=== PATIENT | female | born 1935 | race Caucasian/White ===

== ENCOUNTER 2017-06-30 12:35 | Inpatient (IN) | payer MEDICARE, SELFPAY ==
[2017-06-30] VITALS (10 sets, daily range): BP systolic 129–161; BP diastolic 54–75; PULSE 44–64; RESP 16–21; TEMP 36.6–36.7; O2SAT 94–99; BMI 39.9; BMI 39.7
--- NOTE | 2017-06-30 12:39 | EKG12_ITS ---
Test Reason : CP Blood Pressure : / mmHG Vent. Rate : 058 BPM Atrial Rate : 058 BPM P-R Int : 268 ms QRS Dur : 134 ms QT Int : 488 ms P-R-T Axes : 028 -15 117 degrees QTc Int : 479 ms Sinus bradycardia with 1st degree A-V block Non-specific intra-ventricular conduction block Abnormal ECG Confirmed by ERIN JIMENEZ, MARLENE ([id number]), manuscript editor SAMEERA CARNEY ([id number]) on 07/05/2017 2:07:37 PM Referred By: ABI Confirmed By:MARLENE KHAN MD
--- NOTE | 2017-06-30 12:39 | RAD_ITS ---
STUDY: X-RAY CHEST REASON FOR EXAM: Female, 82 years old. Chest pressure and shortness of breath. TECHNIQUE: Single AP portable view of the chest. COMPARISON: Comparison is made with prior study dated November 15, 2016. FINDINGS: EKG electrodes are seen. Mild degree of increased interstitial markings at the lung bases suggestive of scarring. This is improved since prior study. Hyperinflation. There is no demonstrated pleural abnormality. Sternal cerclage wires and vascular clips are present from a prior sternotomy and coronary artery bypass graft procedure (CABG). Normal mediastinum and seun. Normal visualized pulmonary arteries. There is atherosclerotic tortuosity of the aortic arch and descending thoracic aorta. There are diffuse degenerative changes of the visualized thoracic spine. There is degenerative osteoarthritis of the bilateral shoulders. There is no demonstrated abnormality of the visualized soft tissue structures of the upper abdomen. RAD/Chest 1 View (Portable) IMPRESSION: Mild increased interstitial markings suggestive of scarring. This has improved as compared to prior study. Electronically Signed: Manish Zapata MD at 13:07 EDT Tel [phone], Service support ,
[2017-06-30] MEDS: Aspirin 81 MG TAB.CHEW 324 MG PO (12:55)
[2017-06-30 13:05] LABS: Absolute Lymphocyte Count 1.65 X10^3/ul (0.83-4.51); Absolute Neutrophil Count 6.3 X10^3/uL (2.0-7.7); Basophil# 0.04 X10^3/uL; Basophil% 0.4 % (0-1); Eosinophils% 1.1 % (0-5); Hematocrit 34.6 % (37-47); Lymphocyte # 1.65 X10^3/ul (4.0); Lymphocyte % 18.3 % (19-41); Mean Corp Hgb Conc 31.8 g/gl (32-36); Mean Corpuscular Hgb 30.7 pg (27.0-32.0); Mean Corpuscular Volume 96.6 fL (81-99); Mean Platelet Vol. 12.3 fl (6.2-12.0); Monocyte# 0.95 X10^3/uL; Monocyte% 10.6 % (0-10); Neutrophil # 6.25 X10^3/uL (2.7-7.7); Neutrophil % 69.5 % (47-70); Platelet Count 216 K/mm3 (150-450); RBC Distribution Width CV 13.2 % (11.6-14.6); RBC Distribution Width SD 45.8 fl (35.1-43.9); Red Blood Count 3.58 M/mm3 (4.2-5.4)
[2017-06-30 13:06] LABS: POSITIVE COUNT NO; POSITIVE DIFFERENTIAL NO; POSITIVE MORPHOLOGY NO
[2017-06-30 13:19] LABS: Anion Gap 10 (5-15); BUN 37 mg/dL (7-18); BUN/Creat Ratio 23.3 RATIO (10-20); Calcium,Total 9.2 mg/dL (8.5-10.1); Chloride 105 mmol/L (98-107); Creatinine, Serum 1.59 mg/dL (0.55-1.02); EST Glomerular Filtration Rate 33 mL/min (>60); Est Glom Filt Rate - Afr Amer 40 mL/min (>60); Estimated Creatinine Clearance 20.27 ml/min; Glucose 132 mg/dL (74-106); Potassium 5.4 mmol/L (3.5-5.1); Sodium Level 140 mmol/L (136-145)
--- NOTE | 2017-06-30 13:36 | ED.VISSUMM ---
- ER Visit Summary Date of Service: 06/30/17 Chief Complaint: Chest pain History of Present Illness: The patient is a 82 F who is in the process of transitioning from Dr. Keith to Dr. Mason. Dr. Matteo West III is her primary care physician. She reports that 5 days ago at [employer] her had a syncopal episode and she was very upset. She developed a substernal heaviness that was 9 out of 10 severity. This lasted several hours. She was short of breath with this. She denies any diaphoresis, nausea, or vomiting. Patient reports that over the course the past 5 days she has an intermittent substernal pressure the last minutes at a time. Is 10 out of 10 at worst and she is pain-free currently. Is worsened by exertion or nervousness. States that it is relieved by rest. She reports that it makes her short of breath a tiny bit nauseated. No vomiting or diaphoresis. Physical Examination: Vitals: Stable. Afebrile. General: Well-nourished and well-developed. Head: Normocephalic atraumatic. Neck: Supple, no lymphadenopathy. No JVD. Nontender. Cardiovascular: Cardiac regular rhythm. No murmurs. Respiratory: No respiratory distress. Clear to auscultation bilaterally. Abdominal: Soft, nontender, nondistended, normal bowel sounds. No guarding, rebound, or peritoneal signs. Back: Nontender. Extremities: Nontender, 1+ pitting edema of her lower extremities bilaterally. Skin: Normal color, no rash. Neurologic: Alert and oriented ?3. Cranial nerves II through XII are intact. Normal strength and sensation. Psych: Normal affect. Test Results: EKG is sinus bradycardia at 58 with a first-degree AV block. She has T-wave inversions in leads I, aVL, V5, and V6. This is a change from November 152016. Chest x-ray shows chronic changes. CBC is remarkable for a hemoglobin of 11 and hematocrit of 34.6. Chem-7 is marked for potassium of 5.4, BUN of 37, creatinine 1.59, and glucose of 132. Initial troponin is 0.203. Emergency Department Course and Treatment: Patient was treated with aspirin. She is resting comfortably and is pain-free. Treatment Plan: Patient was discussed with Dr. Carpenter and Dr. Mason. She will be admitted to the hospital for further evaluation and treatment. Disposition: Admitted in serious condition. Impression: 1. Chest pain. 2. Indeterminate troponin. 3. DARRELL score 5. 4. Coagulopathy on Eliquis. This note was generated with [employer] dictation software. It may contain incorrect words, spelling, and punctuation that were not noted in review of the chart prior to signing ED Disposition - Plan for ED Patient: Chief Complaint: Shortness of Breath Referrals: Matteo West III, MD [Primary Care Provider] -
--- NOTE | 2017-06-30 13:39 | ED.DCSUM_ITS ---
- ER Visit Summary Date of Service: 06/30/17 Chief Complaint: Chest pain History of Present Illness: The patient is a 82 F who is in the process of transitioning from Dr. Keith to Dr. Mason. Dr. Matteo West III is her primary care physician. She reports that 5 days ago at [employer] her had a syncopal episode and she was very upset. She developed a substernal heaviness that was 9 out of 10 severity. This lasted several hours. She was short of breath with this. She denies any diaphoresis, nausea, or vomiting. Patient reports that over the course the past 5 days she has an intermittent substernal pressure the last minutes at a time. Is 10 out of 10 at worst and she is pain-free currently. Is worsened by exertion or nervousness. States that it is relieved by rest. She reports that it makes her short of breath a tiny bit nauseated. No vomiting or diaphoresis. Physical Examination: Vitals: Stable. Afebrile. General: Well-nourished and well-developed. Head: Normocephalic atraumatic. Neck: Supple, no lymphadenopathy. No JVD. Nontender. Cardiovascular: Cardiac regular rhythm. No murmurs. Respiratory: No respiratory distress. Clear to auscultation bilaterally. Abdominal: Soft, nontender, nondistended, normal bowel sounds. No guarding, rebound, or peritoneal signs. Back: Nontender. Extremities: Nontender, 1+ pitting edema of her lower extremities bilaterally. Skin: Normal color, no rash. Neurologic: Alert and oriented ?3. Cranial nerves II through XII are intact. Normal strength and sensation. Psych: Normal affect. Test Results: EKG is sinus bradycardia at 58 with a first-degree AV block. She has T-wave inversions in leads I, aVL, V5, and V6. This is a change from November 152016. Chest x-ray shows chronic changes. CBC is remarkable for a hemoglobin of 11 and hematocrit of 34.6. Chem-7 is marked for potassium of 5.4 , BUN of 37, creatinine 1.59, and glucose of 132. Initial troponin is 0.203. Emergency Department Course and Treatment: Patient was treated with aspirin. She is resting comfortably and is pain-free. Treatment Plan: Patient was discussed with Dr. Carpenter and Dr. Mason. She will be admitted to the hospital for further evaluation and treatment. Disposition: Admitted in serious condition. Impression: 1. Chest pain. 2. Indeterminate troponin. 3. DARRELL score 5. 4. Coagulopathy on Eliquis. This note was generated with [employer] dictation software. It may contain incorrect words, spelling, and punctuation that were not noted in review of the chart prior to signing ED Disposition - Plan for ED Patient: Chief Complaint: Shortness of Breath Referrals: Matteo West III, MD [Primary Care Provider] -
--- NOTE | 2017-06-30 14:26 | HP.PCM_ITS ---
Problem List (1) Atypical chest pain Status: Acute (2) HTN (hypertension) Status: Acute (3) Atrial fibrillation Status: Acute (4) CAD (coronary artery disease) Status: Chronic (5) Status post aorto-coronary artery bypass graft Status: Chronic (6) Status post bioprosthetic AVR Status: Chronic History of Present Illness Date of Admission: 06/30/17 Chief Complaint: Chest pressure for last 5 days The patient is a 82 year old F with extensive cardiac history including coronary artery disease status post stent in 2014 in the LAD, two-vessel CABG and bioprosthetic AVR in 12/2015, paroxysmal A. fib on Eliquis came to ER with chest pressure since Tuesday. Patient further said she was very upset when her had a syncope episode and felt like could not breathe chest pressure. Chest pressure is more on the right side feels heavy but gets exacerbated on mild exertion along with shortness of breath. She denies syncope, diaphoresis. Took sublingual nitrate and had mild relief. She denies any SC/severe anginal pains after cardiac surgery and perhaps has not stress or echo since cardiac surgery. She has chronic cough almost 1 and half years since cardiac surgery. No smoking history. Denies fever chills or URI symptoms. In ED, EKG shows sinus bradycardia with first-degree AV block, T inversion in lateral leads. Previous EKG in our record in November 2016 shows A. fib with T inversion in 1-lead V5. Troponin slightly elevated. [] Past Medical History Past Medical History (Chronic Problems): Chronic Problems Status post aorto-coronary artery bypass graft (Chronic) Status post bioprosthetic AVR (Chronic) CAD (coronary artery disease) (Chronic) CAD (coronary artery disease) (Chronic) Allergies atorvastatin [From Lipitor] Adverse Reaction (Verified 06/30/17 12:41) Pain in joints niacin Adverse Reaction (Verified 06/30/17 12:41) Pain in joints pregabalin [From Lyrica] Adverse Reaction (Verified 06/30/17 12:41) Other simvastatin [From Zocor] Adverse Reaction (Verified 06/30/17 12:41) Pain in joints Home Medications: Ambulatory Orders Medication Instructions Recorded Calcium Carbonate/Vitamin D3 1 each PO DAILY 02/24/16 [Calcium 500-Vit D3 600 Tablet] Clopidogrel Bisulfate [Plavix] 75 mg PO DINNER 02/24/16 Docusate Sodium [Colace] 240 mg PO BID 02/24/16 Magnesium 500 mg PO BID 02/24/16 Metoprolol(XL)Succ [Toprol Xl 25 mg PO DAILY 02/24/16 (Beta Kenisha)] Multivitamin [Multiple Vitamins] 1 each PO DAILY 02/24/16 Nitroglycerin [Nitrostat] 0.4 mg SUBLINGUAL Q5M PRN 02/24/16 [place]-3S/Dha/Epa/Fish Oil/D3 [Fish 1 each PO DAILY 02/24/16 Oil-Vit D3 Softgel] Omeprazole 20 mg PO DAILY 02/24/16 Lisinopril [Zestril] 10 mg PO QHS 11/15/16 Melatonin 10 mg PO QHS 11/15/16 Apixaban [Eliquis] 5 mg PO BID #60 tablet 11/16/16 Amiodarone HCl [Cordarone] 200 mg PO DAILY 06/30/17 Furosemide [Lasix] 20 mg PO BID 06/30/17 Lorazepam [Ativan] 0.5 mg PO BID PRN PRN 06/30/17 Surgical History: coronary bypass surgery Psychiatric History: No pertinent psych hx Smoking Status: Never smoker - *Family History Maternal History Items: Diabetes, Heart Disease Review of Systems Constitutional: Denies: Chills, Fever, Weight Change HEENT: Denies: Head Aches, Sinus Congestion, Sinus Drainage Cardiovascular: Reports: Chest Pain, Chest Pressure. Denies: Palpitations Respiratory: Reports: Cough, Shortness of breath upon exertion. Denies: Shortness of breath at rest, Sputum production Gastrointestinal: Denies: Abdominal Pain, Nausea, Vomiting Genitourinary: Denies: Dysuria Musculoskeletal: Denies: Joint Pain, Joint Tenderness Skin: Reports: - - Varicose veins. Denies: Rash, Wounds Neurological: Denies: Numbness, Tingling, Focal weakness Psychiatric: Denies: Anxiety, Depression, Homicidal Ideations, Suicidal Ideations Hematologic/ Lymphatic: Denies: Easy Bruising, Easy Bleeding VTE Information - Inpt Only VTE Present on Admission: No VTE Mechan Device Prophylaxis: None VTE Pharm Prophylaxis ordered?: No Reason prophylaxis not ordered:: Procedure Not Indicated - Already on Eliquis Patient Problems: Active and Suspected Problems Atypical chest pain (Acute) - Physical Exam General: Alert, Oriented x3, Cooperative HEENT: Atraumatic, PERRLA, EOMI, Normocephalic Neck: Supple, No JVD, Negative Carotid Bruits Lungs: Clear to auscultation, Normal air movement Cardiovascular: Regular rate, Regular Rhythm, Normal S1, Normal S2, No murmurs Abdomen: Bowel Sounds Present, Soft, Non Tender, Non-Distended Extremities: No cyanosis, Capillary Refill Less than 3 Seconds, Edema Skin: No rashes, No breakdown Musculoskeletal: No Tenderness to Palpation of Joints or Extremities Neurological: Cranial nerves II-XII grossly intact Psych/Mental Status: Normal Affect, Appropriate Vital Signs Temp Pulse Resp BP Pulse Ox 98.0 F 53 L 21 H 156/75 H 96 06/30/17 12:36 06/30/17 13:49 06/30/17 13:49 06/30/17 13:49 06/30/17 13:49 Oxygen Delivery Method Room Air Weight: 204 lb 2.369 oz Body Mass Index (BMI) 39.9 Laboratory Tests Past 24 Hrs 06/30/17 06/30/17 12:45 12:45 WBC 9.0 RBC 3.58 L Hgb 11.0 L Hct 34.6 L MCV 96.6 MCH 30.7 MCHC 31.8 L RDW 13.2 RDW Differential 45.8 H Plt Count 216 MPV 12.3 H Immature Gran % (Auto) 0.100 Neut % (Auto) 69.5 Lymph % (Auto) 18.3 L [place] % (Auto) 10.6 H Eos % (Auto) 1.1 Baso % (Auto) 0.4 Absolute Neuts (auto) 6.3 Absolute Lymphs (auto) 1.65 Total Counted Not Reportable Sodium 140 Potassium 5.4 H Chloride 105 Carbon Dioxide 25.0 Anion Gap 10 BUN 37 H Creatinine 1.59 H Estim Creat Clear Calc 20.27 Est GFR (MDRD) Af Amer 40 L Est GFR (MDRD) Non-Af 33 L BUN/Creatinine Ratio 23.3 H Glucose 132 H Calcium 9.2 Troponin I 0.203 H Assessment/Plan Active and Suspected Problems Atypical chest pain (Acute) The patient is a 82 year old F with extensive cardiac history including coronary artery disease status post stent in 2014 in the LAD, two-vessel CABG and bioprosthetic AVR in 12/2015, paroxysmal A. fib on Eliquis came to ER with chest pressure since Tuesday. Patient further said she was very upset when her had a syncope episode and felt like could not breathe chest pressure. Chest pressure is more on the right side feels heavy but gets exacerbated on mild exertion along with shortness of breath. She denies syncope, diaphoresis. Took sublingual nitrate and had mild relief. She denies any SC/severe anginal pains after cardiac surgery and perhaps has not stress or echo since cardiac surgery. She has chronic cough almost 1 and half years since cardiac surgery. No smoking history. Denies fever chills or URI symptoms. In ED, EKG shows sinus bradycardia with first-degree AV block, T inversion in lateral leads. Previous EKG in our record in November 2016 shows A. fib with T inversion in 1-lead V5. Troponin slightly elevated. Chest x-ray shows mild degree of increased interstitial markings at lung bases suggestive of scarring which is improved since prior study. Clinically, no history of COPD and smoking. 1. Atypical chest pressure with high suspicion of unstable angina: Patient is being admitted in PCU. Serial cardiac enzymes. EKG after [address] Chen already talked to Dr. gibson. Patient wants to transition her cardiac care from Dr. Keith to Dr. gibson as former is going to retire. Continue cardiac medications including Plavix, Eliquis, lisinopril and metoprolol. Patient is allergic to statin 2. Coronary artery disease status post two-vessel CABG, status post bioprosthetic porcine AVR, paroxysmal A. fib: Patient had echo in December 2015. We will try to get recent cardiac testing from Dr. Keith office. 3. Acute kidney injury with probably elevated creatinine from Lasix: Hold the Lasix. IV fluid normal saline at 75/h. Currently, 5.4, BUN 37, creatinine is 1.59, previous BUN 17 and creatinine 0.95 normal in November 2016 4. mild hyperkalemia: 5.4; probably from lisinopril. Kayexalate a small dose 15 g ordered. Repeat K in evening. Repeat BMP tomorrow a.m.. will hold lisinopril until his normal Other comorbidities include hypertension: Blood pressure is slightly elevated. Hydralazine p.o. until potassium is normal and lisinopril can be resumed DVT prophylaxis: Patient is already on Eliquis. Laboratory Results 06/30/17 12:45: WBC 9.0, RBC 3.58 L, Hgb 11.0 L, Hct 34.6 L, MCV 96.6, MCH 30.7 , MCHC 31.8 L, RDW 13.2, RDW Differential 45.8 H, Plt Count 216, MPV 12.3 H, Immature Gran % (Auto) 0.100, Neut % (Auto) 69.5, Lymph % (Auto) 18.3 L, [place] % (Auto) 10.6 H, Eos % (Auto) 1.1, Baso % (Auto) 0.4, Absolute Neuts (auto) 6.3, Absolute Lymphs (auto) 1.65, Total Counted Not Reportable 06/30/17 12:45: Sodium 140, Potassium 5.4 H, Chloride 105, Carbon Dioxide 25.0, Anion Gap 10, BUN 37 H, Creatinine 1.59 H, Estim Creat Clear Calc 20.27, Est GFR (MDRD) Af Amer 40 L, Est GFR (MDRD) Non-Af 33 L, BUN/Creatinine Ratio 23.3 H , Glucose 132 H, Calcium 9.2, Troponin I 0.203 H Clinical Impression(s) from Imaging Studies Chest X-Ray 06/30/17 12:39 IMPRESSION: Mild increased interstitial markings suggestive of scarring. This has improved as compared to prior study. Electronically Signed: Manish Zapata MD at 13:07 EDT Tel [phone], Service support , Code Visit OBSV E&M: [id number] Initial observation care L3
--- NOTE | 2017-06-30 14:42 | EKG12_ITS ---
Test Reason : NEW ADMIT Blood Pressure : / mmHG Vent. Rate : 053 BPM Atrial Rate : 053 BPM P-R Int : 276 ms QRS Dur : 120 ms QT Int : 510 ms P-R-T Axes : 000 203 007 degrees QTc Int : 478 ms Suspect arm lead reversal, interpretation assumes no reversal Sinus bradycardia with 1st degree A-V block Lateral infarct (cited on or before 15-NOV-2016) Inferior infarct , age undetermined Abnormal ECG When compared with ECG of 15-NOV-2016 09:27, Significant changes have occurred Confirmed by MANPREET JIMENEZ, OZ ([id number]), communications editor SAMEERA CARNEY ([id number]) on 07/04/2017 3:06:00 PM Referred By: SHAE Confirmed By:OZ CASE MD
[2017-06-30] MEDS: 0.9% Normal Saline 1,000 ML 75 ML IV (15:44)
[2017-06-30] MEDS: 0.9% NaCl Peripheral Flush Adult/Peds IV ×2 (15:46→21:53)
[2017-06-30] MEDS: Sodium Polystyrene Sulfonate 15 GM/60 ML UDC PO (15:46)
--- NOTE | 2017-06-30 15:48 | PCM.CONS.C ---
Reason for Consult Date of Consultation: 06/30/17 Reason for Consultation: Chest pressure. History of Present Illness: The patient is a 82 year old F with extensive cardiac history including coronary artery disease status post stent in 2014 in the LAD, two-vessel CABG and bioprosthetic AVR in 12/2015, paroxysmal A. fib on Eliquis came to ER with chest pressure since Tuesday. The patient apparently got upset due to an event that happened to the and started getting chest discomfort described as a pressure-like sensation radiating to the right side of her neck. She says that she is also been getting short of breath with minimal exertion over the last few days to weeks. She did take a sublingual nitroglycerin pill with some relief. She presented to the emergency room her blood pressure was noted to be somewhat elevated and blood work was done which demonstrated a mildly elevated troponin with no EKG changes. Cardiology was called from the emergency room and a decision was made to admit her. Currently she does not have any chest discomfort. [] Past Medical History Allergies/Adverse Reactions: Allergies atorvastatin [From Lipitor] Adverse Reaction (Verified 06/30/17 12:41) Pain in joints niacin Adverse Reaction (Verified 06/30/17 12:41) Pain in joints pregabalin [From Lyrica] Adverse Reaction (Verified 06/30/17 12:41) Other simvastatin [From Zocor] Adverse Reaction (Verified 06/30/17 12:41) Pain in joints Home Medications: Ambulatory Orders Medication Instructions Recorded Calcium Carbonate/Vitamin D3 1 each PO DAILY 02/24/16 [Calcium 500-Vit D3 600 Tablet] Clopidogrel Bisulfate [Plavix] 75 mg PO DINNER 02/24/16 Docusate Sodium [Colace] 240 mg PO BID 02/24/16 Magnesium 500 mg PO BID 02/24/16 Multivitamin [Multiple Vitamins] 1 each PO DAILY 02/24/16 Nitroglycerin [Nitrostat] 0.4 mg SUBLINGUAL Q5M PRN 02/24/16 [place]-3S/Dha/Epa/Fish Oil/D3 [Fish 1 each PO QODAY 02/24/16 Oil-Vit D3 Softgel] Omeprazole 20 mg PO DAILY 02/24/16 Lisinopril [Zestril] 10 mg PO QHS 11/15/16 Melatonin 10 mg PO QHS 11/15/16 Apixaban [Eliquis] 5 mg PO BID #60 tablet 11/16/16 Amiodarone HCl [Cordarone] 200 mg PO DAILY 06/30/17 Benzonatate [Tessalon Perle] 100 mg PO TID PRN 06/30/17 Furosemide [Lasix] 20 mg PO BID 06/30/17 Levothyroxine [Synthroid] 25 mcg PO DAILY 06/30/17 Lorazepam [Ativan] 0.5 mg PO BID PRN PRN 06/30/17 Metoprolol Tartrate [Lopressor 25 mg PO DAILY 06/30/17 (beta marivel)] Past Medical History (Chronic Problems): Chronic Problems Status post aorto-coronary artery bypass graft (Chronic) Status post bioprosthetic AVR (Chronic) CAD (coronary artery disease) (Chronic) CAD (coronary artery disease) (Chronic) Surgical History: coronary bypass surgery Psychiatric History: No pertinent psych hx - *Family History Maternal History Items: Diabetes, Heart Disease Smoking Status: Never smoker Alcohol: None Drugs: None Review of Systems - Review of Systems General: Denies: Fever, Night Sweats, Fatigue Cardiovascular: Reports: Chest Discomfort with Exertion, Shortness of Breath, Shortness of Breath at Rest, Shortness of Breath with Exertion. Denies: Chest Discomfort, Orthopnea, PND, Peripheral Edema, Palpitations, Lightheadedness, Dizziness, Near Syncope, Syncope Respiratory: Denies: Cough, Sputum Production, Hemoptysis Gastrointestinal: Denies: Hematemesis, Hematochezia, Melena Genitourinary: Denies: Dysuria, Hematuria Skin: Denies: Rash Subjectve: Pleasant lady in no apparent distress Objective: Vital Signs Temp Pulse Resp BP Pulse Ox 97.9 F 63 16 148/59 H 97 06/30/17 14:15 06/30/17 14:15 06/30/17 14:15 06/30/17 14:15 06/30/17 14:15 Oxygen Delivery Method Room Air Weight: 203 lb 7.787 oz Body Mass Index (BMI) 39.7 General: Awake, Alert, Oriented x 3 HEENT: PERRL, EOMI, Sclera Non Icteric Neck: Supple, Good ROM, No Lymph Node Enlargement Lungs: Clear to auscultation Cardiovascular: Regular Rhythm, Normal S1, Normal S2, No Rubs, No Gallops Murmur Murmur: Grade 1/6, Early Systolic, LLSB Vascular: No Carotid Bruits, Normal Femoral Pulses, Normal Radial Pulses, Normal Dorsalis Pedal Pulse, Normal Posterior Tibial Pulses Abdomen: Bowel Sounds Present, Soft, Non Tender, No HSM, No Organomegaly Extremities: No Cyanosis, No Clubbing, No edema Neurological: No Focal Motor or Sensory Deficit Rhythm: EKG: Normal sinus rhythm with a rate of 53 bpm and 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 Assessment/Plan 1. Chest pain-new onset angina. Patient presents with chest discomfort which is concerning for new onset angina. She did have concomitant elevation of her blood pressure but with her abnormal cardiac enzymes my recommendation would be for us to further evaluate the above with a cardiac catheterization. Her bypass records will be obtained from her primary plumber gasfitter's office and after 24-48 hours of the Eliquis the above would be performed. I discussed this with the patient and her and daughter and they understand and I in agreement. I did suggest to them that more than likely this would have to be Tuesday. Certainly if she continues to have chest discomfort at rest with EKG changes then we may need to have this performed sooner. 2. Hypertension Her blood pressure appears to be somewhat elevated. She does have mild renal dysfunction and I recommend holding off on her FRANCISCO inhibitor at this particular time a calcium channel marivel such as amlodipine can be substituted to improve her blood pressure she would also continue on her low dose of the beta-marivel. 3. Paroxysmal atrial fibrillation She does have a history of paroxysmal atrial fibrillation. She is maintaining sinus rhythm at this time on the amiodarone as well as the beta-marivel. She is on Eliquis and I would recommend holding off on the Eliquis at this time until her coronary anatomy has been further evaluated. 4. Valvular heart disease status post aortic valve replacement She is status post aortic valve replacement 2 years ago. I do not think that this is contributing to her current problems but it may be good idea to obtain an echocardiogram to assess the gradient across the aortic valve. This can be compared to any previous echocardiogram that was performed. Depending on the findings further recommendations will be made. 5. Risk factor modification With a history of coronary artery disease she needs to be under risk factor modification with lipid lowering aggressively as well as dietary modification. I have discussed the above with her as well. Thank you for allowing me to participate in the care of your patient. Please don't hesitate to call if any issues arise
--- NOTE | 2017-06-30 15:57 | ECHOD_ITS ---
Reason For Study: MURMUR Procedure This was a 2D Doppler, Color Flow transthoracic echocardiogram. Exam performed portable in patient room. Left Ventricle Normal LV size. The estimated ejection fraction is 45 %. Mild segmental systolic dysfunction (see wall motion). Transmitral diastolic flow velocities suggest severe (stage 3) diastolic dysfunction. [place] : Hypokinetic. Mid-anteroseptal : Hypokinetic. Mid-Anterior : Hypokinetic. The rest of the wall segments are normal. Right Ventricle Normal RV size. Normal systolic function. Atria The left atrium is moderately enlarged. The right atrium is mildly enlarged. Mitral Valve There is moderate mitral annular calcification. Mild-Moderate (1-2+) eccentric mitral valve insufficiency. Tricuspid Valve Normal tricuspid valve. Mild to moderate (1-2+) tricuspid valve insufficiency. Pulmonary artery systolic pressure is 48 mmHg. Aortic Valve There is no aortic stenosis. Mild-Moderate (1-2+) eccentric aortic valve insufficiency. Bioprosthetic aortic valve. Pulmonic Valve Normal pulmonic valve. Mild-Moderate (1-2+) pulmonic valve insufficiency. Great Vessels Normal aortic root. The pulmonary artery is normal size. Inferior vena cava collapse with respiration. Pericardium/Pleural No pericardial effusion. MMode/2D Measurements & Calculations LVIDd: 5.5 cm IVSd: 0.94 cm LVOT diam: 2.2 cm LVIDs: 3.5 cm LVPWd: 1.0 cm LVOT area: 3.6 cm2 RVDd: 4.1 cm FS: 35.9 % Ao root diam: 2.7 cm LAV(MOD-bp): 85.9 ml LA A4 area: 29.1 cm2 LAV(MOD-bp) Indexed: 45.7 ml/m2 LAV(MOD-sp2): 61.3 ml LAV(MOD-sp4): 94.8 ml RA A4 area: 22.9 cm2 Doppler Measurements & Calculations MV E max [place]: 137.1 cm/sec Lat Peak E' [place]: 3.1 cm/sec Med Peak E' [place]: 2.8 cm/sec MV A max [place]: 70.2 cm/sec E/E' lat: 44.2 E/E' med: 48.8 MV E/A: 2.0 Ao V2 max: 188.3 cm/sec AI max [place]: 176.9 cm/sec LV V1 max: 110.9 cm/sec Ao max P.2 mmHg AI max P.6 mmHg LV V1 max P.9 mmHg Ao V2 mean: 119.1 cm/sec AI dec slope: 121.5 cm/sec2 LV V1 mean P.5 mmHg Ao mean P.6 mmHg AI P1/2t: 426.5 msec LV V1 mean: 73.7 cm/sec Ao V2 VTI: 38.3 cm LV V1 VTI: 23.9 cm CATHERINE(I,D): 2.3 cm2 CATHERINE(V,D): 2.1 cm2 SV(LVOT): 87.0 ml PA V2 max: 96.3 cm/sec PI end-d cub[place]: 117.9 cm/sec TR max cub[place]: 328.4 cm/sec TR max P.1 mmHg Interpretation Summary Normal LV size. The estimated ejection fraction is 45 %. Mild segmental systolic dysfunction (see wall motion). Transmitral diastolic flow velocities suggest severe (stage 3) diastolic dysfunction The left atrium is moderately enlarged. Mild to moderate (1-2+) tricuspid valve insufficiency. Bioprosthetic aortic valve. Mild-Moderate (1-2+) eccentric aortic valve insufficiency. Ordering Physician: Jose Mason Referring Physician: ADAIR RODRIGUEZ Performed By: Jazzy Skelton, LINA, RVT
--- NOTE | 2017-06-30 15:59 | CON.PCM_ITS ---
Reason for Consult Date of Consultation: 06/30/17 Reason for Consultation: Chest pressure. History of Present Illness: The patient is a 82 year old F with extensive cardiac history including coronary artery disease status post stent in 2014 in the LAD, two-vessel CABG and bioprosthetic AVR in 12/2015, paroxysmal A. fib on Eliquis came to ER with chest pressure since Tuesday. The patient apparently got upset due to an event that happened to the and started getting chest discomfort described as a pressure-like sensation radiating to the right side of her neck. She says that she is also been getting short of breath with minimal exertion over the last few days to weeks. She did take a sublingual nitroglycerin pill with some relief. She presented to the emergency room her blood pressure was noted to be somewhat elevated and blood work was done which demonstrated a mildly elevated troponin with no EKG changes. Cardiology was called from the emergency room and a decision was made to admit her. Currently she does not have any chest discomfort. [] Past Medical History Allergies/Adverse Reactions: Allergies atorvastatin [From Lipitor] Adverse Reaction (Verified 06/30/17 12:41) Pain in joints niacin Adverse Reaction (Verified 06/30/17 12:41) Pain in joints pregabalin [From Lyrica] Adverse Reaction (Verified 06/30/17 12:41) Other simvastatin [From Zocor] Adverse Reaction (Verified 06/30/17 12:41) Pain in joints Home Medications: Ambulatory Orders Medication Instructions Recorded Calcium Carbonate/Vitamin D3 1 each PO DAILY 02/24/16 [Calcium 500-Vit D3 600 Tablet] Clopidogrel Bisulfate [Plavix] 75 mg PO DINNER 02/24/16 Docusate Sodium [Colace] 240 mg PO BID 02/24/16 Magnesium 500 mg PO BID 02/24/16 Multivitamin [Multiple Vitamins] 1 each PO DAILY 02/24/16 Nitroglycerin [Nitrostat] 0.4 mg SUBLINGUAL Q5M PRN 02/24/16 [place]-3S/Dha/Epa/Fish Oil/D3 [Fish 1 each PO QODAY 02/24/16 Oil-Vit D3 Softgel] Omeprazole 20 mg PO DAILY 02/24/16 Lisinopril [Zestril] 10 mg PO QHS 11/15/16 Melatonin 10 mg PO QHS 11/15/16 Apixaban [Eliquis] 5 mg PO BID #60 tablet 11/16/16 Amiodarone HCl [Cordarone] 200 mg PO DAILY 06/30/17 Benzonatate [Tessalon Perle] 100 mg PO TID PRN 06/30/17 Furosemide [Lasix] 20 mg PO BID 06/30/17 Levothyroxine [Synthroid] 25 mcg PO DAILY 06/30/17 Lorazepam [Ativan] 0.5 mg PO BID PRN PRN 06/30/17 Metoprolol Tartrate [Lopressor 25 mg PO DAILY 06/30/17 (beta marivel)] Past Medical History (Chronic Problems): Chronic Problems Status post aorto-coronary artery bypass graft (Chronic) Status post bioprosthetic AVR (Chronic) CAD (coronary artery disease) (Chronic) CAD (coronary artery disease) (Chronic) Surgical History: coronary bypass surgery Psychiatric History: No pertinent psych hx - *Family History Maternal History Items: Diabetes, Heart Disease Smoking Status: Never smoker Alcohol: None Drugs: None Review of Systems - Review of Systems General: Denies: Fever, Night Sweats, Fatigue Cardiovascular: Reports: Chest Discomfort with Exertion, Shortness of Breath, Shortness of Breath at Rest, Shortness of Breath with Exertion. Denies: Chest Discomfort, Orthopnea, PND, Peripheral Edema, Palpitations, Lightheadedness, Dizziness, Near Syncope, Syncope Respiratory: Denies: Cough, Sputum Production, Hemoptysis Gastrointestinal: Denies: Hematemesis, Hematochezia, Melena Genitourinary: Denies: Dysuria, Hematuria Skin: Denies: Rash Subjectve: Pleasant lady in no apparent distress Objective: Vital Signs Temp Pulse Resp BP Pulse Ox 97.9 F 63 16 148/59 H 97 06/30/17 14:15 06/30/17 14:15 06/30/17 14:15 06/30/17 14:15 06/30/17 14:15 Oxygen Delivery Method Room Air Weight: 203 lb 7.787 oz Body Mass Index (BMI) 39.7 General: Awake, Alert, Oriented x 3 HEENT: PERRL, EOMI, Sclera Non Icteric Neck: Supple, Good ROM, No Lymph Node Enlargement Lungs: Clear to auscultation Cardiovascular: Regular Rhythm, Normal S1, Normal S2, No Rubs, No Gallops Murmur Murmur: Grade 1/6, Early Systolic, LLSB Vascular: No Carotid Bruits, Normal Femoral Pulses, Normal Radial Pulses, Normal Dorsalis Pedal Pulse, Normal Posterior Tibial Pulses Abdomen: Bowel Sounds Present, Soft, Non Tender, No HSM, No Organomegaly Extremities: No Cyanosis, No Clubbing, No edema Neurological: No Focal Motor or Sensory Deficit Rhythm: EKG: Normal sinus rhythm with a rate of 53 bpm and 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 Assessment/Plan 1. Chest pain-new onset angina. * Patient presents with chest discomfort which is concerning for new onset angina. She did have concomitant elevation of her blood pressure but with her abnormal cardiac enzymes my recommendation would be for us to further evaluate the above with a cardiac catheterization. Her bypass records will be obtained from her primary propulsion generator repairer's office and after 24-48 hours of the Eliquis the above would be performed. I discussed this with the patient and her and daughter and they understand and I in agreement. I did suggest to them that more than likely this would have to be Tuesday. Certainly if she continues to have chest discomfort at rest with EKG changes then we may need to have this performed sooner. 2. Hypertension * Her blood pressure appears to be somewhat elevated. She does have mild renal dysfunction and I recommend holding off on her FRANCISCO inhibitor at this particular time a calcium channel marivel such as amlodipine can be substituted to improve her blood pressure she would also continue on her low dose of the beta-marivel. * 3. Paroxysmal atrial fibrillation * She does have a history of paroxysmal atrial fibrillation. She is maintaining sinus rhythm at this time on the amiodarone as well as the beta- marivel. She is on Eliquis and I would recommend holding off on the Eliquis at this time until her coronary anatomy has been further evaluated. 4. 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 I do not think that this is contributing to her current problems but it may be good idea to obtain an echocardiogram to assess the gradient across the aortic valve. This can be compared to any previous echocardiogram that was performed. Depending on the findings further recommendations will be made. 5. Risk factor modification * With a history of coronary artery disease she needs to be under risk factor modification with lipid lowering aggressively as well as dietary modification. I have discussed the above with her as well. * Thank you for allowing me to participate in the care of your patient. Please don't hesitate to call if any issues arise
[2017-06-30 16:24] LABS: BNP,B-Type NATRIURETIC PEPTIDE 1850.7 pg/mL (0-100)
[2017-06-30] MEDS: Clopidogrel Bisulfate 75 MG Tablet PO (16:57)
[2017-06-30 18:48] LABS: Potassium 4.7 mmol/L (3.5-5.1)
[2017-06-30 19:23] LABS: Magnesium 2.5 mg/dL (1.6-2.6)
[2017-06-30] MEDS: Ondansetron 4 MG/2 ML Vial IV (21:53)
[2017-06-30] MEDS: MELATONIN 10 MG TABLET PO (21:53)
[2017-06-30] MEDS: Magnesium Oxide 400 MG Tablet PO (21:53)
[2017-07-01] VITALS (12 sets, daily range): BP systolic 118–137; BP diastolic 48–60; PULSE 47–84; RESP 14–16; TEMP 36.4–36.8; O2SAT 92–97
[2017-07-01 06:29] LABS: AST(SGOT) 48 U/L (15-37); Alanine Aminotransfer ALT/SGPT 49 U/L (13-56); Albumin, Serum 3.3 g/dL (3.2-5.0); Alkaline Phosphatase 115 U/L (45-117); Anion Gap 11 (5-15); BUN 40 mg/dL (7-18); BUN/Creat Ratio 25.6 RATIO (10-20); Calcium,Total 8.3 mg/dL (8.5-10.1); Chloride 105 mmol/L (98-107); Cholesterol 146 mg/dL (200); Creatinine, Serum 1.56 mg/dL (0.55-1.02); EST Glomerular Filtration Rate 34 mL/min (>60); Est Glom Filt Rate - Afr Amer 41 mL/min (>60); Estimated Creatinine Clearance 20.66 ml/min; Globulin 3.4 g/dL (2.2-4.2); Glucose 131 mg/dL (74-106); High Density Lipoprotein 38 mg/dL; Potassium 4.2 mmol/L (3.5-5.1); Protein, Total 6.7 g/dL (6.4-8.2); Sodium Level 141 mmol/L (136-145); Triglycerides 117 mg/dL; Very Low Density Lipoprotein 23 mg/dL (5-40)
--- NOTE | 2017-07-01 06:52 | PN.CARD_ITS ---
Subjectve: Patient seen and evaluated. Had uneventful night. No chest pain Objective: Vital Signs Temp Pulse Resp BP Pulse Ox 97.6 F L 52 L 14 129/60 H 97 07/01/17 03:50 07/01/17 03:50 07/01/17 03:50 07/01/17 03:50 07/01/17 03:50 Oxygen Delivery Method Room Air Weight: 203 lb 7.787 oz Body Mass Index (BMI) 39.7 Intake and Output for Last 24 Hours 06/29/17 06/30/17 07/01/17 23:59 23:59 23:59 Intake Total 559 / 559 1147 / 1147 Balance 559 / 559 1147 / 1147 General: Awake, Alert, Oriented x 3 HEENT: PERRL, EOMI, Sclera Non Icteric Neck: Supple, Good ROM, No Lymph Node Enlargement Lungs: Clear to auscultation Cardiovascular: Regular Rhythm, Normal S1, Normal S2, No Rubs, No Gallops Murmur Murmur: Grade 1/6, Early Systolic, LLSB Vascular: No Carotid Bruits, Normal Femoral Pulses, Normal Radial Pulses, Normal Dorsalis Pedal Pulse, Normal Posterior Tibial Pulses Abdomen: Bowel Sounds Present, Soft, Non Tender, No HSM, No Organomegaly Extremities: No Cyanosis, No Clubbing, No edema Neurological: No Focal Motor or Sensory Deficit 06/30/17 15:45: Troponin I 0.219 H 06/30/17 17:55: Magnesium 2.5 06/30/17 17:55: Potassium 4.7 06/30/17 21:30: Troponin I 0.178 H 07/01/17 05:44: Sodium 141, Potassium 4.2, Chloride 105, Carbon Dioxide 25.0, Anion Gap 11, BUN 40 H, Creatinine 1.56 H, Est GFR (MDRD) Af Amer 41 L, Est GFR (MDRD) Non-Af 34 L, BUN/Creatinine Ratio 25.6 H, Glucose 131 H, Calcium 8.3 L, Total Bilirubin 0.70, Triglycerides 117, Cholesterol 146, LDL Cholesterol 85, VLDL Cholesterol 23, HDL Cholesterol 38 L Rhythm: EKG: ECHO: Stress Test: Cardiac Cath: PCI: CT Surgery: Holter monitor: EPS: PPM: CXR: Chest CT Scan: Medical Necessity - Tobacco Use Smoking Status: Never smoker Assessment/Plan 1. Chest pain-new onset angina. * Patient presents with chest discomfort which is concerning for new onset angina. She did have concomitant elevation of her blood pressure but with her abnormal cardiac enzymes my recommendation would be for us to further evaluate the above with a cardiac catheterization. Her bypass records will be obtained from her primary structural steel engineer's office and after 24-48 hours of the Eliquis the above would be performed. I discussed this with the patient and her and daughter and they understand and I in agreement. I did suggest to them that more than likely this would have to be Tuesday. Certainly if she continues to have chest discomfort at rest with EKG changes then we may need to have this performed sooner. 2. Hypertension * Her blood pressure appears to be somewhat elevated. She does have mild renal dysfunction and I recommend holding off on her FRANCISCO inhibitor at this particular time a calcium channel marivel such as amlodipine can be substituted to improve her blood pressure she would also continue on her low dose of the beta-marivel. * 3. Paroxysmal atrial fibrillation * She does have a history of paroxysmal atrial fibrillation. She is maintaining sinus rhythm at this time on the amiodarone as well as the beta- marivel. She is on Eliquis and I would recommend holding off on the Eliquis at this time until her coronary anatomy has been further evaluated. 4. 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 I do not think that this is contributing to her current problems but it may be good idea to obtain an echocardiogram to assess the gradient across the aortic valve. This can be compared to any previous echocardiogram that was performed. Depending on the findings further recommendations will be made. 5. Risk factor modification * With a history of coronary artery disease she needs to be under risk factor modification with lipid lowering aggressively as well as dietary modification. I have discussed the above with her as well. 6 congestive heart failure diastolic * She appears to have some fluid retention which is likely related to congestive heart failure we will review her echocardiogram today and make further recommendations. * Thank you for allowing me to participate in the care of your patient. Please don't hesitate to call if any issues arise
[2017-07-01] MEDS: 0.9% Normal Saline 1,000 ML 75 ML IV (09:06)
[2017-07-01] MEDS: Calcium Carb/Vitamin D 1 TABLET Tablet PO (09:07)
[2017-07-01] MEDS: Aspirin 81 MG TAB.CHEW PO (09:07)
[2017-07-01] MEDS: Magnesium Oxide 400 MG Tablet PO ×2 (09:08→22:45)
[2017-07-01] MEDS: Pantoprazole Sodium 20 MG Tablet PO (09:08)
[2017-07-01] MEDS: Amiodarone 200 MG Tablet PO (09:08)
[2017-07-01] MEDS: amLODIPine 5 MG Tablet PO (09:09)
[2017-07-01] MEDS: Metoprolol(XL)Succ 25 MG Tablet PO (09:09)
[2017-07-01] MEDS: 0.9% NaCl Peripheral Flush Adult/Peds IV (09:12)
--- NOTE | 2017-07-01 09:40 | PN_ITS ---
Patient Problems: Active and Suspected Problems Atypical chest pain (Acute) Subjective: Chief complaint: Follow-up after admission for chest pain/angina pectoris, hyperkalemia and acute kidney injury. Patient seen and examined. No acute events overnight. Today, she has no more chest pain or pressure. Denies shortness of breath. Denied palpitation, dizziness or lightheadedness. Her vital signs are stable, has been bradycardic.. - Physical Exam General: Alert, Oriented x3, Cooperative, No apparent distress HEENT: Atraumatic, PERRLA, EOMI Oral: Moist Mucosa, No Gingival or Mucosal Lesions/ Ulcerations Neck: Supple, No JVD, Negative Carotid Bruits, Trachea Midline, Thyroid Normal Size and Texture Lungs: Clear to auscultation, Normal air movement, No rhonchi, No wheeze, No rales Cardiovascular: Normal S1, Normal S2, No murmurs, PMI Normal, Bradycardic, Irregular Rate Abdomen: Bowel Sounds Present, Soft, Non Tender, Non-Distended, No Hepato- splenomegaly Extremities: No clubbing, No cyanosis, No edema Skin: No rashes, No breakdown Lymphatic: No Cervical, Supraclavicular, or Inguinal Adenopathy Neurological: Cranial nerves II-XII grossly intact, Motor Exam 5/5 strength throughout Psych/Mental Status: Normal Affect, Appropriate, Alert and oriented to time, place, person, mood and affect Vital Signs Temp Pulse Resp BP Pulse Ox 98.3 F 53 L 14 119/51 L 96 07/01/17 09:17 07/01/17 09:17 07/01/17 09:17 07/01/17 09:17 07/01/17 09:17 Oxygen Delivery Method Room Air Weight: 203 lb 7.787 oz Body Mass Index (BMI) 39.7 Intake and Output for Last 24 Hours 06/29/17 06/30/17 07/01/17 23:59 23:59 23:59 Intake Total 559 / 559 1147 / 1147 Balance 559 / 559 1147 / 1147 Laboratory Tests Past 24 Hrs 06/30/17 06/30/17 06/30/17 15:45 17:55 17:55 Sodium Potassium 4.7 Chloride Carbon Dioxide Anion Gap BUN Creatinine Estim Creat Clear Calc Est GFR (MDRD) Af Amer Est GFR (MDRD) Non-Af BUN/Creatinine Ratio Glucose Calcium Magnesium 2.5 Total Bilirubin AST ALT Alkaline Phosphatase Troponin I 0.219 H Total Protein Albumin Globulin Albumin/Globulin Ratio Triglycerides Cholesterol LDL Cholesterol VLDL Cholesterol HDL Cholesterol TSH 06/30/17 07/01/17 21:30 05:44 Sodium 141 Potassium 4.2 Chloride 105 Carbon Dioxide 25.0 Anion Gap 11 BUN 40 H Creatinine 1.56 H Estim Creat Clear Calc 20.66 Est GFR (MDRD) Af Amer 41 L Est GFR (MDRD) Non-Af 34 L BUN/Creatinine Ratio 25.6 H Glucose 131 H Calcium 8.3 L Magnesium Total Bilirubin 0.70 AST 48 H ALT 49 Alkaline Phosphatase 115 Troponin I 0.178 H Total Protein 6.7 Albumin 3.3 Globulin 3.4 Albumin/Globulin Ratio 1.0 Triglycerides 117 Cholesterol 146 LDL Cholesterol 85 VLDL Cholesterol 23 HDL Cholesterol 38 L TSH 10.50 H Medical Necessity - Tobacco Use Smoking Status: Never smoker Assessment/Plan Active and Suspected Problems Atypical chest pain (Acute) This is an 82 years old female patient presented to the emergency room because of chest pressure/pain and was admitted for angina pectoris, found to have mild hyperkalemia and acute kidney injury as well as elevated TSH in context of history of hypothyroidism and she is on levothyroxine replacement. #1 chest pressure/angina pectoris: EKG revealed sinus rhythm with first-degree AV block, no acute ST elevation. Troponin is trending down. Today, patient is chest pain-free. Vital signs are stable. She is on aspirin, Plavix, metoprolol. Chest x-ray showed no acute findings. Cardiology consulted, plan for cardiac catheterization on Tuesday. #2 acute kidney injury: Probably due to diuretics, patient has been on Lasix and Aldactone. Baseline kidney function is normal. Admission creatinine was 1.59, today's creatinine is 1.56, slightly improved. Lasix and Aldactone held. Plan to continue gentle IV fluids for hydration, repeat BMP tomorrow morning. #3 mild hyperkalemia: Again, it is secondary to Aldactone. No acute changes. Admission potassium was 5.4, today's potassium is 4.2. #4 CAD status post CABG and stents: Plan as above, continue aspirin, Plavix and metoprolol. #5 status post aortic valve replacement with bioprosthetic valve: 2D echocardiogram performed today, awaiting results. #6 chronic atrial fibrillation: Rate has been under control, and the 50s, she is asymptomatic. Continue metoprolol for rate control, Eliquis held because she is going for heart cath on Tuesday. #7 hypertension: Blood pressure stable, continue current medications. #8 hypothyroidism: TSH is elevated, 10.50. Patient has been on levothyroxine and also she has been on amiodarone. Will check free and total T4 as well as free T3. #9 DVT prophylaxis: SCDs. This note was generated with [employer] dictation software. It may contain incorrect words, spelling, and punctuation that were not noted in checking the note before signing. Code Visit Inpatient E&M: 51089 Subs Hosp L2
[2017-07-01 10:19] LABS: Free T3 1.4 pg/mL (2.18-3.98); T4 Free Direct 1.13 ng/dL (0.76-1.46); T4 Total, Thyroxin 10.5 ug/dL (4.8-13.9)
[2017-07-01] MEDS: Clopidogrel Bisulfate 75 MG Tablet PO (18:28)
[2017-07-01] MEDS: Temazepam 15 MG Capsule PO (22:45)
[2017-07-02] VITALS (13 sets, daily range): BP systolic 105–137; BP diastolic 46–102; PULSE 49–71; RESP 14–18; TEMP 36.6–36.8; O2SAT 93–95
[2017-07-02] MEDS: 0.9% Normal Saline 1,000 ML 50 ML IV ×2 (04:50→22:23)
[2017-07-02] MEDS: Levothyroxine 25 MCG TABLET PO (06:26)
--- NOTE | 2017-07-02 08:04 | PCM.PROGNOTE ---
Patient Problems: Active and Suspected Problems Atypical chest pain (Acute) Subjective: The patient is an 82-year-old female with a past medical history of coronary artery disease, two-vessel CABG, PTCA with stent in 2014 to the LAD, bioprosthetic aortic valve replacement in December 2015, paroxysmal atrial fibrillation, chronic anticoagulation with Eliquis and anxiety who presented to the [facility] emergency department on 06/30/2017 complaining of chest discomfort. EKG in the emergency room showed a first-degree AV block with T-wave inversion in the lateral precordial leads. Chest x-ray showed mild increased interstitial markings suggestive of scarring. CBC showed a mildly decreased hemoglobin at 11 with normochromic normocytic indices and a normal RDW. Platelets and white blood cell count were within normal limits. Calcium was increased at 5.4 and the BUN was 37 with a creatinine of 1.59. Troponin was elevated at 0.219 and a BNP was 1850. She was admitted to a monitored bed on PCU with suspected unstable angina, acute kidney injury and hyperkalemia. Lisinopril was held and consult was ordered with Dr. Mason. Dr. Mason recommended cardiac catheterization and the patient was agreeable. Eliquis was held in preparation for cardiac catheterization on 07/04/17. Echocardiogram was obtained and showed a ejection fraction of 45% with mild segmental systolic dysfunction. Transmitral diastolic flow velocities suggested severe, stage III, diastolic dysfunction. The left atrium was moderately enlarged and there was mild to moderate TR. A bioprosthetic aortic valve was in position and there was 1-2+ eccentric aortic valve insufficiency. All lab and events of the past 24 hours been reviewed. TSH was elevated at 10.5 and the patient has been started on levothyroxine 25 mcg daily. T4 was normal. LDL is 85 and the HDL is 38. Subjective: Denies any chest discomfort. She feels somewhat lightheaded when she first gets out of bed in the morning and feels weak and somewhat short of breath with exertion. She tells me for the past few months she has been unable to get her heart rate up above 52, even with exertion. Review of telemetry shows sinus bradycardia with wide complex ventricular escape beats (longest run is 3 beats) at rates between 30 and 40. Denies orthopnea, no palpitations. Objective: General: alert, oriented X3, NAD, appropriate with normal affect, sitting in a chair watching TV Neck: supple, trachea midline, carotids have brisk upstroke and mildly decreased pulse volume, no JVD, carotid bruit on the R but, may be due to radiation of the MM Lungs: CTA, symmetric chest expansion, not tachypneic, able to lie flat with no respiratory distress, no rales, no wheezes Heart: Bradycardic rate in the 40's with regular rhythm, normal S1, normal S2, 2/6 systolic murmur at the second ICS, no gallop, no rub, PMI is on the midclavicular line Abdomen: soft, NT, ND, BS's present Extremities: no edema, no calf tenderness, peripheral pulses are decreased - Physical Exam Vital Signs Temp Pulse Resp BP Pulse Ox 97.8 F 66 16 105/48 L 93 07/02/17 04:30 07/02/17 07:00 07/02/17 04:30 07/02/17 04:30 07/02/17 04:30 Oxygen Delivery Method Room Air Weight: 203 lb 7.787 oz Body Mass Index (BMI) 39.7 Intake and Output for Last 24 Hours 06/30/17 07/01/17 07/02/17 23:59 23:59 23:59 Intake Total 559 / 559 1637 / 1637 963 / 963 Balance 559 / 559 1637 / 1637 963 / 963 Laboratory Tests Past 24 Hrs 07/01/17 05:44 Free T4 1.13 Thyroxine (T4) 10.5 Free T3 pg/dL 1.4 L Medical Necessity - Tobacco Use Smoking Status: Never smoker Assessment/Plan Active and Suspected Problems Atypical chest pain (Acute) Impressions 1. NSTEMI 2. EL 3. Hyperkalemia-resolved 4. elevated TSH - started on Levothyroxine 5. S/P bioprosthetic AV 6. CAD 7. PVC's and idioventricular rhythm - usually only for 3 beats 8. Paroxysmal atrial fibrillation 9. Chronic anticoagulation with Eliquis 10. Anxiety/insomnia Will discuss the wide complex escape beats/idioventricular rhythm with Dr. Hoffman. Consider decreasing the beta marivel dose. plan on cardiac cath on Tuesday recheck lab in the AM She has NUÑEZ and fatigue with exertion......possibly due to CAD but may also be due to inability to increase HR due to amiodarone and Metoprolol....if no significant CAD on the cath may need to consider a trial of stopping the metoprolol or decreasing the amiodarone to 100 mg daily. She has been started on levothyroid for increased TSH Eliquis is on hold in preparation for the cath on Tuesday Code Visit Inpatient E&M: 94001 Subs Hosp L2
[2017-07-02] MEDS: Aspirin 81 MG TAB.CHEW PO (09:16)
[2017-07-02] MEDS: Amiodarone 200 MG Tablet PO (09:16)
[2017-07-02] MEDS: Magnesium Oxide 400 MG Tablet PO ×2 (09:16→22:13)
[2017-07-02] MEDS: Calcium Carb/Vitamin D 1 TABLET Tablet PO (09:16)
[2017-07-02] MEDS: Pantoprazole Sodium 20 MG Tablet PO (09:17)
[2017-07-02] MEDS: amLODIPine 5 MG Tablet PO (09:17)
--- NOTE | 2017-07-02 12:36 | PCM.PN.CARD ---
Subjectve: The patient states her main concern remains shortness of breath and dyspnea especially with exertional activity. She denies any ongoing chest discomfort, orthopnea, or worsening peripheral pitting edema. Objective: Vital Signs Temp Pulse Resp BP Pulse Ox 98.3 F 53 L 14 135/46 H 94 07/02/17 09:15 07/02/17 10:57 07/02/17 09:15 07/02/17 09:15 07/02/17 09:15 Oxygen Delivery Method Room Air Weight: 203 lb 7.787 oz Body Mass Index (BMI) 39.7 Intake and Output for Last 24 Hours 06/30/17 07/01/17 07/02/17 23:59 23:59 23:59 Intake Total 559 / 559 1637 / 1637 1210 / 1210 Balance 559 / 559 1637 / 1637 1210 / 1210 General: Awake, Alert, Oriented x 3, Cooperative, No Acute Distress Neck: No JVD Lungs: Clear to auscultation Cardiovascular: Regular Rhythm, Premature Ectopic Beats, Normal S1, Normal S2 Murmur Murmur: Grade 2/6, Soft, Early Systolic, LLSB Abdomen: Bowel Sounds Present, Soft, Non Tender Extremities: No edema Rhythm: Minus rhythm; PVCs; one 4 beat episode of an idioventricular rhythm-slow ECHO: 07/01/2017: Left ventricle: Regional wall motion abnormalities: LVEF 45%: Decreased diastolic compliance: Moderate left atrial enlargement: Mild right atrial enlargement: Moderate mitral annular calcification with mild to moderate MR: Mild to moderate TR: Able bioprosthetic aortic valve: Mild to moderate AI: Mild to moderate PI: Estimated RV systolic pressure [address] Surgery: 01/29/2016: [place], [place]: VALERIO to the LAD and SVG to the PDA; patch repair the ascending aorta with autologous pericardium; aortic valve replacement with a stentless #23 Solo pericardial valve Medical Necessity - Tobacco Use Smoking Status: Never smoker Assessment/Plan 1. Non-ST segment elevation MD The patient has had concerning symptoms and objective findings concerning for non-ST segment elevation MD. The present time she appears to be stable with respect to no ongoing chest discomfort. She does have ongoing shortness of breath and dyspnea with exertion. She will continue medical management as deemed appropriate. She is being considered for upcoming diagnostic cardiac catheterization on 07/04/2017-after her anticoagulation status has been allowed to dissipate. 2. CAD status post CABG The patient has underlying history of CAD as noted above. She, according to her medical records, has a two-vessel CABG with a VALERIO to the LAD and an SVG to the PDA. At the present time she will continue to be monitored. She will continue medical management. She will undergo future diagnostic cardiac catheterization. 3. Aortic valve disorder status post aortic valve replacement-bioprosthetic The patient's aortic valve has been evaluated with a transthoracic echocardiogram. It appears to be stable. She will continue to be followed for this. She will need continued AHA antibiotic prophylaxis. 4. Paroxysmal atrial fibrillation The patient has a history of paroxysmal atrial fibrillation. She has been on medical management. Her anticoagulation is on hold at this time pending upcoming diagnostic cardiac catheterization. 5. Ventricular ectopy/idioventricular rhythm The patient does have PVCs. She has also had rhythms appearing compatible with idioventricular rhythms. At the present time she will continue to be monitored. Her medications will be adjusted as deemed appropriate based upon her underlying rate and rhythm. She will continue her evaluation for progression of coronary disease and her graft vessel disease may be contributing to her symptoms and objective findings with upcoming diagnostic cardiac catheterization. 6. Congestive heart failure There have been concerns of patient having underlying CHF. This may be systolic mediated based on her diminished LV systolic function. She is being treated medically. She will continue her evaluation as noted above. 7. Renal insufficiency The patient does have an element of renal insufficiency. Her medications will be adjusted. Her renal function will need to be followed prior to and following her diagnostic cardiac catheterization. 8. Hyperkalemia The patient's potassium level appears to be improving at this time. Comment: The above was discussed with the patient, her spouse, and Dr. Rivers. This note was generated with [employer] software. It may contain incorrect words, spelling, and punctuation that were not noted in checking the note before signing.
[2017-07-02] MEDS: hydrALAZINE 10 MG Tablet PO ×2 (13:30→22:17)
--- NOTE | 2017-07-02 14:46 | CASEMGMT ---
RN REINALDO Face to Face with patient for initial transition planning/care coordination assessment. RN CM introduced self and role at [facility]. Patient lying in bed, alert and oriented, at bedside. Patient willing to participate in assessment and is able to answer all questions appropriately. Care providers, pharmacy, and demographics verified. See link attached. Patient wishes to discharge home, denies need for home health at this time. Patient states she has no further needs or concerns at this time. CM to follow for discharge planning needs that may arise. Disposition Plan: Patient to discharge home with family support and follow-up plans in place.
[2017-07-02] MEDS: Clopidogrel Bisulfate 75 MG Tablet PO (17:31)
[2017-07-02] MEDS: Metoprolol Tartrate 25 MG Tablet 12.5 MG PO (22:18)
[2017-07-02] MEDS: Temazepam 15 MG Capsule PO (22:20)
[2017-07-03] VITALS (15 sets, daily range): BP systolic 128–155; BP diastolic 53–75; PULSE 50–62; RESP 16; TEMP 36.4–36.8; O2SAT 92–96
[2017-07-03] MEDS: Levothyroxine 25 MCG TABLET PO (05:26)
[2017-07-03] MEDS: hydrALAZINE 10 MG Tablet PO ×3 (05:26→21:20)
[2017-07-03 06:21] LABS: Absolute Lymphocyte Count 1.31 X10^3/ul (0.83-4.51); Absolute Neutrophil Count 5.8 X10^3/uL (2.0-7.7); Basophil# 0.05 X10^3/uL; Basophil% 0.6 % (0-1); Eosinophil# 0.16 X10^3/uL; Eosinophils% 1.9 % (0-5); Hematocrit 33.8 % (37-47); Hemoglobin 10.5 g/dl (12.0-15.0); Lymphocyte # 1.31 X10^3/ul (4.0); Lymphocyte % 15.7 % (19-41); Mean Corp Hgb Conc 31.1 g/gl (32-36); Mean Corpuscular Hgb 30.3 pg (27.0-32.0); Mean Corpuscular Volume 97.7 fL (81-99); Mean Platelet Vol. 11.6 fl (6.2-12.0); Monocyte# 0.98 X10^3/uL; Monocyte% 11.7 % (0-10); Neutrophil # 5.83 X10^3/uL (2.7-7.7); Neutrophil % 69.9 % (47-70); POSITIVE COUNT NO; POSITIVE DIFFERENTIAL NO; POSITIVE MORPHOLOGY NO; Platelet Count 218 K/mm3 (150-450); RBC Distribution Width CV 13.3 % (11.6-14.6); RBC Distribution Width SD 47.5 fl (35.1-43.9); Red Blood Count 3.46 M/mm3 (4.2-5.4); White Blood Count 8.4 K/mm3 (4.4-11.0)
[2017-07-03 06:30] LABS: Anion Gap 7 (5-15); BUN 36 mg/dL (7-18); BUN/Creat Ratio 25.7 RATIO (10-20); Calcium,Total 8.7 mg/dL (8.5-10.1); Chloride 109 mmol/L (98-107); EST Glomerular Filtration Rate 38 mL/min (>60); Est Glom Filt Rate - Afr Amer 47 mL/min (>60); Estimated Creatinine Clearance 23.02 ml/min; Glucose 113 mg/dL (74-106); Potassium 4.5 mmol/L (3.5-5.1); Sodium Level 141 mmol/L (136-145)
[2017-07-03] MEDS: Amiodarone 200 MG Tablet PO (08:58)
[2017-07-03] MEDS: Calcium Carb/Vitamin D 1 TABLET Tablet PO (08:58)
[2017-07-03] MEDS: Aspirin 81 MG TAB.CHEW PO (08:58)
[2017-07-03] MEDS: Metoprolol Tartrate 25 MG Tablet 12.5 MG PO ×2 (08:59→21:21)
[2017-07-03] MEDS: Magnesium Oxide 400 MG Tablet PO ×2 (08:59→21:20)
[2017-07-03] MEDS: amLODIPine 5 MG Tablet PO (09:00)
[2017-07-03] MEDS: Pantoprazole Sodium 20 MG Tablet PO (09:00)
--- NOTE | 2017-07-03 11:46 | PN_ITS ---
Patient Problems: Active and Suspected Problems Atypical chest pain (Acute) Subjective: Afebrile, VSS. HR is a little better with the decrease in the metoprolol. Still having some idioventricular rhythm but no more than 2-3 beats at a time. No VT. Denies CP, SOB, palpitations, nausea, lightheadedness. She continues to c/o NUÑEZ and fatigue with minimal exertion. Creatinine today is 1.4 and improving She tells me that she can not sleep for more than a few hours at a time at night. She has trouble going to sleep because she has too many thoughts running through her brain. She has Ativan at home from Dr. West but does not like to take it. Melatonin is not helping. Feels tired all the time. May be depressed......sometimes has trouble remembering things. Objective: General: alert, oriented X3, NAD, appropriate with normal affect, sitting in a chair watching TV Neck: supple, trachea midline, carotids have brisk upstroke and mildly decreased pulse volume, no JVD, carotid bruit on the R but, may be due to radiation of the MM Lungs: initially had a few crackles in the left base but this resolved completely after a few deep breaths, symmetric chest expansion, not tachypneic, able to lie flat with no respiratory distress, no wheezes Heart: Bradycardic rate in the 50's with regular rhythm, normal S1, normal S2, 2 /6 systolic murmur at the second ICS, no gallop, no rub, PMI is on the midclavicular line Abdomen: soft, NT, ND, BS's present Extremities: mild pretibial edema....likely due to sitting in a chair with her legs dependent, some calf tenderness BL but this is chronic and she thinks due to fibromyalgia, peripheral pulses are decreased - Physical Exam Vital Signs Temp Pulse Resp BP Pulse Ox 97.9 F 58 L 16 137/67 H 92 07/03/17 08:28 07/03/17 08:59 07/03/17 08:28 07/03/17 08:28 07/03/17 08:28 Oxygen Delivery Method Room Air Intake and Output for Last 24 Hours 07/01/17 07/02/17 07/03/17 23:59 23:59 23:59 Intake Total 633 / 1843 462 / 462 Balance 633 / 1843 462 / 462 Laboratory Tests Past 24 Hrs 07/03/17 07/03/17 05:45 05:45 WBC 8.4 RBC 3.46 L Hgb 10.5 L Hct 33.8 L MCV 97.7 MCH 30.3 MCHC 31.1 L RDW 13.3 RDW Differential 47.5 H Plt Count 218 MPV 11.6 Immature Gran % (Auto) 0.200 Neut % (Auto) 69.9 Lymph % (Auto) 15.7 L [place] % (Auto) 11.7 H Eos % (Auto) 1.9 Baso % (Auto) 0.6 Absolute Neuts (auto) 5.8 Absolute Lymphs (auto) 1.31 Total Counted Not Reportable Sodium 141 Potassium 4.5 Chloride 109 H Carbon Dioxide 25.0 Anion Gap 7 BUN 36 H Creatinine 1.40 H Estim Creat Clear Calc 23.02 Est GFR (MDRD) Af Amer 47 L Est GFR (MDRD) Non-Af 38 L BUN/Creatinine Ratio 25.7 H Glucose 113 H Calcium 8.7 Medical Necessity - Tobacco Use Smoking Status: Never smoker Assessment/Plan Active and Suspected Problems Atypical chest pain (Acute) Impressions 1. NSTEMI 2. EL - improving slowly 3. Hyperkalemia-resolved 4. elevated TSH - started on Levothyroxine, T4 is WNL 5. S/P bioprosthetic AV 6. CAD 7. PVC's and idioventricular rhythm - usually only for 3 beats 8. Paroxysmal atrial fibrillation 9. Chronic anticoagulation with Eliquis 10. Anxiety/insomnia 11. Constipation Try Trazodone 50 mg at HS for insomnia and if this works will give a RX at DC....if it does not can increase the dose OR try Remeron or Neurontin Start Miralax daily.......sounds like she may take senna at home BID and she has not been getting it in the hospital dulcolax today Cath tomorrow Continue the NS at 50. continue with the lower dose of the metoprolol Code Visit Inpatient E&M: 15359 Subs Hosp L2
[2017-07-03] MEDS: Bisacodyl 5 MG Tablet 10 MG PO (12:06)
--- NOTE | 2017-07-03 13:16 | PCM.PN.CARD ---
Subjectve: The patient states that she is not having any acute changes with respect to her chest discomfort and/or shortness of breath/dyspnea with her minimal ambulation in the hospital. Objective: Vital Signs Temp Pulse Resp BP Pulse Ox 97.9 F 55 L 16 137/67 H 92 07/03/17 08:28 07/03/17 11:00 07/03/17 08:28 07/03/17 08:28 07/03/17 08:28 Oxygen Delivery Method Room Air Intake and Output for Last 24 Hours 07/01/17 07/02/17 07/03/17 23:59 23:59 23:59 Intake Total 633 / 1843 1164 / 1164 Balance 633 / 1843 1164 / 1164 General: Awake, Alert, Oriented x 3, Cooperative, No Acute Distress Neck: No JVD Lungs: Clear to auscultation Cardiovascular: Regular Rhythm, Normal S1, Normal S2 Murmur Murmur: Grade 2/6, Soft, Early Systolic, LLSB Abdomen: Bowel Sounds Present, Soft, Non Tender Extremities: No Cyanosis, No Clubbing, No edema 07/03/17 05:45: WBC 8.4, RBC 3.46 L, Hgb 10.5 L, Hct 33.8 L, MCV 97.7, MCH 30.3, MCHC 31.1 L, RDW 13.3, RDW Differential 47.5 H, Plt Count 218, MPV 11.6, Immature Gran % (Auto) 0.200, Neut % (Auto) 69.9, Lymph % (Auto) 15.7 L, [place] % (Auto) 11.7 H, Eos % (Auto) 1.9, Baso % (Auto) 0.6, Absolute Neuts (auto) 5.8, Total Counted Not Reportable 07/03/17 05:45: Sodium 141, Potassium 4.5, Chloride 109 H, Carbon Dioxide 25.0, Anion Gap 7, BUN 36 H, Creatinine 1.40 H, Est GFR (MDRD) Af Amer 47 L, Est GFR (MDRD) Non-Af 38 L, BUN/Creatinine Ratio 25.7 H, Glucose 113 H, Calcium 8.7 Rhythm: Sinus rhythm Medical Necessity - Tobacco Use Smoking Status: Never smoker Assessment/Plan 1. Non-ST segment elevation OR The patient has had concerning symptoms and objective findings concerning for non-ST segment elevation OR. The present time she appears to be stable with respect to no ongoing chest discomfort. She does have ongoing shortness of breath and dyspnea with exertion. She will continue medical management as deemed appropriate. She is being scheduled for diagnostic cardiac catheterization on 07/04/2017 2. CAD status post CABG The patient has underlying history of CAD as noted above. She, according to her medical records, has a two-vessel CABG with a VALERIO to the LAD and an SVG to the PDA. At the present time she will continue to be monitored. She will continue medical management. She will undergo future diagnostic cardiac catheterization. 3. Aortic valve disorder status post aortic valve replacement-bioprosthetic The patient's aortic valve has been evaluated with a transthoracic echocardiogram. It appears to be stable. She will continue to be followed for this. She will need continued AHA antibiotic prophylaxis. 4. Paroxysmal atrial fibrillation The patient has a history of paroxysmal atrial fibrillation. She has been on medical management. Her anticoagulation is on hold at this time pending upcoming diagnostic cardiac catheterization. 5. Ventricular ectopy/idioventricular rhythm The patient does have PVCs. She has also had rhythms appearing compatible with idioventricular rhythms. At the present time she will continue to be monitored. Her medications will be adjusted as deemed appropriate based upon her underlying rate and rhythm. She will continue her evaluation for progression of coronary disease and her graft vessel disease may be contributing to her symptoms and objective findings with upcoming diagnostic cardiac catheterization. 6. Congestive heart failure There have been concerns of patient having underlying CHF. This may be systolic mediated based on her diminished LV systolic function. She is being treated medically. She will continue her evaluation as noted above. 7. Renal insufficiency The patient does have an element of renal insufficiency. Her medications will be adjusted. Her renal function will need to be followed prior to and following her diagnostic cardiac catheterization. 8. Hyperkalemia The patient's potassium level appears to be improving at this time. Comment: The above was discussed with the patient, her spouse, and Dr. Rivers. This note was generated with [employer] software. It may contain incorrect words, spelling, and punctuation that were not noted in checking the note before signing.
--- NOTE | 2017-07-03 13:19 | PN.CARD_ITS ---
Subjectve: The patient states that she is not having any acute changes with respect to her chest discomfort and/or shortness of breath/dyspnea with her minimal ambulation in the hospital. Objective: Vital Signs Temp Pulse Resp BP Pulse Ox 97.9 F 55 L 16 137/67 H 92 07/03/17 08:28 07/03/17 11:00 07/03/17 08:28 07/03/17 08:28 07/03/17 08:28 Oxygen Delivery Method Room Air Intake and Output for Last 24 Hours 07/01/17 07/02/17 07/03/17 23:59 23:59 23:59 Intake Total 633 / 1843 1164 / 1164 Balance 633 / 1843 1164 / 1164 General: Awake, Alert, Oriented x 3, Cooperative, No Acute Distress Neck: No JVD Lungs: Clear to auscultation Cardiovascular: Regular Rhythm, Normal S1, Normal S2 Murmur Murmur: Grade 2/6, Soft, Early Systolic, LLSB Abdomen: Bowel Sounds Present, Soft, Non Tender Extremities: No Cyanosis, No Clubbing, No edema 07/03/17 05:45: WBC 8.4, RBC 3.46 L, Hgb 10.5 L, Hct 33.8 L, MCV 97.7, MCH 30.3 , MCHC 31.1 L, RDW 13.3, RDW Differential 47.5 H, Plt Count 218, MPV 11.6, Immature Gran % (Auto) 0.200, Neut % (Auto) 69.9, Lymph % (Auto) 15.7 L, [place] % (Auto) 11.7 H, Eos % (Auto) 1.9, Baso % (Auto) 0.6, Absolute Neuts (auto) 5.8, Total Counted Not Reportable 07/03/17 05:45: Sodium 141, Potassium 4.5, Chloride 109 H, Carbon Dioxide 25.0, Anion Gap 7, BUN 36 H, Creatinine 1.40 H, Est GFR (MDRD) Af Amer 47 L, Est GFR ( MDRD) Non-Af 38 L, BUN/Creatinine Ratio 25.7 H, Glucose 113 H, Calcium 8.7 Rhythm: Sinus rhythm Medical Necessity - Tobacco Use Smoking Status: Never smoker Assessment/Plan 1. Non-ST segment elevation AR The patient has had concerning symptoms and objective findings concerning for non-ST segment elevation AR. The present time she appears to be stable with respect to no ongoing chest discomfort. She does have ongoing shortness of breath and dyspnea with exertion. She will continue medical management as deemed appropriate. She is being scheduled for diagnostic cardiac catheterization on 07/04/2017 2. CAD status post CABG The patient has underlying history of CAD as noted above. She, according to her medical records, has a two-vessel CABG with a VALERIO to the LAD and an SVG to the PDA. At the present time she will continue to be monitored. She will continue medical management. She will undergo future diagnostic cardiac catheterization. 3. Aortic valve disorder status post aortic valve replacement-bioprosthetic The patient's aortic valve has been evaluated with a transthoracic echocardiogram. It appears to be stable. She will continue to be followed for this. She will need continued AHA antibiotic prophylaxis. 4. Paroxysmal atrial fibrillation The patient has a history of paroxysmal atrial fibrillation. She has been on medical management. Her anticoagulation is on hold at this time pending upcoming diagnostic cardiac catheterization. 5. Ventricular ectopy/idioventricular rhythm The patient does have PVCs. She has also had rhythms appearing compatible with idioventricular rhythms. At the present time she will continue to be monitored. Her medications will be adjusted as deemed appropriate based upon her underlying rate and rhythm. She will continue her evaluation for progression of coronary disease and her graft vessel disease may be contributing to her symptoms and objective findings with upcoming diagnostic cardiac catheterization. 6. Congestive heart failure There have been concerns of patient having underlying CHF. This may be systolic mediated based on her diminished LV systolic function. She is being treated medically. She will continue her evaluation as noted above. 7. Renal insufficiency The patient does have an element of renal insufficiency. Her medications will be adjusted. Her renal function will need to be followed prior to and following her diagnostic cardiac catheterization. 8. Hyperkalemia The patient's potassium level appears to be improving at this time. Comment: The above was discussed with the patient, her spouse, and Dr. Rivers. This note was generated with [employer] software. It may contain incorrect words, spelling, and punctuation that were not noted in checking the note before signing.
[2017-07-03 15:01] LABS: Color, Urine Yellow (Yellow); Glucose, Dipstick Normal (Normal); Ketone-Dipstick Negative (Negative); Leukocyte Esterase-Dipstick 25 /ul (Negative); Nitrite-Dipstick Negative (Negative); Occult Blood-Urine Negative /ul (Negative); Protein-Dipstick 30 mg/dl (Negative); Urine Bilirubin Dipstick Negative (Negative); Urine Clarity Clear (Clear); Urine Urobilinogen Normal (Normal)
[2017-07-03] MEDS: Clopidogrel Bisulfate 75 MG Tablet PO (16:33)
[2017-07-03] MEDS: 0.9% Normal Saline 1,000 ML 50 ML IV (16:37)
[2017-07-03] MEDS: traZODone 50 MG Tablet PO (21:24)
[2017-07-03] MEDS: LORazepam 0.5 MG Tablet PO (23:13)
[2017-07-04] VITALS (18 sets, daily range): BP systolic 113–162; BP diastolic 41–73; PULSE 50–70; RESP 16; TEMP 36.4–36.6; O2SAT 92–97
[2017-07-04] MEDS: Levothyroxine 25 MCG TABLET PO (05:15)
[2017-07-04] MEDS: Aspirin 81 MG TAB.CHEW PO (05:15)
[2017-07-04] MEDS: hydrALAZINE 10 MG Tablet PO ×2 (05:15→14:47)
[2017-07-04] MEDS: Amiodarone 200 MG Tablet PO (05:16)
[2017-07-04] MEDS: Metoprolol Tartrate 25 MG Tablet 12.5 MG PO (05:16)
[2017-07-04] MEDS: amLODIPine 5 MG Tablet PO (05:17)
[2017-07-04] MEDS: 0.9% Normal Saline 1,000 ML 50 ML IV (05:19)
[2017-07-04] MEDS: Clopidogrel Bisulfate 75 MG Tablet PO (05:29)
--- NOTE | 2017-07-04 05:55 | EKG12_ITS ---
Test Reason : AM EKG Blood Pressure : / mmHG Vent. Rate : 052 BPM Atrial Rate : 052 BPM P-R Int : 266 ms QRS Dur : 112 ms QT Int : 484 ms P-R-T Axes : 060 -36 042 degrees QTc Int : 450 ms Sinus bradycardia with 1st degree A-V block Left axis deviation Septal infarct , age undetermined Abnormal ECG When compared with ECG of 30-JUN-2017 14:55, MANUAL COMPARISON REQUIRED, DATA IS UNCONFIRMED Confirmed by MANPREET JIMENEZ, OZ ([id number]), food editor SAMEERA CARNEY ([id number]) on 07/05/2017 3:20:18 PM Referred By: DANNY Confirmed By:OZ CASE MD
[2017-07-04 05:59] LABS: Anion Gap 11 (5-15); BUN 33 mg/dL (7-18); BUN/Creat Ratio 26.2 RATIO (10-20); Calcium,Total 8.6 mg/dL (8.5-10.1); Chloride 110 mmol/L (98-107); Creatinine, Serum 1.26 mg/dL (0.55-1.02); EST Glomerular Filtration Rate 43 mL/min (>60); Est Glom Filt Rate - Afr Amer 53 mL/min (>60); Estimated Creatinine Clearance 25.58 ml/min; Glucose 120 mg/dL (74-106); International Normalized Ratio 1.3; Potassium 4.4 mmol/L (3.5-5.1); Prothrombin Time (Protime)PT. 16.5 SECONDS (11.7-14.9); Sodium Level 144 mmol/L (136-145)
[2017-07-04 06:00] LABS: Partial Thromboplast Time 30.9 Seconds (24.1-36.2)
[2017-07-04 06:47] LABS: Absolute Lymphocyte Count 1.25 X10^3/ul (0.83-4.51); Absolute Neutrophil Count 4.8 X10^3/uL (2.0-7.7); Basophil# 0.05 X10^3/uL; Basophil% 0.7 % (0-1); Eosinophil# 0.16 X10^3/uL; Eosinophils% 2.2 % (0-5); Hematocrit 32.3 % (37-47); Hemoglobin 10.2 g/dl (12.0-15.0); Lymphocyte # 1.25 X10^3/ul (4.0); Lymphocyte % 17.2 % (19-41); Mean Corp Hgb Conc 31.6 g/gl (32-36); Mean Corpuscular Hgb 30.5 pg (27.0-32.0); Mean Corpuscular Volume 96.7 fL (81-99); Mean Platelet Vol. 11.6 fl (6.2-12.0); Monocyte# 0.97 X10^3/uL; Monocyte% 13.4 % (0-10); Neutrophil # 4.81 X10^3/uL (2.7-7.7); Neutrophil % 66.4 % (47-70); Platelet Count 212 K/mm3 (150-450); RBC Distribution Width CV 13.4 % (11.6-14.6); RBC Distribution Width SD 47.5 fl (35.1-43.9); Red Blood Count 3.34 M/mm3 (4.2-5.4); White Blood Count 7.3 K/mm3 (4.4-11.0)
[2017-07-04 06:58] LABS: POSITIVE COUNT NO; POSITIVE DIFFERENTIAL NO; POSITIVE MORPHOLOGY NO
--- NOTE | 2017-07-04 09:25 | CASEMGMT ---
According to [facility] website, the following are in-network tertiary facilities: [facility], [place], and [facility]. Lilia LAMB CM
--- NOTE | 2017-07-04 10:25 | PCM.PN.CARD ---
Subjectve: Patient seen and evaluated and appears to be stable. Objective: Vital Signs Temp Pulse Resp BP Pulse Ox 97.6 F L 59 L 16 145/61 H 92 07/04/17 05:10 07/04/17 06:53 07/04/17 05:10 07/04/17 05:10 07/04/17 05:10 Oxygen Delivery Method Room Air Weight: 203 lb 7.787 oz Intake and Output for Last 24 Hours 07/02/17 07/03/17 07/04/17 23:59 23:59 23:59 Intake Total 633 / 1843 1457 / 1457 568 / 568 Balance 633 / 1843 1457 / 1457 568 / 568 General: Awake, Alert, Oriented x 3 HEENT: PERRL, EOMI, Sclera Non Icteric Neck: Supple, Good ROM, No Lymph Node Enlargement Lungs: Clear to auscultation Cardiovascular: Regular Rhythm, Normal S1, Normal S2, No Murmurs, No Rubs, No Gallops Vascular: No Carotid Bruits, Normal Femoral Pulses, Normal Radial Pulses, Normal Dorsalis Pedal Pulse, Normal Posterior Tibial Pulses Abdomen: Bowel Sounds Present, Soft, Non Tender, No HSM, No Organomegaly Extremities: No Cyanosis, No Clubbing, No edema Neurological: No Focal Motor or Sensory Deficit 07/03/17 14:50: Urine Color Yellow, Urine Clarity Clear, Urine pH 6.0, Ur Specific [place] 1.010, Urine Protein 30 H, Urine Glucose (UA) Normal, Urine Ketones Negative, Urine Occult Blood Negative, Urine Nitrite Negative, Urine Bilirubin Negative, Urine Urobilinogen Normal, Ur Leukocyte Esterase 25 H 07/04/17 05:16: Sodium 144, Potassium 4.4, Chloride 110 H, Carbon Dioxide 23.0, Anion Gap 11, BUN 33 H, Creatinine 1.26 H, Est GFR (MDRD) Af Amer 53 L, Est GFR (MDRD) Non-Af 43 L, BUN/Creatinine Ratio 26.2 H, Glucose 120 H, Calcium 8.6 07/04/17 05:16: WBC 7.3, RBC 3.34 L, Hgb 10.2 L, Hct 32.3 L, MCV 96.7, MCH 30.5, MCHC 31.6 L, RDW 13.4, RDW Differential 47.5 H, Plt Count 212, MPV 11.6, Immature Gran % (Auto) 0.100, Neut % (Auto) 66.4, Lymph % (Auto) 17.2 L, Rich % (Auto) 13.4 H, Eos % (Auto) 2.2, Baso % (Auto) 0.7, Absolute Neuts (auto) 4.8, Total Counted Not Reportable 07/04/17 05:16: PT 16.5 H, INR 1.3, APTT 30.9 Rhythm: EKG: ECHO: Stress Test: Cardiac Cath: PCI: CT Surgery: Holter monitor: EPS: PPM: CXR: Chest CT Scan: Medical Necessity - Tobacco Use Smoking Status: Never smoker Assessment/Plan 1. Chest pain-new onset angina. Patient presents with chest discomfort which is concerning for new onset angina. She did have concomitant elevation of her blood pressure but with her abnormal cardiac enzymes my recommendation would be for us to further evaluate the above with a cardiac catheterization. She underwent cardiac catheterization this morning which demonstrated the following: Normal left main coronary artery. Left anterior descending artery previously stented with mild in-stent stenosis competitive flow noted via VALERIO. Left circumflex artery with no significant stenosis noted in [place] circumflex and obtuse marginal branch. Right coronary artery with mild disease noted proximally and moderate disease noted distally. Left internal mammary artery to the left anterior descending artery which is patent. Saphenous vein graft to the right coronary artery which appears to be patent. Left ventricular ejection fraction noted to be approximately 45% with anterior apical and inferoapical hypokinesis. No gradient noted across the aortic valve. 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 I do not see a significant lesion that needs to be weaned on and I would recommend a repeat echocardiogram in approximately a month to assess the left ventricular apex. 2. Hypertension Her blood pressure appears to be somewhat elevated. She does have mild renal dysfunction and I recommend holding off on her FRANCISCO inhibitor at this particular time a calcium channel marivel such as amlodipine can be substituted to improve her blood pressure she would also continue on her low dose of the beta-marivel. 3. Paroxysmal atrial fibrillation She does have a history of paroxysmal atrial fibrillation. She is maintaining sinus rhythm at this time on the amiodarone as well as the beta-marivel. She is on Eliquis and will recommend restarting it on Wednesday 4. Valvular heart disease status post aortic valve replacement She is status post aortic valve replacement 2 years ago. Her echocardiogram demonstrates stability of aortic valve she does have wall motion abnormality involving the apex though. The cardiac catheterization corroborated no evidence of gradient across the bioprosthetic aortic valve. 5. Risk factor modification With a history of coronary artery disease she needs to be under risk factor modification with lipid lowering aggressively as well as dietary modification. I have discussed the above with her as well. 6 congestive heart failure diastolic She appears to have some fluid retention which is likely related to congestive heart failure. She can be discharged later today for outpatient follow-up. Thank you for allowing me to participate in the care of your patient. Please don't hesitate to call if any issues arise
--- NOTE | 2017-07-04 10:30 | PN.CARD_ITS ---
Subjectve: Patient seen and evaluated and appears to be stable. Objective: Vital Signs Temp Pulse Resp BP Pulse Ox 97.6 F L 59 L 16 145/61 H 92 07/04/17 05:10 07/04/17 06:53 07/04/17 05:10 07/04/17 05:10 07/04/17 05:10 Oxygen Delivery Method Room Air Weight: 203 lb 7.787 oz Intake and Output for Last 24 Hours 07/02/17 07/03/17 07/04/17 23:59 23:59 23:59 Intake Total 633 / 1843 1457 / 1457 568 / 568 Balance 633 / 1843 1457 / 1457 568 / 568 General: Awake, Alert, Oriented x 3 HEENT: PERRL, EOMI, Sclera Non Icteric Neck: Supple, Good ROM, No Lymph Node Enlargement Lungs: Clear to auscultation Cardiovascular: Regular Rhythm, Normal S1, Normal S2, No Murmurs, No Rubs, No Gallops Vascular: No Carotid Bruits, Normal Femoral Pulses, Normal Radial Pulses, Normal Dorsalis Pedal Pulse, Normal Posterior Tibial Pulses Abdomen: Bowel Sounds Present, Soft, Non Tender, No HSM, No Organomegaly Extremities: No Cyanosis, No Clubbing, No edema Neurological: No Focal Motor or Sensory Deficit 07/03/17 14:50: Urine Color Yellow, Urine Clarity Clear, Urine pH 6.0, Ur Specific [place] 1.010, Urine Protein 30 H, Urine Glucose (UA) Normal, Urine Ketones Negative, Urine Occult Blood Negative, Urine Nitrite Negative, Urine Bilirubin Negative, Urine Urobilinogen Normal, Ur Leukocyte Esterase 25 H 07/04/17 05:16: Sodium 144, Potassium 4.4, Chloride 110 H, Carbon Dioxide 23.0, Anion Gap 11, BUN 33 H, Creatinine 1.26 H, Est GFR (MDRD) Af Amer 53 L, Est GFR (MDRD) Non-Af 43 L, BUN/Creatinine Ratio 26.2 H, Glucose 120 H, Calcium 8.6 07/04/17 05:16: WBC 7.3, RBC 3.34 L, Hgb 10.2 L, Hct 32.3 L, MCV 96.7, MCH 30.5 , MCHC 31.6 L, RDW 13.4, RDW Differential 47.5 H, Plt Count 212, MPV 11.6, Immature Gran % (Auto) 0.100, Neut % (Auto) 66.4, Lymph % (Auto) 17.2 L, [place] % (Auto) 13.4 H, Eos % (Auto) 2.2, Baso % (Auto) 0.7, Absolute Neuts (auto) 4.8, Total Counted Not Reportable 07/04/17 05:16: PT 16.5 H, INR 1.3, APTT 30.9 Rhythm: EKG: ECHO: Stress Test: Cardiac Cath: PCI: CT Surgery: Holter monitor: EPS: PPM: CXR: Chest CT Scan: Medical Necessity - Tobacco Use Smoking Status: Never smoker Assessment/Plan 1. Chest pain-new onset angina. * Patient presents with chest discomfort which is concerning for new onset angina. She did have concomitant elevation of her blood pressure but with her abnormal cardiac enzymes my recommendation would be for us to further evaluate the above with a cardiac catheterization. * She underwent cardiac catheterization this morning which demonstrated the following: Normal left main coronary artery. Left anterior descending artery previously stented with mild in-stent stenosis competitive flow noted via VALERIO. Left circumflex artery with no significant stenosis noted in [place] circumflex and obtuse marginal branch. Right coronary artery with mild disease noted proximally and moderate disease noted distally. Left internal mammary artery to the left anterior descending artery which is patent. Saphenous vein graft to the right coronary artery which appears to be patent. Left ventricular ejection fraction noted to be approximately 45% with anterior apical and inferoapical hypokinesis. No gradient noted across the aortic valve. 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 I do not see a significant lesion that needs to be weaned on and I would recommend a repeat echocardiogram in approximately a month to assess the left ventricular apex. 2. Hypertension * Her blood pressure appears to be somewhat elevated. She does have mild renal dysfunction and I recommend holding off on her FRANCISCO inhibitor at this particular time a calcium channel marviel such as amlodipine can be substituted to improve her blood pressure she would also continue on her low dose of the beta-marivel. * 3. Paroxysmal atrial fibrillation * She does have a history of paroxysmal atrial fibrillation. She is maintaining sinus rhythm at this time on the amiodarone as well as the beta- marivel. She is on Eliquis and will recommend restarting it on Tuesday 4. 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 Her echocardiogram demonstrates stability of aortic valve she does have wall motion abnormality involving the apex though. The cardiac catheterization corroborated no evidence of gradient across the bioprosthetic aortic valve. 5. Risk factor modification * With a history of coronary artery disease she needs to be under risk factor modification with lipid lowering aggressively as well as dietary modification. I have discussed the above with her as well. 6 congestive heart failure diastolic * She appears to have some fluid retention which is likely related to congestive heart failure. * * She can be discharged later today for outpatient follow-up. * Thank you for allowing me to participate in the care of your patient. Please don't hesitate to call if any issues arise
--- NOTE | 2017-07-04 10:41 | CL.D_ITS ---
Patient Name: GALILEO HUSTON Study Date: 07/04/2017 Performing: Jose Mason MD Ht: 60 inches 152 cm : 1935 Wt: 203.1 lbs 92 kg Age: 82 Gender: female BSA: 1.87 PROCEDURE(S) PERFORMED SP20-QRW/COR/LV/CABG CLINICAL PROFILE AND INDICATIONS Indications: Stable Known CAD Heart Failure: NYHA Class: 2 Stress/Imaging Stress/Image Study Performed: No CAD Presentations: Unstable angina. CONCLUSIONS Patent left internal mammary artery to the left anterior descending artery, and saphenous vein graft to posterior descending artery. The [place] vessels also do not demonstrate any high-grade stenosis. Bioprosthetic aortic valve is stable with no gradient. RECOMMENDATIONS Medical therapy Recommend repeat echocardiogram in 4-6 weeks to assess left ventricular function. DESCRIPTION OF PROCEDURE The patient arrived to the procedure lab. The risks and benefits of the procedure as well as a full d escription of our services here and current unavailability of surgical backup were fully explained to the patient and/or their significant other prior to the catheterization. The Timeout was completed, verifying the correct patient and procedure. The patient's procedural site was prepped and draped in the usual fashion. Local anesthetic was given subcutaneously to right groin region with Lidocaine 2%. Using a modified Seldinger technique, arterial access was obtained via the right femoral artery, a 5 Fr sheath was inserted. Left Coronary Artery selective angiography was performed in multiple views u sing a 5 Fr. JL4 catheter. Right Coronary Artery selective angiography was then performed in multiple views using a 5 Fr. 3DRC ([place]) catheter. Saphenous Vein graft to the RPDA selective angiography was performed in multiple views using a 5 Fr. 3DRC ([place]) catheter. Left internal mammary artery graft to the LAD selective angiography was performed in multiple views using a 5 Fr. IM catheter. Le ft Ventriculography was performed in [place] projection using a 5 Fr. Pigtail catheter. LV to AO pullback pressures were then recorded.The arterial sheath was pulled and manual compression applied until hem ostasis is achieved. CORONARY ANGIOGRAPHY DOMINANCE: Right Dominant LEFT HEART ASSESSMENT Left Ventricular Ejection Fraction: by LV Gram 45 % Consistent with Takotsubo cardiomyopathy. LEFT MAIN: Angiographically normal LEFT ANTERIOR DECENDING ARTERY: Previously placed stent is patent, Moderate luminal irregularities up to 50% CIRCUMFLEX ARTERY: Mild luminal irregularities RIGHT CORONARY ARTERY: Moderate luminal irregularities up to 50% GRAFTS: Saphenous Vein graft to the RPDA is patent VALERIO graft to the Mid LAD is patent COMPLICATIONS No Complications PROCEDURE MEDICATIONS Versed 1 mg IV Oxygen: 2 L/min via nasal cannula SUMMARY OF HEMODYNAMIC DATA Time AIR REST ECG 09:31:29 AO 177/66 (100) SA 09:53:25 AO 140/67 (95) 09:54:04 LV 166/19, 30 10:10:27 LV 174/12, 31 10:10:45 LVp 142/7, 24 10:11:44 AOp 141/49 (78) 10:11:49 Signed By Jose Mason MD On 07/04/2017 10:40:44 AM Jose Mason MD
[2017-07-04] MEDS: Pantoprazole Sodium 20 MG Tablet PO (11:55)
[2017-07-04] MEDS: Magnesium Oxide 400 MG Tablet PO (11:55)
[2017-07-04] MEDS: Calcium Carb/Vitamin D 1 TABLET Tablet PO (11:56)
[2017-07-04] MEDS: amLODIPine 10 MG Tablet PO (11:56)
--- NOTE | 2017-07-04 15:56 | PCM.DC ---
- Discharge Diagnoses Current Active Problems: Current Active and Chronic Problems Atypical chest pain (Acute) Status post aorto-coronary artery bypass graft (Chronic) Status post bioprosthetic AVR (Chronic) You will use the following diet at home:: Cardiac Your food should be the consistency of: Regular Your liquids should be the consistency of: Regular/Thin Discharge Activity: Return to Normal Activity May shower in (days): 1 Call your doctor if your incision/area has: Continuous Slow Oozing, Sudden Increased Bleeding, Increased Pain/ Swelling, Increased Redness, Foul Smelling Discharge, Swelling at the incision site Call your doctor if you observe: Fever of 101 or Higher, Shortness of breath, Dizziness, Fainting spells, Swelling in the ankles, Chest pain, Increased palpitations (irregular heartbeat) Remove Dressing in (days):: 1 Cleanse incision/area with: Soap & Water, Keep Dressing Clean & Dry Instructions: Your Body's Response to Anxiety, What Can Cause Depression?, Depression Affects Your Mind and Body, Counseling for Depression Additional Instructions: I think the insomnia is due to anxiety and depression. I have started you on a medication for this that you will take at bedtime. It will take about 2-3 weeks to get a good effect. You take it at bedtime because it makes you sleepy. My cell # is [phone]....call me to let me know if this helps you. The stress was negative. Your heart rate is better since we have changed the dosing of the Metoprolol. Try and start an exercise program and walk for 5 minutes 2 times a day and gradually increase.......this will improve your exercise tolerance.....cardiac rehab may be a good thing for you.....you may want to ask Dr. Mason about this Pending Tests on Discharge: none Allergies/Adverse Reactions: Allergies atorvastatin [From Lipitor] Adverse Reaction (Verified 06/30/17 12:41) Pain in joints niacin Adverse Reaction (Verified 06/30/17 12:41) Pain in joints pregabalin [From Lyrica] Adverse Reaction (Verified 06/30/17 12:41) Other simvastatin [From Zocor] Adverse Reaction (Verified 06/30/17 12:41) Pain in joints Medications to take at Discharge Calcium Carbonate/Vitamin D3 [Calcium 500-Vit D3 600 Tablet] 1 each PO DAILY 02/24/16 Clopidogrel Bisulfate [Plavix] 75 mg PO DINNER 02/24/16 Docusate Sodium [Colace] 240 mg PO BID 02/24/16 Magnesium 500 mg PO BID 02/24/16 Multivitamin [Multiple Vitamins] 1 each PO DAILY 02/24/16 Nitroglycerin [Nitrostat] 0.4 mg SUBLINGUAL Q5M PRN 02/24/16 [place]-3S/Dha/Epa/Fish Oil/D3 [Fish Oil-Vit D3 Softgel] 1 each PO QODAY 02/24/16 Omeprazole 20 mg PO DAILY 02/24/16 Apixaban [Eliquis] 5 mg PO BID #60 tablet 11/16/16 Amiodarone HCl [Cordarone] 200 mg PO DAILY 06/30/17 Benzonatate [Tessalon Perle] 100 mg PO TID PRN 06/30/17 Furosemide [Lasix] 20 mg PO BID 06/30/17 Levothyroxine [Synthroid] 25 mcg PO DAILY 06/30/17 Lorazepam [Ativan] 0.5 mg PO BID PRN PRN 06/30/17 Amlodipine [Norvasc] 10 mg PO DAILY #30 tab 07/04/17 Metoprolol Tartrate [Lopressor (beta marivel)] 12.5 mg PO BID #30 tab 07/04/17 Mirtazapine [Remeron] 15 mg PO QHS #30 tab 07/04/17 The following prescriptions were given: Amlodipine [Norvasc] 10 mg PO DAILY #30 tab Mirtazapine [Remeron] 15 mg PO QHS #30 tab Metoprolol Tartrate [Lopressor (beta marivel)] 12.5 mg PO BID #30 tab Primary Care Physician: Matteo West III, MD [Primary Care Provider] - Please follow up with your Primary Care Physician in: 2-3 weeks Please Follow Up With: Jose Mason MD When: 1-2 weeks Proposed Discharge Date: 07/04/17
--- NOTE | 2017-07-04 16:07 | DCINST_ITS ---
- Discharge Diagnoses Current Active Problems: Current Active and Chronic Problems Atypical chest pain (Acute) Status post aorto-coronary artery bypass graft (Chronic) Status post bioprosthetic AVR (Chronic) You will use the following diet at home:: Cardiac Your food should be the consistency of: Regular Your liquids should be the consistency of: Regular/Thin Discharge Activity: Return to Normal Activity May shower in (days): 1 Call your doctor if your incision/area has: Continuous Slow Oozing, Sudden Increased Bleeding, Increased Pain/ Swelling, Increased Redness, Foul Smelling Discharge, Swelling at the incision site Call your doctor if you observe: Fever of 101 or Higher, Shortness of breath, Dizziness, Fainting spells, Swelling in the ankles, Chest pain, Increased palpitations (irregular heartbeat) Remove Dressing in (days):: 1 Cleanse incision/area with: Soap & Water, Keep Dressing Clean & Dry Instructions: Your Body's Response to Anxiety, What Can Cause Depression?, Depression Affects Your Mind and Body, Counseling for Depression Additional Instructions: I think the insomnia is due to anxiety and depression. I have started you on a medication for this that you will take at bedtime. It will take about 2-3 weeks to get a good effect. You take it at bedtime because it makes you sleepy. My cell # is [phone]....call me to let me know if this helps you. The stress was negative. Your heart rate is better since we have changed the dosing of the Metoprolol. Try and start an exercise program and walk for 5 minutes 2 times a day and gradually increase.......this will improve your exercise tolerance.....cardiac rehab may be a good thing for you.....you may want to ask Dr. Mason about this Pending Tests on Discharge: none Allergies/Adverse Reactions: Allergies atorvastatin [From Lipitor] Adverse Reaction (Verified 06/30/17 12:41) Pain in joints niacin Adverse Reaction (Verified 06/30/17 12:41) Pain in joints pregabalin [From Lyrica] Adverse Reaction (Verified 06/30/17 12:41) Other simvastatin [From Zocor] Adverse Reaction (Verified 06/30/17 12:41) Pain in joints Medications to take at Discharge Calcium Carbonate/Vitamin D3 [Calcium 500-Vit D3 600 Tablet] 1 each PO DAILY 11/30 Clopidogrel Bisulfate [Plavix] 75 mg PO DINNER 02/24/16 Docusate Sodium [Colace] 240 mg PO BID 02/24/16 Magnesium 500 mg PO BID 02/24/16 Multivitamin [Multiple Vitamins] 1 each PO DAILY 02/24/16 Nitroglycerin [Nitrostat] 0.4 mg SUBLINGUAL Q5M PRN 02/24/16 [place]-3S/Dha/Epa/Fish Oil/D3 [Fish Oil-Vit D3 Softgel] 1 each PO QODAY 02/24/16 Omeprazole 20 mg PO DAILY 02/24/16 Apixaban [Eliquis] 5 mg PO BID #60 tablet 11/16/16 Amiodarone HCl [Cordarone] 200 mg PO DAILY 06/30/17 Benzonatate [Tessalon Perle] 100 mg PO TID PRN 06/30/17 Furosemide [Lasix] 20 mg PO BID 06/30/17 Levothyroxine [Synthroid] 25 mcg PO DAILY 06/30/17 Lorazepam [Ativan] 0.5 mg PO BID PRN PRN 06/30/17 Amlodipine [Norvasc] 10 mg PO DAILY #30 tab 07/04/17 Metoprolol Tartrate [Lopressor (beta marivel)] 12.5 mg PO BID #30 tab 07/04/17 Mirtazapine [Remeron] 15 mg PO QHS #30 tab 07/04/17 The following prescriptions were given: Amlodipine [Norvasc] 10 mg PO DAILY #30 tab Mirtazapine [Remeron] 15 mg PO QHS #30 tab Metoprolol Tartrate [Lopressor (beta marivel)] 12.5 mg PO BID #30 tab Primary Care Physician: Matteo West III, MD [Primary Care Provider] - Please follow up with your Primary Care Physician in: 2-3 weeks Please Follow Up With: Jose Mason MD When: 1-2 weeks Proposed Discharge Date: 07/04/17
--- NOTE | 2017-07-04 16:12 | PCM.DC.SUM ---
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 This has improved as compared to prior study. Electronically Signed: Manish Zapata MD at 13:07 EDT Tel [phone], Service support , Dr. Jose Mason and Dr. Satya [facility] Procedures: 2-D Echocardiogram, Cardiac catheterization Summary of Care Provided: The patient is an 82-year-old female with a past medical history of coronary artery disease, two-vessel CABG, PTCA with stent in 2014 to the LAD, bioprosthetic aortic valve replacement in December 2015, paroxysmal atrial fibrillation, chronic anticoagulation with Eliquis and anxiety who presented to the [facility] emergency department on 06/30/2017 complaining of chest discomfort. EKG in the emergency room showed a first-degree AV block with T-wave inversion in the lateral precordial leads. Chest x-ray showed mild increased interstitial markings suggestive of scarring. CBC showed a mildly decreased hemoglobin at 11 with normochromic normocytic indices and a normal RDW. Platelets and white blood cell count were within normal limits. Calcium was increased at 5.4 and the BUN was 37 with a creatinine of 1.59. Troponin was elevated at 0.219 and a BNP was 1850. She was admitted to a monitored bed on PCU with suspected unstable angina, acute kidney injury and hyperkalemia. Lisinopril was held due to the EL and consult was ordered with Dr. Mason. Dr. Mason recommended cardiac catheterization and the patient was agreeable. Eliquis was held in preparation for cardiac catheterization on 07/04/17. Echocardiogram was obtained and showed a ejection fraction of 45% with mild segmental systolic dysfunction. Transmitral diastolic flow velocities suggested severe, stage III, diastolic dysfunction. The left atrium was moderately enlarged and there was mild to moderate TR. A bioprosthetic aortic valve was in position and there was 1-2+ eccentric aortic valve insufficiency. On 07/06 she underwent cardiac catheterization by Dr. Mason and showed a patent left internal mammary artery to the left anterior descending artery, and saphenous vein graft to the posterior descending artery. [place] vessels did not demonstrate any high-grade stenosis and the bioprosthetic aortic valve was stable with no gradient. He recommended medical therapy and a repeat echocardiogram in 4-6 weeks to assess left ventricular function. The left ventricular ejection fraction on heart cath was 45% and Dr. Mason felt this was due to Takotsubo's cardiomyopathy. she was discharged home and given RX's for amlodipine 10 mg daily, Remeron 15 mg nightly and metoprolol 12.5 mg twice daily. She will resume clopidogrel 75 mg daily and Eliquis 5 mg p.o. twice daily. She will follow up with Dr. Mason in the office in 1-2 weeks and with her primary care physician, Dr. Matteo West iii, in 2-3 weeks. General: alert, oriented X3, NAD, appropriate with normal affect Neck: supple, trachea midline, carotids have brisk upstroke and mildly decreased pulse volume, no JVD, carotid bruit on the R but, may be due to radiation of the MM Lungs: CTA Heart: Bradycardic rate in the 50's with regular rhythm, normal S1, normal S2, 2/6 systolic murmur at the second ICS, no gallop, no rub, PMI is on the midclavicular line Abdomen: soft, NT, ND, BS's present Extremities: mild pretibial edema. Groin site is dry with no bruising or hematoma This note was generated with Pictelaation software. It may contain incorrect words, spelling, and punctuation that were not noted in checking the note before signing. Discharge Activity: Return to Normal Activity May shower in (days): 1 Call your doctor if your incision/area has: Continuous Slow Oozing, Sudden Increased Bleeding, Increased Pain/ Swelling, Increased Redness, Foul Smelling Discharge, Swelling at the incision site Call your doctor if you observe: Fever of 101 or Higher, Shortness of breath, Dizziness, Fainting spells, Swelling in the ankles, Chest pain, Increased palpitations (irregular heartbeat) Remove Dressing in (days):: 1 Cleanse incision/area with: Soap & Water, Keep Dressing Clean & Dry Home Medications: Medications to take at Discharge Calcium Carbonate/Vitamin D3 [Calcium 500-Vit D3 600 Tablet] 1 each PO DAILY 02/24/16 Clopidogrel Bisulfate [Plavix] 75 mg PO DINNER 02/24/16 Docusate Sodium [Colace] 240 mg PO BID 02/24/16 Magnesium 500 mg PO BID 02/24/16 Multivitamin [Multiple Vitamins] 1 each PO DAILY 02/24/16 Nitroglycerin [Nitrostat] 0.4 mg SUBLINGUAL Q5M PRN 02/24/16 [place]-3S/Dha/Epa/Fish Oil/D3 [Fish Oil-Vit D3 Softgel] 1 each PO QODAY 02/24/16 Omeprazole 20 mg PO DAILY 02/24/16 Apixaban [Eliquis] 5 mg PO BID #60 tablet 11/16/16 Amiodarone HCl [Cordarone] 200 mg PO DAILY 06/30/17 Benzonatate [Tessalon Perle] 100 mg PO TID PRN 06/30/17 Furosemide [Lasix] 20 mg PO BID 06/30/17 Levothyroxine [Synthroid] 25 mcg PO DAILY 06/30/17 Lorazepam [Ativan] 0.5 mg PO BID PRN PRN 06/30/17 Amlodipine [Norvasc] 10 mg PO DAILY #30 tab 07/04/17 Metoprolol Tartrate [Lopressor (beta kenisha)] 12.5 mg PO BID #30 tab 07/04/17 Mirtazapine [Remeron] 15 mg PO QHS #30 tab 07/04/17 Following Prescrptions Were Given to Patient: Amlodipine [Norvasc] 10 mg PO DAILY #30 tab Mirtazapine [Remeron] 15 mg PO QHS #30 tab Metoprolol Tartrate [Lopressor (beta kenisha)] 12.5 mg PO BID #30 tab Primary Care Physician: Matteo West III, MD [Primary Care Provider] - Please follow up with your Primary Care Physician in: 2-3 weeks Please Follow Up With: Jose Mason MD When: 1-2 weeks Patient Instructions: Your Body's Response to Anxiety, Depression Affects Your Mind and Body, What Can Cause Depression?, Counseling for Depression Disposition: Home Minutes spent on discharge:: 35 Patient Condition:: Good Medical Necessity - Tobacco Use Smoking Status: Never smoker Meaningful Use Info Meaningful Use Diagnoses (Choose all that apply): AMI - AMI Aspirin given w/in 24hrs of arrival?: Yes ASA at discharge?: No Reason ASA not ordered:: Drug Interaction - discharged on Clopidogrel and eliquis Statins at discharge?: No Reason statins not ordered:: Allergy Will/ARB at discharge?: No Reason Will/ARB not ordered:: Worsening renal dysfunctn Beta Kenisha at discharge?: Yes Done w/ Acute CA measure.: Yes Code Visit Inpatient E&M: 55707 Disch Hosp
--- NOTE | 2017-07-05 15:08 | CASEMGMT ---
ADONIS NAJERA Discharge F/U Phone Call LACE: 12 STRATA: 4 Call Date: 07/05/17 Discharge date: 07/04/17 Time of Call: [id number] Duration: 8 minutes Adm Dx: Chest pain, unstable angina Pt still c/o SOB since home but is not dyspneic on phone with this RN REINALDO at this time. Pt states has been using walker at home at times. Pt asks multiple questions regarding med effects and dosage times at this time and this RN REINALDO assisted pt with answering at this time, pt voices understanding. Advised pt to keep a list of symptoms and questions for when she follows up with Dr. West on 07/12, pt voices understanding and agrees at this time. Pt also provided this ADONIS NAJERA phone number for any future questions/concerns. Pt states has a call out to Dr. Mason's office to schedule appointment with him also. Pt states no suggestions or concerns for [facility] at this time. Pt voices no further questions/concerns/needs at this time. Pt thanked this RN REINALDO for call and clarification. [place] ADONIS NAJERA
== END 2017-07-04 17:31 | disposition home or self-care (01) | DRG 281 ==
LOC: ED 13:05 → PCU 18:44
PROVIDERS: Hospitalist; Internal Medicine Cardiovascular Disease; Admitting Provider Internal Medicine; Emergency Provider Emergency Medicine; Family Provider Family Medicine; PCP Family Medicine; Visit Provider Internal Medicine
DX: I21.4 Non-ST elevation (NSTEMI) myocardial infarction (principal); N17.9 Acute kidney failure, unspecified; I51.81 Takotsubo syndrome; I25.110 Atherosclerotic heart disease of native coronary artery with unstable angina pectoris; E87.5 Hyperkalemia; I48.0 Paroxysmal atrial fibrillation; I49.3 Ventricular premature depolarization; K59.00 Constipation, unspecified; I10 Essential (primary) hypertension; E03.9 Hypothyroidism, unspecified; K21.9 Gastro-esophageal reflux disease without esophagitis; G47.00 Insomnia, unspecified; F32.9 Major depressive disorder, single episode, unspecified; F41.9 Anxiety disorder, unspecified; Z79.01 Long term (current) use of anticoagulants; Z79.02 Long term (current) use of antithrombotics/antiplatelets; Z79.82 Long term (current) use of aspirin; Z79.899 Other long term (current) drug therapy; Z95.2 Presence of prosthetic heart valve; Z95.1 Presence of aortocoronary bypass graft; Z95.5 Presence of coronary angioplasty implant and graft
CPT/HCPCS: 36415; 71045; 80048; 80053; 80061; 81002; 83735; 83880; 84132; 84436; 84439; 84443; 84481; 84484; 85025; 85610; 85730; 93005; 93306; 93459; 99152; 99153; 99285; J0153; J7030; Q9967; A4216; C1769; J2405

== ENCOUNTER 2018-01-04 09:35 | Emergency (ER) | payer MEDICARE, SELFPAY ==
[2018-01-04 09:36] VITALS: BP 219/82; PULSE 75; RESP 23; TEMP 36.4; O2SAT 96; BMI 38.8
[2018-01-04 09:39] VITALS: BP 204/75; PULSE 72; RESP 16; O2SAT 95
--- NOTE | 2018-01-04 10:58 | EKG12_ITS ---
Test Reason : CP Blood Pressure : / mmHG Vent. Rate : 078 BPM Atrial Rate : 078 BPM P-R Int : 228 ms QRS Dur : 118 ms QT Int : 414 ms P-R-T Axes : 039 -23 095 degrees QTc Int : 471 ms Sinus rhythm with 1st degree A-V block Incomplete left bundle branch block ST & T wave abnormality, consider lateral ischemia Abnormal ECG Confirmed by MANPREET JIMENEZ, OZ ([id number]), fashion editor SAMEERA CARNEY ([id number]) on 01/06/2018 12:01:24 PM Referred By: TUTU Confirmed By:OZ CASE MD
--- NOTE | 2018-01-04 11:14 | RAD_ITS ---
STUDY: X-RAY CHEST REASON FOR EXAM: Female, 82 years old. Sternal chest pain. TECHNIQUE: PA and lateral views of the chest. COMPARISON: Comparison is made with prior study dated June 30, 2017. FINDINGS: EKG electrodes are seen. Once again, there is evidence of increased interstitial markings in both lungs worse in the left lower lobe suggestive of interstitial scarring. There is no demonstrated pleural abnormality. Sternal cerclage wires and vascular clips are present from a prior sternotomy and coronary artery bypass graft procedure (CABG). Normal mediastinum and seun. Normal visualized pulmonary arteries. There is atherosclerotic tortuosity of the aortic arch and descending thoracic aorta. There are diffuse degenerative changes of the visualized thoracic spine. There is degenerative osteoarthritis of the bilateral shoulders. Moderate sized hiatal hernia. RAD/Chest PA and Lateral IMPRESSION: Increased interstitial markings in both lungs suggestive of interstitial scarring. There has been essentially no change. Electronically Signed: Manish Zapata MD at 11:30 EST Tel [phone], Service support ,
[2018-01-04 11:20] LABS: International Normalized Ratio 1.3; Prothrombin Time (Protime)PT. 16.4 SECONDS (11.7-14.9)
[2018-01-04 11:21] LABS: Absolute Lymphocyte Count 1.37 X10^3/ul (0.83-4.51); Absolute Neutrophil Count 4.5 X10^3/uL (2.0-7.7); Basophil# 0.05 X10^3/uL; Basophil% 0.7 % (0-1); Eosinophil# 0.31 X10^3/uL; Eosinophils% 4.5 % (0-5); Hematocrit 38.5 % (37-47); Hemoglobin 12.5 g/dl (12.0-15.0); Lymphocyte # 1.37 X10^3/ul (4.0); Lymphocyte % 19.8 % (19-41); Mean Corp Hgb Conc 32.5 g/gl (32-36); Mean Corpuscular Hgb 32.6 pg (27.0-32.0); Mean Corpuscular Volume 100.3 fL (81-99); Monocyte# 0.65 X10^3/uL; Monocyte% 9.4 % (0-10); Platelet Count 200 K/mm3 (150-450); RBC Distribution Width CV 12.6 % (11.6-14.6); RBC Distribution Width SD 45.4 fl (35.1-43.9); Red Blood Count 3.84 M/mm3 (4.2-5.4); White Blood Count 6.9 K/mm3 (4.4-11.0)
[2018-01-04 11:29] LABS: Anion Gap 11 (5-15); BUN 36 mg/dL (7-18); BUN/Creat Ratio 20.3 RATIO (10-20); Calcium,Total 9.2 mg/dL (8.5-10.1); Chloride 107 mmol/L (98-107); Creatinine, Serum 1.77 mg/dL (0.55-1.02); EST Glomerular Filtration Rate 29 mL/min (>60); Est Glom Filt Rate - Afr Amer 35 mL/min (>60); Estimated Creatinine Clearance 18.21 ml/min; Glucose 126 mg/dL (74-106); Potassium 3.9 mmol/L (3.5-5.1); Sodium Level 142 mmol/L (136-145)
[2018-01-04 11:30] LABS: POSITIVE COUNT NO; POSITIVE DIFFERENTIAL NO; POSITIVE MORPHOLOGY NO
[2018-01-04 11:37] VITALS: PULSE 53; RESP 19; O2SAT 95
[2018-01-04] MEDS: Aspirin 81 MG TAB.CHEW 324 MG PO (11:39)
--- NOTE | 2018-01-04 13:31 | ED.VISSUMM ---
- ER Visit Summary Date of Service: 01/04/18 Chief Complaint: Chest discomfort History of Present Illness: The patient is a 82 F presenting with 2 weeks of cough that is becoming productive. For the past 24 hours she has had chest discomfort. It has been fairly constant but is much worse with coughing. It is somewhat worse not really with exertion but rather with coughing episodes. It is not pleuritic. It does not feel like her previous cardiac pain. She is concerned that she has pneumonia as she gets this every year around this time. No fever, chills, body aches. No confusion. No back pain. No lower extremity pain or swelling. She has a fairly extensive cardiac history but has been compliant with all of her medication and has been doing quite well recently. Physical Examination: Pressure is elevated but other vitals are within normal limits. Pulse ox is 100% on room air. She is not in distress. She is sitting up in bed, quite well appearing. Appears much younger than her stated age. Neck is supple. Heart tones are regular. She has an artificial valve. Lungs are clear bilaterally. Abdomen is soft and nontender. No tenderness along lower extremity venous system, palpable cords, or other evidence of DVT. She has strong pulses in all extremities. Test Results: His are within normal limits except that her creatinine is slightly elevated above baseline. Troponin is negative despite the elevated creatinine. Chest x-ray is negative for infiltrate. EKG unremarkable. She appears quite well and is resting comfortable. She certainly has multiple cardiac risk factors so I did discuss the possibility of admitting her as observation for serial enzymes. She feels strongly about going home and states that she absolutely does not want to stay in hospital because she needs to make things giving dinner for her family and needs to get home so that she can take a pumpkin pie. She assures me that she has had the pain fairly constantly for the past nearly 24 hours and does have a negative troponin which is reassuring. Additionally, she states that this feels more like a respiratory issue due to an infection rather than a cardiac issue. She feels strongly that she has some sort of respiratory infection because her cough has been becoming productive of green sputum. Because of the duration of her symptoms, I do think it is reasonable to treat her with antibiotics. She will be started on doxycycline. I did discuss the case with her manager distribution center, Dr. Mason to arrange close follow-up but at this point, she feels strongly about going home. She assures me that she will return if she has any recurrence of chest discomfort. Additionally, her blood pressure was somewhat elevated on arrival. She states that she recently was switched to 12.5 mg of Lopressor down from 100 mg. She would like to go back up to 25 mg and actually did take 25 mg just prior to arrival. I discussed this with her manager distribution center as well and he agrees that she should go back on the 25 mg and follow-up closely. Emergency Department Course and Treatment: Oral doxycycline, increase Lopressor Treatment Plan: Follow-up with Dr. Mason Disposition: Home stable Impression: Initial encounter acute lower respiratory tract infection This note was generated with [employer] dictation software. It may contain incorrect words, spelling, and punctuation that were not noted in review of the chart prior to signing ED Disposition - Plan for ED Patient: Chief Complaint: Chest Pain Instructions: ED Chest Pain Atypical Unkn Cause, Acute Bronchitis Prescriptions: Doxycycline Monohydrate 100 mg PO BID #14 capsule Referrals: Matteo West III, MD [Primary Care Provider] - As soon as possible
--- NOTE | 2018-01-04 13:41 | ED.DCSUM_ITS ---
- ER Visit Summary Date of Service: 01/04/18 Chief Complaint: Chest discomfort History of Present Illness: The patient is a 82 F presenting with 2 weeks of cough that is becoming productive. For the past 24 hours she has had chest discomfort. It has been fairly constant but is much worse with coughing. It is somewhat worse not really with exertion but rather with coughing episodes. It is not pleuritic. It does not feel like her previous cardiac pain. She is concerned that she has pneumonia as she gets this every year around this time. No fever, chills, body aches. No confusion. No back pain. No lower extremity pain or swelling. She has a fairly extensive cardiac history but has been compl iant with all of her medication and has been doing quite well recently. Physical Examination: Pressure is elevated but other vitals are within normal limits. Pulse ox is 100% on room air. She is not in distress. She is sitting up in bed, quite well appearing. Appears much younger than her stated age. Neck is supple. Heart tones are regular. She has an artificial valve. Lungs are clear bilaterally. Abdomen is soft and nontender. No tenderness along lower extremity venous system, palpable cords, or other evidence of DVT. She has strong pulses in all extremities. Test Results: His are within normal limits except that her creatinine is slightly elevated above baseline. Troponin is negative despite the elevated creatinine. Chest x-ray is negative for infiltrate. EKG unremarkable. She appears quite well and is resting comfortable. She certainly has multiple cardiac risk factors so I did discuss the possibility of admitting her as ob servation for serial enzymes. She feels strongly about going home and states that she absolutely does not want to stay in hospital because she needs to make things giving dinner for her family and needs to get home so that she can take a pumpkin pie. She assures me that she has had the pain fairly constantly for the past nearly 24 hours and does have a negative troponin which is reassuring. Add itionally, she states that this feels more like a respiratory issue due to an infection rather than a cardiac issue. She feels strongly that she has some sort of respiratory infection because her cough has been becoming productive of green sputum. Because of the duration of her symptoms, I do think it is reasonable to treat her with antibiotics. She will be started on doxycycline. I did discuss the case with her project manager senior, Dr. Mason to arrange close follow- up but at this point, she feels strongly about going home. She assures me that she will return if she has any recurrence of chest discomfort. Additionally, her blood pressure was somewhat elevated on arrival. She states that she recently was switched to 12.5 mg of Lopressor down from 100 mg. She would like to go back up to 25 mg and actually did take 25 mg just prior to arrival. I discussed this with her project manager senior as well and he agrees that she should go back on the 25 mg and follow-up closely. Emergency Department Course and Treatment: Oral doxycycline, increase Lopressor Treatment Plan: Follow-up with Dr. Mason Disposition: Home stable Impression: Initial encounter acute lower respiratory tract infection This note was generated with [employer] dictation software. It may contain incorrect words, spelling, and punctuation that were not noted in review of the chart prior to signing ED Disposition - Plan for ED Patient: Chief Complaint: Chest Pain Instructions: ED Chest Pain Atypical Unkn Cause, Acute Bronchitis Prescriptions: Doxycycline Monohydrate 100 mg PO BID #14 capsule Referrals: Matteo West III, MD [Primary Care Provider] - As soon as possible
[2018-01-04 13:54] VITALS: BP 174/61; PULSE 54; PULSE 56; RESP 17; RESP 18; O2SAT 96; O2SAT 97
[2018-01-04] MEDS: Doxycycline 100 MG CAPSULE PO (14:09)
== END 2018-01-04 14:11 | disposition home or self-care (01) ==
LOC: ED 10:59
PROVIDERS: Emergency Provider Emergency Medicine; Family Provider Family Medicine; PCP Family Medicine
DX: J40 Bronchitis, not specified as acute or chronic (principal); I25.10 Atherosclerotic heart disease of native coronary artery without angina pectoris; I10 Essential (primary) hypertension; Z79.01 Long term (current) use of anticoagulants; Z79.02 Long term (current) use of antithrombotics/antiplatelets; Z79.899 Other long term (current) drug therapy; Z95.1 Presence of aortocoronary bypass graft; Z95.5 Presence of coronary angioplasty implant and graft
CPT/HCPCS: 71046; 80048; 84484; 85025; 85610; 93005; 99285; A4216

== ENCOUNTER → 2018-03-07 10:22 | Outpatient (CLI) | payer MEDICARE, SELFPAY ==
[2018-03-07 09:40] VITALS: BMI 38.8
[2018-03-07 11:40] LABS: AST(SGOT) 16 U/L (15-37); Alanine Aminotransfer ALT/SGPT 17 U/L (13-56); Albumin, Serum 3.8 g/dL (3.2-5.0); Alkaline Phosphatase 75 U/L (45-117); Anion Gap 8 (5-15); BUN 32 mg/dL (7-18); BUN/Creat Ratio 20.6 RATIO (10-20); Calcium,Total 9.2 mg/dL (8.5-10.1); Chloride 109 mmol/L (98-107); Creatinine, Serum 1.55 mg/dL (0.55-1.02); EST Glomerular Filtration Rate 34 mL/min (>60); Est Glom Filt Rate - Afr Amer 41 mL/min (>60); Glucose 107 mg/dL (74-106); Potassium 4.7 mmol/L (3.5-5.1); Protein, Total 7.8 g/dL (6.4-8.2); Sodium Level 142 mmol/L (136-145); T4 Free Direct 1.17 ng/dL (0.76-1.46); Thyroid Stim Hormone (TSH) 5.62 uIU/mL (0.358-3.74)
--- OUTSIDE RECORDS SUMMARY | 2018-05-09 13:05 | XMS RPT_ITS ---
:1935 Author Organization OHIP Support Name Relationship Address Phone BALJIT MARIE Unavailable [address] + [place] [address] R Unavailable Unavailable Unavailable NOLAN HUSTON Unavailable [address] + [place] [address] BALJIT MARIE Unavailable [address] + [place] [address] R Unavailable Unavailable Unavailable NOLAN HUSTON Unavailable [address] + [place] [address] MARIE, BALJIT Unavailable [address] + [place] [address] R Unavailable Unavailable Unavailable NOLAN HUSTON Unavailable [address] + [place] [address] BALJIT MARIE Unavailable [address] + [place] [address] R Unavailable Unavailable Unavailable NOLAN HUSTON Unavailable [address] + [place] [address] ANDREZ MARIE Unavailable [address] + [place] [address] R Unavailable Unavailable Unavailable NOLAN HUSTON Unavailable [address] + [place] [address] MARIE, ANDREZ Unavailable [address] + [place] [address] R Unavailable Unavailable Unavailable NOLAN HUSTON Unavailable [address] + [place] [address] MARIE, ANDREZ Unavailable [address] + [place] [address] R Unavailable Unavailable Unavailable NOLAN HUSTON Unavailable [address] [phone] [place] [address] MARIE, [place] Unavailable [address] + [place] [address] R Unavailable Unavailable Unavailable NOLAN HUSTON Unavailable [address] [phone] [place] [address] MARIE, [place] Unavailable [address] + [place] [address] R Unavailable Unavailable Unavailable NOLAN HUSTON Unavailable [address] [phone] [place] [address] MARIE, [place] Unavailable [address] + [place] [address] R Unavailable Unavailable Unavailable NOLAN HUSTON Unavailable [address] [phone] [place] [address] MARIE, [place] Unavailable [address] + [place] [address] R Unavailable Unavailable Unavailable NOLAN HUSTON Unavailable [address] [phone] [place] [address] MARIE, [place] Unavailable [address] + [place] [address] R Unavailable Unavailable Unavailable NOLAN HUSTON Unavailable [address] + [place] [address] MARIE, [place] Unavailable [address] + [place] [address] R Unavailable Unavailable Unavailable NOLAN HUSTON Unavailable [address] [phone] [place] [address] MARIE, [place] Unavailable [address] + [place] [address] R Unavailable Unavailable Unavailable NOLAN HUSTON Unavailable [address] [phone] [place] [address] MARIE, [place] Unavailable [address] + [place] [address] R Unavailable Unavailable Unavailable NOLAN HUSTON Unavailable [address] [phone] [place] [address] MARIE, [place] Unavailable [address] + [place] [address] R Unavailable Unavailable Unavailable NOLAN HUSTON Unavailable [address] [phone] [place] [address] MARIE, [place] Unavailable [address] + [place] [address] R Unavailable Unavailable Unavailable HUSTON NOLAN Unavailable [address] [phone] [place] [address] Care Team Providers Name Role Phone STAR SWAIN Attending Unavailable CEBUL III, ADAIR A Referring Unavailable STAR SWAIN Attending Unavailable CEBUL, ADAIR Referring Unavailable CEBUL, ADAIR Primary Care Unavailable Montserrat Villa Attending Unavailable Cebul III, Adair Referring Unavailable Montserrat Villa Attending Unavailable Montserrat Villa Referring Unavailable Cebul III, Adair Primary Care Unavailable Isabella, [place] Attending Unavailable Cebul III, Adair Primary Care Unavailable Ramon Osei Attending Unavailable Isabella, Jose Attending Unavailable Cebul III, Adair Referring Unavailable Cebul III, Adair Primary Care Unavailable Abbie Lopez Attending Unavailable Abbie Lopez Attending Unavailable Isabella, [place] Attending Unavailable Jayden, Alexey Admitting Unavailable Sementi, Jessica Attending Unavailable Cebul III, Adair Primary Care Unavailable Isabella, Jose Consulting Unavailable Sementi, Jessica Consulting Unavailable Jayden, Alexey Admitting Unavailable Isabella, Jose Attending Unavailable Cebul III, Adair Primary Care Unavailable Isabella, Jose Consulting Unavailable Sementi, Jessica Consulting Unavailable Jayden, Alexey Admitting Unavailable Satya Khan Attending Unavailable Cebul III, [place] Primary Care Unavailable Isabella, [place] Consulting Unavailable Sementi, Jessica Consulting Unavailable Jayden, Alexey Admitting Unavailable Sementi, Jessica Attending Unavailable Cebul III, [place] Primary Care Unavailable Isabella, [place] Consulting Unavailable Sementi, Jessica Consulting Unavailable Jayden, Alexey Admitting Unavailable Sementi, Jessica Attending Unavailable Cebul III, [place] Primary Care Unavailable Isabella, [place] Consulting Unavailable Sementi, Jessica Consulting Unavailable Jayden, Alexey Admitting Unavailable ImaniisSatya haider Attending Unavailable Cebul III, [place] Primary Care Unavailable Isabella, [place] Consulting Unavailable Sementi, Jessica Consulting Unavailable Jayden, Alexey Admitting Unavailable JoeelfWilla huertam Attending Unavailable Cebul III, [place] Primary Care Unavailable Isabella, [place] Consulting Unavailable Ashelfah, Ghasem Consulting Unavailable Jayden, Alexey Admitting Unavailable Jayden, Alexey Attending Unavailable Cebul III, [place] Primary Care Unavailable Jayden, Alexey Consulting Unavailable Cebul III, [place] Primary Care Unavailable Jayden, Alexey Admitting Unavailable Isabella, Jose Consulting Unavailable Jessica Rivers Attending Unavailable STAR SWAIN Referring Unavailable CEBUL III, ADAIR Berkley Attending Unavailable CEBUL III, ADAIR A Attending Unavailable CEBUL III, ADAIR A Referring Unavailable CEBUL III, ADAIR A Attending Unavailable CEBUL III, ADAIR A Referring Unavailable CEBUL III, ADAIR A Referring Unavailable CEBUL III, ADAIR A Referring Unavailable CEBUL III, ADAIR A Referring Unavailable CEBUL III, ADAIR A Attending Unavailable CEBUL III, ADAIR A Referring Unavailable CEBUL III, ADAIR A Referring Unavailable LIZZY CANALES ([facility]) Attending Unavailable PROBLEMS PROBLEMS DATE TYPE CONDITION / CODE ATTENDING STATUS SOURCE Unknown I50.42 - Chronic [place], Active [place] [facility] combined systolic [facility] (congestive) and Hospital diastolic (congestive) Repository heart failure / I50.42(ICD-10) Unknown I10 - Essential [place], Active [place] [facility] (primary) hypertension [facility] / I10(ICD-10) Hospital Repository Unknown I48.0 - Paroxysmal [place], Active [place] 9 atrial fibrillation / [facility] I48.0(ICD-10) Hospital Repository Unknown I27.21 - Secondary [place], Active [place] 9 pulmonary arterial [facility] hypertension / Hospital I27.21(ICD-10) Repository Unknown I25.10 - [place], Active [place] 9 Atherosclerotic heart [facility] disease of [facility] coronary artery Repository without angina pectoris / I25.10(ICD-10) Unknown I51.81 - Takotsubo Daisy, Active [place] [facility] syndrome / [facility] I51.81(ICD-10) Hospital Repository Active Unknown / UNK(Unknown) LIZZY CANALES Active [place] 8 (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) Clinic Main [place] Repository Active Other intermediate card tender NA Active [place] 8 (current) drug therapy Clinic Main / Z79.899(ICD-10) [place] Repository Unknown Z95.1 - Presence of Isabella, Jose Active [place] 8 aortocoronary bypass Community graft / Z95.1(ICD-10) Hospital Repository Unknown Z95.3 - Presence of [place]abella, Jose Active [place] 8 xenogenic heart valve Community / Z95.3(ICD-10) Hospital Repository Active Chronic kidney NA Active [place] [address] disease, stage 3 Clinic Main (moderate) / [place] N18.3(ICD-10) Repository Active Hypothyroidism, NA Active [place] [address] unspecified / Clinic Main E03.9(ICD-10) [place] Repository Active Acute on chronic NA Active [place] [address] combined systolic Clinic Main (congestive) and [place] diastolic (congestive) Repository heart failure / I50.43(ICD-10) Unknown R94.31 - Abnormal Isabella, [place] Active [place] 8 electrocardiogram Community [ECG] [EKG] / Hospital R94.31(ICD-10) Repository Active Atherosclerotic heart BRYNN Active [place] [address] disease of [place] traverse [facility] Other coronary artery [place] without angina Repository pectoris / I25.10(ICD-10) Active Paroxysmal atrial BRYNN Active [place] [address] fibrillation / [facility] Other I48.0(ICD-10) [place] Repository Admitting Unknown / UNK(Unknown) BRYNN Active [place] [address] diagnosis [facility] [place] Repository PROCEDURES PROCEDURES No Procedure Records FoundRESULTS RESULTS OBSOLETE Observed: 03/10/2018 Status: COMPLETED Source: [place] 12:00 AM [facility] REPOSITORY Refill (ISABELLA) GALILEO HUSTON ([id number]) 1935 F NFR Date Time Provider Department 03/10/18 STAR SWAIN During your visit today, we recorded the following information about you: Star Swani MD 03/10/2018 3:10 PM Signed She has established with Dr. Gibson and should get prescriptions there. She should not be on Plavix anymore. Star Swain MD Allergies As of Date: 03/10/2018 Noted Allergy Reaction bandaids [Other] 09/30/2005 LIPITOR (ATORVASTATIN CALCIUM) 07/22/2016 17 - Myalgia LYRICA (PREGABALIN) 11/30/2010 1 - Mental Status Change NIACIN 11/30/2010 14 - Other: See Comments Comments: myalgia ZOCOR (SIMVASTATIN) 08/09/2011 14 - Other: See Comments Comments: myalgia Date Reviewed: 01/09/2018 Reviewed by: Angelica Ivy) ANGELES Winters - Fully Assessed Reason for Visit: Refill Request [94] Prescriptions as of 03/10/2018 Sig: OMEPRAZOLE 20 MG CAPSULE,MANUEL* Take 1 capsule by mouth daily* DOXYCYCLINE MONOHYDRATE 100 M* TWICE A DAY SPIRONOLACTONE 25 MG TABLET Take 1 tablet by mouth twice * FERROUS SULFATE 325 MG (65 MG* Take 1 tablet by mouth daily * METOPROLOL TARTRATE 25 MG TAB* Take 0.5 tablets by mouth twi* LEVOTHYROXINE 125 MCG TABLET Take 1 tablet by mouth once d* FUROSEMIDE 20 MG TABLET Take 1 tablet by mouth twice * MIRTAZAPINE 15 MG TABLET Take 15 mg by mouth daily at * COLACE ORAL Take 240 mg by mouth twice da* AMIODARONE 200 MG TABLET Take 1 tablet by mouth once d* APIXABAN 5 MG TABLET Take 1 tablet by mouth twice * CLOPIDOGREL 75 MG TABLET Take 1 tablet by mouth once d* BENZONATATE 100 MG CAPSULE Take 1 capsule by mouth three* MELATONIN 10 MG CAPSULE Take by mouth. CALCIUM CARBONATE 600 MG (1,5* Take 1 tablet by mouth once d* NITROGLYCERIN 0.4 MG SUBLINGU* Dissolve 1 tablet under the t* MAGNESIUM 250 MG TABLET 2 tablets in the morning and * Patient taking differently: 250 mg twice daily. 2 tablets* * THERAPEUTIC MULTIVITAMIN TABL* Take one(1) tablet daily. * FISH OIL 1,200 MG-144 MG-216 * one capsule every other day Problem List As Of Date 03/10/2018 Noted Resolved Essential hypertension, benign [I10] INVALID FOR* More... 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 More... Sciatica [M54.30] INVALID FOR*03/02/2016 PUD (peptic ulcer disease) [K27.9] INVALID FOR* Mild cognitive impairment with memory loss [G31*INVALID FOR*07/26/2017 Class 3 severe obesity due to excess calories w*INVALID FOR* Magnesium deficiency [E61.2] INVALID FOR*03/02/2016 ASHD (arteriosclerotic heart disease) [I25.10] INVALID FOR* Acute myocardial infarction (HCC) [I21.9] INVALID FOR* Moderate aortic stenosis [I35.0] INVALID FOR* Moderate aortic valve insufficiency [I35.1] INVALID FOR* Arthritis of both hands [M19.041, M19.042] INVALID FOR* Chronic congestive heart failure (HCC) [I50.9] INVALID FOR* Impaired fasting glucose [R73.01] INVALID FOR* Screening for colon cancer [Z12.11] INVALID FOR* Gastroesophageal reflux disease with esophagiti*INVALID FOR* History of aortic valve replacement [Z95.2] INVALID FOR* More... S/P CABG x 2 [Z95.1] INVALID FOR* More... Atrial fibrillation (HCC) [I48.91] INVALID FOR* More... 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 [place] [address] OFFICE VISIT Date of Service: 03/07/18 MR#: [id number] Acct: [id number] Name: GALILEO HUSTON Rep #: [id number] : 1935 Provider: Montserrat Villa Age/Sex: 83/F Location: [facility] Status: Signed HPI HPI Chief Complaint: Follow up Details: GALILEO HUSTON, is a 83 F who presents to the office today for a cardiovascular follow-up. She is established with us following a hospital stay in 2018 for takotsubo cardiomyopathy. She does have a history of coronary artery disease with bypass surgery. She had an VALERIO to the LAD and SVG to the posterior descending. She also has a bioprosthetic aortic valve, diastolic dysfunction, hypertension, pulmonary hypertension, paroxysmal atrial fibrillation. She does not have any chest discomfort/heaviness/tightness. She does not have any worsening symptoms of shortness of breath. Although she does get SOB walking up hills, this is what she would expect. She does not have any orthopnea. She denies PND. She does not have any symptoms of congestive heart failure. She does not have any palpitations that she is aware of. She does not have any lightheadedness or dizziness. She does not have any near-syncope or syncope. She does not have any lower extremity edema. She does not have any symptoms of claudication. Pt also does complain of fatigue, she feels that this should be better than it is. She has not yet discussed this with her PCP Intake Vital Signs03/07/18 Body Mass Index (BMI) 38.8 03/07/18 Height 5 ft 03/07/18 Weight: 201 lb 3 oz 03/07/18 Body Mass Index (BMI) 39.2 Intake Visit Reasons: 6 M FU Accompanied by: Is patient in pain?: No Allergies atorvastatin [From Lipitor] Adverse Reaction (Verified 03/07/18 09:33) Pain in joints niacin Adverse Reaction (Verified 03/07/18 09:33) Pain in joints pregabalin [From Lyrica] Adverse Reaction (Verified 03/07/18 09:33) Other simvastatin [From Zocor] Adverse Reaction (Verified 03/07/18 09:33) Pain in joints Medications Calcium Carbonate/Vitamin D3 [Calcium 500-Vit D3 600 Tablet] 1 ea PO DAILY 02/24/16 [History Confirmed 03/07/18] Clopidogrel Bisulfate [Plavix] 75 mg PO DINNER 02/24/16 [History Confirmed 03/07/18] Docusate Sodium [Colace] 240 mg PO BID 02/24/16 [History Confirmed 03/07/18] Multivitamin [Multiple Vitamins] 1 ea PO DAILY 02/24/16 [History Confirmed 03/07/18] Nitroglycerin [Nitrostat] 0.4 mg SUBLINGUAL Q5M PRN 02/24/16 [History Confirmed 03/07/18] [place]-3S/Dha/Epa/Fish Oil/D3 [Fish Oil-Vit D3 Softgel] 1 ea PO QODAY 02/24/16 [History Confirmed 03/07/18] Omeprazole 20 mg PO DAILY 02/24/16 [History Confirmed 03/07/18] Apixaban [Eliquis] 5 mg PO BID #60 tab 11/16/16 [Rx Confirmed 03/07/18] Amiodarone HCl [Cordarone] 200 mg PO DAILY 06/30/17 [History Confirmed 03/07/18] Benzonatate [Tessalon Perle] 100 mg PO TID PRN 06/30/17 [History Confirmed 03/07/18] Furosemide [Lasix] 20 mg PO BID 06/30/17 [History Confirmed 03/07/18] Lorazepam [Ativan] 0.5 mg PO BID PRN PRN 06/30/17 [History Confirmed 03/07/18] levothyroxine 75 mcg capsule 100 mcg PO QDAY cap 08/31/17 [History Confirmed 03/07/18] magnesium oxide 250 mg tablet 500 mg PO QDAY tab 08/31/17 [History Confirmed 03/07/18] spironolactone 25 mg tablet 25 mg PO QDAY 08/31/17 [History Confirmed 03/07/18] metoprolol tartrate 25 mg tablet 25 mg PO BID #60 tab 01/09/18 [Rx Confirmed 03/07/18] Ejection fraction %: 60 to 64 PFSH Medical History 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) Nonrheumatic aortic valve insufficiency (Chronic) Nonrheumatic mitral (valve) insufficiency (Chronic) Secondary pulmonary arterial hypertension (Chronic) Paroxysmal atrial fibrillation (Chronic) Obesity (BMI 30-39.9) (Chronic) Takotsubo cardiomyopathy (Acute) Atherosclerosis of coronary artery of [place] heart without angina pectoris (Chronic) HTN (hypertension) (Chronic) Acquired hypothyroidism (Chronic) Anemia (Chronic) Anxiety and depression (Chronic) Chronic kidney disease, stage 3 (Chronic) Esophagitis (Chronic) Insomnia (Chronic) PUD (peptic ulcer disease) (Chronic) Acute kidney injury (Inactive) Surgical History H/O coronary artery bypass surgery (Chronic 01/2016) History of aortic valve replacement with bioprosthetic valve (Chronic 01/2016) History of coronary artery stent placement (Chronic 2014) Family History Mother Diabetes Heart disease Other CAD (coronary artery disease) Social History Smoking Status: Never smoker alcohol intake: never caffeine: Yes Type: coffee ROS Const Const: Negative for fatigue, weakness, difficulty sleeping, frequent falls, headache(s) or excessive sweating Eyes Eyes: Negative for loss of peripheral vision, transient loss of vision, blurry vision or double vision ENT ENT: Negative for headache(s) or balance problems Cardio Chest Pain: No Edema: None Muscle aches with walking: None Resp Respiratory: Positive for SOB with activity (SOB if walking long distance); negative for SOB at rest, SOB orthopnea\SOB lying down or paroxysmal nocturnal dyspnea GI GI: Negative nausea or heartburn : Negative for hematuria Musc Musc: Negative for muscle aches/ myalgia, muscle weakness, joint pain or balance problems Skin Skin: Negative non-healing lesions, unusual bruising or rash Neuro Neuro: Negative for weakness, frequent falls, headache(s), blurry vision or double vision Quentin Hematologic/Lymphatic: Negative for easy bruising Endo Endo: Negative for fatigue or excessive sweating Psych Psych: Negative for anxiety or depression Allergy Allergy/Immunology: Negative for rash Cardiology Exam Const Appearance: cooperative, no acute distress and well developed Orientation: alert, awake and oriented x3 Head Head: normocephalic and atraumatic Mouth: moist mucous membranes Eyes General: appearance normal, both eyes and all related structures Conjunctivae: conjunctivae normal Pupils: PERRL EOM: EOM intact bilaterally Neck Neck: normal visual inspection, no lymphadenopathy and no JVD Carotids: Negative bruit Neck Mass: Negative Neck mass Chest Chest inspection: normal inspection of the chest, symmetric chest movement and midline sternotomy incision Auscultation: Bilateral: Diminished Lung Sounds (scattered rhonchi on left base) Cardio Palpation: normal PMI Rate: regular rate Rhythm: regular rhythm Heart sounds: S1 normal, S2 normal and murmur; negative rub or gallop Murmur: soft, Grade 1/6 and mid systolic GI GI: normal to inspection, soft, no hepatosplenomegaly and bowel sounds present; negative tender Neuro General: alert, awake, oriented x3, CN's II-XI intact bilaterally and moves all extremities Extremities Pulses: Normal: Right Posterior Tibial Pulse, Left Posterior Tibial Pulse, Right Radial Pulse, Left Radial Pulse Lower Extremity Edema: None: Bilateral Psych Psychological: normal affect Assessment AND Plan 1. Paroxysmal atrial fibrillation I48.0 Plan - SAJAN Self Patient has maintained sinus rhythm. She is anticoagulated with a factor Xa inhibitor. She is on rate limiting medication. She is also on amiodarone. Since she is on amiodarone would like to obtain liver functions and thyroid test. In addition to a pulmonary function test. Orders Orders: 2. Takotsubo cardiomyopathy I51.81 Plan - SAJAN Self Patient does complain of fatigue. She did have tach at [facility] while she was in the hospital in June 2017. Would like to reevaluate her LV function with her symptoms of fatigue. Patient is also on diuretics. Would like to obtain a BMP as readings in December were elevated compared to previous. Orders Orders: 3. 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 We recommend that they continue with current aggressive medical management and risk factor modification. Orders Orders: 4. Essential hypertension I10 SAJAN Yu Blood pressure is well controlled on current medications, we do not recommend any changes at this time. Orders Orders: 5. History of aortic valve replacement with bioprosthetic valve Z95.3 Plan - SAJAN Self Recent echocardiogram has been reviewed. We will continue to monitor by history, exam and echocardiograms as deemed appropriate. Patient will continue with antibiotic prophylaxis. Plan Detail Other Orders Orders: Additional Comments - SAJAN Self The above patient was discussed with Dr. Gibson he agrees with plan of care. Thank you for allowing us to participate in patient's plan of care, if you have any questions please do not hesitate to call. This note was generated using a voice recognition system and there may be incorrect words, spelling or punctuation errors that were not noted when reviewing the office note prior to saving. 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 ELECTRICIAN) Coding Level of Care Code Off vis,est,level 4 Diagnoses Paroxysmal atrial fibrillation I48.0 Takotsubo cardiomyopathy I51.81 Atherosclerosis of [place] coronary artery of [place] heart without angina pectoris I25.10 Coronary Disease-Associated Artery/Lesion type: [place] artery Essential hypertension I10 Hypertension type: essential hypertension History of aortic valve replacement with bioprosthetic valve Z95.3 Coding Level of Care Code Off vis,est,level 4 Diagnoses Paroxysmal atrial fibrillation I48.0 Takotsubo cardiomyopathy I51.81 Atherosclerosis of [place] coronary artery of [place] heart without angina pectoris I25.10 Coronary Disease-Associated Artery/Lesion type: [place] artery Essential hypertension I10 Hypertension type: essential hypertension History of aortic valve replacement with bioprosthetic valve Z95.3 Supplemental Info Supplemental Information Echocardiogram in 2018 demonstrated: Normal LV size. The estimated ejection fraction is 45 %. Mild segmental systolic dysfunction (see wall motion). Transmitral diastolic flow velocities suggest severe (stage 3) diastolic dysfunction The left atrium is moderately enlarged. Mild to moderate (1-2+) tricuspid valve insufficiency. Bioprosthetic aortic valve. Mild-Moderate (1- 2+) eccentric aortic valve insufficiency. Heart cath in 2018 demonstrated: Patent left internal mammary artery to the left anterior descending artery, and saphenous vein graft to posterior descending artery. The [place] traverse vessels also do not demonstrate any high-grade stenosis. Bioprosthetic aortic valve is stable with no gradient. Labs LDL Cholesterol 85 mg/dL (0-130) 18 HDL Cholesterol 38 mg/dL (40-) L 18 Triglycerides 117 mg/dL (-199) 18 VLDL Cholesterol 23 mg/dL (5-40) 05/18/18 Diagnostics Electrocardiogram 01/04/18 Echocardiogram 06/30/17 Cardiac Catheterization 07/04/17 Chest X-Ray 01/04/18 Stress Test Nuclear Medicine 12/25/15 03/07/18 1009 <Electronically signed by Montserrat MOELLER> Date Montserrat MOELLER 03/08/18 1601<Electronically signed by Jose Gibson MD> Cosigner Signature: Date (if applicable) Jose Gibson MD CC: Adair West III, MD COMPREHENSIVE METABOLIC Collected: 03/07/2018 Status: F Source: [place] 10:34 AM [facility] TYPE CODE TESTS RESULT OUT OF RANGE REFERENCE UNITS LAB L501.0100 74-106 mg/dL High GLU 107 Result Comment: Fasting Glucose result from 100 to 125 mg/dL suggests IMPAIRED HOMEOSTASIS per A.D.A. criteria. Please note revised GLUCOSE reference range effective 2017. LAB L501.1000 7-18 mg/dL High BUN 32 LAB L501.1100 0.55-1.02 mg/dL High CREAT,SERUM 1.55 Result Comment: The validity of the calculated GFR AND GFRAA in patients over 70 years has not been determined. Clinical correlation is essential. LAB L501.1110 >60 mL/min Low EST GFR 34 Result Comment: Non- GFR Calc LAB L501.1115 >60 mL/min Low EST GFR - AA 41 Result Comment: GFR Calc LAB L501.1300 10-20 RATIO High BUN/CRE 20.6 LAB L501.1500 6.4-8.2 g/dL T Normal PROT 7.8 LAB L501.1800 3.2-5.0 g/dL Normal ALB 3.8 LAB L501.1950 2.2-4.2 g/dL Normal GLOB 4.0 LAB L501.2000 0.9-2.4 RATIO Normal A/G 1.0 LAB L501.2200 8.5-10.1 mg/dL CA Normal 9.2 LAB L501.4100 15-37 U/L Normal AST 16 LAB L501.4305 45-117 U/L Normal ALK P 75 LAB L501.4405 13-56 U/L Normal ALT 17 LAB L501.4600 0.20-1.00 mg/dL T Normal BILI 0.60 LAB L501.5300 136-145 mmol/L NA Normal 142 LAB L501.5600 3.5-5.1 mmol/L K Normal 4.7 LAB L501.5900 98-107 mmol/L High CL 109 LAB L501.6100 21.0-32.0 mmol/L Normal CO2 25.0 LAB L501.6200 5-15 Normal GAP 8 Performed By: #### L500.4050, L501.9520, L506.0400 #### [facility] [address] [place], [address] THYROID STIM HORMONE Collected: 03/07/2018 Status: F Source: [place] (TSH) 10:34 AM [facility] TYPE CODE TESTS RESULT OUT OF RANGE REFERENCE UNITS LAB L501.9520 0.358-3.74 uIU/mL High TSH 5.62 Performed By: #### L500.4050, L501.9520, L506.0400 #### [facility] [address] [facility] [place], [address] T4 FREE DIRECT Collected: 03/07/2018 Status: F Source: [place] 10:34 AM [facility] [place] TYPE CODE TESTS RESULT OUT OF RANGE REFERENCE UNITS LAB L506.0400 0.76-1.46 ng/dL Normal T4 FREE 1.17 DIRECT Performed By: #### L500.4050, L501.9520, L506.0400 #### [facility] [address] [facility] [place], [address] 12 LEAD ELECTROCARDIOGRAM Observed: 01/13/2018 Status: F Source: [place] 9:16 AM [facility] Cardiovascular Services [address] [place] [id number] 12 Lead EKG 01/04/18 0935 MR#: [id number] Acct: [id number] Name: GALILEO HUSTON Rep #: [id number] : 1935 82 From: Jose Gibson MD Attending Dr: Status: DEP ER Ordering Dr: Geoffrey Osei MD Date: 01/04/18 Location: ED Sex: F C Admitted: Test Reason : CP Blood Pressure : / mmHG Vent. Rate : 078 BPM Atrial Rate : 078 BPM P-R Int : 228 ms QRS Dur : 118 ms QT Int : 414 ms P-R-T Axes : 039 -23 095 degrees QTc Int : 471 ms Sinus rhythm with 1st degree A-V block Incomplete left bundle branch block ST AND T wave abnormality, consider lateral ischemia Abnormal ECG Confirmed by JOSE GIBSON MD ([id number]), order editor SAMEERA CARNEY ([id number]) on 01/06/2018 12:01:24 PM Referred By: TUTU Confirmed By:JOSE GIBSON MD 01/06/18 1201 Date Jose Gisbon MD CC: Ramon Osei MD; Adair West III, MD Signed PROGRESS Observed: 01/09/2018 Status: COMPLETED Source: [place] 2:05 PM [facility] REPOSITORY O ID: [id number] Author: Lizzy Canales Service: (none) Author Type: Nurse Practitioner Type: Progress Notes Filed: 01/09/2018 2:53 PM Note Text: 01/09/2018 Patient presents with: ED Follow-up: bronchitis SUBJECTIVE: This is a 82 year old that is here today for ER follow up. She was seen in [facility] ER 01/04 for cough and chest discomfort. Troponin was negative. CXR negative. EKG unremarkable per ER record. She was encouraged to stay for full cardiac work up with her history, but she felt strongly that she has dealing with a respiratory issue. She was started on doxycycline and continues on it feeling better. She was told to follow up with Dr. Gibson. She states that as of right now she is scheduled with him in Feb. She will call and see if she should be seen sooner. BP was high and she was told to increase lopressor from 12.5 to 25mg. She states that the cough continues, but much better than it was. CP resolved. She has her normal SOC with long walking, but no increase. She is able to do all of her ADLs without concern. PAST MEDICAL HISTORY Diagnosis Date - Acute on chronic combined systolic and diastolic CHF (congestive heart failure) ([facility]) 07/12/2017 - Atrial fibrillation ([facility]) 03/02/2016 following CABG and aortic valve replacement - Cervicitis and endocervicitis - Chronic congestive heart failure (HCC) 03/03/2015 - CKD (chronic kidney disease) stage 3, GFR 30-59 ml/min ([facility]) 07/12/2017 - Coronary artery disease - Diverticulosis of colon (without mention of hemorrhage) Diverticulosis - Esophagitis - Heart attack ([facility]) - History of aortic valve replacement 03/02/2016 - Hypertension - Hypothyroidism, acquired 07/12/2017 - Osteoarthrosis, unspecified whether generalized or localized, other specified sites - PUD (peptic ulcer disease) 12/18/2009 - S/P CABG x 2 03/02/201601/2016--complicated by atrial fibrillation - Statin intolerance 07/22/2016 - Syncope - Unspecified hemorrhoids without mention of complication Hemorrhoids ALLERGIES Bandaids [Other]; Lipitor [Atorvastatin Calcium]; Lyrica [Pregabalin]; Niacin; Zocor [Simvastatin] MEDICATIONS Current Outpatient Prescriptions: doxycycline monohydrate (MONODOX) 100 mg capsule TWICE A DAY spironolactone (ALDACTONE) 25 mg tablet Take 1 tablet by mouth twice daily. ferrous sulfate 325 mg (65 mg iron) tablet Take 1 tablet by mouth daily with breakfast. metoprolol tartrate, short acting, (LOPRESSOR) 25 mg tablet Take 0.5 tablets by mouth twice daily. levothyroxine (SYNTHROID) 125 mcg tablet Take 1 tablet by mouth once daily. Take on empty stomach. For Thyroid furosemide (LASIX) 20 mg tablet Take 1 tablet by mouth twice daily. mirtazapine (REMERON) 15 mg tablet Take 15 mg by mouth daily at bedtime. docusate sodium (COLACE ORAL) Take 240 mg by mouth twice daily. amiodarone (CORDARONE) 200 mg tablet Take 1 tablet by mouth once daily. omeprazole (PRILOSEC) 20 mg capsule Take 1 capsule by mouth daily before breakfast. 1/2 hr before meal. apixaban (ELIQUIS) 5 mg tab(s) Take 1 tablet by mouth twice daily. clopidogrel (PLAVIX) 75 mg tablet Take 1 tablet by mouth once daily. benzonatate (TESSALON PERLE) 100 mg capsule Take 1 capsule by mouth three times daily as needed. melatonin 10 mg cap Take by mouth. calcium carbonate 600 mg-cholecalciferol 200 units (CALCIUM 600 + D,3,) 600 mg(1,500mg) -200 unit tab Take 1 tablet by mouth once daily. nitroglycerin sublingual (NITROQUICK) 0.4 mg SL tablet Dissolve 1 tablet under the tongue as needed. FOR CHEST PAIN. IF NO RELIEF CALL 911 Magnesium 250 mg tab 2 tablets in the morning and 2 tablet in the evening (Patient taking differently: 250 mg twice daily. 2 tablets in the morning and 2 tablet in the evening) therapeutic multivitamin ORAL tablet Take one(1) tablet daily. fish oil/dha/epa(FISH OIL 1,200 MG-144 MG-216 MG CAP) one capsule every other day No current facility-administered medications for this visit. Medications and allergies reviewed by this provider. SOCIAL HISTORY Social History Marital status: Spouse name: Years of education: Number of children: Social History Main Topics Smoking status: Never Smoker Smokeless tobacco: Never Used Alcohol use: No Drug use: No REVIEW OF SYSTEMS see HPI OBJECTIVE: BP 120/74 Pulse 69 Temp 36.8 ?C (98.2 ?F) Resp 16 Wt 91.2 kg (201 lb) SpO2 94% BMI 39.26 kg/m? . Vital signs reviewed by this provider. PHYSICAL EXAMINATION: General appearance: Well appearing, alert, in no acute distress, well-hydrated, well nourished. Skin: Skin color, texture, turgor normal, no suspicious rashes or lesions Head: Normocephalic, no masses, lesions, tenderness or abnormalities Eyes: Anicteric sclera. Lungs: lungs clear to auscultation. No wheezing, rhonchi, rales Heart: RRR without murmur, gallop, or rubs. No ectopy Extremities: No deformities, edema, skin discoloration, clubbing or cyanosis. Good capillary refill. , Pulses: 2+ ASSESSMENT/PLAN: 1. Follow up - ICD9: V67.9, ICD10: Z09 (primary diagnosis) - improving - continue doxycycline as prescribed - follow up with Dr Gibson - follow up with PCP in 4 months or sooner if needed 2. Bronchitis - ICD9: 490, ICD10: J40 - see above Lizzy Canales APRN.CNP CNOV Observed: 01/09/2018 Status: COMPLETED Source: [place] 2:00 PM [facility] REPOSITORY [facility] GALILEO HUSTON ([id number]) 1935 F NFR Date Time Provider Department 01/09/18 2:00 PM LIZZY CANALES ([facility]) [facility] During your visit today, we recorded the following information about you: Temperature Pulse Respiration Blood pressure 98.2 degrees 69/minute 16/minute 120/74 Weight 91.2 kg Lizzy Canales APRN.CNP 01/09/2018 2:53 PM Signed 01/09/2018 Patient presents with: ED Follow-up: bronchitis SUBJECTIVE: This is a 82 year old that is here today for ER follow up. She was seen in [facility] ER 01/04 for cough and chest discomfort. Troponin was negative. CXR negative. EKG unremarkable per ER record. She was encouraged to stay for full cardiac work up with her history, but she felt strongly that she has dealing with a respiratory issue. She was started on doxycycline and continues on it feeling better. She was told to follow up with Dr. Gibson. She states that as of right now she is scheduled with him in Feb. She will call and see if she should be seen sooner. BP was high and she was told to increase lopressor from 12.5 to 25mg. She states that the cough continues, but much better than it was. CP resolved. She has her normal SOC with long walking, but no increase. She is able to do all of her ADLs without concern. PAST MEDICAL HISTORY Diagnosis Date - Acute on chronic combined systolic and diastolic CHF (congestive heart failure) ([facility]) 07/12/2017 - Atrial fibrillation (HCC) 03/02/2016 following CABG and aortic valve replacement - Cervicitis and endocervicitis - Chronic congestive heart failure (HCC) 03/03/2015 - CKD (chronic kidney disease) stage 3, GFR 30-59 ml/min ([facility]) 07/12/2017 - Coronary artery disease - Diverticulosis of colon (without mention of hemorrhage) Diverticulosis - Esophagitis - Heart attack (HCC) - History of aortic valve replacement 03/02/2016 - Hypertension - Hypothyroidism, acquired 07/12/2017 - Osteoarthrosis, unspecified whether generalized or localized, other specified sites - PUD (peptic ulcer disease) 12/18/2009 - S/P CABG x 2 03/02/201601/2016--complicated by atrial fibrillation - Statin intolerance 07/22/2016 - Syncope - Unspecified hemorrhoids without mention of complication Hemorrhoids ALLERGIES Bandaids [Other]; Lipitor [Atorvastatin Calcium]; Lyrica [Pregabalin]; Niacin; Zocor [Simvastatin] MEDICATIONS Current Outpatient Prescriptions: doxycycline monohydrate (MONODOX) 100 mg capsule TWICE A DAY spironolactone (ALDACTONE) 25 mg tablet Take 1 tablet by mouth twice daily. ferrous sulfate 325 mg (65 mg iron) tablet Take 1 tablet by mouth daily with breakfast. metoprolol tartrate, short acting, (LOPRESSOR) 25 mg tablet Take 0.5 tablets by mouth twice daily. levothyroxine (SYNTHROID) 125 mcg tablet Take 1 tablet by mouth once daily. Take on empty stomach. For Thyroid furosemide (LASIX) 20 mg tablet Take 1 tablet by mouth twice daily. mirtazapine (REMERON) 15 mg tablet Take 15 mg by mouth daily at bedtime. docusate sodium (COLACE ORAL) Take 240 mg by mouth twice daily. amiodarone (CORDARONE) 200 mg tablet Take 1 tablet by mouth once daily. omeprazole (PRILOSEC) 20 mg capsule Take 1 capsule by mouth daily before breakfast. 1/2 hr before meal. apixaban (ELIQUIS) 5 mg tab(s) Take 1 tablet by mouth twice daily. clopidogrel (PLAVIX) 75 mg tablet Take 1 tablet by mouth once daily. benzonatate (TESSALON PERLE) 100 mg capsule Take 1 capsule by mouth three times daily as needed. melatonin 10 mg cap Take by mouth. calcium carbonate 600 mg-cholecalciferol 200 units (CALCIUM 600 + D,3,) 600 mg(1,500mg) -200 unit tab Take 1 tablet by mouth once daily. nitroglycerin sublingual (NITROQUICK) 0.4 mg SL tablet Dissolve 1 tablet under the tongue as needed. FOR CHEST PAIN. IF NO RELIEF CALL 911 Magnesium 250 mg tab 2 tablets in the morning and 2 tablet in the evening (Patient taking differently: 250 mg twice daily. 2 tablets in the morning and 2 tablet in the evening) therapeutic multivitamin ORAL tablet Take one(1) tablet daily. fish oil/dha/epa(FISH OIL 1,200 MG-144 MG-216 MG CAP) one capsule every other day No current facility-administered medications for this visit. Medications and allergies reviewed by this provider. SOCIAL HISTORY Social History Marital status: Spouse name: Years of education: Number of children: Social History Main Topics Smoking status: Never Smoker Smokeless tobacco: Never Used Alcohol use: No Drug use: No REVIEW OF SYSTEMS see HPI OBJECTIVE: BP 120/74 Pulse 69 Temp 36.8 ?C (98.2 ?F) Resp 16 Wt 91.2 kg (201 lb) SpO2 94% BMI 39.26 kg/m? . Vital signs reviewed by this provider. PHYSICAL EXAMINATION: General appearance: Well appearing, alert, in no acute distress, well-hydrated, well nourished. Skin: Skin color, texture, turgor normal, no suspicious rashes or lesions Head: Normocephalic, no masses, lesions, tenderness or abnormalities Eyes: Anicteric sclera. Lungs: lungs clear to auscultation. No wheezing, rhonchi, rales Heart: RRR without murmur, gallop, or rubs. No ectopy Extremities: No deformities, edema, skin discoloration, clubbing or cyanosis. Good capillary refill. , Pulses: 2+ ASSESSMENT/PLAN: 1. Follow up - ICD9: V67.9, ICD10: Z09 (primary diagnosis) - improving - continue doxycycline as prescribed - follow up with Dr Gibson - follow up with PCP in 4 months or sooner if needed 2. Bronchitis - ICD9: 490, ICD10: J40 - see above Lizzy Canales APRN.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 Referring Provider: SELF [200] Allergies As of Date: 01/09/2018 Noted Allergy Reaction bandaids [Other] 09/30/2005 LIPITOR (ATORVASTATIN CALCIUM) 07/22/2016 17 - Myalgia LYRICA (PREGABALIN) 11/30/2010 1 - Mental Status Change NIACIN 11/30/2010 14 - Other: See Comments Comments: myalgia ZOCOR (SIMVASTATIN) 08/09/2011 14 - Other: See Comments Comments: myalgia Date Reviewed: 01/09/2018 Reviewed by: Angelica Ivy) ANGELES Winters - Fully Assessed Reason for Visit: ED Follow-up [821] Cmt: bronchitis Primary Visit Diagnosis:Follow up [Z09] Other Visit Diagnosis:Bronchitis [J40] Prescriptions as of 01/09/2018 Sig: DOXYCYCLINE MONOHYDRATE 100 M* TWICE A DAY SPIRONOLACTONE 25 MG TABLET Take 1 tablet by mouth twice * FERROUS SULFATE 325 MG (65 MG* Take 1 tablet by mouth daily * METOPROLOL TARTRATE 25 MG TAB* Take 0.5 tablets by mouth twi* LEVOTHYROXINE 125 MCG TABLET Take 1 tablet by mouth once d* FUROSEMIDE 20 MG TABLET Take 1 tablet by mouth twice * MIRTAZAPINE 15 MG TABLET Take 15 mg by mouth daily at * COLACE ORAL Take 240 mg by mouth twice da* AMIODARONE 200 MG TABLET Take 1 tablet by mouth once d* OMEPRAZOLE 20 MG CAPSULE,MANUEL* Take 1 capsule by mouth daily* APIXABAN 5 MG TABLET Take 1 tablet by mouth twice * CLOPIDOGREL 75 MG TABLET Take 1 tablet by mouth once d* BENZONATATE 100 MG CAPSULE Take 1 capsule by mouth three* MELATONIN 10 MG CAPSULE Take by mouth. CALCIUM CARBONATE 600 MG (1,5* Take 1 tablet by mouth once d* NITROGLYCERIN 0.4 MG SUBLINGU* Dissolve 1 tablet under the t* MAGNESIUM 250 MG TABLET 2 tablets in the morning and * Patient taking differently: 250 mg twice daily. 2 tablets* * THERAPEUTIC MULTIVITAMIN TABL* Take one(1) tablet daily. * FISH OIL 1,200 MG-144 MG-216 * one capsule every other day Problem List As Of Date 01/09/2018 Noted Resolved Essential hypertension, benign [I10] INVALID FOR* More... 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 More... Sciatica [M54.30] INVALID FOR*03/02/2016 PUD (peptic ulcer disease) [K27.9] INVALID FOR* Mild cognitive impairment with memory loss [G31*INVALID FOR*07/26/2017 Class 3 severe obesity due to excess calories w*INVALID FOR* Magnesium deficiency [E61.2] INVALID FOR*03/02/2016 ASHD (arteriosclerotic heart disease) [I25.10] INVALID FOR* Acute myocardial infarction (HCC) [I21.9] INVALID FOR* Moderate aortic stenosis [I35.0] INVALID FOR* Moderate aortic valve insufficiency [I35.1] INVALID FOR* Arthritis of both hands [M19.041, M19.042] INVALID FOR* Chronic congestive heart failure (HCC) [I50.9] INVALID FOR* Impaired fasting glucose [R73.01] INVALID FOR* Screening for colon cancer [Z12.11] INVALID FOR* Gastroesophageal reflux disease with esophagiti*INVALID FOR* History of aortic valve replacement [Z95.2] INVALID FOR* More... S/P CABG x 2 [Z95.1] INVALID FOR* More... Atrial fibrillation (HCC) [I48.91] INVALID FOR* More... 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] INVALID FOR* Acute on chronic combined systolic and diastoli*INVALID FOR* Hypothyroidism, acquired [E03.9] INVALID FOR* CKD (chronic kidney disease) stage 3, GFR 30-59*INVALID FOR* Chronic anxiety [F41.9] INVALID FOR* Encounter Status:Closed by LIZZY CANALES on 01/09/18 EMERGENCY DEPARTMENT Observed: 01/04/2018 Status: F Source: [place] SUMMARY 1:41 PM [facility] Medical Records Department [address] [place] [address] Emergency Department Summary 01/04/18 1331 MR#: [id number] Acct: [id number] Name: GALILEO HUSTON Rep #: [id number] : 1935 82 From: Geoffrey Osei MD PCP: Adair West III, MD Status: REG ER - ER Visit Summary Date of Service: 01/04/18 Chief Complaint: Chest discomfort History of Present Illness: The patient is a 82 F presenting with 2 weeks of cough that is becoming productive. For the past 24 hours she has had chest discomfort. It has been fairly constant but is much worse with coughing. It is somewhat worse not really with exertion but rather with coughing episodes. It is not pleuritic. It does not feel like her previous cardiac pain. She is concerned that she has pneumonia as she gets this every year around this time. No fever, chills, body aches. No confusion. No back pain. No lower extremity pain or swelling. She has a fairly extensive cardiac history but has been compliant with all of her medication and has been doing quite well recently. Physical Examination: Pressure is elevated but other vitals are within normal limits. Pulse ox is 100% on room air. She is not in distress. She is sitting up in bed, quite well appearing. Appears much younger than her stated age. Neck is supple. Heart tones are regular. She has an artificial valve. Lungs are clear bilaterally. Abdomen is soft and nontender. No tenderness along lower extremity venous system, palpable cords, or other evidence of DVT. She has strong pulses in all extremities. Test Results: His are within normal limits except that her creatinine is slightly elevated above baseline. Troponin is negative despite the elevated creatinine. Chest x-ray is negative for infiltrate. EKG unremarkable. She appears quite well and is resting comfortable. She certainly has multiple cardiac risk factors so I did discuss the possibility of admitting her as observation for serial enzymes. She feels strongly about going home and states that she absolutely does not want to stay in hospital because she needs to make things giving dinner for her family and needs to get home so that she can take a pumpkin pie. She assures me that she has had the pain fairly constantly for the past nearly 24 hours and does have a negative troponin which is reassuring. Additionally, she states that this feels more like a respiratory issue due to an infection rather than a cardiac issue. She feels strongly that she has some sort of respiratory infection because her cough has been becoming productive of green sputum. Because of the duration of her symptoms, I do think it is reasonable to treat her with antibiotics. She will be started on doxycycline. I did discuss the case with her professor of criminal justice, Dr. Gibson to arrange close follow-up but at this point, she feels strongly about going home. She assures me that she will return if she has any recurrence of chest discomfort. Additionally, her blood pressure was somewhat elevated on arrival. She states that she recently was switched to 12.5 mg of Lopressor down from 100 mg. She would like to go back up to 25 mg and actually did take 25 mg just prior to arrival. I discussed this with her professor of criminal justice as well and he agrees that she should go back on the 25 mg and follow-up closely. Emergency Department Course and Treatment: Oral doxycycline, increase Lopressor Treatment Plan: Follow-up with Dr. Gibson Disposition: Home stable Impression: Initial encounter acute lower respiratory tract infection This note was generated with TVShow Time dictation software. It may contain incorrect words, spelling, and punctuation that were not noted in review of the chart prior to signing ED Disposition - Plan for ED Patient: Chief Complaint: Chest Pain Instructions: ED Chest Pain Atypical Unkn Cause, Acute Bronchitis Prescriptions: Doxycycline Monohydrate 100 mg PO BID #14 capsule Referrals: Adair West III, MD [Primary Care Provider] - As soon as possible What to do if you have Problems For any increased pain, shortness of breath, bleeding, nausea or vomiting, chest pain, or any unexpected problems, contact your Primary Care Provider. Call [facility] ([phone]) or report to the closest Emergency Room. Call 911 if necessary. 01/04/18 1341 <Electronically signed by Geoffrey Osei MD> Date Geoffrey Osei MD Cosigner Signature (If Indicated): Date CC: Adair West III, MD CHEST PA AND LATERAL Observed: 01/04/2018 Status: F Source: [place] 10:59 AM [facility] [place] [address] Chest PA and Lateral MR#: [id number] Acct: [id number] Name: GALILEO HUSTON Rep #: [id number] : 1935 F 82 From: Manish Zapata MD PCP: Adair West III, MD Status: REG ER Study: Chest PA and Lateral Date of Exam: 01/04/18 Exam# [id number] Ordering Dr: Geoffrey Osei MD STUDY: X-RAY CHEST REASON FOR EXAM: Female, 82 years old. Sternal chest pain. TECHNIQUE: PA and lateral views of the chest. COMPARISON: Comparison is made with prior study dated June 30, 2017. FINDINGS: EKG electrodes are seen. Once again, there is evidence of increased interstitial markings in both lungs worse in the left lower lobe suggestive of interstitial scarring. There is no demonstrated pleural abnormality. Sternal cerclage wires and vascular clips are present from a prior sternotomy and coronary artery bypass graft procedure (CABG). Normal mediastinum and seun. Normal visualized pulmonary arteries. There is atherosclerotic tortuosity of the aortic arch and descending thoracic aorta. There are diffuse degenerative changes of the visualized thoracic spine. There is degenerative osteoarthritis of the bilateral shoulders. Moderate sized hiatal hernia. RAD/Chest PA and Lateral IMPRESSION: Increased interstitial markings in both lungs suggestive of interstitial scarring. There has been essentially no change. Electronically Signed: Manish Zapata MD at 11:30 EST Tel [phone], Service support , CC: Ramon Osei MD; Adair West III, MD Cloud Engagement Partner: Signed PROTHROMBIN TIME W/INR Collected: 01/04/2018 Status: F Source: [place] 9:40 AM [facility] TYPE CODE TESTS RESULT OUT OF RANGE REFERENCE UNITS LAB L300.4150 11.7-14.9 SECONDS High PROTIME 16.4 LAB L300.4200 Normal INR 1.3 Performed By: #### L300.3900 #### [facility] [address] [place], [place], [address] BASIC METABOLIC Collected: 01/04/2018 Status: F Source: [place] PROFILE (BMP) 9:40 AM [facility] TYPE CODE TESTS RESULT OUT OF RANGE REFERENCE UNITS LAB L501.0100 74-106 mg/dL High GLU 126 Result Comment: Fasting Glucose result greater than or equal to 126 mg/dL suggests DIABETES MELLITUS per A.D.A. criteria. Please note revised GLUCOSE reference range effective 2017. LAB L501.1000 7-18 mg/dL High BUN 36 LAB L501.1100 0.55-1.02 mg/dL High CREAT,SERUM 1.77 Result Comment: The validity of the calculated GFR AND GFRAA in patients over 70 years has not been determined. Clinical correlation is essential. LAB L501.1110 >60 mL/min Low EST GFR 29 Result Comment: Non- GFR Calc LAB L501.1115 >60 mL/min Low EST GFR - AA 35 Result Comment: GFR Calc LAB L501.1255 ml/min Normal Estimated CRCL 18.21 LAB L501.1300 10-20 RATIO High BUN/CRE 20.3 LAB L501.2200 8.5-10 mg/dL Normal .1 CA 9.2 LAB L501.5300 136-14 mmol/L Normal 5 NA 142 LAB L501.5600 3.5-5. mmol/L Normal 1 K 3.9 LAB L501.5900 98-107 mmol/L Normal CL 107 LAB L501.6100 21.0-3 mmol/L Normal 2.0 CO2 24.0 LAB L501.6200 5-15 Normal GAP 11 Performed By: #### L500.2500, L501.4010 #### [facility] [address] [place], [place], [address] TROPONIN-I Collected: 01/04/2018 Status: F Source: [place] 9:40 AM [facility] [place] TYPE CODE TESTS RESULT OUT OF RANGE REFERENCE UNITS LAB L501.4010 <0.045 ng/mL Normal 0.037 TROPONIN-I Result Comment: TROPONIN-I EXPECTED VALUES <0.045 Negative 0.045 - 0.590 Consistent with Cardiac Damage > OR = 0.600 Critical Value Not every elevated troponin is indicative of VA. These values should be used with clinical judgement in examining the patient's clinical picture for diagnosis. To establish a diagnosis of VA versus myocardial injury, there must be a demonstrated rise and/or fall in the troponin values, in addition to ischemic symptoms, EKG changes, new regional wall motion abnormality, and/or angiographical evidence. PLEASE NOTE: REFERENCE RANGES EDITED 17 Performed By: #### L500.2500, L501.4010 #### [facility] [address] [place], [address] CBC W/DIFF, AUTOMATED Collected: 01/04/2018 Status: F Source: [place] 9:40 AM [facility] [place] [place] TYPE CODE TESTS RESULT OUT OF RANGE REFERENCE UNITS LAB L100.1000 4.4-11.0 K/mm3 Normal WBC 6.9 LAB L100.1200 4.2-5.4 M/mm3 Low RBC 3.84 LAB L100.1300 12.0-15.0 g/dl Normal HGB 12.5 LAB L100.1400 37-47 % Normal HCT 38.5 LAB L100.1500 81-99 fL High MCV 100.3 LAB L100.1600 27.0-32.0 pg High MCH 32.6 LAB L100.1700 32-36 g/gl Normal MCHC 32.5 LAB L100.1810 11.6-14.6 % Normal RDW CV 12.6 LAB L100.1820 35.1-43.9 fl High RDW SD 45.4 LAB L100.1900 150-450 K/mm3 Normal PLT 200 LAB L100.2000 6.2-12.0 fl Normal MPV 12.0 LAB L100.2100 47-70 % Normal NEUT% 65.0 LAB L100.2200 19-41 % Normal LY% 19.8 LAB L100.2300 0-10 % Normal MONO% 9.4 LAB L100.2400 0-5 % Normal EO% 4.5 LAB L100.2500 0-1 % Normal BASO% 0.7 LAB L100.2550 0.0-0.9 % Normal IM GRAN % 0.600 Result Comment: IG% - Immature Granulocytes (promyelocytes, myelocytes and metamyelocytes) > 1% indicates that a LEFT SHIFT is Present. LAB L100.2620 2.0-7.7 X10 3/uL Normal Absolute Neut 4.5 LAB L100.2720 0.83-4.51 X10 3/ul Normal Absolute Lymph 1.37 Performed By: #### L100.0100 #### [facility] [address] [place], [place], [id number] HEMOGLOBIN A1C Collected: 11/09/2017 Status: F Source: [place] 10:39 AM [facility] REPOSITORY TYPE CODE TESTS RESULT OUT OF REFERENCE UNITS RANGE LAB HGBA1C 4.3-5.6 % High Hemoglobin A1c 5.7 LAB HBA0 mg/dL Est. Average Glucose 117 Result Comment: eAG: (Estimated average glucose) is a calculated value from HgbA1c and is customer support representative of the average blood glucose level in the last 2-3 month period. Performed By: #### HBA1C #### [facility] [employer] [address] [address] TSH Collected: 11/09/2017 Status: F Source: [place] 10:39 AM [facility] REPOSITORY TYPE CODE TESTS RESULT OUT OF RANGE REFERENCE UNITS LAB TSH 0.400-5.500 uU/mL TSH 3.930 Performed By: #### TSH #### [facility] [address] [address] PROGRESS Observed: 11/09/2017 Status: COMPLETED Source: [place] 10:14 AM [facility] REPOSITORY HNO ID: [id number] Author: Rafaela Ma LPN Service: (none) Author Type: (none) Type: Progress Notes Filed: 11/09/2017 1:12 PM Note Text: 82 year old female here for INACTIVATED INFLUENZA VACCINE. 4888-0449 Season Patient is identified by name and date of : Yes [] CONTRAINDICATIONS color enhanced section Age less than 6 months? No Allergy to eggs, chicken, chicken feathers, or chicken dander? No Allergy to thimerosal (a preservative) or formaldehyde, gelatin? No History of severe reaction to any vaccine component or a previous dose of influenza vaccination? No History of Guillain-[place] Syndrome within 6 weeks after a previous influenza vaccine? No Patient is not moderately or severely ill? No Current temperature greater or equal to 100.4F? No History of Bone Marrow Transplant prior 6 months or solid organ transplant in the past 3 months ? No History of fainting after a prior injection or medical procedure? No- ? If patient has fainted in the past, the CDC recommends sitting or lying down for 15 minutes after the vaccination. [] VERIFICATION color enhanced section Was the answer Yes for any of the above contraindications? No contraindications present. Acceptable to proceed with vaccine. Patient/guardian agrees the above answers are true to the best of their knowledge? Yes Flu vaccine information sheet given? Yes See immunization activity in [facility] for details of immunizations adminstered today. Patient age: [age] year old For The 7321-1438 Flu Season 6-35 months old: Fluzone 0.25 ml - IM (Preservative Free) 3 years of age: Fluzone 0.5 ml - IM (Preservative Free) 3 years and older: Fluzone 0.5 ml- IM-(with Preservatives) 65+ years old: 2-49 years old Fluzone High-Dose 0.5 ml - IM (Preservative Free) FLUMIST- intranasal REMEMBER: If patient is less than 9 years of age and this is the first vaccine of Influenza to be received in any flu season, they should receive a second dose in one months time. PROGRESS Observed: 11/09/2017 Status: COMPLETED Source: [place] 9:43 AM [facility] REPOSITORY HNO ID: [id number] Author: Adair West III Service: (none) Author Type: Physician Type: Progress Notes Filed: 11/09/2017 1:11 PM Note Text: SUBJECTIVE: This is a 82 year old female that is here today for 1. recurring pain in back radiating R lat hip after leaning over arm of chair. Less back pain with leaning forward on grocery cart 2. fatigue. Poor sleep, though melatonin allows her to sleep 7 hrs. PAST MEDICAL HISTORY Diagnosis Date - Acute on chronic combined systolic and diastolic CHF (congestive heart failure) ([facility]) 07/12/2017 - Atrial fibrillation ([facility]) 03/02/2016 following CABG and aortic valve replacement - Cervicitis and endocervicitis - Chronic congestive heart failure ([facility]) 03/03/2015 - CKD (chronic kidney disease) stage 3, GFR 30-59 ml/min ([facility]) 07/12/2017 - Coronary artery disease - Diverticulosis of colon (without mention of hemorrhage) Diverticulosis - Esophagitis - Heart attack ([facility]) - History of aortic valve replacement 03/02/2016 - Hypertension - Hypothyroidism, acquired 07/12/2017 - Osteoarthrosis, unspecified whether generalized or localized, other specified sites - PUD (peptic ulcer disease) 12/18/2009 - S/P CABG x 2 03/02/201601/2016--complicated by atrial fibrillation - Statin intolerance 07/22/2016 - Syncope - Unspecified hemorrhoids without mention of complication Hemorrhoids Current Outpatient Prescriptions on File Prior to Visit: levothyroxine (SYNTHROID) 125 mcg tablet Take 1 tablet by mouth once daily. Take on empty stomach. For Thyroid furosemide (LASIX) 20 mg tablet Take 1 tablet by mouth twice daily. mirtazapine (REMERON) 15 mg tablet Take 15 mg by mouth daily at bedtime. docusate sodium (COLACE ORAL) Take 240 mg by mouth twice daily. ferrous sulfate 325 mg (65 mg iron) tablet Take 1 tablet by mouth daily with breakfast. amiodarone (CORDARONE) 200 mg tablet Take 1 tablet by mouth once daily. metoprolol tartrate, short acting, (LOPRESSOR) 50 mg tablet Take 0.5 tablets by mouth once daily. (Patient taking differently: Take 12.5 mg by mouth once daily. ) apixaban (ELIQUIS) 5 mg tab(s) Take 1 tablet by mouth twice daily. clopidogrel (PLAVIX) 75 mg tablet Take 1 tablet by mouth once daily. lisinopril (ZESTRIL, PRINIVIL) 10 mg tablet Take 1 tablet by mouth once daily. benzonatate (TESSALON PERLE) 100 mg capsule Take 1 capsule by mouth three times daily as needed. melatonin 10 mg cap Take by mouth. calcium carbonate 600 mg-cholecalciferol 200 units (CALCIUM 600 + D,3,) 600 mg(1,500mg) -200 unit tab Take 1 tablet by mouth once daily. nitroglycerin sublingual (NITROQUICK) 0.4 mg SL tablet Dissolve 1 tablet under the tongue as needed. FOR CHEST PAIN. IF NO RELIEF CALL 911 Magnesium 250 mg tab 2 tablets in the morning and 2 tablet in the evening (Patient taking differently: 250 mg twice daily. 2 tablets in the morning and 2 tablet in the evening) fish oil/dha/epa(FISH OIL 1,200 MG-144 MG-216 MG CAP) one capsule every other day spironolactone (ALDACTONE) 25 mg tablet Take 1 tablet by mouth twice daily. omeprazole (PRILOSEC) 20 mg capsule Take 1 capsule by mouth daily before breakfast. 1/2 hr before meal. LORazepam (ATIVAN) 0.5 mg tab Take 1 tablet by mouth twice daily as needed (anxiety). therapeutic multivitamin ORAL tablet Take one(1) tablet daily. No current facility-administered medications on file prior to visit. FAMILY HISTORY Problem Relation Age of Onset - Heart Mother - Diabetes Mother - Alcohol/Drug Father - Thyroid Brother Social History Substance Use Topics - Smoking status: Never Smoker - Smokeless tobacco: Never Used - Alcohol use No BP 122/66 (BP Site: Right Arm, BP Position: Sitting, BP Cuff Size: Large Adult) Pulse (!) 56 Temp 36.6 ?C (97.9 ?F) (Left Tympanic) Resp 16 Wt 90.7 kg (200 lb) BMI 39.06 kg/m? . OBJECTIVE: APPEARANCE Well appearing, alert, in no acute distress, well-hydrated, well nourished. NECK Supple, no adenopathy; thyroid symmetric, normal size, BACK: tenderness R paravertebral LS area. Less back pain with hyperextension. No summers with forward flexion below knees ASSESSMENT: lumbar strain hypothyroidism-- atrial fib on eliquis hypertension--at goal fatigue due to poor sleep episodic anxiety PLAN: healthy weight losing diet and regular exercise eat less sugar, bread, potato, pasta, rice, corn, corn syrup, saturated fats same medication TSH follow up with Dr Gibson as appointed use lorazapam sparingly as needed for anxiety flu shot given Adair West III MD PDMP website checked and validated. All prescriptions have been APPROPRIATELY filled. No suspicious activity was identified. 11/09/2017 by KERWIN Lee MD, III MD CNOV Observed: 11/09/2017 Status: COMPLETED Source: [place] 9:20 AM [facility] REPOSITORY [facility] GALILEO HUSTON ([id number]) 1935 F NFR Date Time Provider Department 11/09/17 9:20 AM ADAIR WEST III During your visit today, we recorded the following information about you: Temperature Pulse Respiration Blood pressure 97.9 degrees 56/minute 16/minute 122/66 Weight 90.7 kg Adair West III MD 11/09/2017 1:11 PM Signed SUBJECTIVE: This is a 82 year old female that is here today for 1. recurring pain in back radiating R lat hip after leaning over arm of chair. Less back pain with leaning forward on grocery cart 2. fatigue. Poor sleep, though melatonin allows her to sleep 7 hrs. PAST MEDICAL HISTORY Diagnosis Date - Acute on chronic combined systolic and diastolic CHF (congestive heart failure) ([facility]) 07/12/2017 - Atrial fibrillation ([facility]) 03/02/2016 following CABG and aortic valve replacement - Cervicitis and endocervicitis - Chronic congestive heart failure (HCC) 03/03/2015 - CKD (chronic kidney disease) stage 3, GFR 30-59 ml/min ([facility]) 07/12/2017 - Coronary artery disease - Diverticulosis of colon (without mention of hemorrhage) Diverticulosis - Esophagitis - Heart attack (HCC) - History of aortic valve replacement 03/02/2016 - Hypertension - Hypothyroidism, acquired 07/12/2017 - Osteoarthrosis, unspecified whether generalized or localized, other specified sites - PUD (peptic ulcer disease) 12/18/2009 - S/P CABG x 2 03/02/201601/2016--complicated by atrial fibrillation - Statin intolerance 07/22/2016 - Syncope - Unspecified hemorrhoids without mention of complication Hemorrhoids Current Outpatient Prescriptions on File Prior to Visit: levothyroxine (SYNTHROID) 125 mcg tablet Take 1 tablet by mouth once daily. Take on empty stomach. For Thyroid furosemide (LASIX) 20 mg tablet Take 1 tablet by mouth twice daily. mirtazapine (REMERON) 15 mg tablet Take 15 mg by mouth daily at bedtime. docusate sodium (COLACE ORAL) Take 240 mg by mouth twice daily. ferrous sulfate 325 mg (65 mg iron) tablet Take 1 tablet by mouth daily with breakfast. amiodarone (CORDARONE) 200 mg tablet Take 1 tablet by mouth once daily. metoprolol tartrate, short acting, (LOPRESSOR) 50 mg tablet Take 0.5 tablets by mouth once daily. (Patient taking differently: Take 12.5 mg by mouth once daily. ) apixaban (ELIQUIS) 5 mg tab(s) Take 1 tablet by mouth twice daily. clopidogrel (PLAVIX) 75 mg tablet Take 1 tablet by mouth once daily. lisinopril (ZESTRIL, PRINIVIL) 10 mg tablet Take 1 tablet by mouth once daily. benzonatate (TESSALON PERLE) 100 mg capsule Take 1 capsule by mouth three times daily as needed. melatonin 10 mg cap Take by mouth. calcium carbonate 600 mg-cholecalciferol 200 units (CALCIUM 600 + D,3,) 600 mg(1,500mg) -200 unit tab Take 1 tablet by mouth once daily. nitroglycerin sublingual (NITROQUICK) 0.4 mg SL tablet Dissolve 1 tablet under the tongue as needed. FOR CHEST PAIN. IF NO RELIEF CALL 911 Magnesium 250 mg tab 2 tablets in the morning and 2 tablet in the evening (Patient taking differently: 250 mg twice daily. 2 tablets in the morning and 2 tablet in the evening) fish oil/dha/epa(FISH OIL 1,200 MG-144 MG-216 MG CAP) one capsule every other day spironolactone (ALDACTONE) 25 mg tablet Take 1 tablet by mouth twice daily. omeprazole (PRILOSEC) 20 mg capsule Take 1 capsule by mouth daily before breakfast. 1/2 hr before meal. LORazepam (ATIVAN) 0.5 mg tab Take 1 tablet by mouth twice daily as needed (anxiety). therapeutic multivitamin ORAL tablet Take one(1) tablet daily. No current facility-administered medications on file prior to visit. FAMILY HISTORY Problem Relation Age of Onset - Heart Mother - Diabetes Mother - Alcohol/Drug Father - Thyroid Brother Social History Substance Use Topics - Smoking status: Never Smoker - Smokeless tobacco: Never Used - Alcohol use No BP 122/66 (BP Site: Right Arm, BP Position: Sitting, BP Cuff Size: Large Adult) Pulse (!) 56 Temp 36.6 ?C (97.9 ?F) (Left Tympanic) Resp 16 Wt 90.7 kg (200 lb) BMI 39.06 kg/m? . OBJECTIVE: APPEARANCE Well appearing, alert, in no acute distress, well- hydrated, well nourished. NECK Supple, no adenopathy; thyroid symmetric, normal size, BACK: tenderness R paravertebral LS area. Less back pain with hyperextension. No summers with forward flexion below knees ASSESSMENT: lumbar strain hypothyroidism-- atrial fib on eliquis hypertension--at goal fatigue due to poor sleep episodic anxiety PLAN: healthy weight losing diet and regular exercise eat less sugar, bread, potato, pasta, rice, corn, corn syrup, saturated fats same medication TSH follow up with Dr Gibson as appointed use lorazapam sparingly as needed for anxiety flu shot given Adair West III MD PDMP website checked and validated. All prescriptions have been APPROPRIATELY filled. No suspicious activity was identified. 11/09/2017 by KERWIN Lee MD, III MD Frank A Cebul, III MD 11/09/2017 10:06 AM Signed PLAN: healthy weight losing diet and regular exercise eat less sugar, bread, potato, pasta, rice, corn, corn syrup, saturated fats same medication TSH follow up with Dr Gibson as appointed use lorazapam sparingly as needed for anxiety KERWIN Lee MD, LPN 11/09/2017 1:12 PM Signed 82 year old female here for INACTIVATED INFLUENZA VACCINE. 2153-3658 Season Patient is identified by name and date of : Yes [] CONTRAINDICATIONS color enhanced section Age less than 6 months? No Allergy to eggs, chicken, chicken feathers, or chicken dander? No Allergy to thimerosal (a preservative) or formaldehyde, gelatin? No History of severe reaction to any vaccine component or a previous dose of influenza vaccination? No History of Guillain-[place] Syndrome within 6 weeks after a previous influenza vaccine? No Patient is not moderately or severely ill? No Current temperature greater or equal to 100.4F? No History of Bone Marrow Transplant prior 6 months or solid organ transplant in the past 3 months ? No History of fainting after a prior injection or medical procedure? No- ? If patient has fainted in the past, the CDC recommends sitting or lying down for 15 minutes after the vaccination. [] VERIFICATION color enhanced section Was the answer Yes for any of the above contraindications? No contraindications present. Acceptable to proceed with vaccine. Patient/guardian agrees the above answers are true to the best of their knowledge? Yes Flu vaccine information sheet given? Yes See immunization activity in [facility] for details of immunizations adminstered today. Patient age: [age] year old For The 2451-5444 Flu Season 6-35 months old: Fluzone 0.25 ml - IM (Preservative Free) 3 years of age: Fluzone 0.5 ml - IM (Preservative Free) 3 years and older: Fluzone 0.5 ml- IM-(with Preservatives) 65+ years old: 2-49 years old Fluzone High-Dose 0.5 ml - IM (Preservative Free) FLUMIST- intranasal REMEMBER: If patient is less than 9 years of age and this is the first vaccine of Influenza to be received in any flu season, they should receive a second dose in one months time. Referring Provider: ADAIR WEST III [[id number]] Allergies As of Date: 11/09/2017 Noted Allergy Reaction bandaids [Other] 09/30/2005 LIPITOR (ATORVASTATIN CALCIUM) 07/22/2016 17 - Myalgia LYRICA (PREGABALIN) 11/30/2010 1 - Mental Status Change NIACIN 11/30/2010 14 - Other: See Comments Comments: myalgia ZOCOR (SIMVASTATIN) 08/09/2011 14 - Other: See Comments Comments: myalgia Date Reviewed: 11/09/2017 Reviewed by: Rafaela Ma LPN - Fully Assessed Reason for Visit: Recheck [92] Cmt: 3 month follow up Imm/Inj [58] Cmt: Flu Vaccine Reason For Visit History Recorded Primary Visit Diagnosis:Essential hypertension, benign [I10] Other Visit Diagnoses:Hyperlipidemia LDL goal <100 [E78.5] Atrial fibrillation, unspecified type (HCC) [I48.91] Acute on chronic combined systolic and diastolic CHF (congestive heart failure) (HCC) [I50.43] Hypothyroidism, acquired [E03.9] CKD (chronic kidney disease) stage 3, GFR 30-59 ml/min ([facility]) [N18.3] Chronic anxiety [F41.9] Need for vaccination [Z23] Order(s):LORazepam (ATIVAN) 0.5 mg tabTake 1 tablet by mouth once daily as needed (anxiety) for up to 30 days.Disp: 20 tabletRfl: 0 INFLUENZA SEASONAL HIGH DOSE AGE 65+ [[id number]] Order #: [id number] Prescriptions as of 11/09/2017 Sig: LEVOTHYROXINE 125 MCG TABLET Take 1 tablet by mouth once d* FUROSEMIDE 20 MG TABLET Take 1 tablet by mouth twice * MIRTAZAPINE 15 MG TABLET Take 15 mg by mouth daily at * COLACE ORAL Take 240 mg by mouth twice da* FERROUS SULFATE 325 MG (65 MG* Take 1 tablet by mouth daily * AMIODARONE 200 MG TABLET Take 1 tablet by mouth once d* METOPROLOL TARTRATE 50 MG TAB* Take 0.5 tablets by mouth onc* Patient taking differently: Take 12.5 mg by mouth once da* APIXABAN 5 MG TABLET Take 1 tablet by mouth twice * CLOPIDOGREL 75 MG TABLET Take 1 tablet by mouth once d* BENZONATATE 100 MG CAPSULE Take 1 capsule by mouth three* MELATONIN 10 MG CAPSULE Take by mouth. CALCIUM CARBONATE 600 MG (1,5* Take 1 tablet by mouth once d* NITROGLYCERIN 0.4 MG SUBLINGU* Dissolve 1 tablet under the t* MAGNESIUM 250 MG TABLET 2 tablets in the morning and * Patient taking differently: 250 mg twice daily. 2 tablets* * FISH OIL 1,200 MG-144 MG-216 * one capsule every other day LORAZEPAM 0.5 MG TABLET Take 1 tablet by mouth once d* SPIRONOLACTONE 25 MG TABLET Take 1 tablet by mouth twice * OMEPRAZOLE 20 MG CAPSULE,MANUEL* Take 1 capsule by mouth daily* * THERAPEUTIC MULTIVITAMIN TABL* Take one(1) tablet daily. Problem List As Of Date 11/09/2017 Noted Resolved Essential hypertension, benign [I10] INVALID FOR* More... 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 More... Sciatica [M54.30] INVALID FOR*03/02/2016 PUD (peptic ulcer disease) [K27.9] INVALID FOR* Mild cognitive impairment with memory loss [G31*INVALID FOR*07/26/2017 Class 3 severe obesity due to excess calories w*INVALID FOR* Magnesium deficiency [E61.2] INVALID FOR*03/02/2016 ASHD (arteriosclerotic heart disease) [I25.10] INVALID FOR* Acute myocardial infarction (HCC) [I21.9] INVALID FOR* Moderate aortic stenosis [I35.0] INVALID FOR* Moderate aortic valve insufficiency [I35.1] INVALID FOR* Arthritis of both hands [M19.041, M19.042] INVALID FOR* Chronic congestive heart failure (HCC) [I50.9] INVALID FOR* Impaired fasting glucose [R73.01] INVALID FOR* Screening for colon cancer [Z12.11] INVALID FOR* Gastroesophageal reflux disease with esophagiti*INVALID FOR* History of aortic valve replacement [Z95.2] INVALID FOR* More... S/P CABG x 2 [Z95.1] INVALID FOR* More... Atrial fibrillation (HCC) [I48.91] INVALID FOR* More... 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] INVALID FOR* Acute on chronic combined systolic and diastoli*INVALID FOR* Hypothyroidism, acquired [E03.9] INVALID FOR* CKD (chronic kidney disease) stage 3, GFR 30-59*INVALID FOR* Chronic anxiety [F41.9] INVALID FOR* Other instructions from your clinician: PLAN: healthy weight losing diet and regular exercise eat less sugar, bread, potato, pasta, rice, corn, corn syrup, saturated fats same medication TSH follow up with Dr Gibson as appointed use lorazapam sparingly as needed for anxiety Adair West III MD Prescriptions ordered this encounter Disp Refills Start End LORAZEPAM 0.5 MG TABLET 20 t* 0 11/09/2017 12/09/2017 Class: Print RX Route: ORAL Sig: Take 1 tablet by mouth once daily as needed (anxiety) for up to 30 days. Medications Discontinued During This Encounter lisinopril (ZESTRIL, PRINIVIL) 10 mg* 30 t* 11 01/25/2017 11/09/2017 Route: ORAL Sig: Take 1 tablet by mouth once daily. Disc: Discontinued by another Health Care Provider LORazepam (ATIVAN) 0.5 mg tab 30 t* 0 11/22/2016 11/09/2017 Class: Print RX Route: ORAL Sig: Take 1 tablet by mouth twice daily as needed (anxiety). Disc: Course of therapy completed Encounter Status:Closed by ADAIR WEST III, MD on 11/09/17 CNPTOUTREACH Observed: 10/25/2017 Status: COMPLETED Source: [place] 12:00 AM [facility] REPOSITORY Patient Outreach ([facility]) BETZAIDAGALILEO Aide ([id number]) 1935 F NFR Date Time Provider Department [facility] During your visit today, we recorded the following information about you: Allergies As of Date: 10/25/2017 Noted Allergy Reaction bandaids [Other] 09/30/2005 LIPITOR (ATORVASTATIN CALCIUM) 07/22/2016 17 - Myalgia LYRICA (PREGABALIN) 11/30/2010 1 - Mental Status Change NIACIN 11/30/2010 14 - Other: See Comments Comments: myalgia ZOCOR (SIMVASTATIN) 08/09/2011 14 - Other: See Comments Comments: myalgia Date Reviewed: 08/09/2017 Reviewed by: Maru Carlson (Bev) BEV Diego - Fully Assessed Visit Diagnosis:Medication management [Z79.899] Order(s):HGB A1C [RYFFC7P] Order #: [id number] FUTURE Prescriptions as of 10/25/2017 Sig: LEVOTHYROXINE 125 MCG TABLET Take 1 tablet by mouth once d* FUROSEMIDE 20 MG TABLET Take 1 tablet by mouth twice * SPIRONOLACTONE 25 MG TABLET Take 1 tablet by mouth twice * MIRTAZAPINE 15 MG TABLET Take 15 mg by mouth daily at * COLACE ORAL Take 240 mg by mouth twice da* FERROUS SULFATE 325 MG (65 MG* Take 1 tablet by mouth daily * AMIODARONE 200 MG TABLET Take 1 tablet by mouth once d* X METOPROLOL TARTRATE 50 MG TAB* Take 0.5 tablets by mouth onc* Patient taking differently: Take 12.5 mg by mouth once da* OMEPRAZOLE 20 MG CAPSULE,MANUEL* Take 1 capsule by mouth daily* APIXABAN 5 MG TABLET Take 1 tablet by mouth twice * CLOPIDOGREL 75 MG TABLET Take 1 tablet by mouth once d* X LISINOPRIL 10 MG TABLET Take 1 tablet by mouth once d* X LORAZEPAM 0.5 MG TABLET Take 1 tablet by mouth twice * BENZONATATE 100 MG CAPSULE Take 1 capsule by mouth three* MELATONIN 10 MG CAPSULE Take by mouth. CALCIUM CARBONATE 600 MG (1,5* Take 1 tablet by mouth once d* NITROGLYCERIN 0.4 MG SUBLINGU* Dissolve 1 tablet under the t* MAGNESIUM 250 MG TABLET 2 tablets in the morning and * Patient taking differently: 250 mg twice daily. 2 tablets* * THERAPEUTIC MULTIVITAMIN TABL* Take one(1) tablet daily. * FISH OIL 1,200 MG-144 MG-216 * one capsule every other day Problem List As Of Date 10/25/2017 Noted Resolved Essential hypertension, benign [I10] INVALID FOR* More... 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 More... Sciatica [M54.30] INVALID FOR*03/02/2016 PUD (peptic ulcer disease) [K27.9] INVALID FOR* Mild cognitive impairment with memory loss [G31*INVALID FOR*07/26/2017 Class 3 severe obesity due to excess calories w*INVALID FOR* Magnesium deficiency [E61.2] INVALID FOR*03/02/2016 ASHD (arteriosclerotic heart disease) [I25.10] INVALID FOR* Acute myocardial infarction (HCC) [I21.9] INVALID FOR* Moderate aortic stenosis [I35.0] INVALID FOR* Moderate aortic valve insufficiency [I35.1] INVALID FOR* Arthritis of both hands [M19.041, M19.042] INVALID FOR* Chronic congestive heart failure (HCC) [I50.9] INVALID FOR* Impaired fasting glucose [R73.01] INVALID FOR* Screening for colon cancer [Z12.11] INVALID FOR* Gastroesophageal reflux disease with esophagiti*INVALID FOR* History of aortic valve replacement [Z95.2] INVALID FOR* More... S/P CABG x 2 [Z95.1] INVALID FOR* More... Atrial fibrillation (HCC) [I48.91] INVALID FOR* More... 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 Prescription will be sent to the local pharmacy. Recheck TSH in 6 weeks. Make sure to take the thyroid medication on an empty stomach and do not put anything else in the stomach except water from an hour before to an hour after the thyroid medication. Adair West III, MD, [facility] T[facility] Collected: 10/03/2017 Status: F Source: [place] 10:25 AM [facility] REPOSITORY TYPE CODE TESTS RESULT OUT OF RANGE REFERENCE UNITS LAB TSH 0.400-5.500 uU/mL High TSH 6.200 Performed By: #### TSH #### [facility] [address] [place], [place] [address] CARDIOLOGY VISIT Observed: 08/31/2017 Status: F Source: [place] REPORT 9:29 AM [facility] [place] [facility] [place] [id number] [facility] [place] [address] OFFICE VISIT Date of Service: 08/31/17 MR#: [id number] Acct: [id number] Name: GALILEO HUSTON Rep #: [id number] : 1935 Provider: Jose Gibson MD Age/Sex: 82/F [place] [facility] [place] S[place] [facility] Chief Complaint: Follow up Details: GALILEO HUSTON, is a 82 F who presents to the office today for a posthospitalization visit. She is a lady with a history of coronary artery disease status post two-vessel coronary to bypass graft surgery and aortic valve replacement as well as paroxysmal atrial fibrillation. She had been admitted to the hospital in June of this year with elevated blood pressure and a mildly abnormal troponin with no EKG changes. She underwent a cardiac catheterization which demonstrated a patent left internal mammary artery to left anterior descending artery, and a saphenous vein graft to the right coronary artery. The circumflex artery and little traverse left anterior descending artery had mild to moderate luminal irregularities her aortic valve was noted to be stable. Her ejection fraction however demonstrated an estimated EF of 45%. She was treated with medication and subsequently discharged. She apparently has done well since going home, and her amlodipine has been discontinued due to pedal edema. She denies any neck arm or jaw discomfort suggest angina no dizziness or diaphoresis no near syncope or syncope. She is complaining of some memory problems and is not sure whether this is secondary to her spironolactone. Her physical exam here today demonstrates normal blood pressure clear lung mobley a soft 1/6 systolic murmur and no pedal edema. Intake Vital Signs08/31/17 Height 5 ft 08/31/17 Weight: 199 lb 08/31/17 Body Mass Index (BMI) 38.8 08/31/17 Blood Pressure 140/60 08/31/17 Respiratory Rate 16 08/31/17 Pulse Rate 52 Intake Visit Reasons: Cath 5-18; also transfer from [place] Allergies atorvastatin [From Lipitor] Adverse Reaction (Verified 08/31/17 08:43) Pain in joints niacin Adverse Reaction (Verified 08/31/17 08:43) Pain in joints pregabalin [From Lyrica] Adverse Reaction (Verified 08/31/17 08:43) Other simvastatin [From Zocor] Adverse Reaction (Verified 08/31/17 08:43) Pain in joints Medications Calcium Carbonate/Vitamin D3 [Calcium 500-Vit D3 600 Tablet] 1 ea PO DAILY 02/24/16 [History Confirmed 08/31/17] Clopidogrel Bisulfate [Plavix] 75 mg PO DINNER 02/24/16 [History Confirmed 08/31/17] Docusate Sodium [Colace] 240 mg PO BID 02/24/16 [History Confirmed 08/31/17] Multivitamin [Multiple Vitamins] 1 ea PO DAILY 02/24/16 [History Confirmed 08/31/17] Nitroglycerin [Nitrostat] 0.4 mg SUBLINGUAL Q5M PRN 02/24/16 [History Confirmed 08/31/17] [place]-3S/Dha/Epa/Fish Oil/D3 [Fish Oil-Vit D3 Softgel] 1 ea PO QODAY 02/24/16 [History Confirmed 08/31/17] Omeprazole 20 mg PO DAILY 01/10/17 [History Confirmed 08/31/17] Apixaban [Eliquis] 5 mg PO BID #60 tab 11/16/16 [Rx Confirmed 08/31/17] Amiodarone HCl [Cordarone] 200 mg PO DAILY 06/30/17 [History Confirmed 08/31/17] Benzonatate [Tessalon Perle] 100 mg PO TID PRN 06/30/17 [History Confirmed 08/31/17] Furosemide [Lasix] 20 mg PO BID 06/30/17 [History Confirmed 08/31/17] Lorazepam [Ativan] 0.5 mg PO BID PRN PRN 06/30/17 [History Confirmed 08/31/17] levothyroxine 75 mcg capsule 100 mcg PO QDAY cap 08/31/17 [History Confirmed 08/31/17] magnesium oxide 250 mg tablet 500 mg PO QDAY tab 08/31/17 [History Confirmed 08/31/17] metoprolol tartrate 25 mg tablet 12.5 mg PO BID tab 08/31/17 [History Confirmed 08/31/17] spironolactone 25 mg tablet 25 mg PO QDAY 08/31/17 [History Confirmed 08/31/17] [facility] Medical History 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) Nonrheumatic aortic valve insufficiency (Chronic) Nonrheumatic mitral (valve) insufficiency (Chronic) Secondary pulmonary arterial hypertension (Chronic) Paroxysmal atrial fibrillation (Chronic) Obesity (BMI 30-39.9) (Chronic) Takotsubo cardiomyopathy (Acute) Atherosclerosis of coronary artery of little traverse heart without angina pectoris (Chronic) HTN (hypertension) (Chronic) Acquired hypothyroidism (Chronic) Anemia (Chronic) Anxiety and depression (Chronic) Chronic kidney disease, stage 3 (Chronic) Esophagitis (Chronic) Insomnia (Chronic) PUD (peptic ulcer disease) (Chronic) Acute kidney injury (Inactive) Surgical History H/O coronary artery bypass surgery (Chronic 01/2016) History of aortic valve replacement with bioprosthetic valve (Chronic 01/2016) History of coronary artery stent placement (Chronic 2014) Family History Mother Diabetes Heart disease Other CAD (coronary artery disease) Social History Smoking Status: Never smoker ROS Const Const: Negative for fatigue, weakness, difficulty sleeping, frequent falls, headache(s) or excessive sweating Eyes Eyes: Negative for loss of peripheral vision, transient loss of vision, blurry vision or double vision ENT ENT: Negative for headache(s), dizziness, Nosebleed/epistaxis or balance problems Cardio Chest Pain: No Edema: None Muscle aches with walking: None Resp Respiratory: Positive for SOB with activity (SOB if walking long distance); negative for SOB at rest, SOB orthopnea\SOB lying down or paroxysmal nocturnal dyspnea GI GI: Negative nausea or heartburn : Negative for hematuria Musc Musc: Negative for muscle aches/ myalgia, muscle weakness, joint pain or balance problems Skin Skin: Negative non-healing lesions, unusual bruising or rash Neuro Neuro: Positive for lack of coordination and memory loss (states she has some memory loss sice starting aldactone); negative for weakness, frequent falls, blurry vision, headache(s), dizziness, lightheadedness, orthostatic symptoms or double vision [place] Hematologic/Lymphatic: Negative for easy bruising Endo Endo: Negative for fatigue, excessive sweating or increased thirst/drinking Psych Psych: Negative for anxiety or depression Allergy Allergy/Immunology: Negative for hives, Negative for rash Cardiology Exam Const Appearance: cooperative, healthy appearing, well developed, well groomed and no acute distress Nutritional Appearance: well nourished and average body habitus Orientation: alert, awake and oriented x3 Head Head: normal to inspection, normocephalic and atraumatic Ears: hearing grossly normal bilaterally and external ears normal Nose: external nose normal, nasal mucous membranes and turbinates normal, nares normal, septum normal, no nasal discharge Face and Sinus: face symmetric Mouth: oral mucosae normal, tongue normal, oropharynx normal and moist mucous membranes Teeth and gingiva: dentition normal Throat: posterior oropharynx normal, tonsils normal and uvula midline Eyes General: appearance normal, both eyes and all related structures Eyelids: eyelids normal Conjunctivae: conjunctivae normal Pupils: PERRL, normal by confrontation and accommodation normal EOM: EOM intact bilaterally Neck Neck: normal visual inspection, trachea midline and no JVD JVD: +5 Carotids: normal carotid upstroke and bounding pulses Chest Chest inspection: normal inspection of the chest, symmetric chest movement and normal respiratory effort Auscultation: Bilateral: Clear to Auscultation Cardio Palpation: normal PMI Rate: regular rate Heart sounds: S1 normal and S2 normal Murmur: Grade 1/6, soft and LLSB GI GI: normal to inspection, soft, no hepatosplenomegaly and bowel sounds present Neuro General: alert, awake, oriented x3, no focal sensory deficit, gait normal and moves all extremities Skin Skin: no rashes or lesions noted Extremities Pulses: Normal: Right Femoral Pulse, Left Femoral Pulse, Right Dorsalis Pedis Pulse, Left Dorsalis Pedis Pulse, Right Posterior Tibial Pulse, Left Posterior Tibial Pulse, Right Radial Pulse, Left Radial Pulse Lower Extremity Edema: None: Bilateral Musculoskel Musculoskeletal: No joint tenderness Psych Psychological: normal affect Assessment AND Plan 1. H/O coronary artery bypass surgery Z95.1 CABG x 2 VALERIO-LAD, 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/2015 Plan She does have a history of coronary bypass surgery and as evidenced by her recent cardiac catheterization had bypasses appeared to be patent she appears to be appropriately revascularized and I would not suggest that we make any changes. 2. History of aortic valve replacement with bioprosthetic valve Z95.3 Plan She does have a history of a bioprosthetic aortic valve replacement. Her most recent echocardiogram demonstrated an ejection fraction of 45% with mild to moderate 1-2+ eccentric aortic insufficiency with a stable bioprosthetic valve. No changes will be made with regard to the above as well. 3. Essential hypertension I10 Plan She does have good blood pressure control on her current medical therapy and we will maintain the same. Her Norvasc has been discontinued and she continues to run good blood pressures. 4. Paroxysmal atrial fibrillation I48.0 Plan She does have a history of paroxysmal atrial fibrillation and she is anticoagulated with Eliquis and is on the beta-marivel and will continue on amiodarone 200 mg once a day. 5. Takotsubo cardiomyopathy I51.81 Plan She did appear to have a mild cardiomyopathy with an estimated ejection fraction of 45%. My recommendation at this time will be to continue the current medical therapy with no changes she will continue with risk factor modification. Thank you for allowing me to participate in the care of your patient. Please don't hesitate to call if any issues arise Plan Detail Other Medications Discontinued: Follow Up 6 Months (mmm) Coding Level of Care Code Off vis,est,level 4 Diagnoses H/O coronary artery bypass surgery Z95.1 History of aortic valve replacement with bioprosthetic valve Z95.3 Essential hypertension I10 Hypertension type: essential hypertension Paroxysmal atrial fibrillation I48.0 Takotsubo cardiomyopathy I51.81 Coding Level of Care Code Off vis,est,level 4 Diagnoses H/O coronary artery bypass surgery Z95.1 History of aortic valve replacement with bioprosthetic valve Z95.3 Essential hypertension I10 Hypertension type: essential hypertension Paroxysmal atrial fibrillation I48.0 Takotsubo cardiomyopathy I51.81 08/31/17 0929 <Electronically signed by Jose Gibson MD> Date Jose Gibson MD Cosigner Signature: Date (if applicable) CC: Adair West III, MD PROGRESS Observed: 08/23/2017 Status: COMPLETED Source: [place] 7:08 PM [facility] REPOSITORY HNO ID: [id number] Author: Adair West III Service: (none) Author Type: Physician Type: Progress Notes Filed: 08/23/2017 7:08 PM Note Text: Thyroid lab is improved but still not at goal so I recommend increasing levothyroxine from 75 ?g to 100 ?g daily. Recheck TSH in 6 weeks. Prescription sent to local pharmacy. Adair West III, MD, [facility] CNN[facility]SE Observed: 08/23/2017 Status: COMPLETED Source: [place] 10:15 AM [facility] REPOSITORY [facility] GALILEO [facility]UST[facility] ([id number]) 1935 F NFR Date Time Provider Department 08/23/17 10:15 AM [facility] During your visit today, we recorded the following information about you: Pulse Blood pressure 62/minute 136/64 Oksana Torres LPN 08/23/2017 10:18 AM Signed Manual Readin/64 Pulse: 62 Home Cuff: 135/53 P: 56 Reason for blood pressure check - Last BP elevated Patient is: Taking medication as prescribed Yes Took medication today Yes If no, date medication last taken N/A Experiencing side effects No BP was elevated at last appt 08/09/17. No BP medication changes were made at that time. Taking all medications as prescribed. Denies any chest pain, shortness of breath, dizziness, or headaches. Drinks decaf. No personal history of tobacco use; no current exposure. Alert and oriented. Pt has been identified by name and birthdate: Yes Allergies reviewed: Yes Latex allergy: no. Medication - prescribed and OTC reviewed and updated: Yes Do you need any prescription refills prior to your next visit: No Health Maintenance: Reviewed and not up to date and provider notified Patient advised to continue with current medications and would be contacted with any further instructions after review by PCP. Oksana Torres LPN Referring Provider: ADAIR WEST III [[id number]] Allergies As of Date: 08/23/2017 Noted Allergy Reaction bandaids [Other] 09/30/2005 LIPITOR (ATORVASTATIN CALCIUM) 07/22/2016 17 - Myalgia LYRICA (PREGABALIN) 11/30/2010 1 - Mental Status Change NIACIN 11/30/2010 14 - Other: See Comments Comments: myalgia ZOCOR (SIMVASTATIN) 08/09/2011 14 - Other: See Comments Comments: myalgia Date Reviewed: 08/09/2017 Reviewed by: Maru Bain LPN - Fully Assessed Reason for Visit: Blood Pressure Check [195] Primary Visit Diagnosis:Essential hypertension, benign [I10] Prescriptions as of 08/23/2017 Sig: FUROSEMIDE 20 MG TABLET Take 1 tablet by mouth twice * LEVOTHYROXINE 75 MCG TABLET Take 1 tablet by mouth once d* SPIRONOLACTONE 25 MG TABLET Take 1 tablet by mouth twice * MIRTAZAPINE 15 MG TABLET Take 15 mg by mouth daily at * COLACE ORAL Take 240 mg by mouth twice da* FERROUS SULFATE 325 MG (65 MG* Take 1 tablet by mouth daily * AMIODARONE 200 MG TABLET Take 1 tablet by mouth once d* METOPROLOL TARTRATE 50 MG TAB* Take 0.5 tablets by mouth onc* OMEPRAZOLE 20 MG CAPSULE,MANUEL* Take 1 capsule by mouth daily* APIXABAN 5 MG TABLET Take 1 tablet by mouth twice * CLOPIDOGREL 75 MG TABLET Take 1 tablet by mouth once d* LISINOPRIL 10 MG TABLET Take 1 tablet by mouth once d* LORAZEPAM 0.5 MG TABLET Take 1 tablet by mouth twice * BENZONATATE 100 MG CAPSULE Take 1 capsule by mouth three* MELATONIN 10 MG CAPSULE Take by mouth. CALCIUM CARBONATE 600 MG (1,5* Take 1 tablet by mouth once d* NITROGLYCERIN 0.4 MG SUBLINGU* Dissolve 1 tablet under the t* MAGNESIUM 250 MG TABLET 2 tablets in the morning and * Patient taking differently: 250 mg twice daily. 2 tablets* * THERAPEUTIC MULTIVITAMIN TABL* Take one(1) tablet daily. * FISH OIL 1,200 MG-144 MG-216 * one capsule every other day Problem List As Of Date 08/23/2017 Noted Resolved Essential hypertension, benign [I10] INVALID FOR* More... 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 More... Sciatica [M54.30] INVALID FOR*03/02/2016 PUD (peptic ulcer disease) [K27.9] INVALID FOR* Mild cognitive impairment with memory loss [G31*INVALID FOR*07/26/2017 Class 3 severe obesity due to excess calories w*INVALID FOR* Magnesium deficiency [E61.2] INVALID FOR*03/02/2016 ASHD (arteriosclerotic heart disease) [I25.10] INVALID FOR* Acute myocardial infarction (HCC) [I21.9] INVALID FOR* Moderate aortic stenosis [I35.0] INVALID FOR* Moderate aortic valve insufficiency [I35.1] INVALID FOR* Arthritis of both hands [M19.041, M19.042] INVALID FOR* Chronic congestive heart failure (HCC) [I50.9] INVALID FOR* Impaired fasting glucose [R73.01] INVALID FOR* Screening for colon cancer [Z12.11] INVALID FOR* Gastroesophageal reflux disease with esophagiti*INVALID FOR* History of aortic valve replacement [Z95.2] INVALID FOR* More... S/P CABG x 2 [Z95.1] INVALID FOR* More... Atrial fibrillation (HCC) [I48.91] INVALID FOR* More... 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] INVALID FOR* Acute on chronic combined systolic and diastoli*INVALID FOR* Hypothyroidism, acquired [E03.9] INVALID FOR* CKD (chronic kidney disease) stage 3, GFR 30-59*INVALID FOR* Encounter Status:Closed by OKSANA TORRES LPN on 08/23/17 PROGRESS Observed: 08/23/2017 Status: COMPLETED Source: [place] 10:08 AM [facility] REPOSITORY O ID: [id number] Author: Oksana Torres LPN Service: (none) Author Type: (none) Type: Progress Notes Filed: 08/23/2017 10:18 AM Note Text: Manual Readin/64 Pulse: 62 Home Cuff: 135/53 P: 56 Reason for blood pressure check - Last BP elevated Patient is: Taking medication as prescribed Yes Took medication today Yes If no, date medication last taken N/A Experiencing side effects No BP was elevated at last appt 08/09/17. No BP medication changes were made at that time. Taking all medications as prescribed. Denies any chest pain, shortness of breath, dizziness, or headaches. Drinks decaf. No personal history of tobacco use; no current exposure. Alert and oriented. Pt has been identified by name and birthdate: Yes Allergies reviewed: Yes Latex allergy: no. Medication - prescribed and OTC reviewed and updated: Yes Do you need any prescription refills prior to your next visit: No Health Maintenance: Reviewed and not up to date and provider notified Patient advised to continue with current medications and would be contacted with any further instructions after review by PCP. Oksana Torres LPN TSH Collected: 08/23/2017 Status: F Source: [place] 8:37 AM [facility] REPOSITORY TYPE CODE TESTS RESULT OUT OF RANGE REFERENCE UNITS LAB TSH 0.400-5.500 uU/mL High TSH 10.610 Performed By: #### TSH #### [facility] [address] [place], [place] [address] PROGRESS Observed: 08/09/2017 Status: COMPLETED Source: [place] 11:17 AM [facility] REPOSITORY HNO ID: [id number] Author: Adair West III Service: (none) Author Type: Physician Type: Progress Notes Filed: 08/09/2017 1:02 PM Note Text: SUBJECTIVE: This is a 82 year old female that is here today for f/u of CHF. she is feeling much better after starting spironolactone with the Lasix. She has lost the remaining weight that she had gained and now feels like she has E energy to do gardening. She denies dyspnea on exertion and has less swelling and redness in her lower legs. No chest pain or angina. PAST MEDICAL HISTORY Diagnosis Date - Acute on chronic combined systolic and diastolic CHF (congestive heart failure) (HCC) 07/12/2017 - Atrial fibrillation (HCC) 03/02/2016 following CABG and aortic valve replacement - Cervicitis and endocervicitis - Chronic congestive heart failure (HCC) 03/03/2015 - CKD (chronic kidney disease) stage 3, GFR 30-59 ml/min 07/12/2017 - Coronary artery disease - Diverticulosis of colon (without mention of hemorrhage) Diverticulosis - Esophagitis - Heart attack (HCC) - History of aortic valve replacement 03/02/2016 - Hypertension - Hypothyroidism, acquired 07/12/2017 - Osteoarthrosis, unspecified whether generalized or localized, other specified sites - PUD (peptic ulcer disease) 12/18/2009 - 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 Take on empty stomach. For Thyroid spironolactone (ALDACTONE) 25 mg tablet Take 1 tablet by mouth twice daily. furosemide (LASIX) 20 mg tablet Take 2 tablets by mouth twice daily. mirtazapine (REMERON) 15 mg tablet Take 15 mg by mouth daily at bedtime. docusate sodium (COLACE ORAL) Take 240 mg by mouth twice daily. ferrous sulfate 325 mg (65 mg iron) tablet Take 1 tablet by mouth daily with breakfast. amiodarone (CORDARONE) 200 mg tablet Take 1 tablet by mouth once daily. metoprolol tartrate, short acting, (LOPRESSOR) 50 mg tablet Take 0.5 tablets by mouth once daily. omeprazole (PRILOSEC) 20 mg capsule Take 1 capsule by mouth daily before breakfast. 1/2 hr before meal. apixaban (ELIQUIS) 5 mg tab(s) Take 1 tablet by mouth twice daily. clopidogrel (PLAVIX) 75 mg tablet Take 1 tablet by mouth once daily. lisinopril (ZESTRIL, PRINIVIL) 10 mg tablet Take 1 tablet by mouth once daily. LORazepam (ATIVAN) 0.5 mg tab Take 1 tablet by mouth twice daily as needed (anxiety). benzonatate (TESSALON PERLE) 100 mg capsule Take 1 capsule by mouth three times daily as needed. melatonin 10 mg cap Take by mouth. calcium carbonate 600 mg-cholecalciferol 200 units (CALCIUM 600 + D,3,) 600 mg(1,500mg) -200 unit tab Take 1 tablet by mouth once daily. nitroglycerin sublingual (NITROQUICK) 0.4 mg SL tablet Dissolve 1 tablet under the tongue as needed. FOR CHEST PAIN. IF NO RELIEF CALL 911 Magnesium 250 mg tab 2 tablets in the morning and 2 tablet in the evening (Patient taking differently: 250 mg twice daily. 2 tablets in the morning and 2 tablet in the evening) therapeutic multivitamin ORAL tablet Take one(1) tablet daily. fish oil/dha/epa(FISH OIL 1,200 MG-144 MG-216 MG CAP) one capsule every other day No current facility-administered medications on file prior to visit. FAMILY HISTORY Problem Relation Age of Onset - Heart Mother - Diabetes Mother - Alcohol/Drug Father - Thyroid Brother Social History Substance Use Topics - Smoking status: Never Smoker - Smokeless tobacco: Never Used - Alcohol use No BP 160/78 Pulse 60 Resp 18 Wt 90.4 kg (199 lb 6.4 oz) BMI 38.94 kg/m? . OBJECTIVE: APPEARANCE Well appearing, alert, in no acute distress, well-hydrated, well nourished. LUNG clear to auscultation EXTREMITIES grade 2/4 edema of lower legs bilaterally with some erythema of the shins but no pitting edema. Mild tenderness with palpating the lower legs. Lab Results for GALILEO HUSTON ( ) as of 08/09/2017 11:11 Ref. Range 08/02/2017 08:38 Sodium Latest Ref Range: 136 - 144 mmol/L 143 Potassium Latest Ref Range: 3.7 - 5.1 mmol/L 4.6 Chloride Latest Ref Range: 97 - 105 mmol/L 102 CO2 Latest Ref Range: 22 - 30 mmol/L 26 BUN Latest Ref Range: 7 - 21 mg/dL 26 (H) Creatinine Latest Ref Range: 0.58 - 0.96 mg/dL 1.49 (H) Glucose Latest Ref Range: 74 - 99 mg/dL 103 (H) Calcium Latest Ref Range: 8.5 - 10.2 mg/dL 9.7 Anion Gap Latest Ref Range: 9 - 18 mmol/L 15 NT Pro BNP Latest Ref Range: <450 pg/mL 4,097 (H) eGFR- Unknown 41 eGFR-All Other Races Latest Units: . 34 TSH Latest Ref Range: 0.400 - 5.500 uU/mL 16.140 (H) ASSESSMENT: hypothyroidism--poor control--may be the cause of her acute congestive heart failure. Now on synthroid 75 mcg daily ASHD CHF--stable/improved hypertension--not at goal hyperlipidemia with statin intolerance CKD III--stable PLAN: healthy diet and activity as able same medications-- follow bp at nurse check in 2-3 wks--may need to increase lisinopril 20mg daily recheck TSH next month return to office 3 mos and as needed follow up with Dr Gibson as appointed KERWIN Lee MD, III MD CNOV Observed: 08/09/2017 Status: COMPLETED Source: [place] 10:40 AM [facility] REPOS[facility] Office Visit (FAMPWS) BETZAIDAGALILEO ([id number]) 1935 F NFR Date Time Provider Department 08/09/17 10:40 AM ADAIR WEST III During your visit today, we recorded the following information about you: Pulse Respiration Blood pressure Weight 60/minute 18/minute 160/78 90.4 kg Adair West III MD 08/09/2017 1:02 PM Signed SUBJECTIVE: This is a 82 year old female that is here today for f/u of CHF. she is feeling much better after starting spironolactone with the Lasix. She has lost the remaining weight that she had gained and now feels like she has E energy to do gardening. She denies dyspnea on exertion and has less swelling and redness in her lower legs. No chest pain or angina. PAST MEDICAL HISTORY Diagnosis Date - Acute on chronic combined systolic and diastolic CHF (congestive heart failure) (HCC) 07/12/2017 - Atrial fibrillation (HCC) 03/02/2016 following CABG and aortic valve replacement - Cervicitis and endocervicitis - Chronic congestive heart failure (HCC) 03/03/2015 - CKD (chronic kidney disease) stage 3, GFR 30-59 ml/min 07/12/2017 - Coronary artery disease - Diverticulosis of colon (without mention of hemorrhage) Diverticulosis - Esophagitis - Heart attack (HCC) - History of aortic valve replacement 03/02/2016 - Hypertension - Hypothyroidism, acquired 07/12/2017 - Osteoarthrosis, unspecified whether generalized or localized, other specified sites - PUD (peptic ulcer disease) 12/18/2009 - 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 Take on empty stomach. For Thyroid spironolactone (ALDACTONE) 25 mg tablet Take 1 tablet by mouth twice daily. furosemide (LASIX) 20 mg tablet Take 2 tablets by mouth twice daily. mirtazapine (REMERON) 15 mg tablet Take 15 mg by mouth daily at bedtime. docusate sodium (COLACE ORAL) Take 240 mg by mouth twice daily. ferrous sulfate 325 mg (65 mg iron) tablet Take 1 tablet by mouth daily with breakfast. amiodarone (CORDARONE) 200 mg tablet Take 1 tablet by mouth once daily. metoprolol tartrate, short acting, (LOPRESSOR) 50 mg tablet Take 0.5 tablets by mouth once daily. omeprazole (PRILOSEC) 20 mg capsule Take 1 capsule by mouth daily before breakfast. 1/2 hr before meal. apixaban (ELIQUIS) 5 mg tab(s) Take 1 tablet by mouth twice daily. clopidogrel (PLAVIX) 75 mg tablet Take 1 tablet by mouth once daily. lisinopril (ZESTRIL, PRINIVIL) 10 mg tablet Take 1 tablet by mouth once daily. LORazepam (ATIVAN) 0.5 mg tab Take 1 tablet by mouth twice daily as needed (anxiety). benzonatate (TESSALON PERLE) 100 mg capsule Take 1 capsule by mouth three times daily as needed. melatonin 10 mg cap Take by mouth. calcium carbonate 600 mg-cholecalciferol 200 units (CALCIUM 600 + D,3,) 600 mg(1,500mg) -200 unit tab Take 1 tablet by mouth once daily. nitroglycerin sublingual (NITROQUICK) 0.4 mg SL tablet Dissolve 1 tablet under the tongue as needed. FOR CHEST PAIN. IF NO RELIEF CALL 911 Magnesium 250 mg tab 2 tablets in the morning and 2 tablet in the evening (Patient taking differently: 250 mg twice daily. 2 tablets in the morning and 2 tablet in the evening) therapeutic multivitamin ORAL tablet Take one(1) tablet daily. fish oil/dha/epa(FISH OIL 1,200 MG-144 MG-216 MG CAP) one capsule every other day No current facility-administered medications on file prior to visit. FAMILY HISTORY Problem Relation Age of Onset - Heart Mother - Diabetes Mother - Alcohol/Drug Father - Thyroid Brother Social History Substance Use Topics - Smoking status: Never Smoker - Smokeless tobacco: Never Used - Alcohol use No BP 160/78 Pulse 60 Resp 18 Wt 90.4 kg (199 lb 6.4 oz) BMI 38.94 kg/m? . OBJECTIVE: APPEARANCE Well appearing, alert, in no acute distress, well- hydrated, well nourished. LUNG clear to auscultation EXTREMITIES grade 2/4 edema of lower legs bilaterally with some erythema of the shins but no pitting edema. Mild tenderness with palpating the lower legs. Lab Results for GALILEO HUSTON ( ) as of 08/09/2017 11:11 Ref. Range 08/02/2017 08:38 Sodium Latest Ref Range: 136 - 144 mmol/L 143 Potassium Latest Ref Range: 3.7 - 5.1 mmol/L 4.6 Chloride Latest Ref Range: 97 - 105 mmol/L 102 CO2 Latest Ref Range: 22 - 30 mmol/L 26 BUN Latest Ref Range: 7 - 21 mg/dL 26 (H) Creatinine Latest Ref Range: 0.58 - 0.96 mg/dL 1.49 (H) Glucose Latest Ref Range: 74 - 99 mg/dL 103 (H) Calcium Latest Ref Range: 8.5 - 10.2 mg/dL 9.7 Anion Gap Latest Ref Range: 9 - 18 mmol/L 15 NT Pro BNP Latest Ref Range: <450 pg/mL 4,097 (H) eGFR- Unknown 41 eGFR-All Other Races Latest Units: . 34 TSH Latest Ref Range: 0.400 - 5.500 uU/mL 16.140 (H) ASSESSMENT: hypothyroidism--poor control--may be the cause of her acute congestive heart failure. Now on synthroid 75 mcg daily ASHD CHF--stable/improved hypertension--not at goal hyperlipidemia with statin intolerance CKD III--stable PLAN: healthy diet and activity as able same medications-- follow bp at nurse check in 2-3 wks--may need to increase lisinopril 20mg daily recheck TSH next month return to office 3 mos and as needed follow up with Dr Gibson as appointed KERWIN Lee MD, III MD Frank A Cebul, III MD 08/09/2017 11:24 AM Signed PLAN: healthy diet and activity as able same medications recheck TSH next month return to office 3 mos and as needed follow up with Dr Gibson as appointed Adair West III MD Referring Provider: ADAIR WEST III [[id number]] Allergies As of Date: 08/09/2017 Noted Allergy Reaction bandaids [Other] 09/30/2005 LIPITOR (ATORVASTATIN CALCIUM) 07/22/2016 17 - Myalgia LYRICA (PREGABALIN) 11/30/2010 1 - Mental Status Change NIACIN 11/30/2010 14 - Other: See Comments Comments: myalgia ZOCOR (SIMVASTATIN) 08/09/2011 14 - Other: See Comments Comments: myalgia Date Reviewed: 08/09/2017 Reviewed by: Maru Bain LPN - Fully Assessed Reason for Visit: Recheck [92] Cmt: 2 week Primary Visit Diagnosis:Essential hypertension, benign [I10] Other Visit Diagnoses:Chronic diastolic congestive heart failure (HCC) [I50.32] Statin intolerance [Z78.9] Acute on chronic combined systolic and diastolic CHF (congestive heart failure) (HCC) [I50.43] Hypothyroidism, acquired [E03.9] CKD (chronic kidney disease) stage 3, GFR 30-59 ml/min [N18.3] Prescriptions as of 08/09/2017 Sig: LEVOTHYROXINE 75 MCG TABLET Take 1 tablet by mouth once d* SPIRONOLACTONE 25 MG TABLET Take 1 tablet by mouth twice * FUROSEMIDE 20 MG TABLET Take 2 tablets by mouth twice* MIRTAZAPINE 15 MG TABLET Take 15 mg by mouth daily at * COLACE ORAL Take 240 mg by mouth twice da* FERROUS SULFATE 325 MG (65 MG* Take 1 tablet by mouth daily * AMIODARONE 200 MG TABLET Take 1 tablet by mouth once d* METOPROLOL TARTRATE 50 MG TAB* Take 0.5 tablets by mouth onc* OMEPRAZOLE 20 MG CAPSULE,MANUEL* Take 1 capsule by mouth daily* APIXABAN 5 MG TABLET Take 1 tablet by mouth twice * CLOPIDOGREL 75 MG TABLET Take 1 tablet by mouth once d* LISINOPRIL 10 MG TABLET Take 1 tablet by mouth once d* LORAZEPAM 0.5 MG TABLET Take 1 tablet by mouth twice * BENZONATATE 100 MG CAPSULE Take 1 capsule by mouth three* MELATONIN 10 MG CAPSULE Take by mouth. CALCIUM CARBONATE 600 MG (1,5* Take 1 tablet by mouth once d* NITROGLYCERIN 0.4 MG SUBLINGU* Dissolve 1 tablet under the t* MAGNESIUM 250 MG TABLET 2 tablets in the morning and * Patient taking differently: 250 mg twice daily. 2 tablets* * THERAPEUTIC MULTIVITAMIN TABL* Take one(1) tablet daily. 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 More... Sciatica [M54.30] INVALID FOR*03/02/2016 PUD (peptic ulcer disease) [K27.9] INVALID FOR* Mild cognitive impairment with memory loss [G31*INVALID FOR*07/26/2017 Class 3 severe obesity due to excess calories w*INVALID FOR* Magnesium deficiency [E61.2] INVALID FOR*03/02/2016 ASHD (arteriosclerotic heart disease) [I25.10] INVALID FOR* Acute myocardial infarction (HCC) [I21.9] INVALID FOR* Moderate aortic stenosis [I35.0] INVALID FOR* Moderate aortic valve insufficiency [I35.1] INVALID FOR* Arthritis of both hands [M19.041, M19.042] INVALID FOR* Chronic congestive heart failure (HCC) [I50.9] INVALID FOR* Impaired fasting glucose [R73.01] INVALID FOR* Screening for colon cancer [Z12.11] INVALID FOR* Gastroesophageal reflux disease with esophagiti*INVALID FOR* History of aortic valve replacement [Z95.2] INVALID FOR* More... S/P CABG x 2 [Z95.1] INVALID FOR* More... Atrial fibrillation (HCC) [I48.91] INVALID FOR* More... 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] INVALID FOR* Acute on chronic combined systolic and diastoli*INVALID FOR* Hypothyroidism, acquired [E03.9] INVALID FOR* CKD (chronic kidney disease) stage 3, GFR 30-59*INVALID FOR* Other instructions from your clinician: PLAN: healthy diet and activity as able same medications recheck TSH next month return to office 3 mos and as needed follow up with Dr Gibson as appointed Adair West III MD Encounter Status:Closed by ADAIR WEST III, MD on 08/09/17 PROGRESS Observed: 08/03/2017 Status: COMPLETED Source: [place] 1:38 PM [facility] RE[facility] HNO ID: [id number] Author: Adair West III Service: (none) Author Type: Physician Type: Progress Notes Filed: 08/03/2017 1:38 PM Note Text: Galile[place], The thyroid gland is under functioning which can cause fluid retention and heart failure. Kidney function is low but stable and the electrolytes are normal. Increase levothyroxine from 25 ?g to 75 ?g daily. Prescription will be sent to the local pharmacy. Continue same other medications. Hopefully he will feel better within the next 2 weeks with less fluid retention. Recheck thyroid lab in 1 month. Report any symptoms of rapid heartbeat. Adair West III, MD, FAAFP BASIC METABOLIC PANL Collected: 08/02/2017 Status: F Source: [place] 8:38 AM [facility] RE[facility] TYPE CODE TESTS RESULT OUT OF REFERENCE UNITS RANGE LAB GLU 74-99 mg/dL High Glucose 103 Result Comment: The [place] [employer] (ADA) provides guidance for cutoff values for fasting glucose and random glucose. The ADA defines fasting as no caloric intake for at least 8 hours. Fas ting plasma glucose results between 100 to 125 mg/dL indicate increased risk for diabetes (prediabetes). Fasting plasma glucose results greater than or equal to 126 mg/dL meet the criteria for diagnosis of diabetes. In the absence of unequivocal hyperglycemia, results should be confirmed by repeat testing. In a patient with classic symptoms of hyperglycemia or hyperglycemic crisis, random plasma glucose results greater than or equal to 200 mg/dL meet the criteria for diagnosis of diabetes. Reference: Standards of Medical Care in Diabetes 2016, [place] [employer]. Diabetes Care. 2016.39(Suppl 1). LAB BUN 7-21 mg/dL BUN High 26 LAB CRET 0.58-0.96 mg/dL Creatinine High 1.49 LAB NA 136-144 mmol/L Sodium 143 LAB K 3.7-5.1 mmol/L Potassium 4.6 LAB CL 97-105 mmol/L Chloride 102 LAB CO2 22-30 mmol/L CO2 26 LAB AGAP 9-18 mmol/L Anion Gap 15 LAB CA 8.5-10.2 mg/dL Calcium, Total 9.7 LAB GFRAA eGFR- Amer. 41 LAB GFRNAA . eGFR-All Other Races 34 Result Comment: eGFR (Estimated GFR) Units of measure: mL/min/1.73 meters squared eGFR is derived from the reexpressed MDRD Study equation using the following parameters: serum creatinine, age, gender and race. The creatinine assay has been calibrated to be traceable to IDMS. An eGFR <60 mL/min/1.73m2 for >3 months is consistent with chronic kidney disease. Refer to KDOQI guidelines for clinical interpretation. In patients with unstable renal function, e.g. those with acute kidney injury, the eGFR may not accurately reflect actual GFR. Performed By: #### BMP, NTBNP, TSH #### [facility] [employer] [address] [place], [place] [address] NT PRO BNP Collected: 08/02/2017 Status: F Source: [place] 8:38 AM [facility] RE[facility] TYPE CODE TESTS RESULT OUT OF REFERENCE UNITS RANGE LAB PBNP <450 pg/mL High PRO B Natr 4097 Peptide Performed By: #### BMP, NTBNP, TSH #### [facility] [employer] [address] [place], [place] [address] TSH Collected: 08/02/2017 Status: F Source: [place] 8:38 AM [facility] TYPE CODE TESTS RESULT OUT OF RANGE REFERENCE UNITS LAB TSH 0.400-5.500 uU/mL High TSH 16.140 Performed By: #### BMP, NTBNP, TSH #### [facility] [employer] [address] [place], [place] [address] PROGRESS Observed: 07/26/2017 Status: COMPLETED Source: [place] 4:07 PM [facility] HNO ID: [id number] Author: Adair West III Service: (none) Author Type: Physician Type: Progress Notes Filed: 07/26/2017 6:49 PM Note Text: SUBJECTIVE: This is a 82 year old female that is here today for 1. continues to have weakness, NUÑEZ, and lower leg edema in spite of spironolactone 25 mg BID and lasix 40 mg BID. Home bp reviewed: BP 143/51-175/57. Wt 211 down to 206 since 07/22. Good appetite. No chest pain. But unable to walk to office due to weakness and NUÑEZ. 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 She states that her weakness and dyspnea on exertion seemed to start after her heart shock treatment on 02/08/17 2. dx of mild cognitive impairment with memory loss dx in 2012. She has difficulty remembering names, though she eventually remembers the name after a short time. I do not think that she truly has mild cognitive impairment, but rather benign forgetfulness 4. morbid obesity: stable in spite of less activity PAST MEDICAL HISTORY Diagnosis Date - Acute on chronic combined systolic and diastolic CHF (congestive heart failure) (HCC) 07/12/2017 - Atrial fibrillation (HCC) 03/02/2016 following CABG and aortic valve replacement - Cervicitis and endocervicitis - Chronic congestive heart failure (HCC) 03/03/2015 - CKD (chronic kidney disease) stage 3, GFR 30-59 ml/min 07/12/2017 - Coronary artery disease - Diverticulosis of colon (without mention of hemorrhage) Diverticulosis - Esophagitis - Heart attack (HCC) - History of aortic valve replacement 03/02/2016 - Hypertension - Hypothyroidism, acquired 07/12/2017 - Osteoarthrosis, unspecified whether generalized or localized, other specified sites - PUD (peptic ulcer disease) 12/18/2009 - S/P CABG x 2 03/02/201601/2016--complicated by atrial fibrillation - Statin intolerance 07/22/2016 - Syncope - Unspecified hemorrhoids without mention of complication Hemorrhoids Current Outpatient Prescriptions on File Prior to Visit: spironolactone (ALDACTONE) 25 mg tablet Take 1 tablet by mouth twice daily. furosemide (LASIX) 20 mg tablet Take 2 tablets by mouth twice daily. mirtazapine (REMERON) 15 mg tablet Take 15 mg by mouth daily at bedtime. docusate sodium (COLACE ORAL) Take 240 mg by mouth twice daily. ferrous sulfate 325 mg (65 mg iron) tablet Take 1 tablet by mouth daily with breakfast. levothyroxine (SYNTHROID) 25 mcg tablet Take 1 tablet by mouth once daily. amiodarone (CORDARONE) 200 mg tablet Take 1 tablet by mouth once daily. metoprolol tartrate, short acting, (LOPRESSOR) 50 mg tablet Take 0.5 tablets by mouth once daily. omeprazole (PRILOSEC) 20 mg capsule Take 1 capsule by mouth daily before breakfast. 1/2 hr before meal. apixaban (ELIQUIS) 5 mg tab(s) Take 1 tablet by mouth twice daily. clopidogrel (PLAVIX) 75 mg tablet Take 1 tablet by mouth once daily. lisinopril (ZESTRIL, PRINIVIL) 10 mg tablet Take 1 tablet by mouth once daily. LORazepam (ATIVAN) 0.5 mg tab Take 1 tablet by mouth twice daily as needed (anxiety). benzonatate (TESSALON PERLE) 100 mg capsule Take 1 capsule by mouth three times daily as needed. melatonin 10 mg cap Take by mouth. calcium carbonate 600 mg-cholecalciferol 200 units (CALCIUM 600 + D,3,) 600 mg(1,500mg) -200 unit tab Take 1 tablet by mouth once daily. nitroglycerin sublingual (NITROQUICK) 0.4 mg SL tablet Dissolve 1 tablet under the tongue as needed. FOR CHEST PAIN. IF NO RELIEF CALL 911 Magnesium 250 mg tab 2 tablets in the morning and 2 tablet in the evening (Patient taking differently: 250 mg twice daily. 2 tablets in the morning and 2 tablet in the evening) therapeutic multivitamin ORAL tablet Take one(1) tablet daily. fish oil/dha/epa(FISH OIL 1,200 MG-144 MG-216 MG CAP) one capsule every other day No current facility-administered medications on file prior to visit. FAMILY HISTORY Problem Relation Age of Onset - Heart Mother - Diabetes Mother - Alcohol/Drug Father - Thyroid Brother Social History Substance Use Topics - Smoking status: Never Smoker - Smokeless tobacco: Never Used - Alcohol use No BP 132/70 Pulse (!) 56 Resp 16 Wt 93.9 kg (207 lb) SpO2 96% BMI 40.43 kg/m? . OBJECTIVE: APPEARANCE Well appearing, alert, in no acute distress, well-hydrated, well nourished., Obese NECK Supple, no adenopathy; thyroid symmetric, normal size, no bruits HEART RRR with normal S1 and S2, no murmurs, no gallops, no JVD appreciated LUNG clear to auscultation EXTREMITIES nonpitting edema lower legs bilaterally. No calf tenderness bilaterally ASSESSMENT: Combined systolic and diastolic heart failure?slowly improving with weight loss Hypertension?at goal Sinus bradycardia associated with beta marivel use Doubt the diagnosis of mild cognitive impairment?suspect benign forgetfulness Morbid obesity?not much weight loss PLAN: Healthy weight losing diet. Try to be active as able return to office in 2wks with labs beforehand same medications Will keep appointment to see Dr. Gibson next mo. KERWIN Lee MD, III MD CNOV Observed: 07/26/2017 Status: COMPLETED Source: [place] 3:40 PM [facility] Office Visit (FAMPWS) GALILEO HUSTON ([id number]) 1935 F NFR Date Time Provider Department 07/26/17 3:40 PM ADAIR WEST III During your visit today, we recorded the following information about you: Pulse Respiration Blood pressure Weight 56/minute 16/minute 132/70 93.9 kg Adair West III MD 07/26/2017 6:49 PM Signed SUBJECTIVE: This is a 82 year old female that is here today for 1. continues to have weakness, NUÑEZ, and lower leg edema in spite of spironolactone 25 mg BID and lasix 40 mg BID. Home bp reviewed: BP 143/51-175/57. Wt 211 down to 206 since 07/22. Good appetite. No chest pain. But unable to walk to office due to weakness and NUÑEZ. 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 She states that her weakness and dyspnea on exertion seemed to start after her heart shock treatment on 02/08/17 2. dx of mild cognitive impairment with memory loss dx in 2012. She has difficulty remembering names, though she eventually remembers the name after a short time. I do not think that she truly has mild cognitive impairment, but rather benign forgetfulness 4. morbid obesity: stable in spite of less activity PAST MEDICAL HISTORY Diagnosis Date - Acute on chronic combined systolic and diastolic CHF (congestive heart failure) (HCC) 07/12/2017 - Atrial fibrillation (HCC) 03/02/2016 following CABG and aortic valve replacement - Cervicitis and endocervicitis - Chronic congestive heart failure (HCC) 03/03/2015 - CKD (chronic kidney disease) stage 3, GFR 30-59 ml/min 07/12/2017 - Coronary artery disease - Diverticulosis of colon (without mention of hemorrhage) Diverticulosis - Esophagitis - Heart attack (HCC) - History of aortic valve replacement 03/02/2016 - Hypertension - Hypothyroidism, acquired 07/12/2017 - Osteoarthrosis, unspecified whether generalized or localized, other specified sites - PUD (peptic ulcer disease) 12/18/2009 - S/P CABG x 2 03/02/201601/2016--complicated by atrial fibrillation - Statin intolerance 07/22/2016 - Syncope - Unspecified hemorrhoids without mention of complication Hemorrhoids Current Outpatient Prescriptions on File Prior to Visit: spironolactone (ALDACTONE) 25 mg tablet Take 1 tablet by mouth twice daily. furosemide (LASIX) 20 mg tablet Take 2 tablets by mouth twice daily. mirtazapine (REMERON) 15 mg tablet Take 15 mg by mouth daily at bedtime. docusate sodium (COLACE ORAL) Take 240 mg by mouth twice daily. ferrous sulfate 325 mg (65 mg iron) tablet Take 1 tablet by mouth daily with breakfast. levothyroxine (SYNTHROID) 25 mcg tablet Take 1 tablet by mouth once daily. amiodarone (CORDARONE) 200 mg tablet Take 1 tablet by mouth once daily. metoprolol tartrate, short acting, (LOPRESSOR) 50 mg tablet Take 0.5 tablets by mouth once daily. omeprazole (PRILOSEC) 20 mg capsule Take 1 capsule by mouth daily before breakfast. 1/2 hr before meal. apixaban (ELIQUIS) 5 mg tab(s) Take 1 tablet by mouth twice daily. clopidogrel (PLAVIX) 75 mg tablet Take 1 tablet by mouth once daily. lisinopril (ZESTRIL, PRINIVIL) 10 mg tablet Take 1 tablet by mouth once daily. LORazepam (ATIVAN) 0.5 mg tab Take 1 tablet by mouth twice daily as needed (anxiety). benzonatate (TESSALON PERLE) 100 mg capsule Take 1 capsule by mouth three times daily as needed. melatonin 10 mg cap Take by mouth. calcium carbonate 600 mg-cholecalciferol 200 units (CALCIUM 600 + D,3,) 600 mg(1,500mg) -200 unit tab Take 1 tablet by mouth once daily. nitroglycerin sublingual (NITROQUICK) 0.4 mg SL tablet Dissolve 1 tablet under the tongue as needed. FOR CHEST PAIN. IF NO RELIEF CALL 911 Magnesium 250 mg tab 2 tablets in the morning and 2 tablet in the evening (Patient taking differently: 250 mg twice daily. 2 tablets in the morning and 2 tablet in the evening) therapeutic multivitamin ORAL tablet Take one(1) tablet daily. fish oil/dha/epa(FISH OIL 1,200 MG-144 MG-216 MG CAP) one capsule every other day No current facility-administered medications on file prior to visit. FAMILY HISTORY Problem Relation Age of Onset - Heart Mother - Diabetes Mother - Alcohol/Drug Father - Thyroid Brother Social History Substance Use Topics - Smoking status: Never Smoker - Smokeless tobacco: Never Used - Alcohol use No BP 132/70 Pulse (!) 56 Resp 16 Wt 93.9 kg (207 lb) SpO2 96% BMI 40.43 kg/m? . OBJECTIVE: APPEARANCE Well appearing, alert, in no acute distress, well- hydrated, well nourished., Obese NECK Supple, no adenopathy; thyroid symmetric, normal size, no bruits HEART RRR with normal S1 and S2, no murmurs, no gallops, no JVD appreciated LUNG clear to auscultation EXTREMITIES nonpitting edema lower legs bilaterally. No calf tenderness bilaterally ASSESSMENT: Combined systolic and diastolic heart failure?slowly improving with weight loss Hypertension?at goal Sinus bradycardia associated with beta marivel use Doubt the diagnosis of mild cognitive impairment?suspect benign forgetfulness Morbid obesity?not much weight loss PLAN: Healthy weight losing diet. Try to be active as able return to office in 2wks with labs beforehand same medications Will keep appointment to see Dr. Gibson next mo. KERWIN Lee MD, III MD Frank A Cebul, III MD 07/26/2017 4:27 PM Signed PLAN: return to office in 2wks with labs beforehand same medications Adair West III MD Referring Provider: SELF [[id number]] Allergies As of Date: 07/26/2017 Noted Allergy Reaction bandaids [Other] 09/30/2005 LIPITOR (ATORVASTATIN CALCIUM) 07/22/2016 17 - Myalgia LYRICA (PREGABALIN) 11/30/2010 1 - Mental Status Change NIACIN 11/30/2010 14 - Other: See Comments Comments: myalgia ZOCOR (SIMVASTATIN) 08/09/2011 14 - Other: See Comments Comments: myalgia Date Reviewed: 07/26/2017 Reviewed by: Angelica Ivy) ANGELES Winters - Fully Assessed Reason for Visit: Breathing Problem [17] Cmt: edema ,feet and legs Primary Visit Diagnosis:Hyperlipidemia LDL goal <100 [E78.5] Other Visit Diagnoses:Essential hypertension, benign [I10] ASHD (arteriosclerotic heart disease) [I25.10] 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] Acute on chronic combined systolic and diastolic CHF (congestive heart failure) ([facility]) [I50.43] Class 3 severe obesity due to excess calories with serious comorbidity and body mass index (BMI) of 40.0 to 44.9 in adult ([facility]) [E66.01, Z68.41] Prescriptions as of 07/26/2017 Sig: SPIRONOLACTONE 25 MG TABLET Take 1 tablet by mouth twice * FUROSEMIDE 20 MG TABLET Take 2 tablets by mouth twice* MIRTAZAPINE 15 MG TABLET Take 15 mg by mouth daily at * COLACE ORAL Take 240 mg by mouth twice da* FERROUS SULFATE 325 MG (65 MG* Take 1 tablet by mouth daily * LEVOTHYROXINE 25 MCG TABLET Take 1 tablet by mouth once d* AMIODARONE 200 MG TABLET Take 1 tablet by mouth once d* METOPROLOL TARTRATE 50 MG TAB* Take 0.5 tablets by mouth onc* OMEPRAZOLE 20 MG CAPSULE,MANUEL* Take 1 capsule by mouth daily* APIXABAN 5 MG TABLET Take 1 tablet by mouth twice * CLOPIDOGREL 75 MG TABLET Take 1 tablet by mouth once d* LISINOPRIL 10 MG TABLET Take 1 tablet by mouth once d* LORAZEPAM 0.5 MG TABLET Take 1 tablet by mouth twice * BENZONATATE 100 MG CAPSULE Take 1 capsule by mouth three* MELATONIN 10 MG CAPSULE Take by mouth. CALCIUM CARBONATE 600 MG (1,5* Take 1 tablet by mouth once d* NITROGLYCERIN 0.4 MG SUBLINGU* Dissolve 1 tablet under the t* MAGNESIUM 250 MG TABLET 2 tablets in the morning and * Patient taking differently: 250 mg twice daily. 2 tablets* * THERAPEUTIC MULTIVITAMIN TABL* Take one(1) tablet daily. 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 More... Sciatica [M54.30] INVALID FOR*03/02/2016 PUD (peptic ulcer disease) [K27.9] INVALID FOR* Mild cognitive impairment with memory loss [G31*INVALID FOR*07/26/2017 Class 3 severe obesity due to excess calories w*INVALID FOR* Magnesium deficiency [E61.2] INVALID FOR*03/02/2016 ASHD (arteriosclerotic heart disease) [I25.10] INVALID FOR* Acute myocardial infarction (HCC) [I21.9] INVALID FOR* Moderate aortic stenosis [I35.0] INVALID FOR* Moderate aortic valve insufficiency [I35.1] INVALID FOR* Arthritis of both hands [M19.041, M19.042] INVALID FOR* Chronic congestive heart failure (HCC) [I50.9] INVALID FOR* Impaired fasting glucose [R73.01] INVALID FOR* Screening for colon cancer [Z12.11] INVALID FOR* Gastroesophageal reflux disease with esophagiti*INVALID FOR* History of aortic valve replacement [Z95.2] INVALID FOR* More... S/P CABG x 2 [Z95.1] INVALID FOR* More... Atrial fibrillation (HCC) [I48.91] INVALID FOR* More... 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] INVALID FOR* Acute on chronic combined systolic and diastoli*INVALID FOR* Hypothyroidism, acquired [E03.9] INVALID FOR* CKD (chronic kidney disease) stage 3, GFR 30-59*INVALID FOR* Other instructions from your clinician: PLAN: return to office in 2wks with labs beforehand same medications Adair West III MD Encounter Status:Closed by ADAIR WEST III, MD on 07/26/17 CNPN Observed: 07/13/2017 Status: COMPLETED Source: [place] 12:00 AM [facility] GALILEO HUSTON ([id number]) 1935 F NFR Date Time Provider Department 07/13/17 ADAIR WEST III During your visit today, we recorded the following information about you: Krupa Onealitalia PABLO 07/13/2017 2:52 PM Signed Patient calling office to see if PCP was able to talk to Dr Gibson since she was in office yesterday? Adair West III MD 07/13/2017 6:25 PM Signed I was unable to contact Dr Gibson because he is out of the office until July 19. I recommend continuing present meds and obtain daily weights at home if possible. It may take a few more days to lose the excessive water weight. Progress report 07/18 or earlier as needed KERWIN Lee MD, Ma 07/14/2017 9:05 AM Signed Patient notified of results, verbalizes understanding of instructions. Pricila Stern CMA, MA 07/14/2017 11:57 AM Signed Left detailed message about needing labs in 6 weeks. GILMER Van RN 07/14/2017 2:18 PM Signed Patient notified of provider's instructions. Patient verbalizes understanding. Mira Mckenzie RN Allergies As of Date: 07/13/2017 Noted Allergy Reaction bandaids [Other] 09/30/2005 LIPITOR (ATORVASTATIN CALCIUM) 07/22/2016 17 - Myalgia LYRICA (PREGABALIN) 11/30/2010 1 - Mental Status Change NIACIN 11/30/2010 14 - Other: See Comments Comments: myalgia ZOCOR (SIMVASTATIN) 08/09/2011 14 - Other: See Comments Comments: myalgia Date Reviewed: 07/12/2017 Reviewed by: Pricila Stern MA - Fully Assessed Reason for Visit: what did Dr Gibson say [Other] Prescriptions as of 07/13/2017 Sig: AMLODIPINE 10 MG TABLET Take 10 mg by mouth once johan* MIRTAZAPINE 15 MG TABLET Take 15 mg by mouth daily at * COLACE ORAL Take 240 mg by mouth twice da* FERROUS SULFATE 325 MG (65 MG* Take 1 tablet by mouth daily * FUROSEMIDE 20 MG TABLET Take 1 tablet by mouth once d* Patient taking differently: Take 40 mg by mouth once johan* LEVOTHYROXINE 25 MCG TABLET Take 1 tablet by mouth once d* AMIODARONE 200 MG TABLET Take 1 tablet by mouth once d* METOPROLOL TARTRATE 50 MG TAB* Take 0.5 tablets by mouth onc* OMEPRAZOLE 20 MG CAPSULE,MANUEL* Take 1 capsule by mouth daily* APIXABAN 5 MG TABLET Take 1 tablet by mouth twice * CLOPIDOGREL 75 MG TABLET Take 1 tablet by mouth once d* LISINOPRIL 10 MG TABLET Take 1 tablet by mouth once d* Patient not taking: Reported on 07/12/2017 LORAZEPAM 0.5 MG TABLET Take 1 tablet by mouth twice * BENZONATATE 100 MG CAPSULE Take 1 capsule by mouth three* Patient not taking: Reported on 07/12/2017 MELATONIN 10 MG CAPSULE Take by mouth. CALCIUM CARBONATE 600 MG (1,5* Take 1 tablet by mouth once d* NITROGLYCERIN 0.4 MG SUBLINGU* Dissolve 1 tablet under the t* MAGNESIUM 250 MG TABLET 2 tablets in the morning and * Patient taking differently: 250 mg twice daily. 2 tablets* * THERAPEUTIC MULTIVITAMIN TABL* Take one(1) tablet daily. 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 More... Sciatica [M54.30] INVALID FOR*03/02/2016 PUD (peptic ulcer disease) [K27.9] INVALID FOR* Mild cognitive impairment with memory loss [G31*INVALID FOR* Obesity [E66.9] INVALID FOR* Magnesium deficiency [E61.2] INVALID FOR*03/02/2016 ASHD (arteriosclerotic heart disease) [I25.10] INVALID FOR* Acute myocardial infarction (HCC) [I21.9] INVALID FOR* Moderate aortic stenosis [I35.0] INVALID FOR* Moderate aortic valve insufficiency [I35.1] INVALID FOR* Arthritis of both hands [M19.041, M19.042] INVALID FOR* Chronic congestive heart failure (HCC) [I50.9] INVALID FOR* Impaired fasting glucose [R73.01] INVALID FOR* Screening for colon cancer [Z12.11] INVALID FOR* Gastroesophageal reflux disease with esophagiti*INVALID FOR* History of aortic valve replacement [Z95.2] INVALID FOR* More... S/P CABG x 2 [Z95.1] INVALID FOR* More... Atrial fibrillation (HCC) [I48.91] INVALID FOR* More... 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 Provider Action/FYI: Dr Tea West ? ? Initial contact with patient post discharge, spoke to patient. Patient identified by name and . ? SUMMARY: -Pt discharged from [facility] on 07/04/2017. -Admitted for: shortness of breath ? Do you have a hospital follow up appointment with your PCP? Appointment on 07/12/2017 with PCP . Yes. Remind patient of appointment date, time, and location. If not within 14 calendar days of discharge - please reschedule accordingly. ? MEDICATIONS: Many patients have questions or concerns about their medications once they are home. Were you prescribed any new medications? Yes, changed Metoprolol dose 12.5 mg twice daily, Lasix 20 mg twice daily, Remeron 15 mg at bedtime ? Were you told to hold any medications? Yes, Were any of your medications discontinued? Yes, Lisinopril, Melatonin ? Do you have any questions about getting or taking your medications? No ? Your discharge instructions/After visit Summary (AVS) are important in guiding you through the recovery process. Is there anything I might help you understand? Yes, discharge instructions/AVS are inadequate, not clear to the patient. If further clinical clarification is needed - follow site specific process for handoff to RN/MACHINE VENEER REPAIRER, or LIP. ? Do you have all the necessary equipment and supplies at home? No, follow site specific process to secure durable medical equipment and/or supplies for the patient, handoff to RN/MACHINE VENEER REPAIRER, or LIP ? Medical records from recent hospitalization: [facility] ? Patient got call yesterday from Dr Gibson office her hemoglobin is 10.2 and may need to go on iron if PCP wants her to have it, to help with shortness of breath. Her follow up appt with Dr Gibson is in August ? Patient uses [facility] for pharmacy Adair A KERWIN West MD Visit for Transitional Care Management CC: Galileo is a 82 year old female following 8, days after the Hospital[facility] Discharge HPI: 82 yo woman admitted for eval of chest tightness with dyspnea. She had heart cath(mod luminal abnormalities) and dx NSTEMI, Takotubo cardiomyopathy, EF 45 %, and was d/c on lasix 20mg BID, recently increased to 40mg bid. But she has increase lower leg edema and worsening NUÑEZ. She was unable to walk to office today--needed wheelchair. On metoprolol 12.5mg BID. She gained 20 lbs prior to admission--has lost ~10 lbs since d/c. Notes lower ext edema. TSH 10.5--started on synthroid 25 mcg qday No chest pain, angina. Spo2 in [facility] 97% per patient. [facility] records reviewed. BNP 1850 GFR from 33 to 53 at discharge (creat 1.26) PAST MEDICAL HISTORY: 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 mirtazapine (REMERON) 15 mg tablet Take 15 mg by mouth daily at bedtime. docusate sodium (COLACE ORAL) Take 240 mg by mouth twice daily. ferrous sulfate 325 mg (65 mg iron) tablet Take 1 tablet by mouth daily with breakfast. furosemide (LASIX) 20 mg tablet Take 1 tablet by mouth once daily. (Patient taking differently: Take 40 mg by mouth once daily. ) levothyroxine (SYNTHROID) 25 mcg tablet Take 1 tablet by mouth once daily. amiodarone (CORDARONE) 200 mg tablet Take 1 tablet by mouth once daily. metoprolol tartrate, short acting, (LOPRESSOR) 50 mg tablet Take 0.5 tablets by mouth once daily. omeprazole (PRILOSEC) 20 mg capsule Take 1 capsule by mouth daily before breakfast. 1/2 hr before meal. apixaban (ELIQUIS) 5 mg tab(s) Take 1 tablet by mouth twice daily. clopidogrel (PLAVIX) 75 mg tablet Take 1 tablet by mouth once daily. LORazepam (ATIVAN) 0.5 mg tab Take 1 tablet by mouth twice daily as needed (anxiety). calcium carbonate 600 mg-cholecalciferol 200 units (CALCIUM 600 + D,3,) 600 mg(1,500mg) -200 unit tab Take 1 tablet by mouth once daily. nitroglycerin sublingual (NITROQUICK) 0.4 mg SL tablet Dissolve 1 tablet under the tongue as needed. FOR CHEST PAIN. IF NO RELIEF CALL 911 Magnesium 250 mg tab 2 tablets in the morning and 2 tablet in the evening (Patient taking differently: 250 mg twice daily. 2 tablets in the morning and 2 tablet in the evening) fish oil/dha/epa(FISH OIL 1,200 MG-144 MG-216 MG CAP) one capsule every other day lisinopril (ZESTRIL, PRINIVIL) 10 mg tablet Take 1 tablet by mouth once daily. (Patient not taking: Reported on 07/12/2017 ) benzonatate (TESSALON PERLE) 100 mg capsule Take 1 capsule by mouth three times daily as needed. (Patient not taking: Reported on 07/12/2017 ) melatonin 10 mg cap Take by mouth. therapeutic multivitamin ORAL tablet Take one(1) tablet daily. No current facility-administered medications for this visit. SOCIAL HISTORY: Social History Substance Use Topics - Smoking status: Never Smoker - Smokeless tobacco: Never Used - Alcohol use No FAMILY HISTORY: FAMILY HISTORY Problem Relation Age of Onset - Heart Mother - Diabetes Mother - Alcohol/Drug Father - Thyroid Brother REVIEW OF SYSTEMS: RESPIRATORY: See HPI CARDIOVASCULAR: See HPI GI: No nausea, vomiting, or diarrhea All other reviewed and negative other than HPI. All other systems reviewed and negative, other than HPI. PHYSICAL EXAMINATION BP 149/60 Pulse 51 Resp 18 Spo2 97% General appearance: well appearing, alert, in no acute distress, well-hydrated, well nourished. in wheelchair Skin: Skin color, texture, turgor normal, no suspicious rashes or lesions Head: normal Eyes: Ears: Nose/Sinuses: Oropharynx: Neck: Supple, no adenopathy; thyroid symmetric, normal size, no bruits Back: Lungs: clear to auscultation, no wheezing or rhonchi Heart: RRR without murmur, gallop, or rubs. No ectopy Abdomen: Normal abdominal exam, Abdomen soft, non-tender. Bowel sounds normal. No masses, organomegaly Extremities: 3/4 pitting edema lower legs bilat Musculoskeletal: Peripheral pulses: Neuro: IMP: NSTEMI Takotsubo cardiomyopathy with diastolic HF hypertension--fair control bradycardia hypothyroidism, new dx Plan: same medications for now I will discuss case with DR Gibson--he is out of town until 07/18/17--will continue present treatment and look for continued water weight loss over the next wk. Daily wts and progress report in 1 wk. ?need to add spironolactone for BP? check bmp, bnp,tsh in 6 wks Adair West III MD July 12, 2017 11:32 AM CNOV Observed: 07/12/2017 Status: COMPLETED Source: [place] 10:40 AM [facility] REPOSITORY Office Visit ([facility]) GALILEO HUSTON ([id number]) 1935 F NFR Date Time Provider Department 07/12/17 10:40 AM ADAIR WEST III During your visit today, we recorded the following information about you: Pulse Respiration Blood pressure 51/minute 18/minute 149/60 Adair West III MD 07/12/2017 1:40 PM Signed TRANSITION CARE MANAGEMENT (TCM) INITIAL CONTACT [facility] [employer] [facility] ? Provider Action/FYI: Dr Tea West ? ? Initial contact with patient post discharge, spoke to patient. Patient identified by name and . ? SUMMARY: -Pt discharged from [facility] on 07/04/2017. -Admitted for: shortness of breath ? Do you have a hospital follow up appointment with your PCP? Appointment on 07/12/2017 with PCP . Yes. Remind patient of appointment date, time, and location. If not within 14 calendar days of discharge - please reschedule accordingly. ? MEDICATIONS: Many patients have questions or concerns about their medications once they are home. Were you prescribed any new medications? Yes, changed Metoprolol dose 12.5 mg twice daily, Lasix 20 mg twice daily, Remeron 15 mg at bedtime ? Were you told to hold any medications? Yes, Were any of your medications discontinued? Yes, Lisinopril, Melatonin ? Do you have any questions about getting or taking your medications? No ? Your discharge instructions/After visit Summary (AVS) are important in guiding you through the recovery process. Is there anything I might help you understand? Yes, discharge instructions/AVS are inadequate, not clear to the patient. If further clinical clarification is needed - follow site specific process for handoff to RN/MACHINE VENEER REPAIRER, or LIP. ? Do you have all the necessary equipment and supplies at home? No, follow site specific process to secure durable medical equipment and/or supplies for the patient, handoff to RN/MACHINE VENEER REPAIRER, or LIP ? Medical records from recent hospitalization: [facility] ? Patient got call yesterday from Dr Gibson office her hemoglobin is 10.2 and may need to go on iron if PCP wants her to have it, to help with shortness of breath. Her follow up appt with Dr Gibson is in August ? Patient uses [facility] for pharmacy Adair West III MD Visit for Transitional Care Management CC: Galileo is a 82 year old female following 8, days after the Hospital[facility] Discharge HPI: 82 yo woman admitted for eval of chest tightness with dyspnea. She had heart cath(mod luminal abnormalities) and dx NSTEMI, Takotubo cardiomyopathy, EF 45 %, and was d/c on lasix 20mg BID, recently increased to 40mg bid. But she has increase lower leg edema and worsening NUÑEZ. She was unable to walk to office today--needed wheelchair. On metoprolol 12.5mg BID. She gained 20 lbs prior to admission--has lost ~10 lbs since d/c. Notes lower ext edema. TSH 10.5--started on synthroid 25 mcg qday No chest pain, angina. Spo2 in [facility] 97% per patient. [facility] records reviewed. BNP 1850 GFR from 33 to 53 at discharge (creat 1.26) PAST MEDICAL HISTORY: 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 mirtazapine (REMERON) 15 mg tablet Take 15 mg by mouth daily at bedtime. docusate sodium (COLACE ORAL) Take 240 mg by mouth twice daily. ferrous sulfate 325 mg (65 mg iron) tablet Take 1 tablet by mouth daily with breakfast. furosemide (LASIX) 20 mg tablet Take 1 tablet by mouth once daily. (Patient taking differently: Take 40 mg by mouth once daily. ) levothyroxine (SYNTHROID) 25 mcg tablet Take 1 tablet by mouth once daily. amiodarone (CORDARONE) 200 mg tablet Take 1 tablet by mouth once daily. metoprolol tartrate, short acting, (LOPRESSOR) 50 mg tablet Take 0.5 tablets by mouth once daily. omeprazole (PRILOSEC) 20 mg capsule Take 1 capsule by mouth daily before breakfast. 1/2 hr before meal. apixaban (ELIQUIS) 5 mg tab(s) Take 1 tablet by mouth twice daily. clopidogrel (PLAVIX) 75 mg tablet Take 1 tablet by mouth once daily. LORazepam (ATIVAN) 0.5 mg tab Take 1 tablet by mouth twice daily as needed (anxiety). calcium carbonate 600 mg-cholecalciferol 200 units (CALCIUM 600 + D,3,) 600 mg(1,500mg) -200 unit tab Take 1 tablet by mouth once daily. nitroglycerin sublingual (NITROQUICK) 0.4 mg SL tablet Dissolve 1 tablet under the tongue as needed. FOR CHEST PAIN. IF NO RELIEF CALL 911 Magnesium 250 mg tab 2 tablets in the morning and 2 tablet in the evening (Patient taking differently: 250 mg twice daily. 2 tablets in the morning and 2 tablet in the evening) fish oil/dha/epa(FISH OIL 1,200 MG-144 MG-216 MG CAP) one capsule every other day lisinopril (ZESTRIL, PRINIVIL) 10 mg tablet Take 1 tablet by mouth once daily. (Patient not taking: Reported on 07/12/2017 ) benzonatate (TESSALON PERLE) 100 mg capsule Take 1 capsule by mouth three times daily as needed. (Patient not taking: Reported on 07/12/2017 ) melatonin 10 mg cap Take by mouth. therapeutic multivitamin ORAL tablet Take one(1) tablet daily. No current facility-administered medications for this visit. SOCIAL HISTORY: Social History Substance Use Topics - Smoking status: Never Smoker - Smokeless tobacco: Never Used - Alcohol use No FAMILY HISTORY: FAMILY HISTORY Problem Relation Age of Onset - Heart Mother - Diabetes Mother - Alcohol/Drug Father - Thyroid Brother REVIEW OF SYSTEMS: RESPIRATORY: See HPI CARDIOVASCULAR: See HPI GI: No nausea, vomiting, or diarrhea All other reviewed and negative other than HPI. All other systems reviewed and negative, other than HPI. PHYSICAL EXAMINATION BP 149/60 Pulse 51 Resp 18 Spo2 97% General appearance: well appearing, alert, in no acute distress, well-hydrated, well nourished. in wheelchair Skin: Skin color, texture, turgor normal, no suspicious rashes or lesions Head: normal Eyes: Ears: Nose/Sinuses: Oropharynx: Neck: Supple, no adenopathy; thyroid symmetric, normal size, no bruits Back: Lungs: clear to auscultation, no wheezing or rhonchi Heart: RRR without murmur, gallop, or rubs. No ectopy Abdomen: Normal abdominal exam, Abdomen soft, non-tender. Bowel sounds normal. No masses, organomegaly Extremities: 3/4 pitting edema lower legs bilat Musculoskeletal: Peripheral pulses: Neuro: IMP: NSTEMI Takotsubo cardiomyopathy with diastolic HF hypertension--fair control bradycardia hypothyroidism, new dx Plan: same medications for now I will discuss case with DR Gibson--he is out of town until 07/18/17--will continue present treatment and look for continued water weight loss over the next wk. Daily wts and progress report in 1 wk. ?need to add spironolactone for BP? check bmp, bnp,tsh in 6 wks Adair West III MD July 12, 2017 11:32 AM Adair West III MD 07/12/2017 11:55 AM Signed Plan: same medications for now I will discuss case with DR Isabella West III MD Referring Provider: [facility] [[id number]] Allergies As of Date: 07/12/2017 Noted Allergy Reaction bandaids [Other] 09/30/2005 LIPITOR (ATORVASTATIN CALCIUM) 07/22/2016 17 - Myalgia LYRICA (PREGABALIN) 11/30/2010 1 - Mental Status Change NIACIN 11/30/2010 14 - Other: See Comments Comments: myalgia ZOCOR (SIMVASTATIN) 08/09/2011 14 - Other: See Comments Comments: myalgia Date Reviewed: 07/12/2017 Reviewed by: Pricila ([facility]) ANGELES Stern - Fully Assessed Reason for Visit: [facility] follow up [Other] Primary Visit Diagnosis:Hospital discharge follow-up [Z09] Other Visit Diagnoses: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] Acute on chronic combined systolic and diastolic CHF (congestive heart failure) (HCC) [I50.43] Iron deficiency anemia due to chronic blood loss [D50.0] Atrial fibrillation, unspecified type ([facility]) [I48.91] ASHD (arteriosclerotic heart disease) [I25.10] Essential hypertension, benign [I10] NSTEMI (non-ST elevated myocardial infarction) (HCC) [I21.4] Hypothyroidism, acquired [E03.9] CKD (chronic kidney disease) stage 3, GFR 30-59 ml/min [N18.3] Order(s):TSH BLD [SQTSH] Order #: [id number] FUTURE NT PRO BNP [SQNTBNP] Order #: [id number] FUTURE BASIC METABOLIC PNL [SQBMP] Order #: [id number] FUTURE Prescriptions as of 07/12/2017 Sig: AMLODIPINE 10 MG TABLET Take 10 mg by mouth once johan* MIRTAZAPINE 15 MG TABLET Take 15 mg by mouth daily at * COLACE ORAL Take 240 mg by mouth twice da* FERROUS SULFATE 325 MG (65 MG* Take 1 tablet by mouth daily * FUROSEMIDE 20 MG TABLET Take 1 tablet by mouth once d* Patient taking differently: Take 40 mg by mouth once johan* LEVOTHYROXINE 25 MCG TABLET Take 1 tablet by mouth once d* AMIODARONE 200 MG TABLET Take 1 tablet by mouth once d* METOPROLOL TARTRATE 50 MG TAB* Take 0.5 tablets by mouth onc* OMEPRAZOLE 20 MG CAPSULE,MANUEL* Take 1 capsule by mouth daily* APIXABAN 5 MG TABLET Take 1 tablet by mouth twice * CLOPIDOGREL 75 MG TABLET Take 1 tablet by mouth once d* LORAZEPAM 0.5 MG TABLET Take 1 tablet by mouth twice * CALCIUM CARBONATE 600 MG (1,5* Take 1 tablet by mouth once d* NITROGLYCERIN 0.4 MG SUBLINGU* Dissolve 1 tablet under the t* MAGNESIUM 250 MG TABLET 2 tablets in the morning and * Patient taking differently: 250 mg twice daily. 2 tablets* * FISH OIL 1,200 MG-144 MG-216 * one capsule every other day LISINOPRIL 10 MG TABLET Take 1 tablet by mouth once d* Patient not taking: Reported on 07/12/2017 BENZONATATE 100 MG CAPSULE Take 1 capsule by mouth three* Patient not taking: Reported on 07/12/2017 MELATONIN 10 MG CAPSULE Take by mouth. * THERAPEUTIC MULTIVITAMIN TABL* Take one(1) tablet daily. 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 More... Sciatica [M54.30] INVALID FOR*03/02/2016 PUD (peptic ulcer disease) [K27.9] INVALID FOR* Mild cognitive impairment with memory loss [G31*INVALID FOR* Obesity [E66.9] INVALID FOR* Magnesium deficiency [E61.2] INVALID FOR*03/02/2016 ASHD (arteriosclerotic heart disease) [I25.10] INVALID FOR* Acute myocardial infarction (HCC) [I21.9] INVALID FOR* Moderate aortic stenosis [I35.0] INVALID FOR* Moderate aortic valve insufficiency [I35.1] INVALID FOR* Arthritis of both hands [M19.041, M19.042] INVALID FOR* Chronic congestive heart failure (HCC) [I50.9] INVALID FOR* Impaired fasting glucose [R73.01] INVALID FOR* Screening for colon cancer [Z12.11] INVALID FOR* Gastroesophageal reflux disease with esophagiti*INVALID FOR* History of aortic valve replacement [Z95.2] INVALID FOR* More... S/P CABG x 2 [Z95.1] INVALID FOR* More... Atrial fibrillation (HCC) [I48.91] INVALID FOR* More... 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] INVALID FOR* Acute on chronic combined systolic and diastoli*INVALID FOR* Hypothyroidism, acquired [E03.9] INVALID FOR* CKD (chronic kidney disease) stage 3, GFR 30-59*INVALID FOR* Other instructions from your clinician: Plan: same medications for now I will discuss case with DR Isabella West III MD Encounter Status:Closed by ADAIR WEST III, MD on 07/12/17 DISCHARGE SUMMARY Observed: 07/09/2017 Status: F Source: [place] 7:30 AM [facility] [place] Medical Records Department [address] [place] [address] Discharge Summary 07/04/17 1612 MR#: [id number] Acct: [id number] Name: GALILEO HUSTON Rep #: [id number] : 1935 82 From: Robyn Rivers DO PCP: Adair West III, MD Status: DIS IN Y Location: [place] [address] ADDENDUM by Jessica Rivers on 07/09/17 at 0730 Code Visit CHF was ruled out. She had dehydration at admission with EL and Lasix was held and she was hydrated. 07/09/17 0730 <Electronically signed by Robyn Rivers DO> Date Robyn Rivers DO cc: Jessica Rivers; Adair West III, MD * Signed ADDENDUM by Jessica Rivers on 07/09/17 at 0724 Code Visit The NSTEMI was present at admission. 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 This has improved as compared to prior study. Electronically Signed: Manish Zapata MD at 13:07 EDT Tel [phone], Service support , Dr. Jose Gibson and Dr. Satya [facility] Procedures: 2-D Echocardiogram, Cardiac catheterization Summary of Care Provided: The patient is an 82-year-old female with a past medical history of coronary artery disease, two-vessel CABG, PTCA with stent in 2014 to the LAD, bioprosthetic aortic valve replacement in December 2015, paroxysmal atrial fibrillation, chronic anticoagulation with Eliquis and anxiety who presented to the [facility] emergency department on 06/30/2017 complaining of chest discomfort. EKG in the emergency room showed a first-degree AV block with T-wave inversion in the lateral precordial leads. Chest x-ray showed mild increased interstitial markings suggestive of scarring. CBC showed a mildly decreased hemoglobin at 11 with normochromic normocytic indices and a normal RDW. Platelets and white blood cell count were within normal limits. Calcium was increased at 5.4 and the BUN was 37 with a creatinine of 1.59. Troponin was elevated at 0.219 and a BNP was 1850. She was admitted to a monitored bed on PCU with suspected unstable angina, acute kidney injury and hyperkalemia. Lisinopril was held due to the EL and consult was ordered with Dr. Gibson. Dr. Gibson recommended cardiac catheterization and the patient was agreeable. Eliquis was held in preparation for cardiac catheterization on 07/04/17. Echocardiogram was obtained and showed a ejection fraction of 45% with mild segmental systolic dysfunction. Transmitral diastolic flow velocities suggested severe, stage III, diastolic dysfunction. The left atrium was moderately enlarged and there was mild to moderate TR. A bioprosthetic aortic valve was in position and there was 1-2+ eccentric aortic valve insufficiency. On 07/06 she underwent cardiac catheterization by Dr. Gibson and showed a patent left internal mammary artery to the left anterior descending artery, and saphenous vein graft to the posterior descending artery. [place] vessels did not demonstrate any high-grade stenosis and the bioprosthetic aortic valve was stable with no gradient. He recommended medical therapy and a repeat echocardiogram in 4-6 weeks to assess left ventricular function. The left ventricular ejection fraction on heart cath was 45% and Dr. Gibson felt this was due to Takotsubo's cardiomyopathy. she was discharged home and given RX's for amlodipine 10 mg daily, Remeron 15 mg nightly and metoprolol 12.5 mg twice daily. She will resume clopidogrel 75 mg daily and Eliquis 5 mg p.o. twice daily. She will follow up with Dr. Gibson in the office in 1-2 weeks and with her primary care physician, Dr. Adair West iii, in 2-3 weeks. General: alert, oriented X3, NAD, appropriate with normal affect Neck: supple, trachea midline, carotids have brisk upstroke and mildly decreased pulse volume, no JVD, carotid bruit on the R but, may be due to radiation of the MM Lungs: CTA Heart: Bradycardic rate in the 50's with regular rhythm, normal S1, normal S2, 2/6 systolic murmur at the second ICS, no gallop, no rub, PMI is on the midclavicular line Abdomen: soft, NT, ND, BS's present Extremities: mild pretibial edema. Groin site is dry with no bruising or hematoma This note was generated with [employer] dictation software. It may contain incorrect words, spelling, and punctuation that were not noted in checking the note before signing. Discharge Activity: Return to Normal Activity May shower in (days): 1 Call your doctor if your incision/area has: Continuous Slow Oozing, Sudden Increased Bleeding, Increased Pain/ Swelling, Increased Redness, Foul Smelling Discharge, Swelling at the incision site Call your doctor if you observe: Fever of 101 or Higher, Shortness of breath, Dizziness, Fainting spells, Swelling in the ankles, Chest pain, Increased palpitations (irregular heartbeat) Remove Dressing in (days):: 1 Cleanse incision/area with: Soap AND Water, Keep Dressing Clean AND Dry Home Medications: Medications to take at Discharge Calcium Carbonate/Vitamin D3 [Calcium 500-Vit D3 600 Tablet] 1 each PO DAILY 02/24/16 Clopidogrel Bisulfate [Plavix] 75 mg PO DINNER 02/24/16 Docusate Sodium [Colace] 240 mg PO BID 02/24/16 Magnesium 500 mg PO BID 02/24/16 Multivitamin [Multiple Vitamins] 1 each PO DAILY 02/24/16 Nitroglycerin [Nitrostat] 0.4 mg SUBLINGUAL Q5M PRN 02/24/16 [place]-3S/Dha/Epa/Fish Oil/D3 [Fish Oil-Vit D3 Softgel] 1 each PO QODAY 02/24/16 Omeprazole 20 mg PO DAILY 02/24/16 Apixaban [Eliquis] 5 mg PO BID #60 tablet 11/16/16 Amiodarone HCl [Cordarone] 200 mg PO DAILY 06/30/17 Benzonatate [Tessalon Perle] 100 mg PO TID PRN 06/30/17 Furosemide [Lasix] 20 mg PO BID 06/30/17 Levothyroxine [Synthroid] 25 mcg PO DAILY 06/30/17 Lorazepam [Ativan] 0.5 mg PO BID PRN PRN 06/30/17 Amlodipine [Norvasc] 10 mg PO DAILY #30 tab 07/04/17 Metoprolol Tartrate [Lopressor (beta marivel)] 12.5 mg PO BID #30 tab 07/04/17 Mirtazapine [Remeron] 15 mg PO QHS #30 tab 07/04/17 Following Prescrptions Were Given to Patient: Amlodipine [Norvasc] 10 mg PO DAILY #30 tab Mirtazapine [Remeron] 15 mg PO QHS #30 tab Metoprolol Tartrate [Lopressor (beta marivel)] 12.5 mg PO BID #30 tab Primary Care Physician: Adair West III, MD [Primary Care Provider] - Please follow up with your Primary Care Physician in: 2-3 weeks Please Follow Up With: Jose Gibson MD When: 1-2 weeks Patient Instructions: Your Body's Response to Anxiety, Depression Affects Your Mind and Body, What Can Cause Depression?, Counseling for Depression Disposition: Home Minutes spent on discharge:: 35 Patient Condition:: Good Medical Necessity - Tobacco Use Smoking Status: Never smoker Meaningful Use Info Meaningful Use Diagnoses (Choose all that apply): AMI - AMI Aspirin given w/in 24hrs of arrival?: Yes ASA at discharge?: No Reason ASA not ordered:: Drug Interaction - discharged on Clopidogrel and eliquis Statins at discharge?: No Reason statins not ordered:: Allergy Francisco/ARB at discharge?: No Reason Francisco/ARB not ordered:: Worsening renal dysfunctn Beta Marivel at discharge?: Yes Done w/ Acute VA measure.: Yes Code Visit Inpatient E AND M: 46116 Disch Hosp 07/07/171953 <Electronically signed by Robyn Rivers DO> Date Robyn Rivers DO Cosigner Signature (if applicable): Date CC: Jessica Rivers; Adair West III, MD Signed 12 LEAD ELECTROCARDIOGRAM Observed: 07/05/2017 Status: F Source: [place] 3:21 PM [facility] Cardiovascular Services [address] [place] [address] 12 Lead EKG 07/04/17 0322 MR#: [id number] Acct: [id number] Name: GALILEO HUSTON Rep #: [id number] : 1935 82 From: Jose Gibson MD Attending Dr: Jessica Rivers Status: DIS IN Ordering Dr: Jose Gibson MD Date: 07/04/17 Location: [facility] Sex: F C Admitted: 06/30/17 Test Reason : AM EKG Blood Pressure : / mmHG Vent. Rate : 052 BPM Atrial Rate : 052 BPM P-R Int : 266 ms QRS Dur : 112 ms QT Int : 484 ms P-R-T Axes : 060 -36 042 degrees QTc Int : 450 ms Sinus bradycardia with 1st degree A-V block Left axis deviation Septal infarct , age undetermined Abnormal ECG When compared with ECG of 30-JUN-2017 14:55, MANUAL COMPARISON REQUIRED, DATA IS UNCONFIRMED Confirmed by JOSE GIBSON MD ([id number]), order editor SAMEERA CARNEY ([id number]) on 07/05/2017 3:20:18 PM Referred By: DANNY Confirmed By:JOSE GIBSON MD 07/05/17 1520 Date Jose Gibson MD CC: Jessica Rivers; Jose Gibson MD; Adair West III, MD Signed 12 LEAD ELECTROCARDIOGRAM Observed: 07/05/2017 Status: F Source: [place] 2:07 PM [facility] Cardiovascular Services [address] [place] [address] 12 Lead EKG 06/30/17 1241 MR#: [id number] Acct: [id number] Name: GALILEO HUSTON N Rep #: [id number] : 1935 82 From: Satya Khan MD Attending Dr: Jessica Rivers Status: DIS IN Ordering Dr: Jamshid Chen MD Date: 06/30/17 Location: [facility] Sex: F C Admitted: 06/30/17 Test Reason : CP Blood Pressure : / mmHG Vent. Rate : 058 BPM Atrial Rate : 058 BPM P-R Int : 268 ms QRS Dur : 134 ms QT Int : 488 ms P-R-T Axes : 028 -15 117 degrees QTc Int : 479 ms Sinus bradycardia with 1st degree A-V block Non-specific intra-ventricular conduction block Abnormal ECG Confirmed by SATYA KHAN MD ([id number]), order editor SAMEERA CARNEY ([id number]) on 07/05/2017 2:07:37 PM Referred By: ABI Confirmed By:SATYA KHAN MD 07/05/17 1407 Date Satya Khan MD CC: Jessica Rivers; Adair West III, MD; Jamshid Chen MD Signed DISCHARGE INSTRUCTION Observed: 07/04/2017 Status: F Source: [place] 4:12 PM [facility] Medical Records Department [address] [place] [address] Instructions for Home/Discharge Instructions 07/04/17 1556 MR#: [id number] Acct: [id number] Name: GALILEO HUSTON Rep #: [id number] : 1935 82 From: Robyn Rivers DO PCP: Adair West III, MD Status: ADM IN - Discharge Diagnoses Current Active Problems: Current Active and Chronic Problems Atypical chest pain (Acute) Status post aorto-coronary artery bypass graft (Chronic) Status post bioprosthetic AVR (Chronic) You will use the following diet at home:: Cardiac Your food should be the consistency of: Regular Your liquids should be the consistency of: Regular/Thin Discharge Activity: Return to Normal Activity May shower in (days): 1 Call your doctor if your incision/area has: Continuous Slow Oozing, Sudden Increased Bleeding, Increased Pain/ Swelling, Increased Redness, Foul Smelling Discharge, Swelling at the incision site Call your doctor if you observe: Fever of 101 or Higher, Shortness of breath, Dizziness, Fainting spells, Swelling in the ankles, Chest pain, Increased palpitations (irregular heartbeat) Remove Dressing in (days):: 1 Cleanse incision/area with: Soap AND Water, Keep Dressing Clean AND Dry Instructions: Your Body's Response to Anxiety, What Can Cause Depression?, Depression Affects Your Mind and Body, Counseling for Depression Additional Instructions: I think the insomnia is due to anxiety and depression. I have started you on a medication for this that you will take at bedtime. It will take about 2-3 weeks to get a good effect. You take it at bedtime because it makes you sleepy. My cell # is [phone]....call me to let me know if this helps you. The stress was negative. Your heart rate is better since we have changed the dosing of the Metoprolol. Try and start an exercise program and walk for 5 minutes 2 times a day and gradually increase.......this will improve your exercise tolerance.....cardiac rehab may be a good thing for you.....you may want to ask Dr. Gibson about this Pending Tests on Discharge: none Allergies/Adverse Reactions: Allergies atorvastatin [From Lipitor] Adverse Reaction (Verified 06/30/17 12:41) Pain in joints niacin Adverse Reaction (Verified 06/30/17 12:41) Pain in joints pregabalin [From Lyrica] Adverse Reaction (Verified 06/30/17 12:41) Other simvastatin [From Zocor] Adverse Reaction (Verified 06/30/17 12:41) Pain in joints Medications to take at Discharge Calcium Carbonate/Vitamin D3 [Calcium 500-Vit D3 600 Tablet] 1 each PO DAILY 02/24/16 Clopidogrel Bisulfate [Plavix] 75 mg PO DINNER 02/24/16 Docusate Sodium [Colace] 240 mg PO BID 02/24/16 Magnesium 500 mg PO BID 02/24/16 Multivitamin [Multiple Vitamins] 1 each PO DAILY 02/24/16 Nitroglycerin [Nitrostat] 0.4 mg SUBLINGUAL Q5M PRN 02/24/16 [place]-3S/Dha/Epa/Fish Oil/D3 [Fish Oil-Vit D3 Softgel] 1 each PO QODAY 02/24/16 Omeprazole 20 mg PO DAILY 02/24/16 Apixaban [Eliquis] 5 mg PO BID #60 tablet 11/16/16 Amiodarone HCl [Cordarone] 200 mg PO DAILY 06/30/17 Benzonatate [Tessalon Perle] 100 mg PO TID PRN 06/30/17 Furosemide [Lasix] 20 mg PO BID 06/30/17 Levothyroxine [Synthroid] 25 mcg PO DAILY 06/30/17 Lorazepam [Ativan] 0.5 mg PO BID PRN PRN 06/30/17 Amlodipine [Norvasc] 10 mg PO DAILY #30 tab 07/04/17 Metoprolol Tartrate [Lopressor (beta marivel)] 12.5 mg PO BID #30 tab 07/04/17 Mirtazapine [Remeron] 15 mg PO QHS #30 tab 07/04/17 The following prescriptions were given: Amlodipine [Norvasc] 10 mg PO DAILY #30 tab Mirtazapine [Remeron] 15 mg PO QHS #30 tab Metoprolol Tartrate [Lopressor (beta marivel)] 12.5 mg PO BID #30 tab Primary Care Physician: Adair West III, MD [Primary Care Provider] - Please follow up with your Primary Care Physician in: 2-3 weeks Please Follow Up With: Jose Gibson MD When: 1-2 weeks Proposed Discharge Date: 07/04/17 07/04/17 1612 <Electronically signed by Robyn Rivers DO> Date Robyn Rivers DO CC: Jose Gibson MD; Adair West III, MD 12 LEAD ELECTROCARDIOGRAM Observed: 07/04/2017 Status: F Source: [place] 3:06 PM [facility] Cardiovascular Services [address] [place] [address] 12 Lead EKG 06/30/17 1455 MR#: [id number] Acct: [id number] Name: GALILEO HUSTON Rep #: [id number] : 1935 82 From: Jose Gibson MD Attending Dr: Jessica Rivers Status: ADM IN Ordering Dr: Alexey Carpenter MD Date: 06/30/17 Location: [facility] Sex: F C Admitted: 06/30/17 Test Reason : NEW ADMIT Blood Pressure : / mmHG Vent. Rate : 053 BPM Atrial Rate : 053 BPM P-R Int : 276 ms QRS Dur : 120 ms QT Int : 510 ms P-R-T Axes : 000 203 007 degrees QTc Int : 478 ms Suspect arm lead reversal, interpretation assumes no reversal Sinus bradycardia with 1st degree A-V block Lateral infarct (cited on or before 15-NOV-2016) Inferior infarct , age undetermined Abnormal ECG When compared with ECG of 15-NOV-2016 09:27, Significant changes have occurred Confirmed by JOSE GIBSON MD ([id number]), order editor SAMEERA CARNEY ([id number]) on 07/04/2017 3:06:00 PM Referred By: JAYDEN Confirmed By:JOSE GIBSON MD 07/04/17 1506 Date Jose Gibson MD CC: Jessica Rivers; Adair West III, MD; Alexey Carpenter MD Signed BASIC METABOLIC Collected: 07/04/2017 Status: F Source: [place] PROFILE (BMP) 5:16 AM [facility] TYPE CODE TESTS RESULT OUT OF RANGE REFERENCE UNITS LAB L501.0100 74-106 mg/dL High GLU 120 Result Comment: Fasting Glucose result from 100 to 125 mg/dL suggests IMPAIRED HOMEOSTASIS per A.D.A. criteria. Please note revised GLUCOSE reference range effective 2017. LAB L501.1000 7-18 mg/dL High BUN 33 LAB L501.1100 0.55-1.02 mg/dL High CREAT,SERUM 1.26 Result Comment: The validity of the calculated GFR AND GFRAA in patients over 70 years has not been determined. Clinical correlation is essential. LAB L501.1110 >60 mL/min Low EST GFR 43 Result Comment: Non- GFR Calc LAB L501.1115 >60 mL/min Low EST GFR - AA 53 Result Comment: GFR Calc LAB L501.1255 ml/min Normal Estimated CRCL 25.58 LAB L501.1300 10-20 RATIO High BUN/CRE 26.2 LAB L501.2200 8.5-10 mg/dL Normal .1 CA 8.6 LAB L501.5300 136-14 mmol/L Normal 5 NA 144 LAB L501.5600 3.5-5. mmol/L Normal 1 K 4.4 LAB L501.5900 98-107 mmol/L High CL 110 LAB L501.6100 21.0-3 mmol/L Normal 2.0 CO2 23.0 LAB L501.6200 5-15 Normal GAP 11 Performed By: #### L500.2500 #### [facility] [address] [facility] [place], [address] PROTHROMBIN TIME W/INR Collected: 07/04/2017 Status: F Source: [place] 5:16 AM [facility] TYPE CODE TESTS RESULT OUT OF RANGE REFERENCE UNITS LAB L300.4150 11.7-14.9 SECONDS High PROTIME 16.5 LAB L300.4200 Normal INR 1.3 Performed By: #### L300.3900, L300.4310 #### [facility] [address] [place], [address] PARTIAL THROMBOPLAST Collected: 07/04/2017 Status: F Source: [place] TIME 5:16 AM [facility] TYPE CODE TESTS RESULT OUT OF RANGE REFERENCE UNITS LAB L300.4310 24.1-36.2 Seconds Normal PTT 30.9 Performed By: #### L300.3900, L300.4310 #### [facility] [address] [place], [address] CBC W/DIFF, AUTOMATED Collected: 07/04/2017 Status: F Source: [place] 5:16 AM [facility] TYPE CODE TESTS RESULT OUT OF RANGE REFERENCE UNITS LAB L100.1000 4.4-11.0 K/mm3 Normal WBC 7.3 LAB L100.1200 4.2-5.4 M/mm3 Low RBC 3.34 LAB L100.1300 12.0-15.0 g/dl Low HGB 10.2 LAB L100.1400 37-47 % Low HCT 32.3 LAB L100.1500 81-99 fL Normal MCV 96.7 LAB L100.1600 27.0-32.0 pg Normal MCH 30.5 LAB L100.1700 32-36 g/gl Low MCHC 31.6 LAB L100.1810 11.6-14.6 % Normal RDW CV 13.4 LAB L100.1820 35.1-43.9 fl High RDW SD 47.5 LAB L100.1900 150-450 K/mm3 Normal PLT 212 LAB L100.2000 6.2-12.0 fl Normal MPV 11.6 LAB L100.2100 47-70 % Normal NEUT% 66.4 LAB L100.2200 19-41 % Low LY% 17.2 LAB L100.2300 0-10 % High MONO% 13.4 LAB L100.2400 0-5 % Normal EO% 2.2 LAB L100.2500 0-1 % Normal BASO% 0.7 LAB L100.2550 0.0-0.9 % Normal IM GRAN % 0.100 Result Comment: IG% - Immature Granulocytes (promyelocytes, myelocytes and metamyelocytes) > 1% indicates that a LEFT SHIFT is Present. LAB L100.2620 2.0-7.7 X10 3/uL Normal Absolute Neut 4.8 LAB L100.2720 0.83-4.51 X10 3/ul Normal Absolute Lymph 1.25 Performed By: #### L100.0100 #### [facility] [address] [place], [address] URINALYSIS, ROUTINE Collected: 07/03/2017 Status: F Source: [place] (DIPSTICK) 2:50 PM [facility] Order Comment: Order Date: 07/03/17 How was Urine Obtained? CLEAN CATCH TYPE CODE TESTS RESULT OUT OF RANGE REFERENCE UNITS LAB L400.3000 Yellow COLOR Normal Yellow LAB L400.3050 Clear Normal CLARITY Clear LAB L400.3200 Normal mg/dl Normal GLUCOSE, UR Normal LAB L400.3300 Negative mg/dL Normal BILIRUBIN URINE Negative LAB L400.3400 Negative mg/dl Normal KETONE UR Negative LAB L400.3465 1.002-1.030 Normal SP.GR. DIPSTX 1.010 LAB L400.3550 5.0 - 8.0 pH UR Normal 6.0 LAB L400.3600 Negative mg/dl High PROT 30 DIPSTX LAB L400.3700 Normal mg/dl Normal UROBILI Normal LAB L400.3750 Negative Normal NITRITE UR Negative LAB L400.3780 Negative /ul Normal OCCULT BLOOD-UR Negative LAB L400.3800 Negative /ul High LEUK 25 ESTERASE Performed By: #### L400.2010 #### [facility] [address] [place], [place], [id number] CBC W/DIFF, AUTOMATED Collected: 07/03/2017 Status: F Source: [place] 5:45 AM [facility] TYPE CODE TESTS RESULT OUT OF RANGE REFERENCE UNITS LAB L100.1000 4.4-11.0 K/mm3 Normal WBC 8.4 LAB L100.1200 4.2-5.4 M/mm3 Low RBC 3.46 LAB L100.1300 12.0-15.0 g/dl Low HGB 10.5 LAB L100.1400 37-47 % Low HCT 33.8 LAB L100.1500 81-99 fL Normal MCV 97.7 LAB L100.1600 27.0-32.0 pg Normal MCH 30.3 LAB L100.1700 32-36 g/gl Low MCHC 31.1 LAB L100.1810 11.6-14.6 % Normal RDW CV 13.3 LAB L100.1820 35.1-43.9 fl High RDW SD 47.5 LAB L100.1900 150-450 K/mm3 Normal PLT 218 LAB L100.2000 6.2-12.0 fl Normal MPV 11.6 LAB L100.2100 47-70 % Normal NEUT% 69.9 LAB L100.2200 19-41 % Low LY% 15.7 LAB L100.2300 0-10 % High MONO% 11.7 LAB L100.2400 0-5 % Normal EO% 1.9 LAB L100.2500 0-1 % Normal BASO% 0.6 LAB L100.2550 0.0-0.9 % Normal IM GRAN % 0.200 Result Comment: IG% - Immature Granulocytes (promyelocytes, myelocytes and metamyelocytes) > 1% indicates that a LEFT SHIFT is Present. LAB L100.2620 2.0-7.7 X10 3/uL Normal Absolute Neut 5.8 LAB L100.2720 0.83-4.51 X10 3/ul Normal Absolute Lymph 1.31 Performed By: #### L100.0100 #### [facility] [address] [place], [place], [address] BASIC METABOLIC Collected: 07/03/2017 Status: F Source: [place] PROFILE (BMP) 5:45 AM [facility] TYPE CODE TESTS RESULT OUT OF RANGE REFERENCE UNITS LAB L501.0100 74-106 mg/dL High GLU 113 Result Comment: Fasting Glucose result from 100 to 125 mg/dL suggests IMPAIRED HOMEOSTASIS per A.D.A. criteria. Please note revised GLUCOSE reference range effective 2017. LAB L501.1000 7-18 mg/dL High BUN 36 LAB L501.1100 0.55-1.02 mg/dL High CREAT,SERUM 1.40 Result Comment: The validity of the calculated GFR AND GFRAA in patients over 70 years has not been determined. Clinical correlation is essential. LAB L501.1110 >60 mL/min Low EST GFR 38 Result Comment: Non- GFR Calc LAB L501.1115 >60 mL/min Low EST GFR - AA 47 Result Comment: GFR Calc LAB L501.1255 ml/min Normal Estimated CRCL 23.02 LAB L501.1300 10-20 RATIO High BUN/CRE 25.7 LAB L501.2200 8.5-10 mg/dL Normal .1 CA 8.7 LAB L501.5300 136-14 mmol/L Normal 5 NA 141 LAB L501.5600 3.5-5. mmol/L Normal 1 K 4.5 LAB L501.5900 98-107 mmol/L High CL 109 LAB L501.6100 21.0-3 mmol/L Normal 2.0 CO2 25.0 LAB L501.6200 5-15 Normal GAP 7 Performed By: #### L500.2500 #### [facility] [address] [place], [address] CONSULTATION Observed: 07/01/2017 Status: F Source: [place] 2:14 PM [facility] Medical Records Department [address] [place] [address] Consultation 06/30/17 1548 MR#: [id number] Acct: [id number] Name: GALILEO HUSTON Rep #: [id number] : 1935 82 From: Jose Gibson MD PCP: Adair West III, MD Status: ADM HIRAL Y Location: [place] [id number] Reason for Consult Date of Consultation: 06/30/17 Reason for Consultation: Chest pressure. History of Present Illness: The patient is a 82 year old F with extensive cardiac history including coronary artery disease status post stent in 2014 in the LAD, two-vessel CABG and bioprosthetic AVR in 12/2015, paroxysmal A. fib on [place]it[place] came to ER with chest pressure since Tuesday. The patient apparently got upset due to an event that happened to the and started getting chest discomfort described as a pressure-like sensation radiating to the right side of her neck. She says that she is also been getting short of breath with minimal exertion over the last few days to weeks. She did take a sublingual nitroglycerin pill with some relief. She presented to the emergency room her blood pressure was noted to be somewhat elevated and blood work was done which demonstrated a mildly elevated troponin with no EKG changes. Cardiology was called from the emergency room and a decision was made to admit her. Currently she does not have any chest discomfort. [] Past Medical History Allergies/Adverse Reactions: Allergies atorvastatin [From Lipitor] Adverse Reaction (Verified 06/30/17 12:41) Pain in joints niacin Adverse Reaction (Verified 06/30/17 12:41) Pain in joints pregabalin [From Lyrica] Adverse Reaction (Verified 06/30/17 12:41) Other simvastatin [From Zocor] Adverse Reaction (Verified 06/30/17 12:41) Pain in joints Home Medications: Ambulatory Orders Medication Instructions Recorded Calcium Carbonate/Vitamin D3 1 each PO DAILY 02/24/16 [Calcium 500-Vit D3 600 Tablet] Clopidogrel Bisulfate [Plavix] 75 mg PO DINNER 02/24/16 Past Medical History (Chronic Problems): Chronic Problems Status post aorto-coronary artery bypass graft (Chronic) Status post bioprosthetic AVR (Chronic) CAD (coronary artery disease) (Chronic) CAD (coronary artery disease) (Chronic) Surgical History: coronary bypass surgery Psychiatric History: No pertinent psych hx - *Family History Maternal History Items: Diabetes, Heart Disease Smoking Status: Never smoker Alcohol: None Drugs: None Review of Systems - Review of Systems General: Denies: Fever, Night Sweats, Fatigue Cardiovascular: Reports: Chest Discomfort with Exertion, Shortness of Breath, Shortness of Breath at Rest, Shortness of Breath with Exertion. Denies: Chest Discomfort, Orthopnea, PND, Peripheral Edema, Palpitations, Lightheadedness, Dizziness, Near Syncope, Syncope Respiratory: Denies: Cough, Sputum Production, Hemoptysis Gastrointestinal: Denies: Hematemesis, Hematochezia, Melena Genitourinary: Denies: Dysuria, Hematuria Skin: Denies: Rash Subjectve: Pleasant lady in no apparent distress Objective: Vital Signs Temp Pulse Resp BP Pulse Ox 97.9 F 63 16 148/59 H 97 06/30/17 14:15 06/30/17 14:15 06/30/17 14:15 06/30/17 14:15 06/30/17 14:15 Oxygen Delivery Method Room Air Weight: 203 lb 7.787 oz Body Mass Index (BMI) 39.7 General: Awake, Alert, Oriented x 3 HEENT: PERRL, EOMI, Sclera Non Icteric Neck: Supple, Good ROM, No Lymph Node Enlargement Lungs: Clear to auscultation Cardiovascular: Regular Rhythm, Normal S1, Normal S2, No Rubs, No Gallops Murmur Murmur: Grade 1/6, Early Systolic, LLSB Vascular: No Carotid Bruits, Normal Femoral Pulses, Normal Radial Pulses, Normal Dorsalis Pedal Pulse, Normal Posterior Tibial Pulses Abdomen: Bowel Sounds Present, Soft, Non Tender, No HSM, No Organomegaly Extremities: No Cyanosis, No Clubbing, No edema Neurological: No Focal Motor or Sensory Deficit Rhythm: EKG: Normal sinus rhythm with a rate of 53 bpm and 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 Assessment/Plan 1. Chest pain-new onset angina. * Patient presents with chest discomfort which is concerning for new onset angina. She did have concomitant elevation of her blood pressure but with her abnormal cardiac enzymes my recommendation would be for us to further evaluate the above with a cardiac catheterization. 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 I discussed this with the patient and her and daughter and they understand and I in agreement. I did suggest to them that more than likely this would have to be Tuesday morning. Certainly if she continues to have chest discomfort at rest with EKG changes then we may need to have this performed sooner. 2. Hypertension * Her blood pressure appears to be somewhat elevated. She does have mild renal dysfunction and I recommend holding off on her FRANCISCO inhibitor at this particular time a calcium channel marivel such as amlodipine can be substituted to improve her blood pressure she would also continue on her low dose of the beta-marivel. * 3. Paroxysmal atrial fibrillation * She does have a history of paroxysmal atrial fibrillation. She is maintaining sinus rhythm at this time on the amiodarone as well as the beta-marivel. She is on Eliquis and I would recommend holding off on the Eliquis at this time until her coronary anatomy has been further evaluated. 4. 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 I do not think that this is contributing to her current problems but it may be good idea to obtain an echocardiogram to assess the gradient across the aortic valve. This can be compared to any previous echocardiogram that was performed. Depending on the findings further recommendations will be made. 5. Risk factor modification * With a history of coronary artery disease she needs to be under risk factor modification with lipid lowering aggressively as well as dietary modification. I have discussed the above with her as well. * Thank you for allowing me to participate in the care of your patient. Please don't hesitate to call if any issues arise 07/01/17 1414 <Electronically signed by Jose Gibson MD> Date Jose Gibson MD Cosigner Signature (if applicable): Date CC: Jose Gibson MD; Adair West III, MD Signed ECHOCARDIOGRAM COMPLETE Observed: 07/01/2017 Status: F Source: [place] 11:43 AM [facility] Cardiovascular Services [address] [place] [address] Echo Complete 07/01/17 0813 MR#: [id number] Acct: [id number] Name: GALILEO HUSTON Rep #: [id number] : 1935 82 From: Jose Gibson MD Attending Dr: Addison Cooper Status: ADM HIRAL Ordering Dr: Jose Gibson MD Date: 06/30/17 Location: [facility] Sex: F C Admitted: 06/30/17 Reason For Study: MURMUR Procedure This was a 2D Doppler, Color Flow transthoracic echocardiogram. Exam performed portable in patient room. Left Ventricle Normal LV size. The estimated ejection fraction is 45 %. Mild segmental systolic dysfunction (see wall motion). Transmitral diastolic flow velocities suggest severe (stage 3) diastolic dysfunction. Kerby : Hypokinetic. Mid-anteroseptal : Hypokinetic. Mid-Anterior : Hypokinetic. The rest of the wall segments are normal. Right Ventricle Normal RV size. Normal systolic function. Atria The left atrium is moderately enlarged. The right atrium is mildly enlarged. Mitral Valve There is moderate mitral annular calcification. Mild-Moderate (1-2+) eccentric mitral valve insufficiency. Tricuspid Valve Normal tricuspid valve. Mild to moderate (1-2+) tricuspid valve insufficiency. Pulmonary artery systolic pressure is 48 mmHg. Aortic Valve There is no aortic stenosis. Mild-Moderate (1-2+) eccentric aortic valve insufficiency. Bioprosthetic aortic valve. Pulmonic Valve Normal pulmonic valve. Mild-Moderate (1-2+) pulmonic valve insufficiency. Great Vessels Normal aortic root. The pulmonary artery is normal size. Inferior vena cava collapse with respiration. Pericardium/Pleural No pericardial effusion. MMode/2D Measurements AND Calculations LVIDd: 5.5 cm IVSd: 0.94 cm LVOT diam: 2.2 cm LVIDs: 3.5 cm LVPWd: 1.0 cm LVOT area: 3.6 cm2 RVDd: 4.1 cm FS: 35.9 % Ao root diam: 2.7 cm LAV(MOD-bp): 85.9 ml LA A4 area: 29.1 cm2 LAV(MOD-bp) Indexed: 45.7 ml/m2 LAV(MOD-sp2): 61.3 ml LAV(MOD-sp4): 94.8 ml RA A4 area: 22.9 cm2 Doppler Measurements AND Calculations MV E max tavo: 137.1 cm/sec Lat Peak E' Tavo: 3.1 cm/sec Med Peak E' Tavo: 2.8 cm/sec MV A max tavo: 70.2 cm/sec E/E' lat: 44.2 E/E' med: 48.8 MV E/A: 2.0 Ao V2 max: 188.3 cm/sec AI max tavo: 176.9 cm/sec LV V1 max: 110.9 cm/sec Ao max P.2 mmHg AI max P.6 mmHg LV V1 max P.9 mmHg Ao V2 mean: 119.1 cm/sec AI dec slope: 121.5 cm/sec2 LV V1 mean P.5 mmHg Ao mean P.6 mmHg AI P1/2t: 426.5 msec LV V1 mean: 73.7 cm/sec Ao V2 VTI: 38.3 cm LV V1 VTI: 23.9 cm CATHERINE(I,D): 2.3 cm2 CATHERINE(V,D): 2.1 cm2 SV(LVOT): 87.0 ml PA V2 max: 96.3 cm/sec PI end-d tavo: 117.9 cm/sec TR max tavo: 328.4 cm/sec TR max P.1 mmHg Interpretation Summary Normal LV size. The estimated ejection fraction is 45 %. Mild segmental systolic dysfunction (see wall motion). Transmitral diastolic flow velocities suggest severe (stage 3) diastolic dysfunction The left atrium is moderately enlarged. Mild to moderate (1-2+) tricuspid valve insufficiency. Bioprosthetic aortic valve. Mild-Moderate (1-2+) eccentric aortic valve insufficiency. Ordering Physician: Jose Gibson Referring Physician: ADAIR WEST Performed By: Jazzy Skelton, RDCS, RVT 07/01/17 1142 Date Jose Gibson MD CC: Jose Gibson MD; Adair West III, MD; Addison Cooper Date Dictated: 07/01/17 0813 Date Transcribed: 07/01/17 1142 Cloud Engagement Partner: Signed COMPREHENSIVE METABOLIC Collected: 07/01/2017 Status: F Source: [place] 5:44 AM [facility] TYPE CODE TESTS RESULT OUT OF RANGE REFERENCE UNITS LAB L501.0100 74-106 mg/dL High GLU 131 Result Comment: Fasting Glucose result greater than or equal to 126 mg/dL suggests DIABETES MELLITUS per A.D.A. criteria. Please note revised GLUCOSE reference range effective 2017. LAB L501.1000 7-18 mg/dL High BUN 40 LAB L501.1100 0.55-1.02 mg/dL High CREAT,SERUM 1.56 Result Comment: The validity of the calculated GFR AND GFRAA in patients over 70 years has not been determined. Clinical correlation is essential. LAB L501.1110 >60 mL/min Low EST GFR 34 Result Comment: Non- GFR Calc LAB L501.1115 >60 mL/min Low EST GFR - AA 41 Result Comment: GFR Calc LAB L501.1255 ml/min Normal Estimated CRCL 20.66 LAB L501.1300 10-20 RATIO High BUN/CRE 25.6 LAB L501.1500 6.4-8. g/dL Normal 2 T PROT 6.7 LAB L501.1800 3.2-5. g/dL Normal 0 ALB 3.3 LAB L501.1950 2.2-4. g/dL Normal 2 GLOB 3.4 LAB L501.2000 0.9-2. RATIO Normal 4 A/G 1.0 LAB L501.2200 8.5-10 mg/dL Low .1 CA 8.3 LAB L501.4100 15-37 U/L High AST 48 LAB L501.4305 45-117 U/L Normal ALK P 115 LAB L501.4405 13-56 U/L Normal ALT 49 LAB L501.4600 0.20-1 mg/dL Normal .00 T BILI 0.70 LAB L501.5300 136-14 mmol/L Normal 5 NA 141 LAB L501.5600 3.5-5. mmol/L Normal 1 K 4.2 LAB L501.5900 98-107 mmol/L Normal CL 105 LAB L501.6100 21.0-3 mmol/L Normal 2.0 CO2 25.0 LAB L501.6200 5-15 Normal GAP 11 Performed By: #### L500.4050, L500.4100, L501.9520 #### [facility] [address] [place], [place], [address] LIPID PROFILE Collected: 07/01/2017 Status: F Source: [place] 5:44 AM [facility] TYPE CODE TESTS RESULT OUT OF RANGE REFERENCE UNITS LAB L501.4900 200 mg/dL Normal CHOL 146 Result Comment: <200 mg/dL Desirable 200-240 mg/dL Borderline >240 mg/dL High Risk LAB L501.5000 mg/dL Normal TRIG 117 Result Comment: The drugs N-Acetylcysteine and Metamizole may falsely depress this assay. Serum Triglycerides Reference Interval Normal <150 mg/dL Borderline high 150 - 199 mg/dL High 200 - 499 mg/dL Very High > or = 500 mg/dL LAB L501.6400 mg/dL Low HDL 38 Result Comment: The drugs N-Acetylcysteine and Metamizole may falsely depress this assay. Reference Range HDL <40 mg/dL Low HDL Cholesterol HDL >or= 60 mg/dL High HDL Cholesterol LAB L501.6500 0-130 mg/dL Normal LDL 85 LAB L501.6600 5-40 mg/dL Normal VLDL 23 Performed By: #### L500.4050, L500.4100, L501.9520 #### [facility] [address] [place], [place], [id number] THYROID STIM HORMONE Collected: 07/01/2017 Status: F Source: [place] (TSH) 5:44 AM [facility] TYPE CODE TESTS RESULT OUT OF RANGE REFERENCE UNITS LAB L501.9520 0.358-3.74 uIU/mL High TSH 10.50 Performed By: #### L500.4050, L500.4100, L501.9520 #### [facility] [address] [place], [address] FREE T3 Collected: 07/01/2017 Status: F Source: [place] 5:44 AM [facility] TYPE CODE TESTS RESULT OUT OF RANGE REFERENCE UNITS LAB L501.64774 2.18-3.98 pg/mL Low FREE T3 1.4 Performed By: #### L501.33941, L501.9310, L506.0400 #### [facility] [address] [place], [address] T4 TOTAL, THYROXIN Collected: 07/01/2017 Status: F Source: [place] 5:44 AM [facility] TYPE CODE TESTS RESULT OUT OF RANGE REFERENCE UNITS LAB L501.9310 4.8-13.9 ug/dL T4 Normal THYROXIN 10.5 Performed By: #### L501.93055, L501.9310, L506.0400 #### [facility] [address] [place], [address] T4 FREE DIRECT Collected: 07/01/2017 Status: F Source: [place] 5:44 AM [facility] TYPE CODE TESTS RESULT OUT OF RANGE REFERENCE UNITS LAB L506.0400 0.76-1.46 ng/dL Normal T4 FREE 1.13 DIRECT Performed By: #### L501.15603, L501.9310, L506.0400 #### [facility] [address] [place], [address] TROPONIN-I Collected: 06/30/2017 Status: F Source: [place] 9:30 PM [facility] Order Comment: 'TROP' Serial specimen #1, #2 or #3: 3 LATE DUE TO FIRE. 'TROP' Serial specimen #1, #2, #3, or #4: 3 TYPE CODE TESTS RESULT OUT OF RANGE REFERENCE UNITS LAB L501.4010 <0.045 ng/mL High 0.178 TROPONIN-I Result Comment: TROPONIN-I EXPECTED VALUES <0.045 Negative 0.045 - 0.590 Consistent with Cardiac Damage > OR = 0.600 Critical Value Not every elevated troponin is indicative of VA. These values should be used with clinical judgement in examining the patient's clinical picture for diagnosis. To establish a diagnosis of VA versus myocardial injury, there must be a demonstrated rise and/or fall in the troponin values, in addition to ischemic symptoms, EKG changes, new regional wall motion abnormality, and/or angiographical evidence. PLEASE NOTE: REFERENCE RANGES EDITED 17 Performed By: #### L501.4010 #### [facility] [address] [place], [address] POTASSIUM Collected: 06/30/2017 Status: F Source: [place] 5:55 PM [facility] Order Comment: LATE DUE TO FIRE. TYPE CODE TESTS RESULT OUT OF RANGE REFERENCE UNITS LAB L501.5600 3.5-5.1 mmol/L Normal K 4.7 Performed By: #### L501.5600 #### [facility] [address] [facility] [place], [address] MAGNESIUM Collected: 06/30/2017 Status: F Source: [place] 5:55 PM [facility] Order Comment: LATE DUE TO FIRE. TYPE CODE TESTS RESULT OUT OF RANGE REFERENCE UNITS LAB L501.5200 1.6-2.6 mg/dL Normal MG 2.5 Performed By: #### L501.5200 #### [facility] [address] [facility] [place], [address] EMERGENCY DEPARTMENT Observed: 06/30/2017 Status: F Source: [place] SUMMARY 4:32 PM [facility] Medical Records Department [address] [place] [address] Emergency Department Summary 06/30/17 1336 MR#: [id number] Acct: [id number] Name: GALILEO HUSTON Rep #: [id number] : 1935 82 From: Jamshid Chen MD PCP: Adair West III, MD Status: ADM HIRAL - ER Visit Summary Date of Service: 06/30/17 Chief Complaint: Chest pain History of Present Illness: The patient is a 82 F who is in the process of transitioning from Dr. Keith to Dr. Gibson. Dr. Adair West III is her primary care physician. She reports that 5 days ago at [employer] her had a syncopal episode and she was very upset. She developed a substernal heaviness that was 9 out of 10 severity. This lasted several hours. She was short of breath with this. She denies any diaphoresis, nausea, or vomiting. Patient reports that over the course the past 5 days she has an intermittent substernal pressure the last minutes at a time. Is 10 out of 10 at worst and she is pain-free currently. Is worsened by exertion or nervousness. States that it is relieved by rest. She reports that it makes her short of breath a tiny bit nauseated. No vomiting or diaphoresis. Physical Examination: Vitals: Stable. Afebrile. General: Well-nourished and well-developed. Head: Normocephalic atraumatic. Neck: Supple, no lymphadenopathy. No JVD. Nontender. Cardiovascular: Cardiac regular rhythm. No murmurs. Respiratory: No respiratory distress. Clear to auscultation bilaterally. Abdominal: Soft, nontender, nondistended, normal bowel sounds. No guarding, rebound, or peritoneal signs. Back: Nontender. Extremities: Nontender, 1+ pitting edema of her lower extremities bilaterally. Skin: Normal color, no rash. Neurologic: Alert and oriented 3. Cranial nerves II through XII are intact. Normal strength and sensation. Psych: Normal affect. Test Results: EKG is sinus bradycardia at 58 with a first- degree AV block. She has T-wave inversions in leads I, aVL, V5, and V6. This is a change from November 152016. Chest x-ray shows chronic changes. CBC is remarkable for a hemoglobin of 11 and hematocrit of 34.6. Chem-7 is marked for potassium of 5.4, BUN of 37, creatinine 1.59, and glucose of 132. Initial troponin is 0.203. Emergency Department Course and Treatment: Patient was treated with aspirin. She is resting comfortably and is pain-free. Treatment Plan: Patient was discussed with Dr. Carpenter and Dr. Gibson. She will be admitted to the hospital for further evaluation and treatment. Disposition: Admitted in serious condition. Impression: 1. Chest pain. 2. Indeterminate troponin. 3. DARRELL score 5. 4. Coagulopathy on Eliquis. This note was generated with [employer] dictation software. It may contain incorrect words, spelling, and punctuation that were not noted in review of the chart prior to signing ED Disposition - Plan for ED Patient: Chief Complaint: Shortness of Breath Referrals: Adair West III, MD [Primary Care Provider] - What to do if you have Problems For any increased pain, shortness of breath, bleeding, nausea or vomiting, chest pain, or any unexpected problems, contact your Primary Care Provider. Call [facility] ([phone]) or report to the closest Emergency Room. Call 911 if necessary. 06/30/17 1632 <Electronically signed by Jamshid Chen MD> Date Jamshid Chen MD Cosigner Signature (If Indicated): Date CC: Adair West III, MD TROPONIN-I Collected: 06/30/2017 Status: F Source: [place] 3:45 PM [facility] Order Comment: 'TROP' Serial specimen #1, #2 or #3: 2 LATE DUE TO FIRE. TYPE CODE TESTS RESULT OUT OF RANGE REFERENCE UNITS LAB L501.4010 <0.045 ng/mL High 0.219 TROPONIN-I Result Comment: TROPONIN-I EXPECTED VALUES <0.045 Negative 0.045 - 0.590 Consistent with Cardiac Damage > OR = 0.600 Critical Value Not every elevated troponin is indicative of VA. These values should be used with clinical judgement in examining the patient's clinical picture for diagnosis. To establish a diagnosis of VA versus myocardial injury, there must be a demonstrated rise and/or fall in the troponin values, in addition to ischemic symptoms, EKG changes, new regional wall motion abnormality, and/or angiographical evidence. PLEASE NOTE: REFERENCE RANGES EDITED 17 Performed By: #### L501.4010 #### [facility] [address] [address] [facility] [place], [address] HISTORY AND PHYSICAL Observed: 06/30/2017 Status: F Source: [place] EXAM 2:26 PM [facility] Medical Records Department [address] [place] [address] History and Physical 06/30/17 1406 MR#: [id number] Acct: [id number] Name: GALILEO HUSTON Rep #: [id number] : 1935 82 From: Alexey Carpenter MD PCP: Adair West III, MD Status: ADM HIRAL Y Location: PCU [id number] Problem List (1) Atypical chest pain Status: Acute (2) HTN (hypertension) Status: Acute (3) Atrial fibrillation Status: Acute (4) CAD (coronary artery disease) Status: Chronic (5) Status post aorto-coronary artery bypass graft Status: Chronic (6) Status post bioprosthetic AVR Status: Chronic History of Present Illness Date of Admission: 06/30/17 Chief Complaint: Chest pressure for last 5 days The patient is a 82 year old F with extensive cardiac history including coronary artery disease status post stent in 2014 in the LAD, two-vessel CABG and bioprosthetic AVR in 12/2015, paroxysmal A. fib on Eliquis came to ER with chest pressure since Tuesday. Patient further said she was very upset when her had a syncope episode and felt like could not breathe chest pressure. Chest pressure is more on the right side feels heavy but gets exacerbated on mild exertion along with shortness of breath. She denies syncope, diaphoresis. Took sublingual nitrate and had mild relief. She denies any VA/severe anginal pains after cardiac surgery and perhaps has not stress or echo since cardiac surgery. She has chronic cough almost 1 and half years since cardiac surgery. No smoking history. Denies fever chills or URI symptoms. In ED, EKG shows sinus bradycardia with first-degree AV block, T inversion in lateral leads. Previous EKG in our record in November 2016 shows A. fib with T inversion in 1-lead V5. Troponin slightly elevated. [] Past Medical History Past Medical History (Chronic Problems): Chronic Problems Status post aorto-coronary artery bypass graft (Chronic) Status post bioprosthetic AVR (Chronic) CAD (coronary artery disease) (Chronic) CAD (coronary artery disease) (Chronic) Allergies atorvastatin [From Lipitor] Adverse Reaction (Verified 06/30/17 12:41) Pain in joints niacin Adverse Reaction (Verified 06/30/17 12:41) Pain in joints pregabalin [From Lyrica] Adverse Reaction (Verified 06/30/17 12:41) Other simvastatin [From Zocor] Adverse Reaction (Verified 06/30/17 12:41) Pain in joints Home Medications: Ambulatory Orders Medication Instructions Recorded Calcium Carbonate/Vitamin D3 1 each PO DAILY 02/24/16 Surgical History: coronary bypass surgery Psychiatric History: No pertinent psych hx Smoking Status: Never smoker - *Family History Maternal History Items: Diabetes, Heart Disease Review of Systems Constitutional: Denies: Chills, Fever, Weight Change HEENT: Denies: Head Aches, Sinus Congestion, Sinus Drainage Cardiovascular: Reports: Chest Pain, Chest Pressure. Denies: Palpitations Respiratory: Reports: Cough, Shortness of breath upon exertion. Denies: Shortness of breath at rest, Sputum production Gastrointestinal: Denies: Abdominal Pain, Nausea, Vomiting Genitourinary: Denies: Dysuria Musculoskeletal: Denies: Joint Pain, Joint Tenderness Skin: Reports: - - Varicose veins. Denies: Rash, Wounds Neurological: Denies: Numbness, Tingling, Focal weakness Psychiatric: Denies: Anxiety, Depression, Homicidal Ideations, Suicidal Ideations Hematologic/ Lymphatic: Denies: Easy Bruising, Easy Bleeding VTE Information - Inpt Only VTE Present on Admission: No VTE Mechan Device Prophylaxis: None VTE Pharm Prophylaxis ordered?: No Reason prophylaxis not ordered:: Procedure Not Indicated - Already on Eliquis Patient Problems: Active and Suspected Problems Atypical chest pain (Acute) - Physical Exam General: Alert, Oriented x3, Cooperative HEENT: Atraumatic, PERRLA, EOMI, Normocephalic Neck: Supple, No JVD, Negative Carotid Bruits Lungs: Clear to auscultation, Normal air movement Cardiovascular: Regular rate, Regular Rhythm, Normal S1, Normal S2, No murmurs Abdomen: Bowel Sounds Present, Soft, Non Tender, Non-Distended Extremities: No cyanosis, Capillary Refill Less than 3 Seconds, Edema Skin: No rashes, No breakdown Musculoskeletal: No Tenderness to Palpation of Joints or Extremities Neurological: Cranial nerves II-XII grossly intact Psych/Mental Status: Normal Affect, Appropriate Vital Signs Temp Pulse Resp BP Pulse Ox 98.0 F 53 L 21 H 156/75 H 96 06/30/17 12:36 06/30/17 13:49 06/30/17 13:49 06/30/17 13:49 06/30/17 13:49 Oxygen Delivery Method Room Air Weight: 204 lb 2.369 oz Body Mass Index (BMI) 39.9 Laboratory Tests Past 24 Hrs WBC 9.0 RBC 3.58 L Hgb 11.0 L Hct 34.6 L MCV 96.6 MCH 30.7 MCHC 31.8 L RDW 13.2 RDW Differential 45.8 H Assessment/Plan Active and Suspected Problems Atypical chest pain (Acute) The patient is a 82 year old F with extensive cardiac history including coronary artery disease status post stent in 2014 in the LAD, two-vessel CABG and bioprosthetic AVR in 12/2015, paroxysmal A. fib on Eliquis came to ER with chest pressure since Tuesday. Patient further said she was very upset when her had a syncope episode and felt like could not breathe chest pressure. Chest pressure is more on the right side feels heavy but gets exacerbated on mild exertion along with shortness of breath. She denies syncope, diaphoresis. Took sublingual nitrate and had mild relief. She denies any VA/severe anginal pains after cardiac surgery and perhaps has not stress or echo since cardiac surgery. She has chronic cough almost 1 and half years since cardiac surgery. No smoking history. Denies fever chills or URI symptoms. In ED, EKG shows sinus bradycardia with first-degree AV block, T inversion in lateral leads. Previous EKG in our record in November 2016 shows A. fib with T inversion in 1-lead V5. Troponin slightly elevated. Chest x-ray shows mild degree of increased interstitial markings at lung bases suggestive of scarring which is improved since prior study. Clinically, no history of COPD and smoking. 1. Atypical chest pressure with high suspicion of unstable angina: Patient is being admitted in PCU. Serial cardiac enzymes. EKG after [address] Chen already talked to Dr. gibson. Patient wants to transition her cardiac care from Dr. Keith to Dr. gibson as former is going to retire. Continue cardiac medications including Plavix, Eliquis, lisinopril and metoprolol. Patient is allergic to statin 2. Coronary artery disease status post two-vessel CABG, status post bioprosthetic porcine AVR, paroxysmal A. fib: Patient had echo in December 2015. We will try to get recent cardiac testing from Dr. Keith office. 3. Acute kidney injury with probably elevated creatinine from Lasix: Hold the Lasix. IV fluid normal saline at 75/h. Currently, 5.4, BUN 37, creatinine is 1.59, previous BUN 17 and creatinine 0.95 normal in November 2016 4. mild hyperkalemia: 5.4; probably from lisinopril. Kayexalate a small dose 15 g ordered. Repeat K in evening. Repeat BMP tomorrow a.m.. will hold lisinopril until his normal Other comorbidities include hypertension: Blood pressure is slightly elevated. Hydralazine p.o. until potassium is normal and lisinopril can be resumed DVT prophylaxis: Patient is already on Eliquis. Laboratory Results 06/30/17 12:45: WBC 9.0, RBC 3.58 L, Hgb 11.0 L, Hct 34.6 L, MCV 96.6, MCH 30.7, MCHC 31.8 L, RDW 13.2, RDW Differential 45.8 H, Plt Count 216, MPV 12.3 H, Immature Gran % (Auto) 0.100, Neut % (Auto) 69.5, Lymph % (Auto) 18.3 L, Bennett % (Auto) 10.6 H, Eos % (Auto) 1.1, Baso % (Auto) 0.4, Absolute Neuts (auto) 6.3, Absolute Lymphs (auto) 1.65, Total Counted Not Reportable 06/30/17 12:45: Sodium 140, Potassium 5.4 H, Chloride 105, Carbon Dioxide 25.0, Anion Gap 10, BUN 37 H, Creatinine 1.59 H, Estim Creat Clear Calc 20.27, Est GFR (MDRD) Af Amer 40 L, Est GFR (MDRD) Non-Af 33 L, BUN/Creatinine Ratio 23.3 H, Glucose 132 H, Calcium 9.2, Troponin I 0.203 H Clinical Impression(s) from Imaging Studies Chest X-Ray 06/30/17 12:39 IMPRESSION: Mild increased interstitial markings suggestive of scarring. This has improved as compared to prior study. Electronically Signed: Manish Zapata MD at 13:07 EDT Tel [phone], Service support , Code Visit OBSV E AND M: [id number] Initial observation care L3 06/30/17 1426 <Electronically signed by Alexey Carpenter MD> Date Alexey Carpenter MD Cosigner Signature: Date (if applicable) CC: Adair West III, MD; Alexey Carpenter MD Signed CBC W/DIFF, AUTOMATED Collected: 06/30/2017 Status: F Source: [place] 12:45 PM [facility] TYPE CODE TESTS RESULT OUT OF RANGE REFERENCE UNITS LAB L100.1000 4.4-11.0 K/mm3 Normal WBC 9.0 LAB L100.1200 4.2-5.4 M/mm3 Low RBC 3.58 LAB L100.1300 12.0-15.0 g/dl Low HGB 11.0 LAB L100.1400 37-47 % Low HCT 34.6 LAB L100.1500 81-99 fL Normal MCV 96.6 LAB L100.1600 27.0-32.0 pg Normal MCH 30.7 LAB L100.1700 32-36 g/gl Low MCHC 31.8 LAB L100.1810 11.6-14.6 % Normal RDW CV 13.2 LAB L100.1820 35.1-43.9 fl High RDW SD 45.8 LAB L100.1900 150-450 K/mm3 Normal PLT 216 LAB L100.2000 6.2-12.0 fl High MPV 12.3 LAB L100.2100 47-70 % Normal NEUT% 69.5 LAB L100.2200 19-41 % Low LY% 18.3 LAB L100.2300 0-10 % High MONO% 10.6 LAB L100.2400 0-5 % Normal EO% 1.1 LAB L100.2500 0-1 % Normal BASO% 0.4 LAB L100.2550 0.0-0.9 % Normal IM GRAN % 0.100 Result Comment: IG% - Immature Granulocytes (promyelocytes, myelocytes and metamyelocytes) > 1% indicates that a LEFT SHIFT is Present. LAB L100.2620 2.0-7.7 X10 3/uL Normal Absolute Neut 6.3 LAB L100.2720 0.83-4.51 X10 3/ul Normal Absolute Lymph 1.65 Performed By: #### L100.0100 #### [facility] [address] [place], [address] BASIC METABOLIC Collected: 06/30/2017 Status: F Source: [place] PROFILE (BMP) 12:45 PM [facility] TYPE CODE TESTS RESULT OUT OF RANGE REFERENCE UNITS LAB L501.0100 74-106 mg/dL High GLU 132 Result Comment: Fasting Glucose result greater than or equal to 126 mg/dL suggests DIABETES MELLITUS per A.D.A. criteria. Please note revised GLUCOSE reference range effective 2017. LAB L501.1000 7-18 mg/dL High BUN 37 LAB L501.1100 0.55-1.02 mg/dL High CREAT,SERUM 1.59 Result Comment: The validity of the calculated GFR AND GFRAA in patients over 70 years has not been determined. Clinical correlation is essential. LAB L501.1110 >60 mL/min Low EST GFR 33 Result Comment: Non- GFR Calc LAB L501.1115 >60 mL/min Low EST GFR - AA 40 Result Comment: GFR Calc LAB L501.1255 ml/min Normal Estimated CRCL 20.27 LAB L501.1300 10-20 RATIO High BUN/CRE 23.3 LAB L501.2200 8.5-10 mg/dL Normal .1 CA 9.2 LAB L501.5300 136-14 mmol/L Normal 5 NA 140 LAB L501.5600 3.5-5. mmol/L High 1 K 5.4 Result Comment: Moderate Hemolysis, Result may be falsely increased. LAB L501.5900 98-107 mmol/L Normal CL 105 LAB L501.6100 21.0-32.0 mmol/L Normal CO2 25.0 LAB L501.6200 5-15 Normal GAP 10 Performed By: #### L500.2500, L501.4010 #### [facility] [address] [place], [address] TROPONIN-I Collected: 06/30/2017 Status: F Source: [place] 12:45 PM [facility] TYPE CODE TESTS RESULT OUT OF RANGE REFERENCE UNITS LAB L501.4010 <0.045 ng/mL High 0.203 TROPONIN-I Result Comment: TROPONIN-I EXPECTED VALUES <0.045 Negative 0.045 - 0.590 Consistent with Cardiac Damage > OR = 0.600 Critical Value Not every elevated troponin is indicative of VA. These values should be used with clinical judgement in examining the patient's clinical picture for diagnosis. To establish a diagnosis of VA versus myocardial injury, there must be a demonstrated rise and/or fall in the troponin values, in addition to ischemic symptoms, EKG changes, new regional wall motion abnormality, and/or angiographical evidence. PLEASE NOTE: REFERENCE RANGES EDITED 17 Performed By: #### L500.2500, L501.4010 #### [facility] [address] [facility] [place], [address] BNP,B-TYPE NATRIURETIC Collected: 06/30/2017 Status: F Source: [place] PEPTIDE 12:45 PM [facility] TYPE CODE TESTS RESULT OUT OF RANGE REFERENCE UNITS LAB L503.6620 0-100 pg/mL High B-TYPE 1850.7 LALO PEP Performed By: #### L503.6620 #### [facility] [address] [facility] [place], [address] CHEST 1 VIEW Observed: 06/30/2017 Status: F Source: [place] (PORTABLE) 12:40 PM [facility] Imaging Services [address] [place] [address] Chest 1 View (Portable) MR#: [id number] Acct: [id number] Name: GALILEO HUSTON Rep #: [id number] : 1935 F 82 From: Manish Zapata MD PCP: Adair West III, MD Status: REG ER Study: Chest 1 View (Portable) Date of Exam: 06/30/17 Exam# [id number] Ordering Dr: Jamshid Chen MD STUDY: X-RAY CHEST REASON FOR EXAM: Female, 82 years old. Chest pressure and shortness of breath. TECHNIQUE: Single AP portable view of the chest. COMPARISON: Comparison is made with prior study dated November 15, 2016. FINDINGS: EKG electrodes are seen. Mild degree of increased interstitial markings at the lung bases suggestive of scarring. This is improved since prior study. Hyperinflation. There is no demonstrated pleural abnormality. Sternal cerclage wires and vascular clips are present from a prior sternotomy and coronary artery bypass graft procedure (CABG). Normal mediastinum and seun. Normal visualized pulmonary arteries. There is atherosclerotic tortuosity of the aortic arch and descending thoracic aorta. There are diffuse degenerative changes of the visualized thoracic spine. There is degenerative osteoarthritis of the bilateral shoulders. There is no demonstrated abnormality of the visualized soft tissue structures of the upper abdomen. RAD/Chest 1 View (Portable) IMPRESSION: Mild increased interstitial markings suggestive of scarring. This has improved as compared to prior study. Electronically Signed: Manish Zapata MD at 13:07 EDT Tel [phone], Service support , CC: Adair West III, MD; Jamshid Chen MD Cloud Engagement Partner: Signed ALT Collected: 06/21/2017 Status: F Source: [place] 2:50 PM [facility] REPOSITORY TYPE CODE TESTS RESULT OUT OF RANGE REFERENCE UNITS LAB ALT 7-38 U/L ALT 21 Performed By: #### ALT, BMP, LIPB, TSH #### [facility] [address] [address] BASIC METABOLIC PANL Collected: 06/21/2017 Status: F Source: [place] 2:50 PM [facility] REPOSITORY TYPE CODE TESTS RESULT OUT OF REFERENCE UNITS RANGE LAB GLU 74-99 mg/dL High Glucose 109 Result Comment: The [place] Diabetes Association (ADA) provides guidance for cutoff values for fasting glucose and random glucose. The ADA defines fasting as no caloric intake for at least 8 hours. Fas ting plasma glucose results between 100 to 125 mg/dL indicate increased risk for diabetes (prediabetes). Fasting plasma glucose results greater than or equal to 126 mg/dL meet the criteria for diagnosis of diabetes. In the absence of unequivocal hyperglycemia, results should be confirmed by repeat testing. In a patient with classic symptoms of hyperglycemia or hyperglycemic crisis, random plasma glucose results greater than or equal to 200 mg/dL meet the criteria for diagnosis of diabetes. Reference: Standards of Medical Care in Diabetes 2016, [place] [employer] Association. Diabetes Care. 2016.39(Suppl 1). LAB BUN 7-21 mg/dL BUN High 27 LAB CRET 0.58-0.96 mg/dL Creatinine High 1.44 LAB NA 136-144 mmol/L Sodium 142 LAB K 3.7-5.1 mmol/L Potassium 4.9 LAB CL 97-105 mmol/L Chloride 102 LAB CO2 22-30 mmol/L CO2 27 LAB AGAP 9-18 mmol/L Anion Gap 13 LAB CA 8.5-10.2 mg/dL Calcium, Total 9.6 LAB GFRAA eGFR- Amer. 42 LAB GFRNAA . eGFR-All Other Races 35 Result Comment: eGFR (Estimated GFR) Units of measure: mL/min/1.73 meters squared eGFR is derived from the reexpressed MDRD Study equation using the following parameters: serum creatinine, age, gender and race. The creatinine assay has been calibrated to be traceable to IDMS. An eGFR <60 mL/min/1.73m2 for >3 months is consistent with chronic kidney disease. Refer to KDOQI guidelines for clinical interpretation. In patients with unstable renal function, e.g. those with acute kidney injury, the eGFR may not accurately reflect actual GFR. Performed By: #### ALT, BMP, LIPB, TSH #### [facility] [address] [place], [place] [address] LIPID PANEL, BASIC Collected: 06/21/2017 Status: F Source: [place] 2:50 PM [facility] REPOSITORY TYPE CODE TESTS RESULT OUT OF REFERENCE UNITS RANGE LAB CHOL <200 mg/dL Cholesterol 196 Result Comment: <200 mg/dL, Desirable 200-239 mg/dL, Borderline high >239 mg/dL, High LAB TRIGLY <150 mg/dL Triglyceride 122 Result Comment: <150 mg/dL, Normal 150-199 mg/dL, Borderline high 200-499 mg/dL, High >499 mg/dL, Very high LAB HDL >39 mg/dL HDL-Cholesterol 48 Result Comment: 40-59 mg/dL, Acceptable >59 mg/dL, High: Negative risk factor for coronary heart disease <40 mg/dL, Low: Positive risk factor for coronary heart disease LAB LDL <100 mg/dL LDL-Cholesterol High 124 Result Comment: <100 mg/dL, Optimal 100-129 mg/dL, Near optimal/above optimal 130-159 mg/dL, Borderline high 160-189 mg/dL, High >189 mg/dL, Very high Secondary prevention optimal LDL Cholesterol levels are recommended to be < 70 mg/dL LAB NONHDL <130 mg/dL Non HDL High Cholesterol 148 Result Comment: <130 mg/dL, Optimal 130-159 mg/dL, Near optimal/above optimal 160-189 mg/dL, Borderline high 190-219 mg/dL, High >219 mg/dL, Very high Secondary prevention optimal non HDL Cholesterol levels are recommended to be < 100 mg/dL LAB FT hrs Fasting Time 4 LAB VLDL <30 mg/dL VLDL Cholesterol 24 LAB TCHDL <5.10 TC:HDL Ratio 4.08 LAB LDLHDL <2.54 High LDL:HDL Ratio 2.58 Result Comment: Reference: 1. National Cholesterol Education Program ATP III Guideline At-A-Glance Quick Desk Reference: National Heart, Lung, and Blood [place]. National Institutes of Health. 2001: NIH Publication No. 01-3305. 2. An International Atherosclerosis Society position paper: global recommendations for the management of dyslipidemia: executive summary, Atherosclerosis. 2014: 232(2):410-413. Performed By: #### ALT, BMP, LIPB, TSH #### [facility] [employer] [address] [id number] TSH Collected: 06/21/2017 Status: F Source: [place] 2:50 PM [facility] REPOSITORY TYPE CODE TESTS RESULT OUT OF RANGE REFERENCE UNITS LAB TSH 0.400-5.500 uU/mL High TSH 8.170 Performed By: #### ALT, BMP, LIPB, TSH #### [facility] [address] [place], [place] [address] PROGRESS Observed: 06/21/2017 Status: COMPLETED Source: [place] 2:25 PM [facility] CAMPUS REPOSITORY HNO ID: [id number] Author: Star Swain Service: (none) Author Type: Physician Type: Progress Notes Filed: 06/21/2017 5:38 PM Note Text: PERTINENT CARDIAC HISTORY Supravalvular pulmonic stenosis - mild HL HTN ASHD - moderate by cath 2002, PCI LAD 2014, CABGx2 01/29 Aortic stenosis - AVR (bio) 01/29 PAF - recurrent, cardioversion 12/31 ADHERENCE TO GUIDELINES FRANCISCO-I or ARB for HF with prior LVEF<40 (NQF 0081) - N/A ASA or Plavix for ASHD (NQF 0067) - met Beta marivel for ASHD with prior VA or prior LVEF<40 (NQF 0070) - met Beta marivel for HF with prior LVEF<40 (NQF 0083) - N/A FRANCISCO-I or ARB for ASHD with DM or prior LVEF<40 (NQF 0066) - N/A Statin therapy for ASHD or FHL or DM - met BMI documented and plan if >25 (NQF 0421) - lifestyle recommendation form Tobacco use screening and referral (NQF 0028) - lifestyle recommendation form Recommendation for whole food, plant based diet - lifestyle recommendation form CLINICAL IMPRESSION/PLAN: Galileo Huston has stable ischemic heart disease. By exam, her aortic valve gradients are acceptable. She maintains sinus rhythm. It is unlikely that she will maintain rhythm without an antiarrhythmic drug. However, she may do quite well off beta marivel at this point. I've asked her to gradually wean her metoprolol over the next week and then discontinue. I've asked her to call with an update on her vital signs and symptoms in one week. If she has worsening of shortness of breath or exercise intolerance, stress test will be performed. If she remains in sinus rhythm off metoprolol for a few weeks, we will consider decreasing her amiodarone to 100 milligrams daily. She will have lipid profile, TSH, ALT and basic profile for monitoring her drug therapy. Per her request, she will be referred referred to [facility] for continuing care. Written and verbal health teaching given to patient, patient verbalizes understanding and agrees with treatment plan. DIAGNOSIS FOR VISIT: Atrial fibrillation ASHD AVR HISTORY OF PRESENT ILLNESS Galileo Huston returns for follow-up of her multiple cardiac issues, as noted above. She underwent cardioversion which was uncomplicated. No changes were made in her medication. She would like to be off some of the medication. She has concerns about the dose of metoprolol and the fact that she is still on amiodarone. She's had some exercise intolerance . She has had no chest discomfort but notes fatigue while walking. She's had minimal edema. She denies syncope, palpitations, TIAs, amaurosis and claudication. Blood pressures have been well-controlled, the pulses have been frequently in the low fifties. She's had no sensation of palpitations. She has decided to stay with [facility]. She would like referral to [facility] , in anticipation of my care home next year. She would like to get established with Dr. Gibson, who saw her when she was in the hospital last fall. ALLERGIES: ALLERGIES Allergen Reactions - Bandaids [Other] - Lipitor [Atorvastat* Myalgia - Lyrica [Pregabalin] Mental Status Change - Niacin Other: See Comments myalgia - Zocor [Simvastatin] Other: See Comments myalgia CURRENT OUTPATIENT MEDICATIONS: amiodarone (CORDARONE) 200 mg tablet Take 1 tablet by mouth once daily. omeprazole (PRILOSEC) 20 mg capsule Take 1 capsule by mouth daily before breakfast. 1/2 hr before meal. apixaban (ELIQUIS) 5 mg tab(s) Take 1 tablet by mouth twice daily. clopidogrel (PLAVIX) 75 mg tablet Take 1 tablet by mouth once daily. furosemide (LASIX) 40 mg tablet Take 1 tablet by mouth once daily. lisinopril (ZESTRIL, PRINIVIL) 10 mg tablet Take 1 tablet by mouth once daily. metoprolol tartrate, short acting, (LOPRESSOR) 50 mg tablet Take 1 tablet by mouth twice daily. LORazepam (ATIVAN) 0.5 mg tab Take 1 tablet by mouth twice daily as needed (anxiety). melatonin 10 mg cap Take by mouth. calcium carbonate 600 mg-cholecalciferol 200 units (CALCIUM 600 + D,3,) 600 mg(1,500mg) -200 unit tab Take 1 tablet by mouth once daily. nitroglycerin sublingual (NITROQUICK) 0.4 mg SL tablet Dissolve 1 tablet under the tongue as needed. FOR CHEST PAIN. IF NO RELIEF CALL 911 Magnesium 250 mg tab 2 tablets in the morning and 2 tablet in the evening therapeutic multivitamin ORAL tablet Take one(1) tablet daily. fish oil/dha/epa(FISH OIL 1,200 MG-144 MG-216 MG CAP) one capsule every other day benzonatate (TESSALON PERLE) 100 mg capsule Take 1 capsule by mouth three times daily as needed. 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--complicated by atrial fibrillation - Statin intolerance 07/22/2016 - Syncope - Unspecified hemorrhoids without mention of complication Hemorrhoids PAST SURGICAL HISTORY Procedure Laterality Date - COLONOSCOP W/ OR W/O [facility] 06-09-04 Colonoscopy-repeat in - COLONOSCOP W/ OR W/O [facility] 04/10/15 Colonoscopy - COLPOSCOPY (VAGINOSCOPY) Colposcopy - EGD W/O OR W/BRUSH/WASH EGD - EGD W/O OR W/BRUSH/WASH 04/10/15 EGD - PAST SURGICAL HISTORY OF 10/18/14 heart cath- stent placed (at [facility] by Dr Gomez) - TOTAL KNEE REPLACEMENT 12/23/2008 Knee replacement, total FAMILY HISTORY Problem Relation Age of Onset - Heart Mother - Diabetes Mother - Alcohol/Drug Father - Thyroid Brother Social History Marital status: Spouse name: Years of education: Number of children: Social History Main Topics Smoking status: Never Smoker Smokeless tobacco: Never Used Alcohol use: No Drug use: No REVIEW OF SYSTEMS: General: No chills, fever, weight loss, night sweats. Respiratory: No productive cough. Cardiac: As noted above. GI: No melena. : No dysuria. Musculoskeletal: No myalgias. PHYSICAL EXAMINATION: S/he is alert and in no distress. VITAL SIGNS: BP 148/76 Pulse 53 Ht 5' 0 (1.52m) Wt 198 lb 8 oz (90.0kg) BMI 38.77 kg/(m2). SHEENT: Skin is warm and dry. No xanthelasmas appreciated. Pharynx is benign. There is no oral cyanosis. Neck: supple. No adenopathy or thyroid enlargement. Chest: Clear to percussion and auscultation. Trachea is midline. Air entry is equal. There is no chest wall tenderness. Cardiac: Regular rhythm. S1 and S2 are normal. PMI is nondisplaced. There is a soft systolic ejection murmur. No click is heard. Carotids are brisk without bruits. JVP is less than 10 cm. Abdomen: Soft and nontender. There are no pulsatile masses or bruits. No liver enlargement. Bowel sounds are active. Extremities: No edema. Pulses are intact and symmetrical. No clubbing or cyanosis. No femoral bruits. Neurologic: Grossly normal motor and sensory. S/he is alert and oriented x4. EKG today shows sinus rhythm with first degree AV block. There is mild QRS widening. Recent labs were reviewed. Renal function is mildly decreased. TSH and magnesium were normal. Electronically Signed: Star Swain MD June 21, 2017 2:25 PM CC:Adair West III Observed: 06/21/2017 Status: COMPLETED Source: [place] 2:00 PM [facility] OTHER CAMPUS REPOSITORY Office Visit (AGCARDWST) GALILEO HUSTON ([id number]) 1935 F NFR Date Time Provider Department 06/21/17 2:00 PM STAR SWAIN AGCARDWST During your visit today, we recorded the following information about you: Pulse Blood pressure Weight Height 53/minute 148/76 90 kg 1.524 m Star Swain 06/21/2017 5:38 PM Signed PERTINENT CARDIAC HISTORY Supravalvular pulmonic stenosis - mild HL HTN ASHD - moderate by cath 2002, PCI LAD 2014, CABGx2 01/29 Aortic stenosis - AVR (bio) 01/29 PAF - recurrent, cardioversion 12/31 ADHERENCE TO GUIDELINES FRANCISCO-I or ARB for HF with prior LVEF<40 (NQF 0081) - N/A ASA or Plavix for ASHD (NQF 0067) - met Beta marivel for ASHD with prior VA or prior LVEF<40 (NQF 0070) - met Beta marivel for HF with prior LVEF<40 (NQF 0083) - N/A FRANCISCO-I or ARB for ASHD with DM or prior LVEF<40 (NQF 0066) - N/A Statin therapy for ASHD or FHL or DM - met BMI documented and plan if >25 (NQF 0421) - lifestyle recommendation form Tobacco use screening and referral (NQF 0028) - lifestyle recommendation form Recommendation for whole food, plant based diet - lifestyle recommendation form CLINICAL IMPRESSION/PLAN: Galileo Huston has stable ischemic heart disease. By exam, her aortic valve gradients are acceptable. She maintains sinus rhythm. It is unlikely that she will maintain rhythm without an antiarrhythmic drug. However, she may do quite well off beta marivel at this point. I've asked her to gradually wean her metoprolol over the next week and then discontinue. I've asked her to call with an update on her vital signs and symptoms in one week. If she has worsening of shortness of breath or exercise intolerance, stress test will be performed. If she remains in sinus rhythm off metoprolol for a few weeks, we will consider decreasing her amiodarone to 100 milligrams daily. She will have lipid profile, TSH, ALT and basic profile for monitoring her drug therapy. Per her request, she will be referred referred to [facility] for continuing care. Written and verbal health teaching given to patient, patient verbalizes understanding and agrees with treatment plan. DIAGNOSIS FOR VISIT: Atrial fibrillation ASHD AVR HISTORY OF PRESENT ILLNESS Galileo Huston returns for follow-up of her multiple cardiac issues, as noted above. She underwent cardioversion which was uncomplicated. No changes were made in her medication. She would like to be off some of the medication. She has concerns about the dose of metoprolol and the fact that she is still on amiodarone. She's had some exercise intolerance . She has had no chest discomfort but notes fatigue while walking. She's had minimal edema. She denies syncope, palpitations, TIAs, amaurosis and claudication. Blood pressures have been well-controlled, the pulses have been frequently in the low fifties. She's had no sensation of palpitations. She has decided to stay with [facility]. She would like referral to [facility] , in anticipation of my care home next year. She would like to get established with Dr. Gibson, who saw her when she was in the hospital last fall. ALLERGIES: ALLERGIES Allergen Reactions - Bandaids [Other] - Lipitor [Atorvastat* Myalgia - Lyrica [Pregabalin] Mental Status Change - Niacin Other: See Comments myalgia - Zocor [Simvastatin] Other: See Comments myalgia CURRENT OUTPATIENT MEDICATIONS: amiodarone (CORDARONE) 200 mg tablet Take 1 tablet by mouth once daily. omeprazole (PRILOSEC) 20 mg capsule Take 1 capsule by mouth daily before breakfast. 1/2 hr before meal. apixaban (ELIQUIS) 5 mg tab(s) Take 1 tablet by mouth twice daily. clopidogrel (PLAVIX) 75 mg tablet Take 1 tablet by mouth once daily. furosemide (LASIX) 40 mg tablet Take 1 tablet by mouth once daily. lisinopril (ZESTRIL, PRINIVIL) 10 mg tablet Take 1 tablet by mouth once daily. metoprolol tartrate, short acting, (LOPRESSOR) 50 mg tablet Take 1 tablet by mouth twice daily. LORazepam (ATIVAN) 0.5 mg tab Take 1 tablet by mouth twice daily as needed (anxiety). melatonin 10 mg cap Take by mouth. calcium carbonate 600 mg-cholecalciferol 200 units (CALCIUM 600 + D,3,) 600 mg(1,500mg) -200 unit tab Take 1 tablet by mouth once daily. nitroglycerin sublingual (NITROQUICK) 0.4 mg SL tablet Dissolve 1 tablet under the tongue as needed. FOR CHEST PAIN. IF NO RELIEF CALL 911 Magnesium 250 mg tab 2 tablets in the morning and 2 tablet in the evening therapeutic multivitamin ORAL tablet Take one(1) tablet daily. fish oil/dha/epa(FISH OIL 1,200 MG-144 MG-216 MG CAP) one capsule every other day benzonatate (TESSALON PERLE) 100 mg capsule Take 1 capsule by mouth three times daily as needed. 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--complicated by atrial fibrillation - Statin intolerance 07/22/2016 - Syncope - Unspecified hemorrhoids without mention of complication Hemorrhoids PAST SURGICAL HISTORY Procedure Laterality Date - COLONOSCOP W/ OR W/O [facility] 06-09-04 Colonoscopy-repeat in - COLONOSCOP W/ OR W/O [facility] 04/10/15 Colonoscopy - COLPOSCOPY (VAGINOSCOPY) Colposcopy - EGD W/O OR W/BRUSH/WASH EGD - EGD W/O OR W/BRUSH/WASH 04/10/15 EGD - PAST SURGICAL HISTORY OF 10/18/14 heart cath- stent placed (at [facility] by Dr Gomez) - TOTAL KNEE REPLACEMENT 12/23/2008 Knee replacement, total FAMILY HISTORY Problem Relation Age of Onset - Heart Mother - Diabetes Mother - Alcohol/Drug Father - Thyroid Brother Social History Marital status: Spouse name: Years of education: Number of children: Social History Main Topics Smoking status: Never Smoker Smokeless tobacco: Never Used Alcohol use: No Drug use: No REVIEW OF SYSTEMS: General: No chills, fever, weight loss, night sweats. Respiratory: No productive cough. Cardiac: As noted above. GI: No melena. : No dysuria. Musculoskeletal: No myalgias. PHYSICAL EXAMINATION: S/he is alert and in no distress. VITAL SIGNS: BP 148/76 Pulse 53 Ht 5' 0 (1.52m) Wt 198 lb 8 oz (90.0kg) BMI 38.77 kg/(m2). SHEENT: Skin is warm and dry. No xanthelasmas appreciated. Pharynx is benign. There is no oral cyanosis. Neck: supple. No adenopathy or thyroid enlargement. Chest: Clear to percussion and auscultation. Trachea is midline. Air entry is equal. There is no chest wall tenderness. Cardiac: Regular rhythm. S1 and S2 are normal. PMI is nondisplaced. There is a soft systolic ejection murmur. No click is heard. Carotids are brisk without bruits. JVP is less than 10 cm. Abdomen: Soft and nontender. There are no pulsatile masses or bruits. No liver enlargement. Bowel sounds are active. Extremities: No edema. Pulses are intact and symmetrical. No clubbing or cyanosis. No femoral bruits. Neurologic: Grossly normal motor and sensory. S/he is alert and oriented x4. EKG today shows sinus rhythm with first degree AV block. There is mild QRS widening. Recent labs were reviewed. Renal function is mildly decreased. TSH and magnesium were normal. Electronically Signed: Star Swain MD June 21, 2017 2:25 PM CC:Adair West III, Kenneth E 06/21/2017 2:26 PM Signed Decrease metoprolol to 25 mg once a day Call in one week with report on symptoms and HR LIFESTYLE CHANGE A healthy lifestyle is the most important component of your overall treatment plan. Please give serious thought to the following areas and commit to making prison changes. EAT A WHOLE FOOD, PLANT BASED DIET The nutrition your body gets is more important than the medicine you take. What matters most is the overall way you eat. We encourage you to minimize the use of animal products (which include dairy and all meats except fatty fish) and use whole, unprocessed plant foods to provide your protein, vitamins and other nutrients. We have a lot of information to share with you on this topic. This is not a diet. It is a way of life that you will keep with you. EXERCISE REGULARLY It is not important to spend hours in the gym, lifting weights and perspiring heavily. A total of 2-3 hours per week of aerobic (causing you to be moderately short of breath) exercise is sufficient to improve your health. Talk to us before you begin a new exercise program, if you have heart disease or experience shortness of breath or chest pain. REDUCE STRESS Chronic emotional and physical stress leads to disease. Ways of reducing stress include meditation, visualization, prayer, yoga and other forms of relaxation therapy. Consistency is the chang. Find a technique that works for you and do it every day. CULTIVATE RELATIONSHIPS Loneliness and isolation have a major negative impact on health. Seek out others who can love, care for and nurture you. Avoid hurtful relationships. MAINTAIN IDEAL BODY WEIGHT The best way to do this is to do all the things above. Our bodies naturally find the right weight if we keep moving and feed ourselves the right food. If your BMI is greater than 25, we strongly recommend a referral to a weight management program. Please speak to us or your family physician about available programs. AVOID NICOTINE IN ALL FORMS This includes all tobacco products, whether chewed, smoked, vaped, or rubbed on the skin. Smoking cessation programs, which can make use of tobacco substitutes, medications to suppress cravings and behavior management, are available. Please contact your family physician about programs in your area. Referring Provider: ADAIR WEST III [[id number]] Allergies As of Date: 06/21/2017 Noted Allergy Reaction bandaids [Other] 09/30/2005 LIPITOR (ATORVASTATIN CALCIUM) 07/22/2016 17 - Myalgia LYRICA (PREGABALIN) 11/30/2010 1 - Mental Status Change NIACIN 11/30/2010 14 - Other: See Comments Comments: myalgia ZOCOR (SIMVASTATIN) 08/09/2011 14 - Other: See Comments Comments: myalgia Date Reviewed: 06/21/2017 Reviewed by: Obdulia Fields ([place]) - Fully Assessed Reason for Visit: Follow Up [171] Primary Visit Diagnosis:ASHD (arteriosclerotic heart disease) [I25.10] Other Visit Diagnosis:PAF (paroxysmal atrial fibrillation) ([facility]) [I48.0] Order(s):ECG B/O W INTERP (MED OFFICE) [ECG06] Order #: [id number] BASIC METABOLIC PNL [SQBMP] Order #: [id number] FUTURE TSH BLD [SQTSH] Order #: [id number] FUTURE ALT/SGPT [SQALT] Order #: [id number] FUTURE LIPID PANEL BASIC [SQLIPB] Order #: [id number] FUTURE amiodarone (CORDARONE) 200 mg tabletTake 1 tablet by mouth once daily.Disp: Rfl: metoprolol tartrate, short acting, (LOPRESSOR) 50 mg tabletTake 0.5 tablets by mouth once daily.Disp: Rfl: Prescriptions as of 06/21/2017 Sig: AMIODARONE 200 MG TABLET Take 1 tablet by mouth once d* METOPROLOL TARTRATE 50 MG TAB* Take 0.5 tablets by mouth onc* OMEPRAZOLE 20 MG CAPSULE,MANUEL* Take 1 capsule by mouth daily* APIXABAN 5 MG TABLET Take 1 tablet by mouth twice * CLOPIDOGREL 75 MG TABLET Take 1 tablet by mouth once d* FUROSEMIDE 40 MG TABLET Take 1 tablet by mouth once d* LISINOPRIL 10 MG TABLET Take 1 tablet by mouth once d* LORAZEPAM 0.5 MG TABLET Take 1 tablet by mouth twice * MELATONIN 10 MG CAPSULE Take by mouth. CALCIUM CARBONATE 600 MG (1,5* Take 1 tablet by mouth once d* NITROGLYCERIN 0.4 MG SUBLINGU* Dissolve 1 tablet under the t* MAGNESIUM 250 MG TABLET 2 tablets in the morning and * Patient taking differently: 250 mg twice daily. 2 tablets* * THERAPEUTIC MULTIVITAMIN TABL* Take one(1) tablet daily. 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 More... Sciatica [M54.30] INVALID FOR*03/02/2016 PUD (peptic ulcer disease) [K27.9] INVALID FOR* Mild cognitive impairment with memory loss [G31*INVALID FOR* Obesity [E66.9] INVALID FOR* Magnesium deficiency [E61.2] INVALID FOR*03/02/2016 ASHD (arteriosclerotic heart disease) [I25.10] INVALID FOR* Acute myocardial infarction (HCC) [I21.9] INVALID FOR* Moderate aortic stenosis [I35.0] INVALID FOR* Moderate aortic valve insufficiency [I35.1] INVALID FOR* Arthritis of both hands [M19.041, M19.042] INVALID FOR* Chronic congestive heart failure (HCC) [I50.9] INVALID FOR* Impaired fasting glucose [R73.01] INVALID FOR* Screening for colon cancer [Z12.11] INVALID FOR* Gastroesophageal reflux disease with esophagiti*INVALID FOR* History of aortic valve replacement [Z95.2] INVALID FOR* More... S/P CABG x 2 [Z95.1] INVALID FOR* More... Atrial fibrillation (HCC) [I48.91] INVALID FOR* More... Anemia [D64.9] INVALID FOR* Iron deficiency anemia [D50.9] INVALID FOR* Statin intolerance [Z78.9] INVALID FOR* Chronic anticoagulation [Z79.01] INVALID FOR* Other instructions from your clinician: Decrease metoprolol to 25 mg once a day Call in one week with report on symptoms and HR LIFESTYLE CHANGE A healthy lifestyle is the most important component of your overall treatment plan. Please give serious thought to the following areas and commit to making prison changes. EAT A WHOLE FOOD, PLANT BASED DIET The nutrition your body gets is more important than the medicine you take. What matters most is the overall way you eat. We encourage you to minimize the use of animal products (which include dairy and all meats except fatty fish) and use whole, unprocessed plant foods to provide your protein, vitamins and other nutrients. We have a lot of information to share with you on this topic. This is not a diet. It is a way of life that you will keep with you. EXERCISE REGULARLY It is not important to spend hours in the gym, lifting weights and perspiring heavily. A total of 2-3 hours per week of aerobic (causing you to be moderately short of breath) exercise is sufficient to improve your health. Talk to us before you begin a new exercise program, if you have heart disease or experience shortness of breath or chest pain. REDUCE STRESS Chronic emotional and physical stress leads to disease. Ways of reducing stress include meditation, visualization, prayer, yoga and other forms of relaxation therapy. Consistency is the chang. Find a technique that works for you and do it every day. CULTIVATE RELATIONSHIPS Loneliness and isolation have a major negative impact on health. Seek out others who can love, care for and nurture you. Avoid hurtful relationships. MAINTAIN IDEAL BODY WEIGHT The best way to do this is to do all the things above. Our bodies naturally find the right weight if we keep moving and feed ourselves the right food. If your BMI is greater than 25, we strongly recommend a referral to a weight management program. Please speak to us or your family physician about available programs. AVOID NICOTINE IN ALL FORMS This includes all tobacco products, whether chewed, smoked, vaped, or rubbed on the skin. Smoking cessation programs, which can make use of tobacco substitutes, medications to suppress cravings and behavior management, are available. Please contact your family physician about programs in your area. Prescriptions ordered this encounter Disp Refills Start End AMIODARONE 200 MG TABLET 06/21/2017 Class: Med Update Route: ORAL Sig: Take 1 tablet by mouth once daily. METOPROLOL TARTRATE 50 MG TABLET 06/21/2017 Class: Med Update Route: ORAL Sig: Take 0.5 tablets by mouth once daily. Medications Discontinued During This Encounter amiodarone (CORDARONE) 200 mg tablet 30 t* 6 03/01/2016 06/21/2017 Route: ORAL Sig: Take 1 tablet by mouth once daily for 30 days. Disc: Reason for discontinue is not on file. amiodarone (CORDARONE) 200 mg tablet 0 11/26/2016 06/21/2017 Class: Med Update Route: ORAL Sig: Take 1 tablet by mouth three times daily. For 2 wks, then twice daily for 2 weeks, then once daily Disc: Reason for discontinue is not on file. metoprolol tartrate, short acting, (* 11/22/2016 06/21/2017 Class: Med Update Route: ORAL Sig: Take 1 tablet by mouth twice daily. Patient taking differently: Take 25 mg by mouth twice daily. Disc: Reason for discontinue is not on file. Encounter Status:Closed by STAR SWAIN MD on 06/21/17 OBSOLETE Observed: 03/21/2017 Status: COMPLETED Source: [place] 12:00 AM [facility] OTHER [place] REPOSITORY Refill (AGCARDWST) GALILEO HUSTON ([id number]) 1935 F NFR Date Time Provider Department 03/21/17 STAR SWAIN AGCARDWST During your visit today, we recorded the following information about you: Vik Olvera, RN, RN 03/21/2017 4:35 PM Signed Patient wanted to verify that she is still supposed to be taking eliquis and plavix, thank you. Patient phones requesting refills as follows: Pending Prescriptions Disp Refills APIXABAN 5 MG TABLET 180 tablet 3 Sig: Take 1 tablet by mouth twice daily. COSME: No CLOPIDOGREL 75 MG TABLET 90 tablet 3 Sig: Take 1 tablet by mouth once daily. COSME: No Please review and advise. Vik Olvera RN Patient has been identified by name and date of : Yes Pending Prescriptions Disp Refills APIXABAN 5 MG TABLET 180 tablet 3 Sig: Take 1 tablet by mouth twice daily. COSME: No CLOPIDOGREL 75 MG TABLET 90 tablet 3 Sig: Take 1 tablet by mouth once daily. COSME: No RX INSTRUCTIONS: Patient aware RX will be sent to pharmacy. No need to notify patient. ADONIS Clayton MD 03/21/2017 4:37 PM Signed The following approved medication requests have been transmitted electronically. Signed Prescriptions Disp Refills apixaban (ELIQUIS) 5 mg tab(s) 180 tablet 3 Sig: Take 1 tablet by mouth twice daily. COSME: No Authorizing Provider: STAR SWAIN clopidogrel (PLAVIX) 75 mg tablet 90 tablet 3 Sig: Take 1 tablet by mouth once daily. COSME: No Authorizing Provider: STAR SWAIN MD Allergies As of Date: 03/21/2017 Noted Allergy Reaction LIPITOR (ATORVASTATIN CALCIUM) 07/22/2016 17 - Myalgia LYRICA (PREGABALIN) 11/30/2010 1 - Mental Status Change NIACIN 11/30/2010 14 - Other: See Comments Comments: myalgia ZOCOR (SIMVASTATIN) 08/09/2011 14 - Other: See Comments Comments: myalgia bandaids [Other] 09/30/2005 Date Reviewed: 11/26/2016 Reviewed by: Vik Kaba) ADONIS Olvera - Fully Assessed Reason for Visit: Refill Request [94] Order(s):apixaban (ELIQUIS) 5 mg tab(s)Take 1 tablet by mouth twice daily.Disp: 180 tabletRfl: 3 clopidogrel (PLAVIX) 75 mg tabletTake 1 tablet by mouth once daily.Disp: 90 tabletRfl: 3 Prescriptions as of 03/21/2017 Sig: APIXABAN 5 MG TABLET Take 1 tablet by mouth twice * CLOPIDOGREL 75 MG TABLET Take 1 tablet by mouth once d* FUROSEMIDE 40 MG TABLET Take 1 tablet by mouth once d* OMEPRAZOLE 20 MG CAPSULE,MANUEL* Take 1 capsule by mouth daily* LISINOPRIL 10 MG TABLET Take 1 tablet by mouth once d* AMIODARONE 200 MG TABLET Take 1 tablet by mouth three * METOPROLOL TARTRATE 50 MG TAB* Take 1 tablet by mouth twice * LORAZEPAM 0.5 MG TABLET Take 1 tablet by mouth twice * BENZONATATE 100 MG CAPSULE Take 1 capsule by mouth three* MELATONIN 10 MG CAPSULE Take by mouth. CALCIUM CARBONATE 600 MG (1,5* Take 1 tablet by mouth once d* NITROGLYCERIN 0.4 MG SUBLINGU* Dissolve 1 tablet under the t* MAGNESIUM 250 MG TABLET 2 tablets in the morning and * Patient taking differently: 250 mg twice daily. 2 tablets* * THERAPEUTIC MULTIVITAMIN TABL* Take one(1) tablet daily. 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 More... Sciatica [M54.30] INVALID FOR*03/02/2016 PUD (peptic ulcer disease) [K27.9] INVALID FOR* Mild cognitive impairment with memory loss [G31*INVALID FOR* Obesity [E66.9] INVALID FOR* Magnesium deficiency [E61.2] INVALID FOR*03/02/2016 ASHD (arteriosclerotic heart disease) [I25.10] INVALID FOR* Acute myocardial infarction (HCC) [I21.9] INVALID FOR* Moderate aortic stenosis [I35.0] INVALID FOR* Moderate aortic valve insufficiency [I35.1] INVALID FOR* Arthritis of both hands [M19.041, M19.042] INVALID FOR* Chronic congestive heart failure (HCC) [I50.9] INVALID FOR* Impaired fasting glucose [R73.01] INVALID FOR* Screening for colon cancer [Z12.11] INVALID FOR* Gastroesophageal reflux disease with esophagiti*INVALID FOR* History of aortic valve replacement [Z95.2] INVALID FOR* More... S/P CABG x 2 [Z95.1] INVALID FOR* More... Atrial fibrillation (HCC) [I48.91] INVALID FOR* More... Anemia [D64.9] INVALID FOR* Iron deficiency anemia [D50.9] INVALID FOR* Statin intolerance [Z78.9] INVALID FOR* Chronic anticoagulation [Z79.01] INVALID FOR* Prescriptions ordered this encounter Disp Refills Start End APIXABAN 5 MG TABLET 180 * 3 03/21/2017 Route: ORAL Sig: Take 1 tablet by mouth twice daily. CLOPIDOGREL 75 MG TABLET 90 t* 3 03/21/2017 Cmt: Med-sync patient. If too soon, we will put new RX on hold for next cycle. Route: ORAL Sig: Take 1 tablet by mouth once daily. Medications Discontinued During This Encounter apixaban (ELIQUIS) 5 mg tab tab(s) 180 * 3 02/15/2017 03/21/2017 Class: Print RX Route: ORAL Sig: Take 1 tablet by mouth twice daily. Disc: Reason for discontinue is not on file. clopidogrel (PLAVIX) 75 mg tablet 90 t* 1 08/31/2016 03/21/2017 Cmt: Med-sync patient. If too soon, we will put new RX on hold for next cycle. Sig: TAKE 1 TABLET EVERY DAY Disc: Reason for discontinue is not on file. Encounter Status:Closed by OBDULIA FIELDS MA on 03/21/17 ALLERGIES ALLERGIES DATE TYPE / CODE NAME / CODE REACTION SEVERITY SOURCE Drug niacin/[id number] Pain in Unknown [place] 9 Allergy/594736999( (RXNORM) joints [facility] Repository Drug simvastatin/F0060 Pain in Unknown [place] 9 Allergy/233666351( 19400(RXNORM) joints [facility] SNOM[facility]) Hospital Repository Drug atorvastatin/F006 Pain in Unknown [place] 9 Allergy/238820383( 532753(RXNORM) joints [facility] SN[facility]) Hospital Repository Drug pregabalin/I78172 Other Unknown [place] 9 Allergy/374709662( 0083(RXNORM) [facility] SNOM[facility]) Hospital Repository DRUG ATORVASTATIN Myalgia [place] 7 INGREDI/745401667( CALCIUM Clinic Other SNOMED CT) [place] Repository DRUG SIMVASTATIN OTHER: SEE C [place] 2 INGREDI/016706634( Clinic Other SNOMED CT) [place] Repository DRUG PREGABALIN Mental Chg [place] 1 INGREDI/708095525( Clinic Other SNOMED CT) [place] Repository DRUG NIACIN OTHER: SEE C [place] 1 INGREDI/587032409( Clinic Other SNOMED CT) [place] Repository Miscellaneous OTHER [place] 6 Allergy/974009519( Clinic Other SNOMED CT) [place] Repository NG/945408529(SNOME OTHER [facility] D CT) [facility] Repository NG/929779320(SNOME ATORVASTATIN [facility] D [facility]) CALCIUM [facility] Repository NG/200805257(SNOME PREGABALIN [facility] D CT) [facility] Repository NG/530961413(SNOME NIACIN [facility] D CT) [facility] Repository NG/771274925(SNOME SIMVASTATIN [facility] D CT) [facility] System Repository ENCOUNTERS ENCOUNTERS ADMIT/DISCHARGE ACCOUNT NUMBER ADMITTING ENCOUNTER LOCATION SOURCE CLASS 03/07/2018 [id number] [facility]ulatory [facility] ding:LAB Repository 03/07/2018/03/07/19 [id number] Ambulatory BMSBuilding: [place] 19 BMS.[facility] Repository 01/09/2018/01/11/20 [id number] Ambulatory [address] Repository 01/04/2018/01/05/20 [id number] Emergency [address] ding:ED Repository 11/09/2017/11/10/19 [id number] Ambulatory [address] Repository 11/09/2017/11/11/19 [id number] Ambulatory [address] Repository 10/03/2017/10/04/19 [id number] Ambulatory [address] Repository 08/31/2017/09/01/19 [id number] Ambulatory BMSBuilding: [place] 18 BMS.[facility] Repository 08/31/2017 [id number] Ambulatory BMSBuilding: [place] BMS.[facility] Repository 08/29/2017 [id number] Ambulatory BMSBuilding: [place] BMS.[facility] Repository 08/23/2017/07/11 [id number] Ambulatory [address] Repository 08/23/2017/08/24/19 [id number] Ambulatory [address] Repository 08/09/2017/08/11/19 [id number] Ambulatory [address] Repository 08/02/2017/08/03/19 [id number] Ambulatory [address] Repository 07/26/2017/07/28/19 [id number] Ambulatory [address] Repository 07/12/2017/07/14/19 [id number] Ambulatory [address] Repository 07/02/2017 [id number] Jay[place], Ambulatory BMSBuilding: [place] BMS.CF.[facility] Repository 07/02/2017 [id number] [place], Ambulatory BMSBuilding: [place] BMS.CF.[facility] Repository 07/02/2017 [id number] [facility], Ambulatory BMSBuilding: [place] BMS.[facility] Repository 07/02/2017 [id number] [facility], Ambulatory BMSBuilding: [place] BMS.[facility] Repository 06/30/2017/07/05/19 [id number] Ambulatory BMSBuilding: [address] Repository 06/30/2017/07/05/19 [id number] Ambulatory BMSBuilding: [address] Repository 06/30/2017 [id number] [facility], Ambulatory BMSBuilding: [place] BMS.[facility] Repository 06/30/2017 [id number] [facility], Ambulatory BMSBuilding: [place] BMS.CF.[facility] Repository 06/30/2017 [id number] [facility], Ambulatory BMSBuilding: [place] BMS.[facility] Repository 06/30/2017 [id number] [facility], Ambulatory BMSBuilding: [place] BMS.[facility] Repository 06/30/2017/07/05/19 [id number] Jayden, Inpatient [place] 18 Alexey [facility] ding:PCURoom Repository : FNS503Xhi: 1 06/21/2017/06/22/19 [id number] Ambulatory [address] [place] Repository 06/21/2017/06/22/19 [id number] Ambulatory [address] Other [place] Repository 06/21/2017/06/22/19 [id number] Ambulatory [address] MEDICAL Repository CENTERBuildi ng:CAGWS PAYERS PAYERS ENCOUNTER GUARANTOR PAYER SUBSCRIBER SOURCE 03/07/2018 GALILEO N Primary GALILEO N [place] [id number] Insurance:AD SHAFFERDOB: [id number] Repository [address]Imu: 330 [id number] [phone] (HP) Date:4080-26-95PB [address] [place] [address]AV: 03/07/2018 Secondary NOT GIVENUNK [place] Insurance:SELF PAY [facility] Number: Effective Repository Date:2018-03-07 03/07/2018 GALILEO N Primary GALILEO N [place] [id number] Insurance:AD SHAFFERDOB: [facility] [id number] Number: Repository [address]Nbd: 330 [id number] [phone] (HP) Date:7096-39-03NC [address] [place] [address]HK: 03/07/2018 Secondary NOT GIVENUNK [place] Insurance:SELF PAY [facility] Number: Effective Repository Date:2018-03-07 01/04/2018 GALILEO N Primary G[place]O N [place] [id number] Insurance:AD SHAFFERDOB: [facility] [id number] Number: Repository [address]Bro: 330 [id number] [phone] (HP) Date:7424-33-25LM [address] [address]JM: 01/04/2018 Secondary NOT GIVENUNK [place] Insurance:SELF PAY [facility] Number: Effective Repository Date:2018-01-04 08/31/2017 GALILEO N Primary GALILEO N [place] [id number] Insurance:AD SHAFFERDOB: [facility] [id number] Number: Repository [address]Szx: 330 [id number] [phone] (HP) Date:0617-90-46JP [facility] [address] [place] [address]YA: 08/31/2017 Secondary NOT GIVENUNK [place] Insurance:SELF PAY [facility] Number: Effective Repository Date:2017-08-29 08/31/2017 GALILEO N Primary G[place]O N [place] [id number] Insurance:AD SHAFFERDOB: [facility] [id number] Number: Repository [address]Dms: 330 [id number] [phone] (HP) Date:5830-74-85HK [facility] [address] [place] [address]MO: 08/31/2017 Secondary NOT GIVENUNK [place] Insurance:SELF PAY [facility] Number: Effective Repository Date:2017-08-31 08/29/2017 GALILEO N Primary [place] N [place] [id number] Insurance:AD SHAFFERDOB: [facility] [id number] Number: Repository [address]Arq: 330 [id number] [phone] (HP) Date:3645-31-30MJ [address] [address]QF: 08/29/2017 Secondary NOT GIVENUNK [place] Insurance:SELF PAY [facility] Number: Effective Repository Date:2017-08-29 07/02/2017 Galileo N Primary GALILEO N [place] [id number] Insurance:AD SHAFFERDOB: [facility] [id number] Number: Repository [address]Vuf: [id number] [phone]- Date:3111-15-89WA [address] (HP) [address] [address]YK: 07/02/2017 Secondary NOT GIVENUNK [place] Insurance:SELF PAY [facility] Number: Effective Repository Date:2017-07-02 07/02/2017 Galileo N Primary G[place]O N [place] [id number] Insurance:AD SHAFFERDOB: [address] Number: Repository [address]Wak: [id number] [phone]- Date:0056-57-91QL [address] (HP) [address] [address]BL: 07/02/2017 Secondary NOT GIVENUNK [place] Insurance:SELF PAY [facility] Number: Effective Repository Date:2017-07-02 07/02/2017 Galileo N Primary G[place]O N [place] [id number] Insurance:AD SHAFFERDOB: [facility] [id number] [place] [address] Number: Repository [address]Jnb: [id number] [phone]~330- Date:7892-18-85ED [address] (HP) [address] [address]AC: 07/02/2017 Secondary NOT GIVENUNK [place] Insurance:SELF PAY [facility] Number: Effective Repository Date:2017-07-02 07/02/2017 Galileo N Primary G[place]O N [place] [id number] Insurance:AD SHAFFERDOB: [facility] [id number] Number: Repository [address]Jps: [id number] [phone]- Date:8821-89-66SM [address] (HP) [address] [address]IV: 07/02/2017 Secondary NOT GIVENUNK [place] Insurance:SELF PAY [facility] Number: Effective Repository Date:2017-07-02 06/30/2017 Galile[place] N Primary GALILEO N [place] [id number] Insurance:AD ELIFFFERDOB: [facility] [id number] Number: Repository [address]Qlf: [id number] [phone]- Date:4187-46-21JU [address] (HP) [place] [address]FC: 06/30/2017 Secondary NOT GIVENUNK [place] Insurance:SELF PAY [facility] Number: Effective Repository Date:2017-06-30 06/30/2017 Galile[place] N Primary [place] N [place] [id number] Insurance:AD [facility] [id number] Health Campus Number: Repository [address]Tlh: 330 [id number] [phone] () Date:7207-26-08SY [address] [address]OL: 06/30/2017 Secondary NOT GIVENUNK [place] Insurance:SELF PAY [facility] Number: Effective Repository Date:2017-06-30 06/30/2017 Galileo N Primary G[place]O N [place] [id number] Insurance:AD TONJAB: [facility] [id number] Health Campus Number: Repository [address]Eub: [id number] [phone]~330- Date:1394-32-89SD [address] ) [address] [address]WN: 06/30/2017 Secondary NOT GIVENUNK [place] Insurance:SELF PAY [facility] Number: Effective Repository Date:2017-06-30 06/30/2017 Galileo N Primary GALILEO N [place] [id number] Insurance:AD ELIFFFERDOB: [facility] [id number] Health Campus Number: Repository [address]Qxr: [id number] [phone]- Date:9427-02-10MS [address] (HP) [address] [address]SY: 06/30/2017 Secondary NOT GIVENUNK [place] Insurance:SELF PAY [facility] Number: Effective Repository Date:2017-06-30 06/30/2017 Galileo N Primary G[place]ILEO N [place] [id number] Insurance:AD SHAFFERDOB: [facility] [id number] Health Campus Number: Repository [address]Mvg: [id number] [phone]- Date:4487-35-75WH [address] (HP) [address] [address]DV: 06/30/2017 Secondary NOT GIVENUNK [place] Insurance:SELF PAY [facility] Number: Effective Repository Date:2017-06-30 06/30/2017 Galileo N Primary GALILEO N [place] [id number] Insurance:AD SHAFFERDOB: [facility] [id number] Health Campus Number: Repository [address]Nsh: [id number] [phone]- Date:9766-85-10LM [address] (HP) [address] [address]NB: 06/30/2017 Secondary NOT GIVENUNK [place] Insurance:SELF PAY [facility] Number: Effective Repository Date:2017-06-30 06/30/2017 Galile[place] N Primary G[place]O N [place] [id number] Insurance:AD SHAFFERDOB: [facility] [id number] Health Campus Number: Repository [address]Bcs: [id number] [phone]- Date:6615-74-59[address] (HP) [address] [address]FE: 06/30/2017 Secondary NOT GIVENUNK [place] Insurance:SELF PAY [facility] Number: Effective Repository Date:2017-06-30 06/21/2017 GALILEO N Primary GALILEO N [facility] SHAFFERDOB: Insurance:PRIMETIME SHAFFERDOB: [facility] [id number] HEALTH PLAN [facility] [id number] Repository JANE LEW Number: [place] [id number] [id number]: 330) Date: [address] ()
== END ==
PROVIDERS: Family Provider Family Medicine; PCP Family Medicine; Referring Provider Physician Assistant Medical; Visit Provider Physician Assistant Medical
DX: I11.0 Hypertensive heart disease with heart failure (principal); I50.42 Chronic combined systolic (congestive) and diastolic (congestive) heart failure; I25.10 Atherosclerotic heart disease of native coronary artery without angina pectoris; I27.21 Secondary pulmonary arterial hypertension; I48.0 Paroxysmal atrial fibrillation
CPT/HCPCS: 36415; 80053; 84439; 84443

== ENCOUNTER → 2018-03-13 12:52 | Outpatient (CLI) | payer MEDICARE, SELFPAY ==
[2018-03-07 09:40] VITALS: BMI 38.8
--- NOTE | 2018-03-14 11:09 | PFT ---
INTRODUCTION: The patient is an 83-year-old female that presents for pulmonary function studies secondary to a diagnosis of coronary artery disease. Respiratory therapy reports good patient effort. Bronchodilators were used during testing. INTERPRETATION: Forced expiration spirometry demonstrates no evidence of a large airways obstructive ventilatory defect. There was no significant response to aerosolized bronchodilators. Spirograms are of good quality and plateau normally. Body plethysmography was performed and reveals lung volumes to be within normal limits. Diffusing capacity by single breath CO is mildly reduced at 64% of predicted. IMPRESSION: These pulmonary function studies only demonstrate the presence of a mild reduction in diffusing capacity, which could be related to an underlying pulmonary vascular disorder such as pulmonary hypertension. There are no previous pulmonary function studies available for comparison.
== END ==
PROVIDERS: Family Provider Family Medicine; PCP Family Medicine; Referring Provider Physician Assistant Medical; Visit Provider Physician Assistant Medical
DX: I25.10 Atherosclerotic heart disease of native coronary artery without angina pectoris (principal); I27.21 Secondary pulmonary arterial hypertension; I48.0 Paroxysmal atrial fibrillation; I11.9 Hypertensive heart disease without heart failure; I51.81 Takotsubo syndrome
CPT/HCPCS: 94060; 94726; 94729

== ENCOUNTER → 2018-03-24 09:33 | Outpatient (CLI) | payer MEDICARE, SELFPAY ==
[2018-03-07 09:40] VITALS: BMI 38.8
--- NOTE | 2018-03-24 09:40 | ECHOD_ITS ---
Reason For Study: CHF Procedure This was a 2D Doppler, Color Flow transthoracic echocardiogram. Exam performed in department. Left Ventricle Normal LV size. Left ventricular systolic function is normal. The estimated ejection fraction is 55 %. Stage 3 diastolic dysfunction. No regional wall motion abnormalities noted. Right Ventricle Normal RV size. Normal systolic function. Atria The left atrium is moderately enlarged. Normal right atrium. Mitral Valve There is moderate mitral annular calcification. Mild (1+) eccentric mitral valve insufficiency. Tricuspid Valve Normal tricuspid valve. Mild (1+) tricuspid valve insufficiency. Aortic Valve Mild (1+) eccentric aortic valve insufficiency. Bioprosthetic aortic valve. Pulmonic Valve Normal pulmonic valve. Great Vessels Normal aortic root. The pulmonary artery is normal size. Normal inferior vena cava. Pericardium/Pleural No pericardial effusion. MMode/2D Measurements & Calculations LVIDd: 4.6 cm IVSd: 1.1 cm LVOT diam: 2.0 cm LVIDs: 3.4 cm LVPWd: 1.1 cm LVOT area: 3.0 cm2 RVDd: 4.1 cm FS: 27.4 % Ao root diam: 3.2 cm LAV(MOD-bp): 87.7 ml LVAd ap4: 36.2 cm2 LAV(MOD-bp) Indexed: 47.1 ml/m2 EDV(MOD-sp4): 139.5 ml LAV(MOD-sp2): 80.2 ml EDV(sp4-el): 149.2 ml LAV(MOD-sp4): 81.2 ml LVAs ap4: 22.6 cm2 ESV(MOD-sp4): 63.2 ml ESV(sp4-el): 68.1 ml EF(MOD-sp4): 54.7 % EF(sp4-el): 54.4 % SV(MOD-sp4): 76.2 ml SV(sp4-el): 81.1 ml LA A4 area: 27.3 cm2 LA dimension(2D): 4.7 cm RA A4 area: 19.0 cm2 Time Measurements MV dec time: 0.24 sec Doppler Measurements & Calculations MV E max [place]: 160.3 cm/sec Lat Peak E' [place]: 9.4 cm/sec Med Peak E' [place]: 4.5 cm/sec MV A max [place]: 69.1 cm/sec E/E' lat: 17.1 E/E' med: 35.4 MV E/A: 2.3 MV P1/2t max [place]: 173.8 cm/sec Ao V2 max: 182.9 cm/sec LV V1 max: 98.9 cm/sec MV P1/2t: 66.7 msec Ao max P.4 mmHg LV V1 max P.9 mmHg Ao V2 mean: 118.5 cm/sec LV V1 mean P.3 mmHg MV dec slope: 762.5 cm/sec2 Ao mean P.6 mmHg LV V1 mean: 72.7 cm/sec MVA(P1/2t): 3.3 cm2 Ao V2 VTI: 46.3 cm LV V1 VTI: 29.7 cm CATHERINE(I,D): 1.9 cm2 CATHERINE(V,D): 1.6 cm2 SV(LVOT): 90.3 ml PA V2 max: 106.1 cm/sec PI end-d cub[place]: 72.2 cm/sec TR max [place]: 310.7 cm/sec TR max P.6 mmHg Interpretation Summary Normal LV size. Left ventricular systolic function is normal. The estimated ejection fraction is 55 %. Stage 3 diastolic dysfunction. Mild (1+) eccentric aortic valve insufficiency. Bioprosthetic aortic valve. Compared to previous study, the left ventricular systolic function has improved.. Ordering Physician: Montserrat Villa Referring Physician: ADAIR RODRIGUEZ Performed By: Tanna Timmons RDCS
== END ==
PROVIDERS: Family Provider Family Medicine; PCP Family Medicine; Referring Provider Physician Assistant Medical; Visit Provider Physician Assistant Medical
DX: I50.42 Chronic combined systolic (congestive) and diastolic (congestive) heart failure (principal)
CPT/HCPCS: 93306

== ENCOUNTER → 2018-04-24 12:51 | Outpatient (CLI) | payer MEDICARE, SELFPAY ==
[2018-03-07 09:40] VITALS: BMI 38.8
[2018-04-24 13:57] LABS: Anion Gap 10 (5-15); BUN 42 mg/dL (7-18); Calcium,Total 9.2 mg/dL (8.5-10.1); Chloride 106 mmol/L (98-107); Creatinine, Serum 1.75 mg/dL (0.55-1.02); EST Glomerular Filtration Rate 30 mL/min (>60); Est Glom Filt Rate - Afr Amer 36 mL/min (>60); Glucose 120 mg/dL (74-106); Potassium 4.9 mmol/L (3.5-5.1); Sodium Level 142 mmol/L (136-145)
== END ==
PROVIDERS: Family Provider Family Medicine; PCP Family Medicine; Referring Provider Nurse Practitioner Family; Visit Provider Nurse Practitioner Family
DX: I25.10 Atherosclerotic heart disease of native coronary artery without angina pectoris (principal); I10 Essential (primary) hypertension; I51.81 Takotsubo syndrome
CPT/HCPCS: 36415; 80048

== ENCOUNTER → 2018-05-23 08:34 | Outpatient (CLI) | payer MEDICARE, SELFPAY ==
[2018-03-07 09:40] VITALS: BMI 38.8
--- NOTE | 2018-05-23 08:38 | RDU_ITS ---
Reason For Study: HYPERTENSION Right Renal Artery Left Renal Artery Right renal artery ostium Left renal artery ostium 102.6/16.8 165.6/28.1 RSV/EDV. PSV/EDV. Right renal artery proximal Left renal artery proximal PSV/EDV 134.8/20.3 PSV/EDV. 84.4/16.8 . Right renal artery mid 132.6/26.4 Left renal artery mid 88.0/16.8 PSV/EDV. PSV/EDV . Right renal artery distal Left renal artery distal 88.1/22.0 111.9/21.2 PSV/EDV. PSV/EDV. Right Renal Parenchyma Left Renal Parenchyma Upper Pole Medula 31.3/5.4 PSV/EDV. Left upper pole medulla 27.6/6.6 Right upper pole medulla EDR .17 . PSV/EDV . Right upper pole medulla R.I. .83 . Left upper pole medulla EDR .24 . Upper Juan Daniel Cortx 28.7/6.7 PSV/EDV. Left upper pole medulla R.I. .76 . Right upper pole cortex EDR .23 . UP Cortex 20.3/7.5 PSV/EDV. Right upper pole cortex R.I. .77 . Left upper pole cortex EDR .37 . Right lower Pole medulla 32.6/9.3 Left upper pole cortex R.I. .63 . PSV/EDV . Left lower Pole medulla 30.3/7.5 Right lower pole medulla EDR .29 . PSV/EDV . Right lower pole medulla R.I. .71 . Left lower pole medulla EDR .25 . Lower Pole Cortex 31.3/10.6 Left lower pole medulla R.I. .75 . PSV/EDV. Lower Pole Cortx 19.4/5.7 PSV/EDV. Right lower pole cortex EDR .34 . Left lower pole cortex EDR .29 . Right lower pole cortex R.I. .66 . Left lower pole cortex R.I. .71 . Right Renal Hilar Left Renal Hilar Right Hilar avg 72.8/5.4 PSV/EDV. LT Hilar avg 35.8/5.7 PSV/EDV . Right hilar acceleration time 80 Left hilar acceleration time 70 m/sec. m/sec. Right Renal Dimensions Left Renal Dimensions Right kidney size 8.7 cm . Left kidney size 8.6 cm . Right cortical dimension 1.1 cm . Left cortical dimension 1.0 cm . Aorta Proximal abdominal aorta 1.8 X 1.7 cm . Distal abdominal aorta 1.6 X 1.6 cm . Proximal abdominal aorta peak systolic velocity is 106.8 cm/sec . Distal abdominal aorta peak systolic velocity is 106.7 cm/sec . Interpretation Summary < 60% stenosis bilateral renal arteries Right renal length diminished at 8.7cm Left renal length diminished at 8.6cm Borderline bilateral renal resistivity indices; possible intrinsic renal parenchymal disease-- clinical correlation would be appropriate. Ordering Physician: Matteo West Referring Physician: Matteo West Performed By: Rosa Coronado RVT
== END ==
PROVIDERS: Family Provider Family Medicine; PCP Family Medicine; Referring Provider Family Medicine; Visit Provider Family Medicine
DX: I10 Essential (primary) hypertension (principal)
CPT/HCPCS: 93975

== ENCOUNTER 2018-06-15 07:25 | Emergency (ER) | payer MEDICARE, SELFPAY ==
[2018-03-07 09:40] VITALS: BMI 38.8
[2018-06-15 07:26] VITALS: BP 165/71; PULSE 69; RESP 15; TEMP 36.7; O2SAT 96; BMI 38.5
--- NOTE | 2018-06-15 08:09 | CT_ITS ---
STUDY: CT ABDOMEN AND PELVIS WITHOUT CONTRAST REASON FOR EXAM: Female, 83 years old. Weakness. Several month history of diarrhea. RADIATION DOSAGE (If Supplied By Facility): CTDIvol = ( 24.02 ) mGy, DLP = ( 1182.20 ) mGycm TECHNIQUE: Transaxial images were obtained from the dome of the diaphragm to the symphysis pubis without oral contrast, and without intravenous contrast. Sagittal and coronal images were reconstructed. Individualized dose optimization techniques were used for this CT. COMPARISON: None. FINDINGS: Increased markings at the lung bases suggestive of atelectasis and/or scarring. Calcification of the mitral valve annulus. Normal liver. There are multiple gallstones. Normal spleen. Normal pancreas. Normal bilateral adrenal glands. Normal right kidney. Normal left kidney. Moderate sized hiatal hernia. Normal small intestine. There are multiple colonic diverticula consistent with diverticulosis. The appendix is visualized and appears normal. There is diffuse atherosclerotic calcification of the abdominal aorta and the visceral branches, without a demonstrated aneurysm. Normal inferior vena cava. Normal retroperitoneum. Normal urinary bladder. There is a small umbilical hernia containing fat. There are diffuse degenerative changes of the visualized lumbar spine. CT/Abdomen/Pelvis without Cont IMPRESSION: Multiple gallstones. Atherosclerotic aortic calcifications. Mild atelectasis and/or scarring at the lung bases Moderate sized hiatal hernia. Electronically Signed: Manish Zapata, at 10:29 EDT , Service support ,
--- NOTE | 2018-06-15 08:15 | ED.VISSUMM ---
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, esophageal surgery in the related to precancerous problems, she indicates for many years she has had chronic shortness of breath and fatigue for over a month she has had intermittent chronic abdominal pain associate with diarrhea and some dry heaves, she is at episodes where she feels very weak and tired and feels that she cannot keep her balance these episodes can last for a few minutes to an hour or so then they resolve and she is back to her baseline, her physicians are aware of the full constellation of her symptoms, she indicates she has had an outpatient evaluation including lab test colonoscopies other studies are unremarkable, she indicates she has some unspecified problem with her kidneys that is stable Presents the emerge part because she had persistent which she describes copious diarrhea last night and dry heaves she is unable to vomit because of her prior esophageal surgery She indicates she is on iron due to anemia and it was suggested to her by other providers that the iron might be causing her black stools and causing her abdominal pain Abdominal pain is generalized that comes and goes it is not associated with food or bowel habits, she is able to eat and drink, she indicates she has had no fever, no history of GI elements, no history of GI surgeries, Her cardiovascular status has been stable her neurologic status has been stable Physical Examination: [] Her vital signs are within normal range General, no distress resting comfortably HEENT is generally unremarkable The neck is supple no adenopathy Cardiovascular, regular rate and rhythm Lungs, clear bilateral Abdomen, soft nontender, she subjectively complains of a generalized diffuse abdominal discomfort really nothing on exam no rebound or guarding no fullness no organ megaly, rectal exam shows brown stool that is soft no pain no bleeding Extremities, no clubbing cyanosis or edema Neurologic, awake alert answering questions appropriately moving all 4 extremities awake and alert cranial nerves are normal her NIH score is 0 she walked into the emergency department without difficulty per staff Test Results: [] Emergency Department Course and Treatment: [] The patient's complaints are very generalized multiple and nonspecific her chief complaint is the fact she had copious diarrhea that is been going on for over a month, given all the above screening labs are obtained CT IV fluids stool for analysis Treatment Plan: [] The patient's screening labs are all generally unremarkable for her please of the reports, CT head abdomen unremarkable as well see those reports, IV fluids given went back to reassess her she is feeling at baseline explained test results to her and her family have explained at this time given the negative work-up the long duration of the symptoms the fact she has ongoing appointments and further work-up with her outpatient provider she is comfortable discharge home to follow-up with them she is really had no significant diarrhea in the emergency department she is able to eat and drink she will continue to force fluids bland diet following up with her outpatient providers and return for change in symptoms Disposition: [] Home stable Impression: [] Diarrhea, acute recurrent abdominal pain, acute recurrent weakness, etiology unclear This note was generated with [employer] dictation software. It may contain incorrect words, spelling, and punctuation that were not noted in review of the chart prior to signing ED Disposition - Plan for ED Patient: Referrals: Matteo West III, MD [Primary Care Provider] -
--- NOTE | 2018-06-15 08:19 | CT_ITS ---
STUDY: CT BRAIN WITHOUT CONTRAST REASON FOR EXAM: Female, 83 years old. Weakness. Diarrhea. RADIATION DOSAGE (If Supplied By Facility): CTDIvol = ( 44.99 ) mGy, DLP = ( 745.49 ) mGycm TECHNIQUE: Transaxial CT imaging of the brain was performed without administration of intravenous contrast material. Individualized dose optimization techniques were used for this CT. COMPARISON: No relevant priors. FINDINGS: Normal soft tissue structures. Normal calvarium. There is mild cerebral atrophy with widening of the extra-axial spaces and ventricular dilatation. There are areas of decreased attenuation within the white matter tracts of the supratentorial brain, consistent with microvascular disease changes. Normal basal ganglia and thalami. Normal brainstem. Normal cerebellum. There is no intracranial hemorrhage. There are no findings of an acute ischemic infarction. Normal visualized paranasal sinuses. CT/Brain/Head without Contrast IMPRESSION: Chronic involutional changes of the brain. Electronically Signed: Manish Zapata, at 9:37 EDT , Service support ,
[2018-06-15] MEDS: 0.9% Normal Saline 1,000 ML 125 ML IV (08:22)
[2018-06-15] MEDS: Morphine 4 MG/ML Syringe IV (08:22)
[2018-06-15] MEDS: Ondansetron 4 MG/2 ML Vial IV (08:22)
[2018-06-15 08:26] VITALS: BP 156/52; PULSE 55; RESP 16; TEMP 36.8; O2SAT 95
[2018-06-15 08:53] LABS: Absolute Lymphocyte Count 0.34 X10^3/ul (0.83-4.51); Absolute Neutrophil Count 6.6 X10^3/uL (2.0-7.7); Basophil# 0.02 X10^3/uL; Basophil% 0.3 % (0-1); Eosinophil# 0.13 X10^3/uL; Eosinophils% 1.7 % (0-5); Hematocrit 38.3 % (37-47); Hemoglobin 12.2 g/dl (12.0-15.0); Lymphocyte # 0.34 X10^3/ul (4.0); Lymphocyte % 4.5 % (19-41); Mean Corp Hgb Conc 31.9 g/gl (32-36); Mean Corpuscular Hgb 31.6 pg (27.0-32.0); Mean Corpuscular Volume 99.2 fL (81-99); Mean Platelet Vol. 11.7 fl (6.2-12.0); Monocyte# 0.46 X10^3/uL; Monocyte% 6.1 % (0-10); Neutrophil # 6.61 X10^3/uL (2.7-7.7); Neutrophil % 87.3 % (47-70); Platelet Count 161 K/mm3 (150-450); RBC Distribution Width CV 12.4 % (11.6-14.6); RBC Distribution Width SD 43.5 fl (35.1-43.9); Red Blood Count 3.86 M/mm3 (4.2-5.4); White Blood Count 7.6 K/mm3 (4.4-11.0)
[2018-06-15 09:00] LABS: AST(SGOT) 20 U/L (15-37); Alanine Aminotransfer ALT/SGPT 14 U/L (13-56); Albumin, Serum 3.9 g/dL (3.2-5.0); Alkaline Phosphatase 78 U/L (45-117); Anion Gap 6 (5-15); BUN 42 mg/dL (7-18); BUN/Creat Ratio 24.1 RATIO (10-20); Bilirubin, Direct 0.15 mg/dL (0.00-0.30); Chloride 107 mmol/L (98-107); Creatinine, Serum 1.74 mg/dL (0.55-1.02); EST Glomerular Filtration Rate 30 mL/min (>60); Est Glom Filt Rate - Afr Amer 36 mL/min (>60); Estimated Creatinine Clearance 18.21 ml/min; Globulin 3.9 g/dL (2.2-4.2); Glucose 117 mg/dL (74-106); Lipase 69 U/L (73-393); Potassium 5.4 mmol/L (3.5-5.1); Protein, Total 7.8 g/dL (6.4-8.2); Sodium Level 138 mmol/L (136-145)
[2018-06-15 09:16] LABS: Differential Indicated SCAN CRITERIA MET; POSITIVE COUNT NO; POSITIVE DIFFERENTIAL YES; POSITIVE MORPHOLOGY NO
[2018-06-15 09:58] VITALS: BP 113/40; PULSE 51; RESP 17; O2SAT 92
[2018-06-15 10:16] VITALS: BP 126/44; PULSE 54; RESP 19; O2SAT 91
--- NOTE | 2018-06-15 11:40 | ED.DEP ---
ED Disposition - Plan for ED Patient: Instructions: ED Vomiting Diarrhea Nonspecific Ad Referrals: Matteo West III, MD [Primary Care Provider] - Additional Instructions: Please continue your medications and follow-up with all of your outpatient providers in the next few days for further management return for change in symptoms
[2018-06-15 12:12] VITALS: BP 139/52; PULSE 61; RESP 16; O2SAT 97
--- NOTE | 2018-06-15 12:13 | ED.RN ---
PT INSTRUCTED TO KEEP LOG OF HOME BP'S, TAKE TO PCP. SHE STATES THEY ARE WORKING TO REGULATE BLOOD PRESSURES FOR THE PAST 3 WEEKS. PT AND DAUGHTER VOICE UNDERSTANDING.
== END 2018-06-15 12:15 | disposition home or self-care (01) ==
PROVIDERS: Emergency Provider Emergency Medicine; Family Provider Family Medicine; PCP Family Medicine
DX: R19.7 Diarrhea, unspecified (principal); R10.9 Unspecified abdominal pain; R53.1 Weakness; R11.0 Nausea; I48.91 Unspecified atrial fibrillation; Z79.01 Long term (current) use of anticoagulants; Z79.02 Long term (current) use of antithrombotics/antiplatelets; Z79.899 Other long term (current) drug therapy; Z95.1 Presence of aortocoronary bypass graft
CPT/HCPCS: 70450; 74176; 80048; 80076; 83690; 85025; 96361; 96374; 96375; 99283; J7030; J7040; J2405

== ENCOUNTER → 2018-11-16 11:18 | Outpatient (CLI) | payer MEDICARE, SELFPAY ==
[2018-11-16 10:30] VITALS: BMI 37.7
[2018-11-16 12:23] LABS: T4 Total, Thyroxin 13.8 ug/dL (4.8-13.9); Thyroid Stim Hormone (TSH) 1.22 uIU/mL (0.358-3.74)
== END ==
PROVIDERS: Family Provider Family Medicine; PCP Family Medicine; Referring Provider Internal Medicine Cardiovascular Disease; Visit Provider Internal Medicine Cardiovascular Disease
DX: I10 Essential (primary) hypertension (principal)
CPT/HCPCS: 36415; 84436; 84443

== ENCOUNTER → 2018-12-06 06:10 | Outpatient (CLI) | payer MEDICARE, SELFPAY ==
[2018-11-16 10:30] VITALS: BMI 37.7
--- NOTE | 2018-12-06 17:59 | STRESSREP ---
Stress Test Report Pharmacologic myocardial perfusion stress test. 83-year-old lady with a history of coronary artery disease and fatigue. Stress protocol: Resting EKG demonstrates sinus bradycardia with a rate of 48 bpm resting blood pressures 115/52 mmHg. 0.4 mg of regadenoson was infused per usual protocol followed by rapid intravenous and flush injection continuous EKG monitoring was performed. The maximum heart rate attained was 54 bpm which was 38% of maximum predicted heart rate the maximum workload was 1 metabolic equivalent. Patient maintained sinus rhythm throughout the recording. At rest there were no ST or T wave changes noted suggest abnormal flow reserve at peak infusion nonspecific ST-T wave changes were noted with no meet the criteria for abnormal flow reserve. The resting blood pressure was 115/52 with a final blood pressure 180/42. Myocardial perfusion protocol. 11.0 mCi of technetium 99m sestamibi was injected at rest. 0.4 mg of regadenoson was infused per usual protocol peak infusion 36.0 mCi of technetium 99m sestamibi was injected stress images were obtained stress and rest images were reconstructed and compared in the short axis vertical long horizontal long axis. Gated images were also obtained Perfusion SPECT analysis: Review of the stress images demonstrate normal uptake of tracer noted in all the rest of the myocardium the resting images similar demonstrate normal uptake of tracer noted in all areas of the myocardium. No areas of reversibility are noted suggest ischemia. Gated SPECT analysis: The gated ejection fraction is noted to be 68%. Conclusion: Normal pharmacologic myocardial perfusion stress test. Sinus bradycardia noted. Preserved ejection fraction.
== END ==
PROVIDERS: Family Provider Family Medicine; PCP Family Medicine; Referring Provider Internal Medicine Cardiovascular Disease; Visit Provider Internal Medicine Cardiovascular Disease
DX: I25.10 Atherosclerotic heart disease of native coronary artery without angina pectoris (principal); Z95.1 Presence of aortocoronary bypass graft
CPT/HCPCS: 78452; 93017; A9500; A4216; J2785

== ENCOUNTER 2019-05-26 20:38 | Emergency (ER) | payer MEDICARE, SELFPAY ==
[2019-05-22 10:31] VITALS: BMI 37.7
[2019-05-26 20:39] VITALS: BP 119/68; PULSE 103; PULSE 94; RESP 18; RESP 23; TEMP 36.6; O2SAT 100; BMI 37.0
[2019-05-26 20:49] VITALS: O2SAT 100
--- NOTE | 2019-05-26 21:06 | EKG12_ITS ---
Test Reason : ST DEPRESSION Blood Pressure : / mmHG Vent. Rate : 090 BPM Atrial Rate : 258 BPM P-R Int : 000 ms QRS Dur : 124 ms QT Int : 430 ms P-R-T Axes : 000 -39 047 degrees QTc Int : 526 ms Atrial fibrillation Left axis deviation Left bundle branch block Abnormal ECG Confirmed by MANPREET JIMENEZ, OZ ([id number]), web content editor SAMEERA CARNEY ([id number]) on 05/28/2019 8:30:45 AM Referred By: JOSHUA Confirmed By:OZ CASE MD
--- NOTE | 2019-05-26 21:07 | ED.VIS.GEN ---
History of Present Illness Chief Complaint: Shortness of Breath Informant: Patient Narrative: Patient presents the emergency department following a near syncopal episode. Patient states she was on the phone when she got up she suddenly got very nauseated like she needed to vomit. She states she then got an urge to have diarrhea and went to the bathroom and had a bowel movement but it was not diarrhea. She states she was breathing fast and her hands and her feet were tingling. All of her symptoms are significantly improved but she states the right foot still feels different but cannot ask describe it. EMS notes that she was tachypneic but lung sounds were essentially clear. Patient denies any chest pain cough shortness of breath. No fevers. No rashes. No known bad food exposures. Past Medical History - Allergies and Home Meds Allergies/Adverse Reactions: Allergies atorvastatin [From Lipitor] Adverse Reaction (Verified 05/26/19 20:38) Pain in joints niacin Adverse Reaction (Verified 05/26/19 20:38) Pain in joints pregabalin [From Lyrica] Adverse Reaction (Verified 05/26/19 20:38) Other simvastatin [From Zocor] Adverse Reaction (Verified 05/26/19 20:38) Pain in joints Primary Care Physician: Matteo West III, MD [Primary Care Provider] - As Needed Surgical History: coronary bypass surgery Smoking Status: Never smoker - Family History Maternal Family History: Family History (Last Reviewed 11/16/18 @ 10:[address] Jose Mason MD) Mother Diabetes Heart disease Other CAD (coronary artery disease) Family History: Reports: Diabetes, Heart Disease Review of Systems General: Denies: Chills, Fever, Sweats Eyes: Denies: Visual changes - bilaterally, Diplopia ENT: Denies: Rhinorrhea, Sore throat Cardiovascular: Denies: Chest pain, Palpitations Respiratory: Denies: Dyspnea, Cough, Dyspnea on exertion Gastrointestinal: Reports: Abdominal pain, Nausea. Denies: Vomiting, Diarrhea, Melena, Hematochezia Genitourinary: Denies: Dysuria, Hematuria, Frequency Musculoskeletal: Denies: Back pain, Extremity Pain Skin: Denies: Rash, Wounds Neurological: Reports: Parasthesia. Denies: Headache, Weakness, Numbness Physical Exam Vital Signs/Narrative: Vital Signs Temp Pulse Resp BP Pulse Ox 05/26/19 20:39 97.8 F 94 23 H 119/68 100 Inital Vital Signs reviewed: Yes General: Well nourished, Well developed, No Acute Distress Head: Normocephalic, Atraumatic Eyes: Perrl, EOMI ENT: Moist mucous membranes, No rhinorrhea Neck: Supple, Nontender Cardiovascular: Regular rate, Regular rhythm, No murmurs Respiratory: No distress, CTA bilaterally, Chest nontender Abdomen: Soft, Nontender, Nondistended, Normal bowel sounds Back: Nontender, Normal Inspection Extremities: Nontender, No edema Skin: Normal color, No rash Neurological: Alert, Oriented x3, Cranial nerves II-XII grossly intact, Normal Strength, Normal Sensation Psychological: Normal affect, Normal Mood Diagnostic/Tx/Re-eval - EKG Initial EKG Interpretation: Atrial Fibrillation - EKG demonstrates atrial fibrillation at a rate of 90 with a left bundle branch block. - Medical Decision Making Basic labs were normal. Patient received some Zofran and overall feels much better. She has not had any diarrhea. Advised the patient that she probably had a vasovagal near syncopal episode as well as a degree of anxiety given the fact that she had hand and feet paresthesias while tachypneic and her CO2 was low for EMS. Patient was advised I cannot tell her whether or not she is going to have a gastroenteritis tomorrow. I advised her to make sure she drinks plenty of fluids. If she is worsening to return I will write for some Zofran. ED Disposition - Plan for ED Patient: Disposition: Home or Assisted Living Diagnosis: Nausea, Vasovagal near-syncope Instructions: ED Near Syncope Vasovagal, ED Viral Gastroenteritis Prescriptions: Ondansetron [Zofran Odt] 4 mg PO Q8H PRN PRN #14 tab PRN Reason: Nausea Prescription Printed Referrals: Matteo West III, MD [Primary Care Provider] - As Needed
[2019-05-26] MEDS: Ondansetron 4 MG/2 ML Vial IV (21:19)
[2019-05-26 21:33] LABS: Absolute Lymphocyte Count 1.76 X10^3/uL (0.83-4.51); Absolute Neutrophil Count 4.1 X10^3/uL (2.0-7.7); Basophil# 0.06 X10^3/uL; Basophil% 0.9 % (0-1); Eosinophil# 0.22 X10^3/uL; Eosinophils% 3.3 % (0-5); Hematocrit 36.5 % (37-47); Hemoglobin 11.7 g/dL (12.0-15.0); Lymphocyte # 1.76 X10^3/ul (4.0); Lymphocyte % 26.6 % (19-41); Mean Corp Hgb Conc 32.1 g/dL (32-36); Mean Corpuscular Hgb 30.7 pg (27.0-32.0); Mean Corpuscular Volume 95.8 fL (81-99); Monocyte# 0.51 X10^3/uL; Monocyte% 7.7 % (0-10); NRBC Flagged by Analyzer 0 % (0-5); Neutrophil # 4.05 X10^3/uL (2.7-7.7); Neutrophil % 61.2 % (47-70); Platelet Count 203 K/mm3 (150-450); RBC Distribution Width CV 12.7 % (11.6-14.6); RBC Distribution Width SD 44.9 fl (35.1-43.9); Red Blood Count 3.81 M/mm3 (4.2-5.4); White Blood Count 6.6 K/mm3 (4.4-11.0)
[2019-05-26 21:47] LABS: AST(SGOT) 22 U/L (15-37); Alanine Aminotransfer ALT/SGPT 16 U/L (13-56); Albumin, Serum 4.1 g/dL (3.2-5.0); Alkaline Phosphatase 110 U/L (45-117); Anion Gap 11 (5-15); BUN 53 mg/dL (7-18); BUN/Creat Ratio 23.2 RATIO (10-20); Calcium,Total 9.7 mg/dL (8.5-10.1); Chloride 107 mmol/L (98-107); Creatinine, Serum 2.28 mg/dL (0.55-1.02); EST Glomerular Filtration Rate 22 mL/min (>60); Est Glom Filt Rate - Afr Amer 26 mL/min (>60); Estimated Creatinine Clearance 13.66 ml/min; Glucose 169 mg/dL (74-106); Lipase 97 U/L (73-393); Protein, Total 8.1 g/dL (6.4-8.2); Sodium Level 140 mmol/L (136-145)
[2019-05-26 22:45] VITALS: BP 118/68; PULSE 82; RESP 18; O2SAT 98
== END 2019-05-26 22:46 | disposition home or self-care (01) ==
PROVIDERS: Emergency Provider Emergency Medicine; PCP Family Medicine
DX: R55 Syncope and collapse (principal); R06.82 Tachypnea, not elsewhere classified; R11.0 Nausea; I48.91 Unspecified atrial fibrillation; I44.7 Left bundle-branch block, unspecified; R20.2 Paresthesia of skin; F41.9 Anxiety disorder, unspecified; Z79.02 Long term (current) use of antithrombotics/antiplatelets; Z79.01 Long term (current) use of anticoagulants; Z79.899 Other long term (current) drug therapy; Z95.1 Presence of aortocoronary bypass graft
CPT/HCPCS: 80053; 83690; 84484; 85025; 93005; 96374; 99285; A4216; J2405

== ENCOUNTER → 2019-07-27 14:53 | Outpatient (CLI) | payer MEDICARE, SELFPAY ==
[2019-07-27 13:19] VITALS: BMI 35.9
[2019-07-27 17:35] LABS: Anion Gap 4 (5-15); BUN 48 mg/dL (7-18); BUN/Creat Ratio 26.7 RATIO (10-20); Calcium,Total 9.5 mg/dL (8.5-10.1); Chloride 105 mmol/L (98-107); EST Glomerular Filtration Rate 29 mL/min (>60); Est Glom Filt Rate - Afr Amer 35 mL/min (>60); Glucose 111 mg/dL (74-106); Potassium 4.4 mmol/L (3.5-5.1); Sodium Level 141 mmol/L (136-145); Thyroid Stim Hormone (TSH) 1.59 uIU/mL (0.358-3.74)
--- OUTSIDE RECORDS SUMMARY | 2019-12-02 12:47 | XMS RPT_ITS | CCD ---
:1935 External Reference #:[id number] Author Organization [facility] Care Team Providers Name Role Phone BRYNN, E Unavailable Unavailable CEBUL III, A Unavailable Unavailable BRYNN, E Unavailable Unavailable BRYNN, E Unavailable Unavailable BRYNN, E Unavailable Unavailable Aron MADSEN Unavailable Unavailable CEBUL, A III Unavailable Unavailable MARCELA, N Unavailable Unavailable CEBUL Unavailable Unavailable CEBUL Unavailable Unavailable BRYNN Unavailable Unavailable BRYNN Unavailable Unavailable BRYNN Unavailable Unavailable BRYNN Unavailable Unavailable Cebul, A Primary Care Provider Allergies Reported Allergen Reaction(s) Severity Date of Onset Location atorvastatin Myalgia 07-22-2016 - [facility] c Translations: [ Other [place] ATORVASTATIN CALCIUM, Reposi tory ATORVASTATIN CALCIUM] bandaids [Other] 09-30-2005 - Amando clifton ([id number]) niacin Translations: [ Other: See Comments 11-30-2010 - [facility] NIACIN, NIACIN] Other [place] Repository pregabalin Mental Status [facility] Transl[facility]: [ Other [place] PREGABALIN, Repository PREGABALIN] simvastatin Other: See Comments 08-09-2011 [facility] Translations: [ Other [place] SIMVASTATIN, Repository SIMVASTATIN] OTHER Translations: [ 09-30-2005 - [facility] OTHER, OTHER] Other [place] [facility] Medications Medication Name Sig Date Prescriber Location Amiodarone amiodarone 06-21-2017 Star Perez (Hist) [facility] (CORDARONE) 200 mg Brynn (60750) tablet Take 1 tablet by mouth once daily. 0 06/21/2017 Active Comment: Take 1 tablet by mouth once daily. amLODIPine amLODIPine (NORVASC) 5 mg 05-22-2018 Abi Santana [facility] tablet Indications: (70170) Essential hypertension, benign Take 1 tablet by mouth once daily. 30 tablet 11 05/22/2018 Active Comment: Take 1 tablet by mouth once daily. apixaban apixaban (ELIQUIS) 5 mg 11-15-2019 Adair Rodriguez [facility] ([id number]) tab(s) Take 0.5 tablets by mouth twice daily. 180 tablet 3 11/15/2019 Active apixaban (ELIQUIS) 5 mg 03-21-2017 - Star Perez (Hist) [facility] tab(s) Take 1 tablet by 11-15-2019 [facility] ([id number]) mouth twice daily. 180 tablet 3 03/21/2017 11/15/2019 Discontinued (Adjust Sig - Block E-Cancel) Comment: Take 1 tablet by mouth twice daily. Take 0.5 tablets by mouth tw ice daily. Calcium Carbonate / calcium carbonate 600 03-02-2016 Adair Goel Cholecalciferol mg-cholecalciferol 200 [facility] (81611) units (CALCIUM 600 + D,3,) 600 mg(1,500mg) -200 unit tab Take 1 tablet by mouth once daily. 0 03/02/2016 Active Comment: Take 1 tablet by mouth once daily. Cholestyramine Resin cholestyramine-sucrose 07-04-2018 Adair Goel (QUESTRAN) 4 gram powder [facility] shanae (33188) Indications: Chronic diarrhea Take 4 g by mouth three times daily with meals. 378 g 5 07/04/2018 Active Comment: Take 4 g by mouth three time s daily with meals. clopidogrel clopidogrel (PLAVIX) 75 03-21-2017 Star Perez (Hist) [facility] mg tablet Take 1 tablet [place] (441 95) by mouth once daily. 90 tablet 3 03/21/2017 Active Comment: Take 1 tablet by mouth once daily. Compression Compression Stockings 12-29-2018 Abi Lemus [facility] Stockings Indications: Edema of (25949 ) both lower extremities due to peripheral venous insufficiency Knee High Compression Stockings 15-20 mm, DX: Peripheral venous insufficiency, Bilateral Lower Extremity edema 4 Each 1 12/29/2018 Active Compression Stockings Indications: 12-29-2018 [facility] (47322) Edema of both lower extremities due to peripheral venous insufficiency Knee High Compression Stockings 15-20 mm, DX: Peripheral venous insufficiency, Bilateral Lower Extremity edema 4 Each 1 12/29/2018 Active Compression Stockings Indications: 12-29-2018 Abi Craig [facility] ([id number]) Edema of both lower extremities due to peripheral venous insufficiency Knee High Compression Stockings 15-20 mm, DX: Peripheral venous insufficiency, Bilateral Lower Extremity edema 4 Each 1 12/29/2018 Active Compression Stockings Indications: 12-29-2018 Abi Craig [facility] (43638) Edema of both lower extremities due to peripheral venous insufficiency Knee High Compression Stockings 15-20 mm, DX: Peripheral venous insufficiency, Bilateral Lower Extremity edema 4 Each 1 12/29/2018 Active Compression Stockings Indications: 12-29-2018 Abi Craig [facility] (59139) Edema of both lower extremities due to peripheral venous insufficiency Knee High Compression Stockings 15-20 mm, DX: Peripheral venous insufficiency, Bilateral Lower Extremity edema 4 Each 1 12/29/2018 Active Comment: Knee High Compression Stocki ngs 15-20 mm, DX: Peripheral venous insufficiency, Bilateral Low er Extremity edema docusate sodium (COLACE docusate sodium (COLACE [facility] ([facility] ORAL) ORAL) Take 240 mg by mouth twice daily. 0 Active docusate sodium (COLACE ORAL) Take 240 mg by Ccf Provider [facility] (63269) mouth twice daily. 0 Active docusate sodium (COLACE ORAL) Take 240 mg by C[facility] Provider [facility] (31185) mouth twice daily. 0 Active docusate sodium (COLACE ORAL) Take 240 mg by Ccf Provider [facility] (35791) mouth twice daily. 0 Active docusate sodium (COLACE ORAL) Take 240 mg by [facility] Provider [facility] (63072) mouth twice daily. 0 Active Comment: Take 240 mg by mouth twice d aily. Doxycycline doxycycline monohydrate 10-10-2018 Leslie Noble (Bindery Machine Operator [facility] (MONODOX) 100 mg Battery Tester Field) [facility] ([id number]) capsule Take 1 capsule by mouth twice daily. 20 capsule 0 10/10/2018 Active Comment: Take 1 capsule by mouth twic e daily. fish oil/dha/epa(FISH fish oil/dha/epa(FISH 09-25-2009 [facility] OIL 1,200 MG-144 MG-216 OIL 1,200 MG-144 MG-216 (Hist) [facility] (36833) MG CAP) MG CAP) one capsule every other day 0 09/25/2009 Active fish oil/dha/epa(FISH OIL 09-25-2009 [facility] (Hist) [facility] 1,200 MG-144 MG-216 MG CAP) Brynn (441 95) one capsule every other day 0 09/25/2009 Active fish oil/dha/epa(FISH OIL 09-25-2009 [place] E (Hist) [facility] 1,200 MG-144 MG-216 MG CAP) [facility] (441 [id number]) one capsule every other day 0 09/25/2009 Active fish oil/dha/epa(FISH OIL 09-25-2009 [place] E (Hist) [facility] 1,200 MG-144 MG-216 MG CAP) Brynn (441 95) one capsule every other day 0 09/25/2009 Active fish oil/dha/epa(FISH OIL 09-25-2009 [place] E (Hist) [facility] 1,200 MG-144 MG-216 MG CAP) [place] (441 95) one capsule every other day 0 09/25/2009 Active Comment: one capsule every other day Furosemide furosemide (LASIX) 40 mg 11-14-2019 Adair Rodriguez [facility] (91556) tablet Take 1 tablet by mouth once daily. 0 11/14/2019 Active furosemide (LASIX) 20 12-22-2018 - Sonu Jimenez [facility] mg tablet Indications: 11-14-2019 Toni (99981) Leg swelling Take 0.5 tablets by mouth once daily. 20 tablet 0 12/22/2018 11/14/2019 Discontinued (Dosage adjustment) furosemide (LASIX) 20 07-04-2018 - [facility] mg tablet Indications: 11-14-2019 (55698) Chronic congestive heart failure, unspecified congestive heart failure type Take 1 tablet by mouth twice daily. 180 tablet 3 07/04/2018 11/14/2019 Discontinued (Dosage adjustment) Comment: Take 0.5 tablets by mouth on ce daily. Take 1 tablet by mouth twice daily. Take 1 tablet by mouth once daily. levothyroxine levothyroxine (SYNTHROID) 07-24-2019 [facility] 125 mcg tablet (31060) Indications: Hypothyroidism, acquired Take 1 tablet by mouth once daily. Take on empty stomach. For Thyroid 30 tablet 11 07/24/2019 Active Comment: Take 1 tablet by mouth once daily. Take on empty stomach. For Thyroid Lisinopril lisinopril (ZESTRIL, 04-20-2019 Abi Craig [facility] (92918) PRINIVIL) 10 mg tablet Take 1 tablet by mouth once daily. 30 tablet 11 04/20/2019 Active Comment: Take 1 tablet by mouth once daily. Magnesium Magnesium 250 mg tab 2 05-31-2013 [facility] [place] (65016) tablets in the morning and 2 tablet in the evening 0 05/31/2013 Active Magnesium 250 mg tab 2 tablets in 05-31-2013 [facility] (02803) the morning and 2 tablet in the evening 0 05/31/2013 Active Magnesium 250 mg tab 2 tablets in 05-31-2013 [facility] (33282) the morning and 2 tablet in the evening 0 05/31/2013 Active Magnesium 250 mg tab 2 tablets in 05-31-2013 [facility] (85625) the morning and 2 tablet in the evening 0 05/31/2013 Active Magnesium 250 mg tab 2 tablets in 05-31-2013 [facility] (20231) the morning and 2 tablet in the evening 0 05/31/2013 Active Comment: 2 tablets in the morning and 2 tablet in the evening Melatonin melatonin 10 mg cap Take by mouth. Ccf Pr [facility] (59101) 0 Active Comment: Take by mouth. Metoprolol metoprolol tartrate, short 11-22-2017 [facility] acting, (LOPRESSOR) 25 mg (4 3394) tablet Take 0.5 tablets by mouth twice daily. 90 tablet 3 11/22/2017 Active Comment: Take 0.5 tablets by mouth tw ice daily. Nitroglycerin nitroglycerin sublingual 12-26-2015 Star Perez ([facility] (NITROQUICK) 0.4 mg SL Brynn (4419 5) tablet Dissolve 1 tablet under the tongue as needed. FOR CHEST PAIN. IF NO RELIEF CALL 911 1 Bottle of 25 3 12/26/2015 Active Comment: Dissolve 1 tablet under the tongue as needed. FOR CHEST PAIN. IF NO RELIEF CALL 911 Omeprazole omeprazole (PRILOSEC) 06-09-2020 - [facility] 20 mg capsule Take 1 11-12-2019 (33349) capsule by mouth daily before breakfast. 1/2 hr before meal. 90 capsule 3 11/12/2019 Active Comment: Take 1 capsule by mouth johan y before breakfast. 1/2 hr before meal. Spironolactone spironolactone 06-08-2018 - Abi Craig [facility] (ALDACTONE) 25 mg 11-12-2019 (11389) tablet Take 1 tablet by mouth twice daily. 60 tablet 5 06/08/2018 11/12/2019 Discontinued (Course of therapy completed) Comment: Take 1 tablet by mouth twice daily. therapeutic therapeutic 12-18-2009 [facility] multivitamin ORAL multivitamin ORAL (4419 5) tablet tablet Take one(1) tablet daily. 0 12/18/2009 Active therapeutic multivitamin ORAL 12-18-2009 [facility] (62919) tablet Take one(1) tablet daily. 0 12/18/2009 Active therapeutic multivitamin ORAL 12-18-2009 [facility] (35896) tablet Take one(1) tablet daily. 0 12/18/2009 Active therapeutic multivitamin ORAL 12-18-2009 [facility] (59520) tablet Take one(1) tablet daily. 0 12/18/2009 Active therapeutic multivitamin ORAL 12-18-2009 [facility] (12411) tablet Take one(1) tablet daily. 0 12/18/2009 Active Comment: Take one(1) tablet daily. tiZANidine tiZANidine (ZANAFLEX) 4 11-12-2019 [facility] (31658) mg tablet Take 1 tablet by mouth every 8 hours as needed (muscle spasms). 90 tablet 2 11/12/2019 Active Comment: Take 1 tablet by mouth every 8 hours as needed (muscle spasms). traMADol traMADol (ULTRAM) 50 mg 09-24-2019 - [facility] tablet Indications: DDD 12-17-2019 (441 95) (degenerative disc disease), lumbar Take 1 tablet by mouth every 8 hours as needed for Pain for up to 30 days. Do not start before November 17, 2019. 60 tablet 0 11/17/2019 12/17/2019 Active Comment: Take 1 tablet by mouth every 8 hours as needed for Pain for up to 30 days. Take 1 tablet by mouth every 8 hours as needed for Pain for up to 30 days. Do not start before November 17, 2019. 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 (44 195) Cardiac dysrhythmias Paroxysmal atrial Active 03-02-2016 - [facility] fibrillation [facility] (92272) Chronic kidney disease Chronic kidney disease Active 07-13-19 18 [facility] stage 3 (22057) Congestive heart Chronic congestive heart Active 03-03-2015 [facility] failure; nonhypertensive failure (44 195) Coronary atherosclerosis Atherosclerotic heart Active 015 - [facility] and other heart disease disease of [facility] coronary artery without (000 00) angina pectoris Deficiency and other Iron deficiency anemia Active 07-06-2017 [facility] anemia due to blood loss (14207) Disorders of lipid Hyperlipidemia Active 07-26-2005 [facility] metabolism (35354) Esophageal disorders Gastro-esophageal reflux Active 02-12-20 16 [facility] disease with esophagitis (44 195) Essential hypertension Benign essential Active 07-26-2005 - [facility] hypertension (04841) Gastroduodenal ulcer Peptic ulcer Active 12-18-2009 - [facility] (except hemorrhage) (93829) Heart valve disorders Presence of prosthetic Active 7 [facility] heart valve [facility] (19038) Other and ill-defined Takotsubo cardiomyopathy Active 018 - [facility] heart disease (51525) Other non-traumatic Inflammation of joint of Active 6 - [facility] joint disorders both hands (68233) Residual codes; Requires vaccination Active [facility] unclassified (71720) Spondylosis; Degeneration of lumbar Active [facility] intervertebral disc intervertebral disc ( 63311) disorders; other back problems Thyroid disorders Acquired hypothyroidism Active 07-12-2017 - [facility] (57016) Unclassified Unknown / UNK(Unknown) Active 10-08-2014 - [facility] (62510) Past or Other Problems Category Problem Name Status Date Location Deficiency and other Anemia Completed 06-28-2016 - [facility] anemia (72564) Diabetes mellitus Impaired fasting Completed 03-04-2015 - [facility] without complication glycaemia (47306) Other aftercare Long-term current use Completed 08-31-2016 - [facility] of anticoagulant (87242) Residual codes; Other specified health [facility] (51415) Results Result Name Value Range Unit Interpretation Flag Date Location cnpn on 2019-11-14 CNPN Telephone (FAMPWS) Normal 11-14-2019 [facility] GALILEO HUSTON ([id number]) 1935 F NFR [facility] Time Provider Department (60347) 11/14/19 ADAIR RODRIGUEZ III During your visit today, we recorded the following informati on about you: Mira Mckenzie RN 11/14/2019 2:29 PM Signed Patient received instructions from Cardiology/ Dr. Mason/Jonny Park CNP. Patient will see Eusebia in two weeks and is aware to decrease Lasix to 40 mg once daily in am. Asking for clarification of when kidney function panel shoul d be rechecked again? Please review and advise. Patient is aware PCP is out today and will address tomorrow. JUAN Mccloud III MD 11/15/2019 1:13 PM Signed recheck BMP 1 mo--order entered KERWIN Lee MD, CMA, MA 11/15/2019 1:39 PM Signed Patient notified, voiced understanding. Pricila Stern CMA Allergies As of Date: 11/14/2019 Noted Allergy Reaction bandaids [Other] 09/30/2005 LIPITOR (ATORVASTATIN CALCIUM) 07/22/2016 17 - Myalgia LYRICA (PREGABALIN) 11/30/2010 1 - Mental Status Change NIACIN 11/30/2010 14 - Other: See Comments Comments: myalgia ZOCOR (SIMVASTATIN) 08/09/2011 14 - Other: See Comments Comments: myalgia Date Reviewed: 11/12/2019 Reviewed by: Pricila ([facility]) ANGELES Stern - Fully Assessed Reason for Visit: lab clarification [Other] Order(s):apixaban (ELIQUIS) 5 mg tab(s)Take 0.5 tablets by m outh twice daily.Disp: 180 tabletRfl: 3 Prescriptions as of 11/14/2019 Sig: APIXABAN 5 MG TABLET Take 0.5 tablets by mouth twi* FUROSEMIDE 40 MG TABLET Take 1 tablet by mouth once d* OMEPRAZOLE 20 MG CAPSULE,MANUEL* Take 1 capsule by mouth daily * TRAMADOL 50 MG TABLET Take 1 tablet by mouth every * TIZANIDINE 4 MG TABLET Take 1 tablet by mouth every * LEVOTHYROXINE 125 MCG TABLET Take 1 tablet by mouth once d* LISINOPRIL 10 MG TABLET Take 1 tablet by mouth once d* COMPOUNDED PRESCRIPTION Knee High Compression Stockin* DOXYCYCLINE MONOHYDRATE 100 M* Take 1 capsule by mouth twice * Patient not taking: Reported on 12/22/2018 CHOLESTYRAMINE (WITH SUGAR) 4* Take 4 g by mouth three times * Patient not taking: Reported on 10/10/2018 AMLODIPINE 5 MG TABLET Take 1 tablet by mouth once d* METOPROLOL TARTRATE 25 MG TAB* Take 0.5 tablets by mouth twi * COLACE ORAL Take 240 mg by mouth twice da* AMIODARONE 200 MG TABLET Take 1 tablet by mouth once d* CLOPIDOGREL 75 MG TABLET Take 1 tablet by mouth once d* MELATONIN 10 MG CAPSULE Take by mouth. CALCIUM CARBONATE 600 MG (1,5* Take 1 tablet by mouth once d * Patient not taking: Reported on 10/10/2018 NITROGLYCERIN 0.4 MG SUBLINGU* Dissolve 1 tablet under the t * MAGNESIUM 250 MG TABLET 2 tablets in the morning and * Patient not taking: Reported on 08/08/2018 * THERAPEUTIC MULTIVITAMIN TABL* Take one(1) tablet daily. * FISH OIL 1,200 MG-144 MG-216 * one capsule every other day Problem List As Of Date 11/14/2019 Noted Resolved Essential hypertension, benign [I10] 07/26/2005 More... 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 More... Sciatica [M54.30] 08/29/2006 03/02/2016 PUD (peptic ulcer disease) [K27.9] 12/18/2009 Mild cognitive impairment with memory loss [G31*07/03/2012 0 07/26/2017 Class 3 severe obesity due to excess calories w*07/03/2012 0 08/08/2018 Magnesium deficiency [E61.2] 12/03/2013 03/02/2016 ASHD (arteriosclerotic heart disease) [I25.10] 10/08/2014 Acute myocardial infarction (HCC) [I21.9] 10/08/2014 Moderate aortic stenosis [I35.0] 11/25/2014 08/08/2018 Moderate aortic valve insufficiency [I35.1] 11/25/201408/08 Arthritis of both hands [M19.041, M19.042] 03/03/2015 Chronic congestive heart failure (HCC) [I50.9] 03/03/2015 Impaired fasting glucose [R73.01] 03/04/2015 Gastroesophageal reflux disease with esophagiti*02/12/2016 History of aortic valve replacement [Z95.2] 03/02/2016 More... 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 Atrial fibrillation (HCC) [I48.91] 03/02/2016 More... 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 Cosign required by ADAIR RODRIGUEZ III[[id number]] Medications Discontinued During This Encounter Prescriptions - apixaban (ELIQUIS) 5 mg tab(s) (Discontinued) Take 1 tablet by mouth twice daily. Encounter Status:Closed by PRICILA STERN CMA on 11/15/19 EWAN Telephone (FAMPWS) Normal 11-14-2019 [place] [facility] GALILEO HUSTON ([id number]) 1935 F [facility] Date Time Provider Department ([id number]) 11/14/19 [facility] During your visit today, we recorded the following informati on about you: Mira Mckenzie RN 11/14/2019 8:47 AM Signed Patient was reviewing her medication lis t and discovered that Lasix was listed twice. She thought that PCP was going to reach o ut to meat processor, Dr. Mason to determine which dose of Lasix she is taking. States she is currently taking 40 mg twice a day and that PCP was concerned this was too much and could be decreasing her kidney function. Patient admits not seeing Isabella recently in office and nurse encouraged regular follow up with her cardi ologist. Patient will call meat processor now, to clarify what do se Lasix she should be taking and also schedule appointment and inquire about checking labs as well. Patient agreeable to call back to PCP office wit h update on her Lasix dosing. Mira Rodriguez III MD 11/14/2019 9:[address] Mason office: I discussed the GFR 29 with Eusebia Park CNP-- He stated he would contact patient to reduce lasix 40 mg qam. Will need to follow renal function--orders placed Adair Berkley Rodriguez III MD Allergies As of Date: 11/14/2019 Noted Allergy Reaction bandaids [Other] 09/30/2005 LIPITOR (ATORVASTATIN CALCIUM) 07/22/2016 17 - Myalgia LYRICA (PREGABALIN) 11/30/2010 1 - Mental Status Change NIACIN 11/30/2010 14 - Other: See Comments Comments: myalgia ZOCOR (SIMVASTATIN) 08/09/2011 14 - Other: See Comments Comments: myalgia Date Reviewed: 11/12/2019 Reviewed by: Pricila ([facility]) ANGELES Stern - Fully Assessed Reason for Visit: medication clarification [Other] Order(s):furosemide (LASIX) 40 mg tabletTake 1 tablet by jovana once daily.Disp: Rfl: Prescriptions as of 11/14/2019 Sig: FUROSEMIDE 40 MG TABLET Take 1 tablet by mouth once d* OMEPRAZOLE 20 MG CAPSULE,MANUEL* Take 1 capsule by mouth daily * TRAMADOL 50 MG TABLET Take 1 tablet by mouth every * TIZANIDINE 4 MG TABLET Take 1 tablet by mouth every * LEVOTHYROXINE 125 MCG TABLET Take 1 tablet by mouth once d* LISINOPRIL 10 MG TABLET Take 1 tablet by mouth once d* COMPOUNDED PRESCRIPTION Knee High Compression Stockin* DOXYCYCLINE MONOHYDRATE 100 M* Take 1 capsule by mouth twice * Patient not taking: Reported on 12/22/2018 CHOLESTYRAMINE (WITH SUGAR) 4* Take 4 g by mouth three times * Patient not taking: Reported on 10/10/2018 AMLODIPINE 5 MG TABLET Take 1 tablet by mouth once d* METOPROLOL TARTRATE 25 MG TAB* Take 0.5 tablets by mouth twi * COLACE ORAL Take 240 mg by mouth twice da* AMIODARONE 200 MG TABLET Take 1 tablet by mouth once d* APIXABAN 5 MG TABLET Take 1 tablet by mouth twice * CLOPIDOGREL 75 MG TABLET Take 1 tablet by mouth once d* MELATONIN 10 MG CAPSULE Take by mouth. CALCIUM CARBONATE 600 MG (1,5* Take 1 tablet by mouth once d * Patient not taking: Reported on 10/10/2018 NITROGLYCERIN 0.4 MG SUBLINGU* Dissolve 1 tablet under the t * MAGNESIUM 250 MG TABLET 2 tablets in the morning and * Patient not taking: Reported on 08/08/2018 * THERAPEUTIC MULTIVITAMIN TABL* Take one(1) tablet daily. * FISH OIL 1,200 MG-144 MG-216 * one capsule every other day Problem List As Of Date 11/14/2019 Noted Resolved Essential hypertension, benign [I10] 07/26/2005 More... 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 More... Sciatica [M54.30] 08/29/2006 03/02/2016 PUD (peptic ulcer disease) [K27.9] 12/18/2009 Mild cognitive impairment with memory loss [G31*07/03/2012 0 07/26/2017 Class 3 severe obesity due to excess calories w*07/03/2012 0 08/08/2018 Magnesium deficiency [E61.2] 12/03/2013 03/02/2016 ASHD (arteriosclerotic heart disease) [I25.10] 10/08/2014 Acute myocardial infarction (HCC) [I21.9] 10/08/2014 Moderate aortic stenosis [I35.0] 11/25/2014 08/08/2018 Moderate aortic valve insufficiency [I35.1] 11/25/201408/08 Arthritis of both hands [M19.041, M19.042] 03/03/2015 Chronic congestive heart failure (HCC) [I50.9] 03/03/2015 Impaired fasting glucose [R73.01] 03/04/2015 Gastroesophageal reflux disease with esophagiti*02/12/2016 History of aortic valve replacement [Z95.2] 03/02/2016 More... 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 Atrial fibrillation (HCC) [I48.91] 03/02/2016 More... 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 Medications Discontinued During This Encounter Prescriptions - furosemide (LASIX) 20 mg tablet (Discontinued) Take 0.5 tablets by mouth once daily. - furosemide (LASIX) 20 mg tablet (Discontinued) Take 40 mg by mouth once daily. Encounter Status:Closed by ADAIR RODRIGUEZ III, MD on 11/14/19 progress on 2019-10 PROGRESS HNO ID: [id number] Normal 11-12-2019 [facility] Author: Adair Rodriguez III [place] ([id number]) Service: ? Author Type: Physician Type: Progress Notes Filed: 11/12/2019 4:29 PM Note Text: SUBJECTIVE: This is a 84 year old female that is here today for medication follow up 1. ch low back pain with episodic tingling in hips and legs, and sometimes into upper back. Needing more tramadol than prescribed, delicia when working bent forward. MRI LS spine 2002 report reviewed: severe deg. disc dis. L4-L5. 2. CHF with ASHD--reviewed cardiology note from November, 9. At that time the patient was on Lasix 40 mg once per day. She states that nurse practitioner roof increased Lasix 40 mg twice per day during and phone conversation several months ago. I do not have access to leena t note. Since then she thinks she may have some easier time breathin g with less dyspnea on exertion. She wonders if she could reduce the Las ix dose to once per day. 3. CK D3?most recent GFR 29. This may be related to the incr eased dose of Lasix. We did discuss rechecking basic metabolic panel fo r assessment of renal function. I do plan to discuss with the cardiology office once results are back No chest pain or cough. No angina. She does get some shortne ss of breath on walking a distance but cannot say that this is worse than it was last year. Current Outpatient Medications on File Prior to Visit Medication Sig - traMADol (ULTRAM) 50 mg tablet Take 1 tablet by mouth ever y 8 hours as needed for Pain for up to 30 days. - levothyroxine (SYNTHROID) 125 mcg tablet Take 1 tablet by mouth once daily. Take on empty stomach. For Thyroid - omeprazole (PRILOSEC) 20 mg capsule Take 1 capsule by mout h daily before breakfast. 1/2 hr before meal. - lisinopril (ZESTRIL, PRINIVIL) 10 mg tablet Take 1 tablet by mouth once daily. - Compression Stockings Knee High Compression Stockings 15-2 0 mm, DX: Peripheral venous insufficiency, Bilateral Lower Extremity e nilton - furosemide (LASIX) 20 mg tablet Take 0.5 tablets by mouth once daily. - doxycycline monohydrate (MONODOX) 100 mg capsule Take 1 ca psule by mouth twice daily. (Patient not taking: Reported on 12/22/2018 ) - furosemide (LASIX) 20 mg tablet Take 1 tablet by mouth twi ce daily. (Patient taking differently: Take 40 mg by mouth once daily. ) - cholestyramine-sucrose (QUESTRAN) 4 gram powder Take 4 g b y mouth three times daily with meals. (Patient not taking: Reported on 09/15 ) - spironolactone (ALDACTONE) 25 mg tablet Take 1 tablet by m outh twice daily. (Patient not taking: Reported on 12/22/2018 ) - amLODIPine (NORVASC) 5 mg tablet Take 1 tablet by mouth on ce daily. - metoprolol tartrate, short acting, (LOPRESSOR) 25 mg table t Take 0.5 tablets by mouth twice daily. - docusate sodium (COLACE ORAL) Take 240 mg by mouth twice d aily. - amiodarone (CORDARONE) 200 mg tablet Take 1 tablet by mout h once daily. - apixaban (ELIQUIS) 5 mg tab(s) Take 1 tablet by mouth twic e daily. - clopidogrel (PLAVIX) 75 mg tablet Take 1 tablet by mouth o nce daily. - melatonin 10 mg cap Take by mouth. - calcium carbonate 600 mg-cholecalciferol 200 units (CALCIU M 600 + D,3,) 600 mg(1,500mg) -200 unit tab Take 1 tablet by mouth once da melani. (Patient not taking: Reported on 10/10/2018 ) - nitroglycerin sublingual (NITROQUICK) 0.4 mg SL tablet Dis solve 1 tablet under the tongue as needed. FOR CHEST PAIN. IF NO RELIEF PATRICE L 911 - Magnesium 250 mg tab 2 tablets in the morning and 2 tablet in the evening (Patient not taking: Reported on 08/08/2018 ) - therapeutic multivitamin ORAL tablet Take one(1) tablet da melani. - fish oil/dha/epa(FISH OIL 1,200 MG-144 MG-216 MG CAP) one capsule every other day No current facility-administered medications on file prior t o visit. PAST MEDICAL HISTORY Diagnosis Date - Acute on chronic combined systolic and diastolic CHF (eric estive heart failure) ([facility]) 07/12/2017 - Atherosclerotic heart disease of [place] coronary artery [facility] angina pectoris - Atrial fibrillation ([facility]) 03/02/2016 following CABG and aortic valve replacement - Cervicitis and endocervicitis - Chronic congestive heart failure ([facility]) 03/03/2015 - CKD (chronic kidney disease) stage 3, GFR 30-59 ml/min ( C) 07/12/2017 - Coronary artery disease - Diverticulosis of colon (without mention of hemorrhage) Diverticulosis - Esophagitis - Heart attack ([facility]) - History of aortic valve replacement 03/02/2016 - Hypertension - Hypothyroidism, acquired 07/12/2017 - Moderate aortic stenosis 11/25/2014 - Moderate aortic valve insufficiency 11/25/2014 - Osteoarthrosis, unspecified whether generalized or localiz ed, other specified sites - Paroxysmal atrial fibrillation ([facility]) - PUD (peptic ulcer disease) 12/18/2009 - S/P CABG x 2 03/02/201601/2016--complicated by atrial fibrillation - Statin intolerance 07/22/2016 - Syncope - Takotsubo cardiomyopathy 02/2018 - Unspecified hemorrhoids without mention of complication Hemorrhoids FAMILY HISTORY Problem Relation Age of Onset - Heart Mother - Diabetes Mother - Alcohol/Drug Father - Thyroid Brother Social History Tobacco Use - Smoking status: Never Smoker - Smokeless tobacco: Never Used Substance Use Topics - Alcohol use: No - Drug use: No BP 100/61 Pulse 91 Resp 16 Wt 84.4 kg (186 lb) BMI 3 6.33 kg/m? OBJECTIVE: APPEARANCE Well appearing, alert, in no acute distress, well -hydrated, well nourished. and Obese NECK Supple, no adenopathy; thyroid symmetric, normal size, no bruits HEART irreg pulse with normal S1 and S2, no murmurs, no gall ops, no JVD appreciated LUNG clear to auscultation BACK: She has a slight forward lean at the waist with standi ng. Mild tenderness in the low LS spine midline. Extension to vertica l and somewhat beyond causes pain localized in the back without ra diation. Limited, painful lateral lean bilaterally EXTREMITIES no lower leg edema bilaterally Lab Results for GALILEO HUSTON ( ) as of 11/12/2019 13:56 Ref. Range 07/27/2019 00:00 Sodium Latest Ref Range: 136 - 145 MEQ/L 141 Potassium Latest Ref Range: 3.5 - 5.1 MEQ/L 4.4 Chloride Latest Ref Range: 98 - 107 MEQ/L 105 Creatinine Latest Ref Range: 0.6 - 1.3 MG/DL 1.80 (A) Glucose Latest Ref Range: 74 - 106 MG/DL 111 (A) Anion Gap Unknown 4 TSH Unknown 1.59 Urea Nitrogen Latest Ref Range: 6 - 20 mg/dL 48 (A) BICARBONATE Unknown 32.0 Calcium Latest Ref Range: 8.8 - 10.5 MG/DL 9.5 GFR Latest Units: mL/MIN 29 GFR AFR AMER Latest Units: mL/MIN 35 ASSESSMENT: degenerative LS disc dis with radiculopathy atrial fib-rate controlled ch anticoagulation CHF-stable CKD 3-decreasing GFR PLAN: increase tramadol 50 mg twice/day as needed for pain may use tizanidine 4 mg three times/day as needed for muscle spasms careful activity with frequent rest same other medications recommended PT-declined BMP-- I will discuss with Dr Mason office re: continuing lasix 40 mg BID or perhaps decreasing to 40 mg daily in light of renal function and improved control of NUÑEZ Adair Rodriguez III MD PDMP w ebsite checked and validated. All prescriptions have been APPROPRIATELY filled. No suspicious activity was identified. 11/12/2019 by Adair Rodriguez III MD cnov on 2019-11-12 CNOV Office Visit (FAMPWS) Normal 11-12-[address] [place] [address] Clinic [facility]UST[facility] ([id number]) 1935 [address] [place] Date Time Provider Department ([id number]) 11/12/19 1:40 PM ADAIR RODRIGUEZ III During your visit today, we recorded the following informati on about you: Pulse Respiration Blood pressure Weight 91/minute 16/minute 100/61 84.4 kg Adair Rodriguez III MD 11/12/2019 4:29 PM Signed SUBJECTIVE: This is a 84 year old female that is here today for medication follow up 1. ch low back pain with epi sodic tingling in hips and legs, and sometimes into upper back. Needing more tramadol than prescribed, delicia when working bent forward. MRI LS spine 2002 report reviewed: severe deg.disc dis. L4-L5. 2. CHF with ASHD--reviewed cardiology note from November,. At that time the patient was on Lasix 40 mg once per day. She states that nurse practitioner roof increased Lasix 40 mg twice per day during and phone conversation several months ago. I do not have access to leena t note. Since then she thinks she may have some easier time breathin g with less dyspnea on exertion. She wonders if she could reduce the Lasix dose to once per day. 3. CK D3?most recent GFR 29. This may be related to the incr eased dose of Lasix. We did discuss rechecking basic m etabolic panel for assessment of renal function. I do plan to discu ss with the cardiology office once results are back No chest pain or cough. No angina. She does get some short ness of breath on walking a distance but cannot say that this is worse than it was last year. Current Outpatient Medications on File Prior to Visit Medication Sig - traMADol (ULTRAM) 50 mg ta blet Take 1 tablet by mouth every 8 hours as needed for Pain for up to 30 days. - levothyroxine (SYNTHROID) 125 mcg tablet Take 1 tablet by mouth once daily. Take on empty stomach. For Thyroid - omeprazole (PRILOSEC) 20 mg capsule Take 1 capsule by mout h daily before breakfast. 1/2 hr before meal. - lisinopril (ZESTRIL, PRINIVIL) 10 mg tablet Take 1 tablet by mouth once daily. - Compression Stockings Knee High Compression Stockings 15-2 0 mm, DX: Peripheral venous insufficiency, Bilateral Lower Extremity e nilton - furosemide (LASIX) 20 mg tablet Take 0.5 tablets by mouth once daily. - doxycycline monohydrate (MONODOX) 100 mg capsule Take 1 ca psule by mouth twice daily. (Patient not taking: Reported on 12/22/2018 ) - furosemide (LASIX) 20 mg tablet Take 1 tablet by mouth twice daily. (Patient taking differently: Take 40 mg by mouth once daily. ) - cholestyramine-sucrose (QU ESTRAN) 4 gram powder Take 4 g by mouth three times daily with meals. (Patient not taking: Reported on 10/10/2018 ) - spironolactone (ALDACTONE) 25 mg tablet Take 1 tablet by mouth twice daily. (Patient not taking: Reported on 12/22/2018 ) - amLODIPine (NORVASC) 5 mg tablet Take 1 tablet by mouth on ce daily. - metoprolol tartrate, short acting, (LO PRESSOR) 25 mg tablet Take 0.5 tablets by mouth twice daily. - docusate sodium (COLACE ORAL) Take 240 mg by mouth twice d aily. - amiodarone (CORDARONE) 200 mg tablet Take 1 tablet by mout h once daily. - apixaban (ELIQUIS) 5 mg tab(s) Take 1 tablet by mouth twic e daily. - clopidogrel (PLAVIX) 75 mg tablet Take 1 tablet by mouth o nce daily. - melatonin 10 mg cap Take by mouth. - calcium carbonate 600 mg-cholecalciferol 200 u nits (CALCIUM 600 + D,3,) 600 mg(1,500mg) -200 unit tab Take 1 tablet by mouth once daily. (Patient not taking: Reported on 10/10/2018 ) - nitroglycerin sublingual (NITROQUICK) 0.4 mg SL tablet Dis solve 1 tablet under the tongue as needed. FOR CHEST PAIN. IF NO RELIEF PATRICE L 911 - Magnesium 250 mg tab 2 tablets in the morning and 2 tabl et in the evening (Patient not taking: Reported on 08/08/2018 ) - therapeutic multivitamin ORAL tablet Take one(1) tablet da melani. - fish oil/dha/epa(FISH OIL 1,200 MG-144 MG-216 MG CAP) one capsule every other day No current facility-administered medications on file prior t o visit. PAST MEDICAL HISTORY Diagnosis Date - Acute on chronic combined systolic and diastolic CHF (eric estive heart failure) ([facility]) 07/12/2017 - Atherosclerotic heart disease of [place] coronary artery [place] angina pectoris - Atrial fibrillation ([facility]) 03/02/2016 following CABG and aortic valve replacement - Cervicitis and endocervicitis - Chronic congestive heart failure ([facility]) 03/03/2015 - CKD (chronic kidney disease) stage 3, GFR 30-59 ml/min (HC C) 07/12/2017 - Coronary artery disease - Diverticulosis of colon (without mention of hemorrhage) Diverticulosis - Esophagitis - Heart attack ([facility]) - History of aortic valve replacement 03/02/2016 - Hypertension - Hypothyroidism, acquired 07/12/2017 - Moderate aortic stenosis 11/25/2014 - Moderate aortic valve insufficiency 11/25/2014 - Osteoarthrosis, unspecifie d whether generalized or localized, other specified sites - Paroxysmal atrial fibrillation ([facility]) - PUD (peptic ulcer disease) 12/18/2009 - S/P CABG x 2 03/02/201601/2016--complicated by atrial fibrillation - Statin intolerance 07/22/2016 - Syncope - Takotsubo cardiomyopathy 02/2018 - Unspecified hemorrhoids without mention of complication Hemorrhoids FAMILY HISTORY Problem Relation Age of Onset - Heart Mother - Diabetes Mother - Alcohol/Drug Father - Thyroid Brother Social History Tobacco Use - Smoking status: Never Smoker - Smokeless tobacco: Never Used Substance Use Topics - Alcohol use: No - Drug use: No BP 100/61 Pulse 91 Resp 16 Wt 84.4 kg (186 lb) BMI 3 6.33 kg/m? OBJECTIVE: APPEARANCE Well appearing, alert, in no acute distress, we ll-hydrated, well nourished. and Obese NECK Supple, no adenopathy; thyroid symmetric, normal size, no bruits HEART irreg pulse with normal S1 and S2, no murmurs, no gall ops, no JVD appreciated LUNG clear to auscultation BACK: She has a slight forward lean at the waist with standi ng. Mild tenderness in the low LS spine midline. Extension to vertica l and somewhat beyond causes pain localized in the back without radia tion. Limited, painful lateral lean bilaterally EXTREMITIES no lower leg edema bilaterally Lab Results for GALILEO HUSTON ( ) as of 11/12/2019 13:56 Ref. Range 07/27/2019 00:00 Sodium Latest Ref Range: 136 - 145 MEQ/L 141 Potassium Latest Ref Range: 3.5 - 5.1 MEQ/L 4.4 Chloride Latest Ref Range: 98 - 107 MEQ/L 105 Creatinine Latest Ref Range: 0.6 - 1.3 MG/DL 1.80 (A) Glucose Latest Ref Range: 74 - 106 MG/DL 111 (A) Anion Gap Unknown 4 TSH Unknown 1.59 Urea Nitrogen Latest Ref Range: 6 - 20 mg/dL 48 (A) BICARBONATE Unknown 32.0 Calcium Latest Ref Range: 8.8 - 10.5 MG/DL 9.5 GFR Latest Units: mL/MIN 29 GFR AFR AMER Latest Units: mL/MIN 35 ASSESSMENT: degenerative LS disc dis with radiculopathy atrial fib-rate controlled ch anticoagulation CHF-stable CKD 3-decreasing GFR PLAN: increase tramadol 50 mg twice/day as needed for pain may use tizanidine 4 mg three times/day as needed for muscle spasms careful activity with frequent rest same other medications recommended PT-declined BMP-- I will discuss with Dr Mason office re: continui ng lasix 40 mg BID or perhaps decreasing to 40 mg daily in light of renal function and improved control of NUÑEZ Adair Rodriguez III MD PDMP website checked and validated. All prescrip tions have been APPROPRIATELY filled. No suspicious activity was ident ified. 11/12/2019 by KERWIN Lee MD, III MD 11/12/2019 2:08 PM Addendum PLAN: increase tramadol 50 mg twice/day as needed for pain may use tizanidine 4 mg three times/day as needed for muscle spasms careful activity with frequent rest same other medications recommended PT-declined BMP-- I will discuss with Dr Mason office re: continui ng lasix 40 mg BID or perhaps decreasing to 40 mg daily in light of renal function and improved control of NUÑEZ Adair Rodriguez III MD Referring Provider: SELF [200] Allergies As of Date: 11/12/2019 Noted Allergy Reaction bandaids [Other] 09/30/2005 LIPITOR (ATORVASTATIN CALCIUM) 07/22/2016 17 - Myalgia LYRICA (PREGABALIN) 11/30/2010 1 - Mental Status Change NIACIN 11/30/2010 14 - Other: See Comments Comments: myalgia ZOCOR (SIMVASTATIN) 08/09/2011 14 - Other: See Comments Comments: myalgia Date Reviewed: 11/12/2019 Reviewed by: Pricila ([facility]) ANGELES Stern - Fully Assessed Reason for Visit: F/U 3 Month [443] Primary Visit Diagnosis:DDD (degenerative disc disease), lum bar [M51.36] Other Visit Diagnoses:Need for vaccination [Z23] Chronic anticoagulation [Z79.01] CKD (chronic kidney disease) stage 3, GFR 30-59 ml/min (HCC) [N18.3] Atrial fibrillation, unspecified type (HCC) [I48.91] Chronic diastolic congestive heart failure (HCC) [I50.32] Order(s):omeprazole (PRILOSEC) 20 mg capsuleTake 1 capsule b y mouth daily before breakfast. 1/2 hr before meal.Disp: 90 capsuleRfl: 3 [START ON 11/17/2019] traMADol (ULTRAM) 50 mg tabletTake 1 ta blet by mouth every 8 hours as needed for Pain for up to 30 days. Do not start before November 17, 2019.Disp: 60 tabletRfl: 0 INFLUENZA SEASONAL QUADRIVALENT HIGH DOSE AGE 65+ [[id number]] Order #: [id number] tiZANidine (ZANAFLEX) 4 mg tabletTake 1 tablet by mouth ever y 8 hours as needed (muscle spasms).Disp: 90 tabletRfl: 2 BASIC METABOLIC PNL [SQBMP] Order #: [id number] Prescriptions as of 11/12/2019 Sig: OMEPRAZOLE 20 MG CAPSULE,MANUEL* Take 1 capsule by mouth daily * TRAMADOL 50 MG TABLET Take 1 tablet by mouth every * LEVOTHYROXINE 125 MCG TABLET Take 1 tablet by mouth once d* LISINOPRIL 10 MG TABLET Take 1 tablet by mouth once d* COMPOUNDED PRESCRIPTION Knee High Compression Stockin* FUROSEMIDE 20 MG TABLET Take 0.5 tablets by mouth onc* FUROSEMIDE 20 MG TABLET Take 1 tablet by mouth twice * Patient taking differently: Take 40 mg by mouth once johan* AMLODIPINE 5 MG TABLET Take 1 tablet by mouth once d* METOPROLOL TARTRATE 25 MG TAB* Take 0.5 tablets by mouth twi * COLACE ORAL Take 240 mg by mouth twice da* AMIODARONE 200 MG TABLET Take 1 tablet by mouth once d* APIXABAN 5 MG TABLET Take 1 tablet by mouth twice * CLOPIDOGREL 75 MG TABLET Take 1 tablet by mouth once d* MELATONIN 10 MG CAPSULE Take by mouth. NITROGLYCERIN 0.4 MG SUBLINGU* Dissolve 1 tablet under the t * * THERAPEUTIC MULTIVITAMIN TABL* Take one(1) tablet daily. * FISH OIL 1,200 MG-144 MG-216 * one capsule every other day TIZANIDINE 4 MG TABLET Take 1 tablet by mouth every * DOXYCYCLINE MONOHYDRATE 100 M* Take 1 capsule by mouth twice * Patient not taking: Reported on 12/22/2018 CHOLESTYRAMINE (WITH SUGAR) 4* Take 4 g by mouth three times * Patient not taking: Reported on 10/10/2018 CALCIUM CARBONATE 600 MG (1,5* Take 1 tablet by mouth once d * Patient not taking: Reported on 10/10/2018 MAGNESIUM 250 MG TABLET 2 tablets in the morning and * Patient not taking: Reported on 08/08/2018 Problem List As Of Date 11/12/2019 Noted Resolved Essential hypertension, benign [I10] 07/26/2005 More... 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 More... Sciatica [M54.30] 08/29/2006 03/02/2016 PUD (peptic ulcer disease) [K27.9] 12/18/2009 Mild cognitive impairment with memory loss [G31*07/03/2012 0 07/26/2017 Class 3 severe obesity due to excess calories w*07/03/2012 0 08/08/2018 Magnesium deficiency [E61.2] 12/03/2013 03/02/2016 ASHD (arteriosclerotic heart disease) [I25.10] 10/08/2014 Acute myocardial infarction (HCC) [I21.9] 10/08/2014 Moderate aortic stenosis [I35.0] 11/25/2014 08/08/2018 Moderate aortic valve insufficiency [I35.1] 11/25/201408/08 Arthritis of both hands [M19.041, M19.042] 03/03/2015 Chronic congestive heart failure (HCC) [I50.9] 03/03/2015 Impaired fasting glucose [R73.01] 03/04/2015 Gastroesophageal reflux disease with esophagiti*02/12/2016 History of aortic valve replacement [Z95.2] 03/02/2016 More... 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 Atrial fibrillation (HCC) [I48.91] 03/02/2016 More... 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*07/12/2017 0 08/08/2018 Hypothyroidism, acquired [E03.9] 07/12/2017 CKD (chronic kidney disease) stage 3, GFR 30-59*07/12/2017 Chronic anxiety [F41.9] 11/09/2017 Other instructions from your clinician: PLAN: increase tramadol 50 mg twice/day as needed for pain may use tizanidine 4 mg three times/day as needed for muscle spasms careful activity with frequent rest same other medications recommended PT-declined BMP-- I will discuss with Dr Mason office re: continuing lasix 40 mg BID or perhaps decreasing to 40 mg daily in light of renal function and improved control of NUÑEZ Adair Rodriguez III MD Prescriptions ordered this encounter Disp Refills Start End OMEPRAZOLE 20 MG CAPSULE,DELAYED REL* 90 c* 3 11/12/2019 Route: ORAL Sig: Take 1 capsule by mouth daily before breakfast. 1/2 hr before meal. TRAMADOL 50 MG TABLET 60 t* 0 11/17/2019 12/17/2019 Route: ORAL Sig: Take 1 tablet by mouth every 8 hours as needed for Pain for up to 30 days. Do not start before November 17, 2019. TIZANIDINE 4 MG TABLET 90 t* 2 11/12/2019 Route: ORAL Sig: Take 1 tablet by mouth every 8 hours as needed (muscle spasms). Medications Discontinued During This Encounter Prescriptions - omeprazole (PRILOSEC) 20 mg capsule (Discontinued) Take 1 capsule by mouth daily before breakfast. 1/2 hr befor e meal. - traMADol (ULTRAM) 50 mg tablet (Discontinued) Take 1 tablet by mouth every 8 hours as needed for Pain for up to 30 days. - spironolactone (ALDACTONE) 25 mg tablet (Discontinued) Reported on 12/22/2018 Encounter Status:Closed by ADAIR RODRIGUEZ III, MD on 11/12/19 obsolete on 2019-10 OBSOLETE Refill (FAMPWS) Normal 10-18-2019 [facility] BETZAIDAGALILEO N ([id number]) 1935 [address] [facility] Time Provider Department ([id number]) 10/18/19 ADAIR RODRIGUEZ IIIWS During your visit today, we recorded the following informati on about you: Vaishnavi Pastor RN 10/18/2019 11:50 AM Signed Patient phones requesting refills as follows: Pending Prescriptions Disp Refills TRAMADOL 50 MG TABLET 45 tablet 0 Sig: Take 1 tablet by mouth every 8 hours as needed for Pain for up to 30 days. RADHA Class: C-IV COSME: No Verified pharmacy Last office visit 05-29-2019 Please review and advise. Vaishnavi Rodriguez III MD 10/18/2019 12:27 PM Signed PDMP website checked and validated. All prescrip tions have been APPROPRIATELY filled. No suspicious activity was identified. by Adair Rodriguez III MD Allergies As of Date: 10/18/2019 Noted Allergy Reaction bandaids [Other] 09/30/2005 LIPITOR (ATORVASTATIN CALCIUM) 07/22/2016 17 - Myalgia LYRICA (PREGABALIN) 11/30/2010 1 - Mental Status Change NIACIN 11/30/2010 14 - Other: See Comments Comments: myalgia ZOCOR (SIMVASTATIN) 08/09/2011 14 - Other: See Comments Comments: myalgia Date Reviewed: 12/29/2018 Reviewed by: Heriberto Moncada LPN - Fully Assessed Reason for Visit: Refill Request [94] Visit Diagnosis:DDD (degenerative disc disease), lumbar [M51 .36] Order(s):traMADol (ULTRAM) 50 mg tabletT omar 1 tablet by mouth every 8 hours as needed for Pain for up to 30 days.Disp: 45 tabletRfl: 0 Prescriptions as of 10/18/2019 Sig: TRAMADOL 50 MG TABLET Take 1 tablet by mouth every * LEVOTHYROXINE 125 MCG TABLET Take 1 tablet by mouth once d* OMEPRAZOLE 20 MG CAPSULE,MANUEL* Take 1 capsule by mouth daily * LISINOPRIL 10 MG TABLET Take 1 tablet by mouth once d* COMPOUNDED PRESCRIPTION Knee High Compression Stockin* FUROSEMIDE 20 MG TABLET Take 0.5 tablets by mouth onc* DOXYCYCLINE MONOHYDRATE 100 M* Take 1 capsule by mouth twice * Patient not taking: Reported on 12/22/2018 FUROSEMIDE 20 MG TABLET Take 1 tablet by mouth twice * Patient taking differently: Take 40 mg by mouth once johan* CHOLESTYRAMINE (WITH SUGAR) 4* Take 4 g by mouth three times * Patient not taking: Reported on 10/10/2018 SPIRONOLACTONE 25 MG TABLET Take 1 tablet by mouth twice * Patient not taking: Reported on 12/22/2018 AMLODIPINE 5 MG TABLET Take 1 tablet by mouth once d* METOPROLOL TARTRATE 25 MG TAB* Take 0.5 tablets by mouth twi * COLACE ORAL Take 240 mg by mouth twice da* AMIODARONE 200 MG TABLET Take 1 tablet by mouth once d* APIXABAN 5 MG TABLET Take 1 tablet by mouth twice * CLOPIDOGREL 75 MG TABLET Take 1 tablet by mouth once d* MELATONIN 10 MG CAPSULE Take by mouth. CALCIUM CARBONATE 600 MG (1,5* Take 1 tablet by mouth once d * Patient not taking: Reported on 10/10/2018 NITROGLYCERIN 0.4 MG SUBLINGU* Dissolve 1 tablet under the t * MAGNESIUM 250 MG TABLET 2 tablets in the morning and * Patient not taking: Reported on 08/08/2018 * THERAPEUTIC MULTIVITAMIN TABL* Take one(1) tablet daily. * FISH OIL 1,200 MG-144 MG-216 * one capsule every other day Problem List As Of Date 10/18/2019 Noted Resolved Essential hypertension, benign [I10] 07/26/2005 More... 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 More... Sciatica [M54.30] 08/29/2006 03/02/2016 PUD (peptic ulcer disease) [K27.9] 12/18/2009 Mild cognitive impairment with memory loss [G31*07/03/2012 0 07/26/2017 Class 3 severe obesity due to excess calories w*07/03/2012 0 08/08/2018 Magnesium deficiency [E61.2] 12/03/2013 03/02/2016 ASHD (arteriosclerotic heart disease) [I25.10] 10/08/2014 Acute myocardial infarction (HCC) [I21.9] 10/08/2014 Moderate aortic stenosis [I35.0] 11/25/2014 08/08/2018 Moderate aortic valve insufficiency [I35.1] 11/25/201408/08 Arthritis of both hands [M19.041, M19.042] 03/03/2015 Chronic congestive heart failure (HCC) [I50.9] 03/03/2015 Impaired fasting glucose [R73.01] 03/04/2015 Gastroesophageal reflux disease with esophagiti*02/12/2016 History of aortic valve replacement [Z95.2] 03/02/2016 More... 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 Atrial fibrillation (HCC) [I48.91] 03/02/2016 More... 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 Medications Discontinued During This Encounter Prescriptions - traMADol (ULTRAM) 50 mg tablet (Discontinued) Take 1 tablet by mouth every 8 hours as needed for Pain for up to 30 days. Encounter Status:Closed by CHRISTOS REAL on 10/18/19 progress on 2019-09 PROGRESS HNO ID: [id number] Normal 09-27-2019 [facility] Author: Kin Cuello (Rn) ([id number]) Service: ? Author Type: Registered Nurse Type: Progress Notes Filed: 09/27/2019 2:48 PM Note Text: HIGH RISK CHRONIC DISEASE MONITORING Provider Action/FYI: LVM Routine follow-up Contact made with patient: No - Left message - Hi my name is Khushboo Sanderson RN and I am calling from the [facility] on b ehalf of your PCP, Adair Rodriguez III MD Because of the COVID-19 outbreak, we were calling to help make sure you are feeling well and have what you need to manage your well-being. ?I wanted to let you know that this will be our last call to gether. When we first started talking a couple of months back, it was wit h the goal to check on your well-being during the COVID crisis. You have d one an outstanding job working with us to manage your health. I hav e no doubt you will continue to take good care of yourself and reach out to your primary care provider's office should you have any health care needs . A few important reasons to reach out to your PCP's office include: ? Schedule your annual visit or routine follow up with your PCP. It is so important to let your provider know how you're doing and lucas e care of routine health maintenance items. ? Request a medication refill or renewal before you run out! ? Inform them of any concerns. Your provider can work with y ou to identify the care needed. You just have to let them know. You may contact your physician by calling his/her office dir ectly or by using Surround App to connect virtually. Thank you so much for your time today. It has been our pleas ure to work with you over these past couple of months. We are creating n ew programs at the [facility] that you may be eligible for, so you may be contacted in the future. Until then, be well!? Outreach Ended. Khushboo Sanderson RN September 27, 2019 2:47 PM cnptoutreach on CNPTOUTREACH Patient Outreach (FAMPWS) Normal 0 09-27-2019 [place] [facility] BETZAIDAGALILEO Aide ([id number]) 1935 F NFR [place] Date Time Provider Department ([id number]) 09/27/19 KIN CUELLO (RN) FAMPWS During your visit today, we recorded the following informati on about you: Khushboo Sanderson RN 09/27/2019 2:48 PM Signed HIGH RISK CHRONIC DISEASE MONITORING Provider Action/FYI: LVM Routine follow-up Contact made with patient: No - Left message - Hi my name is Khushboo Sanderson RN and I am calling from the [facility] on behalf of your PCP, Adair Rodriguez III MD Because of the COVID-19 outbreak, we w ere calling to help make sure you are feeling well and have what you need t o manage your well-being. ?I wanted to let you know that this will be our last call together. When we first started talking a coup le of months back, it was with the goal to check on your well-being during the COVID crisis. You have done an ou tstanding job working with us to manage your health. I have no doubt you will continue to take good care of yourself a nd reach out to your primary care provider's office should you have any health care needs. A few important reasons to reach out to your PCP's office include: ? Schedule your annual visit or routine follow up with your PCP. It is so important to let your provider know how you're d oing and take care of routine health maintenance items. ? Request a medication refill or renewal before you run out! ? Inform them of any concerns. Your prov ider can work with you to identify the care needed. You just have to let them know. You may contact your physician by calling his/he r office directly or by using Surround App to connect virtually. Thank you so much for your time today. It has been our pleasure to work with you over these past couple of months. We are creating new pr ograms at the [facility] that you may be eligible for, s o you may be contacted in the future. Until then, be well!? Outreach Ended. Khushboo Sanderson RN September 27, 2019 2:47 PM Allergies As of Date: 09/27/2019 Noted Allergy Reaction bandaids [Other] 09/30/2005 LIPITOR (ATORVASTATIN CALCIUM) 07/22/2016 17 - Myalgia LYRICA (PREGABALIN) 11/30/2010 1 - Mental Status Change NIACIN 11/30/2010 14 - Other: See Comments Comments: myalgia ZOCOR (SIMVASTATIN) 08/09/2011 14 - Other: See Comments Comments: myalgia Date Reviewed: 12/29/2018 Reviewed by: Heriberto Moncada LPN - Fully Assessed Reason for Visit: Community Monitoring Outreach [Other] Cmt: Outreach 11 Reason For Visit History Recorded Prescriptions as of 09/27/2019 Sig: TRAMADOL 50 MG TABLET Take 1 tablet by mouth every * LEVOTHYROXINE 125 MCG TABLET Take 1 tablet by mouth once d* OMEPRAZOLE 20 MG CAPSULE,MANUEL* Take 1 capsule by mouth daily * LISINOPRIL 10 MG TABLET Take 1 tablet by mouth once d* COMPOUNDED PRESCRIPTION Knee High Compression Stockin* FUROSEMIDE 20 MG TABLET Take 0.5 tablets by mouth onc* DOXYCYCLINE MONOHYDRATE 100 M* Take 1 capsule by mouth twice * Patient not taking: Reported on 12/22/2018 FUROSEMIDE 20 MG TABLET Take 1 tablet by mouth twice * Patient taking differently: Take 40 mg by mouth once johan* CHOLESTYRAMINE (WITH SUGAR) 4* Take 4 g by mouth three times * Patient not taking: Reported on 10/10/2018 SPIRONOLACTONE 25 MG TABLET Take 1 tablet by mouth twice * Patient not taking: Reported on 12/22/2018 AMLODIPINE 5 MG TABLET Take 1 tablet by mouth once d* METOPROLOL TARTRATE 25 MG TAB* Take 0.5 tablets by mouth twi * COLACE ORAL Take 240 mg by mouth twice da* AMIODARONE 200 MG TABLET Take 1 tablet by mouth once d* APIXABAN 5 MG TABLET Take 1 tablet by mouth twice * CLOPIDOGREL 75 MG TABLET Take 1 tablet by mouth once d* MELATONIN 10 MG CAPSULE Take by mouth. CALCIUM CARBONATE 600 MG (1,5* Take 1 tablet by mouth once d * Patient not taking: Reported on 10/10/2018 NITROGLYCERIN 0.4 MG SUBLINGU* Dissolve 1 tablet under the t * MAGNESIUM 250 MG TABLET 2 tablets in the morning and * Patient not taking: Reported on 08/08/2018 * THERAPEUTIC MULTIVITAMIN TABL* Take one(1) tablet daily. * FISH OIL 1,200 MG-144 MG-216 * one capsule every other day Problem List As Of Date 09/27/2019 Noted Resolved Essential hypertension, benign [I10] 07/26/2005 More... 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 More... Sciatica [M54.30] 08/29/2006 03/02/2016 PUD (peptic ulcer disease) [K27.9] 12/18/2009 Mild cognitive impairment with memory loss [G31*07/03/2012 0 07/26/2017 Class 3 severe obesity due to excess calories w*07/03/2012 0 08/08/2018 Magnesium deficiency [E61.2] 12/03/2013 03/02/2016 ASHD (arteriosclerotic heart disease) [I25.10] 10/08/2014 Acute myocardial infarction (HCC) [I21.9] 10/08/2014 Moderate aortic stenosis [I35.0] 11/25/2014 08/08/2018 Moderate aortic valve insufficiency [I35.1] 11/25/201408/08 Arthritis of both hands [M19.041, M19.042] 03/03/2015 Chronic congestive heart failure (HCC) [I50.9] 03/03/2015 Impaired fasting glucose [R73.01] 03/04/2015 Gastroesophageal reflux disease with esophagiti*02/12/2016 History of aortic valve replacement [Z95.2] 03/02/2016 More... 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 Atrial fibrillation (HCC) [I48.91] 03/02/2016 More... 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*07/12/2017 0 08/08/2018 Hypothyroidism, acquired [E03.9] 07/12/2017 CKD (chronic kidney disease) stage 3, GFR 30-59*07/12/2017 Chronic anxiety [F41.9] 11/09/2017 Encounter Status:Closed by KHUSHBOO SANDERSON on 09/27/19 obsolete on 2019-09 OBSOLETE Refill (FAMPWS) Normal 09-24-2019 [facility] GALILEO HUSTON ([id number]) 1935 [facility] Time Provider Department ([id number]) 09/24/19 ADAIR RODRIGUEZ III FAMPWS During your visit today, we recorded the following informati on about you: Margie Dotson Pss 09/24/2019 8:44 AM Signed Patient has been identified by name and date of : Yes Pending Prescriptions Disp Refills TRAMADOL 50 MG TABLET 90 tablet 0 Sig: Take 1 tablet by mouth every 8 hours as needed for Pain for up to 30 days. RADHA Class: C-IV COSME: No RX INSTRUCTIONS: Patient is out of the medication and aski ng if this can be approved and sent by 12PM today, she is going to [facility]. Patient aware RX will be sen t to pharmacy. Please call as soon as this is sent. Margie Chassell Pss Ardian Quintana MD 09/24/2019 10:42 AM Signed OK to refill for two weeks, until Dr Rodriguez is back It is not clear why she was increased form twice daily to three times daily MD Liyah Zuniga Ma 09/24/2019 11:10 AM Signed Pt notified via identified VM. The following approved medic ation requests have been transmitted electronically. Signed Prescriptions Disp Refills traMADol (ULTRAM) 50 mg tablet 45 tablet 0 Sig: Take 1 tablet by mouth every 8 hours as needed for Pain for up to 30 days. RADHA Class: C-IV COSME: No Authorizing Provider: ADRIAN QUINTANA Ma Allergies As of Date: 09/24/2019 Noted Allergy Reaction bandaids [Other] 09/30/2005 LIPITOR (ATORVASTATIN CALCIUM) 07/22/2016 17 - Myalgia LYRICA (PREGABALIN) 11/30/2010 1 - Mental Status Change NIACIN 11/30/2010 14 - Other: See Comments Comments: myalgia ZOCOR (SIMVASTATIN) 08/09/2011 14 - Other: See Comments Comments: myalgia Date Reviewed: 12/29/2018 Reviewed by: Heriberto Moncada LPN - Fully Assessed Reason for Visit: Refill Request [94] Visit Diagnosis:DDD (degenerative disc disease), lumbar [M51 .36] Order(s):traMADol (ULTRAM) 50 mg tabletT omar 1 tablet by mouth every 8 hours as needed for Pain for up to 30 days.Disp: 45 tabletRfl: 0 Prescriptions as of 09/24/2019 Sig: TRAMADOL 50 MG TABLET Take 1 tablet by mouth every * LEVOTHYROXINE 125 MCG TABLET Take 1 tablet by mouth once d* OMEPRAZOLE 20 MG CAPSULE,MANUEL* Take 1 capsule by mouth daily * LISINOPRIL 10 MG TABLET Take 1 tablet by mouth once d* COMPOUNDED PRESCRIPTION Knee High Compression Stockin* FUROSEMIDE 20 MG TABLET Take 0.5 tablets by mouth onc* DOXYCYCLINE MONOHYDRATE 100 M* Take 1 capsule by mouth twice * Patient not taking: Reported on 12/22/2018 FUROSEMIDE 20 MG TABLET Take 1 tablet by mouth twice * Patient taking differently: Take 40 mg by mouth once johan* CHOLESTYRAMINE (WITH SUGAR) 4* Take 4 g by mouth three times * Patient not taking: Reported on 10/10/2018 SPIRONOLACTONE 25 MG TABLET Take 1 tablet by mouth twice * Patient not taking: Reported on 12/22/2018 AMLODIPINE 5 MG TABLET Take 1 tablet by mouth once d* METOPROLOL TARTRATE 25 MG TAB* Take 0.5 tablets by mouth twi * COLACE ORAL Take 240 mg by mouth twice da* AMIODARONE 200 MG TABLET Take 1 tablet by mouth once d* APIXABAN 5 MG TABLET Take 1 tablet by mouth twice * CLOPIDOGREL 75 MG TABLET Take 1 tablet by mouth once d* MELATONIN 10 MG CAPSULE Take by mouth. CALCIUM CARBONATE 600 MG (1,5* Take 1 tablet by mouth once d * Patient not taking: Reported on 10/10/2018 NITROGLYCERIN 0.4 MG SUBLINGU* Dissolve 1 tablet under the t * MAGNESIUM 250 MG TABLET 2 tablets in the morning and * Patient not taking: Reported on 08/08/2018 * THERAPEUTIC MULTIVITAMIN TABL* Take one(1) tablet daily. * FISH OIL 1,200 MG-144 MG-216 * one capsule every other day Problem List As Of Date 09/24/2019 Noted Resolved Essential hypertension, benign [I10] 07/26/2005 More... 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 More... Sciatica [M54.30] 08/29/2006 03/02/2016 PUD (peptic ulcer disease) [K27.9] 12/18/2009 Mild cognitive impairment with memory loss [G31*07/03/2012 0 07/26/2017 Class 3 severe obesity due to excess calories w*07/03/2012 0 08/08/2018 Magnesium deficiency [E61.2] 12/03/2013 03/02/2016 ASHD (arteriosclerotic heart disease) [I25.10] 10/08/2014 Acute myocardial infarction (HCC) [I21.9] 10/08/2014 Moderate aortic stenosis [I35.0] 11/25/2014 08/08/2018 Moderate aortic valve insufficiency [I35.1] 11/25/201408/08 Arthritis of both hands [M19.041, M19.042] 03/03/2015 Chronic congestive heart failure (HCC) [I50.9] 03/03/2015 Impaired fasting glucose [R73.01] 03/04/2015 Gastroesophageal reflux disease with esophagiti*02/12/2016 History of aortic valve replacement [Z95.2] 03/02/2016 More... 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 Atrial fibrillation (HCC) [I48.91] 03/02/2016 More... 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 Medications Discontinued During This Encounter Prescriptions - traMADol (ULTRAM) 50 mg tablet (Discontinued) Take 1 tablet by mouth every 8 hours as needed for Pain for up to 30 days. Encounter Status:Closed by LIYAH SINGER MA on 09/24/19 progress on 2019-08 PROGRESS HNO ID: [id number] Normal 09-13-2019 [facility] Author: Kin Cuello (Rn) [place] ([id number]) Service: ? Author Type: Registered Nurse Type: Progress Notes Filed: 09/13/2019 4:30 PM Note Text: HIGH RISK CHRONIC DISEASE MONITORING Provider Action/FYI: Lvm, outreach in 2 weeks Routine follow-up Contact made with patient: No - Left message - Hi my name is Khushboo Sanderson RN and I am calling from the [facility] on b ehalf of your PCP, Adair Rodriguez III MD Because of the COVID-19 outbreak, we were calling to help make sure you are feeling well and have what you need to manage your well-being. If you'd like to call us back to ga ck in, you can reach us at during business hours Tuesday- Tuesday 8:00AM-4:30PM. If not, we will call you next week. If you vieira ve an urgent need, please contact your PCP's office. Thank you. Entered n ext patient outreach date for the following week on the same business da y of the week using Track Pt Outreach. End outreach. Outreach ended Khushboo Sanderson RN September 13, 2019 4:29 PM cnptoutreach on CNPTOUTREACH Patient Outreach (FAMPWS) Normal 0 09-13-2019 [place] [facility] GALILEO HUSTON ([id number]) 1935 F R [facility] Time Provider Department ([id number]) 09/13/19 KIN CUELLO (RN) FAMPWS During your visit today, we recorded the following informati on about you: Khushboo Sanderson RN 09/13/2019 4:30 PM Signed HIGH RISK CHRONIC DISEASE MONITORING Provider Action/FYI: Lvm, outreach in 2 weeks Routine follow-up Contact made with patient: No - Left message - Hi my name is Khushboo Sanderson RN and I am calling from the [facility] on behalf of your PCP, Adair Rodriguez III MD Because of the COVID-19 outbreak, we w ere calling to help make sure you are feeling well and have what you need t o manage your well-being. If you'd like to call us back to check in, you c an reach us at during business hours Tuesday-Tuesday 8:0 0AM-4:30PM. If not, we will call you next week. If you have an urgent need, please contact your PCP's office. Thank you. Entered next patient outreach date for the following week on the same business day of the week using Track Pt Mathew padron End outreach. Outreach ended Khushboo Sanderson RN September 13, 2019 4:29 PM Allergies As of Date: 09/13/2019 Noted Allergy Reaction bandaids [Other] 09/30/2005 LIPITOR (ATORVASTATIN CALCIUM) 07/22/2016 17 - Myalgia LYRICA (PREGABALIN) 11/30/2010 1 - Mental Status Change NIACIN 11/30/2010 14 - Other: See Comments Comments: myalgia ZOCOR (SIMVASTATIN) 08/09/2011 14 - Other: See Comments Comments: myalgia Date Reviewed: 12/29/2018 Reviewed by: Heriberto Moncada LPN - Fully Assessed Reason for Visit: Community Monitoring Outreach [Other] Cmt: Outreach 10 Prescriptions as of 09/13/2019 Sig: TRAMADOL 50 MG TABLET Take 1 tablet by mouth every * LORAZEPAM 0.5 MG TABLET Take 1 tablet by mouth twice * LEVOTHYROXINE 125 MCG TABLET Take 1 tablet by mouth once d* OMEPRAZOLE 20 MG CAPSULE,MANUEL* Take 1 capsule by mouth daily * LISINOPRIL 10 MG TABLET Take 1 tablet by mouth once d* COMPOUNDED PRESCRIPTION Knee High Compression Stockin* FUROSEMIDE 20 MG TABLET Take 0.5 tablets by mouth onc* DOXYCYCLINE MONOHYDRATE 100 M* Take 1 capsule by mouth twice * Patient not taking: Reported on 12/22/2018 FUROSEMIDE 20 MG TABLET Take 1 tablet by mouth twice * Patient taking differently: Take 40 mg by mouth once johan* CHOLESTYRAMINE (WITH SUGAR) 4* Take 4 g by mouth three times * Patient not taking: Reported on 10/10/2018 SPIRONOLACTONE 25 MG TABLET Take 1 tablet by mouth twice * Patient not taking: Reported on 12/22/2018 AMLODIPINE 5 MG TABLET Take 1 tablet by mouth once d* METOPROLOL TARTRATE 25 MG TAB* Take 0.5 tablets by mouth twi * COLACE ORAL Take 240 mg by mouth twice da* AMIODARONE 200 MG TABLET Take 1 tablet by mouth once d* APIXABAN 5 MG TABLET Take 1 tablet by mouth twice * CLOPIDOGREL 75 MG TABLET Take 1 tablet by mouth once d* MELATONIN 10 MG CAPSULE Take by mouth. CALCIUM CARBONATE 600 MG (1,5* Take 1 tablet by mouth once d * Patient not taking: Reported on 10/10/2018 NITROGLYCERIN 0.4 MG SUBLINGU* Dissolve 1 tablet under the t * MAGNESIUM 250 MG TABLET 2 tablets in the morning and * Patient not taking: Reported on 08/08/2018 * THERAPEUTIC MULTIVITAMIN TABL* Take one(1) tablet daily. * FISH OIL 1,200 MG-144 MG-216 * one capsule every other day Problem List As Of Date 09/13/2019 Noted Resolved Essential hypertension, benign [I10] 07/26/2005 More... 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 More... Sciatica [M54.30] 08/29/2006 03/02/2016 PUD (peptic ulcer disease) [K27.9] 12/18/2009 Mild cognitive impairment with memory loss [G31*07/03/2012 0 07/26/2017 Class 3 severe obesity due to excess calories w*07/03/2012 0 08/08/2018 Magnesium deficiency [E61.2] 12/03/2013 03/02/2016 ASHD (arteriosclerotic heart disease) [I25.10] 10/08/2014 Acute myocardial infarction (HCC) [I21.9] 10/08/2014 Moderate aortic stenosis [I35.0] 11/25/2014 08/08/2018 Moderate aortic valve insufficiency [I35.1] 11/25/201408/08 Arthritis of both hands [M19.041, M19.042] 03/03/2015 Chronic congestive heart failure (HCC) [I50.9] 03/03/2015 Impaired fasting glucose [R73.01] 03/04/2015 Gastroesophageal reflux disease with esophagiti*02/12/2016 History of aortic valve replacement [Z95.2] 03/02/2016 More... 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 Atrial fibrillation (HCC) [I48.91] 03/02/2016 More... 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 Author Type: Registered Nurse Type: Progress Notes Filed: 09/07/2019 9:53 AM Note Text: HIGH RISK CHRONIC DISEASE MONITORING Provider Action/FYI: Routine follow-up Contact made with patient: No - Unable to leave message - en tered next patient outreach date for the following week on the same in Track Pt. Outreach - End outreach Outreach ended cnptoutreach on CNPTOUTREACH Patient Outreach (FAMPWS) Normal 0 09-07-2019 [place] [facility] GALILEO HUSTON ([id number]) 1935 F R [place] Date Time Provider Department ([id number]) 09/07/19 RUTHIE LEUNG (RN) FAMPWS During your visit today, we recorded the following informati on about you: Ruthie Leung, RN, RN 09/07/2019 9:53 AM Signed HIGH RISK CHRONIC DISEASE MONITORING Provider Action/FYI: Routine follow-up Contact made with patient: No - Unable to leave message - en tered next patient outreach date for the following week on the same day in Track Pt. Outreach - End outreach Outreach ended Allergies As of Date: 09/07/2019 Noted Allergy Reaction bandaids [Other] 09/30/2005 LIPITOR (ATORVASTATIN CALCIUM) 07/22/2016 17 - Myalgia LYRICA (PREGABALIN) 11/30/2010 1 - Mental Status Change NIACIN 11/30/2010 14 - Other: See Comments Comments: myalgia ZOCOR (SIMVASTATIN) 08/09/2011 14 - Other: See Comments Comments: myalgia Date Reviewed: 12/29/2018 Reviewed by: Heriberto Moncada LPN - Fully Assessed Reason for Visit: Community Monitoring Outreach [Other] Cmt: # 9 outreach unab le to leave message Reason For Visit History Recorded Prescriptions as of 09/07/2019 Sig: TRAMADOL 50 MG TABLET Take 1 tablet by mouth every * LORAZEPAM 0.5 MG TABLET Take 1 tablet by mouth twice * LEVOTHYROXINE 125 MCG TABLET Take 1 tablet by mouth once d* OMEPRAZOLE 20 MG CAPSULE,MANUEL* Take 1 capsule by mouth daily * LISINOPRIL 10 MG TABLET Take 1 tablet by mouth once d* COMPOUNDED PRESCRIPTION Knee High Compression Stockin* FUROSEMIDE 20 MG TABLET Take 0.5 tablets by mouth onc* DOXYCYCLINE MONOHYDRATE 100 M* Take 1 capsule by mouth twice * Patient not taking: Reported on 12/22/2018 FUROSEMIDE 20 MG TABLET Take 1 tablet by mouth twice * Patient taking differently: Take 40 mg by mouth once johan* CHOLESTYRAMINE (WITH SUGAR) 4* Take 4 g by mouth three times * Patient not taking: Reported on 10/10/2018 SPIRONOLACTONE 25 MG TABLET Take 1 tablet by mouth twice * Patient not taking: Reported on 12/22/2018 AMLODIPINE 5 MG TABLET Take 1 tablet by mouth once d* METOPROLOL TARTRATE 25 MG TAB* Take 0.5 tablets by mouth twi * COLACE ORAL Take 240 mg by mouth twice da* AMIODARONE 200 MG TABLET Take 1 tablet by mouth once d* APIXABAN 5 MG TABLET Take 1 tablet by mouth twice * CLOPIDOGREL 75 MG TABLET Take 1 tablet by mouth once d* MELATONIN 10 MG CAPSULE Take by mouth. CALCIUM CARBONATE 600 MG (1,5* Take 1 tablet by mouth once d * Patient not taking: Reported on 10/10/2018 NITROGLYCERIN 0.4 MG SUBLINGU* Dissolve 1 tablet under the t * MAGNESIUM 250 MG TABLET 2 tablets in the morning and * Patient not taking: Reported on 08/08/2018 * THERAPEUTIC MULTIVITAMIN TABL* Take one(1) tablet daily. * FISH OIL 1,200 MG-144 MG-216 * one capsule every other day Problem List As Of Date 09/07/2019 Noted Resolved Essential hypertension, benign [I10] 07/26/2005 More... 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 More... Sciatica [M54.30] 08/29/2006 03/02/2016 PUD (peptic ulcer disease) [K27.9] 12/18/2009 Mild cognitive impairment with memory loss [G31*07/03/2012 0 07/26/2017 Class 3 severe obesity due to excess calories w*07/03/2012 0 08/08/2018 Magnesium deficiency [E61.2] 12/03/2013 03/02/2016 ASHD (arteriosclerotic heart disease) [I25.10] 10/08/2014 Acute myocardial infarction (HCC) [I21.9] 10/08/2014 Moderate aortic stenosis [I35.0] 11/25/2014 08/08/2018 Moderate aortic valve insufficiency [I35.1] 11/25/201408/08 Arthritis of both hands [M19.041, M19.042] 03/03/2015 Chronic congestive heart failure (HCC) [I50.9] 03/03/2015 Impaired fasting glucose [R73.01] 03/04/2015 Gastroesophageal reflux disease with esophagiti*02/12/2016 History of aortic valve replacement [Z95.2] 03/02/2016 More... 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 Atrial fibrillation (HCC) [I48.91] 03/02/2016 More... 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 Author Type: Registered Nurse Type: Progress Notes Filed: 08/23/2019 2:41 PM Note Text: HIGH RISK CHRONIC DISEASE MONITORING Provider Action/FYI: LVM, outreach in 2 weeks Contact made with patient: No - Left message - Hi my name is Khushboo Sanderson RN and I am calling from the [facility] on b ehalf of your PCP, Adair Rodriguez III MD Because of the COVID-19 outbreak, we were calling to help make sure you are feeling well and have what you need to manage your well-being. If you'd like to call us back to [facility] in, you can reach us at during business hours Tuesday- Tuesday 8:00AM-4:30PM. If not, we will call you next week. If you vieira ve an urgent need, please contact your PCP's office. Thank you. Entered n ext patient outreach date for the following week on the same business da y of the week using Track Pt Outreach. End outreach. Outreach ended Khushboo Sanderson RN August 23, 2019 2:41 PM cnptoutreach on CNPTOUTREACH Patient Outreach (FAMPWS) Normal 0 08-23-2019 [place] G[place] N ([id number]) 1935 F NFR [place] Date Time Provider Department ([id number]) 08/23/19 KIN CUELLO (RN) FAMPWS During your visit today, we recorded the following informati on about you: Khushboo Sanderson RN 08/23/2019 2:41 PM Signed HIGH RISK CHRONIC DISEASE MONITORING Provider Action/FYI: LVM, outreach in 2 weeks Contact made with patient: No - Left message - Hi my name is Khushboo Sanderson RN and I am calling from the [facility] on behalf of your PCP, Adair Rodriguez III MD Because of the COVID-19 outbreak, we w ere calling to help make sure you are feeling well and have what you need t o manage your well-being. If you'd like to call us back to check in, you c an reach us at during business hours Tuesday-Tuesday 8:0 0AM-4:30PM. If not, we will call you next week. If you have an urgent need, please contact your PCP's office. Thank you. Entered next patient outreach date for the following week on the same business day of the week using Track Pt Adelea ch. End outreach. Outreach ended Khushboo Sanderson RN August 23, 2019 2:41 PM Allergies As of Date: 08/23/2019 Noted Allergy Reaction bandaids [Other] 09/30/2005 LIPITOR (ATORVASTATIN CALCIUM) 07/22/2016 17 - Myalgia LYRICA (PREGABALIN) 11/30/2010 1 - Mental Status Change NIACIN 11/30/2010 14 - Other: See Comments Comments: myalgia ZOCOR (SIMVASTATIN) 08/09/2011 14 - Other: See Comments Comments: myalgia Date Reviewed: 12/29/2018 Reviewed by: Heriberto Moncada LPN - Fully Assessed Reason for Visit: Community Monitoring Outreach [Other] Cmt: Outreach 8 Prescriptions as of 08/23/2019 Sig: TRAMADOL 50 MG TABLET Take 1 tablet by mouth every * LORAZEPAM 0.5 MG TABLET Take 1 tablet by mouth twice * LEVOTHYROXINE 125 MCG TABLET Take 1 tablet by mouth once d* OMEPRAZOLE 20 MG CAPSULE,MANUEL* Take 1 capsule by mouth daily * LISINOPRIL 10 MG TABLET Take 1 tablet by mouth once d* COMPOUNDED PRESCRIPTION Knee High Compression Stockin* FUROSEMIDE 20 MG TABLET Take 0.5 tablets by mouth onc* DOXYCYCLINE MONOHYDRATE 100 M* Take 1 capsule by mouth twice * Patient not taking: Reported on 12/22/2018 FUROSEMIDE 20 MG TABLET Take 1 tablet by mouth twice * Patient taking differently: Take 40 mg by mouth once johan* CHOLESTYRAMINE (WITH SUGAR) 4* Take 4 g by mouth three times * Patient not taking: Reported on 10/10/2018 SPIRONOLACTONE 25 MG TABLET Take 1 tablet by mouth twice * Patient not taking: Reported on 12/22/2018 AMLODIPINE 5 MG TABLET Take 1 tablet by mouth once d* METOPROLOL TARTRATE 25 MG TAB* Take 0.5 tablets by mouth twi * COLACE ORAL Take 240 mg by mouth twice da* AMIODARONE 200 MG TABLET Take 1 tablet by mouth once d* APIXABAN 5 MG TABLET Take 1 tablet by mouth twice * CLOPIDOGREL 75 MG TABLET Take 1 tablet by mouth once d* MELATONIN 10 MG CAPSULE Take by mouth. CALCIUM CARBONATE 600 MG (1,5* Take 1 tablet by mouth once d * Patient not taking: Reported on 10/10/2018 NITROGLYCERIN 0.4 MG SUBLINGU* Dissolve 1 tablet under the t * MAGNESIUM 250 MG TABLET 2 tablets in the morning and * Patient not taking: Reported on 08/08/2018 * THERAPEUTIC MULTIVITAMIN TABL* Take one(1) tablet daily. * FISH OIL 1,200 MG-144 MG-216 * one capsule every other day Problem List As Of Date 08/23/2019 Noted Resolved Essential hypertension, benign [I10] 07/26/2005 More... 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 More... Sciatica [M54.30] 08/29/2006 03/02/2016 PUD (peptic ulcer disease) [K27.9] 12/18/2009 Mild cognitive impairment with memory loss [G31*07/03/2012 0 07/26/2017 Class 3 severe obesity due to excess calories w*07/03/2012 0 08/08/2018 Magnesium deficiency [E61.2] 12/03/2013 03/02/2016 ASHD (arteriosclerotic heart disease) [I25.10] 10/08/2014 Acute myocardial infarction (HCC) [I21.9] 10/08/2014 Moderate aortic stenosis [I35.0] 11/25/2014 08/08/2018 Moderate aortic valve insufficiency [I35.1] 11/25/201408/08 Arthritis of both hands [M19.041, M19.042] 03/03/2015 Chronic congestive heart failure (HCC) [I50.9] 03/03/2015 Impaired fasting glucose [R73.01] 03/04/2015 Gastroesophageal reflux disease with esophagiti*02/12/2016 History of aortic valve replacement [Z95.2] 03/02/2016 More... 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 Atrial fibrillation (HCC) [I48.91] 03/02/2016 More... 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 Author Type: Physician Type: Progress Notes Filed: 08/14/2019 2:13 PM Note Text: PDMP website checked and validated. All prescriptions have b een APPROPRIATELY filled. No suspicious activity was identified. 08/14/2019 by Adair Rodriguez III MD Try increase tramadol 50 mg TID prn pa in Continue lorazapam prn anxiety Adair Rodriguez III MD progress on 2019-07 PROGRESS HNO ID: [id number] Normal 08-09-2019 [facility] Author: Sabra (Network Navigator) Jorge A Goel ([id number]) Service: ? Author Type: Optics Engineer Type: Progress Notes Filed: 08/09/2019 2:07 PM Note Text: HIGH RISK CHRONIC DISEASE MONITORING Provider Action/FYI: Spoke with patient, she is doing well. She would like to have next outreach for a few weeks out. Thank you Contact made with patient: Yes Patient identified by name and Yes Discussed care with patient Yes Hi my name is Sabra Jules, NETWORK NAVIGATOR and I am calling from the [facility] on behalf of your PCP, Adair Rodriguez I II MD Because of the Covid-19 outbreak, I am calling to help make sure you are feeling well and that you have what you need to manage your well-hernandez ng, since it is so important to stay home and take social distancing seri ously to help protect your health at this time. If you have any health con cerns, we will come up with a plan on how to proceed. SYMPTOMS: I'd like to ask some question about how you are managing you r health. Would that be OK? Yes Do you have any new or worsening symptoms that you'd like to discuss with a provider? No symptoms - Continue outreach/phone call ACTION TAKEN: No Symptoms - Continue phone call MEDICATIONS: Do you have any questions about taking your medication or wh ich medications you should be on? No Do you need any medication refills at this time, including a ny of the medications you might take only when needed? No ACTION TAKEN: No action required SOCIAL: We would like to make sure you have what you need so that yo ur basics needs are met - including your personal safety, food, housin g and medications. Would you like to speak with a social work sports team manager to help give you support for any of these needs? No It can be normal to feel anxious or down during a time like this. Would you like to talk to a mental health professional about how y ou have been feeling? No ACTION TAKEN: No action taken STUCCO LABORER: Patient MyChart status is: Declined Thank you for taking the time to talk with me today. We want to work with you to ensure that we are keeping your medical conditions we ll-controlled and to keep you healthy and out of the doctor's office or [facility]. Our team would like to stay connected with you to make sure you are feeling well. I am inviting you to complete a short questionnaire that kristi l be sent to you via Surround App once a week for the next few weeks to months . [facility] the best way for us to communicate about your health and wel l-being in between physician visits and telephone calls. This questionn aire is designed to check in on how you are feeling - and if certain symptoms are improving or getting worse. Your treatment team will review your answers and then follow up if we notice any concerning changes in yo ur symptoms. The questionnaire will come to you through your Surround App acco unt and will replace the need for us to call you each week. May I sign yo u up for this? No, reason: I don't like using Surround App I understand. We can always sign you up in the future if you change your mind. Just as a reminder, will will continue to call you eac h week to check in on your health. Our calls should take 10 minutes or less, and we'll plan to call you weekly for the next few weeks to [facility] while this outbreak continues to help make sure you stay well. Remember in the meantime, if you have concerns in between our calls, please call your PCP's office right away. Thank you. 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 Enter next [facility] ent outreach date for the following week on the same day of the week as zoila cintron in the Track Pt Outreach. At present, these are our recommendations regarding the ruth navirus (COVID-19) outbreak: ? Avoid public places as much as possible. ? Avoid close contact (within 6 feet) with others you don't live with, especially if they are sick. ? Stay home if you are sick. ? Wash your hands regularly for at least 20 seconds with soa p and water. ? Wear a cloth mask in public places to help reduce communit y spread. ? Do not go to your Doctor's office unless instructed to do so. For any non-emergency symptoms, call your Doctor's office to get ins tructions on how to manage (we might recommend a telephone or virtual vis it). For emergency symptoms, proceed to Emergency Department as usual but inform them of cough and fever symptoms WILLIAM if present (or call on the way if possible). End outreach cnptoutreach on CNPTOUTREACH Patient Outreach ([facility]) Normal 0 08-09-2019 [place] [facility] GALILEO HUSTON Aide ([id number]) 1935 F R [place] Date Time Provider Department ([id number]) 08/09/19 SABRA JULES (NETWORK NAVIGATOR[place] [place] your visit today, we recorded the following informati on about you: REZA Garsia 08/09/2019 2:07 PM Laura rivera HIGH RISK CHRONIC DISEASE MONITORING Provider Action/FYI: Spoke with patient, she is doing well. She would like to have next outreach for a few weeks out. Thank you Contact made with patient: Yes Patient identified by name and Yes Discussed care with patient Yes Hi my name is REZA Garsia and I am calling from the [facility] on behalf of your PCP, Adair Rodriguez III MD Because of the Covid-19 outbreak, I am call ing to help make sure you are feeling well and that you have what you need to manage your well-being , since it is so important to stay home and take social distancing seriously t o help protect your health at this time. If you have any health concer ns, we will come up with a plan on how to proceed. SYMPTOMS: I'd like to ask some question about how you are managing y our health. Would that be OK? Yes Do you have any new or worsening symptoms that you'd like to discuss with a provider? No symptoms - Continue outreach/phone call ACTION TAKEN: No Symptoms - Continue phone call MEDICATIONS: Do you have any questions ab out taking your medication or which medications you should be on? No Do you need any medication refills at this time, including a ny of the medications you might take only when needed? No ACTION TAKEN: No action required SOCIAL: We would like to make sure y ou have what you need so that your basics needs are met - including your personal safety, fo od, housing and medications. Would you like to speak with a social work sports team manager to help give you support for any of these needs? No It can be normal to feel anxious or down during a time lik e this. Would you like to talk to a mental health professional abo ut how you have been feeling? No ACTION TAKEN: No action taken STUCCO LABORER: Patient Angelhart status is: Declined Thank you for taking the time to talk with me to day. We want to work with you to ensure that we are keeping your medical conditions well-controlled and to keep you healthy and out of the doctor's office or [facility]. Our team would like to stay connected with you to make sure you are feeling well. I am inviting you to complete a short questionnaire th at will be sent to you via Surround App once a week for the next few weeks t o months. Surround App is the best way for us to communicate ab out your health and well-being in between physician visits and telephone calls. This questionnaire i s designed to check in on how you are feeling - and if certain symptom s are improving or getting worse. Your treatment team will review your answers and then follow up if we notice any concerning changes in your symptoms. The questionnaire will come to you through your Surround App account and will re place the need for us to call you each week. May I sign you up for this? No, reason: I don't like using Surround App I understand. We can always sign you up in the future if you change your mind. Just as a reminder, will will continue to call you each we ek to check in on your health. Our calls should take 10 minutes or less, and we'll plan to call you weekly for the next few weeks to months while this outbreak continues to help make sure you stay well. Remember in the meantime , if you have concerns in between our calls, please call your PCP's office right aw ay. Thank you. 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 Ent er next patient outreach date for the following week on the same day of the week as julinana y in the Track Pt Outreach. At present, these are our recommendation s regarding the coronavirus (COVID-19) outbreak: ? Avoid public places as much as possible. ? Avoid close contact (within 6 feet) with others you don't live with, especially if they are sick. ? Stay home if you are sick. ? Wash your hands regularly for at least 20 seconds with soa p and water. ? Wear a cloth mask in public places to help reduce communit y spread. ? Do not go to your Doctor's office unless instructed to do so. For any non-emergency symptoms, call your Doctor's office to get instructions on how to manage (we might recommend a telephone or virtual visit). Fo r emergency symptoms, proceed to Emergen cy Department as usual but inform them of cough and fever symptoms WILLIAM if present (or call on the way if possib le). End outreach Allergies As of Date: 08/09/2019 Noted Allergy Reaction bandaids [Other] 09/30/2005 LIPITOR (ATORVASTATIN CALCIUM) 07/22/2016 17 - Myalgia LYRICA (PREGABALIN) 11/30/2010 1 - Mental Status Change NIACIN 11/30/2010 14 - Other: See Comments Comments: myalgia ZOCOR (SIMVASTATIN) 08/09/2011 14 - Other: See Comments Comments: myalgia Date Reviewed: 12/29/2018 Reviewed by: Heriberto Moncada LPN - Fully Assessed Reason for Visit: Community Monitoring Outreach [Other] Cmt: Week 7, f/u call Reason For Visit History Recorded Prescriptions as of 08/09/2019 Sig: LEVOTHYROXINE 125 MCG TABLET Take 1 tablet by mouth once d* OMEPRAZOLE 20 MG CAPSULE,MANUEL* Take 1 capsule by mouth daily * TRAMADOL 50 MG TABLET Take 1 tablet by mouth twice * LISINOPRIL 10 MG TABLET Take 1 tablet by mouth once d* COMPOUNDED PRESCRIPTION Knee High Compression Stockin* FUROSEMIDE 20 MG TABLET Take 0.5 tablets by mouth onc* DOXYCYCLINE MONOHYDRATE 100 M* Take 1 capsule by mouth twice * Patient not taking: Reported on 12/22/2018 FUROSEMIDE 20 MG TABLET Take 1 tablet by mouth twice * Patient taking differently: Take 40 mg by mouth once johan* CHOLESTYRAMINE (WITH SUGAR) 4* Take 4 g by mouth three times * Patient not taking: Reported on 10/10/2018 SPIRONOLACTONE 25 MG TABLET Take 1 tablet by mouth twice * Patient not taking: Reported on 12/22/2018 AMLODIPINE 5 MG TABLET Take 1 tablet by mouth once d* METOPROLOL TARTRATE 25 MG TAB* Take 0.5 tablets by mouth twi * COLACE ORAL Take 240 mg by mouth twice da* AMIODARONE 200 MG TABLET Take 1 tablet by mouth once d* APIXABAN 5 MG TABLET Take 1 tablet by mouth twice * CLOPIDOGREL 75 MG TABLET Take 1 tablet by mouth once d* MELATONIN 10 MG CAPSULE Take by mouth. CALCIUM CARBONATE 600 MG (1,5* Take 1 tablet by mouth once d * Patient not taking: Reported on 10/10/2018 NITROGLYCERIN 0.4 MG SUBLINGU* Dissolve 1 tablet under the t * MAGNESIUM 250 MG TABLET 2 tablets in the morning and * Patient not taking: Reported on 08/08/2018 * THERAPEUTIC MULTIVITAMIN TABL* Take one(1) tablet daily. * FISH OIL 1,200 MG-144 MG-216 * one capsule every other day Problem List As Of Date 08/09/2019 Noted Resolved Essential hypertension, benign [I10] 07/26/2005 More... 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 More... Sciatica [M54.30] 08/29/2006 03/02/2016 PUD (peptic ulcer disease) [K27.9] 12/18/2009 Mild cognitive impairment with memory loss [G31*07/03/2012 0 07/26/2017 Class 3 severe obesity due to excess calories w*07/03/2012 0 08/08/2018 Magnesium deficiency [E61.2] 12/03/2013 03/02/2016 ASHD (arteriosclerotic heart disease) [I25.10] 10/08/2014 Acute myocardial infarction (HCC) [I21.9] 10/08/2014 Moderate aortic stenosis [I35.0] 11/25/2014 08/08/2018 Moderate aortic valve insufficiency [I35.1] 11/25/201408/08 Arthritis of both hands [M19.041, M19.042] 03/03/2015 Chronic congestive heart failure (HCC) [I50.9] 03/03/2015 Impaired fasting glucose [R73.01] 03/04/2015 Gastroesophageal reflux disease with esophagiti*02/12/2016 History of aortic valve replacement [Z95.2] 03/02/2016 More... 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 Atrial fibrillation (HCC) [I48.91] 03/02/2016 More... 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 Author Type: Registered Nurse Type: Progress Notes Filed: 07/26/2019 3:10 PM Note Text: HIGH RISK CHRONIC DISEASE MONITORING Provider Action/FYI: Call to Pt left a vm, outreach in 2 weeks Contact made with patient: No - Left message - Hi my name is Khushboo Sanderson RN and I am calling from the [facility] on b ehalf of your PCP, Adair Rodriguez III MD Because of the COVID-19 outbreak, we were calling to help make sure you are feeling well and have what you need to manage your well-being. If you'd like to call us back to [facility] in, you can reach us at during business hours Tuesday- Tuesday 8:00AM-4:30PM. If not, we will call you next week. If you vieira ve an urgent need, please contact your PCP's office. Thank you. Entered n ext patient outreach date for the following week on the same business da y of the week using Track Pt Outreach. End outreach. Outreach ended Khushboo Sanderson RN July 26, 2019 3:09 PM cnptoutreach on CNPTOUTREACH Patient Outreach (FAMPWS) Normal 0 07-26-2019 [place] [facility] GALILEO HUSTON Aide ([id number]) 1935 F NFR [place] Date Time Provider Department ([id number]) 07/26/19 KIN CUELLO (RN) FAMPWS During your visit today, we recorded the following informati on about you: Khushboo Sanderson RN 07/26/2019 3:10 PM Signed HIGH RISK CHRONIC DISEASE MONITORING Provider Action/FYI: Call to Pt hira a asim, outreach in 2 weeks Contact made with patient: No - Left message - Hi my name is Khushboo Sanderson RN and I am calling from the [facility] on behalf of your PCP, Adair Rodriguez III MD Because of the COVID-19 outbreak, we w ere calling to help make sure you are feeling well and have what you need t o manage your well-being. If you'd like to call us back to check in, you c an reach us at during business hours Tuesday-Tuesday 8:0 0AM-4:30PM. If not, we will call you next week. If you have an urgent need, please contact your PCP's office. Thank you. Entered next patient outreach date for the following week on the same business day of the week using Track Pt Mathew padron End outreach. Outreach ended Khushboo Sanderson RN July 26, 2019 3:09 PM Allergies As of Date: 07/26/2019 Noted Allergy Reaction bandaids [Other] 09/30/2005 LIPITOR (ATORVASTATIN CALCIUM) 07/22/2016 17 - Myalgia LYRICA (PREGABALIN) 11/30/2010 1 - Mental Status Change NIACIN 11/30/2010 14 - Other: See Comments Comments: myalgia ZOCOR (SIMVASTATIN) 08/09/2011 14 - Other: See Comments Comments: myalgia Date Reviewed: 12/29/2018 Reviewed by: Heriberto Moncada LPN - Fully Assessed Reason for Visit: Community Monitoring Outreach [Other] Cmt: Outreach 6 Prescriptions as of 07/26/2019 Sig: LEVOTHYROXINE 125 MCG TABLET Take 1 tablet by mouth once d* OMEPRAZOLE 20 MG CAPSULE,MANUEL* Take 1 capsule by mouth daily * TRAMADOL 50 MG TABLET Take 1 tablet by mouth twice * LISINOPRIL 10 MG TABLET Take 1 tablet by mouth once d* COMPOUNDED PRESCRIPTION Knee High Compression Stockin* FUROSEMIDE 20 MG TABLET Take 0.5 tablets by mouth onc* DOXYCYCLINE MONOHYDRATE 100 M* Take 1 capsule by mouth twice * Patient not taking: Reported on 12/22/2018 FUROSEMIDE 20 MG TABLET Take 1 tablet by mouth twice * Patient taking differently: Take 40 mg by mouth once johan* CHOLESTYRAMINE (WITH SUGAR) 4* Take 4 g by mouth three times * Patient not taking: Reported on 10/10/2018 SPIRONOLACTONE 25 MG TABLET Take 1 tablet by mouth twice * Patient not taking: Reported on 12/22/2018 AMLODIPINE 5 MG TABLET Take 1 tablet by mouth once d* METOPROLOL TARTRATE 25 MG TAB* Take 0.5 tablets by mouth twi * COLACE ORAL Take 240 mg by mouth twice da* AMIODARONE 200 MG TABLET Take 1 tablet by mouth once d* APIXABAN 5 MG TABLET Take 1 tablet by mouth twice * CLOPIDOGREL 75 MG TABLET Take 1 tablet by mouth once d* MELATONIN 10 MG CAPSULE Take by mouth. CALCIUM CARBONATE 600 MG (1,5* Take 1 tablet by mouth once d * Patient not taking: Reported on 10/10/2018 NITROGLYCERIN 0.4 MG SUBLINGU* Dissolve 1 tablet under the t * MAGNESIUM 250 MG TABLET 2 tablets in the morning and * Patient not taking: Reported on 08/08/2018 * THERAPEUTIC MULTIVITAMIN TABL* Take one(1) tablet daily. * FISH OIL 1,200 MG-144 MG-216 * one capsule every other day Problem List As Of Date 07/26/2019 Noted Resolved Essential hypertension, benign [I10] 07/26/2005 More... 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 More... Sciatica [M54.30] 08/29/2006 03/02/2016 PUD (peptic ulcer disease) [K27.9] 12/18/2009 Mild cognitive impairment with memory loss [G31*07/03/2012 0 07/26/2017 Class 3 severe obesity due to excess calories w*07/03/2012 0 08/08/2018 Magnesium deficiency [E61.2] 12/03/2013 03/02/2016 ASHD (arteriosclerotic heart disease) [I25.10] 10/08/2014 Acute myocardial infarction (HCC) [I21.9] 10/08/2014 Moderate aortic stenosis [I35.0] 11/25/2014 08/08/2018 Moderate aortic valve insufficiency [I35.1] 11/25/201408/08 Arthritis of both hands [M19.041, M19.042] 03/03/2015 Chronic congestive heart failure (HCC) [I50.9] 03/03/2015 Impaired fasting glucose [R73.01] 03/04/2015 Gastroesophageal reflux disease with esophagiti*02/12/2016 History of aortic valve replacement [Z95.2] 03/02/2016 More... 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 Atrial fibrillation (HCC) [I48.91] 03/02/2016 More... 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*07/12/2017 0 08/08/2018 Hypothyroidism, acquired [E03.9] 07/12/2017 CKD (chronic kidney disease) stage 3, GFR 30-59*07/12/2017 Chronic anxiety [F41.9] 11/09/2017 Encounter Status:Closed by KHUSHBOO SANDERSON on 07/26/19 obsolete on 2019-07 OBSOLETE Refill (FAMPWS) Normal 07-24-2019 [place] cyn[place] [facility] GALILEO HUSTON ([id number]) 1935 F NFR [place] Date Time Provider Department ([id number]) 07/24/19 ADAIR RODRIGUEZ III FAMPWS During your visit today, we recorded the following informati on about you: Gilda Ibrahim Ma 07/24/2019 10:14 AM Signed Patient has been identified by name and date of : Yes Pending Prescriptions Disp Refills LEVOTHYROXINE 125 MCG TABLET 30 tablet 11 Sig: Take 1 tablet by mouth once daily. Take on empty stomac h. For Thyroid COSME: No RX INSTRUCTIONS: Patient aware RX will be sent to pharmacy. No need to notify patient. Gilda Ibrahim Ma Last ov; 05/2019 Last refill; 08/2018 No appointment scheduled Allergies As of Date: 07/24/2019 Noted Allergy Reaction bandaids [Other] 09/30/2005 LIPITOR (ATORVASTATIN CALCIUM) 07/22/2016 17 - Myalgia LYRICA (PREGABALIN) 11/30/2010 1 - Mental Status Change NIACIN 11/30/2010 14 - Other: See Comments Comments: myalgia ZOCOR (SIMVASTATIN) 08/09/2011 14 - Other: See Comments Comments: myalgia Date Reviewed: 12/29/2018 Reviewed by: Heriberto Moncada LPN - Fully Assessed Reason for Visit: Refill Request [94] Visit Diagnosis:Hypothyroidism, acquired [E03.9] Order(s):levothyroxine (SYNTHROID) 125 mcg tabletTake 1 tablet by mouth once daily. Take on empty stomach. For ThyroidDisp: 30 tabletRfl: 11 omeprazole (PRILOSEC) 20 mg capsuleTake 1 capsule by mouth d aily before breakfast. 1/2 hr before meal.Disp: 90 capsuleRfl: 1 Prescriptions as of 07/24/2019 Sig: LEVOTHYROXINE 125 MCG TABLET Take 1 tablet by mouth once d* OMEPRAZOLE 20 MG CAPSULE,MANUEL* Take 1 capsule by mouth daily * TRAMADOL 50 MG TABLET Take 1 tablet by mouth twice * LISINOPRIL 10 MG TABLET Take 1 tablet by mouth once d* COMPOUNDED PRESCRIPTION Knee High Compression Stockin* FUROSEMIDE 20 MG TABLET Take 0.5 tablets by mouth onc* DOXYCYCLINE MONOHYDRATE 100 M* Take 1 capsule by mouth twice * Patient not taking: Reported on 12/22/2018 FUROSEMIDE 20 MG TABLET Take 1 tablet by mouth twice * Patient taking differently: Take 40 mg by mouth once johan* CHOLESTYRAMINE (WITH SUGAR) 4* Take 4 g by mouth three times * Patient not taking: Reported on 10/10/2018 SPIRONOLACTONE 25 MG TABLET Take 1 tablet by mouth twice * Patient not taking: Reported on 12/22/2018 AMLODIPINE 5 MG TABLET Take 1 tablet by mouth once d* METOPROLOL TARTRATE 25 MG TAB* Take 0.5 tablets by mouth twi * COLACE ORAL Take 240 mg by mouth twice da* AMIODARONE 200 MG TABLET Take 1 tablet by mouth once d* APIXABAN 5 MG TABLET Take 1 tablet by mouth twice * CLOPIDOGREL 75 MG TABLET Take 1 tablet by mouth once d* MELATONIN 10 MG CAPSULE Take by mouth. CALCIUM CARBONATE 600 MG (1,5* Take 1 tablet by mouth once d * Patient not taking: Reported on 10/10/2018 NITROGLYCERIN 0.4 MG SUBLINGU* Dissolve 1 tablet under the t * MAGNESIUM 250 MG TABLET 2 tablets in the morning and * Patient not taking: Reported on 08/08/2018 * THERAPEUTIC MULTIVITAMIN TABL* Take one(1) tablet daily. * FISH OIL 1,200 MG-144 MG-216 * one capsule every other day Problem List As Of Date 07/24/2019 Noted Resolved Essential hypertension, benign [I10] 07/26/2005 More... 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 More... Sciatica [M54.30] 08/29/2006 03/02/2016 PUD (peptic ulcer disease) [K27.9] 12/18/2009 Mild cognitive impairment with memory loss [G31*07/03/2012 0 07/26/2017 Class 3 severe obesity due to excess calories w*07/03/2012 0 08/08/2018 Magnesium deficiency [E61.2] 12/03/2013 03/02/2016 ASHD (arteriosclerotic heart disease) [I25.10] 10/08/2014 Acute myocardial infarction (HCC) [I21.9] 10/08/2014 Moderate aortic stenosis [I35.0] 11/25/2014 08/08/2018 Moderate aortic valve insufficiency [I35.1] 11/25/201408/08 Arthritis of both hands [M19.041, M19.042] 03/03/2015 Chronic congestive heart failure (HCC) [I50.9] 03/03/2015 Impaired fasting glucose [R73.01] 03/04/2015 Gastroesophageal reflux disease with esophagiti*02/12/2016 History of aortic valve replacement [Z95.2] 03/02/2016 More... 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 Atrial fibrillation (HCC) [I48.91] 03/02/2016 More... 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 Take on empty stomac h. For Thyroid OMEPRAZOLE 20 MG CAPSULE,DELAYED REL* 90 c* 1 07/24/2019 Route: ORAL Sig: Take 1 capsule by mouth daily before breakfast. 1/2 hr before meal. Medications Discontinued During This Encounter levothyroxine (SYNTHROID) 125 mcg ta* 30 t* 11 08/28/201807/23 Route: ORAL Sig: Take 1 tablet by mouth once daily. Take on empty stomac h. For Thyroid Disc: Reason for discontinue is not on file. omeprazole (PRILOSEC) 20 mg capsule 90 c* 1 02/06/2019 020 Route: ORAL Sig: Take 1 capsule by mouth daily before breakfast. 1/2 hr before meal. Disc: Reason for discontinue is not on file. Encounter Status:Closed by ABI CRAIG CNP on 07/24/19 progress on 2019-06 PROGRESS HNO ID: [id number] Normal 07-11-2019 [facility] Author: Niecy Estrella Goel ([id number]) Service: ? Author Type: Registered Nurse Type: Progress Notes Filed: 07/11/2019 10:43 AM Note Text: HIGH RISK CHRONIC DISEASE MONITORING Provider Action/FYI: Contact made with patient: Yes Patient identified by name and . Discussed care with patient Hi my name is Niecy Whitney RN and I am calling from the [facility] on behalf of your PCP, Adair Rodriguez III MD Because of the Covid-19 outbreak, I am calling to help make sure you are fe eling well and that you have what you need to manage your well-being, since it is so important to stay home and take social distancing seriously to help protect your health at this time. If you have any health con cerns, we will come up with a plan on how to proceed. SYMPTOMS: I'd like to ask some question about how you are managing you r health. Would that be OK? Yes Do you have any new or worsening symptoms that you'd like to discuss with a provider? No symptoms - Continue outreach/phone call ACTION TAKEN: No Symptoms - Continue phone call MEDICATIONS: Do you have any questions about taking your medication or wh ich medications you should be on? No Do you need any medication refills at this time, including a ny of the medications you might take only when needed? No ACTION TAKEN: No action required SOCIAL: We would like to make sure you have what you need so that yo ur basics needs are met - including your personal safety, food, housin g and medications. Would you like to speak with a social work sports team manager to help give you support for any of these needs? No It can be normal to feel anxious or down during a time like this. Would you like to talk to a mental health professional about how y ou have been feeling? No ACTION TAKEN: No action taken STUCCO LABORER: Patient Harrison status is: Declined Thank you for taking the time to talk with me today. We want to work with you to ensure that we are keeping your medical conditions we ll-controlled and to keep you healthy and out of the doctor's office or ho spital. Our team would like to stay connected with you to make sure you are feeling well. I am inviting you to complete a short questionnaire that kristi l be sent to you via Surround App once a week for the next few weeks to months . Surround App is the best way for us to communicate about your health and wel l-being in between physician visits and telephone calls. This questionn aire is designed to check in on how you are feeling - and if certain symptoms are improving or getting worse. Your treatment team will review your answers and then follow up if we notice any concerning changes in yo ur symptoms. The questionnaire will come to you through your Surround App acco unt and will replace the need for us to call you each week. May I sign yo u up for this? No, reason: I don't have a smartphone or computer I understand. We can always sign you up in the future if you change your mind. Just as a reminder, will will continue to call you eac h week to check in on your health. Our calls should take 10 minutes or less, and we'll plan to call you weekly for the next few weeks to [facility] while this outbreak continues to help make sure you stay well. Remember in the meantime, if you have concerns in between our calls, please call your PCP's office right away. Thank you. 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 Enter next chino ent outreach date for the following week on the same day of the week as zoila cintron in the Track Pt Outreach. At present, these are our recommendations regarding the ruth navirus (COVID-19) outbreak: ? Avoid public places as much as possible. ? Avoid close contact (within 6 feet) with others you don't live with, especially if they are sick. ? Stay home if you are sick. ? Wash your hands regularly for at least 20 seconds with soa p and water. ? Wear a cloth mask in public places to help reduce communit y spread. ? Do not go to your Doctor's office unless instructed to do so. For any non-emergency symptoms, call your Doctor's office to get ins tructions on how to manage (we might recommend a telephone or virtual vis it). For emergency symptoms, proceed to Emergency Department as usual but inform them of cough and fever symptoms WILLIAM if present (or call on the way if possible). End outreach obsolete on 2019-06 OBSOLETE Refill (FAMPWS) Normal 07-11-2019 [facility] GALILEO HUSTON ([id number]) 1935 [facility] Date Time Provider Department ([id number]) 07/11/19 ADAIR RODRIGUEZ III During your visit today, we recorded the following informati on about you: Nancy Mahajan 07/11/2019 8:55 AM Signed Patient has been identified by name and date of : Yes Pending Prescriptions Disp Refills TRAMADOL 50 MG TABLET 60 tablet 0 Sig: Take 1 tablet by mouth twice daily for 30 days. RADHA Class: C-IV COSME: No Patient out of med RX INSTRUCTIONS: Patient aware RX will be sent to pharmacy. No need to notify patient. Nancy Rodriguez III MD 07/11/2019 12:47 PM Signed PDMP website checked and validated. All prescrip tions have been APPROPRIATELY filled. No suspicious activity was ident ified. 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] Order(s):traMADol (ULTRAM) 50 mg tabletTake 1 ta blet by mouth twice daily for 30 days.Disp: 60 tabletRfl: 0 TOX SCREEN ROUT UR [SQUTOX2] Order #: [id number] Prescriptions as of 07/11/2019 Sig: TRAMADOL 50 MG TABLET Take 1 tablet by mouth twice * LISINOPRIL 10 MG TABLET Take 1 tablet by mouth once d* OMEPRAZOLE 20 MG CAPSULE,MANUEL* Take 1 capsule by mouth daily * COMPOUNDED PRESCRIPTION Knee High Compression Stockin* FUROSEMIDE 20 MG TABLET Take 0.5 tablets by mouth onc* DOXYCYCLINE MONOHYDRATE 100 M* Take 1 capsule by mouth twice * Patient not taking: Reported on 12/22/2018 LEVOTHYROXINE 125 MCG TABLET Take 1 tablet by mouth once d* FUROSEMIDE 20 MG TABLET Take 1 tablet by mouth twice * Patient taking differently: Take 40 mg by mouth once johan* CHOLESTYRAMINE (WITH SUGAR) 4* Take 4 g by mouth three times * Patient not taking: Reported on 10/10/2018 SPIRONOLACTONE 25 MG TABLET Take 1 tablet by mouth twice * Patient not taking: Reported on 12/22/2018 AMLODIPINE 5 MG TABLET Take 1 tablet by mouth once d* METOPROLOL TARTRATE 25 MG TAB* Take 0.5 tablets by mouth twi * COLACE ORAL Take 240 mg by mouth twice da* AMIODARONE 200 MG TABLET Take 1 tablet by mouth once d* APIXABAN 5 MG TABLET Take 1 tablet by mouth twice * CLOPIDOGREL 75 MG TABLET Take 1 tablet by mouth once d* MELATONIN 10 MG CAPSULE Take by mouth. CALCIUM CARBONATE 600 MG (1,5* Take 1 tablet by mouth once d * Patient not taking: Reported on 10/10/2018 NITROGLYCERIN 0.4 MG SUBLINGU* Dissolve 1 tablet under the t * MAGNESIUM 250 MG TABLET 2 tablets in the morning and * Patient not taking: Reported on 08/08/2018 * THERAPEUTIC MULTIVITAMIN TABL* Take one(1) tablet daily. * FISH OIL 1,200 MG-144 MG-216 * one capsule every other day Problem List As Of Date 07/11/2019 Noted Resolved Essential hypertension, benign [I10] 07/26/2005 More... 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 More... Sciatica [M54.30] 08/29/2006 03/02/2016 PUD (peptic ulcer disease) [K27.9] 12/18/2009 Mild cognitive impairment with memory loss [G31*07/03/2012 0 07/26/2017 Class 3 severe obesity due to excess calories w*07/03/2012 0 08/08/2018 Magnesium deficiency [E61.2] 12/03/2013 03/02/2016 ASHD (arteriosclerotic heart disease) [I25.10] 10/08/2014 Acute myocardial infarction (HCC) [I21.9] 10/08/2014 Moderate aortic stenosis [I35.0] 11/25/2014 08/08/2018 Moderate aortic valve insufficiency [I35.1] 11/25/201408/08 Arthritis of both hands [M19.041, M19.042] 03/03/2015 Chronic congestive heart failure (HCC) [I50.9] 03/03/2015 Impaired fasting glucose [R73.01] 03/04/2015 Gastroesophageal reflux disease with esophagiti*02/12/2016 History of aortic valve replacement [Z95.2] 03/02/2016 More... 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 Atrial fibrillation (HCC) [I48.91] 03/02/2016 More... 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 Medications Discontinued During This Encounter traMADol (ULTRAM) 50 mg tablet 60 t* 0 06/08/2019 07/11/2019 Route: ORAL Sig: Take 1 tablet by mouth twice daily for 30 days. Disc: Reason for discontinue is not on file. Encounter Status:Closed by PRICILA STERN CMA on 07/11/19 abhishek on CNPTOUTREA Patient Outreach (INTMWS) Normal 0 07-11-2019 [place] [facility] GALILEO HUSTON ([id number]) 1935 [facility] Date Time Provider Department ([id number]) 07/11/19 NIECY GARCIA INTMWS During your visit today, we recorded the following informati on about you: Niecy Whitney RN 07/11/2019 10:43 AM Signed HIGH RISK CHRONIC DISEASE MONITORING Provider Action/FYI: Contact made with patient: Yes Patient identified by name and . Discussed care with patient Hi my name is Niecy Whitney RN and I am calling from the [facility] on behalf of your PCP, KERWIN Lee MD of the Covid-19 outbreak, I am calling to he lp make sure you are feeling well and that you have what you need to manage your well-being, since it is so important to stay home and take social distancing seriously to help protect your health at this time. If you have any health estee rns, we will come up with a plan on how to proceed. SYMPTOMS: I'd like to ask some question about how you are managing y our health. Would that be OK? Yes Do you have any new or worsening symptoms that you'd like to discuss with a provider? No symptoms - Continue outreach/phone call ACTION TAKEN: No Symptoms - Continue phone call MEDICATIONS: Do you have any questions ab out taking your medication or which medications you should be on? No Do you need any medication refills at this time, including a ny of the medications you might take only when needed? No ACTION TAKEN: No action required SOCIAL: We would like to make sure y ou have what you need so that your basics needs are met - including your personal safety, fo od, housing and medications. Would you like to speak with a social work sports team manager to help give you support for any of these needs? No It can be normal to feel anxious or down during a time lik e this. Would you like to talk to a mental health professional abo ut how you have been feeling? No ACTION TAKEN: No action taken STUCCO LABORER: Patient Harrison status is: Declined Thank you for taking the time to talk with me to day. We want to work with you to ensure that we are keeping your medical conditions well-controlled and to keep you healthy and out of the doctor's office or hospita . Our team would like to stay connected with you to make sure you are feeling well. I am inviting you to complete a short questionnaire th at will be sent to you via Surround App once a week for the next few weeks t o months. Surround App is the best way for us to communicate ab out your health and well-being in between physician visits and telephone calls. This questionnaire i s designed to check in on how you are feeling - and if certain symptom s are improving or getting worse. Your treatment team will review your answers and then follow up if we notice any concerning changes in your symptoms. The questionnaire will come to you through your Surround App account and will re place the need for us to call you each week. May I sign you up for this? No, reason: I don't have a smartphone or computer I understand. We can always sign you up in the future if you change your mind. Just as a reminder, will will continue to call you each we ek to check in on your health. Our calls should take 10 minutes or less, and we'll plan to call you weekly for the next few weeks to months while this outbreak continues to help make sure you stay well. Remember in the meantime , if you have concerns in between our calls, please call your PCP's office right aw ay. Thank you. 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 Ent er next patient outreach date for the following week on the same day of the week as julianna y in the Track Pt Outreach. At present, these are our recommendation s regarding the coronavirus (COVID-19) outbreak: ? Avoid public places as much as possible. ? Avoid close contact (within 6 feet) with others you don't live with, especially if they are sick. ? Stay home if you are sick. ? Wash your hands regularly for at least 20 seconds with soa p and water. ? Wear a cloth mask in public places to help reduce communit y spread. ? Do not go to your Doctor's office unless instructed to do so. For any non-emergency symptoms, call your Doctor's office to get instructions on how to manage (we might recommend a telephone or virtual visit). Fo r emergency symptoms, proceed to Emergen cy Department as usual but inform them of cough and fever symptoms WILLIAM if present (or call on the way if possib le). End outreach Allergies As of Date: 07/11/2019 Noted Allergy Reaction bandaids [Other] 09/30/2005 LIPITOR (ATORVASTATIN CALCIUM) 07/22/2016 17 - Myalgia LYRICA (PREGABALIN) 11/30/2010 1 - Mental Status Change NIACIN 11/30/2010 14 - Other: See Comments Comments: myalgia ZOCOR (SIMVASTATIN) 08/09/2011 14 - Other: See Comments Comments: myalgia Date Reviewed: 12/29/2018 Reviewed by: Heriberto Moncada LPN - Fully Assessed Reason for Visit: Community Monitoring Outreach [Other] Prescriptions as of 07/11/2019 Sig: TRAMADOL 50 MG TABLET Take 1 tablet by mouth twice * LISINOPRIL 10 MG TABLET Take 1 tablet by mouth once d* OMEPRAZOLE 20 MG CAPSULE,MANUEL* Take 1 capsule by mouth daily * COMPOUNDED PRESCRIPTION Knee High Compression Stockin* FUROSEMIDE 20 MG TABLET Take 0.5 tablets by mouth onc* DOXYCYCLINE MONOHYDRATE 100 M* Take 1 capsule by mouth twice * Patient not taking: Reported on 12/22/2018 LEVOTHYROXINE 125 MCG TABLET Take 1 tablet by mouth once d* FUROSEMIDE 20 MG TABLET Take 1 tablet by mouth twice * Patient taking differently: Take 40 mg by mouth once johan* CHOLESTYRAMINE (WITH SUGAR) 4* Take 4 g by mouth three times * Patient not taking: Reported on 10/10/2018 SPIRONOLACTONE 25 MG TABLET Take 1 tablet by mouth twice * Patient not taking: Reported on 12/22/2018 AMLODIPINE 5 MG TABLET Take 1 tablet by mouth once d* METOPROLOL TARTRATE 25 MG TAB* Take 0.5 tablets by mouth twi * COLACE ORAL Take 240 mg by mouth twice da* AMIODARONE 200 MG TABLET Take 1 tablet by mouth once d* APIXABAN 5 MG TABLET Take 1 tablet by mouth twice * CLOPIDOGREL 75 MG TABLET Take 1 tablet by mouth once d* MELATONIN 10 MG CAPSULE Take by mouth. CALCIUM CARBONATE 600 MG (1,5* Take 1 tablet by mouth once d * Patient not taking: Reported on 10/10/2018 NITROGLYCERIN 0.4 MG SUBLINGU* Dissolve 1 tablet under the t * MAGNESIUM 250 MG TABLET 2 tablets in the morning and * Patient not taking: Reported on 08/08/2018 * THERAPEUTIC MULTIVITAMIN TABL* Take one(1) tablet daily. * FISH OIL 1,200 MG-144 MG-216 * one capsule every other day Problem List As Of Date 07/11/2019 Noted Resolved Essential hypertension, benign [I10] 07/26/2005 More... 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 More... Sciatica [M54.30] 08/29/2006 03/02/2016 PUD (peptic ulcer disease) [K27.9] 12/18/2009 Mild cognitive impairment with memory loss [G31*07/03/2012 0 07/26/2017 Class 3 severe obesity due to excess calories w*07/03/2012 0 08/08/2018 Magnesium deficiency [E61.2] 12/03/2013 03/02/2016 ASHD (arteriosclerotic heart disease) [I25.10] 10/08/2014 Acute myocardial infarction (HCC) [I21.9] 10/08/2014 Moderate aortic stenosis [I35.0] 11/25/2014 08/08/2018 Moderate aortic valve insufficiency [I35.1] 11/25/201408/08 Arthritis of both hands [M19.041, M19.042] 03/03/2015 Chronic congestive heart failure (HCC) [I50.9] 03/03/2015 Impaired fasting glucose [R73.01] 03/04/2015 Gastroesophageal reflux disease with esophagiti*02/12/2016 History of aortic valve replacement [Z95.2] 03/02/2016 More... 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 Atrial fibrillation (HCC) [I48.91] 03/02/2016 More... 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 Author Type: Registered Nurse Type: Progress Notes Filed: 06/26/2019 1:45 PM Note Text: HIGH RISK CHRONIC DISEASE MONITORING Provider Action/FYI: Spk with Pt who noted did get out to [place] today for a shor t time with a mask, found it more difficult to breath with mask, but is ta tim careful precautions, denies needs or concerns, request call in 2 wee ks. Contact made with patient: Yes Patient identified by name and . Discussed care with patient Hi my name is Khushboo Sanderson RN and I am calling from [facility] on behalf of your PCP, Adair Rodriguez III MD Because of the Covid-19 outbreak, I am calling to help make sure you are fe eling well and that you have what you need to manage your well-being, since it is so important to stay home and take social distancing seriously to help protect your health at this time. If you have any health con cerns, we will come up with a plan on how to proceed. SYMPTOMS: I'd like to ask some question about how you are managing you r health. Would that be OK? Yes Do you have any new or worsening symptoms that you'd like to discuss with a provider? No symptoms - Continue outreach/phone call ACTION TAKEN: No Symptoms - Continue phone call MEDICATIONS: Do you have any questions about taking your medication or wh ich medications you should be on? No Do you need any medication refills at this time, including a ny of the medications you might take only when needed? No ACTION TAKEN: No action required SOCIAL: We would like to make sure you have what you need so that yo ur basics needs are met - including your personal safety, food, housin g and medications. Would you like to speak with a social work sports team manager to help give you support for any of these needs? No It can be normal to feel anxious or down during a time like this. Would you like to talk to a mental health professional about how y ou have been feeling? No ACTION TAKEN: No action taken Thank you for taking the time to talk with me today. We want to work with you to ensure that we are keeping your medical conditions we ll-controlled and to keep you healthy and out of the doctor's office or [facility]. Our team would like to stay connected with you to make sure you are feeling well. Our calls should take 10 minutes or less, and we'll pl an to call you weekly for the next few weeks to months while this outbreak continues to help make sure you stay well. Remember in the meantime, if y ou have concerns in between our calls, please call your PCP's office right away. Thank you. At present, these are our recommendations regarding the ruth navirus (COVID-19) outbreak: ? Avoid public places as much as possible. ? Avoid close contact (within 6 feet) with others you don't live with, especially if they are sick. ? Stay home if you are sick. ? Wash your hands regularly for at least 20 seconds with soa p and water. ? Wear a cloth mask in public places to help reduce communit y spread. ? Do not go to your Doctor's office unless instructed to do so. For any non-emergency symptoms, call your Doctor's office to get ins tructions on how to manage (we might recommend a telephone or virtual vis it). For emergency symptoms, proceed to Emergency Department as usual but inform them of cough and fever symptoms WILLIAM if present (or call on the way if possible). Enter next patient outreach date for the following week on t he same day of the week as today in the Track Pt Outreach section. Khushboo Sanderson RN June 26, 2019 1:42 PM cnptoutreach on CNPTOUTREACH Patient Outreach (FAMPWS) Normal 0 06-26-2019 [place] [facility] GALILEO HUSTON ([id number]) 1935 [address] [facility] Time Provider Department ([id number]) 06/26/19 KIN CUELLO (RN) FAMPWS During your visit today, we recorded the following informati on about you: Khushboo Sanderson RN 06/26/2019 1:45 PM Signed HIGH RISK CHRONIC DISEASE MONITORING Provider Action/FYI: Spk with Pt who noted did ge t out to [employer] today for a short time with a mask, found it more difficult to b reath with mask, but is taking careful precautions, denies needs or concerns, request call in 2 weeks. Contact made with patient: Yes Patient identified by name and . Discussed care with patient Hi my name is Khushboo Sanderson RN and I am calling from the [facility] on behalf of your PCP, Adair Rodriguez, WALDEMAR Leija MD Because of the Covid-19 outbreak, I am calling to help make sure you are f eeling well and that you have what you need to manage your well-being, since it is so important to stay home and take social distancing seriously to help protect your healt h at this time. If you have any health concerns, we will come up with a plan on how to proceed. SYMPTOMS: I'd like to ask some question about how you are managing y our health. Would that be OK? Yes Do you have any new or worsening symptoms that you'd like to discuss with a provider? No symptoms - Continue outreach/phone call ACTION TAKEN: No Symptoms - Continue phone call MEDICATIONS: Do you have any questions ab out taking your medication or which medications you should be on? No Do you need any medication refills at this time, including a ny of the medications you might take only when needed? No ACTION TAKEN: No action required SOCIAL: We would like to make sure y ou have what you need so that your basics needs are met - including your personal safety, fo od, housing and medications. Would you like to speak with a social work sports team manager to help give you support for any of these needs? No It can be normal to feel anxious or down during a time lik e this. Would you like to talk to a mental health professional abo ut how you have been feeling? No ACTION TAKEN: No action taken Thank you for taking the time to talk with me to day. We want to work with you to ensure that we are keeping your medical conditions well-controlled and to keep you healthy and out of the doctor's office or [facility]. Our team would like to stay connected with you to make sure you are f eeling well. Our calls should take 10 minutes or less, and we'l l plan to call you weekly for the next few weeks to months while this outbreak continues to h elp make sure you stay well. Remember in the meantime, if you have concerns in betw een our calls, please call your PCP's office right away. Thank you. At present, these are our recommendation s regarding the coronavirus (COVID-19) outbreak: ? Avoid public places as much as possible. ? Avoid close contact (within 6 feet) with others you don't live with, especially if they are sick. ? Stay home if you are sick. ? Wash your hands regularly for at least 20 seconds with soa p and water. ? Wear a cloth mask in public places to help reduce communit y spread. ? Do not go to your Doctor's office unless instructed to do so. For any non-emergency symptoms, call your Doctor's office to get instructions on how to manage (we might recommend a telephone or virtual visit). Fo r emergency symptoms, proceed to Emergen cy Department as usual but inform them of cough and fever symptoms WILLIAM if present (or call on the way if possib le). Enter next patient outreach date for the following week on the same day of the week as today in the Track Pt Outreach section. Khushboo Sanderson RN June 26, 2019 1:42 PM Allergies As of Date: 06/26/2019 Noted Allergy Reaction bandaids [Other] 09/30/2005 LIPITOR (ATORVASTATIN CALCIUM) 07/22/2016 17 - Myalgia LYRICA (PREGABALIN) 11/30/2010 1 - Mental Status Change NIACIN 11/30/2010 14 - Other: See Comments Comments: myalgia ZOCOR (SIMVASTATIN) 08/09/2011 14 - Other: See Comments Comments: myalgia Date Reviewed: 12/29/2018 Reviewed by: Heriberto Moncada LPN - Fully Assessed Reason for Visit: Community Monitoring Outreach [Other] Cmt: Outreach 4 Prescriptions as of 06/26/2019 Sig: TRAMADOL 50 MG TABLET Take 1 tablet by mouth twice * LISINOPRIL 10 MG TABLET Take 1 tablet by mouth once d* OMEPRAZOLE 20 MG CAPSULE,MANUEL* Take 1 capsule by mouth daily * COMPOUNDED PRESCRIPTION Knee High Compression Stockin* FUROSEMIDE 20 MG TABLET Take 0.5 tablets by mouth onc* DOXYCYCLINE MONOHYDRATE 100 M* Take 1 capsule by mouth twice * Patient not taking: Reported on 12/22/2018 LEVOTHYROXINE 125 MCG TABLET Take 1 tablet by mouth once d* FUROSEMIDE 20 MG TABLET Take 1 tablet by mouth twice * Patient taking differently: Take 40 mg by mouth once johan* CHOLESTYRAMINE (WITH SUGAR) 4* Take 4 g by mouth three times * Patient not taking: Reported on 10/10/2018 SPIRONOLACTONE 25 MG TABLET Take 1 tablet by mouth twice * Patient not taking: Reported on 12/22/2018 AMLODIPINE 5 MG TABLET Take 1 tablet by mouth once d* METOPROLOL TARTRATE 25 MG TAB* Take 0.5 tablets by mouth twi * COLACE ORAL Take 240 mg by mouth twice da* AMIODARONE 200 MG TABLET Take 1 tablet by mouth once d* APIXABAN 5 MG TABLET Take 1 tablet by mouth twice * CLOPIDOGREL 75 MG TABLET Take 1 tablet by mouth once d* MELATONIN 10 MG CAPSULE Take by mouth. CALCIUM CARBONATE 600 MG (1,5* Take 1 tablet by mouth once d * Patient not taking: Reported on 10/10/2018 NITROGLYCERIN 0.4 MG SUBLINGU* Dissolve 1 tablet under the t * MAGNESIUM 250 MG TABLET 2 tablets in the morning and * Patient not taking: Reported on 08/08/2018 * THERAPEUTIC MULTIVITAMIN TABL* Take one(1) tablet daily. * FISH OIL 1,200 MG-144 MG-216 * one capsule every other day Problem List As Of Date 06/26/2019 Noted Resolved Essential hypertension, benign [I10] 07/26/2005 More... 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 More... Sciatica [M54.30] 08/29/2006 03/02/2016 PUD (peptic ulcer disease) [K27.9] 12/18/2009 Mild cognitive impairment with memory loss [G31*07/03/2012 0 07/26/2017 Class 3 severe obesity due to excess calories w*07/03/2012 0 08/08/2018 Magnesium deficiency [E61.2] 12/03/2013 03/02/2016 ASHD (arteriosclerotic heart disease) [I25.10] 10/08/2014 Acute myocardial infarction (HCC) [I21.9] 10/08/2014 Moderate aortic stenosis [I35.0] 11/25/2014 08/08/2018 Moderate aortic valve insufficiency [I35.1] 11/25/201408/08 Arthritis of both hands [M19.041, M19.042] 03/03/2015 Chronic congestive heart failure (HCC) [I50.9] 03/03/2015 Impaired fasting glucose [R73.01] 03/04/2015 Gastroesophageal reflux disease with esophagiti*02/12/2016 History of aortic valve replacement [Z95.2] 03/02/2016 More... 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 Atrial fibrillation (HCC) [I48.91] 03/02/2016 More... 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 Author Type: Optics Engineer Type: Progress Notes Filed: 06/19/2019 3:09 PM Note Text: HIGH RISK CHRONIC DISEASE MONITORING Provider Action/FYI: Call in 1 week Contact made with patient: Yes Patient identified by name and . Discussed care with patient Hi my name is REZA James and I am calling from the [facility] on behalf of your PCP, Adair Rodriguez I II MD Because of the Covid-19 outbreak, I am calling to help make sure you are feeling well and that you have what you need to manage your well-hernandez ng, since it is so important to stay home and take social distancing seri ously to help protect your health at this time. If you have any health con cerns, we will come up with a plan on how to proceed. SYMPTOMS: I'd like to ask some question about how you are managing you r health. Would that be OK? Yes Do you have any new or worsening symptoms that you'd like to discuss with a provider? No symptoms - Continue outreach/phone call ACTION TAKEN: No Symptoms - Continue phone call MEDICATIONS: Do you have any questions about taking your medication or wh ich medications you should be on? No Do you need any medication refills at this time, including a ny of the medications you might take only when needed? No ACTION TAKEN: No action required SOCIAL: We would like to make sure you have what you need so that yo ur basics needs are met - including your personal safety, food, housin g and medications. Would you like to speak with a social work sports team manager to help give you support for any of these needs? No It can be normal to feel anxious or down during a time like this. Would you like to talk to a mental health professional about how y ou have been feeling? No ACTION TAKEN: No action taken Thank you for taking the time to talk with me today. We want to work with you to ensure that we are keeping your medical conditions we ll-controlled and to keep you healthy and out of the doctor's office or [facility]. Our team would like to stay connected with you to make sure you are feeling well. Our calls should take 10 minutes or less, and we'll pl an to call you weekly for the next few weeks to months while this outbreak continues to help make sure you stay well. Remember in the meantime, if y ou have concerns in between our calls, please call your PCP's office right away. Thank you. At present, these are our recommendations regarding the ruth navirus (COVID-19) outbreak: ? Avoid public places as much as possible. ? Avoid close contact (within 6 feet) with others you don't live with, especially if they are sick. ? Stay home if you are sick. ? Wash your hands regularly for at least 20 seconds with soa p and water. ? Wear a cloth mask in public places to help reduce communit y spread. ? Do not go to your Doctor's office unless instructed to do so. For any non-emergency symptoms, call your Doctor's office to get ins tructions on how to manage (we might recommend a telephone or virtual vis it). For emergency symptoms, proceed to Emergency Department as usual but inform them of cough and fever symptoms WILLIAM if present (or call on the way if possible). Enter next patient outreach date for the following week on t he same day of the week as today in the Track Pt Outreach section. cnptoutreach on CNPTOUTREACH Patient Outreach (FAMPWS) Normal 0 06-19-2019 [place] [facility] GALILEO HUSTON ([id number]) 1935 F [place] Date Time Provider Department ([id number]) 06/19/19 DANIA FONG (NETWORK NAVIGATOR)SKYLERPWS During your visit today, we recorded the following informati on about you: REZA JamesATOR 06/19/2019 3:09 PM Signed HIGH RISK CHRONIC DISEASE MONITORING Provider Action/FYI: Call in 1 week Contact made with patient: Yes Patient identified by name and . Discussed care with patient Hi my name is REZA James and I am calling from the [facility] on behalf of your PCP, Adair Rodriguez III MD Because of the Covid-19 outbreak, I am call ing to help make sure you are feeling well and that you have what you need to manage your well-being , since it is so important to stay home and take social distancing seriously t o help protect your health at this time. If you have any health concer ns, we will come up with a plan on how to proceed. SYMPTOMS: I'd like to ask some question about how you are managing y our health. Would that be OK? Yes Do you have any new or worsening symptoms that you'd like to discuss with a provider? No symptoms - Continue outreach/phone call ACTION TAKEN: No Symptoms - Continue phone call MEDICATIONS: Do you have any questions ab out taking your medication or which medications you should be on? No Do you need any medication refills at this time, including a ny of the medications you might take only when needed? No ACTION TAKEN: No action required SOCIAL: We would like to make sure y ou have what you need so that your basics needs are met - including your personal safety, fo od, housing and medications. Would you like to speak with a social work sports team manager to help give you support for any of these needs? No It can be normal to feel anxious or down during a time lik e this. Would you like to talk to a mental health professional abo ut how you have been feeling? No ACTION TAKEN: No action taken Thank you for taking the time to talk with me to day. We want to work with you to ensure that we are keeping your medical conditions well-controlled and to keep you healthy and out of the doctor's office or [facility]. Our team would like to stay connected with you to make sure you are f eeling well. Our calls should take 10 minutes or less, and we'l l plan to call you weekly for the next few weeks to months while this outbreak continues to h elp make sure you stay well. Remember in the meantime, if you have concerns in betw een our calls, please call your PCP's office right away. Thank you. At present, these are our recommendation s regarding the coronavirus (COVID-19) outbreak: ? Avoid public places as much as possible. ? Avoid close contact (within 6 feet) with others you don't live with, especially if they are sick. ? Stay home if you are sick. ? Wash your hands regularly for at least 20 seconds with soa p and water. ? Wear a cloth mask in public places to help reduce communit y spread. ? Do not go to your Doctor's office unless instructed to do so. For any non-emergency symptoms, call your Doctor's office to get instructions on how to manage (we might recommend a telephone or virtual visit). Fo r emergency symptoms, proceed to Emergen cy Department as usual but inform them of cough and fever symptoms WILLIAM if present (or call on the way if possib le). Enter next patient outreach date for the following week on the same day of the week as today in the Track Pt Outreach section. Allergies As of Date: 06/19/2019 Noted Allergy Reaction bandaids [Other] 09/30/2005 LIPITOR (ATORVASTATIN CALCIUM) 07/22/2016 17 - Myalgia LYRICA (PREGABALIN) 11/30/2010 1 - Mental Status Change NIACIN 11/30/2010 14 - Other: See Comments Comments: myalgia ZOCOR (SIMVASTATIN) 08/09/2011 14 - Other: See Comments Comments: myalgia Date Reviewed: 12/29/2018 Reviewed by: Heriberto Moncada LPN - Fully Assessed Reason for Visit: community monitoring outreach [Other] Cmt: week 3 Prescriptions as of 06/19/2019 Sig: TRAMADOL 50 MG TABLET Take 1 tablet by mouth twice * LISINOPRIL 10 MG TABLET Take 1 tablet by mouth once d* OMEPRAZOLE 20 MG CAPSULE,MANUEL* Take 1 capsule by mouth daily * COMPOUNDED PRESCRIPTION Knee High Compression Stockin* FUROSEMIDE 20 MG TABLET Take 0.5 tablets by mouth onc* DOXYCYCLINE MONOHYDRATE 100 M* Take 1 capsule by mouth twice * Patient not taking: Reported on 12/22/2018 LEVOTHYROXINE 125 MCG TABLET Take 1 tablet by mouth once d* FUROSEMIDE 20 MG TABLET Take 1 tablet by mouth twice * Patient taking differently: Take 40 mg by mouth once johan* CHOLESTYRAMINE (WITH SUGAR) 4* Take 4 g by mouth three times * Patient not taking: Reported on 10/10/2018 SPIRONOLACTONE 25 MG TABLET Take 1 tablet by mouth twice * Patient not taking: Reported on 12/22/2018 AMLODIPINE 5 MG TABLET Take 1 tablet by mouth once d* METOPROLOL TARTRATE 25 MG TAB* Take 0.5 tablets by mouth twi * COLACE ORAL Take 240 mg by mouth twice da* AMIODARONE 200 MG TABLET Take 1 tablet by mouth once d* APIXABAN 5 MG TABLET Take 1 tablet by mouth twice * CLOPIDOGREL 75 MG TABLET Take 1 tablet by mouth once d* MELATONIN 10 MG CAPSULE Take by mouth. CALCIUM CARBONATE 600 MG (1,5* Take 1 tablet by mouth once d * Patient not taking: Reported on 10/10/2018 NITROGLYCERIN 0.4 MG SUBLINGU* Dissolve 1 tablet under the t * MAGNESIUM 250 MG TABLET 2 tablets in the morning and * Patient not taking: Reported on 08/08/2018 * THERAPEUTIC MULTIVITAMIN TABL* Take one(1) tablet daily. * FISH OIL 1,200 MG-144 MG-216 * one capsule every other day Problem List As Of Date 06/19/2019 Noted Resolved Essential hypertension, benign [I10] 07/26/2005 More... 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 More... Sciatica [M54.30] 08/29/2006 03/02/2016 PUD (peptic ulcer disease) [K27.9] 12/18/2009 Mild cognitive impairment with memory loss [G31*07/03/2012 0 07/26/2017 Class 3 severe obesity due to excess calories w*07/03/2012 0 08/08/2018 Magnesium deficiency [E61.2] 12/03/2013 03/02/2016 ASHD (arteriosclerotic heart disease) [I25.10] 10/08/2014 Acute myocardial infarction (HCC) [I21.9] 10/08/2014 Moderate aortic stenosis [I35.0] 11/25/2014 08/08/2018 Moderate aortic valve insufficiency [I35.1] 11/25/201408/08 Arthritis of both hands [M19.041, M19.042] 03/03/2015 Chronic congestive heart failure (HCC) [I50.9] 03/03/2015 Impaired fasting glucose [R73.01] 03/04/2015 Gastroesophageal reflux disease with esophagiti*02/12/2016 History of aortic valve replacement [Z95.2] 03/02/2016 More... 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 Atrial fibrillation (HCC) [I48.91] 03/02/2016 More... 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 Author Type: Optics Engineer Type: Progress Notes Filed: 06/11/2019 4:14 PM Note Text: HIGH RISK CHRONIC DISEASE MONITORING Provider Action/FYI: Contact made with patient: Yes Patient identified by name and . Discussed care with patient Hi my name is Ronna Davis, NETWORK NAVIGATOR and I am ilan rodgers from the [facility] on behalf of your PCP, KERWIN Lee Because of the Covid-19 outbreak, I am calling to help make sure you ar e feeling well and that you have what you need to manage your well-being, s romulo it is so important to stay home and take social distancing seriously to help protect your health at this time. If you have any health con cerns, we will come up with a plan on how to proceed. SYMPTOMS: I'd like to ask some question about how you are managing you r health. Would that be OK? Yes Do you have any new or worsening symptoms that you'd like to discuss with a provider? No symptoms - Continue outreach/phone call ACTION TAKEN: No Symptoms - Continue phone call MEDICATIONS: Do you have any questions about taking your medication or wh ich medications you should be on? No Do you need any medication refills at this time, including a ny of the medications you might take only when needed? No ACTION TAKEN: No action required SOCIAL: We would like to make sure you have what you need so that yo ur basics needs are met - including your personal safety, food, housin g and medications. Would you like to speak with a social work sports team manager to help give you support for any of these needs? No It can be normal to feel anxious or down during a time like this. Would you like to talk to a mental health professional about how y ou have been feeling? No ACTION TAKEN: No action taken Thank you for taking the time to talk with me today. We want to work with you to ensure that we are keeping your medical conditions we ll-controlled and to keep you healthy and out of the doctor's office or [facility]. Our team would like to stay connected with you to make sure you are feeling well. Our calls should take 10 minutes or less, and we'll pl an to call you weekly for the next few weeks to months while this outbreak continues to help make sure you stay well. Remember in the meantime, if y ou have concerns in between our calls, please call your PCP's office right away. Thank you. At present, these are our recommendations regarding the ruth navirus (COVID-19) outbreak: ? Avoid public places as much as possible. ? Avoid close contact (within 6 feet) with others you don't live with, especially if they are sick. ? Stay home if you are sick. ? Wash your hands regularly for at least 20 seconds with soa p and water. ? Wear a cloth mask in public places to help reduce communit y spread. ? Do not go to your Doctor's office unless instructed to do so. For any non-emergency symptoms, call your Doctor's office to get ins tructions on how to manage (we might recommend a telephone or virtual vis it). For emergency symptoms, proceed to Emergency Department as usual but inform them of cough and fever symptoms WILLIAM if present (or call on the way if possible). Enter next patient outreach date for the following week on t he same day of the week as today in the Track Pt Outreach section. PROGRESS HNO ID: [id number] Normal 06-11-2019 [facility] Author: Claudette Mahajan [place] ([id number]) Service: ? Author Type: ? Type: Progress Notes Filed: 06/11/2019 2:48 PM Note Text: HIGH RISK CHRONIC DISEASE MONITORING Provider Action/FYI: Left message, will call next week Contact made with patient: No - Left message - Hi my name is Claudette Mahajan and I am calling from the [facility] on be half of your PCP, Adair Rodriguez III MD Because of the COVID-19 outbreak, we were calling to help make sure you are feeling well and have what you need to manage your well-being. If you'd like to call us back to [facility] in, you can reach us at during business hours Tuesday- Tuesday 8:00AM-4:30PM. If not, we will call you next week. If you vieira ve an urgent need, please contact your PCP's office. Thank you. Entered n ext patient outreach date for the following week on the same business da y of the week using Track Pt Outreach. End outreach. Outreach ended cnptoutreach on CNPTOUTREACH Patient Outreach (NETNAV) Normal 0 06-11-2019 [place] [facility] GALILEO HUSTON ([id number]) 1935 F NFR [place] Date Time Provider Department ([id number]) 06/11/19 RONNA DAVIS (NETWORK NAVIGATOR)CATE During your visit today, we recorded the following informati on about you: REZA Chauhan 06/11/2019 4:14 PM Signed HIGH RISK CHRONIC DISEASE MONITORING Provider Action/FYI: Contact made with patient: Yes Patient identified by name and . Discussed care with patient Hi my name is REZA Chauhan and I am callin g from the [facility] on behalf of your PCP, Adair Rodriguez III MD Because of the Covid-19 outbreak, I am call ing to help make sure you are feeling well and that you have what you need to manage your well-being , since it is so important to stay home and take social distancing seriously t o help protect your health at this time. If you have any health concer ns, we will come up with a plan on how to proceed. SYMPTOMS: I'd like to ask some question about how you are managing y our health. Would that be OK? Yes Do you have any new or worsening symptoms that you'd like to discuss with a provider? No symptoms - Continue outreach/phone call ACTION TAKEN: No Symptoms - Continue phone call MEDICATIONS: Do you have any questions ab out taking your medication or which medications you should be on? No Do you need any medication refills at this time, including a ny of the medications you might take only when needed? No ACTION TAKEN: No action required SOCIAL: We would like to make sure y ou have what you need so that your basics needs are met - including your personal safety, fo od, housing and medications. Would you like to speak with a social work sports team manager to help give you support for any of these needs? No It can be normal to feel anxious or down during a time lik e this. Would you like to talk to a mental health professional abo ut how you have been feeling? No ACTION TAKEN: No action taken Thank you for taking the time to talk with me to day. We want to work with you to ensure that we are keeping your medical conditions well-controlled and to keep you healthy and out of the doctor's office or [facility]. Our team would like to stay connected with you to make sure you are f eeling well. Our calls should take 10 minutes or less, and we'l l plan to call you weekly for the next few weeks to months while this outbreak continues to h elp make sure you stay well. Remember in the meantime, if you have concerns in betw een our calls, please call your PCP's office right away. Thank you. At present, these are our recommendation s regarding the coronavirus (COVID-19) outbreak: ? Avoid public places as much as possible. ? Avoid close contact (within 6 feet) with others you don't live with, especially if they are sick. ? Stay home if you are sick. ? Wash your hands regularly for at least 20 seconds with soa p and water. ? Wear a cloth mask in public places to help reduce communit y spread. ? Do not go to your Doctor's office unless instructed to do so. For any non-emergency symptoms, call your Doctor's office to get instructions on how to manage (we might recommend a telephone or virtual visit). Fo r emergency symptoms, proceed to Emergen cy Department as usual but inform them of cough and fever symptoms WILLIAM if present (or call on the way if possib le). Enter next patient outreach date for the following week on the same day of the week as today in the Track Pt Outreach section. Allergies As of Date: 06/11/2019 Noted Allergy Reaction bandaids [Other] 09/30/2005 LIPITOR (ATORVASTATIN CALCIUM) 07/22/2016 17 - Myalgia LYRICA (PREGABALIN) 11/30/2010 1 - Mental Status Change NIACIN 11/30/2010 14 - Other: See Comments Comments: myalgia ZOCOR (SIMVASTATIN) 08/09/2011 14 - Other: See Comments Comments: myalgia Date Reviewed: 12/29/2018 Reviewed by: Heriberto Moncada LPN - Fully Assessed Reason for Visit: Community Monitoring Outreach [Other] Prescriptions as of 06/11/2019 Sig: TRAMADOL 50 MG TABLET Take 1 tablet by mouth twice * LORAZEPAM 0.5 MG TABLET Take 1 tablet by mouth once d* LISINOPRIL 10 MG TABLET Take 1 tablet by mouth once d* OMEPRAZOLE 20 MG CAPSULE,MANUEL* Take 1 capsule by mouth daily * COMPOUNDED PRESCRIPTION Knee High Compression Stockin* FUROSEMIDE 20 MG TABLET Take 0.5 tablets by mouth onc* DOXYCYCLINE MONOHYDRATE 100 M* Take 1 capsule by mouth twice * Patient not taking: Reported on 12/22/2018 LEVOTHYROXINE 125 MCG TABLET Take 1 tablet by mouth once d* FUROSEMIDE 20 MG TABLET Take 1 tablet by mouth twice * Patient taking differently: Take 40 mg by mouth once johan* CHOLESTYRAMINE (WITH SUGAR) 4* Take 4 g by mouth three times * Patient not taking: Reported on 10/10/2018 SPIRONOLACTONE 25 MG TABLET Take 1 tablet by mouth twice * Patient not taking: Reported on 12/22/2018 AMLODIPINE 5 MG TABLET Take 1 tablet by mouth once d* METOPROLOL TARTRATE 25 MG TAB* Take 0.5 tablets by mouth twi * COLACE ORAL Take 240 mg by mouth twice da* AMIODARONE 200 MG TABLET Take 1 tablet by mouth once d* APIXABAN 5 MG TABLET Take 1 tablet by mouth twice * CLOPIDOGREL 75 MG TABLET Take 1 tablet by mouth once d* MELATONIN 10 MG CAPSULE Take by mouth. CALCIUM CARBONATE 600 MG (1,5* Take 1 tablet by mouth once d * Patient not taking: Reported on 10/10/2018 NITROGLYCERIN 0.4 MG SUBLINGU* Dissolve 1 tablet under the t * MAGNESIUM 250 MG TABLET 2 tablets in the morning and * Patient not taking: Reported on 08/08/2018 * THERAPEUTIC MULTIVITAMIN TABL* Take one(1) tablet daily. * FISH OIL 1,200 MG-144 MG-216 * one capsule every other day Problem List As Of Date 06/11/2019 Noted Resolved Essential hypertension, benign [I10] 07/26/2005 More... 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 More... Sciatica [M54.30] 08/29/2006 03/02/2016 PUD (peptic ulcer disease) [K27.9] 12/18/2009 Mild cognitive impairment with memory loss [G31*07/03/2012 0 07/26/2017 Class 3 severe obesity due to excess calories w*07/03/2012 0 08/08/2018 Magnesium deficiency [E61.2] 12/03/2013 03/02/2016 ASHD (arteriosclerotic heart disease) [I25.10] 10/08/2014 Acute myocardial infarction (HCC) [I21.9] 10/08/2014 Moderate aortic stenosis [I35.0] 11/25/2014 08/08/2018 Moderate aortic valve insufficiency [I35.1] 11/25/201408/08 Arthritis of both hands [M19.041, M19.042] 03/03/2015 Chronic congestive heart failure (HCC) [I50.9] 03/03/2015 Impaired fasting glucose [R73.01] 03/04/2015 Gastroesophageal reflux disease with esophagiti*02/12/2016 History of aortic valve replacement [Z95.2] 03/02/2016 More... 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 Atrial fibrillation (HCC) [I48.91] 03/02/2016 More... 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*07/12/2017 0 08/08/2018 Hypothyroidism, acquired [E03.9] 07/12/2017 CKD (chronic kidney disease) stage 3, GFR 30-59*07/12/2017 Chronic anxiety [F41.9] 11/09/2017 Encounter Status:Closed by [facility]NA on 06/11/19 CNPTOUTREA [facility] Normal 0 06-11-2019 [facility] GALILEO HUSTON ([id number]) 1935 F NFR [facility] Time Provider Department ([id number]) 06/11/19 ADAIR RODRIGUEZ III During your visit today, we recorded the following informati on about you: Claudette Cope Pss 06/11/2019 2:48 PM Signed HIGH RISK CHRONIC DISEASE MONITORING Provider Action/FYI: Left message, will call next week Contact made with patient: No - Left mes patti - Hi my name is Claudette Cope Pss and I am calling from the [facility] o n behalf of your PCP, Adair Rodriguez III MD Because of the COVID-19 outbreak, we wer e calling to help make sure you are feeling well and have what you need to manage your well-being. If you'd like to call us back to check in, you can reach us at during business hours Tuesday-Tuesday 8:00AM-4:30PM. If not, we will call you next week. If you have an urgent need, please contact your P CP's office. Thank you. Entered next patient outreach date for the on the same business day of the week using Track Pt Outreach. Mercedes sandoval. Outreach ended Allergies As of Date: 06/11/2019 Noted Allergy Reaction bandaids [Other] 09/30/2005 LIPITOR (ATORVASTATIN CALCIUM) 07/22/2016 17 - Myalgia LYRICA (PREGABALIN) 11/30/2010 1 - Mental Status Change NIACIN 11/30/2010 14 - Other: See Comments Comments: myalgia ZOCOR (SIMVASTATIN) 08/09/2011 14 - Other: See Comments Comments: myalgia Date Reviewed: 12/29/2018 Reviewed by: Heriberto Moncada LPN - Fully Assessed Reason for Visit: community monitoring outreach [Other] Cmt: week 1 Prescriptions as of 06/11/2019 Sig: TRAMADOL 50 MG TABLET Take 1 tablet by mouth twice * LORAZEPAM 0.5 MG TABLET Take 1 tablet by mouth once d* LISINOPRIL 10 MG TABLET Take 1 tablet by mouth once d* OMEPRAZOLE 20 MG CAPSULE,MANUEL* Take 1 capsule by mouth daily * COMPOUNDED PRESCRIPTION Knee High Compression Stockin* FUROSEMIDE 20 MG TABLET Take 0.5 tablets by mouth onc* DOXYCYCLINE MONOHYDRATE 100 M* Take 1 capsule by mouth twice * Patient not taking: Reported on 12/22/2018 LEVOTHYROXINE 125 MCG TABLET Take 1 tablet by mouth once d* FUROSEMIDE 20 MG TABLET Take 1 tablet by mouth twice * Patient taking differently: Take 40 mg by mouth once johan* CHOLESTYRAMINE (WITH SUGAR) 4* Take 4 g by mouth three times * Patient not taking: Reported on 10/10/2018 SPIRONOLACTONE 25 MG TABLET Take 1 tablet by mouth twice * Patient not taking: Reported on 12/22/2018 AMLODIPINE 5 MG TABLET Take 1 tablet by mouth once d* METOPROLOL TARTRATE 25 MG TAB* Take 0.5 tablets by mouth twi * COLACE ORAL Take 240 mg by mouth twice da* AMIODARONE 200 MG TABLET Take 1 tablet by mouth once d* APIXABAN 5 MG TABLET Take 1 tablet by mouth twice * CLOPIDOGREL 75 MG TABLET Take 1 tablet by mouth once d* MELATONIN 10 MG CAPSULE Take by mouth. CALCIUM CARBONATE 600 MG (1,5* Take 1 tablet by mouth once d * Patient not taking: Reported on 10/10/2018 NITROGLYCERIN 0.4 MG SUBLINGU* Dissolve 1 tablet under the t * MAGNESIUM 250 MG TABLET 2 tablets in the morning and * Patient not taking: Reported on 08/08/2018 * THERAPEUTIC MULTIVITAMIN TABL* Take one(1) tablet daily. * FISH OIL 1,200 MG-144 MG-216 * one capsule every other day Problem List As Of Date 06/11/2019 Noted Resolved Essential hypertension, benign [I10] 07/26/2005 More... 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 More... Sciatica [M54.30] 08/29/2006 03/02/2016 PUD (peptic ulcer disease) [K27.9] 12/18/2009 Mild cognitive impairment with memory loss [G31*07/03/2012 0 07/26/2017 Class 3 severe obesity due to excess calories w*07/03/2012 0 08/08/2018 Magnesium deficiency [E61.2] 12/03/2013 03/02/2016 ASHD (arteriosclerotic heart disease) [I25.10] 10/08/2014 Acute myocardial infarction (HCC) [I21.9] 10/08/2014 Moderate aortic stenosis [I35.0] 11/25/2014 08/08/2018 Moderate aortic valve insufficiency [I35.1] 11/25/201408/08 Arthritis of both hands [M19.041, M19.042] 03/03/2015 Chronic congestive heart failure (HCC) [I50.9] 03/03/2015 Impaired fasting glucose [R73.01] 03/04/2015 Gastroesophageal reflux disease with esophagiti*02/12/2016 History of aortic valve replacement [Z95.2] 03/02/2016 More... 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 Atrial fibrillation (HCC) [I48.91] 03/02/2016 More... 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*07/12/2017 0 08/08/2018 Hypothyroidism, acquired [E03.9] 07/12/2017 CKD (chronic kidney disease) stage 3, GFR 30-59*07/12/2017 Chronic anxiety [F41.9] 11/09/2017 Encounter Status:Closed by CLAUDETTE PATEL on 06/11/19 obsolete on 2019-05 OBSOLETE Refill (FAMPWS) Normal 06-08-2019 [place] GALILEO [place] ([id number]) 1935 F NFR [place] Date Time Provider Department ([id number]) 06/08/19 ADAIR RODRIGUEZ III During your visit today, we recorded the following informati on about you: Vaishnavi Pastor RN 06/08/2019 4:47 PM Signed Patient phones requesting refills as follows: Pending Prescriptions Disp Refills TRAMADOL 50 MG TABLET 60 tablet 0 Sig: Take 1 tablet by mouth twice daily for 30 days. RADHA Class: C-IV COSME: No Verified pharmacy Last office visit 05-29-2019 Please review and advise. 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] Order(s):traMADol (ULTRAM) 50 mg tabletTake 1 ta blet by mouth twice daily for 30 days.Disp: 60 tabletRfl: 0 Prescriptions as of 06/08/2019 Sig: TRAMADOL 50 MG TABLET Take 1 tablet by mouth twice * LORAZEPAM 0.5 MG TABLET Take 1 tablet by mouth once d* LISINOPRIL 10 MG TABLET Take 1 tablet by mouth once d* OMEPRAZOLE 20 MG CAPSULE,MANUEL* Take 1 capsule by mouth daily * COMPOUNDED PRESCRIPTION Knee High Compression Stockin* FUROSEMIDE 20 MG TABLET Take 0.5 tablets by mouth onc* DOXYCYCLINE MONOHYDRATE 100 M* Take 1 capsule by mouth twice * Patient not taking: Reported on 12/22/2018 LEVOTHYROXINE 125 MCG TABLET Take 1 tablet by mouth once d* FUROSEMIDE 20 MG TABLET Take 1 tablet by mouth twice * Patient taking differently: Take 40 mg by mouth once johan* CHOLESTYRAMINE (WITH SUGAR) 4* Take 4 g by mouth three times * Patient not taking: Reported on 10/10/2018 SPIRONOLACTONE 25 MG TABLET Take 1 tablet by mouth twice * Patient not taking: Reported on 12/22/2018 AMLODIPINE 5 MG TABLET Take 1 tablet by mouth once d* METOPROLOL TARTRATE 25 MG TAB* Take 0.5 tablets by mouth twi * COLACE ORAL Take 240 mg by mouth twice da* AMIODARONE 200 MG TABLET Take 1 tablet by mouth once d* APIXABAN 5 MG TABLET Take 1 tablet by mouth twice * CLOPIDOGREL 75 MG TABLET Take 1 tablet by mouth once d* MELATONIN 10 MG CAPSULE Take by mouth. CALCIUM CARBONATE 600 MG (1,5* Take 1 tablet by mouth once d * Patient not taking: Reported on 10/10/2018 NITROGLYCERIN 0.4 MG SUBLINGU* Dissolve 1 tablet under the t * MAGNESIUM 250 MG TABLET 2 tablets in the morning and * Patient not taking: Reported on 08/08/2018 * THERAPEUTIC MULTIVITAMIN TABL* Take one(1) tablet daily. * FISH OIL 1,200 MG-144 MG-216 * one capsule every other day Problem List As Of Date 06/08/2019 Noted Resolved Essential hypertension, benign [I10] 07/26/2005 More... 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 More... Sciatica [M54.30] 08/29/2006 03/02/2016 PUD (peptic ulcer disease) [K27.9] 12/18/2009 Mild cognitive impairment with memory loss [G31*07/03/2012 0 07/26/2017 Class 3 severe obesity due to excess calories w*07/03/2012 0 08/08/2018 Magnesium deficiency [E61.2] 12/03/2013 03/02/2016 ASHD (arteriosclerotic heart disease) [I25.10] 10/08/2014 Acute myocardial infarction (HCC) [I21.9] 10/08/2014 Moderate aortic stenosis [I35.0] 11/25/2014 08/08/2018 Moderate aortic valve insufficiency [I35.1] 11/25/201408/08 Arthritis of both hands [M19.041, M19.042] 03/03/2015 Chronic congestive heart failure (HCC) [I50.9] 03/03/2015 Impaired fasting glucose [R73.01] 03/04/2015 Gastroesophageal reflux disease with esophagiti*02/12/2016 History of aortic valve replacement [Z95.2] 03/02/2016 More... 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 Atrial fibrillation (HCC) [I48.91] 03/02/2016 More... 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 Medications Discontinued During This Encounter traMADol (ULTRAM) 50 mg tablet 60 t* 0 05/07/2019 06/08/2019 Route: ORAL Sig: Take 1 tablet by mouth twice daily for 30 days. Disc: Reason for discontinue is not on file. Encounter Status:Closed by ADAIR RODRIGUEZ III, MD on 06/08/19 progress on 2019-05 PROGRESS HNO ID: [id number] Normal 05-29-2019 [facility] Author: Adair Rodriguez III [place] ([id number]) Service: ? Author Type: Physician Type: Progress Notes Filed: 05/29/2019 3:09 PM Note Text: This Team Access Model visit is a phone encounter. It requir ed patient-provider interaction for the medical decision making as documented below. called patient at [phone] SUBJECTIVE: This is a 84 year old female that is here today for ER Follow Up. 05/26/19. Records reviewed. Dx vasovagal syncope, anxiety Hx atrial fib . She is still worried that she has COVID. She developed abd c ramping with dry heaves- sudden onset on 4/11. Diaphoresis, emesis, then numbness of legs while sitting on commode. . Dyspnea-I could not breath e. While in ER she had a lot of diarrhea, weakness, and unstead y on feet. No chest pain. Since ER she has felt better, but is still weak. Able to adv ance diet gradually. Admits to having a lot of anxiety, especially wit h Covid concerns No hx of gallbladder disease. 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 - Atrial fibrillation ([facility]) 03/02/2016 following CABG and aortic valve replacement - Cervicitis and endocervicitis - Chronic congestive heart failure ([facility]) 03/03/2015 - CKD (chronic kidney disease) stage 3, GFR 30-59 ml/min ( C) 07/12/2017 - Coronary artery disease - Diverticulosis of colon (without mention of hemorrhage) Diverticulosis - Esophagitis - Heart attack ([facility]) - History of aortic valve replacement 03/02/2016 - Hypertension - Hypothyroidism, acquired 07/12/2017 - Moderate aortic stenosis 11/25/2014 - Moderate aortic valve insufficiency 11/25/2014 - Osteoarthrosis, unspecified whether generalized or localiz ed, other specified sites - Paroxysmal atrial fibrillation ([facility]) - PUD (peptic ulcer disease) 12/18/2009 - S/P CABG x 2 03/02/201601/2016--complicated by atrial fibrillation - Statin intolerance 07/22/2016 - Syncope - Takotsubo cardiomyopathy 02/2018 - Unspecified hemorrhoids without mention of complication Hemorrhoids Current Outpatient Medications on File Prior to Visit Medication Sig - LORazepam (ATIVAN) 0.5 mg Take 1 tablet by mouth once johan y as needed (anxiety) for up to 20 days. - traMADol (ULTRAM) 50 mg tablet Take 1 tablet by mouth twic e daily for 30 days. - lisinopril (ZESTRIL, PRINIVIL) 10 mg tablet Take 1 tablet by mouth once daily. - omeprazole (PRILOSEC) 20 mg capsule Take 1 capsule by mout h daily before breakfast. 1/2 hr before meal. - Compression Stockings Knee High Compression Stockings 15-2 0 mm, DX: Peripheral venous insufficiency, Bilateral Lower Extremity e [place] - furosemide (LASIX) 20 mg tablet Take 0.5 tablets by mouth once daily. - doxycycline monohydrate (MONODOX) 100 mg capsule Take 1 ca psule by mouth twice daily. (Patient not taking: Reported on 12/22/2018 ) - levothyroxine (SYNTHROID) 125 mcg tablet Take 1 tablet by mouth once daily. Take on empty stomach. For Thyroid - furosemide (LASIX) 20 mg tablet Take 1 tablet by mouth twi ce daily. (Patient taking differently: Take 40 mg by mouth once daily. ) - cholestyramine-sucrose (QUESTRAN) 4 gram powder Take 4 g b y mouth three times daily with meals. (Patient not taking: Reported on 09/15 ) - spironolactone (ALDACTONE) 25 mg tablet Take 1 tablet by m outh twice daily. (Patient not taking: Reported on 12/22/2018 ) - amLODIPine (NORVASC) 5 mg tablet Take 1 tablet by mouth on ce daily. - metoprolol tartrate, short acting, (LOPRESSOR) 25 mg table t Take 0.5 tablets by mouth twice daily. - docusate sodium (COLACE ORAL) Take 240 mg by mouth twice d aily. - amiodarone (CORDARONE) 200 mg tablet Take 1 tablet by mout h once daily. - apixaban (ELIQUIS) 5 mg tab(s) Take 1 tablet by mouth twic e daily. - clopidogrel (PLAVIX) 75 mg tablet Take 1 tablet by mouth o nce daily. - melatonin 10 mg cap Take by mouth. - calcium carbonate 600 mg-cholecalciferol 200 units (CALCIU M 600 + D,3,) 600 mg(1,500mg) -200 unit tab Take 1 tablet by mouth once da melani. (Patient not taking: Reported on 10/10/2018 ) - nitroglycerin sublingual (NITROQUICK) 0.4 mg SL tablet Dis solve 1 tablet under the tongue as needed. FOR CHEST PAIN. IF NO RELIEF PATRICE L 911 - Magnesium 250 mg tab 2 tablets in the morning and 2 tablet in the evening (Patient not taking: Reported on 08/08/2018 ) - therapeutic multivitamin ORAL tablet Take one(1) tablet da melani. - fish oil/dha/epa(FISH OIL 1,200 MG-144 MG-216 MG CAP) one capsule every other day No current facility-administered medications on file prior t o visit. FAMILY HISTORY Problem Relation Age of Onset - Heart Mother - Diabetes Mother - Alcohol/Drug Father - Thyroid Brother Social History Tobacco Use - Smoking status: Never Smoker - Smokeless tobacco: Never Used Substance Use Topics - Alcohol use: No - Drug use: No There were no vitals taken for this visit. OBJECTIVE: alert, rational, goal oriented ASSESSMENT: vasovagal near syncope situational anxiety irritable bowel syndrome with diarrhea PLAN: take ativan 0.5 mg once/day as needed for anxiety GB ultrasound in 1 month (COVID concerns) same other medications Adair Rodriguez III MD call ended at 1507 28 min Adair Rodriguez III MD obsolete on 2019-05 OBSOLETE Refill (FAMPWS) Normal 05-24-2019 [facility] GALILEO HUSTON ([id number]) 1935 [address] [facility] Time Provider Department ([id number]) 05/24/19 ADAIR RODRIGUEZ III During your visit today, we recorded the following informati on about you: Delfina Didi Admin Sec 05/24/2019 11:30 AM Signed Patient has been identified by name and date of : Yes Last office visit in this department: 12/29/2018 RX INSTRUCTIONS: Patient aware RX will be sent to pharmacy. No need to notify patient. Patient phones requesting refills as follows: Pending Prescriptions Disp Refills LORAZEPAM 0.5 MG TABLET 20 tablet 0 Sig: Take 1 tablet by mouth once daily as needed (anxiety) f or up to 30 days. RADHA Class: C-IV COSME: No Please review and advise. Delfina Tolbert Admin Sec Heriberto Moncada LPN 05/25/2019 2:02 PM Signed Last refill 06/04/18 Qty: 20 with 0 refills Last ov 12/29/18 No appt scheduled Heriberto Craig, MSN PACKAGING SPECIALIST.[facility] 05/25/2019 3:05 PM Signed The following approved medic ation requests have been transmitted electronically. Signed Prescriptions Disp Refills LORazepam (ATIVAN) 0.5 mg 20 tablet 0 Sig: Take 1 tablet by mouth once daily as needed (anxiety) f or up to 20 days. RADHA Class: C-IV COSME: No Authorizing Provider: ABI CRAIG [facility] website checked and validated. All prescrip tions have been APPROPRIATELY filled. No suspicious activity was ident ified. 05/25/2019 by Abi Craig, MSN PACKAGING SPECIALIST.CONSTRUCTION SAFETY CONSULTANT Abi Craig, MSN PACKAGING SPECIALIST.CONSTRUCTION SAFETY CONSULTANT Allergies As of Date: 05/24/2019 Noted Allergy Reaction bandaids [Other] 09/30/2005 LIPITOR (ATORVASTATIN CALCIUM) 07/22/2016 17 - Myalgia LYRICA (PREGABALIN) 11/30/2010 1 - Mental Status Change NIACIN 11/30/2010 14 - Other: See Comments Comments: myalgia ZOCOR (SIMVASTATIN) 08/09/2011 14 - Other: See Comments Comments: myalgia Date Reviewed: 12/29/2018 Reviewed by: Heriberto Moncada LPN - Fully Assessed Reason for Visit: Refill Request [94] Visit Diagnosis:Chronic anxiety [F41.9] Order(s):LORazepam (ATIVAN) 0.5 mgTake 1 tablet by mouth once daily as needed (anxiety) for up to 20 days.Disp: 20 tabletRfl: 0 Prescriptions as of 05/24/2019 Sig: LORAZEPAM 0.5 MG TABLET Take 1 tablet by mouth once d* TRAMADOL 50 MG TABLET Take 1 tablet by mouth twice * LISINOPRIL 10 MG TABLET Take 1 tablet by mouth once d* OMEPRAZOLE 20 MG CAPSULE,MANUEL* Take 1 capsule by mouth daily * COMPOUNDED PRESCRIPTION Knee High Compression Stockin* FUROSEMIDE 20 MG TABLET Take 0.5 tablets by mouth onc* DOXYCYCLINE MONOHYDRATE 100 M* Take 1 capsule by mouth twice * Patient not taking: Reported on 12/22/2018 LEVOTHYROXINE 125 MCG TABLET Take 1 tablet by mouth once d* FUROSEMIDE 20 MG TABLET Take 1 tablet by mouth twice * Patient taking differently: Take 40 mg by mouth once johan* CHOLESTYRAMINE (WITH SUGAR) 4* Take 4 g by mouth three times * Patient not taking: Reported on 10/10/2018 SPIRONOLACTONE 25 MG TABLET Take 1 tablet by mouth twice * Patient not taking: Reported on 12/22/2018 AMLODIPINE 5 MG TABLET Take 1 tablet by mouth once d* METOPROLOL TARTRATE 25 MG TAB* Take 0.5 tablets by mouth twi * COLACE ORAL Take 240 mg by mouth twice da* AMIODARONE 200 MG TABLET Take 1 tablet by mouth once d* APIXABAN 5 MG TABLET Take 1 tablet by mouth twice * CLOPIDOGREL 75 MG TABLET Take 1 tablet by mouth once d* MELATONIN 10 MG CAPSULE Take by mouth. CALCIUM CARBONATE 600 MG (1,5* Take 1 tablet by mouth once d * Patient not taking: Reported on 10/10/2018 NITROGLYCERIN 0.4 MG SUBLINGU* Dissolve 1 tablet under the t * MAGNESIUM 250 MG TABLET 2 tablets in the morning and * Patient not taking: Reported on 08/08/2018 * THERAPEUTIC MULTIVITAMIN TABL* Take one(1) tablet daily. * FISH OIL 1,200 MG-144 MG-216 * one capsule every other day Problem List As Of Date 05/24/2019 Noted Resolved Essential hypertension, benign [I10] 07/26/2005 More... 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 More... Sciatica [M54.30] 08/29/2006 03/02/2016 PUD (peptic ulcer disease) [K27.9] 12/18/2009 Mild cognitive impairment with memory loss [G31*07/03/2012 0 07/26/2017 Class 3 severe obesity due to excess calories w*07/03/2012 0 08/08/2018 Magnesium deficiency [E61.2] 12/03/2013 03/02/2016 ASHD (arteriosclerotic heart disease) [I25.10] 10/08/2014 Acute myocardial infarction (HCC) [I21.9] 10/08/2014 Moderate aortic stenosis [I35.0] 11/25/2014 08/08/2018 Moderate aortic valve insufficiency [I35.1] 11/25/201408/08 Arthritis of both hands [M19.041, M19.042] 03/03/2015 Chronic congestive heart failure (HCC) [I50.9] 03/03/2015 Impaired fasting glucose [R73.01] 03/04/2015 Gastroesophageal reflux disease with esophagiti*02/12/2016 History of aortic valve replacement [Z95.2] 03/02/2016 More... 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 Atrial fibrillation (HCC) [I48.91] 03/02/2016 More... 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 Medications Discontinued During This Encounter LORazepam (ATIVAN) 0.5 mg tab 20 t* 0 05/05/2018 05/25/2019 Class: Print RX Route: ORAL Sig: Take 1 tablet by mouth once daily as needed (anxiety) for up to 30 days. Disc: Reason for discontinue is not on file. Encounter Status:Closed by ABI CRAIG CNP on 05/25/19 obsolete on 2019-04 OBSOLETE Refill (FAMPWS) Normal 05-07-2019 [place] [facility] GALILEO Hall ([id number]) 1935 [address] [facility] [place] Date Time Provider Department ([id number]) 05/07/19 ADAIR RODRIGUEZ III During your visit today, we recorded the following informati on about you: Trena Mahajan 05/07/2019 9:07 AM Signed Patient has been identified by name and date of : Yes Last office visit in this department: 12/29/2018 RX INSTRUCTIONS: Patient aware RX will be sent to pharmacy. No need to notify patient. Patient phones requesting refills as follows: No medications selected for refill. Please review and advise. [facility] Gilda Ibrahim Ma 05/07/2019 10:06 AM Signed Patient has been identified by name and date of : Yes Pending Prescriptions Disp Refills TRAMADOL 50 MG TABLET 60 tablet 0 Sig: Take 1 tablet by mouth twice daily for 30 days. RADHA Class: C-IV COSME: No RX INSTRUCTIONS: Patient aware RX will be sent to pharmacy. No need to notify patient. Gilda Ibrahim Ma Last ov: 12/2018 Last refill; 04/30/2019 60 tablets No appointment scheduled Abi Craig MSN PACKAGING SPECIALIST.CONSTRUCTION SAFETY CONSULTANT 05/07/2019 11:39 AM Signed The following approved medic ation requests have been transmitted electronically. Signed Prescriptions Disp Refills traMADol (ULTRAM) 50 mg tablet 60 tablet 0 Sig: Take 1 tablet by mouth twice daily for 30 days. RADHA Class: C-IV COSME: No Authorizing Provider: ABI CRAIG PDMP website checked and validated. All prescrip tions have been APPROPRIATELY filled. No suspicious activity was ident ified. 05/07/2019 by Abi Craig, MSN PACKAGING SPECIALIST.CONSTRUCTION SAFETY CONSULTANT Abi Craig, MSN PACKAGING SPECIALIST.CONSTRUCTION SAFETY CONSULTANT Allergies As of Date: 05/07/2019 Noted Allergy Reaction bandaids [Other] 09/30/2005 LIPITOR (ATORVASTATIN CALCIUM) 07/22/2016 17 - Myalgia LYRICA (PREGABALIN) 11/30/2010 1 - Mental Status Change NIACIN 11/30/2010 14 - Other: See Comments Comments: myalgia ZOCOR (SIMVASTATIN) 08/09/2011 14 - Other: See Comments Comments: myalgia Date Reviewed: 12/29/2018 Reviewed by: Heriberto Moncada LPN - Fully Assessed Reason for Visit: Refill Request [94] Visit Diagnosis:Primary osteoarthritis of both knees [M17.0] Order(s):traMADol (ULTRAM) 50 mg tabletTake 1 ta blet by mouth twice daily for 30 days.Disp: 60 tabletRfl: 0 Prescriptions as of 05/07/2019 Sig: TRAMADOL 50 MG TABLET Take 1 tablet by mouth twice * LISINOPRIL 10 MG TABLET Take 1 tablet by mouth once d* OMEPRAZOLE 20 MG CAPSULE,MANUEL* Take 1 capsule by mouth daily * COMPOUNDED PRESCRIPTION Knee High Compression Stockin* FUROSEMIDE 20 MG TABLET Take 0.5 tablets by mouth onc* DOXYCYCLINE MONOHYDRATE 100 M* Take 1 capsule by mouth twice * Patient not taking: Reported on 12/22/2018 LEVOTHYROXINE 125 MCG TABLET Take 1 tablet by mouth once d* FUROSEMIDE 20 MG TABLET Take 1 tablet by mouth twice * Patient taking differently: Take 40 mg by mouth once johan* CHOLESTYRAMINE (WITH SUGAR) 4* Take 4 g by mouth three times * Patient not taking: Reported on 10/10/2018 SPIRONOLACTONE 25 MG TABLET Take 1 tablet by mouth twice * Patient not taking: Reported on 12/22/2018 AMLODIPINE 5 MG TABLET Take 1 tablet by mouth once d* METOPROLOL TARTRATE 25 MG TAB* Take 0.5 tablets by mouth twi * COLACE ORAL Take 240 mg by mouth twice da* AMIODARONE 200 MG TABLET Take 1 tablet by mouth once d* APIXABAN 5 MG TABLET Take 1 tablet by mouth twice * CLOPIDOGREL 75 MG TABLET Take 1 tablet by mouth once d* MELATONIN 10 MG CAPSULE Take by mouth. CALCIUM CARBONATE 600 MG (1,5* Take 1 tablet by mouth once d * Patient not taking: Reported on 10/10/2018 NITROGLYCERIN 0.4 MG SUBLINGU* Dissolve 1 tablet under the t * MAGNESIUM 250 MG TABLET 2 tablets in the morning and * Patient not taking: Reported on 08/08/2018 * THERAPEUTIC MULTIVITAMIN TABL* Take one(1) tablet daily. * FISH OIL 1,200 MG-144 MG-216 * one capsule every other day Problem List As Of Date 05/07/2019 Noted Resolved Essential hypertension, benign [I10] 07/26/2005 More... 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 More... Sciatica [M54.30] 08/29/2006 03/02/2016 PUD (peptic ulcer disease) [K27.9] 12/18/2009 Mild cognitive impairment with memory loss [G31*07/03/2012 0 07/26/2017 Class 3 severe obesity due to excess calories w*07/03/2012 0 08/08/2018 Magnesium deficiency [E61.2] 12/03/2013 03/02/2016 ASHD (arteriosclerotic heart disease) [I25.10] 10/08/2014 Acute myocardial infarction (HCC) [I21.9] 10/08/2014 Moderate aortic stenosis [I35.0] 11/25/2014 08/08/2018 Moderate aortic valve insufficiency [I35.1] 11/25/201408/08 Arthritis of both hands [M19.041, M19.042] 03/03/2015 Chronic congestive heart failure (HCC) [I50.9] 03/03/2015 Impaired fasting glucose [R73.01] 03/04/2015 Gastroesophageal reflux disease with esophagiti*02/12/2016 History of aortic valve replacement [Z95.2] 03/02/2016 More... 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 Atrial fibrillation (HCC) [I48.91] 03/02/2016 More... 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 Medications Discontinued During This Encounter traMADol (ULTRAM) 50 mg tablet 60 t* 0 04/30/2019 05/07/2019 Route: ORAL Sig: Take 1 tablet by mouth twice daily for 30 days. Do not start before April 30, 2019. Disc: Reason for discontinue is not on file. Encounter Status:Closed by ABI CRAIG CNP on 05/07/19 obsolete on 2019-04 OBSOLETE Refill (FAMPWS) Normal 04-20-2019 [place] [facility] BETZAIDAGALILEO N ([id number]) 1935 [facility] Date Time Provider Department ([id number]) 04/20/19 [facility] During your visit today, we recorded the following informati on about you: Nancy Ro 04/20/2019 9:42 AM Signed Patient has been identified by name and date of : Yes Pending Prescriptions Disp Refills LISINOPRIL 10 MG TABLET 30 tablet 11 Sig: Take 1 tablet by mouth once daily. COSME: No TRAMADOL 50 MG TABLET 60 tablet 0 Sig: Take 1 tablet by mouth twice daily for 30 days. RADHA Class: C-IV COSME: No RX INSTRUCTIONS: Patient is under the pharmacies [facility] your eds program . Patient is asking both medications are sent to the pharmacy today Patient aware RX will be sent to pharmacy. No need to notify patient. Nancy Singer Ma 04/20/2019 3:01 PM Signed Last office visit: 12/29/18 F/u scheduled: no follow up Last refilled on: Tramadol #60 with 0 refills on 04/02/2019 RX INSTRUCTIONS: Patient is under the pharmacies [facility] your eds program . Patient is asking both medications are sent to the pharmacy today Liyah Craig, MSN PACKAGING SPECIALIST.[facility] 04/20/2019 4:08 PM Signed The following approved medic ation requests have been transmitted electronically. Signed Prescriptions Disp Refills lisinopril (ZESTRIL, PRINIVIL) 10 mg tablet 30 tablet 11 Sig: Take 1 tablet by mouth once daily. COSME: No Authorizing Provider: ABI CRAIG traMADol (ULTRAM) 50 mg tablet 60 tablet 0 Sig: Take 1 tablet by mouth twice daily for 30 days. Do not start before April 30, 2019. RADHA Class: C-IV COSME: No Authorizing Provider: ABI CRAIG PDMP website checked and validated. All prescrip tions have been APPROPRIATELY filled. No suspicious activity was identified. by Abi Craig, MSN PACKAGING SPECIALIST.CONSTRUCTION SAFETY CONSULTANT Abi Craig, MSN PACKAGING SPECIALIST.CONSTRUCTION SAFETY CONSULTANT Allergies As of Date: 04/20/2019 Noted Allergy Reaction bandaids [Other] 09/30/2005 LIPITOR (ATORVASTATIN CALCIUM) 07/22/2016 17 - Myalgia LYRICA (PREGABALIN) 11/30/2010 1 - Mental Status Change NIACIN 11/30/2010 14 - Other: See Comments Comments: myalgia ZOCOR (SIMVASTATIN) 08/09/2011 14 - Other: See Comments Comments: myalgia Date Reviewed: 12/29/2018 Reviewed by: Heriberto Moncada LPN - Fully Assessed Reason for Visit: Refill Request [94] Visit Diagnosis:Primary osteoarthritis of both knees [M17.0] Order(s):lisinopril (ZESTRIL, PRINIVIL) 10 mg tabletTake 1 t ablet by mouth once daily.Disp: 30 tabletRfl: 11 [START ON 04/30/2019] traMADol (ULTRAM) 50 mg tabletTake 1 ta blet by mouth twice daily for 30 days. Do not start before April 30, 2019.Disp: 60 tabletRfl: 0 Prescriptions as of 04/20/2019 Sig: LISINOPRIL 10 MG TABLET Take 1 tablet by mouth once d* TRAMADOL 50 MG TABLET Take 1 tablet by mouth twice * OMEPRAZOLE 20 MG CAPSULE,MANUEL* Take 1 capsule by mouth daily * COMPOUNDED PRESCRIPTION Knee High Compression Stockin* FUROSEMIDE 20 MG TABLET Take 0.5 tablets by mouth onc* DOXYCYCLINE MONOHYDRATE 100 M* Take 1 capsule by mouth twice * Patient not taking: Reported on 12/22/2018 LEVOTHYROXINE 125 MCG TABLET Take 1 tablet by mouth once d* FUROSEMIDE 20 MG TABLET Take 1 tablet by mouth twice * Patient taking differently: Take 40 mg by mouth once johan* CHOLESTYRAMINE (WITH SUGAR) 4* Take 4 g by mouth three times * Patient not taking: Reported on 10/10/2018 SPIRONOLACTONE 25 MG TABLET Take 1 tablet by mouth twice * Patient not taking: Reported on 12/22/2018 AMLODIPINE 5 MG TABLET Take 1 tablet by mouth once d* METOPROLOL TARTRATE 25 MG TAB* Take 0.5 tablets by mouth twi * COLACE ORAL Take 240 mg by mouth twice da* AMIODARONE 200 MG TABLET Take 1 tablet by mouth once d* APIXABAN 5 MG TABLET Take 1 tablet by mouth twice * CLOPIDOGREL 75 MG TABLET Take 1 tablet by mouth once d* MELATONIN 10 MG CAPSULE Take by mouth. CALCIUM CARBONATE 600 MG (1,5* Take 1 tablet by mouth once d * Patient not taking: Reported on 10/10/2018 NITROGLYCERIN 0.4 MG SUBLINGU* Dissolve 1 tablet under the t * MAGNESIUM 250 MG TABLET 2 tablets in the morning and * Patient not taking: Reported on 08/08/2018 * THERAPEUTIC MULTIVITAMIN TABL* Take one(1) tablet daily. * FISH OIL 1,200 MG-144 MG-216 * one capsule every other day Problem List As Of Date 04/20/2019 Noted Resolved Essential hypertension, benign [I10] 07/26/2005 More... 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 More... Sciatica [M54.30] 08/29/2006 03/02/2016 PUD (peptic ulcer disease) [K27.9] 12/18/2009 Mild cognitive impairment with memory loss [G31*07/03/2012 0 07/26/2017 Class 3 severe obesity due to excess calories w*07/03/2012 0 08/08/2018 Magnesium deficiency [E61.2] 12/03/2013 03/02/2016 ASHD (arteriosclerotic heart disease) [I25.10] 10/08/2014 Acute myocardial infarction (HCC) [I21.9] 10/08/2014 Moderate aortic stenosis [I35.0] 11/25/2014 08/08/2018 Moderate aortic valve insufficiency [I35.1] 11/25/201408/08 Arthritis of both hands [M19.041, M19.042] 03/03/2015 Chronic congestive heart failure (HCC) [I50.9] 03/03/2015 Impaired fasting glucose [R73.01] 03/04/2015 Gastroesophageal reflux disease with esophagiti*02/12/2016 History of aortic valve replacement [Z95.2] 03/02/2016 More... 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 Atrial fibrillation (HCC) [I48.91] 03/02/2016 More... 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 TRAMADOL 50 MG TABLET 60 t* 0 04/30/2019 05/30/2019 Route: ORAL Sig: Take 1 tablet by mouth twice daily for 30 days. Do not start before April 30, 2019. Medications Discontinued During This Encounter lisinopril (ZESTRIL, PRINIVIL) 10 mg* 30 t* 11 05/05/201804/19 Cmt: dose increase Route: ORAL Sig: Take 1 tablet by mouth once daily. Disc: Reason for discontinue is not on file. traMADol (ULTRAM) 50 mg tablet 60 t* 0 04/02/2019 04/20/2019 Route: ORAL Sig: Take 1 tablet by mouth twice daily for 30 days. Disc: Reason for discontinue is not on file. Encounter Status:Closed by ABI CRAIG CNP on 04/20/19 obsolete on 2019-03 OBSOLETE Refill (FAMPWS) Normal 04-02-2019 [place] [facility] GALILEO HUSTON ([id number]) 1935 [facility] Date Time Provider Department ([id number]) 04/02/19 ADAIR RODRIGUEZ III During your visit today, we recorded the following informati on about you: Sabrina Quinnoran Pss 04/02/2019 9:08 AM Signed Patient has been identified by name and date of : Yes Pending Prescriptions Disp Refills TRAMADOL 50 MG TABLET 60 tablet 0 Sig: Take 1 tablet by mouth twice daily for 30 days. RADHA Class: C-IV COSME: No RX INSTRUCTIONS: patient taking last tab today Patient aware RX will be sent to pharmacy. No need to notify patient. Sabrina Ronquillon Pss Heriberto Moncada LPN 04/02/2019 9:31 AM Signed Pt will be out of medication after today. Per message below. Last refill 03/01/19 Qty: 60 with 0 refills Last ov 12/29/18 No appt scheduled Heriberto Rodriguez III MD 04/02/2019 1:47 PM Signed PDMP website checked and validated. All prescrip tions have been APPROPRIATELY filled. No suspicious activity was ident ified. 04/02/2019 by KERWIN Lee MD, LPN 04/02/2019 4:06 PM Signed The following approved medic ation requests have been transmitted electronically. Signed Prescriptions Disp Refills traMADol (ULTRAM) 50 mg tablet 60 tablet 0 Sig: Take 1 tablet by mouth twice daily for 30 days. RADHA Class: C-IV COSME: No Authorizing Provider: ADAIR RODRIGUEZ III, LPN Allergies As of Date: 04/02/2019 Noted Allergy Reaction bandaids [Other] 09/30/2005 LIPITOR (ATORVASTATIN CALCIUM) 07/22/2016 17 - Myalgia LYRICA (PREGABALIN) 11/30/2010 1 - Mental Status Change NIACIN 11/30/2010 14 - Other: See Comments Comments: myalgia ZOCOR (SIMVASTATIN) 08/09/2011 14 - Other: See Comments Comments: myalgia Date Reviewed: 12/29/2018 Reviewed by: Heriberto Moncada LPN - Fully Assessed Reason for Visit: Refill Request [94] Visit Diagnosis:Primary osteoarthritis of both knees [M17.0] Order(s):traMADol (ULTRAM) 50 mg tabletTake 1 ta blet by mouth twice daily for 30 days.Disp: 60 tabletRfl: 0 Prescriptions as of 04/02/2019 Sig: TRAMADOL 50 MG TABLET Take 1 tablet by mouth twice * OMEPRAZOLE 20 MG CAPSULE,MANUEL* Take 1 capsule by mouth daily * COMPOUNDED PRESCRIPTION Knee High Compression Stockin* FUROSEMIDE 20 MG TABLET Take 0.5 tablets by mouth onc* DOXYCYCLINE MONOHYDRATE 100 M* Take 1 capsule by mouth twice * Patient not taking: Reported on 12/22/2018 LEVOTHYROXINE 125 MCG TABLET Take 1 tablet by mouth once d* FUROSEMIDE 20 MG TABLET Take 1 tablet by mouth twice * Patient taking differently: Take 40 mg by mouth once johan* CHOLESTYRAMINE (WITH SUGAR) 4* Take 4 g by mouth three times * Patient not taking: Reported on 10/10/2018 SPIRONOLACTONE 25 MG TABLET Take 1 tablet by mouth twice * Patient not taking: Reported on 12/22/2018 AMLODIPINE 5 MG TABLET Take 1 tablet by mouth once d* LISINOPRIL 10 MG TABLET Take 1 tablet by mouth once d* METOPROLOL TARTRATE 25 MG TAB* Take 0.5 tablets by mouth twi * COLACE ORAL Take 240 mg by mouth twice da* AMIODARONE 200 MG TABLET Take 1 tablet by mouth once d* APIXABAN 5 MG TABLET Take 1 tablet by mouth twice * CLOPIDOGREL 75 MG TABLET Take 1 tablet by mouth once d* MELATONIN 10 MG CAPSULE Take by mouth. CALCIUM CARBONATE 600 MG (1,5* Take 1 tablet by mouth once d * Patient not taking: Reported on 10/10/2018 NITROGLYCERIN 0.4 MG SUBLINGU* Dissolve 1 tablet under the t * MAGNESIUM 250 MG TABLET 2 tablets in the morning and * Patient not taking: Reported on 08/08/2018 * THERAPEUTIC MULTIVITAMIN TABL* Take one(1) tablet daily. * FISH OIL 1,200 MG-144 MG-216 * one capsule every other day Problem List As Of Date 04/02/2019 Noted Resolved Essential hypertension, benign [I10] 07/26/2005 More... 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 More... Sciatica [M54.30] 08/29/2006 03/02/2016 PUD (peptic ulcer disease) [K27.9] 12/18/2009 Mild cognitive impairment with memory loss [G31*07/03/2012 0 07/26/2017 Class 3 severe obesity due to excess calories w*07/03/2012 0 08/08/2018 Magnesium deficiency [E61.2] 12/03/2013 03/02/2016 ASHD (arteriosclerotic heart disease) [I25.10] 10/08/2014 Acute myocardial infarction (HCC) [I21.9] 10/08/2014 Moderate aortic stenosis [I35.0] 11/25/2014 08/08/2018 Moderate aortic valve insufficiency [I35.1] 11/25/201408/08 Arthritis of both hands [M19.041, M19.042] 03/03/2015 Chronic congestive heart failure (HCC) [I50.9] 03/03/2015 Impaired fasting glucose [R73.01] 03/04/2015 Gastroesophageal reflux disease with esophagiti*02/12/2016 History of aortic valve replacement [Z95.2] 03/02/2016 More... 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 Atrial fibrillation (HCC) [I48.91] 03/02/2016 More... 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 Medications Discontinued During This Encounter traMADol (ULTRAM) 50 mg tablet 60 t* 0 03/01/2019 04/02/2019 Route: ORAL Sig: Take 1 tablet by mouth twice daily for 30 days. Disc: Reason for discontinue is not on file. Encounter Status:Closed by HERIBERTO MONCADA LPN on 04/02/19 obsolete on 2019-02 OBSOLETE Refill (FAMPWS) Normal 03-01-2019 [facility] GALILEO HUSTON ([id number]) 1935 [facility] Time Provider Department ([id number]) 03/01/19 ADAIR RODRIGUEZ III FAMPWS During your visit today, we recorded the following informati on about you: Anaya Andrews Pss 03/01/2019 8:49 AM Signed Patient has been identified by name and date of : Yes Pending Prescriptions Disp Refills TRAMADOL 50 MG TABLET 60 tablet 0 Sig: Take 1 tablet by mouth twice daily for 30 days. RADHA Class: C-IV COSME: No RX INSTRUCTIONS: Patient aware RX will be sent to pharmacy. No need to notify patient. Anaya Green LPN 03/01/2019 9:02 AM Signed Patient has been identified by name and date of : Yes Patient phones for refill(s): Pending Prescriptions Disp Refills TRAMADOL 50 MG TABLET 60 tablet 0 Sig: Take 1 tablet by mouth twice daily for 30 days. RADHA Class: C-IV COSME: No Date of last office visit in primary care: 12/29/18 last r x 01/26/19 qty 60 Last 2 Encounter Wt Readings: Date: Wt: 12/29/2018 88 kg (194 lb) 12/22/2018 90.4 kg (199 lb 6.4 oz) Previous labs/tests for medication: Not applicable Please advise. Thank you. Mira Green LPN Abi Craig, MSN PACKAGING SPECIALIST.CONSTRUCTION SAFETY CONSULTANT 03/01/2019 3:59 PM Signed The following approved medication requests have been transmi tted electronically. Signed Prescriptions Disp Refills traMADol (ULTRAM) 50 mg tablet 60 tablet 0 Sig: Take 1 tablet by mouth twice daily for 30 days. RADHA Class: C-IV COSME: No Authorizing Provider: ABI CRAIG [facility] website checked and validated. All prescrip tions have been APPROPRIATELY filled. No suspicious activity was ident ified. 03/01/2019 by Abi Craig, MSN PACKAGING SPECIALIST.CONSTRUCTION SAFETY CONSULTANT Abi Craig, MSN PACKAGING SPECIALIST.CONSTRUCTION SAFETY CONSULTANT Allergies As of Date: 03/01/2019 Noted Allergy Reaction bandaids [Other] 09/30/2005 LIPITOR (ATORVASTATIN CALCIUM) 07/22/2016 17 - Myalgia LYRICA (PREGABALIN) 11/30/2010 1 - Mental Status Change NIACIN 11/30/2010 14 - Other: See Comments Comments: myalgia ZOCOR (SIMVASTATIN) 08/09/2011 14 - Other: See Comments Comments: myalgia Date Reviewed: 12/29/2018 Reviewed by: Heriberto Moncada LPN - Fully Assessed Reason for Visit: Refill Request [94] Visit Diagnosis:Primary osteoarthritis of both knees [M17.0] Order(s):traMADol (ULTRAM) 50 mg tabletTake 1 ta blet by mouth twice daily for 30 days.Disp: 60 tabletRfl: 0 Prescriptions as of 03/01/2019 Sig: TRAMADOL 50 MG TABLET Take 1 tablet by mouth twice * OMEPRAZOLE 20 MG CAPSULE,MANUEL* Take 1 capsule by mouth daily * COMPOUNDED PRESCRIPTION Knee High Compression Stockin* FUROSEMIDE 20 MG TABLET Take 0.5 tablets by mouth onc* DOXYCYCLINE MONOHYDRATE 100 M* Take 1 capsule by mouth twice * Patient not taking: Reported on 12/22/2018 LEVOTHYROXINE 125 MCG TABLET Take 1 tablet by mouth once d* FUROSEMIDE 20 MG TABLET Take 1 tablet by mouth twice * Patient taking differently: Take 40 mg by mouth once johan* CHOLESTYRAMINE (WITH SUGAR) 4* Take 4 g by mouth three times * Patient not taking: Reported on 10/10/2018 SPIRONOLACTONE 25 MG TABLET Take 1 tablet by mouth twice * Patient not taking: Reported on 12/22/2018 AMLODIPINE 5 MG TABLET Take 1 tablet by mouth once d* LISINOPRIL 10 MG TABLET Take 1 tablet by mouth once d* METOPROLOL TARTRATE 25 MG TAB* Take 0.5 tablets by mouth twi * COLACE ORAL Take 240 mg by mouth twice da* AMIODARONE 200 MG TABLET Take 1 tablet by mouth once d* APIXABAN 5 MG TABLET Take 1 tablet by mouth twice * CLOPIDOGREL 75 MG TABLET Take 1 tablet by mouth once d* MELATONIN 10 MG CAPSULE Take by mouth. CALCIUM CARBONATE 600 MG (1,5* Take 1 tablet by mouth once d * Patient not taking: Reported on 10/10/2018 NITROGLYCERIN 0.4 MG SUBLINGU* Dissolve 1 tablet under the t * MAGNESIUM 250 MG TABLET 2 tablets in the morning and * Patient not taking: Reported on 08/08/2018 * THERAPEUTIC MULTIVITAMIN TABL* Take one(1) tablet daily. * FISH OIL 1,200 MG-144 MG-216 * one capsule every other day Problem List As Of Date 03/01/2019 Noted Resolved Essential hypertension, benign [I10] 07/26/2005 More... 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 More... Sciatica [M54.30] 08/29/2006 03/02/2016 PUD (peptic ulcer disease) [K27.9] 12/18/2009 Mild cognitive impairment with memory loss [G31*07/03/2012 0 07/26/2017 Class 3 severe obesity due to excess calories w*07/03/2012 0 08/08/2018 Magnesium deficiency [E61.2] 12/03/2013 03/02/2016 ASHD (arteriosclerotic heart disease) [I25.10] 10/08/2014 Acute myocardial infarction (HCC) [I21.9] 10/08/2014 Moderate aortic stenosis [I35.0] 11/25/2014 08/08/2018 Moderate aortic valve insufficiency [I35.1] 11/25/201408/08 Arthritis of both hands [M19.041, M19.042] 03/03/2015 Chronic congestive heart failure (HCC) [I50.9] 03/03/2015 Impaired fasting glucose [R73.01] 03/04/2015 Gastroesophageal reflux disease with esophagiti*02/12/2016 History of aortic valve replacement [Z95.2] 03/02/2016 More... 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 Atrial fibrillation (HCC) [I48.91] 03/02/2016 More... 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 Medications Discontinued During This Encounter traMADol (ULTRAM) 50 mg tablet 60 t* 0 01/26/2019 03/01/2019 Class: Print RX Route: ORAL Sig: Take 1 tablet by mouth twice daily for 30 days. Disc: Reason for discontinue is not on file. Encounter Status:Closed by ABI CRAIG CNP on 03/01/19 obsolete on 2019-01 OBSOLETE Refill (FAMPWS) Normal 02-06-2019 [facility] GALILEO HUSTON ([id number]) 1935 [facility] Date Time Provider Department ([id number]) 02/06/19 ADAIR RODRIGUEZ III During your visit today, we recorded the following informati on about you: Heriberto Moncada LPN 02/06/2019 9:50 AM Signed Last refill 08/10/18 Qty: 90 with 1 refill Last ov 12/29/18 No appt scheduled Heriberto Moncada LPN Allergies As of Date: 02/06/2019 Noted Allergy Reaction bandaids [Other] 09/30/2005 LIPITOR (ATORVASTATIN CALCIUM) 07/22/2016 17 - Myalgia LYRICA (PREGABALIN) 11/30/2010 1 - Mental Status Change NIACIN 11/30/2010 14 - Other: See Comments Comments: myalgia ZOCOR (SIMVASTATIN) 08/09/2011 14 - Other: See Comments Comments: myalgia Date Reviewed: 12/29/2018 Reviewed by: Heriberto Moncada LPN - Fully Assessed Reason for Visit: Refill Request [94] Order(s):omeprazole (PRILOSEC) 20 mg capsuleTake 1 capsule b y mouth daily before breakfast. 1/2 hr before meal.Disp: 90 capsuleRfl: 1 Prescriptions as of 02/06/2019 Sig: OMEPRAZOLE 20 MG CAPSULE,MANUEL* Take 1 capsule by mouth daily * TRAMADOL 50 MG TABLET Take 1 tablet by mouth twice * COMPOUNDED PRESCRIPTION Knee High Compression Stockin* FUROSEMIDE 20 MG TABLET Take 0.5 tablets by mouth onc* DOXYCYCLINE MONOHYDRATE 100 M* Take 1 capsule by mouth twice * Patient not taking: Reported on 12/22/2018 LEVOTHYROXINE 125 MCG TABLET Take 1 tablet by mouth once d* FUROSEMIDE 20 MG TABLET Take 1 tablet by mouth twice * Patient taking differently: Take 40 mg by mouth once johan* CHOLESTYRAMINE (WITH SUGAR) 4* Take 4 g by mouth three times * Patient not taking: Reported on 10/10/2018 SPIRONOLACTONE 25 MG TABLET Take 1 tablet by mouth twice * Patient not taking: Reported on 12/22/2018 AMLODIPINE 5 MG TABLET Take 1 tablet by mouth once d* LISINOPRIL 10 MG TABLET Take 1 tablet by mouth once d* METOPROLOL TARTRATE 25 MG TAB* Take 0.5 tablets by mouth twi * COLACE ORAL Take 240 mg by mouth twice da* AMIODARONE 200 MG TABLET Take 1 tablet by mouth once d* APIXABAN 5 MG TABLET Take 1 tablet by mouth twice * CLOPIDOGREL 75 MG TABLET Take 1 tablet by mouth once d* MELATONIN 10 MG CAPSULE Take by mouth. CALCIUM CARBONATE 600 MG (1,5* Take 1 tablet by mouth once d * Patient not taking: Reported on 10/10/2018 NITROGLYCERIN 0.4 MG SUBLINGU* Dissolve 1 tablet under the t * MAGNESIUM 250 MG TABLET 2 tablets in the morning and * Patient not taking: Reported on 08/08/2018 * THERAPEUTIC MULTIVITAMIN TABL* Take one(1) tablet daily. * FISH OIL 1,200 MG-144 MG-216 * one capsule every other day Problem List As Of Date 02/06/2019 Noted Resolved Essential hypertension, benign [I10] 07/26/2005 More... 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 More... Sciatica [M54.30] 08/29/2006 03/02/2016 PUD (peptic ulcer disease) [K27.9] 12/18/2009 Mild cognitive impairment with memory loss [G31*07/03/2012 0 07/26/2017 Class 3 severe obesity due to excess calories w*07/03/2012 0 08/08/2018 Magnesium deficiency [E61.2] 12/03/2013 03/02/2016 ASHD (arteriosclerotic heart disease) [I25.10] 10/08/2014 Acute myocardial infarction (HCC) [I21.9] 10/08/2014 Moderate aortic stenosis [I35.0] 11/25/2014 08/08/2018 Moderate aortic valve insufficiency [I35.1] 11/25/201408/08 Arthritis of both hands [M19.041, M19.042] 03/03/2015 Chronic congestive heart failure (HCC) [I50.9] 03/03/2015 Impaired fasting glucose [R73.01] 03/04/2015 Gastroesophageal reflux disease with esophagiti*02/12/2016 History of aortic valve replacement [Z95.2] 03/02/2016 More... 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 Atrial fibrillation (HCC) [I48.91] 03/02/2016 More... 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 1/2 hr before meal. Medications Discontinued During This Encounter omeprazole (PRILOSEC) 20 mg capsule 90 c* 1 08/10/20182018 Route: ORAL Sig: Take 1 capsule by mouth daily before breakfast. 1/2 hr before meal. Disc: Reason for discontinue is not on file. Encounter Status:Closed by ABI CRAIG CNP on 02/06/19 obsolete on 2019-01 OBSOLETE Refill (FAMPWS) Normal 01-26-2019 [facility] GALILEO HUSTON ([id number]) 1935 [address] [facility] Time Provider Department ([id number]) 01/26/19 ADAIR RODRIGUEZ III FAMPWS During your visit today, we recorded the following informati on about you: Silke Jain Pss 01/26/2019 1:45 PM Signed Patient's request for medication is as follows: Pending Prescriptions Disp Refills TRAMADOL 50 MG TABLET 60 tablet 0 Sig: Take 1 tablet by mouth twice daily for 30 days. RADHA Class: C-IV COSME: No Prescription(s) as above. Please process accordingly. Silke Jain Pss Heriberto Moncada LPN 01/26/2019 2:34 PM Signed Last refill 12/27/18 Qty: 60 with 0 refills Last ov 12/29/18 No appt scheduled Heriberto Moncada LPN 01/26/2019 6:24 PM Signed rx faxed to [facility]. Heriberto Moncada LPN Allergies As of Date: 01/26/2019 Noted Allergy Reaction bandaids [Other] 09/30/2005 LIPITOR (ATORVASTATIN CALCIUM) 07/22/2016 17 - Myalgia LYRICA (PREGABALIN) 11/30/2010 1 - Mental Status Change NIACIN 11/30/2010 14 - Other: See Comments Comments: myalgia ZOCOR (SIMVASTATIN) 08/09/2011 14 - Other: See Comments Comments: myalgia Date Reviewed: 12/29/2018 Reviewed by: Heriberto Moncada LPN - Fully Assessed Reason for Visit: Refill Request [94] Visit Diagnosis:Primary osteoarthritis of both knees [M17.0] Order(s):traMADol (ULTRAM) 50 mg tabletTake 1 ta blet by mouth twice daily for 30 days.Disp: 60 tabletRfl: 0 Prescriptions as of 01/26/2019 Sig: TRAMADOL 50 MG TABLET Take 1 tablet by mouth twice * COMPOUNDED PRESCRIPTION Knee High Compression Stockin* FUROSEMIDE 20 MG TABLET Take 0.5 tablets by mouth onc* DOXYCYCLINE MONOHYDRATE 100 M* Take 1 capsule by mouth twice * Patient not taking: Reported on 12/22/2018 LEVOTHYROXINE 125 MCG TABLET Take 1 tablet by mouth once d* OMEPRAZOLE 20 MG CAPSULE,MANUEL* Take 1 capsule by mouth daily * FUROSEMIDE 20 MG TABLET Take 1 tablet by mouth twice * Patient taking differently: Take 40 mg by mouth once johan* CHOLESTYRAMINE (WITH SUGAR) 4* Take 4 g by mouth three times * Patient not taking: Reported on 10/10/2018 SPIRONOLACTONE 25 MG TABLET Take 1 tablet by mouth twice * Patient not taking: Reported on 12/22/2018 AMLODIPINE 5 MG TABLET Take 1 tablet by mouth once d* LISINOPRIL 10 MG TABLET Take 1 tablet by mouth once d* METOPROLOL TARTRATE 25 MG TAB* Take 0.5 tablets by mouth twi * COLACE ORAL Take 240 mg by mouth twice da* AMIODARONE 200 MG TABLET Take 1 tablet by mouth once d* APIXABAN 5 MG TABLET Take 1 tablet by mouth twice * CLOPIDOGREL 75 MG TABLET Take 1 tablet by mouth once d* MELATONIN 10 MG CAPSULE Take by mouth. CALCIUM CARBONATE 600 MG (1,5* Take 1 tablet by mouth once d * Patient not taking: Reported on 10/10/2018 NITROGLYCERIN 0.4 MG SUBLINGU* Dissolve 1 tablet under the t * MAGNESIUM 250 MG TABLET 2 tablets in the morning and * Patient not taking: Reported on 08/08/2018 * THERAPEUTIC MULTIVITAMIN TABL* Take one(1) tablet daily. * FISH OIL 1,200 MG-144 MG-216 * one capsule every other day Problem List As Of Date 01/26/2019 Noted Resolved Essential hypertension, benign [I10] 07/26/2005 More... 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 More... Sciatica [M54.30] 08/29/2006 03/02/2016 PUD (peptic ulcer disease) [K27.9] 12/18/2009 Mild cognitive impairment with memory loss [G31*07/03/2012 0 07/26/2017 Class 3 severe obesity due to excess calories w*07/03/2012 0 08/08/2018 Magnesium deficiency [E61.2] 12/03/2013 03/02/2016 ASHD (arteriosclerotic heart disease) [I25.10] 10/08/2014 Acute myocardial infarction (HCC) [I21.9] 10/08/2014 Moderate aortic stenosis [I35.0] 11/25/2014 08/08/2018 Moderate aortic valve insufficiency [I35.1] 11/25/201408/08 Arthritis of both hands [M19.041, M19.042] 03/03/2015 Chronic congestive heart failure (HCC) [I50.9] 03/03/2015 Impaired fasting glucose [R73.01] 03/04/2015 Gastroesophageal reflux disease with esophagiti*02/12/2016 History of aortic valve replacement [Z95.2] 03/02/2016 More... 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 Atrial fibrillation (HCC) [I48.91] 03/02/2016 More... 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 Medications Discontinued During This Encounter traMADol (ULTRAM) 50 mg tablet 60 t* 0 12/27/2018 01/26/2019 Class: Print RX Route: ORAL Sig: Take 1 tablet by mouth twice daily for 30 days. Disc: Reason for discontinue is not on file. Encounter Status:Closed by ADAIR RODRIGUEZ III, MD on 01/26/19 progress on 2018-12 PROGRESS HNO ID: [id number] Normal 12-29-2018 [facility] Author: Abi Craig Goel ([id number]) Service: ? Author Type: Nurse Practitioner Type: Progress Notes Filed: 12/29/2018 6:01 PM Note Text: Chief Complaint Patient presents with: Recheck: was seen in Urgent care for left leg edema HPI Galileo Huston is a 83 year old female who presents here t [facility] for Above Complaints. Seen in on 12/22/18, note reviewed. Swelling bilateral LE: acute on chronic swelling bilateral L E, worsened [address] Mason changed medications, stopped Aldac tone and added Lasix. Currently on Eliquis, pmh DVT. She has been in contac t with Dr. Mason's office and the Lasix was increased to 40 mg bid. Not been wearing compression stockings. Planning on picking them up today Left groin pain: Xray completed and report reviewed. Onset a bout 3 weeks ago. Has been going to Chiropractor with some improvement. R an out of Tramadol which took the edge off. Taking tylenol with slig ht benefit. Has been taking tramadol 1-2 a day. Rx refilled per Dr. Veronica lema on 12/27/18. 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 States pain is actually feeling better [id number]. Feels unsteady on her feet, states pain with weight bearing and is having to sit down to put socks and pants on. Denies any numbness or tingling. Denies any fever or chills, no night pain. Denies any redness or swelling. Past medical history, appointments, medications, allergies r mirnaiewed. 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 - Atrial fibrillation (HCC) 03/02/2016 following CABG and aortic valve replacement - Cervicitis and endocervicitis - Chronic congestive heart failure (HCC) 03/03/2015 - CKD (chronic kidney disease) stage 3, GFR 30-59 ml/min ([facility]) 07/12/2017 - Coronary artery disease - Diverticulosis of colon (without mention of hemorrhage) Diverticulosis - Esophagitis - Heart attack (HCC) - History of aortic valve replacement 03/02/2016 - Hypertension - Hypothyroidism, acquired 07/12/2017 - Moderate aortic stenosis 11/25/2014 - Moderate aortic valve insufficiency 11/25/2014 - Osteoarthrosis, unspecified whether generalized or localiz ed, other specified sites - Paroxysmal atrial fibrillation (HCC) - PUD (peptic ulcer disease) 12/18/2009 - S/P CABG x 2 03/02/201601/2016--complicated by atrial fibrillation - Statin intolerance 07/22/2016 - Syncope - Takotsubo cardiomyopathy 02/2018 - Unspecified hemorrhoids without mention of complication Hemorrhoids Previous Surgical History PAST SURGICAL HISTORY Procedure Laterality Date - COLONOSCOP W/ OR W/O [facility] SPEC 06-09-04 Colonoscopy-repeat in - COLONOSCOP W/ OR W/O [facility] SPEC 04/10/15 Colonoscopy - COLPOSCOPY (VAGINOSCOPY) Colposcopy - EGD W/O OR W/BRUSH/WASH EGD - EGD W/O OR W/BRUSH/WASH 04/10/15 EGD - PAST SURGICAL HISTORY OF 10/18/14 heart cath- stent placed (at [place] by Dr Gomez) - TOTAL KNEE REPLACEMENT 12/23/2008 Knee replacement, total Family History FAMILY HISTORY Problem Relation Age of Onset - Heart Mother - Diabetes Mother - Alcohol/Drug Father - Thyroid Brother Patient Allergies ALLERGIES Allergen Reactions - Bandaids [Other] - Lipitor [Atorvastat* Myalgia - Lyrica [Pregabalin] Mental Status Change - Niacin Other: See Comments myalgia - Zocor [Simvastatin] Other: See Comments myalgia Current Medications Current Outpatient Medications on File Prior to Visit Medication Sig - traMADol (ULTRAM) 50 mg tablet Take 1 tablet by mouth twic e daily for 30 days. - levothyroxine (SYNTHROID) 125 mcg tablet Take 1 tablet by mouth once daily. Take on empty stomach. For Thyroid - omeprazole (PRILOSEC) 20 mg capsule Take 1 capsule by mout h daily before breakfast. 1/2 hr before meal. - furosemide (LASIX) 20 mg tablet Take 1 tablet by mouth twi ce daily. (Patient taking differently: Take 40 mg by mouth once daily. ) - amLODIPine (NORVASC) 5 mg tablet Take 1 tablet by mouth on ce daily. - lisinopril (ZESTRIL, PRINIVIL) 10 mg tablet Take 1 tablet by mouth once daily. - metoprolol tartrate, short acting, (LOPRESSOR) 25 mg table t Take 0.5 tablets by mouth twice daily. - docusate sodium (COLACE ORAL) Take 240 mg by mouth twice d aily. - amiodarone (CORDARONE) 200 mg tablet Take 1 tablet by mout h once daily. - apixaban (ELIQUIS) 5 mg tab(s) Take 1 tablet by mouth twic e daily. - clopidogrel (PLAVIX) 75 mg tablet Take 1 tablet by mouth o nce daily. - melatonin 10 mg cap Take by mouth. - nitroglycerin sublingual (NITROQUICK) 0.4 mg SL tablet Dis solve 1 tablet under the tongue as needed. FOR CHEST PAIN. IF NO RELIEF PATRICE L 911 - therapeutic multivitamin ORAL tablet Take one(1) tablet da melani. - fish oil/dha/epa(FISH OIL 1,200 MG-144 MG-216 MG CAP) one capsule every other day - furosemide (LASIX) 20 mg tablet Take 0.5 tablets by mouth once daily. - doxycycline monohydrate (MONODOX) 100 mg capsule Take 1 ca psule by mouth twice daily. (Patient not taking: Reported on 12/22/2018 ) - cholestyramine-sucrose (QUESTRAN) 4 gram powder Take 4 g b y mouth three times daily with meals. (Patient not taking: Reported on 09/15 ) - spironolactone (ALDACTONE) 25 mg tablet Take 1 tablet by m outh twice daily. (Patient not taking: Reported on 12/22/2018 ) - calcium carbonate 600 mg-cholecalciferol 200 units (CALCIU M 600 + D,3,) 600 mg(1,500mg) -200 unit tab Take 1 tablet by mouth once da melani. (Patient not taking: Reported on 10/10/2018 ) - Magnesium 250 mg tab 2 tablets in the morning and 2 tablet in the evening (Patient not taking: Reported on 08/08/2018 ) No current facility-administered medications on file prior t o visit. Social History Social History Tobacco Use - Smoking status: Never Smoker - Smokeless tobacco: Never Used Substance Use Topics - Alcohol use: No - Drug use: No Review of Symptoms REVIEW OF SYSTEMS GENERAL: No weight loss, malaise or fevers RESPIRATORY: Negative for cough, hemoptysis, wheezing, COPD, dyspnea or shortness of breath CARDIOVASCULAR: Negative for chest pain, leg swelling, hyper tension, CHF or palpitations, Positive for bilateral LE swelling EXAM: BP 128/60 Pulse (!) 54 Temp 36.6 ?C (97.9 ?F) Resp 16 Wt 88 kg (194 lb) BMI 37.89 kg/m? General Appearance: Well appearing, alert, in no acute distr ess, well-hydrated, well nourished.. Neck: Supple, no adenopathy; thyroid symmetric, normal size, Lungs: lungs clear to auscultation. No wheezing, rhonchi, ra les. Heart: RRR without murmur, gallop, or rubs. No ectopy. Musculoskeletal: No joint swelling, deformity, or tenderness , No pain left hip or groin with abduction/adduction and chauncey test. Limite d RANGE OF MOTION noted with internal rotation of left hip. + femoral p ulses. Unable to reproduce pain on exam table. Extremities: Bilateral LE edema L>R, 1+ pitting to knee. The re is diffuse mild erythema at sock line, no warmth or tenderness. Peripheral Pulses: Normal, Capillary refill <2secs, strong p eripheral pulses. Health Maintenance List LDL CHOLESTEROL due on 08/22/2019 DIABETES SCREEN due on 12/22/2021 DTAP,TDAP,TD(2 - Td) due on 08/10/2027 BONE DENSITY Completed ADULT PREVNAR-13 Completed INFLUENZA Completed PNEUMOVAX AGE 65 AND OVER WITH 5YR LOOKBACK Completed ASSESSMENT/PLAN: 1. Edema of both lower extremities due to peripheral venous insufficiency - ICD9: 459.81, ICD10: I87.2 (primary diagnosis) -Recommend compression socks, rx provided. - COMPOUNDED PRESCRIPTION 2. Groin pain, left - ICD9: 789.04, ICD10: R10.32 - OA left hip - CONSULT TO ORTHOPAEDICS 3. Pain of left hip joint - ICD9: 719.45, ICD10: M25.552 -OA left hip, Has Tramadol rx taking sparingly, may use Tyle nol in between. - CONSULT TO ORTHOPAEDICS Abi Craig, MSN PACKAGING SPECIALIST.CONSTRUCTION SAFETY CONSULTANT cnov on 2018-12-29 CNOV Office Visit (FAMPWS) Normal 12-30-19 19 [place] GALILEO Hall ([id number]) 1935 F NFR [place] Date Time Provider Department ([id number]) 12/29/18 1:00 PM ABI CRAIG During your visit today, we recorded the following informati on about you: Temperature Pulse Respiration Blood pressure 97.9 degrees 54/minute 16/minute 128/60 Weight 88 kg Abi Craig, MSN PACKAGING SPECIALIST.CONSTRUCTION SAFETY CONSULTANT 12/29/2018 6:01 PM Signed Chief Complaint Patient presents with: Recheck: was seen in Urgent care for left leg edema HPI Galileo Huston is a 83 year old female who presents here t [facility] for Above Complaints. Seen in UC on 12/22/18, note reviewed. Swelling bilateral LE: acute on chronic swelling bilateral L E, worsened [address] Mason changed medications, stopped Aldac tone and added Lasix. Currently on Eliquis, [facility] DVT. Sh e has been in contact with Dr. Mason's office and the Lasix was increased to 40 mg bid. Not been wearing compression stockings. Planning on picking them up today Left groin pain: Xray completed and report revtue. Onset about 3 weeks ago. Has been going to Chiropract or with some improvement. Ran out of Tramadol which took the edge off. Taking tylenol with slight benefit. Has been taking tramadol 1-2 a day. Rx refilled per Dr. Quintana on . 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 States pain is actually feeling better [id number]. Feels unsteady on her feet, states pain with weight bearing and is having to sit down to put socks and pants on. Denies any numbness or tingling. D enies any fever or chills, no night pain. Denies any redness or swelling. Past medical history, appointments, medications, allergies r eviewed. 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 out angina pectoris - Atrial fibrillation (HCC) 03/02/2016 following CABG and aortic valve replacement - Cervicitis and endocervicitis - Chronic congestive heart failure (HCC) 03/03/2015 - CKD (chronic kidney disease) stage 3, GFR 30-59 ml/min (HC C) 07/12/2017 - Coronary artery disease - Diverticulosis of colon (without mention of hemorrhage) Diverticulosis - Esophagitis - Heart attack (HCC) - History of aortic valve replacement 03/02/2016 - Hypertension - Hypothyroidism, acquired 07/12/2017 - Moderate aortic stenosis 11/25/2014 - Moderate aortic valve insufficiency 11/25/2014 - Osteoarthrosis, unspecifie d whether generalized or localized, other specified sites - Paroxysmal atrial fibrillation (HCC) - PUD (peptic ulcer disease) 12/18/2009 - S/P CABG x 2 03/02/201601/2016--complicated by atrial fibrillation - Statin intolerance 07/22/2016 - Syncope - Takotsubo cardiomyopathy 02/2018 - Unspecified hemorrhoids without mention of complication Hemorrhoids Previous Surgical History PAST SURGICAL HISTORY Procedure Laterality Date - COLONOSCOP W/ OR W/O [facility] SPEC 06-09-04 Colonoscopy-repeat in - COLONOSCOP W/ OR W/O [facility] SPEC 04/10/15 Colonoscopy - COLPOSCOPY (VAGINOSCOPY) Colposcopy - EGD W/O OR W/BRUSH/WASH EGD - EGD W/O OR W/BRUSH/WASH 04/10/15 EGD - PAST SURGICAL HISTORY OF 10/18/14 heart cath- stent placed (at [place] by Dr Gomez) - TOTAL KNEE REPLACEMENT 12/23/2008 Knee replacement, total Family History FAMILY HISTORY Problem Relation Age of Onset - Heart Mother - Diabetes Mother - Alcohol/Drug Father - Thyroid Brother Patient Allergies ALLERGIES Allergen Reactions - Bandaids [Other] - Lipitor [Atorvastat* Myalgia - Lyrica [Pregabalin] Mental Status Change - Niacin Other: See Comments myalgia - Zocor [Simvastatin] Other: See Comments myalgia Current Medications Current Outpatient Medications on File Prior to Visit Medication Sig - traMADol (ULTRAM) 50 mg tablet Take 1 tablet by mouth twic e daily for 30 days. - levothyroxine (SYNTHROID) 125 mcg tablet Take 1 tablet by mouth once daily. Take on empty stomach. For Thyroid - omeprazole (PRILOSEC) 20 mg capsule Take 1 capsule by mout h daily before breakfast. 1/2 hr before meal. - furosemide (LASIX) 20 mg tablet Take 1 tablet by mouth twice daily. (Patient taking differently: Take 40 mg by mouth once daily. ) - amLODIPine (NORVASC) 5 mg tablet Take 1 tablet by mouth on ce daily. - lisinopril (ZESTRIL, PRINIVIL) 10 mg tablet Take 1 tablet by mouth once daily. - metoprolol tartrate, short acting, (LO PRESSOR) 25 mg tablet Take 0.5 tablets by mouth twice daily. - docusate sodium (COLACE ORAL) Take 240 mg by mouth twice d aily. - amiodarone (CORDARONE) 200 mg tablet Take 1 tablet by mout h once daily. - apixaban (ELIQUIS) 5 mg tab(s) Take 1 tablet by mouth twic e daily. - clopidogrel (PLAVIX) 75 mg tablet Take 1 tablet by mouth o nce daily. - melatonin 10 mg cap Take by mouth. - nitroglycerin sublingual (NITROQUICK) 0.4 mg SL tablet Dis solve 1 tablet under the tongue as needed. FOR CHEST PAIN. IF NO RELIEF PATRICE L 911 - therapeutic multivitamin ORAL tablet Take one(1) tablet da melani. - fish oil/dha/epa(FISH OIL 1,200 MG-144 MG-216 MG CAP) one capsule every other day - furosemide (LASIX) 20 mg tablet Take 0.5 tablets by mouth once daily. - doxycycline monohydrate (MONODOX) 100 mg capsule Take 1 ca psule by mouth twice daily. (Patient not taking: Reported on 12/22/2018 ) - cholestyramine-sucrose (QU ESTRAN) 4 gram powder Take 4 g by mouth three times daily with meals. (Patient not taking: Reported on 10/10/2018 ) - spironolactone (ALDACTONE) 25 mg tablet Take 1 tablet by mouth twice daily. (Patient not taking: Reported on 12/22/2018 ) - calcium carbonate 600 mg-cholecalciferol 200 u nits (CALCIUM 600 + D,3,) 600 mg(1,500mg) -200 unit tab Take 1 tablet by mouth once daily. (Patient not taking: Reported on 10/10/2018 ) - Magnesium 250 mg tab 2 tablets in the morning and 2 tabl et in the evening (Patient not taking: Reported on 08/08/2018 ) No current facility-administered medications on file prior t o visit. Social History Social History Tobacco Use - Smoking status: Never Smoker - Smokeless tobacco: Never Used Substance Use Topics - Alcohol use: No - Drug use: No Review of Symptoms REVIEW OF SYSTEMS GENERAL: No weight loss, malaise or fevers RESPIRATORY: Negative for cough, hemoptysis, wheezing, COPD, dyspnea or shortness of breath CARDIOVASCULAR: Negative for chest pain, leg swelling, hyp ertension, CHF or palpitations, Positive for bilateral LE swelling EXAM: BP 128/60 Pulse (!) 54 Temp 36.6 ?C (97.9 ?F) Resp 1 6 Wt 88 kg (194 lb) BMI 37.89 kg/m? General Appearance: Well pablo earing, alert, in no acute distress, well-hydrated, well nourished.. Neck: Supple, no adenopathy; thyroid symmetric, normal size, Lungs: lungs clear to auscultation. No wheezing, rhonchi, ra les. Heart: RRR without murmur, gallop, or rubs. No ectopy. Musculoskeletal: No joint swelling, defo rmity, or tenderness, No pain left hip or groin with abduction/addu ction and chauncey test. Limited RANGE OF MOTION noted with internal rotation of left hip. + fe moral pulses. Unable to reproduce pain on exam table. Extremities: Bilateral LE edema L>R, 1+ pitting to knee. There is diffuse mild erythema at sock line, no warmth or tenderness. Peripheral Pulses: Normal, Capillary refill <2se cs, strong peripheral pulses. Health Maintenance List LDL CHOLESTEROL due on 08/22/2019 DIABETES SCREEN due on 12/22/2021 DTAP,TDAP,TD(2 - Td) due on 08/10/2027 BONE DENSITY Completed ADULT PREVNAR-13 Completed INFLUENZA Completed PNEUMOVAX AGE 65 AND OVER WITH 5YR LOOKBACK Completed ASSESSMENT/PLAN: 1. Edema of both lower extremities due to peripheral venou s insufficiency - ICD9: 459.81, ICD10: I87.2 (primary diagnosis) -Recommend compression socks, rx provided. - COMPOUNDED PRESCRIPTION 2. Groin pain, left - ICD9: 789.04, ICD10: R10.32 - OA left hip - CONSULT TO ORTHOPAEDICS 3. Pain of left hip joint - ICD9: 719.45, ICD10: M25.552 -OA left hip, Has Tramadol rx taking sparingly, may use Ty lenol in between. - CONSULT TO ORTHOPAEDICS Abi Craig, MSN PACKAGING SPECIALIST.CONSTRUCTION SAFETY CONSULTANT Referring Provider: SELF [[id number]] Allergies As of Date: 12/29/2018 Noted Allergy Reaction bandaids [Other] 09/30/2005 LIPITOR (ATORVASTATIN CALCIUM) 07/22/2016 17 - Myalgia LYRICA (PREGABALIN) 11/30/2010 1 - Mental Status Change NIACIN 11/30/2010 14 - Other: See Comments Comments: myalgia ZOCOR (SIMVASTATIN) 08/09/2011 14 - Other: See Comments Comments: myalgia Date Reviewed: 12/29/2018 Reviewed by: Heriberto Moncada LPN - Fully Assessed Reason for Visit: Recheck [92] Cmt: was seen in Urgent care for left leg edema Primary Visit Diagnosis:Edema of both lower extremities due to peripheral venous insufficiency [I87.2] Other Visit Diagnoses:Groin pain, left [R10.32] Pain of left hip joint [M25.552] Order(s):Compression StockingsKnee High Compression Stocki ngs 15-20 mm, DX: Peripheral venous insufficiency, Bilateral Lower Extremity e demaDisp: 4 EachRfl: 1 CONSULT TO ORTHOPAEDICS [9026] Order #: [id number]: 1 Prescriptions as of 12/29/2018 Sig: TRAMADOL 50 MG TABLET Take 1 tablet by mouth twice * LEVOTHYROXINE 125 MCG TABLET Take 1 tablet by mouth once d* OMEPRAZOLE 20 MG CAPSULE,MANUEL* Take 1 capsule by mouth daily * FUROSEMIDE 20 MG TABLET Take 1 tablet by mouth twice * Patient taking differently: Take 40 mg by mouth once johan* AMLODIPINE 5 MG TABLET Take 1 tablet by mouth once d* LISINOPRIL 10 MG TABLET Take 1 tablet by mouth once d* METOPROLOL TARTRATE 25 MG TAB* Take 0.5 tablets by mouth twi * COLACE ORAL Take 240 mg by mouth twice da* AMIODARONE 200 MG TABLET Take 1 tablet by mouth once d* APIXABAN 5 MG TABLET Take 1 tablet by mouth twice * CLOPIDOGREL 75 MG TABLET Take 1 tablet by mouth once d* MELATONIN 10 MG CAPSULE Take by mouth. NITROGLYCERIN 0.4 MG SUBLINGU* Dissolve 1 tablet under the t * * THERAPEUTIC MULTIVITAMIN TABL* Take one(1) tablet daily. * FISH OIL 1,200 MG-144 MG-216 * one capsule every other day COMPOUNDED PRESCRIPTION Knee High Compression Stockin* FUROSEMIDE 20 MG TABLET Take 0.5 tablets by mouth onc* DOXYCYCLINE MONOHYDRATE 100 M* Take 1 capsule by mouth twice * Patient not taking: Reported on 12/22/2018 CHOLESTYRAMINE (WITH SUGAR) 4* Take 4 g by mouth three times * Patient not taking: Reported on 10/10/2018 SPIRONOLACTONE 25 MG TABLET Take 1 tablet by mouth twice * Patient not taking: Reported on 12/22/2018 CALCIUM CARBONATE 600 MG (1,5* Take 1 tablet by mouth once d * Patient not taking: Reported on 10/10/2018 MAGNESIUM 250 MG TABLET 2 tablets in the morning and * Patient not taking: Reported on 08/08/2018 Medication notes this encounter FUROSEMIDE 20 MG TABLET >> Heriberto Moncada LPN 12/29/2018 12:55 PM >> HERIBERTO MONCADA LPN TueDec 29, 2018 12:55 PM Taking 40 mg twice daily. Heriberto Moncada LPN Problem List As Of Date 12/29/2018 Noted Resolved Essential hypertension, benign [I10] 07/26/2005 More... 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 More... Sciatica [M54.30] 08/29/2006 03/02/2016 PUD (peptic ulcer disease) [K27.9] 12/18/2009 Mild cognitive impairment with memory loss [G31*07/03/2012 0 07/26/2017 Class 3 severe obesity due to excess calories w*07/03/2012 0 08/08/2018 Magnesium deficiency [E61.2] 12/03/2013 03/02/2016 ASHD (arteriosclerotic heart disease) [I25.10] 10/08/2014 Acute myocardial infarction (HCC) [I21.9] 10/08/2014 Moderate aortic stenosis [I35.0] 11/25/2014 08/08/2018 Moderate aortic valve insufficiency [I35.1] 11/25/201408/08 Arthritis of both hands [M19.041, M19.042] 03/03/2015 Chronic congestive heart failure (HCC) [I50.9] 03/03/2015 Impaired fasting glucose [R73.01] 03/04/2015 Gastroesophageal reflux disease with esophagiti*02/12/2016 History of aortic valve replacement [Z95.2] 03/02/2016 More... 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 Atrial fibrillation (HCC) [I48.91] 03/02/2016 More... 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 Follow-up and Disposition History Recorded Encounter Status:Closed by ABI CRAIG CNP on 12/29/18 obsolete on 2018-12 OBSOLETE Refill (FAMPWS) Normal 12-27-2018 [facility] GALILEO HUSTON ([id number]) 1935 F [place] Date Time Provider Department ([id number]) 12/27/18 ADAIR RODRIGUEZ III FAMPWS During your visit today, we recorded the following informati on about you: Ana David Pss 12/27/2018 4:13 PM Signed Patient has been identified by name and date of : Yes Pending Prescriptions Disp Refills TRAMADOL 50 MG TABLET 60 tablet 0 Sig: Take 1 tablet by mouth twice daily for 30 days. RADHA Class: C-IV COSME: No RX INSTRUCTIONS: Controlled medication - must be called in. Ana Stern CMA, MA 12/27/2018 4:39 PM Signed GEORGE: 08/08/2018 NOV: 12/29/2018 Last prescription: 11/14/2018--30 day--0 refills Pharmacy checked? Yes Patient has been identified by name and date of : Yes Pending Prescriptions Disp Refills TRAMADOL 50 MG TABLET 60 tablet 0 Sig: Take 1 tablet by mouth twice daily for 30 days. RADHA Class: C-IV COSME: No RX INSTRUCTIONS: Form to be faxed to [facility] [place]: fax [phone]. GILMER Van MD 12/27/2018 4:53 PM Signed OK to refill as ordered MD Liyah Zuniga Ma 12/27/2018 5:00 PM Signed rx faxed to [facility]. Liyah Singer Ma Allergies As of Date: 12/27/2018 Noted Allergy Reaction bandaids [Other] 09/30/2005 LIPITOR (ATORVASTATIN CALCIUM) 07/22/2016 17 - Myalgia LYRICA (PREGABALIN) 11/30/2010 1 - Mental Status Change NIACIN 11/30/2010 14 - Other: See Comments Comments: myalgia ZOCOR (SIMVASTATIN) 08/09/2011 14 - Other: See Comments Comments: myalgia Date Reviewed: 12/22/2018 Reviewed by: Kiya Perera Cma - Fully Assessed Reason for Visit: Refill Request [94] Visit Diagnosis:Primary osteoarthritis of both knees [M17.0] Order(s):traMADol (ULTRAM) 50 mg tabletTake 1 ta blet by mouth twice daily for 30 days.Disp: 60 tabletRfl: 0 Prescriptions as of 12/27/2018 Sig: TRAMADOL 50 MG TABLET Take 1 tablet by mouth twice * FUROSEMIDE 20 MG TABLET Take 0.5 tablets by mouth onc* DOXYCYCLINE MONOHYDRATE 100 M* Take 1 capsule by mouth twice * Patient not taking: Reported on 12/22/2018 LEVOTHYROXINE 125 MCG TABLET Take 1 tablet by mouth once d* OMEPRAZOLE 20 MG CAPSULE,MANUEL* Take 1 capsule by mouth daily * FUROSEMIDE 20 MG TABLET Take 1 tablet by mouth twice * Patient taking differently: Take 40 mg by mouth once johan* CHOLESTYRAMINE (WITH SUGAR) 4* Take 4 g by mouth three times * Patient not taking: Reported on 10/10/2018 SPIRONOLACTONE 25 MG TABLET Take 1 tablet by mouth twice * Patient not taking: Reported on 12/22/2018 AMLODIPINE 5 MG TABLET Take 1 tablet by mouth once d* LISINOPRIL 10 MG TABLET Take 1 tablet by mouth once d* METOPROLOL TARTRATE 25 MG TAB* Take 0.5 tablets by mouth twi * COLACE ORAL Take 240 mg by mouth twice da* AMIODARONE 200 MG TABLET Take 1 tablet by mouth once d* APIXABAN 5 MG TABLET Take 1 tablet by mouth twice * CLOPIDOGREL 75 MG TABLET Take 1 tablet by mouth once d* MELATONIN 10 MG CAPSULE Take by mouth. CALCIUM CARBONATE 600 MG (1,5* Take 1 tablet by mouth once d * Patient not taking: Reported on 10/10/2018 NITROGLYCERIN 0.4 MG SUBLINGU* Dissolve 1 tablet under the t * MAGNESIUM 250 MG TABLET 2 tablets in the morning and * Patient not taking: Reported on 08/08/2018 * THERAPEUTIC MULTIVITAMIN TABL* Take one(1) tablet daily. * FISH OIL 1,200 MG-144 MG-216 * one capsule every other day Problem List As Of Date 12/27/2018 Noted Resolved Essential hypertension, benign [I10] 07/26/2005 More... 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 More... Sciatica [M54.30] 08/29/2006 03/02/2016 PUD (peptic ulcer disease) [K27.9] 12/18/2009 Mild cognitive impairment with memory loss [G31*07/03/2012 0 07/26/2017 Class 3 severe obesity due to excess calories w*07/03/2012 0 08/08/2018 Magnesium deficiency [E61.2] 12/03/2013 03/02/2016 ASHD (arteriosclerotic heart disease) [I25.10] 10/08/2014 Acute myocardial infarction (HCC) [I21.9] 10/08/2014 Moderate aortic stenosis [I35.0] 11/25/2014 08/08/2018 Moderate aortic valve insufficiency [I35.1] 11/25/201408/08 Arthritis of both hands [M19.041, M19.042] 03/03/2015 Chronic congestive heart failure (HCC) [I50.9] 03/03/2015 Impaired fasting glucose [R73.01] 03/04/2015 Gastroesophageal reflux disease with esophagiti*02/12/2016 History of aortic valve replacement [Z95.2] 03/02/2016 More... 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 Atrial fibrillation (HCC) [I48.91] 03/02/2016 More... 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 Medications Discontinued During This Encounter traMADol (ULTRAM) 50 mg tablet 60 t* 0 11/14/2018 12/27/2018 Class: Print RX Route: ORAL Sig: Take 1 tablet by mouth twice daily for 30 days. Disc: Reason for discontinue is not on file. Encounter Status:Closed by LIYAH SINGER MA on 12/27/18 xr hip 3v pelv+ ap/lat lt on 2018-12-22 XR HIP 3V PELV+ * * *Final Report* * * Normal 1 02-21-2018 [facility] AP/LAT LT DATE OF EXAM: Dec 22 2018 9:02AM [place] ([id number]) WOX [id number] - XR HIP 3V PELV+ AP/LAT LT / PROCEDURE REASON: Left hip pain * * * * Physician Interpretation * * * * HISTORY: Left hip pain left anterior hip and groin pain. Has swelling distal posterior calf of left leg this morning. TECHNIQUE: AP pelvis and AP frog lateral left hip COMPARISON: None RESULT: Generalized bony demineralization. Minimal presumabl y degenerative narrowing of both hip joints. Femoral heads pablo ear intact. SI joints appear intact. Degenerative changes in the lower l umbar spine. IMPRESSION: Mild narrowing of hip joints. Demineralization. Culinary Arts Teacher: PSCB Transcribe Date/Time: Dec 22 2018 9:07A Dictated by : EUSEBIA FELDMAN MD This examination was interpreted and the report reviewed and electronically signed by: EUSEBIA FELDMAN MD on Dec 22 2018 9:09AM EST [id number] progress on 2018-12 PROGRESS HNO ID: [id number] Normal 12-22-2018 [facility] Author: Arlene Napier [place] ([id number]) Service: ? Author Type: ? Type: Progress Notes Filed: 12/22/2018 9:02 AM Note Text: Radiology Service Progress Note PATIENT NAME: Galileo Huston DATE OF SERVICE: December 22, 2018 TIME: 8:53 AM PATIENT IDENTITY VERIFICATION COMPLETED USING TWO (2) METHOD S: Name and Date of confirmed by patient verbally. PATIENT GENDER DATA: Female. status: : No status: NO. PATIENT RELEVANT IMPLANT DATA REVIEWED: Not Applicable RADIOLOGY DEPARTMENT: General X-ray: Exam(s) Completed: Pelv is X-Ray: Pelvis with Hip Left PERIPHERAL IV DATA: Not applicable SIGNED BY: Arlene Napier December 22, 2018 8:53 AM PROGRESS HNO ID: [id number] Normal 12-22-2018 [facility] Author: Sonu Keith) Toni [place] ([id number]) Service: ? Author Type: Physician Psychological Examiner Type: Progress Notes Filed: 12/25/2018 9:10 PM Note Text: 12/22/2018 Patient presents with: Edema: (left) calf swelling/redness/warmth x yesterday SUBJECTIVE: This is a 83 year old that is here today for Com plaint(s) of DAX LE swelling. Hx of chronic DAX LEedema. Left calf with i ncreased swelling. PMH DVT, currently on Eliquis. No erythema or feve r/chills. Denies chest pain, SOB. Currently on lasix 40 mg daily. Also on norvasc that was recently decreased to 5 mg from 10 mg by cardiology . [place] like swelling did improve somewhat after decreasing this dose. No t wearing compression stockings. Also notes left hip pain, chronic, that will radiate to the groin . No erythema, edema, rash, injury/trauma. Has tramadol in the AM and then tylenol in the afternoon prn PAST MEDICAL HISTORY Diagnosis Date - Acute on chronic combined systolic and diastolic CHF (eric estive heart failure) ([facility]) 07/12/2017 - Atherosclerotic heart disease of [place] coronary artery wi out angina pectoris - Atrial fibrillation ([facility]) 03/02/2016 following CABG and aortic valve replacement - Cervicitis and endocervicitis - Chronic congestive heart failure ([facility]) 03/03/2015 - CKD (chronic kidney disease) stage 3, GFR 30-59 ml/min (HC C) 07/12/2017 - Coronary artery disease - Diverticulosis of colon (without mention of hemorrhage) Diverticulosis - Esophagitis - Heart attack ([facility]) - History of aortic valve replacement 03/02/2016 - Hypertension - Hypothyroidism, acquired 07/12/2017 - Moderate aortic stenosis 11/25/2014 - Moderate aortic valve insufficiency 11/25/2014 - Osteoarthrosis, unspecified whether generalized or localiz ed, other specified sites - Paroxysmal atrial fibrillation ([facility]) - PUD (peptic ulcer disease) 12/18/2009 - S/P CABG x 2 03/02/201601/2016--complicated by atrial fibrillation - Statin intolerance 07/22/2016 - Syncope - Takotsubo cardiomyopathy 02/2018 - Unspecified hemorrhoids without mention of complication Hemorrhoids ALLERGIES Bandaids [Other]; Lipitor [Atorvastatin Calcium]; Lyrica [Pregabalin]; Niacin; Zocor [Simvastatin] MEDICATIONS Current Outpatient Medications: traMADol (ULTRAM) 50 mg tablet Take 1 tablet by mouth twice daily for 30 days. levothyroxine (SYNTHROID) 125 mcg tablet Take 1 tablet by [facility] once daily. Take on empty stomach. For Thyroid omeprazole (PRILOSEC) 20 mg capsule Take 1 capsule by mouth daily before breakfast. 1/2 hr before meal. furosemide (LASIX) 20 mg tablet Take 1 tablet by mouth twice daily. (Patient taking differently: Take 40 mg by mouth once daily. ) amLODIPine (NORVASC) 5 mg tablet Take 1 tablet by mouth once daily. lisinopril (ZESTRIL, PRINIVIL) 10 mg tablet Take 1 tablet by mouth once daily. metoprolol tartrate, short acting, (LOPRESSOR) 25 mg tablet Take 0.5 tablets by mouth twice daily. amiodarone (CORDARONE) 200 mg tablet Take 1 tablet by mouth once daily. apixaban (ELIQUIS) 5 mg tab(s) Take 1 tablet by mouth twice daily. clopidogrel (PLAVIX) 75 mg tablet Take 1 tablet by mouth onc e daily. melatonin 10 mg cap Take by mouth. nitroglycerin sublingual (NITROQUICK) 0.4 mg SL tablet Disso lve 1 tablet under the tongue as needed. FOR CHEST PAIN. IF NO RELIEF PATRICE L 911 doxycycline monohydrate (MONODOX) 100 mg capsule Take 1 caps ule by mouth twice daily. (Patient not taking: Reported on 12/22/2018 ) cholestyramine-sucrose (QUESTRAN) 4 gram powder Take 4 g by mouth three times daily with meals. (Patient not taking: Reported on 09/15 ) spironolactone (ALDACTONE) 25 mg tablet Take 1 tablet by jovana th twice daily. (Patient not taking: Reported on 12/22/2018 ) docusate sodium (COLACE ORAL) Take 240 mg by mouth twice sandy ly. calcium carbonate 600 mg-cholecalciferol 200 units (CALCIUM 600 + D,3,) 600 mg(1,500mg) -200 unit tab Take 1 tablet by mouth once da melani. (Patient not taking: Reported on 10/10/2018 ) Magnesium 250 mg tab 2 tablets in the morning and 2 tablet i n the evening (Patient not taking: Reported on 08/08/2018 ) therapeutic multivitamin ORAL tablet Take one(1) tablet johan y. fish oil/dha/epa(FISH OIL 1,200 MG-144 MG-216 MG CAP) one ca psule every other day No current facility-administered medications for this visit. SOCIAL HISTORY Social History Socioeconomic History Marital status: Spouse name: Not on file Number of children: Not on file Years of education: Not on file Highest education level: Not on file Occupational History Not on file Social Needs Financial resource strain: Not on file Food insecurity: Worry: Not on file Inability: Not on file Transportation needs: Medical: Not on file Non-medical: Not on file Tobacco Use Smoking status: Never Smoker Smokeless tobacco: Never Used Substance and Sexual Activity Alcohol use: No Drug use: No Sexual activity: Not on file Lifestyle Physical activity: Days per week: Not on file Minutes per session: Not on file Stress: Not on file Relationships Social connections: Talks on phone: Not on file Gets together: Not on file Attends caodaism service: Not on file Active member of club or organization: Not on file Attends meetings of clubs or organizations: Not on file Relationship status: Not on file Intimate partner violence: Fear of current or ex partner: Not on file Emotionally abused: Not on file Physically abused: Not on file Forced sexual activity: Not on file Other Topics Concerns: Not on file Social History Narrative Not on file REVIEW OF SYSTEMS See HPI OBJECTIVE: BP 140/62 Pulse 62 Temp 36.8 ?C (98.2 ?F) (Tympanic) R delicia 16 Wt 90.4 kg (199 lb 6.4 oz) SpO2 97% BMI 38.94 kg/m? APPEARANCE Well appearing, alert, in no acute distress, well -hydrated, well nourished. EXTREMITIES DAX LE edema, L>R. Extremities normal, No deform ities, No skin discoloration, No edema and Normal pulses bilaterally. No calf pain. LE area mildly tender DAX. Normal ROM hips DAX. No erythema, warmth, rash. + tenderness with internal rotation and flexion of lef t hip. ASSESSMENT/PLAN: 1. Left hip pain - ICD9: 719.45, ICD10: M25.552 (primary gita gnosis) Mild OA Recommend f/u with PCP/possible ortho consult Tylenol prn - XR HIP GENERAL 3V PELV/AP/LAT LT 2. Leg swelling - ICD9: 729.81, ICD10: M79.89 Elevation, compresion stockings Currently on eliquis-hold on US Increase lasix to 60 mg daily and f/u in 1 week with PCP. Stat bmp today - BASIC MEABOLIC PNL - FUROSEMIDE 20 MG TABLET The patient indicates understanding of these issues and agre es with the plan. Reviewed red flags and when to seek care sooner. Sonu Mackey PA-C cnov on 2018-12-22 CNOV Office Visit (UCWSTR) Normal 12-23-19 [place] [facility] GALILEO HUSTON ([id number]) 1935 F NFR [place] Date Time Provider Department ([id number]) 12/22/18 8:15 AM SONU MACKEY (CHIKIS) [facility] During your visit today, we recorded the following informati on about you: Temperature Pulse Respiration Blood pressure 98.2 degrees 62/minute 16/minute 140/62 Weight 90.4 kg Sonu Mackey PA-C 12/25/2018 9:10 PM Signed 12/22/2018 Patient presents with: Edema: (left) calf swelling/redness/warmth x yesterday SUBJECTIVE: This is a 83 yea r old that is here today for Complaint(s) of DAX LE swelling. Hx of chronic DAX LEedema. Left calf with increa sed swelling. PMH DVT, currently on Eliquis. No erythema or fever/chills. Nils noel chest pain, SOB. Currently on lasix 40 mg daily. Also on norvasc that wa s recently decreased to 5 mg from 10 mg by cardiology. [place] like srinivasa bailey did improve somewhat after decreasing this dose. Not wearing compression stockings. Also notes left hip pain, chronic, that will radiate to the groin . No erythema, edema, rash, injury/trauma. Has tramad ol in the AM and then tylenol in the afternoon prn PAST MEDICAL HISTORY Diagnosis Date - Acute on chronic combined systolic and diastolic CHF (eric estive heart failure) ([facility]) 07/12/2017 - Atherosclerotic heart disease of [place] coronary artery wi out angina pectoris - Atrial fibrillation ([facility]) 03/02/2016 following CABG and aortic valve replacement - Cervicitis and endocervicitis - Chronic congestive heart failure ([facility]) 03/03/2015 - CKD (chronic kidney disease) stage 3, GFR 30-59 ml/min (HC C) 07/12/2017 - Coronary artery disease - Diverticulosis of colon (without mention of hemorrhage) Diverticulosis - Esophagitis - Heart attack (HCC) - History of aortic valve replacement 03/02/2016 - Hypertension - Hypothyroidism, acquired 07/12/2017 - Moderate aortic stenosis 11/25/2014 - Moderate aortic valve insufficiency 11/25/2014 - Osteoarthrosis, unspecifie d whether generalized or localized, other specified sites - Paroxysmal atrial fibrillation (HCC) - PUD (peptic ulcer disease) 12/18/2009 - S/P CABG x 2 03/02/201601/2016--complicated by atrial fibrillation - Statin intolerance 07/22/2016 - Syncope - Takotsubo cardiomyopathy 02/2018 - Unspecified hemorrhoids without mention of complication Hemorrhoids ALLERGIES Bandaids [Other]; Lipitor [Atorvastatin Calcium]; Lyrica [Pregabalin]; Niacin; Zocor [Simvastatin] MEDICATIONS Current Outpatient Medications: traMADol (ULTRAM) 50 mg tablet Take 1 ta blet by mouth twice daily for 30 days. levothyroxine (SYNTHROID) 125 mcg tablet Take 1 tablet by mouth once daily. Take on empty stomach. For Thyroid omeprazole (PRILOSEC) 20 mg capsule Take 1 capsule by mouth daily before breakfast. 1/2 hr before meal. furosemide (LASIX) 20 mg tablet Take 1 tablet by mouth twice daily. (Patient taking differently: Take 40 mg by mouth once daily. ) amLODIPine (NORVASC) 5 mg tablet Take 1 tablet by mouth once daily. lisinopril (ZESTRIL, PRINIVIL) 10 mg tab let Take 1 tablet by mouth once daily. metoprolol tartrate, short a cting, (LOPRESSOR) 25 mg tablet Take 0.5 tablets by mouth twice daily. amiodarone (CORDARONE) 200 mg tablet Take 1 tablet by mouth once daily. apixaban (ELIQUIS) 5 mg tab(s) Take 1 tablet by mouth twice daily. clopidogrel (PLAVIX) 75 mg tablet Take 1 tablet by mouth onc e daily. melatonin 10 mg cap Take by mouth. nitroglycerin sublingual (NITROQUICK) 0. 4 mg SL tablet Dissolve 1 tablet under the tongue as needed. FOR CHEST PAIN. IF NO RELIEF CALL 911 doxycycline monohydrate (MONODOX) 100 mg capsule Take 1 capsule by mouth twice daily. (Patient not taking: Reported on 12/22/2018 ) cholestyramine-sucrose (QUESTRAN) 4 gram powder Take 4 g by mouth three times daily with meals. (Patient not taking: Reported on 10/10/2018 ) spironolactone (ALDACTONE) 25 mg tablet Take 1 tablet by m outh twice daily. (Patient not taking: Reported on 12/22/2018 ) docusate sodium (COLACE ORAL) Take 240 mg by mouth twice sandy ly. calcium carbonate 600 mg-cholecalciferol 200 units (CALCIU M 600 + D,3,) 600 mg(1,500mg) -200 unit tab Take 1 tablet by mouth once daily. (Patient not taking: Reported on 10/10/2018 ) Magnesium 250 mg tab 2 tablets in the morning and 2 tablet i n the evening (Patient not taking: Reported on 08/08/2018 ) therapeutic multivitamin ORAL tablet Take one(1) tablet johan y. fish oil/dha/epa(FISH OIL 1,200 MG-144 MG-216 MG CAP) one capsule every other day No current facility-administered medications for this visit. SOCIAL HISTORY Social History Socioeconomic History Marital status: Spouse name: Not on file Number of children: Not on file Years of education: Not on file Highest education level: Not on file Occupational History Not on file Social Needs Financial resource strain: Not on file Food insecurity: Worry: Not on file Inability: Not on file Transportation needs: Medical: Not on file Non-medical: Not on file Tobacco Use Smoking status: Never Smoker Smokeless tobacco: Never Used Substance and Sexual Activity Alcohol use: No Drug use: No Sexual activity: Not on file Lifestyle Physical activity: Days per week: Not on file Minutes per session: Not on file Stress: Not on file Relationships Social connections: Talks on phone: Not on file Gets together: Not on file Attends caodaism service: Not on file Active member of club or organization: Not on file Attends meetings of clubs or organizations: Not on file Relationship status: Not on file Intimate partner violence: Fear of current or ex partner: Not on file Emotionally abused: Not on file Physically abused: Not on file Forced sexual activity: Not on file Other Topics Concerns: Not on file Social History Narrative Not on file REVIEW OF SYSTEMS See HPI OBJECTIVE: BP 140/62 Pulse 62 Temp 36.8 ?C (98.2 ?F) (Tympanic) R delicia 16 Wt 90.4 kg (199 lb 6.4 oz) SpO2 97% BMI 38.94 kg/m? APPEARANCE Well appearing, alert, in no acute distress, we ll-hydrated, well nourished. EXTREMITIES DAX LE edema, L>R. Extremities normal, No deform ities, No skin discoloration, No edema and Normal pulses bilaterally. No calf pain. LE area mildly tender DAX. Normal ROM hips DAX. No erythema, warmth, rash. + tenderness with internal rotation and flexion of left hip. ASSESSMENT/PLAN: 1. Left hip pain - ICD9: 719.45, ICD10: M25.552 (primary gita gnosis) Mild OA Recommend f/u with PCP/possible ortho consult Tylenol prn - XR HIP GENERAL 3V PELV/AP/LAT LT 2. Leg swelling - ICD9: 729.81, ICD10: M79.89 Elevation, compresion stockings Currently on eliquis-hold on US Increase lasix to 60 mg daily and f/u in 1 week with PCP. Stat bmp today - BASIC MEABOLIC PNL - FUROSEMIDE 20 MG TABLET The patient indicates understanding of these iss ues and agrees with the plan. Reviewed red flags and when to seek care sooner. CHIKIS Patterson PA-C 12/22/2018 9:26 AM Signed Elevate Legs Add lasix 10 mg (half tab in the evening). In addition to your 40 mg in the morning. Follow up next week Seek care sooner for any worsening symptoms-Fever, worseni ng pain, redness, swelling of the leg. Referring Provider: SELF [200] Allergies As of Date: 12/22/2018 Noted Allergy Reaction bandaids [Other] 09/30/2005 LIPITOR (ATORVASTATIN CALCIUM) 07/22/2016 17 - Myalgia LYRICA (PREGABALIN) 11/30/2010 1 - Mental Status Change NIACIN 11/30/2010 14 - Other: See Comments Comments: myalgia ZOCOR (SIMVASTATIN) 08/09/2011 14 - Other: See Comments Comments: myalgia Date Reviewed: 12/22/2018 Reviewed by: Kiya Dilma Director Education - Fully Assessed Reason for Visit: Edema [39] Cmt: (left) calf swelling/redness/warmth x yester day Primary Visit Diagnosis:Left hip pain [M25.552] Other Visit Diagnosis:Leg swelling [M79.89] Order(s):XR HIP GENERAL 3V PELV/AP/LAT L T [6123311] Order #: [id number] FUTURE BASIC METABOLIC PNL [SQBMP] Order #: [id number] FUTURE furosemide (LASIX) 20 mg tabletTake 0.5 tablets by mouth onc e daily.Disp: 20 tabletRfl: 0 Prescriptions as of 12/22/2018 Sig: TRAMADOL 50 MG TABLET Take 1 tablet by mouth twice * LEVOTHYROXINE 125 MCG TABLET Take 1 tablet by mouth once d* OMEPRAZOLE 20 MG CAPSULE,MANUEL* Take 1 capsule by mouth daily * FUROSEMIDE 20 MG TABLET Take 1 tablet by mouth twice * Patient taking differently: Take 40 mg by mouth once johan* AMLODIPINE 5 MG TABLET Take 1 tablet by mouth once d* LISINOPRIL 10 MG TABLET Take 1 tablet by mouth once d* METOPROLOL TARTRATE 25 MG TAB* Take 0.5 tablets by mouth twi * AMIODARONE 200 MG TABLET Take 1 tablet by mouth once d* APIXABAN 5 MG TABLET Take 1 tablet by mouth twice * CLOPIDOGREL 75 MG TABLET Take 1 tablet by mouth once d* MELATONIN 10 MG CAPSULE Take by mouth. NITROGLYCERIN 0.4 MG SUBLINGU* Dissolve 1 tablet under the t * FUROSEMIDE 20 MG TABLET Take 0.5 tablets by mouth onc* DOXYCYCLINE MONOHYDRATE 100 M* Take 1 capsule by mouth twice * Patient not taking: Reported on 12/22/2018 CHOLESTYRAMINE (WITH SUGAR) 4* Take 4 g by mouth three times * Patient not taking: Reported on 10/10/2018 SPIRONOLACTONE 25 MG TABLET Take 1 tablet by mouth twice * Patient not taking: Reported on 12/22/2018 COLACE ORAL Take 240 mg by mouth twice da* CALCIUM CARBONATE 600 MG (1,5* Take 1 tablet by mouth once d * Patient not taking: Reported on 10/10/2018 MAGNESIUM 250 MG TABLET 2 tablets in the morning and * Patient not taking: Reported on 08/08/2018 * THERAPEUTIC MULTIVITAMIN TABL* Take one(1) tablet daily. * FISH OIL 1,200 MG-144 MG-216 * one capsule every other day Problem List As Of Date 12/22/2018 Noted Resolved Essential hypertension, benign [I10] 07/26/2005 More... 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 More... Sciatica [M54.30] 08/29/2006 03/02/2016 PUD (peptic ulcer disease) [K27.9] 12/18/2009 Mild cognitive impairment with memory loss [G31*07/03/2012 0 07/26/2017 Class 3 severe obesity due to excess calories w*07/03/2012 0 08/08/2018 Magnesium deficiency [E61.2] 12/03/2013 03/02/2016 ASHD (arteriosclerotic heart disease) [I25.10] 10/08/2014 Acute myocardial infarction (HCC) [I21.9] 10/08/2014 Moderate aortic stenosis [I35.0] 11/25/2014 08/08/2018 Moderate aortic valve insufficiency [I35.1] 11/25/201408/08 Arthritis of both hands [M19.041, M19.042] 03/03/2015 Chronic congestive heart failure (HCC) [I50.9] 03/03/2015 Impaired fasting glucose [R73.01] 03/04/2015 Gastroesophageal reflux disease with esophagiti*02/12/2016 History of aortic valve replacement [Z95.2] 03/02/2016 More... 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 Atrial fibrillation (HCC) [I48.91] 03/02/2016 More... 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 In addition to yo ur 40 mg in the morning. Follow up next week Seek care sooner for any worsening symptoms-Fever, worsening pain, redness, swelling of the leg. Prescriptions ordered this encounter Disp Refills Start End FUROSEMIDE 20 MG TABLET 20 t* 0 12/22/2018 Class: Print RX Route: ORAL Sig: Take 0.5 tablets by mouth once daily. Encounter Status:Closed by SONU MACKEY PA-C on basic metabolic panl on 2018-12-22 Anion gap [Moles/Vol] 13 9-18 mmol/L Normal 12-23-19 19 [facility] ([id number]) Calcium [Mass/Vol] 9.6 8.5-10.2 mg/dL Normal 12-22-2018 [facility] ([id number]) Chloride [Moles/Vol] 106 97-105 mmol/L High 9 [facility] ([id number]) CO2 [Moles/Vol] 23 22-30 mmol/L Normal 12-22-2018 [facility] ([id number]) Creatinine [Mass/Vol] 1.38 0.58-0.96 mg/dL High 12-23-19 [facility] ([id number]) eGFR- Amer. 44 Normal 12-22-2018 [facility] ([id number]) GFR/1.73 sq M predicted 37 . Normal 2018 [facility] among non-blacks MDRD [place] ([id number]) (S/P/Bld) [Vol rate/Area] Comment: Result Comment: eGFR (Estima amena GFR) Units of measure: mL/min/1.73 meters squared eGFR is derived from the ree xpressed MDRD Study equation using the following parameters: serum creatinine, age, gender and race. The creatinine assay has been calibrated to be traceable to IDMS. An eGFR <60 mL/min/1.73m2 fo r >3 months is consistent with chronic kidney disease. Refer to KDOQI guidelines for clinical interpretation. In patients with unstable re nal function, e.g. those with acute kidney injury, the eGFR may not accurately reflect actual GFR. Glucose [Mass/Vol] 118 74-99 mg/dL High 12-22-2018 [facility] ([id number]) Comment: Result Comment: The [place] [employer] (ADA) provides guidance for cutoff values for fasting glucose and random glucose. The ADA defines fasting as no caloric intake for at least 8 hours. Fas ting plasma glucose results between 100 to 125 mg/dL indicate increased risk for diabetes (prediabetes). Fasting plasma glucose resul ts greater than or equal to 126 mg/dL meet the criteria for diagnosis of diabetes. In the absence of unequivocal hyperglycemia, results should be confirmed by repeat testing. In a patient with classic s ymptoms of hyperglycemia or hyperglycemic crisis, random plasma glucose results greater than or equal to 200 mg/dL meet the criteria for diagnosis of diabetes. Reference: Standards of [facility] Care in Diabetes 2016, [place] [employer] Association. Diabetes Care. 2016.39(Suppl 1). Potassium [Moles/Vol] 4.7 3.7-5.1 mmol/L Normal 12-23-19 19 [facility] ([id number]) Sodium [Moles/Vol] 142 136-144 mmol/L Normal 12-22-2018 [facility] ([id number]) Urea nitrogen [Mass/Vol] 26 7-21 mg/dL High 12-22 [facility] ([id number]) progress on 2017-06 PROGRESS HNO ID: [id number]: Gabby Swain 06-21-2017 [facility] EService: (none)Author Type: Medical Center PhysicianType: Progress NotesFiled: ([id number]) 06/21/2017 5:38 PMNote Text:PERTINENT CARDIAC HISTORYSupravalvular pulmonic stenosis - mildHLHTNASHD - moderate by cath 2002, PCI LAD 2014, CABGx2 01/29Aortic stenosis - AVR (bio) 01/29PAF - recurrent, cardioversion DHERENCE TO GUIDELINESACE-I or ARB for HF with prior LVEF<40 (NQF 0081) - N/AASA or Plavix for ASHD (NQF 0067) - metBeta marivel for ASHD with prior [place] or prior LVEF<40 (NQF 0070) - metBeta marivel for HF with prior LVEF<40 (NQF 0083) - N/AACE-I or ARB for ASHD with DM or prior LVEF<40 (NQ 0066) - N/AStatin therapy for ASHD or FHL or DM - metBMI documented and plan if >25 (NQF 0421) - lifestyle recommendation formTobacco use screening and referral (NQ 0028) - lifestyle recommendationformRecommendation for whole food, plant based diet - lifestyle recommendationformCLINICAL IMPRESSION/PLAN:Galileo Huston has stable ischemic heart disease. By exam, her aorticvalve gradients are acceptable. She maintains sinus rhythm.It is unlikely that she will maintain rhythm without an antiarrhythmicdrug. However, she may do quite well off beta marivel at this point. I'veasked her to gradually wean her metoprolol over the next week and thendiscontinue. I've asked her to call with an update on her vital signs andsymptoms in one week. If she has worsening of shortness of breath orexercise intolerance, stress test will be performed.If she remains in sinus rhythm off metoprolol for a few weeks, we willconsider decreasing her amiodarone to 100 milligrams daily.She will have lipid profile, TSH, ALT and basic profile for monitoring herdrug therapy.Per her request, she will be referred referred [facility] forcontinuing care.Written and verbal health teaching given to patient, patient verbalizesunderstanding and agrees with treatment plan.DIAGNOSIS FOR VISIT:Atrial fibrillationASHDAVRHISTORY OF PRESENT ILLNESSGalileo Huston returns for follow-up of her multiple cardiac issues, asnoted above.She underwent cardioversion which was uncomplicated. No changes were madein her medication. She would like to be off some of the medication. Shehas concerns about the dose of metoprolol and the fact that she is stillon amiodarone.She's had some exercise intolerance . She has had no chest discomfort butnotes fatigue while walking. She's had minimal edema.She denies syncope, palpitations, TIAs, amaurosis and claudication.Blood pressures have been well-controlled, the pulses have been frequentlyin the low fifties. She's had no sensation of palpitations.She has decided to stay with [facility]. She would like referral to [facility] , in anticipation of my snf next year. She would liketo get established with Dr. Mason, who saw her when she was [facility].ALLERGIES:ALLERGIESAllergen Reactions- Bandaids [Other]- Lipitor [Atorvastat* Myalgia- Lyrica [Pregabalin] Mental Status Change- Niacin Other: See Comments myalgia- Zocor [Simvastatin] Other: See Comments myalgiaCURRENT OUTPATIENT MEDICATIONS:amiodarone (CORDARONE) 200 mg tablet Take 1 tablet by mouth once daily.omeprazole (PRILOSEC) 20 mg capsule Take 1 capsule by mouth daily beforebreakfast. 1/2 hr before meal.apixaban (ELIQUIS) 5 mg tab(s) Take 1 tablet by mouth twice daily.clopidogrel (PLAVIX) 75 mg tablet Take 1 tablet by mouth once daily.furosemide (LASIX) 40 mg tablet Take 1 tablet by mouth once daily.lisinopril (ZESTRIL, PRINIVIL) 10 mg tablet Take 1 tablet by mouth oncedaily.metoprolol tartrate, short acting, (LOPRESSOR) 50 mg tablet Take 1 tabletby mouth twice daily.LORazepam (ATIVAN) 0.5 mg tab Take 1 tablet by mouth twice daily as needed(anxiety).melatonin 10 mg cap Take by mouth.calcium carbonate 600 mg-cholecalciferol 200 units (CALCIUM 600 + D,3,)600 mg(1,500mg) -200 unit tab Take 1 tablet by mouth once daily.nitroglycerin sublingual (NITROQUICK) 0.4 mg SL tablet Dissolve 1 tabletunder the tongue as needed. FOR CHEST PAIN. IF NO RELIEF CALL 911Magnesium 250 mg tab 2 tablets in the morning and 2 tablet in the eveningtherapeutic multivitamin ORAL tablet Take one(1) tablet daily.fish oil/dha/epa(FISH OIL 1,200 MG-144 MG-216 MG CAP) one capsule everyother daybenzonatate (TESSALON PERLE) 100 mg capsule Take 1 capsule by mouth threetimes daily as needed.PAST MEDICAL HISTORYDiagnosis Date- Atrial fibrillation (HCC) 03/02/2016 following CABG and aortic valve replacement- Cervicitis and endocervicitis- Chronic congestive heart failure (HCC) 03/03/2015- Coronary artery disease- Diverticulosis of colon (without mention of hemorrhage) Diverticulosis- Esophagitis- Heart attack (HCC)- History of aortic valve replacement 03/02/2016- Hypertension- Osteoarthrosis, unspecified whether generalized or localized, otherspecified sites- PUD (peptic ulcer disease) 12/18/2009- S/P CABG x 2 03/02/201601/2016--complicated by atrial fibrillation- Statin intolerance 07/22/2016- Syncope- Unspecified hemorrhoids without mention of complication HemorrhoidsPAST SURGICAL HISTORYProcedure Laterality Date- COLONOSCOP W/ OR W/O [facility] SPEC 06-09-04 Colonoscopy-repeat in - COLONOSCOP W/ OR W/O [facility] SPEC 04/10/15 Colonoscopy- COLPOSCOPY (VAGINOSCOPY) Colposcopy- EGD W/O OR W/BRUSH/WASH EGD- EGD W/O OR W/BRUSH/WASH 04/10/15 EGD- PAST SURGICAL HISTORY OF 10/18/14 heart cath- stent placed (at [place] by Dr Gomez)- TOTAL KNEE REPLACEMENT 12/23/2008 Knee replacement, totalFAMILY HISTORYProblem Relation Age of Onset- Heart Mother- Diabetes Mother- Alcohol/Drug Father- Thyroid BrotherSocial History Marital status: Spouse name: Years of education: Number of children:Social History Main Topics Smoking status: Never Smoker Smokeless tobacco: Never Used Alcohol use: No Drug use: NoREVIEW OF SYSTEMS: General: No chills, fever, weight loss, night sweats. Respiratory: No productive cough. Cardiac: As noted above. GI: Nomelena. : No dysuria. Musculoskeletal: No myalgias.PHYSICAL EXAMINATION: S/he is alert and in no distress.VITAL SIGNS: BP 148/76 Pulse 53 Ht 5' 0 (1.52m) Wt 198 lb 8 oz(90.0kg) BMI 38.77 kg/(m2).SHEENT: Skin is warm and dry. No xanthelasmas appreciated. Pharynx isbenign. There is no oral cyanosis. Neck: supple. No adenopathy orthyroid enlargement. Chest: Clear to percussion and auscultation.Trachea is midline. Air entry is equal. There is no chest walltenderness. Cardiac: Regular rhythm. S1 and S2 are normal. PMI isnondisplaced. There is a soft systolic ejection murmur. No click isheard. Carotids are brisk without bruits. JVP is less than 10 cm.Abdomen: Soft and nontender. There are no pulsatile masses or bruits. Noliver enlargement. Bowel sounds are active. Extremities: No edema.Pulses are intact and symmetrical. No clubbing or cyanosis. No femoralbruits. Neurologic: Grossly normal motor and sensory. S/he is alert andoriented x4.EKG today shows sinus rhythm with first degree AV block. There is mild QRSwidening.Recent labs were reviewed. Renal function is mildly decreased. TSH andmagnesium were normal.Electronically Signed:Teresa Curtis 2017 2:25 [facility]Adair Rodriguez III cnov on 2017-06-21 CNOV Office Visit Normal 06-21-2017 Marisol (AGCARDWST) GALILEO HUSTON ([id number]) 1935 F NFRDate Time Provider Department06/21/17 2:00 PM STAR WSAIN AGCARDWST Medical During your visit today, we recorded the following information about you: Pulse Blood pressure Weight Cente r Height 53/minute 148/76 90 k g 1.524 Star Arenas 06/21/2017 5:38 PM SignedPERTINENT CARDIAC (000 00) HISTORYSupravalvular pulmoni c stenosis - mildHLHTNASHD - moderate by cath 2002, PCI LAD 2014, CABGx2 01/29Aortic stenosis - AVR ( bio) 01/29PAF - recurrent, cardioversion DHERENCE TO GUIDELINESACE-I or ARB for HF with prior LVEF<4 0 (NQF 0081) - N/AASA or Plavix for ASHD (NQF 0067) - metBeta marivel for ASHD with prior [place] or prior LVEF< 40 (NQF 0070) - metBeta marivel for HF with prior LVEF<40 (NQF 0083) - N/AACE-I or ARB for ASHD wit h DM or prior LVEF<40 (NQF 0066) - N/AStatin therapy for ASHD or FHL or DM - metBMI documented and plan i f >25 (NQF 0421) - lifestyle recommendation formTobacco use screening and referral (NQ 0028) - lifest yle recommendation formRecommendation for whole food, plant based diet - lifestyle recommendation for mCLINICAL IMPRESSION/PLAN:Galileo Huston has stable ischemic heart disease. By exam, her aortic valvegra dients are acceptable. She maintains sinus rhythm.It is unlikely that she will maintain rhythm without an a ntiarrhythmic drug.However, she may do quite well off beta marivel at this point. I've asked herto carlton pappas wean her metoprolol over the next week and then discontinue. I'veasked her to call with an update o n her vital signs and symptoms in one week.If she has worsening of shortness of breath or exercise intole lenin, stresstest will be performed.If she remains in sinus rhythm off metoprolol for a few weeks, we will considerdecreasing her amiodarone to 100 milligrams daily.She will have lipid profile, TSH, ALT and basic profile for monitoring her drugtherapy.Per her request, she will be referred [facility].Written and verbal health teaching given to patient, patient verbalizesu nderstanding and agrees with treatment plan.DIAGNOSIS FOR VISIT:Atrial fibrillationASHDAVRHISTORY O F PRESENT ILLNESSCedarcy Huston returns for follow-up of her multiple cardiac issues, as notedabov e.She underwent cardioversion which was uncomplicated. No changes were made inher medication. She would like to be off some of the medication. She hasconcerns about the dose of metoprolol and the fact that she is still onamiodarone.She's had some exercise intolerance . She has had no chest discomfort but note sfatigue while walking. She's had minimal edema.She denies syncope, palpitations, TIAs, amaurosi s and claudication.Blood pressures have been well- controlled, the pulses have been frequently inthe low fi fties. She's had no sensation of palpitations.[facility]. She would like to getestablished with Dr. Mason, who saw her when she was in the hospital last fall.ALLERGIES:ALLERGIESAlle rgen Reactions- Bandaids [Other]- Lipitor [Atorvastat* Myalgia- Lyrica [Pregabalin] Mental Status C hange- Niacin Other: See Comments myalgia- Zocor [Simvastatin] Other: See Comments myalgiaCURRENT OUTP ATIENT MEDICATIONS:amiodarone (CORDARONE) 200 mg tablet Take 1 tablet by mouth once daily.omeprazole (PRILO SEC) 20 mg capsule Take 1 capsule by mouth daily beforebreakfast. 1/2 hr before meal.apixaban (ELIQUI S) 5 mg tab(s) Take 1 tablet by mouth twice daily.clopidogrel (PLAVIX) 75 mg tablet Take 1 tablet by mout h once daily.furosemide (LASIX) 40 mg tablet Take 1 tablet by mouth once daily.lisinopril (ZESTRIL, P RINIVIL) 10 mg tablet Take 1 tablet by mouth once daily.metoprolol tartrate, short acting, (LOPRESSOR) 50 mg tablet Take 1 tablet bymouth twice daily.LORazepam (ATIVAN) 0.5 mg tab Take 1 tablet by mouth twice daily as needed(anxiety).melatonin 10 mg cap Take by mouth.calcium carbonate 600 mg-cholecalciferol 200 u nits (CALCIUM 600 + D,3,) 600mg(1,500mg) -200 unit tab Take 1 tablet by mouth once daily.nitroglycerin sub lingual (NITROQUICK) 0.4 mg SL tablet Dissolve 1 tablet underthe tongue as needed. FOR CHEST PAIN. IF N O RELIEF CALL 911Magnesium 250 mg tab 2 tablets in the morning and 2 tablet in the eveningtherapeutic multi vitamin ORAL tablet Take one(1) tablet daily.fish oil/dha/epa(FISH OIL 1,200 MG-144 MG-216 MG CAP) one ca psule every otherdaybenzonatate (TESSALON PERLE) 100 mg capsule Take 1 capsule by mouth three timesdaily as needed.PAST MEDICAL HISTORYDiagnosis Date- Atrial fibrillation (HCC) 03/02/2016 following CABG and aortic valve replacement- Cervicitis and endocervicitis- Chronic congestive heart failure (HCC) 6- Coronary artery disease- Diverticulosis of colon (without mention of hemorrhage) Diverticulosis- Esophagitis- Heart attack (HCC)- History of aortic valve replacement 03/02/2016- Hypertension- Ost eoarthrosis, unspecified whether generalized or localized, other specifiedsites- PUD (peptic ulcer disease) 12/18/2009- S/P CABG x 2 03/02/201601/2016--complicated by atrial fibrillation- Statin intolerance 07/22/2016- Syncope- Unspecified hemorrhoids without mention of complication HemorrhoidsPAST SURGICAL HISTORYProcedure Laterality Date- COLONOSCOP W/ OR W/O [facility] SPEC 06-09-04 Colonoscopy-repeat i n - COLONOSCOP W/ OR W/O [facility] SPEC 04/10/15 Colonoscopy- COLPOSCOPY (VAGINOSCOPY) Colposcopy- EG D W/O OR W/BRUSH/WASH EGD- EGD W/O OR W/BRUSH/WASH 04/10/15 EGD- PAST SURGICAL HISTORY OF 10/18/14 heart cath - stent placed (at [place] by Dr Gomez)- TOTAL KNEE REPLACEMENT 12/23/2008 Knee replacement, totalFAMIL Y HISTORYProblem Relation Age of Onset- Heart Mother- Diabetes Mother- Alcohol/Drug Father- Thyroid BrotherSocial History Marital status: Spouse name: Years of education: Number of childre n:Social History Main Topics Smoking status: Never Smoker Smokeless tobacco: Never Used Alcohol use: No D rug use: NoREVIEW OF SYSTEMS: General: No chills, fever, weight loss, night sweats.Respiratory: No produ ctive cough. Cardiac: As noted above. GI: No melena.: No dysuria. Musculoskeletal: No myalgias .PHYSICAL EXAMINATION: S/he is alert and in no distress.VITAL SIGNS: BP 148/76 Pulse 53 Ht 5' 0 (1.52m ) Wt 198 lb 8 oz (90.0kg) BMI 38.77 kg/(m2).SHEENT: Skin is warm and dry. No xanthelasmas appreciated. Pharynx isbenign. There is no oral cyanosis. Neck: supple. No adenopathy or thyroidenlargement. Chest: C lear to percussion and auscultation. Trachea is midline. Air entry is equal. There is no chest wall tende rness. Cardiac: Regularrhythm. S1 and S2 are normal. PMI is nondisplaced. There is a soft systolicejec tion murmur. No click is heard. Carotids are brisk without bruits. JVPis less than 10 cm. Abdomen: Soft an d nontender. There are no pulsatilemasses or bruits. No liver enlargement. Bowel sounds are active.Extr emities: No edema. Pulses are intact and symmetrical. No clubbing orcyanosis. No femoral bruits. Neurologi c: Grossly normal motor and sensory.S/he is alert and oriented x4.EKG today shows sinus rhythm with firs t degree AV block. There is mild QRSwidening.Recent labs were reviewed. Renal function is mildly decreased . TSH andmagnesium were normal.Electronically Signed:Star Swain, Caridad2017 2:25 PMCC:Shankar Rodriguez Kenneth E 06/21/2017 2:26 PM SignedDecrease metoprolol to 25 mg once a dayCall in one week w ith report on symptoms and HRLIFESTYLE CHANGEA healthy lifestyle is the most important component of your overall treatmentplan. Please give serious thought to the following areas and commit to makinglong term ch anges.EAT A WHOLE FOOD, PLANT BASED DIETThe nutrition your body gets is more important than the medicine you take.What matters most is the overall way you eat. We encourage you to minimize theuse of animal pr oducts (which include dairy and all meats except fatty fish)and use whole, unprocessed plant foods to p rovide your protein, vitamins andother nutrients. We have a lot of information to share with you on this to pic.This is not a diet. It is a way of life that you will keep with you.EXERCISE REGULARLYIt is not important to spend hours in the gym, lifting weights and perspiringheavily. A total o f 2-3 hours per week of aerobic (causing you to bemoderately short of breath) exercise is sufficient to im prove your health.Talk to us before you begin a new exercise program, if you have heart diseaseor experie nce shortness of breath or chest pain.REDUCE STRESSChronic emotional and physical stress leads to dis ease. Ways of reducingstress include meditation, visualization, prayer, yoga and other forms ofrelaxation therapy. Consistency is the chang. Find a technique that works foryou and do it every day.CULTIVATE RELATION SHIPSLoneliness and isolation have a major negative impact on health. Seek outothers who can love, care for and nurture you. Avoid hurtful relationships.MAINTAIN IDEAL BODY WEIGHTThe best way to do thi s is to do all the things above. Our bodies naturallyfind the right weight if we keep moving and feed ours elves the right food. Ifyour BMI is greater than 25, we strongly recommend a referral to a weightmanageme nt program. Please speak to us or your family physician aboutavailable programs.AVOID NICOTINE IN A LL FORMSThis includes all tobacco products, whether chewed, smoked, vaped, or rubbed onthe skin. Smoking c essation programs, which can make use of tobaccosubstitutes, medications to suppress cravings and behavi or management, areavailable. Please contact your family physician about programs in your area.Referr ing Provider: ADAIR RODRIGUEZ III [[id number]]Allergies As of Date: 06/21/2017 Noted Allergy Reactionbandaids [Ot her] 09/30/2005LIPITOR (ATORVASTATIN CALCIUM) 07/22/2016 17 - MyalgiaLYRICA (PREGABALIN) 11/30/2010 1 - Mental Status ChangeNIACIN 11/30/2010 14 - Other: See Comments Comments: myalgiaZOCOR (SIMVASTATIN) 0 08/09/2011 14 - Other: See Comments Comments: myalgiaDate Reviewed: 06/21/2017Reviewed by: Obdulia Bradshaw ([place]) - Fully AssessedReason for Visit: Follow Up [171]Primary Visit Diagnosis:ASHD (arterioscler otic heart disease) [I25.10] Other Visit Diagnosis:PAF (paroxysmal atrial fibrillation) ([facility]) [I48.0]O rder(s):ECG B/O W INTERP (MED OFFICE) [ECG06] Order #: [id number] BASIC METABOLIC PNL [SQBMP] Order #: [id number] FUTURE TSH BLD [SQTSH] Order #: [id number] FUTURE ALT/SGPT [SQALT] Order #: [id number] FUTURE LIPID PANEL BASIC [SQLIPB] Order #: [id number] FUTURE amiodarone (CORDARONE) 200 mg tabletTak e 1 tablet by mouth once daily.Disp: Rfl: metoprolol tartrate, short acting, (LOPRESSOR) 50 mg tabletTake 0.5 tablets by mouth once daily.Disp: Rfl:Prescriptions as of 06/21/2017 Sig: AMIODARONE 200 MG TABLET Lucas e 1 tablet by mouth once d* METOPROLOL TARTRATE 50 MG TAB* Take 0.5 tablets by mouth onc* OMEPRAZOLE 20 MG CAPSULE,MANUEL* Take 1 capsule by mouth daily* APIXABAN 5 MG TABLET Take 1 tablet by mouth twice * CLOP IDOGREL 75 MG TABLET Take 1 tablet by mouth once d* FUROSEMIDE 40 MG TABLET Take 1 tablet by mouth once d* LISINOPRIL 10 MG TABLET Take 1 tablet by mouth once d* LORAZEPAM 0.5 MG TABLET Take 1 tablet by mout h twice * MELATONIN 10 MG CAPSULE Take by mouth. CALCIUM CARBONATE 600 MG (1,5* Take 1 tablet by mouth once d* NITROGLYCERIN 0.4 MG SUBLINGU* Dissolve 1 tablet under the t* MAGNESIUM 250 MG TABLET 2 ta blets in the morning and * Patient taking differently: 250 mg twice daily. 2 tablets* * THERAPEUTIC MULTI VITAMIN TABL* Take one(1) tablet daily. 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 More... Sciatica [M54.30] INVALID FOR*03/02/2016 PUD ( peptic ulcer disease) [K27.9] INVALID FOR* Mild cognitive impairment with memory loss [G31*INVALID FOR * Obesity [E66.9] INVALID FOR* Magnesium deficiency [E61.2] INVALID FOR*03/02/2016 ASHD (arterio sclerotic heart disease) [I25.10] INVALID FOR* Acute myocardial infarction (HCC) [I21.9] INVALID FOR* M oderate aortic stenosis [I35.0] INVALID FOR* Moderate aortic valve insufficiency [I35.1] INVALI D FOR* Arthritis of both hands [M19.041, M19.042] INVALID FOR* Chronic congestive heart failure (HC C) [I50.9] INVALID FOR* Impaired fasting glucose [R73.01] INVALID FOR* Screening for colon cancer [ Z12.11] INVALID FOR* Gastroesophageal reflux disease with esophagiti*INVALID FOR* History of aortic valve replacement [Z95.2] INVALID FOR* More... S/P CABG x 2 [Z95.1] INVALID FOR* More... Atrial fibrillation (HCC) [I48.91] INVALID FOR* More... Anemia [D64.9] INVALID FOR* Iron deficiency anemia [D50.9] IN VALID FOR* Statin intolerance [Z78.9] INVALID FOR* Chronic anticoagulation [Z79.01] INVALID FOR* Other instructions from your clinician: Decrease metoprolol to 25 mg once a day Call in one week with report on s ymptoms and HR LIFESTYLE CHANGE A healthy lifestyle is the most important component of your overall tr eatment plan. Please give serious thought to the following areas and commit to making assisted changes. EA T A WHOLE FOOD, PLANT BASED DIET The nutrition your body gets is more important than the medicine you take. What matters most is the overall way you eat. We encourage you to minimize the use of animal p roducts (which include dairy and all meats except fatty fish) and use whole, unprocessed plant foods to p rovide your protein, vitamins and other nutrients. We have a lot of information to share with kathy smith on this topic. This is not a diet. It is a way of life that you will keep with you. EXERCISE REGULARLY It is not important to spend hours in the gym, lifting weights and perspiring heavily. A total of 2-3 hour s per week of aerobic (causing you to be moderately short of breath) exercise is sufficient to improve you r health. Talk to us before you begin a new exercise program, if you have heart disease or experience shortness of breath or chest pain. REDUCE STRESS Chronic emotional and physical stress leads to dis ease. Ways of reducing stress include meditation, visualization, prayer, yoga and other forms of relaxatio n therapy. Consistency is the chang. Find a technique that works for you and do it every day. CULTIVATE RELA TIONSHIPS Loneliness and isolation have a major negative impact on health. Seek out others who can love , care for and nurture you. Avoid hurtful relationships. MAINTAIN IDEAL BODY WEIGHT The best way to do th is is to do all the things above. Our bodies naturally find the right weight if we keep moving and feed o urselves the right food. If your BMI is greater than 25, we strongly recommend a referral to a weight manag ement program. Please speak to us or your family physician about available programs. AVOID NICOTINE IN ALL FORMS This includes all tobacco products, whether chewed, smoked, vaped, or rubbed on the skin. Smoki ng cessation programs, which can make use of tobacco substitutes, medications to suppress cravings and beh avior management, are available. Please contact your family physician about programs in your area.Prescr iptions ordered this encounter Disp Refills Start End AMIODARONE 200 MG TABLET 06/21/2017 Class: Med Update Route: ORAL Sig: Take 1 tablet by mouth once daily. METOPROLOL TARTRATE 50 MG TABLET 06/21/2017 Class: Med Update Route: ORAL Sig: Take 0.5 tablets by mouth once daily.Medications Discontinued During This Enc ounter amiodarone (CORDARONE) 200 mg tablet 30 t* 6 03/01/2016 06/21/2017 Route: ORAL Sig: Take 1 tablet by m outh once daily for 30 days. Disc: Reason for discontinue is not on file. amiodarone (CORDARONE) 200 m g tablet 0 11/26/2016 06/21/2017 Class: Med Update Route: ORAL Sig: Take 1 tablet by mouth three times daily. For 2 wks, then twice daily for 2 weeks, then once daily Disc: Reason for discontinue is not on fi le. metoprolol tartrate, short acting, (* 11/22/2016 06/21/2017 Class: Med Update Route: ORAL Sig: Take 1 tabl et by mouth twice daily. Patient taking differently: Take 25 mg by mouth twice daily. Disc: Reason for disc ontinue is not on file. Status:Closed by STAR SWAIN MD on 06/21/17 obsolete on 2017-03 OBSOLETE Refill Normal 03-21-2017 Marisol (AGCARDWST) GALILEO HUSTON N ([id number]) 1935 F NFRDate Time Provider Department03/21/17 STAR SWAIN AGCARDWST During M edical your visit today, we recorde d the following information about you:Vik Tena RN, RN 03/21/2017 4:35 [address] Cent er SignedPatient wanted to veri fy that she is still supposed to be taking eliquis andplavix, thank ([id number]) you.Patient phones requestin g refills as follows:Pending Prescriptions Disp Refills APIXABAN 5 MG TABLET 180 tablet 3 Sig: Take 1 tab let by mouth twice daily. COSME: No CLOPIDOGREL 75 MG TABLET 90 tablet 3 Sig: Take 1 tablet by mouth once daily. COSME: No Please review and advise.Erik Clayton has been identified by name and date of : YesPending Prescriptions Disp Refills APIXABAN 5 MG TABLET 180 tablet 3 Sig: Take 1 tablet by mouth twice daily. COSME: No CLOPIDOGREL 75 MG TABLET 90 tablet 3 Sig: Take 1 tablet by mouth once daily. COSME: NoRX INSTRUCTIONS:Patient aware RX will be sent to pharmacy. No need to notify patient.Alejandra Clayton MD 03/21/2017 4:37 PM SignedThe following approved medication requests have bee n transmitted electronically.Signed Prescriptions Disp Refills apixaban (ELIQUIS) 5 mg tab(s) 180 ta blet 3 Sig: Take 1 tablet by mouth twice daily. COSME: No Authorizing Provider: STAR SWAIN clopidogre l (PLAVIX) 75 mg tablet 90 tablet 3 Sig: Take 1 tablet by mouth once daily. COSME: No Authorizing Provider : STAR SWAIN MDAllergies As of Date: 03/21/2017 Noted Allergy ReactionLIPITOR (SANKET RVASTATIN CALCIUM) 07/22/2016 17 - MyalgiaLYRICA (PREGABALIN) 11/30/2010 1 - Mental Status ChangeNIACIN 1 14 - Other: See Comments Comments: myalgiaZOCOR (SIMVASTATIN) 08/09/2011 14 - Other: See C omments Comments: myalgiabandaids [Other] 09/30/2005Date Reviewed: 11/26/2016Reviewed by: Vik (Rn) JUAN Tena - Fully AssessedReason for Visit: Refill Request [94]Order(s):apixaban (ELIQU IS) 5 mg tab(s)Take 1 tablet by mouth twice daily.Disp: 180 tabletRfl: 3 clopidogrel (PLAVIX) 75 mg t abletTake 1 tablet by mouth once daily.Disp: 90 tabletRfl: 3Prescriptions as of 03/21/2017 Sig: APIXABAN 5 MG TABLET Take 1 tablet by mouth twice * CLOPIDOGREL 75 MG TABLET Take 1 tablet by mouth once d* FURO SEMIDE 40 MG TABLET Take 1 tablet by mouth once d* OMEPRAZOLE 20 MG CAPSULE,MANUEL* Take 1 capsule by mouth daily* LISINOPRIL 10 MG TABLET Take 1 tablet by mouth once d* AMIODARONE 200 MG TABLET Lucas e 1 tablet by mouth three * METOPROLOL TARTRATE 50 MG TAB* Take 1 tablet by mouth twice * LORAZEPAM 0.5 MG TABLET Take 1 tablet by mouth twice * BENZONATATE 100 MG CAPSULE Take 1 capsule by mouth three* SHAVON TONIN 10 MG CAPSULE Take by mouth. CALCIUM CARBONATE 600 MG (1,5* Take 1 tablet by mouth once d* NITR OGLYCERIN 0.4 MG SUBLINGU* Dissolve 1 tablet under the t* MAGNESIUM 250 MG TABLET 2 tablets in the morn ing and * Patient taking differently: 250 mg twice daily. 2 tablets* * THERAPEUTIC MULTIVITAMIN TAB L* Take one(1) tablet daily. 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 More... Sciatica [M54.30] INVALID FOR*03/02/2016 PUD (peptic u lcer disease) [K27.9] INVALID FOR* Mild cognitive impairment with memory loss [G31*INVALID FOR* Obesity [E 66.9] INVALID FOR* Magnesium deficiency [E61.2] INVALID FOR*03/02/2016 ASHD (arteriosclerotic heart dise ase) [I25.10] INVALID FOR* Acute myocardial infarction (HCC) [I21.9] INVALID FOR* Moderate aortic stenosi s [I35.0] INVALID FOR* Moderate aortic valve insufficiency [I35.1] INVALID FOR* Arthritis of both hands [M19.041, M19.042] INVALID FOR* Chronic congestive heart failure (HCC) [I50.9] INVALID FOR* Impaire d fasting glucose [R73.01] INVALID FOR* Screening for colon cancer [Z12.11] INVALID FOR* Gastroesophagea l reflux disease with esophagiti*INVALID FOR* History of aortic valve replacement [Z95.2] INVALID FOR* More... S/P CABG x 2 [Z95.1] INVALID FOR* More... Atrial fibrillation (HCC) [I48.91] INVALID FOR* More... Anemia [D64.9] INVALID FOR* Iron deficiency anemia [D50.9] INVALID FOR* Statin intolerance [Z78 .9] INVALID FOR* Chronic anticoagulation [Z79.01] INVALID FOR*Prescriptions ordered this encounter Disp Refills Start End APIXABAN 5 MG TABLET 180 * 3 03/21/2017 Route: ORAL Sig: Take 1 tablet by mouth twice daily. CLOPIDOGREL 75 MG TABLET 90 t* 3 03/21/2017 Cmt: Med-syn patient. If too soon, we will put new RX on hold for next cycle. Route: ORAL Sig: Take 1 tablet by mouth once daily.Medications Discontinu ed During This Encounter apixaban (ELIQUIS) 5 mg tab tab(s) 180 * 3 02/15/2017 03/21/2017 Class: Print RX Rou te: ORAL Sig: Take 1 tablet by mouth twice daily. Disc: Reason for discontinue is not on file. clopidogrel (PLAVIX) 75 mg tablet 90 t* 1 08/31/2016 03/21/2017 Cmt: Med-sync patient. If too soon, we will put new RX on hold for next cycle. Sig: TAKE 1 TABLET EVERY DAY Disc: Reason for discontinue is not on file.Encounter Num humberto: [id number] Status:Closed by OBDULIA FIELDS MA on 03/21/17 obsolete on 2017-01 OBSOLETE Refill Normal 01-25-2017 [place] ([facility]) GALILEO HUSTON ([id number]) 1935 F NFRDate Time Provider Fmjiygibxp24/12/17 STAR SWAIN During M edical your visit today, we recorde d the following information about you:Star Swain MD 01/25/2017 10:40 Center AM SignedThe following appro keegan medication requests have been transmitted electronically.Signed ([id number] ) Prescriptions Disp Refills l isinopril (ZESTRIL, PRINIVIL) 10 mg tablet 30 tablet 11 Sig: Take 1 tablet by mouth once daily. COSME: No Au thorizing Provider: [facility] As of Date: 01/25/2017 Noted Aller gy ReactionLIPITOR (ATORVASTATIN CALCIUM) 07/22/2016 17 - MyalgiaLYRICA (PREGABALIN) 11/30/2010 1 - Mental Status ChangeNIACIN 11/30/2010 14 - Other: See Comments Comments: myalgiaZOCOR (SIMVASTATIN) 0 08/09/2011 14 - Other: See Comments Comments: myalgiabandaids [Other] 09/30/2005Date Reviewed: Reviewed by: Vik Kaba) JUAN Tena - Fully AssessedReason for Visit: Refill Request [94]Order(s): lisinopril (ZESTRIL, PRINIVIL) 10 mg tabletTake 1 tablet by mouth once daily.Disp: 30 tabletRfl: 11 Prescriptions as of 01/25/2017 Sig: LISINOPRIL 10 MG TABLET Take 1 tablet by mouth once d* AMIODARONE 200 MG TABLET Take 1 tablet by mouth three * FUROSEMIDE 40 MG TABLET Take 1 tablet by mouth once d* METO PROLOL TARTRATE 50 MG TAB* Take 1 tablet by mouth twice * LORAZEPAM 0.5 MG TABLET Take 1 tablet by mout h twice * BENZONATATE 100 MG CAPSULE Take 1 capsule by mouth three* CLOPIDOGREL 75 MG TABLET LUCAS E 1 TABLET EVERY DAY MELATONIN 10 MG CAPSULE Take by mouth. APIXABAN 5 MG TABLET Take 1 tablet by mout h twice * CALCIUM CARBONATE 600 MG (1,5* Take 1 tablet by mouth once d* OMEPRAZOLE 20 MG CAPSULE,DEL A* Take 1 capsule by mouth daily* NITROGLYCERIN 0.4 MG SUBLINGU* Dissolve 1 tablet under the t* MAGNESIU M 250 MG TABLET 2 tablets in the morning and * Patient taking differently: 250 mg twice daily. 2 tablets* * THERAPEUTIC MULTIVITAMIN TABL* Take one(1) tablet daily. 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 More... Sciatica [M54.30] INVALID FO R*03/02/2016 PUD (peptic ulcer disease) [K27.9] INVALID FOR* Mild cognitive impairment with memory loss [G31*INVALID FOR* Obesity [E66.9] INVALID FOR* Magnesium deficiency [E61.2] INVALID FOR*03/02/2016 ASHD (arteriosclerotic heart disease) [I25.10] INVALID FOR* Acute myocardial infarction (HCC) [I21.9] INV ALID FOR* Moderate aortic stenosis [I35.0] INVALID FOR* Moderate aortic valve insufficiency [I35.1] INVALI D FOR* Arthritis of both hands [M19.041, M19.042] INVALID FOR* Chronic congestive heart failure (HC C) [I50.9] INVALID FOR* Impaired fasting glucose [R73.01] INVALID FOR* Screening for colon cancer [ Z12.11] INVALID FOR* Gastroesophageal reflux disease with esophagiti*INVALID FOR* History of aortic valve replacement [Z95.2] INVALID FOR* More... S/P CABG x 2 [Z95.1] INVALID FOR* More... Atrial fibrillation (HCC) [I48.91] INVALID FOR* More... Anemia [D64.9] INVALID FOR* Iron deficiency anemia [D50.9] IN VALID FOR* Statin intolerance [Z78.9] INVALID FOR* Chronic anticoagulation [Z79.01] INVALID FOR*Prescri ptions ordered this encounter Disp Refills Start End LISINOPRIL 10 MG TABLET 30 t* 11 01/25/2017 Route: O RAL Sig: Take 1 tablet by mouth once daily.Medications Discontinued During This Encounter lisinopril (Z ESTRIL, PRINIVIL) 10 mg* 30 t* 11 03/16/2016 01/25/2017 Route: ORAL Sig: Take 1 tablet by mouth once daily. Disc: Reason for discontinue is not on file. Status:Closed by OBDULIA FIELDS MA on 01/30 cnpn on 2017-01-11 CNPN Telephone Normal 01-11-2017 [place] ([facility]) GALILEO HUSTON ([id number]) 1935 F NFRDate Time Provider Strguldavh09/28/17 STAR SWAIN AGCARDMARISOLT During M edical your visit today, we recorde d the following information about you:Vik Tena, RN, RN 01/11/2017 3:34 PM Juanita dutta SignedReceived a tier except ion form from [employer] for patient's Eliquis. Patienthas afib and s/p AVR. ([id number]) She has not taken other anti coagulants in the past. Shehad no interest, and may not be able to afford, the routine blood work neededfor warfarin. Form in folder for review.Star Swain MD 01/11/2017 4:32 PM SignedNoted. I will place no te on form that she cannot afford the cost of monitoring.Metoprolol should not require an exemption form.Maggi Pacheco, JUAN, RN 01/11/2017 5:07 PM SignedCorrect, she was unsure why [facility] req uested an exemption for metoprolol(and lasix with Dr. Rodriguez). I let her know that if cost was a concern w iththose medications they can be purchased from [employer] out of pocket for $4.00.Star Swain MD 01/11/2017 5:17 PM SignedAgreeMaggi Curtis RN, RN 01/12/2017 3:16 PM SignedFax ed completed forms to [facility] @ [phone] JUAN Tena, RN 01/13/2017 10:11 AM SignedReceived conf irmation from Maury at [facility] that the Tier Exception for eliquishas been approved. ANDquot;Approved E liquis Tier 2 for 2018ANDquot; States thatthis will result in lower copay, but deductibles still apply.Marcus rgies As of Date: 01/11/2017 Noted Allergy ReactionLIPITOR (ATORVASTATIN CALCIUM) 07/22/2016 17 - Sadia lgiaLYRICA (PREGABALIN) 11/30/2010 1 - Mental Status ChangeNIACIN 11/30/2010 14 - Other: See Comments Com ments: myalgiaZOCOR (SIMVASTATIN) 08/09/2011 14 - Other: See Comments Comments: myalgiabandaids [O ther] 09/30/2005Date Reviewed: 11/26/2016Reviewed by: Vik TanRn) JUAN Tena - Fully AssessedReason for Vis it: Forms [913]Prescriptions as of 01/11/2017 Sig: AMIODARONE 200 MG TABLET Take 1 tablet by mouth three * FUROSEMIDE 40 MG TABLET Take 1 tablet by mouth once d* METOPROLOL TARTRATE 50 MG TAB* Take 1 tablet by mouth twice * LORAZEPAM 0.5 MG TABLET Take 1 tablet by mouth twice * BENZONATATE 100 MG CAPSULE T omar 1 capsule by mouth three* CLOPIDOGREL 75 MG TABLET TAKE 1 TABLET EVERY DAY MELATONIN 10 MG CAPSULE Take by mouth. APIXABAN 5 MG TABLET Take 1 tablet by mouth twice * LISINOPRIL 10 MG TABLET Take 1 tablet by m outh once d* CALCIUM CARBONATE 600 MG (1,5* Take 1 tablet by mouth once d* OMEPRAZOLE 20 MG CAPSULE,DEL A* Take 1 capsule by mouth daily* NITROGLYCERIN 0.4 MG SUBLINGU* Dissolve 1 tablet under the t* MAGNESIU M 250 MG TABLET 2 tablets in the morning and * Patient taking differently: 250 mg twice daily. 2 tablets* * THERAPEUTIC MULTIVITAMIN TABL* Take one(1) tablet daily. 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 More... Sciatica [M54.30] INVALID FO R*03/02/2016 PUD (peptic ulcer disease) [K27.9] INVALID FOR* Mild cognitive impairment with memory loss [G31*INVALID FOR* Obesity [E66.9] INVALID FOR* Magnesium deficiency [E61.2] INVALID FOR*03/02/2016 ASHD (arteriosclerotic heart disease) [I25.10] INVALID FOR* Acute myocardial infarction (HCC) [I21.9] INV ALID FOR* Moderate aortic stenosis [I35.0] INVALID FOR* Moderate aortic valve insufficiency [I35.1] INVALI D FOR* Arthritis of both hands [M19.041, M19.042] INVALID FOR* Chronic congestive heart failure (HC C) [I50.9] INVALID FOR* Impaired fasting glucose [R73.01] INVALID FOR* Screening for colon cancer [ Z12.11] INVALID FOR* Gastroesophageal reflux disease with esophagiti*INVALID FOR* History of aortic valve replacement [Z95.2] INVALID FOR* More... S/P CABG x 2 [Z95.1] INVALID FOR* More... Atrial fibrillation (HCC) [I48.91] INVALID FOR* More... Anemia [D64.9] INVALID FOR* Iron deficiency anemia [D50.9] IN VALID FOR* Statin intolerance [Z78.9] INVALID FOR* Chronic anticoagulation [Z79.01] INVALID FOR*Encount er Number: [id number] Status:Closed by VIK TENA on 01/12/17 discharge note-physician on 2016-12-31 Discharge Note-Physician Normal 12-31 [facility]) ([id number]) procedure note on Procedure Note Normal 12-30-2016 [facility]) ([id number]) outpatient patient summary on 2016-12-30 Outpatient Patient Summary Normal [facility]) ([id number]) depart summary on Depart Summary Normal 12-30-2016 [facility]) ([id number]) bmp on 2016-12-30 BUN/Creatinine Ratio 23.3 10.0-22.0 ratio High 7 [facility]) (0000 0) Comment: Performed By: #### BMP, GFR ####[place] [address] Calcium 9.2 8.4-10.1 mg/dL Normal 12-30-2016 Replaced by [facility]) ([id number]) Comment: Performed By: #### BMP, GFR ####[place] [address] Chloride 106 98-110 mEq/L Normal 12-30-2016 Replaced by [facility]) (18553) Comment: Performed By: #### BMP, GFR ####[place] [address] [place] [address] CO2 27 22-32 mEq/L Normal 12-30-2016 Replaced by [facility]) (54452) Comment: Performed By: #### BMP, GFR ####[place] [address] Creatinine 1.16 0.50-1.20 mg/dL Normal 12-30-2016 [facility] ([place]) ([id number]) Comment: Performed By: #### BMP, GFR ####[address] [address] Electrolyte Balance 8.0 4.0-15.0 mEq/L Normal 12-30-2016 [facility] ([place]) (0000 0) Comment: Performed By: #### BMP, GFR ####[address] [address] Glucose mass conc 134 82-115 mg/dL High 12-30-2016 [facility] ([place]) ([id number]) Comment: Performed By: #### BMP, GFR ####[address] [address] Potassium molar conc 4.2 3.5-5.0 mEq/L Normal 7 [facility] ([place]) (0000 0) Comment: Performed By: #### BMP, GFR ####[address] [address] Sodium 141 136-145 mEq/L Normal 12-30-2016 [facility]) ([address]) Comment: Performed By: #### BMP, GFR ####[address] [address] Urea nitrogen 27.0 8.0-22.0 mg/dL High 12-30-2016 [facility] ([place]) ([id number]) Comment: Performed By: #### BMP, GFR ####[address] [address] anesthesiology consultation on 2016-12-30 Anesthesiology Consultation Normal [facility] ([place]) ([address]) .gfr on 2016-12-30 eGFR (non-black) 45 ml/min/1.73sqm Normal 12-31-19 17 [facility] ([place]) ([id number]) Comment: Result Comment: GFR Populati on mean for , Non- Americans Ages 20-29 = 116 m L/min/1.73 sq.m. Ages 30-39 = 107 mL/min/1.73 sq.m. Ages 40-49 = 99 mL/min /1.73 sq.m. Ages 50-59 = 93 mL/min/1.73 sq.m. Ages 60-69 = 85 mL/min/1.73 sq.m. Ages 70+ = 75 mL/min/1.73 sq.m.Chronic Kidney Disease: Less than 60 mL/min/1.73 square metersEnd Stage Renal Disease: Less than 15 mL/min /1.73 square meters Performed By: #### BMP, GFR ####[place] [address] [place] [address] eGFR (non-black) 55 ml/min/1.73sqm Normal 12-30- 17 [facility] ([place]) ([id number]) Comment: Result Comment: GFR Populati on mean for , Non- Americans Ages 20-29 = 116 m L/min/1.73 sq.m. Ages 30-39 = 107 mL/min/1.73 sq.m. Ages 40-49 = 99 mL/min /1.73 sq.m. Ages 50-59 = 93 mL/min/1.73 sq.m. Ages 60-69 = 85 mL/min/1.73 sq.m. Ages 70+ = 75 mL/min/1.73 sq.m.Chronic Kidney Disease: Less than 60 mL/min/1.73 square metersEnd Stage Renal Disease: Less than 15 mL/min /1.73 square meters Performed By: #### BMP, GFR ####[facility] [place] [address] progress on 2016-11 PROGRESS HNO ID: [id number]: Normal 11-14 [facility] Star Payne: [place] ([id number]) (none)Author Type: PhysicianType: Progress NotesFiled: 12/01/2016 11:04 AMNote Text:EKG continues to show atrial tachycardia with block. Ventricular rate hasslowed to nineties. We reviewed her amiodarone loading schedule and Iasked her to contact me in one week with vital signs. If she notes asudden drop in heart rate, she needs to call me promptly so that we canverify conversion to sinus rhythm. We are the process of arranging EPevaluation for consideration of ablation.Star Swain MD PROGRESS HNO ID: [id number]: Mita Pierre 12-01-2016 [facility] ([facility]) Daniel: (none)Author Center ([id number]) Type: LICENSED NURSEType: Progress NotesFiled: 12/01/2016 11:04 AMNote Text:Patient in the office for EKG. She also had questions for Dr Swain aboutmedications. Spoke with Dr Swain and he discussed with patient.BEV Pablo cnnurse on CNNURSE Nurse Visit Normal 12-01-2016 [place] ([facility]) GALILEO HUSTON ([id number]) 1935 F RDate Time Provider Gazqbpzkjl02/18/17 8:30 AM NURSE CARD [facility] During your visit today, we recorded the following information about you:Mita Orr LPN 12/01/2016 11:04 C enter AM SignedPatient in the offi ce for EKG. She also had questions for Dr Swain aboutmedications. Spoke with ([id number]) Dr Swain and he discussed w ith patient.Marva Stoddard MD 12/01/2016 11:04 AM SignedEKG continues to show atrial tac hycardia with block. Ventricular rate hasslowed to nineties. We reviewed her amiodarone loading schedule and I asked herto contact me in one week with vital signs. If she notes a sudden drop in heartrate, yulia e needs to call me promptly so that we can verify conversion to sinusrhythm. We are the process of arrang ing EP evaluation for consideration ofablation.Star Swain, MDReferring Provider: STAR SWAIN [[id number]]Allergies As of Date: 12/01/2016 Noted Allergy ReactionLIPITOR (ATORVASTATIN CALCIUM) 07/22 17 - MyalgiaLYRICA (PREGABALIN) 11/30/2010 1 - Mental Status ChangeNIACIN 11/30/2010 14 - Other: See Comments Comments: myalgiaZOCOR (SIMVASTATIN) 08/09/2011 14 - Other: See Comments Comments : myalgiabandaids [Other] 09/30/2005Date Reviewed: 11/26/2016Reviewed by: Vik Kaba) JUAN Tena - Fully Asse ssedReason for Visit: EKG [793]Primary Visit Diagnosis:Atrial fibrillation, unspecified type (HCC) [I48. 91]Prescriptions as of 12/01/2016 Sig: AMIODARONE 200 MG TABLET Take 1 tablet by mouth three * FUROSEMIDE 40 MG TABLET Take 1 tablet by mouth once d* METOPROLOL TARTRATE 50 MG TAB* Take 1 tablet by mouth twice * LORAZEPAM 0.5 MG TABLET Take 1 tablet by mouth twice * BENZONATATE 100 MG CAPSULE Take 1 capsule by mo uth three* CLOPIDOGREL 75 MG TABLET TAKE 1 TABLET EVERY DAY MELATONIN 10 MG CAPSULE Take by mouth. APIXA BAN 5 MG TABLET Take 1 tablet by mouth twice * LISINOPRIL 10 MG TABLET Take 1 tablet by mouth once d* CALC IUM CARBONATE 600 MG (1,5* Take 1 tablet by mouth once d* OMEPRAZOLE 20 MG CAPSULE,MANUEL* Take 1 capsule by mouth daily* NITROGLYCERIN 0.4 MG SUBLINGU* Dissolve 1 tablet under the t* MAGNESIUM 250 MG TABLET 2 ta blets in the morning and * Patient taking differently: 250 mg twice daily. 2 tablets* * THERAPEUTIC MULTI VITAMIN TABL* Take one(1) tablet daily. 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 More... Sciatica [M54.30] INVALID FOR*03/02/2016 PUD ( peptic ulcer disease) [K27.9] INVALID FOR* Mild cognitive impairment with memory loss [G31*INVALID FOR * Obesity [E66.9] INVALID FOR* Magnesium deficiency [E61.2] INVALID FOR*03/02/2016 ASHD (arterio sclerotic heart disease) [I25.10] INVALID FOR* Acute myocardial infarction (HCC) [I21.9] INVALID FOR* M oderate aortic stenosis [I35.0] INVALID FOR* Moderate aortic valve insufficiency [I35.1] INVALI D FOR* Arthritis of both hands [M19.041, M19.042] INVALID FOR* Chronic congestive heart failure (HC C) [I50.9] INVALID FOR* Impaired fasting glucose [R73.01] INVALID FOR* Screening for colon cancer [ Z12.11] INVALID FOR* Gastroesophageal reflux disease with esophagiti*INVALID FOR* History of aortic valve replacement [Z95.2] INVALID FOR* More... S/P CABG x 2 [Z95.1] INVALID FOR* More... Atrial fibrillation (HCC) [I48.91] INVALID FOR* More... Anemia [D64.9] INVALID FOR* Iron deficiency anemia [D50.9] IN VALID FOR* Statin intolerance [Z78.9] INVALID FOR* Chronic anticoagulation [Z79.01] INVALID FOR*Follow- up and Disposition History RecordedEncounter Number: [id number] Status:Closed by VIK TENA on 12/01/16 progress on 2016-11 PROGRESS HNO ID: [id number]: Star siegel 11-26-2016 [facility] ShaferService: (none)Author Type: Medical Center PhysicianType: Progress NotesFiled: ([id number]) 11/26/2016 6:12 PMNote Text:PERTINENT CARDIAC HISTORYSupravalvular pulmonic stenosis - mildHLHTNASHD - moderate by cath 2002, PCI LAD 2014, CABGx2 01/29Aortic stenosis - AVR (bio) 01/29PAF - recurrentADHERENCE TO GUIDELINESACE-I or ARB for HF with prior LVEF<40 (NQF 0081) - N/AASA or Plavix for ASHD (NQF 0067) - metBeta marivel for ASHD with prior [place] or prior LVEF<40 (NQF 0070) - metBeta marivel for HF with prior LVEF<40 (NQF 0083) - N/AACE-I or ARB for ASHD with DM or prior LVEF<40 (NQF 0066) - N/AStatin therapy for ASHD or FHL or DM - metBMI documented and plan if >25 (NQF 0421) - lifestyle recommendation formTobacco use screening and referral (NQF 0028) - lifestyle recommendationformRecommendation for whole food, plant based diet - lifestyle recommendationformCLINICAL IMPRESSION/PLAN:Galileo Huston remains in atrial fibrillation. She will likely needcardioversion. We will give her another 2 weeks of loading withamiodarone, as she has failed cardioversion in the past. She will bereferred to the operations agent at [place] where she had her surgery.I've asked her to monitor her vital signs. If her heart rate accelerates,we can increase metoprolol as needed. She is tolerating atrialfibrillation well.She has been having difficulty with the Eliquis in terms of cost. I askedher to check with her pharmacy plan to see if Xarelto would save tia. She's also been given information on the number to call for patientassistance. She continues to decline warfarin therapy.She will have an EKG in one week. I've asked her to contact us in 72 hourswith update.She'll be seen on a to be arranged basis.Written and verbal health teaching given to patient, patient verbalizesunderstanding and agrees with treatment plan.This note was generated using [employer] voice recognition system, and theremay be some incorrect words, spellings, and punctuation that were notnoted in checking the note before saving.DIAGNOSIS FOR VISIT:ASHDAVRPAFHISTORY OF PRESENT ILLNESSGalileo Huston returns for problem follow-up visit. She was recentlyhospitalized with rapid atrial fibrillation. She was started on amiodaroneand continues her loading dose. No further assessment of ischemic heartdisease was done. She was in atrial fibrillation at the time of discharge.The she notes that she intermittently has heart rates that are wellcontrolled. Reportedly her heart rate was less than [address] Rodriguez'pinoce last week. She has noted that the heart rate goes up easily withexercise.She's had no chest discomfort. Her orthopnea has resolved. She is now onLasix. She's had minimal edema.She denies syncope, TIAs, amaurosis and claudication .ALLERGIES:ALLERGIESAllergen Reactions- Lipitor [Atorvastat* Myalgia- Lyrica [Pregabalin] Mental Status Change- Niacin Other: See Comments myalgia- Zocor [Simvastatin] Other: See Comments myalgia- Bandaids [Other]CURRENT OUTPATIENT MEDICATIONS:amiodarone (CORDARONE) 200 mg tablet Take 1 tablet by mouth three timesdaily. For 2 wks, then twice daily for 2 weeks, then once dailyfurosemide (LASIX) 40 mg tablet Take 1 tablet by mouth once daily.metoprolol tartrate, short acting, (LOPRESSOR) 50 mg tablet Take 1 tabletby mouth twice daily.LORazepam (ATIVAN) 0.5 mg tab Take 1 tablet by mouth twice daily as needed(anxiety).benzonatate (TESSALON PERLE) 100 mg capsule Take 1 capsule by mouth threetimes daily as needed.clopidogrel (PLAVIX) 75 mg tablet TAKE 1 TABLET EVERY DAYmelatonin 10 mg cap Take by mouth.apixaban (ELIQUIS) 5 mg tab tab(s) Take 1 tablet by mouth twice daily.lisinopril (ZESTRIL, PRINIVIL) 10 mg tablet Take 1 tablet by mouth oncedaily.calcium carbonate 600 mg-cholecalciferol 200 units (CALCIUM 600 + D,3,)600 mg(1,500mg) -200 unit tab Take 1 tablet by mouth once daily.omeprazole (PRILOSEC) 20 mg capsule Take 1 capsule by mouth daily beforebreakfast. 1/2 hr before meal.nitroglycerin sublingual (NITROQUICK) 0.4 mg SL tablet Dissolve 1 tabletunder the tongue as needed. FOR CHEST PAIN. IF NO RELIEF CALL 911Magnesium 250 mg tab 2 tablets in the morning and 2 tablet in the eveningtherapeutic multivitamin ORAL tablet Take one(1) tablet daily.fish oil/dha/epa(FISH OIL 1,200 MG-144 MG-216 MG CAP) one capsule everyother dayPAST MEDICAL HISTORYDiagnosis Date- Atrial fibrillation (HCC) 03/02/2016 following CABG and aortic valve replacement- Cervicitis and endocervicitis- Chronic congestive heart failure (HCC) 03/03/2015- Coronary artery disease- Diverticulosis of colon (without mention of hemorrhage) Diverticulosis- Esophagitis- Heart attack- History of aortic valve replacement 03/02/2016- Hypertension- Osteoarthrosis, unspecified whether generalized or localized, otherspecified sites- PUD (peptic ulcer disease) 12/18/2009- S/P CABG x 2 03/02/201601/2016--complicated by atrial fibrillation- Statin intolerance 07/22/2016- Syncope- Unspecified hemorrhoids without mention of complication HemorrhoidsPAST SURGICAL HISTORYProcedure Laterality Date- COLONOSCOP W/ OR W/O [facility] SPEC 06-09-04 Colonoscopy-repeat in - COLONOSCOP W/ OR W/O [facility] SPEC 04/10/15 Colonoscopy- COLPOSCOPY (VAGINOSCOPY) Colposcopy- EGD W/O OR W/BRUSH/WASH EGD- EGD W/O OR W/BRUSH/WASH 04/10/15 EGD- PAST SURGICAL HISTORY OF 10/18/14 heart cath- stent placed (at [place] by Dr Gomez)- TOTAL KNEE REPLACEMENT 12/23/2008 Knee replacement, totalFAMILY HISTORYProblem Relation Age of Onset- Heart Mother- Diabetes Mother- Alcohol/Drug Father- Thyroid BrotherSocial History Marital status: Spouse name: Years of education: Number of children:Social History Main Topics Smoking status: Never Smoker Smokeless status: Never Used Alcohol use: No Drug use: NoREVIEW OF SYSTEMS: General: No chills, fever, weight loss, night sweats. Respiratory: No productive cough. Cardiac: As noted above. GI: Nomelena. : No dysuria. Musculoskeletal: No myalgias.PHYSICAL EXAMINATION: S/he is alert and in no distress.VITAL SIGNS: BP 134/80 Pulse 105 Ht 5' 0 (1.52m) Wt 194 lb 9.6 oz(88.3kg) BMI 38.01 kg/(m2).SHEENT: Skin is warm and dry. No xanthelasmas appreciated. Pharynx isbenign. There is no oral cyanosis. Neck: supple. No adenopathy orthyroid enlargement. Chest: Clear to percussion and auscultation.Trachea is midline. Air entry is equal. There is no chest walltenderness. Cardiac: Irregularly irregular rhythm. S1 and S2 are normal. PMI is nondisplaced. There is a soft systolic ejection murmur and a softmurmur of mitral insufficiency. No click is heard. Carotids are briskwithout bruits. JVP is less than 10 cm. Abdomen: Soft and nontender.There are no pulsatile masses or bruits. No liver enlargement. Bowelsounds are active. Extremities: Trace edema. Pulses are intact andsymmetrical. No clubbing or cyanosis. No femoral bruits. Neurologic:Grossly normal motor and sensory. S/he is alert and oriented x4.EKG shows an atrial tachycardia of unclear mechanism, but it is definitelynot sinus. Rate is 105. There is no significant ST change from baseline.Recent echocardiogram was reviewed. This shows preserved LV function.Prosthetic valve has good characteristics.Records from [facility] were reviewed. There is no evidence of acutecoronary syndrome.Electronically Signed:Star Swain MDNovember 26, 2016 10:25 [facility]:Adair Rodriguez III MD cnmarianela on 2016-11-26 CNOV Office Visit Normal 11-26-2016 Marisol (AGCARDWST) GALILEO HUSTON N ([id number]) 1935 F NF RDate Time Provider Kouaxihrvi21/13/17 10:00 AM STAR SWAIN [facility] During your visit today, we recorded the following information about you: Pulse Blood pressure Weight Cente r Height 105/minute 134/80 88. 3 kg 1.524 Jessica Swain MD 11/26/2016 6:12 PM SignedPERTINENT CARDIAC ( [id number]) HISTORYSupravalvular pulmoni c stenosis - mildHLHTNASHD - moderate by cath 2002, PCI LAD 2014, CABGx2 01/29Aortic stenosis - AVR ( bio) 01/29PAF - recurrentADHERENCE TO GUIDELINESACE-I or ARB for HF with prior LVEFANDlt;40 (NQF 0081) - N/ AASA or Plavix for ASHD (NQF 0067) - metBeta marivel for ASHD with prior [place] or prior LVEFANDlt;40 (NQF 0070 ) - metBeta marivel for HF with prior LVEFANDlt;40 (NQF 0083) - N/AACE-I or ARB for ASHD with DM or prio r LVEFANDlt;40 (NQF 0066) - N/AStatin therapy for ASHD or FHL or DM - metBMI documented and plan if ANDgt ;25 (NQF 0421) - lifestyle recommendation formTobacco use screening and referral (NQ 0028) - lifest yle recommendation formRecommendation for whole food, plant based diet - lifestyle recommendation for mCLINICAL IMPRESSION/PLAN:Galileo Huston remains in atrial fibrillation. She will likely needcardioversio n. We will give her another 2 weeks of loading with amiodarone, asshe has failed cardioversion in the past. She will be referred to theelectrophysiologist at [place] where she had her surgery.I've asked her t o monitor her vital signs. If her heart rate accelerates, wecan increase metoprolol as needed. She is tolerating atrial fibrillation well.She has been having difficulty with the Eliquis in terms of cost. I asked herto check with her pharmacy plan to see if Xarelto would save her money. She'salso been given information on the number to call for patient assistance. Shecontinues to decline warfarin therapy.She will have an EKG in one week. I've asked her to contact us in 72 hours withupdate.She'll be seen on a to be arranged basis.Written and verbal health teaching given to patient, patient verbalizesunderstand ing and agrees with treatment plan.This note was generated using Convr[employer] voice recognition system, and ther e may besome incorrect words, spellings, and punctuation that were not noted inchecking the note before s aving.DIAGNOSIS FOR VISIT:ASHDAVRPAFHISTORY OF PRESENT ILLNESSGalileo Huston returns for problem follow-u p visit. She was recentlyhospitalized with rapid atrial fibrillation. She was started on amiodarone andcon tinues her loading dose. No further assessment of ischemic heart disease wasdone. She was in atrial f ibrillation at the time of discharge .The she notes that she intermittently has heart rates that are wel l controlled.Reportedly her heart rate was less than [address] Rodriguez's office last week. Shehas noted that the heart rate goes up easily with exercise.She's had no chest discomfort. Her orthopnea has resolved. She is now on Lasix.She's had minimal edema.She denies syncope, TIAs, amaurosis and claudication . ALLERGIES:ALLERGIESAllergen Reactions- Lipitor [Atorvastat* Myalgia- Lyrica [Pregabalin] Mental Status C hange- Niacin Other: See Comments myalgia- Zocor [Simvastatin] Other: See Comments myalgia- Bandaids [ Other]CURRENT OUTPATIENT MEDICATIONS:amiodarone (CORDARONE) 200 mg tablet Take 1 tablet by mouth three time s daily.For 2 wks, then twice daily for 2 weeks, then once dailyfurosemide (LASIX) 40 mg tablet Take 1 tablet by mouth once daily.metoprolol tartrate, short acting, (LOPRESSOR) 50 mg tablet Take 1 tablet bymo uth twice daily.LORazepam (ATIVAN) 0.5 mg tab Take 1 tablet by mouth twice daily as needed(anxiety).poly zonatate (TESSALON PERLE) 100 mg capsule Take 1 capsule by mouth three timesdaily as needed.clopido grel (PLAVIX) 75 mg tablet TAKE 1 TABLET EVERY DAYmelatonin 10 mg cap Take by mouth.apixaban (ELIQUIS) 5 m g tab tab(s) Take 1 tablet by mouth twice daily.lisinopril (ZESTRIL, PRINIVIL) 10 mg tablet Take 1 tablet b y mouth once daily.calcium carbonate 600 mg- cholecalciferol 200 units (CALCIUM 600 + D,3,) 600mg(1,500mg) - 200 unit tab Take 1 tablet by mouth once daily.omeprazole (PRILOSEC) 20 mg capsule Take 1 capsule by mo uth daily beforebreakfast. 1/2 hr before meal.nitroglycerin sublingual (NITROQUICK) 0.4 mg SL table t Dissolve 1 tablet underthe tongue as needed. FOR CHEST PAIN. IF NO RELIEF CALL 911Magnesium 250 mg tab 2 tablets in the morning and 2 tablet in the eveningtherapeutic multivitamin ORAL tablet Take one(1) tabl et daily.fish oil/dha/epa(FISH OIL 1,200 MG-144 MG- 216 MG CAP) one capsule every otherdayPAST MEDICAL H ISTORYDiagnosis Date- Atrial fibrillation (HCC) 03/02/2016 following CABG and aortic valve replacement- Ce rvicitis and endocervicitis- Chronic congestive heart failure (HCC) 03/03/2015- Coronary artery disease- Div erticulosis of colon (without mention of hemorrhage) Diverticulosis- Esophagitis- Heart attack- H istory of aortic valve replacement 03/02/2016- Hypertension- Osteoarthrosis, unspecified whether generali zed or localized, other specifiedsites- PUD (peptic ulcer disease) 12/18/2009- S/P CABG x 2 03/02/201602/03 16--complicated by atrial fibrillation- Statin intolerance 07/22/2016- Syncope- Unspecified hemorrhoids with out mention of complication HemorrhoidsPAST SURGICAL HISTORYProcedure Laterality Date- COLONOSCOP W/ OR W/O [facility] SPEC 06-09-04 Colonoscopy-repeat in - COLONOSCOP W/ OR W/O [facility] SPEC 04/10/15 Colonoscop y- COLPOSCOPY (VAGINOSCOPY) Colposcopy- EGD W/O OR W/BRUSH/WASH EGD- EGD W/O OR W/BRUSH/WASH 04/10/15 EGD- PAST SURGICAL HISTORY OF 10/18/14 heart cath- stent placed (at [place] by Dr Gomez)- TOTAL KNEE REPLA CEMENT 12/23/2008 Knee replacement, totalFAMILY HISTORYProblem Relation Age of Onset- Heart Mother- Diabete s Mother- Alcohol/Drug Father- Thyroid BrotherSocial History Marital status: Spouse name: Years o f education: Number of children:Social History Main Topics Smoking status: Never Smoker Smokeless statu s: Never Used Alcohol use: No Drug use: NoREVIEW OF SYSTEMS: General: No chills, fever, weight loss, night sweats.Respiratory: No productive cough. Cardiac: As noted above. GI: No melena.: No dysuria. Muscu loskeletal: No myalgias.PHYSICAL EXAMINATION: S/he is alert and in no distress.VITAL SIGNS: BP 134 /80 Pulse 105 Ht 5' 0ANDquot; (1.52m) Wt 194 lb 9.6 oz(88.3kg) BMI 38.01 kg/(m2).SHEENT: Skin i s warm and dry. No xanthelasmas appreciated. Pharynx isbenign. There is no oral cyanosis. Neck: supple. No adenopathy or thyroidenlargement. Chest: Clear to percussion and auscultation. Trachea is mid line. Air entry is equal. There is no chest wall tenderness. Cardiac: Irregularlyirregular rhythm. S1 and S2 are normal. PMI is nondisplaced. There is a softsystolic ejection murmur and a soft murmur of mitral insufficiency. No clickis heard. Carotids are brisk without bruits. JVP is less than 10 cm.Abdomen: Soft and nontender. There are no pulsatile masses or bruits. Noliver enlargement. Bowel sounds ar e active. Extremities: Trace edema.Pulses are intact and symmetrical. No clubbing or cyanosis. No fem oralbruits. Neurologic: Grossly normal motor and sensory. S/he is alert andoriented x4.EKG shows an atrial tachycardia of unclear mechanism, but it is definitely notsinus. Rate is 105. There is no signific ant ST change from baseline.Recent echocardiogram was reviewed. This shows preserved LV function.Prosth etic valve has good characteristics.Records from [facility] were reviewed. There is no eviden ce of acutecoronary syndrome.Electronically Signed:Star Swain MDNovember 26, 2016 10:25 [facility] C:Adair Rodriguez, III Jaqueline Swain MD 11/26/2016 10:36 AM AddendumCall on Tuesday with progress repo rtHave ECG done next if increased shortness of breath or chest pain. We will increase theme toprolol if neededLIFESTYLE CHANGEA healthy lifestyle is the most important component of your overall tr eatmentplan. Please give serious thought to the following areas and commit to makinglong term changes.EAT A WHOLE FOOD, PLANT BASED DIETThe nutrition your body gets is more important than the medicine you take.W hat matters most is the overall way you eat. We encourage you to minimize theuse of animal products (w hich include dairy and all meats except fatty fish)and use whole, unprocessed plant foods to provide your protein, vitamins andother nutrients. We have a lot of information to share with you on this topic. We a lso hold Shared Medical Appointments, where you can come visit with in the company of other chino ents and spend over an hour talking aboutthe challenges of changing the way you eat. This is not a ANDqu ot;dietANDquot;.It is a way of life that you will keep with you.EXERCISE REGULARLYIt is not important to spend hours in the gym, lifting weights and perspiringheavily. A total of 2-3 hours per week of aerobi c (causing you to bemoderately short of breath) exercise is sufficient to improve your health.Talk to us before you begin a new exercise program, if you have heart diseaseor experience shortness of brett th or chest pain.REDUCE STRESSChronic emotional and physical stress leads to disease. Ways of reducingstr ess include meditation, visualization, prayer, yoga and other forms ofrelaxation therapy. Consis tency is the chang. Find a technique that works foryou and do it every day.CULTIVATE RELATIONSHIPSL oneliness and isolation have a major negative impact on health. Seek outothers who can love, care for and n urture you. Avoid hurtful relationships.MAINTAIN IDEAL BODY WEIGHTThe best way to do this is to do all the things above. Our bodies naturallyfind the right weight if we keep moving and feed ourselves the right beau d. Ifyour BMI is greater than 25, we strongly recommend a referral to a weightmanagement program. Pl ease speak to us our your family physician aboutavailable programs.AVOID NICOTINE IN ALL FORMSThis in cludes all tobacco products, whether chewed, smoked, vaped, or rubbed onthe skin. Smoking cessation prog dayday, which can make use of tobaccosubstitutes, medications to suppress cravings and behavior manage ment, areavailable. Please contact your family physician about programs in your area.Referring Provider : STAR SWAIN [[id number]]Allergies As of Date: 11/26/2016 Noted Allergy ReactionLIPITOR (ATORVASTATI N CALCIUM) 07/22/2016 17 - MyalgiaLYRICA (PREGABALIN) 11/30/2010 1 - Mental Status ChangeNIACIN 12/01/19 11 14 - Other: See Comments Comments: myalgiaZOCOR (SIMVASTATIN) 08/09/2011 14 - Other: See Comments Commen ts: myalgiabandaids [Other] 09/30/2005Date Reviewed: 11/26/2016Reviewed by: Vik TanRn) JUAN Tena - Fully AssessedReason for Visit: Follow Up [171]Primary Visit Diagnosis:PAF (paroxysmal atrial fibrillat ion) (HCC) [I48.0] Other Visit Diagnoses:S/P AVR [Z95.2] ASHD (arteriosclerotic heart dise ase) [I25.10]Order(s):ECG B/O W INTERP (MED OFFICE) [ECG06] Order #: [id number] amiodarone (CORDA MOHIT) 200 mg tabletTake 1 tablet by mouth three times daily. For 2 wks, then twice daily for 2 weeks, the n once dailyDisp: Rfl: 0 BASIC METABOLIC PNL [SQBMP] Order #: [id number] FUTURE TSH BLD [SQTSH] Order #: [id number] FUTURE ALT/SGPT [SQALT] Order #: [id number] FUTURE MAGNESIUM BLD [SQMG1] Order #: [id number] FUTURE ECG COMPLETE W INTERPRETATION [ECG01] Order #: [id number] FUTUREPrescriptions as of Sig: AMIODARONE 200 MG TABLET Take 1 tablet by mouth three * FUROSEMIDE 40 MG TABLET Take 1 tablet by mouth once d* METOPROLOL TARTRATE 50 MG TAB* Take 1 tablet by mouth twice * LORAZEPAM 0.5 MG TABLET Take 1 tablet by mouth twice * BENZONATATE 100 MG CAPSULE Take 1 capsule by mouth three* CLOP IDOGREL 75 MG TABLET TAKE 1 TABLET EVERY DAY MELATONIN 10 MG CAPSULE Take by mouth. APIXABAN 5 MG TABLET Take 1 tablet by mouth twice * LISINOPRIL 10 MG TABLET Take 1 tablet by mouth once d* CALCIUM CARBONATE 60 0 MG (1,5* Take 1 tablet by mouth once d* OMEPRAZOLE 20 MG CAPSULE,MANUEL* Take 1 capsule by mouth daily* NI TROGLYCERIN 0.4 MG SUBLINGU* Dissolve 1 tablet under the t* MAGNESIUM 250 MG TABLET 2 tablets in the morn ing and * Patient taking differently: 250 mg twice daily. 2 tablets* * THERAPEUTIC MULTIVITAMIN TAB L* Take one(1) tablet daily. 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 More... Sciatica [M54.30] INVALID FOR*03/02/2016 PUD (peptic u lcer disease) [K27.9] INVALID FOR* Mild cognitive impairment with memory loss [G31*INVALID FOR* Obesity [E 66.9] INVALID FOR* Magnesium deficiency [E61.2] INVALID FOR*03/02/2016 ASHD (arteriosclerotic heart dise ase) [I25.10] INVALID FOR* Acute myocardial infarction (HCC) [I21.9] INVALID FOR* Moderate aortic stenosi s [I35.0] INVALID FOR* Moderate aortic valve insufficiency [I35.1] INVALID FOR* Arthritis of both hands [M19.041, M19.042] INVALID FOR* Chronic congestive heart failure (HCC) [I50.9] INVALID FOR* Impaire d fasting glucose [R73.01] INVALID FOR* Screening for colon cancer [Z12.11] INVALID FOR* Gastroesophagea l reflux disease with esophagiti*INVALID FOR* History of aortic valve replacement [Z95.2] INVALID FOR* More... S/P CABG x 2 [Z95.1] INVALID FOR* More... Atrial fibrillation (HCC) [I48.91] INVALID FOR* More... Anemia [D64.9] INVALID FOR* Iron deficiency anemia [D50.9] INVALID FOR* Statin intolerance [Z78 .9] INVALID FOR* Chronic anticoagulation [Z79.01] INVALID FOR* Other instructions from your clini yoav: Call on Tuesday with progress report Have ECG done next Tuesday Call if increased shortness of breat h or chest pain. We will increase the metoprolol if needed LIFESTYLE CHANGE A healthy lifestyle is the mos t important component of your overall treatment plan. Please give serious thought to the following are as and commit to making assisted changes. EAT A WHOLE FOOD, PLANT BASED DIET The nutrition your body gets is more important than the medicine you take. What matters most is the overall way you eat. We enco urage you to minimize the use of animal products (which include dairy and all meats except fatty fish) and use whole, unprocessed plant foods to provide your protein, vitamins and other nutrients. We have a l ot of information to share with you on this topic. We also hold Shared Medical Appointments, where you can come visit with Dr. Swain in the company of other patients and spend over an hour talking about the chall enges of changing the way you eat. This is not a diet. It is a way of life that you will keep with you. EXERCISE REGULARLY It is not important to spend hours in the gym, lifting weights and perspiring heavi ly. A total of 2-3 hours per week of aerobic (causing you to be moderately short of breath) exercise is sufficient to improve your health. Talk to us before you begin a new exercise program, if you have heart d isease or experience shortness of breath or chest pain. REDUCE STRESS Chronic emotional and physical stres s leads to disease. Ways of reducing stress include meditation, visualization, prayer, yoga and other forms of relaxation therapy. Consistency is the chang. Find a technique that works for you and do it every day. CULTIVATE RELATIONSHIPS Loneliness and isolation have a major negative impact on health. Seek out others w ho can love, care for and nurture you. Avoid hurtful relationships. MAINTAIN IDEAL BODY WEIGHT The best w ay to do this is to do all the things above. Our bodies naturally find the right weight if we keep movi ng and feed ourselves the right food. If your BMI is greater than 25, we strongly recommend a referra l to a weight management program. Please speak to us our your family physician about available programs. AV OID NICOTINE IN ALL FORMS This includes all tobacco products, whether chewed, smoked, vaped, or rubbed on the skin. Smoking cessation programs, which can make use of tobacco substitutes, medications to suppress cravings and behavior management, are available. Please contact your family physician about progr ams in your area.Prescriptions ordered this encounter Disp Refills Start End AMIODARONE 200 MG TABLET 0 1 Class: Med Update Route: ORAL Sig: Take 1 tablet by mouth three times daily. For 2 wks, then twice daily for 2 weeks, then once dailyMedications Discontinued During This Encounter amiodarone (CORDAR ONE) 200 mg tablet 11/22/2016 11/26/2016 Class: Med Update Route: ORAL Sig: Take 1 tablet by mouth three times daily. Disc: Reason for discontinue is not on file. Cosign accepted by ADAIR RODRIGUEZ III, MD[[id number]] on 11/22/2016 6:46 PMClassic SmartForms filed during this visit:Extended VitalsEncounter Number: [id number] Status:Closed by STAR SWAIN MD on 11/26/16 Vital Signs Vital Sign Description Value / Unit Date Location The following section is limited to 5 en tries per type and includes entries from the following time range: 20191112 - [id number] 8. Body weight 84.37 kg 11-12-2019 [facility] ([id number]) BP Diastolic 61 mm[Hg] 11-12-2019 [facility] ([id number]) BP Systolic 100 mm[Hg] 11-12-2019 [facility] ([id number]) Pulse (Heart Rate) 91 /min 11-12-2019 [facility] ([id number]) Respiratory Rate 16 /min 11-12-2019 [facility] ([id number]) Encounters Date Type Reason Provider Location 06-21-2017 - Ambulatory Atherosclerotic heart STAR pulido [facility] 06-21-2017 disease of citizen [place] ADAIR Gooden [facility] Medical enter coronary artery without III ADAIR JOHANSEN ( [id number]) angina pectoris [facility] STAR SWAIN 12-30-2016 - Ambulatory KUMAR [facility] Facility:A 12-30-2016 [facility] ADAIR Gooden III [facility] MOUNIR N [facility] 12-01-2016 - Ambulatory [facility] 12-[facility]-2016 [facility] ([id number]) 11-26-2016 - Ambulatory [facility] 11-26-2016 STAR Patel [facility] STAR SWAIN ([id number]) STAR SWAIN 11-12-2019 - Patient encounter Degeneration of lumbar Adair Gooden [facility] 11-12-2019 procedure intervertebral disc Chava Comment: DDD (degenerative disc disea se), lumbar (Primary Dx); Need for vaccination; Chronic anticoagulation; CKD (chronic kidney disease) stage 3, GFR 30-59 ml/min ([facility]); Atrial fibrillation, unspeci fied type ([facility]); Chronic diastolic congestive heart failure ([facility]) 09-27-2019 - Patient Congestive heart [facility] cine 09-27-2019 encounter failure; Khushboo (Rn) Chava procedure nonhypertensive Comment: Community Monitoring Outre[facility] (Outreach 11) 10-18-2019 - Refill Degeneration of lumbar Adair Rodriguez [facility] 10-18-2019 intervertebral disc Chava Comment: Refill Request 11-14-2019 - 11-14-2019 Telephone encounter Adair luis [facility] [place] Comment: medication clarification lab clarification Procedures Procedure Name Date Provider Location INFLUENZA SEASONAL QUADRIVALENT 11-12-2019 Adair Berkley [facility] ([id number]) HIGH DOSE AGE 65+ Plan of Treatment Plan Description Date Location DTAP,TDAP,TD (2 - Td) DTAP,TDAP,TD (2 - Td) 08-10-2027 - [facility] 08-10-2027 ([id number]) DIABETES SCREEN DIABETES SCREEN 12-22-2021 - [facility] 12-22-2021 ([id number]) INFLUENZA (#1) INFLUENZA (#1) 2019 - [facility] 10-16-2019 ([id number]) LDL CHOLESTEROL LDL CHOLESTEROL 08-22-2019 - [facility] 08-22-2019 ([id number]) ADVANCE DIRECTIVE ADVANCE DIRECTIVE 2002 - [facility] inic DISCUSSION DISCUSSION 2002 ([id number]) SHINGRIX VACCINE (1 of SHINGRIX VACCINE (1 of 1987 - [facility] 2) 2) 1987 ([id number]) BASIC METABOLIC PNL BASIC METABOLIC PNL Lab [facility] Routine CKD (chronic (01403) kidney disease) stage 3, GFR 30-59 ml/min ([facility]) Ordered: 11/12/2019 Comment: Ordered: 11/12/2019 no information [facility] ([id number]) Immunizations Vaccine Notes Status Date Location Influenza Vaccine, influenza virus (completed) 11-25-2011 - [facility] Split-Non Spec vaccine, unspecified 11-25-2011 (4419 [id number]) formulation Influenza Seasonal - influenza, high dose (completed) 11-14-2018 - [facility] High Dose - Age 65+ seasonal, 11-14-2018 (30694) preservative-free Influenza Seasonal - influenza, high dose (completed) 11-09-2017 - [facility] High Dose - Age 65+ seasonal, 11-09-2017 (39503) preservative-free Influenza Seasonal - influenza, high dose (completed) 11-12-2015 - [facility] High Dose - Age 65+ seasonal, 11-12-2015 ([id number]) preservative-free influenza, high-dose, influenza, high-dose, (completed) 11-12-2019 - [facility] quadrivalent vaccine quadrivalent vaccine 11-12-2019 (43863) (FLUZONE HIGH DOSE (FLUZONE HIGH DOSE QUADRIVALENT) QUADRIVALENT) Pneumococcal-13 Vac pneumococcal conjugate (completed) 10-08-2014 - [facility] Conjugate vaccine, 13 valent 10-08-2014 ([id number]) Pneumovax pneumococcal (completed) 09-29-2006 - [facility] polysaccharide vaccine, 09-29-2006 ([phone]) 23 valent Payers Payer Name Policy Number Location PRIME TIME [facility] ([place]) [id number] [facility] ([place]) ([id number]) PRIMETIME [id number] [facility] ([phone]) The following information is from the original human readable contentNo Payer Records FoundNo Payer Records FoundNo Payer Records Found Social History Type Social History Date Location Description Tobacco smoking status Never smoker 12-29-2018 - [facility] NHIS 11-12-2019 ([id number]) Tobacco use and Never used 12-29-2018 - [facility] exposure 11-12-2019 (70993) Alcohol intake Current non-drinker of 12-29-2018 - [facility] alcohol (finding) 11-12-2019 (01231) Sex Assigned At Not on file [facility] ([id number]) Exposure to SARS-CoV-2 Not sure [facility] (event) ([id number]) The following information is from the original human readable contentNo Social History Records FoundNo Social History Records FoundNo Social History Records FoundNo Social History Records FoundNo Social History Records FoundNo Social History Records FoundNo Social History Records Found Summary Purpose Family History No Family History Records FoundNo Family History Records FoundNo Family History Records FoundNo Family History Records Found Advance Directives No Advanced Directives Records FoundNo Advanced Directives Records FoundNo Advanced Directives Records FoundNo Advanced Directives Records Found History of Past Illness Problem Noted Date Resolved Date Acute on chronic combined systolic and diastolic CHF 018 08/08/2018 (congestive heart failure) Moderate aortic stenosis 11/25/2014 08/08/2018 Moderate aortic valve insufficiency 11/25/201407/16 Magnesium deficiency 12/03/2013 03/02/2016 Mild cognitive impairment with memory loss 07/03/2012 07/26/2017 Class 3 severe obesity due to excess calories with serious 0 07/03/2012 08/08/2018 comorbidity and body mass index (BMI) of 40.0 to 44.9 in adult Sciatica 08/29/2006 03/02/2016 Cervicitis and endocervicitis 03/02/2016 Problem Noted Date Resolved Date Acute on chronic combined systolic and diastolic CHF 018 08/08/2018 (congestive heart failure) Moderate aortic stenosis 11/25/2014 08/08/2018 Moderate aortic valve insufficiency 11/25/201407/16 Magnesium deficiency 12/03/2013 03/02/2016 Mild cognitive impairment with memory loss 07/03/2012 07/26/2017 Class 3 severe obesity due to excess calories with serious 0 07/03/2012 08/08/2018 comorbidity and body mass index (BMI) of 40.0 to 44.9 in adult Sciatica 08/29/2006 03/02/2016 Cervicitis and endocervicitis 03/02/2016 Problem Noted Date Resolved Date Acute on chronic combined systolic and diastolic CHF 018 08/08/2018 (congestive heart failure) Moderate aortic stenosis 11/25/2014 08/08/2018 Moderate aortic valve insufficiency 11/25/201407/16 Magnesium deficiency 12/03/2013 03/02/2016 Mild cognitive impairment with memory loss 07/03/2012 07/26/2017 Class 3 severe obesity due to excess calories with serious 0 07/03/2012 08/08/2018 comorbidity and body mass index (BMI) of 40.0 to 44.9 in adult Sciatica 08/29/2006 03/02/2016 Cervicitis and endocervicitis 03/02/2016 Problem Noted Date Resolved Date Acute on chronic combined systolic and diastolic CHF 018 08/08/2018 (congestive heart failure) Moderate aortic stenosis 11/25/2014 08/08/2018 Moderate aortic valve insufficiency 11/25/201407/16 Magnesium deficiency 12/03/2013 03/02/2016 Mild cognitive impairment with memory loss 07/03/2012 07/26/2017 Class 3 severe obesity due to excess calories with serious 0 07/03/2012 08/08/2018 comorbidity and body mass index (BMI) of 40.0 to 44.9 in adult Sciatica 08/29/2006 03/02/2016 Cervicitis and endocervicitis 03/02/2016 Problem Noted Date Resolved Date Acute on chronic combined systolic and diastolic CHF 018 08/08/2018 (congestive heart failure) Moderate aortic stenosis 11/25/2014 08/08/2018 Moderate aortic valve insufficiency 11/25/201407/16 Magnesium deficiency 12/03/2013 03/02/2016 Mild cognitive impairment with memory loss 07/03/2012 07/26/2017 Class 3 severe obesity due to excess calories with serious 0 07/03/2012 08/08/2018 comorbidity and body mass index (BMI) of 40.0 to 44.9 in adult Sciatica 08/29/2006 03/02/2016 Cervicitis and endocervicitis 03/02/2016 History of Present Illness (Rn), Kin Cuello - 09/27/2019 2:45 PM EDT HIGH RISK CHRONIC DISEASE MONITORING Provider Action/FYI: LVM Routine follow-up Contact made with patient: No - Left message - Hi my name is Khushboo Sanderson RN and I am calling from the [facility] on behalf of your PCP, Adair Rodriguez III MD Because of the COVID-19 outbreak, we were calling to help make sure you are feeling well and have what you need to manage your well-being. ?I wanted to let you know that this will be our last call together. When we first started talking a couple of months back, it was with the goal to check on your well-being during the COVID crisis. You have done an outstanding job working with us to manage your health. I have no doubt you will continueto take good care of yourself and reach out to your primary care provider's office should you have any health care needs. A few important reasons to reach out to your PCP's office include: ? Schedule your annual visit or routine follow up with your PCP. It is so important to let your provider know how you're doing and take care of routine health maintenance items. ? Request a medication refill or renewal before you run out! ? Inform them of any concerns. Your provider can work with you to identify the care needed. You justhave to let them know. You may contact your physician by calling his/her office directly or by using [employer] App to connect virtually. Thank you so much for your time today. It has been our pleasure to work with you over these past couple of months. We are creating new programs at the [facility] that you may be eligible for, so you may be contacted in the future. Until then, be well!? Outreach Ended. Khushboo Sanderson RN September 27, 2019 2:47 PM documented in this encounterAdair Rodriguez III - 11/12/2019 1:40 PM EDT SUBJECTIVE: This is a 84 year old female that is here today for medication follow up 1. ch low back pain with episodic tingling in hips and legs, and sometimes into upper back. Needing more tramadol than prescribed, delicia when working bent forward. MRI LS spine 2002 report reviewed: severe deg.disc dis. L4-L5. 2. CHF with ASHD--reviewed cardiology note from November,. At that time the patient was on Lasix40 mg once per day. She states that nurse practitioner roof increased Lasix 40 mg twice per day during and phone conversation several months ago. I do not have access to that note. Since then she thinks she may have some easier time breathing with less dyspnea on exertion. She wonders if she could reduce the Lasix dose to once per day. 3. CK D3?most recent GFR 29. This may be related to the increased dose of Lasix. We did discuss rechecking basic metabolic panel for assessment of renal function. I do plan to discuss with the cardiology office once results are back No chest pain or cough. No angina. She does get some shortness of breath on walking a distance but cannot say that this is worse than it was last year. Current Outpatient Medications on File Prior to Visit Medication Sig ? traMADol (ULTRAM) 50 mg tablet Take 1 tablet by mouth every 8 hours as needed for Pain for up to 30 days. ? levothyroxine (SYNTHROID) 125 mcg tablet Take 1 tablet by mouth once daily. Take on empty stomach.For Thyroid ? omeprazole (PRILOSEC) 20 mg capsule Take 1 capsule by mouth daily before breakfast. 1/2 hr before meal. ? lisinopril (ZESTRIL, PRINIVIL) 10 mg tablet Take 1 tablet by mouth once daily. ? Compression Stockings Knee High Compression Stockings 15-20 mm, DX: Peripheral venous insufficiency, Bilateral Lower Extremity edema ? furosemide (LASIX) 20 mg tablet Take 0.5 tablets by mouth once daily. ? doxycycline monohydrate (MONODOX) 100 mg capsule Take 1 capsule by mouth twice daily. (Patient nottaking: Reported on 12/22/2018 ) ? furosemide (LASIX) 20 mg tablet Take 1 tablet by mouth twice daily. (Patient taking differently: Take 40 mg by mouth once daily. ) ? cholestyramine-sucrose (QUESTRAN) 4 gram powder Take 4 g by mouth three times daily with meals. (Patient not taking: Reported on 10/10/2018 ) ? spironolactone (ALDACTONE) 25 mg tablet Take 1 tablet by mouth twice daily. (Patient not taking: Reported on 12/22/2018 ) ? amLODIPine (NORVASC) 5 mg tablet Take 1 tablet by mouth once daily. ? metoprolol tartrate, short acting, (LOPRESSOR) 25 mg tablet Take 0.5 tablets by mouth twice daily. ? docusate sodium (COLACE ORAL) Take 240 mg by mouth twice daily. ? amiodarone (CORDARONE) 200 mg tablet Take 1 tablet by mouth once daily. ? apixaban (ELIQUIS) 5 mg tab(s) Take 1 tablet by mouth twice daily. ? clopidogrel (PLAVIX) 75 mg tablet Take 1 tablet by mouth once daily. ? melatonin 10 mg cap Take by mouth. ? calcium carbonate 600 mg-cholecalciferol 200 units (CALCIUM 600 + D,3,) 600 mg(1,500mg) -200 unit tab Take 1 tablet by mouth once daily. (Patient not taking: Reported on 10/10/2018 ) ? nitroglycerin sublingual (NITROQUICK) 0.4 mg SL tablet Dissolve 1 tablet under the tongue as needed. FOR CHEST PAIN. IF NO RELIEF CALL 911 ? Magnesium 250 mg tab 2 tablets in the morning and 2 tablet in the evening (Patient not taking: Reported on 08/08/2018 ) ? therapeutic multivitamin ORAL tablet Take one(1) tablet daily. ? fish oil/dha/epa(FISH OIL 1,200 MG-144 MG-216 MG CAP) one capsule every other day No current facility-administered medications on file prior to visit. PAST MEDICAL HISTORY Diagnosis Date ? Acute on chronic combined systolic and diastolic CHF (congestive heart failure) ([facility]) 07/12/2017 ? Atherosclerotic heart disease of [place] coronary artery without angina pectoris ? Atrial fibrillation ([facility]) 03/02/2016 following CABG and aortic valve replacement ? Cervicitis and endocervicitis ? Chronic congestive heart failure ([facility]) 03/03/2015 ? CKD (chronic kidney disease) stage 3, GFR 30-59 ml/min ([facility]) 07/12/2017 ? Coronary artery disease ? Diverticulosis of colon (without mention of hemorrhage) Diverticulosis ? Esophagitis ? Heart attack ([facility]) ? History of aortic valve replacement 03/02/2016 ? Hypertension ? Hypothyroidism, acquired 07/12/2017 ? Moderate aortic stenosis 11/25/2014 ? Moderate aortic valve insufficiency 11/25/2014 ? Osteoarthrosis, unspecified whether generalized or localized, other specified sites ? Paroxysmal atrial fibrillation (HCC) ? PUD (peptic ulcer disease) 12/18/2009 ? S/P CABG x 2 03/02/201601/2016--complicated by atrial fibrillation ? Statin intolerance 07/22/2016 ? Syncope ? Takotsubo cardiomyopathy 02/2018 ? Unspecified hemorrhoids without mention of complication Hemorrhoids FAMILY HISTORY Problem Relation Age of Onset ? Heart Mother ? Diabetes Mother ? Alcohol/Drug Father ? Thyroid Brother Social History Tobacco Use ? Smoking status: Never Smoker ? Smokeless tobacco: Never Used Substance Use Topics ? Alcohol use: No ? Drug use: No BP 100/61 Pulse 91 Resp 16 Wt 84.4 kg (186 lb) BMI 36.33 kg/m? OBJECTIVE: APPEARANCE Well appearing, alert, in no acute distress, well-hydrated, well nourished. and Obese NECK Supple, no adenopathy; thyroid symmetric, normal size, no bruits HEART irreg pulse with normal S1 and S2, no murmurs, no gallops, no JVD appreciated LUNG clear to auscultation BACK: She has a slight forward lean at the waist with standing. Mild tenderness in the low LS spine midline. Extension to vertical and somewhat beyond causes pain localized in the back without radiation. Limited, painful lateral lean bilaterally EXTREMITIES no lower leg edema bilaterally Lab Results for GALILEO HUSTON ( ) as of 11/12/2019 13:56 Ref. Range 07/27/2019 00:00 Sodium Latest Ref Range: 136 - 145 MEQ/L 141 Potassium Latest Ref Range: 3.5 - 5.1 MEQ/L 4.4 Chloride Latest Ref Range: 98 - 107 MEQ/L 105 Creatinine Latest Ref Range: 0.6 - 1.3 MG/DL 1.80 (A) Glucose Latest Ref Range: 74 - 106 MG/DL 111 (A) Anion Gap Unknown 4 TSH Unknown 1.59 Urea Nitrogen Latest Ref Range: 6 - 20 mg/dL 48 (A) BICARBONATE Unknown 32.0 Calcium Latest Ref Range: 8.8 - 10.5 MG/DL 9.5 GFR Latest Units: mL/MIN 29 GFR AFR AMER Latest Units: mL/MIN 35 ASSESSMENT: degenerative LS disc dis with radiculopathy atrial fib-rate controlled ch anticoagulation CHF-stable CKD 3-decreasing GFR PLAN: increase tramadol 50 mg twice/day as needed for pain may use tizanidine 4 mg three times/day as needed for muscle spasms careful activity with frequent rest same other medications recommended PT-declined BMP-- I will discuss with Dr Mason office re: continuing lasix 40 mg BID or perhaps decreasing to 40 mg daily in light of renal function and improved control of NUÑEZ Adair Rodriguez III MD PDMP website checked and validated. All prescriptions have been APPROPRIATELY filled. No suspicious activity was identified. 11/12/2019 by Adair Rodriguez III MD documented in this encounter Assessments Diagnosis DDD (degenerative disc disease), lumbar Degeneration of lumbar or lumbosacral in tervertebral disc Diagnosis DDD (degenerative disc disease), lumbar - Primary Degeneration of lumbar or lumbosacral in tervertebral disc Need for vaccination Need for prophylactic vaccination and in oculation against unspecified single disease Chronic anticoagulation Long-term (current) use of anticoagulant s CKD (chronic kidney disease) stage 3, GF R 30-59 ml/min Chronic kidney disease, Stage III (moder ate) Atrial fibrillation, unspecified type (H CC) Chronic diastolic congestive heart failu re (HCC) Chronic diastolic heart failure Instructions Patient InstructionsAdair Rodriguez III - 11/12/2019 1:54 PM EDTPLAN: increase tramadol 50 mg twice/day as needed for pain may use tizanidine 4 mg three times/day as needed for muscle spasms careful activity with frequent rest same other medications recommended PT-declined BMP-- I will discuss with Dr Mason office re: continuing lasix 40 mg BID or perhaps decreasing to 40 mg daily in light of renal function and improved control of NUÑEZ Adair Rodriguez III MD documented in this encounter Additional Source Comments FOR RECORDS PERTAINING TO PATIENTS WHO ARE OR HAVE BEEN ENROLLED IN A CHEMICAL DEPENDENCY/SUBSTANCE ABUSE PROGRAM, SOME INFORMATION MAY BE OMITTED. This clinical summary was aggregated from multiple sources. Caution should be exercised in using it in the provision of clinical care. This summary normalizes information from multiple sources, and as a consequence, information in this document may materially changethe coding, format and clinical context of patient data. In addition, data may be omittedin some cases. CLINICAL DECISIONS SHOULD BE BASED ON THE PRIMARY CLINICAL RECORDS. [facility] provides no warranty or guarantee of the accuracy or completeness of information in this document. UNRECOGNIZED CONTENT PROVIDED BELOW FOR UNRECOGNIZED SECTION INFORMATION SOURCE DATE CREATED AUTHOR AUTHOR'S ORGANIZATIO N 08/04/2017 [facility] DATE CREATED AUTHOR AUTHOR'S ORGANIZATIO N 08/09/2017 [facility] ([place]) DATE CREATED AUTHOR AUTHOR'S ORGANIZATIO N 08/18/2017 [facility] DATE CREATED AUTHOR AUTHOR'S ORGANIZATIO N 11/16/2019 [facility] UNRECOGNIZED CONTENT PROVIDED BELOW FOR UNRECOGNIZED SECTION Source Comments In the event this information is protected by the Federal Confidentiality of Alcohol and Drug Abuse Patient Records regulations: The Federal rules restrict any use of the information to criminally investigate or prosecute any alcohol or drug abuse patient.[facility] the event this information is protected by the Federal Confidentiality of Alcohol and Drug Abuse Patient Records regulations: The Federal rules restrict any use of the information to criminally investigate or prosecute any alcohol or drug abuse patient.[facility] the event this information is protected by the Federal Confidentiality of Alcohol and Drug Abuse Patient Records regulations: The Federal rules restrict any use of the information to criminally investigate or prosecute any alcohol or drug abuse patient.[facility] the event this information is protected by the Federal Confidentiality of Alcohol and Drug Abuse Patient Records regulations: The Federal rules restrict any use of the information to criminally investigate or prosecute any alcohol or drug abuse patient.[facility] the event this information is protected by the Federal Confidentiality of Alcohol and Drug Abuse Patient Records regulations: The Federal rules restrict any use of the information to criminally investigate or prosecute any alcohol or drug abuse patient.[facility] UNRECOGNIZED CONTENT PROVIDED BELOW FOR UNRECOGNIZED SECTION Reason for Visit Reason Onset Date Comments Community Monitoring Outreach 09/27/2019 Outreach 1 1 Reason Onset Date Comments Refill Request 10/18/2019 Reason Comments F/U 3 Month Reason Onset Date Comments medication clarification 11/14/2019 Reason Onset Date Comments lab clarification 11/14/2019 UNRECOGNIZED CONTENT PROVIDED BELOW FOR UNRECOGNIZED SECTION Miscellaneous Notes Telephone Encounter - Adair Rodriguez III - 10/18/2019 12:27 PM EDTPP website checked and validated. All prescriptions have been APPROPRIATELY filled. No suspicious activity was identified. 10/18/2019 by Adair Rodriguez III MD elephone Encounter - Vaishnavi Pastor RN - 10/18/2019 11:46 AM EDT Patient phones requesting refills as follows: Pending Prescriptions Disp Refills TRAMADOL 50 MG TABLET 45 tablet 0 Sig: Take 1 tablet by mouth every 8 hours as needed for Pain for up to 30 days. RADHA Class: C-IV COSME: No Verified pharmacy Last office visit 05-29-2019 Please review and advise. Vaishnavi Pastor RN documented in this encounterTelephone Encounter - Adair Rodriguez III - 11/14/2019 9:[address] Mason office: I discussed the GFR 29 with Eusebia Park CNP-- He stated he would contact patient to reduce lasix 40 mg qam. Will need to follow renal function--orders placed Adair Rodriguez III MD elephone Encounter - Mira Mckenzie RN - 11/14/2019 8:41 AM EDTPatient was reviewing her medication list and discovered that Lasix was listed twice. She thought that PCP was going to reach out to meat processor, Dr. Mason to determine which dose of Lasix she is taking. States she is currently taking 40 mg twice a day and that PCP was concerned this was too much andcould be decreasing her kidney function. Patient admits not seeing Isabella recently in office and nurse encouraged regular follow up with her meat processor. Patient will call meat processor now, to clarify what dose Lasix she should be taking and also schedule appointment and inquire about checking labs as well. Patient agreeable to call back to PCP office with update on her Lasix dosing. Mira Mckenzie RN documented in this encounterTelephone Encounter - Pricila Stern (Director Education)ANGELES - 11/15/2019 1:39 PM EDTPatient notified, voiced understanding. Pricila Stern CMA Telephone Encounter - Adair Rodriguez III - 11/15/2019 1:12 PM EDTrecheck BMP 1 mo--order entered Adair Rodriguez III MD elephone Encounter - Mira Mckenzie RN - 11/14/2019 2:17 PM EDTPatient received instructions from Cardiology/ Dr. Mason/Eusebia Park CNP. Patient will see Eusebia in two weeks and is aware to decrease Lasix to 40 mg once daily in am. Asking for clarification of when kidney function panel should be rechecked again? Please review and advise. Patient is aware PCP is out today and will address tomorrow. Mira Mckenzie RN documented in this encounter
== END ==
PROVIDERS: PCP Family Medicine; Referring Provider Physician Assistant Medical; Visit Provider Physician Assistant Medical
DX: I10 Essential (primary) hypertension (principal); I25.10 Atherosclerotic heart disease of native coronary artery without angina pectoris; I51.81 Takotsubo syndrome; I48.0 Paroxysmal atrial fibrillation; Z95.3 Presence of xenogenic heart valve
CPT/HCPCS: 36415; 80048; 84443

== ENCOUNTER → 2019-12-05 16:18 | Outpatient (CLI) | payer MEDICARE, SELFPAY ==
[2019-12-05 15:17] VITALS: BMI 35.9
[2019-12-05 17:31] LABS: Anion Gap 9 (5-15); BUN 35 mg/dL (7-18); BUN/Creat Ratio 18.7 RATIO (10-20); Calcium,Total 9.2 mg/dL (8.5-10.1); Chloride 104 mmol/L (98-107); Creatinine, Serum 1.87 mg/dL (0.55-1.02); EST Glomerular Filtration Rate 27 mL/min (>60); Est Glom Filt Rate - Afr Amer 33 mL/min (>60); Glucose 128 mg/dL (74-106); Potassium 4.5 mmol/L (3.5-5.1); Sodium Level 139 mmol/L (136-145)
== END ==
PROVIDERS: PCP Family Medicine; Visit Provider Physician Assistant Medical
DX: I25.10 Atherosclerotic heart disease of native coronary artery without angina pectoris (principal)
CPT/HCPCS: 36415; 80048

== ENCOUNTER 2019-12-24 10:19 | Day surgery (SDC) | payer MEDICARE, SELFPAY ==
[2019-12-05 15:17] VITALS: BMI 35.9
[2019-12-21 08:06] VITALS: BMI 35.9
--- NOTE | 2019-12-24 09:28 | HP_ITS ---
HPI HPI History of Present Illness Surgical H&P: Yes Details: This is an 84-year-old female that presents here today for a cardiovascular follow-up. She does have a history of coronary artery disease with bypass surgery. She had an VALERIO to the LAD and SVG to the posterior descending. She also has a bioprosthetic aortic valve, diastolic dysfunction, hypertension, pulmonary hypertension, paroxysmal atrial fibrillation. She recently decreased lasix from her PCP d/t concerns of kidney function. She is here today to follow-up on this. Pt sts that she did have some swelling, but this has since improved after adjusting her last. She does not have any chest pain. She does have SOB with exertion. She feels that this is d/t her Afib. At her last OV we increased her metoprolol and her HR was better controlled. Today it is elevated again. She feels that she is in Afib persistently. She feels that this is contributing her to SOB. She does feel palpitations. She does have issues with her balance. Intake Vital Signs 12/05/19 Height 5 ft 12/05/19 Weight: 184 lb 12/05/19 BMI 35.9 12/05/19 BP 166/89 H 12/05/19 Blood Pressure Location Lt brachial 12/05/19 Position Sitting 12/05/19 Respiration 18 12/05/19 Pulse 96 12/05/19 Pulse Source Monitor 12/05/19 Pulse Oximetry (%) 98 Intake Visit Reasons: lasix Director Of Alumni Relations Required: No Is patient in pain?: No Allergies atorvastatin [From Lipitor] Adverse Reaction (Verified 12/05/19 15:14) Pain in joints niacin Adverse Reaction (Verified 12/05/19 15:14) Pain in joints pregabalin [From Lyrica] Adverse Reaction (Verified 12/05/19 15:14) Other simvastatin [From Zocor] Adverse Reaction (Verified 12/05/19 15:14) Pain in joints Medications Nitroglycerin (INPATIENT USE) [Nitrostat] 0.4 mg SUBLINGUAL Q5M PRN 02/24/16 [History Confirmed 12/05/19] amiodarone 200 mg tablet 200 mg PO DAILY #90 tab 04/03/18 [Rx Confirmed 12/05/19] levothyroxine 125 mcg tablet 125 mcg PO DAILY #30 tab 11/14/18 [History Confirmed 12/05/19] tramadol 50 mg tablet 50 mg PO BID 11/16/18 [History Confirmed 12/05/19] amlodipine 10 mg tablet 5 mg PO DAILY #90 tab 12/13/18 [Rx Confirmed 12/05/19] lisinopril 5 mg tablet 10 mg PO DAILY tab 12/13/18 [History Confirmed 12/05/19] Ondansetron [Zofran Odt] 4 mg PO Q8H PRN PRN #14 tab 05/26/19 [Rx Confirmed 12/05/19] clopidogrel 75 mg tablet 75 mg PO DINNER #90 tab 07/27/19 [Rx Confirmed 12/05/19] omeprazole 20 mg tablet,delayed release 20 mg PO DAILY #90 tab 07/27/19 [Rx Confirmed 12/05/19] apixaban 2.5 mg tablet 2.5 mg PO BID #180 tab 11/14/19 [Rx Confirmed 12/05/19] furosemide 40 mg tablet 40 mg PO DAILY #90 tab 11/14/19 [Rx Confirmed 12/05/19] metoprolol tartrate 25 mg tablet 25 mg PO BID tab 12/05/19 [History Confirmed 12/05/19] PFSH Medical History Essential hypertension (Chronic) 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) Nonrheumatic aortic valve insufficiency (Chronic) Nonrheumatic mitral (valve) insufficiency (Chronic) Secondary pulmonary arterial hypertension (Chronic) Paroxysmal atrial fibrillation (Chronic) Takotsubo cardiomyopathy (Chronic) Atherosclerosis of coronary artery of [place] heart without angina pectoris (Chronic) Acquired hypothyroidism (Chronic) Anemia (Chronic) Anxiety and depression (Chronic) Chronic kidney disease, stage 3 (Chronic) Esophagitis (Chronic) Insomnia (Chronic) Obesity (BMI 30-39.9) (Chronic) PUD (peptic ulcer disease) (Chronic) Acute kidney injury (Inactive) Surgical History History of coronary artery stent placement (Chronic 2014) H/O coronary artery bypass surgery (Chronic 01/2016) History of aortic valve replacement with bioprosthetic valve (Chronic 01/2016) Family History Mother Diabetes Heart disease Other CAD (coronary artery disease) Social History (Updated 12/11/19 @ 09:57 by Montserrat MOELLER, PA) Smoking Status: Never smoker alcohol intake: never caffeine: Yes Type: coffee ROS Const Const: Positive for fatigue and weakness; negative for headache(s), frequent falls, difficulty sleeping or excessive sweating Eyes Eyes: Negative for loss of peripheral vision, transient loss of vision, blurry vision, double vision or tunnel vision ENT ENT: Negative for headache(s), dizziness, Nosebleed/epistaxis or balance problems Cardio Chest Pain: No Palpitations: No Edema: None Muscle aches with walking: None Resp Respiratory: Positive for SOB with activity (with stairs, hills); negative for SOB at rest, SOB orthopnea\SOB lying down, Cough or paroxysmal nocturnal dyspnea GI GI: Negative nausea, vomiting, heartburn or black,tarry stools : Negative for hematuria Musc Musc: Negative for muscle aches/ myalgia, muscle weakness, joint pain or balance problems Skin Skin: Negative non-healing lesions, rash or unusual bruising Neuro Neuro: Positive for weakness; negative for dizziness, lightheadedness, near syncope, syncope, frequent falls, headache(s), blurry vision, double vision or lack of coordination Quentin Hematologic/Lymphatic: Negative for easy bleeding or easy bruising Endo Endo: Positive for fatigue; negative for excessive sweating or increased thirst/drinking Psych Psych: Negative for anxiety or depression Allergy Allergy/Immunology: Negative for hives, Negative for rash Assessment & Plan 1. Persistent atrial fibrillation I48.19 Plan Patient feels that she has symptomatic. In the past we had discussed about pursuing a cardioversion. She would like to attempt this option. If she does not maintain sinus rhythm will then consider stopping her amiodarone and using rate control. She has been anticoagulated for at least 1 month without interruption. Patient Instructions Your cardioversion will tentatively be scheduled for December 23. Do not eat or drink anything after midnight the night before your procedure. 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 Essential hypertension I10 Plan Blood pressure is well controlled on current medications, we do not recommend any changes at this time. 3. Takotsubo cardiomyopathy I51.81 Plan This has resolved. We will continue to monitor with echocardiograms as deemed appropriate. 4. Atherosclerosis of [place] coronary artery of [place] heart without angina pectoris I25.10 CABG x 2 VALERIO-LAD, 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/2015 Plan Stable, from a cardiac standpoint patient does not have any symptoms of angina. We recommend that they continue with current aggressive medical management and risk factor modification. Orders Orders: Basic Metabolic Profile (BMP) 12/05/19 5. History of aortic valve replacement with bioprosthetic valve Z95.3 Plan Recent echocardiogram has been reviewed. We will continue to monitor by history, exam and echocardiograms as deemed appropriate. Patient will continue with antibiotic prophylaxis. 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) Coding Level of Care Code Off vis,est,level 4 Diagnoses Persistent atrial fibrillation I48.19 Essential hypertension I10 Takotsubo cardiomyopathy I51.81 Atherosclerosis of [place] coronary artery of [place] heart without angina pectoris I25.10 ??Coronary Disease-Associated Artery/Lesion type: [place] artery History of aortic valve replacement with bioprosthetic valve Z95.3 Coding Level of Care Code Off vis,est,level 4 Diagnoses Persistent atrial fibrillation I48.19 Essential hypertension I10 Takotsubo cardiomyopathy I51.81 Atherosclerosis of [place] coronary artery of [place] heart without angina pectoris I25.10 ??Coronary Disease-Associated Artery/Lesion type: [place] artery History of aortic valve replacement with bioprosthetic valve Z95.3 Supplemental Info Supplemental Information Echocardiogram in 2019 demonstrated: Normal LV size. Left ventricular systolic function is normal. The estimated ejection fraction is 55 %. Stage 3 diastolic dysfunction. Mild (1+) eccentric aortic valve insufficiency. Bioprosthetic aortic valve. Compared to previous study, the left ventricular systolic function has improved.. Heart cath in 2018 demonstrated: Patent left internal mammary artery to the left anterior descending artery, and saphenous vein graft to posterior descending artery. The [place] vessels also do not demonstrate any high-grade stenosis. Bioprosthetic aortic valve is stable with no gradient. Diagnostics Electrocardiogram 12/05/19 Stress Test Nuclear Medicine 12/06/18 Stress Test 12/06/18 COVID (Procedure Consent) Procedure Criteria Procedure Criteria: Yes Elective The surgeon/proceduralist and patient have discussed in detail the risk of exposure to and/or potential harm posed by the COVID-19 virus with having a surgery/procedure at this time versus the risk of? delaying the surgery/procedure. It is not possible to know either the risk of delaying the surgery or procedure or chance of getting an infection with perfect accuracy, but a joint decision was made between the patient and the surgeon/proceduralist ?to proceed at this time with the scheduled surgery/procedure as indicated on the consent form.
--- NOTE | 2019-12-24 12:40 | CARDIOVERS ---
Cardioversion Cardioversion: Elective DC cardioversion. 84-year-old lady with a history of coronary artery disease, valvular heart disease status post bioprosthetic aortic valve, chronic persistent symptomatic atrial fibrillation. The patient was brought to the cardiac catheterization lab in the postabsorptive nonsedated state. Informed consent was obtained. The patient was seen by Dr. Orr of the critical care division. Anterior-posterior pads were applied. The patient was then administered 40 mg of intravenous propofol and then 200 J of synchronized DC cardioversion energy was applied. Patient reverted to sinus rhythm. Patient tolerated the procedure well. Conclusion: Successful DC cardioversion from atrial fibrillation to sinus rhythm. Continue current medical therapy.
--- NOTE | 2019-12-24 18:16 | PRO.PCM_ITS ---
Problem List (1) Atherosclerosis of coronary artery of [place] heart without angina pectoris Status: Chronic Qualifiers: Comment: CABG x 2 VALERIO-LAD, 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/2015 (2) Chronic combined systolic and diastolic CHF (congestive heart failure) Status: Chronic (3) History of aortic valve replacement with bioprosthetic valve Status: Chronic (4) History of coronary artery stent placement Status: Chronic Comment: PCI-KHOI-LAD 2014 (5) Nonrheumatic aortic valve insufficiency Status: Chronic (6) Nonrheumatic mitral (valve) insufficiency Status: Chronic (7) Nonrheumatic pulmonary valve insufficiency Status: Chronic (8) Paroxysmal atrial fibrillation Status: Chronic (9) Secondary pulmonary arterial hypertension Status: Chronic (10) H/O coronary artery bypass surgery Status: Resolved Comment: CABG x 2 VALERIO-LAD, 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/2015 Procedure Report Date of Procedure: 12/24/19 - Conscious sedation CONSCIOUS SEDATION REPORT BRIEF HISTORY OF PRESENT ILLNESS: The patient is an 84-year-old female who presented to [facility] for an elective outpatient cardioversion due to underlying atrial fibrillation. The patient reports no PO intake since midnight. The patient does not have a history of obstructive sleep apnea. The patient reports no history of smoking and COPD. The patient denies any recent constitutional symptoms such as fevers, chills, nausea or vomiting. The patient denies previous anesthetic complications. Patient's last known ejection fraction was 55%. Patient did report taking Eliquis on the day of the examination/procedure PHYSICAL EXAMINATION: VITAL SIGNS: Reviewed and were acceptable. GENERAL: The patient is a female, in no apparent distress, speaking in full sentences. HEENT: Normocephalic, atraumatic. Mucous membranes are moist and pink. Good mouth opening noted. Trachea is midline. Good neck mobility. MP II CHEST: S1, S2 irregularly irregular. No murmurs, rubs or gallops were noted. LUNGS: Clear to auscultation bilaterally without appreciable wheezes, rales or rhonchi. ABDOMEN: Soft, nontender, nondistended. Positive bowel sounds. EXTREMITIES: There is no clubbing, cyanosis or edema. ASA Class: II DESCRIPTION OF PROCEDURE: After confirmation of informed consent, the patient's anesthesia plan was reviewed in detail. Propofol was chosen. Risks and benefits were reviewed and the patient agreed to proceed. At 12:34 PM, the patient was given 40 mg of propofol. The patient achieved an appropriate level of sedation and received 1 attempt synchronized cardioversion, at [address] Mason at the bedside. This was successful in achieving normal sinus rhythm. The patient was monitored until 12:45 PM, at which time the patient reached their baseline mental status and function. The patient tolerated the procedure well. COMPLICATIONS: None ESTIMATED BLOOD LOSS: None RECOMMENDATIONS: Okay to recover in usual fashion. 9xxxx: Other Procedure See Report - [id number]
== END 2019-12-24 13:45 | disposition home or self-care (01) ==
LOC: CLSP 10:21
PROVIDERS: PCP Family Medicine; Referring Provider Internal Medicine Cardiovascular Disease; Visit Provider Internal Medicine Cardiovascular Disease
DX: I48.0 Paroxysmal atrial fibrillation (principal); I35.1 Nonrheumatic aortic (valve) insufficiency; I37.1 Nonrheumatic pulmonary valve insufficiency; I13.0 Hypertensive heart and chronic kidney disease with heart failure and stage 1 through stage 4 chronic kidney disease, or unspecified chronic kidney disease; I50.42 Chronic combined systolic (congestive) and diastolic (congestive) heart failure; N18.30 Chronic kidney disease, stage 3 unspecified; I25.10 Atherosclerotic heart disease of native coronary artery without angina pectoris; I27.21 Secondary pulmonary arterial hypertension; E03.9 Hypothyroidism, unspecified; D64.9 Anemia, unspecified; E66.9 Obesity, unspecified; Z79.02 Long term (current) use of antithrombotics/antiplatelets; Z79.01 Long term (current) use of anticoagulants; Z79.899 Other long term (current) drug therapy; Z95.3 Presence of xenogenic heart valve; Z95.1 Presence of aortocoronary bypass graft
CPT/HCPCS: 92960; 93005; J7040

== ENCOUNTER 2020-01-26 06:53 | Emergency (ER) | payer MEDICARE, SELFPAY ==
[2020-01-26 06:53] VITALS: BP 161/58; PULSE 58; RESP 18; TEMP 37.1; O2SAT 94; BMI 37.2
--- NOTE | 2020-01-26 07:05 | RAD_ITS ---
STUDY: X-RAY - LEFT KNEE REASON FOR EXAM: Female, 84 years old. Fall. Knee pain. TECHNIQUE: 4 view(s) of the knee. COMPARISON: None. FINDINGS: There is a total knee replacement. The prosthetic components are intact and articulate normally with each other. There is no evidence of loosening from the underlying bone. There is no evidence of osseous fracture or destructive osseous pathology. No joint effusion. There are calcifications in popliteal artery. There is surgical clips in the soft tissues of the medial knee suggesting prior vascular surgery. RAD/Knee 4 or More Views IMPRESSION: Left total knee replacement without acute abnormality. Electronically Signed: Trevor Goddard DO at 8:19 EST Tel [phone], Service support ,
--- NOTE | 2020-01-26 07:05 | CT_ITS ---
STUDY: CT CHEST WITHOUT CONTRAST REASON FOR EXAM: Female, 84 years old. RIGHT RIB AND LT SHOULDER PAIN FROM FALL. RADIATION DOSAGE (If Supplied By Facility): CTDIvol = ( 16.43 ) mGy, DLP = ( 636.35 ) mGycm TECHNIQUE: Transaxial imaging was performed without the administration of intravenous contrast material. Individualized dose optimization techniques were used for this CT. COMPARISON: None. FINDINGS: Status post median sternotomy. Mild bilateral apical scarring. 8 mm noncalcified subpleural nodule in the left lower lobe on image 74 and the follow-up CT the chest is recommended in 6 months document stability. Normal heart and pericardium. There are calcifications of the coronary arteries. Moderate sized hiatal hernia. Normal hilar regions. There is prominence of the pulmonary hilar arteries without peripheral pulmonary vascular congestion, suggesting pulmonary hypertension. Normal aorta arch and descending thoracic aorta. Mild dextroscoliosis of the thoracic spine with degenerative disc disease. There is no demonstrated abnormality of the visualized upper abdomen. CT/Chest without Contrast IMPRESSION: 1. No acute fracture. 2. 8mm noncalcified pleural-based nodule in the left lower lobe and follow-up CT the chest is recommended in 6 months document stability. 3. Suspect pulmonary arterial hypertension. 4. Moderate hiatal hernia. Electronically Signed: Mitchell Walsh MD at 8:36 EST Tel , Service support ,
--- NOTE | 2020-01-26 07:05 | CT_ITS ---
STUDY: CT BRAIN WITHOUT CONTRAST REASON FOR EXAM: Female, 84 years old. FALL HIT LT SIDE OF HEAD. NO LOC. + THINNERS. RADIATION DOSAGE (If Supplied By Facility): CTDIvol = ( 44.99 ) mGy, DLP = ( 779.24 ) mGycm TECHNIQUE: Transaxial CT imaging of the brain was performed without administration of intravenous contrast material. Individualized dose optimization techniques were used for this CT. COMPARISON: 06/15/2018 FINDINGS: Normal soft tissue structures. Normal calvarium. There is mild cerebral atrophy with widening of the extra-axial spaces and ventricular dilatation. Normal white matter tracts of the cerebral hemispheres. Normal basal ganglia and thalami. Normal brainstem. Normal cerebellum. There is no intracranial hemorrhage. There are no findings of an acute ischemic infarction. Normal visualized paranasal sinuses. CT/Brain/Head without Contrast IMPRESSION: Chronic involutional changes of the brain. Electronically Signed: Mitchell Walsh MD at 8:28 EST Tel , Service support ,
--- NOTE | 2020-01-26 07:07 | ED.DCSUM_ITS ---
History of Present Illness Chief Complaint: Fall Informant: Patient Narrative: 84-year-old female on Plavix aspirin and Eliquis states that she sustained a fall while ambulating to the bathroom today. She struck the door frame with the left side of her head. She also injured the right side of her ribs the left shoulder and left knee. No loss of consciousness. No vomiting. She notes generalized soreness but the above mentioned areas are hurting her the most. She has bilateral knee replacements. - Past Medical History (1) Essential hypertension Status: Chronic (2) History of coronary artery stent placement Status: Chronic Comment: PCI-KHOI-LAD 2014 (3) Chronic combined systolic and diastolic CHF (congestive heart failure) Status: Chronic (4) Nonrheumatic pulmonary valve insufficiency Status: Chronic (5) Nonrheumatic aortic valve insufficiency Status: Chronic (6) Nonrheumatic mitral (valve) insufficiency Status: Chronic (7) Secondary pulmonary arterial hypertension Status: Chronic (8) Paroxysmal atrial fibrillation Status: Chronic (9) Takotsubo cardiomyopathy Status: Chronic (10) H/O coronary artery bypass surgery Status: Resolved Comment: CABG x 2 VALERIO-LAD, 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/2015 (11) Atherosclerosis of coronary artery of [place] heart without angina pectoris Status: Chronic Comment: CABG x 2 VALERIO-LAD, 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/2015 Past Medical History - Allergies and Home Meds Allergies/Adverse Reactions: Allergies atorvastatin [From Lipitor] Adverse Reaction (Verified 01/26/20 06:58) Pain in joints niacin Adverse Reaction (Verified 01/26/20 06:58) Pain in joints pregabalin [From Lyrica] Adverse Reaction (Verified 01/26/20 06:58) Other simvastatin [From Zocor] Adverse Reaction (Verified 01/26/20 06:58) Pain in joints Primary Care Physician: Matteo West III, MD [Primary Care Provider] - Prior records reviewed: Yes Surgical History: coronary bypass surgery Lives: Spouse/ Significant Other Smoking Status: Never smoker Alcohol: None Drugs: None - Family History Maternal Family History: Family History (Last Reviewed 07/27/19 @ 14:20 by Montserrat Villa PA, PA) Mother Diabetes Heart disease Other CAD (coronary artery disease) Family History: Reports: Diabetes, Heart Disease Review of Systems General: Denies: Chills, Fever, Sweats Eyes: Denies: Visual changes - bilaterally, Diplopia ENT: Denies: Rhinorrhea, Sore throat Cardiovascular: Reports: Chest pain. Denies: Palpitations Respiratory: Denies: Dyspnea, Cough, Dyspnea on exertion Gastrointestinal: Denies: Abdominal pain, Nausea, Vomiting, Diarrhea, Melena, Hematochezia Genitourinary: Denies: Dysuria, Hematuria, Frequency Musculoskeletal: Reports: Extremity Pain. Denies: Back pain Skin: Denies: Rash, Wounds Neurological: Reports: Headache. Denies: Weakness, Numbness Physical Exam Vital Signs/Narrative: Vital Signs Temp Pulse Resp BP Pulse Ox 01/26/20 06:53 98.7 F 58 L 18 161/58 H 94 Inital Vital Signs reviewed: Yes General: Well nourished, Well developed, No Acute Distress Head: Normocephalic, Atraumatic Eyes: Perrl, EOMI ENT: Moist mucous membranes, No rhinorrhea Neck: Supple, Nontender Cardiovascular: Regular rate, Regular rhythm, No murmurs Respiratory: No distress, CTA bilaterally, Chest tenderness - Right mid lateral ribs Abdomen: Soft, Nontender, Nondistended, Normal bowel sounds Back: Nontender, Normal Inspection Extremities: Tenderness - Ecchymosis over the left shoulder with tenderness to palpation. Full range of motion however. Left knee tenderness to palpation. Skin: Normal color, No rash Neurological: Alert, Oriented x3, Cranial nerves II-XII grossly intact, Normal Strength, Normal Sensation Psychological: Normal affect, Normal Mood Diagnostic/Tx/Re-eval Clinical Impression(s) from Imaging Studies Brain CT 01/26/20 07:05 IMPRESSION: Chronic involutional changes of the brain. Electronically Signed: Mitchell Walsh MD at 8:28 EST Tel , Service support , Chest CT 01/26/20 07:05 IMPRESSION: 1. No acute fracture. 2. 8mm noncalcified pleural-based nodule in the left lower lobe and follow-up CT the chest is recommended in 6 months document stability. 3. Suspect pulmonary arterial hypertension. 4. Moderate hiatal hernia. Electronically Signed: Mitchell Walsh MD at 8:36 EST Tel , Service support , Knee X-Ray 01/26/20 07:05 IMPRESSION: Left total knee replacement without acute abnormality. Electronically Signed: Trevor Goddard, at 8:19 EST Tel [phone], Service support , - Medical Decision Making Patient has been able to ambulate to the bathroom and back to the bed. No obvious fractures or intracranial hemorrhage was noted. There was a pulmonary nodule noticed on the CT which was relayed to the patient. She can follow-up as an outpatient for this. This point patient be discharged home with conservative home care. Return if worsening or concerns ED Disposition - Plan for ED Patient: Disposition: Home or Assisted Living Diagnosis: Contusion of left shoulder, Chest wall contusion, Contusion of left knee, Head injury without concussion or intracranial hemorrhage, Pulmonary nodule Instructions: ED Soft Tissue Contusion, ED Pulmonary Nodule, Solitary Referrals: Matteo West III, MD [Primary Care Provider] - 1-2 Weeks
[2020-01-26 08:47] VITALS: BP 129/74; PULSE 62; RESP 15; O2SAT 98
== END 2020-01-26 08:48 | disposition home or self-care (01) ==
PROVIDERS: Emergency Provider Emergency Medicine; PCP Family Medicine
DX: S09.90XA Unspecified injury of head, initial encounter (principal); S40.012A Contusion of left shoulder, initial encounter; S80.02XA Contusion of left knee, initial encounter; S20.219A Contusion of unspecified front wall of thorax, initial encounter; W01.10XA Fall on same level from slipping, tripping and stumbling with subsequent striking against unspecified object, initial encounter; Y93.01 Activity, walking, marching and hiking; Y92.9 Unspecified place or not applicable; Y99.9 Unspecified external cause status; I11.0 Hypertensive heart disease with heart failure; I50.42 Chronic combined systolic (congestive) and diastolic (congestive) heart failure; I27.21 Secondary pulmonary arterial hypertension; I25.10 Atherosclerotic heart disease of native coronary artery without angina pectoris; I34.0 Nonrheumatic mitral (valve) insufficiency; I35.1 Nonrheumatic aortic (valve) insufficiency; I37.1 Nonrheumatic pulmonary valve insufficiency; I48.0 Paroxysmal atrial fibrillation; Z79.01 Long term (current) use of anticoagulants; Z79.02 Long term (current) use of antithrombotics/antiplatelets; Z79.899 Other long term (current) drug therapy; Z95.1 Presence of aortocoronary bypass graft; Z95.5 Presence of coronary angioplasty implant and graft; Z96.653 Presence of artificial knee joint, bilateral
CPT/HCPCS: 70450; 71250; 73564; 99282

== ENCOUNTER 2020-03-13 09:48 | Inpatient (IN) | payer MEDICARE, SELFPAY ==
[2020-03-05 09:13] VITALS: BMI 39.0
[2020-03-13] VITALS (11 sets, daily range): BP systolic 122–147; BP diastolic 50–86; PULSE 65–107; RESP 16–24; TEMP 36–37.6; O2SAT 92–97; BMI 34.7; BMI 35.2
--- NOTE | 2020-03-13 10:05 | RAD_ITS ---
STUDY: X-RAY CHEST REASON FOR EXAM: Female, 85 years old. General illness 5 days TECHNIQUE: Single AP portable view of the chest. COMPARISON: Comparison is made with prior study dated 01/04/2018. FINDINGS: EKG electrodes are seen. Stable mild increased interstitial markings in both lung bases suggestive of scarring. This is more prominent at the left lung base. There is no demonstrated pleural abnormality. Sternal cerclage wires and vascular clips are present from a prior sternotomy and coronary artery bypass graft procedure (CABG). Myocardium likely. Normal mediastinum and seun. Normal visualized pulmonary arteries. Normal visualized aortic arch and descending thoracic aorta. There are diffuse degenerative changes of the visualized thoracic spine. Normal visualized ribs, clavicles, and shoulders. There is no demonstrated abnormality of the visualized soft tissue structures of the upper abdomen. RAD/Chest 1 View (Portable) IMPRESSION: Stable examination. Stable linear scarring at the lung bases. Electronically Signed: Manish Zapata MD at 11:10 EST , Service support ,
--- NOTE | 2020-03-13 10:05 | EKG12_ITS ---
Test Reason : Blood Pressure : / mmHG Vent. Rate : 098 BPM Atrial Rate : 063 BPM P-R Int : 000 ms QRS Dur : 124 ms QT Int : 396 ms P-R-T Axes : 000 -41 094 degrees QTc Int : 505 ms Atrial fibrillation Left axis deviation Possible Anterior infarct , age undetermined Abnormal ECG Confirmed by JOSE ALBERTO JIMENEZ, SHARIF ([id number]), editor at large SABRINA FLORES ([id number]) on 03/17/2020 10:50:58 AM Referred By: YANDY Confirmed By:RICARDO ABRAMS MD
--- NOTE | 2020-03-13 10:07 | ED.VISSUMM ---
- ER Visit Summary Date of Service: 03/13/20 Chief Complaint: Cough and fatigue History of Present Illness: The patient is a 85 F who presents for cough and fatigue. Symptoms started gradually over the past 4 days. Her has Covid. She has a history of heart disease, A. fib, valve replacement. She is on Eliquis and has been compliant. She denies lung disease. Physical Examination: Afebrile. Vital signs unremarkable except for heart rate of 107. Patient appears in no acute distress, sitting, moving, speaking comfortably. Heart regular. Lungs clear. Skin unremarkable. Test Results: EKG, chest x-ray, labs pending. Emergency Department Course and Treatment: Patient was treated with fluids as she is not eating or drinking as much as usual. Results pending. Covid test is positive. Hemoglobin is stable 10.4. Kidney function stable, BUN 31, creatinine 1.66. Troponin indeterminate, 0.089, and she had elevations like this before. EKG showed A. fib at a rate of 98. Chest x-ray reviewed by me and the radiologist showed nothing acute, positive for chronic changes only. Given the patient's advanced age, history of heart disease, chronic kidney disease, elevated troponin, and symptoms I am recommending hospitalization. Will contact the hospitalist. Treatment Plan: As above Disposition: Admission Impression: COVID-19, chronic kidney disease, chronic heart disease, elevated troponin This note was generated with [employer] dictation software. It may contain incorrect words, spelling, and punctuation that were not noted in review of the chart prior to signing ED Disposition - Plan for ED Patient: Referrals: Matteo West III, MD [Primary Care Provider] -
[2020-03-13] MEDS: 0.9% Normal Saline 1,000 ML 1000 ML IV (10:33)
[2020-03-13 10:40] LABS: Absolute Lymphocyte Count 0.53 X10^3/uL (0.83-4.51); Absolute Neutrophil Count 3.9 X10^3/uL (2.0-7.7); Basophil# 0.03 X10^3/uL; Basophil% 0.6 % (0-1); Hematocrit 32.5 % (37-47); Hemoglobin 10.4 g/dL (12.0-15.0); Lymphocyte # 0.53 X10^3/ul (4.0); Lymphocyte % 10.3 % (19-41); Mean Corpuscular Hgb 30.7 pg (27.0-32.0); Mean Corpuscular Volume 95.9 fL (81-99); Mean Platelet Vol. 11.1 fl (6.2-12.0); Monocyte# 0.71 X10^3/uL; Monocyte% 13.8 % (0-10); NRBC Flagged by Analyzer 0 % (0-5); Neutrophil # 3.86 X10^3/uL (2.7-7.7); Neutrophil % 74.7 % (47-70); POSITIVE DIFFERENTIAL YES; Platelet Count 193 K/mm3 (150-450); RBC Distribution Width CV 13.5 % (11.6-14.6); RBC Distribution Width SD 47.4 fl (35.1-43.9); Red Blood Count 3.39 M/mm3 (4.2-5.4); White Blood Count 5.2 K/mm3 (4.4-11.0)
[2020-03-13 10:41] LABS: Differential Indicated SCAN CRITERIA MET
[2020-03-13 10:57] LABS: ALB/GLOB Ratio 0.8 RATIO (0.9-2.4); AST(SGOT) 26 U/L (15-37); Alanine Aminotransfer ALT/SGPT 16 U/L (13-56); Albumin, Serum 3.4 g/dL (3.2-5.0); Alkaline Phosphatase 109 U/L (45-117); Anion Gap 9 (5-15); BUN 31 mg/dL (7-18); BUN/Creat Ratio 18.7 RATIO (10-20); Calcium,Total 8.4 mg/dL (8.5-10.1); Chloride 105 mmol/L (98-107); Creatinine, Serum 1.66 mg/dL (0.55-1.02); EST Glomerular Filtration Rate 31 mL/min (>60); Est Glom Filt Rate - Afr Amer 38 mL/min (>60); Estimated Creatinine Clearance 18.44 ml/min; Globulin 4.1 g/dL (2.2-4.2); Glucose 104 mg/dL (74-106); Potassium 3.6 mmol/L (3.5-5.1); Protein, Total 7.5 g/dL (6.4-8.2); Sodium Level 139 mmol/L (136-145)
--- NOTE | 2020-03-13 12:00 | ED.RN ---
PHARMACY CONTACTED TO FAX MEDICATION LIST
--- NOTE | 2020-03-13 12:06 | HP.PCM_ITS ---
History of Present Illness Date of Admission: 03/13/20 Chief Complaint: General weakness, cough The patient is a 85 year old F with an extensive past medical history as outlined was admitted through the ED on 03/13/2020 with a complaint of generalized weakness and cough for about 4 days prior to admission. His is currently admitted with Covid. She says she had gradually been getting weak at home. She denied any chest pain or palpitations, dizziness and only complained of a mild shortness of breath. Review of systems otherwise negative. She decided to come to the ED as she was concerned she may have Covid. At time of review, temperature was 99.4 Fahrenheit with blood pressure 145/52, pulse rate of 93 and respiratory of 18. She was saturating at 95% on room air. Chemistry showed creatinine of 1.66 and sodium of 139 with potassium of 3.6. Initial troponin was 0.089. CBC showed hemoglobin of 10.4 with WBC of 5.2 and platelets of 193. EEG shows stable linear scarring at the lung bases but no evidence of acute cardiopulmonary pathology. Covid test done was positive. She has been admitted to be managed for debility due to acute Covid infection. [] Past Medical History Past Medical History (Chronic Problems): Chronic Problems (Last Reviewed 03/05/20 @ 10:00 by Montserrat MOELLER, PA) Essential hypertension (Chronic) History of coronary artery stent placement (Chronic 2014) PCI-KOHI-LAD 2014 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) Nonrheumatic aortic valve insufficiency (Chronic) Nonrheumatic mitral (valve) insufficiency (Chronic) Secondary pulmonary arterial hypertension (Chronic) Paroxysmal atrial fibrillation (Chronic) Takotsubo cardiomyopathy (Chronic) Atherosclerosis of coronary artery of [place] heart without angina pectoris (Chronic) CABG x 2 VALERIO-LAD, 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/2015 History of aortic valve replacement with bioprosthetic valve (Chronic 01/2016) Medical History: Medical History (Last Reviewed 03/05/20 @ 10:00 by Montserrat MOELLER, PA) Essential hypertension (Chronic) I10 Chronic combined systolic and diastolic CHF (congestive heart failure) (Chronic) I50.42 Nonrheumatic pulmonary valve insufficiency (Chronic) I37.1 Nonrheumatic aortic valve insufficiency (Chronic) I35.1 Nonrheumatic mitral (valve) insufficiency (Chronic) I34.0 Secondary pulmonary arterial hypertension (Chronic) I27.21 Paroxysmal atrial fibrillation (Chronic) I48.0 Takotsubo cardiomyopathy (Chronic) I51.81 Atherosclerosis of coronary artery of [place] heart without angina pectoris (Chronic) I25.10 CABG x 2 VALERIO-LAD, 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/2015 Acquired hypothyroidism E03.9 Anemia D64.9 Anxiety and depression F41.9, F32.9 Chronic kidney disease, stage 3 N18.3 Esophagitis K20.9 Insomnia G47.00 Obesity (BMI 30-39.9) E66.9 PUD (peptic ulcer disease) K27.9 Acute kidney injury N17.9 Allergies atorvastatin [From Lipitor] Adverse Reaction (Verified 03/05/20 09:08) Pain in joints niacin Adverse Reaction (Verified 03/05/20 09:08) Pain in joints pregabalin [From Lyrica] Adverse Reaction (Verified 03/05/20 09:08) Other simvastatin [From Zocor] Adverse Reaction (Verified 03/05/20 09:08) Pain in joints Home Medications: Ambulatory Orders Medication Instructions Recorded Nitroglycerin (INPATIENT USE) 0.4 mg SUBLINGUAL Q5M PRN 02/24/16 [Nitrostat] levothyroxine 125 mcg tablet 125 mcg PO DAILY #30 tab 11/14/18 metoprolol tartrate 25 mg tablet 12.5 mg PO BID tab 12/31/19 hydrocodone 5 mg-acetaminophen 300 1 tab PO Q6H PRN 02/29/20 mg tablet amiodarone 200 mg tablet 100 mg PO DAILY tab 03/05/20 amlodipine 2.5 mg tablet 2.5 mg PO BID tab 03/05/20 Apixaban [Eliquis] 2.5 mg PO BID 03/13/20 Clopidogrel Bisulfate [Clopidogrel] 75 mg PO DINNER 03/13/20 Furosemide 40 mg PO BID 03/13/20 Lisinopril [Prinivil] 10 mg PO DAILY 03/13/20 Omeprazole 20 mg PO DAILY 03/13/20 Surgical History: Surgical History (Last Reviewed 03/05/20 @ 10:00 by Montserrat MOELLER, PA) History of coronary artery stent placement (Chronic) Onset Date: 2014 Z95.5 PCI-KHOI-LAD 2014 H/O coronary artery bypass surgery (Resolved) Onset Date: 01/2016 Z95.1 CABG x 2 VALERIO-LAD, 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/2015 History of aortic valve replacement with bioprosthetic valve (Chronic) Onset Date: 01/2016 Z95.3 History of cardioversion Onset Date: 12/24/19 Z98.890 Surgical History: coronary bypass surgery Psychiatric History: No pertinent psych hx Lives: Spouse/ Significant Other Smoking Status: Never smoker Alcohol: None Drugs: None - *Family History Maternal Family History: Family History (Last Reviewed 03/05/20 @ 10:00 by Montserrat MOELLER, PA) Mother Diabetes Heart disease Other CAD (coronary artery disease) History Items: Diabetes, Heart Disease Review of Systems Constitutional: Reports: Chills, Fever, Malaise, Weakness, Fatigue. Denies: Anorexia, Night Sweats Eyes: Denies: Blurred vision HEENT: Denies: Head Aches, Sinus Congestion, Sinus Drainage Cardiovascular: Denies: Chest Pain, Palpitations Respiratory: Reports: Cough, Shortness of Breath. Denies: Shortness of breath at rest, Shortness of breath upon exertion, Sputum production, Wheezing Gastrointestinal: Reports: Diarrhea. Denies: Abdominal Pain, Nausea, Vomiting Genitourinary: Reports: Incontinence. Denies: Dysuria Musculoskeletal: Denies: Joint Pain, Joint Tenderness Skin: Denies: Rash, Wounds Neurological: Denies: Numbness, Tingling, Focal weakness Psychiatric: Denies: Anxiety, Depression, Homicidal Ideations, Suicidal Ideations Hematologic/ Lymphatic: Denies: Easy Bruising, Easy Bleeding VTE Information - Inpt Only VTE Present on Admission: No VTE Pharm Prophylaxis ordered?: Yes - Physical Exam Vitals/I&O's: Vital Signs Temp Pulse Resp BP Pulse Ox 96.8 F L 93 24 H 122/86 H 95 03/13/20 10:25 03/13/20 10:25 03/13/20 10:25 03/13/20 10:25 03/13/20 10:25 Oxygen Delivery Method Room Air Weight: 178 lb Body Mass Index (BMI) 34.7 General: Alert, Oriented x3, Cooperative, No apparent distress HEENT: Atraumatic, PERRLA, EOMI, Normocephalic Oral: Dry Mucosa Neck: Supple, No JVD, Negative Carotid Bruits Lungs: Clear to auscultation, Normal air movement, No rhonchi, No wheeze, No rales Cardiovascular: Regular rate, Regular Rhythm, Normal S1, Normal S2, No murmurs Abdomen: Bowel Sounds Present, Soft, Non Tender Extremities: No clubbing, No cyanosis, No edema, Capillary Refill Less than 3 Seconds Skin: No rashes, No breakdown Musculoskeletal: No Tenderness to Palpation of Joints or Extremities Lymphatic: No Cervical, Supraclavicular, or Inguinal Adenopathy Neurological: Cranial nerves II-XII grossly intact, Neuro grossly intact, Motor Exam 5/5 strength throughout Psych/Mental Status: Normal Affect, Appropriate, Alert and oriented to time, place, person, mood and affect Microbiology Past 72 Hours 03/13/20 10:25 Mucosa - Nose SARS-CoV-2 Antigen (Rapid) - Final SARS-CoV-2 (COVID 19) Laboratory Results 03/13/20 10:15: WBC 5.2, RBC 3.39 L, Hgb 10.4 L, Hct 32.5 L, MCV 95.9, MCH 30.7, MCHC 32.0, RDW Std Deviation 47.4 H, RDW Coeff of Leatha 13.5, Plt Count 193, MPV 11.1, Immature Gran % (Auto) 0.600, Neut % (Auto) 74.7 H, Lymph % (Auto) 10.3 L, [place] % (Auto) 13.8 H, Eos % (Auto) 0.0, Baso % (Auto) 0.6, Absolute Neuts (auto) 3.9, Absolute Lymphs (auto) 0.53 L, Nucleated RBC % 0, Differential Comment COMMENT 03/13/20 10:15: Sodium 139, Potassium 3.6, Chloride 105, Carbon Dioxide 25.0, Anion Gap 9, BUN 31 H, Creatinine 1.66 H, Estim Creat Clear Calc 18.44, Est GFR (MDRD) Af Amer 38 L, Est GFR (MDRD) Non-Af 31 L, BUN/Creatinine Ratio 18.7, Glucose 104, Calcium 8.4 L, Total Bilirubin 0.70, AST 26, ALT 16, Alkaline Phosphatase 109, Troponin I 0.089 H, Total Protein 7.5, Albumin 3.4, Globulin 4.1, Albumin/Globulin Ratio 0.8 L 03/13/20 10:15: D-Dimer Quant (PE/DVT) Pending 03/13/20 10:15: C-React Prot Ext Range Pending Diagnostic Data Chest X-Ray 03/13/20 10:05 IMPRESSION: Stable examination. Stable linear scarring at the lung bases. Electronically Signed: Manish Zapata MD at 11:10 EST , Service support , Assessment/Plan All Active Problems (Last Reviewed 03/05/20 @ 10:00 by Montserrat MOELLER, PA) H/O coronary artery bypass surgery (Resolved 01/2016) Atypical chest pain (Resolved) 85 y/o admitted with a complaint of weakness and cough and found to have covid 19 infection #COVID 19 infection * admit to covid unit. * hydrate gently with IVF * start on PO decadrone. * start on IV remdesivir * consult ID * * #Debility due to COVID 19 infection * consult PT/OT * fall precautions * #Elevated D dimer * D-dimer was elevated at 1.88. * patient already on eliquis for afib. D dimer likely elevated due to COVID * due to her history fo CKD, with her Cr being 1.66, i am hesitant to give cont rast as her baseline creatinine usually runs around 1.7-2.2. * Will do duplex of her lower extremities and she is complaining of some tenderness in her calves. Continue current dose of Eliquis. * #Indeterminate troponin: Initial troponin was 0.089. She has no cardiac symptoms. Will check EKG. Cycle troponins. #Hypertension: On amlodipine and lisinopril. Also on metoprolol #history of A. fib: Currently rate controlled. On amiodarone and metoprolol. Also on Eliquis. #CAD: On plavix, metoprolol and lisinopril #Hypothyroidism: On Synthroid VT prophylaxis: On Eliquis CODE STATUS: Full code * Patient counseled extensively about different types of CODE STATUS including full code, DNR CCA and DNR CCA. Patient elects to be full code. Total [id number] time 17 minutes. Inpatient E&M: 98519 Init Hosp L3 Procedures: 82970 Advncd Care Plan 30 Min
[2020-03-13 12:33] LABS: D-Dimer Quantitative (DVT/PE) 1.88 FEU/ug/m (0.27-0.49)
--- NOTE | 2020-03-13 13:18 | VDLE_ITS ---
Reason For Study: elevated D-Dimer, Covid RIGHT LEFT CFV, FV, POP V, T/P Trunk, PTV, Peroneal V, CFV, FV, POP V, T/P Trunk, PTV, Peroneal V, and GSV are compressible. and GSV are compressible. Procedure This is a venous duplex using B-mode, color flow and spectral Doppler. Exam performed portable in patient room. The exam was abbreviated due to the COVID 19 protocol. The exam was diagnostic. A preliminary report was called and/or faxed to [facility] staff toxicologist. Interpretation Summary No evidence for acute deep venous thrombosis bilateral lower extremities with patent and compressible bilateral great saphenous veins. COVID-19 protocol utilized Ordering Physician: Valeri Mcrae Performed By: William Palma RVT
[2020-03-13 13:46] LABS: CPK Total, Creatine Kinase 104 U/L (26-192)
[2020-03-13 13:55] LABS: Procalcitonin 0.08 ng/mL (0.00-0.09)
[2020-03-13] MEDS: 0.9% Normal Saline 1,000 ML 120 ML IV (14:10)
[2020-03-13 14:22] LABS: Bacteria 0 SEEN /hpf (None Seen); Mucous, Urine 0 SEEN /hpf (<or=2+); Red Blood Cells-Urine 0 SEEN /hpf (0-5); Squamous Epithelial Cells - UA 0 SEEN /hpf (5-10); White Blood Cells 0 SEEN /hpf (0-5)
[2020-03-13 14:24] LABS: Color, Urine Yellow (Yellow); Glucose, Dipstick Normal (Normal); Ketone-Dipstick 5 mg/dl (Negative); Leukocyte Esterase-Dipstick Negative /ul (Negative); Nitrite-Dipstick Negative (Negative); Occult Blood-Urine 25 /ul (Negative); Protein-Dipstick 30 mg/dl (Negative); Urine Bilirubin Dipstick Negative (Negative); Urine Clarity Sl. Cloudy (Clear); Urine Urobilinogen Normal (Normal)
[2020-03-13 14:40] LABS: Alkaline Phosphatase 102 U/L (45-117)
[2020-03-13] MEDS: Metoprolol Tartrate 25 MG Tablet 12.5 MG PO ×2 (15:27→21:12)
[2020-03-13] MEDS: Amiodarone 200 MG Tablet 100 MG PO (15:27)
[2020-03-13] MEDS: HYDROcodone Bitartrate/Apap 5/325 Tablet PO (16:26)
[2020-03-13] MEDS: Clopidogrel Bisulfate 75 MG Tablet PO (16:26)
[2020-03-13] MEDS: amLODIPine 2.5 MG Tablet PO (21:10)
[2020-03-13] MEDS: APIXABAN 2.5 MG TABLET PO (21:11)
[2020-03-13] MEDS: Furosemide 40 MG Tablet PO (21:11)
[2020-03-14] VITALS (13 sets, daily range): BP systolic 125–143; BP diastolic 67–79; PULSE 70–118; RESP 16–20; TEMP 36.2–37.8; O2SAT 90–95
[2020-03-14] MEDS: 0.9% Normal Saline 1,000 ML 120 ML IV (00:32)
[2020-03-14 07:15] LABS: Absolute Lymphocyte Count 0.59 X10^3/uL (0.83-4.51); Basophil# 0.02 X10^3/uL; Basophil% 0.4 % (0-1); Hematocrit 33.6 % (37-47); Hemoglobin 10.2 g/dL (12.0-15.0); Lymphocyte # 0.59 X10^3/ul (4.0); Lymphocyte % 11.4 % (19-41); Mean Corp Hgb Conc 30.4 g/dL (32-36); Mean Corpuscular Hgb 29.5 pg (27.0-32.0); Mean Corpuscular Volume 97.1 fL (81-99); Mean Platelet Vol. 11.6 fl (6.2-12.0); Monocyte# 0.57 X10^3/uL; NRBC Flagged by Analyzer 0 % (0-5); Neutrophil # 3.99 X10^3/uL (2.7-7.7); Neutrophil % 76.8 % (47-70); POSITIVE DIFFERENTIAL YES; Platelet Count 183 K/mm3 (150-450); RBC Distribution Width CV 13.6 % (11.6-14.6); RBC Distribution Width SD 48.9 fl (35.1-43.9); Red Blood Count 3.46 M/mm3 (4.2-5.4); White Blood Count 5.2 K/mm3 (4.4-11.0)
[2020-03-14 07:16] LABS: Differential Indicated SCAN CRITERIA MET
--- NOTE | 2020-03-14 07:46 | PCM.PN.HOSP ---
Patient Problems: Active and Suspected Problems (Last Reviewed 03/05/20 @ 10:00 by Montserrat Villa PA, PA) COVID-19 (Acute) Subjective: Patient seen and examined. She is feeling better and has no complaints this morning. Her BNP came back markedly elevated at 1206. BNP also trended up slightly to a peak of 0.109. She is mildly febrile today with temperature 100.1 but is otherwise hemodynamically stable. Vitals/I&O's: Vital Signs Temp Pulse Resp BP Pulse Ox 100.1 F H 86 20 H 140/79 H 92 03/14/20 03:05 03/14/20 03:38 03/14/20 03:05 03/14/20 03:05 03/14/20 03:05 Oxygen Flow Rate (L/min) 3 Oxygen Delivery Method Nasal Cannula Weight: 180 lb 3.188 oz Body Mass Index (BMI) 35.2 Intake and Output for Last 24 Hours 03/12/20 03/13/20 03/14/20 23:59 23:59 23:59 Intake Total 1508 / 1748 2130 / 2130 Output Total 100 / 100 300 / 300 Balance 1408 / 1648 1830 / 1830 General: Alert, Oriented x3, Cooperative, No apparent distress HEENT: Atraumatic, PERRLA, EOMI, Normocephalic Oral: Dry Mucosa Neck: Supple, No JVD, Negative Carotid Bruits Lungs: Clear to auscultation, Normal air movement, No rhonchi, No wheeze, No rales; on 3L of oxygen Cardiovascular: Regular rate, Regular Rhythm, Normal S1, Normal S2, No murmurs Abdomen: Bowel Sounds Present, Soft, Non Tender Extremities: No clubbing, No cyanosis, No edema, Capillary Refill Less than 3 Seconds Skin: No rashes, No breakdown Musculoskeletal: No Tenderness to Palpation of Joints or Extremities Lymphatic: No Cervical, Supraclavicular, or Inguinal Adenopathy Neurological: Cranial nerves II-XII grossly intact, Neuro grossly intact, Motor Exam 5/5 strength throughout Psych/Mental Status: Normal Affect, Appropriate, Alert and oriented to time, place, person, mood and affect Microbiology Past 72 Hours 03/13/20 10:25 Mucosa - Nose SARS-CoV-2 Antigen (Rapid) - Final SARS-CoV-2 (COVID 19) Laboratory Results 03/13/20 10:15: WBC 5.2, RBC 3.39 L, Hgb 10.4 L, Hct 32.5 L, MCV 95.9, MCH 30.7, MCHC 32.0, RDW Std Deviation 47.4 H, RDW Coeff of Leatha 13.5, Plt Count 193, MPV 11.1, Immature Gran % (Auto) 0.600, Neut % (Auto) 74.7 H, Lymph % (Auto) 10.3 L, [place] % (Auto) 13.8 H, Eos % (Auto) 0.0, Baso % (Auto) 0.6, Absolute Neuts (auto) 3.9, Absolute Lymphs (auto) 0.53 L, Nucleated RBC % 0, Differential Comment COMMENT 03/13/20 10:15: Sodium 139, Potassium 3.6, Chloride 105, Carbon Dioxide 25.0, Anion Gap 9, BUN 31 H, Creatinine 1.66 H, Estim Creat Clear Calc 18.44, Est GFR (MDRD) Af Amer 38 L, Est GFR (MDRD) Non-Af 31 L, BUN/Creatinine Ratio 18.7, Glucose 104, Calcium 8.4 L, Total Bilirubin 0.70, AST 26, ALT 16, Alkaline Phosphatase 109, Troponin I 0.089 H, Total Protein 7.5, Albumin 3.4, Globulin 4.1, Albumin/Globulin Ratio 0.8 L 03/13/20 10:15: D-Dimer Quant (PE/DVT) 1.88 H* 03/13/20 10:15: C-React Prot Ext Range 53.60 H 03/13/20 10:15: Total Creatine Kinase 104 03/13/20 10:15: B-Natriuretic Peptide 1206.2 H 03/13/20 10:15: Procalcitonin 0.08 03/13/20 14:00: Urine Color Yellow, Urine Clarity Sl. Cloudy, Urine pH 7.0, Ur Specific Atkins 1.010, Urine Protein 30 H, Urine Glucose (UA) Normal, Urine Ketones 5 H, Urine Occult Blood 25 H, Urine Nitrite Negative, Urine Bilirubin Negative, Urine Urobilinogen Normal, Ur Leukocyte Esterase Negative, Urine RBC 0 SEEN, Urine WBC 0 SEEN, Ur Squamous Epith Cells 0 SEEN, Urine Bacteria 0 SEEN, Urine Mucus 0 SEEN 03/13/20 14:07: Alkaline Phosphatase 102, Troponin I 0.106 H 03/13/20 16:25: Troponin I 0.083 H 03/13/20 19:57: Troponin I 0.109 H 03/14/20 06:15: WBC 5.2, RBC 3.46 L, Hgb 10.2 L, Hct 33.6 L, MCV 97.1, MCH 29.5, MCHC 30.4 L, RDW Std Deviation 48.9 H, RDW Coeff of Leatha 13.6, Plt Count 183, MPV 11.6, Immature Gran % (Auto) 0.400, Neut % (Auto) 76.8 H, Lymph % (Auto) 11.4 L, [place] % (Auto) 11.0 H, Eos % (Auto) 0.0, Baso % (Auto) 0.4, Absolute Neuts (auto) 4.0, Absolute Lymphs (auto) 0.59 L, Nucleated RBC % 0 03/14/20 06:15: Sodium Pending, Potassium Pending, Chloride Pending, Carbon Dioxide Pending, Anion Gap Pending, BUN Pending, Creatinine Pending, Est GFR (MDRD) Af Amer Pending, Est GFR (MDRD) Non-Af Pending, BUN/Creatinine Ratio Pending, Glucose Pending, Calcium Pending, Total Bilirubin Pending, AST Pending, ALT Pending, Alkaline Phosphatase Pending, Total Protein Pending, Albumin Pending Diagnostic Data Chest X-Ray 03/13/20 10:05 IMPRESSION: Stable examination. Stable linear scarring at the lung bases. Electronically Signed: Manish Zapata MD at 11:10 EST , Service support , Current Medications Acetaminophen (Acetaminophen 325 Mg Tablet) 650 mg PO Q6H PRN PRN PRN Reason: Pain Score 1-10/Temp > 100.7 F Hydrocodone Bitart/Acetaminophen (Hydrocodone Bitartrate/Apap 5/325 Tablet) 1 tablet PO Q6H PRN PRN Reason: PAIN 1-10/FEVER Last Admin: 03/13/20 16:26 Dose: 1 tablet Documented by: Amiodarone HCl (Amiodarone 200 Mg Tablet) 100 mg PO DAILY [facility] Last Admin: 03/13/20 15:27 Dose: 100 mg Documented by: Amlodipine Besylate (Amlodipine 2.5 Mg Tablet) 2.5 mg PO BID [facility] Last Admin: 03/13/20 21:10 Dose: 2.5 mg Documented by: Apixaban (Apixaban 2.5 Mg Tablet) 2.5 mg PO BID [facility] Last Admin: 03/13/20 21:11 Dose: 2.5 mg Documented by: Clopidogrel Bisulfate (Clopidogrel Bisulfate 75 Mg Tablet) 75 mg PO DINNER [facility] Last Admin: 03/13/20 16:26 Dose: 75 mg Documented by: Dexamethasone (Dexamethasone 2 Mg Tablet) 6 mg PO DAILY [facility] Furosemide (Furosemide 40 Mg/4 Ml Vial) 40 mg IV BID@1000,1700 [facility] Sodium Chloride () 250 mls @ 15 mls/hr IV .[id number] PRN PRN Reason: Saline Flush Sodium Chloride () 250 mls @ 15 mls/hr IV .[id number] PRN PRN Reason: Additional IVPB Infusion Levothyroxine Sodium (Levothyroxine 125 Mcg Tablet) 125 mcg PO DAILY [facility] Lisinopril (Lisinopril 10 Mg Tablet) 10 mg PO DAILY [facility] Metoprolol Tartrate (Metoprolol Tartrate 25 Mg Tablet) 12.5 mg PO BID [facility] Last Admin: 03/13/20 21:12 Dose: 12.5 mg Documented by: Nitroglycerin (Nitroglycerin (Inpatient Use) 0.4 Mg Tab.Subl) 0.4 mg SUBLINGUAL Q5M PRN PRN Reason: CHEST Ondansetron HCl (Ondansetron 4 Mg/2 Ml Vial) 4 mg IV Q8H PRN PRN PRN Reason: NAUSEA/VOMITING Pantoprazole Sodium (Pantoprazole Sodium 20 Mg Tablet) 20 mg PO DAILY [facility] Sodium Chloride (0.9% Saline Lock 10 Ml Syringe) 10 - 40 ml IV UD PRN PRN Reason: SALINE FLUSH Medical Necessity - Tobacco Use Smoking Status: Never smoker Assessment/Plan All Active Problems (Last Reviewed 03/05/20 @ 10:00 by Montserrat Villa PA, PA) COVID-19 (Acute) H/O coronary artery bypass surgery (Resolved 01/2016) Atypical chest pain (Resolved) 85 y/o admitted with a complaint of weakness and cough and found to have covid 19 infection #COVID 19 infection BNP was also markedly elevated. on 3L of oxygen now. on remdesivir and decadrone titrate oxygen to maintain sats >90% give zinc ID consulted; await rec's # Elevated D Dimer CT of the chest could not be done on account of her elevated creatinine. Duplex of her lower extremities was negative for DVT Elevation in D-dimer likely due to Covid. We will continue Eliquis 2.5 mg twice daily. #Acute exacerbation of heart failure with reduced EF BNP was elevated at 02/15/2005. Stop IV fluids. Diuresed with IV Lasix 40 mg twice daily. Hold p.o. Lasix. Monitor intake and output. Fluid restriction 1500 cc daily. patient noted to have a few beat run of vtach. She is on amiodarone and carvedilol. Discussed with her veterinary technician assistant Dr Mason, who reviewed her telemetry strips. Plan is to hold off on echo for now, and continue amiodarone and carvedilol. #Indeterminate troponins troponin trended up slightly to a peak of 0.109. She has no chest pain Likely due to covid and heart failure. discussed with her primary veterinary technician assistant; plan is to continue monitoring for now as it could be due to covid. #Debility due to COVID 19 infection consult PT/OT fall precautions #Hypertension: On amlodipine and lisinopril. Also on metoprolol #history of A. fib: Currently rate controlled. On amiodarone and metoprolol. Also on Eliquis. #CAD: On plavix, metoprolol and lisinopril #Hypothyroidism: On Synthroid VT prophylaxis: On Eliquis CODE STATUS: Full code Inpatient E&M: 77504 Subs Hosp L3
[2020-03-14 07:58] LABS: ALB/GLOB Ratio 0.8 RATIO (0.9-2.4); AST(SGOT) 31 U/L (15-37); Alanine Aminotransfer ALT/SGPT 17 U/L (13-56); Albumin, Serum 3.2 g/dL (3.2-5.0); Alkaline Phosphatase 97 U/L (45-117); Anion Gap 9 (5-15); BUN 30 mg/dL (7-18); BUN/Creat Ratio 23.3 RATIO (10-20); Calcium,Total 8.5 mg/dL (8.5-10.1); Chloride 108 mmol/L (98-107); Creatinine, Serum 1.29 mg/dL (0.55-1.02); EST Glomerular Filtration Rate 42 mL/min (>60); Est Glom Filt Rate - Afr Amer 51 mL/min (>60); Estimated Creatinine Clearance 23.73 ml/min; Globulin 3.9 g/dL (2.2-4.2); Glucose 94 mg/dL (74-106); Potassium 3.6 mmol/L (3.5-5.1); Protein, Total 7.1 g/dL (6.4-8.2); Sodium Level 141 mmol/L (136-145)
[2020-03-14] MEDS: Metoprolol Tartrate 25 MG Tablet 12.5 MG PO ×2 (09:01→22:31)
[2020-03-14] MEDS: Pantoprazole Sodium 20 MG Tablet PO (09:01)
[2020-03-14] MEDS: Levothyroxine 125 MCG Tablet PO (09:01)
[2020-03-14] MEDS: Lisinopril 10 MG Tablet PO (09:02)
[2020-03-14] MEDS: amLODIPine 2.5 MG Tablet PO ×2 (09:02→22:32)
[2020-03-14] MEDS: dexAMETHasone 2 MG TABLET 6 MG PO (09:02)
[2020-03-14] MEDS: Amiodarone 200 MG Tablet 100 MG PO (10:36)
[2020-03-14] MEDS: APIXABAN 2.5 MG TABLET PO ×2 (10:36→22:32)
[2020-03-14] MEDS: Furosemide 40 MG/4 ML Vial IV ×2 (10:36→17:33)
--- NOTE | 2020-03-14 12:27 | CASEMGMT ---
RN REINALDO Assessment Note Introduced role of CM to patient via phone. RN REINALDO had spoken with pt re: her yesterday. She is very concerned for his health and is waiting for nurse to come in and speak with her. 03/13/20- Rapid test positive @ [facility] Presentation: shortness of breath Diagnosis: suspected COVID 19 PCP: Dr. Matteo West III Insurance: [employer] Preferred Pharmacy: [facility] Pres[facility] Benefit: yes LNOK: and son Living Arrangements: Lives independently with her @ home. States no care needs prior to admission. Tranportation: or son drives DME: rollator. denies oxygen/cpap use. [facility] for home oxygen if needed. HHC: no SNF: no Patient DC Goals: Home on discharge DC Plan: anticipate home. Will follow PT/OT recommendations if HHC is needed. If oxygen is needed, agreeable to [facility]. CM available for discharge planning coordination. Contact CM for any concerns/needs that may arise. Juanita SCOTTN RN ACM
--- NOTE | 2020-03-14 16:05 | CON.PCM_ITS ---
Problem List (1) COVID-19 Status: Acute Reason for Consult: taylor Consulted by: Dr. Mcrae History of Present Illness: The patient is a 85 year old F presented 03/13 to the ED with sx for 4 days, c/o fever, cough, aches, mild diarrhea, fatigue. was sick before her. In ED, covid (+), admitted on dex, remdesivir. Feeling much better today. Full ROS performed and neg except as noted above. 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) Nonrheumatic aortic valve insufficiency (Chronic) Nonrheumatic mitral (valve) insufficiency (Chronic) Secondary pulmonary arterial hypertension (Chronic) Paroxysmal atrial fibrillation (Chronic) Takotsubo cardiomyopathy (Chronic) Atherosclerosis of coronary artery of [place] heart without angina pectoris (Chronic) CABG x 2 VALERIO-LAD, 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/2015 History of aortic valve replacement with bioprosthetic valve (Chronic 01/2016) Allergies/Adverse Reactions: Allergies atorvastatin [From Lipitor] Adverse Reaction (Verified 03/05/20 09:08) Pain in joints niacin Adverse Reaction (Verified 03/05/20 09:08) Pain in joints pregabalin [From Lyrica] Adverse Reaction (Verified 03/05/20 09:08) Other simvastatin [From Zocor] Adverse Reaction (Verified 03/05/20 09:08) Pain in joints Home Medications: Ambulatory Orders Medication Instructions Recorded Nitroglycerin (INPATIENT USE) 0.4 mg SUBLINGUAL Q5M PRN 02/24/16 [Nitrostat] levothyroxine 125 mcg tablet 125 mcg PO DAILY #30 tab 11/14/18 metoprolol tartrate 25 mg tablet 12.5 mg PO BID tab 12/31/19 hydrocodone 5 mg-acetaminophen 300 1 tab PO Q6H PRN 02/29/20 mg tablet amiodarone 200 mg tablet 100 mg PO DAILY tab 03/05/20 amlodipine 2.5 mg tablet 2.5 mg PO BID tab 03/05/20 Apixaban [Eliquis] 2.5 mg PO BID 03/13/20 Clopidogrel Bisulfate [Clopidogrel] 75 mg PO DINNER 03/13/20 Furosemide 40 mg PO BID 03/13/20 Lisinopril [Prinivil] 10 mg PO DAILY 03/13/20 Omeprazole 20 mg PO DAILY 03/13/20 - Social History Tobacco Use: non-smoker Vital Signs Temp Pulse Resp BP Pulse Ox 97.8 F 101 H 19 H 136/72 H 90 03/14/20 09:05 03/14/20 09:05 03/14/20 09:05 03/14/20 09:05 03/14/20 09:40 Oxygen Flow Rate (L/min) 3 Oxygen Delivery Method Room Air Weight: 81.737 kg Body Mass Index (BMI) 35.2 Microbiology Past 72 Hours 03/13/20 10:25 SARS-CoV-2 Antigen (Rapid) - Final Mucosa - Nose SARS-CoV-2 (COVID 19) Laboratory Tests Past 24 Hrs 03/13/20 03/13/20 03/14/20 16:25 19:57 06:15 WBC 5.2 RBC 3.46 L Hgb 10.2 L Hct 33.6 L MCV 97.1 MCH 29.5 MCHC 30.4 L RDW Std Deviation 48.9 H RDW Coeff of Leatha 13.6 Plt Count 183 MPV 11.6 Immature Gran % (Auto) 0.400 Neut % (Auto) 76.8 H Lymph % (Auto) 11.4 L [place] % (Auto) 11.0 H Eos % (Auto) 0.0 Baso % (Auto) 0.4 Absolute Neuts (auto) 4.0 Absolute Lymphs (auto) 0.59 L Nucleated RBC % 0 Sodium Potassium Chloride Carbon Dioxide Anion Gap BUN Creatinine Estim Creat Clear Calc Est GFR (MDRD) Af Amer Est GFR (MDRD) Non-Af BUN/Creatinine Ratio Glucose Calcium Magnesium Total Bilirubin AST ALT Alkaline Phosphatase Troponin I 0.083 H 0.109 H Total Protein Albumin Globulin Albumin/Globulin Ratio 03/14/20 03/14/20 03/14/20 06:15 06:15 06:15 WBC RBC Hgb Hct MCV MCH MCHC RDW Std Deviation RDW Coeff of Leatha Plt Count MPV Immature Gran % (Auto) Neut % (Auto) Lymph % (Auto) [place] % (Auto) Eos % (Auto) Baso % (Auto) Absolute Neuts (auto) Absolute Lymphs (auto) Nucleated RBC % Sodium 141 Potassium 3.6 Chloride 108 H Carbon Dioxide 24.0 Anion Gap 9 BUN 30 H Creatinine 1.29 H Estim Creat Clear Calc 23.73 Est GFR (MDRD) Af Amer 51 L Est GFR (MDRD) Non-Af 42 L BUN/Creatinine Ratio 23.3 H Glucose 94 Calcium 8.5 Magnesium 2.0 Total Bilirubin 0.60 AST 31 ALT 17 Alkaline Phosphatase 97 Cancelled Troponin I Total Protein 7.1 Albumin 3.2 Globulin 3.9 Albumin/Globulin Ratio 0.8 L - Other Studies Radiology: [] reviewed Other Studies: [] Route of nutrition/ use of supplements: [] Nutritional Intake: [] IV Site: [] Hudson Catheter: [] - Physical Exam General: Alert, Oriented x3, Cooperative, No apparent distress HEENT: Atraumatic, PERRLA, EOMI Neck: Supple, No Nodes Lungs: Clear to auscultation, Diminished Cardiovascular: Regular rate, Regular Rhythm Abdomen: Soft, Non Tender, Non-Distended, Obese Extremities: No edema Skin: No rashes IV Site: Peripheral, without redness Musculoskeletal: No Tenderness to Palpation of Joints or Extremities Neurological: Cranial nerves II-XII grossly intact - Assessment/Plan Antibiotics: [] Assessment/Plan: [] covid with hypoxia - sx started 03/09. also admitted. On dex, remdesivir, much improved. D-dimer was 1.9, on eliquis. Quarantine for 20 days from 03/09, dex for 10 days. Will follow, thank you
[2020-03-14] MEDS: Clopidogrel Bisulfate 75 MG Tablet PO (17:33)
[2020-03-14] MEDS: HYDROcodone Bitartrate/Apap 5/325 Tablet PO (22:37)
[2020-03-15] VITALS (8 sets, daily range): BP systolic 107–111; BP diastolic 53–56; PULSE 56–100; RESP 18; TEMP 36.4–36.5; O2SAT 96–97
--- NOTE | 2020-03-15 00:36 | NURSING ---
PANDEMIC DOCUMENTATION INITIATED: date: 03/15/20 time: 003
[2020-03-15 06:38] LABS: Hematocrit 33.3 % (37-47); Hemoglobin 10.4 g/dL (12.0-15.0); Mean Corp Hgb Conc 31.2 g/dL (32-36); Mean Corpuscular Hgb 29.5 pg (27.0-32.0); Mean Corpuscular Volume 94.6 fL (81-99); Mean Platelet Vol. 11.3 fl (6.2-12.0); Platelet Count 181 K/mm3 (150-450); RBC Distribution Width CV 13.2 % (11.6-14.6); RBC Distribution Width SD 46.5 fl (35.1-43.9); Red Blood Count 3.52 M/mm3 (4.2-5.4); White Blood Count 3.2 K/mm3 (4.4-11.0)
[2020-03-15 07:03] LABS: ALB/GLOB Ratio 0.9 RATIO (0.9-2.4); AST(SGOT) 29 U/L (15-37); Alanine Aminotransfer ALT/SGPT 16 U/L (13-56); Alkaline Phosphatase 88 U/L (45-117); Anion Gap 10 (5-15); BUN 40 mg/dL (7-18); BUN/Creat Ratio 28.2 RATIO (10-20); Calcium,Total 8.7 mg/dL (8.5-10.1); Chloride 106 mmol/L (98-107); Creatinine, Serum 1.42 mg/dL (0.55-1.02); EST Glomerular Filtration Rate 38 mL/min (>60); Est Glom Filt Rate - Afr Amer 45 mL/min (>60); Estimated Creatinine Clearance 21.56 ml/min; Globulin 3.4 g/dL (2.2-4.2); Glucose 110 mg/dL (74-106); Potassium 3.5 mmol/L (3.5-5.1); Protein, Total 6.4 g/dL (6.4-8.2); Sodium Level 141 mmol/L (136-145)
[2020-03-15] MEDS: Metoprolol Tartrate 25 MG Tablet 12.5 MG PO (10:05)
[2020-03-15] MEDS: dexAMETHasone 2 MG TABLET 6 MG PO (10:05)
[2020-03-15] MEDS: APIXABAN 2.5 MG TABLET PO (10:05)
[2020-03-15] MEDS: Amiodarone 200 MG Tablet 100 MG PO (10:09)
[2020-03-15] MEDS: amLODIPine 2.5 MG Tablet PO (10:09)
[2020-03-15] MEDS: Levothyroxine 125 MCG Tablet PO (10:09)
[2020-03-15] MEDS: Lisinopril 10 MG Tablet PO (10:09)
[2020-03-15] MEDS: Pantoprazole Sodium 20 MG Tablet PO (10:10)
[2020-03-15] MEDS: Furosemide 40 MG Tablet PO (10:30)
--- NOTE | 2020-03-15 11:30 | PCM.DC ---
- Discharge Diagnoses Current Active Problems: Current Active and Chronic Problems (Last Reviewed 03/05/20 @ 10:00 by Montserrat MOELLER, PA) COVID-19 (Acute) You will use the following diet at home:: Cardiac Your food should be the consistency of: Regular Your liquids should be the consistency of: Regular/Thin Discharge Activity: Return to Normal Activity Weight Bearing Status: Weight bearing as tolerated Call your doctor if you observe: Fever of 101 or Higher, Shortness of breath, Dizziness, Fainting spells, Swelling in the ankles Instructions: Coronavirus Disease 2019 (COVID-19): Caring for Yourself or Others, Coronavirus Disease 2019 (COVID-19): Overview Additional Instructions: To remain in self isolation till April 03/2021, to complete 3 weeks of self isolation Allergies/Adverse Reactions: Allergies atorvastatin [From Lipitor] Adverse Reaction (Verified 03/05/20 09:08) Pain in joints niacin Adverse Reaction (Verified 03/05/20 09:08) Pain in joints pregabalin [From Lyrica] Adverse Reaction (Verified 03/05/20 09:08) Other simvastatin [From Zocor] Adverse Reaction (Verified 03/05/20 09:08) Pain in joints Medications to take at Discharge Nitroglycerin (INPATIENT USE) [Nitrostat] 0.4 mg SUBLINGUAL Q5M PRN 02/24/16 levothyroxine 125 mcg tablet 125 mcg PO DAILY #30 tab 11/14/18 metoprolol tartrate 25 mg tablet 12.5 mg PO BID tab 12/31/19 hydrocodone 5 mg-acetaminophen 300 mg tablet 1 tab PO Q6H PRN 02/29/20 amiodarone 200 mg tablet 100 mg PO DAILY tab 03/05/20 amlodipine 2.5 mg tablet 2.5 mg PO BID tab 03/05/20 Apixaban [Eliquis] 2.5 mg PO BID 03/13/20 Clopidogrel Bisulfate [Clopidogrel] 75 mg PO DINNER 03/13/20 Furosemide 40 mg PO BID 03/13/20 Lisinopril [Prinivil] 10 mg PO DAILY 03/13/20 Omeprazole 20 mg PO DAILY 03/13/20 Dexamethasone 6 mg PO DAILY #8 tab 03/15/20 The following prescriptions were given: Dexamethasone 6 mg PO DAILY #8 tab Transmission Status: Pending to [facility] #30 Primary Care Physician: Matteo West III, MD [Primary Care Provider] - Please follow up with your Primary Care Physician in: 1-2 weeks Test Results: Test results from this visit will be discussed in further detail at your follow-up appointment, if applicable. Proposed Discharge Date: 03/15/20
--- NOTE | 2020-03-15 11:32 | DS.PCM_ITS ---
Discharge Date and Diagnosis - Problem List Patient Problems: Active and Suspected Problems (Last Reviewed 03/05/20 @ 10:00 by SAJAN Ledezma) COVID-19 (Acute) Date of Admission: 03/13/20 Date of Discharge: 03/15/20 - Primary Discharge Diagnosis Acute Problems: Active Problems (Last Reviewed 03/05/20 @ 10:00 by Montserrat MOELLER PA) COVID-19 (Acute) acute heart failure with preserved EF - Secondary Discharge Diagnosis Chronic Problems: Chronic Problems (Last Reviewed 03/05/20 @ 10:00 by Montserrat MOELLER, PA) Essential hypertension (Chronic) History of coronary artery stent placement (Chronic 2014) PCI-KHOI-LAD 2014 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) Nonrheumatic aortic valve insufficiency (Chronic) Nonrheumatic mitral (valve) insufficiency (Chronic) Secondary pulmonary arterial hypertension (Chronic) Paroxysmal atrial fibrillation (Chronic) Takotsubo cardiomyopathy (Chronic) Atherosclerosis of coronary artery of [place] heart without angina pectoris (Chronic) CABG x 2 VALERIO-LAD, 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/2015 History of aortic valve replacement with bioprosthetic valve (Chronic 01/2016) Hospital Course and Treatment Imaging Results: Diagnostic Data Chest X-Ray 03/13/20 10:05 IMPRESSION: Stable examination. Stable linear scarring at the lung bases. Electronically Signed: Manish Zapata MD at 11:10 EST , Service support , infectious disease: Dr Delacruz Operations: None Procedures: None Summary of Care Provided: [] The patient is a 85 year old F with an extensive past medical history as outlined was admitted through the ED on 03/13/2020 with a complaint of generalized weakness and cough for about 4 days prior to admission. His is currently admitted with Covid. She says she had gradually been getting weak at home. She denied any chest pain or palpitations, dizziness and only comp lained of a mild shortness of breath. Review of systems otherwise negative. She decided to come to the ED as she was concerned she may have Covid. At time of review, temperature was 99.4 Fahrenheit with blood pressure 145/52, pulse rate of 93 and respiratory of 18. She was saturating at 95% on room air. Chemistry showed creatinine of 1.66 and sodium of 139 with potassium of 3.6. Initial troponin was 0.089. CBC showed hemoglobin of 10.4 with WBC of 5.2 and platelets of 193. EEG shows stable linear scarring at the lung bases but no evidence of acute cardiopulmonary pathology. Covid test done was positive. She was admitted to be managed for debility due to acute Covid infection. She was started on remdesivir and dexamethasone. BNP was also markedly elevated at 1206, and troponins were indeterminate, was thought to be due to prior troponin leak from heart failure. She was therefore started on diuresis with IV Lasix. She was weaned off of oxygen without shortness started on for shortness of breath. She felt much better. ID was consulted. Patient remained stable and had a walking pulse ox which showed that she did not even qualify for home oxygen. She was discharged home on 03/15/2020 and is follow-up with her primary care doctor and cardiology once she is out of isolation for COVID-19 infection. She was counseled that she may need to remain in self-isolation till April 03, 2020 to complete a 21-day isolation. Per ID recommendations. She was discharged on p.o. dexamethasone 8 mg daily for 8 days to complete a 10-day course. Patient seen and examined prior to discharge. She had no complaints. Review systems otherwise negative. She wanted to be discharged home. Labs and vitals reviewed. Home medication reviewed and reconciled. O/E: Vital Signs Temp Pulse Resp BP Pulse Ox 97.6 F L 78 18 111/56 L 96 03/15/20 09:49 03/15/20 11:00 03/15/20 09:49 03/15/20 10:05 03/15/20 09:58 General: Alert, Oriented x3, Cooperative, No apparent distress HEENT: Atraumatic, PERRLA, EOMI, Normocephalic Oral: Dry Mucosa Neck: Supple, No JVD, Negative Carotid Bruits Lungs: Clear to auscultation, Normal air movement, No rhonchi, No wheeze, No rales; on room air Cardiovascular: Regular rate, Regular Rhythm, Normal S1, Normal S2, No murmurs Abdomen: Bowel Sounds Present, Soft, Non Tender Extremities: No clubbing, No cyanosis, No edema, Capillary Refill Less than 3 Seconds Skin: No rashes, No breakdown Musculoskeletal: No Tenderness to Palpation of Joints or Extremities Lymphatic: No Cervical, Supraclavicular, or Inguinal Adenopathy Neurological: Cranial nerves II-XII grossly intact, Neuro grossly intact, Motor Exam 5/5 strength throughout Psych/Mental Status: Normal Affect, Appropriate, Alert and oriented to time, place, person, mood and affect Plan is for discharge home today. She is to continue taking PO lasix 40mg bid as prescribed by her vision therapist. Patient Problems: Active and Suspected Problems (Last Reviewed 03/05/20 @ 10:00 by Montserrat MOELLER, PA) COVID-19 (Acute) - Physical Exam Vitals/I&O's: Vital Signs Temp Pulse Resp BP Pulse Ox 97.6 F L 78 18 111/56 L 96 03/15/20 09:49 03/15/20 10:05 03/15/20 09:49 03/15/20 10:05 03/15/20 09:58 Oxygen Flow Rate (L/min) 3 Oxygen Delivery Method Room Air Weight: 180 lb 3.188 oz Body Mass Index (BMI) 35.2 Intake and Output for Last 24 Hours 03/13/20 03/14/20 03/15/20 23:59 23:59 23:59 Intake Total 1508 / 1748 3330 / 3680 650 / 650 Output Total 100 / 100 300 / 900 600 / 600 Balance 1408 / 1648 3030 / 2780 50 / 50 Microbiology Past 72 Hours 03/13/20 10:25 Mucosa - Nose SARS-CoV-2 Antigen (Rapid) - Final SARS-CoV-2 (COVID 19) Laboratory Results 03/15/20 06:05: WBC 3.2 L, RBC 3.52 L, Hgb 10.4 L, Hct 33.3 L, MCV 94.6, MCH 29.5, MCHC 31.2 L, RDW Std Deviation 46.5 H, RDW Coeff of Leatha 13.2, Plt Count 181, MPV 11.3 03/15/20 06:05: Sodium 141, Potassium 3.5, Chloride 106, Carbon Dioxide 25.0, Anion Gap 10, BUN 40 H, Creatinine 1.42 H, Estim Creat Clear Calc 21.56, Est GFR (MDRD) Af Amer 45 L, Est GFR (MDRD) Non-Af 38 L, BUN/Creatinine Ratio 28.2 H, Glucose 110 H, Calcium 8.7, Total Bilirubin 0.60, AST 29, ALT 16, Alkaline Phosphatase 88, Total Protein 6.4, Albumin 3.0 L, Globulin 3.4, Albumin/Globulin Ratio 0.9 Current Medications Acetaminophen (Acetaminophen 325 Mg Tablet) 650 mg PO Q6H PRN PRN PRN Reason: Pain Score 1-10/Temp > 100.7 F Hydrocodone Bitart/Acetaminophen (Hydrocodone Bitartrate/Apap 5/325 Tablet) 1 tablet PO Q6H PRN PRN Reason: PAIN 1-10/FEVER Last Admin: 03/14/20 22:37 Dose: 1 tablet Documented by: Amiodarone HCl (Amiodarone 200 Mg Tablet) 100 mg PO DAILY [facility] Last Admin: 03/15/20 10:09 Dose: 100 mg Documented by: Amlodipine Besylate (Amlodipine 2.5 Mg Tablet) 2.5 mg PO BID [facility] Last Admin: 03/15/20 10:09 Dose: 2.5 mg Documented by: Apixaban (Apixaban 2.5 Mg Tablet) 2.5 mg PO BID [facility] Last Admin: 03/15/20 10:05 Dose: 2.5 mg Documented by: Clopidogrel Bisulfate (Clopidogrel Bisulfate 75 Mg Tablet) 75 mg PO DINNER [facility] Last Admin: 03/14/20 17:33 Dose: 75 mg Documented by: Dexamethasone (Dexamethasone 2 Mg Tablet) 6 mg PO DAILY [facility] Stop: 03/23/20 10:01 Last Admin: 03/15/20 10:05 Dose: 6 mg Documented by: Furosemide (Furosemide 40 Mg Tablet) 40 mg PO DAILY [facility] Last Admin: 03/15/20 10:30 Dose: 40 mg Documented by: Sodium Chloride () 250 mls @ 15 mls/hr IV .[id number] PRN PRN Reason: Saline Flush Sodium Chloride () 250 mls @ 15 mls/hr IV .[id number] PRN PRN Reason: Additional IVPB Infusion Remdesivir 100 mg/ Sodium (Chloride) 250 mls @ 125 mls/hr IV DAILY [facility] Stop: 03/17/20 11:59 Last Admin: 03/15/20 10:11 Dose: 125 mls/hr Documented by: Levothyroxine Sodium (Levothyroxine 125 Mcg Tablet) 125 mcg PO DAILY [facility] Last Admin: 03/15/20 10:09 Dose: 125 mcg Documented by: Lisinopril (Lisinopril 10 Mg Tablet) 10 mg PO DAILY [facility] Last Admin: 03/15/20 10:09 Dose: 10 mg Documented by: Metoprolol Tartrate (Metoprolol Tartrate 25 Mg Tablet) 12.5 mg PO BID [facility] Last Admin: 03/15/20 10:05 Dose: 12.5 mg Documented by: Nitroglycerin (Nitroglycerin (Inpatient Use) 0.4 Mg Tab.Subl) 0.4 mg SUBLINGUAL Q5M PRN PRN Reason: CHEST Ondansetron HCl (Ondansetron 4 Mg/2 Ml Vial) 4 mg IV Q8H PRN PRN PRN Reason: NAUSEA/VOMITING Pantoprazole Sodium (Pantoprazole Sodium 20 Mg Tablet) 20 mg PO DAILY [facility] Last Admin: 03/15/20 10:10 Dose: 20 mg Documented by: Sodium Chloride (0.9% Saline Lock 10 Ml Syringe) 10 - 40 ml IV UD PRN PRN Reason: SALINE FLUSH Discharge Diet: Low fat/ Low Cholesterol Discharge Activity: Return to Normal Activity Weight Bearing Status: Weight bearing as tolerated Call your doctor if you observe: Fever of 101 or Higher, Shortness of breath, Dizziness, Fainting spells, Swelling in the ankles Home Medications: Medications to take at Discharge Nitroglycerin (INPATIENT USE) [Nitrostat] 0.4 mg SUBLINGUAL Q5M PRN 02/24/16 levothyroxine 125 mcg tablet 125 mcg PO DAILY #30 tab 11/14/18 metoprolol tartrate 25 mg tablet 12.5 mg PO BID tab 12/31/19 hydrocodone 5 mg-acetaminophen 300 mg tablet 1 tab PO Q6H PRN 02/29/20 amiodarone 200 mg tablet 100 mg PO DAILY tab 03/05/20 amlodipine 2.5 mg tablet 2.5 mg PO BID tab 03/05/20 Apixaban [Eliquis] 2.5 mg PO BID 03/13/20 Clopidogrel Bisulfate [Clopidogrel] 75 mg PO DINNER 03/13/20 Furosemide 40 mg PO BID 03/13/20 Lisinopril [Prinivil] 10 mg PO DAILY 03/13/20 Omeprazole 20 mg PO DAILY 03/13/20 Dexamethasone 6 mg PO DAILY #8 tab 03/15/20 Following Prescriptions Were Given to Patient: Dexamethasone 6 mg PO DAILY #8 tab Transmission Status: Pending to [facility] #30 Primary Care Physician: Matteo West III, MD [Primary Care Provider] - Please follow up with your Primary Care Physician in: 1-2 weeks Please Follow Up With: Jose Mason MD When: 3-4 weeks Patient Instructions: Coronavirus Disease 2019 (COVID-19): Overview, Coronavirus Disease 2019 (COVID-19): Caring for Yourself or Others Disposition: Home Minutes spent on discharge:: 40 Patient Condition:: Stable Medical Necessity - Tobacco Use Smoking Status: Never smoker Meaningful Use Info Meaningful Use Diagnoses (Choose all that apply): CHF - CHF FRANCISCO/ARB ordered at discharge?: No Reason FRANCISCO/ARB not ordered?: Worsening renal disease Documented LVEF (%): 55 Inpatient E&M: 01937 Disch Hosp
--- NOTE | 2020-03-17 15:29 | CASEMGMT ---
ADONIS CM DC PHONE CALL DC DATE: 03/15/20 DC DISPOSITION: Home DC DIAGNOSIS: SARS COVID 2 Attempted call to phone. No answer and no messaging with name identifier. Juanita CHOW RN ACM
== END 2020-03-15 14:40 | disposition home or self-care (01) | DRG 177 ==
LOC: ED 11:19 → MS2 12:10
PROVIDERS: Admitting Provider Student in an Organized Health Care Education/Training Program; Emergency Provider Emergency Medicine; PCP Family Medicine; Visit Provider Student in an Organized Health Care Education/Training Program
DX: U07.1 COVID-19 (principal); I13.0 Hypertensive heart and chronic kidney disease with heart failure and stage 1 through stage 4 chronic kidney disease, or unspecified chronic kidney disease; I50.33 Acute on chronic diastolic (congestive) heart failure; I47.2 Ventricular tachycardia; R09.02 Hypoxemia; N18.30 Chronic kidney disease, stage 3 unspecified; I48.0 Paroxysmal atrial fibrillation; I27.21 Secondary pulmonary arterial hypertension; I25.10 Atherosclerotic heart disease of native coronary artery without angina pectoris; I37.1 Nonrheumatic pulmonary valve insufficiency; I34.0 Nonrheumatic mitral (valve) insufficiency; E03.9 Hypothyroidism, unspecified; E66.9 Obesity, unspecified; Z68.35 Body mass index [BMI] 35.0-35.9, adult; Z79.01 Long term (current) use of anticoagulants; Z79.02 Long term (current) use of antithrombotics/antiplatelets; Z79.890 Hormone replacement therapy; Z79.899 Other long term (current) drug therapy; Z95.3 Presence of xenogenic heart valve; Z95.5 Presence of coronary angioplasty implant and graft; Z95.1 Presence of aortocoronary bypass graft
CPT/HCPCS: 36415; 71045; 80053; 81001; 82550; 83735; 83880; 84075; 84145; 84484; 85025; 85027; 85379; 86140; 87426; 93005; 93970; 97162; 97166; 99285; J7030; J7050; J1940

== ENCOUNTER 2020-03-22 09:16 | Emergency (ER) | payer MEDICARE, SELFPAY ==
[2020-03-13 12:40] VITALS: BMI 35.2
[2020-03-22 09:17] VITALS: BP 129/73; PULSE 91; RESP 16; TEMP 36.9; O2SAT 97; BMI 35.0
[2020-03-22 09:38] VITALS: BP 107/62; PULSE 89; RESP 17; O2SAT 92; O2SAT 94
--- NOTE | 2020-03-22 09:54 | RAD_ITS ---
STUDY: X-RAY CHEST REASON FOR EXAM: Female, 85 years old. cough TECHNIQUE: Single AP portable view of the chest. COMPARISON: 03/13/2020 FINDINGS: Status post median sternotomy. The lungs are clear and expanded. There is no demonstrated pleural abnormality. There is moderate cardiac enlargement. Normal mediastinum and seun. Normal visualized pulmonary arteries. Normal visualized aortic arch and descending thoracic aorta. Normal visualized thoracic spine. Normal visualized ribs, clavicles, and shoulders. There is no demonstrated abnormality of the visualized soft tissue structures of the upper abdomen. RAD/Chest 1 View (Portable) IMPRESSION: No active disease. Electronically Signed: Mitchell Walsh MD at 11:03 EST Tel , Service support ,
[2020-03-22 10:13] LABS: Absolute Lymphocyte Count 0.75 X10^3/uL (0.83-4.51); Absolute Neutrophil Count 9.3 X10^3/uL (2.0-7.7); Basophil# 0.01 X10^3/uL; Basophil% 0.1 % (0-1); Eosinophil# 0.01 X10^3/uL; Eosinophils% 0.1 % (0-5); Hematocrit 36.3 % (37-47); Hemoglobin 11.5 g/dL (12.0-15.0); Lymphocyte # 0.75 X10^3/ul (4.0); Lymphocyte % 6.5 % (19-41); Mean Corp Hgb Conc 31.7 g/dL (32-36); Mean Corpuscular Hgb 29.6 pg (27.0-32.0); Mean Corpuscular Volume 93.6 fL (81-99); Mean Platelet Vol. 12.1 fl (6.2-12.0); Monocyte# 1.27 X10^3/uL; Monocyte% 11.1 % (0-10); NRBC Flagged by Analyzer 0 % (0-5); Platelet Count 238 K/mm3 (150-450); RBC Distribution Width CV 13.6 % (11.6-14.6); RBC Distribution Width SD 46.3 fl (35.1-43.9); Red Blood Count 3.88 M/mm3 (4.2-5.4); White Blood Count 11.5 K/mm3 (4.4-11.0)
[2020-03-22 10:27] LABS: ALB/GLOB Ratio 0.9 RATIO (0.9-2.4); AST(SGOT) 18 U/L (15-37); Alanine Aminotransfer ALT/SGPT 25 U/L (13-56); Albumin, Serum 3.4 g/dL (3.2-5.0); Alkaline Phosphatase 83 U/L (45-117); Anion Gap 7 (5-15); BUN 45 mg/dL (7-18); BUN/Creat Ratio 31.5 RATIO (10-20); Calcium,Total 8.9 mg/dL (8.5-10.1); Chloride 109 mmol/L (98-107); Creatinine, Serum 1.43 mg/dL (0.55-1.02); EST Glomerular Filtration Rate 37 mL/min (>60); Est Glom Filt Rate - Afr Amer 45 mL/min (>60); Estimated Creatinine Clearance 21.41 ml/min; Globulin 3.9 g/dL (2.2-4.2); Glucose 131 mg/dL (74-106); Potassium 3.9 mmol/L (3.5-5.1); Protein, Total 7.3 g/dL (6.4-8.2); Sodium Level 141 mmol/L (136-145)
[2020-03-22 10:32] VITALS: PULSE 88; RESP 16
[2020-03-22 10:48] LABS: Lactic Acid 1.1 mmol/L (0.4-1.9)
[2020-03-22 10:51] VITALS: BP 117/68; PULSE 106; RESP 17; O2SAT 97
--- NOTE | 2020-03-22 11:42 | ED.DCSUM_ITS ---
- ER Visit Summary Date of Service: 03/22/20 Chief Complaint: Cough, weakness, shortness of breath History of Present Illness: The patient is a 85 F who presents with cough, weakness, and shortness of breath that has been getting progressively worse over the past week. Patient tested positive for COVID-19 on 03/09/2020. Patient was hospitalized at that time. Patient was discharged from the hospital on 03/15/2020. Patient states she is feeling weak all over. Patient states nothing makes it better or worse. Patient admits to a cough. Patient states she is coughing up some yepez sputum. Patient denies any fevers or chills. Patient denies any nausea or vomiting. Patient states she feels like she might be dehydrated. Physical Examination: Vital signs are stable. Patient is afebrile. Patient is in no acute distress. Oral mucosa is pink and moist. Neck is supple. Trachea is midline. There is no JVD. Heart was regular rate and rhythm. Lungs are clear but diminished bilaterally. Abdomen is soft. Bowel sounds are normal. There is no tenderness. Cranial nerves II through XII are intact. There are no focal motor or sensory deficits. Extremities are intact. There is no calf tenderness or edema. Test Results: Portable 1 view chest x-ray was obtained. On my interpretation, lung mobley are clear. There is normal cardiac silhouette. Bony thorax is normal. There is no acute process noted. Radiologist also interpreted the x- ray and agrees. CBC shows a slight leukocytosis of 11.5. Comprehensive metabolic profile showed a creatinine of 1.43 and BUN of 45. This is consistent with prior results. Total bilirubin was slightly elevated at 1.5. Lactate was normal at 1.1. Emergency Department Course and Treatment: Patient was given IV fluids here. Patient was given an albuterol inhaler. Patient feels somewhat better after this. Patient was instructed to use her albuterol inhaler as needed. Patient was instructed to follow-up with her primary care physician in 3 to 5 days. Patient understood and was agreeable with the plan. All questions were answered. Disposition: Discharge home Impression: 1. COVID-19 This note was generated with [email or web address] software. It may contain incorrect words, spelling, and punctuation that were not noted in review of the chart prior to signing ED Disposition - Plan for ED Patient: Disposition: Home or Assisted Living Diagnosis: COVID-19 Instructions: Coronavirus Disease 2019 (COVID-19): Overview, Coronavirus Disease 2019 (COVID-19): Caring for Yourself or Others Referrals: Matteo West III, MD [Primary Care Provider] - 3-5 Days
[2020-03-22 12:39] VITALS: BP 98/55; PULSE 106; RESP 20; O2SAT 95
== END 2020-03-22 13:27 | disposition home or self-care (01) ==
PROVIDERS: Emergency Provider Emergency Medicine; PCP Family Medicine
DX: U07.1 COVID-19 (principal); I25.10 Atherosclerotic heart disease of native coronary artery without angina pectoris; Z79.01 Long term (current) use of anticoagulants; Z79.02 Long term (current) use of antithrombotics/antiplatelets; Z79.899 Other long term (current) drug therapy; Z95.1 Presence of aortocoronary bypass graft; Z95.5 Presence of coronary angioplasty implant and graft; Z96.653 Presence of artificial knee joint, bilateral
CPT/HCPCS: 71045; 80053; 83605; 85025; 87040; 94640; 96360; 96361; 99285; J7030; A4216

== ENCOUNTER 2020-03-25 14:27 | Inpatient (IN) | payer MEDICARE, SELFPAY ==
[2020-03-25] VITALS (11 sets, daily range): BP systolic 108–144; BP diastolic 49–111; PULSE 64–131; RESP 19–32; TEMP 35.8–38.3; O2SAT 88–96; BMI 31.8; BMI 31.9; BMI 33.5
--- NOTE | 2020-03-25 14:42 | EKG12_ITS ---
Test Reason : SOB Blood Pressure : / mmHG Vent. Rate : 117 BPM Atrial Rate : 357 BPM P-R Int : 000 ms QRS Dur : 120 ms QT Int : 320 ms P-R-T Axes : 000 -41 118 degrees QTc Int : 446 ms Atrial flutter with variable A-V block Left axis deviation Incomplete left bundle branch block Inferior infarct , age undetermined , cannot be excluded ST & T wave abnormality, consider lateral ischemia Abnormal ECG Confirmed by ERIN JIMENEZ, MARLENE ([id number]), design editor SABRINA FLORES ([id number]) on 03/27/2020 10:29:37 AM Referred By: NIKKI Confirmed By:MARLENE KHAN MD
--- NOTE | 2020-03-25 14:42 | RAD_ITS ---
STUDY: X-RAY CHEST REASON FOR EXAM: Female, 85 years old. increased sob with decreased O2 sat. DX COVID 02/28/20. -- ROOM AIR SAT 88%. TECHNIQUE: Single AP portable view of the chest. COMPARISON: Comparison is made with prior study dated 03/22/2020. FINDINGS: EKG electrodes are seen. Since prior study, there has been progressive patchy infiltrates in both lungs. There is no demonstrated pleural abnormality. Sternal cerclage wires and vascular clips are present from a prior sternotomy and coronary artery bypass graft procedure (CABG). Normal mediastinum and seun. Normal visualized pulmonary arteries. Normal visualized aortic arch and descending thoracic aorta. Normal visualized thoracic spine. Normal visualized ribs, clavicles, and shoulders. There is no demonstrated abnormality of the visualized soft tissue structures of the upper abdomen. RAD/Chest 1 View (Portable) IMPRESSION: Since prior study, there has been progressive bilateral pulmonary infiltrates. Electronically Signed: Manish Zapata MD at 15:23 EST , Service support ,
--- NOTE | 2020-03-25 14:45 | ED.DCSUM_ITS ---
- ER Visit Summary Date of Service: 03/25/20 Chief Complaint: [Shortness of breath] History of Present Illness: The patient is a 85 F [presents to the emergency department complaint shortness of breath that is worsened over last 4 to 5 days. Patient states that she was diagnosed with Covid on February 28. Patient was admitted and hospitalized for time. Patient according to EMS was hypoxic on their arrival with an O2 sat in the 80s. Patient complains of a cough that is mild and at times productive of some lewis sputum. She denies any chest pain. She has had fevers. Patient has history of coronary artery disease, CHF, hypertension, A. fib, and history of Takotsubo cardiomyopathy. Patient's had p rior aortic valve replacement with a bioprosthetic valve. She is currently on Eliquis. Patient has had prior CABG.] Physical Examination: [HEENT-PERRLA, EOMI. Cranial nerves II through XII grossly intact. TMs clear. Mucous membranes moist. No adenopathy. Cardiovascular-regular rate and rhythm without murmur or ectopy Lungs-good aeration bilaterally. Patient has a few rales in both bases. Minimal tachypnea. No accessory muscle use or retractions. No conversational dyspnea. Abdomen-normoactive bowel sounds, soft, nontender, no rebound or rigidity, no peritoneal signs. Extremities-intact ?4, normal range of motion, normal pulses, atraumatic. No edema of the lower extremities noted.] Test Results: [EKG obtained arrival showed atrial fibrillation with a rapid ventricular response of [address] changes. CBC with differential showing a 10.7, hemoglobin 10.9, hematocrit 34, plates 155. Chemistries unremarkable. BUN was 40 and creatinine 1.49. Troponin was 0.286. Lactate was 1.8. Chest x-ray showed bilateral infiltrates increased from prior x-ray from March 22. Radiology in agreement with interpretation.] Emergency Department Course and Treatment: [IV line established on arrival. Patient was placed on a cardiac monitor technician. Patient was placed on 2 L nasal cannula O2 for pulse ox of 88% on room air. Patient was started on Decadron. Patient was started on Zosyn and vancomycin IV.] Treatment Plan: [Admit for further treatment of worsening bilateral pneumonia. Patient with recent COVID-19 diagnosis February 28. There is concern for bacterial superinfection.] Disposition: [Admit] Impression: [Bilateral pneumonia Dyspnea Hypoxemia A. fib RVR Sepsis syndrome Recent COVID-19 infection] This note was generated with [employer] dictation software. It may contain incorrect words, spelling, and punctuation that were not noted in review of the chart prior to signing ED Disposition - Plan for ED Patient: Referrals: Matteo West III, MD [Primary Care Provider] -
[2020-03-25 15:05] LABS: Absolute Lymphocyte Count 0.74 X10^3/uL (0.83-4.51); Absolute Neutrophil Count 9.2 X10^3/uL (2.0-7.7); Basophil# 0.01 X10^3/uL; Basophil% 0.1 % (0-1); Hemoglobin 10.9 g/dL (12.0-15.0); Lymphocyte # 0.74 X10^3/ul (4.0); Lymphocyte % 6.9 % (19-41); Mean Corp Hgb Conc 32.1 g/dL (32-36); Mean Corpuscular Hgb 29.9 pg (27.0-32.0); Mean Corpuscular Volume 93.4 fL (81-99); Mean Platelet Vol. 12.1 fl (6.2-12.0); Monocyte# 0.64 X10^3/uL; NRBC Flagged by Analyzer 0 % (0-5); Neutrophil # 9.18 X10^3/uL (2.7-7.7); Neutrophil % 86.2 % (47-70); Platelet Count 155 K/mm3 (150-450); RBC Distribution Width SD 47.9 fl (35.1-43.9); Red Blood Count 3.64 M/mm3 (4.2-5.4); White Blood Count 10.7 K/mm3 (4.4-11.0)
[2020-03-25 15:23] LABS: Anion Gap 6 (5-15); BUN 40 mg/dL (7-18); BUN/Creat Ratio 26.8 RATIO (10-20); Calcium,Total 8.8 mg/dL (8.5-10.1); Chloride 109 mmol/L (98-107); Creatinine, Serum 1.49 mg/dL (0.55-1.02); EST Glomerular Filtration Rate 36 mL/min (>60); Est Glom Filt Rate - Afr Amer 43 mL/min (>60); Estimated Creatinine Clearance 23.66 ml/min; Glucose 113 mg/dL (74-106); Potassium 3.6 mmol/L (3.5-5.1); Sodium Level 141 mmol/L (136-145)
[2020-03-25 15:35] LABS: Lactic Acid 1.8 mmol/L (0.4-1.9)
[2020-03-25] MEDS: Acetaminophen 325 MG Tablet 650 MG PO (15:41)
[2020-03-25] MEDS: 0.9% Normal Saline 1,000 ML 150 ML IV (15:41)
--- NOTE | 2020-03-25 15:50 | PCM.HP.STD ---
Problem List (1) COVID-19 Status: Acute (2) Essential hypertension Status: Chronic (3) History of coronary artery stent placement Status: Chronic Comment: PCI-KHOI-LAD 2014 (4) Chronic combined systolic and diastolic CHF (congestive heart failure) Status: Chronic (5) Nonrheumatic pulmonary valve insufficiency Status: Chronic (6) Nonrheumatic aortic valve insufficiency Status: Chronic (7) Nonrheumatic mitral (valve) insufficiency Status: Chronic (8) Secondary pulmonary arterial hypertension Status: Chronic (9) Paroxysmal atrial fibrillation Status: Chronic (10) Takotsubo cardiomyopathy Status: Chronic (11) H/O coronary artery bypass surgery Status: Resolved Comment: CABG x 2 VALERIO-LAD, 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/2015 (12) Atherosclerosis of coronary artery of [place] heart without angina pectoris Status: Chronic Qualifiers: Comment: CABG x 2 VALERIO-LAD, 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/2015 (13) History of aortic valve replacement with bioprosthetic valve Status: Chronic History of Present Illness Date of Admission: 03/25/20 Chief Complaint: Worsening of COVID-19 symptoms for about 8 days The patient is a 85 year old F with multiple comorbidities as listed below, was recently admitted between 03/13-03/15 for COVID-19 pneumonia and was discharged on Decadron came to ED for worsening of shortness of breath, cough with brownish sputum for 8 days. Patient also came to ED on 03/22 and was sent home on albuterol inhaler. Patient states he has 1 dose of Decadron left although she was supposed to finish on 03/23/2020. During previous admission patient had 3 doses of remdesivir. She denies chest pain. In ED, triage vitals were temperature 101 Fahrenheit, heart rate 130/min, BP 136/77, respiratory rate 27, pulse ox 88% on room air. Chest x-ray done in the ER shows worsening of infiltrates in both lungs. Twelve-lead EKG shows atrial flutter with variable conduction at 117 bpm, LAD with nonspecific ST-T abnormality. Previous EKG showed A. fib at 98 bpm. In the ED, she had 1 dose of Decadron, vancomycin and Zosyn and further admitted. 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) Nonrheumatic mitral (valve) insufficiency (Chronic) Secondary pulmonary arterial hypertension (Chronic) Paroxysmal atrial fibrillation (Chronic) Takotsubo cardiomyopathy (Chronic) Atherosclerosis of coronary artery of [place] heart without angina pectoris (Chronic) CABG x 2 VALERIO-LAD, 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/2015 History of aortic valve replacement with bioprosthetic valve (Chronic 01/2016) Medical History: Medical History (Last Reviewed 03/05/20 @ 10:00 by Montserrat MOELLER, PA) Essential hypertension (Chronic) I10 Chronic combined systolic and diastolic CHF (congestive heart failure) (Chronic) I50.42 Nonrheumatic pulmonary valve insufficiency (Chronic) I37.1 Nonrheumatic aortic valve insufficiency (Chronic) I35.1 Nonrheumatic mitral (valve) insufficiency (Chronic) I34.0 Secondary pulmonary arterial hypertension (Chronic) I27.21 Paroxysmal atrial fibrillation (Chronic) I48.0 Takotsubo cardiomyopathy (Chronic) I51.81 Atherosclerosis of coronary artery of [place] heart without angina pectoris (Chronic) I25.10 CABG x 2 VALERIO-LAD, 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/2015 Acquired hypothyroidism E03.9 Anemia D64.9 Anxiety and depression F41.9, F32.9 Chronic kidney disease, stage 3 N18.3 Esophagitis K20.9 Insomnia G47.00 Obesity (BMI 30-39.9) E66.9 PUD (peptic ulcer disease) K27.9 Acute kidney injury N17.9 Allergies atorvastatin [From Lipitor] Adverse Reaction (Verified 03/22/20 09:17) Pain in joints niacin Adverse Reaction (Verified 03/22/20 09:17) Pain in joints pregabalin [From Lyrica] Adverse Reaction (Verified 03/22/20 09:17) Other simvastatin [From Zocor] Adverse Reaction (Verified 03/22/20 09:17) Pain in joints Home Medications: Ambulatory Orders Medication Instructions Recorded Nitroglycerin (INPATIENT USE) 0.4 mg SUBLINGUAL Q5M PRN 02/24/16 [Nitrostat] levothyroxine 125 mcg tablet 125 mcg PO DAILY #30 tab 11/14/18 metoprolol tartrate 25 mg tablet 12.5 mg PO BID tab 12/31/19 hydrocodone 5 mg-acetaminophen 300 1 tab PO Q6H PRN 02/29/20 mg tablet amiodarone 200 mg tablet 100 mg PO DAILY tab 03/05/20 amlodipine 2.5 mg tablet 2.5 mg PO DAILY tab 03/05/20 Clopidogrel Bisulfate [Clopidogrel] 75 mg PO DINNER 03/13/20 Furosemide 40 mg PO BID 03/13/20 Lisinopril [Prinivil] 10 mg PO DAILY 03/13/20 Omeprazole 20 mg PO DAILY 03/13/20 Apixaban [Eliquis] 5 mg PO BID 03/25/20 Surgical History: Surgical History (Last Reviewed 03/05/20 @ 10:00 by Montserrat MOELLER, PA) History of coronary artery stent placement (Chronic) Onset Date: 2014 Z95.5 PCI-KHOI-LAD 2014 H/O coronary artery bypass surgery (Resolved) Onset Date: 01/2016 Z95.1 CABG x 2 VALERIO-LAD, 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/2015 History of aortic valve replacement with bioprosthetic valve (Chronic) Onset Date: 01/2016 Z95.3 History of cardioversion Onset Date: 12/24/19 Z98.890 Surgical History: coronary bypass surgery Psychiatric History: No pertinent psych hx Smoking Status: Never smoker - *Family History Maternal Family History: Family History (Last Reviewed 03/05/20 @ 10:00 by Montserrat MOELLER, PA) Mother Diabetes Heart disease Other CAD (coronary artery disease) History Items: Diabetes, Heart Disease Review of Systems Constitutional: Reports: Anorexia, Chills, Fever, Malaise, Weakness, Fatigue HEENT: Denies: Head Aches, Sinus Congestion, Sinus Drainage Cardiovascular: Denies: Chest Pain, Chest Pressure, Chest Tightness, Palpitations Respiratory: Reports: Cough, Shortness of Breath, Shortness of breath at rest, Shortness of breath upon exertion, Sputum production. Denies: Wheezing Gastrointestinal: Denies: Abdominal Pain, Constipation, Nausea, Vomiting Genitourinary: Denies: Dysuria, Frequency, Hesitancy Musculoskeletal: Denies: Joint Pain, Joint Tenderness Skin: Denies: Rash, Wounds Neurological: Reports: Balance problems. Denies: Focal weakness, Numbness, Tingling Psychiatric: Denies: Anxiety, Depression, Homicidal Ideations, Suicidal Ideations Hematologic/ Lymphatic: Denies: Easy Bruising, Easy Bleeding VTE Information - Inpt Only VTE Present on Admission: No VTE Mechan Device Prophylaxis: None Reason prophylaxis not ordered:: Procedure Not Indicated - Patient already on Eliquis 5 mg twice daily. Patient Problems: Active and Suspected Problems (Last Reviewed 03/05/20 @ 10:00 by Montserrat MOELLER, PA) COVID-19 (Acute) Objective: Physical exam General: Alert, Oriented x3, Cooperative HEENT: Atraumatic, PERRLA, EOMI, Normocephalic Oral: No Gingival or Mucosal Lesions/ Ulcerations Neck: Supple, No JVD, Negative Carotid Bruits Lungs: Air entry diminished in bilateral lung bases. Bilateral coarse crepitations present. Tachypnea and hypoxia. Cardiovascular: Irregular rate and rhythm, tachycardia. No murmur/gallop/rub. Abdomen: Bowel Sounds Present, Soft, Non Tender, Non-Distended : No renal angle tenderness. No suprapubic tenderness. Extremities: No edema, Capillary Refill Less than 3 Seconds Skin: No rashes, No breakdown Musculoskeletal: No Tenderness to Palpation of Joints or Extremities Neurological: Cranial nerves II-XII grossly intact, Deep Tendon Reflexes 2+/4 and Symmetrical, Neuro grossly intact Psych/Mental Status: Normal Affect, Appropriate. - Physical Exam Vitals/I&O's: Vital Signs Temp Pulse Resp BP Pulse Ox 101 F H 131 H 29 H 144/111 H 96 03/25/20 14:40 03/25/20 14:40 03/25/20 14:40 03/25/20 14:40 03/25/20 14:40 Oxygen Flow Rate (L/min) 2 Oxygen Delivery Method Nasal Cannula Weight: 180 lb 1.883 oz Body Mass Index (BMI) 31.8 Laboratory Results 03/25/20 14:54: WBC 10.7, RBC 3.64 L, Hgb 10.9 L, Hct 34.0 L, MCV 93.4, MCH 29.9, MCHC 32.1, RDW Std Deviation 47.9 H, RDW Coeff of [place] 14.0, Plt Count 155, MPV 12.1 H, Immature Gran % (Auto) 0.800, Neut % (Auto) 86.2 H, Lymph % (Auto) 6.9 L, Cole % (Auto) 6.0, Eos % (Auto) 0.0, Baso % (Auto) 0.1, Absolute Neuts (auto) 9.2 H, Absolute Lymphs (auto) 0.74 L, Nucleated RBC % 0 03/25/20 14:54: Sodium 141, Potassium 3.6, Chloride 109 H, Carbon Dioxide 26.0, Anion Gap 6, BUN 40 H, Creatinine 1.49 H, Estim Creat Clear Calc 23.66, Est GFR (MDRD) Af Amer 43 L, Est GFR (MDRD) Non-Af 36 L, BUN/Creatinine Ratio 26.8 H, Glucose 113 H, Calcium 8.8, Troponin I 0.286 H 03/25/20 14:54: Lactic Acid 1.8 Current Medications Sodium Chloride () 1,000 mls @ 150 mls/hr IV .Q6H40M ONE Stop: 03/25/20 21:21 Last Admin: 03/25/20 15:41 Dose: 150 mls/hr Documented by: Vancomycin HCl 1,250 mg/ (Dextrose) 275 mls @ 250 mls/hr IV X1 ONE Stop: 03/25/20 16:48 Assessment/Plan All Active Problems (Last Reviewed 03/05/20 @ 10:00 by Montserrat MOELLER, PA) COVID-19 (Acute) H/O coronary artery bypass surgery (Resolved 01/2016) Atypical chest pain (Resolved) This 85-year-old female coming to ER for worsening of COVID-19 symptoms cough, tachypnea, shortness of breath and fever and chills. Chest x-ray done in the ER shows worsening of infiltrates in both lungs. Twelve-lead EKG shows atrial flutter with variable conduction at 117 bpm, LAD with nonspecific ST-T abnormality. Previous EKG showed A. fib at 98 bpm. 1. Acute hypoxic respiratory insufficiency due to subacute COVID-19 pneumonia with bacterial superinfection: Discussed with ID. Patient is being admitted to MedSurg floor. Started empirically on IV vancomycin and Zosyn and will continue it. Pneumonia work-up with blood cultures x2, urinary antigens, respiratory panel ordered. Bronchodilator as needed. Incentive spirometry and PEP. Mucinex 1200 mg p.o. twice daily ordered. Patient had 1 dose of IV Decadron does not need further Decadron and remdesivir. 2. Elevated troponin: This may be inflammatory from COVID-19 pneumonia. Patient had elevated troponin during previous admission, 0.106, 0.109 but today it is high 0.286. Patient does not complain of chest pain/pressure, dizziness or near syncope. We will continue patient's home cardiac medications Plavix, Eliquis, amiodarone, amlodipine, metoprolol and lisinopril. Sublingual nitro as needed for chest pain/pressure. 3. Coronary artery disease, two-vessel CABG, history of aortic bioprosthetic valve replacement, secondary pulmonary hypertension and chronic combined systolic and diastolic heart failure: Currently the patient seems dehydrated therefore will just treat with IV fluid. Hold the Lasix for now and resume as per fluid status/hemodynamic parameters. Patient has mildly elevated BUN/creatinine 40/1.49 with her baseline runs around 1.42. 4. Hypertension: Continue antihypertensive medication with holding parameters. Hold for SBP less than 120 mmHg 5. Hypothyroidism: On Synthroid. VTE prophylaxis: Patient already on Eliquis. Living will/advanced directive/end of life care: Patient has living will or advanced directive. Patient's Mr. Jnoah Keith is the power of insurance defense attorney for health. After discussion of benefits/risks procedures involved with full code, DNR CC arrest and DNR CC, the patient opted for DNR-CC Arrest with no intubation in terminal or permanently unconscious state. Patient does not want artificial life support including intubation, tube feed, ventilator and/chest compression, central venous catheter, vasopressor and DC shock if needed Total time spent in [id number] encounter in discussion of advanced directive 16 minutes. Clinical Impression(s) from Imaging Studies Chest X-Ray 03/25/20 14:42 IMPRESSION: Since prior study, there has been progressive bilateral pulmonary infiltrates. Electronically Signed: Manish Zapata MD at 15:23 EST , Service support , Inpatient E&M: 29738 Init Hosp L3 Procedures: 22282 Advncd Care Plan 30 Min
--- NOTE | 2020-03-25 15:52 | NURSING ---
DR SHAE WILLIAMSON
--- NOTE | 2020-03-25 16:01 | NURSING ---
MS2 COVID PNEUMONIA, HYPOXIA, SEPSIS, AFIB RVR SHAE
[2020-03-25] MEDS: dexAMETHasone 4 MG/ML Vial 6 MG IV (16:09)
[2020-03-25 17:46] LABS: Magnesium 2.2 mg/dL (1.6-2.6)
[2020-03-25 17:50] LABS: Fibrinogen 651 mg/dl (203-444)
[2020-03-25 18:05] LABS: BNP,B-Type NATRIURETIC PEPTIDE 2192.9 pg/mL (0-100)
[2020-03-25 18:07] LABS: CPK Total, Creatine Kinase 111 U/L (26-192); LDH 569 U/L (84-246)
[2020-03-25] MEDS: Lactated Ringers 1,000 ML 100 ML IV (18:09)
[2020-03-25 18:15] LABS: Procalcitonin 0.66 ng/mL (0.00-0.09)
--- NOTE | 2020-03-25 20:31 | PCM.RX.CS ---
Consult Pharmacy has been consulted to manage selected antiobiotic: Vancomycin Type of Consult: New start Suspected Infection: Pneumonia Labs: Sodium 141 mmol/L (136-145) 03/25/20 14:54 Potassium 3.6 mmol/L (3.5-5.1) 03/25/20 14:54 Chloride 109 mmol/L (98-107) H 03/25/20 14:54 Carbon Dioxide 26.0 mmol/L (21.0-32.0) 03/25/20 14:54 Anion Gap 6 (5-15) 03/25/20 14:54 BUN 40 mg/dL (7-18) H 03/25/20 14:54 Creatinine 1.49 mg/dL (0.55-1.02) H 03/25/20 14:54 Est GFR (MDRD) Af Amer 43 mL/min (>60) L 03/25/20 14:54 Est GFR (MDRD) Non-Af 36 mL/min (>60) L 03/25/20 14:54 BUN/Creatinine Ratio 26.8 RATIO (10-20) H 03/25/20 14:54 Glucose 113 mg/dL (74-106) H 03/25/20 14:54 Goal Trough: 15-20 mcg/mL Pharmacy Plan for Drug Dosing: NEW START IV VANCOMYCIN Consulting Physician: Jayden Indication: Pneumonia Goal Trough: 15-20 SrCr: 1.49 CrCl: 23.66 ml/min Comments: 15mg/kg initial dose, or 1250mg, given 03/25/20 at 1809 Vancomcyin Dose: per dosing protocol, recommend 750mg iv q24h to start 03/26/20 at 1800 Pending Level: 03/27/20 at 1730 Pharmacy Service will continue to monitor and adjust dosing as required. Follow-Up Labs: Trough Vancomycin - 03/27/20 at 1730
[2020-03-25] MEDS: guaiFENesin 1,200 MG Tablet 1200 MG PO (20:49)
[2020-03-25] MEDS: Metoprolol Tartrate 25 MG Tablet 12.5 MG PO (20:49)
[2020-03-25] MEDS: APIXABAN 5 MG TABLET PO (20:53)
[2020-03-26] VITALS (15 sets, daily range): BP systolic 105–125; BP diastolic 51–65; PULSE 56–91; RESP 17–23; TEMP 35.7–36.5; O2SAT 91–97
[2020-03-26 02:49] LABS: Color, Urine Yellow (Yellow); Glucose, Dipstick Normal (Normal); Ketone-Dipstick Negative (Negative); Leukocyte Esterase-Dipstick 25 /ul (Negative); Mucous, Urine 0 SEEN /hpf (<or=2+); Nitrite-Dipstick Negative (Negative); Occult Blood-Urine 25 /ul (Negative); Protein-Dipstick 100 mg/dl (Negative); Squamous Epithelial Cells - UA 0 SEEN /hpf (5-10); Urine Bilirubin Dipstick Negative (Negative); Urine Clarity Sl. Cloudy (Clear); Urine Urobilinogen Normal (Normal)
[2020-03-26 02:56] LABS: Bacteria 2+ /hpf (None Seen)
[2020-03-26 02:57] LABS: Amorphous Sediment 1+; Coarse Granular Cast 0-5 SEEN /lpf (0-5 /lpf)
[2020-03-26 02:58] LABS: Red Blood Cells-Urine 0-5 SEEN /hpf (0-5); Transitional Epithelial - Ur 0-5 SEEN /hpf (0-5); White Blood Cells 5-10 SEEN /hpf (0-5)
[2020-03-26] MEDS: Furosemide 40 MG/4 ML Vial IV ×3 (03:10→17:43)
[2020-03-26] MEDS: 0.9% Saline Lock 10 ML Syringe IV (05:41)
[2020-03-26 06:16] LABS: Absolute Lymphocyte Count 0.72 X10^3/uL (0.83-4.51); Absolute Neutrophil Count 7.5 X10^3/uL (2.0-7.7); Basophil# 0.01 X10^3/uL; Basophil% 0.1 % (0-1); Hematocrit 35.3 % (37-47); Hemoglobin 10.5 g/dL (12.0-15.0); Lymphocyte # 0.72 X10^3/ul (4.0); Lymphocyte % 8.2 % (19-41); Mean Corp Hgb Conc 29.7 g/dL (32-36); Mean Corpuscular Hgb 30.3 pg (27.0-32.0); Mean Platelet Vol. 12.5 fl (6.2-12.0); Monocyte# 0.47 X10^3/uL; Monocyte% 5.4 % (0-10); NRBC Flagged by Analyzer 0 % (0-5); Neutrophil # 7.48 X10^3/uL (2.7-7.7); Neutrophil % 85.4 % (47-70); Platelet Count 117 K/mm3 (150-450); RBC Distribution Width SD 52.3 fl (35.1-43.9); Red Blood Count 3.46 M/mm3 (4.2-5.4); White Blood Count 8.8 K/mm3 (4.4-11.0)
[2020-03-26 07:03] LABS: ALB/GLOB Ratio 0.5 RATIO (0.9-2.4); AST(SGOT) 56 U/L (15-37); Alanine Aminotransfer ALT/SGPT 32 U/L (13-56); Albumin, Serum 2.2 g/dL (3.2-5.0); Alkaline Phosphatase 69 U/L (45-117); Anion Gap 7 (5-15); BUN 45 mg/dL (7-18); BUN/Creat Ratio 30.8 RATIO (10-20); Calcium,Total 8.5 mg/dL (8.5-10.1); Chloride 112 mmol/L (98-107); Creatinine, Serum 1.46 mg/dL (0.55-1.02); EST Glomerular Filtration Rate 36 mL/min (>60); Est Glom Filt Rate - Afr Amer 44 mL/min (>60); Estimated Creatinine Clearance 20.97 ml/min; Globulin 4.2 g/dL (2.2-4.2); Glucose 124 mg/dL (74-106); Potassium 3.7 mmol/L (3.5-5.1); Protein, Total 6.4 g/dL (6.4-8.2); Sodium Level 140 mmol/L (136-145); Thyroid Stim Hormone (TSH) 0.11 uIU/mL (0.358-3.74)
--- NOTE | 2020-03-26 07:08 | PN_ITS ---
Patient Problems: Active and Suspected Problems (Last Reviewed 03/05/20 @ 10:00 by Montserrat MOELLER, PA) COVID-19 (Acute) Subjective: Patient this morning feels improved following additional IV Lasix diuresis, significantly more so since her initial ED presentation. She had initially been very fatigued and difficult to arouse upon initial presentation but improved through the morning. She notes feeling less short of breath with no significant coughing. She does note feeling weak and fatigued especially with any exer tional attempts but better than previously. Discussed plan of care which included continued judicious IV diuresis, completion of her last dose of Decadron to which she is agreeable. Also noted intention to continue broad- spectrum antibiotic therapy for hospital hospital-acquired pneumonia pending ID evaluation but again her presentation could solely be secondary to Covid. Patient denies fevers, chills, nausea, emesis, abdominal pain, chest pain. Objective: Physical Examination: General: awake, alert, oriented x 3 and cooperative, seated upright in the bedside chair in the Covid unit, no acute distress, notes feeling improved since initial presentation. Skin: normal color, turgor, no icterus, cyanosis. HEENT: AT/NC, EOMI, PERRLA, mildly dry MM. Lungs: Diminished breath sounds, improved since initial presentation per staffing report, greater decreased bases, improved effort, no rales, ronchi or wheezing. Heart: Regular rate and rhythm, currently appears in sinus rhythm; no gallop, rub audible. Abdomen: soft, obese, NTTP, ND, normal BS. Extremities: no cyanosis, clubbing, or edema. Neurological: patient awake, alert, oriented as noted; cognitive function intact; pupils equally reactive to light and accomodation; cranial nerves II-XII grossly normal, moving all 4 extremities, no focal deficits, strength improving, moderately to severely globally decreased secondary to acute presentation. Psychiatric: affect appears fatigued but more alert and interactive, no acute evidence of depressive or anxiety feelings. Vitals/I&O's: Vital Signs Temp Pulse Resp BP Pulse Ox 96.9 F L 63 19 H 124/57 H 94 03/26/20 06:00 03/26/20 06:00 03/26/20 06:00 03/26/20 06:00 03/26/20 06:00 Oxygen Flow Rate (L/min) 3 Oxygen Delivery Method Nasal Cannula Weight: 171 lb 8.314 oz Body Mass Index (BMI) 33.5 Intake and Output for Last 24 Hours 03/24/20 03/25/20 03/26/20 23:59 23:59 23:59 Intake Total 792.5 / 792.5 1003.33 / 1003.33 Output Total 0 / 0 175 / 175 Balance 792.5 / 792.5 828.33 / 828.33 Microbiology Past 72 Hours 03/26/20 02:40 Urine, Random Streptococcus pneumoniae Antigen (M - Final 03/26/20 02:40 Urine, Random Legionella Antigen - Final 03/25/20 20:07 Interface Orders Respiratory Panel (PCR) - Final Laboratory Results 03/25/20 14:54: WBC 10.7, RBC 3.64 L, Hgb 10.9 L, Hct 34.0 L, MCV 93.4, MCH 29.9, MCHC 32.1, RDW Std Deviation 47.9 H, RDW Coeff of Leatha 14.0, Plt Count 155, MPV 12.1 H, Immature Gran % (Auto) 0.800, Neut % (Auto) 86.2 H, Lymph % (Auto) 6.9 L, [place] % (Auto) 6.0, Eos % (Auto) 0.0, Baso % (Auto) 0.1, Absolute Neuts (auto) 9.2 H, Absolute Lymphs (auto) 0.74 L, Nucleated RBC % 0 03/25/20 14:54: Sodium 141, Potassium 3.6, Chloride 109 H, Carbon Dioxide 26.0, Anion Gap 6, BUN 40 H, Creatinine 1.49 H, Estim Creat Clear Calc 23.66, Est GFR (MDRD) Af Amer 43 L, Est GFR (MDRD) Non-Af 36 L, BUN/Creatinine Ratio 26.8 H, Glucose 113 H, Calcium 8.8, Troponin I 0.286 H 03/25/20 14:54: Lactic Acid 1.8 03/25/20 14:54: Fibrinogen 651 H, D-Dimer Quant (PE/DVT) 1.60 H* 03/25/20 14:54: Lactate Dehydrogenase 569 H, Total Creatine Kinase 111 03/25/20 14:54: B-Natriuretic Peptide 2192.9 H 03/25/20 14:54: Magnesium 2.2 03/25/20 14:54: Procalcitonin 0.66 H 03/26/20 02:40: Urine Color Yellow, Urine Clarity Sl. Cloudy, Urine pH 5.0, Ur Specific [place] 1.020, Urine Protein 100 H, Urine Glucose (UA) Normal, Urine Ketones Negative, Urine Occult Blood 25 H, Urine Nitrite Negative, Urine Bilirubin Negative, Urine Urobilinogen Normal, Ur Leukocyte Esterase 25 H, Urine RBC 0-5 SEEN, Urine WBC 5-10 SEEN, Ur Squamous Epith Cells 0 SEEN, Ur Transition Epith Cell 0-5 SEEN, Amorphous Sediment 1+, Urine Bacteria 2+, Coarse Granular Casts 0-5 SEEN, Urine Mucus 0 SEEN 03/26/20 05:56: WBC 8.8, RBC 3.46 L, Hgb 10.5 L, Hct 35.3 L, MCV 102.0 H D, MCH 30.3, MCHC 29.7 L D, RDW Std Deviation 52.3 H, RDW Coeff of Leatha 14.0, Plt Count 117 L, MPV 12.5 H, Immature Gran % (Auto) 0.900, Neut % (Auto) 85.4 H, Lymph % (Auto) 8.2 L, [place] % (Auto) 5.4, Eos % (Auto) 0.0, Baso % (Auto) 0.1, Absolute Neuts (auto) 7.5, Absolute Lymphs (auto) 0.72 L, Nucleated RBC % 0 03/26/20 05:56: Sodium 140, Potassium 3.7, Chloride 112 H, Carbon Dioxide 21.0, Anion Gap 7, BUN 45 H, Creatinine 1.46 H, Estim Creat Clear Calc 20.97, Est GFR (MDRD) Af Amer 44 L, Est GFR (MDRD) Non-Af 36 L, BUN/Creatinine Ratio 30.8 H, Glucose 124 H, Calcium 8.5, Total Bilirubin 0.80, AST 56 H, ALT 32, Alkaline Phosphatase 69, Total Protein 6.4, Albumin 2.2 L, Globulin 4.2, Albumin/Globulin Ratio 0.5 L, TSH 0.11 L Current Medications Acetaminophen (Acetaminophen 325 Mg Tablet) 650 mg PO Q6H PRN PRN PRN Reason: Pain Score 1-10/Temp > 100.7 F Al Hydroxide/Mg Hydroxide (Mag Hydrox/Al Hydrox/Simeth 30 Ml Udc) 30 ml PO Q6H PRN PRN PRN Reason: Gastric Burning Albuterol Sulfate (Albuterol Sulfate 8 Gm Inhaler (60 Puffs)) 1 puff INHALATION Q2H PRN PRN PRN Reason: Shortness of Breath/Wheezing Amiodarone HCl (Amiodarone 200 Mg Tablet) 100 mg PO DAILY [facility] Amlodipine Besylate (Amlodipine 2.5 Mg Tablet) 2.5 mg PO DAILY [facility] Apixaban (Apixaban 5 Mg Tablet) 5 mg PO BID [facility] Last Admin: 03/25/20 20:53 Dose: 5 mg Documented by: Clopidogrel Bisulfate (Clopidogrel Bisulfate 75 Mg Tablet) 75 mg PO DINNER [facility] Furosemide (Furosemide 40 Mg/4 Ml Vial) 40 mg IV BID@1000,1800 [facility] Guaifenesin (Guaifenesin 1,200 Mg Tablet) 1,200 mg PO BID [facility] Last Admin: 03/25/20 20:49 Dose: 1,200 mg Documented by: Hydralazine HCl (Hydralazine 20 Mg/Ml Vial) 10 mg IV Q4H PRN PRN PRN Reason: SBP > 160 Piperacillin Sod/Tazobactam (Sod 3.375 gm/ Sodium Chloride) 50 mls @ 12.5 mls/hr IV Q8 [facility] Last Admin: 03/26/20 05:41 Dose: 12.5 mls/hr Documented by: Vancomycin IV Pharmacy to Dose (1 ea/ Sodium Chloride) 500 mls @ 250 mls/hr IV DAILY PRN; Protocol PRN Reason: RX to dose Vancomycin HCl 750 mg/ Sodium (Chloride) 265 mls @ 250 mls/hr IV Q24H [facility] Levothyroxine Sodium (Levothyroxine 125 Mcg Tablet) 125 mcg PO DAILY [facility] Lisinopril (Lisinopril 10 Mg Tablet) 10 mg PO DAILY [facility] Melatonin (Melatonin 3 Mg Tablet) 3 mg PO QHS PRN PRN PRN Reason: INSOMNIA Metoprolol Tartrate (Metoprolol Tartrate 25 Mg Tablet) 12.5 mg PO BID [facility] Last Admin: 03/25/20 20:49 Dose: 12.5 mg Documented by: Miscellaneous Information (Inhaler, Assist Devices 1 Each Spacer) 1 each INHALATION Q2H PRN PRN PRN Reason: Albuterol MDI Morphine Sulfate (Morphine 2 Mg/Ml Syringe) 2 mg IV Q3H PRN PRN PRN Reason: Pain Score 6-10 Nitroglycerin (Nitroglycerin (Inpatient Use) 0.4 Mg Tab.Subl) 0.4 mg SUBLINGUAL Q5M PRN PRN Reason: CARDIAC/CHEST PAIN Pantoprazole Sodium (Pantoprazole Sodium 20 Mg Tablet) 20 mg PO DAILY [facility] Prochlorperazine Edisylate (Prochlorperazine 10 Mg/2 Ml Vial) 5 mg IV Q4H PRN PRN PRN Reason: Breakthrough nausea/vomiting Senna/Docusate Sodium (Senna/Docusate Sodium 1 Tablet) 2 tablet PO BID PRN PRN PRN Reason: Constipation Sodium Chloride (0.9% Saline Lock 10 Ml Syringe) 10 - 40 ml IV UD PRN PRN Reason: SALINE FLUSH Last Admin: 03/26/20 05:41 Dose: 10 ml Documented by: STROKE Vital Signs/Narrative: Vital Signs Temp Pulse Resp BP Pulse Ox 03/26/20 06:00 96.9 F L 63 19 H 124/57 H 94 03/26/20 04:20 96.3 F L 64 22 H 107/53 L 97 Medical Necessity - Tobacco Use Smoking Status: Never smoker Tobacco Use: Non-smoker Assessment/Plan All Active Problems (Last Reviewed 03/05/20 @ 10:00 by Montserrat Villa PA, PA) COVID-19 (Acute) H/O coronary artery bypass surgery (Resolved 01/2016) Atypical chest pain (Resolved) The patient is an 85 y/o F w/ PMHx: Chronically elevated troponins, CKD stage III, Hypothyroidism, CAD s/p CABG x 2 VALERIO-LAD, 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 1. Acute Hypoxic Respiratory Failure secondary to Bilateral Pneumonia secondary to Acute Viral Syndrome, COVID-19, Possibly concurrent HCAP: Work-up in the ED included T101, heart rate 130 initially, BP 136/77, respiratory rate 27, 88% on room air with improvement to 96% on 2 L nasal cannula, CBC with WC 10.7, hemoglobin 10.9, platelet 155 with left shift and lymphopenia, BMP with chloride 109, BUN/creatinine 40/1.49, glucose 113, lactic acid 1.8, troponin 0.286, CXR with progression of BL pulmonary infiltrates, initial EKG with atrial fibrillation with RVR. In the ED patient administered Zosyn, vancomycin, Decadron therapy. Admitted to the COVID unit given worsening status, maintained on oxygen with wean as tolerated to room air, PRN albuterol, HOB, IS parameters w/ pending sputum cultures, respiratory viral panel and urine antigens negative, D-dimer 1.60 currently anticoagulated thus will review CTPA considerations with ID, BNP 2192.9, LDH 569, procalcitonin 0.66, TCK 111, trop 0.286 with trending as noted, continue supportive care including q 2 hour, Infectious disease consulted, will continue with plan for completion of patient total 10 days of decadron, continue IV vanc and zosyn pending ID input concurrently although suspect progressing COVID disease, overnight IV lasix 40 mg x 1 administered, will continue 40 mg IV BID while closely monitoring her renal function and holding her oral lasix as suspect more likely etiology for her worsening status. 2. PAF with RVR: Patient upon ED arrival with EKG with atrial fibrillation with RVR with nonspecific ST changes likely secondary to acute presentation as noted #1, improved following admisison and treatment #1, will maintain on telemetry, will cardiac enzymes, magnesium level obtained, continued on amiodarone, Eliquis and metoprolol therapy with increased dosage and continue treatment of #1. 3. Acute on Chronically Elevated Troponins likely secondary to Demand Ischemic secondary to #1, #2: Admission troponin 0.286, prior 03/13/20 0.108; however, 06/30/2017 0.219, maintained on telemetry, will continue to cycle cardiac enzymes, mag normal, TSH low with pending FT4. 4. Takotsubo cardiomyopathy: Continue home eliquis, Lasix, lisinopril, metoprolol regimen, not on statin therapy, defer to outpatient. 03/24/2018 echocardiogram with normal LV size, normal LV systolic function, EF 55%, stage III diastolic dysfunction, mild LUX with bioprosthetic aortic valve. 5. 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 Most recent echo as noted. 6. CKD stage III: Admission BUN/Cr 40/1.49, baseline Cr appears primarily 1.4- 1.6, 03/26/20 BUN/Cr 45/1.46, will repeat BMP in AM. 7. Hypothyroidism: Continue home synthroid regimen, TSH low, FT4 pending. 8. Chronic anemia: Admission Hgb 10.9, baseline appears 10-11, stable, continue to trend. 9. PUD: We will continue patient home PPI. 10. DVT Prophylaxis: SCDs, continue home eliquis regimen. 11. CODE status: DNR-CCA, no intubation status. Inpatient E&M: 20176 Subs Hosp L3
[2020-03-26 07:37] LABS: T4 Free Direct 1.67 ng/dL (0.76-1.46)
--- NOTE | 2020-03-26 08:29 | CASEMGMT ---
Addendum entered by Jacky Wyatt 03/26/20 11:33: -Call from Matthew @ Replaced by [facility] . States is being seen by their agency and would like to use same if needed. -PH: - FX: [phone] Original Note: RN CM Readmission Note Previous Admission Date:03/13/20-03/15/20 Diagnosis: COVID 19 DC Disposition: Home. No oxygen or PT/OT was recommended. ED VISIT: 03/22/20. CXR was negative and patient was given inhaler and dc'd home. Current Admission: Diagnosis: COVID 19 pneumonia, hypoxia Pt returned to ED with c/o hypoxia, fever, productive sputum. CXR shows progressive bilateral pulmonary infiltrates from last CXR. Pt started on Zosyn and Vancomycin. Oxygen requirements: 3-4L NC. PT/OT ordered. DC PLAN: TBD. PT/OT evals pending and will follow for discharge needs. Juanita CHOW RN ACM
[2020-03-26] MEDS: Pantoprazole Sodium 20 MG Tablet PO (09:54)
[2020-03-26] MEDS: Amiodarone 200 MG Tablet 100 MG PO (09:54)
[2020-03-26] MEDS: guaiFENesin 1,200 MG Tablet 1200 MG PO ×2 (09:54→21:05)
[2020-03-26] MEDS: Metoprolol Tartrate 25 MG Tablet 12.5 MG PO ×2 (09:54→21:04)
[2020-03-26] MEDS: APIXABAN 5 MG TABLET PO ×2 (09:54→21:04)
[2020-03-26] MEDS: Levothyroxine 125 MCG Tablet PO (09:57)
[2020-03-26] MEDS: amLODIPine 2.5 MG Tablet PO (10:02)
[2020-03-26] MEDS: Lisinopril 10 MG Tablet PO (12:25)
[2020-03-26] MEDS: HYDROcodone Bitartrate/Apap 5/325 Tablet PO (14:38)
--- NOTE | 2020-03-26 15:42 | PCM.HP.ID ---
Problem List (1) COVID-19 Status: Acute Reason for Consult: covid Consulted by: Dr. Carpenter History of Present Illness: The patient is a 85 year old F admitted with covid and hypoxia at end of February, treated with 3 days of remdesivir, discharged home 03/15 to complete course of dex. Now with several days of progressive dyspnea and yepez colored sputum. No chest pain, no n/v/d. also had covid, is recovering. Came to ED, fever to 101, admitted on zosyn and vanc. Full ROS performed and neg except as noted above. 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) Nonrheumatic aortic valve insufficiency (Chronic) Nonrheumatic mitral (valve) insufficiency (Chronic) Secondary pulmonary arterial hypertension (Chronic) Paroxysmal atrial fibrillation (Chronic) Takotsubo cardiomyopathy (Chronic) Atherosclerosis of coronary artery of [place] heart without angina pectoris (Chronic) CABG x 2 VALERIO-LAD, 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/2015 History of aortic valve replacement with bioprosthetic valve (Chronic 01/2016) Allergies/Adverse Reactions: Allergies atorvastatin [From Lipitor] Adverse Reaction (Verified 03/22/20 09:17) Pain in joints niacin Adverse Reaction (Verified 03/22/20 09:17) Pain in joints pregabalin [From Lyrica] Adverse Reaction (Verified 03/25/20 16:20) leg pain simvastatin [From Zocor] Adverse Reaction (Verified 03/22/20 09:17) Pain in joints Home Medications: Ambulatory Orders Medication Instructions Recorded Nitroglycerin (INPATIENT USE) 0.4 mg SUBLINGUAL Q5M PRN 02/24/16 [Nitrostat] levothyroxine 125 mcg tablet 125 mcg PO DAILY #30 tab 11/14/18 metoprolol tartrate 25 mg tablet 12.5 mg PO BID tab 12/31/19 hydrocodone 5 mg-acetaminophen 300 1 tab PO Q6H PRN 02/29/20 mg tablet amiodarone 200 mg tablet 100 mg PO DAILY tab 03/05/20 amlodipine 2.5 mg tablet 2.5 mg PO DAILY tab 03/05/20 Clopidogrel Bisulfate [Clopidogrel] 75 mg PO DINNER 03/13/20 Furosemide 40 mg PO BID 03/13/20 Lisinopril [Prinivil] 10 mg PO DAILY 03/13/20 Omeprazole 20 mg PO DAILY 03/13/20 Apixaban [Eliquis] 5 mg PO BID 03/25/20 - Social History Tobacco Use: non-smoker Vital Signs Temp Pulse Resp BP Pulse Ox 96.9 F L 91 20 H 106/59 L 93 03/26/20 14:44 03/26/20 14:44 03/26/20 14:44 03/26/20 14:44 03/26/20 14:44 Oxygen Flow Rate (L/min) 4 Oxygen Delivery Method Nasal Cannula Weight: 77.8 kg Body Mass Index (BMI) 33.5 Microbiology Past 72 Hours 03/26/20 02:40 Streptococcus pneumoniae Antigen (M - Final Urine, Random 03/26/20 02:40 Legionella Antigen - Final Urine, Random 03/25/20 20:07 Respiratory Panel (PCR) - Final Interface Orders Laboratory Tests Past 24 Hrs 03/25/20 03/25/20 03/25/20 14:54 14:54 14:54 WBC RBC Hgb Hct MCV MCH MCHC RDW Std Deviation RDW Coeff of Leatha Plt Count MPV Immature Gran % (Auto) Neut % (Auto) Lymph % (Auto) [place] % (Auto) Eos % (Auto) Baso % (Auto) Absolute Neuts (auto) Absolute Lymphs (auto) Nucleated RBC % Fibrinogen 651 H D-Dimer Quant (PE/DVT) 1.60 H* Sodium Potassium Chloride Carbon Dioxide Anion Gap BUN Creatinine Estim Creat Clear Calc Est GFR (MDRD) Af Amer Est GFR (MDRD) Non-Af BUN/Creatinine Ratio Glucose Calcium Magnesium Total Bilirubin AST ALT Alkaline Phosphatase Lactate Dehydrogenase 569 H Total Creatine Kinase 111 Troponin I B-Natriuretic Peptide 2192.9 H Total Protein Albumin Globulin Albumin/Globulin Ratio Procalcitonin TSH Free T4 Urine Color Urine Clarity Urine pH Ur Specific [place] Urine Protein Urine Glucose (UA) Urine Ketones Urine Occult Blood Urine Nitrite Urine Bilirubin Urine Urobilinogen Ur Leukocyte Esterase Urine RBC Urine WBC Ur Squamous Epith Cells Ur Transition Epith Cell Amorphous Sediment Urine Bacteria Coarse Granular Casts Urine Mucus 03/25/20 03/25/20 03/26/20 14:54 14:54 02:40 WBC RBC Hgb Hct MCV MCH MCHC RDW Std Deviation RDW Coeff of Leatha Plt Count MPV Immature Gran % (Auto) Neut % (Auto) Lymph % (Auto) [place] % (Auto) Eos % (Auto) Baso % (Auto) Absolute Neuts (auto) Absolute Lymphs (auto) Nucleated RBC % Fibrinogen D-Dimer Quant (PE/DVT) Sodium Potassium Chloride Carbon Dioxide Anion Gap BUN Creatinine Estim Creat Clear Calc Est GFR (MDRD) Af Amer Est GFR (MDRD) Non-Af BUN/Creatinine Ratio Glucose Calcium Magnesium 2.2 Total Bilirubin AST ALT Alkaline Phosphatase Lactate Dehydrogenase Total Creatine Kinase Troponin I B-Natriuretic Peptide Total Protein Albumin Globulin Albumin/Globulin Ratio Procalcitonin 0.66 H TSH Free T4 Urine Color Yellow Urine Clarity Sl. Cloudy Urine pH 5.0 Ur Specific [place] 1.020 Urine Protein 100 H Urine Glucose (UA) Normal Urine Ketones Negative Urine Occult Blood 25 H Urine Nitrite Negative Urine Bilirubin Negative Urine Urobilinogen Normal Ur Leukocyte Esterase 25 H Urine RBC 0-5 SEEN Urine WBC 5-10 SEEN Ur Squamous Epith Cells 0 SEEN Ur Transition Epith Cell 0-5 SEEN Amorphous Sediment 1+ Urine Bacteria 2+ Coarse Granular Casts 0-5 SEEN Urine Mucus 0 SEEN 03/26/20 03/26/20 03/26/20 05:56 05:56 05:56 WBC 8.8 RBC 3.46 L Hgb 10.5 L Hct 35.3 L MCV 102.0 H D MCH 30.3 MCHC 29.7 L D RDW Std Deviation 52.3 H RDW Coeff of Leatha 14.0 Plt Count 117 L MPV 12.5 H Immature Gran % (Auto) 0.900 Neut % (Auto) 85.4 H Lymph % (Auto) 8.2 L [place] % (Auto) 5.4 Eos % (Auto) 0.0 Baso % (Auto) 0.1 Absolute Neuts (auto) 7.5 Absolute Lymphs (auto) 0.72 L Nucleated RBC % 0 Fibrinogen D-Dimer Quant (PE/DVT) Sodium 140 Potassium 3.7 Chloride 112 H Carbon Dioxide 21.0 Anion Gap 7 BUN 45 H Creatinine 1.46 H Estim Creat Clear Calc 20.97 Est GFR (MDRD) Af Amer 44 L Est GFR (MDRD) Non-Af 36 L BUN/Creatinine Ratio 30.8 H Glucose 124 H Calcium 8.5 Magnesium Total Bilirubin 0.80 AST 56 H ALT 32 Alkaline Phosphatase 69 Lactate Dehydrogenase Total Creatine Kinase Troponin I B-Natriuretic Peptide Total Protein 6.4 Albumin 2.2 L Globulin 4.2 Albumin/Globulin Ratio 0.5 L Procalcitonin TSH 0.11 L Free T4 1.67 H Urine Color Urine Clarity Urine pH Ur Specific [place] Urine Protein Urine Glucose (UA) Urine Ketones Urine Occult Blood Urine Nitrite Urine Bilirubin Urine Urobilinogen Ur Leukocyte Esterase Urine RBC Urine WBC Ur Squamous Epith Cells Ur Transition Epith Cell Amorphous Sediment Urine Bacteria Coarse Granular Casts Urine Mucus 03/26/20 03/26/20 03/26/20 08:14 11:00 13:59 WBC RBC Hgb Hct MCV MCH MCHC RDW Std Deviation RDW Coeff of Leatha Plt Count MPV Immature Gran % (Auto) Neut % (Auto) Lymph % (Auto) [place] % (Auto) Eos % (Auto) Baso % (Auto) Absolute Neuts (auto) Absolute Lymphs (auto) Nucleated RBC % Fibrinogen D-Dimer Quant (PE/DVT) Sodium Potassium Chloride Carbon Dioxide Anion Gap BUN Creatinine Estim Creat Clear Calc Est GFR (MDRD) Af Amer Est GFR (MDRD) Non-Af BUN/Creatinine Ratio Glucose Calcium Magnesium Total Bilirubin AST ALT Alkaline Phosphatase Lactate Dehydrogenase Total Creatine Kinase Troponin I 0.181 H 0.148 H 0.148 H B-Natriuretic Peptide Total Protein Albumin Globulin Albumin/Globulin Ratio Procalcitonin TSH Free T4 Urine Color Urine Clarity Urine pH Ur Specific [place] Urine Protein Urine Glucose (UA) Urine Ketones Urine Occult Blood Urine Nitrite Urine Bilirubin Urine Urobilinogen Ur Leukocyte Esterase Urine RBC Urine WBC Ur Squamous Epith Cells Ur Transition Epith Cell Amorphous Sediment Urine Bacteria Coarse Granular Casts Urine Mucus - Other Studies Radiology: [] Other Studies: [] Route of nutrition/ use of supplements: [] Nutritional Intake: [] IV Site: [] Hudson Catheter: [] - Physical Exam General: Alert, Oriented x3, Cooperative, No apparent distress HEENT: Atraumatic, PERRLA, EOMI Neck: Supple, No Nodes Lungs: Clear to auscultation, Diminished Cardiovascular: Regular rate, Regular Rhythm Abdomen: Soft, Non Tender, Non-Distended Extremities: No edema Skin: No rashes IV Site: Peripheral, without redness Musculoskeletal: No Tenderness to Palpation of Joints or Extremities Neurological: Cranial nerves II-XII grossly intact - Assessment/Plan Antibiotics: [] Assessment/Plan: [] Active and Suspected Problems (Last Reviewed 03/05/20 @ 10:00 by Montserrat Villa PA, PA) COVID-19 (Acute) Recent severe covid, now with fever, dyspnea, and yepez sputum. Will order sputum cx. Concern for CAP. Will stop vanc, cont zosyn for now. BNP was elevated. PCT 0.66. Will follow, thank you, d/w Dr. Carpenter yesterday
--- NOTE | 2020-03-26 16:44 | CHAPLAIN ---
Type of Pastoral Visit ___ Initial Visit ___ Follow-up Visit ___ On-call Visit ___ General Patient Visit ___ Spiritual Assessment ___ Family Conference ___ Bereavement ___ Rapid Response ___ Code Blue _x__ Other (describe below) Pastoral Care Referral From _x__ Patient ___ Family ___ Nurse ___ Physician ___ Health Editor ___ Systems Trainer ___ Other (describe below) Sacrament/Intervention _x__ Active listening ___ Anointing ___ Yazidi ___ Bereavement ___ Communion ___ Shireen exploration ___ ___ Life review _x__ Prayer ___ Reconciliation ___ Sacrament of Sick ___ Supportive presence ___ Wedding ___ Other (describe below) Pastoral Comments phone call made into this isolation room; pt was seeking spiritual support and prayer; pt states she is better today but seeks prayer to overcome her illness which has lingered now for some time; pt is of the Hinduism shireen
[2020-03-26] MEDS: Clopidogrel Bisulfate 75 MG Tablet PO (17:43)
[2020-03-26] MEDS: MELATONIN 3 MG TABLET PO (21:05)
[2020-03-27] VITALS (15 sets, daily range): BP systolic 94–127; BP diastolic 45–89; PULSE 63–83; RESP 18–20; TEMP 36.4–36.6; O2SAT 83–99
[2020-03-27 06:39] LABS: Absolute Lymphocyte Count 0.82 X10^3/uL (0.83-4.51); Absolute Neutrophil Count 11.1 X10^3/uL (2.0-7.7); Basophil# 0.01 X10^3/uL; Basophil% 0.1 % (0-1); Eosinophil# 0.01 X10^3/uL; Eosinophils% 0.1 % (0-5); Lymphocyte # 0.82 X10^3/ul (4.0); Lymphocyte % 6.5 % (19-41); Mean Corp Hgb Conc 30.3 g/dL (32-36); Mean Corpuscular Hgb 28.5 pg (27.0-32.0); Mean Platelet Vol. 12.4 fl (6.2-12.0); Monocyte# 0.65 X10^3/uL; Monocyte% 5.1 % (0-10); NRBC Flagged by Analyzer 0 % (0-5); Neutrophil % 87.6 % (47-70); Platelet Count 125 K/mm3 (150-450); RBC Distribution Width CV 13.8 % (11.6-14.6); RBC Distribution Width SD 47.8 fl (35.1-43.9); Red Blood Count 3.51 M/mm3 (4.2-5.4); White Blood Count 12.7 K/mm3 (4.4-11.0)
[2020-03-27 07:05] LABS: ALB/GLOB Ratio 0.5 RATIO (0.9-2.4); AST(SGOT) 74 U/L (15-37); Alanine Aminotransfer ALT/SGPT 51 U/L (13-56); Albumin, Serum 2.1 g/dL (3.2-5.0); Alkaline Phosphatase 78 U/L (45-117); Anion Gap 7 (5-15); BUN 58 mg/dL (7-18); BUN/Creat Ratio 36.7 RATIO (10-20); Calcium,Total 8.5 mg/dL (8.5-10.1); Chloride 106 mmol/L (98-107); Creatinine, Serum 1.58 mg/dL (0.55-1.02); EST Glomerular Filtration Rate 33 mL/min (>60); Est Glom Filt Rate - Afr Amer 40 mL/min (>60); Estimated Creatinine Clearance 19.38 ml/min; Glucose 109 mg/dL (74-106); Potassium 3.3 mmol/L (3.5-5.1); Protein, Total 6.1 g/dL (6.4-8.2); Sodium Level 139 mmol/L (136-145)
--- NOTE | 2020-03-27 07:30 | PCS.PANDOC ---
PANDEMIC DOCUMENTATION INITIATED: Date: 01/21/2020 Time:
--- NOTE | 2020-03-27 07:41 | PCM.PN.HOSP ---
Patient Problems: Active and Suspected Problems (Last Reviewed 03/05/20 @ 10:00 by Montserrat MOELLER, PA) COVID-19 (Acute) Subjective: Patient overnight with onset loose stools with abdominal cramping with currently C. difficile pending but likely secondary to either antibiotic therapy or patient's Covid viral syndrome although several days out now therefore higher suspicion secondary to antibiotic therapy. Patient does note that her breathing has improved although renal function did alter and IV Lasix was discontinued with transition back starting 03/27/2020 evening to patient's oral Lasix therapy. Patient did have ambulatory oxygenation trial and was significantly hypoxic requiring greater than 6 L to even maintain appropriate saturations with activity. Patient denies fevers, chills, nausea, emesis, chest pain. Objective: Physical Examination: General: awake, alert, oriented x 3 and cooperative, seated upright in the bedside chair in the Covid unit, notes no diarrhea since earlier in the morning. Skin: normal color, turgor, no icterus, cyanosis. HEENT: AT/NC, EOMI, PERRLA, MMM. Lungs: Diminished breath sounds, improved air movement especially bases, improved effort; however, patient was significantly dyspneic with ambulatory trial, no rales, ronchi or wheezing. Heart: Regular rate and rhythm, currently sinus rhythm; no gallop, rub audible. Abdomen: soft, obese, NTTP, ND, normal BS. Extremities: no cyanosis, clubbing, or edema. Neurological: patient awake, alert, oriented as noted; cognitive function intact; pupils equally reactive to light and accomodation; cranial nerves II-XII grossly normal, moving all 4 extremities, no focal deficits, strength improving, moderately to severely globally decreased secondary to acute presentation. Psychiatric: affect appears less fatigued, more normal, no acute evidence of depressive or anxiety feelings. Vitals/I&O's: Vital Signs Temp Pulse Resp BP Pulse Ox 97.7 F L 72 18 115/70 95 03/27/20 02:53 03/27/20 07:21 03/27/20 02:53 03/27/20 02:53 03/27/20 02:53 Oxygen Flow Rate (L/min) 3 Oxygen Delivery Method Nasal Cannula Weight: 171 lb 8.314 oz Body Mass Index (BMI) 33.5 Intake and Output for Last 24 Hours 03/25/20 03/26/20 03/27/20 23:59 23:59 23:59 Intake Total 792.5 / 792.5 1603.33 / 1603.33 50 / 50 Output Total 0 / 0 775 / 775 700 / 700 Balance 792.5 / 792.5 828.33 / 828.33 -650 / -650 Microbiology Past 72 Hours 03/26/20 02:40 Urine, Random Streptococcus pneumoniae Antigen (M - Final 03/26/20 02:40 Urine, Random Legionella Antigen - Final 03/25/20 20:07 Interface Orders Respiratory Panel (PCR) - Final Laboratory Results 03/26/20 08:14: Troponin I 0.181 H 03/26/20 11:00: Troponin I 0.148 H 03/26/20 13:59: Troponin I 0.148 H 03/27/20 06:15: WBC 12.7 H, RBC 3.51 L, Hgb 10.0 L, Hct 33.0 L, MCV 94.0 D, MCH 28.5, MCHC 30.3 L, RDW Std Deviation 47.8 H, RDW Coeff of Leatha 13.8, Plt Count 125 L, MPV 12.4 H, Immature Gran % (Auto) 0.600, Neut % (Auto) 87.6 H, Lymph % (Auto) 6.5 L, [place] % (Auto) 5.1, Eos % (Auto) 0.1, Baso % (Auto) 0.1, Absolute Neuts (auto) 11.1 H, Absolute Lymphs (auto) 0.82 L, Nucleated RBC % 0 03/27/20 06:15: Sodium 139, Potassium 3.3 L, Chloride 106, Carbon Dioxide 26.0, Anion Gap 7, BUN 58 H, Creatinine 1.58 H, Estim Creat Clear Calc 19.38, Est GFR (MDRD) Af Amer 40 L, Est GFR (MDRD) Non-Af 33 L, BUN/Creatinine Ratio 36.7 H, Glucose 109 H, Calcium 8.5, Total Bilirubin 0.70, AST 74 H, ALT 51, Alkaline Phosphatase 78, Total Protein 6.1 L, Albumin 2.1 L, Globulin 4.0, Albumin/Globulin Ratio 0.5 L Current Medications Acetaminophen (Acetaminophen 325 Mg Tablet) 650 mg PO Q6H PRN PRN PRN Reason: Pain Score 1-10/Temp > 100.7 F Hydrocodone Bitart/Acetaminophen (Hydrocodone Bitartrate/Apap 5/325 Tablet) 1 tablet PO Q6H PRN PRN PRN Reason: Pain Score 4-10 Last Admin: 03/26/20 14:38 Dose: 1 tablet Documented by: Al Hydroxide/Mg Hydroxide (Mag Hydrox/Al Hydrox/Simeth 30 Ml Udc) 30 ml PO Q6H PRN PRN PRN Reason: Gastric Burning Albuterol Sulfate (Albuterol Sulfate 8 Gm Inhaler (60 Puffs)) 1 puff INHALATION Q2H PRN PRN PRN Reason: Shortness of Breath/Wheezing Amiodarone HCl (Amiodarone 200 Mg Tablet) 100 mg PO DAILY [facility] Last Admin: 03/26/20 09:54 Dose: 100 mg Documented by: Amlodipine Besylate (Amlodipine 2.5 Mg Tablet) 2.5 mg PO DAILY [facility] Last Admin: 03/26/20 10:02 Dose: 2.5 mg Documented by: Apixaban (Apixaban 5 Mg Tablet) 5 mg PO BID [facility] Last Admin: 03/26/20 21:04 Dose: 5 mg Documented by: Clopidogrel Bisulfate (Clopidogrel Bisulfate 75 Mg Tablet) 75 mg PO DINNER [facility] Last Admin: 03/26/20 17:43 Dose: 75 mg Documented by: Furosemide (Furosemide 40 Mg/4 Ml Vial) 40 mg IV BID@1000,1800 [facility] Last Admin: 03/26/20 17:43 Dose: 40 mg Documented by: Guaifenesin (Guaifenesin 1,200 Mg Tablet) 1,200 mg PO BID [facility] Last Admin: 03/26/20 21:05 Dose: 1,200 mg Documented by: Hydralazine HCl (Hydralazine 20 Mg/Ml Vial) 10 mg IV Q4H PRN PRN PRN Reason: SBP > 160 Piperacillin Sod/Tazobactam (Sod 3.375 gm/ Sodium Chloride) 50 mls @ 12.5 mls/hr IV Q8 [facility] Last Admin: 03/27/20 05:01 Dose: 12.5 mls/hr Documented by: Levothyroxine Sodium (Levothyroxine 125 Mcg Tablet) 125 mcg PO DAILY [facility] Last Admin: 03/26/20 09:57 Dose: 125 mcg Documented by: Lisinopril (Lisinopril 10 Mg Tablet) 10 mg PO DAILY [facility] Last Admin: 03/26/20 12:25 Dose: 10 mg Documented by: Melatonin (Melatonin 3 Mg Tablet) 3 mg PO QHS PRN PRN PRN Reason: INSOMNIA Last Admin: 03/26/20 21:05 Dose: 3 mg Documented by: Metoprolol Tartrate (Metoprolol Tartrate 25 Mg Tablet) 12.5 mg PO BID [facility] Last Admin: 03/26/20 21:04 Dose: 12.5 mg Documented by: Miscellaneous Information (Inhaler, Assist Devices 1 Each Spacer) 1 each INHALATION Q2H PRN PRN PRN Reason: Albuterol MDI Morphine Sulfate (Morphine 2 Mg/Ml Syringe) 2 mg IV Q3H PRN PRN PRN Reason: Pain Score 6-10 Nitroglycerin (Nitroglycerin (Inpatient Use) 0.4 Mg Tab.Subl) 0.4 mg SUBLINGUAL Q5M PRN PRN Reason: CARDIAC/CHEST PAIN Pantoprazole Sodium (Pantoprazole Sodium 20 Mg Tablet) 20 mg PO DAILY [facility] Last Admin: 03/26/20 09:54 Dose: 20 mg Documented by: Prochlorperazine Edisylate (Prochlorperazine 10 Mg/2 Ml Vial) 5 mg IV Q4H PRN PRN PRN Reason: Breakthrough nausea/vomiting Senna/Docusate Sodium (Senna/Docusate Sodium 1 Tablet) 2 tablet PO BID PRN PRN PRN Reason: Constipation Sodium Chloride (0.9% Saline Lock 10 Ml Syringe) 10 - 40 ml IV UD PRN PRN Reason: SALINE FLUSH Last Admin: 03/26/20 05:41 Dose: 10 ml Documented by: STROKE Vital Signs/Narrative: Vital Signs Pulse 03/27/20 07:21 72 03/27/20 03:55 63 Medical Necessity - Tobacco Use Smoking Status: Never smoker Tobacco Use: Non-smoker Assessment/Plan All Active Problems (Last Reviewed 03/05/20 @ 10:00 by Montserrat MOELLER, PA) COVID-19 (Acute) H/O coronary artery bypass surgery (Resolved 01/2016) Atypical chest pain (Resolved) The patient is an 85 y/o F w/ PMHx: Chronically elevated troponins, CKD stage III, Hypothyroidism, CAD s/p CABG x 2 VALERIO-LAD, 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 1. Acute Hypoxic Respiratory Failure secondary to Bilateral Pneumonia secondary to Acute Viral Syndrome, COVID-19, Possibly concurrent HCAP: Work-up in the ED included T101, heart rate 130 initially, BP 136/77, respiratory rate 27, 88% on room air with improvement to 96% on 2 L nasal cannula, CBC with WC 10.7, hemoglobin 10.9, platelet 155 with left shift and lymphopenia, BMP with chloride 109, BUN/creatinine 40/1.49, glucose 113, lactic acid 1.8, troponin 0.286, CXR with progression of BL pulmonary infiltrates, initial EKG with atrial fibrillation with RVR. In the ED patient administered Zosyn, vancomycin, Decadron therapy. Admitted to the COVID unit given worsening status, maintained on oxygen with wean as tolerated to room air, PRN albuterol, HOB, IS parameters w/ pending sputum cultures, respiratory viral panel negative and urine antigens negative, D-dimer 1.60 currently anticoagulated thus will review CTPA considerations with ID, BNP 2192.9, LDH 569, procalcitonin 0.66, TCK 111, trop 0.286 with trending as noted, continue supportive care including q 2 hour, Infectious disease consulted and following, completed 10 days of Decadron, initially on IV vancomycin and Zosyn however patient with onset 03/26/2020 diarrhea likely antibiotic therapy therefore transitioned to only Rocephin per infectious disease, patient administered IV Lasix therapy upon presentation 03/26/2020 with clinical improvement and decreased oxygen requirements however 03/27/2020 electrolyte alterations therefore discontinued and transition back to oral home regimen. Blood culture no growth times 48 hours x 2. Initiated also on probiotic for diarrhea likely antibiotic associated. C. difficile was requested if recurrent. 2. PAF with RVR: Patient upon ED arrival with EKG with atrial fibrillation with RVR with nonspecific ST changes likely secondary to acute presentation as noted #1, improved following admission and treatment #1, maintain on cardiac telemetry, cardiac enzymes initially 0.286 with trending continued with improvement--> 0.181--> 0.148x2, magnesium level 2.2, continued on amiodarone, Eliquis and metoprolol therapy with increased dosage and continue treatment of #1. 3. Acute on Chronically Elevated Troponins likely secondary to Demand Ischemic secondary to #1, #2: Admission troponin 0.286, prior 03/13/20 0.108; however, 06/30/2017 0.219, maintained on telemetry, 0.286 with trending continued with improvement--> 0.181--> 0.148 x 2, mag normal, TSH low with pending FT4. 4. Takotsubo cardiomyopathy: Continue home eliquis, Lasix, lisinopril, metoprolol regimen, not on statin therapy, defer to outpatient. 03/24/2018 echocardiogram with normal LV size, normal LV systolic function, EF 55%, stage III diastolic dysfunction, mild LUX with bioprosthetic aortic valve. 5. 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 Most recent echo as noted. 6. CKD stage III: Admission BUN/Cr 40/1.49, baseline Cr appears primarily 1.4-1.6, 03/26/20 BUN/Cr 45/1.46--> 03/27/2020 BUN/creatinine 58/1.58, likely mild increase secondary to IV Lasix usage as noted, resuming home oral regimen, continue to trend CMP. 7. Hypothyroidism: Continue home synthroid regimen, TSH low, FT4 1.67 which was discussed with primary care physician as obtained in the acute setting therefore recommendation for repeat outpatient once acute presentation has resolved which PCP is amenable. 8. Chronic anemia: Admission Hgb 10.9, baseline appears 10-11, 03/27/2020 hemoglobin 10, continue to trend. 9. Hypokalemia: Admission K+ 3.3, supplementation given, repeat level in AM. 10. PUD: We will continue patient home PPI. 11. DVT Prophylaxis: SCDs, continue home eliquis regimen. 12. CODE status: DNR-CCA, no intubation status. Inpatient E&M: 22306 Subs Hosp L2
--- NOTE | 2020-03-27 10:09 | NURSING ---
SPO2 83% on room air at rest SPO2 94% on 3l NC at rest less than 5 minutes on room air with exertion to BSC spo2 85% within a few minutes pt recovered to 94% on 3L while on BSC SPO2 86-88% on 6L NC less than [address] in [address] less than 5 minutes to recover to 95% on 6L nc oxygen post exertion
[2020-03-27] MEDS: Pantoprazole Sodium 20 MG Tablet PO (10:13)
[2020-03-27] MEDS: amLODIPine 2.5 MG Tablet PO (10:13)
[2020-03-27] MEDS: Lisinopril 10 MG Tablet PO (10:13)
[2020-03-27] MEDS: Levothyroxine 125 MCG Tablet PO (10:13)
[2020-03-27] MEDS: guaiFENesin 1,200 MG Tablet 1200 MG PO ×2 (10:14→20:47)
[2020-03-27] MEDS: Metoprolol Tartrate 25 MG Tablet 12.5 MG PO ×2 (10:14→20:47)
[2020-03-27] MEDS: APIXABAN 5 MG TABLET PO ×2 (10:14→20:49)
[2020-03-27] MEDS: Amiodarone 200 MG Tablet 100 MG PO (10:14)
[2020-03-27] MEDS: 0.9% Saline Lock 10 ML Syringe IV (10:15)
--- NOTE | 2020-03-27 10:17 | PCM.PN.ID ---
Patient Problems: Active and Suspected Problems (Last Reviewed 03/05/20 @ 10:00 by Montserrat Villa PA, PA) COVID-19 (Acute) Subjective: Diarrhea this AM, FiO2 up. No fever. - Physical Exam Vitals/I&O's: Vital Signs Temp Pulse Resp BP Pulse Ox 97.9 F 81 18 112/45 L 95 03/27/20 10:12 03/27/20 10:12 03/27/20 10:12 03/27/20 10:12 03/27/20 10:12 Oxygen Flow Rate (L/min) 6 Oxygen Delivery Method Nasal Cannula Weight: 77.8 kg Body Mass Index (BMI) 33.5 Intake and Output for Last 24 Hours 03/25/20 03/26/20 03/27/20 23:59 23:59 23:59 Intake Total 792.5 / 792.5 1603.33 / 1603.33 50 / 50 Output Total 0 / 0 775 / 775 700 / 700 Balance 792.5 / 792.5 828.33 / 828.33 -650 / -650 General: Alert, Cooperative, No apparent distress Lungs: Normal air movement Cardiovascular: Regular rate Skin: No rashes Microbiology Past 72 Hours 03/26/20 02:40 Urine, Random Streptococcus pneumoniae Antigen (M - Final 03/26/20 02:40 Urine, Random Legionella Antigen - Final 03/25/20 20:07 Interface Orders Respiratory Panel (PCR) - Final Laboratory Results 03/26/20 11:00: Troponin I 0.148 H 03/26/20 13:59: Troponin I 0.148 H 03/27/20 06:15: WBC 12.7 H, RBC 3.51 L, Hgb 10.0 L, Hct 33.0 L, MCV 94.0 D, MCH 28.5, MCHC 30.3 L, RDW Std Deviation 47.8 H, RDW Coeff of Leatha 13.8, Plt Count 125 L, MPV 12.4 H, Immature Gran % (Auto) 0.600, Neut % (Auto) 87.6 H, Lymph % (Auto) 6.5 L, [place] % (Auto) 5.1, Eos % (Auto) 0.1, Baso % (Auto) 0.1, Absolute Neuts (auto) 11.1 H, Absolute Lymphs (auto) 0.82 L, Nucleated RBC % 0 03/27/20 06:15: Sodium 139, Potassium 3.3 L, Chloride 106, Carbon Dioxide 26.0, Anion Gap 7, BUN 58 H, Creatinine 1.58 H, Estim Creat Clear Calc 19.38, Est GFR (MDRD) Af Amer 40 L, Est GFR (MDRD) Non-Af 33 L, BUN/Creatinine Ratio 36.7 H, Glucose 109 H, Calcium 8.5, Total Bilirubin 0.70, AST 74 H, ALT 51, Alkaline Phosphatase 78, Total Protein 6.1 L, Albumin 2.1 L, Globulin 4.0, Albumin/Globulin Ratio 0.5 L Current Medications Acetaminophen (Acetaminophen 325 Mg Tablet) 650 mg PO Q6H PRN PRN PRN Reason: Pain Score 1-10/Temp > 100.7 F Hydrocodone Bitart/Acetaminophen (Hydrocodone Bitartrate/Apap 5/325 Tablet) 1 tablet PO Q6H PRN PRN PRN Reason: Pain Score 4-10 Last Admin: 03/26/20 14:38 Dose: 1 tablet Documented by: Al Hydroxide/Mg Hydroxide (Mag Hydrox/Al Hydrox/Simeth 30 Ml Udc) 30 ml PO Q6H PRN PRN PRN Reason: Gastric Burning Albuterol Sulfate (Albuterol Sulfate 8 Gm Inhaler (60 Puffs)) 1 puff INHALATION Q2H PRN PRN PRN Reason: Shortness of Breath/Wheezing Amiodarone HCl (Amiodarone 200 Mg Tablet) 100 mg PO DAILY [facility] Last Admin: 03/26/20 09:54 Dose: 100 mg Documented by: Amlodipine Besylate (Amlodipine 2.5 Mg Tablet) 2.5 mg PO DAILY [facility] Last Admin: 03/26/20 10:02 Dose: 2.5 mg Documented by: Apixaban (Apixaban 5 Mg Tablet) 5 mg PO BID [facility] Last Admin: 03/26/20 21:04 Dose: 5 mg Documented by: Clopidogrel Bisulfate (Clopidogrel Bisulfate 75 Mg Tablet) 75 mg PO DINNER [facility] Last Admin: 03/26/20 17:43 Dose: 75 mg Documented by: Furosemide (Furosemide 40 Mg/4 Ml Vial) 40 mg IV BID@1000,1800 [facility] Last Admin: 03/26/20 17:43 Dose: 40 mg Documented by: Guaifenesin (Guaifenesin 1,200 Mg Tablet) 1,200 mg PO BID [facility] Last Admin: 03/26/20 21:05 Dose: 1,200 mg Documented by: Hydralazine HCl (Hydralazine 20 Mg/Ml Vial) 10 mg IV Q4H PRN PRN PRN Reason: SBP > 160 Piperacillin Sod/Tazobactam (Sod 3.375 gm/ Sodium Chloride) 50 mls @ 12.5 mls/hr IV Q8 [facility] Last Admin: 03/27/20 05:01 Dose: 12.5 mls/hr Documented by: Levothyroxine Sodium (Levothyroxine 125 Mcg Tablet) 125 mcg PO DAILY [facility] Last Admin: 03/26/20 09:57 Dose: 125 mcg Documented by: Lisinopril (Lisinopril 10 Mg Tablet) 10 mg PO DAILY [facility] Last Admin: 03/26/20 12:25 Dose: 10 mg Documented by: Melatonin (Melatonin 3 Mg Tablet) 3 mg PO QHS PRN PRN PRN Reason: INSOMNIA Last Admin: 03/26/20 21:05 Dose: 3 mg Documented by: Metoprolol Tartrate (Metoprolol Tartrate 25 Mg Tablet) 12.5 mg PO BID [facility] Last Admin: 03/26/20 21:04 Dose: 12.5 mg Documented by: Miscellaneous Information (Inhaler, Assist Devices 1 Each Spacer) 1 each INHALATION Q2H PRN PRN PRN Reason: Albuterol MDI Morphine Sulfate (Morphine 2 Mg/Ml Syringe) 2 mg IV Q3H PRN PRN PRN Reason: Pain Score 6-10 Nitroglycerin (Nitroglycerin (Inpatient Use) 0.4 Mg Tab.Subl) 0.4 mg SUBLINGUAL Q5M PRN PRN Reason: CARDIAC/CHEST PAIN Pantoprazole Sodium (Pantoprazole Sodium 20 Mg Tablet) 20 mg PO DAILY [facility] Last Admin: 03/26/20 09:54 Dose: 20 mg Documented by: Prochlorperazine Edisylate (Prochlorperazine 10 Mg/2 Ml Vial) 5 mg IV Q4H PRN PRN PRN Reason: Breakthrough nausea/vomiting Senna/Docusate Sodium (Senna/Docusate Sodium 1 Tablet) 2 tablet PO BID PRN PRN PRN Reason: Constipation Sodium Chloride (0.9% Saline Lock 10 Ml Syringe) 10 - 40 ml IV UD PRN PRN Reason: SALINE FLUSH Last Admin: 03/26/20 05:41 Dose: 10 ml Documented by: Medical Necessity - Tobacco Use Smoking Status: Never smoker Tobacco Use: Non-smoker Route of nutrition/ use of supplements: [] Nutritional Intake: [] IV Site: [] [place] Catheter: [] - Assessment/Plan Antibiotics: [] Assessment/Plan: [] Active and Suspected Problems (Last Reviewed 03/05/20 @ 10:00 by Montserrat Villa PA, PA) COVID-19 (Acute) Recent severe covid, now with fever, dyspnea, and yepez sputum. Pending sputum cx. Concern for CAP. Now with diarrhea on zosyn. Will change to ceftriaxone, start probiotic. Will follow
[2020-03-27] MEDS: Loperamide 2 MG Capsule PO ×4 (10:47→20:49)
[2020-03-27] MEDS: Menthol/Lanolin/Calamine/Znox 113 GM Tube 1 APPLIC TOPICAL ×3 (13:40→20:51)
[2020-03-27] MEDS: Clopidogrel Bisulfate 75 MG Tablet PO (16:52)
[2020-03-27] MEDS: Furosemide 40 MG Tablet PO (16:52)
[2020-03-27] MEDS: MELATONIN 3 MG TABLET PO (20:49)
[2020-03-27] MEDS: LORazepam 0.5 MG Tablet PO (22:58)
[2020-03-28] VITALS (16 sets, daily range): BP systolic 102–125; BP diastolic 51–70; PULSE 62–89; RESP 19–20; TEMP 36.5–36.7; O2SAT 93–100
[2020-03-28 06:00] LABS: Absolute Lymphocyte Count 1.09 X10^3/uL (0.83-4.51); Absolute Neutrophil Count 10.9 X10^3/uL (2.0-7.7); Basophil# 0.01 X10^3/uL; Basophil% 0.1 % (0-1); Eosinophil# 0.07 X10^3/uL; Eosinophils% 0.5 % (0-5); Hemoglobin 10.3 g/dL (12.0-15.0); Lymphocyte # 1.09 X10^3/ul (4.0); Lymphocyte % 8.5 % (19-41); Mean Corp Hgb Conc 31.2 g/dL (32-36); Mean Corpuscular Hgb 29.3 pg (27.0-32.0); Mean Platelet Vol. 12.6 fl (6.2-12.0); Monocyte# 0.63 X10^3/uL; Monocyte% 4.9 % (0-10); NRBC Flagged by Analyzer 0 % (0-5); Neutrophil # 10.86 X10^3/uL (2.7-7.7); Neutrophil % 85.3 % (47-70); Platelet Count 130 K/mm3 (150-450); RBC Distribution Width CV 13.9 % (11.6-14.6); RBC Distribution Width SD 48.3 fl (35.1-43.9); Red Blood Count 3.51 M/mm3 (4.2-5.4); White Blood Count 12.8 K/mm3 (4.4-11.0)
[2020-03-28 06:38] LABS: ALB/GLOB Ratio 0.5 RATIO (0.9-2.4); AST(SGOT) 48 U/L (15-37); Alanine Aminotransfer ALT/SGPT 46 U/L (13-56); Albumin, Serum 2.1 g/dL (3.2-5.0); Alkaline Phosphatase 83 U/L (45-117); Anion Gap 9 (5-15); BUN 55 mg/dL (7-18); BUN/Creat Ratio 34.4 RATIO (10-20); Calcium,Total 8.3 mg/dL (8.5-10.1); Chloride 110 mmol/L (98-107); EST Glomerular Filtration Rate 33 mL/min (>60); Est Glom Filt Rate - Afr Amer 40 mL/min (>60); Estimated Creatinine Clearance 19.14 ml/min; Globulin 4.1 g/dL (2.2-4.2); Glucose 88 mg/dL (74-106); Potassium 3.8 mmol/L (3.5-5.1); Protein, Total 6.2 g/dL (6.4-8.2); Sodium Level 141 mmol/L (136-145)
--- NOTE | 2020-03-28 07:05 | PN_ITS ---
Patient Problems: Active and Suspected Problems (Last Reviewed 03/05/20 @ 10:00 by Montserrat MOELLER, PA) COVID-19 (Acute) Subjective: Patient overnight with increased oxygen requirements with increased work of breathing, requiring 10 L for any ambulation in the room. Patient notes she is more fatigued and has had more coughing since day prior. She notes that diarrhea with loperamide has resolved. Patient denies fevers, chills, nausea, emesis, abdominal pain, chest pain. Objective: Physical Examination: General: awake, alert, oriented x 3 and cooperative, seated upright in the bedside chair in the Covid unit, more fatigued than day prior. Skin: normal color, turgor, no icterus, cyanosis. HEENT: AT/NC, EOMI, PERRLA, MMM. Lungs: Diminished breath sounds, greater bases, effort mildly decreased from day prior, significant dyspnea with exertion requiring 10 L with ambulation in the room, oxygen currently up to 5 L, no obvious rales, rhonchi or wheezing. Heart: Regular rate and rhythm, currently sinus rhythm; no gallop, rub audible. Abdomen: soft, obese, NTTP, ND, normal BS. Extremities: no cyanosis or clubbing, mild ankle nonpitting edema. Neurological: patient awake, alert, oriented as noted; cognitive function intact; pupils equally reactive to light and accomodation; cranial nerves II-XII grossly normal, moving all 4 extremities, no focal deficits, strength moderately to severely globally decreased secondary to acute presentation. Psychiatric: affect appears fatigued, no acute evidence of depressive or anxiety feelings. Vitals/I&O's: Vital Signs Temp Pulse Resp BP Pulse Ox 97.7 F L 72 20 H 121/70 H 100 03/28/20 03:00 03/28/20 06:45 03/28/20 03:00 03/28/20 03:00 03/28/20 03:00 Oxygen Flow Rate (L/min) 3 Oxygen Delivery Method Nasal Cannula Weight: 171 lb 8.314 oz Body Mass Index (BMI) 33.5 Intake and Output for Last 24 Hours 03/26/20 03/27/20 03/28/20 23:59 23:59 23:59 Intake Total 1603.33 / 1603.33 640 / 640 240 / 240 Output Total 775 / 775 700 / 700 Balance 828.33 / 828.33 -60 / -60 240 / 240 Microbiology Past 72 Hours 03/27/20 Unknown Interface Orders C. difficile DNA Amplification - Final 03/25/20 15:05 Blood Culture (Wb) #2 - Anticubital Right Blood Culture - Preliminary No growth in 48 hours. 03/25/20 14:54 Blood Culture (Wb) - Anticubital Left Blood Culture - Preliminary No growth in 48 hours. 03/27/20 06:25 Sputum, Expectorated/Coughed Gram Stain - Final 03/26/20 02:40 Urine, Random Streptococcus pneumoniae Antigen (M - Final 03/26/20 02:40 Urine, Random Legionella Antigen - Final 03/25/20 20:07 Interface Orders Respiratory Panel (PCR) - Final Laboratory Results 03/27/20 06:15: Sodium 139, Potassium 3.3 L, Chloride 106, Carbon Dioxide 26.0, Anion Gap 7, BUN 58 H, Creatinine 1.58 H, Estim Creat Clear Calc 19.38, Est GFR (MDRD) Af Amer 40 L, Est GFR (MDRD) Non-Af 33 L, BUN/Creatinine Ratio 36.7 H, Glucose 109 H, Calcium 8.5, Total Bilirubin 0.70, AST 74 H, ALT 51, Alkaline Phosphatase 78, Total Protein 6.1 L, Albumin 2.1 L, Globulin 4.0, Albumin/Globulin Ratio 0.5 L 03/28/20 05:50: WBC 12.8 H, RBC 3.51 L, Hgb 10.3 L, Hct 33.0 L, MCV 94.0, MCH 29.3, MCHC 31.2 L, RDW Std Deviation 48.3 H, RDW Coeff of [place] 13.9, Plt Count 130 L, MPV 12.6 H, Immature Gran % (Auto) 0.700, Neut % (Auto) 85.3 H, Lymph % (Auto) 8.5 L, [place] % (Auto) 4.9, Eos % (Auto) 0.5, Baso % (Auto) 0.1, Absolute Neuts (auto) 10.9 H, Absolute Lymphs (auto) 1.09, Nucleated RBC % 0 03/28/20 05:50: Sodium 141, Potassium 3.8, Chloride 110 H, Carbon Dioxide 22.0, Anion Gap 9, BUN 55 H, Creatinine 1.60 H, Estim Creat Clear Calc 19.14, Est GFR (MDRD) Af Amer 40 L, Est GFR (MDRD) Non-Af 33 L, BUN/Creatinine Ratio 34.4 H, Glucose 88, Calcium 8.3 L, Total Bilirubin 0.50, AST 48 H, ALT 46, Alkaline Melvin sphatase 83, Total Protein 6.2 L, Albumin 2.1 L, Globulin 4.1, Albumin/Globulin Ratio 0.5 L Current Medications Acetaminophen (Acetaminophen 325 Mg Tablet) 650 mg PO Q6H PRN PRN PRN Reason: Pain Score 1-10/Temp > 100.7 F Hydrocodone Bitart/Acetaminophen (Hydrocodone Bitartrate/Apap 5/325 Tablet) 1 tablet PO Q6H PRN PRN PRN Reason: Pain Score 4-10 Last Admin: 03/26/20 14:38 Dose: 1 tablet Documented by: Al Hydroxide/Mg Hydroxide (Mag Hydrox/Al Hydrox/Simeth 30 Ml Udc) 30 ml PO Q6H PRN PRN PRN Reason: Gastric Burning Albuterol Sulfate (Albuterol Sulfate 8 Gm Inhaler (60 Puffs)) 1 puff INHALATION Q2H PRN PRN PRN Reason: Shortness of Breath/Wheezing Amiodarone HCl (Amiodarone 200 Mg Tablet) 100 mg PO DAILY [facility] Last Admin: 03/27/20 10:14 Dose: 100 mg Documented by: Amlodipine Besylate (Amlodipine 2.5 Mg Tablet) 2.5 mg PO DAILY [facility] Last Admin: 03/27/20 10:13 Dose: 2.5 mg Documented by: Apixaban (Apixaban 5 Mg Tablet) 5 mg PO BID [facility] Last Admin: 03/27/20 20:49 Dose: 5 mg Documented by: Calamine/Phenol (Menthol/Lanolin/Calamine/Znox 113 Gm Tube) 1 applic TOPICAL 4X/DAY [facility]; Protocol Last Admin: 03/27/20 20:51 Dose: 1 applicatio Documented by: Clopidogrel Bisulfate (Clopidogrel Bisulfate 75 Mg Tablet) 75 mg PO DINNER [facility] Last Admin: 03/27/20 16:52 Dose: 75 mg Documented by: Furosemide (Furosemide 40 Mg Tablet) 40 mg PO 1000,1700 [facility] Last Admin: 03/27/20 16:52 Dose: 40 mg Documented by: Guaifenesin (Guaifenesin 1,200 Mg Tablet) 1,200 mg PO BID [facility] Last Admin: 03/27/20 20:47 Dose: 1,200 mg Documented by: Hydralazine HCl (Hydralazine 20 Mg/Ml Vial) 10 mg IV Q4H PRN PRN PRN Reason: SBP > 160 Ceftriaxone Sodium 2 gm/ (Sodium Chloride) 50 mls @ 100 mls/hr IV Q24 [facility] Last Infusion: 03/27/20 14:18 Dose: Infused Documented by: Sodium Chloride () 250 mls @ 15 mls/hr IV .[id number] PRN PRN Reason: Saline Flush Sodium Chloride () 250 mls @ 15 mls/hr IV .[id number] PRN PRN Reason: Additional IVPB Infusion Lactobacillus Acidophilus (Lactobacillus Acidophilus) 1 tablet PO BID [facility] Last Admin: 03/27/20 20:47 Dose: 1 tablet Documented by: Levothyroxine Sodium (Levothyroxine 125 Mcg Tablet) 125 mcg PO DAILY [facility] Last Admin: 03/27/20 10:13 Dose: 125 mcg Documented by: Lisinopril (Lisinopril 10 Mg Tablet) 10 mg PO DAILY [facility] Last Admin: 03/27/20 10:13 Dose: 10 mg Documented by: Loperamide HCl (Loperamide 2 Mg Capsule) 2 mg PO Q2H PRN PRN PRN Reason: diarrhea, loose stools Last Admin: 03/27/20 20:49 Dose: 2 mg Documented by: Melatonin (Melatonin 3 Mg Tablet) 3 mg PO QHS PRN PRN PRN Reason: INSOMNIA Last Admin: 03/27/20 20:49 Dose: 3 mg Documented by: Metoprolol Tartrate (Metoprolol Tartrate 25 Mg Tablet) 12.5 mg PO BID [facility] Last Admin: 03/27/20 20:47 Dose: 12.5 mg Documented by: Miscellaneous Information (Inhaler, Assist Devices 1 Each Spacer) 1 each INHALATION Q2H PRN PRN PRN Reason: Albuterol MDI Morphine Sulfate (Morphine 2 Mg/Ml Syringe) 2 mg IV Q3H PRN PRN PRN Reason: Pain Score 6-10 Nitroglycerin (Nitroglycerin (Inpatient Use) 0.4 Mg Tab.Subl) 0.4 mg SUBLINGUAL Q5M PRN PRN Reason: CARDIAC/CHEST PAIN Pantoprazole Sodium (Pantoprazole Sodium 20 Mg Tablet) 20 mg PO DAILY [facility] Last Admin: 03/27/20 10:13 Dose: 20 mg Documented by: Prochlorperazine Edisylate (Prochlorperazine 10 Mg/2 Ml Vial) 5 mg IV Q4H PRN PRN PRN Reason: Breakthrough nausea/vomiting Senna/Docusate Sodium (Senna/Docusate Sodium 1 Tablet) 2 tablet PO BID PRN PRN PRN Reason: Constipation Sodium Chloride (0.9% Saline Lock 10 Ml Syringe) 10 - 40 ml IV UD PRN PRN Reason: SALINE FLUSH Last Admin: 03/27/20 10:15 Dose: 10 ml Documented by: STROKE Vital Signs/Narrative: Vital Signs Pulse 03/28/20 06:45 72 Medical Necessity - Tobacco Use Smoking Status: Never smoker Tobacco Use: Non-smoker Assessment/Plan All Active Problems (Last Reviewed 03/05/20 @ 10:00 by Montserrat Villa PA, PA) COVID-19 (Acute) H/O coronary artery bypass surgery (Resolved 01/2016) Atypical chest pain (Resolved) The patient is an 85 y/o F w/ PMHx: Chronically elevated troponins, CKD stage III, Hypothyroidism, CAD s/p CABG x 2 VALERIO-LAD, 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 1. Acute Hypoxic Respiratory Failure secondary to Bilateral Pneumonia secondary to Acute Viral Syndrome, COVID-19, Possibly concurrent HCAP: Work-up in the ED included T101, heart rate 130 initially, BP 136/77, respiratory rate 27, 88% on room air with improvement to 96% on 2 L nasal cannula, CBC with WC 10.7, hemoglobin 10.9, platelet 155 with left shift and lymphopenia, BMP with chloride 109, BUN/creatinine 40/1.49, glucose 113, lactic acid 1.8, troponin 0.286, CXR with progression of BL pulmonary infiltrates, initial EKG with atrial fibrillation with RVR. In the ED patient administered Zosyn, vancomycin, Decadron therapy. Admitted to the COVID unit given worsening status, maintained on oxygen with wean as tolerated to room air, PRN albuterol, HOB, IS parameters w/ pending sputum cultures, respiratory viral panel negative and urine antigens negative, D-dimer 1.60 currently anticoagulated thus will review CTPA considerations with ID, BNP 2192.9, LDH 569, procalcitonin 0.66, TCK 111, trop 0.286 with trending as noted, continue supportive care including q 2 hour, Infectious disease consulted and following, completed 10 days of Decadron, initially on IV vancomycin and Zosyn however patient with onset 03/26/2020 diarrhea likely antibiotic therapy therefore transitioned to only Rocephin per infectious disease, patient administered IV Lasix therapy upon presentation 03/26/2020 with clinical improvement and decreased oxygen requirements however 03/27/2020 electrolyte alterations therefore discontinued and transition back to oral home regimen. Blood culture no growth times 48 hours x 2. Initiated also on probiotic for diarrhea likely antibiotic associated with negative C. difficile assay testing. Once patient clinically appropriate with appropriate oxygenation requirements safe for home will plan discharge on Omnicef to complete a total of 7 days of antibiotic therapy per infectious disease recommendation. Will reassess oxygenation 03/29/2020 given significant 10 L requirement with ambulatory effort and increased oxygen requirement of 5 L at rest. If ongoing increased oxygen requirements will request pulmonary/critical care involvement additionally. 2. PAF with RVR: Patient upon ED arrival with EKG with atrial fibrillation with RVR with nonspecific ST changes likely secondary to acute presentation as noted #1, improved following admission and treatment #1, maintain on cardiac telemetry , cardiac enzymes initially 0.286 with trending continued with improvement--> 0.181--> 0.148x2, magnesium level 2.2, continued on amiodarone, Eliquis and metoprolol therapy with increased dosage and continue treatment of #1. 3. Acute on Chronically Elevated Troponins likely secondary to Demand Ischemic secondary to #1, #2: Admission troponin 0.286, prior 03/13/20 0.108; however, 06/30/2017 0.219, maintained on telemetry, 0.286 with trending continued with improvement--> 0.181--> 0.148 x 2, mag normal, TSH low with free T4 1.67, given acute presentation and acute illness discussed with PCP and would plan follow-up once clinically improved outpatient. 4. Takotsubo cardiomyopathy: Continue home eliquis, Lasix, lisinopril, metoprolol regimen, not on statin therapy, defer to outpatient. 03/24/2018 echocardiogram with normal LV size, normal LV systolic function, EF 55%, stage III diastolic dysfunction, mild LUX with bioprosthetic aortic valve. 5. 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 Most recent echo as noted. 6. CKD stage III: Admission BUN/Cr 40/1.49, baseline Cr appears primarily 1.4- 1.6, 03/26/20 BUN/Cr 45/1.46--> 03/27/2020 BUN/creatinine 58/1.58, likely mild increase secondary to IV Lasix usage as noted, resuming home oral regimen, continue to trend CMP. 7. Hypothyroidism: Continue home synthroid regimen, TSH low, FT4 1.67 which was discussed with primary care physician as obtained in the acute setting therefore recommendation for repeat outpatient once acute presentation has resolved which PCP is amenable. 8. Chronic anemia: Admission Hgb 10.9, baseline appears 10-11, 03/28/2020 hemoglobin 10.3, continue to trend. 9. Hypokalemia: Admission K+ 3.3, supplementation given, 03/28/2020 K+ 3.8, improved. 10. Chronic Kidney Disease Stage III with renal insufficiency secondary to likely diuretic usage: Admission BUN/Cr 45/1.46, baseline renal function 1.4- 1.5, 03/28/2020 BUN/creatinine 55/1.60, continue to trend, IV Lasix have been transition back to oral regimen. 11. PUD: We will continue patient home PPI. 12. DVT Prophylaxis: SCDs, continue home eliquis regimen. 13. CODE status: DNR-CCA, no intubation status. Inpatient E&M: 20270 Subs Hosp L2
--- NOTE | 2020-03-28 09:49 | NURSING ---
SPo2 95% at rest 5L NC ambulating spo2 on 5L NC is 84% ambulating spo2 on 7L NC is 86% ambulating spo2 on 10L is 91%
[2020-03-28] MEDS: Levothyroxine 125 MCG Tablet PO (10:14)
[2020-03-28] MEDS: Amiodarone 200 MG Tablet 100 MG PO (10:14)
[2020-03-28] MEDS: amLODIPine 2.5 MG Tablet PO (10:14)
[2020-03-28] MEDS: guaiFENesin 1,200 MG Tablet 1200 MG PO ×2 (10:15→20:14)
[2020-03-28] MEDS: APIXABAN 5 MG TABLET PO ×2 (10:15→20:14)
[2020-03-28] MEDS: Lisinopril 10 MG Tablet PO (10:15)
[2020-03-28] MEDS: Metoprolol Tartrate 25 MG Tablet 12.5 MG PO ×2 (10:15→20:14)
[2020-03-28] MEDS: Pantoprazole Sodium 20 MG Tablet PO (10:15)
[2020-03-28] MEDS: Furosemide 40 MG Tablet PO ×2 (10:15→17:40)
[2020-03-28] MEDS: 0.9% Saline Lock 10 ML Syringe IV (10:16)
[2020-03-28] MEDS: Menthol/Lanolin/Calamine/Znox 113 GM Tube 1 APPLIC TOPICAL ×3 (10:16→20:15)
--- NOTE | 2020-03-28 12:43 | CASEMGMT ---
Addendum entered by Jacky Wyatt 03/28/20 12:46: Referral and HHC order faxed to [facility]. Call to Matthew to update on referral and they can accept the patient. Original Note: ADONIS NAJERA Note: Called to patient, discussed home care on discharge. Patient feels she would like HHC through [facility] and [facility] for home oxygen. Green sheet on chart. Juanita CHOW RN ACM
--- NOTE | 2020-03-28 14:01 | PN.ID_ITS ---
Patient Problems: Active and Suspected Problems (Last Reviewed 03/05/20 @ 10:00 by Montserrat Villa PA, PA) COVID-19 (Acute) Subjective: Feeling a little better today. Diarrhea resolved. Energy improved, breathing a little better. No sputum. - Physical Exam Vitals/I&O's: Vital Signs Temp Pulse Resp BP Pulse Ox 97.9 F 62 20 H 102/51 L 93 03/28/20 07:35 03/28/20 10:59 03/28/20 07:47 03/28/20 07:35 03/28/20 07:35 Oxygen Flow Rate (L/min) 5 Oxygen Delivery Method Nasal Cannula Weight: 77.8 kg Body Mass Index (BMI) 33.5 Intake and Output for Last 24 Hours 03/26/20 03/27/20 03/28/20 23:59 23:59 23:59 Intake Total 1603.33 / 1603.33 640 / 640 290 / 290 Output Total 775 / 775 700 / 700 Balance 828.33 / 828.33 -60 / -60 290 / 290 General: Alert, Cooperative, No apparent distress Lungs: Clear to auscultation, Diminished Cardiovascular: Regular rate, Regular Rhythm Abdomen: Soft, Non Tender, Non-Distended Skin: No rashes Microbiology Past 72 Hours 03/27/20 06:25 Sputum, Expectorated/Coughed Gram Stain - Final 03/27/20 06:25 Sputum, Expectorated/Coughed Respiratory Culture - Preliminary Presumptive C albicans 03/27/20 Unknown Interface Orders C. difficile DNA Amplification - Final 03/25/20 15:05 Blood Culture (Wb) #2 - Anticubital Right Blood Culture - Preliminary No growth in 48 hours. 03/25/20 14:54 Blood Culture (Wb) - Anticubital Left Blood Culture - Preliminary No growth in 48 hours. 03/26/20 02:40 Urine, Random Streptococcus pneumoniae Antigen (M - Final 03/26/20 02:40 Urine, Random Legionella Antigen - Final 03/25/20 20:07 Interface Orders Respiratory Panel (PCR) - Final Laboratory Results 03/28/20 05:50: WBC 12.8 H, RBC 3.51 L, Hgb 10.3 L, Hct 33.0 L, MCV 94.0, MCH 29.3, MCHC 31.2 L, RDW Std Deviation 48.3 H, RDW Coeff of Laetha 13.9, Plt Count 130 L, MPV 12.6 H, Immature Gran % (Auto) 0.700, Neut % (Auto) 85.3 H, Lymph % (Auto) 8.5 L, [place] % (Auto) 4.9, Eos % (Auto) 0.5, Baso % (Auto) 0.1, Absolute Neuts (auto) 10.9 H, Absolute Lymphs (auto) 1.09, Nucleated RBC % 0 03/28/20 05:50: Sodium 141, Potassium 3.8, Chloride 110 H, Carbon Dioxide 22.0, Anion Gap 9, BUN 55 H, Creatinine 1.60 H, Estim Creat Clear Calc 19.14, Est GFR (MDRD) Af Amer 40 L, Est GFR (MDRD) Non-Af 33 L, BUN/Creatinine Ratio 34.4 H, Glucose 88, Calcium 8.3 L, Total Bilirubin 0.50, AST 48 H, ALT 46, Alkaline Phosphatase 83, Total Protein 6.2 L, Albumin 2.1 L, Globulin 4.1, Albumin/Globulin Ratio 0.5 L Current Medications Acetaminophen (Acetaminophen 325 Mg Tablet) 650 mg PO Q6H PRN PRN PRN Reason: Pain Score 1-10/Temp > 100.7 F Hydrocodone Bitart/Acetaminophen (Hydrocodone Bitartrate/Apap 5/325 Tablet) 1 tablet PO Q6H PRN PRN PRN Reason: Pain Score 4-10 Last Admin: 03/26/20 14:38 Dose: 1 tablet Documented by: Al Hydroxide/Mg Hydroxide (Mag Hydrox/Al Hydrox/Simeth 30 Ml Udc) 30 ml PO Q6H PRN PRN PRN Reason: Gastric Burning Albuterol Sulfate (Albuterol Sulfate 8 Gm Inhaler (60 Puffs)) 1 puff INHALATION Q2H PRN PRN PRN Reason: Shortness of Breath/Wheezing Amiodarone HCl (Amiodarone 200 Mg Tablet) 100 mg PO DAILY [facility] Last Admin: 03/28/20 10:14 Dose: 100 mg Documented by: Amlodipine Besylate (Amlodipine 2.5 Mg Tablet) 2.5 mg PO DAILY [facility] Last Admin: 03/28/20 10:14 Dose: 2.5 mg Documented by: Apixaban (Apixaban 5 Mg Tablet) 5 mg PO BID [facility] Last Admin: 03/28/20 10:15 Dose: 5 mg Documented by: Calamine/Phenol (Menthol/Lanolin/Calamine/Znox 113 Gm Tube) 1 applic TOPICAL 4X/DAY [facility]; Protocol Last Admin: 03/28/20 10:16 Dose: 1 applicatio Documented by: Clopidogrel Bisulfate (Clopidogrel Bisulfate 75 Mg Tablet) 75 mg PO DINNER [facility] Last Admin: 03/27/20 16:52 Dose: 75 mg Documented by: Furosemide (Furosemide 40 Mg Tablet) 40 mg PO 1000,1700 [facility] Last Admin: 03/28/20 10:15 Dose: 40 mg Documented by: Guaifenesin (Guaifenesin 1,200 Mg Tablet) 1,200 mg PO BID [facility] Last Admin: 03/28/20 10:15 Dose: 1,200 mg Documented by: Hydralazine HCl (Hydralazine 20 Mg/Ml Vial) 10 mg IV Q4H PRN PRN PRN Reason: SBP > 160 Ceftriaxone Sodium 2 gm/ (Sodium Chloride) 50 mls @ 100 mls/hr IV Q24 [facility] Last Infusion: 03/28/20 10:44 Dose: Infused Documented by: Sodium Chloride () 250 mls @ 15 mls/hr IV .[id number] PRN PRN Reason: Saline Flush Sodium Chloride () 250 mls @ 15 mls/hr IV .[id number] PRN PRN Reason: Additional IVPB Infusion Lactobacillus Acidophilus (Lactobacillus Acidophilus) 1 tablet PO BID [facility] Last Admin: 03/28/20 10:14 Dose: 1 tablet Documented by: Levothyroxine Sodium (Levothyroxine 125 Mcg Tablet) 125 mcg PO DAILY [facility] Last Admin: 03/28/20 10:14 Dose: 125 mcg Documented by: Lisinopril (Lisinopril 10 Mg Tablet) 10 mg PO DAILY [facility] Last Admin: 03/28/20 10:15 Dose: 10 mg Documented by: Loperamide HCl (Loperamide 2 Mg Capsule) 2 mg PO Q2H PRN PRN PRN Reason: diarrhea, loose stools Last Admin: 03/27/20 20:49 Dose: 2 mg Documented by: Melatonin (Melatonin 3 Mg Tablet) 3 mg PO QHS PRN PRN PRN Reason: INSOMNIA Last Admin: 03/27/20 20:49 Dose: 3 mg Documented by: Metoprolol Tartrate (Metoprolol Tartrate 25 Mg Tablet) 12.5 mg PO BID [facility] Last Admin: 03/28/20 10:15 Dose: 12.5 mg Documented by: Miscellaneous Information (Inhaler, Assist Devices 1 Each Spacer) 1 each INHALATION Q2H PRN PRN PRN Reason: Albuterol MDI Morphine Sulfate (Morphine 2 Mg/Ml Syringe) 2 mg IV Q3H PRN PRN PRN Reason: Pain Score 6-10 Nitroglycerin (Nitroglycerin (Inpatient Use) 0.4 Mg Tab.Subl) 0.4 mg SUBLINGUAL Q5M PRN PRN Reason: CARDIAC/CHEST PAIN Pantoprazole Sodium (Pantoprazole Sodium 20 Mg Tablet) 20 mg PO DAILY [facility] Last Admin: 03/28/20 10:15 Dose: 20 mg Documented by: Prochlorperazine Edisylate (Prochlorperazine 10 Mg/2 Ml Vial) 5 mg IV Q4H PRN PRN PRN Reason: Breakthrough nausea/vomiting Senna/Docusate Sodium (Senna/Docusate Sodium 1 Tablet) 2 tablet PO BID PRN PRN PRN Reason: Constipation Sodium Chloride (0.9% Saline Lock 10 Ml Syringe) 10 - 40 ml IV UD PRN PRN Reason: SALINE FLUSH Last Admin: 03/28/20 10:16 Dose: 10 ml Documented by: Medical Necessity - Tobacco Use Smoking Status: Never smoker Tobacco Use: Non-smoker Route of nutrition/ use of supplements: [] Nutritional Intake: [] IV Site: [] [place] Catheter: [] - Assessment/Plan Antibiotics: [] Assessment/Plan: [] Active and Suspected Problems (Last Reviewed 03/05/20 @ 10:00 by Montserrat MOELLER, PA) COVID-19 (Acute) Recent severe covid, now with fever, dyspnea, and yepez sputum. Diarrhea resolved, cdiff was neg. Changed zosyn to ceftriaxone 03/27. Sputum resolved, still on 5L. Plan on her being discharged on po omnicef to complete 7 total days of abx. Will follow
[2020-03-28] MEDS: Clopidogrel Bisulfate 75 MG Tablet PO (17:40)
[2020-03-28] MEDS: MELATONIN 3 MG TABLET PO (20:17)
[2020-03-29] VITALS (15 sets, daily range): BP systolic 117–132; BP diastolic 43–85; PULSE 67–100; RESP 18–20; TEMP 36.6–37.1; O2SAT 92–97
[2020-03-29 06:06] LABS: Absolute Lymphocyte Count 0.98 X10^3/uL (0.83-4.51); Absolute Neutrophil Count 9.1 X10^3/uL (2.0-7.7); Basophil# 0.02 X10^3/uL; Basophil% 0.2 % (0-1); Eosinophil# 0.07 X10^3/uL; Eosinophils% 0.6 % (0-5); Lymphocyte # 0.98 X10^3/ul (4.0); Mean Corp Hgb Conc 30.3 g/dL (32-36); Mean Corpuscular Volume 95.7 fL (81-99); Monocyte# 0.64 X10^3/uL; Monocyte% 5.9 % (0-10); NRBC Flagged by Analyzer 0 % (0-5); Neutrophil # 9.05 X10^3/uL (2.7-7.7); Neutrophil % 83.4 % (47-70); Platelet Count 138 K/mm3 (150-450); RBC Distribution Width CV 14.1 % (11.6-14.6); RBC Distribution Width SD 49.3 fl (35.1-43.9); Red Blood Count 3.45 M/mm3 (4.2-5.4); White Blood Count 10.9 K/mm3 (4.4-11.0)
--- NOTE | 2020-03-29 06:48 | PN_ITS ---
Patient Problems: Active and Suspected Problems (Last Reviewed 03/05/20 @ 10:00 by Montserrat Villa PA, PA) COVID-19 (Acute) Subjective: Patient overnight with continued significant dyspnea and hypoxia with any exertion, increased oxygen requirements up to 5 L at rest but reportedly per her noting less dyspnea and less cough (dry) currently. She does feel more tired. Given ongoing hypoxia per discussion with patient did request pulmonary consultation and patient was reinitiated on IV Lasix 40 mg only once daily at this time given previous renal function increase. Patient denies fevers, chills, nausea, emesis, abdominal pain, chest pain. Objective: Physical Examination: General: awake, alert, oriented x 3 and cooperative, seated upright in the bedside chair to Covid unit bed, fatigued appearing. Skin: normal color, turgor, no icterus, cyanosis. HEENT: AT/NC, EOMI, PERRLA, MMM. Lungs: Diminished breath sounds, greater bases, currently effort improved but seated at rest in bed, no obvious rales, rhonchi or wheezing but overnight significant dyspnea with continued increased oxygen requirements upon exertion, currently on 5 L. Heart: Regular rate and rhythm, currently sinus rhythm; no gallop, rub audible. Abdomen: soft, obese, NTTP, ND, normal BS. Extremities: no cyanosis or clubbing, mild ankle nonpitting edema. Neurological: patient awake, alert, oriented as noted; cognitive function intact; pupils equally reactive to light and accomodation; cranial nerves II-XII grossly normal, moving all 4 extremities, no focal deficits, strength moderately to severely globally decreased secondary to acute presentation. Psychiatric: affect appears fatigued, no acute evidence of depressive or anxiety feelings. Vitals/I&O's: Vital Signs Temp Pulse Resp BP Pulse Ox 98.0 F 67 20 H 124/61 H 95 03/29/20 02:10 03/29/20 02:10 03/29/20 02:10 03/29/20 02:10 03/29/20 02:10 Oxygen Flow Rate (L/min) 5 Oxygen Delivery Method Nasal Cannula Weight: 171 lb 8.314 oz Body Mass Index (BMI) 33.5 Intake and Output for Last 24 Hours 03/27/20 03/28/20 03/29/20 23:59 23:59 23:59 Intake Total 640 / 640 770 / 770 Output Total 700 / 700 Balance -60 / -60 770 / 770 Microbiology Past 72 Hours 03/27/20 06:25 Sputum, Expectorated/Coughed Gram Stain - Final 03/27/20 06:25 Sputum, Expectorated/Coughed Respiratory Culture - Preliminary Presumptive C albicans 03/27/20 Unknown Interface Orders C. difficile DNA Amplification - Final 03/25/20 15:05 Blood Culture (Wb) #2 - Anticubital Right Blood Culture - Preliminary No growth in 48 hours. 03/25/20 14:54 Blood Culture (Wb) - Anticubital Left Blood Culture - Preliminary No growth in 48 hours. 03/26/20 02:40 Urine, Random Streptococcus pneumoniae Antigen (M - Final 03/26/20 02:40 Urine, Random Legionella Antigen - Final Laboratory Results 03/29/20 05:58: WBC 10.9, RBC 3.45 L, Hgb 10.0 L, Hct 33.0 L, MCV 95.7, MCH 29.0, MCHC 30.3 L, RDW Std Deviation 49.3 H, RDW Coeff of Leatha 14.1, Plt Count 138 L, MPV 12.0, Immature Gran % (Auto) 0.900, Neut % (Auto) 83.4 H, Lymph % (Auto) 9.0 L, [place] % (Auto) 5.9, Eos % (Auto) 0.6, Baso % (Auto) 0.2, Absolute Neuts (auto) 9.1 H, Absolute Lymphs (auto) 0.98, Nucleated RBC % 0 03/29/20 05:58: Sodium Pending, Potassium Pending, Chloride Pending, Carbon Dioxide Pending, Anion Gap Pending, BUN Pending, Creatinine Pending, Est GFR (MDRD) Af Amer Pending, Est GFR (MDRD) Non-Af Pending, BUN/Creatinine Ratio Pending, Glucose Pending, Calcium Pending, Total Bilirubin Pending, AST Pending, ALT Pending, Alkaline Phosphatase Pending, Total Protein Pending, Albumin Pending Current Medications Acetaminophen (Acetaminophen 325 Mg Tablet) 650 mg PO Q6H PRN PRN PRN Reason: Pain Score 1-10/Temp > 100.7 F Hydrocodone Bitart/Acetaminophen (Hydrocodone Bitartrate/Apap 5/325 Tablet) 1 tablet PO Q6H PRN PRN PRN Reason: Pain Score 4-10 Last Admin: 03/26/20 14:38 Dose: 1 tablet Documented by: Al Hydroxide/Mg Hydroxide (Mag Hydrox/Al Hydrox/Simeth 30 Ml Udc) 30 ml PO Q6H PRN PRN PRN Reason: Gastric Burning Albuterol Sulfate (Albuterol Sulfate 8 Gm Inhaler (60 Puffs)) 1 puff INHALATION Q2H PRN PRN PRN Reason: Shortness of Breath/Wheezing Amiodarone HCl (Amiodarone 200 Mg Tablet) 100 mg PO DAILY [facility] Last Admin: 03/28/20 10:14 Dose: 100 mg Documented by: Amlodipine Besylate (Amlodipine 2.5 Mg Tablet) 2.5 mg PO DAILY [facility] [place] Last Admin: 03/28/20 10:14 Dose: 2.5 mg Documented by: Apixaban (Apixaban 5 Mg Tablet) 5 mg PO BID [facility] [place] Last Admin: 03/28/20 20:14 Dose: 5 mg Documented by: Calamine/Phenol (Menthol/Lanolin/Calamine/Znox 113 Gm Tube) 1 applic TOPICAL 4X/DAY [facility]; Protocol Last Admin: 03/28/20 20:15 Dose: 1 applicatio Documented by: Clopidogrel Bisulfate (Clopidogrel Bisulfate 75 Mg Tablet) 75 mg PO DINNER [facility] Last Admin: 03/28/20 17:40 Dose: 75 mg Documented by: Furosemide (Furosemide 40 Mg Tablet) 40 mg PO 1000,1700 [facility] [place] Last Admin: 03/28/20 17:40 Dose: 40 mg Documented by: Guaifenesin (Guaifenesin 1,200 Mg Tablet) 1,200 mg PO BID [facility] Last Admin: 03/28/20 20:14 Dose: 1,200 mg Documented by: Hydralazine HCl (Hydralazine 20 Mg/Ml Vial) 10 mg IV Q4H PRN PRN PRN Reason: SBP > 160 Ceftriaxone Sodium 2 gm/ (Sodium Chloride) 50 mls @ 100 mls/hr IV Q24 [facility] Last Infusion: 03/28/20 10:44 Dose: Infused Documented by: Sodium Chloride () 250 mls @ 15 mls/hr IV .[id number] PRN PRN Reason: Saline Flush Sodium Chloride () 250 mls @ 15 mls/hr IV .[id number] PRN PRN Reason: Additional IVPB Infusion Lactobacillus Acidophilus (Lactobacillus Acidophilus) 1 tablet PO BID [facility] [place] Last Admin: 03/28/20 20:14 Dose: 1 tablet Documented by: Levothyroxine Sodium (Levothyroxine 125 Mcg Tablet) 125 mcg PO DAILY [facility] [place] Last Admin: 03/28/20 10:14 Dose: 125 mcg Documented by: Lisinopril (Lisinopril 10 Mg Tablet) 10 mg PO DAILY [facility] [place] Last Admin: 03/28/20 10:15 Dose: 10 mg Documented by: Loperamide HCl (Loperamide 2 Mg Capsule) 2 mg PO Q2H PRN PRN PRN Reason: diarrhea, loose stools Last Admin: 03/27/20 20:49 Dose: 2 mg Documented by: Melatonin (Melatonin 3 Mg Tablet) 3 mg PO QHS PRN PRN PRN Reason: INSOMNIA Last Admin: 03/28/20 20:17 Dose: 3 mg Documented by: Metoprolol Tartrate (Metoprolol Tartrate 25 Mg Tablet) 12.5 mg PO BID [facility] [place] Last Admin: 03/28/20 20:14 Dose: 12.5 mg Documented by: Miscellaneous Information (Inhaler, Assist Devices 1 Each Spacer) 1 each INHALATION Q2H PRN PRN PRN Reason: Albuterol MDI Morphine Sulfate (Morphine 2 Mg/Ml Syringe) 2 mg IV Q3H PRN PRN PRN Reason: Pain Score 6-10 Nitroglycerin (Nitroglycerin (Inpatient Use) 0.4 Mg Tab.Subl) 0.4 mg SUBLINGUAL Q5M PRN PRN Reason: CARDIAC/CHEST PAIN Pantoprazole Sodium (Pantoprazole Sodium 20 Mg Tablet) 20 mg PO DAILY [facility] [place] Last Admin: 03/28/20 10:15 Dose: 20 mg Documented by: Prochlorperazine Edisylate (Prochlorperazine 10 Mg/2 Ml Vial) 5 mg IV Q4H PRN PRN PRN Reason: Breakthrough nausea/vomiting Senna/Docusate Sodium (Senna/Docusate Sodium 1 Tablet) 2 tablet PO BID PRN PRN PRN Reason: Constipation Sodium Chloride (0.9% Saline Lock 10 Ml Syringe) 10 - 40 ml IV UD PRN PRN Reason: SALINE FLUSH Last Admin: 03/28/20 10:16 Dose: 10 ml Documented by: Medical Necessity - Tobacco Use Smoking Status: Never smoker Tobacco Use: Non-smoker Assessment/Plan All Active Problems (Last Reviewed 03/05/20 @ 10:00 by Montserrat Villa PA, PA) COVID-19 (Acute) H/O coronary artery bypass surgery (Resolved 01/2016) Atypical chest pain (Resolved) The patient is an 85 y/o F w/ PMHx: Chronically elevated troponins, CKD stage III, Hypothyroidism, CAD s/p CABG x 2 VALERIO-LAD, 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 1. Acute Hypoxic Respiratory Failure secondary to Bilateral Pneumonia secondary to Acute Viral Syndrome, COVID-19, Possibly concurrent HCAP: Work-up in the ED included T101, heart rate 130 initially, BP 136/77, respiratory rate 27, 88% on room air with improvement to 96% on 2 L nasal cannula, CBC with WC 10.7, hemoglobin 10.9, platelet 155 with left shift and lymphopenia, BMP with chloride 109, BUN/creatinine 40/1.49, glucose 113, lactic acid 1.8, troponin 0.286, CXR with progression of BL pulmonary infiltrates, initial EKG with atrial fibrillation with RVR. In the ED patient administered Zosyn, vancomycin, Decadron therapy. Admitted to the COVID unit given worsening status, maintained on oxygen with wean as tolerated to room air, PRN albuterol, HOB, IS parameters w/ pending sputum cultures, respiratory viral panel negative and urine antigens negative, D-dimer 1.60 currently anticoagulated thus will review CTPA considerations with ID, BNP 2192.9, LDH 569, procalcitonin 0.66, TCK 111, trop 0.286 with trending as noted. Infectious disease consulted and following, completed 10 days of Decadron, initially on IV vancomycin and Zosyn however patient with onset 03/26/2020 diarrhea likely antibiotic therapy therefore transitioned to only Rocephin per infectious disease. Blood cultures 03/25/2020 with no growth. Sputum prelim culture with presumptive C albicans and staph aureus, final pending. Patient administered IV Lasix therapy upon presentation 03/26/2020 with clinical improvement and decreased oxygen requirements however 03/27/2020 electrolyte alterations therefore discontinued and transition back to oral home regimen however worsened respiratory status over the last 48 hours. Repeat BNP 03/29/2020 741.8, improved from initial presentation. [facility]/pulmonary critical care consulted, agreed with resumption of IV Lasix, will plan 03/29/2020 initiation of Lasix 40 mg IV once daily with continued close renal function monitoring. Currently still requiring 10 L or greater with any activity, currently on 5 L at rest. 2. PAF with RVR: Patient upon ED arrival with EKG with atrial fibrillation with RVR with nonspecific ST changes likely secondary to acute presentation as noted #1, improved following admission and treatment #1, maintain on cardiac telemetry, cardiac enzymes initially 0.286 with trending continued with impr ovement--> 0.181--> 0.148 x 2, magnesium level 2.2, continued on amiodarone, Eliquis and metoprolol therapy with increased dosage and continue treatment of #1. 3. Acute on Chronically Elevated Troponins likely secondary to Demand Ischemic secondary to #1, #2: Admission troponin 0.286, prior 03/13/20 0.108; however, 06/30/2017 0.219, maintained on telemetry, 0.286 with trending continued with improvement--> 0.181--> 0.148 x 2, mag normal, TSH low with free T4 1.67, given acute presentation and acute illness discussed with PCP and would plan follow-up once clinically improved outpatient. 4. Takotsubo cardiomyopathy: Continue home eliquis, Lasix, lisinopril, metoprolol regimen, not on statin therapy, defer to outpatient. 03/24/2018 echocardiogram with normal LV size, normal LV systolic function, EF 55%, stage III diastolic dysfunction, mild LUX with bioprosthetic aortic valve. 5. 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 Most recent echo as noted. 6. CKD stage III: Admission BUN/Cr 40/1.49, baseline Cr appears primarily 1.4- 1.6, 03/26/20 BUN/Cr 45/1.46--> 03/27/2020 BUN/creatinine 58/1.58, likely mild increase secondary to IV Lasix usage as noted, attempted to resume patient home oral regimen however worsened pulmonary status as noted above, 03/29/2020 transition back to Lasix 40 mg IV once daily with first dose this a.m., 03/29/2020 BUN/creatinine 57/1.58, continue to closely monitor. 7. Hypothyroidism: Continue home synthroid regimen, TSH low, FT4 1.67 which was discussed with primary care physician as obtained in the acute setting therefore recommendation for repeat outpatient once acute presentation has resolved which PCP is amenable. 8. Chronic anemia: Admission Hgb 10.9, baseline appears 10-11, 03/29/2020 hemoglobin 10, continue to trend. 9. Hypokalemia: Admission K+ 3.3, supplementation given, 03/29/2020 K+ 4.0, continue to closely monitor as resumption of IV Lasix as noted. 10. PUD: We will continue patient home PPI. 11. DVT Prophylaxis: SCDs, continue home eliquis regimen. 12. CODE status: DNR-CCA, no intubation status. Inpatient E&M: [id number] [facility] L[facility]
[2020-03-29 06:49] LABS: ALB/GLOB Ratio 0.5 RATIO (0.9-2.4); AST(SGOT) 37 U/L (15-37); Alanine Aminotransfer ALT/SGPT 39 U/L (13-56); Albumin, Serum 2.1 g/dL (3.2-5.0); Alkaline Phosphatase 83 U/L (45-117); Anion Gap 7 (5-15); BUN 57 mg/dL (7-18); BUN/Creat Ratio 36.1 RATIO (10-20); Calcium,Total 8.5 mg/dL (8.5-10.1); Chloride 109 mmol/L (98-107); Creatinine, Serum 1.58 mg/dL (0.55-1.02); EST Glomerular Filtration Rate 33 mL/min (>60); Est Glom Filt Rate - Afr Amer 40 mL/min (>60); Estimated Creatinine Clearance 19.38 ml/min; Globulin 4.1 g/dL (2.2-4.2); Glucose 92 mg/dL (74-106); Protein, Total 6.2 g/dL (6.4-8.2); Sodium Level 141 mmol/L (136-145)
--- NOTE | 2020-03-29 07:31 | PCM.CONS.PUL ---
Reason for Consult Date of Consultation: 03/29/20 Reason for Consultation: Acute hypoxemic respiratory failure secondary to COVID-19 pneumonia History of Present Illness: The patient is an 85-year-old female, with a history as outlined below, who initially presented to the emergency department on March 25 with shortness of breath, cough and sputum production. This is now the patient's second hospitalization over the course of the last month due to Covid related issues. The patient's first hospitalization occurred on March 13, which is when she was initially diagnosed with her Covid illness. The patient was discharged home after having completed just a couple days of remdesivir and Decadron. She did not require supplemental oxygen at the time of her discharge on March 15. The patient was then evaluated in the emergency department on March 22 with cough and shortness of breath. The patient was again discharged home. On presentation to the emergency department, the patient was noted to be febrile with a temperature of 101 ?F. She was notably tachycardic and tachypneic as well, saturating 88% on room air. Laboratory evaluation revealed a normal white blood cell count. D-dimer was elevated at 1.6. Creatinine was elevated at 1.49. Lactate was within normal limits. Troponin was elevated to 0.286. BNP was elevated to 2192. The patient was subsequently completed to the coronavirus cohort unit for further management. To date, the patient has been evaluated by infectious diseases and remains on antibiotics. She is currently maintaining appropriate oxygen saturations on 5 L/min via nasal cannula. The patient does have a known history of coronary artery disease status post bypass surgery along with bioprosthetic aortic valve, diastolic dysfunction, pulmonary hypertension and paroxysmal atrial fibrillation. Surface echocardiogram from March 2018 revealed stage III diastolic dysfunction. 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) Nonrheumatic mitral (valve) insufficiency (Chronic) Secondary pulmonary arterial hypertension (Chronic) Paroxysmal atrial fibrillation (Chronic) Takotsubo cardiomyopathy (Chronic) Atherosclerosis of coronary artery of [place] heart without angina pectoris (Chronic) CABG x 2 VALERIO-LAD, 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/2015 History of aortic valve replacement with bioprosthetic valve (Chronic 01/2016) Medical History: Medical History (Last Reviewed 03/05/20 @ 10:00 by Montserrat Villa PA, PA) Essential hypertension (Chronic) I10 Chronic combined systolic and diastolic CHF (congestive heart failure) (Chronic) I50.42 Nonrheumatic pulmonary valve insufficiency (Chronic) I37.1 Nonrheumatic aortic valve insufficiency (Chronic) I35.1 Nonrheumatic mitral (valve) insufficiency (Chronic) I34.0 Secondary pulmonary arterial hypertension (Chronic) I27.21 Paroxysmal atrial fibrillation (Chronic) I48.0 Takotsubo cardiomyopathy (Chronic) I51.81 Atherosclerosis of coronary artery of [place] heart without angina pectoris (Chronic) I25.10 CABG x 2 VALERIO-LAD, 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/2015 Acquired hypothyroidism E03.9 Anemia D64.9 Anxiety and depression F41.9, F32.9 Chronic kidney disease, stage 3 N18.3 Esophagitis K20.9 Insomnia G47.00 Obesity (BMI 30-39.9) E66.9 PUD (peptic ulcer disease) K27.9 Acute kidney injury N17.9 Allergies atorvastatin [From Lipitor] Adverse Reaction (Verified 03/22/20 09:17) Pain in joints niacin Adverse Reaction (Verified 03/22/20 09:17) Pain in joints pregabalin [From Lyrica] Adverse Reaction (Verified 03/25/20 16:20) leg pain simvastatin [From Zocor] Adverse Reaction (Verified 03/22/20 09:17) Pain in joints Home Medications: Ambulatory Orders Medication Instructions Recorded Nitroglycerin (INPATIENT USE) 0.4 mg SUBLINGUAL Q5M PRN 02/24/16 [Nitrostat] levothyroxine 125 mcg tablet 125 mcg PO DAILY #30 tab 11/14/18 metoprolol tartrate 25 mg tablet 12.5 mg PO BID tab 12/31/19 hydrocodone 5 mg-acetaminophen 300 1 tab PO Q6H PRN 02/29/20 mg tablet amiodarone 200 mg tablet 100 mg PO DAILY tab 03/05/20 amlodipine 2.5 mg tablet 2.5 mg PO DAILY tab 03/05/20 Clopidogrel Bisulfate [Clopidogrel] 75 mg PO DINNER 03/13/20 Furosemide 40 mg PO BID 03/13/20 Lisinopril [Prinivil] 10 mg PO DAILY 03/13/20 Omeprazole 20 mg PO DAILY 03/13/20 Apixaban [Eliquis] 5 mg PO BID 03/25/20 Surgical History: Surgical History (Last Reviewed 03/05/20 @ 10:00 by Montserrat MOELELR, PA) History of coronary artery stent placement (Chronic) Onset Date: 2014 Z95.5 PCI-KHOI-LAD 2014 H/O coronary artery bypass surgery (Resolved) Onset Date: 01/2016 Z95.1 CABG x 2 VALERIO-LAD, 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/2015 History of aortic valve replacement with bioprosthetic valve (Chronic) Onset Date: 01/2016 Z95.3 History of cardioversion Onset Date: 12/24/19 Z98.890 Surgical History: coronary bypass surgery Psychiatric History: No pertinent psych hx Smoking Status: Never smoker Tobacco Use: Non-smoker - *Family History Maternal Family History: Family History (Last Reviewed 03/05/20 @ 10:00 by Montserrat MOELLER, PA) Mother Diabetes Heart disease Other CAD (coronary artery disease) History Items: Diabetes, Heart Disease Review of Systems Constitutional: Reports: Weakness, Fatigue. Denies: Chills, Fever Eyes: Denies: Blurred vision, Double vision HEENT: Denies: Head Aches, Sinus Congestion, Sinus Drainage Cardiovascular: Denies: Chest Pain, Palpitations Respiratory: Reports: Cough, Shortness of Breath Gastrointestinal: Denies: Abdominal Pain, Nausea, Vomiting Genitourinary: Denies: Dysuria Musculoskeletal: Denies: Joint Pain, Joint Tenderness Skin: Denies: Rash, Wounds Neurological: Denies: Numbness, Tingling, Focal weakness Psychiatric: Denies: Anxiety, Depression, Homicidal Ideations, Suicidal Ideations Hematologic/ Lymphatic: Reports: Anemia Patient Problems: Active and Suspected Problems (Last Reviewed 03/05/20 @ 10:00 by Montserrat MOELLER, PA) COVID-19 (Acute) Objective: The patient's most recent lab work, culture data and imaging studies have all been personally reviewed. - Physical Exam Vitals/I&O's: Vital Signs Temp Pulse Resp BP Pulse Ox 98.0 F 74 20 H 124/61 H 95 03/29/20 02:10 03/29/20 07:12 03/29/20 02:10 03/29/20 02:10 03/29/20 02:10 Oxygen Flow Rate (L/min) 5 Oxygen Delivery Method Nasal Cannula Weight: 171 lb 8.314 oz Body Mass Index (BMI) 33.5 Intake and Output for Last 24 Hours 03/27/20 03/28/20 03/29/20 23:59 23:59 23:59 Intake Total 640 / 640 770 / 770 Output Total 700 / 700 Balance -60 / -60 770 / 770 General: Alert, Cooperative, No apparent distress HEENT: Atraumatic, PERRLA, Normocephalic Oral: Moist Mucosa Neck: Supple, No Nodes, Trachea Midline Lungs: No rhonchi, No wheeze, No rales, Diminished Cardiovascular: Regular rate, Regular Rhythm Abdomen: Bowel Sounds Present, Soft, Non Tender Extremities: No clubbing, No cyanosis, Edema Skin: No breakdown Musculoskeletal: No Tenderness to Palpation of Joints or Extremities Lymphatic: No Cervical, Supraclavicular, or Inguinal Adenopathy Neurological: Cranial nerves II-XII grossly intact, Neuro grossly intact Psych/Mental Status: Flat Affect Labs (Last 48 Hours) 03/28/20 03/28/20 03/29/20 05:50 05:50 05:58 WBC 12.8 H 10.9 RBC 3.51 L 3.45 L Hgb 10.3 L 10.0 L Hct 33.0 L 33.0 L MCV 94.0 95.7 MCH 29.3 29.0 MCHC 31.2 L 30.3 L RDW Std Deviation 48.3 H 49.3 H RDW Coeff of Leatha 13.9 14.1 Plt Count 130 L 138 L MPV 12.6 H 12.0 Immature Gran % (Auto) 0.700 0.900 Neut % (Auto) 85.3 H 83.4 H Lymph % (Auto) 8.5 L 9.0 L Haines % (Auto) 4.9 5.9 Eos % (Auto) 0.5 0.6 Baso % (Auto) 0.1 0.2 Absolute Neuts (auto) 10.9 H 9.1 H Absolute Lymphs (auto) 1.09 0.98 Nucleated RBC % 0 0 Sodium 141 Potassium 3.8 Chloride 110 H Carbon Dioxide 22.0 Anion Gap 9 BUN 55 H Creatinine 1.60 H Estim Creat Clear Calc 19.14 Est GFR (MDRD) Af Amer 40 L Est GFR (MDRD) Non-Af 33 L BUN/Creatinine Ratio 34.4 H Glucose 88 Calcium 8.3 L Total Bilirubin 0.50 AST 48 H ALT 46 Alkaline Phosphatase 83 Total Protein 6.2 L Albumin 2.1 L Globulin 4.1 Albumin/Globulin Ratio 0.5 L 03/29/20 05:58 WBC RBC Hgb Hct MCV MCH MCHC RDW Std Deviation RDW Coeff of Leatha Plt Count MPV Immature Gran % (Auto) Neut % (Auto) Lymph % (Auto) Haines % (Auto) Eos % (Auto) Baso % (Auto) Absolute Neuts (auto) Absolute Lymphs (auto) Nucleated RBC % Sodium 141 Potassium 4.0 Chloride 109 H Carbon Dioxide 25.0 Anion Gap 7 BUN 57 H Creatinine 1.58 H Estim Creat Clear Calc 19.38 Est GFR (MDRD) Af Amer 40 L Est GFR (MDRD) Non-Af 33 L BUN/Creatinine Ratio 36.1 H Glucose 92 Calcium 8.5 Total Bilirubin 0.50 AST 37 ALT 39 Alkaline Phosphatase 83 Total Protein 6.2 L Albumin 2.1 L Globulin 4.1 Albumin/Globulin Ratio 0.5 L Microbiology 03/27/20 06:25 Sputum, Expectorated/Coughed Gram Stain - Final 03/27/20 06:25 Sputum, Expectorated/Coughed Respiratory Culture - Preliminary Presumptive C albicans 03/27/20 Unknown Interface Orders C. difficile DNA Amplification - Final 03/25/20 15:05 Blood Culture (Wb) #2 - Anticubital Right Blood Culture - Preliminary No growth in 48 hours. 03/25/20 14:54 Blood Culture (Wb) - Anticubital Left Blood Culture - Preliminary No growth in 48 hours. Clinical Impression(s) from Imaging Studies Chest X-Ray 03/25/20 14:42 IMPRESSION: Since prior study, there has been progressive bilateral pulmonary infiltrates. Electronically Signed: Manish Zapata MD at 15:23 EST , Service support , Current Medications Acetaminophen (Acetaminophen 325 Mg Tablet) 650 mg PO Q6H PRN PRN PRN Reason: Pain Score 1-10/Temp > 100.7 F Hydrocodone Bitart/Acetaminophen (Hydrocodone Bitartrate/Apap 5/325 Tablet) 1 tablet PO Q6H PRN PRN PRN Reason: Pain Score 4-10 Last Admin: 03/26/20 14:38 Dose: 1 tablet Documented by: Al Hydroxide/Mg Hydroxide (Mag Hydrox/Al Hydrox/Simeth 30 Ml Udc) 30 ml PO Q6H PRN PRN PRN Reason: Gastric Burning Albuterol Sulfate (Albuterol Sulfate 8 Gm Inhaler (60 Puffs)) 1 puff INHALATION Q2H PRN PRN PRN Reason: Shortness of Breath/Wheezing Amiodarone HCl (Amiodarone 200 Mg Tablet) 100 mg PO DAILY REPLACED BY [facility] Last Admin: 03/28/20 10:14 Dose: 100 mg Documented by: Amlodipine Besylate (Amlodipine 2.5 Mg Tablet) 2.5 mg PO DAILY REPLACED BY [facility] Last Admin: 03/28/20 10:14 Dose: 2.5 mg Documented by: Apixaban (Apixaban 5 Mg Tablet) 5 mg PO BID REPLACED BY [facility] Last Admin: 03/28/20 20:14 Dose: 5 mg Documented by: Calamine/Phenol (Menthol/Lanolin/Calamine/Znox 113 Gm Tube) 1 applic TOPICAL 4X/DAY REPLACED BY [facility]; Protocol Last Admin: 03/28/20 20:15 Dose: 1 applicatio Documented by: Clopidogrel Bisulfate (Clopidogrel Bisulfate 75 Mg Tablet) 75 mg PO DINNER REPLACED BY [facility] Last Admin: 03/28/20 17:40 Dose: 75 mg Documented by: Furosemide (Furosemide 40 Mg Tablet) 40 mg PO 1000,1700 REPLACED BY [facility] Last Admin: 03/28/20 17:40 Dose: 40 mg Documented by: Guaifenesin (Guaifenesin 1,200 Mg Tablet) 1,200 mg PO BID REPLACED BY [facility] Last Admin: 03/28/20 20:14 Dose: 1,200 mg Documented by: Hydralazine HCl (Hydralazine 20 Mg/Ml Vial) 10 mg IV Q4H PRN PRN PRN Reason: SBP > 160 Ceftriaxone Sodium 2 gm/ (Sodium Chloride) 50 mls @ 100 mls/hr IV Q24 REPLACED BY [facility] Last Infusion: 03/28/20 10:44 Dose: Infused Documented by: Sodium Chloride () 250 mls @ 15 mls/hr IV .[id number] PRN PRN Reason: Saline Flush Sodium Chloride () 250 mls @ 15 mls/hr IV .[id number] PRN PRN Reason: Additional IVPB Infusion Lactobacillus Acidophilus (Lactobacillus Acidophilus) 1 tablet PO BID REPLACED BY [facility] Last Admin: 03/28/20 20:14 Dose: 1 tablet Documented by: Levothyroxine Sodium (Levothyroxine 125 Mcg Tablet) 125 mcg PO DAILY REPLACED BY [facility] Last Admin: 03/28/20 10:14 Dose: 125 mcg Documented by: Lisinopril (Lisinopril 10 Mg Tablet) 10 mg PO DAILY REPLACED BY [facility] Last Admin: 03/28/20 10:15 Dose: 10 mg Documented by: Loperamide HCl (Loperamide 2 Mg Capsule) 2 mg PO Q2H PRN PRN PRN Reason: diarrhea, loose stools Last Admin: 03/27/20 20:49 Dose: 2 mg Documented by: Melatonin (Melatonin 3 Mg Tablet) 3 mg PO QHS PRN PRN PRN Reason: INSOMNIA Last Admin: 03/28/20 20:17 Dose: 3 mg Documented by: Metoprolol Tartrate (Metoprolol Tartrate 25 Mg Tablet) 12.5 mg PO BID REPLACED BY [facility] Last Admin: 03/28/20 20:14 Dose: 12.5 mg Documented by: Miscellaneous Information (Inhaler, Assist Devices 1 Each Spacer) 1 each INHALATION Q2H PRN PRN PRN Reason: Albuterol MDI Morphine Sulfate (Morphine 2 Mg/Ml Syringe) 2 mg IV Q3H PRN PRN PRN Reason: Pain Score 6-10 Nitroglycerin (Nitroglycerin (Inpatient Use) 0.4 Mg Tab.Subl) 0.4 mg SUBLINGUAL Q5M PRN PRN Reason: CARDIAC/CHEST PAIN Pantoprazole Sodium (Pantoprazole Sodium 20 Mg Tablet) 20 mg PO DAILY REPLACED BY [facility] Last Admin: 03/28/20 10:15 Dose: 20 mg Documented by: Prochlorperazine Edisylate (Prochlorperazine 10 Mg/2 Ml Vial) 5 mg IV Q4H PRN PRN PRN Reason: Breakthrough nausea/vomiting Senna/Docusate Sodium (Senna/Docusate Sodium 1 Tablet) 2 tablet PO BID PRN PRN PRN Reason: Constipation Sodium Chloride (0.9% Saline Lock 10 Ml Syringe) 10 - 40 ml IV UD PRN PRN Reason: SALINE FLUSH Last Admin: 03/28/20 10:16 Dose: 10 ml Documented by: Assessment/Plan All Active Problems (Last Reviewed 03/05/20 @ 10:00 by Montserrat Villa PA, PA) COVID-19 (Acute) H/O coronary artery bypass surgery (Resolved 01/2016) Atypical chest pain (Resolved) RECOMMENDATIONS: 1. Wean supplemental oxygen to maintain saturations at or above 90%. 2. Recheck BNP and attempt further diuretic challenge as tolerated by hemodynamics and renal function. 3. Continue antimicrobials per ID recommendations. 4. Encourage incentive spirometer use and mobilize patient as tolerated. 5. Continue systemic anticoagulation with Eliquis. IMPRESSIONS: 1. Acute hypoxemic respiratory failure, likely the sequelae of prior Covid infection and decompensated heart failure The patient was already previously treated with remdesivir and Decadron. She remains on antimicrobials under the discretion of infectious diseases over suspicion for possible community-acquired pneumonia. Plan to continue supplemental oxygen to maintain saturations at or above 90%. Will recheck BNP this morning. Nevertheless, I would recommend further diuretic challenge as tolerated by hemodynamics and renal function. The patient remains on systemic anticoagulation with Eliquis. 2. History of coronary artery disease status post CABG/bioprosthetic aortic valve/diastolic heart failure/paroxysmal atrial fibrillation Complicates care, management, recovery and prognosis. Continue home medications as indicated. This note was generated with [employer] dictation software. It may contain incorrect words, spelling, and punctuation that were not noted in checking the note before signing. Inpatient E&M: 86194 Init Hosp L3
[2020-03-29 08:32] LABS: BNP,B-Type NATRIURETIC PEPTIDE 741.8 pg/mL (0-100)
[2020-03-29] MEDS: 0.9% Saline Lock 10 ML Syringe IV ×2 (09:06→20:40)
[2020-03-29] MEDS: amLODIPine 2.5 MG Tablet PO (09:07)
[2020-03-29] MEDS: Amiodarone 200 MG Tablet 100 MG PO (09:07)
[2020-03-29] MEDS: guaiFENesin 1,200 MG Tablet 1200 MG PO ×2 (09:07→20:40)
[2020-03-29] MEDS: Pantoprazole Sodium 20 MG Tablet PO (09:08)
[2020-03-29] MEDS: Metoprolol Tartrate 25 MG Tablet 12.5 MG PO ×2 (09:08→20:39)
[2020-03-29] MEDS: Lisinopril 10 MG Tablet PO (09:08)
[2020-03-29] MEDS: Levothyroxine 125 MCG Tablet PO (09:09)
[2020-03-29] MEDS: Menthol/Lanolin/Calamine/Znox 113 GM Tube 1 APPLIC TOPICAL ×4 (09:09→20:40)
[2020-03-29] MEDS: Albuterol Sulfate 8 gm Inhaler (60 puffs) 1 PUFF INHALATION ×2 (09:10→16:52)
[2020-03-29] MEDS: APIXABAN 5 MG TABLET PO ×2 (09:11→20:39)
[2020-03-29] MEDS: Furosemide 40 MG/4 ML Vial IV (09:18)
[2020-03-29] MEDS: Clopidogrel Bisulfate 75 MG Tablet PO (16:51)
[2020-03-29] MEDS: Loperamide 2 MG Capsule PO (20:39)
[2020-03-29] MEDS: MELATONIN 3 MG TABLET PO (20:39)
[2020-03-30] VITALS (13 sets, daily range): BP systolic 114–140; BP diastolic 46–99; PULSE 72–92; RESP 15–20; TEMP 36.4–36.9; O2SAT 93–97
[2020-03-30 05:56] LABS: Absolute Lymphocyte Count 0.76 X10^3/uL (0.83-4.51); Absolute Neutrophil Count 9.3 X10^3/uL (2.0-7.7); Basophil# 0.02 X10^3/uL; Basophil% 0.2 % (0-1); Eosinophil# 0.09 X10^3/uL; Eosinophils% 0.8 % (0-5); Hemoglobin 9.9 g/dL (12.0-15.0); Lymphocyte # 0.76 X10^3/ul (4.0); Lymphocyte % 6.9 % (19-41); Mean Corp Hgb Conc 30.9 g/dL (32-36); Mean Corpuscular Hgb 29.8 pg (27.0-32.0); Mean Corpuscular Volume 96.4 fL (81-99); Mean Platelet Vol. 11.4 fl (6.2-12.0); Monocyte# 0.73 X10^3/uL; Monocyte% 6.6 % (0-10); NRBC Flagged by Analyzer 0 % (0-5); Neutrophil % 84.2 % (47-70); Platelet Count 157 K/mm3 (150-450); Red Blood Count 3.32 M/mm3 (4.2-5.4)
--- NOTE | 2020-03-30 06:26 | PCM.PN.PUL ---
Patient Problems: Active and Suspected Problems (Last Reviewed 03/05/20 @ 10:00 by Montserrat MOELLER, PA) COVID-19 (Acute) Subjective: The patient was seen and examined at the bedside this morning. Events from the last 24 hours have been reviewed. The patient is currently afebrile, hemodynamically stable and maintaining appropriate oxygen saturations on 5 L/min via nasal cannula. The patient was transition from p.o. to IV Lasix 40 mg daily yesterday. Creatinine is stable this morning at 1.50. Objective: The patient's most recent lab work, culture data and imaging studies have all been personally reviewed. Surface echocardiogram from March 2018 revealed stage III diastolic dysfunction. - Physical Exam Vitals/I&O's: Vital Signs Temp Pulse Resp BP Pulse Ox 98.3 F 73 19 H 133/74 H 94 03/30/20 05:45 03/30/20 05:45 03/30/20 05:45 03/30/20 05:45 03/30/20 05:45 Oxygen Flow Rate (L/min) 5 Oxygen Delivery Method Nasal Cannula Weight: 171 lb 8.314 oz Body Mass Index (BMI) 33.5 Intake and Output for Last 24 Hours 03/28/20 03/29/20 03/30/20 23:59 23:59 23:59 Intake Total 770 / 770 890 / 890 120 / 120 Balance 770 / 770 890 / 890 120 / 120 General: Alert, Cooperative, No apparent distress HEENT: Atraumatic, Normocephalic Oral: No Gingival or Mucosal Lesions/ Ulcerations Neck: Supple, No Nodes, Trachea Midline Lungs: No rhonchi, No wheeze, No rales, Diminished Cardiovascular: Regular rate, Regular Rhythm Abdomen: Bowel Sounds Present, Soft, Non Tender Extremities: No clubbing, No cyanosis, Edema Skin: No breakdown Musculoskeletal: No Tenderness to Palpation of Joints or Extremities, No Muscle Wasting Lymphatic: No Cervical, Supraclavicular, or Inguinal Adenopathy Neurological: Cranial nerves II-XII grossly intact, Neuro grossly intact Psych/Mental Status: Flat Affect Labs (Last 48 Hours) 03/28/20 03/29/20 03/29/20 05:50 05:58 05:58 WBC 10.9 RBC 3.45 L Hgb 10.0 L Hct 33.0 L MCV 95.7 MCH 29.0 MCHC 30.3 L RDW Std Deviation 49.3 H RDW Coeff of Leatha 14.1 Plt Count 138 L MPV 12.0 Immature Gran % (Auto) 0.900 Neut % (Auto) 83.4 H Lymph % (Auto) 9.0 L Slope % (Auto) 5.9 Eos % (Auto) 0.6 Baso % (Auto) 0.2 Absolute Neuts (auto) 9.1 H Absolute Lymphs (auto) 0.98 Nucleated RBC % 0 Sodium 141 141 Potassium 3.8 4.0 Chloride 110 H 109 H Carbon Dioxide 22.0 25.0 Anion Gap 9 7 BUN 55 H 57 H Creatinine 1.60 H 1.58 H Estim Creat Clear Calc 19.14 19.38 Est GFR (MDRD) Af Amer 40 L 40 L Est GFR (MDRD) Non-Af 33 L 33 L BUN/Creatinine Ratio 34.4 H 36.1 H Glucose 88 92 Calcium 8.3 L 8.5 Total Bilirubin 0.50 0.50 AST 48 H 37 ALT 46 39 Alkaline Phosphatase 83 83 B-Natriuretic Peptide Total Protein 6.2 L 6.2 L Albumin 2.1 L 2.1 L Globulin 4.1 4.1 Albumin/Globulin Ratio 0.5 L 0.5 L 03/29/20 03/30/20 03/30/20 05:58 05:35 05:35 WBC 11.0 RBC 3.32 L Hgb 9.9 L Hct 32.0 L MCV 96.4 MCH 29.8 MCHC 30.9 L RDW Std Deviation 50.0 H RDW Coeff of Leatha 14.0 Plt Count 157 MPV 11.4 Immature Gran % (Auto) 1.300 H Neut % (Auto) 84.2 H Lymph % (Auto) 6.9 L Slope % (Auto) 6.6 Eos % (Auto) 0.8 Baso % (Auto) 0.2 Absolute Neuts (auto) 9.3 H Absolute Lymphs (auto) 0.76 L Nucleated RBC % 0 Sodium Pending Potassium Pending Chloride Pending Carbon Dioxide Pending Anion Gap Pending BUN Pending Creatinine Pending Estim Creat Clear Calc Est GFR (MDRD) Af Amer Pending Est GFR (MDRD) Non-Af Pending BUN/Creatinine Ratio Pending Glucose Pending Calcium Pending Total Bilirubin Pending AST Pending ALT Pending Alkaline Phosphatase Pending B-Natriuretic Peptide 741.8 H Total Protein Pending Albumin Pending Globulin Albumin/Globulin Ratio Microbiology 03/27/20 06:25 Sputum, Expectorated/Coughed Gram Stain - Final 03/27/20 06:25 Sputum, Expectorated/Coughed Respiratory Culture - Preliminary Presumptive C albicans Staphylococcus aureus Clinical Impression(s) from Imaging Studies Chest X-Ray 03/25/20 14:42 IMPRESSION: Since prior study, there has been progressive bilateral pulmonary infiltrates. Electronically Signed: Manish Zapata MD at 15:23 EST , Service support , Current Medications Acetaminophen (Acetaminophen 325 Mg Tablet) 650 mg PO Q6H PRN PRN PRN Reason: Pain Score 1-10/Temp > 100.7 F Hydrocodone Bitart/Acetaminophen (Hydrocodone Bitartrate/Apap 5/325 Tablet) 1 tablet PO Q6H PRN PRN PRN Reason: Pain Score 4-10 Last Admin: 03/26/20 14:38 Dose: 1 tablet Documented by: Al Hydroxide/Mg Hydroxide (Mag Hydrox/Al Hydrox/Simeth 30 Ml Udc) 30 ml PO Q6H PRN PRN PRN Reason: Gastric Burning Albuterol Sulfate (Albuterol Sulfate 8 Gm Inhaler (60 Puffs)) 1 puff INHALATION Q2H PRN PRN PRN Reason: Shortness of Breath/Wheezing Last Admin: 03/29/20 16:52 Dose: 1 puff Documented by: Amiodarone HCl (Amiodarone 200 Mg Tablet) 100 mg PO DAILY [facility] Last Admin: 03/29/20 09:07 Dose: 100 mg Documented by: Amlodipine Besylate (Amlodipine 2.5 Mg Tablet) 2.5 mg PO DAILY [facility] Last Admin: 03/29/20 09:07 Dose: 2.5 mg Documented by: Apixaban (Apixaban 5 Mg Tablet) 5 mg PO BID [facility] Last Admin: 03/29/20 20:39 Dose: 5 mg Documented by: Calamine/Phenol (Menthol/Lanolin/Calamine/Znox 113 Gm Tube) 1 applic TOPICAL BID [facility]; Protocol Last Admin: 03/29/20 20:40 Dose: 1 applicatio Documented by: Clopidogrel Bisulfate (Clopidogrel Bisulfate 75 Mg Tablet) 75 mg PO DINNER [facility] Last Admin: 03/29/20 16:51 Dose: 75 mg Documented by: Furosemide (Furosemide 40 Mg/4 Ml Vial) 40 mg IV DAILY [facility] Last Admin: 03/29/20 09:18 Dose: 40 mg Documented by: Guaifenesin (Guaifenesin 1,200 Mg Tablet) 1,200 mg PO BID [facility] Last Admin: 03/29/20 20:40 Dose: 1,200 mg Documented by: Hydralazine HCl (Hydralazine 20 Mg/Ml Vial) 10 mg IV Q4H PRN PRN PRN Reason: SBP > 160 Ceftriaxone Sodium 2 gm/ (Sodium Chloride) 50 mls @ 100 mls/hr IV Q24 [facility] Last Infusion: 03/29/20 09:36 Dose: Infused Documented by: Sodium Chloride () 250 mls @ 15 mls/hr IV .[id number] PRN PRN Reason: Saline Flush Sodium Chloride () 250 mls @ 15 mls/hr IV .[id number] PRN PRN Reason: Additional IVPB Infusion Lactobacillus Acidophilus (Lactobacillus Acidophilus) 1 tablet PO BID [facility] Last Admin: 03/29/20 20:40 Dose: 1 tablet Documented by: Levothyroxine Sodium (Levothyroxine 125 Mcg Tablet) 125 mcg PO DAILY [facility] Last Admin: 03/29/20 09:09 Dose: 125 mcg Documented by: Lisinopril (Lisinopril 10 Mg Tablet) 10 mg PO DAILY [facility] Last Admin: 03/29/20 09:08 Dose: 10 mg Documented by: Loperamide HCl (Loperamide 2 Mg Capsule) 2 mg PO Q2H PRN PRN PRN Reason: diarrhea, loose stools Last Admin: 03/29/20 20:39 Dose: 2 mg Documented by: Melatonin (Melatonin 3 Mg Tablet) 3 mg PO QHS PRN PRN PRN Reason: INSOMNIA Last Admin: 03/29/20 20:39 Dose: 3 mg Documented by: Metoprolol Tartrate (Metoprolol Tartrate 25 Mg Tablet) 12.5 mg PO BID [facility] Last Admin: 03/29/20 20:39 Dose: 12.5 mg Documented by: Miscellaneous Information (Inhaler, Assist Devices 1 Each Spacer) 1 each INHALATION Q2H PRN PRN PRN Reason: Albuterol MDI Morphine Sulfate (Morphine 2 Mg/Ml Syringe) 2 mg IV Q3H PRN PRN PRN Reason: Pain Score 6-10 Nitroglycerin (Nitroglycerin (Inpatient Use) 0.4 Mg Tab.Subl) 0.4 mg SUBLINGUAL Q5M PRN PRN Reason: CARDIAC/CHEST PAIN Pantoprazole Sodium (Pantoprazole Sodium 20 Mg Tablet) 20 mg PO DAILY [facility] Last Admin: 03/29/20 09:08 Dose: 20 mg Documented by: Prochlorperazine Edisylate (Prochlorperazine 10 Mg/2 Ml Vial) 5 mg IV Q4H PRN PRN PRN Reason: Breakthrough nausea/vomiting Senna/Docusate Sodium (Senna/Docusate Sodium 1 Tablet) 2 tablet PO BID PRN PRN PRN Reason: Constipation Sodium Chloride (0.9% Saline Lock 10 Ml Syringe) 10 - 40 ml IV UD PRN PRN Reason: SALINE FLUSH Last Admin: 03/29/20 20:40 Dose: 10 ml Documented by: Medical Necessity - Tobacco Use Smoking Status: Never smoker Tobacco Use: Non-smoker Assessment/Plan All Active Problems (Last Reviewed 03/05/20 @ 10:00 by Montserrat MOELLER, PA) COVID-19 (Acute) H/O coronary artery bypass surgery (Resolved 01/2016) Atypical chest pain (Resolved) RECOMMENDATIONS: 1. Wean supplemental oxygen to maintain saturations at or above 90%. 2. Continue further attempts at diuresis as tolerated by hemodynamics and renal function. 3. Continue antimicrobials per ID recommendations. 4. Encourage incentive spirometer use and mobilize patient as tolerated. 5. Continue systemic anticoagulation with Eliquis. IMPRESSIONS: 1. Acute hypoxemic respiratory failure, likely the sequelae of prior Covid infection and decompensated heart failure The patient was already previously treated with remdesivir and Decadron. She remains on antimicrobials under the discretion of infectious diseases over suspicion for possible community-acquired pneumonia. Plan to continue supplemental oxygen to maintain saturations at or above 90%. The patient will be continued on IV diuretic therapy as tolerated by hemodynamics and renal function. In addition, systemic anticoagulation with Eliquis will be continued. 2. History of coronary artery disease status post CABG/bioprosthetic aortic valve/diastolic heart failure/paroxysmal atrial fibrillation Complicates care, management, recovery and prognosis. Continue home medications as indicated. This note was generated with [employer] dictation software. It may contain incorrect words, spelling, and punctuation that were not noted in checking the note before signing. Inpatient E&M: 53582 Subs Hosp L2
[2020-03-30 06:27] LABS: ALB/GLOB Ratio 0.4 RATIO (0.9-2.4); AST(SGOT) 40 U/L (15-37); Alanine Aminotransfer ALT/SGPT 42 U/L (13-56); Albumin, Serum 1.9 g/dL (3.2-5.0); Alkaline Phosphatase 88 U/L (45-117); Anion Gap 6 (5-15); BUN 49 mg/dL (7-18); BUN/Creat Ratio 32.7 RATIO (10-20); Calcium,Total 8.5 mg/dL (8.5-10.1); Chloride 110 mmol/L (98-107); EST Glomerular Filtration Rate 35 mL/min (>60); Est Glom Filt Rate - Afr Amer 43 mL/min (>60); Estimated Creatinine Clearance 20.41 ml/min; Globulin 4.5 g/dL (2.2-4.2); Glucose 100 mg/dL (74-106); Protein, Total 6.4 g/dL (6.4-8.2); Sodium Level 143 mmol/L (136-145)
--- NOTE | 2020-03-30 07:15 | PCM.PN.HOSP ---
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 ED on 03/25/20 with increased dyspnea, worsening over the last 4-5 days with EMS evaluation with oxygenation 80% upon evaluation with transport to the ED for evaluation. Work-up in the ED included T101, heart rate 130 initially, BP 136/77, respiratory rate 27, 88% on room air with improvement to 96% on 2 L nasal cannula, CBC with WC 10.7, hemoglobin 10.9, platelet 155 with left shift and lymphopenia, BMP with chloride 109, BUN/creatinine 40/1.49, glucose 113, lactic acid 1.8, troponin 0.286, CXR with progression of BL pulmonary infiltrates, initial EKG with atrial fibrillation with RVR. In the ED patient administered Zosyn, vancomycin, Decadron therapy. Admitted to the COVID unit given worsening status, maintained on oxygen with wean as tolerated to room air, PRN albuterol, HOB, IS parameters w/ pending sputum cultures, respiratory viral panel negative and urine antigens negative, D-dimer 1.60 currently anticoagulated thus will review CTPA considerations with ID, BNP 2192.9, LDH 569, procalcitonin 0.66, TCK 111, trop 0.286 with trending as noted. Infectious disease consulted and following, completed 10 days of Decadron, initially on IV vancomycin and Zosyn however patient with onset 03/26/2020 diarrhea likely antibiotic therapy therefore transitioned to only Rocephin per infectious disease. Blood cultures 03/25/2020 with no growth. Sputum prelim culture with presumptive C albicans and staph aureus, final pending. Patient administered IV Lasix therapy upon presentation 03/26/2020 with clinical improvement and decreased oxygen requirements however 03/27/2020 electrolyte alterations therefore discontinued and transition back to oral home regimen however worsened respiratory status over the last 48 hours. Repeat BNP 03/29/2020 741.8, improved from initial presentation. Cage Clerk/pulmonary critical care consulted, agreed with resumption of IV Lasix, rstarted 03/29/20 and will continue with 40 mg IV lasix daily and continuously monitor renal function. Will plan repeat 03/31/20 AM oxygenation trial and if can maintain <6 L with exertion consider discharge but expect need for ongoing diuresis. PT/OT/CM for discharge planning. MRSA screen pending and if positive will add Vanc per discussion with Pulm/CC. Patient upon ED arrival with EKG with atrial fibrillation with RVR with nonspecific ST changes likely secondary to acute presentation as noted #1, improved following admission and treatment #1, maintain on cardiac telemetry, cardiac enzymes initially 0.286 with trending continued with improvement--> 0.181--> 0.148 x 2, magnesium level 2.2, continued on amiodarone, Eliquis and metoprolol therapy. 03/24/2018 echocardiogram with normal LV size, normal LV systolic function, EF 55%, stage III diastolic dysfunction, mild LUX with bioprosthetic aortic valve. Admission BUN/Cr 40/1.49, baseline Cr appears primarily 1.4-1.6, 03/26/20 BUN/Cr 45/1.46--> 03/27/2020 BUN/creatinine 58/1.58, likely mild increase secondary to IV Lasix usage as noted, attempted to resume patient home oral regimen however worsened pulmonary status as noted above, 03/29/2020 transition back to Lasix 40 mg IV once daily, 03/30/2020 BUN/creatinine 49/1.50, continue to closely monitor. Patient notes feeling improved following diuresis reinitiation of IV Lasix the day prior although still requiring 5 L nasal cannula at rest and greater than 8 L nasal cannula with exertion. Patient does feel improved from the day prior but still fatigued and significantly more so with any exertional attempts. Discussed with nursing staff and upon any ambulatory trials patient is extremely dyspneic and takes a significant amount of time to recover even to a normal level. Patient denies fevers, chills, nausea, emesis, abdominal pain, chest pain. Objective: Physical Examination: General: awake, alert, oriented x 3 and cooperative, seated upright in the bedside chair to [facility] unit bed, fatigued, NAD. Skin: normal color, turgor, no icterus, cyanosis. HEENT: AT/NC, EOMI, PERRLA, MMM. Lungs: Diminished breath sounds, greater bases, no obvious rales, rhonchi or wheezing but ongoing significant dyspnea with continued increased oxygen requirements upon exertion, currently on 5 L, using 8L with exertion with notable recovery time. Heart: Regular rate and rhythm, currently sinus rhythm; no gallop, rub audible. Abdomen: soft, obese, NTTP, ND, normal BS. Extremities: no cyanosis or clubbing, mild ankle nonpitting edema. Neurological: patient awake, alert, oriented as noted; cognitive function intact; pupils equally reactive to light and accomodation; cranial nerves II-XII grossly normal, moving all 4 extremities, no focal deficits, strength moderately to severely globally decreased secondary to acute presentation. Psychiatric: affect appears fatigued, no acute evidence of depressive or anxiety feelings. Vitals/I&O's: Vital Signs Temp Pulse Resp BP Pulse Ox 98.3 F 73 19 H 133/74 H 94 03/30/20 05:45 03/30/20 05:45 03/30/20 05:45 03/30/20 05:45 03/30/20 05:45 Oxygen Flow Rate (L/min) 5 Oxygen Delivery Method Nasal Cannula Weight: 171 lb 8.314 oz Body Mass Index (BMI) 33.5 Intake and Output for Last 24 Hours 03/28/20 03/29/20 03/30/20 23:59 23:59 23:59 Intake Total 770 / 770 890 / 890 120 / 120 Balance 770 / 770 890 / 890 120 / 120 Microbiology Past 72 Hours 03/27/20 06:25 Sputum, Expectorated/Coughed Gram Stain - Final 03/27/20 06:25 Sputum, Expectorated/Coughed Respiratory Culture - Preliminary Presumptive C albicans Staphylococcus aureus 03/27/20 Unknown Interface Orders C. difficile DNA Amplification - Final 03/25/20 15:05 Blood Culture (Wb) #2 - Anticubital Right Blood Culture - Preliminary No growth in 48 hours. 03/25/20 14:54 Blood Culture (Wb) - Anticubital Left Blood Culture - Preliminary No growth in 48 hours. Laboratory Results 03/29/20 05:58: B-Natriuretic Peptide 741.8 H 03/30/20 05:35: WBC 11.0, RBC 3.32 L, Hgb 9.9 L, Hct 32.0 L, MCV 96.4, MCH 29.8, MCHC 30.9 L, RDW Std Deviation 50.0 H, RDW Coeff of Leatha 14.0, Plt Count 157, MPV 11.4, Immature Gran % (Auto) 1.300 H, Neut % (Auto) 84.2 H, Lymph % (Auto) 6.9 L, [place] % (Auto) 6.6, Eos % (Auto) 0.8, Baso % (Auto) 0.2, Absolute Neuts (auto) 9.3 H, Absolute Lymphs (auto) 0.76 L, Nucleated RBC % 0 03/30/20 05:35: Sodium 143, Potassium 4.0, Chloride 110 H, Carbon Dioxide 27.0, Anion Gap 6, BUN 49 H, Creatinine 1.50 H, Estim Creat Clear Calc 20.41, Est GFR (MDRD) Af Amer 43 L, Est GFR (MDRD) Non-Af 35 L, BUN/Creatinine Ratio 32.7 H, Glucose 100, Calcium 8.5, Total Bilirubin 0.50, AST 40 H, ALT 42, Alkaline Phosphatase 88, Total Protein 6.4, Albumin 1.9 L, Globulin 4.5 H, Albumin/Globulin Ratio 0.4 L Current Medications Acetaminophen (Acetaminophen 325 Mg Tablet) 650 mg PO Q6H PRN PRN PRN Reason: Pain Score 1-10/Temp > 100.7 F Hydrocodone Bitart/Acetaminophen (Hydrocodone Bitartrate/Apap 5/325 Tablet) 1 tablet PO Q6H PRN PRN PRN Reason: Pain Score 4-10 Last Admin: 03/26/20 14:38 Dose: 1 tablet Documented by: Al Hydroxide/Mg Hydroxide (Mag Hydrox/Al Hydrox/Simeth 30 Ml Udc) 30 ml PO Q6H PRN PRN PRN Reason: Gastric Burning Albuterol Sulfate (Albuterol Sulfate 8 Gm Inhaler (60 Puffs)) 1 puff INHALATION Q2H PRN PRN PRN Reason: Shortness of Breath/Wheezing Last Admin: 03/29/20 16:52 Dose: 1 puff Documented by: Amiodarone HCl (Amiodarone 200 Mg Tablet) 100 mg PO DAILY [facility] Last Admin: 03/29/20 09:07 Dose: 100 mg Documented by: Amlodipine Besylate (Amlodipine 2.5 Mg Tablet) 2.5 mg PO DAILY [facility] Last Admin: 03/29/20 09:07 Dose: 2.5 mg Documented by: Apixaban (Apixaban 5 Mg Tablet) 5 mg PO BID [facility] Last Admin: 03/29/20 20:39 Dose: 5 mg Documented by: Calamine/Phenol (Menthol/Lanolin/Calamine/Znox 113 Gm Tube) 1 applic TOPICAL BID [facility]; Protocol Last Admin: 03/29/20 20:40 Dose: 1 applicatio Documented by: Clopidogrel Bisulfate (Clopidogrel Bisulfate 75 Mg Tablet) 75 mg PO DINNER [facility] Last Admin: 03/29/20 16:51 Dose: 75 mg Documented by: Furosemide (Furosemide 40 Mg/4 Ml Vial) 40 mg IV DAILY [facility] Last Admin: 03/29/20 09:18 Dose: 40 mg Documented by: Guaifenesin (Guaifenesin 1,200 Mg Tablet) 1,200 mg PO BID [facility] Last Admin: 03/29/20 20:40 Dose: 1,200 mg Documented by: Hydralazine HCl (Hydralazine 20 Mg/Ml Vial) 10 mg IV Q4H PRN PRN PRN Reason: SBP > 160 Ceftriaxone Sodium 2 gm/ (Sodium Chloride) 50 mls @ 100 mls/hr IV Q24 [facility] Last Infusion: 03/29/20 09:36 Dose: Infused Documented by: Sodium Chloride () 250 mls @ 15 mls/hr IV .[id number] PRN PRN Reason: Saline Flush Sodium Chloride () 250 mls @ 15 mls/hr IV .[id number] PRN PRN Reason: Additional IVPB Infusion Lactobacillus Acidophilus (Lactobacillus Acidophilus) 1 tablet PO BID [facility] Last Admin: 03/29/20 20:40 Dose: 1 tablet Documented by: Levothyroxine Sodium (Levothyroxine 125 Mcg Tablet) 125 mcg PO DAILY [facility] Last Admin: 03/29/20 09:09 Dose: 125 mcg Documented by: Lisinopril (Lisinopril 10 Mg Tablet) 10 mg PO DAILY [facility] Last Admin: 03/29/20 09:08 Dose: 10 mg Documented by: Loperamide HCl (Loperamide 2 Mg Capsule) 2 mg PO Q2H PRN PRN PRN Reason: diarrhea, loose stools Last Admin: 03/29/20 20:39 Dose: 2 mg Documented by: Melatonin (Melatonin 3 Mg Tablet) 3 mg PO QHS PRN PRN PRN Reason: INSOMNIA Last Admin: 03/29/20 20:39 Dose: 3 mg Documented by: Metoprolol Tartrate (Metoprolol Tartrate 25 Mg Tablet) 12.5 mg PO BID [facility] Last Admin: 03/29/20 20:39 Dose: 12.5 mg Documented by: Miscellaneous Information (Inhaler, Assist Devices 1 Each Spacer) 1 each INHALATION Q2H PRN PRN PRN Reason: Albuterol MDI Morphine Sulfate (Morphine 2 Mg/Ml Syringe) 2 mg IV Q3H PRN PRN PRN Reason: Pain Score 6-10 Nitroglycerin (Nitroglycerin (Inpatient Use) 0.4 Mg Tab.Subl) 0.4 mg SUBLINGUAL Q5M PRN PRN Reason: CARDIAC/CHEST PAIN Pantoprazole Sodium (Pantoprazole Sodium 20 Mg Tablet) 20 mg PO DAILY [facility] Last Admin: 03/29/20 09:08 Dose: 20 mg Documented by: Prochlorperazine Edisylate (Prochlorperazine 10 Mg/2 Ml Vial) 5 mg IV Q4H PRN PRN PRN Reason: Breakthrough nausea/vomiting Senna/Docusate Sodium (Senna/Docusate Sodium 1 Tablet) 2 tablet PO BID PRN PRN PRN Reason: Constipation Sodium Chloride (0.9% Saline Lock 10 Ml Syringe) 10 - 40 ml IV UD PRN PRN Reason: SALINE FLUSH Last Admin: 03/29/20 20:40 Dose: 10 ml Documented by: STROKE Vital Signs/Narrative: Vital Signs Temp Pulse Resp BP Pulse Ox 03/30/20 05:45 98.3 F 73 19 H 133/74 H 94 Medical Necessity - Tobacco Use Smoking Status: Never smoker Tobacco Use: Non-smoker Assessment/Plan All Active Problems (Last Reviewed 03/05/20 @ 10:00 by Montserrat MOELLER, PA) COVID-19 (Acute) H/O coronary artery bypass surgery (Resolved 01/2016) Atypical chest pain (Resolved) The patient is an 85 y/o F w/ PMHx: Chronically elevated troponins, CKD stage III, Hypothyroidism, CAD s/p CABG x 2 VALERIO-LAD, 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 ED on 03/25/20 with increased dyspnea, worsening over the last 4-5 days with EMS evaluation with oxygenation 80% upon evaluation with transport to the ED for evaluation. 1. Acute Hypoxic Respiratory Failure secondary to Bilateral Pneumonia secondary to Acute Viral Syndrome, COVID-19, Possibly concurrent HCAP: Work-up in the ED included T101, heart rate 130 initially, BP 136/77, respiratory rate 27, 88% on room air with improvement to 96% on 2 L nasal cannula, CBC with WC 10.7, hemoglobin 10.9, platelet 155 with left shift and lymphopenia, BMP with chloride 109, BUN/creatinine 40/1.49, glucose 113, lactic acid 1.8, troponin 0.286, CXR with progression of BL pulmonary infiltrates, initial EKG with atrial fibrillation with RVR. In the ED patient administered Zosyn, vancomycin, Decadron therapy. Admitted to the COVID unit given worsening status, maintained on oxygen with wean as tolerated to room air, PRN albuterol, HOB, IS parameters w/ pending sputum cultures, respiratory viral panel negative and urine antigens negative, D-dimer 1.60 currently anticoagulated thus will review CTPA considerations with ID, BNP 2192.9, LDH 569, procalcitonin 0.66, TCK 111, trop 0.286 with trending as noted. Infectious disease consulted and following, completed 10 days of Decadron, initially on IV vancomycin and Zosyn however patient with onset 03/26/2020 diarrhea likely antibiotic therapy therefore transitioned to only Rocephin per infectious disease. Blood cultures 03/25/2020 with no growth. Sputum prelim culture with presumptive C albicans and staph aureus, final pending. Patient administered IV Lasix therapy upon presentation 03/26/2020 with clinical improvement and decreased oxygen requirements however 03/27/2020 electrolyte alterations therefore discontinued and transition back to oral home regimen however worsened respiratory status over the last 48 hours. Repeat BNP 03/29/2020 741.8, improved from initial presentation. Cage Clerk/pulmonary critical care consulted, agreed with resumption of IV Lasix, rstarted 03/29/20 and will continue with 40 mg IV lasix daily and continuously monitor renal function. Will plan repeat 03/31/20 AM oxygenation trial and if can maintain <6 L with exertion consider discharge but expect need for ongoing diuresis. PT/OT/CM for discharge planning. MRSA screen pending and if positive will add Vanc per discussion with Pulm/CC. 2. PAF with RVR: Patient upon ED arrival with EKG with atrial fibrillation with RVR with nonspecific ST changes likely secondary to acute presentation as noted #1, improved following admission and treatment #1, maintain on cardiac telemetry, cardiac enzymes initially 0.286 with trending continued with improvement--> 0.181--> 0.148 x 2, magnesium level 2.2, continued on amiodarone, Eliquis and metoprolol therapy with increased dosage and continue treatment of #1. 3. Acute on Chronically Elevated Troponins likely secondary to Demand Ischemic secondary to #1, #2: Admission troponin 0.286, prior 03/13/20 0.108; however, 06/30/2017 0.219, maintained on telemetry, 0.286 with trending continued with improvement--> 0.181--> 0.148 x 2, mag normal, TSH low with free T4 1.67, given acute presentation and acute illness discussed with PCP and would plan follow-up once clinically improved outpatient. 4. Takotsubo cardiomyopathy: Continue home eliquis, Lasix, lisinopril, metoprolol regimen, not on statin therapy, defer to outpatient. 03/24/2018 echocardiogram with normal LV size, normal LV systolic function, EF 55%, stage III diastolic dysfunction, mild LUX with bioprosthetic aortic valve. 5. 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 Most recent echo as noted. 6. CKD stage III: Admission BUN/Cr 40/1.49, baseline Cr appears primarily 1.4-1.6, 03/26/20 BUN/Cr 45/1.46--> 03/27/2020 BUN/creatinine 58/1.58, likely mild increase secondary to IV Lasix usage as noted, attempted to resume patient home oral regimen however worsened pulmonary status as noted above, 03/29/2020 transition back to Lasix 40 mg IV once daily, 03/30/2020 BUN/creatinine 49/1.50, continue to closely monitor. 7. Hypothyroidism: Continue home synthroid regimen, TSH low, FT4 1.67 which was discussed with primary care physician as obtained in the acute setting therefore recommendation for repeat outpatient once acute presentation has resolved which PCP is amenable. 8. Chronic anemia: Admission Hgb 10.9, baseline appears 10-, 03/30/2020 hemoglobin 9.9, continue to trend. 9. Hypokalemia: Admission K+ 3.3, supplementation given, 03/30/2020 K+ 4.0, continue to closely monitor as resumption of IV Lasix as noted. 10. PUD: We will continue patient home PPI. 11. DVT Prophylaxis: SCDs, continue home eliquis regimen. 12. CODE status: DNR-CCA, no intubation status. Inpatient E&M: [id number] [facility] Hosp L3
[2020-03-30] MEDS: Metoprolol Tartrate 25 MG Tablet 12.5 MG PO ×2 (08:31→20:07)
[2020-03-30] MEDS: guaiFENesin 1,200 MG Tablet 1200 MG PO ×2 (08:31→20:07)
[2020-03-30] MEDS: Lisinopril 10 MG Tablet PO (08:31)
[2020-03-30] MEDS: Amiodarone 200 MG Tablet 100 MG PO (08:31)
[2020-03-30] MEDS: amLODIPine 2.5 MG Tablet PO (08:31)
[2020-03-30] MEDS: Pantoprazole Sodium 20 MG Tablet PO (08:31)
[2020-03-30] MEDS: Levothyroxine 125 MCG Tablet PO (08:32)
[2020-03-30] MEDS: Menthol/Lanolin/Calamine/Znox 113 GM Tube 1 APPLIC TOPICAL ×2 (08:32→20:10)
[2020-03-30] MEDS: APIXABAN 5 MG TABLET PO ×2 (08:32→20:09)
[2020-03-30] MEDS: Furosemide 40 MG/4 ML Vial IV (08:33)
[2020-03-30] MEDS: Clopidogrel Bisulfate 75 MG Tablet PO (17:01)
[2020-03-30 17:03] LABS: M R Staph aureus DNA By PCR Negative (Negative); Probe Check PASS; Specimen Processing Control PASS
[2020-03-30] MEDS: Loperamide 2 MG Capsule PO (20:08)
[2020-03-30] MEDS: MELATONIN 3 MG TABLET PO (20:09)
[2020-03-31] VITALS (8 sets, daily range): BP systolic 99–125; BP diastolic 47–74; PULSE 77–95; RESP 16–21; TEMP 36.2–36.7; O2SAT 94–97
[2020-03-31 05:26] LABS: Absolute Lymphocyte Count 0.81 X10^3/uL (0.83-4.51); Absolute Neutrophil Count 8.9 X10^3/uL (2.0-7.7); Basophil# 0.02 X10^3/uL; Basophil% 0.2 % (0-1); Eosinophil# 0.12 X10^3/uL; Eosinophils% 1.1 % (0-5); Hematocrit 30.6 % (37-47); Hemoglobin 9.3 g/dL (12.0-15.0); Lymphocyte # 0.81 X10^3/ul (4.0); Lymphocyte % 7.5 % (19-41); Mean Corp Hgb Conc 30.4 g/dL (32-36); Mean Corpuscular Hgb 29.3 pg (27.0-32.0); Mean Corpuscular Volume 96.5 fL (81-99); Mean Platelet Vol. 11.5 fl (6.2-12.0); Monocyte# 0.77 X10^3/uL; Monocyte% 7.1 % (0-10); NRBC Flagged by Analyzer 0 % (0-5); Neutrophil # 8.94 X10^3/uL (2.7-7.7); Neutrophil % 83.1 % (47-70); Platelet Count 157 K/mm3 (150-450); RBC Distribution Width CV 14.2 % (11.6-14.6); RBC Distribution Width SD 50.3 fl (35.1-43.9); Red Blood Count 3.17 M/mm3 (4.2-5.4); White Blood Count 10.8 K/mm3 (4.4-11.0)
[2020-03-31 05:52] LABS: ALB/GLOB Ratio 0.5 RATIO (0.9-2.4); AST(SGOT) 41 U/L (15-37); Alanine Aminotransfer ALT/SGPT 46 U/L (13-56); Albumin, Serum 1.9 g/dL (3.2-5.0); Alkaline Phosphatase 92 U/L (45-117); Anion Gap 7 (5-15); BUN 43 mg/dL (7-18); BUN/Creat Ratio 33.9 RATIO (10-20); Calcium,Total 8.3 mg/dL (8.5-10.1); Chloride 109 mmol/L (98-107); Creatinine, Serum 1.27 mg/dL (0.55-1.02); EST Glomerular Filtration Rate 43 mL/min (>60); Est Glom Filt Rate - Afr Amer 52 mL/min (>60); Estimated Creatinine Clearance 24.11 ml/min; Globulin 4.1 g/dL (2.2-4.2); Glucose 96 mg/dL (74-106); Potassium 3.8 mmol/L (3.5-5.1); Sodium Level 141 mmol/L (136-145)
[2020-03-31] MEDS: Metoprolol Tartrate 25 MG Tablet 12.5 MG PO ×2 (08:45→21:18)
[2020-03-31] MEDS: Lisinopril 10 MG Tablet PO (08:45)
[2020-03-31] MEDS: Pantoprazole Sodium 20 MG Tablet PO (08:46)
[2020-03-31] MEDS: Levothyroxine 125 MCG Tablet PO (08:46)
[2020-03-31] MEDS: amLODIPine 2.5 MG Tablet PO (08:46)
[2020-03-31] MEDS: APIXABAN 5 MG TABLET PO ×2 (08:47→21:17)
[2020-03-31] MEDS: Amiodarone 200 MG Tablet 100 MG PO (08:47)
[2020-03-31] MEDS: Menthol/Lanolin/Calamine/Znox 113 GM Tube 1 APPLIC TOPICAL ×2 (08:49→12:44)
[2020-03-31] MEDS: Furosemide 40 MG/4 ML Vial IV ×2 (08:50→21:18)
[2020-03-31] MEDS: 0.9% Saline Lock 10 ML Syringe IV ×3 (08:51→21:18)
--- NOTE | 2020-03-31 09:48 | NURSING ---
spo2 96% at rest 4L NC spo2 88% ambulating on 4L NC spo2 90% ambulating on 6L NC spo2 dropped to 87% after done with ambulating and sat in chair for a couple minutes, then spo2 96% on 6L in less than 5 minutes recovery time spo2 90% 89-90% on 3L NC while resting in chair spo2 94% on 4L NC oxygen within 5 minutes of increasing from 3L to 4L NC
[2020-03-31] MEDS: Loperamide 2 MG Capsule PO ×3 (09:53→21:29)
[2020-03-31] MEDS: guaiFENesin 1,200 MG Tablet 1200 MG PO ×2 (09:53→21:17)
--- NOTE | 2020-03-31 10:00 | NURSING ---
up in chair, talking on her cell phone. on room air for less than 5 minutes and spo2 87%. o2 4L nc reapplied.
--- NOTE | 2020-03-31 10:14 | PCM.PN.PUL ---
Patient Problems: Active and Suspected Problems (Last Reviewed 03/05/20 @ 10:00 by Montserrat Villa PA, PA) COVID-19 (Acute) Subjective: Patient did well overnight. Patient feels subjectively unchanged compared to previous. Patient has been tolerating 4 L nasal cannula at rest and was able to tolerate 6 L with ambulation to the bathroom. Patient denies any significant GI issues. Patient does not normally require supplemental oxygen and states she only has her at home to help her with activities - Physical Exam Vitals/I&O's: Vital Signs Temp Pulse Resp BP Pulse Ox 36.7 C 94 21 H 125/74 H 97 03/31/20 08:32 03/31/20 08:45 03/31/20 08:32 03/31/20 08:32 03/31/20 08:32 Oxygen Flow Rate (L/min) 4 Oxygen Delivery Method Nasal Cannula Weight: 77.8 kg Body Mass Index (BMI) 33.5 Intake and Output for Last 24 Hours 03/29/20 03/30/20 03/31/20 23:59 23:59 23:59 Intake Total 890 / 890 170 / 410 240 / 240 Output Total 360 / 360 Balance 890 / 890 170 / 50 -120 / -120 General: Alert, Oriented x3, Cooperative, No apparent distress, - - No conversational dyspnea HEENT: Atraumatic, PERRLA, EOMI, - - No scleral injection or icterus Oral: Moist Mucosa, No Gingival or Mucosal Lesions/ Ulcerations Neck: Supple, No JVD, No Nodes, Trachea Midline Lungs: No rhonchi, No wheeze, No rales, Diminished Cardiovascular: Regular rate, Regular Rhythm, Normal S1, Normal S2, No murmurs, No rub noted, No Gallop Abdomen: Bowel Sounds Present, Soft, Non Tender, Non-Distended Extremities: No clubbing, No cyanosis, Edema Skin: No rashes, No breakdown Musculoskeletal: No Tenderness to Palpation of Joints or Extremities Lymphatic: No Cervical, Supraclavicular, or Inguinal Adenopathy Neurological: Cranial nerves II-XII grossly intact, Neuro grossly intact, Motor Exam 5/5 strength throughout Psych/Mental Status: Alert and oriented to time, place, person, mood and affect Microbiology Past 72 Hours 03/27/20 06:25 Sputum, Expectorated/Coughed Gram Stain - Final 03/27/20 06:25 Sputum, Expectorated/Coughed Respiratory Culture - Final Presumptive C albicans Staphylococcus aureus 03/25/20 15:05 Blood Culture (Wb) #2 - Anticubital Right Blood Culture - Final No growth in 5 days. 03/25/20 14:54 Blood Culture (Wb) - Anticubital Left Blood Culture - Final No growth in 5 days. Laboratory Results 03/30/20 15:20: MRSA (PCR) Negative 03/31/20 04:56: WBC 10.8, RBC 3.17 L, Hgb 9.3 L, Hct 30.6 L, MCV 96.5, MCH 29.3, MCHC 30.4 L, RDW Std Deviation 50.3 H, RDW Coeff of Leatha 14.2, Plt Count 157, MPV 11.5, Immature Gran % (Auto) 1.000 H, Neut % (Auto) 83.1 H, Lymph % (Auto) 7.5 L, [place] % (Auto) 7.1, Eos % (Auto) 1.1, Baso % (Auto) 0.2, Absolute Neuts (auto) 8.9 H, Absolute Lymphs (auto) 0.81 L, Nucleated RBC % 0 03/31/20 04:56: Sodium 141, Potassium 3.8, Chloride 109 H, Carbon Dioxide 25.0, Anion Gap 7, BUN 43 H, Creatinine 1.27 H, Estim Creat Clear Calc 24.11, Est GFR (MDRD) Af Amer 52 L, Est GFR (MDRD) Non-Af 43 L, BUN/Creatinine Ratio 33.9 H, Glucose 96, Calcium 8.3 L, Total Bilirubin 0.50, AST 41 H, ALT 46, Alkaline Phosphatase 92, Total Protein 6.0 L, Albumin 1.9 L, Globulin 4.1, Albumin/Globulin Ratio 0.5 L Current Medications Acetaminophen (Acetaminophen 325 Mg Tablet) 650 mg PO Q6H PRN PRN PRN Reason: Pain Score 1-10/Temp > 100.7 F Hydrocodone Bitart/Acetaminophen (Hydrocodone Bitartrate/Apap 5/325 Tablet) 1 tablet PO Q6H PRN PRN PRN Reason: Pain Score 4-10 Last Admin: 03/26/20 14:38 Dose: 1 tablet Documented by: Al Hydroxide/Mg Hydroxide (Mag Hydrox/Al Hydrox/Simeth 30 Ml Udc) 30 ml PO Q6H PRN PRN PRN Reason: Gastric Burning Albuterol Sulfate (Albuterol Sulfate 8 Gm Inhaler (60 Puffs)) 1 puff INHALATION Q2H PRN PRN PRN Reason: Shortness of Breath/Wheezing Last Admin: 03/29/20 16:52 Dose: 1 puff Documented by: Amiodarone HCl (Amiodarone 200 Mg Tablet) 100 mg PO DAILY [facility] Last Admin: 03/31/20 08:47 Dose: 100 mg Documented by: Amlodipine Besylate (Amlodipine 2.5 Mg Tablet) 2.5 mg PO DAILY [facility] Last Admin: 03/31/20 08:46 Dose: 2.5 mg Documented by: Apixaban (Apixaban 5 Mg Tablet) 5 mg PO BID [facility] Last Admin: 03/31/20 08:47 Dose: 5 mg Documented by: Calamine/Phenol (Menthol/Lanolin/Calamine/Znox 113 Gm Tube) 1 applic TOPICAL BID [facility]; Protocol Last Admin: 03/31/20 08:49 Dose: 1 applicatio Documented by: Clopidogrel Bisulfate (Clopidogrel Bisulfate 75 Mg Tablet) 75 mg PO DINNER [facility] Last Admin: 03/30/20 17:01 Dose: 75 mg Documented by: Furosemide (Furosemide 40 Mg/4 Ml Vial) 40 mg IV DAILY [facility] Last Admin: 03/31/20 08:50 Dose: 40 mg Documented by: Guaifenesin (Guaifenesin 1,200 Mg Tablet) 1,200 mg PO BID [facility] Last Admin: 03/31/20 09:53 Dose: 1,200 mg Documented by: Hydralazine HCl (Hydralazine 20 Mg/Ml Vial) 10 mg IV Q4H PRN PRN PRN Reason: SBP > 160 Ceftriaxone Sodium 2 gm/ (Sodium Chloride) 50 mls @ 100 mls/hr IV Q24 [facility] Last Admin: 03/31/20 08:48 Dose: 50 mls/hr Documented by: Sodium Chloride () 250 mls @ 15 mls/hr IV .[id number] PRN PRN Reason: Saline Flush Sodium Chloride () 250 mls @ 15 mls/hr IV .[id number] PRN PRN Reason: Additional IVPB Infusion Lactobacillus Acidophilus (Lactobacillus Acidophilus) 1 tablet PO BID [facility] Last Admin: 03/31/20 08:46 Dose: 1 tablet Documented by: Levothyroxine Sodium (Levothyroxine 125 Mcg Tablet) 125 mcg PO DAILY [facility] Last Admin: 03/31/20 08:46 Dose: 125 mcg Documented by: Lisinopril (Lisinopril 10 Mg Tablet) 10 mg PO DAILY [facility] Last Admin: 03/31/20 08:45 Dose: 10 mg Documented by: Loperamide HCl (Loperamide 2 Mg Capsule) 2 mg PO Q2H PRN PRN PRN Reason: diarrhea, loose stools Last Admin: 03/31/20 09:53 Dose: 2 mg Documented by: Melatonin (Melatonin 3 Mg Tablet) 3 mg PO QHS PRN PRN PRN Reason: INSOMNIA Last Admin: 03/30/20 20:09 Dose: 3 mg Documented by: Metoprolol Tartrate (Metoprolol Tartrate 25 Mg Tablet) 12.5 mg PO BID [facility] Last Admin: 03/31/20 08:45 Dose: 12.5 mg Documented by: Miscellaneous Information (Inhaler, Assist Devices 1 Each Spacer) 1 each INHALATION Q2H PRN PRN PRN Reason: Albuterol MDI Morphine Sulfate (Morphine 2 Mg/Ml Syringe) 2 mg IV Q3H PRN PRN PRN Reason: Pain Score 6-10 Nitroglycerin (Nitroglycerin (Inpatient Use) 0.4 Mg Tab.Subl) 0.4 mg SUBLINGUAL Q5M PRN PRN Reason: CARDIAC/CHEST PAIN Pantoprazole Sodium (Pantoprazole Sodium 20 Mg Tablet) 20 mg PO DAILY [facility] Last Admin: 03/31/20 08:46 Dose: 20 mg Documented by: Prochlorperazine Edisylate (Prochlorperazine 10 Mg/2 Ml Vial) 5 mg IV Q4H PRN PRN PRN Reason: Breakthrough nausea/vomiting Senna/Docusate Sodium (Senna/Docusate Sodium 1 Tablet) 2 tablet PO BID PRN PRN PRN Reason: Constipation Sodium Chloride (0.9% Saline Lock 10 Ml Syringe) 10 - 40 ml IV UD PRN PRN Reason: SALINE FLUSH Last Admin: 03/31/20 09:53 Dose: 10 ml Documented by: Medical Necessity - Tobacco Use Smoking Status: Never smoker Tobacco Use: Non-smoker Assessment/Plan All Active Problems (Last Reviewed 03/05/20 @ 10:00 by Montserrat Villa PA, PA) COVID-19 (Acute) H/O coronary artery bypass surgery (Resolved 01/2016) Atypical chest pain (Resolved) RECOMMENDATIONS: 1. Wean supplemental oxygen to maintain saturations at or above 90%. 2. Continue current diuresis as tolerated by hemodynamics and renal function. 3. Continue antimicrobials per ID recommendations. 4. Encourage incentive spirometer use and mobilize patient as tolerated. 5. Continue systemic anticoagulation with Eliquis. IMPRESSIONS: 1. Acute hypoxemic respiratory failure, likely the sequelae of prior Covid infection and decompensated heart failure The patient was already previously treated with remdesivir and Decadron. She remains on antimicrobials under the discretion of infectious diseases over suspicion for possible community-acquired pneumonia. Plan to continue supplemental oxygen to maintain saturations at or above 90%. Patient will be continued on systemic anticoagulation for now. Patient has tolerated the increased dose of Lasix, so this will be continued. Patient able to ambulate on 6 L nasal cannula, so possible disposition from a pulmonary perspective. This may improve as patient continues to receive diuretic therapy. 2. History of coronary artery disease status post CABG/bioprosthetic aortic valve/diastolic heart failure/paroxysmal atrial fibrillation Complicates care, management, recovery and prognosis. Continue home medications as indicated. Inpatient E&M: [id number] [facility] L2
--- NOTE | 2020-03-31 11:11 | CASEMGMT ---
LW/POA in summary tab of echart, however only the odd pages are scanned in. SW called pt in room to let her know and asked her, as able, to bring in the forms to have them completely scanned into the chart. Pt states understanding. ZONIA Gonsalez
--- NOTE | 2020-03-31 12:42 | NURSING ---
spo2 94% on 2L NC at rest spo2 85% ambulating with 2L NC
--- NOTE | 2020-03-31 12:55 | PCM.PN.HOSP ---
Patient Problems: Active and Suspected Problems (Last Reviewed 03/05/20 @ 10:00 by Montserrat Villa PA, PA) COVID-19 (Acute) Subjective: Feeling better. Does not feel ready to go home. Objective: 93% with activity on 6 liters/min. Vitals/I&O's: Vital Signs Temp Pulse Resp BP Pulse Ox 36.7 C 94 21 H 125/74 H 97 03/31/20 08:32 03/31/20 08:45 03/31/20 08:32 03/31/20 08:32 03/31/20 08:32 Oxygen Flow Rate (L/min) 4 Oxygen Delivery Method Nasal Cannula Weight: 77.8 kg Body Mass Index (BMI) 33.5 Intake and Output for Last 24 Hours 03/29/20 03/30/20 03/31/20 23:59 23:59 23:59 Intake Total 890 / 890 170 / 410 290 / 290 Output Total 360 / 360 Balance 890 / 890 170 / 50 -70 / -70 General: Alert, No apparent distress HEENT: Atraumatic, Normocephalic Oral: Moist Mucosa, No Gingival or Mucosal Lesions/ Ulcerations Neck: No Nodes, Thyroid Normal Size and Texture Lungs: Normal air movement, - - crackles bilatearlly Cardiovascular: Regular rate, Regular Rhythm, Normal S1, Normal S2 Abdomen: Bowel Sounds Present, Soft, Non Tender, Non-Distended, No Hepato-splenomegaly Extremities: No edema, No Calf Tenderness Skin: No rashes, No breakdown Psych/Mental Status: Normal Affect, Appropriate Microbiology Past 72 Hours 03/27/20 06:25 Sputum, Expectorated/Coughed Gram Stain - Final 03/27/20 06:25 Sputum, Expectorated/Coughed Respiratory Culture - Final Presumptive C albicans Staphylococcus aureus 03/25/20 15:05 Blood Culture (Wb) #2 - Anticubital Right Blood Culture - Final No growth in 5 days. 03/25/20 14:54 Blood Culture (Wb) - Anticubital Left Blood Culture - Final No growth in 5 days. Laboratory Results 03/30/20 15:20: MRSA (PCR) Negative 03/31/20 04:56: WBC 10.8, RBC 3.17 L, Hgb 9.3 L, Hct 30.6 L, MCV 96.5, MCH 29.3, MCHC 30.4 L, RDW Std Deviation 50.3 H, RDW Coeff of Leatha 14.2, Plt Count 157, MPV 11.5, Immature Gran % (Auto) 1.000 H, Neut % (Auto) 83.1 H, Lymph % (Auto) 7.5 L, [place] % (Auto) 7.1, Eos % (Auto) 1.1, Baso % (Auto) 0.2, Absolute Neuts (auto) 8.9 H, Absolute Lymphs (auto) 0.81 L, Nucleated RBC % 0 03/31/20 04:56: Sodium 141, Potassium 3.8, Chloride 109 H, Carbon Dioxide 25.0, Anion Gap 7, BUN 43 H, Creatinine 1.27 H, Estim Creat Clear Calc 24.11, Est GFR (MDRD) Af Amer 52 L, Est GFR (MDRD) Non-Af 43 L, BUN/Creatinine Ratio 33.9 H, Glucose 96, Calcium 8.3 L, Total Bilirubin 0.50, AST 41 H, ALT 46, Alkaline Phosphatase 92, Total Protein 6.0 L, Albumin 1.9 L, Globulin 4.1, Albumin/Globulin Ratio 0.5 L Current Medications Acetaminophen (Acetaminophen 325 Mg Tablet) 650 mg PO Q6H PRN PRN PRN Reason: Pain Score 1-10/Temp > 100.7 F Hydrocodone Bitart/Acetaminophen (Hydrocodone Bitartrate/Apap 5/325 Tablet) 1 tablet PO Q6H PRN PRN PRN Reason: Pain Score 4-10 Last Admin: 03/26/20 14:38 Dose: 1 tablet Documented by: Al Hydroxide/Mg Hydroxide (Mag Hydrox/Al Hydrox/Simeth 30 Ml Udc) 30 ml PO Q6H PRN PRN PRN Reason: Gastric Burning Albuterol Sulfate (Albuterol Sulfate 8 Gm Inhaler (60 Puffs)) 1 puff INHALATION Q2H PRN PRN PRN Reason: Shortness of Breath/Wheezing Last Admin: 03/29/20 16:52 Dose: 1 puff Documented by: Amiodarone HCl (Amiodarone 200 Mg Tablet) 100 mg PO DAILY [facility] Last Admin: 03/31/20 08:47 Dose: 100 mg Documented by: Amlodipine Besylate (Amlodipine 2.5 Mg Tablet) 2.5 mg PO DAILY [facility] Last Admin: 03/31/20 08:46 Dose: 2.5 mg Documented by: Apixaban (Apixaban 5 Mg Tablet) 5 mg PO BID [facility] Last Admin: 03/31/20 08:47 Dose: 5 mg Documented by: Calamine/Phenol (Menthol/Lanolin/Calamine/Znox 113 Gm Tube) 1 applic TOPICAL BID [facility]; Protocol Last Admin: 03/31/20 12:44 Dose: 1 applicatio Documented by: Clopidogrel Bisulfate (Clopidogrel Bisulfate 75 Mg Tablet) 75 mg PO DINNER [facility] Last Admin: 03/30/20 17:01 Dose: 75 mg Documented by: Furosemide (Furosemide 40 Mg/4 Ml Vial) 40 mg IV DAILY [facility] Last Admin: 03/31/20 08:50 Dose: 40 mg Documented by: Guaifenesin (Guaifenesin 1,200 Mg Tablet) 1,200 mg PO BID [facility] Last Admin: 03/31/20 09:53 Dose: 1,200 mg Documented by: Hydralazine HCl (Hydralazine 20 Mg/Ml Vial) 10 mg IV Q4H PRN PRN PRN Reason: SBP > 160 Ceftriaxone Sodium 2 gm/ (Sodium Chloride) 50 mls @ 100 mls/hr IV Q24 [facility] Last Infusion: 03/31/20 09:50 Dose: Infused Documented by: Sodium Chloride () 250 mls @ 15 mls/hr IV .[id number] PRN PRN Reason: Saline Flush Sodium Chloride () 250 mls @ 15 mls/hr IV .[id number] PRN PRN Reason: Additional IVPB Infusion Lactobacillus Acidophilus (Lactobacillus Acidophilus) 1 tablet PO BID [facility] Last Admin: 03/31/20 08:46 Dose: 1 tablet Documented by: Levothyroxine Sodium (Levothyroxine 125 Mcg Tablet) 125 mcg PO DAILY [facility] Last Admin: 03/31/20 08:46 Dose: 125 mcg Documented by: Lisinopril (Lisinopril 10 Mg Tablet) 10 mg PO DAILY [facility] Last Admin: 03/31/20 08:45 Dose: 10 mg Documented by: Loperamide HCl (Loperamide 2 Mg Capsule) 2 mg PO Q2H PRN PRN PRN Reason: diarrhea, loose stools Last Admin: 03/31/20 12:44 Dose: 2 mg Documented by: Melatonin (Melatonin 3 Mg Tablet) 3 mg PO QHS PRN PRN PRN Reason: INSOMNIA Last Admin: 03/30/20 20:09 Dose: 3 mg Documented by: Metoprolol Tartrate (Metoprolol Tartrate 25 Mg Tablet) 12.5 mg PO BID [facility] Last Admin: 03/31/20 08:45 Dose: 12.5 mg Documented by: Miscellaneous Information (Inhaler, Assist Devices 1 Each Spacer) 1 each INHALATION Q2H PRN PRN PRN Reason: Albuterol MDI Morphine Sulfate (Morphine 2 Mg/Ml Syringe) 2 mg IV Q3H PRN PRN PRN Reason: Pain Score 6-10 Nitroglycerin (Nitroglycerin (Inpatient Use) 0.4 Mg Tab.Subl) 0.4 mg SUBLINGUAL Q5M PRN PRN Reason: CARDIAC/CHEST PAIN Pantoprazole Sodium (Pantoprazole Sodium 20 Mg Tablet) 20 mg PO DAILY [facility] Last Admin: 03/31/20 08:46 Dose: 20 mg Documented by: Prochlorperazine Edisylate (Prochlorperazine 10 Mg/2 Ml Vial) 5 mg IV Q4H PRN PRN PRN Reason: Breakthrough nausea/vomiting Senna/Docusate Sodium (Senna/Docusate Sodium 1 Tablet) 2 tablet PO BID PRN PRN PRN Reason: Constipation Sodium Chloride (0.9% Saline Lock 10 Ml Syringe) 10 - 40 ml IV UD PRN PRN Reason: SALINE FLUSH Last Admin: 03/31/20 09:53 Dose: 10 ml Documented by: Medical Necessity - Tobacco Use Smoking Status: Never smoker Tobacco Use: Non-smoker Assessment/Plan All Active Problems (Last Reviewed 03/05/20 @ 10:00 by Montserrat MOELLER, PA) COVID-19 (Acute) H/O coronary artery bypass surgery (Resolved 01/2016) Atypical chest pain (Resolved) 1. Acute Hypoxic Respiratory Failure secondary to Bilateral Pneumonia secondary to Acute Viral Syndrome, COVID-19, pneumonia wean oxygen as tolerated furosemide challenge 2. MSSA pneumonia on CTX pulm toilet 3. COVID 19 reviewed with infection control. Onset of symptoms 02/29/2020, will DC isolation 4. PAF with RVR: Patient upon ED arrival with EKG with atrial fibrillation with RVR with nonspecific ST changes likely secondary to acute presentation as noted #1, improved following admission and treatment #1, maintain on cardiac telemetry, cardiac enzymes initially 0.286 with trending continued with improvement--> 0.181--> 0.148 x 2, magnesium level 2.2, continued on amiodarone, Eliquis and metoprolol therapy with increased dosage and continue treatment of #1. 5. Acute on Chronically Elevated Troponins likely secondary to Demand Ischemic secondary to #1, #2: Admission troponin 0.286, prior 03/13/20 0.108; however, 06/30/2017 0.219, maintained on telemetry, 0.286 with trending continued with improvement--> 0.181--> 0.148 x 2, mag normal, TSH low with free T4 1.67, given acute presentation and acute illness discussed with PCP and would plan follow-up once clinically improved outpatient. 6. Takotsubo cardiomyopathy: Continue home eliquis, Lasix, lisinopril, metoprolol regimen, not on statin therapy, defer to outpatient. 03/24/2018 echocardiogram with normal LV size, normal LV systolic function, EF 55%, stage III diastolic dysfunction, mild LUX with bioprosthetic aortic valve. 7. 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 Most recent echo as noted. 8. CKD stage III: Admission BUN/Cr 40/1.49, baseline Cr appears primarily 1.4-1.6, 03/26/20 BUN/Cr 45/1.46--> 03/27/2020 BUN/creatinine 58/1.58, likely mild increase secondary to IV Lasix usage as noted, attempted to resume patient home oral regimen however worsened pulmonary status as noted above, 03/29/2020 transition back to Lasix 40 mg IV once daily, 03/30/2020 BUN/creatinine 49/1.50, continue to closely monitor. 9. Hypothyroidism: Continue home synthroid regimen, TSH low, FT4 1.67 which was discussed with primary care physician as obtained in the acute setting therefore recommendation for repeat outpatient once acute presentation has resolved which PCP is amenable. 10. Chronic anemia: Admission Hgb 10.9, baseline appears 10-11, 03/30/2020 hemoglobin 9.9, continue to trend. 11. Hypokalemia: resolved Admission K+ 3.3, supplementation given, 03/30/2020 K+ 4.0, continue to closely monitor as resumption of IV Lasix as noted. 12. PUD: We will continue patient home PPI. 13. DVT Prophylaxis: SCDs, continue home eliquis regimen. 14. CODE status: DNR-CCA, no intubation status. 15. Discharge planning Inpatient E&M: 54340 Subs Hosp L2
--- NOTE | 2020-03-31 14:12 | PN.ID_ITS ---
Patient Problems: Active and Suspected Problems (Last Reviewed 03/05/20 @ 10:00 by Montserrat Villa PA, PA) COVID-19 (Acute) Subjective: Feeling better, still some diarrhea, no fever - Physical Exam Vitals/I&O's: Vital Signs Temp Pulse Resp BP Pulse Ox 98.1 F 94 21 H 125/74 H 97 03/31/20 08:32 03/31/20 08:45 03/31/20 08:32 03/31/20 08:32 03/31/20 08:32 Oxygen Flow Rate (L/min) 4 Oxygen Delivery Method Nasal Cannula Weight: 77.8 kg Body Mass Index (BMI) 33.5 Intake and Output for Last 24 Hours 03/29/20 03/30/20 03/31/20 23:59 23:59 23:59 Intake Total 890 / 890 170 / 410 290 / 290 Output Total 360 / 360 Balance 890 / 890 170 / 50 -70 / -70 General: Alert, Cooperative, No apparent distress Lungs: Clear to auscultation, Diminished Cardiovascular: Regular rate, Regular Rhythm Abdomen: Soft, Non Tender, Non-Distended Skin: No rashes Microbiology Past 72 Hours 03/27/20 06:25 Sputum, Expectorated/Coughed Gram Stain - Final 03/27/20 06:25 Sputum, Expectorated/Coughed Respiratory Culture - Final Presumptive C albicans Staphylococcus aureus 03/25/20 15:05 Blood Culture (Wb) #2 - Anticubital Right Blood Culture - Final No growth in 5 days. 03/25/20 14:54 Blood Culture (Wb) - Anticubital Left Blood Culture - Final No growth in 5 days. Laboratory Results 03/30/20 15:20: MRSA (PCR) Negative 03/31/20 04:56: WBC 10.8, RBC 3.17 L, Hgb 9.3 L, Hct 30.6 L, MCV 96.5, MCH 29.3, MCHC 30.4 L, RDW Std Deviation 50.3 H, RDW Coeff of Leatha 14.2, Plt Count 157, MPV 11.5, Immature Gran % (Auto) 1.000 H, Neut % (Auto) 83.1 H, Lymph % (Auto) 7.5 L , [place] % (Auto) 7.1, Eos % (Auto) 1.1, Baso % (Auto) 0.2, Absolute Neuts (auto) 8.9 H, Absolute Lymphs (auto) 0.81 L, Nucleated RBC % 0 03/31/20 04:56: Sodium 141, Potassium 3.8, Chloride 109 H, Carbon Dioxide 25.0, Anion Gap 7, BUN 43 H, Creatinine 1.27 H, Estim Creat Clear Calc 24.11, Est GFR (MDRD) Af Amer 52 L, Est GFR (MDRD) Non-Af 43 L, BUN/Creatinine Ratio 33.9 H, Glucose 96, Calcium 8.3 L, Total Bilirubin 0.50, AST 41 H, ALT 46, Alkaline Phosphatase 92, Total Protein 6.0 L, Albumin 1.9 L, Globulin 4.1, Albumin/Globulin Ratio 0.5 L Current Medications Acetaminophen (Acetaminophen 325 Mg Tablet) 650 mg PO Q6H PRN PRN PRN Reason: Pain Score 1-10/Temp > 100.7 F Hydrocodone Bitart/Acetaminophen (Hydrocodone Bitartrate/Apap 5/325 Tablet) 1 tablet PO Q6H PRN PRN PRN Reason: Pain Score 4-10 Last Admin: 03/26/20 14:38 Dose: 1 tablet Documented by: Al Hydroxide/Mg Hydroxide (Mag Hydrox/Al Hydrox/Simeth 30 Ml Udc) 30 ml PO Q6H PRN PRN PRN Reason: Gastric Burning Albuterol Sulfate (Albuterol Sulfate 8 Gm Inhaler (60 Puffs)) 1 puff INHALATION Q2H PRN PRN PRN Reason: Shortness of Breath/Wheezing Last Admin: 03/29/20 16:52 Dose: 1 puff Documented by: Amiodarone HCl (Amiodarone 200 Mg Tablet) 100 mg PO DAILY [facility] Last Admin: 03/31/20 08:47 Dose: 100 mg Documented by: Amlodipine Besylate (Amlodipine 2.5 Mg Tablet) 2.5 mg PO DAILY [facility] Last Admin: 03/31/20 08:46 Dose: 2.5 mg Documented by: Apixaban (Apixaban 5 Mg Tablet) 5 mg PO BID [facility] Last Admin: 03/31/20 08:47 Dose: 5 mg Documented by: Calamine/Phenol (Menthol/Lanolin/Calamine/Znox 113 Gm Tube) 1 applic TOPICAL BID [facility]; Protocol Last Admin: 03/31/20 12:44 Dose: 1 applicatio Documented by: Clopidogrel Bisulfate (Clopidogrel Bisulfate 75 Mg Tablet) 75 mg PO DINNER [facility] Last Admin: 03/30/20 17:01 Dose: 75 mg Documented by: Furosemide (Furosemide 40 Mg/4 Ml Vial) 40 mg IV BID [facility] Guaifenesin (Guaifenesin 1,200 Mg Tablet) 1,200 mg PO BID [facility] Last Admin: 03/31/20 09:53 Dose: 1,200 mg Documented by: Hydralazine HCl (Hydralazine 20 Mg/Ml Vial) 10 mg IV Q4H PRN PRN PRN Reason: SBP > 160 Ceftriaxone Sodium 2 gm/ (Sodium Chloride) 50 mls @ 100 mls/hr IV Q24 [facility] Last Infusion: 03/31/20 09:50 Dose: Infused Documented by: Sodium Chloride () 250 mls @ 15 mls/hr IV .[id number] PRN PRN Reason: Saline Flush Sodium Chloride () 250 mls @ 15 mls/hr IV .[id number] PRN PRN Reason: Additional IVPB Infusion Lactobacillus Acidophilus (Lactobacillus Acidophilus) 1 tablet PO BID [facility] Last Admin: 03/31/20 08:46 Dose: 1 tablet Documented by: Levothyroxine Sodium (Levothyroxine 125 Mcg Tablet) 125 mcg PO DAILY [facility] Last Admin: 03/31/20 08:46 Dose: 125 mcg Documented by: Lisinopril (Lisinopril 10 Mg Tablet) 10 mg PO DAILY [facility] Last Admin: 03/31/20 08:45 Dose: 10 mg Documented by: Loperamide HCl (Loperamide 2 Mg Capsule) 2 mg PO Q2H PRN PRN PRN Reason: diarrhea, loose stools Last Admin: 03/31/20 12:44 Dose: 2 mg Documented by: Melatonin (Melatonin 3 Mg Tablet) 3 mg PO QHS PRN PRN PRN Reason: INSOMNIA Last Admin: 03/30/20 20:09 Dose: 3 mg Documented by: Metoprolol Tartrate (Metoprolol Tartrate 25 Mg Tablet) 12.5 mg PO BID [facility] Last Admin: 03/31/20 08:45 Dose: 12.5 mg Documented by: Miscellaneous Information (Inhaler, Assist Devices 1 Each Spacer) 1 each INHALATION Q2H PRN PRN PRN Reason: Albuterol MDI Nitroglycerin (Nitroglycerin (Inpatient Use) 0.4 Mg Tab.Subl) 0.4 mg SUBLINGUAL Q5M PRN PRN Reason: CARDIAC/CHEST PAIN Pantoprazole Sodium (Pantoprazole Sodium 20 Mg Tablet) 20 mg PO DAILY [facility] Last Admin: 03/31/20 08:46 Dose: 20 mg Documented by: Prochlorperazine Edisylate (Prochlorperazine 10 Mg/2 Ml Vial) 5 mg IV Q4H PRN PRN PRN Reason: Breakthrough nausea/vomiting Senna/Docusate Sodium (Senna/Docusate Sodium 1 Tablet) 2 tablet PO BID PRN PRN PRN Reason: Constipation Sodium Chloride (0.9% Saline Lock 10 Ml Syringe) 10 - 40 ml IV UD PRN PRN Reason: SALINE FLUSH Last Admin: 03/31/20 09:53 Dose: 10 ml Documented by: Medical Necessity - Tobacco Use Smoking Status: Never smoker Tobacco Use: Non-smoker Route of nutrition/ use of supplements: [] Nutritional Intake: [] IV Site: [] [place] Catheter: [] - Assessment/Plan Antibiotics: [] Assessment/Plan: [] Active and Suspected Problems (Last Reviewed 03/05/20 @ 10:00 by Montserrat Villa PA, PA) COVID-19 (Acute) Recent severe covid, now with fever, dyspnea, and yepez sputum. Diarrhea resolved, cdiff was neg. Changed zosyn to ceftriaxone 03/27. Sputum resolved, O2 improved. Completes 7 days total of abx tomorrow. Will follow
[2020-03-31] MEDS: Clopidogrel Bisulfate 75 MG Tablet PO (16:29)
--- NOTE | 2020-03-31 19:04 | NURSING ---
Report called to Duyen LAMB in PCU.
[2020-03-31] MEDS: MELATONIN 3 MG TABLET PO (21:29)
[2020-04-01 02:30] VITALS: BP 104/52; PULSE 89; RESP 18; TEMP 36.8; O2SAT 95
[2020-04-01 07:07] LABS: Absolute Lymphocyte Count 0.79 X10^3/uL (0.83-4.51); Absolute Neutrophil Count 6.1 X10^3/uL (2.0-7.7); Basophil# 0.03 X10^3/uL; Basophil% 0.4 % (0-1); Eosinophil# 0.12 X10^3/uL; Eosinophils% 1.5 % (0-5); Hematocrit 30.1 % (37-47); Hemoglobin 9.3 g/dL (12.0-15.0); Lymphocyte # 0.79 X10^3/ul (4.0); Lymphocyte % 9.9 % (19-41); Mean Corp Hgb Conc 30.9 g/dL (32-36); Mean Corpuscular Hgb 29.5 pg (27.0-32.0); Mean Corpuscular Volume 95.6 fL (81-99); Mean Platelet Vol. 10.9 fl (6.2-12.0); Monocyte# 0.77 X10^3/uL; Monocyte% 9.6 % (0-10); NRBC Flagged by Analyzer 0 % (0-5); Neutrophil # 6.14 X10^3/uL (2.7-7.7); Platelet Count 204 K/mm3 (150-450); RBC Distribution Width CV 14.1 % (11.6-14.6); RBC Distribution Width SD 49.3 fl (35.1-43.9); Red Blood Count 3.15 M/mm3 (4.2-5.4)
[2020-04-01 07:32] LABS: ALB/GLOB Ratio 0.4 RATIO (0.9-2.4); AST(SGOT) 50 U/L (15-37); Alanine Aminotransfer ALT/SGPT 53 U/L (13-56); Alkaline Phosphatase 92 U/L (45-117); Anion Gap 8 (5-15); BUN 42 mg/dL (7-18); BUN/Creat Ratio 29.8 RATIO (10-20); Calcium,Total 8.8 mg/dL (8.5-10.1); Chloride 107 mmol/L (98-107); Creatinine, Serum 1.41 mg/dL (0.55-1.02); EST Glomerular Filtration Rate 38 mL/min (>60); Est Glom Filt Rate - Afr Amer 46 mL/min (>60); Estimated Creatinine Clearance 21.71 ml/min; Globulin 4.8 g/dL (2.2-4.2); Glucose 101 mg/dL (74-106); Potassium 3.8 mmol/L (3.5-5.1); Protein, Total 6.8 g/dL (6.4-8.2); Sodium Level 139 mmol/L (136-145)
[2020-04-01 07:46] VITALS: BP 116/66; PULSE 85; RESP 16; TEMP 36.6; O2SAT 95
[2020-04-01] MEDS: Pantoprazole Sodium 20 MG Tablet PO (07:56)
[2020-04-01] MEDS: Lisinopril 10 MG Tablet PO (07:56)
[2020-04-01] MEDS: amLODIPine 2.5 MG Tablet PO (07:56)
[2020-04-01] MEDS: Amiodarone 200 MG Tablet 100 MG PO (07:57)
[2020-04-01] MEDS: APIXABAN 5 MG TABLET PO (07:57)
[2020-04-01 07:58] VITALS: BP 116/66; PULSE 85
[2020-04-01] MEDS: Metoprolol Tartrate 25 MG Tablet 12.5 MG PO (07:58)
[2020-04-01] MEDS: Levothyroxine 125 MCG Tablet PO (07:58)
[2020-04-01] MEDS: guaiFENesin 1,200 MG Tablet 1200 MG PO (07:58)
[2020-04-01 08:10] VITALS: O2SAT 88; O2SAT 92
--- NOTE | 2020-04-01 08:28 | PN_ITS ---
Patient Problems: Active and Suspected Problems (Last Reviewed 03/05/20 @ 10:00 by Montserrat Villa PA, PA) COVID-19 (Acute) Subjective: Patient did well overnight. No acute issues were reported. Patient feels subjectively slightly improved compared to yesterday. Oxygen requirements continue to improve. Patient continues to report a relatively nonproductive cough. - Physical Exam Vitals/I&O's: Vital Signs Temp Pulse Resp BP Pulse Ox 36.6 C 85 16 116/66 88 04/01/20 07:46 04/01/20 07:58 04/01/20 07:46 04/01/20 07:58 04/01/20 08:10 Oxygen Flow Rate (L/min) [ 4 AMBULATION with Oxygen] Oxygen Flow Rate (L/min) 3 Oxygen Delivery Method Nasal Cannula Weight: 77.8 kg Body Mass Index (BMI) 33.5 Intake and Output for Last 24 Hours 03/30/20 03/31/20 04/01/20 23:59 23:59 23:59 Intake Total 170 / 410 290 / 490 200 / 200 Output Total 360 / 360 Balance 170 / 50 -70 / 130 200 / 200 General: Alert, Oriented x3, Cooperative, No apparent distress, - - Comfortable sitting. Not evaluated with ambulation HEENT: Atraumatic, PERRLA, EOMI, Normocephalic, - - No scleral icterus or injection noted Oral: Moist Mucosa, No Gingival or Mucosal Lesions/ Ulcerations Neck: Supple, No JVD, No Nodes, Trachea Midline Lungs: No rhonchi, No wheeze, No rales, Diminished Cardiovascular: Normal S1, Normal S2, Irregular Rate, No rub noted, No Gallop Abdomen: Bowel Sounds Present, Soft, Non Tender, Non-Distended, Obese Extremities: No clubbing, No cyanosis, Edema - Improving Skin: - - No change compared to previous Musculoskeletal: No Tenderness to Palpation of Joints or Extremities Lymphatic: No Cervical, Supraclavicular, or Inguinal Adenopathy Neurological: Cranial nerves II-XII grossly intact, Neuro grossly intact, Motor Exam 5/5 strength throughout Psych/Mental Status: Alert and oriented to time, place, person, mood and affect Microbiology Past 72 Hours 03/27/20 06:25 Sputum, Expectorated/Coughed Gram Stain - Final 03/27/20 06:25 Sputum, Expectorated/Coughed Respiratory Culture - Final Presumptive C albicans Staphylococcus aureus 03/25/20 15:05 Blood Culture (Wb) #2 - Anticubital Right Blood Culture - Final No growth in 5 days. 03/25/20 14:54 Blood Culture (Wb) - Anticubital Left Blood Culture - Final No growth in 5 days. Laboratory Results 04/01/20 06:52: WBC 8.0, RBC 3.15 L, Hgb 9.3 L, Hct 30.1 L, MCV 95.6, MCH 29.5, MCHC 30.9 L, RDW Std Deviation 49.3 H, RDW Coeff of Leatha 14.1, Plt Count 204, MPV 10.9, Immature Gran % (Auto) 1.600 H, Neut % (Auto) 77.0 H, Lymph % (Auto) 9.9 L , [place] % (Auto) 9.6, Eos % (Auto) 1.5, Baso % (Auto) 0.4, Absolute Neuts (auto) 6.1, Absolute Lymphs (auto) 0.79 L, Nucleated RBC % 0 04/01/20 06:52: Sodium 139, Potassium 3.8, Chloride 107, Carbon Dioxide 24.0, Anion Gap 8, BUN 42 H, Creatinine 1.41 H, Estim Creat Clear Calc 21.71, Est GFR (MDRD) Af Amer 46 L, Est GFR (MDRD) Non-Af 38 L, BUN/Creatinine Ratio 29.8 H, Glucose 101, Calcium 8.8, Total Bilirubin 0.50, AST 50 H, ALT 53, Alkaline Phosphatase 92, Total Protein 6.8, Albumin 2.0 L, Globulin 4.8 H, Albumin/[place] bulin Ratio 0.4 L Current Medications Acetaminophen (Acetaminophen 325 Mg Tablet) 650 mg PO Q6H PRN PRN PRN Reason: Pain Score 1-10/Temp > 100.7 F Hydrocodone Bitart/Acetaminophen (Hydrocodone Bitartrate/Apap 5/325 Tablet) 1 tablet PO Q6H PRN PRN PRN Reason: Pain Score 4-10 Last Admin: 03/26/20 14:38 Dose: 1 tablet Documented by: Al Hydroxide/Mg Hydroxide (Mag Hydrox/Al Hydrox/Simeth 30 Ml Udc) 30 ml PO Q6H PRN PRN PRN Reason: Gastric Burning Albuterol Sulfate (Albuterol Sulfate 8 Gm Inhaler (60 Puffs)) 1 puff INHALATION Q2H PRN PRN PRN Reason: Shortness of Breath/Wheezing Last Admin: 03/29/20 16:52 Dose: 1 puff Documented by: Amiodarone HCl (Amiodarone 200 Mg Tablet) 100 mg PO DAILY [facility] Last Admin: 04/01/20 07:57 Dose: 100 mg Documented by: Amlodipine Besylate (Amlodipine 2.5 Mg Tablet) 2.5 mg PO DAILY [facility] Last Admin: 04/01/20 07:56 Dose: 2.5 mg Documented by: Apixaban (Apixaban 5 Mg Tablet) 5 mg PO BID [facility] Last Admin: 04/01/20 07:57 Dose: 5 mg Documented by: Calamine/Phenol (Menthol/Lanolin/Calamine/Znox 113 Gm Tube) 1 applic TOPICAL BID [facility]; Protocol Last Admin: 03/31/20 21:16 Dose: Not Given Documented by: Clopidogrel Bisulfate (Clopidogrel Bisulfate 75 Mg Tablet) 75 mg PO DINNER [facility] Last Admin: 03/31/20 16:29 Dose: 75 mg Documented by: Furosemide (Furosemide 40 Mg/4 Ml Vial) 40 mg IV BID [facility] Last Admin: 03/31/20 21:18 Dose: 40 mg Documented by: Guaifenesin (Guaifenesin 1,200 Mg Tablet) 1,200 mg PO BID [facility] Last Admin: 04/01/20 07:58 Dose: 1,200 mg Documented by: Hydralazine HCl (Hydralazine 20 Mg/Ml Vial) 10 mg IV Q4H PRN PRN PRN Reason: SBP > 160 Ceftriaxone Sodium 2 gm/ (Sodium Chloride) 50 mls @ 100 mls/hr IV Q24 [facility] Last Infusion: 03/31/20 09:50 Dose: Infused Documented by: Sodium Chloride () 250 mls @ 15 mls/hr IV .[id number] PRN PRN Reason: Saline Flush Sodium Chloride () 250 mls @ 15 mls/hr IV .[id number] PRN PRN Reason: Additional IVPB Infusion Lactobacillus Acidophilus (Lactobacillus Acidophilus) 1 tablet PO BID [facility] Last Admin: 04/01/20 07:56 Dose: 1 tablet Documented by: Levothyroxine Sodium (Levothyroxine 125 Mcg Tablet) 125 mcg PO DAILY [facility] Last Admin: 04/01/20 07:58 Dose: 125 mcg Documented by: Lisinopril (Lisinopril 10 Mg Tablet) 10 mg PO DAILY [facility] Last Admin: 04/01/20 07:56 Dose: 10 mg Documented by: Loperamide HCl (Loperamide 2 Mg Capsule) 2 mg PO Q2H PRN PRN PRN Reason: diarrhea, loose stools Last Admin: 03/31/20 21:29 Dose: 2 mg Documented by: Melatonin (Melatonin 3 Mg Tablet) 3 mg PO QHS PRN PRN PRN Reason: INSOMNIA Last Admin: 03/31/20 21:29 Dose: 3 mg Documented by: Metoprolol Tartrate (Metoprolol Tartrate 25 Mg Tablet) 12.5 mg PO BID [facility] Last Admin: 04/01/20 07:58 Dose: 12.5 mg Documented by: Miscellaneous Information (Inhaler, Assist Devices 1 Each Spacer) 1 each INHALATION Q2H PRN PRN PRN Reason: Albuterol MDI Nitroglycerin (Nitroglycerin (Inpatient Use) 0.4 Mg Tab.Subl) 0.4 mg SUBLINGUAL Q5M PRN PRN Reason: CARDIAC/CHEST PAIN Pantoprazole Sodium (Pantoprazole Sodium 20 Mg Tablet) 20 mg PO DAILY [facility] Last Admin: 04/01/20 07:56 Dose: 20 mg Documented by: Prochlorperazine Edisylate (Prochlorperazine 10 Mg/2 Ml Vial) 5 mg IV Q4H PRN PRN PRN Reason: Breakthrough nausea/vomiting Senna/Docusate Sodium (Senna/Docusate Sodium 1 Tablet) 2 tablet PO BID PRN PRN PRN Reason: Constipation Sodium Chloride (0.9% Saline Lock 10 Ml Syringe) 10 - 40 ml IV UD PRN PRN Reason: SALINE FLUSH Last Admin: 03/31/20 21:18 Dose: 10 ml Documented by: Medical Necessity - Tobacco Use Smoking Status: Never smoker Tobacco Use: Non-smoker Assessment/Plan All Active Problems (Last Reviewed 03/05/20 @ 10:00 by Montserrat Villa PA, PA) COVID-19 (Acute) H/O coronary artery bypass surgery (Resolved 01/2016) Atypical chest pain (Resolved) RECOMMENDATIONS: 1. Wean supplemental oxygen to maintain saturations at or above 90%. 2. Decrease current diuresis as tolerated by hemodynamics and renal function. 3. Continue antimicrobials per ID recommendations. 4. Encourage incentive spirometer use and mobilize patient as tolerated. 5. Continue systemic anticoagulation with Eliquis. 6. Discharge planning IMPRESSIONS: 1. Acute hypoxemic respiratory failure, likely the sequelae of prior Covid infection and decompensated heart failure The patient was already previously treated with remdesivir and Decadron. She remains on antimicrobials under the discretion of infectious diseases over suspicion for possible community-acquired pneumonia. Plan to continue supplem ental oxygen to maintain saturations at or above 90%. Oxygenation continues to improve. Patient is showing some contraction associated with diuretics. Will decrease to daily dosing. 2. History of coronary artery disease status post CABG/bioprosthetic aortic valve/diastolic heart failure/paroxysmal atrial fibrillation Complicates care, management, recovery and prognosis. Continue home medications as indicated. Inpatient E&M: [id number] [facility] L2
[2020-04-01] MEDS: Menthol/Lanolin/Calamine/Znox 113 GM Tube 1 APPLIC TOPICAL (10:36)
[2020-04-01] MEDS: 0.9% Saline Lock 10 ML Syringe IV (10:36)
[2020-04-01] MEDS: Furosemide 40 MG/4 ML Vial IV (10:37)
--- NOTE | 2020-04-01 10:58 | CASEMGMT ---
Addendum entered by Yohana Sarabia 04/01/20 11:30: D/C summ/instructions faxed to [facility] at this time. Lilia LAMB CM Original Note: Per Duyen RN, pt does qualify for 3L cont and 4L w/ exertion at this time. Pt had already stated preference for [employer] for [employer] and [place] [facility]. Pt has already been set up with [facility] as well and call to them at this time to update on discharge today, voice understanding. This RN CM to fax d/c summ/instructions when obtained. Call to Olga at [facility] to notify of referral and pt discharge today, voices understanding. This RN REINALDO updated pt on all, voices understanding. Pt voices no further questions/concerns/needs at this time. Lilia LAMB CM
--- NOTE | 2020-04-01 11:05 | DCINST_ITS ---
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) Nonrheumatic aortic valve insufficiency (Chronic) Nonrheumatic mitral (valve) insufficiency (Chronic) Secondary pulmonary arterial hypertension (Chronic) Paroxysmal atrial fibrillation (Chronic) Takotsubo cardiomyopathy (Chronic) Atherosclerosis of coronary artery of [place] heart without angina pectoris (Chronic) CABG x 2 VALERIO-LAD, 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/2015 History of aortic valve replacement with bioprosthetic valve (Chronic 01/2016) You will use the following diet at home:: No restrictions Your food should be the consistency of: Regular Your liquids should be the consistency of: Regular/Thin Discharge Activity: Return to Normal Activity Call your doctor if you observe: Fever of 101 or Higher Allergies/Adverse Reactions: Allergies atorvastatin [From Lipitor] Adverse Reaction (Verified 03/22/20 09:17) Pain in joints niacin Adverse Reaction (Verified 03/22/20 09:17) Pain in joints pregabalin [From Lyrica] Adverse Reaction (Verified 03/25/20 16:20) leg pain simvastatin [From Zocor] Adverse Reaction (Verified 03/22/20 09:17) Pain in joints Medications to take at Discharge Nitroglycerin (INPATIENT USE) [Nitrostat] 0.4 mg SUBLINGUAL Q5M PRN 02/24/16 levothyroxine 125 mcg tablet 125 mcg PO DAILY #30 tab 11/14/18 metoprolol tartrate 25 mg tablet 12.5 mg PO BID tab 12/31/19 hydrocodone 5 mg-acetaminophen 300 mg tablet 1 tab PO Q6H PRN 02/29/20 amiodarone 200 mg tablet 100 mg PO DAILY tab 03/05/20 amlodipine 2.5 mg tablet 2.5 mg PO DAILY tab 03/05/20 Clopidogrel Bisulfate [Clopidogrel] 75 mg PO DINNER 03/13/20 Furosemide 40 mg PO BID 03/13/20 Lisinopril [Prinivil] 10 mg PO DAILY 03/13/20 Omeprazole 20 mg PO DAILY 03/13/20 Apixaban [Eliquis] 5 mg PO BID 03/25/20 Guaifenesin [Mucinex] 1,200 mg PO BID #10 tab 04/01/20 Lactobacillus Acidophilus [Acidophilus] 1 tab PO BID #10 tab 04/01/20 Loperamide [Imodium] 2 mg PO Q2H PRN PRN capsule 04/01/20 The following prescriptions were given: Lactobacillus Acidophilus [Acidophilus] 1 tab PO BID #10 tab Transmission Status: Pending to [facility] Guaifenesin [Mucinex] 1,200 mg PO BID #10 tab Transmission Status: Pending to [facility] Primary Care Physician: Matteo West III, MD [Primary Care Provider] - Test Results: Test results from this visit will be discussed in further detail at your follow- up appointment, if applicable. Proposed Discharge Date: 04/01/20
--- NOTE | 2020-04-01 11:09 | DS.PCM_ITS ---
Discharge Date and Diagnosis - Problem List Patient Problems: Active and Suspected Problems (Last Reviewed 03/05/20 @ 10:00 by Montserrat MOELLER, PA) COVID-19 (Acute) Date of Admission: 03/25/20 Date of Discharge: 04/01/20 - Primary Discharge Diagnosis Acute Problems: Active Problems (Last Reviewed 03/05/20 @ 10:00 by Montserrat MOELLER, PA) 1. Acute Hypoxic Respiratory Failure * improved * secondary to Bilateral Pneumonia secondary to Acute Viral Syndrome, COVID-19, pneumonia * wean oxygen as tolerated * furosemide challenge 2. MSSA pneumonia * on CTX * pulm toilet 3. COVID 19 * reviewed with infection control. Onset of symptoms 02/29/2020, will DC isolation 4. PAF with RVR: * Patient upon ED arrival with EKG with atrial fibrillation with RVR with nonspecific ST changes likely secondary to acute presentation as noted #1, improved following admission and treatment #1, maintain on cardiac telemetry, cardiac enzymes initially 0.286 with trending continued with improvement--> 0.181--> 0.148 x 2, magnesium level 2.2, * continued on amiodarone, Eliquis and metoprolol therapy with increased dosage and continue treatment of #1. 5. Acute on Chronically Elevated Troponins * likely secondary to Demand Ischemic secondary to #1, #2: Admission troponin 0.286, prior 03/13/20 0.108; however, 06/30/2017 0.219, maintained on telemetry, 0.286 with trending continued with improvement--> 0.181--> 0.148 x 2, mag no rmal, TSH low with free T4 1.67, given acute presentation and acute illness discussed with PCP and would plan follow-up once clinically improved outpatient. 6. Takotsubo cardiomyopathy: * Continue home eliquis, Lasix, lisinopril, metoprolol regimen, not on statin therapy, defer to outpatient. * 03/24/2018 echocardiogram with normal LV size, normal LV systolic function, EF 55%, stage III diastolic dysfunction, mild LUX with bioprosthetic aortic valve. 7. CAD, Valvular Heart Disease: * Patient s/p CABG x 2 VALERIO-LAD, 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/2015 and PCI KHOI LAD 2014, will continue home Eliquis, metoprolol, lisinopril regimen, not on statin therapy, defer to outpatient. Most recent echo as noted. 8. CKD stage III: * Admission BUN/Cr 40/1.49, baseline Cr appears primarily 1.4-1.6, 03/26/20 BUN/Cr 45/1.46--> 03/27/2020 BUN/creatinine 58/1.58, likely mild increase secondary to IV Lasix usage as noted, attempted to resume patient home oral regimen however worsened pulmonary status as noted above, 03/29/2020 transition back to Lasix 40 mg IV once daily, 03/30/2020 BUN/creatinine 49/1.50, continue to closely monitor. 9. Hypothyroidism: * Continue home synthroid regimen, TSH low, FT4 1.67 which was discussed with primary care physician as obtained in the acute setting therefore recommendation for repeat outpatient once acute presentation has resolved which PCP is amenable. 10. Chronic anemia: * Admission Hgb 10.9, baseline appears 10-11, 03/30/2020 hemoglobin 9.9, continue to trend. 11. Hypokalemia: * resolved * Admission K+ 3.3, supplementation given, 03/30/2020 K+ 4.0, continue to closely monitor as resumption of IV Lasix as noted. 12. PUD: We will continue patient home PPI. - Secondary Discharge Diagnosis Chronic Problems: Chronic Problems (Last Reviewed 03/05/20 @ 10:00 by Montserrat Villa PA, PA) Essential hypertension (Chronic) History of coronary artery stent placement (Chronic 2014) PCI-KHOI-LAD 2014 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) Nonrheumatic aortic valve insufficiency (Chronic) Nonrheumatic mitral (valve) insufficiency (Chronic) Secondary pulmonary arterial hypertension (Chronic) Paroxysmal atrial fibrillation (Chronic) Takotsubo cardiomyopathy (Chronic) Atherosclerosis of coronary artery of [place] heart without angina pectoris (Chronic) CABG x 2 VALERIO-LAD, 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/2015 History of aortic valve replacement with bioprosthetic valve (Chronic 01/2016) Hospital Course and Treatment Imaging Results: Clinical Impression(s) from Imaging Studies Chest X-Ray 03/25/20 14:42 IMPRESSION: Since prior study, there has been progressive bilateral pulmonary infiltrates. Electronically Signed: Manish Zapata MD at 15:23 EST , Service support , NubiaANTHONY Kirbyjulio butler Operations: None Procedures: None Summary of Care Provided: The patient is a 85 year old F presents with worsening shortness of breath. Patient was admitted from March 13 and for COVID-19 pneumonia and discharged with Decadron. She got worse and presented again on the and was likely found to have MSSA pneumonia. Patient was continued on antibiotics which was vancomycin and transitioned over to ceftriaxone and patient has steadily improved. Patient did have IV furosemide on the which did help her overall in regards to requiring less oxygen. Patient was 90% on 4 L of oxygen. 88% on room air. Patient will require 4 L of oxygen with activity. [] Patient Problems: Active and Suspected Problems (Last Reviewed 03/05/20 @ 10:00 by Montserrat MOELLER, PA) COVID-19 (Acute) - Physical Exam Vitals/I&O's: Vital Signs Temp Pulse Resp BP Pulse Ox 36.6 C 85 16 116/66 88 04/01/20 07:46 04/01/20 07:58 04/01/20 07:46 04/01/20 07:58 04/01/20 08:10 Oxygen Flow Rate (L/min) [ 4 AMBULATION with Oxygen] Oxygen Flow Rate (L/min) 3 Oxygen Delivery Method Nasal Cannula Weight: 77.8 kg Body Mass Index (BMI) 33.5 Intake and Output for Last 24 Hours 03/30/20 03/31/20 04/01/20 23:59 23:59 23:59 Intake Total 170 / 410 290 / 490 200 / 200 Output Total 360 / 360 Balance 170 / 50 -70 / 130 200 / 200 General: Alert, No apparent distress HEENT: Atraumatic, Normocephalic Oral: Moist Mucosa, No Gingival or Mucosal Lesions/ Ulcerations Neck: No Nodes, Thyroid Normal Size and Texture Lungs: - - coarse breath sounds bilaterally Cardiovascular: Regular rate, Regular Rhythm, Normal S1, Normal S2, No murmurs Abdomen: Bowel Sounds Present, Soft, Non Tender, Non-Distended Extremities: No edema, No Calf Tenderness Psych/Mental Status: Normal Affect, Appropriate Microbiology Past 72 Hours 03/27/20 06:25 Sputum, Expectorated/Coughed Gram Stain - Final 03/27/20 06:25 Sputum, Expectorated/Coughed Respiratory Culture - Final Presumptive C albicans Staphylococcus aureus 03/25/20 15:05 Blood Culture (Wb) #2 - Anticubital Right Blood Culture - Final No growth in 5 days. 03/25/20 14:54 Blood Culture (Wb) - Anticubital Left Blood Culture - Final No growth in 5 days. Laboratory Results 04/01/20 06:52: WBC 8.0, RBC 3.15 L, Hgb 9.3 L, Hct 30.1 L, MCV 95.6, MCH 29.5, MCHC 30.9 L, RDW Std Deviation 49.3 H, RDW Coeff of Leatha 14.1, Plt Count 204, MPV 10.9, Immature Gran % (Auto) 1.600 H, Neut % (Auto) 77.0 H, Lymph % (Auto) 9.9 L , [place] % (Auto) 9.6, Eos % (Auto) 1.5, Baso % (Auto) 0.4, Absolute Neuts (auto) 6.1, Absolute Lymphs (auto) 0.79 L, Nucleated RBC % 0 04/01/20 06:52: Sodium 139, Potassium 3.8, Chloride 107, Carbon Dioxide 24.0, Anion Gap 8, BUN 42 H, Creatinine 1.41 H, Estim Creat Clear Calc 21.71, Est GFR (MDRD) Af Amer 46 L, Est GFR (MDRD) Non-Af 38 L, BUN/Creatinine Ratio 29.8 H, Glucose 101, Calcium 8.8, Total Bilirubin 0.50, AST 50 H, ALT 53, Alkaline Phosphatase 92, Total Protein 6.8, Albumin 2.0 L, Globulin 4.8 H, Albumin/Globulin Ratio 0.4 L Current Medications Acetaminophen (Acetaminophen 325 Mg Tablet) 650 mg PO Q6H PRN PRN PRN Reason: Pain Score 1-10/Temp > 100.7 F Hydrocodone Bitart/Acetaminophen (Hydrocodone Bitartrate/Apap 5/325 Tablet) 1 tablet PO Q6H PRN PRN PRN Reason: Pain Score 4-10 Last Admin: 03/26/20 14:38 Dose: 1 tablet Documented by: Al Hydroxide/Mg Hydroxide (Mag Hydrox/Al Hydrox/Simeth 30 Ml Udc) 30 ml PO Q6H PRN PRN PRN Reason: Gastric Burning Albuterol Sulfate (Albuterol Sulfate 8 Gm Inhaler (60 Puffs)) 1 puff INHALATION Q2H PRN PRN PRN Reason: Shortness of Breath/Wheezing Last Admin: 03/29/20 16:52 Dose: 1 puff Documented by: Amiodarone HCl (Amiodarone 200 Mg Tablet) 100 mg PO DAILY [facility] Last Admin: 04/01/20 07:57 Dose: 100 mg Documented by: Amlodipine Besylate (Amlodipine 2.5 Mg Tablet) 2.5 mg PO DAILY [facility] Last Admin: 04/01/20 07:56 Dose: 2.5 mg Documented by: Apixaban (Apixaban 5 Mg Tablet) 5 mg PO BID [facility] Last Admin: 04/01/20 07:57 Dose: 5 mg Documented by: Calamine/Phenol (Menthol/Lanolin/Calamine/Znox 113 Gm Tube) 1 applic TOPICAL BID [facility]; Protocol Last Admin: 04/01/20 10:36 Dose: 1 applicatio Documented by: Clopidogrel Bisulfate (Clopidogrel Bisulfate 75 Mg Tablet) 75 mg PO DINNER [facility] Last Admin: 03/31/20 16:29 Dose: 75 mg Documented by: Furosemide (Furosemide 40 Mg/4 Ml Vial) 40 mg IV DAILY [facility] Last Admin: 04/01/20 10:37 Dose: 40 mg Documented by: Guaifenesin (Guaifenesin 1,200 Mg Tablet) 1,200 mg PO BID [facility] Last Admin: 04/01/20 07:58 Dose: 1,200 mg Documented by: Hydralazine HCl (Hydralazine 20 Mg/Ml Vial) 10 mg IV Q4H PRN PRN PRN Reason: SBP > 160 Ceftriaxone Sodium 2 gm/ (Sodium Chloride) 50 mls @ 100 mls/hr IV Q24 [facility] Last Admin: 04/01/20 10:37 Dose: 50 mls/hr Documented by: Sodium Chloride () 250 mls @ 15 mls/hr IV .[id number] PRN PRN Reason: Saline Flush Sodium Chloride () 250 mls @ 15 mls/hr IV .[id number] PRN PRN Reason: Additional IVPB Infusion Lactobacillus Acidophilus (Lactobacillus Acidophilus) 1 tablet PO BID [facility] Last Admin: 04/01/20 07:56 Dose: 1 tablet Documented by: Levothyroxine Sodium (Levothyroxine 125 Mcg Tablet) 125 mcg PO DAILY [facility] Last Admin: 04/01/20 07:58 Dose: 125 mcg Documented by: Lisinopril (Lisinopril 10 Mg Tablet) 10 mg PO DAILY [facility] Last Admin: 04/01/20 07:56 Dose: 10 mg Documented by: Loperamide HCl (Loperamide 2 Mg Capsule) 2 mg PO Q2H PRN PRN PRN Reason: diarrhea, loose stools Last Admin: 03/31/20 21:29 Dose: 2 mg Documented by: Melatonin (Melatonin 3 Mg Tablet) 3 mg PO QHS PRN PRN PRN Reason: INSOMNIA Last Admin: 03/31/20 21:29 Dose: 3 mg Documented by: Metoprolol Tartrate (Metoprolol Tartrate 25 Mg Tablet) 12.5 mg PO BID [facility] Last Admin: 04/01/20 07:58 Dose: 12.5 mg Documented by: Miscellaneous Information (Inhaler, Assist Devices 1 Each Spacer) 1 each INHALATION Q2H PRN PRN PRN Reason: Albuterol MDI Nitroglycerin (Nitroglycerin (Inpatient Use) 0.4 Mg Tab.Subl) 0.4 mg SUBLINGUAL Q5M PRN PRN Reason: CARDIAC/CHEST PAIN Pantoprazole Sodium (Pantoprazole Sodium 20 Mg Tablet) 20 mg PO DAILY [facility] Last Admin: 04/01/20 07:56 Dose: 20 mg Documented by: Prochlorperazine Edisylate (Prochlorperazine 10 Mg/2 Ml Vial) 5 mg IV Q4H PRN PRN PRN Reason: Breakthrough nausea/vomiting Senna/Docusate Sodium (Senna/Docusate Sodium 1 Tablet) 2 tablet PO BID PRN PRN PRN Reason: Constipation Sodium Chloride (0.9% Saline Lock 10 Ml Syringe) 10 - 40 ml IV UD PRN PRN Reason: SALINE FLUSH Last Admin: 04/01/20 10:36 Dose: 20 ml Documented by: Discharge Diet: No Restrictions Discharge Activity: Return to Normal Activity Call your doctor if you observe: Fever of 101 or Higher Home Medications: Medications to take at Discharge Nitroglycerin (INPATIENT USE) [Nitrostat] 0.4 mg SUBLINGUAL Q5M PRN 02/24/16 levothyroxine 125 mcg tablet 125 mcg PO DAILY #30 tab 11/14/18 metoprolol tartrate 25 mg tablet 12.5 mg PO BID tab 12/31/19 hydrocodone 5 mg-acetaminophen 300 mg tablet 1 tab PO Q6H PRN 02/29/20 amiodarone 200 mg tablet 100 mg PO DAILY tab 03/05/20 amlodipine 2.5 mg tablet 2.5 mg PO DAILY tab 03/05/20 Clopidogrel Bisulfate [Clopidogrel] 75 mg PO DINNER 03/13/20 Furosemide 40 mg PO BID 03/13/20 Lisinopril [Prinivil] 10 mg PO DAILY 03/13/20 Omeprazole 20 mg PO DAILY 03/13/20 Apixaban [Eliquis] 5 mg PO BID 03/25/20 Guaifenesin [Mucinex] 1,200 mg PO BID #10 tab 04/01/20 Lactobacillus Acidophilus [Acidophilus] 1 tab PO BID #10 tab 04/01/20 Loperamide [Imodium] 2 mg PO Q2H PRN PRN capsule 04/01/20 Following Prescriptions Were Given to Patient: Lactobacillus Acidophilus [Acidophilus] 1 tab PO BID #10 tab Transmission Status: Pending to [facility] Guaifenesin [Mucinex] 1,200 mg PO BID #10 tab Transmission Status: Pending to [facility] Primary Care Physician: Matteo West III, MD [Primary Care Provider] - Disposition: Home with Home Health Minutes spent on discharge:: 352 Patient Condition:: Fair Medical Necessity - Tobacco Use Smoking Status: Never smoker Tobacco Use: Non-smoker Meaningful Use Info Meaningful Use Diagnoses (Choose all that apply): None applicable Inpatient E&M: 99908 Disch Hosp
--- NOTE | 2020-04-01 11:46 | PHA.DC.MC ---
Pharmacy Service has performed discharge medication reconciliation and counseling for this patient. 1. LACTOBACILLUS ACIDOPHILUS 1T PO BID 2. GUAIFENESIN 1200MG PO BID 3. LOPERAMIDE 2MG PO Q2H PRN DIARRHEA The patient's discharge medication list was reviewed for discrepancies and discrepancies were resolved. Home Medications Nitroglycerin (INPATIENT USE) [Nitrostat] 0.4 mg SUBLINGUAL Q5M PRN 02/24/16 levothyroxine 125 mcg tablet 125 mcg PO DAILY #30 tab 11/14/18 metoprolol tartrate 25 mg tablet 12.5 mg PO BID tab 12/31/19 hydrocodone 5 mg-acetaminophen 300 mg tablet 1 tab PO Q6H PRN 02/29/20 amiodarone 200 mg tablet 100 mg PO DAILY tab 03/05/20 amlodipine 2.5 mg tablet 2.5 mg PO DAILY tab 03/05/20 Clopidogrel Bisulfate [Clopidogrel] 75 mg PO DINNER 03/13/20 Furosemide 40 mg PO BID 03/13/20 Lisinopril [Prinivil] 10 mg PO DAILY 03/13/20 Omeprazole 20 mg PO DAILY 03/13/20 Apixaban [Eliquis] 5 mg PO BID 03/25/20 Guaifenesin [Mucinex] 1,200 mg PO BID #10 tab 04/01/20 Lactobacillus Acidophilus [Acidophilus] 1 tab PO BID #10 tab 04/01/20 Loperamide [Imodium] 2 mg PO Q2H PRN PRN cap 04/01/20 The patient was counseled on the following discharge medications and changes in medications for homegoing were reviewed. The Reason for Use, instructions for use, and potential side effects were reviewed for all new medications. The patient's questions regarding all of their medications were answered. The patient was able to verbally demonstrate an understanding of their discharge medications. Patient counseled by instructor adjunct pharmacy technician, Briana.
--- NOTE | 2020-04-03 16:03 | CASEMGMT ---
ADONIS NAJERA Discharge Follow-Up Phone Call. [place]: 16 Strata: 4 Discharge Date: 04/01/20 Adm Dx: arnav AGRAWAL PE Call to pt to inquire about how she has been doing since being discharged from the hospital. Pt stated she is doing pretty good and her breathing is pretty good. She states [facility]) was out to see her today for start of care. She states she did get her new prescriptions prior to discharge and she has no questions about them. She states the [facility] nurse stated to her concern with being on both Plavix and Eliquis. ADONIS NAJERA informed pt that these medications are sometimes ordered together and that ADONIS NAJERA reviewed Dr Aldana's documentation and he was aware pt on both of these medications and d/c instructions were for her to continue both of them. ADONIS NAJERA advised pt to f/u with [facility] or her PCP for further questions or to clarify if she has further concerns. She voices appreciation. She states she has not called her PCP yet to schedule a f/u appt, but she plans to do so soon. She denies having other questions/concerns/needs at this time. Marlys CHOW RN, CM
== END 2020-04-01 13:10 | disposition home health service (06) | DRG 177 ==
LOC: ED 15:49 → MS2 17:36 → PCU 04-01 13:23
PROVIDERS: Family Medicine; Internal Medicine Critical Care Medicine; Admitting Provider Internal Medicine; Emergency Provider Emergency Medicine; PCP Family Medicine
DX: J15.211 Pneumonia due to Methicillin susceptible Staphylococcus aureus (principal); J96.01 Acute respiratory failure with hypoxia; I50.33 Acute on chronic diastolic (congestive) heart failure; I13.0 Hypertensive heart and chronic kidney disease with heart failure and stage 1 through stage 4 chronic kidney disease, or unspecified chronic kidney disease; K52.1 Toxic gastroenteritis and colitis; T36.95XA Adverse effect of unspecified systemic antibiotic, initial encounter; I48.0 Paroxysmal atrial fibrillation; N18.30 Chronic kidney disease, stage 3 unspecified; E87.6 Hypokalemia; E86.0 Dehydration; I27.21 Secondary pulmonary arterial hypertension; I37.1 Nonrheumatic pulmonary valve insufficiency; I35.1 Nonrheumatic aortic (valve) insufficiency; I34.0 Nonrheumatic mitral (valve) insufficiency; I25.10 Atherosclerotic heart disease of native coronary artery without angina pectoris; E03.9 Hypothyroidism, unspecified; Y92.9 Unspecified place or not applicable; Z68.33 Body mass index [BMI] 33.0-33.9, adult; Z79.890 Hormone replacement therapy; Z79.01 Long term (current) use of anticoagulants; Z79.02 Long term (current) use of antithrombotics/antiplatelets; Z79.899 Other long term (current) drug therapy; Z86.16 Personal history of COVID-19; Z87.11 Personal history of peptic ulcer disease; Z95.1 Presence of aortocoronary bypass graft; Z95.5 Presence of coronary angioplasty implant and graft; Z95.3 Presence of xenogenic heart valve; Z96.653 Presence of artificial knee joint, bilateral
CPT/HCPCS: 36415; 71045; 80048; 80053; 81001; 82550; 83605; 83615; 83735; 83880; 84145; 84439; 84443; 84484; 85025; 85379; 85384; 87040; 87070; 87077; 87186; 87205; 87449; 87493; 87633; 87641; 93005; 94640; 94667; 96360; 96361; 97110; 97116; 97162; 97166; 97530; 97535; 99251; 99285; J7030; J7050; J7120; A4216; G0463; J0696; J1940

== ENCOUNTER 2020-04-29 06:05 | Inpatient (IN) | payer MEDICARE, SELFPAY ==
[2020-03-25 18:00] VITALS: BMI 33.5
[2020-04-29] VITALS (14 sets, daily range): BP systolic 99–138; BP diastolic 44–64; PULSE 87–120; RESP 16–22; TEMP 36.3–36.8; O2SAT 90–99; BMI 36.4; BMI 35.2
--- NOTE | 2020-04-29 06:27 | RAD_ITS ---
STUDY: X-RAY - PELVIS AND LEFT HIP REASON FOR EXAM: Left hip pain. TECHNIQUE: 2 views of the pelvis and hip. COMPARISON: None. FINDINGS: There is osteopenia. There is vascular calcification. Normal bilateral iliac wings, sacroiliac joints and visualized sacrum. Normal bilateral superior and inferior pubic rami. Normal pubic symphysis. There is mild enthesopathy of the bilateral ischial tuberosities. There is a fracture at the base of the left femoral neck with varus angulation. Normal acetabulum. Normal hip joint. RAD/HIP, UNI W/ Pelvis 2-3 Views IMPRESSION: Left femoral neck fracture. Electronically Signed: Emile Mustafa MD at 7:11 EDT Tel , Service support ,
[2020-04-29] MEDS: Ondansetron 4 MG/2 ML Vial IV (06:33)
--- NOTE | 2020-04-29 06:33 | ED.VIS.GEN ---
History of Present Illness Chief Complaint: Lower Extremity Injury Informant: Patient Narrative: 85-year-old female presenting from home with a chief complaint of left hip pain. Patient states that she has a history of having [id number] pain of the left hip. She reports that she has been seen primary care and they last saw that her on Tuesday and gave her Percocet. She states that tonight she had to be wheeled into the bathroom and was unable to get out due to pain of the hip. EMS was called and they gave her a dose of fentanyl and transferred to the hospital. No direct trauma to the hip. No fevers. No rashes. Patient states that she has not seen an orthopedist for about 10 years. She states that she has been told that nobody will want to do surgery on her hip because she has had heart disease and an esophagus surgery. Most recently the patient was hospitalized with COVID-19. She notes no trauma but does state that she fell in October after which she did have x-rays that did not show any fracture. tells me that her hip pain has been progressively worsening but most pronounced over the weekend. - Past Medical History (1) Atherosclerosis of coronary artery of [place] heart without angina pectoris Status: Chronic Comment: CABG x 2 VLAERIO-LAD, 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/2015 (2) Chronic combined systolic and diastolic CHF (congestive heart failure) Status: Chronic (3) Essential hypertension Status: Chronic (4) History of aortic valve replacement with bioprosthetic valve Status: Chronic (5) History of coronary artery stent placement Status: Chronic Comment: PCI-KHOI-LAD 2014 (6) Nonrheumatic aortic valve insufficiency Status: Chronic (7) Nonrheumatic mitral (valve) insufficiency Status: Chronic (8) Nonrheumatic pulmonary valve insufficiency Status: Chronic (9) Paroxysmal atrial fibrillation Status: Chronic (10) Secondary pulmonary arterial hypertension Status: Chronic (11) Takotsubo cardiomyopathy Status: Chronic (12) COVID-19 virus detected Status: Resolved (13) H/O coronary artery bypass surgery Status: Resolved Comment: CABG x 2 VALERIO-LAD, 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/2015 Past Medical History - Allergies and Home Meds Allergies/Adverse Reactions: Allergies atorvastatin [From Lipitor] Adverse Reaction (Verified 04/29/20 06:10) Pain in joints niacin Adverse Reaction (Verified 04/29/20 06:10) Pain in joints pregabalin [From Lyrica] Adverse Reaction (Verified 04/29/20 06:10) leg pain simvastatin [From Zocor] Adverse Reaction (Verified 04/29/20 06:10) Pain in joints Primary Care Physician: Matteo West III, MD [Primary Care Provider] - Surgical History: coronary bypass surgery Lives: Spouse/ Significant Other Smoking Status: Never smoker Drugs: None - Family History Maternal Family History: Family History (Last Reviewed 03/05/20 @ 10:00 by Montserrat Villa PA, PA) Mother Diabetes Heart disease Other CAD (coronary artery disease) Family History: Reports: Diabetes, Heart Disease Review of Systems General: Denies: Chills, Fever, Sweats Eyes: Denies: Visual changes - bilaterally, Diplopia ENT: Denies: Rhinorrhea, Sore throat Cardiovascular: Denies: Chest pain, Palpitations Respiratory: Denies: Dyspnea, Cough, Dyspnea on exertion Gastrointestinal: Denies: Abdominal pain, Nausea, Vomiting, Diarrhea, Melena, Hematochezia Genitourinary: Denies: Dysuria, Hematuria, Frequency Musculoskeletal: Reports: Extremity Pain. Denies: Back pain Skin: Denies: Rash, Wounds Neurological: Denies: Headache, Weakness, Numbness Physical Exam Vital Signs/Narrative: Vital Signs Temp Pulse Resp BP Pulse Ox 04/29/20 06:06 97.4 F L 120 H 22 H 128/63 H 92 Inital Vital Signs reviewed: Yes General: Well nourished, Well developed, No Acute Distress Head: Normocephalic, Atraumatic Eyes: Perrl, EOMI ENT: Moist mucous membranes, No rhinorrhea Neck: Supple, Nontender Cardiovascular: Regular rate, No murmurs, Tachycardia Respiratory: No distress, CTA bilaterally, Chest nontender Abdomen: Soft, Nontender, Nondistended, Normal bowel sounds Back: Nontender, Normal Inspection Extremities: No edema, - - Patient has painful range of motion no overlying erythema or bruising. Skin: Normal color, No rash Neurological: Alert, Oriented x3, Cranial nerves II-XII grossly intact, Normal Strength, Normal Sensation Psychological: Normal affect, Normal Mood Diagnostic/Tx/Re-eval Clinical Impression(s) from Imaging Studies Hip/Pelvis X-Ray 04/29/20 06:27 IMPRESSION: Left femoral neck fracture. Electronically Signed: mEile Mustafa MD at 7:11 EDT Tel , Service support , Laboratory Last Values WBC 11.0 K/mm3 (4.4-11.0) 04/29/20 05:50 RBC 3.30 M/mm3 (4.2-5.4) L 04/29/20 05:50 Hgb 9.6 g/dL (12.0-15.0) L 04/29/20 05:50 Hct 32.0 % (37-47) L 04/29/20 05:50 MCV 97.0 fL (81-99) 04/29/20 05:50 MCH 29.1 pg (27.0-32.0) 04/29/20 05:50 MCHC 30.0 g/dL (32-36) L 04/29/20 05:50 RDW Std Deviation 58.4 fl (35.1-43.9) H 04/29/20 05:50 RDW Coeff of Leatha 16.2 % (11.6-14.6) H 04/29/20 05:50 Plt Count 302 K/mm3 (150-450) 04/29/20 05:50 MPV 11.7 fl (6.2-12.0) 04/29/20 05:50 Immature Gran % (Auto) 1.100 % (0.0-0.9) H 04/29/20 05:50 Neut % (Auto) 63.8 % (47-70) 04/29/20 05:50 Lymph % (Auto) 17.2 % (19-41) L 04/29/20 05:50 [place] % (Auto) 14.8 % (0-10) H 04/29/20 05:50 Eos % (Auto) 2.2 % (0-5) 04/29/20 05:50 Baso % (Auto) 0.9 % (0-1) 04/29/20 05:50 Absolute Neuts (auto) 7.0 X10^3/uL (2.0-7.7) 04/29/20 05:50 Absolute Lymphs (auto) 1.89 X10^3/uL (0.83-4.51) 04/29/20 05:50 Nucleated RBC % 0.2 % (0-5) 04/29/20 05:50 Sodium 135 mmol/L (136-145) L 04/29/20 05:50 Potassium 4.3 mmol/L (3.5-5.1) 04/29/20 05:50 Chloride 100 mmol/L (98-107) 04/29/20 05:50 Carbon Dioxide 25.0 mmol/L (21.0-32.0) 04/29/20 05:50 Anion Gap 10 (5-15) 04/29/20 05:50 BUN 62 mg/dL (7-18) H 04/29/20 05:50 Creatinine 2.78 mg/dL (0.55-1.02) H 04/29/20 05:50 Estim Creat Clear Calc 11.01 ml/min 04/29/20 05:50 Est GFR (MDRD) Af Amer 21 mL/min (>60) L 04/29/20 05:50 Est GFR (MDRD) Non-Af 17 mL/min (>60) L 04/29/20 05:50 BUN/Creatinine Ratio 22.3 RATIO (10-20) H 04/29/20 05:50 Glucose 96 mg/dL (74-106) 04/29/20 05:50 Calcium 9.5 mg/dL (8.5-10.1) 04/29/20 05:50 Total Bilirubin 0.60 mg/dL (0.20-1.00) 04/29/20 05:50 AST 29 U/L (15-37) 04/29/20 05:50 ALT 19 U/L (13-56) 04/29/20 05:50 Alkaline Phosphatase 123 U/L (45-117) H 04/29/20 05:50 Total Protein 8.5 g/dL (6.4-8.2) H 04/29/20 05:50 Albumin 3.1 g/dL (3.2-5.0) L 04/29/20 05:50 Globulin 5.4 g/dL (2.2-4.2) H 04/29/20 05:50 Albumin/Globulin Ratio 0.6 RATIO (0.9-2.4) L 04/29/20 05:50 - Medical Decision Making X-rays reveal a left femoral neck fracture. Patient received morphine for pain and is feeling significantly better. I discussed the case with Dr. Mejia who the patient saw 10 years ago for bilateral knee replacements. His recommendation is that due to her heart history the patient be transferred to tertiary care. The patient strongly requested that she not be transferred and asked me to speak with Dr. Klein whom her friend had saw. Dr. Rogers is covering and the case was discussed with him. Hospitalist will be contacted. ED Disposition - Plan for ED Patient: Diagnosis: Fracture of femoral neck, left, closed Referrals: Matteo West III, MD [Primary Care Provider] -
[2020-04-29] MEDS: Morphine 4 MG/ML Syringe IV (06:34)
[2020-04-29 06:35] LABS: Absolute Lymphocyte Count 1.89 X10^3/uL (0.83-4.51); Basophil% 0.9 % (0-1); Eosinophil# 0.24 X10^3/uL; Eosinophils% 2.2 % (0-5); Hemoglobin 9.6 g/dL (12.0-15.0); Lymphocyte # 1.89 X10^3/ul (4.0); Lymphocyte % 17.2 % (19-41); Mean Corpuscular Hgb 29.1 pg (27.0-32.0); Mean Platelet Vol. 11.7 fl (6.2-12.0); Monocyte# 1.62 X10^3/uL; Monocyte% 14.8 % (0-10); NRBC Flagged by Analyzer 0.2 % (0-5); Neutrophil # 7.01 X10^3/uL (2.7-7.7); Neutrophil % 63.8 % (47-70); POSITIVE DIFFERENTIAL YES; Platelet Count 302 K/mm3 (150-450); RBC Distribution Width CV 16.2 % (11.6-14.6); RBC Distribution Width SD 58.4 fl (35.1-43.9)
[2020-04-29 06:39] LABS: Differential Indicated SCAN CRITERIA MET
[2020-04-29 06:50] LABS: ALB/GLOB Ratio 0.6 RATIO (0.9-2.4); AST(SGOT) 29 U/L (15-37); Alanine Aminotransfer ALT/SGPT 19 U/L (13-56); Albumin, Serum 3.1 g/dL (3.2-5.0); Alkaline Phosphatase 123 U/L (45-117); Anion Gap 10 (5-15); BUN 62 mg/dL (7-18); BUN/Creat Ratio 22.3 RATIO (10-20); Calcium,Total 9.5 mg/dL (8.5-10.1); Chloride 100 mmol/L (98-107); Creatinine, Serum 2.78 mg/dL (0.55-1.02); EST Glomerular Filtration Rate 17 mL/min (>60); Est Glom Filt Rate - Afr Amer 21 mL/min (>60); Estimated Creatinine Clearance 11.01 ml/min; Globulin 5.4 g/dL (2.2-4.2); Glucose 96 mg/dL (74-106); Potassium 4.3 mmol/L (3.5-5.1); Protein, Total 8.5 g/dL (6.4-8.2); Sodium Level 135 mmol/L (136-145)
--- NOTE | 2020-04-29 06:52 | RAD_ITS ---
STUDY: X-RAY CHEST REASON FOR EXAM: Female, 85 years old. preoperative TECHNIQUE: Single AP portable view of the chest. COMPARISON: 03/25/2020. FINDINGS: Median sternotomy. CABG. Cardiomegaly with congestion. Aorta unremarkable. Bilateral hazy airspace opacities. No pleural effusions. Underlying interstitial disease. Upper abdomen unremarkable. Osseous structures intact with degenerative change. No pneumothorax. RAD/Chest 1 View (Portable) IMPRESSION: Bilateral hazy airspace opacities (edema/congestion) Cardiomegaly with congestion Underlying interstitial disease Electronically Signed: Heriberto Mcnair DO at 8:29 EDT Tel , Service support ,
[2020-04-29 08:03] LABS: International Normalized Ratio 1.6
[2020-04-29 08:04] LABS: Partial Thromboplast Time 37.4 Seconds (24.1-36.2)
[2020-04-29] MEDS: Morphine 2 MG/ML Syringe IV ×2 (08:07→10:13)
--- NOTE | 2020-04-29 08:55 | HP.PCM_ITS ---
Problem List (1) Acute kidney injury superimposed on CKD Status: Acute (2) Fracture of femoral neck, left, closed Status: Acute (3) Essential hypertension Status: Chronic (4) History of coronary artery stent placement Status: Chronic Comment: PCI-KHOI-LAD 2014 (5) Chronic combined systolic and diastolic CHF (congestive heart failure) Status: Chronic (6) Paroxysmal atrial fibrillation Status: Chronic (7) Takotsubo cardiomyopathy Status: Chronic (8) H/O coronary artery bypass surgery Status: Chronic Comment: CABG x 2 VALERIO-LAD, 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/2015 (9) Atherosclerosis of coronary artery of [place] heart without angina pectoris Status: Chronic Qualifiers: Comment: CABG x 2 VALERIO-LAD, 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/2015 (10) History of aortic valve replacement with bioprosthetic valve Status: Chronic History of Present Illness Date of Admission: 04/29/20 Chief Complaint: Left hip pain. The patient is a 85 year old F with multiple medical comorbidities as mentioned above presented to the emergency room because of left hip pain. Patient states that she had mechanical fall around [place] of 2019 and since then, she has been having intermittent left hip pain. She states that over the last 3 weeks, her left pain has been constant, sharp pain, was around 5 out of 10 in severity, went up to 10 out of 10 in severity over the last week, aggravated by standing and walking, minimal relief with rest and no associated symptoms. She was seen by her PCP as outpatient last week, had an x-ray done and she was informed that she has no fractures and she was started on Percocet for pain control. She stated that last night, her pain was so bad and she could not even stand or walk. She denied direct trauma to the left hip recently apart from that fall back in January,. In the emergency department, she was afebrile, tachycardic, blood pressure stable, pulse ox is 92% on 2 L. Routine blood work was remarkable for hemoglobin of 9.6 g/dL, BUN 62, creatinine is 2.78. LFT was unremarkable. Chest x-ray revealed diffuse bilateral airspace disease consistent with recent COVID-19 pneumonia. X-ray of the left hip and pelvis revealed left femoral neck fracture. EKG revealed A. fib, heart rate has been around 107, no acute ischemic changes. She is being admitted for acute/subacute traumatic left femoral neck fracture and acute kidney injury on top of stage III chronic kidney disease. Past Medical History Past Medical History (Chronic Problems): Chronic Problems (Last Updated 04/29/20 @ 08:[address] 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 Addison Cooper MD) Essential hypertension (Chronic) I10 Chronic combined systolic and diastolic CHF (congestive heart failure) (Chronic) I50.42 Nonrheumatic pulmonary valve insufficiency (Chronic) I37.1 Nonrheumatic aortic valve insufficiency (Chronic) I35.1 Nonrheumatic mitral (valve) insufficiency (Chronic) I34.0 Secondary pulmonary arterial hypertension (Chronic) I27.21 Paroxysmal atrial fibrillation (Chronic) I48.0 Takotsubo cardiomyopathy (Chronic) I51.81 Atherosclerosis of coronary artery of [place] heart without angina pectoris (Chronic) I25.10 CABG x 2 VALERIO-LAD, 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/2015 COVID-19 virus detected (Inactive) Onset Date: 02/29/20 U07.1 Acquired hypothyroidism E03.9 Anemia D64.9 Anxiety and depression F41.9, F32.9 Chronic kidney disease, stage 3 N18.3 Esophagitis K20.9 Insomnia G47.00 Obesity (BMI 30-39.9) E66.9 PUD (peptic ulcer disease) K27.9 Acute kidney injury N17.9 Allergies atorvastatin [From Lipitor] Adverse Reaction (Verified 04/29/20 06:10) Pain in joints niacin Adverse Reaction (Verified 04/29/20 06:10) Pain in joints pregabalin [From Lyrica] Adverse Reaction (Verified 04/29/20 06:10) leg pain simvastatin [From Zocor] Adverse Reaction (Verified 04/29/20 06:10) Pain in joints Home Medications: Ambulatory Orders Medication Instructions Recorded Nitroglycerin (INPATIENT USE) 0.4 mg SUBLINGUAL Q5M PRN 02/24/16 [Nitrostat] levothyroxine 125 mcg tablet 125 mcg PO DAILY #30 tab 11/14/18 metoprolol tartrate 25 mg tablet 12.5 mg PO BID tab 12/31/19 amlodipine 2.5 mg tablet 2.5 mg PO DAILY tab 03/05/20 Clopidogrel Bisulfate [Clopidogrel] 75 mg PO DINNER 03/13/20 Furosemide 40 mg PO BID 03/13/20 Lisinopril [Prinivil] 10 mg PO DAILY 03/13/20 Omeprazole 20 mg PO DAILY 03/13/20 Apixaban [Eliquis] 5 mg PO BID 03/25/20 Lactobacillus Acidophilus 1 tab PO BID #10 tab 04/01/20 [Acidophilus] Loperamide [Imodium] 2 mg PO Q2H PRN PRN cap 04/01/20 amiodarone 200 mg tablet 100 mg PO DAILY #45 tab 04/11/20 Oxycodone HCl 5 mg PO Q6H PRN PRN 04/29/20 Surgical History: Surgical History (Last Updated 04/29/20 @ 08:[address] 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 Lives: Spouse/ Significant Other Smoking Status: Never smoker Alcohol: None Drugs: None - *Family History Maternal Family History: Family History (Last Reviewed 03/05/20 @ 10:00 by Montserrat Villa PA, PA) Mother Diabetes Heart disease Other CAD (coronary artery disease) History Items: Diabetes, Heart Disease Review of Systems Constitutional: Denies: Anorexia, Chills, Fever, Weakness Eyes: Denies: Blurred vision, Double vision, Drainage, Redness HEENT: Denies: Difficulty Hearing, Dysphasia, Ear Pain, Eye Pain, Nasal Congestion, Sore Throat Cardiovascular: Denies: Chest Pain, Chest Pressure, Edema, Heaviness, Light Headedness, Palpitations, Syncope Respiratory: Denies: Cough, Pleuritic Pain, Shortness of Breath, Sputum production, Wheezing Gastrointestinal: Denies: Abdominal Pain, Constipation, Diarrhea, Nausea, Vomiting Genitourinary: Denies: Dysuria, Frequency, Hematuria Musculoskeletal: Reports: Joint Pain. Denies: Arm Pain, Back Pain Skin: Denies: Dryness, Rash Neurological: Denies: Balance problems, Double vision, Slurred speech, Confusion, Headaches, Incoordination, Numbness Psychiatric: Denies: Anxiety, Depression Endocrine: Denies: Change in Body Habitus, Polydipsia, Polyuria VTE Information - Inpt Only VTE Present on Admission: No VTE Mechan Device Prophylaxis: SCD's VTE Pharm Prophylaxis ordered?: No Patient Problems: Active and Suspected Problems (Last Updated 04/29/20 @ 08:[address] Addison Cooper MD) Acute kidney injury superimposed on CKD (Acute) Fracture of femoral neck, left, closed (Acute) - Physical Exam Vitals/I&O's: Vital Signs Temp Pulse Resp BP Pulse Ox 97.6 F L 103 H 16 110/47 L 96 04/29/20 07:55 04/29/20 07:55 04/29/20 07:55 04/29/20 07:55 04/29/20 07:55 Oxygen Flow Rate (L/min) 2 Oxygen Delivery Method Room Air Weight: 180 lb Body Mass Index (BMI) 35.2 General: Alert, Oriented x3, Cooperative, No apparent distress HEENT: Atraumatic, PERRLA, EOMI, Normocephalic Oral: Moist Mucosa, No Gingival or Mucosal Lesions/ Ulcerations Neck: Supple, No JVD, Negative Carotid Bruits, Trachea Midline, Thyroid Normal Size and Texture Lungs: Clear to auscultation, No rhonchi, No wheeze, No rales, Diminished, - - Decreased breath sounds bilateral. Cardiovascular: Normal S1, Normal S2, PMI Normal, Irregular Rate, Tachycardic Abdomen: Bowel Sounds Present, Soft, Non Tender, Non-Distended, No Hepato- splenomegaly Extremities: No clubbing, No cyanosis, Edema - Trace edema. Skin: No rashes, No breakdown Lymphatic: No Cervical, Supraclavicular, or Inguinal Adenopathy Neurological: Cranial nerves II-XII grossly intact, Motor Exam 5/5 strength throughout Psych/Mental Status: Normal Affect, Appropriate, Alert and oriented to time, place, person, mood and affect Laboratory Results 04/29/20 05:50: WBC 11.0, RBC 3.30 L, Hgb 9.6 L, Hct 32.0 L, MCV 97.0, MCH 29.1, MCHC 30.0 L, RDW Std Deviation 58.4 H, RDW Coeff of [place] 16.2 H, Plt Count 302, MPV 11.7, Immature Gran % (Auto) 1.100 H, Neut % (Auto) 63.8, Lymph % (Auto) 17.2 L, [place] % (Auto) 14.8 H, Eos % (Auto) 2.2, Baso % (Auto) 0.9, Absolute Neuts (auto) 7.0, Absolute Lymphs (auto) 1.89, Nucleated RBC % 0.2 04/29/20 05:50: Sodium 135 L, Potassium 4.3, Chloride 100, Carbon Dioxide 25.0, Anion Gap 10, BUN 62 H, Creatinine 2.78 H, Estim Creat Clear Calc 11.01, Est GFR (MDRD) Af Amer 21 L, Est GFR (MDRD) Non-Af 17 L, BUN/Creatinine Ratio 22.3 H, Glucose 96, Calcium 9.5, Total Bilirubin 0.60, AST 29, ALT 19, Alkaline Phosphatase 123 H, Total Protein 8.5 H, Albumin 3.1 L, Globulin 5.4 H, Albumin/Globulin Ratio 0.6 L 04/29/20 05:50: PT 18.0 H, INR 1.6, APTT 37.4 H 04/29/20 07:28: Blood Type O POSITIVE, Antibody Screen NEGATIVE Clinical Impression(s) from Imaging Studies Hip/Pelvis X-Ray 04/29/20 06:27 IMPRESSION: Left femoral neck fracture. Electronically Signed: Emile Mustafa MD at 7:11 EDT Tel , Service support , Chest X-Ray 04/29/20 06:52 IMPRESSION: Bilateral hazy airspace opacities (edema/congestion) Cardiomegaly with congestion Underlying interstitial disease Electronically Signed: Heriberto Mcnair DO at 8:29 EDT Tel , Service support , Assessment/Plan All Active Problems (Last Updated 04/29/20 @ 08:[address] Addison Cooper MD) Acute kidney injury superimposed on CKD (Acute) Fracture of femoral neck, left, closed (Acute) This is an 85 years old female patient presented to the emergency room because of left hip pain that has been going on for 3 months, got worse over the last 3 weeks, had mechanical fall around [place] 2019 and she was found to have acute/subacute left femoral neck fracture and EL on CKD. #1 acute/subacute traumatic left femoral neck fracture: X-ray of the pelvis and left hip reviewed. No evidence of significant trauma. Plan: Admit to [facility] floor, telemetry monitoring, complete bedrest, insert Hudson catheter, gentle IV fluids for hydration, Tylenol as needed, IV morphine as needed for pain, OxyIR as needed, laxative as needed, orthopedic surgery consult, repeat CBC and BMP tomorrow morning, PT OT evaluation and treatment when appropriate. #2 acute kidney injury on top of stage III chronic kidney disease: Baseline creatinine has been around 1.4 to 1.7 mg/dL. Admission creatinine is 2.78. Plan: Gentle IV fluids for hydration, hold nephrotoxic drugs, input output chart, repeat BMP tomorrow morning. #3 preoperative evaluation: 84 years old female with multiple medical comorbidities including CAD with CABG and stents, CHF, aortic valve replacement, CKD and atrial fibrillation in addition to recent COVID-19 pneumonia and respiratory failure and she has been on oxygen. EKG revealed A. fib, no acute ischemic changes. Chest x-ray revealed diffuse bilateral airspace disease consistent with recent COVID-19 pneumonia. Patient has been on on oxygen at 2 L since February,. Patient took her last dose of Eliquis yesterday morning. Based on her age, past medical history, kidney function and functional status, her estimated risk for perioperative myocardial infarction or cardiac arrest is 3%. Based on ACS NSQIP surgical risk calculator, her risk for serious complications is above average, predicted length of hospital stay is 5.5 days. Plan: 2D echocardiogram, pulmonology consult. #4 status post recent COVID-19 pneumonia/respiratory failure: Patient was admitted on February 2020 for COVID-19 completed treatment with IV remdesivir and p.o. Decadron, was readmitted again after worsening symptoms on March, and discharged on home oxygen at 2 L and she has been on 2 L since then. Chest x-ray reviewed as above. Plan: Pulmonology consult, DuoNeb every 6 hours. #5 CAD status post CABG and stents: EKG reviewed, no acute changes. Continue metoprolol, hold Eliquis, lisinopril and Plavix for surgery. #6 status post aortic valve replacement with bioprosthetic valve: We will do 2D echocardiogram. #7 hypertension: Blood pressure stable, continue Norvasc and metoprolol. Hold lisinopril #8 paroxysmal atrial fibrillation: Currently, rate has been around 100, continue amiodarone and metoprolol for rate control, hold Eliquis for now. #9 chronic combined systolic congestive CHF/Takotsubo cardiomyopathy: Currently stable, compensated. Plan for gentle IV fluids for hydration, continue metoprolol, hold lisinopril and Lasix for EL. #10 CODE STATUS: Full code. Discussed with the patient and her . I explained to the patient different types of CODE STATUS including full code, DNR CC, DNR CCA with and without intubation. Patient stated that she would be okay with resuscitation, intubation and mechanical ventilation if it would be for short time and she agreed to have her or her son decide to withdraw care if her prognosis is poor. #11 DVT prophylaxis: SCDs, INR is 1.6. This note was generated with Chirp[employer]ation software. It may contain incorrect words, spelling, and punctuation that were not noted in checking the note before signing. Inpatient E&M: 87635 Init Hosp L3
[2020-04-29] MEDS: 0.9% Normal Saline 1,000 ML 60 ML IV (09:30)
--- NOTE | 2020-04-29 09:43 | ECHOCS_ITS ---
Reason For Study: Pre Op Procedure This was a 2D Doppler, Color Flow transthoracic echocardiogram. The study was technically difficult. Patient scanned supine due to left hip fracture. Contrast injection performed. Exam performed portable in patient room. Left Ventricle Post operative septal motion. The estimated ejection fraction is EF 40-45% %. Right Ventricle Normal systolic function. Atria The left atrium is mildly enlarged. Mitral Valve There is moderate mitral annular calcification. Mild (1+) mitral valve insufficiency. Tricuspid Valve Moderate (2+) tricuspid valve insufficiency. Aortic Valve Trivial aortic valve insufficiency. Pulmonic Valve The pulmonic valve is not well visualized. Great Vessels Normal aortic root. Normal inferior vena cava. Pericardium/Pleural No pericardial effusion. Medication Diluted definity 5ml given slow IV push to enhance endocardial definition. MMode/2D Measurements & Calculations LVIDd: 4.5 cm IVSd: 1.1 cm LVOT diam: 2.0 cm LVIDs: 2.7 cm LVPWd: 1.2 cm RVDd: 4.6 cm FS: 39.0 % LVOT area: 3.2 cm2 LA dimension: 4.5 cm LAV(MOD-bp): 55.4 ml LA A4 area: 21.9 cm2 LAV(MOD-bp) Indexed: 31.0 ml/m2 LAV(MOD-sp2): 46.3 ml LAV(MOD-sp4): 62.2 ml RA A4 area: 22.5 cm2 Time Measurements MV dec time: 0.22 sec Doppler Measurements & Calculations MV E max tavo: 146.1 cm/sec Ao V2 max: 148.0 cm/sec LV V1 max: 93.5 cm/sec MV A max tavo: 70.9 cm/sec Ao max P.8 mmHg LV V1 max P.5 mmHg MV E/A: 2.1 Ao V2 mean: 96.4 cm/sec LV V1 mean P.8 mmHg Ao mean P.3 mmHg LV V1 mean: 61.3 cm/sec Ao V2 VTI: 22.8 cm LV V1 VTI: 15.7 cm CATHERINE(I,D): 2.2 cm2 CATHERINE(V,D): 2.0 cm2 SV(LVOT): 50.7 ml PA V2 max: 133.3 cm/sec TR max tavo: 331.9 cm/sec TR max P.1 mmHg Interpretation Summary Mild -moderate LV systolic Dysfunction The estimated ejection fraction is EF 40-45% %. Normal AV bioprothesis with Trivial Artic Regurgitation Mild MR moderate TR Ordering Physician: Addison Cooper Performed By: Marcial Cui RCS
[2020-04-29] MEDS: 0.9% Saline Lock 10 ML Syringe IV ×3 (10:13→17:05)
[2020-04-29] MEDS: Amiodarone 200 MG Tablet 100 MG PO (10:34)
[2020-04-29] MEDS: Metoprolol Tartrate 25 MG Tablet 12.5 MG PO ×2 (10:34→13:59)
[2020-04-29] MEDS: amLODIPine 2.5 MG Tablet PO (10:35)
[2020-04-29] MEDS: Pantoprazole Sodium 20 MG Tablet PO (10:35)
--- NOTE | 2020-04-29 12:33 | CON.PCM_ITS ---
Reason for Consult Date of Consultation: 04/29/20 History of Present Illness: The patient is a 85 year old F h/o fall past january has continued to ambulate, developed severe left groin pain recently starting last 3 weeks has continued to ambulate when pain became so severe that she had to be evaluated. she states she did have x-ray after initial fall which did not show fracture. she denies other new pains. she does have fibromyalgia with chronic pain. Past Medical History Past Medical History (Chronic Problems): Chronic Problems (Last Updated 04/29/20 @ 08:[address] 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) Nonrheumatic aortic valve insufficiency (Chronic) Nonrheumatic mitral (valve) insufficiency (Chronic) Secondary pulmonary arterial hypertension (Chronic) Paroxysmal atrial fibrillation (Chronic) Takotsubo cardiomyopathy (Chronic) H/O coronary artery bypass surgery (Chronic 01/2016) CABG x 2 VALERIO-LAD, 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/2015 Atherosclerosis of coronary artery of [place] heart without angina pectoris (Chronic) CABG x 2 VALERIO-LAD, 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/2015 History of aortic valve replacement with bioprosthetic valve (Chronic 01/2016) Medical History: Medical History (Last Updated 04/29/20 @ 08:[address] Addison Cooper MD) Essential hypertension (Chronic) I10 Chronic combined systolic and diastolic CHF (congestive heart failure) (Chronic) I50.42 Nonrheumatic pulmonary valve insufficiency (Chronic) I37.1 Nonrheumatic aortic valve insufficiency (Chronic) I35.1 Nonrheumatic mitral (valve) insufficiency (Chronic) I34.0 Secondary pulmonary arterial hypertension (Chronic) I27.21 Paroxysmal atrial fibrillation (Chronic) I48.0 Takotsubo cardiomyopathy (Chronic) I51.81 Atherosclerosis of coronary artery of [place] heart without angina pectoris (Chronic) I25.10 CABG x 2 VALERIO-LAD, 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/2015 COVID-19 virus detected (Inactive) Onset Date: 02/29/20 U07.1 Acquired hypothyroidism E03.9 Anemia D64.9 Anxiety and depression F41.9, F32.9 Chronic kidney disease, stage 3 N18.3 Esophagitis K20.9 Insomnia G47.00 Obesity (BMI 30-39.9) E66.9 PUD (peptic ulcer disease) K27.9 Acute kidney injury N17.9 Allergies atorvastatin [From Lipitor] Adverse Reaction (Verified 04/29/20 06:10) Pain in joints niacin Adverse Reaction (Verified 04/29/20 06:10) Pain in joints pregabalin [From Lyrica] Adverse Reaction (Verified 04/29/20 06:10) leg pain simvastatin [From Zocor] Adverse Reaction (Verified 04/29/20 06:10) Pain in joints Home Medications: Ambulatory Orders Medication Instructions Recorded Nitroglycerin (INPATIENT USE) 0.4 mg SUBLINGUAL Q5M PRN 02/24/16 [Nitrostat] levothyroxine 125 mcg tablet 125 mcg PO DAILY #30 tab 11/14/18 metoprolol tartrate 25 mg tablet 12.5 mg PO BID tab 12/31/19 amlodipine 2.5 mg tablet 2.5 mg PO DAILY tab 03/05/20 Clopidogrel Bisulfate [Clopidogrel] 75 mg PO DINNER 03/13/20 Furosemide 40 mg PO BID 03/13/20 Lisinopril [Prinivil] 10 mg PO DAILY 03/13/20 Omeprazole 20 mg PO DAILY 03/13/20 Apixaban [Eliquis] 5 mg PO BID 03/25/20 Lactobacillus Acidophilus 1 tab PO BID #10 tab 04/01/20 [Acidophilus] Loperamide [Imodium] 2 mg PO Q2H PRN PRN cap 04/01/20 amiodarone 200 mg tablet 100 mg PO DAILY #45 tab 04/11/20 Oxycodone HCl 5 mg PO Q6H PRN PRN 04/29/20 Surgical History: Surgical History (Last Updated 04/29/20 @ 08:[address] 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 Addison Cooper MD) Acute kidney injury superimposed on CKD (Acute) Fracture of femoral neck, left, closed (Acute) - Physical Exam Vitals/I&O's: Vital Signs Temp Pulse Resp BP Pulse Ox 97.9 F 114 H 20 H 138/64 H 90 04/29/20 08:45 04/29/20 10:34 04/29/20 08:45 04/29/20 10:34 04/29/20 08:45 Oxygen Flow Rate (L/min) 2 Oxygen Delivery Method Nasal Cannula Weight: 180 lb Body Mass Index (BMI) 35.2 General: Alert, Oriented x3, Cooperative, - - seen with at bedside. pain not well controlled currently Extremities: - - no open wound, compartments soft. no joint effusion of knee. palpable pedal pulses. Laboratory Results 04/29/20 05:50: WBC 11.0, RBC 3.30 L, Hgb 9.6 L, Hct 32.0 L, MCV 97.0, MCH 29.1, MCHC 30.0 L, RDW Std Deviation 58.4 H, RDW Coeff of [place] 16.2 H, Plt Count 302, MPV 11.7, Immature Gran % (Auto) 1.100 H, Neut % (Auto) 63.8, Lymph % (Auto) 17.2 L, [place] % (Auto) 14.8 H, Eos % (Auto) 2.2, Baso % (Auto) 0.9, Absolute Neuts (auto) 7.0, Absolute Lymphs (auto) 1.89, Nucleated RBC % 0.2 03/16/21 05:50: Sodium 135 L, Potassium 4.3, Chloride 100, Carbon Dioxide 25.0, Anion Gap 10, BUN 62 H, Creatinine 2.78 H, Estim Creat Clear Calc 11.01, Est GFR (MDRD) Af Amer 21 L, Est GFR (MDRD) Non-Af 17 L, BUN/Creatinine Ratio 22.3 H, Glucose 96, Calcium 9.5, Total Bilirubin 0.60, AST 29, ALT 19, Alkaline Phosphatase 123 H, Total Protein 8.5 H, Albumin 3.1 L, Globulin 5.4 H, Albumin/Globulin Ratio 0.6 L 04/29/20 05:50: PT 18.0 H, INR 1.6, APTT 37.4 H 04/29/20 07:28: Blood Type O POSITIVE, Antibody Screen NEGATIVE Current Medications Acetaminophen (Acetaminophen 325 Mg Tablet) 650 mg PO Q6H PRN PRN PRN Reason: Pain Score 1-10/Temp > 100.7 F Albuterol/Ipratropium (Ipratropium/Albuterol Sulfate 3 Ml Ampul.Neb) 3 ml INHALATION Q6H.RT SUSAN Amiodarone HCl (Amiodarone 200 Mg Tablet) 100 mg PO DAILY [facility] Last Admin: 04/29/20 10:34 Dose: 100 mg Documented by: Amlodipine Besylate (Amlodipine 2.5 Mg Tablet) 2.5 mg PO DAILY [facility] Last Admin: 04/29/20 10:35 Dose: 2.5 mg Documented by: Hydromorphone HCl (Hydromorphone 0.5 Mg/0.5 Ml Syringe) 0.5 mg IV Q2H PRN PRN PRN Reason: Pain Score 6-10 Sodium Chloride () 1,000 mls @ 60 mls/hr IV .[id number] [facility] Last Admin: 04/29/20 09:30 Dose: 60 mls/hr Documented by: Levothyroxine Sodium (Levothyroxine 125 Mcg Tablet) 125 mcg PO DAILY@0600 [facility] Magnesium Hydroxide (Magnesium Hydroxide 30 Ml Udc) 30 ml PO DAILY PRN PRN PRN Reason: Constipation Metoprolol Tartrate (Metoprolol Tartrate 25 Mg Tablet) 12.5 mg PO BID [facility] Last Admin: 04/29/20 10:34 Dose: 12.5 mg Documented by: Ondansetron HCl (Ondansetron 4 Mg/2 Ml Vial) 4 mg IV Q8H PRN PRN PRN Reason: NAUSEA/VOMITING Oxycodone HCl (Oxycodone 5 Mg Tablet) 10 mg PO Q4H PRN PRN PRN Reason: Pain Score 6-10 Oxycodone HCl (Oxycodone 5 Mg Tablet) 5 mg PO Q4H PRN PRN PRN Reason: Pain Score 4-5 Pantoprazole Sodium (Pantoprazole Sodium 20 Mg Tablet) 20 mg PO DAILY [facility] Last Admin: 04/29/20 10:35 Dose: 20 mg Documented by: Senna/Docusate Sodium (Senna/Docusate Sodium 1 Tablet) 2 tablet PO BID PRN PRN PRN Reason: Constipation Sodium Chloride (0.9% Saline Lock 10 Ml Syringe) 10 - 40 ml IV UD PRN PRN Reason: SALINE FLUSH Last Admin: 04/29/20 10:13 Dose: 10 ml Documented by: Zolpidem Tartrate (Zolpidem Tartrate 5 Mg Tablet) 5 mg PO QHS PRN PRN PRN Reason: INSOMNIA Assessment/Plan All Active Problems (Last Updated 04/29/20 @ 08:[address] Addison Cooper MD) Acute kidney injury superimposed on CKD (Acute) Fracture of femoral neck, left, closed (Acute) Subacute placed left basicervical femoral neck fracture with acute onset of pain past 3 weeks worsening. On Eliquis dose in p.m. 04/28/2020 SCDs BECCA mabry hold anticoagulant coagulation for hand surgery 05/01/2020 left trochanteric femoral nail Pending medical and cardiology clearance.
[2020-04-29] MEDS: oxyCODONE 5 MG Tablet 10 MG PO (12:44)
[2020-04-29] MEDS: Ipratropium/Albuterol Sulfate 3 ML AMPUL.NEB INHALATION ×2 (13:45→19:15)
--- NOTE | 2020-04-29 13:50 | CON.PCM_ITS ---
Reason for Consult Date of Consultation: 04/29/20 History of Present Illness: The patient is a 85 year old F [] Past Medical History Allergies/Adverse Reactions: Allergies atorvastatin [From Lipitor] Adverse Reaction (Verified 04/29/20 06:10) Pain in joints niacin Adverse Reaction (Verified 04/29/20 06:10) Pain in joints pregabalin [From Lyrica] Adverse Reaction (Verified 04/29/20 06:10) leg pain simvastatin [From Zocor] Adverse Reaction (Verified 04/29/20 06:10) Pain in joints Home Medications: Ambulatory Orders Medication Instructions Recorded Nitroglycerin (INPATIENT USE) 0.4 mg SUBLINGUAL Q5M PRN 02/24/16 [Nitrostat] levothyroxine 125 mcg tablet 125 mcg PO DAILY #30 tab 11/14/18 metoprolol tartrate 25 mg tablet 12.5 mg PO BID tab 12/31/19 amlodipine 2.5 mg tablet 2.5 mg PO DAILY tab 03/05/20 Clopidogrel Bisulfate [Clopidogrel] 75 mg PO DINNER 03/13/20 Furosemide 40 mg PO BID 03/13/20 Lisinopril [Prinivil] 10 mg PO DAILY 03/13/20 Omeprazole 20 mg PO DAILY 03/13/20 Apixaban [Eliquis] 5 mg PO BID 03/25/20 Lactobacillus Acidophilus 1 tab PO BID #10 tab 04/01/20 [Acidophilus] Loperamide [Imodium] 2 mg PO Q2H PRN PRN cap 04/01/20 amiodarone 200 mg tablet 100 mg PO DAILY #45 tab 04/11/20 Oxycodone HCl 5 mg PO Q6H PRN PRN 04/29/20 Past Medical History (Chronic Problems): Chronic Problems (Last Updated 04/29/20 @ 08:[address] 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) Nonrheumatic aortic valve insufficiency (Chronic) Nonrheumatic mitral (valve) insufficiency (Chronic) Secondary pulmonary arterial hypertension (Chronic) Paroxysmal atrial fibrillation (Chronic) Takotsubo cardiomyopathy (Chronic) H/O coronary artery bypass surgery (Chronic 01/2016) CABG x 2 VALERIO-LAD, 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/2015 Atherosclerosis of coronary artery of [place] heart without angina pectoris (Chronic) CABG x 2 VALERIO-LAD, 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/2015 History of aortic valve replacement with bioprosthetic valve (Chronic 01/2016) Surgical History: coronary bypass surgery Psychiatric History: No pertinent psych hx 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 pertinent E/M ENGINEER history - *Family History Maternal Family History: Family History (Last Reviewed 03/05/20 @ 10:00 by Montserrat Villa PA, PA) Mother Diabetes Heart disease Other CAD (coronary artery disease) History Items: Diabetes, Heart Disease Lives: Spouse/ Significant Other Smoking Status: Never smoker Alcohol: None Drugs: None Objective: Vital Signs Temp Pulse Resp BP Pulse Ox 97.9 F 95 16 138/64 H 97 04/29/20 08:45 04/29/20 13:45 04/29/20 13:45 04/29/20 10:34 04/29/20 13:45 Oxygen Flow Rate (L/min) 2 Oxygen Delivery Method Nasal Cannula Weight: 180 lb Body Mass Index (BMI) 35.2 General: Awake, Alert, Oriented x 3 Lungs: Clear to auscultation Cardiovascular: Irregular Rhythm 04/29/20 05:50: WBC 11.0, RBC 3.30 L, Hgb 9.6 L, Hct 32.0 L, MCV 97.0, MCH 29.1, MCHC 30.0 L, Plt Count 302, MPV 11.7, Immature Gran % (Auto) 1.100 H, Neut % (Auto) 63.8, Lymph % (Auto) 17.2 L, [place] % (Auto) 14.8 H, Eos % (Auto) 2.2, Baso % (Auto) 0.9, Absolute Neuts (auto) 7.0, Nucleated RBC % 0.2 04/29/20 05:50: Sodium 135 L, Potassium 4.3, Chloride 100, Carbon Dioxide 25.0, Anion Gap 10, BUN 62 H, Creatinine 2.78 H, Est GFR (MDRD) Af Amer 21 L, Est GFR (MDRD) Non-Af 17 L, BUN/Creatinine Ratio 22.3 H, Glucose 96, Calcium 9.5, Total Bilirubin 0.60 04/29/20 05:50: PT 18.0 H, INR 1.6, APTT 37.4 H Rhythm: Atrial fibrillation with RVR EKG: Atrial fibrillation with rapid ventricular rate, poor R wave progression across the chest leads. 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 Had a history of CAD with a prior PCI of LAD, subsequently underwent aortocoronary bypass surgery Also had a history of Takotsubo syndrome with the chronic systolic and diastolic heart failure Paroxysmal atrial fibrillation was on anticoagulation, amiodarone and beta- marivel metoprolol Evidently she had a fall according to the patient sometime in October and noted she had fracture left hip Is scheduled to undergo left hip surgery on I reviewed all her current medication she does not have any symptoms of chest pain Cardiac exam essentially revealed underlying irregular rhythm no systolic or diastolic murmur noted. The electrocardiogram is abnormal with a poor R wave progression across the chest leads underlying atrial fibrillation with rapid ventricular rate Assessment and plan; 1. Increase the dose of beta-marivel metoprolol to 25 twice daily 2. Continue to hold anticoagulation Eliquis and to hold the Plavix. Okay for low-dose aspirin 3. Patient is cleared to undergo left hip surgery with intermediate risk for cardiopulmonary events. We will continue to monitor and follow-up clinically.
[2020-04-29] MEDS: HYDROmorphone 0.5 MG/0.5 ML SYRINGE IV ×2 (14:10→17:05)
[2020-04-29 14:50] LABS: Thyroid Stim Hormone (TSH) 3.93 uIU/mL (0.358-3.74)
--- NOTE | 2020-04-29 16:38 | CON.PCM_ITS ---
Problem List (1) Acute kidney injury superimposed on CKD Status: Acute (2) Fracture of femoral neck, left, closed Status: Acute Qualifiers: Encounter type: initial encounter Qualified Code(s): S72.002A - Fracture of unspecified part of neck of left femur, initial encounter for closed fracture (3) Essential hypertension Status: Chronic (4) Chronic combined systolic and diastolic CHF (congestive heart failure) Status: Chronic (5) Nonrheumatic pulmonary valve insufficiency Status: Chronic (6) Nonrheumatic aortic valve insufficiency Status: Chronic (7) Nonrheumatic mitral (valve) insufficiency Status: Chronic (8) Secondary pulmonary arterial hypertension Status: Chronic (9) Paroxysmal atrial fibrillation Status: Chronic (10) H/O coronary artery bypass surgery Status: Chronic Comment: CABG x 2 VALERIO-LAD, 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/2015 (11) Atherosclerosis of coronary artery of [place] heart without angina pectoris Status: Chronic Qualifiers: Comment: CABG x 2 VALERIO-LAD, 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/2015 (12) History of aortic valve replacement with bioprosthetic valve Status: Chronic Reason for Consult Date of Consultation: 04/29/20 Reason for Consultation: Pulmonary clearance History of Present Illness: The patient is an 85 year old F, with past medical history listed below, who presented to [facility] on 04/29/2020 secondary to left hip pain. Patient reportedly has had arthritis and has had previously and seen her PCP on Tuesday prior to admission. Patient was given Percocet however patient was unable to ambulate to the bathroom secondary to overwhelming hip pain. EMS was called and patient was given a dose of fentanyl with some response. Patient is denying any direct trauma to the hip, fever, chills or rashes. Patient reportedly has not had a hip replacement secondary to comorbidities and thought this was related to arthritis. Patient was recently hospitalized with COVID-19 and was on steroid therapy. Since that time, patient had been discharged on supplemental oxygen. In the emergency department, patient was tachycardic at 120 bpm. Patient was 92% on her baseline 2 L nasal cannula. No significant lower extremity edema was reported by ER staff. X-ray had shown a left femoral neck fracture. Laboratory work-up was relatively unremarkable except for an elevated creatinine of 2.78, BUN of 62 and slight anemia at 9.6. Orthopedics was consulted and patient was admitted to the floor for further evaluation. Patient reports she does not have a history of pulmonary pathology prior to her COVID-19 admission. Patient does have an extensive cardiac history but feels this has been well controlled recently. Patient reports she has been using 2 L nasal cannula at home and was performing therapy with minimal difficulty. Patient states she was to be discharged later this week. Patient denies any history of fractures previously, but had seen orthopedic surgery secondary to arthritic pain. Patient does take Eliquis and Plavix at baseline. Patient has been compliant with her Lasix therapy. Patient does not use any inhalers at baseline. Review of systems otherwise negative from a constitutional, HEENT, respiratory, cardiovascular, GI, genitourinary, musculoskeletal, skin, neurologic, psychiatric and hematologic system unless stated above. Past Medical History Past Medical History (Chronic Problems): Chronic Problems (Last Updated 04/29/20 @ 08:[address] 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) Nonrheumatic aortic valve insufficiency (Chronic) Nonrheumatic mitral (valve) insufficiency (Chronic) Secondary pulmonary arterial hypertension (Chronic) Paroxysmal atrial fibrillation (Chronic) Takotsubo cardiomyopathy (Chronic) H/O coronary artery bypass surgery (Chronic 01/2016) CABG x 2 VALERIO-LAD, 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/2015 Atherosclerosis of coronary artery of [place] heart without angina pectoris (Chronic) CABG x 2 VALERIO-LAD, 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/2015 History of aortic valve replacement with bioprosthetic valve (Chronic 01/2016) Medical History: Medical History (Last Updated 04/29/20 @ 08:[address] Addison Cooper MD) Essential hypertension (Chronic) I10 Chronic combined systolic and diastolic CHF (congestive heart failure) (Chronic) I50.42 Nonrheumatic pulmonary valve insufficiency (Chronic) I37.1 Nonrheumatic aortic valve insufficiency (Chronic) I35.1 Nonrheumatic mitral (valve) insufficiency (Chronic) I34.0 Secondary pulmonary arterial hypertension (Chronic) I27.21 Paroxysmal atrial fibrillation (Chronic) I48.0 Takotsubo cardiomyopathy (Chronic) I51.81 Atherosclerosis of coronary artery of [place] heart without angina pectoris (Chronic) I25.10 CABG x 2 VALERIO-LAD, 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/2015 COVID-19 virus detected (Inactive) Onset Date: 02/29/20 U07.1 Acquired hypothyroidism E03.9 Anemia D64.9 Anxiety and depression F41.9, F32.9 Chronic kidney disease, stage 3 N18.3 Esophagitis K20.9 Insomnia G47.00 Obesity (BMI 30-39.9) E66.9 PUD (peptic ulcer disease) K27.9 Acute kidney injury N17.9 Allergies atorvastatin [From Lipitor] Adverse Reaction (Verified 04/29/20 06:10) Pain in joints niacin Adverse Reaction (Verified 04/29/20 06:10) Pain in joints pregabalin [From Lyrica] Adverse Reaction (Verified 04/29/20 06:10) leg pain simvastatin [From Zocor] Adverse Reaction (Verified 04/29/20 06:10) Pain in joints Home Medications: Ambulatory Orders Medication Instructions Recorded Nitroglycerin (INPATIENT USE) 0.4 mg SUBLINGUAL Q5M PRN 02/24/16 [Nitrostat] levothyroxine 125 mcg tablet 125 mcg PO DAILY #30 tab 11/14/18 metoprolol tartrate 25 mg tablet 12.5 mg PO BID tab 12/31/19 amlodipine 2.5 mg tablet 2.5 mg PO DAILY tab 03/05/20 Clopidogrel Bisulfate [Clopidogrel] 75 mg PO DINNER 03/13/20 Furosemide 40 mg PO BID 03/13/20 Lisinopril [Prinivil] 10 mg PO DAILY 03/13/20 Omeprazole 20 mg PO DAILY 03/13/20 Apixaban [Eliquis] 5 mg PO BID 03/25/20 Lactobacillus Acidophilus 1 tab PO BID #10 tab 04/01/20 [Acidophilus] Loperamide [Imodium] 2 mg PO Q2H PRN PRN cap 04/01/20 amiodarone 200 mg tablet 100 mg PO DAILY #45 tab 04/11/20 Oxycodone HCl 5 mg PO Q6H PRN PRN 03/16/21 Surgical History: Surgical History (Last Updated 04/29/20 @ 08:[address] Addison Cooper MD) History of coronary artery stent placement (Chronic) Onset Date: 2014 Z95.5 PCI-KHOI-LAD 2014 H/O coronary artery bypass surgery (Chronic) Onset Date: 01/2016 Z95.1 CABG x 2 VALERIO-LAD, 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/2015 History of aortic valve replacement with bioprosthetic valve (Chronic) Onset Date: 01/2016 Z95.3 History of cardioversion Onset Date: 12/24/19 Z98.890 Surgical History: coronary bypass surgery Psychiatric History: No pertinent psych hx EDUCATION INTERN History: No pertinent EDUCATION INTERN history Lives: Spouse/ Significant Other Smoking Status: Never smoker Alcohol: None Drugs: None - *Family History Maternal Family History: Family History (Last Reviewed 03/05/20 @ 10:00 by Montserrat Villa PA, PA) Mother Diabetes Heart disease Other CAD (coronary artery disease) History Items: Diabetes, Heart Disease Review of Systems Comment: See HPI Patient Problems: Active and Suspected Problems (Last Updated 04/29/20 @ 08:[address] Addison pereyra MD) Acute kidney injury superimposed on CKD (Acute) Fracture of femoral neck, left, closed (Acute) Objective: Chest x-ray was personally reviewed. This does appear to be underpenetrated, but bilateral infiltrates are appreciated. Echocardiogram shows a decrease in EF to 40% with mild mitral valve insufficiency and moderate tricuspid valve insufficiency. No pulmonary artery pressures are reported. - Physical Exam Vitals/I&O's: Vital Signs Temp Pulse Resp BP Pulse Ox 36.8 C 101 H 18 109/44 L 98 04/29/20 14:14 04/29/20 15:36 04/29/20 14:14 04/29/20 14:14 04/29/20 14:14 Oxygen Flow Rate (L/min) 2 Oxygen Delivery Method Nasal Cannula Weight: 81.647 kg Body Mass Index (BMI) 35.2 Intake and Output for Last 24 Hours 04/27/20 04/28/20 04/29/20 23:59 23:59 23:59 Output Total 350 / 350 Balance -350 / -350 General: Alert, Oriented x3, Cooperative, No apparent distress, - - No conversational dyspnea HEENT: Atraumatic, PERRLA, EOMI, Normocephalic, - - No scleral icterus or injection noted Oral: Moist Mucosa, No Gingival or Mucosal Lesions/ Ulcerations Neck: Supple, No Nodes, Trachea Midline, JVD, Right Lungs: No rhonchi, No wheeze, No rales, Diminished, - - Symmetric expansion. Cardiovascular: Normal S1, Normal S2, Irregular Rate, Murmur - Grade 2 out of 6 diastolic murmur at the left sternal border, No rub noted, No Gallop Abdomen: Bowel Sounds Present, Soft, Non Tender, Non-Distended Extremities: No clubbing, No cyanosis, Edema Skin: No rashes, No breakdown Musculoskeletal: Tenderness - Palpation left hip Lymphatic: No Cervical, Supraclavicular, or Inguinal Adenopathy Neurological: Cranial nerves II-XII grossly intact, Neuro grossly intact, Motor Exam 5/5 strength throughout, Sensory exam intact to light touch and pain Psych/Mental Status: Alert and oriented to time, place, person, mood and affect Laboratory Results 04/29/20 05:50: WBC 11.0, RBC 3.30 L, Hgb 9.6 L, Hct 32.0 L, MCV 97.0, MCH 29.1, MCHC 30.0 L, RDW Std Deviation 58.4 H, RDW Coeff of [place] 16.2 H, Plt Count 302, MPV 11.7, Immature Gran % (Auto) 1.100 H, Neut % (Auto) 63.8, Lymph % (Auto) 17.2 L, [place] % (Auto) 14.8 H, Eos % (Auto) 2.2, Baso % (Auto) 0.9, Absolute Neuts (auto) 7.0, Absolute Lymphs (auto) 1.89, Nucleated RBC % 0.2 04/29/20 05:50: Sodium 135 L, Potassium 4.3, Chloride 100, Carbon Dioxide 25.0, Anion Gap 10, BUN 62 H, Creatinine 2.78 H, Estim Creat Clear Calc 11.01, Est GFR (MDRD) Af Amer 21 L, Est GFR (MDRD) Non-Af 17 L, BUN/Creatinine Ratio 22.3 H, Glucose 96, Calcium 9.5, Total Bilirubin 0.60, AST 29, ALT 19, Alkaline Phosphatase 123 H, Total Protein 8.5 H, Albumin 3.1 L, Globulin 5.4 H, Albumin/Globulin Ratio 0.6 L 04/29/20 05:50: PT 18.0 H, INR 1.6, APTT 37.4 H 04/29/20 05:50: TSH 3.93 H 04/29/20 07:28: Blood Type O POSITIVE, Antibody Screen NEGATIVE Current Medications Acetaminophen (Acetaminophen 325 Mg Tablet) 650 mg PO Q6H PRN PRN PRN Reason: Pain Score 1-10/Temp > 100.7 F Albuterol/Ipratropium (Ipratropium/Albuterol Sulfate 3 Ml Ampul.Neb) 3 ml INHALATION Q6H.RT [facility] Last Admin: 04/29/20 13:45 Dose: 3 ml Documented by: Amiodarone HCl (Amiodarone 200 Mg Tablet) 100 mg PO DAILY [facility] Last Admin: 04/29/20 10:34 Dose: 100 mg Documented by: Amlodipine Besylate (Amlodipine 2.5 Mg Tablet) 2.5 mg PO DAILY [facility] Last Admin: 04/29/20 10:35 Dose: 2.5 mg Documented by: Hydromorphone HCl (Hydromorphone 0.5 Mg/0.5 Ml Syringe) 0.5 mg IV Q2H PRN PRN PRN Reason: Pain Score 6-10 Last Admin: 04/29/20 14:10 Dose: 0.5 mg Documented by: Sodium Chloride () 1,000 mls @ 60 mls/hr IV .[id number] [facility] Last Admin: 04/29/20 09:30 Dose: 60 mls/hr Documented by: Levothyroxine Sodium (Levothyroxine 125 Mcg Tablet) 125 mcg PO DAILY@0600 [facility] Magnesium Hydroxide (Magnesium Hydroxide 30 Ml Udc) 30 ml PO DAILY PRN PRN PRN Reason: Constipation Metoprolol Tartrate (Metoprolol Tartrate 25 Mg Tablet) 25 mg PO BID [facility] Ondansetron HCl (Ondansetron 4 Mg/2 Ml Vial) 4 mg IV Q8H PRN PRN PRN Reason: NAUSEA/VOMITING Oxycodone HCl (Oxycodone 5 Mg Tablet) 10 mg PO Q4H PRN PRN PRN Reason: Pain Score 6-10 Last Admin: 04/29/20 12:44 Dose: 10 mg Documented by: Oxycodone HCl (Oxycodone 5 Mg Tablet) 5 mg PO Q4H PRN PRN PRN Reason: Pain Score 4-5 Pantoprazole Sodium (Pantoprazole Sodium 20 Mg Tablet) 20 mg PO DAILY [facility] Last Admin: 04/29/20 10:35 Dose: 20 mg Documented by: Senna/Docusate Sodium (Senna/Docusate Sodium 1 Tablet) 2 tablet PO BID PRN PRN PRN Reason: Constipation Sodium Chloride (0.9% Saline Lock 10 Ml Syringe) 10 - 40 ml IV UD PRN PRN Reason: SALINE FLUSH Last Admin: 04/29/20 14:10 Dose: 10 ml Documented by: Zolpidem Tartrate (Zolpidem Tartrate 5 Mg Tablet) 5 mg PO QHS PRN PRN PRN Reason: INSOMNIA Clinical Impression(s) from Imaging Studies Hip/Pelvis X-Ray 04/29/20 06:27 IMPRESSION: Left femoral neck fracture. Electronically Signed: Emile Mustafa MD at 7:11 EDT Tel , Service support , Chest X-Ray 04/29/20 06:52 IMPRESSION: Bilateral hazy airspace opacities (edema/congestion) Cardiomegaly with congestion Underlying interstitial disease Electronically Signed: Heriberto Mcnair DO at 8:29 EDT Tel , Service support , Assessment/Plan All Active Problems (Last Updated 04/29/20 @ 08:[address] Addison Cooper MD) Acute kidney injury superimposed on CKD (Acute) Fracture of femoral neck, left, closed (Acute) RECOMMENDATIONS: 1. Wean supplemental oxygen to maintain saturations at or above 90%. 2. Encourage incentive spirometer 3. Diuretics per cardiology 4. Await orthopedics plan for surgical intervention 5. Potential monitoring in intensive care following surgery 6. Discharge planning IMPRESSIONS: 1. Nondisplaced left hip fracture Orthopedic surgery is following. Patient is currently on Eliquis and Plavix therapy. Defer timing of surgery to orthopedics. Patient is on her baseline nasal cannula oxygen at this time. We will have to follow in the perioperative period. Encourage incentive spirometer. May require increased supplemental oxygen in the perioperative period. Cannot exclude the need to monitor in the intensive care unit for 24 hours after surgery 2. Chronic hypoxic respiratory failure, likely secondary to previous COVID- 19 and CHF Patient with significant infiltrates on chest x-ray. Unclear if this is residual from patient's previous COVID-19. Patient does have an extensive cardiac history. Defer diuretic therapy to cardiology. Echocardiogram does show some decrease in function compared to previous. Patient will likely be highly fluid sensitive. Patient will be at moderate risk for pulmonary complications given recent COVID-19, age and comorbidities. Would not recommend scheduled bronchodilators as this may exacerbate underlying rhythm/rate control. No wheezing noted on exam at this time. 2. History of coronary artery disease status post CABG/bioprosthetic aortic valve/diastolic heart failure/paroxysmal atrial fibrillation Complicates care, management, recovery and prognosis. Continue home medications as indicated. Inpatient E&M: 52689 Init Hosp L2
[2020-04-30] VITALS (23 sets, daily range): BP systolic 93–136; BP diastolic 45–81; PULSE 74–117; RESP 15–18; TEMP 36.4–37.4; O2SAT 92–99
[2020-04-30] MEDS: HYDROmorphone 0.5 MG/0.5 ML SYRINGE IV ×3 (01:12→21:45)
[2020-04-30] MEDS: 0.9% Normal Saline 1,000 ML 60 ML IV ×2 (01:13→18:58)
[2020-04-30] MEDS: Levothyroxine 125 MCG Tablet PO (05:09)
[2020-04-30 06:50] LABS: Absolute Lymphocyte Count 0.92 X10^3/uL (0.83-4.51); Basophil# 0.06 X10^3/uL; Basophil% 0.7 % (0-1); Eosinophil# 0.21 X10^3/uL; Eosinophils% 2.4 % (0-5); Hematocrit 25.4 % (37-47); Hemoglobin 7.7 g/dL (12.0-15.0); Lymphocyte # 0.92 X10^3/ul (4.0); Lymphocyte % 10.7 % (19-41); Mean Corp Hgb Conc 30.3 g/dL (32-36); Mean Corpuscular Hgb 29.6 pg (27.0-32.0); Mean Corpuscular Volume 97.7 fL (81-99); Mean Platelet Vol. 10.8 fl (6.2-12.0); Monocyte# 1.34 X10^3/uL; Monocyte% 15.6 % (0-10); NRBC Flagged by Analyzer 0.2 % (0-5); Neutrophil # 5.99 X10^3/uL (2.7-7.7); Neutrophil % 69.8 % (47-70); Platelet Count 211 K/mm3 (150-450); RBC Distribution Width CV 16.4 % (11.6-14.6); RBC Distribution Width SD 58.4 fl (35.1-43.9); White Blood Count 8.6 K/mm3 (4.4-11.0)
[2020-04-30 06:57] LABS: International Normalized Ratio 1.3; Prothrombin Time (Protime)PT. 15.7 SECONDS (11.7-14.9)
[2020-04-30 07:06] LABS: Anion Gap 2 (5-15); BUN 55 mg/dL (7-18); BUN/Creat Ratio 26.8 RATIO (10-20); Calcium,Total 8.6 mg/dL (8.5-10.1); Chloride 106 mmol/L (98-107); Creatinine, Serum 2.05 mg/dL (0.55-1.02); EST Glomerular Filtration Rate 25 mL/min (>60); Est Glom Filt Rate - Afr Amer 30 mL/min (>60); Estimated Creatinine Clearance 14.94 ml/min; Glucose 122 mg/dL (74-106); Potassium 5.2 mmol/L (3.5-5.1); Sodium Level 137 mmol/L (136-145)
[2020-04-30] MEDS: Ipratropium/Albuterol Sulfate 3 ML AMPUL.NEB INHALATION ×3 (07:16→19:15)
[2020-04-30] MEDS: oxyCODONE 5 MG Tablet 10 MG PO ×2 (08:14→18:38)
[2020-04-30] MEDS: 0.9% Saline Lock 10 ML Syringe IV ×2 (08:15→11:35)
--- NOTE | 2020-04-30 08:47 | PCM.PROGNOTE ---
Patient Problems: Active and Suspected Problems (Last Updated 04/29/20 @ 08:[address] Addison Cooper MD) Acute kidney injury superimposed on CKD (Acute) Fracture of femoral neck, left, closed (Acute) Subjective: Chief complaint: Follow-up after admission for subacute traumatic left femoral neck fracture, EL on CKD and acute on chronic anemia. Patient seen and examined. No acute events overnight. She complains of left hip soreness, no pain at rest. No other complaints. She remains on 2 L of oxygen, blood pressure and heart rate are maintained, afebrile.. - Physical Exam Vitals/I&O's: Vital Signs Temp Pulse Resp BP Pulse Ox 98.1 F 101 H 16 101/45 L 95 04/30/20 08:03 04/30/20 08:03 04/30/20 08:03 04/30/20 08:03 04/30/20 08:03 Oxygen Flow Rate (L/min) 2 Oxygen Delivery Method Nasal Cannula Weight: 180 lb Body Mass Index (BMI) 35.2 Intake and Output for Last 24 Hours 04/28/20 04/29/20 04/30/20 23:59 23:59 23:59 Intake Total 1343 / 1343 Output Total 550 / 900 600 / 600 Balance -550 / -700 743 / 743 General: Alert, Oriented x3, Cooperative, No apparent distress HEENT: Atraumatic, PERRLA, EOMI, Normocephalic Oral: Moist Mucosa, No Gingival or Mucosal Lesions/ Ulcerations Neck: Supple, No JVD, Negative Carotid Bruits, Trachea Midline, Thyroid Normal Size and Texture Lungs: Clear to auscultation, No rhonchi, No wheeze, No rales, Diminished Cardiovascular: Regular rate, Regular Rhythm, Normal S1, Normal S2, PMI Normal Abdomen: Bowel Sounds Present, Soft, Non Tender, Non-Distended, No Hepato-splenomegaly Extremities: No clubbing, No cyanosis, Edema - Trace edema. Skin: No rashes, No breakdown Lymphatic: No Cervical, Supraclavicular, or Inguinal Adenopathy Neurological: Cranial nerves II-XII grossly intact, Motor Exam 5/5 strength throughout Psych/Mental Status: Normal Affect, Appropriate, Alert and oriented to time, place, person, mood and affect Laboratory Results 04/29/20 05:50: TSH 3.93 H 04/30/20 06:38: WBC 8.6, RBC 2.60 L, Hgb 7.7 L, Hct 25.4 L, MCV 97.7, MCH 29.6, MCHC 30.3 L, RDW Std Deviation 58.4 H, RDW Coeff of [place] 16.4 H, Plt Count 211, MPV 10.8, Immature Gran % (Auto) 0.800, Neut % (Auto) 69.8, Lymph % (Auto) 10.7 L, [place] % (Auto) 15.6 H, Eos % (Auto) 2.4, Baso % (Auto) 0.7, Absolute Neuts (auto) 6.0, Absolute Lymphs (auto) 0.92, Nucleated RBC % 0.2 04/30/20 06:38: PT 15.7 H, INR 1.3 04/30/20 06:38: Sodium 137, Potassium 5.2 H, Chloride 106, Carbon Dioxide 29.0, Anion Gap 2 L, BUN 55 H, Creatinine 2.05 H, Estim Creat Clear Calc 14.94, Est GFR (MDRD) Af Amer 30 L, Est GFR (MDRD) Non-Af 25 L, BUN/Creatinine Ratio 26.8 H, Glucose 122 H, Calcium 8.6 Current Medications Acetaminophen (Acetaminophen 325 Mg Tablet) 650 mg PO Q6H PRN PRN PRN Reason: Pain Score 1-10/Temp > 100.7 F Albuterol/Ipratropium (Ipratropium/Albuterol Sulfate 3 Ml Ampul.Neb) 3 ml INHALATION Q6H.RT [facility] Last Admin: 04/30/20 07:16 Dose: 3 ml Documented by: Amiodarone HCl (Amiodarone 200 Mg Tablet) 100 mg PO DAILY [facility] Last Admin: 04/29/20 10:34 Dose: 100 mg Documented by: Amlodipine Besylate (Amlodipine 2.5 Mg Tablet) 2.5 mg PO DAILY [facility] Last Admin: 04/29/20 10:35 Dose: 2.5 mg Documented by: Hydromorphone HCl (Hydromorphone 0.5 Mg/0.5 Ml Syringe) 0.5 mg IV Q2H PRN PRN PRN Reason: Pain Score 6-10 Last Admin: 04/30/20 01:12 Dose: 0.5 mg Documented by: Sodium Chloride () 1,000 mls @ 60 mls/hr IV .[id number] [facility] Last Admin: 04/30/20 01:13 Dose: 60 mls/hr Documented by: Levothyroxine Sodium (Levothyroxine 125 Mcg Tablet) 125 mcg PO DAILY@0600 [facility] Last Admin: 04/30/20 05:09 Dose: 125 mcg Documented by: Magnesium Hydroxide (Magnesium Hydroxide 30 Ml Udc) 30 ml PO DAILY PRN PRN PRN Reason: Constipation Metoprolol Tartrate (Metoprolol Tartrate 25 Mg Tablet) 25 mg PO BID [facility] Last Admin: 04/29/20 21:09 Dose: Not Given Documented by: Ondansetron HCl (Ondansetron 4 Mg/2 Ml Vial) 4 mg IV Q8H PRN PRN PRN Reason: NAUSEA/VOMITING Oxycodone HCl (Oxycodone 5 Mg Tablet) 10 mg PO Q4H PRN PRN PRN Reason: Pain Score 6-10 Last Admin: 04/30/20 08:14 Dose: 10 mg Documented by: Oxycodone HCl (Oxycodone 5 Mg Tablet) 5 mg PO Q4H PRN PRN PRN Reason: Pain Score 4-5 Pantoprazole Sodium (Pantoprazole Sodium 20 Mg Tablet) 20 mg PO DAILY [facility] Last Admin: 04/29/20 10:35 Dose: 20 mg Documented by: Senna/Docusate Sodium (Senna/Docusate Sodium 1 Tablet) 2 tablet PO BID PRN PRN PRN Reason: Constipation Sodium Chloride (0.9% Saline Lock 10 Ml Syringe) 10 - 40 ml IV UD PRN PRN Reason: SALINE FLUSH Last Admin: 04/30/20 08:15 Dose: 10 ml Documented by: Zolpidem Tartrate (Zolpidem Tartrate 5 Mg Tablet) 5 mg PO QHS PRN PRN PRN Reason: INSOMNIA Medical Necessity - Tobacco Use Smoking Status: Never smoker Assessment/Plan All Active Problems (Last Updated 04/29/20 @ 08:[address] Addison Cooper MD) Acute kidney injury superimposed on CKD (Acute) Fracture of femoral neck, left, closed (Acute) This is an 85 years old female patient presented to the emergency room because of left hip pain that has been going on for 3 months, got worse over the last 3 weeks, had mechanical fall around [place] of 2019 and she was found to have acute/subacute left femoral neck fracture and EL on CKD. She developed acute on chronic anemia. #1 Subacute traumatic left basicervical femoral neck fracture: She is on IV morphine and OxyIR as needed for pain. Her pain is manageable. Her vital signs are stable, afebrile, remains on 2 L of oxygen. Today, hemoglobin is down to 7.7 g/dL. Potassium is 5.2, creatinine is down to 2.05, improving. Orthopedic surgery consulted, plan for surgical repair tomorrow. Plan: Transfuse 1 unit packed RBCs, repeat CBC and BMP tomorrow morning, will proceed with surgery tomorrow. #2 acute kidney injury on top of stage III chronic kidney disease: She is on minimal IV fluids for hydration. Baseline creatinine has been around 1.4 to 1.7 mg/dL. Admission creatinine is 2.78, came down to 2.05 today, improving. Plan to repeat BMP tomorrow morning. #3 acute on chronic anemia: Baseline hemoglobin is been around 10 g/dL, it is normocytic anemia. Admission hemoglobin was 9.6, came down to 7.7 g/dL today. Likely because of hemodilution, no active bleeding. Plan to transfuse 1 dose of packed RBCs, repeat H&H today evening, repeat CBC tomorrow morning. #4 preoperative evaluation: 84 years old female with multiple medical comorbidities including CAD with CABG and stents, CHF, aortic valve replacement, CKD and atrial fibrillation in addition to recent COVID-19 pneumonia and respiratory failure and she has been on oxygen. EKG revealed A. fib, no acute ischemic changes. Chest x-ray revealed diffuse bilateral airspace disease consistent with recent COVID-19 pneumonia. Patient has been on on oxygen at 2 L since February,. Based on her age, past medical history, kidney function and functional status, her estimated risk for perioperative myocardial infarction or cardiac arrest is 3%. Based on ACS NSQIP surgical risk calculator, her risk for serious complications is above average, predicted length of hospital stay is 5.5 days. Appreciate pulmonology and cardiology recommendations. 2D echocardiogram revealed ejection fraction of 40 to 45%, mild MR, moderate TR, normal bioprosthetic aortic valve. This patient is at high risk for intraoperative and postoperative complications. No further work-up needed. We can proceed with surgery. #5 status post recent COVID-19 pneumonia/respiratory failure: Patient was admitted on February 2020 for COVID-19 completed treatment with IV remdesivir and p.o. Decadron, was readmitted again after worsening symptoms on March, and discharged on home oxygen at 2 L and she has been on 2 L since then. Chest x-ray reviewed as above. She remained on 2 L of oxygen. She is on DuoNeb every 6 hours. #6 CAD status post CABG and stents: EKG reviewed, no acute changes. She is on metoprolol. Lisinopril and Plavix are on hold. #7 status post aortic valve replacement with bioprosthetic valve: 2D echocardiogram reviewed as above, bioprosthetic aortic valve apparatus is stable. #8 hypertension: Blood pressure stable, continue Norvasc and metoprolol. Keep holding lisinopril. #9 paroxysmal atrial fibrillation: Currently, rate has been around 100, continue amiodarone and metoprolol for rate control, hold Eliquis for now. 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 Continue metoprolol. Keep holding Lasix and lisinopril for now. #11 CODE STATUS: Full code. Discussed with the patient and her . I explained to the patient different types of CODE STATUS including full code, DNR CC, DNR CCA with and without intubation. Patient stated that she would be okay with resuscitation, intubation and mechanical ventilation if it would be for short time and she agreed to have her or her son decide to withdraw care if her prognosis is poor. #12 DVT prophylaxis: SCDs, INR is 1.3. This note was generated with [employer]Media[employer] software. It may contain incorrect words, spelling, and punctuation that were not noted in checking the note before signing. Inpatient E&M: [id number] [facility] [[email or web address]] Hosp L3
--- NOTE | 2020-04-30 08:54 | PCM.PN.PUL ---
Patient Problems: Active and Suspected Problems (Last Updated 04/29/20 @ 08:[address] Addison Cooper MD) Acute kidney injury superimposed on CKD (Acute) Fracture of femoral neck, left, closed (Acute) Subjective: Patient did well overnight. No acute issues were reported. Patient believes her respiratory status is at its baseline. Patient remains on nasal cannula oxygen. No chest pain or abdominal pain is reported. Patient believes her hip pain is relatively controlled, but still has significant discomfort with any movement. - Physical Exam Vitals/I&O's: Vital Signs Temp Pulse Resp BP Pulse Ox 36.7 C 101 H 16 101/45 L 95 04/30/20 08:03 04/30/20 08:03 04/30/20 08:03 04/30/20 08:03 04/30/20 08:03 Oxygen Flow Rate (L/min) 2 Oxygen Delivery Method Nasal Cannula Weight: 81.647 kg Body Mass Index (BMI) 35.2 Intake and Output for Last 24 Hours 04/28/20 04/29/20 04/30/20 23:59 23:59 23:59 Intake Total 1343 / 1343 Output Total 550 / 900 600 / 600 Balance -550 / -700 743 / 743 General: Alert, Oriented x3, Cooperative, No apparent distress, - - No conversational dyspnea HEENT: Atraumatic, PERRLA, EOMI, Normocephalic, - - No scleral icterus or injection noted Oral: Moist Mucosa, No Gingival or Mucosal Lesions/ Ulcerations Neck: Supple, No JVD, No Nodes, Trachea Midline Lungs: No rhonchi, No wheeze, No rales, Diminished, - - Symmetric expansion. Some cough with deep inhalation Cardiovascular: Normal S1, Normal S2, Irregular Rate, Murmur, No rub noted, No Gallop Abdomen: Bowel Sounds Present, Soft, Non Tender, Non-Distended, Obese Extremities: No clubbing, No cyanosis, Edema Skin: - - No change from previous Musculoskeletal: Tenderness - Unchanged from previous Lymphatic: No Cervical, Supraclavicular, or Inguinal Adenopathy Neurological: Cranial nerves II-XII grossly intact, Neuro grossly intact, Motor Exam 5/5 strength throughout Psych/Mental Status: Alert and oriented to time, place, person, mood and affect Laboratory Results 04/29/20 05:50: TSH 3.93 H 04/30/20 06:38: WBC 8.6, RBC 2.60 L, Hgb 7.7 L, Hct 25.4 L, MCV 97.7, MCH 29.6, MCHC 30.3 L, RDW Std Deviation 58.4 H, RDW Coeff of Leatha 16.4 H, Plt Count 211, MPV 10.8, Immature Gran % (Auto) 0.800, Neut % (Auto) 69.8, Lymph % (Auto) 10.7 L, [place] % (Auto) 15.6 H, Eos % (Auto) 2.4, Baso % (Auto) 0.7, Absolute Neuts (auto) 6.0, Absolute Lymphs (auto) 0.92, Nucleated RBC % 0.2 04/30/20 06:38: PT 15.7 H, INR 1.3 04/30/20 06:38: Sodium 137, Potassium 5.2 H, Chloride 106, Carbon Dioxide 29.0, Anion Gap 2 L, BUN 55 H, Creatinine 2.05 H, Estim Creat Clear Calc 14.94, Est GFR (MDRD) Af Amer 30 L, Est GFR (MDRD) Non-Af 25 L, BUN/Creatinine Ratio 26.8 H, Glucose 122 H, Calcium 8.6 Current Medications Acetaminophen (Acetaminophen 325 Mg Tablet) 650 mg PO Q6H PRN PRN PRN Reason: Pain Score 1-10/Temp > 100.7 F Albuterol/Ipratropium (Ipratropium/Albuterol Sulfate 3 Ml Ampul.Neb) 3 ml INHALATION Q6H.RT [facility] Last Admin: 04/30/20 07:16 Dose: 3 ml Documented by: Amiodarone HCl (Amiodarone 200 Mg Tablet) 100 mg PO DAILY [facility] Last Admin: 04/29/20 10:34 Dose: 100 mg Documented by: Amlodipine Besylate (Amlodipine 2.5 Mg Tablet) 2.5 mg PO DAILY [facility] Last Admin: 04/29/20 10:35 Dose: 2.5 mg Documented by: Hydromorphone HCl (Hydromorphone 0.5 Mg/0.5 Ml Syringe) 0.5 mg IV Q2H PRN PRN PRN Reason: Pain Score 6-10 Last Admin: 04/30/20 01:12 Dose: 0.5 mg Documented by: Sodium Chloride () 1,000 mls @ 60 mls/hr IV .[id number] [facility] Last Admin: 04/30/20 01:13 Dose: 60 mls/hr Documented by: Levothyroxine Sodium (Levothyroxine 125 Mcg Tablet) 125 mcg PO DAILY@0600 [facility] Last Admin: 04/30/20 05:09 Dose: 125 mcg Documented by: Magnesium Hydroxide (Magnesium Hydroxide 30 Ml Udc) 30 ml PO DAILY PRN PRN PRN Reason: Constipation Metoprolol Tartrate (Metoprolol Tartrate 25 Mg Tablet) 25 mg PO BID [facility] Last Admin: 04/29/20 21:09 Dose: Not Given Documented by: Ondansetron HCl (Ondansetron 4 Mg/2 Ml Vial) 4 mg IV Q8H PRN PRN PRN Reason: NAUSEA/VOMITING Oxycodone HCl (Oxycodone 5 Mg Tablet) 10 mg PO Q4H PRN PRN PRN Reason: Pain Score 6-10 Last Admin: 04/30/20 08:14 Dose: 10 mg Documented by: Oxycodone HCl (Oxycodone 5 Mg Tablet) 5 mg PO Q4H PRN PRN PRN Reason: Pain Score 4-5 Pantoprazole Sodium (Pantoprazole Sodium 20 Mg Tablet) 20 mg PO DAILY [facility] Last Admin: 04/29/20 10:35 Dose: 20 mg Documented by: Senna/Docusate Sodium (Senna/Docusate Sodium 1 Tablet) 2 tablet PO BID PRN PRN PRN Reason: Constipation Sodium Chloride (0.9% Saline Lock 10 Ml Syringe) 10 - 40 ml IV UD PRN PRN Reason: SALINE FLUSH Last Admin: 04/30/20 08:15 Dose: 10 ml Documented by: Zolpidem Tartrate (Zolpidem Tartrate 5 Mg Tablet) 5 mg PO QHS PRN PRN PRN Reason: INSOMNIA Medical Necessity - Tobacco Use Smoking Status: Never smoker Assessment/Plan All Active Problems (Last Updated 04/29/20 @ 08:[address] Addison Cooper MD) Acute kidney injury superimposed on CKD (Acute) Fracture of femoral neck, left, closed (Acute) RECOMMENDATIONS: 1. Wean supplemental oxygen to maintain saturations at or above 90%. 2. Encourage incentive spirometer 3. Diuretics per cardiology. Consider discontinuation of IV fluids 4. Await orthopedics plan for surgical intervention 5. Potential monitoring in intensive care following surgery 6. Discharge planning IMPRESSIONS: 1. Nondisplaced left hip fracture Orthopedic surgery is following. Patient was on Eliquis and Plavix therapy. Defer timing of surgery to orthopedics. Additively scheduled for tomorrow. Patient should be optimized from a respiratory standpoint at that time. Patient is on her baseline nasal cannula oxygen at this time. We will have to follow in the perioperative period. Encourage incentive spirometer. May require increased supplemental oxygen in the perioperative period. Cannot exclude the need to monitor in the intensive care unit for 24 hours after surgery 2. Chronic hypoxic respiratory failure, likely secondary to previous COVID-19 and CHF Patient with significant infiltrates on chest x-ray. Unclear if this is residual from patient's previous COVID-19. Patient does have an extensive cardiac history. Defer diuretic therapy to cardiology. Echocardiogram does show some decrease in function compared to previous. Patient will likely be highly fluid sensitive. Patient will be at moderate risk for pulmonary complications given recent COVID-19, age and comorbidities. Would not recommend scheduled bronchodilators as this may exacerbate underlying rhythm/rate control. No wheezing noted on exam at this time. 2. History of coronary artery disease status post CABG/bioprosthetic aortic valve/diastolic heart failure/paroxysmal atrial fibrillation Complicates care, management, recovery and prognosis. Continue home medications as indicated. Inpatient E&M: [id number] [facility] L2
[2020-04-30] MEDS: Metoprolol Tartrate 25 MG Tablet PO ×2 (09:49→21:49)
[2020-04-30] MEDS: Amiodarone 200 MG Tablet 100 MG PO (09:49)
[2020-04-30] MEDS: Pantoprazole Sodium 20 MG Tablet PO (09:50)
[2020-04-30] MEDS: Magnesium Hydroxide 30 ML UDC PO (09:50)
--- NOTE | 2020-04-30 10:16 | NURSING ---
LATE ENTRY - DR WALTER MADE AWARE OF PT LOW BP, HIGH HR THIS AM. NEW ORDER TO [facility].
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
--- NOTE | 2020-04-30 10:45 | CASEMGMT ---
RN REINALDO Face to Face with patient for initial transition planning/care coordination assessment. RN CM introduced self and role at [facility]. Patient lying in bed, alert and oriented. Patient willing to participate in assessment and is able to answer all questions appropriately. Care providers, pharmacy, and demographics verified. Patient wishes to discharge home, will monitor if patient can go home with resumption of HHC vs SNF pending course of treatment and progress with therapy. Patient states she has no further needs or concerns at this time. CM to follow for discharge planning needs that may arise. PCP: Jenna Specialists: Isabella proof technician Preferred Pharmacy: [facility] Insurance: [employer] Prescription Benefit: yes Living Will/HPOA: yes, son Ralph Lester HPOA LNOK: , son, and daughter Living Arrangements: Patient lives with in 1 story home with 2 steps and railing to enter the home. Patient states she was independent at home. Transportation: self/ DME/HHC: Patient states she has shower chair, raised toilet, cane, rollator, grab bars, nebulizer, and oxygen at home 2 lpm with portability through [employer]. Patient denies previous SNF. Patient states she is active with [facility] with PT/OT. Disposition Plan: HHC vs SNF pending course of treatment and progress with therapy. Yohana CHOW, RN, CM
[2020-04-30 11:32] LABS: Magnesium 2.3 mg/dL (1.6-2.6); Potassium 5.1 mmol/L (3.5-5.1)
[2020-04-30] MEDS: Digoxin 250 MCG Tablet PO (11:40)
--- NOTE | 2020-04-30 13:39 | NURSING ---
RNCM Palliative Screening Note: Palliative Screening Tool completed. Patient does not meet criteria for Palliative Referral at this time. Primary RNCM Yohana Roberson RNCM
[2020-04-30 18:07] LABS: Hematocrit 31.6 % (37-47); Hemoglobin 9.4 g/dL (12.0-15.0)
[2020-04-30 18:13] LABS: Potassium 5.1 mmol/L (3.5-5.1)
[2020-05-01] VITALS (23 sets, daily range): BP systolic 104–128; BP diastolic 48–76; PULSE 79–103; RESP 13–24; TEMP 36.2–37.1; O2SAT 90–98; BMI 35.2
[2020-05-01] MEDS: Levothyroxine 125 MCG Tablet PO (05:01)
[2020-05-01] MEDS: 0.9% Saline Lock 10 ML Syringe IV (05:02)
[2020-05-01] MEDS: Ipratropium/Albuterol Sulfate 3 ML AMPUL.NEB INHALATION ×2 (06:55→18:50)
[2020-05-01 07:02] LABS: Absolute Lymphocyte Count 0.96 X10^3/uL (0.83-4.51); Absolute Neutrophil Count 7.2 X10^3/uL (2.0-7.7); Basophil# 0.08 X10^3/uL; Basophil% 0.8 % (0-1); Eosinophil# 0.27 X10^3/uL; Eosinophils% 2.7 % (0-5); Hematocrit 28.7 % (37-47); Hemoglobin 8.7 g/dL (12.0-15.0); Lymphocyte # 0.96 X10^3/ul (4.0); Lymphocyte % 9.7 % (19-41); Mean Corp Hgb Conc 30.3 g/dL (32-36); Mean Corpuscular Hgb 29.4 pg (27.0-32.0); Mean Platelet Vol. 10.9 fl (6.2-12.0); Monocyte% 13.1 % (0-10); NRBC Flagged by Analyzer 0.2 % (0-5); Neutrophil # 7.22 X10^3/uL (2.7-7.7); Neutrophil % 72.7 % (47-70); Platelet Count 211 K/mm3 (150-450); RBC Distribution Width CV 16.7 % (11.6-14.6); RBC Distribution Width SD 59.2 fl (35.1-43.9); Red Blood Count 2.96 M/mm3 (4.2-5.4); White Blood Count 9.9 K/mm3 (4.4-11.0)
[2020-05-01 07:55] LABS: Anion Gap 5 (5-15); BUN 47 mg/dL (7-18); BUN/Creat Ratio 28.8 RATIO (10-20); Calcium,Total 8.7 mg/dL (8.5-10.1); Chloride 105 mmol/L (98-107); Creatinine, Serum 1.63 mg/dL (0.55-1.02); EST Glomerular Filtration Rate 32 mL/min (>60); Est Glom Filt Rate - Afr Amer 39 mL/min (>60); Estimated Creatinine Clearance 18.78 ml/min; Glucose 113 mg/dL (74-106); Potassium 5.4 mmol/L (3.5-5.1); Sodium Level 135 mmol/L (136-145)
[2020-05-01] MEDS: oxyCODONE 5 MG Tablet PO (08:18)
--- NOTE | 2020-05-01 08:33 | PCM.PROGNOTE ---
Patient Problems: Active and Suspected Problems (Last Updated 04/29/20 @ 08:[address] Addison Cooper MD) Acute kidney injury superimposed on CKD (Acute) Fracture of femoral neck, left, closed (Acute) Subjective: Chief complaint: Follow-up after admission for subacute traumatic left femoral neck fracture, EL on CKD and acute on chronic anemia. Patient seen and examined. No acute events overnight. Her left hip pain is manageable. No other complaints. She remains on 2 L of oxygen. Other vital signs are stable, afebrile. - Physical Exam Vitals/I&O's: Vital Signs Temp Pulse Resp BP Pulse Ox 98.7 F 102 H 18 128/57 H 91 05/01/20 08:00 05/01/20 08:00 05/01/20 08:00 05/01/20 08:00 05/01/20 08:00 Oxygen Flow Rate (L/min) 2 Oxygen Delivery Method Nasal Cannula Weight: 180 lb Body Mass Index (BMI) 35.2 Intake and Output for Last 24 Hours 04/29/20 04/30/20 05/01/20 23:59 23:59 23:59 Intake Total 2923 / 3223 300 / 300 Output Total 550 / 900 1050 / 1300 600 / 600 Balance -550 / -700 1873 / 1923 -300 / -300 General: Alert, Oriented x3, Cooperative, No apparent distress HEENT: Atraumatic, PERRLA, EOMI, Normocephalic Oral: Moist Mucosa, No Gingival or Mucosal Lesions/ Ulcerations Neck: Supple, No JVD, Negative Carotid Bruits, Trachea Midline, Thyroid Normal Size and Texture Lungs: Clear to auscultation, No rhonchi, No wheeze, No rales, Diminished Cardiovascular: Regular rate, Regular Rhythm, Normal S1, Normal S2, PMI Normal Abdomen: Bowel Sounds Present, Soft, Non Tender, Non-Distended, No Hepato-splenomegaly Extremities: No clubbing, No cyanosis, Edema - Trace edema. Skin: No rashes, No breakdown Lymphatic: No Cervical, Supraclavicular, or Inguinal Adenopathy Neurological: Cranial nerves II-XII grossly intact, Neuro grossly intact Psych/Mental Status: Normal Affect, Appropriate, Alert and oriented to time, place, person, mood and affect Laboratory Results 04/29/20 07:28: Crossmatch See Detail 04/30/20 11:05: Potassium 5.1, Magnesium 2.3 04/30/20 17:42: Hgb 9.4 L, Hct 31.6 L 04/30/20 17:42: Potassium 5.1 05/01/20 06:45: WBC 9.9, RBC 2.96 L, Hgb 8.7 L, Hct 28.7 L, MCV 97.0, MCH 29.4, MCHC 30.3 L, RDW Std Deviation 59.2 H, RDW Coeff of Leatha 16.7 H, Plt Count 211, MPV 10.9, Immature Gran % (Auto) 1.000 H, Neut % (Auto) 72.7 H, Lymph % (Auto) 9.7 L, [place] % (Auto) 13.1 H, Eos % (Auto) 2.7, Baso % (Auto) 0.8, Absolute Neuts (auto) 7.2, Absolute Lymphs (auto) 0.96, Nucleated RBC % 0.2 05/01/20 06:45: Sodium 135 L, Potassium 5.4 H, Chloride 105, Carbon Dioxide 25.0, Anion Gap 5, BUN 47 H, Creatinine 1.63 H, Estim Creat Clear Calc 18.78, Est GFR (MDRD) Af Amer 39 L, Est GFR (MDRD) Non-Af 32 L, BUN/Creatinine Ratio 28.8 H, Glucose 113 H, Calcium 8.7 Current Medications Acetaminophen (Acetaminophen 325 Mg Tablet) 650 mg PO Q6H PRN PRN PRN Reason: Pain Score 1-10/Temp > 100.7 F Albuterol/Ipratropium (Ipratropium/Albuterol Sulfate 3 Ml Ampul.Neb) 3 ml INHALATION Q6H.RT [facility] Last Admin: 05/01/20 06:55 Dose: 3 ml Documented by: Amiodarone HCl (Amiodarone 200 Mg Tablet) 100 mg PO DAILY [facility] Last Admin: 04/30/20 09:49 Dose: 100 mg Documented by: Hydromorphone HCl (Hydromorphone 0.5 Mg/0.5 Ml Syringe) 0.5 mg IV Q2H PRN PRN PRN Reason: Pain Score 6-10 Last Admin: 04/30/20 21:45 Dose: 0.5 mg Documented by: Sodium Chloride () 1,000 mls @ 60 mls/hr IV .[id number] [facility] Last Admin: 04/30/20 18:58 Dose: 60 mls/hr Documented by: Levothyroxine Sodium (Levothyroxine 125 Mcg Tablet) 125 mcg PO DAILY@0600 [facility] Last Admin: 05/01/20 05:01 Dose: 125 mcg Documented by: Magnesium Hydroxide (Magnesium Hydroxide 30 Ml Udc) 30 ml PO DAILY PRN PRN PRN Reason: Constipation Last Admin: 04/30/20 09:50 Dose: 30 ml Documented by: Metoprolol Tartrate (Metoprolol Tartrate 25 Mg Tablet) 25 mg PO BID [facility] Last Admin: 04/30/20 21:49 Dose: 25 mg Documented by: Ondansetron HCl (Ondansetron 4 Mg/2 Ml Vial) 4 mg IV Q8H PRN PRN PRN Reason: NAUSEA/VOMITING Oxycodone HCl (Oxycodone 5 Mg Tablet) 10 mg PO Q4H PRN PRN PRN Reason: Pain Score 6-10 Last Admin: 04/30/20 18:38 Dose: 10 mg Documented by: Oxycodone HCl (Oxycodone 5 Mg Tablet) 5 mg PO Q4H PRN PRN PRN Reason: Pain Score 4-5 Last Admin: 05/01/20 08:18 Dose: 5 mg Documented by: Pantoprazole Sodium (Pantoprazole Sodium 20 Mg Tablet) 20 mg PO DAILY [facility] Last Admin: 04/30/20 09:50 Dose: 20 mg Documented by: Senna/Docusate Sodium (Senna/Docusate Sodium 1 Tablet) 2 tablet PO BID PRN PRN PRN Reason: Constipation Sodium Chloride (0.9% Saline Lock 10 Ml Syringe) 10 - 40 ml IV UD PRN PRN Reason: SALINE FLUSH Last Admin: 05/01/20 05:02 Dose: 10 ml Documented by: Sodium Polystyrene Sulfonate (Sodium Polystyrene Sulfonate 15 Gm/60 Ml Udc) 15 gm PO X1 ONE Stop: 05/01/20 08:33 Zolpidem Tartrate (Zolpidem Tartrate 5 Mg Tablet) 5 mg PO QHS PRN PRN PRN Reason: INSOMNIA Medical Necessity - Tobacco Use Smoking Status: Never smoker Assessment/Plan All Active Problems (Last Updated 04/29/20 @ 08:[address] Addison Cooper MD) Acute kidney injury superimposed on CKD (Acute) Fracture of femoral neck, left, closed (Acute) This is an 85 years old female patient presented to the emergency room because of left hip pain that has been going on for 3 months, got worse over the last 3 weeks, had mechanical fall around [place] of 2019 and she was found to have subacute left femoral neck fracture, EL on CKD and acute on chronic anemia. #1 Subacute traumatic left basicervical femoral neck fracture: Remained on IV morphine and OxyIR as needed for pain. Her pain is manageable. Her vital signs are stable, afebrile, remains on 2 L of oxygen. Today, hemoglobin is down to 8.7 g/dL. Potassium is 5.4, creatinine is down to 1.63, improving. Orthopedic surgery on the case, plan for surgery today, will repeat CBC and BMP tomorrow morning. #2 acute kidney injury on top of stage III chronic kidney disease: Remained on minimal IV fluids for hydration. Baseline creatinine has been around 1.4 to 1.7 mg/dL. Admission creatinine is 2.78, came down to 1.63, continue to improve. Plan to repeat BMP tomorrow morning. #3 acute on chronic anemia: Baseline hemoglobin is been around 10 g/dL, it is normocytic anemia. Hemoglobin went down to 7.7 g/dL, attributed to hemodilution. No active bleeding. She received 1 unit of packed RBCs, today's hemoglobin is 8.7 g/dL. Plan to monitor, transfuse if hemoglobin is than 8 g/dL. #4 preoperative evaluation: 84 years old female with multiple medical comorbidities including CAD with CABG and stents, CHF, aortic valve replacement, CKD and atrial fibrillation in addition to recent COVID-19 pneumonia and respiratory failure and she has been on oxygen. EKG revealed A. fib, no acute ischemic changes. Chest x-ray revealed diffuse bilateral airspace disease consistent with recent COVID-19 pneumonia. Patient has been on on oxygen at 2 L since February,. Based on her age, past medical history, kidney function and functional status, her estimated risk for perioperative myocardial infarction or cardiac arrest is 3%. Based on ACS NSQIP surgical risk calculator, her risk for serious complications is above average, predicted length of hospital stay is 5.5 days. Appreciate pulmonology and cardiology recommendations. 2D echocardiogram revealed ejection fraction of 40 to 45%, mild MR, moderate TR, normal bioprosthetic aortic valve. This patient is at high risk for intraoperative and postoperative complications. No further work-up needed. We can proceed with surgery today. #5 mild hyperkalemia: Potassium was 5.2 yesterday, came down to 5.1. Today, it is up again to 5.4. Kidney function is improving. Patient is on gentle IV fluids for hydration. Plan: Kayexalate p.o. x1, repeat BMP tomorrow morning. #6 status post recent COVID-19 pneumonia/respiratory failure: Patient was admitted on February 2020 for COVID-19 completed treatment with IV remdesivir and p.o. Decadron, was readmitted again after worsening symptoms on March, and discharged on home oxygen at 2 L and she has been on 2 L since then. Chest x-ray reviewed as above. She remained on 2 L of oxygen. She is on DuoNeb every 6 hours. #7 CAD status post CABG and stents: EKG reviewed, no acute changes. She is on metoprolol. Lisinopril and Plavix are on hold. #8 status post aortic valve replacement with bioprosthetic valve: 2D echocardiogram reviewed as above, bioprosthetic aortic valve apparatus is stable. #9 hypertension: Blood pressure stable, continue Norvasc and metoprolol. Keep holding lisinopril. #10 paroxysmal atrial fibrillation: Currently, rate has been around 100, continue amiodarone and metoprolol for rate control, Eliquis on hold. 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 Continue metoprolol. Keep holding Lasix and lisinopril for now. #11 CODE STATUS: Full code. Discussed with the patient and her . #12 DVT prophylaxis: SCDs, INR is 1.3. This note was generated with [employer] dictation software. It may contain incorrect words, spelling, and punctuation that were not noted in checking the note before signing. Inpatient E&M: [id number] [facility] L3
--- NOTE | 2020-05-01 09:54 | PCM.PN.PUL ---
Patient Problems: Active and Suspected Problems (Last Updated 04/29/20 @ 08:[address] Addison Cooper MD) Acute kidney injury superimposed on CKD (Acute) Fracture of femoral neck, left, closed (Acute) Subjective: Patient did well overnight. Patient continues to have some discomfort of the left hip, but is not reporting any change in her respiratory status. Patient has been stable on 2 L nasal cannula. No chest pain is reported. - Physical Exam Vitals/I&O's: Vital Signs Temp Pulse Resp BP Pulse Ox 37.1 C 102 H 18 128/57 H 91 05/01/20 08:00 05/01/20 08:00 05/01/20 08:00 05/01/20 08:00 05/01/20 08:00 Oxygen Flow Rate (L/min) 2 Oxygen Delivery Method Nasal Cannula Weight: 81.647 kg Body Mass Index (BMI) 35.2 Intake and Output for Last 24 Hours 04/29/20 04/30/20 05/01/20 23:59 23:59 23:59 Intake Total 2923 / 3223 300 / 300 Output Total 550 / 900 1050 / 1300 600 / 600 Balance -550 / -700 1873 / 1923 -300 / -300 General: Alert, Oriented x3, Cooperative, No apparent distress, - - No conversational dyspnea. Obese. HEENT: Atraumatic, PERRLA, EOMI, Normocephalic, - - No scleral icterus or injection noted Oral: Moist Mucosa, No Gingival or Mucosal Lesions/ Ulcerations Neck: Supple, No JVD, No Nodes, Trachea Midline Lungs: No rhonchi, No wheeze, No rales, Diminished, - - Symmetric expansion. No dullness to percussion. Cardiovascular: Normal S1, Normal S2, Irregular Rate, Murmur, No rub noted, No Gallop Abdomen: Bowel Sounds Present, Soft, Non Tender, Non-Distended, Obese Extremities: No clubbing, No cyanosis, Edema - Left lower extremity Skin: - Musculoskeletal: No Tenderness to Palpation of Joints or Extremities - No change from previous Lymphatic: No Cervical, Supraclavicular, or Inguinal Adenopathy Neurological: Cranial nerves II-XII grossly intact, Neuro grossly intact, Motor Exam 5/5 strength throughout Psych/Mental Status: Alert and oriented to time, place, person, mood and affect Laboratory Results 04/29/20 07:28: Crossmatch See Detail 04/30/20 11:05: Potassium 5.1, Magnesium 2.3 04/30/20 17:42: Hgb 9.4 L, Hct 31.6 L 04/30/20 17:42: Potassium 5.1 05/01/20 06:45: WBC 9.9, RBC 2.96 L, Hgb 8.7 L, Hct 28.7 L, MCV 97.0, MCH 29.4, MCHC 30.3 L, RDW Std Deviation 59.2 H, RDW Coeff of Leatha 16.7 H, Plt Count 211, MPV 10.9, Immature Gran % (Auto) 1.000 H, Neut % (Auto) 72.7 H, Lymph % (Auto) 9.7 L, Henderson % (Auto) 13.1 H, Eos % (Auto) 2.7, Baso % (Auto) 0.8, Absolute Neuts (auto) 7.2, Absolute Lymphs (auto) 0.96, Nucleated RBC % 0.2 05/01/20 06:45: Sodium 135 L, Potassium 5.4 H, Chloride 105, Carbon Dioxide 25.0, Anion Gap 5, BUN 47 H, Creatinine 1.63 H, Estim Creat Clear Calc 18.78, Est GFR (MDRD) Af Amer 39 L, Est GFR (MDRD) Non-Af 32 L, BUN/Creatinine Ratio 28.8 H, Glucose 113 H, Calcium 8.7 Current Medications Acetaminophen (Acetaminophen 325 Mg Tablet) 650 mg PO Q6H PRN PRN PRN Reason: Pain Score 1-10/Temp > 100.7 F Albuterol/Ipratropium (Ipratropium/Albuterol Sulfate 3 Ml Ampul.Neb) 3 ml INHALATION Q6H.RT SUSAN Last Admin: 05/01/20 06:55 Dose: 3 ml Documented by: Amiodarone HCl (Amiodarone 200 Mg Tablet) 100 mg PO DAILY SUSAN Last Admin: 04/30/20 09:49 Dose: 100 mg Documented by: Hydromorphone HCl (Hydromorphone 0.5 Mg/0.5 Ml Syringe) 0.5 mg IV Q2H PRN PRN PRN Reason: Pain Score 6-10 Last Admin: 04/30/20 21:45 Dose: 0.5 mg Documented by: Sodium Chloride () 1,000 mls @ 60 mls/hr IV .[id number] [facility] Last Admin: 04/30/20 18:58 Dose: 60 mls/hr Documented by: Levothyroxine Sodium (Levothyroxine 125 Mcg Tablet) 125 mcg PO DAILY@0600 [facility] Last Admin: 05/01/20 05:01 Dose: 125 mcg Documented by: Magnesium Hydroxide (Magnesium Hydroxide 30 Ml Udc) 30 ml PO DAILY PRN PRN PRN Reason: Constipation Last Admin: 04/30/20 09:50 Dose: 30 ml Documented by: Metoprolol Tartrate (Metoprolol Tartrate 25 Mg Tablet) 25 mg PO BID [facility] Last Admin: 04/30/20 21:49 Dose: 25 mg Documented by: Ondansetron HCl (Ondansetron 4 Mg/2 Ml Vial) 4 mg IV Q8H PRN PRN PRN Reason: NAUSEA/VOMITING Oxycodone HCl (Oxycodone 5 Mg Tablet) 10 mg PO Q4H PRN PRN PRN Reason: Pain Score 6-10 Last Admin: 04/30/20 18:38 Dose: 10 mg Documented by: Oxycodone HCl (Oxycodone 5 Mg Tablet) 5 mg PO Q4H PRN PRN PRN Reason: Pain Score 4-5 Last Admin: 05/01/20 08:18 Dose: 5 mg Documented by: Pantoprazole Sodium (Pantoprazole Sodium 20 Mg Tablet) 20 mg PO DAILY [facility] Last Admin: 04/30/20 09:50 Dose: 20 mg Documented by: Senna/Docusate Sodium (Senna/Docusate Sodium 1 Tablet) 2 tablet PO BID PRN PRN PRN Reason: Constipation Sodium Chloride (0.9% Saline Lock 10 Ml Syringe) 10 - 40 ml IV UD PRN PRN Reason: SALINE FLUSH Last Admin: 05/01/20 05:02 Dose: 10 ml Documented by: Zolpidem Tartrate (Zolpidem Tartrate 5 Mg Tablet) 5 mg PO QHS PRN PRN PRN Reason: INSOMNIA Medical Necessity - Tobacco Use Smoking Status: Never smoker Assessment/Plan All Active Problems (Last Updated 04/29/20 @ 08:[address] Addison Cooper MD) Acute kidney injury superimposed on CKD (Acute) Fracture of femoral neck, left, closed (Acute) RECOMMENDATIONS: 1. Wean supplemental oxygen to maintain saturations at or above 90%. 2. Okay to proceed with surgery from a pulmonary perspective. Will reevaluate postoperatively 3. Diuretics per cardiology. Consider discontinuation of IV fluids 4. Await orthopedics plan for surgical intervention 5. Potential monitoring in intensive care following surgery 6. Discharge planning IMPRESSIONS: 1. Nondisplaced left hip fracture Orthopedic surgery is following. Patient was on Eliquis and Plavix therapy. Defer timing of surgery to orthopedics. Tentatively scheduled for today at 1. Patient should be optimized from a respiratory standpoint at that time. Patient is on her baseline nasal cannula oxygen at this time. We will have to follow in the perioperative period. Encourage incentive spirometer. May require increased supplemental oxygen in the perioperative period. Cannot exclude the need to monitor in the intensive care unit for 24 hours after surgery. Await postoperative evaluation 2. Chronic hypoxic respiratory failure, likely secondary to previous COVID-19 and CHF Patient with significant infiltrates on chest x-ray. Unclear if this is residual from patient's previous COVID-19. Patient does have an extensive cardiac history. Defer diuretic therapy to cardiology. Echocardiogram does show some decrease in function compared to previous. Patient will likely be highly fluid sensitive. Patient will be at moderate risk for pulmonary complications given recent COVID-19, age and comorbidities. Would not recommend scheduled bronchodilators as this may exacerbate underlying rhythm/rate control. No wheezing noted on exam at this time. 2. History of coronary artery disease status post CABG/bioprosthetic aortic valve/diastolic heart failure/paroxysmal atrial fibrillation Complicates care, management, recovery and prognosis. Continue home medications as indicated. Inpatient E&M: [id number] [facility] L2
[2020-05-01] MEDS: Metoprolol Tartrate 25 MG Tablet PO ×2 (11:02→22:12)
[2020-05-01] MEDS: Amiodarone 200 MG Tablet 100 MG PO (11:03)
[2020-05-01] MEDS: HYDROmorphone 0.5 MG/0.5 ML SYRINGE IV (11:03)
[2020-05-01 12:21] LABS: Potassium 5.4 mmol/L (3.5-5.1)
[2020-05-01] MEDS: Nitroglycerin Oint 1 INCH PACKET TD (13:20)
[2020-05-01] MEDS: Cefazolin 2 GM in 0.9% Normal Saline 100 ML IV (13:25)
--- NOTE | 2020-05-01 13:50 | RAD_ITS ---
STUDY: X-RAY - PELVIS AND LEFT HIP REASON FOR EXAM: Female, 85 years old. FX TECHNIQUE: 3 views of the pelvis and hip. COMPARISON: Comparison is made with prior examination dated 04/29/2020. FINDINGS: Intraoperative imaging provided for ORIF of the left intertrochanteric fracture utilizing intramedullary mahsa fixation and compressive screw device. There is good alignment. RAD/HIP, UNI W/ Pelvis 2-3 Views IMPRESSION: Intraoperative images provided for ORIF of the left intertrochanteric fracture. There is good alignment. Electronically Signed: Manish Zapata MD at 14:58 EDT , Service support ,
[2020-05-01] MEDS: Bupiv/Epi 0.5% Mpf 30 ML Vial (14:49)
--- NOTE | 2020-05-01 15:01 | OP.PCM_ITS ---
Report of Operation Date of Procedure: 05/01/20 Description of Surgical Findings:: Preoperative diagnosis: Left hip displaced basicervical femoral neck fracture Postoperative diagnosis: Same Procedure: Cephalo-medullary fixation left hip Implants: Synthes short nail 125 deg [12] mm diameter [95] mm helical blade 40 m m screw Anesthesia: [General] EBL: 30 Complications: None Condition: Stable to PACU Indication for procedure: 85-year-old female patient with left displaced basicervical femoral neck fracture after having increased pain over the past 3 weeks she admits to a fall last October and last January with pain in the left hip at that time she initially had an x-ray by another facility was told there was no fracture due to the increasing pain she did present to the emergency room where x-rays demonstrated the a forementioned fracture. Patient was on Plavix aspirin and Eliquis which required some delay to initial fracture management and clearances. Treated a low basicervical femoral neck fracture which was amenable to treatment with a cephalomedullary device. risk benefits and alternatives were reviewed including risk of bleeding infection nerve, artery, bone, tissue damage, blood clot need for further surgery and continued pain. Procedure: Patient met in the preoperative holding area once again the operative extremity was identified by both patient and physician and was marked. Patient was met by anesthesia and IV was started . patient was brought back to the to the operating room anesthesia was started. Patient was then positioned on the fracture table all bony prominences were well-padded. patient was then positioned with abduction internal rotation and traction and fluoroscopy was brought in to ensure that an adequate reduction could be performed. Patient was then prepped and draped in usual sterile fashion and timeout was called to ensure the proper patient procedure and extremity were being contemplated. Fluoroscopy was used to kirill the tip of the greater trochanter and a 3 fingerbreadth incision was made 2 finger breaths proximal to the tip of the greater trochanter. Was carried carried down through the skin and subcutaneous tissue as well as the gluteal fascia. Guidepin was then inserted through the tip of the greater trochanter directed towards the level of lesser trochanter this was checked in both AP and lateral projections. An opening reamer was performed. Following this was the insertion of the nail the appropriate height jig was used and a triple trocar sleeve was advanced to the skin and a stab incision was made at the trocar was inserted to the level of the bone and a guidepin was placed into the femoral neck and head checked on both AP and lateral projections. This was then measured and appropriately sized helical blade was inserted the nail was locked proximally the fracture was compressed and a locking screw was placed distally the same incision was extended slightly distally to allow the insertion of the trocar for the transverse screw. This was then drilled and measured under fluoroscopy and the appropriate size screw was inserted. Final AP and lateral projections were saved to the PACS system of the entire construct the wounds were thoroughly irrigated the fascia was closed with #1 [id number] Vicryls followed by 2-0 Vicryl in the subcutaneous tissues followed by jatinder in the skin. 0.5% Marcaine with epinephrine was injected into the subcutaneous tissues dressing was applied form of Xeroform 4 x 4 ABD and Ioban tape. Patient tolerated procedure well there is no intraoperative complications and was brought back to the PACU in stable condition.
--- NOTE | 2020-05-01 15:34 | EKG12_ITS ---
Test Reason : POSTOP Blood Pressure : / mmHG Vent. Rate : 100 BPM Atrial Rate : 111 BPM P-R Int : 000 ms QRS Dur : 128 ms QT Int : 368 ms P-R-T Axes : 000 -43 119 degrees QTc Int : 474 ms Atrial fibrillation Left axis deviation Left bundle branch block Abnormal ECG When compared with ECG of 29-APR-2020 09:42, MANUAL COMPARISON REQUIRED, DATA IS UNCONFIRMED Confirmed by MANPREET JIMENEZ, OZ ([id number]), magazine editor SABRINA FLORES ([id number]) on 05/05/2020 11:04:23 AM Referred By: ZA Confirmed By:OZ CASE MD
--- NOTE | 2020-05-01 15:41 | EKG12_ITS ---
Test Reason : Blood Pressure : / mmHG Vent. 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
[2020-05-01] MEDS: 0.9% Normal Saline 1,000 ML 60 ML IV (16:29)
[2020-05-01] MEDS: Acetaminophen 500 MG Tablet 1000 MG PO (22:13)
[2020-05-01] MEDS: Cefazolin 1 GM/50 ML BAG IV (22:13)
[2020-05-02] VITALS (28 sets, daily range): BP systolic 95–127; BP diastolic 46–94; PULSE 75–109; RESP 16–21; TEMP 36.7–37.1; O2SAT 93–97
[2020-05-02] MEDS: Ipratropium/Albuterol Sulfate 3 ML AMPUL.NEB INHALATION ×4 (00:57→19:54)
[2020-05-02 04:23] LABS: Absolute Lymphocyte Count 1.03 X10^3/uL (0.83-4.51); Absolute Neutrophil Count 8.6 X10^3/uL (2.0-7.7); Basophil# 0.08 X10^3/uL; Basophil% 0.7 % (0-1); Eosinophil# 0.18 X10^3/uL; Eosinophils% 1.6 % (0-5); Hematocrit 29.7 % (37-47); Hemoglobin 9.2 g/dL (12.0-15.0); Lymphocyte # 1.03 X10^3/ul (4.0); Lymphocyte % 9.1 % (19-41); Mean Corpuscular Hgb 29.6 pg (27.0-32.0); Mean Corpuscular Volume 95.5 fL (81-99); Mean Platelet Vol. 10.5 fl (6.2-12.0); Monocyte% 11.5 % (0-10); NRBC Flagged by Analyzer 0 % (0-5); Neutrophil # 8.63 X10^3/uL (2.7-7.7); Neutrophil % 76.1 % (47-70); Platelet Count 224 K/mm3 (150-450); RBC Distribution Width SD 55.5 fl (35.1-43.9); Red Blood Count 3.11 M/mm3 (4.2-5.4); White Blood Count 11.3 K/mm3 (4.4-11.0)
[2020-05-02 04:36] LABS: Anion Gap 6 (5-15); BUN 39 mg/dL (7-18); BUN/Creat Ratio 31.5 RATIO (10-20); Chloride 109 mmol/L (98-107); Creatinine, Serum 1.24 mg/dL (0.55-1.02); EST Glomerular Filtration Rate 44 mL/min (>60); Est Glom Filt Rate - Afr Amer 53 mL/min (>60); Estimated Creatinine Clearance 24.69 ml/min; Glucose 91 mg/dL (74-106); Potassium 4.6 mmol/L (3.5-5.1); Sodium Level 140 mmol/L (136-145)
[2020-05-02] MEDS: Acetaminophen 500 MG Tablet 1000 MG PO ×3 (05:28→21:07)
[2020-05-02] MEDS: Levothyroxine 125 MCG Tablet PO (06:28)
[2020-05-02] MEDS: Cefazolin 1 GM/50 ML BAG IV ×2 (06:28→13:36)
[2020-05-02] MEDS: APIXABAN 2.5 MG TABLET PO ×2 (06:29→21:07)
--- NOTE | 2020-05-02 07:17 | PN_ITS ---
Patient Problems: Active and Suspected Problems (Last Updated 04/29/20 @ 08:[address] Addison Cooper MD) Acute kidney injury superimposed on CKD (Acute) Fracture of femoral neck, left, closed (Acute) Subjective: Patient did well overnight. Patient did have some increased oxygen demands postoperatively, but this appears to be improving. Patient is controlling pain with Tylenol alone. Patient is not reporting any chest pain or dyspnea at rest. Patient does report significant difficulty with standing. - Physical Exam Vitals/I&O's: Vital Signs Temp Pulse Resp BP Pulse Ox 36.9 C 88 16 103/46 L 94 05/02/20 04:00 05/02/20 06:50 05/02/20 06:50 05/02/20 06:00 05/02/20 06:50 Oxygen Flow Rate (L/min) 4 Oxygen Delivery Method Nasal Cannula Weight: 81.6 kg Body Mass Index (BMI) 35.2 Intake and Output for Last 24 Hours 04/30/20 05/01/20 05/02/20 23:59 23:59 23:59 Intake Total 2923 / 3223 1460 / 1460 846 / 846 Output Total 1050 / 1300 1425 / 1825 650 / 650 Balance 1873 / 1923 35 / -365 196 / 196 General: Alert, Oriented x3, Cooperative, No apparent distress, - - Speaking in full sentences. Appears stated age. Obese. HEENT: Atraumatic, PERRLA, EOMI, Normocephalic, - - No scleral icterus or injection noted Oral: Moist Mucosa, No Gingival or Mucosal Lesions/ Ulcerations Neck: Supple, No JVD, No Nodes, Trachea Midline Lungs: No rhonchi, No wheeze, Diminished, Rales - Cough with deep inhalation Cardiovascular: Normal S1, Normal S2, Irregular Rate, Murmur, No rub noted, No Gallop Abdomen: Bowel Sounds Present, Soft, Non Tender, Non-Distended, Obese Extremities: No clubbing, No cyanosis, No edema Skin: Incision - Dressing is clean, dry and intact Musculoskeletal: No Tenderness to Palpation of Joints or Extremities Lymphatic: No Cervical, Supraclavicular, or Inguinal Adenopathy Neurological: Cranial nerves II-XII grossly intact, Neuro grossly intact Psych/Mental Status: Alert and oriented to time, place, person, mood and affect Laboratory Results 04/29/20 07:28: Crossmatch See Detail 05/01/20 06:45: Sodium 135 L, Potassium 5.4 H, Chloride 105, Carbon Dioxide 25.0, Anion Gap 5, BUN 47 H, Creatinine 1.63 H, Estim Creat Clear Calc 18.78, Est GFR (MDRD) Af Amer 39 L, Est GFR (MDRD) Non-Af 32 L, BUN/Creatinine Ratio 28.8 H, Glucose 113 H, Calcium 8.7 05/01/20 12:00: Potassium 5.4 H 05/01/20 16:20: Troponin I 0.231 H 05/01/20 19:35: Troponin I 0.234 H 05/01/20 22:20: Troponin I 0.172 H 05/02/20 01:15: Troponin I 0.175 H 05/02/20 04:10: WBC 11.3 H, RBC 3.11 L, Hgb 9.2 L, Hct 29.7 L, MCV 95.5, MCH 29.6, MCHC 31.0 L, RDW Std Deviation 55.5 H, RDW Coeff of Leatha 16.0 H, Plt Count 224, MPV 10.5, Immature Gran % (Auto) 1.000 H, Neut % (Auto) 76.1 H, Lymph % (Auto) 9.1 L, Dougherty % (Auto) 11.5 H, Eos % (Auto) 1.6, Baso % (Auto) 0.7, Absolute Neuts (auto) 8.6 H, Absolute Lymphs (auto) 1.03, Nucleated RBC % 0 05/02/20 04:10: Sodium 140, Potassium 4.6, Chloride 109 H, Carbon Dioxide 25.0, Anion Gap 6, BUN 39 H, Creatinine 1.24 H, Estim Creat Clear Calc 24.69, Est GFR (MDRD) Af Amer 53 L, Est GFR (MDRD) Non-Af 44 L, BUN/Creatinine Ratio 31.5 H, Glucose 91, Calcium 8.0 L Current Medications Acetaminophen (Acetaminophen 325 Mg Tablet) 650 mg PO Q6H PRN PRN PRN Reason: Pain Score 1-10/Temp > 100.7 F Acetaminophen (Acetaminophen 500 Mg Tablet) 1,000 mg PO Q8 SUSAN Last Admin: 05/02/20 05:28 Dose: 1,000 mg Documented by: Albuterol/Ipratropium (Ipratropium/Albuterol Sulfate 3 Ml Ampul.Neb) 3 ml INHALATION Q6H.RT [facility] Last Admin: 05/02/20 06:49 Dose: 3 ml Documented by: Amiodarone HCl (Amiodarone 200 Mg Tablet) 100 mg PO DAILY [facility] Last Admin: 05/01/20 11:03 Dose: 100 mg Documented by: Apixaban (Apixaban 2.5 Mg Tablet) 2.5 mg PO BID [facility] Last Admin: 05/02/20 06:29 Dose: 2.5 mg Documented by: Hydromorphone HCl (Hydromorphone 0.5 Mg/0.5 Ml Syringe) 0.5 mg IV Q2H PRN PRN PRN Reason: Pain Score 6-10 Last Admin: 05/01/20 11:03 Dose: 0.5 mg Documented by: Sodium Chloride () 1,000 mls @ 60 mls/hr IV .[id number] [facility] Last Infusion: 05/02/20 05:45 Dose: 60 mls/hr Documented by: Cefazolin Sodium () 1 gm in 50 mls @ 100 mls/hr IV Q8 [facility] Last Infusion: 05/02/20 07:05 Dose: Infused Documented by: Levothyroxine Sodium (Levothyroxine 125 Mcg Tablet) 125 mcg PO DAILY@0600 [facility] Last Admin: 05/02/20 06:28 Dose: 125 mcg Documented by: Magnesium Hydroxide (Magnesium Hydroxide 30 Ml Udc) 30 ml PO DAILY PRN PRN PRN Reason: Constipation Last Admin: 04/30/20 09:50 Dose: 30 ml Documented by: Metoprolol Tartrate (Metoprolol Tartrate 25 Mg Tablet) 25 mg PO BID [facility] Last Admin: 05/01/20 22:12 Dose: 25 mg Documented by: Ondansetron HCl (Ondansetron 4 Mg/2 Ml Vial) 4 mg IV Q8H PRN PRN PRN Reason: NAUSEA/VOMITING Oxycodone HCl (Oxycodone 5 Mg Tablet) 10 mg PO Q4H PRN PRN PRN Reason: Pain Score 6-10 Last Admin: 04/30/20 18:38 Dose: 10 mg Documented by: Oxycodone HCl (Oxycodone 5 Mg Tablet) 5 mg PO Q4H PRN PRN PRN Reason: Pain Score 4-5 Last Admin: 05/01/20 08:18 Dose: 5 mg Documented by: Pantoprazole Sodium (Pantoprazole Sodium 20 Mg Tablet) 20 mg PO DAILY [facility] Last Admin: 05/01/20 11:48 Dose: Not Given Documented by: Senna/Docusate Sodium (Senna/Docusate Sodium 1 Tablet) 2 tablet PO BID PRN PRN PRN Reason: Constipation Sodium Chloride (0.9% Saline Lock 10 Ml Syringe) 10 - 40 ml IV UD PRN PRN Reason: SALINE FLUSH Last Admin: 05/01/20 05:02 Dose: 10 ml Documented by: Zolpidem Tartrate (Zolpidem Tartrate 5 Mg Tablet) 5 mg PO QHS PRN PRN PRN Reason: INSOMNIA Clinical Impression(s) from Imaging Studies Hip/Pelvis X-Ray 05/01/20 13:50 IMPRESSION: Intraoperative images provided for ORIF of the left intertrochanteric fracture. There is good alignment. Electronically Signed: Manish Zapata MD at 14:58 EDT , Service support , Medical Necessity - Tobacco Use Smoking Status: Never smoker Assessment/Plan All Active Problems (Last Updated 04/29/20 @ 08:[address] Addison Cooper MD) Acute kidney injury superimposed on CKD (Acute) Fracture of femoral neck, left, closed (Acute) RECOMMENDATIONS: 1. Wean supplemental oxygen to maintain saturations at or above 90%. 2. Encourage incentive spirometer 3. Diuretics per cardiology. Continue IV fluids 4. Therapy plan per orthopedics 5. Okay to leave the intensive care unit from my perspective 6. Discharge planning IMPRESSIONS: 1. Nondisplaced left hip fracture status post ORIF day #1 Orthopedic surgery is following. Patient was on Eliquis and Plavix therapy. Patient tolerated intervention well. Likely okay to reinitiate Eliquis from my perspective, but defer to orthopedics. Patient was able to stand yesterday. PT/OT per orthopedic recommendations. Patient does have anemia, but does not appear to be significantly worse this morning compared to preoperative labs. 2. Chronic hypoxic respiratory failure, likely secondary to previous COVID- 19 and CHF Patient with significant infiltrates on chest x-ray. Unclear if this is residual from patient's previous COVID-19. Patient does have an extensive cardiac history. Defer diuretic therapy to cardiology. Echocardiogram does show some decrease in function compared to previous. Will discontinue IV fluids. Diuretics per cardiology. Would not recommend scheduled bronchodilators as this may exacerbate underlying rhythm/rate control. No wheezing noted on exam at this time. 2. History of coronary artery disease status post CABG/bioprosthetic aortic valve/diastolic heart failure/paroxysmal atrial fibrillation Complicates care, management, recovery and prognosis. Continue home medications as indicated. Inpatient E&M: [id number] [facility] L2
--- NOTE | 2020-05-02 07:33 | PCM.PN.ORT ---
Patient Problems: Active and Suspected Problems (Last Updated 04/29/20 @ 08:[address] Addison Cooper MD) Acute kidney injury superimposed on CKD (Acute) Fracture of femoral neck, left, closed (Acute) Subjective: Patient seen and examined doing well this morning alert and oriented no complaints - Physical Exam Vitals/I&O's: Vital Signs Temp Pulse Resp BP Pulse Ox 98.4 F 88 16 103/46 L 94 05/02/20 04:00 05/02/20 06:50 05/02/20 06:50 05/02/20 06:00 05/02/20 06:50 Oxygen Flow Rate (L/min) 4 Oxygen Delivery Method Nasal Cannula Weight: 179 lb 14.355 oz Body Mass Index (BMI) 35.2 Intake and Output for Last 24 Hours 04/30/20 05/01/20 05/02/20 23:59 23:59 23:59 Intake Total 2923 / 3223 1460 / 1460 846 / 846 Output Total 1050 / 1300 1425 / 1825 650 / 650 Balance 1873 / 1923 35 / -365 196 / 196 General: Alert, Oriented x3, Cooperative, No apparent distress Extremities: - - Left hip dressing clean dry and intact compartments soft neurovascular intact palpable pedal pulses Laboratory Results 04/29/20 07:28: Crossmatch See Detail 05/01/20 06:45: Sodium 135 L, Potassium 5.4 H, Chloride 105, Carbon Dioxide 25.0, Anion Gap 5, BUN 47 H, Creatinine 1.63 H, Estim Creat Clear Calc 18.78, Est GFR (MDRD) Af Amer 39 L, Est GFR (MDRD) Non-Af 32 L, BUN/Creatinine Ratio 28.8 H, Glucose 113 H, Calcium 8.7 05/01/20 12:00: Potassium 5.4 H 05/01/20 16:20: Troponin I 0.231 H 05/01/20 19:35: Troponin I 0.234 H 05/01/20 22:20: Troponin I 0.172 H 05/02/20 01:15: Troponin I 0.175 H 05/02/20 04:10: WBC 11.3 H, RBC 3.11 L, Hgb 9.2 L, Hct 29.7 L, MCV 95.5, MCH 29.6, MCHC 31.0 L, RDW Std Deviation 55.5 H, RDW Coeff of Leatha 16.0 H, Plt Count 224, MPV 10.5, Immature Gran % (Auto) 1.000 H, Neut % (Auto) 76.1 H, Lymph % (Auto) 9.1 L, [place] % (Auto) 11.5 H, Eos % (Auto) 1.6, Baso % (Auto) 0.7, Absolute Neuts (auto) 8.6 H, Absolute Lymphs (auto) 1.03, Nucleated RBC % 0 05/02/20 04:10: Sodium 140, Potassium 4.6, Chloride 109 H, Carbon Dioxide 25.0, Anion Gap 6, BUN 39 H, Creatinine 1.24 H, Estim Creat Clear Calc 24.69, Est GFR (MDRD) Af Amer 53 L, Est GFR (MDRD) Non-Af 44 L, BUN/Creatinine Ratio 31.5 H, Glucose 91, Calcium 8.0 L Current Medications Acetaminophen (Acetaminophen 325 Mg Tablet) 650 mg PO Q6H PRN PRN PRN Reason: Pain Score 1-10/Temp > 100.7 F Acetaminophen (Acetaminophen 500 Mg Tablet) 1,000 mg PO Q8 [facility] Last Admin: 05/02/20 05:28 Dose: 1,000 mg Documented by: Albuterol/Ipratropium (Ipratropium/Albuterol Sulfate 3 Ml Ampul.Neb) 3 ml INHALATION Q6H.RT [facility] Last Admin: 05/02/20 06:49 Dose: 3 ml Documented by: Amiodarone HCl (Amiodarone 200 Mg Tablet) 100 mg PO DAILY [facility] Last Admin: 05/01/20 11:03 Dose: 100 mg Documented by: Apixaban (Apixaban 2.5 Mg Tablet) 2.5 mg PO BID [facility] Last Admin: 05/02/20 06:29 Dose: 2.5 mg Documented by: Hydromorphone HCl (Hydromorphone 0.5 Mg/0.5 Ml Syringe) 0.5 mg IV Q2H PRN PRN PRN Reason: Pain Score 6-10 Last Admin: 05/01/20 11:03 Dose: 0.5 mg Documented by: Sodium Chloride () 1,000 mls @ 0 mls/hr IV .[id number] [facility] Last Infusion: 05/02/20 05:45 Dose: 60 mls/hr Documented by: Cefazolin Sodium () 1 gm in 50 mls @ 100 mls/hr IV Q8 [facility] Stop: 05/02/20 14:29 Last Infusion: 05/02/20 07:05 Dose: Infused Documented by: Levothyroxine Sodium (Levothyroxine 125 Mcg Tablet) 125 mcg PO DAILY@0600 [facility] Last Admin: 05/02/20 06:28 Dose: 125 mcg Documented by: Magnesium Hydroxide (Magnesium Hydroxide 30 Ml Udc) 30 ml PO DAILY PRN PRN PRN Reason: Constipation Last Admin: 04/30/20 09:50 Dose: 30 ml Documented by: Metoprolol Tartrate (Metoprolol Tartrate 25 Mg Tablet) 25 mg PO BID [facility] Last Admin: 05/01/20 22:12 Dose: 25 mg Documented by: Ondansetron HCl (Ondansetron 4 Mg/2 Ml Vial) 4 mg IV Q8H PRN PRN PRN Reason: NAUSEA/VOMITING Oxycodone HCl (Oxycodone 5 Mg Tablet) 10 mg PO Q4H PRN PRN PRN Reason: Pain Score 6-10 Last Admin: 04/30/20 18:38 Dose: 10 mg Documented by: Oxycodone HCl (Oxycodone 5 Mg Tablet) 5 mg PO Q4H PRN PRN PRN Reason: Pain Score 4-5 Last Admin: 05/01/20 08:18 Dose: 5 mg Documented by: Pantoprazole Sodium (Pantoprazole Sodium 20 Mg Tablet) 20 mg PO DAILY [facility] Last Admin: 05/01/20 11:48 Dose: Not Given Documented by: Senna/Docusate Sodium (Senna/Docusate Sodium 1 Tablet) 2 tablet PO BID PRN PRN PRN Reason: Constipation Sodium Chloride (0.9% Saline Lock 10 Ml Syringe) 10 - 40 ml IV UD PRN PRN Reason: SALINE FLUSH Last Admin: 05/01/20 05:02 Dose: 10 ml Documented by: Zolpidem Tartrate (Zolpidem Tartrate 5 Mg Tablet) 5 mg PO QHS PRN PRN PRN Reason: INSOMNIA Medical Necessity - Tobacco Use Smoking Status: Never smoker Assessment/Plan All Active Problems (Last Updated 04/29/20 @ 08:[address] Addison Cooper MD) Acute kidney injury superimposed on CKD (Acute) Fracture of femoral neck, left, closed (Acute) Postop day #1 left basicervical femoral neck fracture status post TFN No intraoperative complications Okay to resume Eliquis this morning SCDs and BECCA mabry PT OT weightbearing as tolerated, instructed to apply as much weight as comfortable not to force if having excessive pain Dressing to remain on and undisturbed for 72 hours postop, then may remove for daily shower and change bandage daily at that time. Allow warm soapy water over incision after 72 hours postop and shower but do not submerge in tub Follow-up in office 2 weeks for wound check and staple removal call with any questions or concerns.
[2020-05-02] MEDS: oxyCODONE 5 MG Tablet 10 MG PO ×3 (08:25→21:06)
--- NOTE | 2020-05-02 09:21 | PCM.PROGNOTE ---
Patient Problems: Active and Suspected Problems (Last Updated 04/29/20 @ 08:[address] Addison Cooper MD) Acute kidney injury superimposed on CKD (Acute) Fracture of femoral neck, left, closed (Acute) Subjective: Chief complaint: Follow-up after admission for subacute traumatic left femoral neck fracture, EL on CKD and acute on chronic anemia. Patient seen and examined. No acute events overnight. This morning, she was able to stand up and walk to the chair. Currently, she is on her chair, comfortable, no pain. Denied shortness of breath or chest pain. She is afebrile, blood pressures are good heart rate are stable, pulse ox is 95% on 4 L. - Physical Exam Vitals/I&O's: Vital Signs Temp Pulse Resp BP Pulse Ox 98.4 F 88 16 103/46 L 94 05/02/20 04:00 05/02/20 06:50 05/02/20 06:50 05/02/20 06:00 05/02/20 06:50 Oxygen Flow Rate (L/min) 4 Oxygen Delivery Method Nasal Cannula Weight: 179 lb 14.355 oz Body Mass Index (BMI) 35.2 Intake and Output for Last 24 Hours 04/30/20 05/01/20 05/02/20 23:59 23:59 23:59 Intake Total 2923 / 3223 1460 / 1460 846 / 846 Output Total 1050 / 1300 1425 / 1825 650 / 650 Balance 1873 / 1923 35 / -365 196 / 196 General: Alert, Oriented x3, Cooperative, No apparent distress HEENT: Atraumatic, PERRLA, EOMI, Normocephalic Oral: Moist Mucosa, No Gingival or Mucosal Lesions/ Ulcerations Neck: Supple, No JVD, Negative Carotid Bruits, Trachea Midline, Thyroid Normal Size and Texture Lungs: Clear to auscultation, No rhonchi, No wheeze, No rales, Diminished Cardiovascular: Regular rate, Regular Rhythm, Normal S1, Normal S2, PMI Normal Abdomen: Bowel Sounds Present, Soft, Non Tender, Non-Distended, No Hepato-splenomegaly Extremities: No clubbing, No cyanosis, Edema Skin: No rashes, No breakdown Lymphatic: No Cervical, Supraclavicular, or Inguinal Adenopathy Neurological: Cranial nerves II-XII grossly intact, Neuro grossly intact Psych/Mental Status: Normal Affect, Appropriate, Alert and oriented to time, place, person, mood and affect Laboratory Results 04/29/20 07:28: Crossmatch See Detail 05/01/20 12:00: Potassium 5.4 H 05/01/20 16:20: Troponin I 0.231 H 05/01/20 19:35: Troponin I 0.234 H 05/01/20 22:20: Troponin I 0.172 H 05/02/20 01:15: Troponin I 0.175 H 05/02/20 04:10: WBC 11.3 H, RBC 3.11 L, Hgb 9.2 L, Hct 29.7 L, MCV 95.5, MCH 29.6, MCHC 31.0 L, RDW Std Deviation 55.5 H, RDW Coeff of Leatha 16.0 H, Plt Count 224, MPV 10.5, Immature Gran % (Auto) 1.000 H, Neut % (Auto) 76.1 H, Lymph % (Auto) 9.1 L, [place] % (Auto) 11.5 H, Eos % (Auto) 1.6, Baso % (Auto) 0.7, Absolute Neuts (auto) 8.6 H, Absolute Lymphs (auto) 1.03, Nucleated RBC % 0 05/02/20 04:10: Sodium 140, Potassium 4.6, Chloride 109 H, Carbon Dioxide 25.0, Anion Gap 6, BUN 39 H, Creatinine 1.24 H, Estim Creat Clear Calc 24.69, Est GFR (MDRD) Af Amer 53 L, Est GFR (MDRD) Non-Af 44 L, BUN/Creatinine Ratio 31.5 H, Glucose 91, Calcium 8.0 L Current Medications Acetaminophen (Acetaminophen 325 Mg Tablet) 650 mg PO Q6H PRN PRN PRN Reason: Pain Score 1-10/Temp > 100.7 F Acetaminophen (Acetaminophen 500 Mg Tablet) 1,000 mg PO Q8 [facility] Last Admin: 05/02/20 05:28 Dose: 1,000 mg Documented by: Albuterol/Ipratropium (Ipratropium/Albuterol Sulfate 3 Ml Ampul.Neb) 3 ml INHALATION Q6H.RT [facility] Last Admin: 05/02/20 06:49 Dose: 3 ml Documented by: Amiodarone HCl (Amiodarone 200 Mg Tablet) 100 mg PO DAILY [facility] Last Admin: 05/01/20 11:03 Dose: 100 mg Documented by: Apixaban (Apixaban 2.5 Mg Tablet) 2.5 mg PO BID [facility] Last Admin: 05/02/20 06:29 Dose: 2.5 mg Documented by: Hydromorphone HCl (Hydromorphone 0.5 Mg/0.5 Ml Syringe) 0.5 mg IV Q2H PRN PRN PRN Reason: Pain Score 6-10 Last Admin: 05/01/20 11:03 Dose: 0.5 mg Documented by: Sodium Chloride () 1,000 mls @ 0 mls/hr IV .[id number] [facility] Last Infusion: 05/02/20 05:45 Dose: 60 mls/hr Documented by: Cefazolin Sodium () 1 gm in 50 mls @ 100 mls/hr IV Q8 [facility] Stop: 05/02/20 14:29 Last Infusion: 05/02/20 07:05 Dose: Infused Documented by: Levothyroxine Sodium (Levothyroxine 125 Mcg Tablet) 125 mcg PO DAILY@0600 [facility] Last Admin: 05/02/20 06:28 Dose: 125 mcg Documented by: Magnesium Hydroxide (Magnesium Hydroxide 30 Ml Udc) 30 ml PO DAILY PRN PRN PRN Reason: Constipation Last Admin: 04/30/20 09:50 Dose: 30 ml Documented by: Metoprolol Tartrate (Metoprolol Tartrate 25 Mg Tablet) 25 mg PO BID [facility] Last Admin: 05/01/20 22:12 Dose: 25 mg Documented by: Ondansetron HCl (Ondansetron 4 Mg/2 Ml Vial) 4 mg IV Q8H PRN PRN PRN Reason: NAUSEA/VOMITING Oxycodone HCl (Oxycodone 5 Mg Tablet) 10 mg PO Q4H PRN PRN PRN Reason: Pain Score 6-10 Last Admin: 05/02/20 08:25 Dose: 10 mg Documented by: Oxycodone HCl (Oxycodone 5 Mg Tablet) 5 mg PO Q4H PRN PRN PRN Reason: Pain Score 4-5 Last Admin: 05/01/20 08:18 Dose: 5 mg Documented by: Pantoprazole Sodium (Pantoprazole Sodium 20 Mg Tablet) 20 mg PO DAILY [facility] Last Admin: 05/01/20 11:48 Dose: Not Given Documented by: Senna/Docusate Sodium (Senna/Docusate Sodium 1 Tablet) 2 tablet PO BID PRN PRN PRN Reason: Constipation Sodium Chloride (0.9% Saline Lock 10 Ml Syringe) 10 - 40 ml IV UD PRN PRN Reason: SALINE FLUSH Last Admin: 05/01/20 05:02 Dose: 10 ml Documented by: Zolpidem Tartrate (Zolpidem Tartrate 5 Mg Tablet) 5 mg PO QHS PRN PRN PRN Reason: INSOMNIA Medical Necessity - Tobacco Use Smoking Status: Never smoker Assessment/Plan All Active Problems (Last Updated 04/29/20 @ 08:[address] Addison Cooper MD) Acute kidney injury superimposed on CKD (Acute) Fracture of femoral neck, left, closed (Acute) This is an 85 years old female patient presented to the emergency room because of left hip pain that has been going on for 3 months, got worse over the last 3 weeks, had mechanical fall around [place] 2019 and she was found to have subacute left femoral neck fracture, EL on CKD and acute on chronic anemia. #1 Subacute traumatic left basicervical femoral neck fracture: Status post cephalomedullary nail fixation of the left hip, postoperative day 1. She is on IV cefazolin for perioperative prophylaxis. She is on IV Dilaudid and OxyIR as needed for pain. Her pain is well controlled. She has been afebrile, other vital signs are stable. Orthopedic surgery is on the case. Plan to transfer to [facility] floor. #2 acute kidney injury on top of stage III chronic kidney disease: She has been off IV fluids. Baseline creatinine has been around 1.4 to 1.7 mg/dL. Admission creatinine is 2.78, today's creatinine is 1.24, continue to improve and it is back to baseline. #3 acute on chronic anemia: Baseline hemoglobin is been around 10 g/dL, it is normocytic anemia. Hemoglobin went down to 7.7 g/dL, attributed to hemodilution. No active bleeding. She received 1 unit of packed RBCs, today's hemoglobin is 9.2 g/dL. Plan to repeat CBC tomorrow morning. #4 Perioperative course: Patient underwent surgical repair of the left femoral neck fracture. So far, no major complications. She received blood transfusion and hemoglobin stabilized. Currently, she is on 4 L of oxygen, she has been on 2 L since February because of COVID-19 pneumonia. Troponins are minimally elevated and trending down. Patient denied any chest pain. It is secondary to demand ischemia. 2D echocardiogram revealed ejection fraction of 40 to 45%, mild MR, moderate TR, normal bioprosthetic aortic valve. #5 mild hyperkalemia: Today's potassium is 4.6. It is back to normal. Kidney function is improving. #6 status post recent COVID-19 pneumonia/respiratory failure: Patient was admitted on February 2020 for COVID-19 completed treatment with IV remdesivir and p.o. Decadron, was readmitted again after worsening symptoms on March, and discharged on home oxygen at 2 L and she has been on 2 L since then. Chest x-ray reviewed as above. Currently, she is on 4 L of oxygen. She is on DuoNeb every 6 hours. Plan to wean off oxygen as tolerated. #7 CAD status post CABG and stents: EKG reviewed, no acute changes. She is on metoprolol. Lisinopril and Plavix are on hold. #8 status post aortic valve replacement with bioprosthetic valve: 2D echocardiogram reviewed as above, bioprosthetic aortic valve apparatus is stable. #9 hypertension: Blood pressure stable, continue metoprolol. Lisinopril and Norvasc held. . #10 paroxysmal atrial fibrillation: Currently, rate has been around 100, continue amiodarone and metoprolol for rate control, started back on Eliquis. 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 Continue metoprolol. Keep holding Lasix and lisinopril for now. #11 CODE STATUS: Full code. Discussed with the patient and her . #12 DVT prophylaxis: Continue Eliquis. This note was generated with [employer] dictation software. It may contain incorrect words, spelling, and punctuation that were not noted in checking the note before signing. Inpatient E&M: 27133 Subs Hosp L2
[2020-05-02] MEDS: Metoprolol Tartrate 25 MG Tablet PO ×2 (09:43→21:07)
[2020-05-02] MEDS: Pantoprazole Sodium 20 MG Tablet PO (09:43)
[2020-05-02] MEDS: Amiodarone 200 MG Tablet 100 MG PO (09:43)
[2020-05-02] MEDS: 0.9% Saline Lock 10 ML Syringe IV (14:17)
--- NOTE | 2020-05-02 15:32 | CASEMGMT ---
Social Work Note SW updated that PT/OT are recommending [facility] at discharge. SW in to speak with pt. SW introduced self and role at [facility]. Pt is alert and orientated. SW updated pt that PT/OT are recommending [facility] at discharge. Patient was provided a list of SNF & IRF providers including quality and resource use data and consistent with the patient?s preferred geographic region, medical needs, and insurance network. Pt agreeable to [facility] RU. Pt then states her HHC ([facility]) called in asking if she wanted to continue HHC with them once she leaves the hospital. SW explained that it is pt's choice what she wants to do at discharge but again reiterated that PT/OT are recommending [facility]. Pt agreeable to this worker making referral to [facility] RU and seeing if her insurance will approve it. SHAR informed pt that if on the day of discharge if she wants to change plans and return home she is able to do so again it just depends on what she feels she needs at discharge. Pt states understanding. SHAR placed a call to Christy with [facility] and provided referral. Christy states RU is able to accept Tuesday pending insurance authorization. SHAR placed a call to Lisa at [facility] and left message regarding referral. SHAR faxed referral. SHAR received call from Ella at [facility] stating pt was approved for RU, RU just needs to submit updated clinicals on Tuesday. SHAR placed a call to Christy with [facility] and left message updating her. SHAR also emailed Christy to let her know as well. SHAR in to speak with pt. SW updated pt that insurance approved RU. Pt states she would like to speak to her regarding discharge plans. pt states her should be in soon. SW informed pt that if her is at [facility] after this worker leaves for the day then SHAR Can follow up with pt tomorrow. Pt states understanding. Plan: RU Tuesday vs Home with C Yohana Burdick SERVICE PLUMBER, RN PLASTIC SURGERY
--- NOTE | 2020-05-02 17:04 | CASEMGMT ---
Social Work Note Pt's Jonah is at [facility]. SW in to speak with pt and Jonah. SW introduced self and role at [facility]. SW informed Jonah that PT/OT are recommending RU and pt was assist of 1-2 with PT/OT today. SHAR updated Jonah that pt was approved for [facility] and pt can admit to [facility] RU Tuesday. Both pt and Jonah are agreeable to pt admitting to [facility] RU Tuesday. Jonah states he would like to visit with pt on Tuesday before pt moves over to [facility]. SHAR placed Green Sheet on chart. Plan: RU Tuesday. Yohana Burdick CERTIFIED DIETARY MANAGER, NEEDLE STRAIGHTENER
[2020-05-02] MEDS: Senna/Docusate Sodium 1 Tablet 2 TABLET PO (21:06)
[2020-05-03] VITALS (13 sets, daily range): BP systolic 97–132; BP diastolic 43–67; PULSE 78–106; RESP 16–18; TEMP 36.5–37.1; O2SAT 92–98
[2020-05-03 05:56] LABS: Absolute Lymphocyte Count 0.95 X10^3/uL (0.83-4.51); Absolute Neutrophil Count 6.9 X10^3/uL (2.0-7.7); Basophil# 0.06 X10^3/uL; Basophil% 0.6 % (0-1); Eosinophil# 0.32 X10^3/uL; Eosinophils% 3.3 % (0-5); Hematocrit 27.6 % (37-47); Hemoglobin 8.3 g/dL (12.0-15.0); Lymphocyte # 0.95 X10^3/ul (4.0); Lymphocyte % 9.9 % (19-41); Mean Corp Hgb Conc 30.1 g/dL (32-36); Mean Corpuscular Hgb 28.8 pg (27.0-32.0); Mean Corpuscular Volume 95.8 fL (81-99); Mean Platelet Vol. 10.1 fl (6.2-12.0); Monocyte# 1.26 X10^3/uL; Monocyte% 13.1 % (0-10); NRBC Flagged by Analyzer 0 % (0-5); Neutrophil # 6.91 X10^3/uL (2.7-7.7); Neutrophil % 72.1 % (47-70); Platelet Count 213 K/mm3 (150-450); RBC Distribution Width CV 15.9 % (11.6-14.6); RBC Distribution Width SD 55.5 fl (35.1-43.9); Red Blood Count 2.88 M/mm3 (4.2-5.4); White Blood Count 9.6 K/mm3 (4.4-11.0)
[2020-05-03] MEDS: Levothyroxine 125 MCG Tablet PO (06:11)
[2020-05-03] MEDS: Acetaminophen 500 MG Tablet 1000 MG PO ×3 (06:11→22:10)
--- NOTE | 2020-05-03 07:24 | PN_ITS ---
Patient Problems: Active and Suspected Problems (Last Updated 04/29/20 @ 08:[address] Addison Cooper MD) Acute kidney injury superimposed on CKD (Acute) Fracture of femoral neck, left, closed (Acute) Subjective: Patient transferred out of the intensive care unit yesterday. Patient feels subjectively slightly improved compared to yesterday. Patient states that she is standing well, but still having difficulty with ambulation. Patient is not reporting any chest pain or change in cough. - Physical Exam Vitals/I&O's: Vital Signs Temp Pulse Resp BP Pulse Ox 36.6 C 86 18 102/43 L 96 05/03/20 06:07 05/03/20 06:07 05/03/20 06:07 05/03/20 06:07 05/03/20 06:07 Oxygen Flow Rate (L/min) 3 Oxygen Delivery Method Nasal Cannula Weight: 86.7 kg Body Mass Index (BMI) 35.2 Intake and Output for Last 24 Hours 05/01/20 05/02/20 05/03/20 23:59 23:59 23:59 Intake Total 1460 / 1460 1853 / 1853 0 / 0 Output Total 1425 / 1825 1250 / 1250 200 / 200 Balance 35 / -365 603 / 603 -200 / -200 General: Alert, Oriented x3, Cooperative, No apparent distress, - - No conversational dyspnea HEENT: Atraumatic, PERRLA, EOMI, Normocephalic, - - No scleral icterus or injection noted. Supplemental oxygen in place. Oral: Moist Mucosa, No Gingival or Mucosal Lesions/ Ulcerations Neck: Supple, No JVD, No Nodes, Trachea Midline Lungs: No rhonchi, No wheeze, No rales, Diminished, - - Symmetric expansion Cardiovascular: Normal S1, Normal S2, Irregular Rate, Murmur, No rub noted, No Gallop Abdomen: Bowel Sounds Present, Soft, Non Tender, Non-Distended Extremities: No clubbing, No cyanosis, Edema - Trace to 1+ left lower extremity Skin: Incision - Clean, dry and intact Musculoskeletal: No Tenderness to Palpation of Joints or Extremities Lymphatic: No Cervical, Supraclavicular, or Inguinal Adenopathy Neurological: Cranial nerves II-XII grossly intact, Neuro grossly intact, Motor Exam 5/5 strength throughout Psych/Mental Status: Alert and oriented to time, place, person, mood and affect Laboratory Results 05/03/20 05:45: WBC 9.6, RBC 2.88 L, Hgb 8.3 L, Hct 27.6 L, MCV 95.8, MCH 28.8, MCHC 30.1 L, RDW Std Deviation 55.5 H, RDW Coeff of Leatha 15.9 H, Plt Count 213, MPV 10.1, Immature Gran % (Auto) 1.000 H, Neut % (Auto) 72.1 H, Lymph % (Auto) 9.9 L, [place] % (Auto) 13.1 H, Eos % (Auto) 3.3, Baso % (Auto) 0.6, Absolute Neuts (auto) 6.9, Absolute Lymphs (auto) 0.95, Nucleated RBC % 0 Current Medications Acetaminophen (Acetaminophen 325 Mg Tablet) 650 mg PO Q6H PRN PRN PRN Reason: Pain Score 1-10/Temp > 100.7 F Acetaminophen (Acetaminophen 500 Mg Tablet) 1,000 mg PO Q8 [facility] Last Admin: 05/03/20 06:11 Dose: 1,000 mg Documented by: Albuterol/Ipratropium (Ipratropium/Albuterol Sulfate 3 Ml Ampul.Neb) 3 ml INHALATION Q6H.RT [facility] Last Admin: 05/02/20 19:54 Dose: 3 ml Documented by: Amiodarone HCl (Amiodarone 200 Mg Tablet) 100 mg PO DAILY [facility] Last Admin: 05/02/20 09:43 Dose: 100 mg Documented by: Apixaban (Apixaban 2.5 Mg Tablet) 2.5 mg PO BID [facility] Last Admin: 05/02/20 21:07 Dose: 2.5 mg Documented by: Hydromorphone HCl (Hydromorphone 0.5 Mg/0.5 Ml Syringe) 0.5 mg IV Q2H PRN PRN PRN Reason: Pain Score 6-10 Last Admin: 05/01/20 11:03 Dose: 0.5 mg Documented by: Sodium Chloride () 250 mls @ 15 mls/hr IV .[id number] PRN PRN Reason: Saline Flush Last Infusion: 05/02/20 14:18 Dose: 0 mls/hr Documented by: Levothyroxine Sodium (Levothyroxine 125 Mcg Tablet) 125 mcg PO DAILY@0600 [facility] Last Admin: 05/03/20 06:11 Dose: 125 mcg Documented by: Magnesium Hydroxide (Magnesium Hydroxide 30 Ml Udc) 30 ml PO DAILY PRN PRN PRN Reason: Constipation Last Admin: 04/30/20 09:50 Dose: 30 ml Documented by: Metoprolol Tartrate (Metoprolol Tartrate 25 Mg Tablet) 25 mg PO BID [facility] Last Admin: 05/02/20 21:07 Dose: 25 mg Documented by: Ondansetron HCl (Ondansetron 4 Mg/2 Ml Vial) 4 mg IV Q8H PRN PRN PRN Reason: NAUSEA/VOMITING Oxycodone HCl (Oxycodone 5 Mg Tablet) 10 mg PO Q4H PRN PRN PRN Reason: Pain Score 6-10 Last Admin: 05/02/20 21:06 Dose: 10 mg Documented by: Oxycodone HCl (Oxycodone 5 Mg Tablet) 5 mg PO Q4H PRN PRN PRN Reason: Pain Score 4-5 Last Admin: 05/01/20 08:18 Dose: 5 mg Documented by: Pantoprazole Sodium (Pantoprazole Sodium 20 Mg Tablet) 20 mg PO DAILY [facility] Last Admin: 05/02/20 09:43 Dose: 20 mg Documented by: Senna/Docusate Sodium (Senna/Docusate Sodium 1 Tablet) 2 tablet PO BID PRN PRN PRN Reason: Constipation Last Admin: 05/02/20 21:06 Dose: 2 tablet Documented by: Sodium Chloride (0.9% Saline Lock 10 Ml Syringe) 10 - 40 ml IV UD PRN PRN Reason: SALINE FLUSH Last Admin: 05/02/20 14:17 Dose: 10 ml Documented by: Zolpidem Tartrate (Zolpidem Tartrate 5 Mg Tablet) 5 mg PO QHS PRN PRN PRN Reason: INSOMNIA Medical Necessity - Tobacco Use Smoking Status: Never smoker Assessment/Plan All Active Problems (Last Updated 04/29/20 @ 08:[address] Addison Cooper MD) Acute kidney injury superimposed on CKD (Acute) Fracture of femoral neck, left, closed (Acute) RECOMMENDATIONS: 1. Wean supplemental oxygen to maintain saturations at or above 90%. 2. Encourage incentive spirometer 3. Diuretics per cardiology. Discontinue IV fluids 4. Therapy plan per orthopedics 5. Discharge planning IMPRESSIONS: 1. Nondisplaced left hip fracture status post ORIF day #2 Orthopedic surgery is following. Patient was on Eliquis and Plavix therapy. Patient tolerated intervention well. Tolerating anticoagulation.. Patient was able to stand yesterday. PT/OT per orthopedic recommendations. Patient does have anemia, but does not appear to be significantly worse this morning compared to preoperative labs. 2. Chronic hypoxic respiratory failure, likely secondary to previous COVID- 19 and CHF Patient with significant infiltrates on chest x-ray. Unclear if this is residual from patient's previous COVID-19. Patient does have an extensive cardiac history. Defer diuretic therapy to cardiology. Echocardiogram does show some decrease in function compared to previous. Diuretics per cardiology. Would not recommend scheduled bronchodilators as this may exacerbate underlying rhythm/rate control. No wheezing noted on exam at this time. Patient appears to be responding well and could be transferred to TCU from my perspective 2. History of coronary artery disease status post CABG/bioprosthetic aortic valve/diastolic heart failure/paroxysmal atrial fibrillation Complicates care, management, recovery and prognosis. Continue home medications as indicated. Inpatient E&M: 64541 Subs Hosp L2
[2020-05-03] MEDS: Ipratropium/Albuterol Sulfate 3 ML AMPUL.NEB INHALATION ×3 (07:32→19:31)
--- NOTE | 2020-05-03 08:43 | PCM.PROGNOTE ---
Patient Problems: Active and Suspected Problems (Last Updated 04/29/20 @ 08:[address] Addison Cooper MD) Acute kidney injury superimposed on CKD (Acute) Fracture of femoral neck, left, closed (Acute) Subjective: Chief complaint: Follow-up after admission for subacute traumatic left femoral neck fracture, EL on CKD and acute on chronic anemia. Patient seen and examined. No acute events overnight. She is complaining of pain with physical therapy, 7 out of 10 in severity. She has no pain at rest. Also, she is feeling better. She has been afebrile, blood pressure and heart rate are stable, pulse ox is 92% on 3 L. - Physical Exam Vitals/I&O's: Vital Signs Temp Pulse Resp BP Pulse Ox 97.9 F 85 18 102/43 L 92 05/03/20 06:07 05/03/20 07:34 05/03/20 07:34 05/03/20 06:07 05/03/20 07:34 Oxygen Flow Rate (L/min) 3 Oxygen Delivery Method Nasal Cannula Weight: 191 lb 2.252 oz Body Mass Index (BMI) 35.2 Intake and Output for Last 24 Hours 05/01/20 05/02/20 05/03/20 23:59 23:59 23:59 Intake Total 1460 / 1460 1853 / 1853 0 / 0 Output Total 1425 / 1825 1250 / 1250 200 / 200 Balance 35 / -365 603 / 603 -200 / -200 General: Alert, Oriented x3, Cooperative, No apparent distress HEENT: Atraumatic, PERRLA, EOMI, Normocephalic Oral: Moist Mucosa, No Gingival or Mucosal Lesions/ Ulcerations Neck: Supple, No JVD, Negative Carotid Bruits, Trachea Midline, Thyroid Normal Size and Texture Lungs: Clear to auscultation, No rhonchi, No wheeze, No rales, Diminished Cardiovascular: Regular rate, Regular Rhythm, Normal S1, Normal S2, PMI Normal Abdomen: Bowel Sounds Present, Soft, Non Tender, Non-Distended, No Hepato-splenomegaly Extremities: No clubbing, No cyanosis, Edema - Trace edema. Skin: No rashes, No breakdown Lymphatic: No Cervical, Supraclavicular, or Inguinal Adenopathy Neurological: Cranial nerves II-XII grossly intact, Neuro grossly intact Psych/Mental Status: Normal Affect, Appropriate, Alert and oriented to time, place, person, mood and affect Laboratory Results 05/03/20 05:45: WBC 9.6, RBC 2.88 L, Hgb 8.3 L, Hct 27.6 L, MCV 95.8, MCH 28.8, MCHC 30.1 L, RDW Std Deviation 55.5 H, RDW Coeff of [place] 15.9 H, Plt Count 213, MPV 10.1, Immature Gran % (Auto) 1.000 H, Neut % (Auto) 72.1 H, Lymph % (Auto) 9.9 L, [place] % (Auto) 13.1 H, Eos % (Auto) 3.3, Baso % (Auto) 0.6, Absolute Neuts (auto) 6.9, Absolute Lymphs (auto) 0.95, Nucleated RBC % 0 Current Medications Acetaminophen (Acetaminophen 325 Mg Tablet) 650 mg PO Q6H PRN PRN PRN Reason: Pain Score 1-10/Temp > 100.7 F Acetaminophen (Acetaminophen 500 Mg Tablet) 1,000 mg PO Q8 [facility] Last Admin: 05/03/20 06:11 Dose: 1,000 mg Documented by: Albuterol/Ipratropium (Ipratropium/Albuterol Sulfate 3 Ml Ampul.Neb) 3 ml INHALATION Q6H.RT [facility] Last Admin: 05/03/20 07:32 Dose: 3 ml Documented by: Amiodarone HCl (Amiodarone 200 Mg Tablet) 100 mg PO DAILY [facility] Last Admin: 05/02/20 09:43 Dose: 100 mg Documented by: Apixaban (Apixaban 2.5 Mg Tablet) 2.5 mg PO BID [facility] Last Admin: 05/02/20 21:07 Dose: 2.5 mg Documented by: Hydromorphone HCl (Hydromorphone 0.5 Mg/0.5 Ml Syringe) 0.5 mg IV Q2H PRN PRN PRN Reason: Pain Score 6-10 Last Admin: 05/01/20 11:03 Dose: 0.5 mg Documented by: Sodium Chloride () 250 mls @ 15 mls/hr IV .[id number] PRN PRN Reason: Saline Flush Last Infusion: 05/02/20 14:18 Dose: 0 mls/hr Documented by: Levothyroxine Sodium (Levothyroxine 125 Mcg Tablet) 125 mcg PO DAILY@0600 [facility] Last Admin: 05/03/20 06:11 Dose: 125 mcg Documented by: Magnesium Hydroxide (Magnesium Hydroxide 30 Ml Udc) 30 ml PO DAILY PRN PRN PRN Reason: Constipation Last Admin: 04/30/20 09:50 Dose: 30 ml Documented by: Metoprolol Tartrate (Metoprolol Tartrate 25 Mg Tablet) 25 mg PO BID [facility] Last Admin: 05/02/20 21:07 Dose: 25 mg Documented by: Ondansetron HCl (Ondansetron 4 Mg/2 Ml Vial) 4 mg IV Q8H PRN PRN PRN Reason: NAUSEA/VOMITING Oxycodone HCl (Oxycodone 5 Mg Tablet) 10 mg PO Q4H PRN PRN PRN Reason: Pain Score 6-10 Last Admin: 05/02/20 21:06 Dose: 10 mg Documented by: Oxycodone HCl (Oxycodone 5 Mg Tablet) 5 mg PO Q4H PRN PRN PRN Reason: Pain Score 4-5 Last Admin: 05/01/20 08:18 Dose: 5 mg Documented by: Pantoprazole Sodium (Pantoprazole Sodium 20 Mg Tablet) 20 mg PO DAILY [facility] Last Admin: 05/02/20 09:43 Dose: 20 mg Documented by: Senna/Docusate Sodium (Senna/Docusate Sodium 1 Tablet) 2 tablet PO BID PRN PRN PRN Reason: Constipation Last Admin: 05/02/20 21:06 Dose: 2 tablet Documented by: Sodium Chloride (0.9% Saline Lock 10 Ml Syringe) 10 - 40 ml IV UD PRN PRN Reason: SALINE FLUSH Last Admin: 05/02/20 14:17 Dose: 10 ml Documented by: Zolpidem Tartrate (Zolpidem Tartrate 5 Mg Tablet) 5 mg PO QHS PRN PRN PRN Reason: INSOMNIA Medical Necessity - Tobacco Use Smoking Status: Never smoker Assessment/Plan All Active Problems (Last Updated 04/29/20 @ 08:[address] Addison Cooper MD) Acute kidney injury superimposed on CKD (Acute) Fracture of femoral neck, left, closed (Acute) This is an 85 years old female patient presented to the emergency room because of left hip pain that has been going on for 3 months, got worse over the last 3 weeks, had mechanical fall around [place] of 2019 and she was found to have subacute left femoral neck fracture, EL on CKD and acute on chronic anemia. #1 Subacute traumatic left basicervical femoral neck fracture: Status post cephalomedullary nail fixation of the left hip, postoperative day 2. She is on IV Dilaudid and OxyIR as needed for pain. She complained of left hip pain upon ambulation and therapy, no pain at rest. Pain medication is working and effective.. She has been afebrile, other vital signs are stable. Orthopedic surgery is on the case. Plan: Pain control, PT OT, DC to TCU tomorrow if remains stable. #2 acute kidney injury on top of stage III chronic kidney disease: She has been off IV fluids. Baseline creatinine has been around 1.4 to 1.7 mg/dL. Admission creatinine is 2.78, yesterday's creatinine is 1.24, continue to improve and it is back to baseline. #3 acute on chronic anemia: Baseline hemoglobin is been around 10 g/dL, it is normocytic anemia. Hemoglobin went down to 7.7 g/dL, attributed to hemodilution. No active bleeding. She received 1 unit of packed RBCs, today's hemoglobin is 8.3 g/dL, came down from 9.2 from yesterday.. Plan to repeat H&H tomorrow morning. #5 mild hyperkalemia: Yesterday's potassium is 4.6. It is back to normal. Kidney function is improving. #6 status post recent COVID-19 pneumonia/respiratory failure: Patient was admitted on February 2020 for COVID-19 completed treatment with IV remdesivir and p.o. Decadron, was readmitted again after worsening symptoms on March, and discharged on home oxygen at 2 L and she has been on 2 L since then. Chest x-ray reviewed as above. Currently, she is on 4 L of oxygen. She is on DuoNeb every 6 hours. Plan to wean off oxygen as tolerated. #7 CAD status post CABG and stents: EKG reviewed, no acute changes. She is on metoprolol. Lisinopril and Plavix are on hold. #8 status post aortic valve replacement with bioprosthetic valve: 2D echocardiogram reviewed as above, bioprosthetic aortic valve apparatus is stable. #9 hypertension: Blood pressure stable, continue metoprolol. Lisinopril and Norvasc held. . #10 paroxysmal atrial fibrillation: Currently, rate has been around 100, continue amiodarone and metoprolol for rate control, started back on Eliquis. 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 Continue metoprolol. Keep holding Lasix and lisinopril for now. #11 CODE STATUS: Full code. Discussed with the patient and her . #12 DVT prophylaxis: Continue Eliquis. This note was generated with [employer] dictation software. It may contain incorrect words, spelling, and punctuation that were not noted in checking the note before signing. Inpatient E&M: 05014 Subs Hosp L2
[2020-05-03] MEDS: Pantoprazole Sodium 20 MG Tablet PO (10:50)
[2020-05-03] MEDS: APIXABAN 2.5 MG TABLET PO ×2 (11:22→22:10)
[2020-05-03] MEDS: Amiodarone 200 MG Tablet 100 MG PO (11:22)
[2020-05-03] MEDS: Magnesium Hydroxide 30 ML UDC PO (11:26)
[2020-05-03] MEDS: Senna/Docusate Sodium 1 Tablet 2 TABLET PO (11:26)
[2020-05-03] MEDS: oxyCODONE 5 MG Tablet PO (16:41)
[2020-05-03] MEDS: oxyCODONE 5 MG Tablet 10 MG PO (22:10)
[2020-05-04] VITALS (11 sets, daily range): BP systolic 109–137; BP diastolic 49–68; PULSE 65–107; RESP 16–18; TEMP 36.7–37; O2SAT 94–98
[2020-05-04 05:13] LABS: Hematocrit 27.2 % (37-47); Hemoglobin 8.3 g/dL (12.0-15.0)
[2020-05-04] MEDS: Acetaminophen 500 MG Tablet 1000 MG PO (05:37)
[2020-05-04] MEDS: Levothyroxine 125 MCG Tablet PO (05:37)
[2020-05-04] MEDS: oxyCODONE 5 MG Tablet 10 MG PO ×2 (05:37→12:00)
[2020-05-04] MEDS: Ipratropium/Albuterol Sulfate 3 ML AMPUL.NEB INHALATION (06:58)
--- NOTE | 2020-05-04 08:08 | PN_ITS ---
Patient Problems: Active and Suspected Problems (Last Updated 04/29/20 @ 08:[address] Addison Cooper MD) Acute kidney injury superimposed on CKD (Acute) Fracture of femoral neck, left, closed (Acute) Subjective: Patient did well overnight. No change in oxygen demands have been noted. Patient states pain is relatively controlled. No significant cough has been noted. - Physical Exam Vitals/I&O's: Vital Signs Temp Pulse Resp BP Pulse Ox 36.8 C 82 16 137/63 H 95 05/04/20 06:30 05/04/20 06:59 05/04/20 06:59 05/04/20 06:30 05/04/20 06:30 Oxygen Flow Rate (L/min) 3 Oxygen Delivery Method Nasal Cannula Weight: 87.8 kg Body Mass Index (BMI) 35.2 Intake and Output for Last 24 Hours 05/02/20 05/03/20 05/04/20 23:59 23:59 23:59 Intake Total 1853 / 1853 300 / 300 440 / 440 Output Total 1250 / 1250 520 / 520 500 / 500 Balance 603 / 603 -220 / -220 -60 / -60 General: Alert, Oriented x3, Cooperative, No apparent distress, - - Obese. Appears stated age. HEENT: Atraumatic, PERRLA, EOMI, Normocephalic, - - No scleral icterus or injection noted Oral: Moist Mucosa, No Gingival or Mucosal Lesions/ Ulcerations Neck: Supple, No JVD, No Nodes, Trachea Midline Lungs: No rhonchi, No wheeze, Diminished, Rales - Improves with coughing and deep inhalation Cardiovascular: Normal S1, Normal S2, Irregular Rate, Murmur, No rub noted, No Gallop Abdomen: Bowel Sounds Present, Soft, Non Tender, Non-Distended Extremities: No clubbing, No cyanosis, Edema - Left lower extremity Skin: - - No change compared to previous Musculoskeletal: No Tenderness to Palpation of Joints or Extremities Lymphatic: No Cervical, Supraclavicular, or Inguinal Adenopathy Neurological: Cranial nerves II-XII grossly intact, Neuro grossly intact, Motor Exam 5/5 strength throughout Psych/Mental Status: Alert and oriented to time, place, person, mood and affect Laboratory Results 04/29/20 07:28: Crossmatch See Detail 05/04/20 04:55: Hgb 8.3 L, Hct 27.2 L Current Medications Acetaminophen (Acetaminophen 325 Mg Tablet) 650 mg PO Q6H PRN PRN PRN Reason: Pain Score 1-10/Temp > 100.7 F Acetaminophen (Acetaminophen 500 Mg Tablet) 1,000 mg PO Q8 [facility] Last Admin: 05/04/20 05:37 Dose: 1,000 mg Documented by: Albuterol/Ipratropium (Ipratropium/Albuterol Sulfate 3 Ml Ampul.Neb) 3 ml INHALATION Q6H.RT [facility] Last Admin: 05/04/20 06:58 Dose: 3 ml Documented by: Amiodarone HCl (Amiodarone 200 Mg Tablet) 100 mg PO DAILY [facility] Last Admin: 05/03/20 11:22 Dose: 100 mg Documented by: Apixaban (Apixaban 2.5 Mg Tablet) 2.5 mg PO BID [facility] Last Admin: 05/03/20 22:10 Dose: 2.5 mg Documented by: Hydromorphone HCl (Hydromorphone 0.5 Mg/0.5 Ml Syringe) 0.5 mg IV Q2H PRN PRN PRN Reason: Pain Score 6-10 Last Admin: 05/01/20 11:03 Dose: 0.5 mg Documented by: Sodium Chloride () 250 mls @ 15 mls/hr IV .[id number] PRN PRN Reason: Saline Flush Last Infusion: 05/03/20 18:19 Dose: Infused Documented by: Levothyroxine Sodium (Levothyroxine 125 Mcg Tablet) 125 mcg PO DAILY@0600 [facility] Last Admin: 05/04/20 05:37 Dose: 125 mcg Documented by: Magnesium Hydroxide (Magnesium Hydroxide 30 Ml Udc) 30 ml PO DAILY PRN PRN PRN Reason: Constipation Last Admin: 05/03/20 11:26 Dose: 30 ml Documented by: Metoprolol Tartrate (Metoprolol Tartrate 25 Mg Tablet) 12.5 mg PO BID [facility] Ondansetron HCl (Ondansetron 4 Mg/2 Ml Vial) 4 mg IV Q8H PRN PRN PRN Reason: NAUSEA/VOMITING Oxycodone HCl (Oxycodone 5 Mg Tablet) 10 mg PO Q4H PRN PRN PRN Reason: Pain Score 6-10 Last Admin: 05/04/20 05:37 Dose: 10 mg Documented by: Oxycodone HCl (Oxycodone 5 Mg Tablet) 5 mg PO Q4H PRN PRN PRN Reason: Pain Score 4-5 Last Admin: 05/03/20 16:41 Dose: 5 mg Documented by: Pantoprazole Sodium (Pantoprazole Sodium 20 Mg Tablet) 20 mg PO DAILY [facility] Last Admin: 05/03/20 10:50 Dose: 20 mg Documented by: Senna/Docusate Sodium (Senna/Docusate Sodium 1 Tablet) 2 tablet PO BID PRN PRN PRN Reason: Constipation Last Admin: 05/03/20 11:26 Dose: 2 tablet Documented by: Sodium Chloride (0.9% Saline Lock 10 Ml Syringe) 10 - 40 ml IV UD PRN PRN Reason: SALINE FLUSH Last Admin: 05/02/20 14:17 Dose: 10 ml Documented by: Zolpidem Tartrate (Zolpidem Tartrate 5 Mg Tablet) 5 mg PO QHS PRN PRN PRN Reason: INSOMNIA Medical Necessity - Tobacco Use Smoking Status: Never smoker Assessment/Plan All Active Problems (Last Updated 04/29/20 @ 08:[address] Addison Cooper MD) Acute kidney injury superimposed on CKD (Acute) Fracture of femoral neck, left, closed (Acute) RECOMMENDATIONS: 1. Wean supplemental oxygen to maintain saturations at or above 90%. 2. Encourage incentive spirometer 3. Diuretics per cardiology. 4. Therapy plan per orthopedics 5. Okay to go to rehab from my perspective 6. Patient should follow-up in our office 2 to 4 weeks after rehab for evaluation of supplemental oxygen, if agreeable IMPRESSIONS: 1. Nondisplaced left hip fracture status post ORIF day #3 Orthopedic surgery is following. Patient was on Eliquis and Plavix therapy. Patient tolerated intervention well. Tolerating anticoagulation.. Patient was able to ambulate yesterday. PT/OT per orthopedic recommendations. Patient does have anemia, but does not appear to be significantly worse this morning compared to preoperative labs. 2. Chronic hypoxic respiratory failure, likely secondary to previous COVID- 19 and CHF Patient with significant infiltrates on chest x-ray. Unclear if this is residual from patient's previous COVID-19. Patient does have an extensive cardiac history. Defer diuretic therapy to cardiology. Echocardiogram does show some decrease in function compared to previous. Diuretics per cardiology. Would not recommend scheduled bronchodilators as this may exacerbate underlying rhythm/rate control. No wheezing noted on exam at this time. Patient appears to be responding well and could be transferred to rehab from my perspective. Follow-up 2 to 4 weeks after rehab for evaluation of supplemental oxygen would be reasonable if patient is agreeable. 2. History of coronary artery disease status post CABG/bioprosthetic aortic valve/diastolic heart failure/paroxysmal atrial fibrillation Complicates care, management, recovery and prognosis. Continue home medications as indicated. Inpatient E&M: 00954 Subs Hosp L2
[2020-05-04] MEDS: Pantoprazole Sodium 20 MG Tablet PO (08:10)
[2020-05-04] MEDS: Amiodarone 200 MG Tablet 100 MG PO (08:11)
[2020-05-04] MEDS: APIXABAN 2.5 MG TABLET PO (08:11)
[2020-05-04] MEDS: Metoprolol Tartrate 25 MG Tablet 12.5 MG PO (08:12)
[2020-05-04] MEDS: Senna/Docusate Sodium 1 Tablet 2 TABLET PO (08:26)
--- NOTE | 2020-05-04 10:11 | PCM.DC ---
- Discharge Diagnoses Current Active Problems: Current Active and Chronic Problems (Last Updated 04/29/20 @ 08:[address] 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) Nonrheumatic mitral (valve) insufficiency (Chronic) Secondary pulmonary arterial hypertension (Chronic) Paroxysmal atrial fibrillation (Chronic) Takotsubo cardiomyopathy (Chronic) H/O coronary artery bypass surgery (Chronic 01/2016) CABG x 2 VALERIO-LAD, 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/2015 Atherosclerosis of coronary artery of [place] heart without angina pectoris (Chronic) CABG x 2 VALERIO-LAD, 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/2015 History of aortic valve replacement with bioprosthetic valve (Chronic 01/2016) You will use the following diet at home:: Cardiac Your food should be the consistency of: Regular Discharge Activity: Return to Normal Activity Weight Bearing Status: Weight bearing as tolerated Call your doctor if you observe: Fever of 101 or Higher, Shortness of breath, Dizziness, Fainting spells, Chest pain, Increased palpitations (irregular heartbeat), Uncontrolled pain Allergies/Adverse Reactions: Allergies atorvastatin [From Lipitor] Adverse Reaction (Verified 04/29/20 06:10) Pain in joints niacin Adverse Reaction (Verified 04/29/20 06:10) Pain in joints pregabalin [From Lyrica] Adverse Reaction (Verified 04/29/20 06:10) leg pain simvastatin [From Zocor] Adverse Reaction (Verified 04/29/20 06:10) Pain in joints Medications to take at Discharge Nitroglycerin (INPATIENT USE) [Nitrostat] 0.4 mg SUBLINGUAL Q5M PRN 02/24/16 levothyroxine 125 mcg tablet 125 mcg PO DAILY #30 tab 11/14/18 metoprolol tartrate 25 mg tablet 12.5 mg PO BID tab 12/31/19 amlodipine 2.5 mg tablet 2.5 mg PO DAILY tab 03/05/20 Clopidogrel Bisulfate [Clopidogrel] 75 mg PO DINNER 03/13/20 Omeprazole 20 mg PO DAILY 03/13/20 Lactobacillus Acidophilus [Acidophilus] 1 tab PO BID #10 tab 04/01/20 Loperamide [Imodium] 2 mg PO Q2H PRN PRN cap 04/01/20 amiodarone 200 mg tablet 100 mg PO DAILY #45 tab 04/11/20 Apixaban [Eliquis] 2.5 mg PO BID #90 tablet 05/04/20 Ferrous Sulfate 325 mg PO BIDCM #90 tab 05/04/20 Furosemide 40 mg PO DAILY #30 tablet 05/04/20 Magnesium Hydroxide [Milk Of Magnesia] 30 ml PO DAILY PRN PRN #1 udc 05/04/20 Oxycodone HCl 5 mg PO Q6H PRN PRN 7 Days #20 tablet 05/04/20 The following prescriptions were given: Apixaban [Eliquis] 2.5 mg PO BID #90 tablet Prescription Printed Ferrous Sulfate 325 mg PO BIDCM #90 tab Prescription Printed Furosemide 40 mg PO DAILY #30 tablet Prescription Printed Magnesium Hydroxide [Milk Of Magnesia] 30 ml PO DAILY PRN PRN #1 udc PRN Reason: Constipation Oxycodone HCl 5 mg PO Q6H PRN PRN 7 Days #20 tablet PRN Reason: Pain Score 6-10 Prescription Printed Primary Care Physician: Matteo West III, MD [Primary Care Provider] - Please follow up with your Primary Care Physician in: 1-2 weeks. Test Results: Test results from this visit will be discussed in further detail at your follow-up appointment, if applicable. Please Follow Up With: Nam Rogers DO When: 2 weeks.
--- NOTE | 2020-05-04 10:29 | PCM.DC.SUM ---
Discharge Date and Diagnosis - Problem List Patient Problems: Active and Suspected Problems (Last Updated 04/29/20 @ 08:[address] Addison Cooper MD) Acute kidney injury superimposed on CKD (Acute) Fracture of femoral neck, left, closed (Acute) Date of Admission: 04/29/20 Date of Discharge: 05/04/20 - Primary Discharge Diagnosis Acute Problems: Active Problems (Last Updated 04/29/20 @ 08:[address] Addison Cooper MD) #1 subacute traumatic left basicervical femoral neck fracture, status post cephalomedullary nail fixation. #2 acute kidney injury on top of stage IIIb chronic kidney disease. #3 acute on chronic anemia preoperatively, no obvious active bleeding. #4 mild hyperkalemia, resolved. #5 postoperative abnormal cardiac enzymes, attributed to demand ischemia. #6 status post recent COVID-19 pneumonia/respiratory failure, treated back on February,, has been on oxygen since then at 2 L. Discharged to rehab on 3 L. - Secondary Discharge Diagnosis Chronic Problems: Chronic Problems (Last Updated 04/29/20 @ 08:[address] 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) Nonrheumatic aortic valve insufficiency (Chronic) Nonrheumatic mitral (valve) insufficiency (Chronic) Secondary pulmonary arterial hypertension (Chronic) Paroxysmal atrial fibrillation (Chronic) Takotsubo cardiomyopathy (Chronic) H/O coronary artery bypass surgery (Chronic 01/2016) CABG x 2 VALERIO-LAD, 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/2015 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 Electronically Signed: Emile Mustafa MD at 7:11 EDT Tel , Service support , Chest X-Ray 04/29/20 06:52 IMPRESSION: Bilateral hazy airspace opacities (edema/congestion) Cardiomegaly with congestion Underlying interstitial disease Electronically Signed: Heriberto DO Xu at 8:29 EDT Tel , Service support , Hip/Pelvis X-Ray 05/01/20 13:50 IMPRESSION: Intraoperative images provided for ORIF of the left intertrochanteric fracture. There is good alignment. Electronically Signed: Manish Zapata MD at 14:58 EDT , Service support , Dr. Lucas, cardiology. Dr. Orr, pulmonology. Dr. Rogers, orthopedic surgery. Operations: - - Cephalomedullary nail fixation of the left hip. Procedures: 2-D Echocardiogram, Blood transfusion, EKG Summary of Care Provided: Patient seen and examined on the day of discharge and appeared to be stable to be discharged to inpatient rehabitation unit. Her pain is tolerable and manageable. She has been ambulating. Her breathing has been stable, remains on 3 L of oxygen. Other vital signs are stable. This is an 85 years old female patient presented to the emergency room because of left hip pain that has been going on for 3 months, got worse over the last 3 weeks, had mechanical fall around [place] 2019 and she was found to have subacute left femoral neck fracture, EL on CKD and acute on chronic anemia. #1 Subacute traumatic left basicervical femoral neck fracture: Status post cephalomedullary nail fixation of the left hip. Postoperative course was smooth without significant postoperative complications. Patient discharged to inpatient rehabilitation unit on OxyIR, plan to follow-up with orthopedic surgery as outpatient in 2 weeks. #2 acute kidney injury on top of stage III chronic kidney disease: Treated with gentle IV fluids for hydration. Baseline creatinine has been around 1.4 to 1.7 mg/dL. Admission creatinine is 2.78, discharge creatinine was 1.24, continue to improve and it is back to baseline. #3 acute on chronic anemia: Baseline hemoglobin is been around 10 g/dL, it is normocytic anemia. Preoperatively, hemoglobin went down to 7.7 g/dL, attributed to hemodilution. No active bleeding. She received 1 unit of packed RBCs before she went for surgery. On discharge, hemoglobin was 8.3 g/dL. #5 mild hyperkalemia: Most recent potassium is 4.6. No treatment given. It is back to normal. #6 status post recent COVID-19 pneumonia/respiratory failure: Patient was admitted on February 2020 for COVID-19 completed treatment with IV remdesivir and p.o. Decadron, was readmitted again after worsening symptoms on March, and discharged on home oxygen at 2 L and she has been on 2 L since then. Chest x-ray reviewed as above. Upon discharge to inpatient rehab, patient was on 3 L. #7 CAD status post CABG and stents: Postoperatively, troponin was borderline elevated. Patient had no chest pain. EKG showed no acute ischemic changes. 2D echocardiogram revealed ejection fraction of 40 to 45%, mild MR, moderate MR. Upon discharge, she was started back on Plavix along with Eliquis lisinopril discontinued, continued on metoprolol. #8 status post aortic valve replacement with bioprosthetic valve: 2D echocardiogram revealed that bioprosthetic aortic valve apparatus is stable. #9 hypertension: Blood pressure stable, discharged on metoprolol, Norvasc. Lisinopril held because of the EL on CKD. #10 paroxysmal atrial fibrillation: Heart rate remained stable, remains on amiodarone and metoprolol for rate control. Dose of Eliquis adjusted based on her age and kidney function. She was discharged on Eliquis 2.5 mg p.o. twice daily. #10 chronic combined systolic congestive CHF/Takotsubo cardiomyopathy: Stable, discharged on Lasix 40 mg p.o. daily and metoprolol. Lisinopril held as above. Patient discharged to inpatient rehabilitation unit in a stable medical condition, discharged on Eliquis 2.5 mg p.o. twice daily for DVT prophylaxis and for history of paroxysmal atrial fibrillation, discharged on iron supplement for anemia, discharged on OxyIR as needed for pain, discharged on oxygen at 3 L, plan to follow-up with orthopedic surgery in 2 weeks, recommended follow-up with PCP in 1 week. This note was generated with [employer] dictation software. It may contain incorrect words, spelling, and punctuation that were not noted in checking the note before signing. Patient Problems: Active and Suspected Problems (Last Updated 04/29/20 @ 08:[address] Addison Cooper MD) Acute kidney injury superimposed on CKD (Acute) Fracture of femoral neck, left, closed (Acute) - Physical Exam Vitals/I&O's: Vital Signs Temp Pulse Resp BP Pulse Ox 98.6 F 87 18 114/49 L 98 05/04/20 10:00 05/04/20 10:00 05/04/20 10:00 05/04/20 10:00 05/04/20 10:00 Oxygen Flow Rate (L/min) 3 Oxygen Delivery Method Nasal Cannula Weight: 193 lb 9.054 oz Body Mass Index (BMI) 35.2 Intake and Output for Last 24 Hours 05/02/20 05/03/20 05/04/20 23:59 23:59 23:59 Intake Total 1853 / 1853 300 / 300 440 / 440 Output Total 1250 / 1250 520 / 520 500 / 500 Balance 603 / 603 -220 / -220 -60 / -60 General: Alert, Oriented x3, Cooperative, No apparent distress HEENT: Atraumatic, PERRLA, EOMI, Normocephalic Oral: Moist Mucosa, No Gingival or Mucosal Lesions/ Ulcerations Neck: Supple, No JVD, Negative Carotid Bruits, Trachea Midline, Thyroid Normal Size and Texture Lungs: Clear to auscultation, No rhonchi, No wheeze, No rales, Diminished Cardiovascular: Regular rate, Regular Rhythm, Normal S1, Normal S2, PMI Normal Abdomen: Bowel Sounds Present, Soft, Non Tender, Non-Distended, No Hepato-splenomegaly Extremities: No clubbing, No cyanosis, Edema Skin: No rashes, No breakdown Lymphatic: No Cervical, Supraclavicular, or Inguinal Adenopathy Neurological: Cranial nerves II-XII grossly intact, Neuro grossly intact Psych/Mental Status: Normal Affect, Appropriate Laboratory Results 05/04/20 04:55: Hgb 8.3 L, Hct 27.2 L Current Medications Acetaminophen (Acetaminophen 325 Mg Tablet) 650 mg PO Q6H PRN PRN PRN Reason: Pain Score 1-10/Temp > 100.7 F Acetaminophen (Acetaminophen 500 Mg Tablet) 1,000 mg PO Q8 [facility] Last Admin: 05/04/20 05:37 Dose: 1,000 mg Documented by: Albuterol/Ipratropium (Ipratropium/Albuterol Sulfate 3 Ml Ampul.Neb) 3 ml INHALATION Q6H.RT [facility] Last Admin: 05/04/20 06:58 Dose: 3 ml Documented by: Amiodarone HCl (Amiodarone 200 Mg Tablet) 100 mg PO DAILY [facility] Last Admin: 05/04/20 08:11 Dose: 100 mg Documented by: Apixaban (Apixaban 2.5 Mg Tablet) 2.5 mg PO BID [facility] Last Admin: 05/04/20 08:11 Dose: 2.5 mg Documented by: Hydromorphone HCl (Hydromorphone 0.5 Mg/0.5 Ml Syringe) 0.5 mg IV Q2H PRN PRN PRN Reason: Pain Score 6-10 Last Admin: 05/01/20 11:03 Dose: 0.5 mg Documented by: Sodium Chloride () 250 mls @ 15 mls/hr IV .[id number] PRN PRN Reason: Saline Flush Last Infusion: 05/03/20 18:19 Dose: Infused Documented by: Levothyroxine Sodium (Levothyroxine 125 Mcg Tablet) 125 mcg PO DAILY@0600 [facility] Last Admin: 05/04/20 05:37 Dose: 125 mcg Documented by: Magnesium Hydroxide (Magnesium Hydroxide 30 Ml Udc) 30 ml PO DAILY PRN PRN PRN Reason: Constipation Last Admin: 05/03/20 11:26 Dose: 30 ml Documented by: Metoprolol Tartrate (Metoprolol Tartrate 25 Mg Tablet) 12.5 mg PO BID [facility] Last Admin: 05/04/20 08:12 Dose: 12.5 mg Documented by: Ondansetron HCl (Ondansetron 4 Mg/2 Ml Vial) 4 mg IV Q8H PRN PRN PRN Reason: NAUSEA/VOMITING Oxycodone HCl (Oxycodone 5 Mg Tablet) 10 mg PO Q4H PRN PRN PRN Reason: Pain Score 6-10 Last Admin: 05/04/20 05:37 Dose: 10 mg Documented by: Oxycodone HCl (Oxycodone 5 Mg Tablet) 5 mg PO Q4H PRN PRN PRN Reason: Pain Score 4-5 Last Admin: 05/03/20 16:41 Dose: 5 mg Documented by: Pantoprazole Sodium (Pantoprazole Sodium 20 Mg Tablet) 20 mg PO DAILY [facility] Last Admin: 05/04/20 08:10 Dose: 20 mg Documented by: Senna/Docusate Sodium (Senna/Docusate Sodium 1 Tablet) 2 tablet PO BID PRN PRN PRN Reason: Constipation Last Admin: 05/04/20 08:26 Dose: 2 tablet Documented by: Sodium Chloride (0.9% Saline Lock 10 Ml Syringe) 10 - 40 ml IV UD PRN PRN Reason: SALINE FLUSH Last Admin: 05/02/20 14:17 Dose: 10 ml Documented by: Zolpidem Tartrate (Zolpidem Tartrate 5 Mg Tablet) 5 mg PO QHS PRN PRN PRN Reason: INSOMNIA Discharge Activity: Return to Normal Activity Weight Bearing Status: Weight bearing as tolerated Call your doctor if you observe: Fever of 101 or Higher, Shortness of breath, Dizziness, Fainting spells, Chest pain, Increased palpitations (irregular heartbeat), Uncontrolled pain Home Medications: Medications to take at Discharge Nitroglycerin (INPATIENT USE) [Nitrostat] 0.4 mg SUBLINGUAL Q5M PRN 02/24/16 levothyroxine 125 mcg tablet 125 mcg PO DAILY #30 tab 11/14/18 metoprolol tartrate 25 mg tablet 12.5 mg PO BID tab 12/31/19 amlodipine 2.5 mg tablet 2.5 mg PO DAILY tab 03/05/20 Clopidogrel Bisulfate [Clopidogrel] 75 mg PO DINNER 03/13/20 Omeprazole 20 mg PO DAILY 03/13/20 Lactobacillus Acidophilus [Acidophilus] 1 tab PO BID #10 tab 04/01/20 Loperamide [Imodium] 2 mg PO Q2H PRN PRN cap 04/01/20 amiodarone 200 mg tablet 100 mg PO DAILY #45 tab 04/11/20 Apixaban [Eliquis] 2.5 mg PO BID #90 tablet 05/04/20 Ferrous Sulfate 325 mg PO BIDCM #90 tab 05/04/20 Furosemide 40 mg PO DAILY #30 tablet 05/04/20 Magnesium Hydroxide [Milk Of Magnesia] 30 ml PO DAILY PRN PRN #1 udc 05/04/20 Oxycodone HCl 5 mg PO Q6H PRN PRN 7 Days #20 tablet 05/04/20 Following Prescriptions Were Given to Patient: Apixaban [Eliquis] 2.5 mg PO BID #90 tablet Prescription Printed Ferrous Sulfate 325 mg PO BIDCM #90 tab Prescription Printed Furosemide 40 mg PO DAILY #30 tablet Prescription Printed Magnesium Hydroxide [Milk Of Magnesia] 30 ml PO DAILY PRN PRN #1 udc PRN Reason: Constipation Oxycodone HCl 5 mg PO Q6H PRN PRN 7 Days #20 tablet PRN Reason: Pain Score 6-10 Prescription Printed Primary Care Physician: Matteo West III, MD [Primary Care Provider] - Please follow up with your Primary Care Physician in: 1-2 weeks. Please Follow Up With: Nam Rogers DO When: 2 weeks. Disposition: Inpt Rehab Unit/Facility Minutes spent on discharge:: 34 Patient Condition:: Stable Medical Necessity - Tobacco Use Smoking Status: Never smoker Meaningful Use Info Meaningful Use Diagnoses (Choose all that apply): None applicable Inpatient E&M: 81528 Disch Hosp
== END 2020-05-04 13:16 | DRG 481 ==
LOC: ED 08:01 → MS3 08:10 → ICU 05-01 15:09 → MS3 05-02 09:55
PROVIDERS: Anesthesiology; Internal Medicine Interventional Cardiology; Orthopaedic Surgery; Admitting Provider Hospitalist; Emergency Provider Emergency Medicine; PCP Family Medicine; Visit Provider Hospitalist
PROC: 0QS704Z Reposition Left Upper Femur with Internal Fixation Device, Open Approach (ICD-10-PCS; principal; 2020-05-01 13:00)
DX: S72.002A Fracture of unspecified part of neck of left femur, initial encounter for closed fracture (principal); I13.0 Hypertensive heart and chronic kidney disease with heart failure and stage 1 through stage 4 chronic kidney disease, or unspecified chronic kidney disease; I50.42 Chronic combined systolic (congestive) and diastolic (congestive) heart failure; N17.9 Acute kidney failure, unspecified; J96.11 Chronic respiratory failure with hypoxia; I24.8 Other forms of acute ischemic heart disease; B94.8 Sequelae of other specified infectious and parasitic diseases; N18.32 Chronic kidney disease, stage 3b; E87.5 Hyperkalemia; D64.9 Anemia, unspecified; I48.0 Paroxysmal atrial fibrillation; I27.21 Secondary pulmonary arterial hypertension; I37.1 Nonrheumatic pulmonary valve insufficiency; I35.1 Nonrheumatic aortic (valve) insufficiency; I34.0 Nonrheumatic mitral (valve) insufficiency; I25.10 Atherosclerotic heart disease of native coronary artery without angina pectoris; E03.9 Hypothyroidism, unspecified; E66.9 Obesity, unspecified; Z68.35 Body mass index [BMI] 35.0-35.9, adult; X58.XXXA Exposure to other specified factors, initial encounter; Y93.9 Activity, unspecified; Y92.9 Unspecified place or not applicable; Y99.9 Unspecified external cause status; Z99.81 Dependence on supplemental oxygen; Z79.01 Long term (current) use of anticoagulants; Z79.02 Long term (current) use of antithrombotics/antiplatelets; Z79.890 Hormone replacement therapy; Z79.899 Other long term (current) drug therapy; Z91.81 History of falling; Z87.01 Personal history of pneumonia (recurrent); Z95.1 Presence of aortocoronary bypass graft; Z95.3 Presence of xenogenic heart valve; Z95.5 Presence of coronary angioplasty implant and graft; Z96.653 Presence of artificial knee joint, bilateral
CPT/HCPCS: 36415; 71045; 73502; 76000; 80048; 80053; 83735; 84132; 84443; 84484; 85014; 85018; 85025; 85610; 85730; 86850; 86900; 86901; 86920; 93005; 93306; 94640; 97110; 97162; 97166; 97530; 99285; C1713; J7030; J7040; J7050; J7120; P9016; Q9957; A4216; C8929; J2405

== ENCOUNTER 2020-05-04 13:45 | Inpatient (IN) | payer MEDICARE, SELFPAY ==
[2020-05-01 11:00] VITALS: BMI 35.2
[2020-05-04 14:13] VITALS: BP 118/54; PULSE 102; RESP 16; TEMP 36.2; O2SAT 95; BMI 37.8
[2020-05-04 15:34] VITALS: O2SAT 95
[2020-05-04] MEDS: Clopidogrel Bisulfate 75 MG Tablet PO (16:03)
[2020-05-04] MEDS: Ascorbic Acid 500 MG Tablet PO (16:03)
[2020-05-04] MEDS: Ferrous Sulfate 325 MG Tablet PO (16:03)
[2020-05-04 18:14] VITALS: O2SAT 95
[2020-05-04 19:30] VITALS: BP 150/58; PULSE 98; RESP 18; TEMP 36.2; O2SAT 96
[2020-05-04 19:47] VITALS: BP 150/58; PULSE 98
[2020-05-04] MEDS: Senna/Docusate Sodium 1 Tablet 2 TABLET PO (19:47)
[2020-05-04] MEDS: Metoprolol Tartrate 25 MG Tablet 12.5 MG PO (19:47)
[2020-05-04] MEDS: oxyCODONE 5 MG Tablet PO (19:48)
[2020-05-04] MEDS: Acetaminophen 325 MG Tablet 650 MG PO (19:48)
[2020-05-04] MEDS: APIXABAN 2.5 MG TABLET PO (19:48)
[2020-05-04] MEDS: Nystatin Powder 15gm Bottle 1 APPLIC TOPICAL (19:49)
[2020-05-04] MEDS: Menthol/Lanolin/Calamine/Znox 113 GM Tube 1 APPLIC TOPICAL (19:50)
[2020-05-04 20:15] VITALS: PULSE 98; RESP 18; O2SAT 96
[2020-05-04] MEDS: 0.9% Saline Lock 10 ML Syringe IV ×2 (21:36→21:52)
--- NOTE | 2020-05-05 00:41 | NURSING ---
1241; read and agree with middleware consultant assessment. llrn
[2020-05-05] MEDS: oxyCODONE 5 MG Tablet PO ×3 (06:02→20:23)
[2020-05-05] MEDS: Menthol/Lanolin/Calamine/Znox 113 GM Tube 1 APPLIC TOPICAL ×2 (06:03→20:25)
[2020-05-05] MEDS: Levothyroxine 125 MCG Tablet PO (06:03)
[2020-05-05] MEDS: Nystatin Powder 15gm Bottle 1 APPLIC TOPICAL ×2 (06:03→20:28)
[2020-05-05] MEDS: Magnesium Hydroxide 30 ML UDC PO (06:44)
[2020-05-05 06:51] VITALS: O2SAT 92
[2020-05-05 07:25] VITALS: BP 119/56; PULSE 92; RESP 16; TEMP 36.6; O2SAT 96
[2020-05-05] MEDS: Senna/Docusate Sodium 1 Tablet 2 TABLET PO ×2 (07:53→20:28)
[2020-05-05] MEDS: Ferrous Sulfate 325 MG Tablet PO ×2 (07:53→16:37)
[2020-05-05] MEDS: Furosemide 40 MG Tablet PO (07:53)
[2020-05-05 07:54] VITALS: BP 119/56; PULSE 92
[2020-05-05] MEDS: APIXABAN 2.5 MG TABLET PO ×2 (07:54→20:25)
[2020-05-05] MEDS: amLODIPine 2.5 MG Tablet PO (07:54)
[2020-05-05] MEDS: Pantoprazole Sodium 20 MG Tablet PO (07:54)
[2020-05-05] MEDS: Metoprolol Tartrate 25 MG Tablet 12.5 MG PO ×2 (07:54→20:26)
[2020-05-05] MEDS: Ascorbic Acid 500 MG Tablet PO (07:54)
[2020-05-05] MEDS: Amiodarone 200 MG Tablet 100 MG PO (07:54)
--- NOTE | 2020-05-05 11:47 | HP.PCM_ITS ---
Problem List (1) Debility Status: Acute Comment: Due to recent hip fracture and subsequent ORIF. (2) Acute kidney injury superimposed on CKD Status: Resolved (3) Fracture of femoral neck, left, closed Status: Acute Qualifiers: Encounter type: subsequent encounter (4) Essential hypertension Status: Chronic (5) History of coronary artery stent placement Status: Chronic Comment: PCI-KHOI-LAD 2014 (6) Chronic combined systolic and diastolic CHF (congestive heart failure) Status: Chronic Comment: EF in April 2020 estimated at 40 to 45% (7) Nonrheumatic pulmonary valve insufficiency Status: Chronic (8) Nonrheumatic aortic valve insufficiency Status: Chronic (9) Nonrheumatic mitral (valve) insufficiency Status: Chronic Comment: 1+ (10) Secondary pulmonary arterial hypertension Status: Chronic (11) Paroxysmal atrial fibrillation Status: Chronic (12) Takotsubo cardiomyopathy Status: Chronic (13) H/O coronary artery bypass surgery Status: Chronic Comment: CABG x 2 VALERIO-LAD, 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/2015 (14) Atherosclerosis of coronary artery of [place] heart without angina pectoris Status: Chronic Qualifiers: Comment: CABG x 2 VALERIO-LAD, 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/2015 (15) History of aortic valve replacement with bioprosthetic valve Status: Chronic (16) Left atrial enlargement Status: Chronic (17) Tricuspid regurgitation Status: Chronic Qualifiers: Cardiac valve disease etiology: nonrheumatic Qualified Code(s): I36.1 - Nonrheumatic tricuspid (valve) insufficiency Comment: 2+ in April 2020 (18) Anemia Status: Chronic Qualifiers: Anemia type: unspecified type Qualified Code(s): D64.9 - Anemia, unspecified (19) High thyroid stimulating hormone (TSH) level Status: Acute (20) Elevated serum globulin level Status: Acute (21) Anemia of chronic renal failure, stage 3b Status: Chronic (22) Chronic hypoxemic respiratory failure Status: Chronic (23) 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 (24) Chronic anticoagulation Status: Chronic Comment: On Eliquis for PAF History of Present Illness Date of Admission: 05/04/20 Chief Complaint: debility due to Left hip fracture with cephalomedullary nailing by Dr. Rogers on 05/01/2020 The patient is a 85 year old F with a past medical history of central hypertension, hyperlipidemia, coronary artery disease, PAF, chronic anticoagulation with Eliquis, cardiomyopathy with a 40 to 45% ejection fraction, mild left atrial enlargement, history of coronary artery bypass grafting x2 in 2015, history of bioprosthetic aortic valve replacement in 2016, chronic normochromic normocytic anemia of uncertain etiology, chronic combined systolic and diastolic congestive heart failure (in 2019 had stage 3 diastolic dysfunction), secondary pulmonary hypertension, history of PCI/KHOI to the LAD in 2014, moderate tricuspid regurgitation, mild mitral regurgitation, COVID-19 infection in February 2020, hypothyroidism, anxiety/depression, chronic kidney disease stage IIIb, obesity, history of peptic ulcer disease, chronic hypoxemic respiratory failure since having COVID and Left Hip fracture with cephalo- medullary nailing on 05/01/[address] Rogers who was admitted to the in acute rehab unit at [facility] on 05/04/20 for > 3 hours of therapy daily to restore function at or near her prior level of function. She has gained 21 lbs since 03/25/20. Why is she chronically anemic? No hemoccult stool on the chart. She is on an iron supplement but she is N/N and there are no iron studies on the chart? She is chronically on Eliquis. She was transfused with 1 unit of PRBC's in the hospital for a HGB of 7.7. She was 9.6 at admission but, she was in ARF due to dehydration. TSH is high but, the T4 was also high in March 2020? No BNP on chart for recent admission. No recent UA. Was admitted in February for COVID 19 and went home on no oxygen and had a few days of Remdesivir and Decadron. Readmitted in March for CAP and CHF......required oxygen up to 6 LPM . CXR at admission worse than when she was admitted to the hospital in March for CAP. worsening CHF? She tells me that she has been told she is anemic but not why she is anemic. She tells me she has never been diagnosed with iron deficiency. She was not on an iron supplement prior to admission to the hospital. The iron she is currently taking, started in the hospital, is making her very constipated. Past Medical History Past Medical History (Chronic Problems): Chronic Problems (Last Reviewed 05/05/20 @ 12:[address] Sepideh Rivers, DO) Left atrial enlargement (Chronic) Tricuspid regurgitation (Chronic) 2+ in April 2020 Anemia (Chronic) Anemia of chronic renal failure, stage 3b (Chronic) Chronic hypoxemic respiratory failure (Chronic) [id number] condition (Chronic) With development of chronic respiratory failure with hypoxemia. Chronic anticoagulation (Chronic) On Eliquis for PAF Essential hypertension (Chronic) History of coronary artery stent placement (Chronic 2014) PCI-KHOI-LAD 2014 Chronic combined systolic and diastolic CHF (congestive heart failure) (Chronic) EF in April 2020 estimated at 40 to 45% Nonrheumatic pulmonary valve insufficiency (Chronic) Nonrheumatic aortic valve insufficiency (Chronic) Nonrheumatic mitral (valve) insufficiency (Chronic) 1+ Secondary pulmonary arterial hypertension (Chronic) Paroxysmal atrial fibrillation (Chronic) Takotsubo cardiomyopathy (Chronic) H/O coronary artery bypass surgery (Chronic 01/2016) CABG x 2 VALERIO-LAD, 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/2015 Atherosclerosis of coronary artery of [place] without angina pectoris (Chronic) CABG x 2 VALERIO-LAD, 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/2015 History of aortic valve replacement with bioprosthetic valve (Chronic 01/2016) Medical History: Medical History (Last Reviewed 05/05/20 @ 12:[address] Sepideh Rivers, DO) Essential hypertension (Chronic) I10 Chronic combined systolic and diastolic CHF (congestive heart failure) (Chronic) I50.42 EF in April 2020 estimated at 40 to 45% Nonrheumatic pulmonary valve insufficiency (Chronic) I37.1 Nonrheumatic aortic valve insufficiency (Chronic) I35.1 Nonrheumatic mitral (valve) insufficiency (Chronic) I34.0 1+ Secondary pulmonary arterial hypertension (Chronic) I27.21 Paroxysmal atrial fibrillation (Chronic) I48.0 Takotsubo cardiomyopathy (Chronic) I51.81 Atherosclerosis of coronary artery of [place] heart without angina pectoris (Chronic) I25.10 CABG x 2 VALERIO-LAD, 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/2015 Acquired hypothyroidism E03.9 Anemia D64.9 Anxiety and depression F41.9, F32.9 Chronic kidney disease, stage 3 N18.3 Esophagitis K20.9 Insomnia G47.00 Obesity (BMI 30-39.9) E66.9 PUD (peptic ulcer disease) K27.9 Acute kidney injury N17.9 COVID-19 virus detected (Inactive) Onset Date: 02/29/20 U07.1 Allergies atorvastatin [From Lipitor] Adverse Reaction (Verified 04/29/20 06:10) Pain in joints niacin Adverse Reaction (Verified 04/29/20 06:10) Pain in joints pregabalin [From Lyrica] Adverse Reaction (Verified 04/29/20 06:10) leg pain simvastatin [From Zocor] Adverse Reaction (Verified 04/29/20 06:10) Pain in joints Home Medications: Ambulatory Orders Medication Instructions Recorded Nitroglycerin (INPATIENT USE) 0.4 mg SUBLINGUAL Q5M PRN 02/24/16 [Nitrostat] levothyroxine 125 mcg tablet 125 mcg PO DAILY #30 tab 11/14/18 metoprolol tartrate 25 mg tablet 12.5 mg PO BID tab 12/31/19 amlodipine 2.5 mg tablet 2.5 mg PO DAILY tab 03/05/20 Clopidogrel Bisulfate [Clopidogrel] 75 mg PO DINNER 03/13/20 Omeprazole 20 mg PO DAILY 03/13/20 Loperamide [Imodium] 2 mg PO Q2H PRN PRN cap 04/01/20 amiodarone 200 mg tablet 100 mg PO DAILY #45 tab 04/11/20 Apixaban [Eliquis] 2.5 mg PO BID 05/04/20 Ferrous Sulfate 325 mg PO BIDCM 05/04/20 Furosemide 40 mg PO DAILY #30 tablet 05/04/20 Lactobacillus Acidophilus 1 tablet PO BID 05/04/20 [Acidophilus] Magnesium Hydroxide [Milk Of 30 ml PO DAILY PRN PRN #1 udc 05/04/20 Magnesia] Oxycodone HCl 5 mg PO Q6H PRN PRN 7 Days #20 05/04/20 tablet Surgical History: Surgical History (Last Reviewed 05/05/20 @ 12:[address] Sepideh Rivers DO) History of coronary artery stent placement (Chronic) Onset Date: 2014 Z95.5 PCI-KHOI-LAD 2014 H/O coronary artery bypass surgery (Chronic) Onset Date: 01/2016 Z95.1 CABG x 2 VALERIO-LAD, 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/2015 History of aortic valve replacement with bioprosthetic valve (Chronic) Onset Date: 01/2016 Z95.3 History of cardioversion Onset Date: 12/24/19 Z98.890 Surgical History: coronary bypass surgery - 2016x2 vessels, - - Bioprosthetic aortic valve replacement in 2016. PTCA/KHOI of the LAD in 2014. 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 Smoking Status: Former smoker Alcohol: None Drugs: None - *Family History Maternal Family History: Family History (Last Reviewed 05/05/20 @ 12:[address] Sepideh Rivers, ) Mother Diabetes Heart disease Other CAD (coronary artery disease) History Items: Diabetes, Heart Disease Review of Systems Constitutional: Reports: Weight Change - weight has increased. Prior to Covid she was weighing 168 to 170 pounds. She weighs herself daily at home.. Denies: Anorexia, Chills, Fever Eyes: Denies: Vision Change HEENT: Denies: Difficulty Hearing, Difficulty Swallowing, Head Aches, Nasal Co ngestion, Sinus Congestion, Sinus Drainage, Sore Throat Cardiovascular: Reports: Edema - She tells me it is pretty good now.. Denies: Chest Pain, Chest Pressure, Chest Tightness, Light Headedness, Orthopnea - Sleeps on one pillow at home., Palpitations, Syncope Respiratory: Reports: Shortness of Breath, Shortness of breath upon exertion - If she does not have oxygen on.. Denies: Cough, Hemoptysis, Shortness of breath at rest, Sputum production, Wheezing Gastrointestinal: Reports: Constipation, Hematochezia - She has bright red blood on the toilet paper when she has a bowel movement and is constipated. She tells me that her stool prior to hospitalization recently was dark brown.. Denies: Abdominal Pain, Diarrhea, Dyspepsia, Nausea, Vomiting Genitourinary: Denies: Dysuria, Hesitancy, Incontinence Musculoskeletal: Reports: Joint Pain - Left hip. Denies: Joint Tenderness Skin: Reports: Dryness, Wounds - Left hip secondary to recent cephalomedullary nailing. Denies: Jaundice, Rash Neurological: Denies: Blurred vision, Double vision, Change in Speech, Slurred speech, Confusion, Focal weakness, Headaches, Numbness, Tingling, Tremor, Seizures Psychiatric: Denies: Anxiety, Depression, Homicidal Ideations, Suicidal Ideations Endocrine: Denies: Heat/ Cold Intolerance Hematologic/ Lymphatic: Denies: Easy Bruising, Easy Bleeding, Hx of blood clot VTE Information - Inpt Only VTE Present on Admission: No VTE Mechan Device Prophylaxis: Knee High BECCA Hose - Bilateral Will wraps VTE Pharm Prophylaxis ordered?: No Reason prophylaxis not ordered:: Treatment Not Indicated - She is on apixaban 2.5 mg twice daily for PAF Patient Problems: Active and Suspected Problems (Last Reviewed 05/05/20 @ 12:[address] Sepideh Rivers, ) Debility (Acute) Due to recent hip fracture and subsequent ORIF. High thyroid stimulating hormone (TSH) level (Acute) Elevated serum globulin level (Acute) Fracture of femoral neck, left, closed (Acute) - Physical Exam Vitals/I&O's: Vital Signs Temp Pulse Resp BP Pulse Ox 97.8 F 92 16 119/56 L 96 05/05/20 07:25 05/05/20 07:54 05/05/20 07:25 05/05/20 07:54 05/05/20 07:25 Oxygen Flow Rate (L/min) 2 Oxygen Delivery Method Nasal Cannula Weight: 193 lb 9.054 oz Body Mass Index (BMI) 37.8 Intake and Output for Last 24 Hours 05/03/20 05/04/20 05/05/20 23:59 23:59 23:59 Intake Total 480 / 480 460 / 460 Output Total 450 / 450 800 / 800 Balance -340 / -340 General: Alert, Oriented x3, Cooperative, No apparent distress, Well developed, Well nourished HEENT: Atraumatic, PERRLA, EOMI, Normocephalic Oral: No Gingival or Mucosal Lesions/ Ulcerations, Dry Mucosa Neck: Supple, Carotid Bruits, Bilateral - Versus radiation of the murmur at the second right intercostal space with radiation to the left ventricular outflow tract, JVD, Bilateral Lungs: Clear to auscultation, Normal air movement, No rhonchi, No wheeze, No rales, - - She is not tachypneic, no conversational dyspnea and no accessory muscle use. Cardiovascular: Irregular Rate, Murmur - She has a 2/6 systolic murmur heard best at the second right intercostal space with radiation to the left ventricular outflow tract, No Gallop, Tachycardic Abdomen: Bowel Sounds Present, Soft, Non Tender, Non-Distended, Obese, - - No guarding with palpation Extremities: No clubbing, No cyanosis, Capillary Refill Less than 3 Seconds, No Calf Tenderness, Edema - Mild pretibial and ankle edema Skin: No rashes, No breakdown, - - The skin over the lower extremities is very dry with cracking, especially of the heels. Has some tenderness over the heel and the left lower extremity but there is no skin breakdown and no redness. Musculoskeletal: No Tenderness to Palpation of Joints or Extremities, No Muscle Wasting, Arthritic Changes Neurological: Cranial nerves II-XII grossly intact, Neuro grossly intact Psych/Mental Status: Normal Affect, Appropriate Current Medications Acetaminophen (Acetaminophen 325 Mg Tablet) 650 mg PO Q6H PRN PRN PRN Reason: Pain 1-10 or Fever Last Admin: 05/04/20 19:48 Dose: 650 mg Documented by: Amiodarone HCl (Amiodarone 200 Mg Tablet) 100 mg PO DAILY [facility] Last Admin: 05/05/20 07:54 Dose: 100 mg Documented by: Amlodipine Besylate (Amlodipine 2.5 Mg Tablet) 2.5 mg PO DAILY [facility] Last Admin: 05/05/20 07:54 Dose: 2.5 mg Documented by: Apixaban (Apixaban 2.5 Mg Tablet) 2.5 mg PO BID [facility] Last Admin: 05/05/20 07:54 Dose: 2.5 mg Documented by: Ascorbic Acid (Ascorbic Acid 500 Mg Tablet) 500 mg PO BIDCM [facility] Last Admin: 05/05/20 07:54 Dose: 500 mg Documented by: Bisacodyl (Bisacodyl 10 Mg Suppository) 10 mg RC .PRN X 1 PRN PRN Reason: Constipation Calamine/Phenol (Menthol/Lanolin/Calamine/Znox 113 Gm Tube) 1 applic TOPICAL BID@0600,2200 [facility]; Protocol Last Admin: 05/05/20 06:03 Dose: 1 applic Documented by: Clopidogrel Bisulfate (Clopidogrel Bisulfate 75 Mg Tablet) 75 mg PO DINNER [facility] Last Admin: 05/04/20 16:03 Dose: 75 mg Documented by: Ferrous Sulfate ([facility] 325 Mg [facility]) [facility] Admin: 05/05/20 07:53 Dose: 325 mg Documented by: Furosemide (Furosemide 40 Mg Tablet) 40 mg PO DAILY [facility] Last Admin: 05/05/20 07:53 Dose: 40 mg Documented by: Lactobacillus Acidophilus (Lactobacillus Acidophilus) 1 tablet PO BID [facility] Last Admin: 05/05/20 07:53 Dose: 1 tablet Documented by: Levothyroxine Sodium (Levothyroxine 125 Mcg Tablet) 125 mcg PO DAILY@0600 [facility] Last Admin: 05/05/20 06:03 Dose: 125 mcg Documented by: Loperamide HCl (Loperamide 2 Mg Capsule) 2 mg PO Q2H PRN PRN PRN Reason: diarrhea, loose stools Magnesium Hydroxide (Magnesium Hydroxide 30 Ml Udc) 30 ml PO DAILY PRN PRN PRN Reason: Constipation Last Admin: 05/05/20 06:44 Dose: 30 ml Documented by: Metoprolol Tartrate (Metoprolol Tartrate 25 Mg Tablet) 12.5 mg PO BID [facility] Last Admin: 05/05/20 07:54 Dose: 12.5 mg Documented by: Nitroglycerin (Nitroglycerin (Inpatient Use) 0.4 Mg Tab.Subl) 0.4 mg SL Q5M PRN PRN Reason: CHEST Nystatin (Nystatin Powder 15gm Bottle) 1 applic TOPICAL BID@0600,2200 [facility]; Protocol Last Admin: 05/05/20 06:03 Dose: 1 applic Documented by: Oxycodone HCl (Oxycodone 5 Mg Tablet) 5 mg PO Q6H PRN PRN PRN Reason: Pain Score 6-10 Last Admin: 05/05/20 06:02 Dose: 5 mg Documented by: Pantoprazole Sodium (Pantoprazole Sodium 20 Mg Tablet) 20 mg PO DAILY [facility] Last Admin: 05/05/20 07:54 Dose: 20 mg Documented by: Senna/Docusate Sodium (Senna/Docusate Sodium 1 Tablet) 2 tablet PO BID [facility] Last Admin: 05/05/20 07:53 Dose: 2 tablet Documented by: Sodium Chloride (0.9% Saline Lock 10 Ml Syringe) 10 - 40 ml IV UD PRN PRN Reason: SALINE FLUSH Last Admin: 05/04/20 21:52 Dose: 10 ml Documented by: Assessment/Plan All Active Problems (Last Reviewed 05/05/20 @ 12:[address] Sepideh Cadena nti, DO) Debility (Acute) High thyroid stimulating hormone (TSH) level (Acute) Elevated serum globulin level (Acute) Acute kidney injury superimposed on CKD (Resolved) Fracture of femoral neck, left, closed (Acute) Impressions 1. Physical debility secondary to left hip fracture with ORIF on 05/01/[address] Rogers 2. Left hip fracture-this likely occurred at approximately [place] time and she has been ambulating with pain since then. 3. Constipation 4. Acute renal failure on chronic renal failure stage IIIb-resolved with hydration 5. Chronic renal failure stage IIIb 6. History of glucose intolerance with a hemoglobin A1c of 6.2% in 2015 7. Markedly elevated LDH and March 2020-AST and ALT were normal and so was the bilirubin. This raises the possibility of B12 deficiency or hemolysis as the etiology of chronic anemia. The bilirubin was normal so I doubt significant hemolysis. 8. Elevated globulins and total protein-raises the question of multiple myeloma as etiology of chronic normochromic normocytic anemia 9. PAF 10. Chronic anticoagulation with Eliquis 11. History of CAD 12. PTCA/KHOI in 2014 to the LAD 13. History of CABG x2 vessels in 2015 14. History of bioprosthetic aortic valve replacement in 2015 15. Hyperlipidemia 16. Essential hypertension 17. Obesity 18. COVID-19 infection in February 2020 19. Community-acquired pneumonia plus/minus congestive heart failure in March 2020 resulting in chronic hypoxic respiratory failure 20. Chronic hypoxic respiratory failure 21. Probable history of vitamin D deficiency-she tells me she had a vitamin deficiency but she does not recall what vitamin. 22. Hypothyroidism PLAN PT for gait stability OT for ADL's Analgesics as needed Bowel protocol Fall precautions Assess for Anxiety/Depression GI prophylaxis with Protonix 20 mg p.o. daily DVT prophylaxis not necessary since the patient is on Eliquis 2.5 mg twice daily for paroxysmal atrial fibrillation Follow up with Dr. Matteo West, Dr. Rogers and [facility] following DC from Rehab I recommend a B12, folate, serum protein electrophoresis and iron studies post discharge. Also recommend a DEXA and vitamin D level. Will check a Hemoccult stool and continue the PPI. Decrease the iron and vitamin C to once daily in light of constipation. Weigh daily while on rehab Start a calcium and vitamin D supplement Check the heart rate with exertion. Pulse ox on room air before and after ambulation prior to discharge Inpatient E&M: 42038 Init Hosp L3
[2020-05-05] MEDS: Acetaminophen 325 MG Tablet 650 MG PO ×2 (12:17→20:24)
[2020-05-05] MEDS: 0.9% Saline Lock 10 ML Syringe IV ×2 (12:17→20:29)
--- NOTE | 2020-05-05 12:47 | REHABEVAL_ITS ---
Admission Information Primary Diagnosis:: Debility secondary to left hip fracture with ORIF on 05/01/[address] Rogers. Status Changes from Prescreening?: No changes Identified Actual Problem List:: Falls, Skin Intergrity, Pain, ALteration in Cmfrt, Bowel, Constipation, Mobility Impaired, Self Care Deficit, BP, Hypertension, Alteration/ Air Exchange, Alteration-Leisure Activ. Potential Problem List:: DVT, Bleeding, Infection, UTI, Aspiration, Falls, Skin Integrity, Depression Risk of Complications DVT: - - Bilateral lower extremity Will wraps Bleeding: Monitor Lab Values, Nursing to Teach Precautions for anti-coagulation therapy., Wound, if applicable, to be assessed every shift., Stroke patients assessed for lethargy or change in status. Infection: Clinical Staff to Monitor for S/S of infection:, S/S of infection include fever, redness, warmth, etc. Urinary Tract Infection: Monitor for frequency, burning, discomfort, or incontinence., Nursing will obtain urine sample for urinalysis and C&S when ordered. Aspiration: Clinical staff will monitor for coughing, drooling, congestion., Speech will evaluate swallowing and dsyphasia., Nursing will monitor patient swallowing during meals. Falls: Patient will be evaluated for Fall Precautions, Patient will be placed on Fall Precautions as indicated per protocol. Skin Breakdown: Nursing will assess skin daily using assessment tool., Nursing will place on Skin Breakdown Precautions as indicated. Pain: Clinical staff will assess patient's pain level per protocol., Medications will be given, if needed, and the pain level reassessed., Other methods: Massage, distraction, decrease stimulus, etc. used PRN. Plan of Care Patient requires physician specializing in physical medicine and rehab oversight to provide close medical supervision of rehab issues including: Pain Management, Sleep Problems, Bowel and Bladder, Medical and co-morbidity Management, DVT prophylaxis, Rehabilitation Leadership, Coordination of treatment team Patient needs Physical Therapy: For a minimum of 1 hour, At least 5 out of 7 days Patient needs Physical Therapy to improve:: Mobility, Mobility, Mobility, Strengthening, Transfers, Stretching, ROM, Endurance, Stairs, Gait, Balance Patient needs Occupational Therapy: For a minimum of 1 hour, At least 5 out of 7 days Patient needs Occupational Therapy to improve ADL's incl.: Eating, Grooming, Bathing, Dressing, Toileting, Toilet transfers, Community Reintegration, Higher functioning activities, Household tasks, Adaptive Equipment, Splinting, Other activities as determined Patient requires 24/7 Rehabilitation Nursing for: Pain Issues, Identifying and preventing risk factors, Monitoring and reporting current medical conditions, Assisting with ambulation, transfer, and all ADL's, Teaching patients about disease process and medications, Family teaching, Providing safe environment, Bowel and Bladder Issues, Skin integrity, Medication Management Patient needs Production Supply Equipment Tender/ Case Management for: Discharge Planning, Arranging Home Equipment or Services, Family Interventions Patient needs Dietary and Nutrition Services for: Adequate Nutrition, Nutritional Supplements, Nutritional Education Goals Patient will remain: free from falls, or injury at time of discharge. Patient will perform bed mobility at: MOD I level of assist. Patient will complete transfers from bed to chair at: MOD I level of assist. Patient will ambulate: - - 50 feet with a wheeled walker at contact-guard assist Patient will complete upper body dressing at: MOD I level of assist. Patient will complete lower body dressing at: Standby Assist. Patient will complete toileting at: MOD I level of assist. Patient will perform bathing at: - - Supervision Patient will complete grooming at: MOD I level of assist. Patient will complete home management skills at: MOD I level of assist. Patient will achieve: with standby assist, - - 2 steps with least restrictive device Patient will have pain level of: of 3 or less Patient's skin will: remain intact, free from infection. Patient will receive: adequate nutrition. Discharge Planning Pt Prognosis for Sig. Practical Improv. w/in Reasonable Time: Good Estimated Length of stay (days): 21 Anticipated D/C Destination: Home w/ family or friends Was Preadmission Assessment Accurate?: Yes
[2020-05-05] MEDS: Calcium (Elemental) 500 MG Tablet PO (16:37)
[2020-05-05] MEDS: Clopidogrel Bisulfate 75 MG Tablet PO (16:37)
[2020-05-05 19:19] VITALS: BP 125/62; PULSE 97; RESP 18; TEMP 36.4; O2SAT 97
[2020-05-05 20:26] VITALS: PULSE 94
[2020-05-05 22:00] VITALS: PULSE 96; RESP 17
[2020-05-06] VITALS (7 sets, daily range): BP systolic 129–131; BP diastolic 67–70; PULSE 96–105; RESP 16–18; TEMP 36.7; O2SAT 94–98
[2020-05-06] MEDS: Levothyroxine 125 MCG Tablet PO (05:21)
[2020-05-06] MEDS: oxyCODONE 5 MG Tablet PO ×5 (05:48→22:02)
[2020-05-06] MEDS: Menthol/Lanolin/Calamine/Znox 113 GM Tube 1 APPLIC TOPICAL ×2 (05:52→21:59)
[2020-05-06] MEDS: Nystatin Powder 15gm Bottle 1 APPLIC TOPICAL ×2 (05:52→21:59)
[2020-05-06] MEDS: Ferrous Sulfate 325 MG Tablet PO ×2 (08:34→16:41)
[2020-05-06] MEDS: Metoprolol Tartrate 25 MG Tablet 12.5 MG PO ×2 (08:34→21:57)
[2020-05-06] MEDS: Calcium (Elemental) 500 MG Tablet PO ×2 (08:34→16:41)
[2020-05-06] MEDS: Furosemide 40 MG Tablet PO (08:34)
[2020-05-06] MEDS: Amiodarone 200 MG Tablet 100 MG PO (08:34)
[2020-05-06] MEDS: APIXABAN 2.5 MG TABLET PO ×2 (08:34→21:56)
[2020-05-06] MEDS: amLODIPine 2.5 MG Tablet PO (08:35)
[2020-05-06] MEDS: Ascorbic Acid 500 MG Tablet PO (08:35)
[2020-05-06] MEDS: Pantoprazole Sodium 20 MG Tablet PO (08:35)
[2020-05-06] MEDS: Senna/Docusate Sodium 1 Tablet 2 TABLET PO ×2 (08:35→21:57)
[2020-05-06] MEDS: Acetaminophen 325 MG Tablet 650 MG PO (08:36)
--- NOTE | 2020-05-06 10:44 | PN_ITS ---
Progress Note Afebrile VSS-the heart rate has ranged from 92-105. Blood pressure is well controlled. She is currently 94% on a 2 L nasal cannula. Maintaining appropriate oxygen saturation on NC Oral intake is adequate no weight was done this AM....will have nursing do it now Discussed with nursing - Nursing feels the oxycodone should be given every 4 paul rs as needed because the pain relief does not last 6 hours. she has not had any confusion or drowsiness with administration of the Oxycodone Reviewed the PT/OT notes Medication list reviewed. Denies CP, SOB, lightheadedness, N/V/abd pain, cough, calf pain the stool for occult blood is negative alert MM are dry lungs with scattered coarse crackles, not tachypneic, no conversational dyspnea H - reg with some premature beats abd - soft and NT no significant ankle edema - Lasix was decreased to 40 mg once a day in the hospital instead of 40 mg BID due to acute on CRF. No CHF at this time so will continue with 40 mg once a day no calf pain no rashes the incision is intact and has no erythema and no increased warmth to touch or purulent DC Impressions 1. Physical debility secondary to multiple factors including left hip fracture and subsequent ORIF, COVID-19 infection in late February with a second admission to the hospital in March for pneumonia and congestive heart failure, age 2. Left hip fx - walked on the fx for 3 months prior to having XRAYS that showed a fx 3. abnormal CXR - delayed effects of COVID? 4. CAD 5. hx of a bioprosthetic AVR and a CABG in 2015 5. PAF on chronic anticoagulation 6. CRF stage 3 b 7. Acute kidney injury on chronic renal failure stage IIIb-resolved 8. Chronic anemia-etiology? 9. Chronic hypoxic respiratory failure starting in March when she was admitted for pneumonia/CHF. Check a pulse ox on RA with ambulation prior to DC - she is hoping she will no longer require oxygen when she goes home she should have a follow up CXR in about 4 weeks Continue the decreased dose of Lasix now and salt restriction continue therapy Will defer W/U for etiology of the chronic anemia to PCP STROKE Vital Signs/Narrative: Vital Signs Temp Pulse Resp BP Pulse Ox 05/06/20 09:34 96 05/06/20 08:34 96 129/67 H 05/06/20 07:27 94 05/06/20 07:03 98.1 F 105 H 16 129/67 H 94 Inpatient E&M: [id number] Subs Hosp L2
[2020-05-06] MEDS: 0.9% Saline Lock 10 ML Syringe IV ×2 (11:52→22:08)
[2020-05-06] MEDS: Clopidogrel Bisulfate 75 MG Tablet PO (16:41)
[2020-05-07] MEDS: Levothyroxine 125 MCG Tablet PO (06:37)
[2020-05-07] MEDS: Nystatin Powder 15gm Bottle 1 APPLIC TOPICAL ×2 (06:39→21:20)
[2020-05-07] MEDS: Menthol/Lanolin/Calamine/Znox 113 GM Tube 1 APPLIC TOPICAL ×2 (06:40→21:29)
[2020-05-07 07:34] VITALS: BP 136/62; PULSE 95; RESP 18; TEMP 36.7; O2SAT 96
[2020-05-07 07:49] VITALS: BP 136/62; PULSE 95
[2020-05-07] MEDS: Metoprolol Tartrate 25 MG Tablet 12.5 MG PO ×2 (07:49→21:22)
[2020-05-07] MEDS: Ascorbic Acid 500 MG Tablet PO (07:49)
[2020-05-07] MEDS: amLODIPine 2.5 MG Tablet PO (07:49)
[2020-05-07] MEDS: Pantoprazole Sodium 20 MG Tablet PO (07:49)
[2020-05-07] MEDS: Senna/Docusate Sodium 1 Tablet 2 TABLET PO ×2 (07:49→21:19)
[2020-05-07] MEDS: Furosemide 40 MG Tablet PO (07:49)
[2020-05-07] MEDS: Amiodarone 200 MG Tablet 100 MG PO (07:49)
[2020-05-07] MEDS: Calcium (Elemental) 500 MG Tablet PO ×2 (07:50→16:17)
[2020-05-07] MEDS: oxyCODONE 5 MG Tablet PO ×3 (07:50→21:34)
[2020-05-07] MEDS: APIXABAN 2.5 MG TABLET PO ×2 (07:50→21:25)
[2020-05-07] MEDS: Ferrous Sulfate 325 MG Tablet PO ×2 (07:50→16:17)
[2020-05-07 08:06] VITALS: O2SAT 92
--- NOTE | 2020-05-07 10:19 | PCM.PN.BLA ---
Progress Note Afebrile VSS Maintaining appropriate oxygen saturation on RA at rest (was 96% on room air this a.m.) Oral intake is adequate. I&O is about even daily. The weight today is 188 pounds and 0.9 ounces which is stable Discussed with nursing - She is having problems with constipation despite the senna she has been taking BID Reviewed the PT/OT/ST notes Medication list reviewed. Alber is c/o pain in the left groin and both buttocks. She denies numbness. She has had sciatica in the past. No significant low back pain. She denies CP, SOB, palpitations, lightheadedness. No dysuria alert and oriented x 3 MMM Lungs - few scattered coarse crackles with decreased BS in the bases today Heart tachycardic with irregular rhythm abd - soft and non-tender no significant ankle edema no rashes Impressions 1. Physical debility secondary to left hip fracture and recent ORIF 2. History of systolic and diastolic congestive heart failure-stable 3. COVID-19 infection in February and pneumonia/CHF in March necessitating another hospital admission 4. Status post bioprosthetic aortic valve replacement in 2016 along with CABG 5. Chronic anemia-etiology? 6. Chronic renal failure stage IIIb 7. Hypertension 8. Paroxysmal atrial fibrillation Lab tomorrow Check the pulse ox on RA before and after ambulation. She hopes to be off oxygen at [place]. She is pushing to go home because her wants her home she was started on Calcium and Vitamin D yesterday. Add Metamucil to the senna continue therapy needs W/U for etiology of anemia as OP if this has not recently been done STROKE Vital Signs/Narrative: Vital Signs Temp Pulse Resp BP Pulse Ox 05/07/20 08:06 92 05/07/20 07:49 95 136/62 H 05/07/20 07:34 98.1 F 95 18 136/62 H 96 Inpatient E&M: [id number] Subs Hosp L2
[2020-05-07] MEDS: Clopidogrel Bisulfate 75 MG Tablet PO (16:17)
[2020-05-07] MEDS: MethylPREDNISolone DosePak 4 MG BOX PO ×2 (16:17→21:21)
[2020-05-07 19:16] VITALS: BP 142/78; PULSE 110; RESP 18; TEMP 36.7; O2SAT 93
[2020-05-07 21:22] VITALS: PULSE 110
[2020-05-07] MEDS: Psyllium 1 PACKET PO (21:25)
[2020-05-07] MEDS: 0.9% Saline Lock 10 ML Syringe IV (21:38)
[2020-05-07 22:00] VITALS: PULSE 110; RESP 18
--- NOTE | 2020-05-07 23:48 | NURSING ---
SL to right wrist d/c'd d/t occlusion and pain. Tip intact.
[2020-05-08] MEDS: Levothyroxine 125 MCG Tablet PO (05:42)
[2020-05-08] MEDS: Menthol/Lanolin/Calamine/Znox 113 GM Tube 1 APPLIC TOPICAL ×2 (05:42→21:04)
[2020-05-08] MEDS: Nystatin Powder 15gm Bottle 1 APPLIC TOPICAL ×2 (05:43→21:05)
[2020-05-08 05:50] LABS: Hematocrit 31.3 % (37-47); Hemoglobin 9.3 g/dL (12.0-15.0)
--- NOTE | 2020-05-08 05:52 | NURSING ---
Pt 92% on RA while sitting in recliner post ADLs.
[2020-05-08 06:36] LABS: Anion Gap 8 (5-15); BUN 35 mg/dL (7-18); BUN/Creat Ratio 28.7 RATIO (10-20); Calcium,Total 9.3 mg/dL (8.5-10.1); Chloride 103 mmol/L (98-107); Creatinine, Serum 1.22 mg/dL (0.55-1.02); EST Glomerular Filtration Rate 45 mL/min (>60); Est Glom Filt Rate - Afr Amer 54 mL/min (>60); Glucose 143 mg/dL (74-106); Potassium 5.1 mmol/L (3.5-5.1); Sodium Level 138 mmol/L (136-145)
[2020-05-08] MEDS: MethylPREDNISolone DosePak 4 MG BOX PO ×4 (07:45→21:06)
[2020-05-08] MEDS: Ferrous Sulfate 325 MG Tablet PO ×2 (07:45→16:29)
[2020-05-08] MEDS: Calcium (Elemental) 500 MG Tablet PO ×2 (07:46→16:30)
[2020-05-08] MEDS: APIXABAN 2.5 MG TABLET PO ×2 (07:46→21:06)
[2020-05-08] MEDS: Amiodarone 200 MG Tablet 100 MG PO (07:46)
[2020-05-08 07:47] VITALS: PULSE 109
[2020-05-08] MEDS: Metoprolol Tartrate 25 MG Tablet 12.5 MG PO (07:47)
[2020-05-08] MEDS: amLODIPine 2.5 MG Tablet PO (07:47)
[2020-05-08] MEDS: Furosemide 40 MG Tablet PO (07:47)
[2020-05-08] MEDS: Senna/Docusate Sodium 1 Tablet 2 TABLET PO ×2 (07:47→21:05)
[2020-05-08] MEDS: Ascorbic Acid 500 MG Tablet PO (07:47)
[2020-05-08] MEDS: Pantoprazole Sodium 20 MG Tablet PO (07:47)
[2020-05-08] MEDS: oxyCODONE 5 MG Tablet PO ×3 (07:48→21:11)
[2020-05-08 08:45] VITALS: BP 151/85; PULSE 109; RESP 16; TEMP 36.6; O2SAT 94
[2020-05-08 09:22] VITALS: PULSE 109
--- NOTE | 2020-05-08 11:22 | CASEMGMT ---
Social Work IDT met with patient and dtr via conference call for Team meeting. Discussed patient's progress in therapy and nursing. Pt is using O2 upon exertion but none at rest. Explained [employer] insurance with [employer]D 05/09 and continued stay is not guaranteed. The goal is for to DC home with whom can assist with anything pt needs, like toileting tasks. Pt used [facility] prior and would like to use them at DC. Pt requesting no DME needs. SW to continue to follow. Kriss Coates, PRODUCTION FLOATER TIRE MOLD ENGRAVER
--- NOTE | 2020-05-08 11:42 | PN_ITS ---
Progress Note Alber was seen on TEAM rounds today and her dtr Amanda participated by phone. Afebrile VSS-heart rate has been increased to the low 100s in the past 24 hours. Maintaining appropriate oxygen saturation on RA -she is 95 to 96% on room air at rest and 90% with ambulation. Oral intake is adequate Last bowel movement was 05/07/2020. Discussed with nursing - no problems that need addressed Reviewed the PT/OT/ST notes - still requiring a lot of help with toileting Medication list reviewed. All lab was personally reviewed. Hemoglobin is up to 9.3 today from 8.3 on 05/04/2020. Creatinine is stable at 1.22. This is actually better than her baseline. Potassium is 5.1. Serum bicarb is normal at 27. Glucose is mildly elevated this morning at 143 which is likely secondary to the Medrol Dosepak. With the supplementation of calcium and vitamin D the calcium is now normal at 9.3. The pain in the buttocks and the groin are better today with the initiation of the Medrol dosepak yesterday. She denies SOB and also denies CP. She has no edema in her legs. She is sleeping well at night with no orthopnea. She has no complaints at this time. Alert and oriented x3. Makes good eye contact. She is appropriate. She is pleasant and talkative. Mucous membranes are moist with no mucosal lesions Lungs-air exchange is much improved over admission. She has diminished breath sounds in the left base but the scattered crackles have resolved. She is doing the incentive spirometry regularly. She denies cough. Heart-irreg with increased HR in the low 100's. No gallop Abdomen-obese, soft, nontender, nondistended, good bowel function Trace ankle edema, Will wraps are in place in her legs are dependent. No rashes and no skin breakdown Incision is intact with no periincisional erythema, no increased warmth to touch and no purulent discharge. Impressions 1. Physical debility secondary to multiple medical issues over the past 3 harvey hs including hip fracture, COVID-19 infection, pneumonia and recent ORIF of the left hip. Hip fracture was not diagnosed for approximately 3 months after she fell and fractured it. 2. Acute kidney injury on chronic renal failure stage IIIb.-Resolved. 3. Chronic anemia-stable 4. Hypertension 5. Paroxysmal atrial fibrillation 6. Chronic anticoagulation with Eliquis 7. History of Takotsubo's cardiomyopathy-most recent EF is 40 to 45% 8. Coronary artery disease with history of CABG 9. Chronic congestive heart failure, systolic and diastolic 10. History of bioprosthetic aortic valve replacement in 2016 11. Chronic hypoxic respiratory failure that started following Covid infection and pneumonia. Pulse ox is 95 to 96% on room air at rest and 90% with ambulation now. I suspect we will be able to discontinue oxygen prior to discharge. 12. Sciatica with bilateral pain in the buttocks and the groin on the left. Improving with a Medrol Dosepak. If the pain recurs following discontinuation of the steroid would consider an epidural block. Continue therapy Alber would like to be discharged on 05/14/2020 and her will be able to help her with toileting at home. Continue current medications but increase the Lopressor to 25 mg twice daily to help with heart rate control while in A. fib. Alber generally takes Lasix 40 mg twice daily however she was in acute renal failure at admission. She is doing well on 40 mg of Lasix daily now and a salt restricted diet. She is being educated on the importance of salt restriction and we talked today about weighing herself daily and if her weight increases by 5 pounds in 1 week taking an extra Lasix until she is back at baseline. STROKE Vital Signs/Narrative: Vital Signs Temp Pulse Resp BP Pulse Ox 05/08/20 09:22 109 H 05/08/20 08:45 97.8 F 109 H 16 151/85 H 94 05/08/20 07:47 109 H Inpatient E&M: [id number] Subs Hosp L2
[2020-05-08] MEDS: Clopidogrel Bisulfate 75 MG Tablet PO (16:30)
[2020-05-08 20:58] VITALS: BP 134/73; PULSE 104; RESP 18; TEMP 36.8; O2SAT 96
[2020-05-08 21:06] VITALS: BP 134/73; PULSE 104
[2020-05-08] MEDS: Metoprolol Tartrate 25 MG Tablet PO (21:06)
[2020-05-08] MEDS: Acetaminophen 325 MG Tablet 650 MG PO (21:11)
[2020-05-09] MEDS: Levothyroxine 125 MCG Tablet PO (05:49)
[2020-05-09] MEDS: Nystatin Powder 15gm Bottle 1 APPLIC TOPICAL ×2 (05:50→21:19)
[2020-05-09] MEDS: Menthol/Lanolin/Calamine/Znox 113 GM Tube 1 APPLIC TOPICAL ×2 (05:50→21:17)
[2020-05-09] MEDS: oxyCODONE 5 MG Tablet PO ×3 (07:19→21:28)
[2020-05-09 07:42] VITALS: BP 137/72; PULSE 107; RESP 18; TEMP 36.4; O2SAT 94
[2020-05-09] MEDS: MethylPREDNISolone DosePak 4 MG BOX PO ×4 (07:53→21:19)
[2020-05-09] MEDS: Ferrous Sulfate 325 MG Tablet PO ×2 (07:53→16:20)
[2020-05-09] MEDS: Amiodarone 200 MG Tablet 100 MG PO (07:53)
[2020-05-09] MEDS: Calcium (Elemental) 500 MG Tablet PO ×2 (07:53→16:20)
[2020-05-09 07:54] VITALS: PULSE 107
[2020-05-09] MEDS: Metoprolol Tartrate 25 MG Tablet PO ×2 (07:54→21:18)
[2020-05-09] MEDS: Pantoprazole Sodium 20 MG Tablet PO (07:54)
[2020-05-09] MEDS: amLODIPine 2.5 MG Tablet PO (07:54)
[2020-05-09] MEDS: Psyllium 1 PACKET PO (07:54)
[2020-05-09] MEDS: Furosemide 40 MG Tablet PO (07:54)
[2020-05-09] MEDS: APIXABAN 2.5 MG TABLET PO ×2 (07:54→21:17)
[2020-05-09] MEDS: Ascorbic Acid 500 MG Tablet PO (07:55)
[2020-05-09] MEDS: Senna/Docusate Sodium 1 Tablet 2 TABLET PO (07:55)
[2020-05-09] MEDS: Clopidogrel Bisulfate 75 MG Tablet PO (16:20)
[2020-05-09 19:29] VITALS: BP 132/66; PULSE 98; RESP 18; TEMP 37.2; O2SAT 94
[2020-05-09 21:18] VITALS: BP 132/66; PULSE 98
[2020-05-09] MEDS: Acetaminophen 325 MG Tablet 650 MG PO (21:29)
[2020-05-10] MEDS: oxyCODONE 5 MG Tablet PO ×4 (02:47→23:26)
--- NOTE | 2020-05-10 04:36 | NURSING ---
agree with nursing primer inserting machine adjuster assessment. llrn.
[2020-05-10] MEDS: Menthol/Lanolin/Calamine/Znox 113 GM Tube 1 APPLIC TOPICAL ×2 (05:21→20:56)
[2020-05-10] MEDS: Levothyroxine 125 MCG Tablet PO (05:21)
[2020-05-10] MEDS: Nystatin Powder 15gm Bottle 1 APPLIC TOPICAL ×2 (05:21→20:58)
[2020-05-10] MEDS: Acetaminophen 325 MG Tablet 650 MG PO (06:18)
[2020-05-10 07:14] VITALS: O2SAT 94
[2020-05-10 08:23] VITALS: BP 137/67; PULSE 79; RESP 18; TEMP 36.4; O2SAT 93
[2020-05-10] MEDS: APIXABAN 2.5 MG TABLET PO ×2 (08:35→20:56)
[2020-05-10] MEDS: Furosemide 40 MG Tablet PO (08:35)
[2020-05-10] MEDS: amLODIPine 2.5 MG Tablet PO (08:36)
[2020-05-10] MEDS: Amiodarone 200 MG Tablet 100 MG PO (08:36)
[2020-05-10] MEDS: Ascorbic Acid 500 MG Tablet PO (08:36)
[2020-05-10] MEDS: MethylPREDNISolone DosePak 4 MG BOX PO ×3 (08:37→20:58)
[2020-05-10] MEDS: Psyllium 1 PACKET PO (08:38)
[2020-05-10] MEDS: Ferrous Sulfate 325 MG Tablet PO ×2 (08:39→17:07)
[2020-05-10 08:40] VITALS: PULSE 90
[2020-05-10] MEDS: Calcium (Elemental) 500 MG Tablet PO ×2 (08:40→17:08)
[2020-05-10] MEDS: Metoprolol Tartrate 25 MG Tablet PO ×2 (08:40→20:57)
[2020-05-10] MEDS: Pantoprazole Sodium 20 MG Tablet PO (08:43)
[2020-05-10 09:21] VITALS: O2SAT 95
[2020-05-10] MEDS: Clopidogrel Bisulfate 75 MG Tablet PO (17:07)
[2020-05-10 20:37] VITALS: BP 158/70; PULSE 96; RESP 18; TEMP 36.7; O2SAT 95
[2020-05-10 20:57] VITALS: BP 158/70; PULSE 96
[2020-05-10] MEDS: Senna/Docusate Sodium 1 Tablet 2 TABLET PO (20:59)
[2020-05-11] MEDS: Acetaminophen 325 MG Tablet 650 MG PO (03:42)
[2020-05-11] MEDS: Menthol/Lanolin/Calamine/Znox 113 GM Tube 1 APPLIC TOPICAL ×2 (05:49→21:14)
[2020-05-11] MEDS: Nystatin Powder 15gm Bottle 1 APPLIC TOPICAL ×2 (05:49→21:15)
[2020-05-11] MEDS: Levothyroxine 125 MCG Tablet PO (05:49)
[2020-05-11 06:46] VITALS: O2SAT 95
[2020-05-11 08:23] VITALS: BP 134/79; PULSE 85; RESP 16; TEMP 36.2; O2SAT 94
[2020-05-11 08:44] VITALS: PULSE 86
[2020-05-11] MEDS: Pantoprazole Sodium 20 MG Tablet PO (08:44)
[2020-05-11] MEDS: Ascorbic Acid 500 MG Tablet PO (08:44)
[2020-05-11] MEDS: APIXABAN 2.5 MG TABLET PO ×2 (08:44→21:14)
[2020-05-11] MEDS: Metoprolol Tartrate 25 MG Tablet PO ×2 (08:44→21:14)
[2020-05-11] MEDS: Ferrous Sulfate 325 MG Tablet PO ×2 (08:44→17:00)
[2020-05-11] MEDS: Amiodarone 200 MG Tablet 100 MG PO (08:44)
[2020-05-11] MEDS: Calcium (Elemental) 500 MG Tablet PO ×2 (08:46→17:00)
[2020-05-11] MEDS: amLODIPine 2.5 MG Tablet PO (08:46)
[2020-05-11] MEDS: MethylPREDNISolone DosePak 4 MG BOX PO ×2 (08:47→21:16)
[2020-05-11] MEDS: Furosemide 40 MG Tablet PO (08:47)
[2020-05-11] MEDS: oxyCODONE 5 MG Tablet PO ×3 (08:49→21:15)
[2020-05-11] MEDS: Clopidogrel Bisulfate 75 MG Tablet PO (17:00)
[2020-05-11 19:03] VITALS: BP 149/80; PULSE 91; RESP 16; TEMP 36.7; O2SAT 97
[2020-05-11 21:14] VITALS: BP 149/80; PULSE 91
[2020-05-11] MEDS: Senna/Docusate Sodium 1 Tablet 2 TABLET PO (21:15)
[2020-05-12] MEDS: oxyCODONE 5 MG Tablet PO ×3 (05:20→21:01)
[2020-05-12] MEDS: Menthol/Lanolin/Calamine/Znox 113 GM Tube 1 APPLIC TOPICAL ×2 (05:21→20:59)
[2020-05-12] MEDS: Nystatin Powder 15gm Bottle 1 APPLIC TOPICAL ×2 (05:21→21:00)
[2020-05-12] MEDS: Levothyroxine 125 MCG Tablet PO (06:13)
[2020-05-12] MEDS: Acetaminophen 325 MG Tablet 650 MG PO ×2 (06:16→21:02)
[2020-05-12 07:14] VITALS: O2SAT 96
--- NOTE | 2020-05-12 07:21 | NURSING ---
0530 Ennis removed to left hip (11 proximal and 9 distal). Site intact, no discharge, well approximated. Pt tolerated well w/out any c/o pain.
[2020-05-12 07:55] VITALS: BP 134/43; PULSE 66; RESP 16; TEMP 36.2; O2SAT 94
[2020-05-12] MEDS: APIXABAN 2.5 MG TABLET PO ×2 (08:08→20:59)
[2020-05-12] MEDS: Senna/Docusate Sodium 1 Tablet 2 TABLET PO ×2 (08:08→21:01)
[2020-05-12] MEDS: Psyllium 1 PACKET PO (08:08)
[2020-05-12 08:09] VITALS: BP 134/43; PULSE 66
[2020-05-12] MEDS: Metoprolol Tartrate 25 MG Tablet PO ×2 (08:09→21:00)
[2020-05-12] MEDS: Ascorbic Acid 500 MG Tablet PO (08:09)
[2020-05-12] MEDS: Calcium (Elemental) 500 MG Tablet PO ×2 (08:09→16:24)
[2020-05-12] MEDS: Ferrous Sulfate 325 MG Tablet PO ×2 (08:09→16:24)
[2020-05-12] MEDS: Pantoprazole Sodium 20 MG Tablet PO (08:09)
[2020-05-12] MEDS: Furosemide 40 MG Tablet PO (08:09)
[2020-05-12] MEDS: Amiodarone 200 MG Tablet 100 MG PO (08:09)
[2020-05-12] MEDS: amLODIPine 2.5 MG Tablet PO ×2 (08:09→21:01)
[2020-05-12] MEDS: MethylPREDNISolone DosePak 4 MG BOX PO (08:10)
--- NOTE | 2020-05-12 09:57 | CASEMGMT ---
Social Work IDT agreeable to pt DC 05/14. Spoke with pt and can transport pt. Referral made to [facility] PT/OT/SN. No DME needs. Plan: DC home with 05/14, [facility] PT/OT/SN Kriss Coates, DATA MANAGEMENT ASSOCIATE CAR WHACKER
--- NOTE | 2020-05-12 10:57 | PCM.PN.BLA ---
Progress Note Afebrile VSS-systolic blood pressure tends to be elevated toward the end of the day, possibly secondary to end of dose failure of amlodipine. Maintaining appropriate oxygen saturation on RA Oral intake is good Weight has come down from 188 pounds and 11 ounces on 2320 to 185 pounds and 6 ounces today. Discussed with nursing - no problems that need addressed Reviewed the PT/OT notes at TEAM meeting today we were all in agreement that she will be ready for DC on the 31rst. Medication list reviewed. Pain is well controlled at the present time. she denies CP or SOB. No N/V/abd pain. good bowel function. Alert and oriented x3. Makes good eye contact. She is appropriate. She is pleasant and talkative. She appears comfortable sitting in the recliner. Mucous membranes are moist with no mucosal lesions Lungs-air exchange is much improved over admission. She has diminished breath sounds in the left base but the scattered crackles have resolved. She is doing the incentive spirometry regularly. She denies cough. Heart-irreg with HR usually in the 90's.....no longer in the 100's, No gallop Abdomen-obese, soft, nontender, nondistended, good bowel sounds and no guarding with palpation Trace ankle edema, Will wraps are in place in her legs are dependent. No rashes and no skin breakdown Incision is intact with no periincisional erythema, no increased warmth to touch and no purulent discharge. Impressions 1. Physical debility secondary to hip fracture 2. Status post ORIF of the left hip 3. Chronic anemia-stable 4. Chronic anticoagulation with Eliquis for PAF 5. Mild cardiomyopathy with ejection fraction of 40 to 45% 6. CAD 7. Dehydration-doing well with decrease in furosemide to only once a day. 8. Sciatica-better on a Medrol Dosepak 9. Covid infection with pneumonia and hypoxemia in early 2020 -she has been weaned off oxygen and is maintaining appropriate oxygen saturation on room air at this time. 10. Hypertension-not adequately controlled yet Increase the amlodipine to BID Continue the Furosemide only once a day at DC and have her weigh herself every morning and record and will increase Lasix if the weight increases by more than 4 lbs from baseline until weight is back to baseline. STROKE Vital Signs/Narrative: Vital Signs Temp Pulse Resp BP Pulse Ox 05/12/20 08:09 66 134/43 H 05/12/20 07:55 97.1 F L 66 16 134/43 H 94 05/12/20 07:14 96 Inpatient E&M: [id number] Subs Hosp L2
[2020-05-12] MEDS: Clopidogrel Bisulfate 75 MG Tablet PO (16:24)
[2020-05-12 19:31] VITALS: BP 135/91; PULSE 95; RESP 18; TEMP 36.3; O2SAT 95
[2020-05-12 21:00] VITALS: BP 135/91; PULSE 95
--- NOTE | 2020-05-13 01:58 | NURSING ---
Reviewed and agree with [employer] documentation and charting.
[2020-05-13] MEDS: Nystatin Powder 15gm Bottle 1 APPLIC TOPICAL ×2 (06:12→21:48)
[2020-05-13] MEDS: Menthol/Lanolin/Calamine/Znox 113 GM Tube 1 APPLIC TOPICAL ×2 (06:12→21:48)
[2020-05-13] MEDS: Levothyroxine 125 MCG Tablet PO (06:14)
[2020-05-13] MEDS: oxyCODONE 5 MG Tablet PO ×3 (07:10→21:43)
[2020-05-13] MEDS: Acetaminophen 325 MG Tablet 650 MG PO (07:11)
[2020-05-13 07:25] VITALS: O2SAT 93
[2020-05-13 07:44] VITALS: BP 142/60; PULSE 91; RESP 16; TEMP 36.2; O2SAT 93
[2020-05-13] MEDS: amLODIPine 2.5 MG Tablet PO ×2 (07:49→21:45)
[2020-05-13] MEDS: Ferrous Sulfate 325 MG Tablet PO ×2 (07:49→16:25)
[2020-05-13] MEDS: Calcium (Elemental) 500 MG Tablet PO ×2 (07:49→16:25)
[2020-05-13] MEDS: Psyllium 1 PACKET PO (07:49)
[2020-05-13] MEDS: Pantoprazole Sodium 20 MG Tablet PO (07:49)
[2020-05-13] MEDS: Senna/Docusate Sodium 1 Tablet 2 TABLET PO (07:49)
[2020-05-13] MEDS: Ascorbic Acid 500 MG Tablet PO (07:49)
[2020-05-13 07:50] VITALS: BP 142/60; PULSE 91
[2020-05-13] MEDS: Furosemide 40 MG Tablet PO (07:50)
[2020-05-13] MEDS: Metoprolol Tartrate 25 MG Tablet PO ×2 (07:50→21:46)
[2020-05-13] MEDS: APIXABAN 2.5 MG TABLET PO ×2 (07:50→21:46)
[2020-05-13] MEDS: Amiodarone 200 MG Tablet 100 MG PO (07:50)
[2020-05-13] MEDS: Clopidogrel Bisulfate 75 MG Tablet PO (16:25)
[2020-05-13 19:15] VITALS: BP 133/65; PULSE 94; RESP 16; TEMP 36.7; O2SAT 97
[2020-05-13] MEDS: MELATONIN 10 MG TABLET PO (21:45)
[2020-05-13 21:46] VITALS: PULSE 94
[2020-05-13 22:00] VITALS: PULSE 98; RESP 16
[2020-05-14] MEDS: Acetaminophen 325 MG Tablet 650 MG PO (04:36)
[2020-05-14] MEDS: Levothyroxine 125 MCG Tablet PO (06:19)
[2020-05-14] MEDS: Menthol/Lanolin/Calamine/Znox 113 GM Tube 1 APPLIC TOPICAL (06:20)
[2020-05-14] MEDS: Nystatin Powder 15gm Bottle 1 APPLIC TOPICAL (06:20)
[2020-05-14 08:08] VITALS: BP 143/66; PULSE 92
[2020-05-14] MEDS: Senna/Docusate Sodium 1 Tablet 2 TABLET PO (08:08)
[2020-05-14] MEDS: Psyllium 1 PACKET PO (08:08)
[2020-05-14] MEDS: Pantoprazole Sodium 20 MG Tablet PO (08:08)
[2020-05-14] MEDS: amLODIPine 2.5 MG Tablet PO (08:08)
[2020-05-14] MEDS: Calcium (Elemental) 500 MG Tablet PO (08:08)
[2020-05-14] MEDS: Ferrous Sulfate 325 MG Tablet PO (08:08)
[2020-05-14] MEDS: Metoprolol Tartrate 25 MG Tablet PO (08:08)
[2020-05-14] MEDS: Ascorbic Acid 500 MG Tablet PO (08:08)
[2020-05-14] MEDS: Furosemide 40 MG Tablet PO (08:09)
[2020-05-14] MEDS: APIXABAN 2.5 MG TABLET PO (08:09)
[2020-05-14] MEDS: Amiodarone 200 MG Tablet 100 MG PO (08:09)
[2020-05-14 08:11] VITALS: O2SAT 92
[2020-05-14] MEDS: oxyCODONE 5 MG Tablet PO ×2 (08:13→12:42)
--- NOTE | 2020-05-14 08:53 | DCINST_ITS ---
- Discharge Diagnoses Current Active Problems: Current Active and Chronic Problems (Last Reviewed 05/05/20 @ 12:[address] Sepideh Rivers, DO) Debility (Acute) Due to recent hip fracture and subsequent ORIF. Left atrial enlargement (Chronic) Tricuspid regurgitation (Chronic) 2+ in April 2020 Anemia (Chronic) High thyroid stimulating hormone (TSH) level (Acute) Elevated serum globulin level (Acute) Anemia of chronic renal failure, stage 3b (Chronic) Chronic hypoxemic respiratory failure (Chronic) [id number] condition (Chronic) With development of chronic respiratory failure with hypoxemia. 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) Nonrheumatic mitral (valve) insufficiency (Chronic) 1+ Secondary pulmonary arterial hypertension (Chronic) Paroxysmal atrial fibrillation (Chronic) Takotsubo cardiomyopathy (Chronic) H/O coronary artery bypass surgery (Chronic 01/2016) CABG x 2 VALERIO-LAD, 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/2015 Atherosclerosis of coronary artery of makah heart without angina pectoris (Chronic) CABG x 2 VALERIO-LAD, 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/2015 History of aortic valve replacement with bioprosthetic valve (Chronic 01/2016) You will use the following diet at home:: Cardiac - low salt and low fat, Other - I would try to keep your fluid intake to no more than 1500 CC's a day. This is equivalent to 50 Oz a day. If you can do this you will likely be able to stay on Lasix once a day and it will tend to keep you out of heart failure. Your food should be the consistency of: Regular Your liquids should be the consistency of: Regular/Thin Discharge Activity: May Not Drive - until Dr. Rogers tells you it is OK to drive, May not drive while taking narcotic pain medications., May Shower, Use Walker Weight Bearing Status: Full weight bearing Keep extremity elevated above heart level: Left Leg Additional Activity Instructions:: make sure to do the exercises given to you by the therapists 1-2 times a day Call your doctor if your incision/area has: Continuous Slow Oozing, Sudden Increased Bleeding, Increased Pain/ Swelling, Increased Redness, Foul Smelling Discharge Call your doctor if you observe: Fever of 101 or Higher, Coldness, Increased Pain, Numbness or Tingling, Inability to have a bowel movement, Shortness of breath, Dizziness, Fainting spells, Chest pain, Increased palpitations (irregular heartbeat), Calf discomfort, Uncontrolled pain, - - DO NOT use alcohol with narcotic pain medication. DO NOT make important decisions while taking narcotic medication. Do not drive while taking narcotic medication. If you have problems while taking your medication (rash, itching, nausea etc.) call your primary care doctor. Suture Line Care: Avoid Pulling/Pushing, Avoid Pinching/Bending Cleanse incision/area with: Soap & Water Additional Dressing/Incision Instructions:: look the the incision every day for the next 2 weeks and if it is red, swollen, warm to touch or has DC call Dr. Rogers's office Instructions: Cellulitis - Causes,Symptoms,Treating, Hip Fracture Surgery: Recovering at Home Additional Instructions: 1. No flexing of the hip greater than 90 degrees 2. Do not cross your legs 3. No twisting One of the first signs you are retaining fluid is your weight will start increasing. Before you ever notice swelling in the legs your weight will have increased about 4 and 1/2 pounds. If this is addressed early then you can p revent admissions to the hospital for congestive heart failure. Buy a good scale. Weigh yourself daily in the AM after urinating with no clothes on and keep a record. If your weight increases by 5 pounds or more in 1 week then you are retaining fluid. Cut back on salt intake and fluids and increase Lasix to 2 times a day until your weight is back to baseline and then resume once a day. If your weight continues to increase call your PCP or director of events for instructions. Call your family doctor if any unusual bleeding such as bleeding from the gums, blood from the anus, blood in the urine, nose bleeds, large bruises or bleeding from the vagina if female. 1. It was a pleasure to meet you Alber. I admire your strength of character........you are definitely a fighter to have come through the last 3 months still walking and on no oxygen. I hope your children and grandchildren appreciate what a great role model you are for strong women. You have done amazingly well in therapy. 2. You are now only on 1 Lasix 40 mg daily and your kidney function has improved and you are not in heart failure. You weight has decreased 10 lbs since admission to the rehab unit. your lungs are clear and there is only a trace of fluid in your ankle........if you continue wearing the FRANCISCO wraps when you are up and about it will also help with the swelling. Sometimes swelling in the legs is NOT a sign of heart failure. Swelling is sometimes due to venous insufficiency/varicose veins. Diuretics only help for venous insufficiency if you are dehydrated.......compression is the best way to control swelling due to venous insufficiency. Swelling from venous insufficiency will go down overnight when you are elevating your legs in bed. Remember to weigh yourself in the morning.....If you can keep your weight stable at home you will have less trips to the hospital for heart failure. 3. Continue taking Vitamin D and calcium to keep your bones strong. Vitamin D is necessary to absorb calcium from the GI tract. your calcium was low when you came to us in rehab. After taking the Vitamin D and calcium for a week your calcium is now normal. Virtually everyone who lives in [place] is vitamin D deficient and needs a supplement because Vitamin D comes from exposure to the sun and we only see the sun on average 70 days a year in [place]. 4. I added Vitamin C to your drug regimen. In order for iron to be absorbed in the GI tract it must have acid in the stomach. Normally we all have acid in the stomach.....to digest food. You are on a drug called Omeprazole which is very effective in reducing the acid in the stomach(at least 90% decrease) so you do not have heartburn or get ulcers. Unfortunately the Omeprazole prevents iron absorption. The absorption tends to be absorbed better if you take if with Vitamin C which is also called ascorbic acid. Take the iron and vitamin C twice a day with meals. We checked your BM for blood while in rehab and it was negative for blood. 5. You no longer need oxygen. The oxygen saturation at rest and with ambulation are within normal limits. 6. I will send a copy of the discharge summary I dictate to Dr. West, Dr. Rogers and Dr. Mason so they need how you did in therapy. 7. TAke Care Alber.....we will be here for you if you ever need our services again. Happy Shahider. If you have questions after you leave the hospital you can call me at [phone] (cell) or [phone] (office) or you can call the nurses station on rehab [phone]. Allergies/Adverse Reactions: Allergies atorvastatin [From Lipitor] Adverse Reaction (Verified 04/29/20 06:10) Pain in joints niacin Adverse Reaction (Verified 04/29/20 06:10) Pain in joints pregabalin [From Lyrica] Adverse Reaction (Verified 04/29/20 06:10) leg pain simvastatin [From Zocor] Adverse Reaction (Verified 04/29/20 06:10) Pain in joints Medications to take at Discharge Nitroglycerin (INPATIENT USE) [Nitrostat] 0.4 mg SUBLINGUAL Q5M PRN 02/24/16 levothyroxine 125 mcg tablet 125 mcg PO DAILY #30 tab 11/14/18 Clopidogrel Bisulfate [Clopidogrel] 75 mg PO DINNER 03/13/20 Omeprazole 20 mg PO DAILY 03/13/20 Loperamide [Imodium] 2 mg PO Q2H PRN PRN cap 04/01/20 amiodarone 200 mg tablet 100 mg PO DAILY #45 tab 04/11/20 Apixaban [Eliquis] 2.5 mg PO BID 05/04/20 Ferrous Sulfate 325 mg PO BIDCM 05/04/20 Furosemide 40 mg PO DAILY #30 tablet 05/04/20 Acetaminophen [Tylenol Tablet] 650 mg PO Q6H PRN PRN tablet 05/13/20 Amlodipine [Norvasc] 2.5 mg PO BID #60 tablet 05/13/20 Ascorbic Acid [Vitamin C] 500 mg PO BID tablet 05/13/20 Calcium (Elemental) [Os-Gato 500] 500 mg PO BIDCM tablet 05/13/20 Cholecalciferol (VIT D3) [Vitamin D3] 1,000 unit PO DAILY #30 tablet 05/13/20 Metoprolol Tartrate [Lopressor (beta marivel)] 25 mg PO BID #60 tablet 05/13/20 Nystatin Powder [Mycostatin Powder] 1 applic TOPICAL BID #1 bottle 05/13/20 Oxycodone [Oxyir] 5 mg PO Q4H PRN PRN 7 Days #42 tablet 05/13/20 Psyllium [Metamucil] 1 packet PO DAILY #30 packet 05/13/20 Senna/Docusate Sodium [Senokot-S] 2 tablet PO BID #120 tablet 05/13/20 The following prescriptions were given: Metoprolol Tartrate [Lopressor (beta marivel)] 25 mg PO BID #60 tablet Transmission Status: Received by [facility] Psyllium [Metamucil] 1 packet PO DAILY #30 packet Transmission Status: Received by [facility] Nystatin Powder [Mycostatin Powder] 1 applic TOPICAL BID #1 bottle Transmission Status: Received by [facility] Amlodipine [Norvasc] 2.5 mg PO BID #60 tablet Transmission Status: Received by [facility] Oxycodone [Oxyir] 5 mg PO Q4H PRN PRN 7 Days #42 tablet PRN Reason: Pain Score 4-10 Transmission Status: Received by [facility] Senna/Docusate Sodium [Senokot-S] 2 tablet PO BID #120 tablet Transmission Status: Received by [facility] Cholecalciferol (VIT D3) [Vitamin D3] 1,000 unit PO DAILY #30 tablet Transmission Status: Received by [facility] Primary Care Physician: Matteo West III, MD [Primary Care Provider] - Test Results: Test results from this visit will be discussed in further detail at your follow- up appointment, if applicable. Please Follow Up With: Matteo West III, MD When: 7-10 days Please Follow Up With: Nam Rogers DO When: within 2 weeks Please Follow Up With: Jose Mason MD When: 1 month Proposed Discharge Date: 05/14/20
--- NOTE | 2020-05-14 09:44 | PCM.DC.SUM ---
Discharge Date and Diagnosis - Problem List Patient Problems: Active and Suspected Problems (Last Reviewed 05/23/20 @ 15:[address] Jose Mason MD) Debility (Acute) Due to recent hip fracture and subsequent ORIF. High thyroid stimulating hormone (TSH) level (Acute) Elevated serum globulin level (Acute) Fracture of femoral neck, left, closed (Acute) Date of Admission: 05/04/20 Date of Discharge: 05/14/20 - Primary Discharge Diagnosis Acute Problems: Active Problems (Last Reviewed 05/05/20 @ 12:[address] Sepideh Rivers DO) Debility (Acute) Due to recent L hip fracture and subsequent ORIF by Dr. Rogers. . High thyroid stimulating hormone (TSH) level (Acute) with a normal T4 Elevated serum globulin level (Acute) with chronic N/N anemia Fracture of femoral neck, left, closed (Acute) Acute kidney injury superimposed on chronic renal failure stage III-resolved - thought to be due to dehydration Hypocalcemia-resolved Borderline high potassium Acute sciatica - resolved with steroids Hyperglycemia due to Medrol - Secondary Discharge Diagnosis Chronic Problems: Chronic Problems (Last Reviewed 05/05/20 @ 12:[address] Sepideh Rivers DO) Left atrial enlargement (Chronic) Tricuspid regurgitation (Chronic) 2+ in April 2020 Anemia (Chronic) - not sure of etiology Anemia of chronic renal failure, stage 3b (Chronic)? I Suspect the anemia is not due to CRF and will defer additional W/U to PCP. [id number] condition (Chronic) With development of chronic respiratory failure with hypoxemia. - resolved with good pulmonary toilet. Not discharged on Oxygen. Chronic anticoagulation (Chronic) On Eliquis for PAF Essential hypertension (Chronic) History of coronary artery stent placement (Chronic 2014) PCI-KHOI-LAD 2014 Chronic combined systolic and diastolic CHF (congestive heart failure) (Chronic) EF in April 2020 estimated at 40 to 45% Nonrheumatic pulmonary valve insufficiency (Chronic) Nonrheumatic aortic valve insufficiency (Chronic) Nonrheumatic mitral (valve) insufficiency (Chronic) 1+ Secondary pulmonary arterial hypertension (Chronic) Paroxysmal atrial fibrillation (Chronic) Takotsubo cardiomyopathy (Chronic) H/O coronary artery bypass surgery (Chronic 01/2016) CABG x 2 VALERIO-LAD, 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/2015 Atherosclerosis of coronary artery of [place] heart without angina pectoris (Chronic) CABG x 2 VALERIO-LAD, 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/2015 History of aortic valve replacement with bioprosthetic valve (Chronic 01/2016) Hospital Course and Treatment Imaging Results: Laboratory Last Values Hgb 9.3 g/dL (12.0-15.0) L 05/08/20 05:45 Hct 31.3 % (37-47) L 05/08/20 05:45 Sodium 138 mmol/L (136-145) 05/08/20 05:45 Potassium 5.1 mmol/L (3.5-5.1) 05/08/20 05:45 Chloride 103 mmol/L (98-107) 05/08/20 05:45 Carbon Dioxide 27.0 mmol/L (21.0-32.0) 05/08/20 05:45 Anion Gap 8 (5-15) 05/08/20 05:45 BUN 35 mg/dL (7-18) H 05/08/20 05:45 Creatinine 1.22 mg/dL (0.55-1.02) H 05/08/20 05:45 Estim Creat Clear Calc 25.10 ml/min 05/08/20 05:45 Est GFR (MDRD) Af Amer 54 mL/min (>60) L 05/08/20 05:45 Est GFR (MDRD) Non-Af 45 mL/min (>60) L 05/08/20 05:45 BUN/Creatinine Ratio 28.7 RATIO (10-20) H 05/08/20 05:45 Glucose 143 mg/dL (74-106) H 05/08/20 05:45 Calcium 9.3 mg/dL (8.5-10.1) 05/08/20 05:45 Microbiology 05/12/20 11:32 Mucosa - Nose SARS-CoV-2 Antigen (Rapid) - Final 05/05/20 17:30 Stool Stool Occult Blood (ALYCE) - Final-negative none Operations: None, - - Cephalomedullary nail fixation of the left hip. Procedures: None Summary of Care Provided: Flori Alvarez is a 85 year old F with a past medical history of central hypertension, hyperlipidemia, coronary artery disease, PAF, chronic anticoagulation with Eliquis, cardiomyopathy with a 40 to 45% ejection fraction, mild left atrial enlargement, history of coronary artery bypass grafting x2 in 2016, history of bioprosthetic aortic valve replacement in 2016, chronic normochromic normocytic anemia of uncertain etiology, chronic combined systolic and diastolic congestive heart failure (in 2019 had stage 3 diastolic dysfunction), secondary pulmonary hypertension, history of PCI/KHOI to the LAD in 2014, moderate tricuspid regurgitation, mild mitral regurgitation, COVID-19 infection in February 2020, hypothyroidism, anxiety/depression, chronic kidney disease stage IIIb, obesity, history of peptic ulcer disease, chronic hypoxemic respiratory failure since having COVID and Left Hip fracture with cephalo-medullary nailing on 05/01/[address] Rogers who was admitted to the in acute rehab unit at [facility] on 05/04/20 for > 3 hours of therapy daily to restore function at or near her prior level of function. Alber did very well in rehab and prior to DC she was ambulating 200 ft with a WW. She was able to ascend and descend 5 steps with 2 rails at stand by assist.She was able to do 10 stands in 30 sec. She required moderate assistance with bathing but was SBA for all other ADL's. Oxygen was able to be discontinued during her admission to rehab and she was not sent home on oxygen. Pulse ox on RA with ambulation remained >90% and she denied SOB. She did have sciatica while in rehab with pain in the buttocks and the groin on the left. This significantly improved with a Medrol dosepak. She was in acute renal failure due to dehydration at admission and this resolved with holding the Lasix for a day and restarting at once a day rather than BID. At DC she was given instructions to weigh herself daily and keep a record. She was also given printed instructions on what to do if her weight went up 5 lbs or more in a weeks time. She will follow up with her PCP in 7-10 days post DC and will also follow up with Dr. Rogers. She will continue to follow with [facility] for cardiology and will keep her next scheduled appt. I suspect the etiology of the anemia is not CRF and would recommend she be worked up for other etiologies with a B12, folate, serum protein electrophoresis, iron, TIBC, transferrin saturation and ferritin. In light of the fracture would also recommend a vitamin D level and DEXA if she has not had 1 in the past 2 years. She was started on a calcium and vitamin D supplement while in the hospital. Oxygen has been discontinued as her pulse ox on room air at rest and with the ambulation is within normal limits. Alert and oriented X 3, NAD, appropriate, cooperative PERRL, EOMI MM are moist and there are no mucosal lesions The neck is supple and the trachea is midline, there are no cervical nodes Lungs are clear to auscultation with decreased breath sounds in the left base. Heart had an irregular rhythm with a HR in the 90's, no gallop Abdomen is soft, NT, ND and there are normal bowel sounds heard in all quadrants. There was no guarding with palpation CN's II - XII are grossly intact [] No peripheral edema, no calf tenderness Skin is warm and dry, no rashes, no breakdown. Mood is good and she is making good eye contact and is appropriate. The incision is intact with no renzo-incisional erythema, no dehiscence and no purulent DC This note was generated with [employer] dictation software. It may contain incorrect words, spelling, and punctuation that were not noted in checking the note before signing. Patient Problems: Active and Suspected Problems (Last Reviewed 05/23/20 @ 15:[address] Jose Mason MD) Debility (Acute) Due to recent hip fracture and subsequent ORIF. High thyroid stimulating hormone (TSH) level (Acute) Elevated serum globulin level (Acute) Fracture of femoral neck, left, closed (Acute) - Physical Exam Vitals/I&O's: Vital Signs Temp Pulse Resp BP Pulse Ox 98.0 F 92 16 143/66 H 92 05/13/20 19:15 05/14/20 08:08 05/13/20 22:00 05/14/20 08:08 05/14/20 08:11 Oxygen Flow Rate (L/min) 2 Oxygen Delivery Method Room Air Weight: 183 lb 6.793 oz Body Mass Index (BMI) 37.8 Intake and Output for Last 24 Hours 05/12/20 05/13/20 05/14/20 23:59 23:59 23:59 Intake Total 1500 / 1500 1380 / 1500 180 / 180 Output Total 1700 / 1700 650 / 650 200 / 200 Balance -200 / -200 730 / 850 -20 / -20 Microbiology Past 72 Hours 05/12/20 11:32 Mucosa - Nose SARS-CoV-2 Antigen (Rapid) - Final Current Medications Acetaminophen (Acetaminophen 325 Mg Tablet) 650 mg PO Q6H PRN PRN PRN Reason: Pain 1-10 or Fever Last Admin: 05/14/20 04:36 Dose: 650 mg Documented by: Amiodarone HCl (Amiodarone 200 Mg Tablet) 100 mg PO DAILY [facility] Last Admin: 05/14/20 08:09 Dose: 100 mg Documented by: Amlodipine Besylate (Amlodipine 2.5 Mg Tablet) 2.5 mg PO BID [facility] Last Admin: 05/14/20 08:08 Dose: 2.5 mg Documented by: Apixaban (Apixaban 2.5 Mg Tablet) 2.5 mg PO BID [facility] Last Admin: 05/14/20 08:09 Dose: 2.5 mg Documented by: Ascorbic Acid (Ascorbic Acid 500 Mg Tablet) 500 mg PO DAILY [facility] Last Admin: 05/14/20 08:08 Dose: 500 mg Documented by: Bisacodyl (Bisacodyl 10 Mg Suppository) 10 mg RC .PRN X 1 PRN PRN Reason: Constipation Calamine/Phenol (Menthol/Lanolin/Calamine/Znox 113 Gm Tube) 1 applic TOPICAL BID@0600,2200 [facility]; Protocol Last Admin: 05/14/20 06:20 Dose: 1 applic Documented by: Calcium Carbonate (Calcium (Elemental) 500 Mg Tablet) [facility] Admin: 05/14/20 08:08 Dose: 500 mg Documented by: Cholecalciferol (Cholecalciferol (Vit D3) 1,000 Unit (25mcg)) 1,000 unit PO DAILY [facility] Last Admin: 05/14/20 08:07 Dose: 1,000 mcg Documented by: Clopidogrel Bisulfate (Clopidogrel Bisulfate 75 Mg Tablet) 75 mg PO DINNER [facility] Last Admin: 05/13/20 16:25 Dose: 75 mg Documented by: Ferrous Sulfate (Ferrous Sulfate 325 Mg Tablet) [facility] Last Admin: 05/14/20 08:08 Dose: 325 mg Documented by: Furosemide (Furosemide 40 Mg Tablet) 40 mg PO DAILY [facility] Last Admin: 05/14/20 08:09 Dose: 40 mg Documented by: Lactobacillus Acidophilus (Lactobacillus Acidophilus) 1 tablet PO BID [facility] Last Admin: 05/14/20 08:09 Dose: 1 tablet Documented by: Levothyroxine Sodium (Levothyroxine 125 Mcg Tablet) 125 mcg PO DAILY@0600 [facility] Last Admin: 05/14/20 06:19 Dose: 125 mcg Documented by: Loperamide HCl (Loperamide 2 Mg Capsule) 2 mg PO Q2H PRN PRN PRN Reason: diarrhea, loose stools Magnesium Hydroxide (Magnesium Hydroxide 30 Ml Udc) 30 ml PO DAILY PRN PRN PRN Reason: Constipation Last Admin: 05/05/20 06:44 Dose: 30 ml Documented by: Melatonin (Melatonin 10 Mg Tablet) 10 mg PO 2199 [facility] Last Admin: 05/13/20 21:45 Dose: 10 mg Documented by: Metoprolol Tartrate (Metoprolol Tartrate 25 Mg Tablet) 25 mg PO BID [facility] Last Admin: 05/14/20 08:08 Dose: 25 mg Documented by: Multi-Ingredient Cream (Mineral Oil/Petrolatum,White Jar) 1 applic TOPICAL QHS [facility]; Protocol Last Admin: 05/13/20 21:47 Dose: 1 applic Documented by: Nitroglycerin (Nitroglycerin (Inpatient Use) 0.4 Mg Tab.Subl) 0.4 mg SL Q5M PRN PRN Reason: CHEST Nystatin (Nystatin Powder 15gm Bottle) 1 applic TOPICAL BID@0600,2199 [facility]; Protocol Last Admin: 05/14/20 06:20 Dose: 1 applic Documented by: Oxycodone HCl (Oxycodone 5 Mg Tablet) 5 mg PO Q4H PRN PRN PRN Reason: Pain Score 1-10 Last Admin: 05/14/20 08:13 Dose: 5 mg Documented by: Pantoprazole Sodium (Pantoprazole Sodium 20 Mg Tablet) 20 mg PO DAILY [facility] Last Admin: 05/14/20 08:08 Dose: 20 mg Documented by: Psyllium Hydrophilic Mucilloid (Psyllium 1 Packet) 1 packet PO DAILY [facility] Last Admin: 05/14/20 08:08 Dose: 1 packet Documented by: Senna/Docusate Sodium (Senna/Docusate Sodium 1 Tablet) 2 tablet PO BID [facility] Last Admin: 05/14/20 08:08 Dose: 2 tablet Documented by: Sodium Chloride (0.9% Saline Lock 10 Ml Syringe) 10 - 40 ml IV UD PRN PRN Reason: SALINE FLUSH Last Admin: 05/07/20 21:38 Dose: 10 ml Documented by: Sodium Chloride (0.9% Saline Lock 10 Ml Syringe) 10 - 40 ml IV UD PRN PRN Reason: SALINE FLUSH Discharge Activity: May Not Drive - until Dr. Rogers tells you it is OK to drive, May not drive while taking narcotic pain medications., May Shower, Use Walker Weight Bearing Status: Full weight bearing Keep extremity elevated above heart level: Left Leg Additional Activity Instructions:: make sure to do the exercises given to you by the therapists 1-2 times a day Call your doctor if your incision/area has: Continuous Slow Oozing, Sudden Increased Bleeding, Increased Pain/ Swelling, Increased Redness, Foul Smelling Discharge Call your doctor if you observe: Fever of 101 or Higher, Coldness, Increased Pain, Numbness or Tingling, Inability to have a bowel movement, Shortness of breath, Dizziness, Fainting spells, Chest pain, Increased palpitations (irregular heartbeat), Calf discomfort, Uncontrolled pain, - - DO NOT use alcohol with narcotic pain medication. DO NOT make important decisions while taking narcotic medication. Do not drive while taking narcotic medication. If you have problems while taking your medication (rash, itching, nausea etc.) call your primary care doctor. Suture Line Care: Avoid Pulling/Pushing, Avoid Pinching/Bending Cleanse incision/area with: Soap & Water Additional Dressing/Incision Instructions:: look the the incision every day for the next 2 weeks and if it is red, swollen, warm to touch or has DC call Dr. Rogers's office Home Medications: Medications to take at Discharge Nitroglycerin (INPATIENT USE) [Nitrostat] 0.4 mg SL Q5M PRN 02/24/16 levothyroxine 125 mcg tablet 125 mcg PO DAILY #30 tablet 11/14/18 Clopidogrel Bisulfate [Clopidogrel] 75 mg PO DINNER 03/13/20 Omeprazole 20 mg PO DAILY 03/13/20 Loperamide [Imodium] 2 mg PO Q2H PRN PRN cap 04/01/20 amiodarone 200 mg tablet 100 mg PO DAILY #45 tablet 04/11/20 Apixaban [Eliquis] 2.5 mg PO BID 05/04/20 Ferrous Sulfate 325 mg PO BIDCM 05/04/20 Furosemide 40 mg PO DAILY #30 tablet 05/04/20 Acetaminophen [Tylenol Tablet] 650 mg PO Q6H PRN PRN tablet 05/13/20 Ascorbic Acid [Vitamin C] 500 mg PO BID tablet 05/13/20 Calcium (Elemental) [Os-Gato 500] 500 mg PO BIDCM tablet 05/13/20 Cholecalciferol (VIT D3) [Vitamin D3] 1,000 unit PO DAILY #30 tablet 05/13/20 Metoprolol Tartrate [Lopressor (beta marivel)] 25 mg PO BID #60 tablet 05/13/20 Nystatin Powder [Mycostatin Powder] 1 applic TOPICAL BID #1 bottle 05/13/20 Psyllium [Metamucil] 1 packet PO DAILY #30 packet 05/13/20 Senna/Docusate Sodium [Senokot-S] 2 tablet PO BID #120 tablet 05/13/20 oxycodone 5 mg tablet tablet PO 05/23/20 Following Prescriptions Were Given to Patient: Metoprolol Tartrate [Lopressor (beta marivel)] 25 mg PO BID #60 tablet Transmission Status: Received by [employer] Psyllium [Metamucil] 1 packet PO DAILY #30 packet Transmission Status: Received by [employer] [facility] Nystatin Powder [Mycostatin Powder] 1 applic TOPICAL BID #1 bottle Transmission Status: Received by [employer] [facility] Senna/Docusate Sodium [Senokot-S] 2 tablet PO BID #120 tablet Transmission Status: Received by [employer] [facility] Cholecalciferol (VIT D3) [Vitamin D3] 1,000 unit PO DAILY #30 tablet Transmission Status: Received by [employer] [facility] Primary Care Physician: Matteo West III, MD [Primary Care Provider] - Please Follow Up With: Matteo West III, MD When: 7-10 days Please Follow Up With: Nam Rogers DO When: within 2 weeks Please Follow Up With: Jose Mason MD When: 1 month Patient Instructions: Hip Fracture Surgery: Recovering at Home, Cellulitis - Causes,Symptoms,Treating Disposition: Home with Home [facility] for PT/OT/SN. No DME needs Minutes spent on discharge:: 40 Patient Condition:: Good Medical Necessity - Tobacco Use Smoking Status: Former smoker Tobacco Use: Non-smoker Meaningful Use Info Meaningful Use Diagnoses (Choose all that apply): None applicable Inpatient E&M: 51166 Disch Hosp
[2020-05-14 09:51] VITALS: BP 143/66; PULSE 92; RESP 16; TEMP 36.7; O2SAT 93
[2020-05-14 12:59] VITALS: BP 143/66; PULSE 92; RESP 16; TEMP 36.7; O2SAT 93
--- NOTE | 2020-05-14 12:59 | NURSING ---
discharged home with family. discharge instructions, medications and appointments reviewed with pt. denies questions or concerns.
== END 2020-05-14 13:03 | disposition home health service (06) | DRG 560 ==
PROVIDERS: Admitting Provider Internal Medicine; PCP Family Medicine; Visit Provider Internal Medicine
DX: S72.002D Fracture of unspecified part of neck of left femur, subsequent encounter for closed fracture with routine healing (principal); I13.0 Hypertensive heart and chronic kidney disease with heart failure and stage 1 through stage 4 chronic kidney disease, or unspecified chronic kidney disease; I50.42 Chronic combined systolic (congestive) and diastolic (congestive) heart failure; J96.11 Chronic respiratory failure with hypoxia; N18.32 Chronic kidney disease, stage 3b; I48.0 Paroxysmal atrial fibrillation; I27.21 Secondary pulmonary arterial hypertension; I25.10 Atherosclerotic heart disease of native coronary artery without angina pectoris; E03.9 Hypothyroidism, unspecified; E66.9 Obesity, unspecified; E78.5 Hyperlipidemia, unspecified; D63.1 Anemia in chronic kidney disease; Z95.1 Presence of aortocoronary bypass graft; Z95.3 Presence of xenogenic heart valve; Z79.01 Long term (current) use of anticoagulants; Z79.899 Other long term (current) drug therapy; Z79.02 Long term (current) use of antithrombotics/antiplatelets; Z86.16 Personal history of COVID-19; Z87.891 Personal history of nicotine dependence
CPT/HCPCS: 80048; 82274; 85014; 85018; 87426; 97110; 97116; 97161; 97166; 97530; 97535; 97802; A4216

== ENCOUNTER → 2020-06-16 12:51 | Outpatient (CLI) | payer MEDICARE, SELFPAY ==
[2020-05-28 13:17] VITALS: BMI 37.8
[2020-06-16 14:28] LABS: Anion Gap 8 (5-15); BUN 34 mg/dL (7-18); BUN/Creat Ratio 20.7 RATIO (10-20); Chloride 108 mmol/L (98-107); Creatinine, Serum 1.64 mg/dL (0.55-1.02); EST Glomerular Filtration Rate 32 mL/min (>60); Est Glom Filt Rate - Afr Amer 38 mL/min (>60); Glucose 111 mg/dL (74-106); Potassium 4.6 mmol/L (3.5-5.1); Sodium Level 142 mmol/L (136-145)
== END ==
PROVIDERS: PCP Family Medicine; Referring Provider Internal Medicine Cardiovascular Disease; Visit Provider Internal Medicine Cardiovascular Disease
DX: I50.42 Chronic combined systolic (congestive) and diastolic (congestive) heart failure (principal)
CPT/HCPCS: 36415; 80048

== ENCOUNTER → 2020-07-18 12:23 | Outpatient (CLI) | payer MEDICARE, SELFPAY ==
[2020-07-18 11:18] VITALS: BMI 38.0
[2020-07-18 14:12] LABS: Anion Gap 9 (5-15); BUN 40 mg/dL (7-18); Calcium,Total 9.2 mg/dL (8.5-10.1); Chloride 104 mmol/L (98-107); Creatinine, Serum 1.54 mg/dL (0.55-1.02); EST Glomerular Filtration Rate 34 mL/min (>60); Est Glom Filt Rate - Afr Amer 41 mL/min (>60); Glucose 113 mg/dL (74-106); Potassium 3.8 mmol/L (3.5-5.1); Sodium Level 142 mmol/L (136-145)
== END ==
PROVIDERS: PCP Physician Assistant; Referring Provider Nurse Practitioner Family; Visit Provider Nurse Practitioner Family
DX: I50.42 Chronic combined systolic (congestive) and diastolic (congestive) heart failure (principal); D63.1 Anemia in chronic kidney disease; I25.10 Atherosclerotic heart disease of native coronary artery without angina pectoris; I25.5 Ischemic cardiomyopathy; I27.21 Secondary pulmonary arterial hypertension; I48.0 Paroxysmal atrial fibrillation; N18.32 Chronic kidney disease, stage 3b; R06.00 Dyspnea, unspecified; Z95.5 Presence of coronary angioplasty implant and graft
CPT/HCPCS: 36415; 80048; 83880

== ENCOUNTER → 2020-08-06 08:42 | Outpatient (CLI) | payer MEDICARE, SELFPAY ==
[2020-08-01 10:56] VITALS: BMI 36.9
[2020-08-06 09:33] LABS: Anion Gap 7 (5-15); BUN 39 mg/dL (7-18); BUN/Creat Ratio 22.2 RATIO (10-20); Calcium,Total 9.5 mg/dL (8.5-10.1); Chloride 104 mmol/L (98-107); Creatinine, Serum 1.76 mg/dL (0.55-1.02); EST Glomerular Filtration Rate 29 mL/min (>60); Est Glom Filt Rate - Afr Amer 35 mL/min (>60); Glucose 106 mg/dL (74-106); Potassium 4.3 mmol/L (3.5-5.1); Sodium Level 141 mmol/L (136-145)
== END ==
PROVIDERS: PCP Physician Assistant; Referring Provider Nurse Practitioner Family; Visit Provider Nurse Practitioner Family
DX: Z79.899 Other long term (current) drug therapy (principal)
CPT/HCPCS: 36415; 80048

== ENCOUNTER 2021-02-16 12:19 | Outpatient (CLI) | payer MEDICARE, SELFPAY ==
--- NOTE | 2021-02-16 12:38 | MRI_ITS ---
STUDY: MRI LUMBAR SPINE WITHOUT CONTRAST REASON FOR EXAM: Female, 86 years old. LOW BACK PAIN TECHNIQUE: Standardized fat and water weighted pulse sequences were obtained in the sagittal and axial planes. COMPARISON: None FINDINGS: T12-L1: Normal endplates. Normal disc height, hydration and morphology. Normal bilateral facet joints. Normal central canal and bilateral lateral recesses. Normal bilateral intervertebral neural foramina. Normal lumbar lordosis. Mild levoscoliosis centered at L3. Normal conus medullaris that terminates at the L1. L1-2: Moderate broad disc protrusion reduces moderate spinal stenosis with moderate lateral recess stenosis with abutment of the L2 nerve roots bilaterally and mild bilateral neural foraminal stenosis. L2-3: Mild bilateral facet hypertrophy and ligament flavum hypertrophy. Moderate broad disc protrusion produces moderate spinal stenosis with moderate bilateral lateral recess stenosis with abutment of the L3 nerve roots bilaterally and moderate bilateral neural foraminal stenosis. L3-4: Mild facet hypertrophy and ligament flavum hypertrophy. Moderate broad disc protrusion produces moderate canal stenosis with moderate bilateral recess stenosis with abutment of the L4 nerve roots bilaterally, moderate right neural foraminal stenosis and mild left neural foraminal stenosis. L4-5: Mild bilateral facet hypertrophy and ligament flavum hypertrophy. Severe loss of disc height with mild spinal stenosis and mild bilateral neural foraminal stenosis. L5-S1: Bilateral pars defects of the L5 vertebra consistent with L5 spondylolysis. 5 mm of anterolisthesis of L5 on S1 consistent with grade 1 spondylolisthesis. Mild broad disc protrusion recent mild spinal stenosis but moderate bilateral neural foraminal stenosis. Normal visualized sacral ala. Normal visualized paraspinous soft tissue structures. MRI/Spine Lumbar (Routine) IMPRESSION: 1. L5 spondylolysis with grade 1 spinal listhesis of L5 on S1. 2. Mild levoscoliosis and degenerative disc disease as described above. Electronically Signed: Mitchell Walsh MD at 15:58 EST Tel , Service support ,
--- NOTE | 2021-02-16 12:38 | MRI_ITS ---
STUDY: MRI LEFT HIP REASON FOR EXAM: Female, 86 years old. OSTEOARTHRITIS LEFT HIP -- METAL REDUCTION SEQUENCE TECHNIQUE: Standardized fat and water weighted pulse sequences were obtained in all 3 orthogonal planes. COMPARISON: X-ray 07/28/2020 FINDINGS: There is mild articular narrowing of the hip joint, with less than 50% loss of the hyaline cartilage. Normal acetabulum. Normal labrum. Normal femoral head. The patient is status post open reduction internal fixation of fracture of the basal cervical femoral neck with a femoral neck compression screw and a short intramedullary mahsa. Within the femoral neck and superolateral to the femoral neck compression screw is a prominent linear hypointensity worrisome for incomplete healing of the fracture. Correlation with CT would be useful. Normal gluteus minimus, medius and iliopsoas tendons and distal insertions. There is no trochanteric, iliopsoas or iliopectineal bursitis. Normal superior and inferior pubic rami. Normal pubic symphysis. Normal ischial tuberosity. Normal origin of the hamstring tendons. Normal visualized iliac wing, sacroiliac joint, and sacral ala. Normal visualized soft tissue structures of the pelvis. MRI/Lower Ext Joint Only (Routine) IMPRESSION: 1. Possible persistent fracture line in the femoral neck despite open reduction internal fixation. Correlation with CT is recommended. 2. Mild hip arthrosis. Electronically Signed: Mitchell Walsh MD at 15:29 EST Tel , Service support ,
== END 2021-02-16 23:59 | disposition short-term general hospital (02) ==
LOC: MRI 12:19
PROVIDERS: PCP Physician Assistant; Visit Provider Orthopaedic Surgery
DX: M16.12 Unilateral primary osteoarthritis, left hip (principal); M54.50 Low back pain, unspecified; M25.552 Pain in left hip
CPT/HCPCS: 72148; 73721

== ENCOUNTER 2021-03-27 09:10 | Outpatient (CLI) | payer MEDICARE, SELFPAY ==
--- NOTE | 2021-03-27 09:17 | RAD_ITS ---
PROCEDURE: Fluoroscopic guided left hip aspiration. DATE: 03/27/2021. INDICATION: Female, 86 years old. Possible infected left hip joint. PHYSICIAN: Manish Zapata M.D. ACCESS SITE: Left hip. NEEDLE: 22-gauge spinal needle. FLUOROSCOPY TIME (if supplied): (0:50) minutes/seconds. One image was obtained. FINDINGS: The risks, benefits, and alternatives to the procedure were explained to the patient. The specific risks of bleeding, infection, and neurovascular injury were detailed and accepted. Witnessed informed consent was obtained. A 22-gauge spinal needle was positioned under radiographic fluoroscopic localization. Approximately 2 cc of [id number] was instilled for localization purposes. Aspiration was performed. No fluid was aspirated. The patient tolerated the procedure well without any immediate complications. RAD/Inj/Asp Ronnie Jt Should/Hip/Knee IMPRESSION: No fluid was aspirated. Electronically Signed: Manish Zapata MD at 14:16 EST ,
[2021-03-27] MEDS: Lidocaine 2% (5ml sdv) 5 ML VIAL.MPF INFILT (09:45)
== END 2021-03-27 23:59 | disposition home or self-care (01) ==
LOC: RAD 09:11
PROVIDERS: PCP Physician Assistant; Referring Provider Specialist; Visit Provider Specialist
DX: S72.142K Displaced intertrochanteric fracture of left femur, subsequent encounter for closed fracture with nonunion (principal)
CPT/HCPCS: 20610; 77002

== ENCOUNTER 2021-04-06 11:42 | Outpatient (CLI) | payer MEDICARE, SELFPAY ==
[2021-04-06 13:15] LABS: Anion Gap 6 (5-15); BUN 86 mg/dL (7-18); BUN/Creat Ratio 42.2 RATIO (10-20); Calcium,Total 9.5 mg/dL (8.5-10.1); Chloride 110 mmol/L (98-107); Creatinine, Serum 2.04 mg/dL (0.55-1.02); EST Glomerular Filtration Rate 25 mL/min (>60); Est Glom Filt Rate - Afr Amer 30 mL/min (>60); Glucose 120 mg/dL (74-106); Potassium 5.5 mmol/L (3.5-5.1); Sodium Level 141 mmol/L (136-145)
== END 2021-04-06 23:59 | disposition home or self-care (01) ==
LOC: LAB 11:44
PROVIDERS: PCP Physician Assistant; Referring Provider Physician Assistant Medical; Visit Provider Physician Assistant Medical
DX: R06.00 Dyspnea, unspecified (principal); N17.9 Acute kidney failure, unspecified; I25.10 Atherosclerotic heart disease of native coronary artery without angina pectoris; I25.2 Old myocardial infarction; Z79.899 Other long term (current) drug therapy
CPT/HCPCS: 36415; 80048

== ENCOUNTER 2021-04-13 10:34 | Outpatient (CLI) | payer MEDICARE, SELFPAY ==
[2021-04-13 11:57] LABS: Anion Gap 5 (5-15); BUN 61 mg/dL (7-18); BUN/Creat Ratio 33.5 RATIO (10-20); Calcium,Total 9.9 mg/dL (8.5-10.1); Chloride 105 mmol/L (98-107); Creatinine, Serum 1.82 mg/dL (0.55-1.02); EST Glomerular Filtration Rate 28 mL/min (>60); Est Glom Filt Rate - Afr Amer 34 mL/min (>60); Glucose 120 mg/dL (74-106); Potassium 4.9 mmol/L (3.5-5.1); Sodium Level 141 mmol/L (136-145)
== END 2021-04-13 23:59 | disposition home or self-care (01) ==
LOC: LAB 10:36
PROVIDERS: PCP Physician Assistant; Referring Provider Physician Assistant Medical; Visit Provider Physician Assistant Medical
DX: N18.9 Chronic kidney disease, unspecified (principal); N17.9 Acute kidney failure, unspecified
CPT/HCPCS: 36415; 80048

== ENCOUNTER 2021-04-17 08:45 | Outpatient (CLI) | payer MEDICARE, SELFPAY ==
[2021-04-17 10:03] LABS: Anion Gap 2 (5-15); BUN 47 mg/dL (7-18); BUN/Creat Ratio 31.5 RATIO (10-20); Calcium,Total 9.7 mg/dL (8.5-10.1); Chloride 108 mmol/L (98-107); Creatinine, Serum 1.49 mg/dL (0.55-1.02); EST Glomerular Filtration Rate 35 mL/min (>60); Est Glom Filt Rate - Afr Amer 43 mL/min (>60); Glucose 101 mg/dL (74-106); Potassium 4.8 mmol/L (3.5-5.1); Sodium Level 140 mmol/L (136-145)
== END 2021-04-17 23:59 | disposition home or self-care (01) ==
LOC: LAB 08:45
PROVIDERS: PCP Physician Assistant; Visit Provider Physician Assistant Medical
DX: N17.9 Acute kidney failure, unspecified (principal); N18.9 Chronic kidney disease, unspecified
CPT/HCPCS: 36415; 80048

== ENCOUNTER 2021-05-19 10:18 | Outpatient (CLI) | payer MEDICARE, SELFPAY ==
--- NOTE | 2021-05-19 10:22 | VDLE_ITS ---
Reason For Study: Pain RIGHT LEFT GSV is normal. GSV is normal. CFV is compressible, spontaneous, competent CFV is compressible, spontaneous, competent, and demonstrates pulsatile venous flow. and demonstrates pulsatile venous flow. FV is compressible, spontaneous, competent FV is compressible, spontaneous, competent and demonstrates pulsatile venous flow. and demonstrates pulsatile venous flow. POP V is compressible, spontaneous, competent POP V is compressible, spontaneous, competent and demonstrates pulsatile venous flow. and demonstrates pulsatile venous flow. T/P Trunk is compressible. T/P Trunk is compressible. PTV is compressible. PTV is compressible. RT PerV is compressible. LT PerV is compressible. Procedure This is a venous duplex using B-mode, color flow and spectral Doppler. Exam performed in department. A preliminary report was called and/or faxed to [facility]. VL/Venous Duplex US - Olvin Extrem Interpretation Summary No evidence for acute deep venous thrombosis bilateral lower extremities Patent and compressible right great saphenous vein Surgically harvested left great saphenous vein Pulsatile venous flow bilaterally consistent with proximal venous hypertension or obstruction. Clinical correlation would be appropriate. Ordering Physician: French Nettles Referring Physician: Rustam Sen Performed By: Yohana Holm RVT
== END 2021-05-19 23:59 | disposition home or self-care (01) ==
LOC: CVS 10:20
PROVIDERS: PCP Physician Assistant; Referring Provider Specialist; Visit Provider Specialist
DX: M79.662 Pain in left lower leg (principal); M79.661 Pain in right lower leg
CPT/HCPCS: 93970

== ENCOUNTER → 2021-06-22 | Outpatient (CLI) | payer MEDICARE, SELFPAY ==
--- NOTE | 2021-06-22 10:46 | ECHOD_ITS ---
Version 2 Reason For Study: CHF Procedure This was a 2D Doppler, Color Flow transthoracic echocardiogram. Exam performed in department. Left Ventricle Normal LV size. Mild concentric left ventricular hypertrophy. The estimated ejection fraction is 40 %. Mild to moderate segmental systolic dysfunction (see wall motion). There are regional wall motion abnormalities as specified. Right Ventricle Normal RV size. Normal systolic function. Atria The left atrium is moderately enlarged. Normal right atrium. Mitral Valve There is moderate to severe mitral annular calcification. Mild (1+) eccentric mitral valve insufficiency. Tricuspid Valve Normal tricuspid valve. Mild to moderate (1-2+) tricuspid valve insufficiency. Pulmonary artery systolic pressure is 42 mmHg. Aortic Valve Bioprosthetic aortic valve. Pulmonic Valve Normal pulmonic valve. Great Vessels Normal aortic root. The pulmonary artery is normal size. Normal inferior vena cava. Pericardium/Pleural No pericardial effusion. MMode/2D Measurements & Calculations LVIDd: 4.2 cm IVSd: 1.4 cm LVOT diam: 2.0 cm LVIDs: 3.4 cm LVPWd: 1.2 cm LVOT area: 3.3 cm2 RVDd: 4.6 cm FS: 21.0 % LA dimension: 5.1 cm LAV(MOD-bp): 81.8 ml LA A4 area: 27.2 cm2 LAV(MOD-bp) Indexed: 47.0 ml/m2 LAV(MOD-sp2): 70.9 ml LAV(MOD-sp4): 89.7 ml RA A4 area: 19.2 cm2 Doppler Measurements & Calculations MV E max tavo: 157.5 cm/sec Ao V2 max: 118.3 cm/sec LV V1 max: 70.6 cm/sec Ao max P.6 mmHg LV V1 max P.0 mmHg CATHERINE(V,D): 2.0 cm2 MR max tavo: 543.5 cm/sec PA V2 max: 86.0 cm/sec TR max tavo: 299.1 cm/sec MR max P.2 mmHg TR max P.8 mmHg MR mean tavo: 400.8 cm/sec MR mean P.0 mmHg MR VTI: 174.0 cm ECHO/Echo Complete Interpretation Summary Normal LV size. Mild concentric left ventricular hypertrophy. The left atrium is moderately enlarged. Pulmonary artery systolic pressure is 42 mmHg. The estimated ejection fraction is 40 %. There are regional wall motion abnormalities as specified. Mild to moderate segmental systolic dysfunction (see wall motion). Bioprosthetic aortic valve. Ordering Physician: Jose Mason Referring Physician: Rhys Sen Performed By: Marcial Cui RCS
== END | disposition home or self-care (01) ==
LOC: CVS 10:44
PROVIDERS: PCP Physician Assistant; Referring Provider Internal Medicine Cardiovascular Disease; Visit Provider Internal Medicine Cardiovascular Disease
DX: Z95.3 Presence of xenogenic heart valve (principal)
CPT/HCPCS: 93306

== ENCOUNTER 2021-08-18 14:58 | Inpatient (IN) | payer MEDICARE, SELFPAY ==
[2021-08-18] VITALS (9 sets, daily range): BP systolic 107–122; BP diastolic 50–83; PULSE 85–107; RESP 15–17; TEMP 36.8–37.3; O2SAT 92–99; BMI 33.5; BMI 35.4
[2021-08-18 15:54] LABS: Absolute Lymphocyte Count 0.94 X10^3/uL (0.83-4.51); Absolute Neutrophil Count 6.2 X10^3/uL (2.0-7.7); Basophil# 0.08 X10^3/uL; Basophil% 0.9 % (0-1); Eosinophil# 0.11 X10^3/uL; Eosinophils% 1.3 % (0-5); Hematocrit 34.5 % (37-47); Hemoglobin 10.5 g/dL (12.0-15.0); Lymphocyte # 0.94 X10^3/ul (0.83-4.51); Lymphocyte % 10.9 % (19-41); Mean Corp Hgb Conc 30.4 g/dL (32-36); Mean Corpuscular Hgb 29.3 pg (27.0-32.0); Mean Corpuscular Volume 96.4 fL (81-99); Mean Platelet Vol. 11.2 fl (6.2-12.0); Monocyte# 1.21 X10^3/uL; Monocyte% 14.1 % (0-10); NRBC Flagged by Analyzer 0 % (0-5); Neutrophil # 6.24 X10^3/uL (2.7-7.7); Neutrophil % 72.5 % (47-70); Platelet Count 202 K/mm3 (150-450); RBC Distribution Width CV 17.7 % (11.6-14.6); RBC Distribution Width SD 62.5 fl (35.1-43.9); Red Blood Count 3.58 M/mm3 (4.2-5.4); White Blood Count 8.6 K/mm3 (4.4-11.0)
[2021-08-18 16:10] LABS: ALB/GLOB Ratio 0.8 RATIO (0.9-2.4); AST(SGOT) 21 U/L (15-37); Alanine Aminotransfer ALT/SGPT 11 U/L (13-56); Albumin, Serum 3.1 g/dL (3.2-5.0); Alkaline Phosphatase 187 U/L (45-117); Anion Gap 8 (5-15); BUN 42 mg/dL (7-18); BUN/Creat Ratio 24.1 RATIO (10-20); Calcium,Total 9.1 mg/dL (8.5-10.1); Chloride 104 mmol/L (98-107); Creatinine, Serum 1.74 mg/dL (0.55-1.02); EST Glomerular Filtration Rate 30 mL/min (>60); Est Glom Filt Rate - Afr Amer 36 mL/min (>60); Estimated Creatinine Clearance 17.29 ml/min; Globulin 4.1 g/dL (2.2-4.2); Glucose 170 mg/dL (74-106); Potassium 3.9 mmol/L (3.5-5.1); Protein, Total 7.2 g/dL (6.4-8.2); Sodium Level 141 mmol/L (136-145)
[2021-08-18 16:41] LABS: Lactic Acid 2.6 mmol/L (0.4-1.9)
--- NOTE | 2021-08-18 16:56 | EDS_ITS ---
HPI History of Present Illness Chief Complaint: Wound Detail of Chief Complaint: Infected wound status post total hip arthroplasty April 2021 Informant: patient, family and other (Sent from Dr. Nettles's office) Onset/Context/Timing Onset: Weeks Context: Gradual Onset Quality: Redness LAKISHA incision site and wound Location: Left hip Current Severity: Mild Maximum Severity: Mild Worsened by: Pressure sore that has become infected Relieved by: Nothing Associated Symptoms Associated Symptoms: Pain, drainage, subjective fever Narrative Narrative: Patient is an 86-year-old woman who was seen by Dr. French Nettles's practitioner. Cultures were obtained of the pressure sore. Patient has a pressure sore the size of a dime. There is area of deep erythema that is 3.5 x 5 cm. There is erythema that extends beyond that is light in color and measures 5 x 8 cm. The area is indurated. The area is warm. There is no lymphangitis. There is no inguinal lymphadenopathy. She has history of coronary disease, congestive heart failure, arterial pulmonary hypertension, chronic renal failure, stage IIIb. She denies paresthesia, anesthesia or motor weakness. She denies GI or symptoms. Prior similar symptoms: No Recent Illness/Hospitalization: No PFSH PFSH Medical History Acquired hypothyroidism Acute kidney injury Acute kidney injury superimposed on CKD Anemia Anxiety and depression Atherosclerosis of coronary artery of [place] heart without angina pectoris Chronic combined systolic and diastolic CHF (congestive heart failure) Chronic kidney disease, stage 3 COVID-19 virus detected (02/29/20) Elevated serum globulin level Esophagitis Essential hypertension Fracture of femoral neck, left, closed HFrEF (heart failure with reduced ejection fraction) History of non-ST elevation myocardial infarction (NSTEMI) (04/2020) Insomnia Ischemic cardiomyopathy Left atrial enlargement Nonrheumatic aortic (valve) stenosis Obesity (BMI 30-39.9) Orthopedic aftercare Paroxysmal atrial fibrillation PUD (peptic ulcer disease) Sciatica Secondary pulmonary arterial hypertension Takotsubo cardiomyopathy Home Medications nitroglycerin 0.4 mg sublingual tablet 0.4 mg sublingual Q5M PRN Chest Pain 02/24/16 [History Last Taken 06/30/17] levothyroxine 125 mcg tablet 125 mcg PO DAILY thyroid #30 tabs 11/14/18 [History Last Taken 2 Days Ago ~03/23/20] acetaminophen 325 mg tablet 650 mg PO Q6H PRN PRN Pain 1-10 Or Fever 05/13/20 [Rx Last Taken Unknown] ascorbic acid (vitamin C) 500 mg tablet 500 mg PO BID 05/13/20 [Rx Last Taken Unknown] calcium carbonate 500 mg calcium (1,250 mg) tablet 500 mg PO BIDCM 05/13/20 [Rx Last Taken Unknown] cholecalciferol (vitamin D3) 25 mcg (1,000 unit) tablet 1,000 unit PO DAILY #30 tabs 05/13/20 [Rx Last Taken Unknown] psyllium husk (aspartame) 3.4 gram oral powder packet 1 packet PO DAILY #30 packets 05/13/20 [Rx Last Taken Unknown] sennosides 8.6 mg-docusate sodium 50 mg tablet 2 tablet PO BID #120 tabs 0 05/13/20 [Rx Last Taken Unknown] omeprazole 20 mg capsule,delayed release 20 mg PO DIRECTED 07/28/20 [History Last Taken Unknown] clopidogrel 75 mg tablet 75 mg PO DAILY blood thinner #90 tabs 08/04/20 [Rx Last Taken Unknown] apixaban 5 mg tablet 2.5 mg PO BID 08/21/20 [History Last Taken Unknown] geriatric [id number] 1 tab PO DAILY 08/21/20 [History Last Taken Unknown] oxycodone 5 mg tablet 5 mg PO Q4H PRN Pain 08/21/20 [History Last Taken Unknown] metoprolol tartrate 25 mg tablet 12.5 mg PO BID #180 tabs 03/12/21 [Rx Last Taken Unknown] gabapentin 300 mg capsule 300 mg PO TID 05/25/21 [History Last Taken Unknown] ferrous sulfate 325 mg (65 mg iron) tablet 325 mg PO BID 05/26/21 [History Last Taken Unknown] furosemide 40 mg tablet See Rx Instructions PO .COMPLEX water pill #30 tabs 07/21/21 [Rx Last Taken Unknown] metolazone 2.5 mg tablet 2.5 mg PO 2XW weight gain 08/18/21 [History Last Taken Unknown] spironolactone 25 mg tablet 1 tab PO DAILY 08/18/21 [History Last Taken Unknown] Allergy/AdvReac Type Severity Reaction Status Date / Time atorvastatin [From Lipitor] AdvReac Pain in Verified 08/18/21 15:02 joints niacin AdvReac Pain in Verified 08/18/21 15:02 joints pregabalin [From Lyrica] AdvReac leg pain Verified 08/18/21 15:02 simvastatin [From Zocor] AdvReac Pain in Verified 08/18/21 15:02 joints Family History Mother Diabetes Heart disease Other CAD (coronary artery disease) Surgical History H/O coronary artery bypass surgery (01/2016) History of aortic valve replacement with bioprosthetic valve (01/2016) History of arthroplasty of left hip (04/21/21) History of cardioversion (12/24/19) History of coronary artery stent placement (2014) Social History (Updated 08/18/21 @ 17:[address] Duane Thornton MD) household members: family Smoking Status: Never smoker alcohol intake: never substance use type: does not use caffeine: No ROS ROS ED Constitutional Constitutional ED: Reports fever(s) and subjective; Denies chills, sweats or weight loss Eyes Eyes: Denies blurry vision, change in vision or diplopia ENT ENT ED: Denies ear pain, rhinorrhea or sore throat Cardiovascular Cardiovascular: Denies chest pain, orthopnea, palpitations, paroxysmal nocturnal dyspnea or racing heartbeat Respiratory/Chest Respiratory/Chest: Denies cough, dyspnea, dyspnea on exertion, orthopnea or paroxysmal nocturnal dyspnea Gastrointestinal Gastrointestinal: Denies abdominal pain, constipation, diarrhea, melena or vomiting Genitourinary Genitourinary ED: Denies dysuria, hematuria or urinary frequency Musculoskeletal Musculoskeletal: Reports other Details: Pain left hip region ; Denies arthralgias, back pain, myalgias or neck pain Integumentary Reports rash and other Details: Pressure sore with necrotic tissue. Serous fluid was expressed from the pressure sore. There was no purulent material Neurologic Neurologic: Reports weakness; Denies headache(s) or paresthesias Endocrine Endocrinology: Denies cold intolerance or heat intolerance Allergic/Immunologic Allergic/Immunologic ED: Denies mouth swelling, tongue swelling or urticaria EXAM Physical Exam Const Vital Signs: 08/18/21 14:59 08/18/21 15:02 08/18/21 17:02 Temperature 99.2 F H 99.2 F H 99.1 F Temperature Source Temporal Temporal Temporal Pulse Rate 107 H 107 H 101 H Respiratory Rate 16 16 17 Blood Pressure 122/67 H 122/67 H 107/53 L Blood Pressure Mean 85 71 Pulse Ox 92 92 98 Oxygen Delivery Method Room Air Room Air Room Air 08/18/21 16:59 Temperature Temperature Source Pulse Rate Respiratory Rate 15 Blood Pressure Blood Pressure Mean Pulse Ox Oxygen Delivery Method Positive well nourished, well developed and obese; Negative for cachectic, contractures or unkempt General Appearance ED: well developed and NAD; Negative for unkempt, cachectic, contractures, cyanotic, diaphoretic or pallor Nutritional Appearance: obese; Negative for cachectic HEENT Reports moist mucous membranes HEENT Narrative: Ears no blood. Nares patent. Mucosa moist. Uvula midline. No erythema or exudate. Negative for trauma or tenderness Eyes PERRL and EOMs intact bilaterally General Eye ED: Negative for pale conjunctiva or scleral icterus Neck no lymphadenopathy, supple and no JVD Chest Wall inspection of chest normal and palpation of chest normal Resp normal respiratory effort and clear to auscultation bilaterally Cardio regular rhythm, S1 normal heart sound, S2 normal heart sound and no murmurs Rate: tachycardic GI normal to inspection, nondistended, normoactive bowel sounds, non-tender, non- distended and hepatosplenomegaly Back/Spine no CVA tenderness Cervical Spine: Negative for cervical spine tenderness Thoracic Spine / Upper Back: Negative for thoracic spinal tenderness Lumbar Spine / Lower Back: Negative for lumbar spinal tenderness Neuro oriented x3, CN's II-XII intact bilaterally and no sensory deficits noted Sensorium / Orientation: alert Psych mental status grossly normal Appearance: Negative for unkempt Skin No no rashes or lesions noted and No no wounds Skin Narrative: There is a pressure sore the size of a dime in the middle portion of the incision site. There is surrounding cellulitis. The size was previously described. General Skin Exam: Negative for jaundice or pallor MDM MDM MDM Narrative Medical decision making narrative: Patient has cellulitis. Will obtain appropriate screening labs determine the patient is a candidate for inpatient or outpatient therapy. Cultures were not obtained since there is no purulent material that was expressed and swabbing the pressure sore is of no value. Patient was treated with antibiotics after blood cultures. Will contact hospitalist for admission. We will also contact Dr. Castro since she is a postop patient from April. Lab Data Attestation: I reviewed the patient's lab results. Lab results narrative: White count is normal. There is slight shift with no bandemia. Comprehensive metabolic panel reveals slight elevation in creatinine from baseline. GFR is 36. Lactate elevated 2.6. She is not on metformin or medicines that would cause an elevated lactate. Labs: Laboratory Results - last 24 hr 08/18/21 08/18/21 08/18/21 15:45 15:45 15:45 WBC 8.6 RBC 3.58 L Hgb 10.5 L Hct 34.5 L MCV 96.4 MCH 29.3 MCHC 30.4 L RDW Std Deviation 62.5 H RDW Coeff of [place]atha 17.7 H Plt Count 202 MPV 11.2 Immature Gran % (Auto) 0.300 Neut % (Auto) 72.5 H Lymph % (Auto) 10.9 L [place] % (Auto) 14.1 H Eos % (Auto) 1.3 Baso % (Auto) 0.9 Absolute Neuts (auto) 6.2 Absolute Lymphs (auto) 0.94 Nucleated RBC % 0 Sodium 141 Potassium 3.9 Chloride 104 Carbon Dioxide 29.0 Anion Gap 8 BUN 42 H Creatinine 1.74 H Estim Creat Clear Calc 17.29 Est GFR (MDRD) Af Amer 36 L Est GFR (MDRD) Non-Af 30 L BUN/Creatinine Ratio 24.1 H Glucose 170 H Lactic Acid 2.6 H* Calcium 9.1 Total Bilirubin 1.30 H AST 21 ALT 11 L Alkaline Phosphatase 187 H Total Protein 7.2 Albumin 3.1 L Globulin 4.1 Albumin/Globulin Ratio 0.8 L Discharge Plan Dx/Rx/DC Orders Clinical Impression: Cellulitis of hip, left, Acidosis, lactic, Sinus tachycardia, Chronic renal failure, stage 3b Disposition Disposition: Acute Care Hospital [facility]
--- NOTE | 2021-08-18 17:39 | HP.PCM.HOS_ITS ---
HPI - General General Date of Admission: 08/18/21 Date of Service: 08/18/21 Chief Complaint: Left hip wound and seepage HPI Narrative GALILEO HUSTON, is a 86 F who presents with the above. Patient had a left hip arthroplasty in [address] Nettles. Patient lives at home with her . She had gone to follow-up with Dr. Nettles's office and seen his PA with concerns of increased seepage from the left hip as well as pain and swelling. Patient was sent to the hospital for x-rays and blood work. She was asked to go to the emergency room. She denies any fever or chills. She stated that she has not been moving much. Vitals in the ED showed blood pressure 122/67, heart rate 107, respiratory 16, temperature 99.2 F, SPO2 was 97% on room air. WBC count is 8.6, Hb is 10.5, platelet count 202, CMP showed BUN of 42, creatinine 1.74, which is about her baseline. Lactic acid was 2.6 PFSH Medical History Acquired hypothyroidism Acute kidney injury Acute kidney injury superimposed on CKD Anemia Anxiety and depression Atherosclerosis of coronary artery of [place] heart without angina pectoris Chronic combined systolic and diastolic CHF (congestive heart failure) Chronic kidney disease, stage 3 COVID-19 virus detected (02/29/20) Elevated serum globulin level Esophagitis Essential hypertension Fracture of femoral neck, left, closed HFrEF (heart failure with reduced ejection fraction) History of non-ST elevation myocardial infarction (NSTEMI) (04/2020) Insomnia Ischemic cardiomyopathy Left atrial enlargement Nonrheumatic aortic (valve) stenosis Obesity (BMI 30-39.9) Orthopedic aftercare Paroxysmal atrial fibrillation PUD (peptic ulcer disease) Sciatica Secondary pulmonary arterial hypertension Takotsubo cardiomyopathy Home Medications nitroglycerin 0.4 mg sublingual tablet 0.4 mg sublingual Q5M PRN Chest Pain 02/24/16 [History Last Taken 06/30/17] levothyroxine 125 mcg tablet 125 mcg PO DAILY thyroid #30 tabs 11/14/18 [History Last Taken 2 Days Ago ~03/23/20] acetaminophen 325 mg tablet 650 mg PO Q6H PRN PRN Pain 1-10 Or Fever 05/13/20 [Rx Last Taken Unknown] ascorbic acid (vitamin C) 500 mg tablet 500 mg PO BID 05/13/20 [Rx Last Taken Unknown] calcium carbonate 500 mg calcium (1,250 mg) tablet 500 mg PO BIDCM 05/13/20 [Rx Last Taken Unknown] cholecalciferol (vitamin D3) 25 mcg (1,000 unit) tablet 1,000 unit PO DAILY #30 tabs 05/13/20 [Rx Last Taken Unknown] psyllium husk (aspartame) 3.4 gram oral powder packet 1 packet PO DAILY #30 packets 05/13/20 [Rx Last Taken Unknown] sennosides 8.6 mg-docusate sodium 50 mg tablet 2 tablet PO BID #120 tabs 0 05/13/20 [Rx Last Taken Unknown] omeprazole 20 mg capsule,delayed release 20 mg PO DIRECTED 07/28/20 [History Last Taken Unknown] clopidogrel 75 mg tablet 75 mg PO DAILY blood thinner #90 tabs 08/04/20 [Rx Last Taken Unknown] apixaban 5 mg tablet 2.5 mg PO BID 08/21/20 [History Last Taken Unknown] geriatric [id number] 1 tab PO DAILY 08/21/20 [History Last Taken Unknown] oxycodone 5 mg tablet 5 mg PO Q4H PRN Pain 08/21/20 [History Last Taken Unknown] metoprolol tartrate 25 mg tablet 12.5 mg PO BID #180 tabs 03/12/21 [Rx Last Taken Unknown] gabapentin 300 mg capsule 300 mg PO TID 05/25/21 [History Last Taken Unknown] ferrous sulfate 325 mg (65 mg iron) tablet 325 mg PO BID 05/26/21 [History Last Taken Unknown] furosemide 40 mg tablet See Rx Instructions PO .COMPLEX water pill #30 tabs 07/21/21 [Rx Last Taken Unknown] metolazone 2.5 mg tablet 2.5 mg PO 2XW weight gain 08/18/21 [History Last Taken Unknown] spironolactone 25 mg tablet 1 tab PO DAILY 08/18/21 [History Last Taken Unknown] Allergy/AdvReac Type Severity Reaction Status Date / Time atorvastatin [From Lipitor] AdvReac Pain in Verified 08/18/21 15:02 joints niacin AdvReac Pain in Verified 08/18/21 15:02 joints pregabalin [From Lyrica] AdvReac leg pain Verified 08/18/21 15:02 simvastatin [From Zocor] AdvReac Pain in Verified 08/18/21 15:02 joints Family History Mother Diabetes Heart disease Other CAD (coronary artery disease) Surgical History H/O coronary artery bypass surgery (01/2016) History of aortic valve replacement with bioprosthetic valve (01/2016) History of arthroplasty of left hip (04/21/21) History of cardioversion (12/24/19) History of coronary artery stent placement (2014) Social History household members: family Smoking Status: Never smoker alcohol intake: never substance use type: does not use caffeine: No ROS ROS Narrative Constitutional: Denies: Anorexia, Chills, Fever, Night Sweats, Weight Change Eyes: Denies: Blurred vision, Cataracts, Conjunctivae Inflammation, Pain, Redness, Vision Change HEENT: Denies: Difficulty Hearing, Difficulty Swallowing, Head Aches, Hearing Changes, Sinus Congestion, Sinus Drainage Cardiovascular: Denies: Chest Pain, Orthopnea, Palpitations Respiratory: Denies: Cough, Shortness of breath at rest, Sputum production Gastrointestinal: Denies: Abdominal Pain, Nausea, Vomiting Genitourinary: Denies: Dysuria Musculoskeletal: Pain in the left hip with discharge and increased seepage Skin: Denies: Rash, Wounds Neurological: Denies: Numbness, Tingling, Focal weakness Vital Signs Vital Signs Vital Signs: 08/18/21 14:59 08/18/21 15:02 08/18/21 17:02 Temperature 99.2 F H 99.2 F H 99.1 F Temperature Source Temporal Temporal Temporal Pulse Rate 107 H 107 H 101 H Respiratory Rate 16 16 17 Blood Pressure 122/67 H 122/67 H 107/53 L Blood Pressure Mean 85 71 Pulse Ox 92 92 98 Oxygen Delivery Method Room Air Room Air Room Air 08/18/21 16:59 Temperature Temperature Source Pulse Rate Respiratory Rate 15 Blood Pressure Blood Pressure Mean Pulse Ox Oxygen Delivery Method Weight Weight: 78.018 kg Body Mass Index (BMI) 33.5 Physical Exam Narrative Physical exam: General: Alert, Oriented x3, Cooperative, appears frail, HEENT: Atraumatic Oral: Moist Mucosa Neck: Supple Lungs: Diminished to auscultation Cardiovascular: HS I+II, regular, no murmurs Abdomen: Bowel Sounds Present, Soft, Non Tender Extremities: Cellulitic area over the left hip, left hip joint erythema and swelling with dime size necrotic area with purulent base, bilateral leg edema +1 Skin: No rashes, No breakdown Neurological: Grossly intact Psych/Mental Status: Appropriate Results Lab / Micro Data Result Diagrams: 08/18/21 15:45 08/18/21 15:45 Labs: Laboratory Results - last 24 hr 08/18/21 15:45: WBC 8.6, RBC 3.58 L, Hgb 10.5 L, Hct 34.5 L, MCV 96.4, MCH 29.3, MCHC 30.4 L, RDW Std Deviation 62.5 H, RDW Coeff of [place] 17.7 H, Plt Count 202, MPV 11.2, Immature Gran % (Auto) 0.300, Neut % (Auto) 72.5 H, Lymph % (Auto) 10.9 L, [place] % (Auto) 14.1 H, Eos % (Auto) 1.3, Baso % (Auto) 0.9, Absolute Neuts (auto) 6.2, Absolute Lymphs (auto) 0.94, Nucleated RBC % 0 08/18/21 15:45: Sodium 141, Potassium 3.9, Chloride 104, Carbon Dioxide 29.0, Anion Gap 8, BUN 42 H, Creatinine 1.74 H, Estim Creat Clear Calc 17.29, Est GFR (MDRD) Af Amer 36 L, Est GFR (MDRD) Non-Af 30 L, BUN/Creatinine Ratio 24.1 H, Glucose 170 H, Calcium 9.1, Total Bilirubin 1.30 H, AST 21, ALT 11 L, Alkaline Phosphatase 187 H, Total Protein 7.2, Albumin 3.1 L, Globulin 4.1, Album in/Globulin Ratio 0.8 L 08/18/21 15:45: Lactic Acid 2.6 H* Assessment & Plan Assessment/Plan (1) Cellulitis of hip, left: PLAN: Plan 1. Acute infected wound over the the left hip, history of recent hip arthroplasty Unclear if the prosthesis is affected; patient reportedly had recent imaging Orthopedics consult, IV vancomycin and Zosyn, ID consult We will follow-up orthopedics recommendations We will hold Eliquis and Plavix in the event of I&D 2. History of CAD status post CABG, status post stents. status post aortic valve replacement with bioprosthetic valve, hypertension, paroxysmal atrial fibrillation/chronic heart failure with reduced EF, not in acute exacerbation, Eliquis and Plavix on hold; will resume as soon as plan is clarified Hold Lasix for now 3. Chronic anemia, continue oral iron, PPI 4. Hypertension, controlled, continue on metoprolol 5. DVT PPx- SCDs -Eliquis on hold 6. I discussed and explained in details the various types of CODE STATUS-full code, DNR CCA, DNR CC. Patient chose DNR CCA, no intubation Time spent discussing CODE STATUS 16 minutes Charges/Coding Visit Charges Inpatient E&M: 11190 Init Hosp L3 Procedures Hospitalists Procedures: 60291 Advncd Care Plan 30 Min
[2021-08-18 19:47] LABS: Reflex Lactate? Y
[2021-08-18 20:45] LABS: Lactic Acid 1.6 mmol/L (0.4-1.9)
[2021-08-18] MEDS: 0.9% Saline Lock 10 ML Syringe IV (21:51)
[2021-08-18] MEDS: Gabapentin 300 MG Capsule PO (21:59)
[2021-08-18] MEDS: Senna/Docusate Sodium 1 Tablet 2 TABLET PO (21:59)
[2021-08-18] MEDS: Metoprolol Tartrate 25 MG Tablet 12.5 MG PO (21:59)
--- NOTE | 2021-08-19 00:14 | PCM.RX.CS ---
Consult Pharmacy has been consulted to manage selected antiobiotic: Vancomycin Type of Consult: New start Labs: Sodium 141 mmol/L (136-145) 08/18/21 15:45 Potassium 3.9 mmol/L (3.5-5.1) 08/18/21 15:45 Chloride 104 mmol/L (98-107) 08/18/21 15:45 Carbon Dioxide 29.0 mmol/L (21.0-32.0) 08/18/21 15:45 Anion Gap 8 (5-15) 08/18/21 15:45 BUN 42 mg/dL (7-18) H 08/18/21 15:45 Creatinine 1.74 mg/dL (0.55-1.02) H 08/18/21 15:45 Est GFR (MDRD) Af Amer 36 mL/min (>60) L 08/18/21 15:45 Est GFR (MDRD) Non-Af 30 mL/min (>60) L 08/18/21 15:45 BUN/Creatinine Ratio 24.1 RATIO (10-20) H 08/18/21 15:45 Glucose 170 mg/dL (74-106) H 08/18/21 15:45 Weight used for dosin.9 kg Estimated Creatinine Clearance: 22.8 Goal Trough: 15-20 mcg/mL Pharmacy Plan for Drug Dosing: Pharmacy Service will continue to monitor and adjust dosing as required. Medications Vancomycin HCl 750 mg/ Sodium (Chloride) 265 mls @ 250 mls/hr IV Q24H SUSAN Discontinued Medications Vancomycin HCl 1,250 mg/ (Sodium Chloride) 275 mls @ 167 mls/hr IV X1 ONE Stop: 08/18/21 23:08 Last Admin: 08/18/21 23:33 Dose: Infused Follow-Up Labs: Trough Vancomycin Labs to be done on [date and time ordered]: 08/20 @ 9018
[2021-08-19] MEDS: MELATONIN 10 MG TABLET PO (00:15)
[2021-08-19 02:40] VITALS: BP 91/52; PULSE 86; RESP 18; TEMP 37.1; O2SAT 94
[2021-08-19] MEDS: Levothyroxine 125 MCG Tablet PO (05:22)
[2021-08-19] MEDS: Gabapentin 300 MG Capsule PO ×3 (05:22→21:09)
--- NOTE | 2021-08-19 05:55 | EKG12_ITS ---
Test Reason : AM EKG Blood Pressure : / mmHG Vent. Rate : 079 BPM Atrial Rate : 234 BPM P-R Int : 000 ms QRS Dur : 102 ms QT Int : 396 ms P-R-T Axes : 000 -62 -56 degrees QTc Int : 454 ms Atrial fibrillation Left axis deviation Inferior infarct , age undetermined Poor R wave progression Abnormal ECG Confirmed by ERIN JIMENEZ, MARLENE ([id number]), business editor SABRINA FLORES ([id number]) on 08/20/2021 9:14:49 AM Referred By: BETTY Confirmed By:MARLENE KHAN MD
[2021-08-19 07:33] LABS: Thyroid Stim Hormone (TSH) 1.17 uIU/mL (0.358-3.74)
--- NOTE | 2021-08-19 08:13 | WOUNDNOTE ---
wound photo: left hip
[2021-08-19 08:40] VITALS: BP 144/55; PULSE 72; RESP 18; TEMP 36.9; O2SAT 95
[2021-08-19] MEDS: Multivitamins,Ther W-Minerals Tablet 1 TABLET PO (09:08)
[2021-08-19] MEDS: Senna/Docusate Sodium 1 Tablet 2 TABLET PO ×2 (09:08→21:09)
[2021-08-19] MEDS: Ascorbic Acid 500 MG Tablet PO ×2 (09:09→18:51)
[2021-08-19] MEDS: Pantoprazole Sodium 20 MG Tablet PO (09:09)
[2021-08-19] MEDS: Calcium (Elemental) 500 MG Tablet PO ×2 (09:09→18:51)
[2021-08-19 09:10] VITALS: PULSE 80
[2021-08-19] MEDS: Metoprolol Tartrate 25 MG Tablet 12.5 MG PO ×2 (09:10→21:10)
[2021-08-19] MEDS: Cholecalciferol (VIT D3) 25 MCG TABLET (1,000 UNITS) PO (09:10)
[2021-08-19 09:19] VITALS: PULSE 72
--- NOTE | 2021-08-19 09:57 | CON.PCM.ID_ITS ---
Assessment & Plan Assessment/Plan (1) Cellulitis of hip, left: PLAN: Patient was placed empirically on vancomycin plus Zosyn. Plan for s urgical debridement of the left hip tomorrow with hopefully good intraoperative cultures to determine specific antibiotic regimen. HPI Consult Data Date of Consult: 08/19/21 HPI Narrative Reason for Consultation: Left hip soft tissue infection HPI Narrative: GALILEO HUSTON, is a 86 F who presents increasing pain left hip and a nonhealing wound at the left hip surgical site. Patient does have a recent history of a left hip surgery in April 2021. Over the past 2 weeks she has developed a wound at the left hip incision as well as some surrounding erythema. She does have localizing pain left hip but she is able to move her left hip without difficulty. No systemic complaints such as fever or chills. No cardiopulmonary distress. Patient does have a history of osteoarthritis and multiple orthopedic surgeries including bilateral total knee arthroplasties in the recent left hip orthopedic surgery. Patient was admitted and placed on vancomycin plus Zosyn. Patient is scheduled to the operating room tomorrow for debridement of the left hip wound. [facility] Medical History (Updated 08/18/21 @ 23:08 by Becka Ramírez) Acquired hypothyroidism Acute kidney injury Acute kidney injury superimposed on CKD Anemia Anxiety and depression Atherosclerosis of coronary artery of [place] heart without angina pectoris Chronic combined systolic and diastolic CHF (congestive heart failure) Chronic kidney disease, stage 3 COVID-19 virus detected (02/29/20) Elevated serum globulin level Esophagitis Essential hypertension Fracture of femoral neck, left, closed HFrEF (heart failure with reduced ejection fraction) Hiatal hernia High cholesterol History of non-ST elevation myocardial infarction (NSTEMI) (04/2020) History of stress test Insomnia Irritable bowel Ischemic cardiomyopathy Left atrial enlargement Nonrheumatic aortic (valve) stenosis Obesity (BMI 30-39.9) Orthopedic aftercare Paroxysmal atrial fibrillation Post-menopausal PUD (peptic ulcer disease) Restless legs Sciatica Secondary pulmonary arterial hypertension Takotsubo cardiomyopathy Ulcer Home Medications nitroglycerin 0.4 mg sublingual tablet 0.4 mg sublingual Q5M PRN Chest Pain 02/24/16 [History Last Taken 06/30/17] levothyroxine 125 mcg tablet 125 mcg PO DAILY thyroid #30 tabs 11/14/18 [History Last Taken 08/18/21] acetaminophen 325 mg tablet 650 mg PO Q6H PRN PRN Pain 1-10 Or Fever 05/13/20 [Rx Last Taken 1 Week Ago ~08/11/21] omeprazole 20 mg capsule,delayed release 20 mg PO DIRECTED gerd 07/28/20 [History Last Taken 08/18/21] clopidogrel 75 mg tablet 75 mg PO DAILY blood thinner #90 tabs 08/04/20 [Rx Last Taken 08/17/21] apixaban 5 mg tablet 2.5 mg PO BID blood thinner 08/21/20 [History Last Taken 08/18/21] geriatric [id number] 1 tab PO DAILY supplement 08/21/20 [History Last Taken 08/18/21] oxycodone 5 mg tablet 5 mg PO Q4H PRN Pain 08/21/20 [History Last Taken 08/18/21] gabapentin 300 mg capsule 300 mg PO TID nerve pain 05/25/21 [History Last Taken 08/18/21] ferrous sulfate 325 mg (65 mg iron) tablet 325 mg PO BID supplement 05/26/21 [History Last Taken 08/18/21] furosemide 40 mg tablet See Rx Instructions PO .COMPLEX water pill #30 tabs 07/21/21 [Rx Last Taken 08/18/21] ascorbic acid (vitamin C) 500 mg tablet 500 mg PO BID supplement 08/18/21 [History Last Taken 08/18/21] calcium carbonate 500 mg calcium (1,250 mg) tablet 500 mg PO BIDCM supplement 08/18/21 [History Last Taken 08/18/21] cholecalciferol (vitamin D3) 25 mcg (1,000 unit) tablet 1,000 unit PO DAILY supplement 08/18/21 [History Last Taken 08/18/21] metolazone 2.5 mg tablet 2.5 mg PO 2XW weight gain 08/18/21 [History Last Taken 08/18/21] metoprolol tartrate 25 mg tablet 12.5 mg PO BID bp 08/18/21 [History Last Taken 08/18/21] psyllium husk (aspartame) 3.4 gram oral powder packet 1 packet PO DAILY constipation 08/18/21 [History Last Taken 08/14/21] sennosides 8.6 mg-docusate sodium 50 mg tablet 2 tablet PO BID stool softener 08/18/21 [History Last Taken 08/18/21] Allergy/AdvReac Type Severity Reaction Status Date / Time atorvastatin [From Lipitor] AdvReac Pain in Verified 08/18/21 15:02 joints niacin AdvReac Pain in Verified 08/18/21 15:02 joints pregabalin [From Lyrica] AdvReac leg pain Verified 08/18/21 15:02 simvastatin [From Zocor] AdvReac Pain in Verified 08/18/21 15:02 joints Family History Mother Diabetes Heart disease Other CAD (coronary artery disease) Surgical History (Updated 08/18/21 @ 23:08 by Becka Ramírez) H/O cardiac catheterization H/O coronary artery bypass surgery (01/2016) History of aortic valve replacement with bioprosthetic valve (01/2016) History of arthroplasty of left hip (04/21/21) History of cardioversion (12/24/19) History of coronary artery stent placement (2014) Social History household members: family Smoking Status: Never smoker alcohol intake: never substance use type: does not use caffeine: No ROS ROS Narrative Noncontributory. Physical Exam Narrative Alert responsive does not appear toxic. Lungs are clear heart exam S1-S2 with a systolic click abdomen soft nontender left hip wound with some surrounding erythema. I could not express any purulent drainage at this time. Patient has good range of motion of the left hip without any pain. Lab / Micro Data Result Diagrams: 08/18/21 15:45 08/18/21 15:45 Labs: Laboratory Results - last 24 hr 08/18/21 15:45: WBC 8.6, RBC 3.58 L, Hgb 10.5 L, Hct 34.5 L, MCV 96.4, MCH 29.3, MCHC 30.4 L, RDW Std Deviation 62.5 H, RDW Coeff of Leatha 17.7 H, Plt Count 202, MPV 11.2, Immature Gran % (Auto) 0.300, Neut % (Auto) 72.5 H, Lymph % (Auto) 10.9 L, [place] % (Auto) 14.1 H, Eos % (Auto) 1.3, Baso % (Auto) 0.9, Absolute Neuts (auto) 6.2, Absolute Lymphs (auto) 0.94, Nucleated RBC % 0 08/18/21 15:45: Sodium 141, Potassium 3.9, Chloride 104, Carbon Dioxide 29.0, Anion Gap 8, BUN 42 H, Creatinine 1.74 H, Estim Creat Clear Calc 17.29, Est GFR (MDRD) Af Amer 36 L, Est GFR (MDRD) Non-Af 30 L, BUN/Creatinine Ratio 24.1 H, Glucose 170 H, Calcium 9.1, Total Bilirubin 1.30 H, AST 21, ALT 11 L, Alkaline Phosphatase 187 H, Total Protein 7.2, Albumin 3.1 L, Globulin 4.1, Albumin/Globulin Ratio 0.8 L 08/18/21 15:45: Lactic Acid 2.6 H* 08/18/21 18:50: Lactic Acid 1.6 08/19/21 06:25: TSH 1.17
--- NOTE | 2021-08-19 10:05 | WOUNDNOTE ---
Slough covers the wound bed, but there is drainage noted from around the slough. Dr De La Torre did not feel a culture would be accurate d/t skin bacteria. Dr Nettles to get cultures in OR.
--- NOTE | 2021-08-19 11:45 | CASEMGMT ---
ADONIS NAJERA Face to Face with patient for initial transition planning/care coordination assessment. ADONIS NAJERA introduced self and role at [facility]. Patient lying in bed, alert and oriented. Patient willing to participate in assessment and is able to answer all questions appropriately. Care providers, pharmacy, and demographics verified. Patient wishes to discharge home, will monitor for HHC pending surgery and progress with therapy. ADONIS NAJERA discussed possible SNF pending progress with therapy. Patient states she has no further needs or concerns at this time. CM to follow for discharge planning needs that may arise. 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 Patient states she independent at home. Transportation: DME/HHC: Patient states she has shower chair, raised toielt, cane, rollator, and grab bars at home. Patient has had [facility] HHC in the past. No previous SNF Disposition Plan: TBD anticipate HHC vs SNF pending surgery, possible IV ATBs, and therapy. Yohana CHOW, RN, CM
--- NOTE | 2021-08-19 12:37 | PCM.PN.HOSP ---
Subjective Subjective Follow-up on left hip wound: Patient was seen and examined. No acute events. Denies any fever or chills. Objective Data Objective Data Vital Signs: Vital Signs Temp Pulse Resp BP Pulse Ox O2 Del Method 98.5 F 72 18 144/55 H 95 Room Air 08/19/21 08:40 08/19/21 09:19 08/19/21 08:40 08/19/21 08:40 08/19/21 08:40 08/19/21 08:40 Oxygen Delivery Method Room Air Weight: 81.9 kg Body Mass Index (BMI) 35.4 Intake & Output: Intake and Output for Last 24 Hours 08/17/21 08/18/21 08/19/21 23:59 23:59 23:59 Intake Total 375 / 375 100 / 100 Output Total 500 / 500 Balance 375 / 375 -400 / -400 Lab / Micro Data Result Diagrams: 08/18/21 15:45 08/18/21 15:45 Labs: Laboratory Results - last 24 hr 08/18/21 15:45: WBC 8.6, RBC 3.58 L, Hgb 10.5 L, Hct 34.5 L, MCV 96.4, MCH 29.3, MCHC 30.4 L, RDW Std Deviation 62.5 H, RDW Coeff of Leatha 17.7 H, Plt Count 202, MPV 11.2, Immature Gran % (Auto) 0.300, Neut % (Auto) 72.5 H, Lymph % (Auto) 10.9 L, [place] % (Auto) 14.1 H, Eos % (Auto) 1.3, Baso % (Auto) 0.9, Absolute Neuts (auto) 6.2, Absolute Lymphs (auto) 0.94, Nucleated RBC % 0 08/18/21 15:45: Sodium 141, Potassium 3.9, Chloride 104, Carbon Dioxide 29.0, Anion Gap 8, BUN 42 H, Creatinine 1.74 H, Estim Creat Clear Calc 17.29, Est GFR (MDRD) Af Amer 36 L, Est GFR (MDRD) Non-Af 30 L, BUN/Creatinine Ratio 24.1 H, Glucose 170 H, Calcium 9.1, Total Bilirubin 1.30 H, AST 21, ALT 11 L, Alkaline Phosphatase 187 H, Total Protein 7.2, Albumin 3.1 L, Globulin 4.1, Albumin/Globulin Ratio 0.8 L 08/18/21 15:45: Lactic Acid 2.6 H* 08/18/21 18:50: Lactic Acid 1.6 08/19/21 06:25: TSH 1.17 Physical Exam Narrative Physical exam: General: Alert, Oriented x3, Cooperative, appears frail, HEENT: Atraumatic Oral: Moist Mucosa Neck: Supple Lungs: Diminished to auscultation Cardiovascular: HS I+II, regular, no murmurs Abdomen: Bowel Sounds Present, Soft, Non Tender Extremities: improved cellulitic area over the left hip, left hip joint erythema and swelling with dime size necrotic area with purulent base, bilateral leg edema +1 Skin: No rashes, No breakdown Neurological: Grossly intact Psych/Mental Status: Appropriate Assessment & Plan Assessment/Plan (1) Cellulitis of hip, left: PLAN: Plan 1. Acute infected wound over the the left hip; history of recent hip arthroplasty Unclear if the prosthesis is affected; patient reportedly had recent imaging Continue on IV vancomycin and Zosyn Orthopedics and ID consult - surgical debridement of the left hip 2. History of CAD status post CABG, status post stents, status post aortic valve replacement with bioprosthetic valve, hypertension, paroxysmal atrial fibrillation/chronic heart failure with reduced EF, not in acute exacerbation, Eliquis and Plavix on hold; will resume as soon as plan is clarified Hold Lasix for now 3. Chronic anemia, continue oral iron, PPI 4. Hypertension, controlled, continue on metoprolol 5. DVT PPx- SCDs -Eliquis on hold Charges/Coding Visit Charges Inpatient E&M: 56586 Subs Hosp L2
[2021-08-19] MEDS: Ferrous Sulfate 325 MG Tablet PO ×2 (13:47→18:52)
[2021-08-19 14:18] VITALS: BP 138/60; PULSE 73; RESP 18; TEMP 36.6; O2SAT 93
[2021-08-19 15:54] LABS: Erythrocyte Sedimentation Rate 61 mm/hr (0-30)
--- NOTE | 2021-08-19 17:40 | PCM.CONS.GEN ---
Assessment & Plan Assessment/Plan (1) Left hip prosthetic joint infection: PLAN: Patient is 4 months status post left total replacement. She developed pain 2 to 3 weeks ago with drainage over the last week. She presented to the office yesterday and x-rays were reviewed. There was concern for some subsidence on the x-rays in the office. I was able to review them myself and have similar concerns. However patient does not note any leg length discrepancy with ambulation and does not demonstrate 1 on examination today. Patient has significant medical comorbidities and is at significant risk for current complication. I discussed the patient her medical comorbidities. Because of this we did have her present to the emergency department yesterday and she was admitted to medicine and has been examined in preparation for surgical intervention. At this point patient understands that with an infection internal debridement is necessary in order to clear the infection. We did discuss two-stage revision however at this time based on her medical comorbidities and her recent history of surgery and desire not to proceed with extensive surgery we have elected to proceed with retention of implants and likely would stage revision with chronic suppressive antibiotics. Risk and benefits of the procedure were discussed the patient including but not limited to blood loss, DVTs, PEs, nervous damage, continued or recurrent infections, side effects of antibiotics long-term dislocations and leg length discrepancies. Patient demonstrates an understanding and does wish to proceed. She is on Eliquis and took it yesterday morning. Because of this we would like to wait least 48 hours from her last dose. I would like to proceed with surgery tomorrow for irrigation debridement. Intraoperatively will test the implants. If they are well fixed they will remain. If they are easily removed we will revise any implant that is not well fixed. Patient demonstrates an understanding of this treatment plan and wishes to proceed. [facility] Office: HPI Consult Data Date of Consult: 08/19/21 HPI Narrative Reason for Consultation: Left periprosthetic hip infection HPI Narrative: GALILEO HUSTON, is a 86 F who presents today with drainage from her left hip. Patient presented to my office yesterday stating she had purulent drainage from the hip. At the posterior incision her noted the drainage. Patient reports that over the last week she has been noticing some abnormal moisture in that area and a foul-smelling odor. She notices it after showering. It became worse yesterday. She does not report any pain. She reports after laying in bed throughout the day she is tired however she does not report significant onset of malaise. She did have elevated lactic acid ESR and CRP upon presentation to the hospital yesterday. 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 Surgery had gone uneventful. Her recovery was progressing slowly and she did remain on a walker at her 3-month visit. Today she reports moderate amount of pain. Her biggest complaint is that she has been placed on bedrest and is unable to get up and move around. Patient is on Eliquis and her last dose was yesterday morning. [facility] Medical History Acquired hypothyroidism Acute kidney injury Acute kidney injury superimposed on CKD Anemia Anxiety and depression Atherosclerosis of coronary artery of [place] heart without angina pectoris Chronic combined systolic and diastolic CHF (congestive heart failure) Chronic kidney disease, stage 3 COVID-19 virus detected (02/29/20) Elevated serum globulin level Esophagitis Essential hypertension Fracture of femoral neck, left, closed HFrEF (heart failure with reduced ejection fraction) Hiatal hernia High cholesterol History of non-ST elevation myocardial infarction (NSTEMI) (04/2020) History of stress test Insomnia Irritable bowel Ischemic cardiomyopathy Left atrial enlargement Nonrheumatic aortic (valve) stenosis Obesity (BMI 30-39.9) Orthopedic aftercare Paroxysmal atrial fibrillation Post-menopausal PUD (peptic ulcer disease) Restless legs Sciatica Secondary pulmonary arterial hypertension Takotsubo cardiomyopathy Ulcer Home Medications nitroglycerin 0.4 mg sublingual tablet 0.4 mg sublingual Q5M PRN Chest Pain 02/24/16 [History Last Taken 06/30/17] levothyroxine 125 mcg tablet 125 mcg PO DAILY thyroid #30 tabs 11/14/18 [History Last Taken 08/18/21] acetaminophen 325 mg tablet 650 mg PO Q6H PRN PRN Pain 1-10 Or Fever 05/13/20 [Rx Last Taken 1 Week Ago ~08/11/21] omeprazole 20 mg capsule,delayed release 20 mg PO DIRECTED gerd 07/28/20 [History Last Taken 08/18/21] clopidogrel 75 mg tablet 75 mg PO DAILY blood thinner #90 tabs 08/04/20 [Rx Last Taken 08/17/21] apixaban 5 mg tablet 2.5 mg PO BID blood thinner 08/21/20 [History Last Taken 08/18/21] geriatric [id number]-wxoc-wxuv 1 tab PO DAILY supplement 08/21/20 [History Last Taken 08/18/21] oxycodone 5 mg tablet 5 mg PO Q4H PRN Pain 08/21/20 [History Last Taken 08/18/21] gabapentin 300 mg capsule 300 mg PO TID nerve pain 05/25/21 [History Last Taken 08/18/21] ferrous sulfate 325 mg (65 mg iron) tablet 325 mg PO BID supplement 05/26/21 [History Last Taken 08/18/21] furosemide 40 mg tablet See Rx Instructions PO .COMPLEX water pill #30 tabs 07/21/21 [Rx Last Taken 08/18/21] ascorbic acid (vitamin C) 500 mg tablet 500 mg PO BID supplement 08/18/21 [History Last Taken 08/18/21] calcium carbonate 500 mg calcium (1,250 mg) tablet 500 mg PO BIDCM supplement 08/18/21 [History Last Taken 08/18/21] cholecalciferol (vitamin D3) 25 mcg (1,000 unit) tablet 1,000 unit PO DAILY supplement 08/18/21 [History Last Taken 08/18/21] metolazone 2.5 mg tablet 2.5 mg PO 2XW weight gain 08/18/21 [History Last Taken 08/18/21] metoprolol tartrate 25 mg tablet 12.5 mg PO BID bp 08/18/21 [History Last Taken 08/18/21] psyllium husk (aspartame) 3.4 gram oral powder packet 1 packet PO DAILY constipation 08/18/21 [History Last Taken 08/14/21] sennosides 8.6 mg-docusate sodium 50 mg tablet 2 tablet PO BID stool softener 08/18/21 [History Last Taken 08/18/21] Allergy/AdvReac Type Severity Reaction Status Date / Time atorvastatin [From Lipitor] AdvReac Pain in Verified 08/18/21 15:02 joints niacin AdvReac Pain in Verified 08/18/21 15:02 joints pregabalin [From Lyrica] AdvReac leg pain Verified 08/18/21 15:02 simvastatin [From Zocor] AdvReac Pain in Verified 08/18/21 15:02 joints Family History Mother Diabetes Heart disease Other CAD (coronary artery disease) Surgical History H/O cardiac catheterization H/O coronary artery bypass surgery (01/2016) History of aortic valve replacement with bioprosthetic valve (01/2016) History of arthroplasty of left hip (04/21/21) History of cardioversion (12/24/19) History of coronary artery stent placement (2014) Social History household members: family Smoking Status: Never smoker alcohol intake: never substance use type: does not use caffeine: No ROS ROS Narrative 14 point review of systems other than what is noted in the HPI is negative. Physical Exam Const alert and oriented x3 General Appearance: cooperative and comfortable HEENT normocephalic Eyes PERRL Neck No nuchal rigidity Resp normal respiratory effort Cardio no JVD GI non-distended Extremity Extremity Narrative: Left lower extremity: Leg lengths are equal on palpation of medial malleoli. Patient has a dime sized area of ulceration with purulent drainage on her overlying dressing on the left hip posterior to the incision. The incision itself appears to be well-healed. There is foul-smelling odor from the dressing. Neurovascular intact distally. No pain with hip internal or external rotation/logroll motion. Skin Skin Narrative: Dime size area of necrosis with purulent drainage over the left posterior hip. Neuro CN's II-XII intact bilaterally Psych mental status grossly normal Medical Records Data Attestation: I reviewed the patient's medical records Lab / Micro Data Attestation: I reviewed the patient's lab results. Result Diagrams: 08/18/21 15:45 08/18/21 15:45 Labs: Laboratory Results - last 24 hr 08/18/21 15:45: ESR 61 H 08/18/21 15:45: C-React Prot Ext Range 44.50 H 08/18/21 18:50: Lactic Acid 1.6 08/19/21 06:25: TSH 1.17
[2021-08-19] MEDS: oxyCODONE 5 MG Tablet PO (21:09)
[2021-08-19 21:10] VITALS: BP 136/46; PULSE 83; RESP 16; TEMP 36.6; O2SAT 95
[2021-08-20] VITALS (10 sets, daily range): BP systolic 84–141; BP diastolic 61–104; PULSE 84–103; RESP 16–18; TEMP 36.1–36.8; O2SAT 93–99; BMI 35.4
[2021-08-20] MEDS: oxyCODONE 5 MG Tablet PO ×3 (03:12→23:01)
[2021-08-20] MEDS: Gabapentin 300 MG Capsule PO ×2 (06:16→22:54)
[2021-08-20] MEDS: Levothyroxine 125 MCG Tablet PO (06:16)
[2021-08-20 07:30] LABS: Absolute Lymphocyte Count 0.96 X10^3/uL (0.83-4.51); Absolute Neutrophil Count 5.5 X10^3/uL (2.0-7.7); Basophil# 0.07 X10^3/uL; Basophil% 0.9 % (0-1); Eosinophil# 0.25 X10^3/uL; Eosinophils% 3.1 % (0-5); Hematocrit 36.8 % (37-47); Hemoglobin 11.4 g/dL (12.0-15.0); Lymphocyte # 0.96 X10^3/ul (0.83-4.51); Mean Corpuscular Hgb 29.4 pg (27.0-32.0); Mean Corpuscular Volume 94.8 fL (81-99); Mean Platelet Vol. 11.1 fl (6.2-12.0); Monocyte# 1.17 X10^3/uL; Monocyte% 14.6 % (0-10); NRBC Flagged by Analyzer 0 % (0-5); Neutrophil % 68.9 % (47-70); Platelet Count 200 K/mm3 (150-450); RBC Distribution Width CV 17.5 % (11.6-14.6); RBC Distribution Width SD 60.4 fl (35.1-43.9); Red Blood Count 3.88 M/mm3 (4.2-5.4)
[2021-08-20 08:29] LABS: Anion Gap 9 (5-15); BUN 35 mg/dL (7-18); BUN/Creat Ratio 20.8 RATIO (10-20); Calcium,Total 9.5 mg/dL (8.5-10.1); Chloride 103 mmol/L (98-107); Creatinine, Serum 1.68 mg/dL (0.55-1.02); EST Glomerular Filtration Rate 31 mL/min (>60); Est Glom Filt Rate - Afr Amer 37 mL/min (>60); Estimated Creatinine Clearance 32.23 ml/min; Glucose 118 mg/dL (74-106); Potassium 3.8 mmol/L (3.5-5.1); Sodium Level 139 mmol/L (136-145)
[2021-08-20] MEDS: Metoprolol Tartrate 25 MG Tablet 12.5 MG PO ×2 (10:00→22:55)
[2021-08-20] MEDS: Cholecalciferol (VIT D3) 25 MCG TABLET (1,000 UNITS) PO (10:00)
[2021-08-20] MEDS: Senna/Docusate Sodium 1 Tablet 2 TABLET PO ×2 (10:00→22:55)
[2021-08-20] MEDS: Pantoprazole Sodium 20 MG Tablet PO (10:00)
--- NOTE | 2021-08-20 11:35 | PN.HOSP_ITS ---
Subjective Subjective Follow-up on left hip wound: Patient was seen and examined. No acute events. Denies any fever or chills. Objective Data Objective Data Vital Signs: Vital Signs Temp Pulse Resp BP Pulse Ox O2 Del Method 98.3 F 95 17 136/70 H 93 Room Air 08/20/21 09:44 08/20/21 10:00 08/20/21 09:44 08/20/21 09:44 08/20/21 09:44 08/20/21 09:45 Oxygen Delivery Method Room Air Weight: 81.9 kg Body Mass Index (BMI) 35.4 Intake & Output: Intake and Output for Last 24 Hours 08/18/21 08/19/21 08/20/21 23:59 23:59 23:59 Intake Total 375 / 375 1545 / 1545 100 / 100 Output Total 800 / 800 300 / 300 Balance 375 / 375 745 / 745 -200 / -200 Lab / Micro Data Result Diagrams: 08/20/21 07:00 08/20/21 07:00 Labs: Laboratory Results - last 24 hr 08/18/21 15:45: ESR 61 H 08/18/21 15:45: C-React Prot Ext Range 44.50 H 08/20/21 07:00: WBC 8.0, RBC 3.88 L, Hgb 11.4 L, Hct 36.8 L, MCV 94.8, MCH 29.4, MCHC 31.0 L, RDW Std Deviation 60.4 H, RDW Coeff of Leatha 17.5 H, Plt Count 200, MPV 11.1, Immature Gran % (Auto) 0.500, Neut % (Auto) 68.9, Lymph % (Auto) 12.0 L, [place] % (Auto) 14.6 H, Eos % (Auto) 3.1, Baso % (Auto) 0.9, Absolute Neuts (auto) 5.5, Absolute Lymphs (auto) 0.96, Nucleated RBC % 0 08/20/21 07:00: Sodium 139, Potassium 3.8, Chloride 103, Carbon Dioxide 27.0, Anion Gap 9, BUN 35 H, Creatinine 1.68 H, Estim Creat Clear Calc 32.23, Est GFR (MDRD) Af Amer 37 L, Est GFR (MDRD) Non-Af 31 L, BUN/Creatinine Ratio 20.8 H, Glucose 118 H, Calcium 9.5 Physical Exam Narrative Physical exam: General: Alert, Oriented x3, Cooperative, appears frail, HEENT: Atraumatic Oral: Moist Mucosa Neck: Supple Lungs: Diminished to auscultation Cardiovascular: HS I+II, regular, no murmurs Abdomen: Bowel Sounds Present, Soft, Non Tender Extremities: improved cellulitic area over the left hip, left hip joint erythema and swelling with dime size necrotic area with purulent base, bilateral leg edema +1 Skin: No rashes, No breakdown Neurological: Grossly intact Psych/Mental Status: Appropriate Assessment & Plan Assessment/Plan (1) Cellulitis of hip, left: PLAN: Plan 1. Acute infected wound over the the left hip; history of recent hip arthroplasty Unclear if the prosthesis is affected; patient reportedly had recent imaging Patient is going for wound debridement by orthopedic surgery. Continue on IV vancomycin and Zosyn Orthopedics and ID consulted. 2. History of CAD status post CABG, status post stents, status post aortic valve replacement with bioprosthetic valve, hypertension, paroxysmal atrial fibrillation/chronic heart failure with reduced EF, not in acute exacerbation, Eliquis and Plavix on hold; will resume when orthopedics okays. Continue to hold Lasix for now 3. Chronic anemia, continue oral iron, PPI 4. Hypertension, controlled, continue on metoprolol 5. Hypothyroidism, continue on Synthroid. 6. DVT PPx- SCDs -Eliquis on hold Charges/Coding Visit Charges Inpatient E&M: 61962 Subs Hosp L2
--- NOTE | 2021-08-20 12:02 | CASEMGMT ---
Addendum entered by Alicja Piper 08/20/21 15:17: Pt's daughter is here, has questions. SW met w/pt and daughter in room. Daughter asked if pt was put on the TCU list, SW let her know she was. She was interested in [facility] as a second choice, SW explained that they also have no beds until next week. We discussed rehab here as a possible option, explained we can look at this further to see if would be an appropriate level of care once pt has had surgery and PT/OT.. Pt and daughter states understanding. SW to follow up after surgery and therapy. ZONIA Gonsalez Original Note: Social Work SW spoke w/physician, it is anticipated pt will need rehba in a facility at discharge. SW spoke w/pt in room in regard to discharge plan. Pt is in agreement that rehab may be needed at discharge. care home facility list in pt's insurance network, preferred geographic area and quality and resource use date given to pt. Pt states would like TCU. However, there are no beds, SW let pt know. SW asked pt to review list w/family and let SW know tomorrow alternative choices. Pt states understanding. SW did place pt on TCU list should a bed become available. Plan: SNF most likely, facility to be determined. SW will continue follow up after surgery tomorrow. ZONIA Gonsalez
--- NOTE | 2021-08-20 14:07 | CHAPLAIN ---
Type of Pastoral Visit _x__ Initial Visit ___ Follow-up Visit ___ On-call Visit ___ General Patient Visit ___ Spiritual Assessment ___ Family Conference ___ Bereavement ___ Rapid Response ___ Code Blue ___ Other (describe below) Pastoral Care Referral From _x__ Patient ___ Family ___ Nurse ___ Physician ___ Physician Scientist ___ Senior Java Programmer ___ Other (describe below) Sacrament/Intervention _x__ Active listening ___ Anointing ___ Advent ___ Bereavement ___ Communion ___ Shireen exploration ___ ___ Life review _x__ Prayer ___ Reconciliation ___ Sacrament of Sick ___ Supportive presence ___ Wedding ___ Other (describe below) Pastoral Comments patient to have surgery later this afternoon; pt anxious to get it done; pt welcomes presence and prayer for support; family members will be coming later to be with her through surgery time
[2021-08-20] MEDS: Morphine 2 MG/ML Syringe IV (14:38)
[2021-08-20] MEDS: Vancomycin IV 1,000 MG/20 ML Vial 1000 MG OPERA.SITE (20:04)
--- NOTE | 2021-08-20 20:24 | OP.PCM_ITS ---
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 Description of Surgical Findings:: Draining sinus tract connected with seroma with purulent fluid in the subcutaneous fatty layers. There was no apparent penetration of the fascial layer. Femoral stem was easily extracted on testing. Surgeon: French Nettles tool and machine maintainer: Adi Rodriguez Type of Anesthesia: General/Regional Anesthesiologist: Heriberto Taylor Special Medications: Vancomycin IV, Zosyn IV on the floor. 1 g vancomycin powder in wound. 2 g TXA lavage prior to closure. Specimen's removed: 5 separate specimens were sent to microbiology 1 from the superficial area. For deep specimens. Estimated Blood Loss (mL): 300 Fluids Replaced: 1500 mL crystalloid Description of Procedure: Implants: 1. Kaylah 40 2E MDM liner, 2. [place] 44 #3 stem 220 mm 3. Kaylah MDM polyethylene 42E 4. Kaylah 28 mm Biolox delta +4 mm femoral head On the date of the procedure patient was reexamined. Her family was sitting at bedside. We again reiterated risks and benefits of surgery and surgical plan. Patient demonstrated understanding of risks and benefits noted in yesterday's consultation. Family also demonstrate understanding of risks which include but are not limited to blood loss, DVTs, PEs, nervous damage, infection, the risk of anesthesia including loss of life. Dislocations and leg length discrepancies. At this point everyone agreed to proceed with surgery and consented for the procedure of irrigation debridement of the hip replacement with head and liner exchange and possible revision of stem and acetabulum if loosened. In the preoperative area patient's left hip was marked. Patient was then brought back to the operating room where she was transferred to the table in s upine position. Anesthesia assumed control of the C-spine and airway and remained controlled throughout the remainder of the procedure. At this point with anesthesia and control of the airway the patient was placed in the lateral cubitus position. All bony prominences identified well-padded. Axillary roll was placed. Patient was secured to the table and fixed in the lateral cubitus position. Left lower extremity was then prepped with Betadine prep due to the open wound. Surgeons then scrubbed. Upon reentering the room left lower extremity was draped in a standard orthopedic fashion. Incision was marked out to ellipse the 15 mm sinus tract. Timeout was called. When agreed upon the side, the site, the procedure to be performed, patient's identity and antibiotics given. Incision was then taken down through skin proximally and distally with an ellipse around the sinus tract in the mid to proximal portion of the incision. We carefully dissected down around the sinus tract to we could find the base of it. We carefully excised the sinus tract and sent it off to pathology. Once we remove the sinus tract we carefully debrided any associated lining of the sinus tract. There was no deep communication with the joint through the fascia that we could visualize. Based on this we carefully irrigated out the wound using 3 L of normal saline. After the proximal wound was cleaned due to concerns for stem subsidence as well as nonvisualized deep communication we then elected to proceed. Based on our assessment of the wound however we did proceed with redraping the leg and op ening sterile instruments and regowned and gloving. Once this was completed we proceeded to incise the fascia in line with the topical wound. Once we are able to do this we were able to get down to the joint. We did a complete synovectomy and synovium was sent to microbiology. We then were able to retract the femur out of the weight and remove the acetabular liner. After this was removed we t ested the acetabular component appeared to be well fixed. Acetabular membrane was sent to microbiology. After this was done we carefully examined the femoral implant. We dissociated the body from the stem and it came out without issues. There is no bone ingrowth noted. We then placed the extraction device on the stem and it was easily removed. The membrane from the femur canal was sent for culture. We then reamed out the canal after removing as much membrane as possible. After reaming the count canal we then broached for a Iliamna stem. A size 44 size 3 Iliamna stem was broached and fit appropriately. After this was done, we removed retractors took tension off the skin and copiously irrigate out the wound with 6 L of normal saline under low-pressure lavage. After this was completed we again exposed the acetabulum and placed a new acetabular liner after irrigating the wound out with Irrisept. After the acetabular liner was placed the proximal femur was again exposed and the size 3 broach was placed. We trialed with a +4 femoral neck. Leg lengths were equal based on the patient's lateral decubitus position on the table. Hip was stable with 100 degrees flexion and stable at 90 degrees flexion with internal rotation to 40 degrees. Once this was done the hip was dislocated again. The trial components were removed and the broach was removed. We carefully visualized prior to removing the broach where it should appropriately seat with the final implant. Once was done the canal was copiously irrigated with normal saline. A cement restrictor was placed. The final implant was opened with a long extended stem 220 mm. Cement was mixed on the back table and the canal was prepared for cement. The cement was then pressurized in the canal and the implant was impacted into place. Excess cement was removed and once a cemented adequately cured we again trialed the +4 mm femoral head. This gave us equal leg lengths with a stable hip similar to trialing. Once were happy with this trial components were again removed final components were opened and assembled on the back table for an MDM femoral head and trunnion was cleaned and final head was impacted in the place. Hip was reduced and remained stable with equal leg lengths. There was no Adequate posterior capsule to repair. At this time the wound was lavaged for 3 minutes with a dilute Betadine lavage followed by an Irrisept lavage followed by copious amounts of normal saline. Once this was done TXA lavage was also performed. The fascia was then closed with #1 Vicryl. Deep fatty layer was closed #1 Vicryl. Skin was closed with 2-0 Vicryl and finally with 2-0 nylon suture. Sterile silver dressing was placed. Patient was awakened by anesthesia. She was transferred to the supine position and t ransferred to the hospital bed. Finally she was transferred to PACU for recovery in stable condition. During the course of the procedure the physician vp care management (PE) played a vital role. Their intimate knowledge of my steps in the procedure aided in safe and expedient completion of the procedure. The PE played a vital rolls in positioning particularly in obtaining the appropriate lateral decubitus position. The PE was also vital in the retraction of soft tissues during the exposure and especially the femoral work as this is a vital part of the procedure to prevent complications and fractures. The PE was also vital and protecting soft tissues during times of bony cuts and reaming. He also played a vital role in closure with my direct supervision. The PE was also important during reduction and dislocation of the joint and trials intraoperatively. Postop plan Therapy: Posterior hip precautions. Weightbearing as tolerated DVT prophylaxis: Patient can resume Eliquis tomorrow. Infection: Antibiotics per infectious disease cultures were taken today. Will require 6 weeks of IV antibiotics. We will consider chronic suppression we will await IDs final recommendations Wound: Recommend incisional wound VAC for 10 days postop. Change twice a week. 75 mmHg. We will have wound team place it tomorrow. Complications No intraoperative complications Admit VTE Documentation VTE Present on Admission: No VTE Mechan Device Prophylaxis: SCD's and Thigh High BECCA Hose VTE Pharm Prophylaxis ordered?: Yes
--- NOTE | 2021-08-20 21:30 | RAD_ITS ---
INDICATION: Post Op -- AP both hips on single rafael/lateral of op hip PACU EXAMINATION/TECHNIQUE: X-RAY - LEFT XR Hip Unilateral with Pelvis when performed; 2-3 Views 2 VIEWS COMPARISON: Pelvis x-ray 07/28/2020 FINDINGS: SOFT TISSUES: Soft tissue swelling and heterogeneous density overlying the left hip suggesting recent left hip plasty. Peripheral atherosclerosis. BONES/JOINTS: Longstem left hip total arthroplasty hardware shows no significant malalignment. Moderately advanced degenerative changes right hip. No sclerotic or destructive changes observed. RAD/Hip Min 2 Views (Portable) IMPRESSION: Postsurgical change recent left hip arthroplasty without evidence of complication. Electronically Signed: Vicente Stacy DO at 22:51 EDT ,
[2021-08-20] MEDS: 0.9% Saline Lock 10 ML Syringe IV (22:37)
[2021-08-20] MEDS: Acetaminophen 325 MG Tablet 650 MG PO (23:01)
[2021-08-21] VITALS (10 sets, daily range): BP systolic 97–120; BP diastolic 43–76; PULSE 60–128; RESP 14–18; TEMP 36.6–37.8; O2SAT 94–98
--- NOTE | 2021-08-21 | HIP_PTH ---
PATIENT: GALILEO HUSTON LOC: MS3 U#:[id number] AGE/SX: 86/F ROOM: [facility] RE08/18/[address]: Dr. Valeri Mcrae MD : [id number] BED: 1 DIS: 09/03/2021 SPEC #: [id number] RECD: 08/21/21 11:58 STATUS: AJIT REQ #: [id number] PAM: 08/21/21 00:[address]: French Nettles DEPT: SURGICAL PATHOLOGY RECD BY: Orlando Stafford ENTERED: 08/21/21 11:58 SP TYPE: TOTAL HIP OTHR DR: MD Dr. Landon Santos MD Dr. Steven Widmer, MD M Gregory Barton, [place] Tissues: Hip, NOS Procedures: Surgery Specimen Level IV Comments: @ Ordering doctor for DEC edited from to DR.SWIDME Sánchez by ANNABELLE at 08/21/21 1515 @ Ordering doctor for SUIV edited from to DR.SWIDME Princess ALANIS at 08/21/21 1515 @ Submitting doctor edited from to DR.SWIDME Princess ALANIS at 08/21/21 1515 HEADER OPERATION: Left hip irrigation debridement, sinus tract excision PRE-OP DIAGNOSIS: Left periprosthetic hip infection TISSUE SUBMITTED: Left hip sinus tract MICROSCOPIC DIAGNOSIS Skin and soft tissue of left hip, excision: Ulceration with associated acute and chronic inflammation and abscess formation. See comment. AM:dayday 08/24/2021 COMMENT Clinical correlation is suggested. MICROSCOPIC DESCRIPTION Slides are reviewed. GROSS DESCRIPTION Received in fixative is one container labeled with the patient's name and designated left hip sinus tract. The specimen consists of a piece of skin with underlying tissue measuring 8 x 2 cm and up to 3 cm in thickness. A focal area of ulceration is noted. Sections reveal a focal congested cut surface underneath the ulcerated area. No mass lesion is identified. Manufacturing Coordinator sections are submitted in three cassettes. / ONEIL:dayday 08/21/2021 TC:2 CPT: 81677
[2021-08-21] MEDS: Acetaminophen 325 MG Tablet 650 MG PO ×2 (05:14→21:31)
[2021-08-21] MEDS: oxyCODONE 5 MG Tablet PO ×2 (05:14→19:22)
[2021-08-21] MEDS: Levothyroxine 125 MCG Tablet PO (05:36)
[2021-08-21] MEDS: Gabapentin 300 MG Capsule PO ×3 (05:44→21:24)
[2021-08-21 06:31] LABS: Anion Gap 11 (5-15); BUN 31 mg/dL (7-18); BUN/Creat Ratio 20.7 RATIO (10-20); Calcium,Total 8.5 mg/dL (8.5-10.1); Chloride 106 mmol/L (98-107); EST Glomerular Filtration Rate 35 mL/min (>60); Est Glom Filt Rate - Afr Amer 43 mL/min (>60); Glucose 104 mg/dL (74-106); Potassium 3.9 mmol/L (3.5-5.1); Sodium Level 139 mmol/L (136-145)
[2021-08-21 07:06] LABS: Hematocrit 31.7 % (37-47); Hemoglobin 9.6 g/dL (12.0-15.0); Mean Corp Hgb Conc 30.3 g/dL (32-36); Mean Corpuscular Hgb 29.6 pg (27.0-32.0); Mean Corpuscular Volume 97.8 fL (81-99); Platelet Count 190 K/mm3 (150-450); RBC Distribution Width CV 17.2 % (11.6-14.6); RBC Distribution Width SD 62.2 fl (35.1-43.9); Red Blood Count 3.24 M/mm3 (4.2-5.4); White Blood Count 11.7 K/mm3 (4.4-11.0)
--- NOTE | 2021-08-21 07:15 | PCM.PN.ORT ---
Subjective Subjective The patient was sitting in bed upon examination. Patient denies any chest pain, shortness of breath, dizziness, lightheadedness, nausea or vomiting, or calf pain. Pain is controlled on medications. No adverse overnight events. Patient still complains of some pain in the left hip. Medications are helpful. Plan today is for patient to get wound VAC from wound nurse. She will also be assessed by infectious disease for recommendations on antibiotics. Patient is currently on Zosyn and vancomycin. Objective Data Objective Data Vital Signs: Vital Signs Temp Pulse Resp BP Pulse Ox O2 Del Method O2 Flow Rate 97.8 F 68 16 102/62 94 Nasal Cannula 2 08/21/21 05:49 08/21/21 05:49 08/21/21 05:49 08/21/21 05:49 08/21/21 05:49 08/21/21 05:49 08/21/21 05:49 Oxygen Flow Rate (L/min) 2 Oxygen Delivery Method Nasal Cannula Weight: 81.9 kg Body Mass Index (BMI) 35.4 Intake & Output: Intake and Output for Last 24 Hours 08/19/21 08/20/21 08/21/21 23:59 23:59 23:59 Intake Total 1795 / 1795 450 / 450 765 / 765 Output Total 800 / 800 600 / 600 Balance 995 / 995 -150 / -150 765 / 765 Lab / Micro Data Result Diagrams: 08/21/21 06:55 08/21/21 Unknown Labs: Laboratory Results - last 24 hr 08/20/21 07:00: WBC 8.0, RBC 3.88 L, Hgb 11.4 L, Hct 36.8 L, MCV 94.8, MCH 29.4, MCHC 31.0 L, RDW Std Deviation 60.4 H, RDW Coeff of Leatha 17.5 H, Plt Count 200, MPV 11.1, Immature Gran % (Auto) 0.500, Neut % (Auto) 68.9, Lymph % (Auto) 12.0 L, Cowley % (Auto) 14.6 H, Eos % (Auto) 3.1, Baso % (Auto) 0.9, Absolute Neuts (auto) 5.5, Absolute Lymphs (auto) 0.96, Nucleated RBC % 0 08/20/21 07:00: Sodium 139, Potassium 3.8, Chloride 103, Carbon Dioxide 27.0, Anion Gap 9, BUN 35 H, Creatinine 1.68 H, Estim Creat Clear Calc 32.23, Est GFR (MDRD) Af Amer 37 L, Est GFR (MDRD) Non-Af 31 L, BUN/Creatinine Ratio 20.8 H, Glucose 118 H, Calcium 9.5 08/20/21 12:40: Blood Type O POSITIVE, Antibody Screen NEGATIVE 08/21/21 06:55: WBC 11.7 H, RBC 3.24 L, Hgb 9.6 L, Hct 31.7 L, MCV 97.8, MCH 29.6, MCHC 30.3 L, RDW Std Deviation 62.2 H, RDW Coeff of Leatha 17.2 H, Plt Count 190, MPV 11.0 08/21/21 : Sodium 139, Potassium 3.9, Chloride 106, Carbon Dioxide 22.0, Anion Gap 11, BUN 31 H, Creatinine 1.50 H, Estim Creat Clear Calc 36.10, Est GFR (MDRD) Af Amer 43 L, Est GFR (MDRD) Non-Af 35 L, BUN/Creatinine Ratio 20.7 H, Glucose 104, Calcium 8.5 Radiography Diagnostic Testing: Radiology Impression Hip X-Ray 08/20/21 21:30 IMPRESSION: Postsurgical change recent left hip arthroplasty without evidence of complication. Electronically Signed: Vicente Stacy DO at 22:51 EDT , Physical Exam Narrative Vital signs stable and afebrile. BECCA hose and SCDs are in place Patient is able to plantarflex and dorsiflex actively. Sensation is intact to light touch to saphenous, sural, superficial and deep peroneal, and tibial distribution. Dressing is clean dry and intact. Negative Homans bilaterally, negative signs and symptoms of DVT. Const alert, oriented x3 and no apparent distress Assessment & Plan Assessment/Plan (1) History of revision of total replacement of left hip joint: PLAN: 1. S/P irrigation debridement of left hip infected seroma and excision sinus tract left hip with left hip irrigation debridement and complete synovectomy and revision femoral and acetabular components POD #1 2. Continue Pain Medications: Tylenol and oxycodone 3. DVT Prophylaxis: Patient will resume her Eliquis 4. PT/OT: Weightbearing as tolerated. Patient has a Rollator walker in her room. I did recommend regular walker postoperatively. She will also need to follow posterior hip dislocation precautions for 3 months postoperatively. 5. H & H: 9.6/31.7, asymptomatic. Postoperative anemia secondary to acute blood loss from surgery without any intra operative complications. 6. Encouraged Incentive Spirometry 7. Continue postoperative medical treatment per medicine 8. Continue antibiotics per infectious disease: Cultures are pending. Currently on Zosyn and vancomycin. Patient will require 6 weeks IV antibiotics. Consider chronic suppression and will await infectious disease final recommendations. 9. Incision/dressing: Patient will have wound VAC placed today by the wound nurse. This will be placed for 10 days postoperatively and changed twice weekly. Continuous setting at 75 mmHg. 10. Disposition: Case management will also be involved with appropriate discharge planning. We will need to await recommendations from infectious disease with regards to antibiotics. From an orthopedic standpoint patient will be weightbearing as tolerated with regular walker. She will need to continue postoperative posterior dislocation precautions for 3 months postoperatively. Mepilex dressing will be removed today and a wound VAC will be placed by wound nurse. Follow above recommendations. She will require 2-week postoperative follow-up with [facility] for x-rays and suture removal. This dictation was created using voice recognition software. Phonetic and/or grammatical errors may exist.
[2021-08-21] MEDS: Ensure Surgery 237 ML LIQUID PO ×2 (08:11→12:39)
--- NOTE | 2021-08-21 09:23 | PCM.PN.ID ---
ID ID: Route of nutrition/ use of supplements: [] Nutritional Intake: [] IV Site: [] Hudson Catheter: [] Patient taken to the operating room yesterday for debridement of the left hip with appeared to be a seroma along with a sinus tract. Operative note reviewed. Multiple operative specimens obtained for gram stain and culture. Culture data pending. Currently on vancomycin plus Zosyn empirically. Out of bed to a chair this morning eating breakfast. No fever. Overall clinically stable. No gastrointestinal distress. Currently euthermic vital signs are stable in no acute distress. Lungs are clear heart exam S1-S2 abdomen soft nontender. Left hip postop dressings are in place. Assessment & Plan Assessment/Plan (1) Left hip prosthetic joint infection: PLAN: Continue empiric antimicrobial therapy for vancomycin plus Zosyn and closely follow the intraoperative cultures obtained yesterday.
--- NOTE | 2021-08-21 09:53 | CASEMGMT ---
Addendum entered by Sandra Alegre 08/21/21 14:03: Social Work SW received return call from Kirsten at [facility] ([phone]) and precert has been given with reference #[id number]. Precert is good through Tuesday and if pt does not discharge over the weekend SW will resubmit for precert on Tuesday. Christy in TCU notified. Pt sleeping soundly and SW did not awake to inform. VM left with pt dgt to notify that precert has been obtained. Plan: TCU, when medically ready YOAN Payan Addendum entered by Sandra Alegre 08/21/21 11:18: Social Work Call placed to Mj at [facility] and Precert started with pt insurance. Clinicals faxed. Will await return call with determination. YOAN Payan Original Note: Social Work SW spoke with Christy in TCU and they now have a bed available and can accept pt. SW met with pt, pt dgt and pt spouse and informed about TCU. Questions answered regarding TCU vs Home Health. Pt and family choosing [facility] TCU at this time. Christy in TCU updated. Precert will be started when therapy is complete. Plan: TCU, pending precert YOAN Payan
[2021-08-21] MEDS: Metoprolol Tartrate 25 MG Tablet 12.5 MG PO (10:34)
[2021-08-21] MEDS: Pantoprazole Sodium 20 MG Tablet PO (10:34)
[2021-08-21] MEDS: Cholecalciferol (VIT D3) 25 MCG TABLET (1,000 UNITS) PO (10:35)
[2021-08-21] MEDS: Senna/Docusate Sodium 1 Tablet 2 TABLET PO ×2 (10:35→21:24)
--- NOTE | 2021-08-21 10:35 | PN.HOSP_ITS ---
Subjective Subjective Follow-up on left hip wound: Patient was seen and examined. She had irrigation and debridement of the left hip infected seroma yesterday. Postoperatively, patient said her pain was controlled. She denied any fever or chills. Objective Data Objective Data Vital Signs: Vital Signs Temp Pulse Resp BP Pulse Ox O2 Del Method O2 Flow Rate 98.7 F 60 16 105/54 L 95 Room Air 2 08/21/21 09:50 08/21/21 09:50 08/21/21 09:50 08/21/21 09:50 08/21/21 09:50 08/21/21 09:50 08/21/21 05:49 Oxygen Flow Rate (L/min) 2 Oxygen Delivery Method Room Air Weight: 81.9 kg Body Mass Index (BMI) 35.4 Intake & Output: Intake and Output for Last 24 Hours 08/19/21 08/20/21 08/21/21 23:59 23:59 23:59 Intake Total 1795 / 1795 450 / 450 765 / 765 Output Total 800 / 800 600 / 600 Balance 995 / 995 -150 / -150 765 / 765 Lab / Micro Data Result Diagrams: 08/21/21 06:55 08/21/21 Unknown Labs: Laboratory Results - last 24 hr 08/20/21 12:40: Blood Type O POSITIVE, Antibody Screen NEGATIVE 08/21/21 06:55: WBC 11.7 H, RBC 3.24 L, Hgb 9.6 L, Hct 31.7 L, MCV 97.8, MCH 29.6, MCHC 30.3 L, RDW Std Deviation 62.2 H, RDW Coeff of Leatha 17.2 H, Plt Count 190, MPV 11.0 08/21/21 : Sodium 139, Potassium 3.9, Chloride 106, Carbon Dioxide 22.0, Anion Gap 11, BUN 31 H, Creatinine 1.50 H, Estim Creat Clear Calc 36.10, Est GFR (MDRD) Af Amer 43 L, Est GFR (MDRD) Non-Af 35 L, BUN/Creatinine Ratio 20.7 H, Glucose 104, Calcium 8.5 Radiography Diagnostic Testing: Radiology Impression Hip X-Ray 08/20/21 21:30 IMPRESSION: Postsurgical change recent left hip arthroplasty without evidence of complication. Electronically Signed: Vicente Stacy DO at 22:51 EDT , Physical Exam Narrative Physical exam: General: Alert, Oriented x3, Cooperative, appears frail, HEENT: Atraumatic Oral: Moist Mucosa Neck: Supple Lungs: Diminished to auscultation Cardiovascular: HS I+II, regular, no murmurs Abdomen: Bowel Sounds Present, Soft, Non Tender Extremities: Left hip postop dressing intact, BECCA hoses on the legs Skin: No rashes, No breakdown Neurological: Grossly intact Psych/Mental Status: Appropriate Assessment & Plan Assessment/Plan (1) Cellulitis of hip, left: PLAN: Plan 1. POD #0, status post irrigation debridement of infected left hip seroma Patient has history of recent hip arthroplasty in April 2021 Intraoperative cultures are pending Orthopedics and ID consulted. Continue on IV vancomycin and Zosyn 2. Anemia, hemoglobin is 9.6, dropped from 11.4, likely postop/dilutional We will continue on oral iron and PPI 3. History of CAD status post CABG, status post stents, status post aortic valve replacement with bioprosthetic valve, hypertension, paroxysmal atrial fibrillation/chronic heart failure with reduced EF, not in acute exacerbation, Eliquis and Plavix have been resumed Will resume Lasix 20 mg p.o. twice daily 4. Hypertension, controlled, continue on metoprolol 5. Hypothyroidism, continue on Synthroid. 6. DVT PPx- SCDs -Eliquis on hold Charges/Coding Visit Charges Inpatient E&M: 44384 [facility] Hosp L2
[2021-08-21] MEDS: APIXABAN 2.5 MG TABLET PO ×2 (10:37→21:08)
--- NOTE | 2021-08-21 12:02 | WOUNDNOTE ---
wound photo: left hip
[2021-08-21] MEDS: Multivitamins,Ther W-Minerals Tablet 1 TABLET PO (12:39)
[2021-08-21] MEDS: Ferrous Sulfate 325 MG Tablet PO ×2 (12:39→17:48)
[2021-08-21] MEDS: Calcium (Elemental) 500 MG Tablet PO ×2 (12:40→17:48)
[2021-08-21] MEDS: Ascorbic Acid 500 MG Tablet PO ×2 (12:40→18:12)
[2021-08-21] MEDS: Furosemide 20 MG Tablet PO (17:48)
[2021-08-21] MEDS: MELATONIN 10 MG TABLET PO (21:31)
[2021-08-21 22:09] LABS: Vancomycin, Trough Level 33.6 ug/mL (5.0-15.0)
--- NOTE | 2021-08-21 23:10 | NURSING ---
PT RESTING QUIETLY IN BED WITH EYES CLOSED, RESP EASY
[2021-08-22] VITALS (10 sets, daily range): BP systolic 90–116; BP diastolic 37–61; PULSE 86–106; RESP 16–18; TEMP 36.7–37.7; O2SAT 89–97
[2021-08-22] MEDS: oxyCODONE 5 MG Tablet PO ×2 (02:18→14:49)
[2021-08-22] MEDS: Acetaminophen 325 MG Tablet 650 MG PO (05:28)
[2021-08-22] MEDS: Gabapentin 300 MG Capsule PO ×3 (05:28→22:06)
[2021-08-22] MEDS: Levothyroxine 125 MCG Tablet PO (05:28)
[2021-08-22] MEDS: Pantoprazole Sodium 20 MG Tablet PO (08:02)
[2021-08-22] MEDS: Ensure Surgery 237 ML LIQUID PO ×2 (08:03→12:37)
--- NOTE | 2021-08-22 09:52 | PCM.PN.HOSP ---
Subjective Subjective Follow-up on post-op medical management/left hip infected wound: Patient was seen and examined. She was tachycardic yesterday in the afternoon. Her metoprolol was increased to 25 mg twice a day. Blood pressure is relatively low. She denied any dizziness or chest pain or palpitations. Intraoperative wound cultures are pending. Objective Data Objective Data Vital Signs: Vital Signs Temp Pulse Resp BP Pulse Ox O2 Del Method O2 Flow Rate 98.1 F 95 18 101/57 L 97 Room Air 2 08/22/21 07:56 08/22/21 07:56 08/22/21 07:56 08/22/21 07:56 08/22/21 07:56 08/22/21 08:07 08/22/21 07:56 Oxygen Flow Rate (L/min) 2 Oxygen Delivery Method Room Air Weight: 81.9 kg Body Mass Index (BMI) 35.4 Intake & Output: Intake and Output for Last 24 Hours 08/20/21 08/21/21 08/22/21 23:59 23:59 23:59 Intake Total 450 / 450 1630 / 2070 780 / 780 Output Total 600 / 600 200 / 200 Balance -150 / -150 1630 / 1870 580 / 580 Lab / Micro Data Result Diagrams: 08/21/21 06:55 08/21/21 Unknown Labs: Laboratory Results - last 24 hr 08/21/21 21:30: Vancomycin Trough 33.6 H Micro: Microbiology 08/20/21 20:56 Tissue - Hip Gram Stain - Final 08/20/21 20:56 Tissue - Hip Wound Culture - Preliminary Gram negative mahsa 08/20/21 20:56 Tissue - Hip Gram Stain - Final 08/20/21 20:56 Tissue - Hip Wound Culture - Preliminary No growth-Final to follow 08/20/21 20:56 Tissue - Hip Gram Stain - Final 08/20/21 20:56 Tissue - Hip Wound Culture - Preliminary No growth-Final to follow 08/20/21 20:56 Tissue - Hip Gram Stain - Final 08/20/21 20:56 Tissue - Hip Wound Culture - Preliminary No growth-Final to follow 08/20/21 20:56 Tissue - Hip Gram Stain - Final 08/20/21 20:56 Tissue - Hip Wound Culture - Preliminary No growth-Final to follow Physical Exam Narrative Physical exam: General: Alert, Oriented x3, Cooperative, appears frail, HEENT: Atraumatic Oral: Moist Mucosa Neck: Supple Lungs: Diminished to auscultation Cardiovascular: HS I+II, regular, no murmurs Abdomen: Bowel Sounds Present, Soft, Non Tender Extremities: Left hip incisional wound vac in place, BECCA hoses on the legs Skin: No rashes, No breakdown Neurological: Grossly intact Psych/Mental Status: Appropriate Assessment & Plan Assessment/Plan (1) Cellulitis of hip, left: PLAN: Plan 1. POD #2, status post irrigation debridement of infected left hip seroma Patient has history of recent hip arthroplasty in April 2021 Intraoperative cultures are pending Orthopedics and ID consulted. Continue on IV vancomycin and Zosyn 2. Anemia, hemoglobin is 9.6, dropped from 11.4, likely postop/dilutional Continue on oral iron and PPI Follow-up with blood work in am 3. History of CAD status post CABG, status post stents, status post aortic valve replacement with bioprosthetic valve, hypertension, paroxysmal atrial fibrillation/chronic heart failure with reduced EF, not in acute exacerbation, Eliquis, Plavix and Lasix 4. Hypertension, controlled, continue on metoprolol 5. Hypothyroidism, continue on Synthroid. 6. DVT PPx- SCDs -Eliquis Charges/Coding Visit Charges Inpatient E&M: 54420 Subs Hosp L2
[2021-08-22] MEDS: Cholecalciferol (VIT D3) 25 MCG TABLET (1,000 UNITS) PO (10:45)
[2021-08-22] MEDS: Psyllium 1 PACKET PO (10:45)
[2021-08-22] MEDS: Clopidogrel Bisulfate 75 MG Tablet PO (10:45)
[2021-08-22] MEDS: Metolazone 2.5 MG Tablet PO (10:45)
[2021-08-22] MEDS: Metoprolol Tartrate 25 MG Tablet 12.5 MG PO ×2 (10:45→22:06)
[2021-08-22] MEDS: Furosemide 20 MG Tablet PO ×2 (10:45→17:13)
[2021-08-22] MEDS: Senna/Docusate Sodium 1 Tablet 2 TABLET PO ×2 (10:45→22:06)
[2021-08-22] MEDS: APIXABAN 2.5 MG TABLET PO ×2 (10:46→22:05)
--- NOTE | 2021-08-22 11:44 | PCM.PN.ORT ---
Subjective Subjective The patient was sitting in bedside chair upon examination. Patient denies any chest pain, shortness of breath, dizziness, lightheadedness, nausea or vomiting, or calf pain. Pain is controlled on medications. No adverse overnight events. Patient states the pain is well controlled on medications. She is currently followed by infectious disease and is on IV vancomycin and Zosyn. Plan is for patient to go to the transitional care unit when medically stable. She has been placed back on her Eliquis. Patient does have a wound VAC placed over the incision. No drainage in the canister and trace amount in the tubing. Objective Data Objective Data Vital Signs: Vital Signs Temp Pulse Resp BP Pulse Ox O2 Del Method O2 Flow Rate 98.1 F 95 18 101/57 L 97 Room Air 2 08/22/21 07:56 08/22/21 10:45 08/22/21 07:56 08/22/21 07:56 08/22/21 07:56 08/22/21 08:07 08/22/21 07:56 Oxygen Flow Rate (L/min) 2 Oxygen Delivery Method Room Air Weight: 81.9 kg Body Mass Index (BMI) 35.4 Intake & Output: Intake and Output for Last 24 Hours 08/20/21 08/21/21 08/22/21 23:59 23:59 23:59 Intake Total 450 / 450 1630 / 2070 780 / 780 Output Total 600 / 600 200 / 200 Balance -150 / -150 1630 / 1870 580 / 580 Lab / Micro Data Result Diagrams: 08/21/21 06:55 08/21/21 Unknown Labs: Laboratory Results - last 24 hr 08/21/21 21:30: Vancomycin Trough 33.6 H Micro: Microbiology 08/20/21 20:56 Tissue - Hip Gram Stain - Final 08/20/21 20:56 Tissue - Hip Wound Culture - Preliminary Gram negative mahsa 08/20/21 20:56 Tissue - Hip Gram Stain - Final 08/20/21 20:56 Tissue - Hip Wound Culture - Preliminary No growth-Final to follow 08/20/21 20:56 Tissue - Hip Gram Stain - Final 08/20/21 20:56 Tissue - Hip Wound Culture - Preliminary No growth-Final to follow 08/20/21 20:56 Tissue - Hip Gram Stain - Final 08/20/21 20:56 Tissue - Hip Wound Culture - Preliminary No growth-Final to follow 08/20/21 20:56 Tissue - Hip Gram Stain - Final 08/20/21 20:56 Tissue - Hip Wound Culture - Preliminary No growth-Final to follow Physical Exam Narrative Vital signs stable and afebrile. Left thigh is soft and supple SCDs and BECCA hose are in place bilaterally Wound VAC currently over incision with no drainage in the canister and trace amount in the tubing Patient is able to plantarflex and dorsiflex actively. Sensation is intact to light touch to saphenous, sural, superficial and deep peroneal, and tibial distribution. Dressing is clean dry and intact. Negative Homans bilaterally, negative signs and symptoms of DVT. Const alert, oriented x3 and no apparent distress General Appearance: cooperative and comfortable HEENT normocephalic Eyes PERRL Neck No nuchal rigidity Resp normal respiratory effort Cardio no JVD GI non-distended Extremity Extremity Narrative: Left lower extremity: Leg lengths are equal on palpation of medial malleoli. Patient has a dime sized area of ulceration with purulent drainage on her overlying dressing on the left hip posterior to the incision. The incision itself appears to be well-healed. There is foul-smelling odor from the dressing. Neurovascular intact distally. No pain with hip internal or external rotation/logroll motion. Skin Skin Narrative: Dime size area of necrosis with purulent drainage over the left posterior hip. Neuro CN's II-XII intact bilaterally Psych mental status grossly normal Assessment & Plan Assessment/Plan (1) History of revision of total replacement of left hip joint: PLAN: 1. S/P irrigation debridement of left hip infected seroma and excision sinus tract left hip with left hip irrigation debridement and complete synovectomy and revision femoral and acetabular components POD #2 2. Continue Pain Medications: Tylenol and oxycodone 3. DVT Prophylaxis: Patient has resumed her Eliquis 4. PT/OT: Weightbearing as tolerated. Patient has a Rollator walker in her room. I did recommend regular walker postoperatively. She will also need to follow posterior hip dislocation precautions for 3 months postoperatively. 5. H & H: No current CBC today, patient is currently asymptomatic. Postoperative anemia secondary to acute blood loss from surgery without any intra operative complications. 6. Encouraged Incentive Spirometry 7. Continue postoperative medical treatment per medicine 8. Continue antibiotics per infectious disease: Cultures were reviewed and 1 culture involving the deep space sinus tract did grow out gram-negative mahsa. The deep space sinus tract was deep to the skin but superficial to the fascia. Cultures involving the hip joint have been with no growth. Currently on Zosyn and vancomycin. Patient will require 6 weeks IV antibiotics. Consider chronic suppression and will await infectious disease final recommendations. Continue with recommendations from infectious disease for antibiotics. 9. Incision/dressing: Wound VAC is currently in place and there is no drainage in the canister and only trace amount in the tubing. Continue with wound VAC for 10 days postoperatively and should be changed twice weekly. Continuous setting at 75 mmHg. 10. Disposition: Patient is orthopedically stable. At this point orthopedics will sign off. From an orthopedic standpoint patient will be weightbearing as tolerated with regular walker. She will need to continue postoperative posterior dislocation precautions for 3 months postoperatively. Continue with the wound VAC for 10 days postoperatively with changes twice weekly. Follow above recommendations. Patient will continue with the Eliquis which will cover her for DVT prophylaxis from an orthopedic standpoint. Continue with Tylenol and oxycodone for breakthrough pain. She will require 2-week postoperative follow-up with [facility] for x-rays and suture removal. Please contact orthopedics with any concerns or questions. Appreciate consultation and assistance with managing patient while in the hospital. I have reviewed the [place] Automated Rx Reporting System (OARRS) report for this patient for refill pattern and other prescriber involvement as part of the appropriate surveillance for the provision of acute and chronic controlled medications. The report was requested and reviewed on the date of this entry and was considered in the prescribing process. This dictation was created using voice recognition software. Phonetic and/or grammatical errors may exist.
[2021-08-22] MEDS: Ascorbic Acid 500 MG Tablet PO ×2 (12:37→17:13)
[2021-08-22] MEDS: Ferrous Sulfate 325 MG Tablet PO ×2 (12:37→17:13)
[2021-08-22] MEDS: Multivitamins,Ther W-Minerals Tablet 1 TABLET PO (12:37)
[2021-08-22] MEDS: Calcium (Elemental) 500 MG Tablet PO ×2 (12:37→17:13)
--- NOTE | 2021-08-22 22:03 | NURSING ---
placed on O2 2L NC
[2021-08-22] MEDS: MELATONIN 10 MG TABLET PO (22:06)
[2021-08-22 22:47] LABS: Vancomycin, Trough Level 25.4 ug/mL (5.0-15.0)
[2021-08-23] VITALS (9 sets, daily range): BP systolic 94–139; BP diastolic 39–63; PULSE 86–114; RESP 16–20; TEMP 36.6–37.3; O2SAT 90–97
--- NOTE | 2021-08-23 | PCM.RX.CS ---
Consult Pharmacy has been consulted to manage selected antiobiotic: Vancomycin Type of Consult: Follow-up Prior Doses of Antibiotics Received/Current Regimen: Medications Discontinued Medications Vancomycin HCl 750 mg/ Sodium (Chloride) 265 mls @ 250 mls/hr IV Q24H SUSAN Last Admin: 08/22/21 23:39 Dose: Infused Labs: Sodium 139 mmol/L (136-145) 08/21/21 Unknown Potassium 3.9 mmol/L (3.5-5.1) 08/21/21 Unknown Chloride 106 mmol/L (98-107) 08/21/21 Unknown Carbon Dioxide 22.0 mmol/L (21.0-32.0) 08/21/21 Unknown Anion Gap 11 (5-15) 08/21/21 Unknown BUN 31 mg/dL (7-18) H 08/21/21 Unknown Creatinine 1.50 mg/dL (0.55-1.02) H 08/21/21 Unknown Est GFR (MDRD) Af Amer 43 mL/min (>60) L 08/21/21 Unknown Est GFR (MDRD) Non-Af 35 mL/min (>60) L 08/21/21 Unknown BUN/Creatinine Ratio 20.7 RATIO (10-20) H 08/21/21 Unknown Glucose 104 mg/dL (74-106) 08/21/21 Unknown Vancomycin Trough 25.4 ug/mL (5.0-15.0) H 08/22/21 21:20 Microbiology: Microbiology 08/20/21 20:56 Tissue - Hip Gram Stain - Final 08/20/21 20:56 Tissue - Hip Wound Culture - Preliminary Gram negative mahsa 08/20/21 20:56 Tissue - Hip Gram Stain - Final 08/20/21 20:56 Tissue - Hip Wound Culture - Preliminary No growth-Final to follow 08/20/21 20:56 Tissue - Hip Gram Stain - Final 08/20/21 20:56 Tissue - Hip Wound Culture - Preliminary No growth-Final to follow 08/20/21 20:56 Tissue - Hip Gram Stain - Final 08/20/21 20:56 Tissue - Hip Wound Culture - Preliminary No growth-Final to follow 08/20/21 20:56 Tissue - Hip Gram Stain - Final 08/20/21 20:56 Tissue - Hip Wound Culture - Preliminary No growth-Final to follow Weight used for dosin.9 kg Estimated Creatinine Clearance: 26.3 Goal Trough: 15-20 mcg/mL Pharmacy Plan for Drug Dosing: Vancomycin trough level was high at 25.4. Current dosing will be halted. Another level will be drawn in 24 hours, and further dosing determined from that result. Pharmacy Service will continue to monitor and adjust dosing as required. Follow-Up Labs: Trough Vancomycin - random Labs to be done on [date and time ordered]: 08/23/21 @8146
[2021-08-23] MEDS: Levothyroxine 125 MCG Tablet PO (05:34)
[2021-08-23] MEDS: Gabapentin 300 MG Capsule PO ×3 (05:34→22:56)
[2021-08-23] MEDS: Acetaminophen 325 MG Tablet 650 MG PO (06:05)
[2021-08-23] MEDS: oxyCODONE 5 MG Tablet PO (06:06)
--- NOTE | 2021-08-23 06:17 | NURSING ---
PT BLADDER SCANNED = 337ML. ST CATH PER ORDER = 300ML. PT TOLERATED WELL.
[2021-08-23 06:28] LABS: Absolute Lymphocyte Count 0.62 X10^3/uL (0.83-4.51); Absolute Neutrophil Count 8.4 X10^3/uL (2.0-7.7); Basophil# 0.03 X10^3/uL; Basophil% 0.3 % (0-1); Eosinophil# 0.32 X10^3/uL; Eosinophils% 2.9 % (0-5); Hematocrit 27.6 % (37-47); Hemoglobin 8.5 g/dL (12.0-15.0); Lymphocyte # 0.62 X10^3/ul (0.83-4.51); Lymphocyte % 5.7 % (19-41); Mean Corp Hgb Conc 30.8 g/dL (32-36); Mean Corpuscular Hgb 29.6 pg (27.0-32.0); Mean Corpuscular Volume 96.2 fL (81-99); Mean Platelet Vol. 11.1 fl (6.2-12.0); Monocyte# 1.46 X10^3/uL; Monocyte% 13.3 % (0-10); NRBC Flagged by Analyzer 0.3 % (0-5); Neutrophil # 8.42 X10^3/uL (2.7-7.7); Neutrophil % 76.7 % (47-70); Platelet Count 202 K/mm3 (150-450); RBC Distribution Width CV 17.9 % (11.6-14.6); RBC Distribution Width SD 61.9 fl (35.1-43.9); Red Blood Count 2.87 M/mm3 (4.2-5.4)
--- NOTE | 2021-08-23 06:30 | NURSING ---
DR BAUM NOTIFIED OF PT LOW UOP & NEED FOR ST CATH THIS AM. URINE FOUL SMELLING. NEW ORDER RECEIVED.
[2021-08-23 06:38] LABS: Mucous, Urine 0 SEEN /hpf (<or=2+); Red Blood Cells-Urine 0 SEEN /hpf (0-5); Squamous Epithelial Cells - UA 0 SEEN /hpf (5-10)
[2021-08-23 06:43] LABS: Color, Urine Yellow (Yellow); Glucose, Dipstick Normal (Normal); Ketone-Dipstick 5 mg/dl (Negative); Leukocyte Esterase-Dipstick 25 /ul (Negative); Nitrite-Dipstick Negative (Negative); Occult Blood-Urine Negative /ul (Negative); Protein-Dipstick 15 mg/dl (Negative); Specific Gravity, Urine 1.015 (1.002-1.030); Urine Bilirubin Dipstick Negative (Negative); Urine Clarity Clear (Clear); Urine Urobilinogen Normal (Normal)
[2021-08-23 06:57] LABS: ALB/GLOB Ratio 0.6 RATIO (0.9-2.4); AST(SGOT) 18 U/L (15-37); Alanine Aminotransfer ALT/SGPT 11 U/L (13-56); Albumin, Serum 2.2 g/dL (3.2-5.0); Alkaline Phosphatase 163 U/L (45-117); Anion Gap 9 (5-15); BUN 51 mg/dL (7-18); BUN/Creat Ratio 23.5 RATIO (10-20); Calcium,Total 8.5 mg/dL (8.5-10.1); Chloride 103 mmol/L (98-107); Creatinine, Serum 2.17 mg/dL (0.55-1.02); EST Glomerular Filtration Rate 23 mL/min (>60); Est Glom Filt Rate - Afr Amer 28 mL/min (>60); Estimated Creatinine Clearance 24.95 ml/min; Globulin 3.9 g/dL (2.2-4.2); Glucose 125 mg/dL (74-106); Potassium 3.9 mmol/L (3.5-5.1); Protein, Total 6.1 g/dL (6.4-8.2); Sodium Level 136 mmol/L (136-145)
[2021-08-23 06:59] LABS: Bacteria RARE /hpf (None Seen); White Blood Cells 0-5 SEEN /hpf (0-5)
--- NOTE | 2021-08-23 08:09 | PCM.PN.HOSP ---
Subjective Subjective Follow-up on post-op medical management/left hip infected wound: Patient was seen and examined. Patient complains of feeling slightly nauseous. She is slightly tachycardic. Hemoglobin appears to have dropped. Stool for occult blood is positive Objective Data Objective Data Vital Signs: Vital Signs Temp Pulse Resp BP Pulse Ox O2 Del Method O2 Flow Rate 99.2 F H 114 H 18 110/52 L 96 Nasal Cannula 2 08/23/21 03:55 08/23/21 03:55 08/23/21 03:55 08/23/21 03:55 08/23/21 07:09 08/23/21 07:09 08/23/21 07:09 Oxygen Flow Rate (L/min) 2 Oxygen Delivery Method Nasal Cannula Weight: 81.9 kg Body Mass Index (BMI) 35.4 Intake & Output: Intake and Output for Last 24 Hours 08/21/21 08/22/21 08/23/21 23:59 23:59 23:59 Intake Total 1630 / 2070 3245 / 3305 230 / 230 Output Total 200 / 350 450 / 450 Balance 1630 / 1870 3045 / 2955 -220 / -220 Lab / Micro Data Result Diagrams: 08/23/21 06:03 08/23/21 06:03 Labs: Laboratory Results - last 24 hr 08/22/21 21:20: Vancomycin Trough 25.4 H 08/23/21 06:03: WBC 11.0, RBC 2.87 L, Hgb 8.5 L, Hct 27.6 L, MCV 96.2, MCH 29.6, MCHC 30.8 L, RDW Std Deviation 61.9 H, RDW Coeff of [place] 17.9 H, Plt Count 202, MPV 11.1, Immature Gran % (Auto) 1.100 H, Neut % (Auto) 76.7 H, Lymph % (Auto) 5.7 L, [place] % (Auto) 13.3 H, Eos % (Auto) 2.9, Baso % (Auto) 0.3, Absolute Neuts (auto) 8.4 H, Absolute Lymphs (auto) 0.62 L, Nucleated RBC % 0.3 08/23/21 06:03: Sodium 136, Potassium 3.9, Chloride 103, Carbon Dioxide 24.0, Anion Gap 9, BUN 51 H, Creatinine 2.17 H, Estim Creat Clear Calc 24.95, Est GFR (MDRD) Af Amer 28 L, Est GFR (MDRD) Non-Af 23 L, BUN/Creatinine Ratio 23.5 H, Glucose 125 H, Calcium 8.5, Total Bilirubin 1.10 H, AST 18, ALT 11 L, Alkaline Phosphatase 163 H, Total Protein 6.1 L, Albumin 2.2 L, Globulin 3.9, Albumin/Globulin Ratio 0.6 L 08/23/21 06:25: Urine Color Yellow, Urine Clarity Clear, Urine pH 5.0, Ur Specific [place] 1.015, Urine Protein 15 H, Urine Glucose (UA) Normal, Urine Ketones 5 H, Urine Occult Blood Negative, Urine Nitrite Negative, Urine Bilirubin Negative, Urine Urobilinogen Normal, Ur Leukocyte Esterase 25 H, Urine RBC 0 SEEN, Urine WBC 0-5 SEEN, Ur Squamous Epith Cells 0 SEEN, Urine Bacteria RARE, Urine Mucus 0 SEEN Micro: Microbiology 08/20/21 20:56 Tissue - Hip Gram Stain - Final 08/20/21 20:56 Tissue - Hip Wound Culture - Final Proteus mirabilis 08/20/21 20:56 Tissue - Hip Gram Stain - Final 08/20/21 20:56 Tissue - Hip Wound Culture - Preliminary No growth-Final to follow 08/20/21 20:56 Tissue - Hip Gram Stain - Final 08/20/21 20:56 Tissue - Hip Wound Culture - Preliminary No growth-Final to follow 08/20/21 20:56 Tissue - Hip Gram Stain - Final 08/20/21 20:56 Tissue - Hip Wound Culture - Preliminary No growth-Final to follow 08/20/21 20:56 Tissue - Hip Gram Stain - Final 08/20/21 20:56 Tissue - Hip Wound Culture - Preliminary No growth-Final to follow Physical Exam Narrative Physical exam: General: Alert, Oriented x3, Cooperative, appears frail, on 2 L of oxygen HEENT: Atraumatic Oral: Moist Mucosa Neck: Supple Lungs: Diminished to auscultation Cardiovascular: HS I+II, tachycardia, no murmurs Abdomen: Bowel Sounds Present, Soft, Non Tender Extremities: Left hip incisional wound vac in place, BECCA hoses on the legs Skin: No rashes, No breakdown Neurological: Grossly intact Psych/Mental Status: Appropriate Assessment & Plan Assessment/Plan (1) Cellulitis of hip, left: PLAN: Plan 1. POD #3, status post irrigation debridement of infected left hip seroma Patient has history of recent hip arthroplasty in April 2021 Intraoperative cultures are pending Orthopedics and ID consulted. Continue on IV vancomycin and Zosyn 2. Anemia likely postop/acute GI bleed Hemoglobin is 8.5, down from 11.4 on admission Continue on oral iron and PPI Follow-up with blood work in am GI consult 3. 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 History of CAD status post CABG, status post stents, status post aortic valve replacement with bioprosthetic valve, hypertension, paroxysmal atrial fibrillation/chronic heart failure with reduced EF, not in acute exacerbation, Eliquis, Plavix and Lasix 5. Hypertension, controlled, continue on metoprolol 6. Hypothyroidism, continue on Synthroid. 7. DVT PPx- SCDs -Eliquis Charges/Coding Visit Charges Inpatient E&M: 25538 Subs Hosp L2
[2021-08-23] MEDS: Pantoprazole Sodium 20 MG Tablet PO (08:23)
[2021-08-23] MEDS: Ensure Surgery 237 ML LIQUID PO ×3 (08:23→17:31)
[2021-08-23] MEDS: Furosemide 20 MG/2 ML VIAL IV (11:01)
[2021-08-23] MEDS: Metoprolol Tartrate 25 MG Tablet PO ×2 (11:01→22:58)
[2021-08-23] MEDS: Furosemide 20 MG Tablet PO ×2 (11:01→17:31)
[2021-08-23] MEDS: 0.9% Saline Lock 10 ML Syringe IV (11:01)
[2021-08-23] MEDS: Cholecalciferol (VIT D3) 25 MCG TABLET (1,000 UNITS) PO (11:01)
[2021-08-23] MEDS: Clopidogrel Bisulfate 75 MG Tablet PO (11:01)
[2021-08-23] MEDS: APIXABAN 2.5 MG TABLET PO (11:01)
[2021-08-23] MEDS: Multivitamins,Ther W-Minerals Tablet 1 TABLET PO (11:55)
[2021-08-23] MEDS: Calcium (Elemental) 500 MG Tablet PO ×2 (11:55→17:31)
[2021-08-23] MEDS: Ferrous Sulfate 325 MG Tablet PO ×2 (11:55→17:31)
[2021-08-23] MEDS: Ascorbic Acid 500 MG Tablet PO ×2 (13:16→17:31)
--- NOTE | 2021-08-23 18:18 | PCM.CONS.GEN ---
HPI Consult Data Date of Consult: 08/23/21 HPI Narrative Reason for Consultation: Anemia HPI Narrative: GALILEO HUSTON, is a 86 F who presents [facility] Medical History Acquired hypothyroidism Acute kidney injury Acute kidney injury superimposed on CKD Anemia Anxiety and depression Atherosclerosis of coronary artery of [place] heart without angina pectoris Chronic combined systolic and diastolic CHF (congestive heart failure) Chronic kidney disease, stage 3 COVID-19 virus detected (02/29/20) Elevated serum globulin level Esophagitis Essential hypertension Fracture of femoral neck, left, closed HFrEF (heart failure with reduced ejection fraction) Hiatal hernia High cholesterol History of non-ST elevation myocardial infarction (NSTEMI) (04/2020) History of stress test Insomnia Irritable bowel Ischemic cardiomyopathy Left atrial enlargement Nonrheumatic aortic (valve) stenosis Obesity (BMI 30-39.9) Orthopedic aftercare Paroxysmal atrial fibrillation Post-menopausal PUD (peptic ulcer disease) Restless legs Sciatica Secondary pulmonary arterial hypertension Takotsubo cardiomyopathy Ulcer Home Medications nitroglycerin 0.4 mg sublingual tablet 0.4 mg sublingual Q5M PRN Chest Pain 02/24/16 [History Last Taken 06/30/17] levothyroxine 125 mcg tablet 125 mcg PO DAILY thyroid #30 tabs 11/14/18 [History Last Taken 08/18/21] acetaminophen 325 mg tablet 650 mg PO Q6H PRN PRN Pain 1-10 Or Fever 05/13/20 [Rx Last Taken 1 Week Ago ~08/11/21] omeprazole 20 mg capsule,delayed release 20 mg PO DIRECTED gerd 07/28/20 [History Last Taken 08/18/21] clopidogrel 75 mg tablet 75 mg PO DAILY blood thinner #90 tabs 08/04/20 [Rx Last Taken 08/17/21] apixaban 5 mg tablet 2.5 mg PO BID blood thinner 08/21/20 [History Last Taken 08/18/21] geriatric nuwakkcu-rsqi-iqna 1 tab PO DAILY supplement 08/21/20 [History Last Taken 08/18/21] oxycodone 5 mg tablet 5 mg PO Q4H PRN Pain 08/21/20 [History Last Taken 08/18/21] gabapentin 300 mg capsule 300 mg PO TID nerve pain 05/25/21 [History Last Taken 08/18/21] ferrous sulfate 325 mg (65 mg iron) tablet 325 mg PO BID supplement 05/26/21 [History Last Taken 08/18/21] furosemide 40 mg tablet See Rx Instructions PO .COMPLEX water pill #30 tabs 07/21/21 [Rx Last Taken 08/18/21] ascorbic acid (vitamin C) 500 mg tablet 500 mg PO BID supplement 08/18/21 [History Last Taken 08/18/21] calcium carbonate 500 mg calcium (1,250 mg) tablet 500 mg PO BIDCM supplement 08/18/21 [History Last Taken 08/18/21] cholecalciferol (vitamin D3) 25 mcg (1,000 unit) tablet 1,000 unit PO DAILY supplement 08/18/21 [History Last Taken 08/18/21] metolazone 2.5 mg tablet 2.5 mg PO 2XW weight gain 08/18/21 [History Last Taken 08/18/21] metoprolol tartrate 25 mg tablet 12.5 mg PO BID bp 08/18/21 [History Last Taken 08/18/21] psyllium husk (aspartame) 3.4 gram oral powder packet 1 packet PO DAILY constipation 08/18/21 [History Last Taken 08/14/21] sennosides 8.6 mg-docusate sodium 50 mg tablet 2 tablet PO BID stool softener 08/18/21 [History Last Taken 08/18/21] Allergy/AdvReac Type Severity Reaction Status Date / Time atorvastatin [From Lipitor] AdvReac Pain in Verified 08/18/21 15:02 joints niacin AdvReac Pain in Verified 08/18/21 15:02 joints pregabalin [From Lyrica] AdvReac leg pain Verified 08/18/21 15:02 simvastatin [From Zocor] AdvReac Pain in Verified 08/18/21 15:02 joints Family History Mother Diabetes Heart disease Other CAD (coronary artery disease) Surgical History H/O cardiac catheterization H/O coronary artery bypass surgery (01/2016) History of aortic valve replacement with bioprosthetic valve (01/2016) History of arthroplasty of left hip (04/21/21) History of cardioversion (12/24/19) History of coronary artery stent placement (2014) Social History household members: family Smoking Status: Never smoker alcohol intake: never substance use type: does not use caffeine: No Lab / Micro Data Result Diagrams: 08/23/21 06:03 08/23/21 06:03 Labs: Laboratory Results - last 24 hr 08/20/21 12:40: Crossmatch See Detail 08/22/21 21:20: Vancomycin Trough 25.4 H 08/23/21 06:03: WBC 11.0, RBC 2.87 L, Hgb 8.5 L, Hct 27.6 L, MCV 96.2, MCH 29.6, MCHC 30.8 L, RDW Std Deviation 61.9 H, RDW Coeff of [place] 17.9 H, Plt Count 202, MPV 11.1, Immature Gran % (Auto) 1.100 H, Neut % (Auto) 76.7 H, Lymph % (Auto) 5.7 L, [place] % (Auto) 13.3 H, Eos % (Auto) 2.9, Baso % (Auto) 0.3, Absolute Neuts (auto) 8.4 H, Absolute Lymphs (auto) 0.62 L, Nucleated RBC % 0.3 08/23/21 06:03: Sodium 136, Potassium 3.9, Chloride 103, Carbon Dioxide 24.0, Anion Gap 9, BUN 51 H, Creatinine 2.17 H, Estim Creat Clear Calc 24.95, Est GFR (MDRD) Af Amer 28 L, Est GFR (MDRD) Non-Af 23 L, BUN/Creatinine Ratio 23.5 H, Glucose 125 H, Calcium 8.5, Total Bilirubin 1.10 H, AST 18, ALT 11 L, Alkaline Phosphatase 163 H, Total Protein 6.1 L, Albumin 2.2 L, Globulin 3.9, Albumin/Globulin Ratio 0.6 L 08/23/21 06:25: Urine Color Yellow, Urine Clarity Clear, Urine pH 5.0, Ur Specific [place] 1.015, Urine Protein 15 H, Urine Glucose (UA) Normal, Urine Ketones 5 H, Urine Occult Blood Negative, Urine Nitrite Negative, Urine Bilirubin Negative, Urine Urobilinogen Normal, Ur Leukocyte Esterase 25 H, Urine RBC 0 SEEN, Urine WBC 0-5 SEEN, Ur Squamous Epith Cells 0 SEEN, Urine Bacteria RARE, Urine Mucus 0 SEEN Micro: Microbiology 08/20/21 20:56 Tissue - Hip Gram Stain - Final 08/20/21 20:56 Tissue - Hip Wound Culture - Final Proteus mirabilis 08/20/21 20:56 Tissue - Hip Anaerobic Culture - Preliminary 08/20/21 20:56 Tissue - Hip Gram Stain - Final 08/20/21 20:56 Tissue - Hip Wound Culture - Preliminary No growth-Final to follow 08/20/21 20:56 Tissue - Hip Anaerobic Culture - Preliminary No growth in 48 hours. 08/20/21 20:56 Tissue - Hip Gram Stain - Final 08/20/21 20:56 Tissue - Hip Wound Culture - Preliminary No growth-Final to follow 08/20/21 20:56 Tissue - Hip Anaerobic Culture - Preliminary No growth in 48 hours. 08/20/21 20:56 Tissue - Hip Gram Stain - Final 08/20/21 20:56 Tissue - Hip Wound Culture - Preliminary No growth-Final to follow 08/20/21 20:56 Tissue - Hip Anaerobic Culture - Preliminary No growth in 48 hours. 08/20/21 20:56 Tissue - Hip Gram Stain - Final 08/20/21 20:56 Tissue - Hip Wound Culture - Preliminary No growth-Final to follow 08/20/21 20:56 Tissue - Hip Anaerobic Culture - Preliminary No growth in 48 hours. 08/23/21 09:52 Stool Stool Occult Blood (ALYCE) - Final Occult Blood Positive
--- NOTE | 2021-08-23 18:35 | PCM.CONS.GEN ---
Assessment & Plan Assessment/Plan (1) Anemia: PLAN: Differential diagnosis for acute GI blood loss with heme positive stools in the setting of chronic anemia would be, atrophic gastritis, H. pylori associated gastritis, gastric ulcer, duodenal ulcer, AVM, less likely malignancy. I think she would benefit from an upper endoscopy and possible colonoscopy. At this time I do not think she can prep due to her recent orthopedic surgery. I think she would also benefit from an upper endoscopy due to the fact that she cannot eat and she has been complaining of a lot of nausea which increases her risk of peptic ulcer disease due to malnutrition, anticoagulation and recent stress from surgery and a infected hip. HPI Consult Data Date of Consult: 08/23/21 HPI Narrative HPI Narrative: GALILEO HUSTON, is a 86 F who presented to the ED with fatigue weakness and left hip pain. She was discovered to have an infection in her hip and is status postdebridement. She also has a history of chronic kidney disease stage IIIb, CAD, paroxysmal atrial fibrillation, history of aortic valve replacement with bioprosthetic valve on Eliquis 5 mg twice daily. I was consulted to see her due to worsening anemia. Patient has been having intermittent loose stools and is on iron therapy. She also has anemia chronic disease likely secondary to CKD. She is she also takes vitamin C twice a day, ferrous sulfate 325 mg p.o. twice daily. She is not having any abdominal pain but has been very nauseous and not able to eat much. FOR[facility]LY [facility] Medical History Acquired hypothyroidism Acute kidney injury Acute kidney injury superimposed on CKD Anemia Anxiety and depression Atherosclerosis of coronary artery of [place] heart without angina pectoris Chronic combined systolic and diastolic CHF (congestive heart failure) Chronic kidney disease, stage 3 COVID-19 virus detected (02/29/20) Elevated serum globulin level Esophagitis Essential hypertension Fracture of femoral neck, left, closed HFrEF (heart failure with reduced ejection fraction) Hiatal hernia High cholesterol History of non-ST elevation myocardial infarction (NSTEMI) (04/2020) History of stress test Insomnia Irritable bowel Ischemic cardiomyopathy Left atrial enlargement Nonrheumatic aortic (valve) stenosis Obesity (BMI 30-39.9) Orthopedic aftercare Paroxysmal atrial fibrillation Post-menopausal PUD (peptic ulcer disease) Restless legs Sciatica Secondary pulmonary arterial hypertension Takotsubo cardiomyopathy Ulcer Home Medications nitroglycerin 0.4 mg sublingual tablet 0.4 mg sublingual Q5M PRN Chest Pain 02/24/16 [History Last Taken 06/30/17] levothyroxine 125 mcg tablet 125 mcg PO DAILY thyroid #30 tabs 11/14/18 [History Last Taken 08/18/21] acetaminophen 325 mg tablet 650 mg PO Q6H PRN PRN Pain 1-10 Or Fever 05/13/20 [Rx Last Taken 1 Week Ago ~08/11/21] omeprazole 20 mg capsule,delayed release 20 mg PO DIRECTED gerd 07/28/20 [History Last Taken 08/18/21] clopidogrel 75 mg tablet 75 mg PO DAILY blood thinner #90 tabs 08/04/20 [Rx Last Taken 08/17/21] apixaban 5 mg tablet 2.5 mg PO BID blood thinner 08/21/20 [History Last Taken 08/18/21] geriatric iwitswdq-nbqz-[id number] 1 tab PO DAILY supplement 08/21/20 [History Last Taken 08/18/21] oxycodone 5 mg tablet 5 mg PO Q4H PRN Pain 08/21/20 [History Last Taken 08/18/21] gabapentin 300 mg capsule 300 mg PO TID nerve pain 05/25/21 [History Last Taken 08/18/21] ferrous sulfate 325 mg (65 mg iron) tablet 325 mg PO BID supplement 05/26/21 [History Last Taken 08/18/21] furosemide 40 mg tablet See Rx Instructions PO .COMPLEX water pill #30 tabs 07/21/21 [Rx Last Taken 08/18/21] ascorbic acid (vitamin C) 500 mg tablet 500 mg PO BID supplement 08/18/21 [History Last Taken 08/18/21] calcium carbonate 500 mg calcium (1,250 mg) tablet 500 mg PO BIDCM supplement 08/18/21 [History Last Taken 08/18/21] cholecalciferol (vitamin D3) 25 mcg (1,000 unit) tablet 1,000 unit PO DAILY supplement 08/18/21 [History Last Taken 08/18/21] metolazone 2.5 mg tablet 2.5 mg PO 2XW weight gain 08/18/21 [History Last Taken 08/18/21] metoprolol tartrate 25 mg tablet 12.5 mg PO BID bp 08/18/21 [History Last Taken 08/18/21] psyllium husk (aspartame) 3.4 gram oral powder packet 1 packet PO DAILY constipation 08/18/21 [History Last Taken 08/14/21] sennosides 8.6 mg-docusate sodium 50 mg tablet 2 tablet PO BID stool softener 08/18/21 [History Last Taken 08/18/21] Allergy/AdvReac Type Severity Reaction Status Date / Time atorvastatin [From Lipitor] AdvReac Pain in Verified 08/18/21 15:02 joints niacin AdvReac Pain in Verified 08/18/21 15:02 joints pregabalin [From Lyrica] AdvReac leg pain Verified 08/18/21 15:02 simvastatin [From Zocor] AdvReac Pain in Verified 08/18/21 15:02 joints Family History Mother Diabetes Heart disease Other CAD (coronary artery disease) Surgical History H/O cardiac catheterization H/O coronary artery bypass surgery (01/2016) History of aortic valve replacement with bioprosthetic valve (01/2016) History of arthroplasty of left hip (04/21/21) History of cardioversion (12/24/19) History of coronary artery stent placement (2014) Social History household members: family Smoking Status: Never smoker alcohol intake: never substance use type: does not use caffeine: No ROS Review of Systems ROS Unobtainable: other Constitutional Constitutional: Denies fatigue, fever(s), poor appetite, weight gain or weight loss ENT HEENT: Denies mouth lesions Cardiovascular Cardiovascular: Denies abdominal bloating, abdominal edema or abdominal pain Respiratory/Chest Respiratory/Chest: Denies change in mental status, change in phlegm color, chest congestion or chest tightness Gastrointestinal Gastrointestinal: Denies belching, bloating, change in bowel habits, change in stool character, chewing difficulty, coffee ground emesis, constipation, cramping, diarrhea, dyspepsia, dysphagia, early satiety, excessive flatus, fecal incontinence, heartburn, hematemesis, hematochezia, hemorrhoids, loose stools, melena, nausea, odynophagia, rectal bleeding, tenesmus, vomiting or weight changes Genitourinary Genitourinary: Denies abdominal discomfort, burning urination or itching Musculoskeletal Musculoskeletal: Reports as per HPI; Denies muscle weakness or myalgias Integumentary Integumentary: Denies jaundice Neurologic Neurologic: Denies lack of coordination or weakness Psychiatric Psychiatric: Denies confusion, depression, memory loss, mood swings, paranoia or suicidal ideation Endocrine Endocrinology: Denies systems reviewed and no addt'l complaints, except as documented Hematologic/Lymphatic Hematologic/Lymphatic: Denies anemia, easy bleeding, easy bruising or lymphadenopathy Allergic/Immunologic Allergic/Immunologic: Denies systems reviewed and no addt'l complaints, except as documented Physical Exam Narrative Physical exam: General: Alert, Oriented x3, Cooperative, appears frail, on 2 L of oxygen HEENT: Atraumatic Oral: Moist Mucosa Neck: Supple Lungs: Diminished to auscultation Cardiovascular: HS I+II, tachycardia, no murmurs Abdomen: Bowel Sounds Present, Soft, Non Tender Extremities: Left hip incisional wound vac in place, BECCA hoses on the legs Skin: No rashes, No breakdown Neurological: Grossly intact Psych/Mental Status: Appropriate Lab / Micro Data Result Diagrams: 08/23/21 06:03 08/23/21 06:03 Labs: Laboratory Results - last 24 hr 08/20/21 12:40: Crossmatch See Detail 08/22/21 21:20: Vancomycin Trough 25.4 H 08/23/21 06:03: WBC 11.0, RBC 2.87 L, Hgb 8.5 L, Hct 27.6 L, MCV 96.2, MCH 29.6, MCHC 30.8 L, RDW Std Deviation 61.9 H, RDW Coeff of [place] 17.9 H, Plt Count 202, MPV 11.1, Immature Gran % (Auto) 1.100 H, Neut % (Auto) 76.7 H, Lymph % (Auto) 5.7 L, [place] % (Auto) 13.3 H, Eos % (Auto) 2.9, Baso % (Auto) 0.3, Absolute Neuts (auto) 8.4 H, Absolute Lymphs (auto) 0.62 L, Nucleated RBC % 0.3 08/23/21 06:03: Sodium 136, Potassium 3.9, Chloride 103, Carbon Dioxide 24.0, Anion Gap 9, BUN 51 H, Creatinine 2.17 H, Estim Creat Clear Calc 24.95, Est GFR (MDRD) Af Amer 28 L, Est GFR (MDRD) Non-Af 23 L, BUN/Creatinine Ratio 23.5 H, Glucose 125 H, Calcium 8.5, Total Bilirubin 1.10 H, AST 18, ALT 11 L, Alkaline Phosphatase 163 H, Total Protein 6.1 L, Albumin 2.2 L, Globulin 3.9, Albumin/Globulin Ratio 0.6 L 08/23/21 06:25: Urine Color Yellow, Urine Clarity Clear, Urine pH 5.0, Ur Specific [place] 1.015, Urine Protein 15 H, Urine Glucose (UA) Normal, Urine Ketones 5 H, Urine Occult Blood Negative, Urine Nitrite Negative, Urine Bilirubin Negative, Urine Urobilinogen Normal, Ur Leukocyte Esterase 25 H, Urine RBC 0 SEEN, Urine WBC 0-5 SEEN, Ur Squamous Epith Cells 0 SEEN, Urine Bacteria RARE, Urine Mucus 0 SEEN Micro: Microbiology 08/20/21 20:56 Tissue - Hip Gram Stain - Final 08/20/21 20:56 Tissue - Hip Wound Culture - Final Proteus mirabilis 08/20/21 20:56 Tissue - Hip Anaerobic Culture - Preliminary 08/20/21 20:56 Tissue - Hip Gram Stain - Final 08/20/21 20:56 Tissue - Hip Wound Culture - Preliminary No growth-Final to follow 08/20/21 20:56 Tissue - Hip Anaerobic Culture - Preliminary No growth in 48 hours. 08/20/21 20:56 Tissue - Hip Gram Stain - Final 08/20/21 20:56 Tissue - Hip Wound Culture - Preliminary No growth-Final to follow 08/20/21 20:56 Tissue - Hip Anaerobic Culture - Preliminary No growth in 48 hours. 08/20/21 20:56 Tissue - Hip Gram Stain - Final 08/20/21 20:56 Tissue - Hip Wound Culture - Preliminary No growth-Final to follow 08/20/21 20:56 Tissue - Hip Anaerobic Culture - Preliminary No growth in 48 hours. 08/20/21 20:56 Tissue - Hip Gram Stain - Final 08/20/21 20:56 Tissue - Hip Wound Culture - Preliminary No growth-Final to follow 08/20/21 20:56 Tissue - Hip Anaerobic Culture - Preliminary No growth in 48 hours. 08/23/21 09:52 Stool Stool Occult Blood (ALYCE) - Final Occult Blood Positive Charges/Coding Visit Charges Inpatient E&M: 98720 Init Hosp L2
[2021-08-23 21:57] LABS: Vancomycin, Random Level 26.9 ug/mL (0.0-15.0)
--- NOTE | 2021-08-23 22:11 | PCM.RX.CS ---
Consult Pharmacy has been consulted to manage selected antiobiotic: Vancomycin Type of Consult: Follow-up Prior Doses of Antibiotics Received/Current Regimen: Medications Discontinued Medications Vancomycin HCl 750 mg/ Sodium (Chloride) 265 mls @ 250 mls/hr IV Q24H SUSAN Last Admin: 08/22/21 23:39 Dose: Infused Labs: Sodium 136 mmol/L (136-145) 08/23/21 06:03 Potassium 3.9 mmol/L (3.5-5.1) 08/23/21 06:03 Chloride 103 mmol/L (98-107) 08/23/21 06:03 Carbon Dioxide 24.0 mmol/L (21.0-32.0) 08/23/21 06:03 Anion Gap 9 (5-15) 08/23/21 06:03 BUN 51 mg/dL (7-18) H 08/23/21 06:03 Creatinine 2.17 mg/dL (0.55-1.02) H 08/23/21 06:03 Est GFR (MDRD) Af Amer 28 mL/min (>60) L 08/23/21 06:03 Est GFR (MDRD) Non-Af 23 mL/min (>60) L 08/23/21 06:03 BUN/Creatinine Ratio 23.5 RATIO (10-20) H 08/23/21 06:03 Glucose 125 mg/dL (74-106) H 08/23/21 06:03 Vancomycin Trough 25.4 ug/mL (5.0-15.0) H 08/22/21 21:20 Random Vancomycin 26.9 ug/mL (0.0-15.0) H 08/23/21 21:23 Microbiology: Microbiology 08/20/21 20:56 Tissue - Hip Gram Stain - Final 08/20/21 20:56 Tissue - Hip Wound Culture - Final Proteus mirabilis 08/20/21 20:56 Tissue - Hip Anaerobic Culture - Preliminary 08/20/21 20:56 Tissue - Hip Gram Stain - Final 08/20/21 20:56 Tissue - Hip Wound Culture - Preliminary No growth-Final to follow 08/20/21 20:56 Tissue - Hip Anaerobic Culture - Preliminary No growth in 48 hours. 08/20/21 20:56 Tissue - Hip Gram Stain - Final 08/20/21 20:56 Tissue - Hip Wound Culture - Preliminary No growth-Final to follow 08/20/21 20:56 Tissue - Hip Anaerobic Culture - Preliminary No growth in 48 hours. 08/20/21 20:56 Tissue - Hip Gram Stain - Final 08/20/21 20:56 Tissue - Hip Wound Culture - Preliminary No growth-Final to follow 08/20/21 20:56 Tissue - Hip Anaerobic Culture - Preliminary No growth in 48 hours. 08/20/21 20:56 Tissue - Hip Gram Stain - Final 08/20/21 20:56 Tissue - Hip Wound Culture - Preliminary No growth-Final to follow 08/20/21 20:56 Tissue - Hip Anaerobic Culture - Preliminary No growth in 48 hours. 08/23/21 09:52 Stool Stool Occult Blood (ALYCE) - Final Occult Blood Positive Weight used for dosin.9 kg Estimated Creatinine Clearance: 18.2 Goal Trough: 15-20 mcg/mL Pharmacy Plan for Drug Dosing: Vancomycin level was high at 26.9. This accompanies a decrease in kidney function (SCr went from 1.50 to 2.17). Will continue to hold the vanco dose, and draw a random level 08/24/21 at 2130. Pharmacy Service will continue to monitor and adjust dosing as required. Follow-Up Labs: Trough Vancomycin - random Labs to be done on [date and time ordered]: 08/24/21 @2130
[2021-08-24] VITALS (12 sets, daily range): BP systolic 108–137; BP diastolic 48–81; PULSE 67–119; RESP 14–18; TEMP 36.2–37.3; O2SAT 94–100
[2021-08-24] MEDS: Acetaminophen 325 MG Tablet 650 MG PO (02:55)
[2021-08-24] MEDS: oxyCODONE 5 MG Tablet PO (02:55)
[2021-08-24 05:39] LABS: Absolute Lymphocyte Count 0.54 X10^3/uL (0.83-4.51); Absolute Neutrophil Count 6.6 X10^3/uL (2.0-7.7); Basophil# 0.02 X10^3/uL; Basophil% 0.2 % (0-1); Eosinophil# 0.28 X10^3/uL; Eosinophils% 3.1 % (0-5); Hematocrit 27.4 % (37-47); Hemoglobin 8.6 g/dL (12.0-15.0); Lymphocyte # 0.54 X10^3/ul (0.83-4.51); Mean Corp Hgb Conc 31.4 g/dL (32-36); Mean Corpuscular Volume 95.5 fL (81-99); Mean Platelet Vol. 10.8 fl (6.2-12.0); Monocyte# 1.43 X10^3/uL; Monocyte% 15.9 % (0-10); NRBC Flagged by Analyzer 0.8 % (0-5); Neutrophil # 6.57 X10^3/uL (2.7-7.7); Neutrophil % 73.1 % (47-70); POSITIVE DIFFERENTIAL YES; Platelet Count 188 K/mm3 (150-450); RBC Distribution Width CV 18.6 % (11.6-14.6); RBC Distribution Width SD 63.5 fl (35.1-43.9); Red Blood Count 2.87 M/mm3 (4.2-5.4)
[2021-08-24 05:43] LABS: Differential Indicated SCAN CRITERIA MET
[2021-08-24 06:14] LABS: ALB/GLOB Ratio 0.5 RATIO (0.9-2.4); AST(SGOT) 26 U/L (15-37); Alanine Aminotransfer ALT/SGPT 16 U/L (13-56); Alkaline Phosphatase 206 U/L (45-117); Anion Gap 10 (5-15); BUN 66 mg/dL (7-18); BUN/Creat Ratio 22.1 RATIO (10-20); Calcium,Total 8.6 mg/dL (8.5-10.1); Chloride 102 mmol/L (98-107); Creatinine, Serum 2.99 mg/dL (0.55-1.02); EST Glomerular Filtration Rate 16 mL/min (>60); Est Glom Filt Rate - Afr Amer 19 mL/min (>60); Estimated Creatinine Clearance 18.11 ml/min; Globulin 3.7 g/dL (2.2-4.2); Glucose 127 mg/dL (74-106); Potassium 3.8 mmol/L (3.5-5.1); Protein, Total 5.7 g/dL (6.4-8.2); Sodium Level 136 mmol/L (136-145)
[2021-08-24 07:05] LABS: Differential Comment SCANNED
[2021-08-24] MEDS: Metoprolol Tartrate 25 MG Tablet PO ×2 (08:15→21:54)
[2021-08-24] MEDS: Pantoprazole Sodium 20 MG Tablet PO (08:16)
[2021-08-24] MEDS: Furosemide 20 MG Tablet PO ×2 (08:26→16:52)
--- NOTE | 2021-08-24 08:53 | WOUNDNOTE ---
Assisted patient to BSC and then to chair. patient with more bloody drainage noted in the VAC canister and tubing after movement. will monitor. pt had been incontinent of some soft unformed stool. pt c/o some mild discomfort to the perineal area. will get order for calmoseptine if not already ordered. pt denies further needs at this time. call light in reach.
--- NOTE | 2021-08-24 09:00 | WOUNDNOTE ---
wound photo: left hip
--- NOTE | 2021-08-24 11:47 | CASEMGMT ---
Social Work Pt is not ready for discharge today. SW will followup with insurance tomorrow and get new precert. TCU is aware. Plan: TCU, pending precert and when medically ready YOAN Payan
--- NOTE | 2021-08-24 12:49 | NURSING ---
leaving unit at this time for procedure
--- NOTE | 2021-08-24 13:00 | EGD_PTH ---
PATIENT: GALILEO HUSTON LOC: MS3 U#:[id number] AGE/SX: 86/F ROOM: [facility]316 RE08/18/[address]: Dr. Valeri Mcrae MD : 1935 BED: 1 DIS: 09/03/2021 SPEC #: [id number] RECD: 08/24/21 13:55 STATUS: AJIT REQ #: [id number] PAM: 08/24/21 13:[address]: Iron Altman DEPT: SURGICAL PATHOLOGY RECD BY: Mary Hurtado ENTERED: 08/25/21 08:01 SP TYPE: EGD BIOPSY OTHR DR: MD Dr. Wander Santos DO Dr. Natthavat Tanphaichitr, MD Dr. Robert Leininger, MD Dr. Steven Widmer, MD M Gregory Barton, PA Tissues: A - Gastric mucous membrane B - Esophagus, NOS Procedures: Special Stain Group I Surgery Specimen Level IV GMS Stain (control) Comments: @ Ordering doctor for SUIV edited from to @ by RGOOD at 08/25/21 1422 @ Submitting doctor edited from to @ by RGOOD at 08/25/211421 HEADER OPERATION: EGD (MAC) PRE-OP DIAGNOSIS: Anemia TISSUE SUBMITTED: A - Gastric antrum biopsy for H. pylori and pathology, B - Esophageal ulcer biopsy MICROSCOPIC DIAGNOSIS A. Gastric antrum, biopsy: Mild to moderate gastritis. See microscopic description and comment. B. Esophageal ulcer, biopsy: Fragments of squamous mucosa with extensive ulceration, acute inflammation and fibrinopurulent exudation. See comment. SJ:dayday 08/26/2021 COMMENT A. The results of immunohistochemistry for Helicobacter pylori will be reported separately ([id number]). B. Special stain for fungi is positive for organisms (yeast and pseudohyphae), consistent with Carla species; matched control is appropriate. Correlation with clinical, endoscopic findings and appropriate follow-up are necessary. MICROSCOPIC DESCRIPTION Slides are reviewed. A. The specimen shows fragments of gastric mucosa with chronic inflammatory cell infiltrates in the lamina propria consisting of lymphocytes and plasma cells, consistent with mild to moderate chronic gastritis. Focal mild mucosal congestion and hemorrhage are also noted. GROSS DESCRIPTION A - Received in fixative is one container labeled with the patient's name and designated gastric antrum. The specimen consists of one irregular fragment of light yepez soft tissue that measures 0.4 x 0.3 x 0.1 cm. The specimen is totally submitted in one cassette. B - Received in fixative is one container labeled with the patient's name and designated biopsy esophageal ulcer. The specimen consists of multiple irregular fragments of light yepez soft tissue that in aggregate measure 0.6 x 0.5 x 0.1 cm. The specimen is totally submitted in one cassette. / SJ:rg 08/25/2021 TC:2 CPT: 31502 x2, 08669
--- NOTE | 2021-08-24 13:00 | IMM_PTH ---
PATIENT: GALILEO HUSTON LOC: MS3 U#:[id number] AGE/SX: 86/F ROOM: [facility] RE08/18/[address]: Dr. Valeri Mcrae MD : 1935 BED: 1 DIS: 09/03/2021 SPEC #: [id number] RECD: 08/25/21 13:39 STATUS: SOUT REQ #: [id number] PAM: 08/24/21 13:[address]: Iron Altman DEPT: IMMUNOHISTOCHEMISTRY RECD BY: Hazel Collado ENTERED: 08/25/21 13:40 SP TYPE: IMMUNO OTHR DR: MD Dr. Wander Santos DO Dr. Natthavat Tanphaichitr, MD Dr. Robert Leininger, MD Dr. Steven Widmer, MD M Gregory Barton, PA Tissues: A - Stomach, NOS Procedures: H Pylori (initial) PHYSICIAN & [address] [address] SPECIMEN INFORMATION: Tissue Source: A ? Gastric antrum biopsy Clinical Info: Robb Specimen Number: [id number] CPT code: 32475 METHODOLOGY: Deparaffinized sections of prefer/formalin-fixed tissue or PAP/DQ stained slides are incubated with monoclonal/polyclonal antibodies/oligonucleotide probes. Localization is made via biotin free immunoperoxidase method. Appropriate controls are performed and reacted as expected. Results on target cell population are indicated in the following table: RESULTS: ANTIBODY / CLONE RESULT Block A H Pylori (polyclonal) negative These tests were developed and their performance characteristics determined by [facility]. They may not have been cleared or approved by the U.S. Food and Drug Administration. The FDA has determined that such clearance or approval is not necessary. The above immunohistochemical/dualISH markers are ordered and reviewed by the Pathologist. INTERPRETATION: A. Gastric antrum, biopsy: Negative for Helicobacter pylori organisms. SJ:dayday 08/26/2021
--- NOTE | 2021-08-24 13:40 | OP.EGD_ITS ---
Patient Name: Flori Lester Procedure Date: 08/24/2021 1:09 PM Date of : 1935 Age: 86 Procedure: Upper GI endoscopy Indications: Epigastric abdominal pain Providers: Iron Altman DO Medicines: Monitored Anesthesia Care Patient Profile: This is an 86 year old female. Refer to note in patient chart for documentation of history and physical. Patient has symptoms of chronic dysphagia and dysphagia with both liquids and solids. Complications: No immediate complications. Procedure: Pre-Anesthesia Assessment: - Prior to the procedure, a History and Physical was performed, and patient medications and allergies were reviewed. The risks and benefits of the procedure and the sedation options and risks were discussed with the patient. All questions were answered and informed consent was obtained. Patient identification and proposed procedure were verified by the physician in the pre-procedure area. Mental Status Examination: alert and oriented. Airway Examination: normal oropharyngeal airway and neck mobility. Respiratory Examination: clear to auscultation. CV Examination: normal. Prophylactic Antibiotics: The patient does not require prophylactic antibiotics. Prior Anticoagulants: The patient has taken no previous anticoagulant or antiplatelet agents. After reviewing the risks and benefits, the patient was deemed in satisfactory condition to undergo the procedure. The anesthesia plan was to use moderate sedation / analgesia (conscious sedation). Immediately prior to administration of medications, the patient was re-assessed for adequacy to receive sedatives. The heart rate, respiratory rate, oxygen saturations, blood pressure, adequacy of pulmonary ventilation, and response to care were monitored throughout the procedure. The physical status of the patient was re-assessed after the procedure. After obtaining informed consent, the endoscope was passed under direct vision. Throughout the procedure, the patient's blood pressure, pulse, and oxygen saturations were monitored continuously. The Endoscope was introduced through the mouth, and advanced to the second part of duodenum. The upper GI endoscopy was accomplished without difficulty. The patient tolerated the procedure well. Scope In: 1:28:50 PM Scope Out: 1:33:26 PM Total Procedure Duration Time 0 hours 4 minutes 36 seconds Findings: One cratered esophageal ulcer with oozing blood and stigmata of recent bleeding was found 33 to 35 cm from the incisors. The lesion was 5 mm in largest dimension. Coagulation for hemostasis using heater probe was successful. Biopsies were taken with a cold forceps for histology. Verification of patient identification for the specimen was done. Estimated blood loss was minimal. An esophageal ring was seen at 36 cm from the incisors. A small hiatal hernia was present. Localized moderate inflammation characterized by congestion (edema), erosions and erythema was found in the gastric antrum. Biopsies were taken with a cold forceps for histology. Verification of patient identification for the specimen was done. Estimated blood loss was minimal. The in the duodenum was normal. Impression: - Bleeding esophageal ulcer. Treated with a heater probe. Biopsied. - Small hiatal hernia. - Gastritis. Biopsied. - Normal. - Esophageal ring was not dilated due to patient being on anticoagulation and having poor nutrition at this time. Recommendation: - [facility] to [facility] care. - Use Protonix (pantoprazole) 40 mg IV twice daily - Hold Eliquis for 3 days - No NSAIDs for 7 days - The patient has taken no previous anticoagulant or antiplatelet agents. - No aspirin, ibuprofen, naproxen, or other non-steroidal anti-inflammatory drugs for 7 days. Procedure Code(s): --- Professional --- 43077, 59, Esophagogastroduodenoscopy, flexible, transoral; with control of bleeding, any method 85993, 51, Esophagogastroduodenoscopy, flexible, transoral; with biopsy, single or multiple CPT copyright 2017 [employer]. All rights reserved. The codes documented in this report are preliminary and upon credit assessment analyst review may be revised to meet current compliance requirements. Iron Altman DO 08/24/2021 1:40:16 PM This report has been signed electronically. Number of Addenda: 1 Note Initiated On: 08/24/2021 1:09 PM Addendum Number: 1 Addendum Date: 11/18/2021 6:22:38 AM MAC was used as sedation for this procedure. Iron Altman DO 11/18/2021 6:22:42 AM This report has been signed electronically.
--- NOTE | 2021-08-24 13:41 | OP.CCLET_ITS ---
11/18/2021 Robyn Sen Re : Upper GI endoscopy procedure for Flori Lester Dear [place] This procedure was performed on Tuesday, August 24, 2021. My impressions and recommendations are as follows: Impressions : - Bleeding esophageal ulcer. Treated with a heater probe. Biopsied. - Small hiatal hernia. - Gastritis. Biopsied. - Normal. - Esophageal ring was not dilated due to patient being on anticoagulation and having poor nutrition at this time. Recommendations : - [facility] to [facility] for [facility] care. - Use Protonix (pantoprazole) 40 mg IV twice daily - Hold Eliquis for 3 days - No NSAIDs for 7 days - The patient has taken no previous anticoagulant or antiplatelet agents. - No aspirin, ibuprofen, naproxen, or other non-steroidal anti-inflammatory drugs for 7 days. My findings are described in the full procedure note, which is enclosed. If I can be of further assistance, please feel free to contact me at . Sincerely, Iron Altman, 08/24/2021 1:40:16 PM This report has been signed electronically.
[2021-08-24] MEDS: Gabapentin 300 MG Capsule PO ×2 (14:53→21:51)
[2021-08-24] MEDS: Ascorbic Acid 500 MG Tablet PO (16:52)
[2021-08-24] MEDS: Calcium (Elemental) 500 MG Tablet PO (16:52)
[2021-08-24] MEDS: Ferrous Sulfate 325 MG Tablet PO (16:53)
[2021-08-24] MEDS: Ensure Surgery 237 ML LIQUID PO (16:57)
[2021-08-24] MEDS: 0.9% Normal Saline 1,000 ML 75 ML IV (21:51)
[2021-08-24] MEDS: Menthol/Lanolin/Calamine/Znox 113 GM Tube 1 APPLIC TOPICAL (21:57)
[2021-08-25] VITALS (8 sets, daily range): BP systolic 110–133; BP diastolic 61–77; PULSE 66–105; RESP 16–18; TEMP 36.4–37.2; O2SAT 94–100
[2021-08-25 04:39] LABS: Absolute Lymphocyte Count 0.55 X10^3/uL (0.83-4.51); Basophil# 0.04 X10^3/uL; Basophil% 0.4 % (0-1); Eosinophils% 4.3 % (0-5); Hemoglobin 9.2 g/dL (12.0-15.0); Lymphocyte # 0.55 X10^3/ul (0.83-4.51); Lymphocyte % 5.9 % (19-41); Mean Corp Hgb Conc 30.7 g/dL (32-36); Mean Corpuscular Hgb 29.3 pg (27.0-32.0); Mean Corpuscular Volume 95.5 fL (81-99); Mean Platelet Vol. 10.8 fl (6.2-12.0); Monocyte# 1.16 X10^3/uL; Monocyte% 12.5 % (0-10); NRBC Flagged by Analyzer 0.9 % (0-5); Neutrophil # 6.98 X10^3/uL (2.7-7.7); Neutrophil % 75.2 % (47-70); POSITIVE DIFFERENTIAL YES; POSITIVE MORPHOLOGY YES; Platelet Count 216 K/mm3 (150-450); RBC Distribution Width CV 18.9 % (11.6-14.6); RBC Distribution Width SD 65.1 fl (35.1-43.9); Red Blood Count 3.14 M/mm3 (4.2-5.4); White Blood Count 9.3 K/mm3 (4.4-11.0)
[2021-08-25 04:41] LABS: Differential Indicated SCAN CRITERIA MET
[2021-08-25 05:04] LABS: Anisocytosis 2+
[2021-08-25 05:24] LABS: ALB/GLOB Ratio 0.5 RATIO (0.9-2.4); AST(SGOT) 34 U/L (15-37); Alanine Aminotransfer ALT/SGPT 17 U/L (13-56); Albumin, Serum 2.1 g/dL (3.2-5.0); Alkaline Phosphatase 280 U/L (45-117); Anion Gap 13 (5-15); BUN 73 mg/dL (7-18); BUN/Creat Ratio 20.2 RATIO (10-20); Calcium,Total 9.1 mg/dL (8.5-10.1); Chloride 101 mmol/L (98-107); Creatinine, Serum 3.62 mg/dL (0.55-1.02); EST Glomerular Filtration Rate 13 mL/min (>60); Est Glom Filt Rate - Afr Amer 15 mL/min (>60); Estimated Creatinine Clearance 14.96 ml/min; Globulin 4.1 g/dL (2.2-4.2); Glucose 134 mg/dL (74-106); Potassium 4.4 mmol/L (3.5-5.1); Protein, Total 6.2 g/dL (6.4-8.2); Sodium Level 136 mmol/L (136-145)
[2021-08-25] MEDS: Gabapentin 300 MG Capsule PO (05:49)
[2021-08-25] MEDS: Levothyroxine 125 MCG Tablet PO (05:51)
[2021-08-25] MEDS: Cholecalciferol (VIT D3) 25 MCG TABLET (1,000 UNITS) PO (09:40)
[2021-08-25] MEDS: Pantoprazole Sodium 20 MG Tablet PO (09:40)
[2021-08-25] MEDS: Metoprolol Tartrate 25 MG Tablet PO ×2 (09:40→20:31)
[2021-08-25] MEDS: Menthol/Lanolin/Calamine/Znox 113 GM Tube 1 APPLIC TOPICAL ×2 (09:41→20:31)
--- NOTE | 2021-08-25 10:12 | PCM.CONS.R ---
Assessment & Plan Assessment/Plan (1) Acute kidney injury superimposed on CKD: (2) Left hip prosthetic joint infection: (3) Anemia: (4) HFrEF (heart failure with reduced ejection fraction): PLAN: Plan - We were consulted for acute kidney injury. Patient has a known history of chronic kidney disease stage III/IV with baseline creatinine range around 1.7 to 2 mg/dL. Renal function was stable and at baseline on admission, creatinine 1.7 mg/dL on 08/20, however over last few days creatinine has worsened. Currently her creatinine is at 3.62 mg/dL, estimated GFR 13 mL/min. Patient has past medical history for heart failure with reduced EF,?estimated ejection fraction of 40 to 45%. She had been on furosemide 20 mg IV twice daily since admission but this was stopped yesterday and patient was started on IV fluids. She has also been treated with IV antibiotics for hip infection and has been receiving vancomycin. Her Vanco trough and random Vanco levels were slightly elevated since August 21. She likely has acute kidney injury, multifactorial from infection, possible component of overdiuresis, possible component from volume depletion as patient is now having diarrhea. Nonoliguric EL may have progressed to ATN. At this time there is no acute indication for FUNERAL HOME LOCATION MANAGER, patient is not fluid overloaded, she is making urine, she is not hyperkalemic nor acidotic. She does have some mild uremic symptoms, mild asterixis but no acute indication for FUNERAL HOME LOCATION MANAGER at this time. Her vital signs are stable, blood pressure acceptable on Lopressor. I did discuss in length with patient as well as her daughter over the phone current renal function and reason for consult. I also explained should renal function worsen and or urine output decline patient may need FUNERAL HOME LOCATION MANAGER. Risks and benefits of dialysis explained to patient. Patient did voice understanding and is in agreement to dialysis if needed. Will obtain renal ultrasound to rule out other causes of EL. Urinalysis from 08/23 negative for blood, urine protein 15. Recommend to continue holding Lasix and continuing IV fluids. Reviewed medications, will decrease Neurontin from TID to daily. She is on ceftriaxone for antibiotic coverage. - Patient has CKD stage III/IV with risk factors including hypertension, coronary artery disease and heart failure. Suspect chronic fluctuating creatinine levels from cardiorenal syndrome physiology. Baseline serum creatinine ranging around 1.7 to 2 mg/dL. - Patient did have a stool positive for occult blood and has been followed by Dr. Altman. Hemoglobin was 11.4 on admission and is currently 9.2 today. She did have upper GI yesterday with findings of bleeding esophageal ulcer which was treated with heater probe and biopsied, also has small hiatal hernia and gastritis which was biopsied. Patient is on PPI. Thank you for allowing us to precipitate in the care of Ms. Huston, further orders will be forthcoming as hospitalization evolves. HPI Consult Data Date of Consult: 08/25/21 HPI Narrative HPI Narrative: GALILEO HUSTON, is a 86 F with past medical history significant for coronary artery disease status post coronary artery bypass graft surgery x2 and aortic valve replacement with bioprosthetic valve, ischemic cardiomyopathy with last known EF 40 to 45% from April 2020, history of atrial fibrillation who was admitted to the hospital on August 18 with cellulitis of left hip. Patient had left hip arthroplasty in April 2021. Patient had presented to the emergency room with left hip wound and drainage. Since admission to the hospital patient has been seen by Ortho and underwent I&D of left infected seroma. Infectious disease is also following patient for antibiotic management. We were consulted for acute kidney injury. Patient reports that she is aware that she has chronic kidney disease but has not been seen by a functional mental disability teacher. Patient states that her doctor osteopathic and primary care physician adjust her diuretics based upon her edema and creatinine levels. In reviewing past creatinine trends patient has evidence of CKD dating back to at least 2017 with current baseline creatinine ranging around 1.7 to 2 mg/dL. On admission creatinine was 1.7 but has worsened, today her creatinine is 3.6 mg/dL. Patient denies any nausea but states she has been having multiple episodes of diarrhea. She complains of feeling thirsty. Denies any vomiting. Patient is now on IV fluids. FOR[facility]LY [facility] Medical History Acquired hypothyroidism Acute kidney injury Acute kidney injury superimposed on CKD Anemia Anxiety and depression Atherosclerosis of coronary artery of morongo heart without angina pectoris Chronic combined systolic and diastolic CHF (congestive heart failure) Chronic kidney disease, stage 3 COVID-19 virus detected (02/29/20) Elevated serum globulin level Esophagitis Essential hypertension Fracture of femoral neck, left, closed HFrEF (heart failure with reduced ejection fraction) Hiatal hernia High cholesterol History of non-ST elevation myocardial infarction (NSTEMI) (04/2020) History of stress test Insomnia Irritable bowel Ischemic cardiomyopathy Left atrial enlargement Nonrheumatic aortic (valve) stenosis Obesity (BMI 30-39.9) Orthopedic aftercare Paroxysmal atrial fibrillation Post-menopausal PUD (peptic ulcer disease) Restless legs Sciatica Secondary pulmonary arterial hypertension Takotsubo cardiomyopathy Ulcer Home Medications nitroglycerin 0.4 mg sublingual tablet 0.4 mg sublingual Q5M PRN Chest Pain 02/24/16 [History Last Taken 06/30/17] levothyroxine 125 mcg tablet 125 mcg PO DAILY thyroid #30 tabs 11/14/18 [History Last Taken 08/18/21] acetaminophen 325 mg tablet 650 mg PO Q6H PRN PRN Pain 1-10 Or Fever 05/13/20 [Rx Last Taken 1 Week Ago ~08/11/21] omeprazole 20 mg capsule,delayed release 20 mg PO DIRECTED gerd 07/28/20 [History Last Taken 08/18/21] clopidogrel 75 mg tablet 75 mg PO DAILY blood thinner #90 tabs 08/04/20 [Rx Last Taken 08/17/21] apixaban 5 mg tablet 2.5 mg PO BID blood thinner 08/21/20 [History Last Taken 08/18/21] geriatric pnnrirdw-qjnl-vdtf 1 tab PO DAILY supplement 08/21/20 [History Last Taken 08/18/21] oxycodone 5 mg tablet 5 mg PO Q4H PRN Pain 08/21/20 [History Last Taken 08/18/21] gabapentin 300 mg capsule 300 mg PO TID nerve pain 05/25/21 [History Last Taken 08/18/21] ferrous sulfate 325 mg (65 mg iron) tablet 325 mg PO BID supplement 05/26/21 [History Last Taken 08/18/21] furosemide 40 mg tablet See Rx Instructions PO .COMPLEX water pill #30 tabs 07/21/21 [Rx Last Taken 08/18/21] ascorbic acid (vitamin C) 500 mg tablet 500 mg PO BID supplement 08/18/21 [History Last Taken 08/18/21] calcium carbonate 500 mg calcium (1,250 mg) tablet 500 mg PO BIDCM supplement 08/18/21 [History Last Taken 08/18/21] cholecalciferol (vitamin D3) 25 mcg (1,000 unit) tablet 1,000 unit PO DAILY supplement 08/18/21 [History Last Taken 08/18/21] metolazone 2.5 mg tablet 2.5 mg PO 2XW weight gain 08/18/21 [History Last Taken 08/18/21] metoprolol tartrate 25 mg tablet 12.5 mg PO BID bp 08/18/21 [History Last Taken 08/18/21] psyllium husk (aspartame) 3.4 gram oral powder packet 1 packet PO DAILY constipation 08/18/21 [History Last Taken 08/14/21] sennosides 8.6 mg-docusate sodium 50 mg tablet 2 tablet PO BID stool softener 08/18/21 [History Last Taken 08/18/21] ceftriaxone 2 gram intravenous solution 2 g IV Q24H #38 ea 08/24/21 [Rx Last Taken Unknown] Allergy/AdvReac Type Severity Reaction Status Date / Time atorvastatin [From Lipitor] AdvReac Pain in Verified 08/18/21 15:02 joints niacin AdvReac Pain in Verified 08/18/21 15:02 joints pregabalin [From Lyrica] AdvReac leg pain Verified 08/18/21 15:02 simvastatin [From Zocor] AdvReac Pain in Verified 08/18/21 15:02 joints Family History Mother Diabetes Heart disease Other CAD (coronary artery disease) Surgical History H/O cardiac catheterization H/O coronary artery bypass surgery (01/2016) History of aortic valve replacement with bioprosthetic valve (01/2016) History of arthroplasty of left hip (04/21/21) History of cardioversion (12/24/19) History of coronary artery stent placement (2014) Social History household members: family Smoking Status: Never smoker alcohol intake: never substance use type: does not use caffeine: No ROS ROS Narrative As per past medical history and HPI Physical Exam Narrative Const: Alert and oriented x3. No apparent distress HEENT: Head is normocephalic, atraumatic. Oral mucosa moist, lips dry Cardio: S1, S2, RRR, no murmur, rubs or gallop Respiratory: Lung sounds clear anteriorly and posteriorly. No wheezes, rhonchi or rales noted Extremities: No pitting edema noted bilateral lower legs or feet Lab / Micro Data Result Diagrams: 08/25/21 04:19 08/25/21 04:19 Labs: Laboratory Results - last 24 hr 08/25/21 04:19: WBC 9.3, RBC 3.14 L, Hgb 9.2 L, Hct 30.0 L, MCV 95.5, MCH 29.3, MCHC 30.7 L, RDW Std Deviation 65.1 H, RDW Coeff of Leatha 18.9 H, Plt Count 216, MPV 10.8, Immature Gran % (Auto) 1.700 H, Neut % (Auto) 75.2 H, Lymph % (Auto) 5.9 L, [place] % (Auto) 12.5 H, Eos % (Auto) 4.3, Baso % (Auto) 0.4, Absolute Neuts (auto) 7.0, Absolute Lymphs (auto) 0.55 L, Nucleated RBC % 0.9, Anisocytosis 2+ 08/25/21 04:19: Sodium 136, Potassium 4.4, Chloride 101, Carbon Dioxide 22.0, Anion Gap 13, BUN 73 H, Creatinine 3.62 H, Estim Creat Clear Calc 14.96, Est GFR (MDRD) Af Amer 15 L, Est GFR (MDRD) Non-Af 13 L, BUN/Creatinine Ratio 20.2 H, Glucose 134 H, Calcium 9.1, Total Bilirubin 0.90, AST 34, ALT 17, Alkaline Phosphatase 280 H, Total Protein 6.2 L, Albumin 2.1 L, Globulin 4.1, Albumin/Globulin Ratio 0.5 L Micro: Microbiology 08/23/21 06:25 Urine, Catheterized Urine Culture - Final Culture exhibits no growth. 08/20/21 20:56 Tissue - Hip Gram Stain - Final 08/20/21 20:56 Tissue - Hip Wound Culture - Final 08/20/21 20:56 Tissue - Hip Anaerobic Culture - Preliminary No growth in 48 hours. 08/20/21 20:56 Tissue - Hip Gram Stain - Final 08/20/21 20:56 Tissue - Hip Wound Culture - Final No growth aerobically. 08/20/21 20:56 Tissue - Hip Anaerobic Culture - Preliminary No growth in 48 hours. 08/20/21 20:56 Tissue - Hip Gram Stain - Final 08/20/21 20:56 Tissue - Hip Wound Culture - Final No growth aerobically. 08/20/21 20:56 Tissue - Hip Anaerobic Culture - Preliminary No growth in 48 hours. 08/20/21 20:56 Tissue - Hip Gram Stain - Final 08/20/21 20:56 Tissue - Hip Wound Culture - Final No growth aerobically. 08/20/21 20:56 Tissue - Hip Anaerobic Culture - Preliminary No growth in 48 hours. 08/18/21 16:47 Blood Culture (Wb) - Anticubital Left Blood Culture - Final No growth in 5 days. 08/18/21 16:52 Blood Culture (Wb) - Anticubital Right Blood Culture - Final No growth in 5 days.
--- NOTE | 2021-08-25 10:29 | PCM.PN.ID ---
Physical Exam Narrative Feeling tired, weak. No fever, no diarrhea. Const alert and no apparent distress Resp normal air movement and clear to auscultation bilaterally Cardio regular rate and regular rhythm GI soft to palpation, non-tender and non-distended Skin Skin Narrative: no new rash ID ID: Route of nutrition/ use of supplements: [] Nutritional Intake: [] IV Site: [] Hudson Catheter: [] Assessment & Plan Assessment/Plan (1) Left hip prosthetic joint infection: PLAN: s/p OR 08/20/[address] Nettles for I&D and revision of L hip. One surg cx with proteus. Now course complicated by worsening EL. 08/24 changed abx to ceftriaxone. Neph consulted. Plan on 6 weeks iv ceftriaxone, stop date 10/01/21. Will follow, d/w primary team.
--- NOTE | 2021-08-25 10:46 | US_ITS ---
STUDY: RENAL ULTRASOUND - COMPLETE REASON FOR EXAM: Female, 86 years old. EL TECHNIQUE: Ultrasound evaluation of the kidneys was performed with real-time and static diggs-scale imaging. COMPARISON: None. FINDINGS: RIGHT KIDNEY: Normal location of the right kidney, which is normal in size. The right kidney measures 9.4 cm x 4.8 cm x 4 cm. There is a normal cortex of the right kidney. The renal cortex measures 1.4 cm. There is no right renal mass or cyst. There are no right renal calculi. There is no right hydronephrosis. DISTAL RIGHT URETER: There is non-visualization of the distal right ureter. There is no demonstrated right ureterovesical junction calculus. There is no demonstrated right ureteral jet. LEFT KIDNEY: Normal location of the left kidney, which is normal in size. The left kidney measures 9.7 cm x 4.2 cm x 4.2 cm. There is a normal cortex of the left kidney. The renal cortex measures 1.2 cm. There is no left renal mass or cyst. There are no left renal calculi. There is no left hydronephrosis. DISTAL LEFT URETER: There is non-visualization of the distal left ureter. There is no demonstrated left ureterovesical junction calculus. There is no demonstrated left ureteral jet. BLADDER: The distended urinary bladder has a volume of 131 ml. There is a normal wall thickness of the distended urinary bladder. There is no demonstrated mass within the urinary bladder. There are no demonstrated bladder calculi. US/Kidney and Bladder IMPRESSION: Normal ultrasound of the kidneys and urinary bladder. Electronically Signed: Manish Zapata MD at 15:13 EDT ,
[2021-08-25] MEDS: 0.9% Normal Saline 1,000 ML 75 ML IV (11:34)
[2021-08-25] MEDS: Multivitamins,Ther W-Minerals Tablet 1 TABLET PO (11:37)
[2021-08-25] MEDS: Ferrous Sulfate 325 MG Tablet PO ×2 (11:37→16:57)
[2021-08-25] MEDS: Ascorbic Acid 500 MG Tablet PO ×2 (11:37→16:57)
[2021-08-25] MEDS: Calcium (Elemental) 500 MG Tablet PO ×2 (11:37→16:57)
--- NOTE | 2021-08-25 11:49 | PCM.PN.BLA ---
Progress Note Nephrology attending attestation to [employer]'s note. The patient has a history of chronic kidney disease stage IIIb. Baseline serum creatinine is around 1.5 to 1.6 mg/dL. Current EL with serum creatinine rising to 3.62 mg/dL is likely due to effective blood volume depletion which may have been related to diuresis. Another possibility would be ischemic ATN from prolonged effective blood volume depletion. Urinalysis was reviewed. I have lower suspicion for other causes of EL such as nephrotoxic ATN, interstitial nephritis or glomerulonephritis at this point. Will check urine indices and ultrasound of the kidney to make sure were not missing obstruction. Agree with holding diuretics and reexpanding volume carefully. Current medications are reviewed and they are appropriately dosed for her estimated renal function. We will recheck renal function, volume status, electrolytes, and acid-base status again tomorrow.
--- NOTE | 2021-08-25 17:23 | PCM.PROGNOTE ---
Subjective Subjective Patient says that she still feels very out of it. She denies any chest pain or shortness of breath. She denies any fevers. She still is not eating very well. Objective Data Objective Data Vital Signs: Vital Signs Temp Pulse Resp BP Pulse Ox O2 Del Method O2 Flow Rate 97.5 F L 83 18 131/69 H 100 Room Air 2 08/25/21 15:01 08/25/21 15:01 08/25/21 15:01 08/25/21 15:01 08/25/21 15:01 08/25/21 15:01 08/25/21 11:35 Oxygen Flow Rate (L/min) 2 Oxygen Delivery Method Room Air Weight: 180 lb 8.937 oz Body Mass Index (BMI) 35.4 Intake & Output: Intake and Output for Last 24 Hours 08/23/21 08/24/21 08/25/21 23:59 23:59 23:59 Intake Total 1680 / 1680 600 / 600 1250 / 1250 Output Total 450 / 450 625 / 625 Balance 1230 / 1230 -25 / -25 1250 / 1250 Lab / Micro Data Result Diagrams: 08/25/21 04:19 08/25/21 04:19 Labs: Laboratory Results - last 24 hr 08/25/21 04:19: WBC 9.3, RBC 3.14 L, Hgb 9.2 L, Hct 30.0 L, MCV 95.5, MCH 29.3, MCHC 30.7 L, RDW Std Deviation 65.1 H, RDW Coeff of Leatha 18.9 H, Plt Count 216, MPV 10.8, Immature Gran % (Auto) 1.700 H, Neut % (Auto) 75.2 H, Lymph % (Auto) 5.9 L, [place] % (Auto) 12.5 H, Eos % (Auto) 4.3, Baso % (Auto) 0.4, Absolute Neuts (auto) 7.0, Absolute Lymphs (auto) 0.55 L, Nucleated RBC % 0.9, Anisocytosis 2+ 08/25/21 04:19: Sodium 136, Potassium 4.4, Chloride 101, Carbon Dioxide 22.0, Anion Gap 13, BUN 73 H, Creatinine 3.62 H, Estim Creat Clear Calc 14.96, Est GFR (MDRD) Af Amer 15 L, Est GFR (MDRD) Non-Af 13 L, BUN/Creatinine Ratio 20.2 H, Glucose 134 H, Calcium 9.1, Total Bilirubin 0.90, AST 34, ALT 17, Alkaline Phosphatase 280 H, Total Protein 6.2 L, Albumin 2.1 L, Globulin 4.1, Albumin/Globulin Ratio 0.5 L Micro: Microbiology 08/20/21 20:56 Tissue - Hip Gram Stain - Final 08/20/21 20:56 Tissue - Hip Wound Culture - Final Proteus mirabilis 08/20/21 20:56 Tissue - Hip Anaerobic Culture - Final Bacteroides fragilis group 08/23/21 06:25 Urine, Catheterized Urine Culture - Final Culture exhibits no growth. 08/20/21 20:56 Tissue - Hip Gram Stain - Final 08/20/21 20:56 Tissue - Hip Wound Culture - Final 08/20/21 20:56 Tissue - Hip Anaerobic Culture - Preliminary No growth in 48 hours. 08/20/21 20:56 Tissue - Hip Gram Stain - Final 08/20/21 20:56 Tissue - Hip Wound Culture - Final No growth aerobically. 08/20/21 20:56 Tissue - Hip Anaerobic Culture - Preliminary No growth in 48 hours. 08/20/21 20:56 Tissue - Hip Gram Stain - Final 08/20/21 20:56 Tissue - Hip Wound Culture - Final No growth aerobically. 08/20/21 20:56 Tissue - Hip Anaerobic Culture - Preliminary No growth in 48 hours. 08/20/21 20:56 Tissue - Hip Gram Stain - Final 08/20/21 20:56 Tissue - Hip Wound Culture - Final No growth aerobically. 08/20/21 20:56 Tissue - Hip Anaerobic Culture - Preliminary No growth in 48 hours. 08/18/21 16:47 Blood Culture (Wb) - Anticubital Left Blood Culture - Final No growth in 5 days. 08/18/21 16:52 Blood Culture (Wb) - Anticubital Right Blood Culture - Final No growth in 5 days. 08/23/21 09:52 Stool Stool Occult Blood (ALYCE) - Final Occult Blood Positive Radiography Diagnostic Testing: Radiology Impression Renal Ultrasound 08/25/21 10:46 IMPRESSION: Normal ultrasound of the kidneys and urinary bladder. Electronically Signed: Manish Zapata MD at 15:13 EDT , Physical Exam Narrative Feeling tired, weak. No fever, no diarrhea. Const alert and no apparent distress Resp normal air movement and clear to auscultation bilaterally Cardio regular rate and regular rhythm GI soft to palpation, non-tender and non-distended Skin Skin Narrative: no new rash Assessment & Plan Assessment/Plan (1) Anemia: PLAN: Anemia is multifactorial. She has elements anemia chronic disease with acute blood loss anemia likely secondary to bleeding from esophageal ulcer, gastritis and chronic GI bleed from Geronimo's erosions and a small hiatal hernia. (2) Esophageal ulcer: PLAN: Esophageal ulcer secondary to eosinophilic esophagitis with esophageal ring and getting her pills stuck in her esophagus causing a pressure ulcer in the esophagus. I would like her to be on PPI therapy but with her renal failure I would be very cautious. If it is okay she can take PPI therapy once a day and Carafate twice a day (3) Eosinophilic esophagitis: PLAN: . Patient had an esophageal ring which was not dilated thought to be secondary to eosinophilic esophagitis. Biopsies were not taken because she was on anticoagulation and antiplatelet therapy. She may benefit from budesonide slurry but I do not want to start on any steroids with her current acute kidney injury on chronic kidney disease. (4) Gastritis: PLAN: Can straight this with bleeding was treated endoscopically. Her hemoglobin seems to be holding on. If she can tolerate antisecretory therapy and cytoprotective agents we do the best for her stomach but I will make sure we can get clearance from nephrology. Charges/Coding Visit Charges Inpatient E&M: 64209 Subs Hosp L3
--- NOTE | 2021-08-25 18:02 | PN.HOSP_ITS ---
Subjective Subjective The date of this entry is 08/24/2021: Patient was seen and examined today, I communicated via text with infectious diseases, patient's creatinine has elevated on today's lab, her vancomycin was stopped, I contacted nephrology and they will see her tomorrow in consultation, patient will be given IV fluids. Objective Data Objective Data Vital Signs: Vital Signs Temp Pulse Resp BP Pulse Ox O2 Del Method O2 Flow Rate 97.5 F L 83 18 131/69 H 100 Room Air 2 08/25/21 15:01 08/25/21 15:01 08/25/21 15:01 08/25/21 15:01 08/25/21 15:01 08/25/21 15:01 08/25/21 11:35 Oxygen Flow Rate (L/min) 2 Oxygen Delivery Method Room Air Weight: 81.9 kg Body Mass Index (BMI) 35.4 Intake & Output: Intake and Output for Last 24 Hours 08/23/21 08/24/21 08/25/21 23:59 23:59 23:59 Intake Total 1680 / 1680 600 / 600 1250 / 1250 Output Total 450 / 450 625 / 625 Balance 1230 / 1230 -25 / -25 1250 / 1250 Lab / Micro Data Result Diagrams: 08/25/21 04:19 08/25/21 04:19 Labs: Laboratory Results - last 24 hr 08/25/21 04:19: WBC 9.3, RBC 3.14 L, Hgb 9.2 L, Hct 30.0 L, MCV 95.5, MCH 29.3, MCHC 30.7 L, RDW Std Deviation 65.1 H, RDW Coeff of Leatha 18.9 H, Plt Count 216, MPV 10.8, Immature Gran % (Auto) 1.700 H, Neut % (Auto) 75.2 H, Lymph % (Auto) 5.9 L, [place] % (Auto) 12.5 H, Eos % (Auto) 4.3, Baso % (Auto) 0.4, Absolute Neuts (auto) 7.0, Absolute Lymphs (auto) 0.55 L, Nucleated RBC % 0.9, Anisocytosis 2+ 08/25/21 04:19: Sodium 136, Potassium 4.4, Chloride 101, Carbon Dioxide 22.0, Anion Gap 13, BUN 73 H, Creatinine 3.62 H, Estim Creat Clear Calc 14.96, Est GFR (MDRD) Af Amer 15 L, Est GFR (MDRD) Non-Af 13 L, BUN/Creatinine Ratio 20.2 H, Glucose 134 H, Calcium 9.1, Total Bilirubin 0.90, AST 34, ALT 17, Alkaline Phosphatase 280 H, Total Protein 6.2 L, Albumin 2.1 L, Globulin 4.1, Albumin/Globulin Ratio 0.5 L Micro: Microbiology 08/20/21 20:56 Tissue - Hip Gram Stain - Final 08/20/21 20:56 Tissue - Hip Wound Culture - Final Proteus mirabilis 08/20/21 20:56 Tissue - Hip Anaerobic Culture - Final Bacteroides fragilis group 08/23/21 06:25 Urine, Catheterized Urine Culture - Final Culture exhibits no growth. 08/20/21 20:56 Tissue - Hip Gram Stain - Final 08/20/21 20:56 Tissue - Hip Wound Culture - Final 08/20/21 20:56 Tissue - Hip Anaerobic Culture - Preliminary No growth in 48 hours. 08/20/21 20:56 Tissue - Hip Gram Stain - Final 08/20/21 20:56 Tissue - Hip Wound Culture - Final No growth aerobically. 08/20/21 20:56 Tissue - Hip Anaerobic Culture - Preliminary No growth in 48 hours. 08/20/21 20:56 Tissue - Hip Gram Stain - Final 08/20/21 20:56 Tissue - Hip Wound Culture - Final No growth aerobically. 08/20/21 20:56 Tissue - Hip Anaerobic Culture - Preliminary No growth in 48 hours. 08/20/21 20:56 Tissue - Hip Gram Stain - Final 08/20/21 20:56 Tissue - Hip Wound Culture - Final No growth aerobically. 08/20/21 20:56 Tissue - Hip Anaerobic Culture - Preliminary No growth in 48 hours. 08/18/21 16:47 Blood Culture (Wb) - Anticubital Left Blood Culture - Final No growth in 5 days. 08/18/21 16:52 Blood Culture (Wb) - Anticubital Right Blood Culture - Final No growth in 5 days. 08/23/21 09:52 Stool Stool Occult Blood (ALYCE) - Final Occult Blood Positive Radiography Diagnostic Testing: Radiology Impression Renal Ultrasound 08/25/21 10:46 IMPRESSION: Normal ultrasound of the kidneys and urinary bladder. Electronically Signed: Manish Zapata MD at 15:13 EDT , Physical Exam Const alert, oriented x3 and no apparent distress Constitutional Narrative: Patient appears frail and older than her stated age General Appearance: cooperative, well kempt and well developed Orientation / Consciousness: awake, oriented to person and oriented to place HEENT normocephalic and moist oral mucous membranes Eyes PERRL, EOMs intact bilaterally and conjunctivae normal Neck nuchal rigidity, supple, no JVD, thyroid normal and no carotid bruits General: trachea midline Resp normal respiratory effort, no retractions, no use of accessory muscles and clear to auscultation bilaterally Auscultation: Negative for rales, rhonchi or wheezes Cardio regular rate, regular rhythm, S1 normal heart sound, S2 normal heart sound, no murmurs, no rub and no gallops GI normal to inspection, nondistended, normoactive bowel sounds, soft to palpation, non-tender and non-distended Skin no rashes or lesions noted General Skin Exam: no breakdown Neuro oriented x3, CN's II-XII intact bilaterally, no focal motor deficits and no sensory deficits noted Sensorium / Orientation: awake and alert Speech: speech normal Psych affect normal Assessment & Plan Assessment/Plan (1) Left hip prosthetic joint infection: PLAN: Plan 1. Infected left hip seroma-antibiotic coverage per infectious diseases-patient is currently on Rocephin. #2 acute kidney injury on a backdrop of chronic kidney disease stage IIIb- etiology may be multifactorial, I stopped the patient's diuretics today and nephrology will see the patient tomorrow, patient will be given IV fluids. #3 coronary artery disease-stable at this time, patient is to remain on her present medications #4 essential hypertension-patient is continue on her present medications #5 hypothyroidism-patient will remain on Synthroid #6 acute anemia secondary to bleeding esophageal ulcer-patient's hemoglobin today was 8.6, CBC will be repeated tomorrow, I do not feel he she needs a blood transfusion at this time, patient underwent an EGD today which showed a bleeding esophageal ulcer, this was treated with a heater probe, patient will remain on Protonix #7 bleeding esophageal ulcer-patient will remain on Protonix #8 gastritis-patient will remain on Protonix #9 esophageal ring-this was not dilated due to the patient being on anticoagulation and having poor nutritional status, gastroenterology recommended not dilating this area. Charges/Coding Visit Charges Inpatient E&M: 39916 Subs Hosp L2
--- NOTE | 2021-08-25 18:09 | PCM.PN.HOSP ---
Subjective Subjective Patient was seen and examined today, I briefly talked with nephrology who is seeing the patient in consultation, they feel that the patient may be dry and recommended giving fluids. Patient's creatinine today was 3.62, I talked with her and her daughter today about her medical status as well as the patient. For now, [facility] will be on [facility] until her creatinine improves. I also talked with infectious diseases today about her medical care. Objective Data Objective Data Vital Signs: Vital Signs Temp Pulse Resp BP Pulse Ox O2 Del Method O2 Flow Rate 97.5 F L 83 18 131/69 H 100 Room Air 2 08/25/21 15:01 08/25/21 15:01 08/25/21 15:01 08/25/21 15:01 08/25/21 15:01 08/25/21 15:01 08/25/21 11:35 Oxygen Flow Rate (L/min) 2 Oxygen Delivery Method Room Air Weight: 81.9 kg Body Mass Index (BMI) 35.4 Intake & Output: Intake and Output for Last 24 Hours 08/23/21 08/24/21 08/25/21 23:59 23:59 23:59 Intake Total 1680 / 1680 600 / 600 1250 / 1250 Output Total 450 / 450 625 / 625 Balance 1230 / 1230 -25 / -25 1250 / 1250 Lab / Micro Data Result Diagrams: 08/25/21 04:19 08/26/21 04:38 Labs: Laboratory Results - last 24 hr 08/25/21 04:19: WBC 9.3, RBC 3.14 L, Hgb 9.2 L, Hct 30.0 L, MCV 95.5, MCH 29.3, MCHC 30.7 L, RDW Std Deviation 65.1 H, RDW Coeff of [place] 18.9 H, Plt Count 216, MPV 10.8, Immature Gran % (Auto) 1.700 H, Neut % (Auto) 75.2 H, Lymph % (Auto) 5.9 L, [place] % (Auto) 12.5 H, Eos % (Auto) 4.3, Baso % (Auto) 0.4, Absolute Neuts (auto) 7.0, Absolute Lymphs (auto) 0.55 L, Nucleated RBC % 0.9, Anisocytosis 2+ 08/25/21 04:19: Sodium 136, Potassium 4.4, Chloride 101, Carbon Dioxide 22.0, Anion Gap 13, BUN 73 H, Creatinine 3.62 H, Estim Creat Clear Calc 14.96, Est GFR (MDRD) Af Amer 15 L, Est GFR (MDRD) Non-Af 13 L, BUN/Creatinine Ratio 20.2 H, Glucose 134 H, Calcium 9.1, Total Bilirubin 0.90, AST 34, ALT 17, Alkaline Phosphatase 280 H, Total Protein 6.2 L, Albumin 2.1 L, Globulin 4.1, Albumin/Globulin Ratio 0.5 L Micro: Microbiology 08/20/21 20:56 Tissue - Hip Gram Stain - Final 08/20/21 20:56 Tissue - Hip Wound Culture - Final Proteus mirabilis 08/20/21 20:56 Tissue - Hip Anaerobic Culture - Final Bacteroides fragilis group 08/23/21 06:25 Urine, Catheterized Urine Culture - Final Culture exhibits no growth. 08/20/21 20:56 Tissue - Hip Gram Stain - Final 08/20/21 20:56 Tissue - Hip Wound Culture - Final 08/20/21 20:56 Tissue - Hip Anaerobic Culture - Preliminary No growth in 48 hours. 08/20/21 20:56 Tissue - Hip Gram Stain - Final 08/20/21 20:56 Tissue - Hip Wound Culture - Final No growth aerobically. 08/20/21 20:56 Tissue - Hip Anaerobic Culture - Preliminary No growth in 48 hours. 08/20/21 20:56 Tissue - Hip Gram Stain - Final 08/20/21 20:56 Tissue - Hip Wound Culture - Final No growth aerobically. 08/20/21 20:56 Tissue - Hip Anaerobic Culture - Preliminary No growth in 48 hours. 08/20/21 20:56 Tissue - Hip Gram Stain - Final 08/20/21 20:56 Tissue - Hip Wound Culture - Final No growth aerobically. 08/20/21 20:56 Tissue - Hip Anaerobic Culture - Preliminary No growth in 48 hours. 08/18/21 16:47 Blood Culture (Wb) - Anticubital Left Blood Culture - Final No growth in 5 days. 08/18/21 16:52 Blood Culture (Wb) - Anticubital Right Blood Culture - Final No growth in 5 days. 08/23/21 09:52 Stool Stool Occult Blood (ALYCE) - Final Occult Blood Positive Radiography Diagnostic Testing: Radiology Impression Renal Ultrasound 08/25/21 10:46 IMPRESSION: Normal ultrasound of the kidneys and urinary bladder. Electronically Signed: Manish Zapata MD at 15:13 EDT , Physical Exam Const alert, oriented x3 and no apparent distress HEENT normocephalic and moist oral mucous membranes Eyes PERRL, EOMs intact bilaterally and conjunctivae normal Neck nuchal rigidity, supple, no JVD, thyroid normal and no carotid bruits General: trachea midline Resp normal respiratory effort, no retractions, no use of accessory muscles and clear to auscultation bilaterally Auscultation: Negative for rales, rhonchi or wheezes Cardio regular rate, regular rhythm, S1 normal heart sound, S2 normal heart sound, no murmurs, no rub and no gallops GI normal to inspection, nondistended, normoactive bowel sounds, soft to palpation, non-tender and non-distended Skin no rashes or lesions noted General Skin Exam: no breakdown Neuro oriented x3, CN's II-XII intact bilaterally, no focal motor deficits and no sensory deficits noted Sensorium / Orientation: awake, alert, oriented to person, oriented to place and oriented to time Speech: speech normal Psych affect normal Assessment & Plan Assessment/Plan (1) Left hip prosthetic joint infection: PLAN: Plan 1. Infected left hip seroma-antibiotic coverage per infectious diseases-patient is currently on Rocephin. #2 acute kidney injury on a backdrop of chronic kidney disease stage IIIb-etiology may be multifactorial, nephrology is participating in her care, patient will continue to be given fluids #3 coronary artery disease-stable at this time, patient is to remain on her present medications #4 essential hypertension-patient is continue on her present medications #5 hypothyroidism-patient will remain on Synthroid #6 acute anemia secondary to bleeding esophageal ulcer-patient's hemoglobin today was 9.2 #7 bleeding esophageal ulcer-patient will remain on Protonix #8 gastritis-patient will remain on Protonix #9 esophageal ring-this was not dilated due to the patient being on anticoagulation and having poor nutritional status, gastroenterology recommended not dilating this area. Charges/Coding Visit Charges Inpatient E&M: 13589 Subs Hosp L2
[2021-08-25] MEDS: Pantoprazole Sodium 40 MG Tablet PO (20:31)
[2021-08-26] VITALS (8 sets, daily range): BP systolic 94–126; BP diastolic 42–70; PULSE 68–98; RESP 12–18; TEMP 36.1–36.6; O2SAT 93–99
[2021-08-26] MEDS: DiphenhydrAMINE 50 MG/ML Syringe 12.5 MG IV (00:40)
[2021-08-26] MEDS: 0.9% Normal Saline 1,000 ML 100 ML IV ×3 (00:40→20:50)
[2021-08-26] MEDS: Levothyroxine 125 MCG Tablet PO (05:07)
[2021-08-26 05:50] LABS: Albumin, Serum 1.9 g/dL (3.2-5.0); BUN 81 mg/dL (7-18); BUN/Creat Ratio 20.9 RATIO (10-20); Calcium,Total 8.9 mg/dL (8.5-10.1); Chloride 103 mmol/L (98-107); Creatinine, Serum 3.87 mg/dL (0.55-1.02); EST Glomerular Filtration Rate 12 mL/min (>60); Est Glom Filt Rate - Afr Amer 14 mL/min (>60); Estimated Creatinine Clearance 13.99 ml/min; Glucose 99 mg/dL (74-106); Phosphorus 4.7 mg/dL (2.5-4.9); Potassium 4.2 mmol/L (3.5-5.1); Sodium Level 133 mmol/L (136-145)
--- NOTE | 2021-08-26 08:39 | PN.RENAL_ITS ---
Subjective Subjective Following for EL on CKD Patient is alert and oriented. Resting in bed. No overnight events. Daughter at bedside. Objective Data Objective Data Vital Signs: Vital Signs Temp Pulse Resp BP Pulse Ox O2 Del Method O2 Flow Rate 97.8 F 98 18 126/70 H 97 Nasal Cannula 2 08/26/21 07:42 08/26/21 07:45 08/26/21 07:45 08/26/21 07:42 08/26/21 07:42 08/26/21 07:45 08/26/21 07:45 Oxygen Flow Rate (L/min) 2 Oxygen Delivery Method Nasal Cannula Weight: 81.9 kg Body Mass Index (BMI) 35.4 Intake & Output: Intake and Output for Last 24 Hours 08/24/21 08/25/21 08/26/21 23:59 23:59 23:59 Intake Total 600 / 600 2250 / 2250 Output Total 625 / 625 Balance -25 / -25 2250 / 2250 Lab / Micro Data Result Diagrams: 08/25/21 04:19 08/26/21 04:38 Labs: Laboratory Results - last 24 hr 08/26/21 04:38: Sodium 133 L, Potassium 4.2, Chloride 103, Carbon Dioxide 19.0 L , BUN 81 H, Creatinine 3.87 H, Estim Creat Clear Calc 13.99, Est GFR (MDRD) Af Amer 14 L, Est GFR (MDRD) Non-Af 12 L, BUN/Creatinine Ratio 20.9 H, Glucose 99, Calcium 8.9, Phosphorus 4.7, Albumin 1.9 L Micro: Microbiology 08/20/21 20:56 Tissue - Hip Gram Stain - Final 08/20/21 20:56 Tissue - Hip Wound Culture - Final 08/20/21 20:56 Tissue - Hip Anaerobic Culture - Final No growth in 5 days. 08/20/21 20:56 Tissue - Hip Gram Stain - Final 08/20/21 20:56 Tissue - Hip Wound Culture - Final No growth aerobically. 08/20/21 20:56 Tissue - Hip Anaerobic Culture - Final No growth in 5 days. 08/20/21 20:56 Tissue - Hip Gram Stain - Final 08/20/21 20:56 Tissue - Hip Wound Culture - Final No growth aerobically. 08/20/21 20:56 Tissue - Hip Anaerobic Culture - Final No growth in 5 days. 08/20/21 20:56 Tissue - Hip Gram Stain - Final 08/20/21 20:56 Tissue - Hip Wound Culture - Final No growth aerobically. 08/20/21 20:56 Tissue - Hip Anaerobic Culture - Final No growth in 5 days. 08/20/21 20:56 Tissue - Hip Gram Stain - Final 08/20/21 20:56 Tissue - Hip Wound Culture - Final Proteus mirabilis 08/20/21 20:56 Tissue - Hip Anaerobic Culture - Final Bacteroides fragilis group 08/23/21 06:25 Urine, Catheterized Urine Culture - Final Culture exhibits no growth. 08/18/21 16:47 Blood Culture (Wb) - Anticubital Left Blood Culture - Final No growth in 5 days. 08/18/21 16:52 Blood Culture (Wb) - Anticubital Right Blood Culture - Final No growth in 5 days. 08/23/21 09:52 Stool Stool Occult Blood (ALYCE) - Final Occult Blood Positive Radiography Diagnostic Testing: Radiology Impression Renal Ultrasound 08/25/21 10:46 IMPRESSION: Normal ultrasound of the kidneys and urinary bladder. Electronically Signed: Manish Zapata MD at 15:13 EDT , Physical Exam Narrative Const: Alert and oriented. No apparent distress HEENT: Normocephalic, oral mucosa and lips moist Cardio: S1, S2, RRR Respiratory: Lung sounds clear anteriorly and posteriorly. No wheezes, rhonchi or rales Extremities: No pitting edema lower legs. Edema in left hip. Wound vac inplace to left hip Assessment & Plan Assessment/Plan (1) Acute kidney injury superimposed on CKD: (2) Left hip prosthetic joint infection: (3) Anemia: (4) HFrEF (heart failure with reduced ejection fraction): PLAN: Plan - Nonoliguric EL on CKD; EL secondary to prolonged effective blood volume depletion likely has progressed now to ATN. Creatinine 1.7 mg/dL on admission and today is up to 3.8 mg/dL. Renal US did not show any hydronephrosis. UA negative for blood, protein 15. Patient is not hypervolemic, non-oliguric, no significant uremic symptoms. Potassium acceptable. Bicarb slightly low but acceptable. At this time there is no acute indication for CONTAINER REPAIRER. I did explain in length with patient and her daughter today if kidney function continues to worsen patient may need CONTAINER REPAIRER; we will have better idea if patient would need CONTAINER REPAIRER likely tomorrow. Both voiced understanding and questions answered. Patient is in agreement for CONTAINER REPAIRER if needed. Recommend strict I&O. We will continue IV fluids another day. Recommend avoiding nephrotoxic agents. - History for heart failure with reduced EF,?estimated ejection fraction of 40 to 45%.? She had been on furosemide 20 mg IV twice daily since admission but this was stopped Tuesday - left hip infection and had been receiving vancomycin.? Her Vanco trough and random Vanco levels were slightly elevated. Off Vanco and currently on ceftriaxone for antibiotic coverage - Patient has CKD stage III/IV with risk factors including hypertension, coronary artery disease and heart failure.? Suspect chronic fluctuating cre atinine levels from cardiorenal syndrome physiology.? Baseline serum creatinine ranging around 1.7 to 2 mg/dL. - Blood pressures acceptable on metoprolol twice daily - Patient did have a stool positive for occult blood, seen by GI.? Hemoglobin was 11.4 on admission and is currently 9.2.? She did have upper GI with findings of bleeding esophageal ulcer which was treated with heater probe and biopsied, also has small hiatal hernia and gastritis which was biopsied.? Patient is on PPI. -We will continue monitor renal function, monitor for renal recovery. Labs ordered for tomorrow.
--- NOTE | 2021-08-26 08:40 | WOUNDNOTE ---
In to recheck the wound VAC dressing. dressing is intact with good seal noted at 75mmHg. there is a small amount of drainage noted in the canister. patient has a fine red rash noted to her back. pt states the rash started last evening. nursing and MD are both aware. next VAC change is tomorrow 08/27/21. pt denies further needs at this time.
[2021-08-26] MEDS: APIXABAN 2.5 MG TABLET PO ×2 (10:30→21:47)
[2021-08-26] MEDS: Menthol/Lanolin/Calamine/Znox 113 GM Tube 1 APPLIC TOPICAL ×2 (10:30→20:50)
[2021-08-26] MEDS: Metoprolol Tartrate 25 MG Tablet PO (10:31)
[2021-08-26] MEDS: Pantoprazole Sodium 40 MG Tablet PO ×2 (10:31→21:47)
[2021-08-26] MEDS: Clopidogrel Bisulfate 75 MG Tablet PO (10:31)
[2021-08-26] MEDS: Cholecalciferol (VIT D3) 25 MCG TABLET (1,000 UNITS) PO (10:32)
[2021-08-26] MEDS: Gabapentin 300 MG Capsule PO (10:37)
--- NOTE | 2021-08-26 11:02 | NURSING ---
awaiting expert/MD opinion on decision to give next dose of rocephin iv scheduled at 1000
[2021-08-26] MEDS: Ferrous Sulfate 325 MG Tablet PO ×2 (12:45→17:28)
[2021-08-26] MEDS: Ascorbic Acid 500 MG Tablet PO ×2 (12:46→17:28)
[2021-08-26] MEDS: Calcium (Elemental) 500 MG Tablet PO ×2 (12:46→17:28)
[2021-08-26] MEDS: Multivitamins,Ther W-Minerals Tablet 1 TABLET PO (12:46)
--- NOTE | 2021-08-26 14:04 | PCM.PN.ID ---
Physical Exam Narrative Feeling ok. No fever. Not making urine. Developed rash yesterday, no itching. Const alert and no apparent distress Resp normal air movement and clear to auscultation bilaterally Cardio regular rate and regular rhythm GI soft to palpation, non-tender and non-distended Skin no rashes or lesions noted ID ID: Route of nutrition/ use of supplements: [] Nutritional Intake: [] IV Site: [] [place] Catheter: [] Assessment & Plan Assessment/Plan (1) Left hip prosthetic joint infection: PLAN: s/p OR 08/20/[address] Nettles for I&D and revision of L hip. One surg cx with proteus and bacteroides. Now course complicated by worsening EL. 08/24 changed abx to ceftriaxone. Neph consulted. Plan on 6 weeks iv abx, stop date 10/01/21. Now with rash, will change ceftriaxone to janay. Will follow, d/w primary team.
--- NOTE | 2021-08-26 17:19 | PN.ORTHO_ITS ---
Subjective Subjective Patient remains in the hospital. Orthopedically she reports no pain in the hip. She continues to have the wound VAC. There is some serosanguineous drainage in the canister. However there is minimal fluid in the tubing today. She notes she feels weak likely related to her renal disease. Patient is seen decline in her renal function while in the hospital. Additionally in order to protect her renal function she has had change in antibiotics which has resulted in a rash. Antibiotics were changed again. 1 culture from the superficial sinus tract subcutaneous deep area superficial to the fascia was positive. The remainder of the deep cultures were negative. Objective Data Objective Data Vital Signs: Vital Signs Temp Pulse Resp BP Pulse Ox O2 Del Method O2 Flow Rate 97.9 F 75 18 113/60 93 Room Air 2 08/26/21 13:49 08/26/21 13:49 08/26/21 13:49 08/26/21 13:49 08/26/21 13:49 08/26/21 13:49 08/26/21 07:45 Oxygen Flow Rate (L/min) 2 Oxygen Delivery Method Room Air Weight: 180 lb 8.937 oz Body Mass Index (BMI) 35.4 Intake & Output: Intake and Output for Last 24 Hours 08/24/21 08/25/21 08/26/21 23:59 23:59 23:59 Intake Total 600 / 600 2250 / 2250 3215.34 / 3215.34 Output Total 625 / 625 100 / 100 Balance -25 / -25 2250 / 2250 3115.34 / 3115.34 Lab / Micro Data Attestation: I reviewed the patient's lab results. Result Diagrams: 08/25/21 04:19 08/26/21 04:38 Labs: Laboratory Results - last 24 hr 08/26/21 04:38: Sodium 133 L, Potassium 4.2, Chloride 103, Carbon Dioxide 19.0 L , BUN 81 H, Creatinine 3.87 H, Estim Creat Clear Calc 13.99, Est GFR (MDRD) Af Amer 14 L, Est GFR (MDRD) Non-Af 12 L, BUN/Creatinine Ratio 20.9 H, Glucose 99, Calcium 8.9, Phosphorus 4.7, Albumin 1.9 L Micro: Microbiology 08/20/21 20:56 Tissue - Hip Gram Stain - Final 08/20/21 20:56 Tissue - Hip Wound Culture - Final 08/20/21 20:56 Tissue - Hip Anaerobic Culture - Final No growth in 5 days. 08/20/21 20:56 Tissue - Hip Gram Stain - Final 08/20/21 20:56 Tissue - Hip Wound Culture - Final No growth aerobically. 08/20/21 20:56 Tissue - Hip Anaerobic Culture - Final No growth in 5 days. 08/20/21 20:56 Tissue - Hip Gram Stain - Final 08/20/21 20:56 Tissue - Hip Wound Culture - Final No growth aerobically. 08/20/21 20:56 Tissue - Hip Anaerobic Culture - Final No growth in 5 days. 08/20/21 20:56 Tissue - Hip Gram Stain - Final 08/20/21 20:56 Tissue - Hip Wound Culture - Final No growth aerobically. 08/20/21 20:56 Tissue - Hip Anaerobic Culture - Final No growth in 5 days. 08/20/21 20:56 Tissue - Hip Gram Stain - Final 08/20/21 20:56 Tissue - Hip Wound Culture - Final Proteus mirabilis 08/20/21 20:56 Tissue - Hip Anaerobic Culture - Final Bacteroides fragilis group 08/23/21 06:25 Urine, Catheterized Urine Culture - Final Culture exhibits no growth. 08/18/21 16:47 Blood Culture (Wb) - Anticubital Left Blood Culture - Final No growth in 5 days. 08/18/21 16:52 Blood Culture (Wb) - Anticubital Right Blood Culture - Final No growth in 5 days. 08/23/21 09:52 Stool Stool Occult Blood (ALYCE) - Final Occult Blood Positive Physical Exam Narrative Patient appears weak and tired. Const alert and oriented x3 Extremity Extremity Narrative: Left lower extremity: Wound VAC dressing is clean dry and intact with minimal drainage in the tubing. There is some mild drainage in the canister serosang uineous in nature. Sensations intact to light touch saphenous, sural, superficial peroneal, deep peroneal, and tibial distributions Motors intact EHL, DF, PF calves are soft and supple Assessment & Plan Assessment/Plan (1) Left hip prosthetic joint infection: PLAN: Patient's cultures superficially were positive. Deep so far been negative. Patient notes significant improvement in her pain after removing the previous implant and placing a more well fixed implant. She remains weak and has numerous medical issues that have arose in since admission. Namely her renal disease is worsening. Nephrology has been consulted. Infectious disease continues to manage her antibiotic regimen. Despite no positive deep space c ultures to recommend continued treatment for periprosthetic joint infection as previous implant was loose without ingrowth which is also concerning for surrounding infection. We will continue to follow peripherally recommend follow-up in office at 2-week postop visit. Disposition: Plan is to discharge patient to transitional care unit when medically appropriate. Appears orthopedically stable, please call orthopedics for any further questions or concerns. [facility] Office:
--- NOTE | 2021-08-26 19:38 | PN.HOSP_ITS ---
Subjective Subjective Patient was seen and examined today, she developed a diffuse rash over her trunk and upper legs after Rocephin was administered this morning, this was discontinued by myself, infectious diseases added meropenem on today. Patient's creatinine is slightly higher than it was yesterday, I talked briefly with orthopedic surgery about her care. Objective Data Objective Data Vital Signs: Vital Signs Temp Pulse Resp BP Pulse Ox O2 Del Method O2 Flow Rate 97.9 F 75 18 113/60 93 Room Air 2 08/26/21 13:49 08/26/21 13:49 08/26/21 13:49 08/26/21 13:49 08/26/21 13:49 08/26/21 13:49 08/26/21 07:45 Oxygen Flow Rate (L/min) 2 Oxygen Delivery Method Room Air Weight: 81.9 kg Body Mass Index (BMI) 35.4 Intake & Output: Intake and Output for Last 24 Hours 08/24/21 08/25/21 08/26/21 23:59 23:59 23:59 Intake Total 600 / 600 2250 / 2250 3512.34 / 3512.34 Output Total 625 / 625 100 / 100 Balance -25 / -25 2250 / 2250 3412.34 / 3412.34 Lab / Micro Data Result Diagrams: 08/25/21 04:19 08/26/21 04:38 Labs: Laboratory Results - last 24 hr 08/26/21 04:38: Sodium 133 L, Potassium 4.2, Chloride 103, Carbon Dioxide 19.0 L , BUN 81 H, Creatinine 3.87 H, Estim Creat Clear Calc 13.99, Est GFR (MDRD) Af Amer 14 L, Est GFR (MDRD) Non-Af 12 L, BUN/Creatinine Ratio 20.9 H, Glucose 99, Calcium 8.9, Phosphorus 4.7, Albumin 1.9 L Micro: Microbiology 08/20/21 20:56 Tissue - Hip Gram Stain - Final 08/20/21 20:56 Tissue - Hip Wound Culture - Final 08/20/21 20:56 Tissue - Hip Anaerobic Culture - Final No growth in 5 days. 08/20/21 20:56 Tissue - Hip Gram Stain - Final 08/20/21 20:56 Tissue - Hip Wound Culture - Final No growth aerobically. 08/20/21 20:56 Tissue - Hip Anaerobic Culture - Final No growth in 5 days. 08/20/21 20:56 Tissue - Hip Gram Stain - Final 08/20/21 20:56 Tissue - Hip Wound Culture - Final No growth aerobically. 08/20/21 20:56 Tissue - Hip Anaerobic Culture - Final No growth in 5 days. 08/20/21 20:56 Tissue - Hip Gram Stain - Final 08/20/21 20:56 Tissue - Hip Wound Culture - Final No growth aerobically. 08/20/21 20:56 Tissue - Hip Anaerobic Culture - Final No growth in 5 days. 08/20/21 20:56 Tissue - Hip Gram Stain - Final 08/20/21 20:56 Tissue - Hip Wound Culture - Final Proteus mirabilis 08/20/21 20:56 Tissue - Hip Anaerobic Culture - Final Bacteroides fragilis group 08/23/21 06:25 Urine, Catheterized Urine Culture - Final Culture exhibits no growth. 08/18/21 16:47 Blood Culture (Wb) - Anticubital Left Blood Culture - Final No growth in 5 days. 08/18/21 16:52 Blood Culture (Wb) - Anticubital Right Blood Culture - Final No growth in 5 days. 08/23/21 09:52 Stool Stool Occult Blood (ALYCE) - Final Occult Blood Positive Physical Exam Narrative alert, oriented x3 and no apparent distress HEENT normocephalic and moist oral mucous membranes Eyes PERRL, EOMs intact bilaterally and conjunctivae normal Neck nuchal rigidity, supple, no JVD, thyroid normal and no carotid bruits General: trachea midline Resp normal respiratory effort, no retractions, no use of accessory muscles and clear to auscultation bilaterally Auscultation: Negative for rales, rhonchi or wheezes Cardio regular rate, regular rhythm, S1 normal heart sound, S2 normal heart sound, no murmurs, no rub and no gallops GI normal to inspection, nondistended, normoactive bowel sounds, soft to palpation, non-tender and non-distended Skin no rashes or lesions noted General Skin Exam: no breakdown Neuro oriented x3, CN's II-XII intact bilaterally, no focal motor deficits and no sensory deficits noted Sensorium / Orientation: awake, alert, oriented to person, oriented to place and oriented to time Speech: speech normal Psych affect normal Const alert, oriented x3 and no apparent distress Constitutional Narrative: Patient appears frail and older than her stated age General Appearance: cooperative, well kempt and well developed Orientation / Consciousness: awake, oriented to person and oriented to place HEENT normocephalic and moist oral mucous membranes Eyes PERRL, EOMs intact bilaterally and conjunctivae normal Neck nuchal rigidity, supple, no JVD, thyroid normal and no carotid bruits General: trachea midline Resp normal respiratory effort, no retractions, no use of accessory muscles and clear to auscultation bilaterally Auscultation: Negative for rales, rhonchi or wheezes Cardio regular rate, regular rhythm, S1 normal heart sound, S2 normal heart sound, no murmurs, no rub and no gallops GI normal to inspection, nondistended, normoactive bowel sounds, soft to palpation, non-tender and non-distended Skin no rashes or lesions noted General Skin Exam: no breakdown Neuro oriented x3, CN's II-XII intact bilaterally, no focal motor deficits and no sensory deficits noted Sensorium / Orientation: awake, alert, oriented to person, oriented to place and oriented to time Speech: speech normal Psych affect normal Assessment & Plan Assessment/Plan (1) Left hip prosthetic joint infection: PLAN: Plan 1. Infected left hip seroma-antibiotic coverage per infectious diseases-patient is currently on meropenem now due to a possible drug reaction from Rocephin. #2 acute kidney injury on a backdrop of chronic kidney disease stage IIIb- etiology may be multifactorial, nephrology is participating in her care, patient will continue to be given fluids, renal profile will be performed tomorrow #3 coronary artery disease-stable at this time, patient is to remain on her present medications #4 essential hypertension-patient is continue on her present medications #5 hypothyroidism-patient will remain on Synthroid #6 acute anemia secondary to bleeding esophageal ulcer-CBC will be repeated tomorrow #7 bleeding esophageal ulcer-patient will remain on Protonix #8 gastritis-patient will remain on Protonix #9 esophageal ring-this was not dilated due to the patient being on anticoagulation and having poor nutritional status, gastroenterology recommended not dilating this area. Charges/Coding Visit Charges Inpatient E&M: 74770 Subs Hosp L2
[2021-08-26] MEDS: Senna/Docusate Sodium 1 Tablet 2 TABLET PO (21:47)
[2021-08-27] VITALS (7 sets, daily range): BP systolic 96–150; BP diastolic 44–60; PULSE 67–88; RESP 12–18; TEMP 36.3–36.8; O2SAT 92–97
[2021-08-27 05:34] LABS: Absolute Lymphocyte Count 1.13 X10^3/uL (0.83-4.51); Absolute Neutrophil Count 7.1 X10^3/uL (2.0-7.7); Basophil# 0.04 X10^3/uL; Basophil% 0.4 % (0-1); Eosinophil# 0.45 X10^3/uL; Eosinophils% 4.6 % (0-5); Hemoglobin 9.2 g/dL (12.0-15.0); Lymphocyte # 1.13 X10^3/ul (0.83-4.51); Lymphocyte % 11.7 % (19-41); Mean Corp Hgb Conc 30.7 g/dL (32-36); Mean Corpuscular Hgb 29.5 pg (27.0-32.0); Mean Corpuscular Volume 96.2 fL (81-99); Mean Platelet Vol. 10.7 fl (6.2-12.0); Monocyte# 0.62 X10^3/uL; Monocyte% 6.4 % (0-10); NRBC Flagged by Analyzer 1.4 % (0-5); Neutrophil # 7.05 X10^3/uL (2.7-7.7); Neutrophil % 72.8 % (47-70); POSITIVE MORPHOLOGY YES; Platelet Count 202 K/mm3 (150-450); RBC Distribution Width CV 18.9 % (11.6-14.6); RBC Distribution Width SD 65.7 fl (35.1-43.9); Red Blood Count 3.12 M/mm3 (4.2-5.4); White Blood Count 9.7 K/mm3 (4.4-11.0)
[2021-08-27] MEDS: Levothyroxine 125 MCG Tablet PO (05:41)
[2021-08-27] MEDS: 0.9% Normal Saline 1,000 ML 100 ML IV ×2 (05:41→17:42)
[2021-08-27 05:48] LABS: Anisocytosis 1+; Differential Indicated SCAN CRITERIA MET
[2021-08-27 06:09] LABS: Albumin, Serum 1.9 g/dL (3.2-5.0); BUN 86 mg/dL (7-18); BUN/Creat Ratio 21.5 RATIO (10-20); Calcium,Total 8.5 mg/dL (8.5-10.1); Chloride 103 mmol/L (98-107); EST Glomerular Filtration Rate 11 mL/min (>60); Est Glom Filt Rate - Afr Amer 14 mL/min (>60); Estimated Creatinine Clearance 13.54 ml/min; Glucose 107 mg/dL (74-106); Phosphorus 4.4 mg/dL (2.5-4.9); Potassium 4.4 mmol/L (3.5-5.1); Sodium Level 133 mmol/L (136-145)
[2021-08-27] MEDS: Cholecalciferol (VIT D3) 25 MCG TABLET (1,000 UNITS) PO (09:15)
[2021-08-27] MEDS: Clopidogrel Bisulfate 75 MG Tablet PO (09:15)
[2021-08-27] MEDS: Pantoprazole Sodium 40 MG Tablet PO ×2 (09:15→21:15)
[2021-08-27] MEDS: Senna/Docusate Sodium 1 Tablet 2 TABLET PO (09:16)
[2021-08-27] MEDS: Psyllium 1 PACKET PO (09:16)
[2021-08-27] MEDS: APIXABAN 2.5 MG TABLET PO ×2 (09:16→21:14)
--- NOTE | 2021-08-27 09:17 | WOUNDNOTE ---
wound photo: left hip
[2021-08-27] MEDS: Menthol/Lanolin/Calamine/Znox 113 GM Tube 1 APPLIC TOPICAL ×2 (09:19→21:10)
[2021-08-27] MEDS: Gabapentin 300 MG Capsule PO (09:25)
--- NOTE | 2021-08-27 10:19 | PCM.PN.HOSP ---
Documented by User: Claudette Mai NP, SINGLE ENDING MACHINE OPERATOR-C 08/27/21 10:48 Subjective Subjective Patient seen and examined. Reports ongoing rash. Denies pruritus. Denies fever, chills. Objective Data Objective Data Vital Signs: Vital Signs Temp Pulse Resp BP Pulse Ox O2 Del Method O2 Flow Rate 97.6 F L 67 16 96/44 L 96 Room Air 2 08/27/21 08:45 08/27/21 08:45 08/27/21 08:45 08/27/21 08:45 08/27/21 08:45 08/27/21 08:45 08/26/21 07:45 Oxygen Flow Rate (L/min) 2 Oxygen Delivery Method Room Air Weight: 180 lb 8.937 oz Body Mass Index (BMI) 35.4 Intake & Output: Intake and Output for Last 24 Hours 08/25/21 08/26/21 08/27/21 23:59 23:59 23:59 Intake Total 2250 / 2250 4155.67 / 4155.67 885 / 885 Output Total 100 / 350 250 / 250 Balance 2250 / 2250 4055.67 / 3805.67 635 / 635 Lab / Micro Data Result Diagrams: 08/27/21 04:48 08/27/21 04:48 Labs: Laboratory Results - last 24 hr 08/27/21 04:48: Sodium 133 L, Potassium 4.4, Chloride 103, Carbon Dioxide 17.0 L, BUN 86 H, Creatinine 4.00 H, Estim Creat Clear Calc 13.54, Est GFR (MDRD) Af Amer 14 L, Est GFR (MDRD) Non-Af 11 L, BUN/Creatinine Ratio 21.5 H, Glucose 107 H, Calcium 8.5, Phosphorus 4.4, Albumin 1.9 L 08/27/21 04:48: WBC 9.7, RBC 3.12 L, Hgb 9.2 L, Hct 30.0 L, MCV 96.2, MCH 29.5, MCHC 30.7 L, RDW Std Deviation 65.7 H, RDW Coeff of [place]atha 18.9 H, Plt Count 202, MPV 10.7, Immature Gran % (Auto) 4.100 H, Neut % (Auto) 72.8 H, Lymph % (Auto) 11.7 L, [place] % (Auto) 6.4, Eos % (Auto) 4.6, Baso % (Auto) 0.4, Absolute Neuts (auto) 7.1, Absolute Lymphs (auto) 1.13, Nucleated RBC % 1.4, Anisocytosis 1+ Micro: Microbiology 08/20/21 20:56 Tissue - Hip Gram Stain - Final 08/20/21 20:56 Tissue - Hip Wound Culture - Final 08/20/21 20:56 Tissue - Hip Anaerobic Culture - Final No growth in 5 days. 08/20/21 20:56 Tissue - Hip Gram Stain - Final 08/20/21 20:56 Tissue - Hip Wound Culture - Final No growth aerobically. 08/20/21 20:56 Tissue - Hip Anaerobic Culture - Final No growth in 5 days. 08/20/21 20:56 Tissue - Hip Gram Stain - Final 08/20/21 20:56 Tissue - Hip Wound Culture - Final No growth aerobically. 08/20/21 20:56 Tissue - Hip Anaerobic Culture - Final No growth in 5 days. 08/20/21 20:56 Tissue - Hip Gram Stain - Final 08/20/21 20:56 Tissue - Hip Wound Culture - Final No growth aerobically. 08/20/21 20:56 Tissue - Hip Anaerobic Culture - Final No growth in 5 days. 08/20/21 20:56 Tissue - Hip Gram Stain - Final 08/20/21 20:56 Tissue - Hip Wound Culture - Final Proteus mirabilis 08/20/21 20:56 Tissue - Hip Anaerobic Culture - Final Bacteroides fragilis group 08/23/21 06:25 Urine, Catheterized Urine Culture - Final Culture exhibits no growth. 08/18/21 16:47 Blood Culture (Wb) - Anticubital Left Blood Culture - Final No growth in 5 days. 08/18/21 16:52 Blood Culture (Wb) - Anticubital Right Blood Culture - Final No growth in 5 days. 08/23/21 09:52 Stool Stool Occult Blood (ALYCE) - Final Occult Blood Positive Physical Exam Const alert and oriented x3 Orientation / Consciousness: awake, oriented to person, oriented to place and oriented to time HEENT normocephalic and moist oral mucous membranes Eyes PERRL, EOMs intact bilaterally and conjunctivae normal Neck no lymphadenopathy Resp normal respiratory effort and clear to auscultation bilaterally Cardio regular rate, regular rhythm and no murmurs Peripheral Pulses: pulses 2+ throughout GI normal to inspection, nondistended, normoactive bowel sounds, non-tender and non-distended Extremity normal to inspection Skin no rashes or lesions noted Skin Narrative: Left hip wound VAC/dressing in place. Diffuse erythematous rash. Nonpruritic. Lesions: no lesions Rashes: no rashes Trauma: no lacerations or abrasions Neuro CN's II-XII intact bilaterally, no focal motor deficits, no sensory deficits noted and deep tendon reflexes 2+ bilaterally Psych mental status grossly normal and affect normal Assessment & Plan Assessment/Plan (1) Left hip prosthetic joint infection: PLAN: Plan 1. Infected left hip seroma/prosthetic joint infection-ID and orthopedic medicine following. Underwent irrigation and debridement of left hip infected seroma 08/20/2021. IV Rocephin changed to IV meropenem due to rash. Continues to have rash however not worsened from prior. 2. Acute kidney injury on chronic kidney disease stage IIIb-nephrology consulted. Hold nephrotoxic regimen. IV fluids. Renal ultrasound unremarkable. Creatinine trending up. Further recommendations per nephrology. 3. CAD-on Plavix, metoprolol. Allergy to statin. 4. Hypertension-stable, continue current regimen. 5. Hypothyroidism-continue Synthroid regimen. 6. Acute blood loss anemia secondary to upper GI bleed-underwent EGD 08/24/2021 which demonstrated bleeding esophageal ulcer, small hiatal hernia, gastritis, esophageal ring which was not dilated due to patient being on anticoagulation. Continue PPI. CBC stable. DVT prophylaxis-Eliqu This patient was seen by VANE Ames under the supervision of Dr. Mata. Discharge planning: Plan on SNF when medically stable with ongoing IV antibiotics with stop date 10/01/2021. Time spent examining patient, reviewing data and subsequent management of care: 15 minutes Documented by User: Dr. Wander Mata DO 08/27/21 15:09 Objective Data Lab / Micro Data Result Diagrams: 08/27/21 04:48 08/27/21 04:48 Assessment & Plan Assessment/Plan (1) Left hip prosthetic joint infection: Charges/Coding Addendum Addendum: Seen and examined independently of Claudette Mai today, patient had some shortness of breath today, chest x-ray was obtained which showed some mild CHF with right basilar atelectasis and blunting of the right costophrenic angle. I talked with nephrology concerning this, they recommended decreasing fluid administration and did not recommend administration of any Lasix at this time. alert, oriented x3 and no apparent distress HEENT normocephalic and moist oral mucous membranes Eyes PERRL, EOMs intact bilaterally and conjunctivae normal Neck nuchal rigidity, supple, no JVD, thyroid normal and no carotid bruits General: trachea midline Resp normal respiratory effort, no retractions, no use of accessory muscles and clear to auscultation bilaterally Auscultation: Negative for rales, rhonchi or wheezes Cardio regular rate, regular rhythm, S1 normal heart sound, S2 normal heart sound, no murmurs, no rub and no gallops GI normal to inspection, nondistended, normoactive bowel sounds, soft to palpation, non-tender and non-distended Skin no rashes or lesions noted General Skin Exam: no breakdown Neuro oriented x3, CN's II-XII intact bilaterally, no focal motor deficits and no sensory deficits noted Sensorium / Orientation: awake, alert, oriented to person, oriented to place and oriented to time Speech: speech normal Psych affect normal 1.? Infected left hip seroma-antibiotic coverage per infectious diseases-patient is currently on meropenem now due to a possible drug reaction from Rocephin. #2 acute kidney injury on a backdrop of chronic kidney disease stage IIIb-etiology may be multifactorial, nephrology is participating in her care, patient will continue to be given fluids at a lower rate, renal profile will be performed tomorrow #3 coronary artery disease-stable at this time, patient is to remain on her present medications #4 essential hypertension-patient is continue on her present medications #5 hypothyroidism-patient will remain on Synthroid #6 acute anemia secondary to bleeding esophageal ulcer-CBC will be repeated tomorrow #7 bleeding esophageal ulcer-patient will remain on Protonix #8 gastritis-patient will remain on Protonix #9 esophageal ring-this was not dilated due to the patient being on anticoagulation and having poor nutritional status, gastroenterology recommended not dilating this area. #10 dyspnea-probably secondary to mild systolic CHF-patient's fluids will be decreased, nephrology does not feel that Lasix is warranted at this time and due to the fact the patient's pulse ox is above 90% on room air, I would rather give the patient continued fluids to see if her renal function improves. #11 mild pulmonary hypertension-complicates care, management, recovery, and prognosis. I have reviewed Claudette Sergei's progress note including her medical assessment and plan of care and with the above additions endorse it. Total clinical time spent by myself addressing the patient's medical issues, reviewing the data, and collaborating with patient's care team: 25 minutes Visit Charges Inpatient E&M: 66867 Subs Hosp L3
--- NOTE | 2021-08-27 10:19 | PCM.PN.ID ---
Physical Exam Narrative Feeling ok, no fever, no itching. Was told redness is worse. Const alert and no apparent distress Resp normal air movement and clear to auscultation bilaterally Cardio regular rate and regular rhythm GI soft to palpation, non-tender and non-distended Skin Skin Narrative: increased erythema on trunk ID ID: Route of nutrition/ use of supplements: [] Nutritional Intake: [] IV Site: [] Uhdson Catheter: [] Assessment & Plan Assessment/Plan (1) Left hip prosthetic joint infection: PLAN: s/p OR 08/20/[address] Nettles for I&D and revision of L hip. One surg cx with proteus and bacteroides. Now course complicated by worsening EL. 08/24 changed abx to ceftriaxone. Neph consulted. Plan on 6 weeks iv abx, stop date 10/01/21. Now with rash, 08/26 changed ceftriaxone to janay. Will follow
--- NOTE | 2021-08-27 12:30 | RAD_ITS ---
STUDY: X-RAY CHEST REASON FOR EXAM: Female, 86 years old. CHF. TECHNIQUE: Single AP portable view of the chest. COMPARISON: Comparison is made with prior study of 04/29/2020. FINDINGS: Impression congestion and mild degree of CHF with superimposed atelectasis and/or scarring at the lung bases worse on the right side. Blunting of the right costophrenic angle. Sternal cerclage wires and vascular clips are present from a prior sternotomy and coronary artery bypass graft procedure (CABG). Normal mediastinum and seun. Normal visualized pulmonary arteries. There is atherosclerotic tortuosity of the aortic arch and descending thoracic aorta. Normal visualized thoracic spine. There is degenerative osteoarthritis of the bilateral shoulders. There is no demonstrated abnormality of the visualized soft tissue structures of the upper abdomen. RAD/Chest 1 View (Portable) IMPRESSION: Mild degree of CHF with right basilar atelectasis and blunting of the right costophrenic angle. Electronically Signed: Manish Zapata MD at 12:58 EDT ,
--- NOTE | 2021-08-27 13:38 | PN.RENAL_ITS ---
Subjective Subjective Resting quietly, sitting up in bed. Denies any complaints. Daughter at bedside. No overnight events. States had diarrhea earlier this am. Denies any nausea or vomiting. Reports has fair appetite. Objective Data Objective Data Vital Signs: Vital Signs Temp Pulse Resp BP Pulse Ox O2 Del Method O2 Flow Rate 97.6 F L 67 16 96/44 L 97 Room Air 2 08/27/21 08:45 08/27/21 08:45 08/27/21 08:45 08/27/21 08:45 08/27/21 11:16 08/27/21 08:45 08/26/21 07:45 Oxygen Flow Rate (L/min) 2 Oxygen Delivery Method Room Air Weight: 81.9 kg Body Mass Index (BMI) 35.4 Intake & Output: Intake and Output for Last 24 Hours 08/25/21 08/26/21 08/27/21 23:59 23:59 23:59 Intake Total 2250 / 2250 4155.67 / 4155.67 945 / 945 Output Total 100 / 350 500 / 500 Balance 2250 / 2250 4055.67 / 3805.67 445 / 445 Lab / Micro Data Result Diagrams: 08/27/21 04:48 08/27/21 04:48 Labs: Laboratory Results - last 24 hr 08/27/21 04:48: Sodium 133 L, Potassium 4.4, Chloride 103, Carbon Dioxide 17.0 L , BUN 86 H, Creatinine 4.00 H, Estim Creat Clear Calc 13.54, Est GFR (MDRD) Af Amer 14 L, Est GFR (MDRD) Non-Af 11 L, BUN/Creatinine Ratio 21.5 H, Glucose 107 H, Calcium 8.5, Phosphorus 4.4, Albumin 1.9 L 08/27/21 04:48: WBC 9.7, RBC 3.12 L, Hgb 9.2 L, Hct 30.0 L, MCV 96.2, MCH 29.5, MCHC 30.7 L, RDW Std Deviation 65.7 H, RDW Coeff of [place] 18.9 H, Plt Count 202, MPV 10.7, Immature Gran % (Auto) 4.100 H, Neut % (Auto) 72.8 H, Lymph % (Auto) 11.7 L, [place] % (Auto) 6.4, Eos % (Auto) 4.6, Baso % (Auto) 0.4, Absolute Neuts (auto) 7.1, Absolute Lymphs (auto) 1.13, Nucleated RBC % 1.4, Anisocytosis 1+ Micro: Microbiology 08/20/21 20:56 Tissue - Hip Gram Stain - Final 08/20/21 20:56 Tissue - Hip Wound Culture - Final 08/20/21 20:56 Tissue - Hip Anaerobic Culture - Final No growth in 5 days. 08/20/21 20:56 Tissue - Hip Gram Stain - Final 08/20/21 20:56 Tissue - Hip Wound Culture - Final No growth aerobically. 08/20/21 20:56 Tissue - Hip Anaerobic Culture - Final No growth in 5 days. 08/20/21 20:56 Tissue - Hip Gram Stain - Final 08/20/21 20:56 Tissue - Hip Wound Culture - Final No growth aerobically. 08/20/21 20:56 Tissue - Hip Anaerobic Culture - Final No growth in 5 days. 08/20/21 20:56 Tissue - Hip Gram Stain - Final 08/20/21 20:56 Tissue - Hip Wound Culture - Final No growth aerobically. 08/20/21 20:56 Tissue - Hip Anaerobic Culture - Final No growth in 5 days. 08/20/21 20:56 Tissue - Hip Gram Stain - Final 08/20/21 20:56 Tissue - Hip Wound Culture - Final Proteus mirabilis 08/20/21 20:56 Tissue - Hip Anaerobic Culture - Final Bacteroides fragilis group 08/23/21 06:25 Urine, Catheterized Urine Culture - Final Culture exhibits no growth. 08/18/21 16:47 Blood Culture (Wb) - Anticubital Left Blood Culture - Final No growth in 5 days. 08/18/21 16:52 Blood Culture (Wb) - Anticubital Right Blood Culture - Final No growth in 5 days. 08/23/21 09:52 Stool Stool Occult Blood (ALYCE) - Final Occult Blood Positive Radiography Diagnostic Testing: Radiology Impression Chest X-Ray 08/27/21 12:30 IMPRESSION: Mild degree of CHF with right basilar atelectasis and blunting of the right costophrenic angle. Electronically Signed: Manish Zapata MD at 12:58 EDT , Physical Exam Narrative Const: Alert and oriented. No apparent distress HEENT: Normocephalic, oral mucosa and lips moist Cardio: S1, S2, RRR Respiratory: Lung sounds clear anteriorly and posteriorly. No wheezes, rhonchi or rales noted Extremities: No pitting edema lower legs. Edema in left hip. Wound vac in place to left hip Assessment & Plan Assessment/Plan (1) Acute kidney injury superimposed on CKD: (2) Left hip prosthetic joint infection: (3) Anemia: (4) HFrEF (heart failure with reduced ejection fraction): PLAN: Plan - Nonoliguric EL on CKD; EL secondary to prolonged effective blood volume depletion likely has progressed now to ATN. Creatinine 1.7 mg/dL on admission and today is up to 4.0 mg/dL. Renal US did not show any hydronephrosis. UA negative for blood, protein 15. Patient is not hypervolemic, non-oliguric, no significant uremic symptoms. UOP looks to be picking up. Potassium acceptable. Bicarb slightly low but acceptable. At this time there is no acute indication for CARPENTER APPRENTICE. I did explain in length with patient and her daughter today if kidney function worsens patient may need CARPENTER APPRENTICE; we will have better idea if patient would need CARPENTER APPRENTICE likely tomorrow. Both voiced understanding and questions answered. Patient is in agreement for CARPENTER APPRENTICE if needed. Recommend strict I&O. Recommend avoiding nephrotoxic agents. -CXR reviewed from today: mild degree of CHF, will decrease IVF rate. Bps slightly low and there are holding parameters on lopressor - History for heart failure with reduced EF,?estimated ejection fraction of 40 to 45%.? She had been on furosemide 20 mg IV twice daily since admission but this was stopped Tuesday - left hip infection and had been receiving vancomycin.? Her Vanco trough and random Vanco levels were slightly elevated. Off Vanco and currently on ceftriaxone for antibiotic coverage - metabolic acidosis likely from EL and diarrhea. Will follow bicarb trends. - Patient has CKD stage III/IV with risk factors including hypertension, coronary artery disease and heart failure.? Suspect chronic fluctuating creatinine levels from cardiorenal syndrome physiology.? Baseline serum creatinine ranging around 1.7 to 2 mg/dL. - Patient did have a stool positive for occult blood, seen by GI.? Hemoglobin was 11.4 on admission and is currently 9.2.? She did have upper GI with findings of bleeding esophageal ulcer which was treated with heater probe and biopsied, also has small hiatal hernia and gastritis which was biopsied.? Patient is on PPI. -We will continue monitor renal function, monitor for renal recovery. Labs ordered for tomorrow.
[2021-08-27] MEDS: Ferrous Sulfate 325 MG Tablet PO (17:07)
[2021-08-27] MEDS: Ascorbic Acid 500 MG Tablet PO (17:07)
[2021-08-27] MEDS: Calcium (Elemental) 500 MG Tablet PO (17:08)
[2021-08-27] MEDS: Ensure Surgery 237 ML LIQUID PO (17:42)
[2021-08-27] MEDS: Metoprolol Tartrate 25 MG Tablet PO (21:15)
[2021-08-28] VITALS (8 sets, daily range): BP systolic 116–141; BP diastolic 51–66; PULSE 76–104; RESP 14–20; TEMP 36.2–36.8; O2SAT 95–99
[2021-08-28] MEDS: Acetaminophen 325 MG Tablet 650 MG PO ×2 (03:33→22:38)
[2021-08-28] MEDS: Levothyroxine 125 MCG Tablet PO (05:27)
[2021-08-28 06:00] LABS: Absolute Neutrophil Count 9.8 X10^3/uL (2.0-7.7); Basophil# 0.06 X10^3/uL; Basophil% 0.5 % (0-1); Eosinophil# 0.48 X10^3/uL; Eosinophils% 3.8 % (0-5); Hematocrit 30.9 % (37-47); Hemoglobin 9.6 g/dL (12.0-15.0); Lymphocyte % 8.6 % (19-41); Mean Corp Hgb Conc 31.1 g/dL (32-36); Mean Corpuscular Hgb 29.4 pg (27.0-32.0); Mean Corpuscular Volume 94.8 fL (81-99); Mean Platelet Vol. 10.1 fl (6.2-12.0); Monocyte# 0.81 X10^3/uL; Monocyte% 6.4 % (0-10); Neutrophil # 9.79 X10^3/uL (2.7-7.7); Neutrophil % 76.8 % (47-70); POSITIVE MORPHOLOGY YES; Platelet Count 236 K/mm3 (150-450); RBC Distribution Width CV 19.4 % (11.6-14.6); RBC Distribution Width SD 64.3 fl (35.1-43.9); Red Blood Count 3.26 M/mm3 (4.2-5.4); White Blood Count 12.7 K/mm3 (4.4-11.0)
[2021-08-28 06:02] LABS: Differential Indicated SCAN CRITERIA MET
[2021-08-28 06:18] LABS: Differential Comment SCANNED
[2021-08-28 06:31] LABS: Anion Gap 10 (5-15); BUN 84 mg/dL (7-18); BUN/Creat Ratio 22.3 RATIO (10-20); Calcium,Total 8.7 mg/dL (8.5-10.1); Chloride 104 mmol/L (98-107); Creatinine, Serum 3.77 mg/dL (0.55-1.02); EST Glomerular Filtration Rate 12 mL/min (>60); Est Glom Filt Rate - Afr Amer 15 mL/min (>60); Estimated Creatinine Clearance 14.36 ml/min; Glucose 125 mg/dL (74-106); Potassium 4.4 mmol/L (3.5-5.1); Sodium Level 134 mmol/L (136-145)
--- NOTE | 2021-08-28 09:16 | PN.RENAL_ITS ---
Subjective Subjective Awake, sitting up in bed. Daughter at bedside. Patient denies any shortness of breath but does states she has developed a dry cough. Denies any nausea. No diarrhea. Objective Data Objective Data Vital Signs: Vital Signs Temp Pulse Resp BP Pulse Ox O2 Del Method O2 Flow Rate 98.2 F 97 14 124/59 H 96 Nasal Cannula 2 08/28/21 03:00 08/28/21 03:00 08/28/21 03:00 08/28/21 03:00 08/28/21 03:00 08/28/21 08:22 08/28/21 08:22 Oxygen Flow Rate (L/min) 2 Oxygen Delivery Method Nasal Cannula Weight: 81.9 kg Body Mass Index (BMI) 35.4 Intake & Output: Intake and Output for Last 24 Hours 08/26/21 08/27/21 08/28/21 23:59 23:59 23:59 Intake Total 4155.67 / 4155.67 2415 / 2715 600 / 600 Output Total 100 / 350 750 / 1025 475 / 475 Balance 4055.67 / 3805.67 1665 / 1690 125 / 125 Lab / Micro Data Result Diagrams: 08/28/21 05:45 08/28/21 05:45 Labs: Laboratory Results - last 24 hr 08/28/21 05:45: WBC 12.7 H, RBC 3.26 L, Hgb 9.6 L, Hct 30.9 L, MCV 94.8, MCH 29.4, MCHC 31.1 L, RDW Std Deviation 64.3 H, RDW Coeff of Leatha 19.4 H, Plt Count 236, MPV 10.1, Immature Gran % (Auto) 3.900 H, Neut % (Auto) 76.8 H, Lymph % (Auto) 8.6 L, [place] % (Auto) 6.4, Eos % (Auto) 3.8, Baso % (Auto) 0.5, Absolute Neuts (auto) 9.8 H, Absolute Lymphs (auto) 1.10, Nucleated RBC % 1.0, Differential Comment SCANNED 08/28/21 05:45: Sodium 134 L, Potassium 4.4, Chloride 104, Carbon Dioxide 20.0 L , Anion Gap 10, BUN 84 H, Creatinine 3.77 H, Estim Creat Clear Calc 14.36, Est GFR (MDRD) Af Amer 15 L, Est GFR (MDRD) Non-Af 12 L, BUN/Creatinine Ratio 22.3 H , Glucose 125 H, Calcium 8.7 Micro: Microbiology 08/20/21 20:56 Tissue - Hip Gram Stain - Final 08/20/21 20:56 Tissue - Hip Wound Culture - Final 08/20/21 20:56 Tissue - Hip Anaerobic Culture - Final No growth in 5 days. 08/20/21 20:56 Tissue - Hip Gram Stain - Final 08/20/21 20:56 Tissue - Hip Wound Culture - Final No growth aerobically. 08/20/21 20:56 Tissue - Hip Anaerobic Culture - Final No growth in 5 days. 08/20/21 20:56 Tissue - Hip Gram Stain - Final 08/20/21 20:56 Tissue - Hip Wound Culture - Final No growth aerobically. 08/20/21 20:56 Tissue - Hip Anaerobic Culture - Final No growth in 5 days. 08/20/21 20:56 Tissue - Hip Gram Stain - Final 08/20/21 20:56 Tissue - Hip Wound Culture - Final No growth aerobically. 08/20/21 20:56 Tissue - Hip Anaerobic Culture - Final No growth in 5 days. 08/20/21 20:56 Tissue - Hip Gram Stain - Final 08/20/21 20:56 Tissue - Hip Wound Culture - Final Proteus mirabilis 08/20/21 20:56 Tissue - Hip Anaerobic Culture - Final Bacteroides fragilis group 08/23/21 06:25 Urine, Catheterized Urine Culture - Final Culture exhibits no growth. 08/18/21 16:47 Blood Culture (Wb) - Anticubital Left Blood Culture - Final No growth in 5 days. 08/18/21 16:52 Blood Culture (Wb) - Anticubital Right Blood Culture - Final No growth in 5 days. 08/23/21 09:52 Stool Stool Occult Blood (ALYCE) - Final Occult Blood Positive Radiography Diagnostic Testing: Radiology Impression Chest X-Ray 08/27/21 12:30 IMPRESSION: Mild degree of CHF with right basilar atelectasis and blunting of the right costophrenic angle. Electronically Signed: Manish Zapata MD at 12:58 EDT , Physical Exam Narrative Const: Alert and oriented. No apparent distress HEENT: Normocephalic, oral mucosa and lips moist Cardio: S1, S2, RRR Respiratory: Lung sounds clear anteriorly. Diminished breath sounds posterior bases Extremities: No pitting edema lower legs. Edema in left hip. Wound vac in place to left hip Indwelling Hudson with clear urine in bag Assessment & Plan Assessment/Plan (1) Acute kidney injury superimposed on CKD: (2) Left hip prosthetic joint infection: (3) Anemia: (4) HFrEF (heart failure with reduced ejection fraction): PLAN: Plan - Nonoliguric EL on CKD; EL secondary to prolonged effective blood volume depletion likely has progressed now to ATN. Creatinine 1.7 mg/dL on admission, creatinine peaked at 4.00 mg/dL on 08/27 and today slight improvement in renal function, creatinine is 3.77 mg/dL. Renal US did not show any hydronephrosis. UA negative for blood, protein 15. Patient is non-oliguric, no significant uremic symptoms. UOP looks to be picking up. Potassium acceptable. Bicarb slightly low but acceptable. At this time there is no acute indication for PATIENT SERVICE SPECIALIST. Recommend strict I&O. Recommend avoiding nephrotoxic agents. -CXR reviewed: mild degree of CHF, we decreased IVF rate on 08/27, today we will stop IV fluids altogether. Patient is on O2 2 L nasal cannula and at times on room air. Encouraged patient to be sitting up in chair during the day. Bps slightly low and there are holding parameters on lopressor -Encouraged patient to increase solute and fluid intake. Continue Ensure as ordered. - History for heart failure with reduced EF,?estimated ejection fraction of 40 to 45%.? She had been on furosemide 20 mg IV twice daily since admission but this was stopped Tuesday - left hip infection and had been receiving vancomycin.? Her Vanco trough and random Vanco levels were slightly elevated. Off Vanco and currently on meropenem for antibiotic coverage - metabolic acidosis likely from EL and diarrhea. Will follow bicarb trends. Bicarb improved today. - Patient has CKD stage III/IV with risk factors including hypertension, coronary artery disease and heart failure.? Suspect chronic fluctuating creatinine levels from cardiorenal syndrome physiology.? Baseline serum creatinine ranging around 1.7 to 2 mg/dL. - Patient did have a stool positive for occult blood, seen by GI.? Hemoglobin was 11.4 on admission and is trending up.? She did have upper GI with findings of bleeding esophageal ulcer which was treated with heater probe and biopsied, also has small hiatal hernia and gastritis which was biopsied.? Patient is on PPI. -We will continue monitor renal function, monitor for renal recovery. Labs ordered for tomorrow.
--- NOTE | 2021-08-28 09:42 | PN.HOSP_ITS ---
Documented by User: Claudette Mai NP, [employer] 08/28/21 09:47 Subjective Subjective Patient seen and examined. Reports improvement in shortness of breath. Rash improved. Denies other symptoms or complaints. Objective Data Objective Data Vital Signs: Vital Signs Temp Pulse Resp BP Pulse Ox O2 Del Method O2 Flow Rate 98.2 F 97 14 124/59 H 96 Nasal Cannula 2 08/28/21 03:00 08/28/21 03:00 08/28/21 03:00 08/28/21 03:00 08/28/21 03:00 08/28/21 08:22 08/28/21 08:22 Oxygen Flow Rate (L/min) 2 Oxygen Delivery Method Nasal Cannula Weight: 180 lb 8.937 oz Body Mass Index (BMI) 35.4 Intake & Output: Intake and Output for Last 24 Hours 08/26/21 08/27/21 08/28/21 23:59 23:59 23:59 Intake Total 4155.67 / 4155.67 2415 / 2715 600 / 600 Output Total 100 / 350 750 / 1025 475 / 475 Balance 4055.67 / 3805.67 1665 / 1690 125 / 125 Lab / Micro Data Result Diagrams: 08/28/21 05:45 08/28/21 05:45 Labs: Laboratory Results - last 24 hr 08/28/21 05:45: WBC 12.7 H, RBC 3.26 L, Hgb 9.6 L, Hct 30.9 L, MCV 94.8, MCH 29.4, MCHC 31.1 L, RDW Std Deviation 64.3 H, RDW Coeff of Leatha 19.4 H, Plt Count 236, MPV 10.1, Immature Gran % (Auto) 3.900 H, Neut % (Auto) 76.8 H, Lymph % (Auto) 8.6 L, [place] % (Auto) 6.4, Eos % (Auto) 3.8, Baso % (Auto) 0.5, Absolute Neuts (auto) 9.8 H, Absolute Lymphs (auto) 1.10, Nucleated RBC % 1.0, Differential Comment SCANNED 08/28/21 05:45: Sodium 134 L, Potassium 4.4, Chloride 104, Carbon Dioxide 20.0 L , Anion Gap 10, BUN 84 H, Creatinine 3.77 H, Estim Creat Clear Calc 14.36, Est GFR (MDRD) Af Amer 15 L, Est GFR (MDRD) Non-Af 12 L, BUN/Creatinine Ratio 22.3 H , Glucose 125 H, Calcium 8.7 Micro: Microbiology 08/20/21 20:56 Tissue - Hip Gram Stain - Final 08/20/21 20:56 Tissue - Hip Wound Culture - Final 08/20/21 20:56 Tissue - Hip Anaerobic Culture - Final No growth in 5 days. 08/20/21 20:56 Tissue - Hip Gram Stain - Final 08/20/21 20:56 Tissue - Hip Wound Culture - Final No growth aerobically. 08/20/21 20:56 Tissue - Hip Anaerobic Culture - Final No growth in 5 days. 08/20/21 20:56 Tissue - Hip Gram Stain - Final 08/20/21 20:56 Tissue - Hip Wound Culture - Final No growth aerobically. 08/20/21 20:56 Tissue - Hip Anaerobic Culture - Final No growth in 5 days. 08/20/21 20:56 Tissue - Hip Gram Stain - Final 08/20/21 20:56 Tissue - Hip Wound Culture - Final No growth aerobically. 08/20/21 20:56 Tissue - Hip Anaerobic Culture - Final No growth in 5 days. 08/20/21 20:56 Tissue - Hip Gram Stain - Final 08/20/21 20:56 Tissue - Hip Wound Culture - Final Proteus mirabilis 08/20/21 20:56 Tissue - Hip Anaerobic Culture - Final Bacteroides fragilis group 08/23/21 06:25 Urine, Catheterized Urine Culture - Final Culture exhibits no growth. 08/18/21 16:47 Blood Culture (Wb) - Anticubital Left Blood Culture - Final No growth in 5 days. 08/18/21 16:52 Blood Culture (Wb) - Anticubital Right Blood Culture - Final No growth in 5 days. 08/23/21 09:52 Stool Stool Occult Blood (ALYCE) - Final Occult Blood Positive Radiography Diagnostic Testing: Radiology Impression Chest X-Ray 08/27/21 12:30 IMPRESSION: Mild degree of CHF with right basilar atelectasis and blunting of the right costophrenic angle. Electronically Signed: Manish Zapata MD at 12:58 EDT , Physical Exam Const alert, oriented x3 and no apparent distress Orientation / Consciousness: awake, oriented to person, oriented to place and oriented to time HEENT normocephalic and moist oral mucous membranes Eyes PERRL, EOMs intact bilaterally and conjunctivae normal Neck no lymphadenopathy Resp clear to auscultation bilaterally Auscultation: diminished lung sounds Cardio regular rate, regular rhythm and no murmurs Peripheral Pulses: pulses 2+ throughout GI normal to inspection, nondistended, normoactive bowel sounds, non-tender and non-distended Extremity normal to inspection Skin no rashes or lesions noted Skin Narrative: Left hip wound VAC/dressing in place. Diffuse erythematous rash.? Nonpruritic. Significantly improved. Lesions: no lesions Rashes: no rashes Trauma: no lacerations or abrasions Neuro CN's II-XII intact bilaterally, no focal motor deficits, no sensory deficits noted and deep tendon reflexes 2+ bilaterally Psych mental status grossly normal and affect normal Assessment & Plan Assessment/Plan (1) Left hip prosthetic joint infection: PLAN: Plan 1.? Infected left hip seroma/prosthetic joint infection-ID and orthopedic medicine following.? Underwent irrigation and debridement of left hip infected seroma 08/20/2021.? IV Rocephin changed to IV meropenem due to rash.? Rash significantly improved. 2. Acute kidney injury on chronic kidney disease stage IIIb-nephrology consulted.? Hold nephrotoxic regimen.? IV fluids.? Renal ultrasound unremarkable.? Creatinine trending down. Trend BMP. 3. CAD-on Plavix, metoprolol.? Allergy to statin. 4. Hypertension-stable, continue current regimen. 5. Hypothyroidism-continue Synthroid regimen. 6. Acute blood loss anemia secondary to upper GI bleed-underwent EGD 08/24/2021 which demonstrated bleeding esophageal ulcer, small hiatal hernia, gastritis, esophageal ring which was not dilated due to patient being on anticoagulation.? Continue PPI.? CBC stable. 7. Mild acute heart failure with reduced ejection fraction-no hypoxia. IV fluids discontinued. Hold off on diuresis due to EL and patient currently stable. Echocardiogram 06/22/2021 with EF 40%. DVT prophylaxis-Hamzah This patient was seen by Claudette Sergei, [employer] under the supervision of Dr. Mata. Discharge planning: Plan on SNF when medically stable with ongoing IV antibiotics with stop date 10/01/2021. Time spent examining patient, reviewing data and subsequent management of care: 13 minutes Documented by User: Dr. Wander Mata, DO 08/28/21 12:38 Objective Data Lab / Micro Data Result Diagrams: 08/28/21 05:45 08/28/21 05:45 Assessment & Plan Assessment/Plan (1) Left hip prosthetic joint infection: Charges/Coding Addendum Addendum: Patient was seen and examined independently of Claudette Mai, her creatinine is improved today. We will repeat labs tomorrow to see if there is further improvement in the creatinine before trying to place a PICC line. alert, oriented x3 and no apparent distress HEENT normocephalic and moist oral mucous membranes Eyes PERRL, EOMs intact bilaterally and conjunctivae normal Neck nuchal rigidity, supple, no JVD, thyroid normal and no carotid bruits General: trachea midline Resp normal respiratory effort, no retractions, no use of accessory muscles and clear to auscultation bilaterally Auscultation: Negative for rales, rhonchi or wheezes Cardio regular rate, regular rhythm, S1 normal heart sound, S2 normal heart sound, no murmurs, no rub and no gallops GI normal to inspection, nondistended, normoactive bowel sounds, soft to palpation, non-tender and non-distended Skin no rashes or lesions noted General Skin Exam: no breakdown Neuro oriented x3, CN's II-XII intact bilaterally, no focal motor deficits and no sensory deficits noted Sensorium / Orientation: awake, alert, oriented to person, oriented to place and oriented to time Speech: speech normal Psych affect normal #!.? Infected left hip seroma-antibiotic coverage per infectious diseases- patient is currently on meropenem now due to a possible drug reaction from Rocephin. #2 acute kidney injury on a backdrop of chronic kidney disease stage IIIb- etiology may be multifactorial, nephrology is participating in her care, patient will continue to be given fluids at a lower rate, renal profile will be performed tomorrow, patient's creatinine is improving at this time #3 coronary artery disease-stable at this time, patient is to remain on her present medications #4 essential hypertension-patient is continue on her present medications #5 hypothyroidism-patient will remain on Synthroid #6 acute anemia secondary to bleeding esophageal ulcer-CBC will be repeated tomorrow #7 bleeding esophageal ulcer-patient will remain on Protonix #8 gastritis-patient will remain on Protonix #9 esophageal ring-this was not dilated due to the patient being on anticoagulation and having poor nutritional status, gastroenterology recommended not dilating this area. #10 dyspnea-probably secondary to mild systolic CHF patient is currently on 2 L via nasal cannula and her pulse ox is 95% #11 mild pulmonary hypertension-complicates care, management, recovery, and prognosis. I have reviewed Claudette Mai's progress note including her medical assessment and plan of care and with the above additions endorse it. Total clinical time spent by myself addressing the patient's medical issues, reviewing the data, and collaborating with patient's care team: 20 minutes Visit Charges Inpatient E&M: 00679 Subs Hosp L2
[2021-08-28] MEDS: Pantoprazole Sodium 40 MG Tablet PO ×2 (10:16→22:37)
[2021-08-28] MEDS: Metoprolol Tartrate 25 MG Tablet PO ×2 (10:16→22:37)
[2021-08-28] MEDS: Clopidogrel Bisulfate 75 MG Tablet PO (10:16)
[2021-08-28] MEDS: APIXABAN 2.5 MG TABLET PO ×2 (10:16→22:37)
[2021-08-28] MEDS: Cholecalciferol (VIT D3) 25 MCG TABLET (1,000 UNITS) PO (10:17)
[2021-08-28] MEDS: Menthol/Lanolin/Calamine/Znox 113 GM Tube 1 APPLIC TOPICAL ×2 (10:24→22:40)
[2021-08-28] MEDS: Gabapentin 300 MG Capsule PO (10:24)
--- NOTE | 2021-08-28 10:31 | CASEMGMT ---
Social Work SW spoke with Christy in TCU and a bed remains available for pt and they can accept over the weekend. Phone call to Serenity at [employer] and preauth has been obtained. Preauth is good from 08/28 thru 08/30. If pt remains in the hospital on Tuesday, new precert will be needed. Auth #[id number]. Physician and TCU updated. SHAR attempted to meet with pt to inform. Pt sleeping soundly. VM left with pt augustus Navas and updated on discharge plan. Plan: TCU, when medically ready YOAN Payan
[2021-08-28] MEDS: Ferrous Sulfate 325 MG Tablet PO ×2 (12:02→16:03)
[2021-08-28] MEDS: Ascorbic Acid 500 MG Tablet PO ×2 (12:02→16:03)
[2021-08-28] MEDS: Calcium (Elemental) 500 MG Tablet PO ×2 (12:02→16:03)
[2021-08-28] MEDS: Multivitamins,Ther W-Minerals Tablet 1 TABLET PO (12:02)
--- NOTE | 2021-08-28 13:13 | PCM.PN.ID ---
Physical Exam Narrative Rash better, no fever, feeling better, UOP starting to improve Const alert and no apparent distress Resp normal air movement and clear to auscultation bilaterally Cardio regular rate and regular rhythm GI soft to palpation, non-tender and non-distended Skin Skin Narrative: fading erythema on trunk ID ID: Route of nutrition/ use of supplements: [] Nutritional Intake: [] IV Site: [] Hudson Catheter: [] Assessment & Plan Assessment/Plan (1) Left hip prosthetic joint infection: PLAN: s/p OR 08/20/[address] Nettles for I&D and revision of L hip. One surg cx with proteus and bacteroides. Now course complicated by worsening EL. 08/24 changed abx to ceftriaxone. Neph consulted. Plan on 6 weeks iv abx, stop date 10/01/21. Now with rash, 08/26 changed ceftriaxone to jaany. EL now starting to improve, rash improving. Plan on ertapenem at discharge, will need first dose (0.5gm daily) prior to leaving. Will follow, wrote rx, d/w family independence case manager. ID followup in 2 weeks, or I can see her at TCU or rehab here if that is where she goes.
[2021-08-28] MEDS: Albuterol 2.5 MG/3 ML VIAL.NEB. INHALATION (22:32)
[2021-08-28] MEDS: 0.9% Saline Lock 10 ML Syringe IV (22:42)
[2021-08-29] VITALS (8 sets, daily range): BP systolic 98–119; BP diastolic 60–69; PULSE 74–110; RESP 18–23; TEMP 36.5–36.8; O2SAT 93–98
[2021-08-29] MEDS: Levothyroxine 125 MCG Tablet PO (05:42)
[2021-08-29] MEDS: Acetaminophen 325 MG Tablet 650 MG PO ×2 (05:42→23:24)
[2021-08-29] MEDS: 0.9% Saline Lock 10 ML Syringe IV ×3 (05:43→23:33)
[2021-08-29 07:36] LABS: BUN 87 mg/dL (7-18); Calcium,Total 8.8 mg/dL (8.5-10.1); Chloride 107 mmol/L (98-107); Creatinine, Serum 3.48 mg/dL (0.55-1.02); EST Glomerular Filtration Rate 13 mL/min (>60); Est Glom Filt Rate - Afr Amer 16 mL/min (>60); Estimated Creatinine Clearance 15.56 ml/min; Glucose 108 mg/dL (74-106); Phosphorus 3.8 mg/dL (2.5-4.9); Potassium 4.6 mmol/L (3.5-5.1); Sodium Level 137 mmol/L (136-145)
--- NOTE | 2021-08-29 08:16 | PCM.PN.REN ---
Subjective Subjective Following for EL on CKD Patient is resting quietly. No overnight events. Alert and oriented. Denies any complaints except for feeling thirsty. No diarrhea. Objective Data Objective Data Vital Signs: Vital Signs Temp Pulse Resp BP Pulse Ox O2 Del Method O2 Flow Rate 98.2 F 74 20 H 107/60 93 Nasal Cannula 2 08/29/21 02:53 08/29/21 02:53 08/29/21 02:53 08/29/21 02:53 08/29/21 07:28 08/29/21 07:28 08/29/21 07:28 Oxygen Flow Rate (L/min) 2 Oxygen Delivery Method Nasal Cannula Weight: 81.9 kg Body Mass Index (BMI) 35.4 Intake & Output: Intake and Output for Last 24 Hours 08/27/21 08/28/21 08/29/21 23:59 23:59 23:59 Intake Total 2415 / 2715 1830 / 1830 25 / 25 Output Total 750 / 1025 1375 / 1375 150 / 150 Balance 1665 / 1690 455 / 455 -125 / -125 Lab / Micro Data Result Diagrams: 08/28/21 05:45 08/29/21 06:33 Labs: Laboratory Results - last 24 hr 08/29/21 06:33: Sodium 137, Potassium 4.6, Chloride 107, Carbon Dioxide 20.0 L, BUN 87 H, Creatinine 3.48 H, Estim Creat Clear Calc 15.56, Est GFR (MDRD) Af Amer 16 L, Est GFR (MDRD) Non-Af 13 L, BUN/Creatinine Ratio 25.0 H, Glucose 108 H, Calcium 8.8, Phosphorus 3.8, Albumin 2.0 L Micro: Microbiology 08/20/21 20:56 Tissue - Hip Gram Stain - Final 08/20/21 20:56 Tissue - Hip Wound Culture - Final 08/20/21 20:56 Tissue - Hip Anaerobic Culture - Final No growth in 5 days. 08/20/21 20:56 Tissue - Hip Gram Stain - Final 08/20/21 20:56 Tissue - Hip Wound Culture - Final No growth aerobically. 08/20/21 20:56 Tissue - Hip Anaerobic Culture - Final No growth in 5 days. 08/20/21 20:56 Tissue - Hip Gram Stain - Final 08/20/21 20:56 Tissue - Hip Wound Culture - Final No growth aerobically. 08/20/21 20:56 Tissue - Hip Anaerobic Culture - Final No growth in 5 days. 08/20/21 20:56 Tissue - Hip Gram Stain - Final 08/20/21 20:56 Tissue - Hip Wound Culture - Final No growth aerobically. 08/20/21 20:56 Tissue - Hip Anaerobic Culture - Final No growth in 5 days. 08/20/21 20:56 Tissue - Hip Gram Stain - Final 08/20/21 20:56 Tissue - Hip Wound Culture - Final Proteus mirabilis 08/20/21 20:56 Tissue - Hip Anaerobic Culture - Final Bacteroides fragilis group 08/23/21 06:25 Urine, Catheterized Urine Culture - Final Culture exhibits no growth. 08/18/21 16:47 Blood Culture (Wb) - Anticubital Left Blood Culture - Final No growth in 5 days. 08/18/21 16:52 Blood Culture (Wb) - Anticubital Right Blood Culture - Final No growth in 5 days. 08/23/21 09:52 Stool Stool Occult Blood (ALYCE) - Final Occult Blood Positive Physical Exam Narrative Const: Alert and oriented. No apparent distress HEENT: Normocephalic, oral mucosa and lips moist Cardio: S1, S2, RRR Respiratory: Lung sounds clear anteriorly. Diminished breath sounds posterior bases. No rales or rhonchi noted Extremities: Trace to 1+ edema to bilateral lower legs. Edema in left hip. Wound vac in place to left hip Indwelling Hudson with clear urine in bag Assessment & Plan Assessment/Plan (1) Acute kidney injury superimposed on CKD: (2) Left hip prosthetic joint infection: (3) Anemia: (4) HFrEF (heart failure with reduced ejection fraction): PLAN: Plan - Nonoliguric EL on CKD; EL secondary to prolonged effective blood volume depletion likely has progressed now to ATN. Creatinine 1.7 mg/dL on admission, creatinine peaked at 4.00 mg/dL on 08/27 and today improvement in renal function, creatinine is 3.48 mg/dL. Renal US did not show any hydronephrosis. UA negative for blood, protein 15. Patient is non-oliguric, no significant uremic symptoms. UOP looks to be picking up, 1.4 L output yesterday. Potassium acceptable. Bicarb slightly low but acceptable. At this time there is no acute indication for DIRECTOR OF MARKET ANALYSIS. Recommend strict I&O. Recommend avoiding nephrotoxic agents. -CXR reviewed: mild degree of CHF, we decreased IVF rate on 08/27, and stopped IV fluids altogether on 08/28. Patient is on O2 2 L nasal cannula and at times on room air. Encouraged patient to be sitting up in chair during the day. Bps slightly low and there are holding parameters on lopressor -Encouraged patient to increase solute and fluid intake. Continue Ensure as ordered. - History for heart failure with reduced EF,?estimated ejection fraction of 40 to 45%.? She had been on furosemide 20 mg IV twice daily since admission but this was stopped Tuesday due to rising Creatinine. Off IVF as of 08/28. May add low dose diuretic tomorrow. - left hip infection and had been receiving vancomycin.? Her Vanco trough and random Vanco levels were slightly elevated. Off Vanco and currently on meropenem for antibiotic coverage - metabolic acidosis likely from EL and diarrhea. Will follow bicarb trends. Bicarb improved and stable. No longer having diarrhea. - Patient has CKD stage III/IV with risk factors including hypertension, coronary artery disease and heart failure.? Suspect chronic fluctuating creatinine levels from cardiorenal syndrome physiology.? Baseline serum creatinine ranging around 1.7 to 2 mg/dL. - Patient did have a stool positive for occult blood, seen by GI.? Hemoglobin was 11.4 on admission and is trending up.? She did have upper GI with findings of bleeding esophageal ulcer which was treated with heater probe and biopsied, also has small hiatal hernia and gastritis which was biopsied.? Patient is on PPI. -We will continue monitor renal function, monitor for renal recovery. Labs ordered for tomorrow.
[2021-08-29] MEDS: Pantoprazole Sodium 40 MG Tablet PO ×2 (09:48→23:40)
[2021-08-29] MEDS: Metoprolol Tartrate 25 MG Tablet PO ×2 (09:48→23:40)
[2021-08-29] MEDS: Gabapentin 300 MG Capsule PO (09:48)
[2021-08-29] MEDS: Clopidogrel Bisulfate 75 MG Tablet PO (09:48)
[2021-08-29] MEDS: APIXABAN 2.5 MG TABLET PO ×2 (09:48→23:39)
[2021-08-29] MEDS: Menthol/Lanolin/Calamine/Znox 113 GM Tube 1 APPLIC TOPICAL ×2 (09:49→23:39)
[2021-08-29] MEDS: Cholecalciferol (VIT D3) 25 MCG TABLET (1,000 UNITS) PO (09:50)
--- NOTE | 2021-08-29 10:45 | CASEMGMT ---
Social Work Note SHAR spoke with Joann in TCU. TCU still having water main break issues. TCU can only accept one admission this weekend and that admission is slated for another pt. Joann states that the earliest pt could discharge to TCU would be Tuesday when she speaks with Maintenance to see if they give the all clear for the rooms. If maintenance does not give the all clear, the next TCU discharge is scheduled for 09/03/2021. SHAR reviewed chart, pt has a managed insurance so regardless, pt would need to remain at [facility] until Tuesday to determine if TCU is able to accept pt or if SW will need to find a new SNF and get pre-cert. SHAR updated nurse discharge planner of this information. Yohana Burdick WASTE SALVAGER, [employer]
--- NOTE | 2021-08-29 11:24 | PN.HOSP_ITS ---
Documented by User: Claudette Mai NP, CONTACT PRINTER [employer]-C 08/29/21 11:27 Subjective Subjective Patient seen and examined. Denies shortness of breath. Denies other symptoms or complaints. To have PICC line placed today. Objective Data Objective Data Vital Signs: Vital Signs Temp Pulse Resp BP Pulse Ox O2 Del Method O2 Flow Rate 97.7 F L 108 H 18 98/65 94 Nasal Cannula 2 08/29/21 09:34 08/29/21 09:48 08/29/21 09:34 08/29/21 09:34 08/29/21 09:34 08/29/21 09:36 08/29/21 10:19 Oxygen Flow Rate (L/min) 2 Oxygen Delivery Method Nasal Cannula Weight: 180 lb 8.937 oz Body Mass Index (BMI) 35.4 Intake & Output: Intake and Output for Last 24 Hours 08/27/21 08/28/21 08/29/21 23:59 23:59 23:59 Intake Total 2415 / 2715 1830 / 1830 85 / 85 Output Total 750 / 1025 1375 / 1375 150 / 150 Balance 1665 / 1690 455 / 455 -65 / -65 Lab / Micro Data Result Diagrams: 08/28/21 05:45 08/29/21 06:33 Labs: Laboratory Results - last 24 hr 08/29/21 06:33: Sodium 137, Potassium 4.6, Chloride 107, Carbon Dioxide 20.0 L, BUN 87 H, Creatinine 3.48 H, Estim Creat Clear Calc 15.56, Est GFR (MDRD) Af Amer 16 L, Est GFR (MDRD) Non-Af 13 L, BUN/Creatinine Ratio 25.0 H, Glucose 108 H, Calcium 8.8, Phosphorus 3.8, Albumin 2.0 L Micro: Microbiology 08/20/21 20:56 Tissue - Hip Gram Stain - Final 08/20/21 20:56 Tissue - Hip Wound Culture - Final 08/20/21 20:56 Tissue - Hip Anaerobic Culture - Final No growth in 5 days. 08/20/21 20:56 Tissue - Hip Gram Stain - Final 08/20/21 20:56 Tissue - Hip Wound Culture - Final No growth aerobically. 08/20/21 20:56 Tissue - Hip Anaerobic Culture - Final No growth in 5 days. 08/20/21 20:56 Tissue - Hip Gram Stain - Final 08/20/21 20:56 Tissue - Hip Wound Culture - Final No growth aerobically. 08/20/21 20:56 Tissue - Hip Anaerobic Culture - Final No growth in 5 days. 08/20/21 20:56 Tissue - Hip Gram Stain - Final 08/20/21 20:56 Tissue - Hip Wound Culture - Final No growth aerobically. 08/20/21 20:56 Tissue - Hip Anaerobic Culture - Final No growth in 5 days. 08/20/21 20:56 Tissue - Hip Gram Stain - Final 08/20/21 20:56 Tissue - Hip Wound Culture - Final Proteus mirabilis 08/20/21 20:56 Tissue - Hip Anaerobic Culture - Final Bacteroides fragilis group 08/23/21 06:25 Urine, Catheterized Urine Culture - Final Culture exhibits no growth. 08/18/21 16:47 Blood Culture (Wb) - Anticubital Left Blood Culture - Final No growth in 5 days. 08/18/21 16:52 Blood Culture (Wb) - Anticubital Right Blood Culture - Final No growth in 5 days. 08/23/21 09:52 Stool Stool Occult Blood (ALYCE) - Final Occult Blood Positive Physical Exam Const alert and oriented x3 Orientation / Consciousness: awake, oriented to person, oriented to place and oriented to time HEENT normocephalic and moist oral mucous membranes Eyes PERRL, EOMs intact bilaterally and conjunctivae normal Neck no lymphadenopathy Resp clear to auscultation bilaterally Auscultation: diminished lung sounds Cardio regular rate, regular rhythm and no murmurs Peripheral Pulses: pulses 2+ throughout GI normal to inspection, nondistended, normoactive bowel sounds, non-tender and non-distended Extremity normal to inspection General Extremity: edema bilateral lower extremity Details: trace Skin no rashes or lesions noted Skin Narrative: Left hip wound VAC/dressing in place. Lesions: no lesions Rashes: no rashes Trauma: no lacerations or abrasions Neuro CN's II-XII intact bilaterally, no focal motor deficits, no sensory deficits noted and deep tendon reflexes 2+ bilaterally Psych mental status grossly normal and affect normal Assessment & Plan Assessment/Plan (1) Left hip prosthetic joint infection: PLAN: Plan 1.? Infected left hip seroma/prosthetic joint infection-ID and orthopedic medicine following.? Underwent irrigation and debridement of left hip infected seroma 08/20/2021.? IV Rocephin changed to IV meropenem due to rash.? Rash significantly improved. Plan for ertapenem at discharge, patient will need first dose prior to DC. PICC line ordered. 2. Acute kidney injury on chronic kidney disease stage IIIb-nephrology consulted.? Hold nephrotoxic regimen.? IV fluids.? Renal ultrasound unr emarkable.? Creatinine trending down.? Trend BMP. 3. CAD-on Plavix, metoprolol.? Allergy to statin. 4. Hypertension-stable, continue current regimen. 5. Hypothyroidism-continue Synthroid regimen. 6. Acute blood loss anemia secondary to upper GI bleed-underwent EGD 08/24/2021 which demonstrated bleeding esophageal ulcer, small hiatal hernia, gastritis, esophageal ring which was not dilated due to patient being on anticoagulation.? Continue PPI.? CBC stable. 7.? Mild acute heart failure with reduced ejection fraction-no hypoxia.? IV fluids discontinued.? Hold off on diuresis due to EL and patient currently stable.? Echocardiogram 06/22/2021 with EF 40%. Will need ongoing diuretic recommendations per nephrology. DVT prophylaxis-Eliquis This patient was seen by Claudette Mai NP-C under the supervision of Dr. Mata. Discharge planning: Plan on SNF pending available bed at TCU with ongoing IV antibiotics with stop date 10/01/2021. Time spent examining patient, reviewing data and subsequent management of care: 13 minutes Documented by User: Dr. Wander Mata, 08/29/21 13:38 Objective Data Lab / Micro Data Result Diagrams: 08/28/21 05:45 08/29/21 06:33 Assessment & Plan Assessment/Plan (1) Left hip prosthetic joint infection: Charges/Coding Addendum Addendum: Patient was seen and examined independently of Claudette Mia today, her creatinine has improved today, I have directed that a PICC line be inserted today, patient cannot go to TCU however because of bed availability. We will check and see if the patient can go tomorrow. I talked briefly with the patient's who was in the room at the time my examination. alert, oriented x3 and no apparent distress HEENT normocephalic and moist oral mucous membranes Eyes PERRL, EOMs intact bilaterally and conjunctivae normal Neck nuchal rigidity, supple, no JVD, thyroid normal and no carotid bruits General: trachea midline Resp normal respiratory effort, no retractions, no use of accessory muscles and clear to auscultation bilaterally Auscultation: Negative for rales, rhonchi or wheezes Cardio regular rate, regular rhythm, S1 normal heart sound, S2 normal heart sound, no murmurs, no rub and no gallops GI normal to inspection, nondistended, normoactive bowel sounds, soft to palpation, non-tender and non-distended Skin no rashes or lesions noted General Skin Exam: no breakdown Neuro oriented x3, CN's II-XII intact bilaterally, no focal motor deficits and no sensory deficits noted Sensorium / Orientation: awake, alert, oriented to person, oriented to place and oriented to time Speech: speech normal Psych affect normal #!.? Infected left hip seroma-antibiotic coverage per infectious diseases- patient is currently on meropenem now due to a possible drug reaction from Rocephin. #2 acute kidney injury on a backdrop of chronic kidney disease stage IIIb- etiology may be multifactorial, nephrology is participating in her care, patient will continue to be given fluids at a lower rate, renal profile will be performed tomorrow, patient's creatinine is improving at this time #3 coronary artery disease-stable at this time, patient is to remain on her present medications #4 essential hypertension-patient is continue on her present medications #5 hypothyroidism-patient will remain on Synthroid #6 acute anemia secondary to bleeding esophageal ulcer-CBC will be repeated tomorrow #7 bleeding esophageal ulcer-patient will remain on Protonix #8 gastritis-patient will remain on Protonix #9 esophageal ring-this was not dilated due to the patient being on anticoagulation and having poor nutritional status, gastroenterology recommended not dilating this area. #10 dyspnea-probably secondary to mild systolic CHF patient is currently on 2 L via nasal cannula and her pulse ox is 94% #11 mild pulmonary hypertension-complicates care, management, recovery, and prognosis. I have reviewed Claudette Mai's progress note including her medical assessment and plan of care and with the above additions endorse it. Total clinical time spent by myself addressing patient's medical issues, reviewing the data, and collaborating with patient's caregivers: 20 minutes Visit Charges Inpatient E&M: 69709 Subs Hosp L2
[2021-08-29] MEDS: Ferrous Sulfate 325 MG Tablet PO ×2 (12:02→17:17)
[2021-08-29] MEDS: Multivitamins,Ther W-Minerals Tablet 1 TABLET PO (12:02)
[2021-08-29] MEDS: Ascorbic Acid 500 MG Tablet PO ×2 (12:02→17:17)
[2021-08-29] MEDS: Calcium (Elemental) 500 MG Tablet PO ×2 (12:02→17:17)
[2021-08-29] MEDS: Albuterol 2.5 MG/3 ML VIAL.NEB. INHALATION (16:04)
--- NOTE | 2021-08-29 17:02 | RAD_ITS ---
INDICATION: PORTABLE FOR PICC PLACEMENT EXAMINATION/TECHNIQUE: X-RAY - XR Chest 1 View COMPARISON: 08/27/2021 chest x-ray also compared with subcutaneous edema and chest x-ray, 1 hour later showing removal of right-sided PICC line and new left-sided PICC line. FINDINGS: LINES/DEVICES: Right-sided PICC line is abnormally positioned likely within a branch vessel of the axilla, coiled in the right axillary region. No pneumothorax. LUNGS: Bilateral, mildly increased lung volumes. Significant bilateral basilar interstitial and reticular opacities, not significantly changed compared to prior exam from 2 days ago. Small amount of fluid in the right minor fissure. MEDIASTINUM AND CARDIOVASCULAR STRUCTURES: Heart is mildly enlarged. There are intact sternotomy wires. There is some vascular congestion. BONES AND SOFT TISSUES: No fracture or focal osseous lesion. Advanced degenerative changes right shoulder. RAD/CXR for Line Placement IMPRESSION: 1. Right PICC line coiled in the right axilla. Follow-up chest x-ray, already obtained, shows repositioning. Most likely representing interstitial and alveolar edema with small right pleural effusion. Less likely interstitial lung disease.se. Electronically Signed: Vicente Stacy DO at 18:26 EDT ,
--- NOTE | 2021-08-29 18:05 | RAD_ITS ---
INDICATION: line placement EXAMINATION/TECHNIQUE: X-RAY - XR Chest 1 View COMPARISON: 08/29/2021. FINDINGS: The lungs are unchanged. The cardiomediastinal silhouette is stable. Interval placement of left-sided PICC with tip in the upper SVC. No pleural effusion or pneumothorax. The osseous structures are unchanged. RAD/CXR for Line Placement IMPRESSION: Interval placement of left-sided PICC with tip in the upper SVC. No other changes. Electronically Signed: Ramon Perales MD at 20:08 EDT ,
--- NOTE | 2021-08-29 18:18 | NURSING ---
First attempt to place PICC in Rt arm was very difficult. PICC would not pass smoothly, and I suspected malposition. Ordered bedside chest xray and discovered that PICC had turned 90 degrees and at the cephalic / subclavian junction and then proceeded downward and out of view. Removed PICC and reattempted with success on the left arm using a new PICC kit.
[2021-08-29] MEDS: Furosemide 20 MG Tablet PO (19:23)
[2021-08-30] VITALS (10 sets, daily range): BP systolic 97–135; BP diastolic 40–77; PULSE 92–116; RESP 18–22; TEMP 36.6–36.8; O2SAT 94–97
[2021-08-30] MEDS: 0.9% Saline Lock 10 ML Syringe IV ×2 (03:07→23:10)
[2021-08-30 06:24] LABS: Absolute Lymphocyte Count 0.85 X10^3/uL (0.83-4.51); Absolute Neutrophil Count 6.1 X10^3/uL (2.0-7.7); Basophil# 0.06 X10^3/uL; Basophil% 0.7 % (0-1); Eosinophil# 0.34 X10^3/uL; Eosinophils% 4.1 % (0-5); Hemoglobin 8.9 g/dL (12.0-15.0); Lymphocyte # 0.85 X10^3/ul (0.83-4.51); Lymphocyte % 10.2 % (19-41); Mean Corp Hgb Conc 30.7 g/dL (32-36); Mean Corpuscular Hgb 28.9 pg (27.0-32.0); Mean Corpuscular Volume 94.2 fL (81-99); Mean Platelet Vol. 9.9 fl (6.2-12.0); Monocyte# 0.78 X10^3/uL; Monocyte% 9.3 % (0-10); NRBC Flagged by Analyzer 0.7 % (0-5); Neutrophil % 72.9 % (47-70); POSITIVE MORPHOLOGY YES; Platelet Count 278 K/mm3 (150-450); RBC Distribution Width CV 20.2 % (11.6-14.6); RBC Distribution Width SD 65.1 fl (35.1-43.9); Red Blood Count 3.08 M/mm3 (4.2-5.4); White Blood Count 8.4 K/mm3 (4.4-11.0)
[2021-08-30] MEDS: Acetaminophen 325 MG Tablet 650 MG PO (06:42)
[2021-08-30] MEDS: Levothyroxine 125 MCG Tablet PO (06:42)
[2021-08-30 06:43] LABS: Differential Indicated SCAN CRITERIA MET
[2021-08-30 06:50] LABS: Anion Gap 9 (5-15); BUN 90 mg/dL (7-18); BUN/Creat Ratio 28.1 RATIO (10-20); Calcium,Total 9.1 mg/dL (8.5-10.1); Chloride 107 mmol/L (98-107); EST Glomerular Filtration Rate 15 mL/min (>60); Est Glom Filt Rate - Afr Amer 18 mL/min (>60); Estimated Creatinine Clearance 16.92 ml/min; Glucose 118 mg/dL (74-106); Potassium 5.2 mmol/L (3.5-5.1); Sodium Level 135 mmol/L (136-145)
[2021-08-30 07:41] LABS: Anisocytosis 1+; Atypical Lymphocyte 1+ %
[2021-08-30] MEDS: Metoprolol Tartrate 25 MG Tablet PO ×2 (10:02→23:06)
[2021-08-30] MEDS: Menthol/Lanolin/Calamine/Znox 113 GM Tube 1 APPLIC TOPICAL ×2 (10:02→23:03)
[2021-08-30] MEDS: APIXABAN 2.5 MG TABLET PO ×2 (10:02→23:03)
[2021-08-30] MEDS: Furosemide 20 MG Tablet PO ×3 (10:02→17:06)
[2021-08-30] MEDS: Gabapentin 300 MG Capsule PO (10:03)
[2021-08-30] MEDS: Cholecalciferol (VIT D3) 25 MCG TABLET (1,000 UNITS) PO (10:03)
[2021-08-30] MEDS: Pantoprazole Sodium 40 MG Tablet PO ×2 (10:03→23:03)
[2021-08-30] MEDS: Clopidogrel Bisulfate 75 MG Tablet PO (10:04)
--- NOTE | 2021-08-30 11:08 | PCM.PN.REN ---
Subjective Subjective Following for EL on CKD Resting quietly, alert and oriented. Denies any nausea. Per patient and nurse, patient had multiple loose bowel movements yesterday. Patient also has very poor appetite Objective Data Objective Data Vital Signs: Vital Signs Temp Pulse Resp BP Pulse Ox O2 Del Method O2 Flow Rate 98.3 F 114 H 18 124/55 H 96 Nasal Cannula 2 08/30/21 10:21 08/30/21 10:21 08/30/21 10:21 08/30/21 10:21 08/30/21 10:21 08/30/21 10:41 08/30/21 10:41 Oxygen Flow Rate (L/min) 2 Oxygen Delivery Method Nasal Cannula Weight: 81.9 kg Body Mass Index (BMI) 35.4 Intake & Output: Intake and Output for Last 24 Hours 08/28/21 08/29/21 08/30/21 23:59 23:59 23:59 Intake Total 1830 / 1830 135 / 195 120 / 120 Output Total 1375 / 1375 550 / 800 500 / 500 Balance 455 / 455 -415 / -605 -380 / -380 Lab / Micro Data Result Diagrams: 08/30/21 06:03 08/30/21 06:03 Labs: Laboratory Results - last 24 hr 08/30/21 06:03: Sodium 135 L, Potassium 5.2 H, Chloride 107, Carbon Dioxide 19.0 L, Anion Gap 9, BUN 90 H, Creatinine 3.20 H, Estim Creat Clear Calc 16.92, Est GFR (MDRD) Af Amer 18 L, Est GFR (MDRD) Non-Af 15 L, BUN/Creatinine Ratio 28.1 H, Glucose 118 H, Calcium 9.1 08/30/21 06:03: WBC 8.4, RBC 3.08 L, Hgb 8.9 L, Hct 29.0 L, MCV 94.2, MCH 28.9, MCHC 30.7 L, RDW Std Deviation 65.1 H, RDW Coeff of Leatha 20.2 H, Plt Count 278, MPV 9.9, Immature Gran % (Auto) 2.800 H, Neut % (Auto) 72.9 H, Lymph % (Auto) 10.2 L, [place] % (Auto) 9.3, Eos % (Auto) 4.1, Baso % (Auto) 0.7, Absolute Neuts (auto) 6.1, Absolute Lymphs (auto) 0.85, Nucleated RBC % 0.7, Atypical Lymphocytes 1+, Anisocytosis 1+ Micro: Microbiology 08/20/21 20:56 Tissue - Hip Gram Stain - Final 08/20/21 20:56 Tissue - Hip Wound Culture - Final 08/20/21 20:56 Tissue - Hip Anaerobic Culture - Final No growth in 5 days. 08/20/21 20:56 Tissue - Hip Gram Stain - Final 08/20/21 20:56 Tissue - Hip Wound Culture - Final No growth aerobically. 08/20/21 20:56 Tissue - Hip Anaerobic Culture - Final No growth in 5 days. 08/20/21 20:56 Tissue - Hip Gram Stain - Final 08/20/21 20:56 Tissue - Hip Wound Culture - Final No growth aerobically. 08/20/21 20:56 Tissue - Hip Anaerobic Culture - Final No growth in 5 days. 08/20/21 20:56 Tissue - Hip Gram Stain - Final 08/20/21 20:56 Tissue - Hip Wound Culture - Final No growth aerobically. 08/20/21 20:56 Tissue - Hip Anaerobic Culture - Final No growth in 5 days. 08/20/21 20:56 Tissue - Hip Gram Stain - Final 08/20/21 20:56 Tissue - Hip Wound Culture - Final Proteus mirabilis 08/20/21 20:56 Tissue - Hip Anaerobic Culture - Final Bacteroides fragilis group 08/23/21 06:25 Urine, Catheterized Urine Culture - Final Culture exhibits no growth. 08/18/21 16:47 Blood Culture (Wb) - Anticubital Left Blood Culture - Final No growth in 5 days. 08/18/21 16:52 Blood Culture (Wb) - Anticubital Right Blood Culture - Final No growth in 5 days. 08/23/21 09:52 Stool Stool Occult Blood (ALYCE) - Final Occult Blood Positive Radiography Diagnostic Testing: Radiology Impression Chest X-Ray 08/29/21 17:02 IMPRESSION: 1. Right PICC line coiled in the right axilla. Follow-up chest x-ray, already obtained, shows repositioning. Most likely representing interstitial and alveolar edema with small right pleural effusion. Less likely interstitial lung disease.se. Electronically Signed: Vicente Stacy DO at 18:26 EDT Reading Location ID and State: [facility] / [place] Tel , Service support , Chest X-Ray 08/29/21 18:05 IMPRESSION: Interval placement of left-sided PICC with tip in the upper SVC. No other changes. Electronically Signed: Ramon Perales MD at 20:08 EDT , Physical Exam Narrative Const: Alert and oriented. No apparent distress HEENT: Normocephalic, oral mucosa and lips moist Cardio: S1, S2, RRR Respiratory: Lung sounds clear anteriorly. Diminished breath sounds posterior bases. No rales or rhonchi noted Extremities: 1+ edema to bilateral lower legs. Edema noted bilateral arms. Edema in left hip. Wound vac in place to left hip Indwelling [place] with dark straw-colored urine in bag Assessment & Plan Assessment/Plan (1) Acute kidney injury superimposed on CKD: (2) Left hip prosthetic joint infection: (3) Anemia: (4) HFrEF (heart failure with reduced ejection fraction): PLAN: Plan - Nonoliguric EL on CKD; EL secondary to prolonged effective blood volume depletion likely has progressed now to ATN. Creatinine 1.7 mg/dL on admission, creatinine peaked at 4.00 mg/dL on 08/27 and today improvement in renal function, creatinine is 3.20 mg/dL. Renal US did not show any hydronephrosis. UA negative for blood, protein 15. Patient is non-oliguric, no significant uremic symptoms. Urine output has picked up. Potassium slightly elevated, acceptable. Bicarb slightly low but acceptable. At this time there is no acute indication for RN SPINE. Recommend strict I&O. Recommend avoiding nephrotoxic agents. -CXR reviewed: mild degree of CHF, we decreased IVF rate on 08/27, and stopped IV fluids altogether on 08/28. Patient is on O2 2 L nasal cannula and at times on room air. Encouraged patient to be sitting up in chair during the day. Bps slightly low and there are holding parameters on lopressor -Patient has poor solute and fluid intake, encouraged patient to increase solute and fluid intake. Continue Ensure as ordered. - History for heart failure with reduced EF,?estimated ejection fraction of 40 to 45%.? She had been on furosemide 20 mg IV twice daily since admission but this was stopped Tuesday due to rising Creatinine. Off IVF as of 08/28. Restarted back on Lasix 20 mg p.o. twice daily. Though patient has edema, this may also be third spacing. Her albumin is 2.0. Patient has very poor oral intake. Encourage patient to increase fluids especially while on diuretic. Will need to adjust diuretics on day-to-day basis given poor oral intake, diarrhea and edema. Today will give extra one time dose lasix and continue bid lasix. Also asked patient to elevate arms up on pillows when laying in bed. - left hip infection and had been receiving vancomycin.? Her Vanco trough and random Vanco levels were slightly elevated. Off Vanco and currently on meropenem for antibiotic coverage - metabolic acidosis likely from EL and diarrhea. Will follow bicarb trends. Bicarb stable. Had multiple episodes of loose bowel movement yesterday - Patient has CKD stage III/IV with risk factors including hypertension, coronary artery disease and heart failure.? Suspect chronic fluctuating creatinine levels from cardiorenal syndrome physiology.? Baseline serum creatinine ranging around 1.7 to 2 mg/dL. - Patient did have a stool positive for occult blood, seen by GI.? Hemoglobin was 11.4 on admission and is trending up.? She did have upper GI with findings of bleeding esophageal ulcer which was treated with heater probe and biopsied, also has small hiatal hernia and gastritis which was biopsied.? Patient is on PPI. -We will continue monitor renal function, monitor for renal recovery. Labs ordered for tomorrow.
--- NOTE | 2021-08-30 11:22 | PCM.PN.ORT ---
Subjective Subjective Patient remains in the hospital. She continues to have evidence of renal failure. Her creatinine has improved. Additionally they are having a hard time finding a antibiotic that she can tolerate. She developed the rash soon after starting cephalosporins. She apparently has a rash now on the meropenem. Culture of the superficial wound superficial to the fascia at time of surgery did show Proteus Mirabella's. Deep cultures have been negative. Objective Data Objective Data Vital Signs: Vital Signs Temp Pulse Resp BP Pulse Ox O2 Del Method O2 Flow Rate 98.3 F 114 H 18 124/55 H 96 Nasal Cannula 2 08/30/21 10:08/30/21 10:21 08/30/21 10:21 08/30/21 10:21 08/30/21 10:08/30/21 10:41 08/30/21 10:41 Oxygen Flow Rate (L/min) 2 Oxygen Delivery Method Nasal Cannula Weight: 180 lb 8.937 oz Body Mass Index (BMI) 35.4 Intake & Output: Intake and Output for Last 24 Hours 08/28/21 08/29/21 08/30/21 23:59 23:59 23:59 Intake Total 1830 / 1830 135 / 195 120 / 120 Output Total 1375 / 1375 550 / 800 500 / 500 Balance 455 / 455 -415 / -605 -380 / -380 Lab / Micro Data Attestation: I reviewed the patient's lab results. Result Diagrams: 08/30/21 06:03 08/30/21 06:03 Labs: Laboratory Results - last 24 hr 08/30/21 06:03: Sodium 135 L, Potassium 5.2 H, Chloride 107, Carbon Dioxide 19.0 L, Anion Gap 9, BUN 90 H, Creatinine 3.20 H, Estim Creat Clear Calc 16.92, Est GFR (MDRD) Af Amer 18 L, Est GFR (MDRD) Non-Af 15 L, BUN/Creatinine Ratio 28.1 H, Glucose 118 H, Calcium 9.1 08/30/21 06:03: WBC 8.4, RBC 3.08 L, Hgb 8.9 L, Hct 29.0 L, MCV 94.2, MCH 28.9, MCHC 30.7 L, RDW Std Deviation 65.1 H, RDW Coeff of [place] 20.2 H, Plt Count 278, MPV 9.9, Immature Gran % (Auto) 2.800 H, Neut % (Auto) 72.9 H, Lymph % (Auto) 10.2 L, [place] % (Auto) 9.3, Eos % (Auto) 4.1, Baso % (Auto) 0.7, Absolute Neuts (auto) 6.1, Absolute Lymphs (auto) 0.85, Nucleated RBC % 0.7, Atypical Lymphocytes 1+, Anisocytosis 1+ Micro: Microbiology 08/20/21 20:56 Tissue - Hip Gram Stain - Final 08/20/21 20:56 Tissue - Hip Wound Culture - Final 08/20/21 20:56 Tissue - Hip Anaerobic Culture - Final No growth in 5 days. 08/20/21 20:56 Tissue - Hip Gram Stain - Final 08/20/21 20:56 Tissue - Hip Wound Culture - Final No growth aerobically. 08/20/21 20:56 Tissue - Hip Anaerobic Culture - Final No growth in 5 days. 08/20/21 20:56 Tissue - Hip Gram Stain - Final 08/20/21 20:56 Tissue - Hip Wound Culture - Final No growth aerobically. 08/20/21 20:56 Tissue - Hip Anaerobic Culture - Final No growth in 5 days. 08/20/21 20:56 Tissue - Hip Gram Stain - Final 08/20/21 20:56 Tissue - Hip Wound Culture - Final No growth aerobically. 08/20/21 20:56 Tissue - Hip Anaerobic Culture - Final No growth in 5 days. 08/20/21 20:56 Tissue - Hip Gram Stain - Final 08/20/21 20:56 Tissue - Hip Wound Culture - Final Proteus mirabilis 08/20/21 20:56 Tissue - Hip Anaerobic Culture - Final Bacteroides fragilis group 08/23/21 06:25 Urine, Catheterized Urine Culture - Final Culture exhibits no growth. 08/18/21 16:47 Blood Culture (Wb) - Anticubital Left Blood Culture - Final No growth in 5 days. 08/18/21 16:52 Blood Culture (Wb) - Anticubital Right Blood Culture - Final No growth in 5 days. 08/23/21 09:52 Stool Stool Occult Blood (ALYCE) - Final Occult Blood Positive Radiography Diagnostic Testing: Radiology Impression Chest X-Ray 08/29/21 17:02 IMPRESSION: 1. Right PICC line coiled in the right axilla. Follow-up chest x-ray, already obtained, shows repositioning. Most likely representing interstitial and alveolar edema with small right pleural effusion. Less likely interstitial lung disease.se. Electronically Signed: Vicente Stacy DO at 18:26 EDT , Chest X-Ray 08/29/21 18:05 IMPRESSION: Interval placement of left-sided PICC with tip in the upper SVC. No other changes. Electronically Signed: Ramon Perales MD at 20:08 EDT , Physical Exam Const alert and oriented x3 Constitutional Narrative: Patient has poor discoloration. She has significant swelling throughout her extremities. I did explain to them that they should likely remove her rings if she continues to swell. Extremity Extremity Narrative: Left lower extremity: Wound VAC dressing is intact. There is minimal drainage in the tube. Canister remains a stable level from previous examinations. Plan for dressing change tomorrow. Otherwise neurovascular intact distally. Assessment & Plan Assessment/Plan (1) History of revision of total replacement of left hip joint: PLAN: Plan Patient's hip remained stable. There is minimal drainage from the wound VAC at this time. Continue the wound VAC until patient has no drainage from the wound. Based on tubing today may be appropriate to consider a trial of dry dressings starting tomorrow if the wound looks appropriate. Unfortunately, she has significant amount of edema which could likely be resulting in her serous drainage due to third spacing. Majority of her care is medicine related at this point. We again discussed with the patient and her who is at bedside the natural history of hip fractures can result in many different outcomes. 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 Encouraged patient to continue continue to work with medicine and allow them to do all they can to keep her healthy. We will continue to use Ensure for nutritional supplement. We will continue to follow the patient peripherally in the hospital. Please call orthopedics for any further questions or concerns. SA[facility] Office:
[2021-08-30] MEDS: Ascorbic Acid 500 MG Tablet PO ×2 (11:39→17:05)
[2021-08-30] MEDS: Multivitamins,Ther W-Minerals Tablet 1 TABLET PO (11:39)
[2021-08-30] MEDS: Ferrous Sulfate 325 MG Tablet PO ×2 (11:39→17:05)
[2021-08-30] MEDS: Calcium (Elemental) 500 MG Tablet PO ×2 (11:39→17:05)
--- NOTE | 2021-08-30 12:23 | PN.HOSP_ITS ---
Documented by User: Claudette Mai NP, IN FLIGHT TECHNICIAN-C 08/30/21 12:28 Subjective Subjective Patient seen and examined. Resting comfortably in bed. Denies shortness of breath. Reports feeling fatigued and poor appetite. Objective Data Objective Data Vital Signs: Vital Signs Temp Pulse Resp BP Pulse Ox O2 Del Method O2 Flow Rate 98.3 F 114 H 18 124/55 H 96 Nasal Cannula 2 08/30/21 10:08/30/21 10:21 08/30/21 10:21 08/30/21 10:21 08/30/21 10:21 08/30/21 10:41 08/30/21 10:41 Oxygen Flow Rate (L/min) 2 Oxygen Delivery Method Nasal Cannula Weight: 180 lb 8.937 oz Body Mass Index (BMI) 35.4 Intake & Output: Intake and Output for Last 24 Hours 08/28/21 08/29/21 08/30/21 23:59 23:59 23:59 Intake Total 1830 / 1830 135 / 195 120 / 120 Output Total 1375 / 1375 550 / 800 500 / 500 Balance 455 / 455 -415 / -605 -380 / -380 Lab / Micro Data Result Diagrams: 08/30/21 06:03 08/30/21 06:03 Labs: Laboratory Results - last 24 hr 08/30/21 06:03: Sodium 135 L, Potassium 5.2 H, Chloride 107, Carbon Dioxide 19.0 L, Anion Gap 9, BUN 90 H, Creatinine 3.20 H, Estim Creat Clear Calc 16.92, Est GFR (MDRD) Af Amer 18 L, Est GFR (MDRD) Non-Af 15 L, BUN/Creatinine Ratio 28.1 H , Glucose 118 H, Calcium 9.1 08/30/21 06:03: WBC 8.4, RBC 3.08 L, Hgb 8.9 L, Hct 29.0 L, MCV 94.2, MCH 28.9, MCHC 30.7 L, RDW Std Deviation 65.1 H, RDW Coeff of Leatha 20.2 H, Plt Count 278, MPV 9.9, Immature Gran % (Auto) 2.800 H, Neut % (Auto) 72.9 H, Lymph % (Auto) 10.2 L, [place] % (Auto) 9.3, Eos % (Auto) 4.1, Baso % (Auto) 0.7, Absolute Neuts (auto) 6.1, Absolute Lymphs (auto) 0.85, Nucleated RBC % 0.7, Atypical Lymphocytes 1+, Anisocytosis 1+ Micro: Microbiology 08/20/21 20:56 Tissue - Hip Gram Stain - Final 08/20/21 20:56 Tissue - Hip Wound Culture - Final 08/20/21 20:56 Tissue - Hip Anaerobic Culture - Final No growth in 5 days. 08/20/21 20:56 Tissue - Hip Gram Stain - Final 08/20/21 20:56 Tissue - Hip Wound Culture - Final No growth aerobically. 08/20/21 20:56 Tissue - Hip Anaerobic Culture - Final No growth in 5 days. 08/20/21 20:56 Tissue - Hip Gram Stain - Final 08/20/21 20:56 Tissue - Hip Wound Culture - Final No growth aerobically. 08/20/21 20:56 Tissue - Hip Anaerobic Culture - Final No growth in 5 days. 08/20/21 20:56 Tissue - Hip Gram Stain - Final 08/20/21 20:56 Tissue - Hip Wound Culture - Final No growth aerobically. 08/20/21 20:56 Tissue - Hip Anaerobic Culture - Final No growth in 5 days. 08/20/21 20:56 Tissue - Hip Gram Stain - Final 08/20/21 20:56 Tissue - Hip Wound Culture - Final Proteus mirabilis 08/20/21 20:56 Tissue - Hip Anaerobic Culture - Final Bacteroides fragilis group 08/23/21 06:25 Urine, Catheterized Urine Culture - Final Culture exhibits no growth. 08/18/21 16:47 Blood Culture (Wb) - Anticubital Left Blood Culture - Final No growth in 5 days. 08/18/21 16:52 Blood Culture (Wb) - Anticubital Right Blood Culture - Final No growth in 5 days. 08/23/21 09:52 Stool Stool Occult Blood (ALYCE) - Final Occult Blood Positive Radiography Diagnostic Testing: Radiology Impression Chest X-Ray 08/29/21 17:02 IMPRESSION: 1. Right PICC line coiled in the right axilla. Follow-up chest x-ray, already obtained, shows repositioning. Most likely representing interstitial and alveolar edema with small right pleural effusion. Less likely interstitial lung disease.se. Electronically Signed: Vicente Stacy DO at 18:26 EDT , Chest X-Ray 08/29/21 18:05 IMPRESSION: Interval placement of left-sided PICC with tip in the upper SVC. No other changes. Electronically Signed: Ramon Perales MD at 20:08 EDT , Physical Exam Const alert and oriented x3 Constitutional Narrative: Fatigued appearing Orientation / Consciousness: awake, oriented to person, oriented to place and oriented to time HEENT normocephalic Mouth: dry mucous membranes Eyes PERRL, EOMs intact bilaterally and conjunctivae normal Neck no lymphadenopathy Resp clear to auscultation bilaterally Auscultation: diminished lung sounds Cardio regular rate, regular rhythm and no murmurs Peripheral Pulses: pulses 2+ throughout GI normal to inspection, nondistended, normoactive bowel sounds, non-tender and non-distended Extremity normal to inspection Skin no rashes or lesions noted Skin Narrative: Generalized erythematous rash. Appears improved from prior. Lesions: no lesions Rashes: no rashes Trauma: no lacerations or abrasions Neuro CN's II-XII intact bilaterally, no focal motor deficits, no sensory deficits noted and deep tendon reflexes 2+ bilaterally Psych mental status grossly normal and affect normal Assessment & Plan Assessment/Plan (1) Left hip prosthetic joint infection: PLAN: Plan 1.? Infected left hip seroma/prosthetic joint infection-ID and orthopedic medicine following.? Underwent irrigation and debridement of left hip infected seroma 08/20/2021.? IV Rocephin changed to IV meropenem due to rash.? Rash improved.? Plan for ertapenem at discharge, patient will need first dose prior to DC.? PICC line ordered. 2. Acute kidney injury on chronic kidney disease stage IIIb-nephrology consulted.? Hold nephrotoxic regimen. Renal ultrasound unremarkable.? Creatinine trending down.? Trend BMP. 3. CAD-on Plavix, metoprolol.? Allergy to statin. 4. Hypertension-stable, continue current regimen. 5. Hypothyroidism-continue Synthroid regimen. 6. Acute blood loss anemia secondary to upper GI bleed-underwent EGD 08/24/2021 which demonstrated bleeding esophageal ulcer, small hiatal hernia, gastritis, esophageal ring which was not dilated due to patient being on anticoagulation.? Continue PPI.? CBC stable. 7.? Mild acute heart failure with reduced ejection fraction-no hypoxia.? IV fluids discontinued.? Echocardiogram 06/22/2021 with EF 40%.? Initiated on Lasix 20 mg twice daily. Further adjustment in diuretics per nephrology. DVT prophylaxis-Eliquis This patient was seen by Claudette Mai NP-C under the supervision of Dr. Mata. Discharge planning: Plan on SNF pending available bed at TCU with ongoing IV antibiotics with stop date 10/01/2021. Time spent examining patient, reviewing data and subsequent management of care: 12 minutes Documented by User: Dr. Wander Mata, DO 08/30/21 12:55 Objective Data Lab / Micro Data Result Diagrams: 08/30/21 06:03 08/30/21 06:03 Assessment & Plan Assessment/Plan (1) Left hip prosthetic joint infection: Charges/Coding Addendum Addendum: Was seen and examined today independently of Claudette Mai, I talked with nephrology today about her care, we have decided to increase patient's Lasix due to water retention. Patient does not appear to be doing much activity in her room, most of the time when I examined her she is lying in bed. Patient continues to have some skin redness, I am not sure what the etiology of this rash is. alert, oriented x3 and no apparent distress HEENT normocephalic and moist oral mucous membranes Eyes PERRL, EOMs intact bilaterally and conjunctivae normal Neck nuchal rigidity, supple, no JVD, thyroid normal and no carotid bruits General: trachea midline Resp normal respiratory effort, no retractions, no use of accessory muscles and clear to auscultation bilaterally Auscultation: Negative for rales, rhonchi or wheezes Cardio regular rate, regular rhythm, S1 normal heart sound, S2 normal heart sound, no murmurs, no rub and no gallops GI normal to inspection, nondistended, normoactive bowel sounds, soft to palpation, non-tender and non-distended Skin No lesions noted, there is a generalized redness to several areas of the patient's skin noted. Patient has generalized edema in the arms and legs Neuro oriented x3, CN's II-XII intact bilaterally, no focal motor deficits and no sensory deficits noted Sensorium / Orientation: awake, alert, oriented to person, oriented to place Speech: speech normal Psych Patient's affect is flat #!.? Infected left hip seroma-antibiotic coverage per infectious diseases- patient is currently on meropenem now due to a possible drug reaction from Rocephin. #2 acute kidney injury on a backdrop of chronic kidney disease stage IIIb- etiology may be multifactorial, nephrology is participating in her care, patient's creatinine is improved but the patient remains edematous, patient will have her Lasix dosage which was started yesterday adjusted by nephrology, patient will receive IV Lasix today #3 coronary artery disease-stable at this time, patient is to remain on her present medications #4 essential hypertension-patient is continue on her present medications #5 hypothyroidism-patient will remain on Synthroid #6 acute anemia secondary to bleeding esophageal ulcer-CBC will be repeated tomorrow #7 bleeding esophageal ulcer-patient will remain on Protonix #8 gastritis-patient will remain on Protonix #9 esophageal ring-this was not dilated due to the patient being on anticoagulation and having poor nutritional status, gastroenterology recommended not dilating this area. #10 dyspnea-probably secondary to mild systolic CHF patient is currently on 2 L via nasal cannula and her pulse ox is 94%, patient's Lasix was restarted yesterday #11 mild pulmonary hypertension-complicates care, management, recovery, and prognosis. #12 generalized debility-patient will need placement in a residential facility, pre-CERT will have to be obtained this week I have reviewed Claudette Mai's progress note including her medical assessment and plan of care and endorse it. Total clinical time spent by myself addressing the patient's medical issues, reviewing the data, and collaborating with patient's care team: 25 minutes Visit Charges Inpatient E&M: 91376 Subs Hosp L3
[2021-08-31] VITALS (9 sets, daily range): BP systolic 120–163; BP diastolic 58–108; PULSE 73–128; RESP 18–20; TEMP 36.3–37.2; O2SAT 94–100
[2021-08-31] MEDS: 0.9% Saline Lock 10 ML Syringe IV ×3 (06:23→21:41)
[2021-08-31] MEDS: Levothyroxine 125 MCG Tablet PO (06:23)
[2021-08-31 07:00] LABS: Albumin, Serum 2.1 g/dL (3.2-5.0); BUN 84 mg/dL (7-18); BUN/Creat Ratio 29.3 RATIO (10-20); Calcium,Total 9.4 mg/dL (8.5-10.1); Chloride 103 mmol/L (98-107); Creatinine, Serum 2.87 mg/dL (0.55-1.02); EST Glomerular Filtration Rate 17 mL/min (>60); Est Glom Filt Rate - Afr Amer 20 mL/min (>60); Estimated Creatinine Clearance 18.87 ml/min; Glucose 110 mg/dL (74-106); Phosphorus 4.2 mg/dL (2.5-4.9); Potassium 5.1 mmol/L (3.5-5.1); Sodium Level 135 mmol/L (136-145)
--- NOTE | 2021-08-31 08:50 | WOUNDNOTE ---
wound photo: left hip
[2021-08-31] MEDS: Ensure Surgery 237 ML LIQUID PO (09:18)
[2021-08-31] MEDS: Metoprolol Tartrate 25 MG Tablet PO ×2 (09:19→21:45)
[2021-08-31] MEDS: APIXABAN 2.5 MG TABLET PO ×2 (09:19→21:45)
[2021-08-31] MEDS: Furosemide 20 MG Tablet PO ×2 (09:19→17:54)
[2021-08-31] MEDS: Psyllium 1 PACKET PO (09:20)
[2021-08-31] MEDS: Pantoprazole Sodium 40 MG Tablet PO ×2 (09:21→21:45)
[2021-08-31] MEDS: Cholecalciferol (VIT D3) 25 MCG TABLET (1,000 UNITS) PO (09:21)
[2021-08-31] MEDS: Clopidogrel Bisulfate 75 MG Tablet PO (09:22)
[2021-08-31] MEDS: Menthol/Lanolin/Calamine/Znox 113 GM Tube 1 APPLIC TOPICAL ×2 (09:22→22:06)
--- NOTE | 2021-08-31 09:54 | PN.RENAL_ITS ---
Subjective Subjective Following for EL on CKD Sitting up in bed, daughter at bedside. No overnight events. Denies any complaints today. Objective Data Objective Data Vital Signs: Vital Signs Temp Pulse Resp BP Pulse Ox O2 Del Method O2 Flow Rate 97.5 F L 128 H 20 H 120/73 94 Nasal Cannula 2 08/31/21 07:58 08/31/21 09:19 08/31/21 07:58 08/31/21 07:58 08/31/21 07:58 08/31/21 09:48 08/31/21 09:48 Oxygen Flow Rate (L/min) 2 Oxygen Delivery Method Nasal Cannula Weight: 99.745 kg Body Mass Index (BMI) 35.4 Intake & Output: Intake and Output for Last 24 Hours 08/29/21 08/30/21 08/31/21 23:59 23:59 23:59 Intake Total 135 / 195 270 / 330 260 / 260 Output Total 550 / 800 1325 / 1575 800 / 800 Balance -415 / -605 -1055 / -1245 -540 / -540 Lab / Micro Data Result Diagrams: 08/30/21 06:03 08/31/21 05:55 Labs: Laboratory Results - last 24 hr 08/31/21 05:55: Sodium 135 L, Potassium 5.1, Chloride 103, Carbon Dioxide 18.0 L , BUN 84 H, Creatinine 2.87 H, Estim Creat Clear Calc 18.87, Est GFR (MDRD) Af Amer 20 L, Est GFR (MDRD) Non-Af 17 L, BUN/Creatinine Ratio 29.3 H, Glucose 110 H, Calcium 9.4, Phosphorus 4.2, Albumin 2.1 L Micro: Microbiology 08/20/21 20:56 Tissue - Hip Gram Stain - Final 08/20/21 20:56 Tissue - Hip Wound Culture - Final 08/20/21 20:56 Tissue - Hip Anaerobic Culture - Final No growth in 5 days. 08/20/21 20:56 Tissue - Hip Gram Stain - Final 08/20/21 20:56 Tissue - Hip Wound Culture - Final No growth aerobically. 08/20/21 20:56 Tissue - Hip Anaerobic Culture - Final No growth in 5 days. 08/20/21 20:56 Tissue - Hip Gram Stain - Final 08/20/21 20:56 Tissue - Hip Wound Culture - Final No growth aerobically. 08/20/21 20:56 Tissue - Hip Anaerobic Culture - Final No growth in 5 days. 08/20/21 20:56 Tissue - Hip Gram Stain - Final 08/20/21 20:56 Tissue - Hip Wound Culture - Final No growth aerobically. 08/20/21 20:56 Tissue - Hip Anaerobic Culture - Final No growth in 5 days. 08/20/21 20:56 Tissue - Hip Gram Stain - Final 08/20/21 20:56 Tissue - Hip Wound Culture - Final Proteus mirabilis 08/20/21 20:56 Tissue - Hip Anaerobic Culture - Final Bacteroides fragilis group 08/23/21 06:25 Urine, Catheterized Urine Culture - Final Culture exhibits no growth. 08/18/21 16:47 Blood Culture (Wb) - Anticubital Left Blood Culture - Final No growth in 5 days. 08/18/21 16:52 Blood Culture (Wb) - Anticubital Right Blood Culture - Final No growth in 5 days. 08/23/21 09:52 Stool Stool Occult Blood (ALYCE) - Final Occult Blood Positive Physical Exam Narrative Const: Alert and oriented. No apparent distress HEENT: Normocephalic, oral mucosa and lips moist Cardio: S1, S2, RRR Respiratory: Lung sounds clear anteriorly. Diminished breath sounds posterior bases. No rales or rhonchi noted Extremities: 1+ edema to bilateral lower legs. Edema noted bilateral arms, improved. Edema in left hip. Wound vac in place to left hip Indwelling [place] with straw-colored urine in bag Assessment & Plan Assessment/Plan (1) Acute kidney injury superimposed on CKD: (2) Left hip prosthetic joint infection: (3) Anemia: (4) HFrEF (heart failure with reduced ejection fraction): PLAN: Plan - Nonoliguric EL on CKD; EL secondary to prolonged effective blood volume depletion likely has progressed now to ATN. Creatinine 1.7 mg/dL on admission, creatinine peaked at 4.00 mg/dL on 08/27 and today improvement in renal function, creatinine is 2.87 mg/dL. Renal US did not show any hydronephrosis. UA negative for blood, protein 15. Patient is non-oliguric, no significant uremic symptoms. Urine output has picked up, 1.3L 08/30. Potassium slightly elevated, acceptable. Reviewed foods high in potassium with patient and daughter. Bicarb slightly low but acceptable. At this time there is no acute indication for SYSTEM TECHNOLOGIST. Recommend strict I&O. Recommend avoiding nephrotoxic agents. -CXR reviewed: mild degree of CHF, we decreased IVF rate on 08/27, and stopped IV fluids altogether on 08/28. Patient is on O2 2 L nasal cannula and at times on room air. Encouraged patient to be sitting up in chair during the day. Bps slightly low and there are holding parameters on lopressor -Patient has poor solute and fluid intake, encouraged patient to increase solute and fluid intake. Continue Ensure as ordered. - History for heart failure with reduced EF,?estimated ejection fraction of 40 to 45%.? She had been on furosemide 20 mg IV twice daily since admission but this was stopped Tuesday due to rising Creatinine. Off IVF as of 08/28. Restarted back on Lasix 20 mg p.o. twice daily 08/29. Though patient has edema, this may also be third spacing. Her albumin is 2.0. Patient has very poor oral intake. Encourage patient to maintain adequate fluid intake especially while on diuretic. Will need to adjust diuretics on day-to-day basis based on oral intake, diarrhea and edema. Gave extra 20 mg Lasix on 08/30. No change in diuretic today. Also asked patient to elevate arms up on pillows when laying in bed. - left hip infection and had been receiving vancomycin.? Her Vanco trough and random Vanco levels were slightly elevated. Off Vanco and currently on meropenem for antibiotic coverage - metabolic acidosis likely from EL and diarrhea. Will follow bicarb trends. Bicarb stable. Had multiple episodes of loose bowel movements over the weekend - Patient has CKD stage III/IV with risk factors including hypertension, coronary artery disease and heart failure.? Suspect chronic fluctuating creatinine levels from cardiorenal syndrome physiology.? Baseline serum creatinine ranging around 1.7 to 2 mg/dL. - Patient did have a stool positive for occult blood, seen by GI.? Hemoglobin was 11.4 on admission and is trending up.? She did have upper GI with findings of bleeding esophageal ulcer which was treated with heater probe and biopsied, also has small hiatal hernia and gastritis which was biopsied.? Patient is on PPI. -We will continue monitor renal function, monitor for renal recovery. Labs ordered for tomorrow. -Discharge planning in process
[2021-08-31] MEDS: Oxymetazoline 0.05% 1 SPRAY SPRAY.BTL NASAL ×2 (10:30→22:07)
[2021-08-31] MEDS: Gabapentin 300 MG Capsule PO (10:30)
--- NOTE | 2021-08-31 11:28 | PN.HOSP_ITS ---
Documented by User: Claudette Mai NP, WEATHERIZATION OPERATIONS MANAGER-C 08/31/21 11:33 Subjective Subjective Patient seen and examined. More alert this morning. Remains on 2 L supplemental oxygen. Reports feeling fatigued and intermittently short of breath. Daughter at bedside, answered questions and concerns. Objective Data Objective Data Vital Signs: Vital Signs Temp Pulse Resp BP Pulse Ox O2 Del Method O2 Flow Rate 97.5 F L 128 H 20 H 120/73 94 Nasal Cannula 2 08/31/21 07:58 08/31/21 09:19 08/31/21 07:58 08/31/21 07:58 08/31/21 07:58 08/31/21 09:48 08/31/21 09:48 Oxygen Flow Rate (L/min) 2 Oxygen Delivery Method Nasal Cannula Weight: 219 lb 14.4 oz Body Mass Index (BMI) 35.4 Intake & Output: Intake and Output for Last 24 Hours 08/29/21 08/30/21 08/31/21 23:59 23:59 23:59 Intake Total 135 / 195 270 / 330 320 / 320 Output Total 550 / 800 1325 / 1575 800 / 800 Balance -415 / -605 -1055 / -1245 -480 / -480 Lab / Micro Data Result Diagrams: 08/30/21 06:03 08/31/21 05:55 Labs: Laboratory Results - last 24 hr 08/31/21 05:55: Sodium 135 L, Potassium 5.1, Chloride 103, Carbon Dioxide 18.0 L , BUN 84 H, Creatinine 2.87 H, Estim Creat Clear Calc 18.87, Est GFR (MDRD) Af Amer 20 L, Est GFR (MDRD) Non-Af 17 L, BUN/Creatinine Ratio 29.3 H, Glucose 110 H, Calcium 9.4, Phosphorus 4.2, Albumin 2.1 L Micro: Microbiology 08/20/21 20:56 Tissue - Hip Gram Stain - Final 08/20/21 20:56 Tissue - Hip Wound Culture - Final 08/20/21 20:56 Tissue - Hip Anaerobic Culture - Final No growth in 5 days. 08/20/21 20:56 Tissue - Hip Gram Stain - Final 08/20/21 20:56 Tissue - Hip Wound Culture - Final No growth aerobically. 08/20/21 20:56 Tissue - Hip Anaerobic Culture - Final No growth in 5 days. 08/20/21 20:56 Tissue - Hip Gram Stain - Final 08/20/21 20:56 Tissue - Hip Wound Culture - Final No growth aerobically. 08/20/21 20:56 Tissue - Hip Anaerobic Culture - Final No growth in 5 days. 08/20/21 20:56 Tissue - Hip Gram Stain - Final 08/20/21 20:56 Tissue - Hip Wound Culture - Final No growth aerobically. 08/20/21 20:56 Tissue - Hip Anaerobic Culture - Final No growth in 5 days. 08/20/21 20:56 Tissue - Hip Gram Stain - Final 08/20/21 20:56 Tissue - Hip Wound Culture - Final Proteus mirabilis 08/20/21 20:56 Tissue - Hip Anaerobic Culture - Final Bacteroides fragilis group 08/23/21 06:25 Urine, Catheterized Urine Culture - Final Culture exhibits no growth. 08/18/21 16:47 Blood Culture (Wb) - Anticubital Left Blood Culture - Final No growth in 5 days. 08/18/21 16:52 Blood Culture (Wb) - Anticubital Right Blood Culture - Final No growth in 5 days. 08/23/21 09:52 Stool Stool Occult Blood (ALYCE) - Final Occult Blood Positive Physical Exam Const alert and oriented x3 Constitutional Narrative: Fatigued appearing HEENT normocephalic and moist oral mucous membranes Eyes PERRL, EOMs intact bilaterally and conjunctivae normal Neck no lymphadenopathy Resp Auscultation: crackles bilateral base (Fine scattered crackles) and diminished lung sounds Cardio regular rate, regular rhythm and no murmurs Peripheral Pulses: pulses 2+ throughout GI normal to inspection, nondistended, normoactive bowel sounds, non-tender and non-distended Extremity normal to inspection General Extremity: edema bilateral (Generalized) upper extremity and lower extremity Skin no rashes or lesions noted Lesions: no lesions Rashes: no rashes Trauma: no lacerations or abrasions Neuro CN's II-XII intact bilaterally, no focal motor deficits, no sensory deficits noted and deep tendon reflexes 2+ bilaterally Psych mental status grossly normal and affect normal Assessment & Plan Assessment/Plan (1) Left hip prosthetic joint infection: PLAN: Plan 1.? Infected left hip seroma/prosthetic joint infection-ID and orthopedic medicine following.? Underwent irrigation and debridement of left hip infected seroma 08/20/2021.? IV Rocephin changed to IV meropenem due to rash.? Rash improved.? Plan for ertapenem at discharge, patient will need first dose prior to DC.? PICC line ordered. 2. Acute kidney injury on chronic kidney disease stage IIIb-nephrology consulted.? Hold nephrotoxic regimen. Renal ultrasound unremarkable.? Creatinine trending down.? Trend BMP. 3. CAD-on Plavix, metoprolol.? Allergy to statin. 4. Hypertension-stable, continue current regimen. 5. Hypothyroidism-continue Synthroid regimen. 6. Acute blood loss anemia secondary to upper GI bleed-underwent EGD 08/24/2021 which demonstrated bleeding esophageal ulcer, small hiatal hernia, gastritis, esophageal ring which was not dilated due to patient being on anticoagulation.? Continue PPI.? CBC stable. 7.? Mild acute heart failure with reduced ejection fraction-no hypoxia.? IV fluids discontinued.? Echocardiogram 06/22/2021 with EF 40%.? Initiated on Lasix 20 mg twice daily.? Further adjustment in diuretics per nephrology. DVT prophylaxis-Hamzah This patient was seen by VANE Ames under the supervision of Dr. Mcrae. Discharge planning: Plan on SNF pending available bed at TCU with ongoing IV antibiotics with stop date 10/01/2021. Continue gentle diuresis. Time spent examining patient, reviewing data and subsequent management of care: 12 minutes Documented by User: Dr. Valeri Mcrae MD 08/31/21 15:10 Objective Data Lab / Micro Data Result Diagrams: 08/30/21 06:03 08/31/21 05:55 Assessment & Plan Assessment/Plan (1) Left hip prosthetic joint infection: Charges/Coding Addendum Addendum: Patient seen by Claudette GUERREROC under my supervision Patient seen and examined. Her daughter was by her bedside. Patient had no active complaints. She denied any fever, chills, nausea vomiting or diarrhea. Her daughter expressed concern about her mother's edema and also inquired about a feeding tube as she said her mother was not eating very well. She also asked if patient would be started on dialysis. O/E: Const alert and oriented x3, morbidly obese, frail HEENT normocephalic and moist oral mucous membranes Eyes PERRL, EOMs intact bilaterally and conjunctivae normal Neck no lymphadenopathy Resp Auscultation: mildly diminished breath sounds bibasally, no wheezes or crackles. Cardio regular rate, regular rhythm and no murmurs Peripheral Pulses: pulses 2+ throughout GI normal to inspection, nondistended, normoactive bowel sounds, non-tender and non-distended Extremity normal to inspection General Extremity: edema bilateral (Generalized) upper extremity and lower extremity Skin no rashes or lesions noted Lesions: no lesions Rashes: no rashes Trauma: no lacerations or abrasions Neuro CN's II-XII intact bilaterally, no focal motor deficits, no sensory deficits noted and deep tendon reflexes 2+ bilaterally Psych mental status grossly normal and affect normal Assessment and plan #Infected left hip prosthetic joint * S/p irrigation and debridement on 08/20/2021. Currently on IV meropenem. * ID and orthopedics on board. * Plan is for patient to be discharged old ertapenem. PICC line ordered. * #EL on CKD stage IIIb: * Nephrology on board. Renal ultrasound was unremarkable. Creatinine is started trending down. Monitor. * Daughter counseled that nephrology has no plans of initiating dialysis at the moment. #CAD: On Plavix and metoprolol. #hypertension: On metoprolol #hypothyroidism: On Synthroid Acute blood loss anemia due to bleeding peptic ulcer * Resolved. Had an EGD on 08/24/2021 which showed bleeding esophageal ulcer and small hiatal hernia as well as gastritis and also showed an esophageal ring which was not dilated. On IV PPI. * Daughter counseled a feeding tube is not a good idea for the patient at this stage she is on dietary supplements and should be encouraged to eat. * #Heart failure with reduced action fraction: * Has known EF of 20%. 2D echo done showed EF of 40%. * Being gently diuresed. * Nephrology on board to help with adjusting diuretic dose. * #DVT prophylaxis: currently on Eliquis Total time spent on care of the patient today: 18 minutes with Claudette Mai spending 12 minutes making a total of 30 minutes. Visit Charges Inpatient E&M: 79622 Subs Hosp L2
[2021-08-31] MEDS: Multivitamins,Ther W-Minerals Tablet 1 TABLET PO (13:02)
[2021-08-31] MEDS: Ascorbic Acid 500 MG Tablet PO ×2 (13:03→17:55)
[2021-08-31] MEDS: Ferrous Sulfate 325 MG Tablet PO ×2 (13:03→17:54)
[2021-08-31] MEDS: Calcium (Elemental) 500 MG Tablet PO ×2 (13:03→17:54)
--- NOTE | 2021-08-31 14:05 | PCM.PN.ID ---
Physical Exam Narrative Not feeling well, no fever, no rash Const alert and no apparent distress Resp normal air movement and clear to auscultation bilaterally Cardio regular rate and regular rhythm GI soft to palpation, non-tender and non-distended Skin no rashes or lesions noted ID ID: Route of nutrition/ use of supplements: [] Nutritional Intake: [] IV Site: [] Hudson Catheter: [] Assessment & Plan Assessment/Plan (1) Left hip prosthetic joint infection: PLAN: s/p OR 08/20/[address] Nettles for I&D and revision of L hip. One surg cx with proteus and bacteroides. Now course complicated by worsening EL. 08/24 changed abx to ceftriaxone. Neph consulted. Plan on 6 weeks iv abx, stop date 10/01/21. Now with rash, 08/26 changed ceftriaxone to janay. EL now steadily improving, rash resolved. Plan on ertapenem at discharge, will need first dose (0.5gm daily) prior to leaving. Will follow. ID followup in 2 weeks, or I can see her at TCU or rehab here if that is where she goes.
[2021-09-01 00:32] VITALS: PULSE 104; RESP 18; O2SAT 98
[2021-09-01] MEDS: 0.9% Saline Lock 10 ML Syringe IV ×2 (00:33→21:12)
[2021-09-01 03:58] VITALS: BP 123/53; PULSE 110; RESP 18; TEMP 36.6; O2SAT 97
[2021-09-01] MEDS: Levothyroxine 125 MCG Tablet PO (04:12)
[2021-09-01 06:35] LABS: Absolute Lymphocyte Count 1.03 X10^3/uL (0.83-4.51); Absolute Neutrophil Count 6.3 X10^3/uL (2.0-7.7); Basophil# 0.07 X10^3/uL; Basophil% 0.8 % (0-1); Eosinophil# 0.43 X10^3/uL; Eosinophils% 4.7 % (0-5); Hematocrit 29.5 % (37-47); Lymphocyte # 1.03 X10^3/ul (0.83-4.51); Lymphocyte % 11.2 % (19-41); Mean Corp Hgb Conc 30.5 g/dL (32-36); Mean Corpuscular Hgb 29.5 pg (27.0-32.0); Mean Corpuscular Volume 96.7 fL (81-99); Mean Platelet Vol. 10.1 fl (6.2-12.0); Monocyte# 1.01 X10^3/uL; NRBC Flagged by Analyzer 0.5 % (0-5); Neutrophil # 6.34 X10^3/uL (2.7-7.7); Neutrophil % 68.9 % (47-70); POSITIVE MORPHOLOGY YES; Platelet Count 299 K/mm3 (150-450); RBC Distribution Width CV 20.7 % (11.6-14.6); RBC Distribution Width SD 68.5 fl (35.1-43.9); Red Blood Count 3.05 M/mm3 (4.2-5.4); White Blood Count 9.2 K/mm3 (4.4-11.0)
[2021-09-01 06:39] LABS: Differential Indicated SCAN CRITERIA MET
[2021-09-01 06:57] LABS: BUN 81 mg/dL (7-18); BUN/Creat Ratio 32.5 RATIO (10-20); Calcium,Total 9.1 mg/dL (8.5-10.1); Chloride 107 mmol/L (98-107); Creatinine, Serum 2.49 mg/dL (0.55-1.02); EST Glomerular Filtration Rate 20 mL/min (>60); Est Glom Filt Rate - Afr Amer 24 mL/min (>60); Estimated Creatinine Clearance 25.78 ml/min; Glucose 118 mg/dL (74-106); Magnesium 2.4 mg/dL (1.6-2.6); Phosphorus 4.1 mg/dL (2.5-4.9); Potassium 4.7 mmol/L (3.5-5.1); Sodium Level 139 mmol/L (136-145)
[2021-09-01 06:59] LABS: Anisocytosis 2+; Differential Comment SCANNED; Macrocytosis 2+
[2021-09-01 07:33] VITALS: BP 139/70; PULSE 102; RESP 18; TEMP 36.7; O2SAT 97
[2021-09-01] MEDS: Menthol/Lanolin/Calamine/Znox 113 GM Tube 1 APPLIC TOPICAL ×2 (10:21→21:11)
[2021-09-01] MEDS: Oxymetazoline 0.05% 1 SPRAY SPRAY.BTL NASAL ×2 (10:21→21:11)
[2021-09-01 10:22] VITALS: PULSE 102
[2021-09-01] MEDS: Metoprolol Tartrate 25 MG Tablet PO ×2 (10:22→21:10)
[2021-09-01] MEDS: APIXABAN 2.5 MG TABLET PO ×2 (10:22→21:12)
[2021-09-01] MEDS: Furosemide 20 MG Tablet PO ×2 (10:22→17:07)
--- NOTE | 2021-09-01 10:22 | PN.HOSP_ITS ---
Documented by User: Claudette Mai NP, CYBER INSTRUCTOR-C 09/01/21 10:27 Subjective Subjective Patient seen and examined. Daughter at bedside. Patient reports improved appetite this morning. Continues to have a generalized swelling. Denies increased shortness of breath. Objective Data Objective Data Vital Signs: Vital Signs Temp Pulse Resp BP Pulse Ox O2 Del Method O2 Flow Rate 98.1 F 102 H 18 139/70 H 97 Nasal Cannula 2 09/01/21 07:33 09/01/21 07:33 09/01/21 07:33 09/01/21 07:33 09/01/21 07:33 09/01/21 07:37 09/01/21 07:37 Oxygen Flow Rate (L/min) 2 Oxygen Delivery Method Nasal Cannula Weight: 214 lb 1.102 oz Body Mass Index (BMI) 35.4 Intake & Output: Intake and Output for Last 24 Hours 08/30/21 08/31/21 09/01/21 23:59 23:59 23:59 Intake Total 270 / 330 1880 / 1880 Output Total 1325 / 1575 2550 / 2550 400 / 400 Balance -1055 / -1245 -670 / -670 -400 / -400 Lab / Micro Data Result Diagrams: 09/01/21 06:05 09/01/21 06:05 Labs: Laboratory Results - last 24 hr 09/01/21 06:05: Sodium 139, Potassium 4.7, Chloride 107, Carbon Dioxide 21.0, BUN 81 H, Creatinine 2.49 H, Estim Creat Clear Calc 25.78, Est GFR (MDRD) Af Amer 24 L, Est GFR (MDRD) Non-Af 20 L, BUN/Creatinine Ratio 32.5 H, Glucose 118 H, Calcium 9.1, Phosphorus 4.1, Magnesium 2.4, Albumin 2.0 L 09/01/21 06:05: WBC 9.2, RBC 3.05 L, Hgb 9.0 L, Hct 29.5 L, MCV 96.7, MCH 29.5, MCHC 30.5 L, RDW Std Deviation 68.5 H, RDW Coeff of Leatha 20.7 H, Plt Count 299, MPV 10.1, Immature Gran % (Auto) 3.400 H, Neut % (Auto) 68.9, Lymph % (Auto) 11.2 L, [place] % (Auto) 11.0 H, Eos % (Auto) 4.7, Baso % (Auto) 0.8, Absolute Neuts (auto) 6.3, Absolute Lymphs (auto) 1.03, Nucleated RBC % 0.5, Differential Comment SCANNED, Anisocytosis 2+, Macrocytosis 2+ Micro: Microbiology 08/20/21 20:56 Tissue - Hip Gram Stain - Final 08/20/21 20:56 Tissue - Hip Wound Culture - Final 08/20/21 20:56 Tissue - Hip Anaerobic Culture - Final No growth in 5 days. 08/20/21 20:56 Tissue - Hip Gram Stain - Final 08/20/21 20:56 Tissue - Hip Wound Culture - Final No growth aerobically. 08/20/21 20:56 Tissue - Hip Anaerobic Culture - Final No growth in 5 days. 08/20/21 20:56 Tissue - Hip Gram Stain - Final 08/20/21 20:56 Tissue - Hip Wound Culture - Final No growth aerobically. 08/20/21 20:56 Tissue - Hip Anaerobic Culture - Final No growth in 5 days. 08/20/21 20:56 Tissue - Hip Gram Stain - Final 08/20/21 20:56 Tissue - Hip Wound Culture - Final No growth aerobically. 08/20/21 20:56 Tissue - Hip Anaerobic Culture - Final No growth in 5 days. 08/20/21 20:56 Tissue - Hip Gram Stain - Final 08/20/21 20:56 Tissue - Hip Wound Culture - Final Proteus mirabilis 08/20/21 20:56 Tissue - Hip Anaerobic Culture - Final Bacteroides fragilis group 08/23/21 06:25 Urine, Catheterized Urine Culture - Final Culture exhibits no growth. 08/18/21 16:47 Blood Culture (Wb) - Anticubital Left Blood Culture - Final No growth in 5 days. 08/18/21 16:52 Blood Culture (Wb) - Anticubital Right Blood Culture - Final No growth in 5 days. 08/23/21 09:52 Stool Stool Occult Blood (ALYCE) - Final Occult Blood Positive Physical Exam Const alert and oriented x3 HEENT normocephalic and moist oral mucous membranes Eyes PERRL, EOMs intact bilaterally and conjunctivae normal Neck no lymphadenopathy Resp clear to auscultation bilaterally Auscultation: diminished lung sounds Cardio regular rate, regular rhythm and no murmurs Peripheral Pulses: pulses 2+ throughout GI normal to inspection, nondistended, normoactive bowel sounds, non-tender and non-distended Extremity normal to inspection General Extremity: edema bilateral upper extremity and lower extremity Skin no rashes or lesions noted Lesions: no lesions Rashes: no rashes Trauma: no lacerations or abrasions Neuro CN's II-XII intact bilaterally, no focal motor deficits, no sensory deficits noted and deep tendon reflexes 2+ bilaterally Psych mental status grossly normal and affect normal Assessment & Plan Assessment/Plan (1) Left hip prosthetic joint infection: PLAN: Plan 1.? Infected left hip seroma/prosthetic joint infection-ID and orthopedic medicine following.? Underwent irrigation and debridement of left hip infected seroma 08/20/2021.? IV Rocephin changed to IV meropenem due to rash.? Rash resolved.? Plan for ertapenem at discharge, patient will need first dose prior to DC.? PICC line in place. Awaiting bed at TCU. 2. Acute kidney injury on chronic kidney disease stage IIIb-nephrology consulted. Renal ultrasound unremarkable.? Creatinine trending down.? Trend BMP. 3. CAD-on Plavix, metoprolol.? Allergy to statin. 4. Hypertension-stable, continue current regimen. 5. Hypothyroidism-continue Synthroid regimen. 6. Acute blood loss anemia secondary to upper GI bleed-underwent EGD 08/24/2021 which demonstrated bleeding esophageal ulcer, small hiatal hernia, gastritis, esophageal ring which was not dilated due to patient being on anticoagulation.? Continue PPI.? CBC stable. 7.? Mild acute heart failure with reduced ejection fraction-no hypoxia.? IV fluids discontinued.? Echocardiogram 06/22/2021 with EF 40%.? Initiated on Lasix 20 mg twice daily.? Further adjustment in diuretics per nephrology. DVT prophylaxis-Hamzah This patient was seen by VANE Ames under the supervision of Dr. Mcrae. Discharge planning: Plan on SNF pending available bed at TCU with ongoing IV antibiotics with stop date 10/01/2021.? Continue gentle diuresis. Time spent examining patient, reviewing data and subsequent management of care: 12 minutes Documented by User: Dr. Valeri Mcrae MD 09/01/21 15:13 Objective Data Lab / Micro Data Result Diagrams: 09/01/21 06:05 09/01/21 06:05 Assessment & Plan Assessment/Plan (1) Left hip prosthetic joint infection: Charges/Coding Addendum Addendum: Patient seen by Claudette CIFUENTES under my supervision Patient seen and examined. Her daughter was by her bedside. She had no active complaints today. Daughter says she was able to eat a bit more than yesterday. She still has edema of her UEs. Review of systems is otherwise negative. O/E; Const alert and oriented x3, morbidly obese, frail HEENT normocephalic and moist oral mucous membranes Eyes PERRL, EOMs intact bilaterally and conjunctivae normal Neck no lymphadenopathy Resp Auscultation: mildly diminished breath sounds bibasally, no wheezes or crackles. Cardio regular rate, regular rhythm and no murmurs Peripheral Pulses: pulses 2+ throughout GI normal to inspection, nondistended, normoactive bowel sounds, non-tender and non-distended Extremity normal to inspection General Extremity: edema bilateral (Generalized) upper extremity and lower extremity Skin no rashes or lesions noted Lesions: no lesions Rashes: no rashes Trauma: no lacerations or abrasions Neuro CN's II-XII intact bilaterally, no focal motor deficits, no sensory deficits noted and deep tendon reflexes 2+ bilaterally Psych mental status grossly normal and affect normal Assessment and plan #Infected left hip prosthetic joint * S/p irrigation and debridement on 08/20/2021.? Currently on IV meropenem. * ID and orthopedics on board. * Plan is for patient to be discharged old ertapenem.? PICC line ordered. Stop date is 10/01/2021 * #EL on CKD stage IIIb: * ?Nephrology on board.? Renal ultrasound was unremarkable.? Creatinine has trended down even further. * Daughter counseled that nephrology has no plans of initiating dialysis at the moment. * #CAD: On Plavix and metoprolol. ?#hypertension: On metoprolol #hypothyroidism: On Synthroid Acute blood loss anemia due to bleeding peptic ulcer * Resolved.? Had an EGD on 08/24/2021 which showed bleeding esophageal ulcer and small hiatal hernia as well as gastritis and also showed an esophageal ring which was not dilated.? On IV PPI. * Daughter counseled a feeding tube is not a good idea for the patient at this stage she is on dietary supplements and should be encouraged to eat. * #Heart failure with reduced action fraction: * Has known EF of 20%.? 2D echo done showed EF of 40%. * ?Being gently diuresed.? * Nephrology on board to help with adjusting diuretic dose. * #DVT prophylaxis: currently on Eliquis Disposition: awaiting placement in TCU. Total time spent on care of the patient today: 15 minutes with Claudette Mai spending 12 minutes making a total of 27 minutes. Visit Charges Inpatient E&M: 95371 Subs Hosp L2
[2021-09-01] MEDS: Clopidogrel Bisulfate 75 MG Tablet PO (10:23)
[2021-09-01] MEDS: Pantoprazole Sodium 40 MG Tablet PO ×2 (10:24→21:15)
[2021-09-01] MEDS: Cholecalciferol (VIT D3) 25 MCG TABLET (1,000 UNITS) PO (10:24)
[2021-09-01] MEDS: Gabapentin 300 MG Capsule PO (10:27)
--- NOTE | 2021-09-01 10:45 | PCM.PN.REN ---
Subjective Subjective Following for EL on CKD No overnight events. Reports improved appetite. Denies any nausea or vomiting. States diarrhea improved. Objective Data Objective Data Vital Signs: Vital Signs Temp Pulse Resp BP Pulse Ox O2 Del Method O2 Flow Rate 98.1 F 102 H 18 139/70 H 97 Nasal Cannula 2 09/01/21 07:33 09/01/21 10:22 09/01/21 07:33 09/01/21 07:33 09/01/21 07:33 09/01/21 07:37 09/01/21 07:37 Oxygen Flow Rate (L/min) 2 Oxygen Delivery Method Nasal Cannula Weight: 97.1 kg Body Mass Index (BMI) 35.4 Intake & Output: Intake and Output for Last 24 Hours 08/30/21 08/31/21 09/01/21 23:59 23:59 23:59 Intake Total 270 / 330 1880 / 1880 Output Total 1325 / 1575 2550 / 2550 400 / 400 Balance -1055 / -1245 -670 / -670 -400 / -400 Lab / Micro Data Result Diagrams: 09/01/21 06:05 09/01/21 06:05 Labs: Laboratory Results - last 24 hr 09/01/21 06:05: Sodium 139, Potassium 4.7, Chloride 107, Carbon Dioxide 21.0, BUN 81 H, Creatinine 2.49 H, Estim Creat Clear Calc 25.78, Est GFR (MDRD) Af Amer 24 L, Est GFR (MDRD) Non-Af 20 L, BUN/Creatinine Ratio 32.5 H, Glucose 118 H, Calcium 9.1, Phosphorus 4.1, Magnesium 2.4, Albumin 2.0 L 09/01/21 06:05: WBC 9.2, RBC 3.05 L, Hgb 9.0 L, Hct 29.5 L, MCV 96.7, MCH 29.5, MCHC 30.5 L, RDW Std Deviation 68.5 H, RDW Coeff of Leatha 20.7 H, Plt Count 299, MPV 10.1, Immature Gran % (Auto) 3.400 H, Neut % (Auto) 68.9, Lymph % (Auto) 11.2 L, [place] % (Auto) 11.0 H, Eos % (Auto) 4.7, Baso % (Auto) 0.8, Absolute Neuts (auto) 6.3, Absolute Lymphs (auto) 1.03, Nucleated RBC % 0.5, Differential Comment SCANNED, Anisocytosis 2+, Macrocytosis 2+ Micro: Microbiology 08/20/21 20:56 Tissue - Hip Gram Stain - Final 08/20/21 20:56 Tissue - Hip Wound Culture - Final 08/20/21 20:56 Tissue - Hip Anaerobic Culture - Final No growth in 5 days. 08/20/21 20:56 Tissue - Hip Gram Stain - Final 08/20/21 20:56 Tissue - Hip Wound Culture - Final No growth aerobically. 08/20/21 20:56 Tissue - Hip Anaerobic Culture - Final No growth in 5 days. 08/20/21 20:56 Tissue - Hip Gram Stain - Final 08/20/21 20:56 Tissue - Hip Wound Culture - Final No growth aerobically. 08/20/21 20:56 Tissue - Hip Anaerobic Culture - Final No growth in 5 days. 08/20/21 20:56 Tissue - Hip Gram Stain - Final 08/20/21 20:56 Tissue - Hip Wound Culture - Final No growth aerobically. 08/20/21 20:56 Tissue - Hip Anaerobic Culture - Final No growth in 5 days. 08/20/21 20:56 Tissue - Hip Gram Stain - Final 08/20/21 20:56 Tissue - Hip Wound Culture - Final Proteus mirabilis 08/20/21 20:56 Tissue - Hip Anaerobic Culture - Final Bacteroides fragilis group 08/23/21 06:25 Urine, Catheterized Urine Culture - Final Culture exhibits no growth. 08/18/21 16:47 Blood Culture (Wb) - Anticubital Left Blood Culture - Final No growth in 5 days. 08/18/21 16:52 Blood Culture (Wb) - Anticubital Right Blood Culture - Final No growth in 5 days. 08/23/21 09:52 Stool Stool Occult Blood (ALYCE) - Final Occult Blood Positive Physical Exam Narrative Const: Alert and oriented. No apparent distress HEENT: Normocephalic, oral mucosa and lips moist Cardio: S1, S2, RRR Respiratory: Lung sounds clear anteriorly. No rales or rhonchi noted Extremities: 1+ edema to bilateral lower legs. Edema noted bilateral arms, improved. Edema in left hip. Wound vac in place to left hip Indwelling Hudson with straw-colored urine in bag Assessment & Plan Assessment/Plan (1) Acute kidney injury superimposed on CKD: (2) Left hip prosthetic joint infection: (3) Anemia: (4) HFrEF (heart failure with reduced ejection fraction): PLAN: Plan - Nonoliguric EL on CKD; EL secondary to prolonged effective blood volume depletion likely has progressed now to ATN. Creatinine 1.7 mg/dL on admission, creatinine peaked at 4.00 mg/dL on 08/27 and continues to have improvement in renal function, creatinine is 2.49mg/dL. Renal US did not show any hydronephrosis. UA negative for blood, protein 15. Patient is non-oliguric, no significant uremic symptoms. Urine output has picked up. Potassium and bicarb acceptable. 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 Recommend strict I&O. Recommend avoiding nephrotoxic agents. -CXR reviewed: mild degree of CHF, we decreased IVF rate on 08/27, and stopped IV fluids altogether on 08/28. Patient is on O2 2 L nasal cannula and at times on room air. Encouraged patient to be sitting up in chair during the day. Bps slightly low and there are holding parameters on lopressor -Patient has poor solute and fluid intake, encouraged patient to increase solute and fluid intake. Continue Ensure as ordered. - History for heart failure with reduced EF,?estimated ejection fraction of 40 to 45%.? She had been on furosemide 20 mg IV twice daily since admission but this was stopped Tuesday due to rising Creatinine. Off IVF as of 08/28. Restarted back on Lasix 20 mg p.o. twice daily 08/29. Will increase am lasix to 40mg and pm dose 20mg daily. Though patient has edema, this may also be third spacing. Her albumin is 2.0. Patient has very poor oral intake but is now improving. Encourage patient to maintain adequate fluid intake especially while on diuretic. While in hospital will need to adjust diuretics on day-to-day basis based on oral intake, diarrhea and edema. Gave extra 20 mg Lasix on 08/30. Asked patient to elevate arms up on pillows when laying in bed. - left hip infection and had been receiving vancomycin.? Her Vanco trough and random Vanco levels were slightly elevated. Off Vanco and currently on meropenem for antibiotic coverage - metabolic acidosis likely from EL and diarrhea. Will follow bicarb trends. Bicarb stable. Had multiple episodes of loose bowel movements over the weekend - Patient has CKD stage III/IV with risk factors including hypertension, coronary artery disease and heart failure.? Suspect chronic fluctuating creatinine levels from cardiorenal syndrome physiology.? Baseline serum creatinine ranging around 1.7 to 2 mg/dL. - Patient did have a stool positive for occult blood, seen by GI.? Hemoglobin was 11.4 on admission and is trending up.? She did have upper GI with findings of bleeding esophageal ulcer which was treated with heater probe and biopsied, also has small hiatal hernia and gastritis which was biopsied.? Patient is on PPI. -We will continue monitor renal function, monitor for renal recovery. Labs ordered for tomorrow. -Discharge planning in process. Discussed with discharge planning team.
--- NOTE | 2021-09-01 11:17 | CASEMGMT ---
Social Work SW spoke with Jamee in TCU and a bed will possibly be available tomorrow for pt. SW will follow up with TCU tomorrow to confirm bed availability. YOAN Payan
[2021-09-01] MEDS: Multivitamins,Ther W-Minerals Tablet 1 TABLET PO (11:33)
[2021-09-01] MEDS: Calcium (Elemental) 500 MG Tablet PO ×2 (11:33→17:06)
[2021-09-01] MEDS: Ferrous Sulfate 325 MG Tablet PO ×2 (11:33→17:06)
[2021-09-01] MEDS: Ascorbic Acid 500 MG Tablet PO ×2 (11:34→17:07)
[2021-09-01 16:53] VITALS: BP 129/65; PULSE 74; RESP 16; TEMP 36.4; O2SAT 93
[2021-09-01 21:10] VITALS: BP 134/55; PULSE 119; RESP 18; TEMP 37; O2SAT 96
[2021-09-02] VITALS (7 sets, daily range): BP systolic 123–151; BP diastolic 68–96; PULSE 98–123; RESP 16; TEMP 36.4–37.1; O2SAT 93–98
[2021-09-02] MEDS: Levothyroxine 125 MCG Tablet PO (05:30)
[2021-09-02] MEDS: Acetaminophen 325 MG Tablet 650 MG PO (05:58)
[2021-09-02 07:01] LABS: Absolute Lymphocyte Count 1.17 X10^3/uL (0.83-4.51); Absolute Neutrophil Count 8.1 X10^3/uL (2.0-7.7); Basophil% 0.9 % (0-1); Eosinophil# 0.27 X10^3/uL; Eosinophils% 2.5 % (0-5); Hematocrit 31.5 % (37-47); Hemoglobin 9.7 g/dL (12.0-15.0); Lymphocyte # 1.17 X10^3/ul (0.83-4.51); Lymphocyte % 10.6 % (19-41); Mean Corp Hgb Conc 30.8 g/dL (32-36); Mean Corpuscular Hgb 29.3 pg (27.0-32.0); Mean Corpuscular Volume 95.2 fL (81-99); Mean Platelet Vol. 10.2 fl (6.2-12.0); Monocyte# 1.17 X10^3/uL; Monocyte% 10.6 % (0-10); NRBC Flagged by Analyzer 0.5 % (0-5); Neutrophil # 8.07 X10^3/uL (2.7-7.7); Neutrophil % 73.3 % (47-70); POSITIVE MORPHOLOGY YES; Platelet Count 309 K/mm3 (150-450); RBC Distribution Width CV 21.4 % (11.6-14.6); RBC Distribution Width SD 69.1 fl (35.1-43.9); Red Blood Count 3.31 M/mm3 (4.2-5.4)
[2021-09-02 07:03] LABS: Differential Indicated SCAN CRITERIA MET
[2021-09-02 07:21] LABS: Anisocytosis 1+; Differential Comment SCANNED
[2021-09-02 07:22] LABS: Microcytosis 1+; Polychromasia RARE
[2021-09-02 07:38] LABS: Anion Gap 10 (5-15); BUN 79 mg/dL (7-18); BUN/Creat Ratio 36.2 RATIO (10-20); Calcium,Total 9.6 mg/dL (8.5-10.1); Chloride 107 mmol/L (98-107); Creatinine, Serum 2.18 mg/dL (0.55-1.02); EST Glomerular Filtration Rate 23 mL/min (>60); Est Glom Filt Rate - Afr Amer 28 mL/min (>60); Estimated Creatinine Clearance 29.45 ml/min; Glucose 133 mg/dL (74-106); Potassium 5.2 mmol/L (3.5-5.1); Sodium Level 138 mmol/L (136-145)
--- NOTE | 2021-09-02 08:25 | WOUNDNOTE ---
Pt was assisted to the [facility]. patient had already been incontinent of BM. patient had another small stool on BSC. Pt still moving extremely slow. legs are very edematous and tight. patient with a small bloody nose. was able to blow out a few small clots. appears to have stopped. assisted patient to chair. legs elevated. call light in reach. wound VAC dressing intact with good seal noted at 75mmHg low continuous suction to the left hip. will change or remove tomorrow depending on the amount of drainage. pt denies further needs at this time.
[2021-09-02] MEDS: APIXABAN 2.5 MG TABLET PO ×2 (09:04→22:18)
[2021-09-02] MEDS: Furosemide 40 MG Tablet PO (09:05)
[2021-09-02] MEDS: Pantoprazole Sodium 40 MG Tablet PO ×2 (09:05→22:19)
[2021-09-02] MEDS: Cholecalciferol (VIT D3) 25 MCG TABLET (1,000 UNITS) PO (09:06)
[2021-09-02] MEDS: Metoprolol Tartrate 25 MG Tablet PO ×2 (09:27→22:19)
[2021-09-02] MEDS: Oxymetazoline 0.05% 1 SPRAY SPRAY.BTL NASAL ×2 (09:28→22:17)
[2021-09-02] MEDS: Gabapentin 300 MG Capsule PO (09:28)
[2021-09-02] MEDS: Clopidogrel Bisulfate 75 MG Tablet PO (09:29)
--- NOTE | 2021-09-02 10:42 | PN.HOSP_ITS ---
Documented by User: Claudette Mai MATTRESS RENOVATOR, MATTRESS RENOVATOR-C 09/02/21 10:49 Subjective Subjective Patient seen and examined. Daughter at bedside. Reports improvement in upper extremity and lower extremity swelling. Denies significant shortness of breath. Overall feeling improved. Awaiting bed at [facility]. Objective Data Objective Data Vital Signs: Vital Signs Temp Pulse Resp BP Pulse Ox O2 Del Method O2 Flow Rate 97.5 F L 123 H 16 151/83 H 98 Nasal Cannula 2 09/02/21 09:10 09/02/21 09:27 09/02/21 09:10 09/02/21 09:10 09/02/21 09:10 09/02/21 09:10 09/02/21 09:10 Oxygen Flow Rate (L/min) 2 Oxygen Delivery Method Nasal Cannula Weight: 214 lb 1.102 oz Body Mass Index (BMI) 35.4 Intake & Output: Intake and Output for Last 24 Hours 08/31/21 09/01/21 09/02/21 23:59 23:59 23:59 Intake Total 1880 / 1880 603 / 756 483 / 483 Output Total 2550 / 2550 1950 / 2200 650 / 650 Balance -670 / -670 -1347 / -1444 -167 / -167 Lab / Micro Data Result Diagrams: 09/02/21 05:50 09/02/21 05:50 Labs: Laboratory Results - last 24 hr 09/02/21 05:50: WBC 11.0, RBC 3.31 L, Hgb 9.7 L, Hct 31.5 L, MCV 95.2, MCH 29.3, MCHC 30.8 L, RDW Std Deviation 69.1 H, RDW Coeff of Leatha 21.4 H, Plt Count 309, MPV 10.2, Immature Gran % (Auto) 2.100 H, Neut % (Auto) 73.3 H, Lymph % (Auto) 10.6 L, [place] % (Auto) 10.6 H, Eos % (Auto) 2.5, Baso % (Auto) 0.9, Absolute Neuts (auto) 8.1 H, Absolute Lymphs (auto) 1.17, Nucleated RBC % 0.5, Differential Comment SCANNED, Polychromasia RARE, Anisocytosis 1+, Microcytosis 1+ 09/02/21 05:50: Sodium 138, Potassium 5.2 H, Chloride 107, Carbon Dioxide 21.0, Anion Gap 10, BUN 79 H, Creatinine 2.18 H, Estim Creat Clear Calc 29.45, Est GFR (MDRD) Af Amer 28 L, Est GFR (MDRD) Non-Af 23 L, BUN/Creatinine Ratio 36.2 H, Glucose 133 H, Calcium 9.6 Micro: Microbiology 08/20/21 20:56 Tissue - Hip Gram Stain - Final 08/20/21 20:56 Tissue - Hip Wound Culture - Final 08/20/21 20:56 Tissue - Hip Anaerobic Culture - Final No growth in 5 days. 08/20/21 20:56 Tissue - Hip Gram Stain - Final 08/20/21 20:56 Tissue - Hip Wound Culture - Final No growth aerobically. 08/20/21 20:56 Tissue - Hip Anaerobic Culture - Final No growth in 5 days. 08/20/21 20:56 Tissue - Hip Gram Stain - Final 08/20/21 20:56 Tissue - Hip Wound Culture - Final No growth aerobically. 08/20/21 20:56 Tissue - Hip Anaerobic Culture - Final No growth in 5 days. 08/20/21 20:56 Tissue - Hip Gram Stain - Final 08/20/21 20:56 Tissue - Hip Wound Culture - Final No growth aerobically. 08/20/21 20:56 Tissue - Hip Anaerobic Culture - Final No growth in 5 days. 08/20/21 20:56 Tissue - Hip Gram Stain - Final 08/20/21 20:56 Tissue - Hip Wound Culture - Final Proteus mirabilis 08/20/21 20:56 Tissue - Hip Anaerobic Culture - Final Bacteroides fragilis group 08/23/21 06:25 Urine, Catheterized Urine Culture - Final Culture exhibits no growth. 08/18/21 16:47 Blood Culture (Wb) - Anticubital Left Blood Culture - Final No growth in 5 days. 08/18/21 16:52 Blood Culture (Wb) - Anticubital Right Blood Culture - Final No growth in 5 days. 08/23/21 09:52 Stool Stool Occult Blood (ALYCE) - Final Occult Blood Positive Physical Exam Const alert and oriented x3 Orientation / Consciousness: awake, oriented to person, oriented to place and oriented to time HEENT normocephalic and moist oral mucous membranes Eyes PERRL, EOMs intact bilaterally and conjunctivae normal Neck no lymphadenopathy Resp clear to auscultation bilaterally Auscultation: diminished lung sounds Cardio regular rate, regular rhythm and no murmurs Peripheral Pulses: pulses 2+ throughout GI normal to inspection, nondistended, normoactive bowel sounds, non-tender and non-distended Extremity normal to inspection General Extremity: edema bilateral (improved) upper extremity and lower e xtremity Skin no rashes or lesions noted Lesions: no lesions Rashes: no rashes Trauma: no lacerations or abrasions Neuro CN's II-XII intact bilaterally, no focal motor deficits, no sensory deficits noted and deep tendon reflexes 2+ bilaterally Psych mental status grossly normal and affect normal Assessment & Plan Assessment/Plan (1) Left hip prosthetic joint infection: PLAN: Plan 1.? Infected left hip seroma/prosthetic joint infection-ID and orthopedic medici ne following.? Underwent irrigation and debridement of left hip infected seroma 08/20/2021.? IV Rocephin changed to IV meropenem due to rash.? Rash resolved.? Plan for ertapenem at discharge, patient will need first dose prior to DC.? PICC line in place. Give first dose of ertapenem this morning. Awaiting bed at TCU. 2. Acute kidney injury on chronic kidney disease stage IIIb-nephrology consulted . Renal ultrasound unremarkable.? Creatinine trending down.? Trend BMP. 3. CAD-on Plavix, metoprolol.? Allergy to statin. 4. Hypertension-stable, continue current regimen. 5. Hypothyroidism-continue Synthroid regimen. 6. Acute blood loss anemia secondary to upper GI bleed-underwent EGD 08/24/2021 which demonstrated bleeding esophageal ulcer, small hiatal hernia, gastritis, esophageal ring which was not dilated due to patient being on anticoagulation.? Continue PPI.? CBC stable. 7.? Mild acute heart failure with reduced ejection fraction-no hypoxia.? Echocardiogram 06/22/2021 with EF 40%.? Initiated on Lasix 20 mg in a.m. and 40 mg p.m.? Further adjustment in diuretics per nephrology. DVT prophylaxis-Hamzah This patient was seen by VANE Ames under the supervision of Dr. Francis oliva. Discharge planning: Plan on SNF pending available bed at TCU with ongoing IV antibiotics with stop date 10/01/2021.? Continue gentle diuresis. Time spent examining patient, reviewing data and subsequent management of care: 12 minutes Documented by User: Dr. Valeri Mcrae MD 09/02/21 15:38 Objective Data Lab / Micro Data Result Diagrams: 09/02/21 05:50 09/02/21 05:50 Assessment & Plan Assessment/Plan (1) Left hip prosthetic joint infection: Charges/Coding Addendum Addendum: Patient seen by Claudette CIFUENTES under my supervision. Patient seen and examined. Daughter was by her bedside today. Patient says she had had a rough night but otherwise felt well this morning. She had been able to eat a bit more and she felt she had more energy. Review of systems otherwise negative. O/E: Const alert and oriented x3 Orientation / Consciousness: awake, oriented to person, oriented to place and oriented to time HEENT normocephalic and moist oral mucous membranes Eyes PERRL, EOMs intact bilaterally and conjunctivae normal Neck no lymphadenopathy Resp clear to auscultation bilaterally Auscultation: diminished lung sounds Cardio regular rate, regular rhythm and no murmurs Peripheral Pulses: pulses 2+ throughout GI normal to inspection, nondistended, normoactive bowel sounds, non-tender and non-distended Extremity normal to inspection General Extremity: edema bilateral (improved) upper extremity and lower extremity Skin no rashes or lesions noted Lesions: no lesions Rashes: no rashes Trauma: no lacerations or abrasions Neuro CN's II-XII intact bilaterally, no focal motor deficits, no sensory deficits noted and deep tendon reflexes 2+ bilaterally Psych mental status grossly normal and affect normal Assessment and plan #Infected left hip prosthetic joint * S/p irrigation and debridement on 08/20/2021.? Currently on IV meropenem. * ID and orthopedics on board. * Plan is for patient to be discharged on IV ertapenem.? PICC line ordered. Stop date is 10/01/2021 #EL on CKD stage IIIb: * ?Nephrology on board.? Renal ultrasound was unremarkable.? Creatinine trending downwards. * Daughter counseled that nephrology has no plans of initiating dialysis at the moment. #CAD: On Plavix and metoprolol. #hypertension: On metoprolol #hypothyroidism: On Synthroid Acute blood loss anemia due to bleeding peptic ulcer * Resolved.? Had an EGD on 08/24/2021 which showed bleeding esophageal ulcer and small hiatal hernia as well as gastritis and also showed an esophageal ring which was not dilated.? On IV PPI. * #Heart failure with reduced action fraction: * Has known EF of 20%.? 2D echo done showed EF of 40%. * ?Being gently diuresed.? * Nephrology on board to help with adjusting diuretic dose. #DVT prophylaxis: currently on Eliquis Disposition: awaiting placement in TCU. Total time spent on care of the patient today: 14 minutes with Claudette Mai spending 12 minutes making a total of 26 minutes. Visit Charges Inpatient E&M: [id number] [facility] L2
--- NOTE | 2021-09-02 11:00 | TREXTCAR_ITS ---
Diet Diet Order/Speech Therapy: 08/24/21 15:47 Diet: Regular - General Is pt able to select menu?: Yes Diet Comments: 8 oz bottle of ensure chocolate ensure tid - give strwbry if no chocolate Routine Orders/Code Status Enema Type: Fleetz Enema Frequency: Daily PRN Suppository Type: Dulcolax 10mg Suppository Frequency: Daily PRN O2 Liters per Minute: 2 O2 Frequency: Continuous Keep PO Greater than or Equal to (%): 90 Routine Lab Work: - (Weekly CBC, CMP at SNF) Code Status: DNRCC-A (No intubation) Wound(s) left hip: Wound Type: Surgical Incision Dressing Change: KCI wound VAC Left thigh: Wound Type: Abrasion buttocks: Wound Type: Pressure Injury Suggestions for Active Care Change Position every (hours): 2 Times a day to sit in chair: 3 Therapies Weight Bearing: Weight bearing as tolerated Physical Therapy: Eval and Treat Occupational Therapy: Eval and Treat Problem/Diagnosis (1) Left hip prosthetic joint infection: Status: Acute Code(s): T84.52XA - Infection and inflammatory reaction due to internal left hip prosthesis, initial encounter Allergies/Procedures Done in Hospital Allergies ceftriaxone [From Rocephin] Allergy (Intermediate, Verified 08/26/21 14:44) Rash after 2nd iv dose 08/25 atorvastatin [From Lipitor] Adverse Reaction (Verified 08/18/21 15:02) Pain in joints niacin Adverse Reaction (Verified 08/18/21 15:02) Pain in joints pregabalin [From Lyrica] Adverse Reaction (Verified 08/18/21 15:02) leg pain simvastatin [From Zocor] Adverse Reaction (Verified 08/18/21 15:02) Pain in joints Procedures: EGD and - (irrigation and debridement of left hip infected seroma 08/20/2021) Type of Care/Length of Stay Estimated LOS: Convalescent Care Less Than 30 days Type of Care Needed: Skilled Rehab Potential: Fair Prognosis: Fair Additional Orders/Day of Discharge H&P will serve as current which was dated: 08/18/21 Day of Discharge: 09/02/21 Dietary and Speech Recommendations Dietitian Recommendations/Changes: Rec continue liberal Regular diet d/t poor po intake Continue ensure supplements at meals and medpass as ordered Discharge Plan Admission Admit Date/Time: 08/18/21 17:35 Primary Reason for Your Visit: Infected left hip seroma/prosthetic joint infect ion Attending Provider: Valeri Mcrae Primary Care Provider: Robyn Sen Consulting Providers: Landon Delacruz ; French Nettles ; Ca Coker ; Davi Brady ; Wander Mata Instructions Additional Instructions / Restrictions: Wound RN consult at TCU. Wound VAC left hip, change on Tuesday and . Pressure settings 75 mmHg with 2 dressing changes per week. Discharge Orders/Prescriptions Prescriptions: New pantoprazole 40 mg Tablet,Delayed Release (Dr/Ec) 40 mg PO BID Qty: 0 0RF furosemide 40 mg Tablet 40 mg PO DAILY Qty: 0 0RF Rx Instructions: a.m. dose furosemide 20 mg Tablet 20 mg PO DAILY@1800 Qty: 0 0RF Rx Instructions: p.m dose ertapenem 1 gram Recon Soln 0.5 g IV Q24 Qty: 0 0RF Rx Instructions: stop date 10/01/21 per ID order [place] Nasal 0.65 % Aerosol,[place] 2 spray NASAL TID PRN PRN (Reason: NASAL DRYNESS) Qty: 0 0RF metoprolol tartrate 25 mg Tablet 25 mg PO BID Qty: 0 0RF Continued levothyroxine 125 mcg tablet 125 mcg PO DAILY Qty: 30 oxycodone 5 mg tablet 5 mg PO Q4H PRN (Reason: Pain) geriatric gcahbgos-zsri-gelm Tablet 1 tab PO DAILY apixaban 5 mg tablet 2.5 mg PO BID gabapentin 300 mg capsule 300 mg PO TID ferrous sulfate 325 mg (65 mg iron) tablet 325 mg PO BID Label Comments: TAKE 1 TABLET BY MOUTH TWICE DAILY FOR 14 DAYS nitroglycerin 0.4 MG tablet 0.4 mg SL Q5M PRN (Reason: Chest Pain) Label Comments: CHEST PAIN acetaminophen 325 MG tablet 650 mg PO Q6H PRN PRN (Reason: Pain 1-10 Or Fever) 0RF sennosides-docusate sodium 1 TABLET tablet 2 tablet PO BID calcium carbonate 500 MG tablet 500 mg PO BIDCM ascorbic acid (vitamin C) 500 MG tablet 500 mg PO BID Rx Instructions: Take vitamin C with the ferrous sulfate with a meal twice a day. Taking it with a meal and with vitamin C improves the absorption of iron. cholecalciferol (vitamin D3) 25 MCG tablet 1,000 unit PO DAILY psyllium husk (aspartame) 1 PACKET powder in packet 1 packet PO DAILY clopidogrel 75 mg tablet 75 mg PO DAILY Qty: 90 3RF Discontinued omeprazole 20 mg capsule,delayed release(DR/EC) 20 mg PO DIRECTED Label Comments: Take 1 capsule by mouth daily before breakfast. 1/2 hr before meal. metolazone 2.5 mg tablet 2.5 mg PO 2XW Rx Instructions: tuesdays and saturdays metoprolol tartrate 25 mg tablet 12.5 mg PO BID furosemide 40 mg tablet See Rx Instructions PO .COMPLEX Qty: 30 11RF Rx Instructions: 80 mg in the AM/ 40 mg 4-6 hours later Referrals / Follow Up: Robyn Sen PA [Primary Care Provider] - In 1 Week Landon Delacruz MD [STAFF PHYSICIAN] - Within 2 Weeks (To follow at [facility]) French Nettles MD [STAFF PHYSICIAN] - Within 2 Weeks Ralph Park NP, CARTON FORMING MACHINE OPERATOR-C [Nurse Practitioner] - See Referral Note (As scheduled 09/25/2021) Pamela Almeida NP-C [STAFF PHYSICIAN] - In 1 Week (Nephrology to follow at TCU) Disposition Disposition (needs filled in before D/C Order can be placed): Nursing Home Facility
--- NOTE | 2021-09-02 11:07 | PN.RENAL_ITS ---
Subjective Subjective Following for EL on CKD Sitting in recliner chair. No complaints. Objective Data Objective Data Vital Signs: Vital Signs Temp Pulse Resp BP Pulse Ox O2 Del Method O2 Flow Rate 97.5 F L 123 H 16 151/83 H 98 Nasal Cannula 2 09/02/21 09:10 09/02/21 09:27 09/02/21 09:10 09/02/21 09:10 09/02/21 09:10 09/02/21 09:10 09/02/21 09:10 Oxygen Flow Rate (L/min) 2 Oxygen Delivery Method Nasal Cannula Weight: 97.1 kg Body Mass Index (BMI) 35.4 Intake & Output: Intake and Output for Last 24 Hours 08/31/21 09/01/21 09/02/21 23:59 23:59 23:59 Intake Total 1880 / 1880 603 / 756 483 / 483 Output Total 2550 / 2550 1950 / 2200 650 / 650 Balance -670 / -670 -1347 / -1444 -167 / -167 Lab / Micro Data Result Diagrams: 09/02/21 05:50 09/02/21 05:50 Labs: Laboratory Results - last 24 hr 09/02/21 05:50: WBC 11.0, RBC 3.31 L, Hgb 9.7 L, Hct 31.5 L, MCV 95.2, MCH 29.3, MCHC 30.8 L, RDW Std Deviation 69.1 H, RDW Coeff of Leatha 21.4 H, Plt Count 309, MPV 10.2, Immature Gran % (Auto) 2.100 H, Neut % (Auto) 73.3 H, Lymph % (Auto) 10.6 L, [place] % (Auto) 10.6 H, Eos % (Auto) 2.5, Baso % (Auto) 0.9, Absolute Neuts (auto) 8.1 H, Absolute Lymphs (auto) 1.17, Nucleated RBC % 0.5, Differential Comment SCANNED, Polychromasia RARE, Anisocytosis 1+, Microcytosis 1+ 09/02/21 05:50: Sodium 138, Potassium 5.2 H, Chloride 107, Carbon Dioxide 21.0, Anion Gap 10, BUN 79 H, Creatinine 2.18 H, Estim Creat Clear Calc 29.45, Est GFR (MDRD) Af Amer 28 L, Est GFR (MDRD) Non-Af 23 L, BUN/Creatinine Ratio 36.2 H, Glucose 133 H, Calcium 9.6 Micro: Microbiology 08/20/21 20:56 Tissue - Hip Gram Stain - Final 08/20/21 20:56 Tissue - Hip Wound Culture - Final 08/20/21 20:56 Tissue - Hip Anaerobic Culture - Final No growth in 5 days. 08/20/21 20:56 Tissue - Hip Gram Stain - Final 08/20/21 20:56 Tissue - Hip Wound Culture - Final No growth aerobically. 08/20/21 20:56 Tissue - Hip Anaerobic Culture - Final No growth in 5 days. 08/20/21 20:56 Tissue - Hip Gram Stain - Final 08/20/21 20:56 Tissue - Hip Wound Culture - Final No growth aerobically. 08/20/21 20:56 Tissue - Hip Anaerobic Culture - Final No growth in 5 days. 08/20/21 20:56 Tissue - Hip Gram Stain - Final 08/20/21 20:56 Tissue - Hip Wound Culture - Final No growth aerobically. 08/20/21 20:56 Tissue - Hip Anaerobic Culture - Final No growth in 5 days. 08/20/21 20:56 Tissue - Hip Gram Stain - Final 08/20/21 20:56 Tissue - Hip Wound Culture - Final Proteus mirabilis 08/20/21 20:56 Tissue - Hip Anaerobic Culture - Final Bacteroides fragilis group 08/23/21 06:25 Urine, Catheterized Urine Culture - Final Culture exhibits no growth. 08/18/21 16:47 Blood Culture (Wb) - Anticubital Left Blood Culture - Final No growth in 5 days. 08/18/21 16:52 Blood Culture (Wb) - Anticubital Right Blood Culture - Final No growth in 5 days. 08/23/21 09:52 Stool Stool Occult Blood (ALYCE) - Final Occult Blood Positive Physical Exam Narrative Const: Alert and oriented. No apparent distress HEENT: Normocephalic, oral mucosa and lips moist Cardio: S1, S2, RRR Respiratory: Lung sounds clear anteriorly. No rales, wheezing or rhonchi noted Extremities: pitting edema to bilateral lower legs, improving. Edema noted bilateral arms, improved. Edema in left hip. Wound vac in place to left hip Indwelling [place] with straw-colored urine in bag Assessment & Plan Assessment/Plan (1) Acute kidney injury superimposed on CKD: (2) Left hip prosthetic joint infection: (3) Anemia: (4) HFrEF (heart failure with reduced ejection fraction): PLAN: Plan - Nonoliguric EL on CKD; EL secondary to prolonged effective blood volume depletion likely has progressed now to ATN. Creatinine 1.7 mg/dL on admission, creatinine peaked at 4.00 mg/dL on 08/27 and continues to have improvement in renal function, creatinine is 2.18mg/dL. Renal US did not show any hydronephrosis. UA negative for blood, protein 15. Patient is non-oliguric, no significant uremic symptoms. Urine output has picked up. Potassium and bicarb acceptable. 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 Recommend strict I&O. Recommend avoiding nephrotoxic agents. -CXR reviewed: mild degree of CHF, we decreased IVF rate on 08/27, and stopped IV fluids altogether on 08/28. Patient is on O2 2 L nasal cannula and at times on room air. Encouraged patient to be sitting up in chair during the day. Bps slightly low and there are holding parameters on lopressor -Patient has poor solute and fluid intake, encouraged patient to increase solute and fluid intake. Continue Ensure as ordered. - History for heart failure with reduced EF,?estimated ejection fraction of 40 to 45%.? She had been on furosemide 20 mg IV twice daily since admission but this was stopped Tuesday due to rising Creatinine. Off IVF as of 08/28. Restarted back on Lasix 20 mg p.o. twice daily 08/29. 09/01 increased lasix to 40mg and pm dose 20mg daily; will continue this regimen for now. Though patient has edema, this may also be third spacing. Her albumin is 2.0. Patient has very poor oral intake but is now improving. Encourage patient to maintain adequate fluid intake especially while on diuretic; her output now may be more than input. While in hospital will need to adjust diuretics on day-to-day basis based on oral intake, diarrhea and edema. Gave extra 20 mg Lasix on 08/30. Asked pat ient to elevate arms up on pillows when laying in bed. - left hip infection and had been receiving vancomycin.? Her Vanco trough and random Vanco levels were slightly elevated. Off Vanco and currently on ertapenem for antibiotic coverage - metabolic acidosis likely from EL and diarrhea. Will follow bicarb trends. Bicarb stable. Had multiple episodes of loose bowel movements over the weekend - Patient has CKD stage III/IV with risk factors including hypertension, coronary artery disease and heart failure.? Suspect chronic fluctuating creatinine levels from cardiorenal syndrome physiology.? Baseline serum creatinine ranging around 1.7 to 2 mg/dL. - Patient did have a stool positive for occult blood, seen by GI.? Hemoglobin was 11.4 on admission and is trending up.? She did have upper GI with findings of bleeding esophageal ulcer which was treated with heater probe and biopsied, also has small hiatal hernia and gastritis which was biopsied.? Patient is on PPI. -We will continue monitor renal function. Labs ordered for tomorrow. -Discharge planning in process. Discussed with discharge planning team. Once discharged to home will arrange hospital follow up.
[2021-09-02] MEDS: Menthol/Lanolin/Calamine/Znox 113 GM Tube 1 APPLIC TOPICAL ×2 (12:44→22:18)
[2021-09-02] MEDS: Ferrous Sulfate 325 MG Tablet PO ×2 (12:44→18:00)
[2021-09-02] MEDS: Multivitamins,Ther W-Minerals Tablet 1 TABLET PO (12:44)
[2021-09-02] MEDS: Ascorbic Acid 500 MG Tablet PO ×2 (12:46→18:00)
[2021-09-02] MEDS: Calcium (Elemental) 500 MG Tablet PO ×2 (12:46→18:00)
--- NOTE | 2021-09-02 14:18 | PN.ORTHO_ITS ---
Subjective Subjective Patient kidney function labs continue to improve. On exam today she is resting in bed. I did attempt to arouse her however she did not wake up. She is breathing and resting comfortably. Objective Data Objective Data Vital Signs: Vital Signs Temp Pulse Resp BP Pulse Ox O2 Del Method O2 Flow Rate 97.5 F L 123 H 16 151/83 H 98 Nasal Cannula 2 09/02/21 09:10 09/02/21 09:27 09/02/21 09:10 09/02/21 09:10 09/02/21 09:10 09/02/21 10:00 09/02/21 10:00 Oxygen Flow Rate (L/min) 2 Oxygen Delivery Method Nasal Cannula Weight: 214 lb 1.102 oz Body Mass Index (BMI) 35.4 Intake & Output: Intake and Output for Last 24 Hours 08/31/21 09/01/21 09/02/21 23:59 23:59 23:59 Intake Total 1880 / 1880 603 / 756 543 / 543 Output Total 2550 / 2550 1950 / 2200 650 / 650 Balance -670 / -670 -1347 / -1444 -107 / -107 Lab / Micro Data Attestation: I reviewed the patient's lab results. Result Diagrams: 09/02/21 05:50 09/02/21 05:50 Labs: Laboratory Results - last 24 hr 09/02/21 05:50: WBC 11.0, RBC 3.31 L, Hgb 9.7 L, Hct 31.5 L, MCV 95.2, MCH 29.3, MCHC 30.8 L, RDW Std Deviation 69.1 H, RDW Coeff of [place]atha 21.4 H, Plt Count 309, MPV 10.2, Immature Gran % (Auto) 2.100 H, Neut % (Auto) 73.3 H, Lymph % (Auto) 10.6 L, [place] % (Auto) 10.6 H, Eos % (Auto) 2.5, Baso % (Auto) 0.9, Absolute Neuts (auto) 8.1 H, Absolute Lymphs (auto) 1.17, Nucleated RBC % 0.5, Differential Comment SCANNED, Polychromasia RARE, Anisocytosis 1+, Microcytosis 1+ 09/02/21 05:50: Sodium 138, Potassium 5.2 H, Chloride 107, Carbon Dioxide 21.0, Anion Gap 10, BUN 79 H, Creatinine 2.18 H, Estim Creat Clear Calc 29.45, Est GFR (MDRD) Af Amer 28 L, Est GFR (MDRD) Non-Af 23 L, BUN/Creatinine Ratio 36.2 H, Glucose 133 H, Calcium 9.6 Micro: Microbiology 08/20/21 20:56 Tissue - Hip Gram Stain - Final 08/20/21 20:56 Tissue - Hip Wound Culture - Final 08/20/21 20:56 Tissue - Hip Anaerobic Culture - Final No growth in 5 days. 08/20/21 20:56 Tissue - Hip Gram Stain - Final 08/20/21 20:56 Tissue - Hip Wound Culture - Final No growth aerobically. 08/20/21 20:56 Tissue - Hip Anaerobic Culture - Final No growth in 5 days. 08/20/21 20:56 Tissue - Hip Gram Stain - Final 08/20/21 20:56 Tissue - Hip Wound Culture - Final No growth aerobically. 08/20/21 20:56 Tissue - Hip Anaerobic Culture - Final No growth in 5 days. 08/20/21 20:56 Tissue - Hip Gram Stain - Final 08/20/21 20:56 Tissue - Hip Wound Culture - Final No growth aerobically. 08/20/21 20:56 Tissue - Hip Anaerobic Culture - Final No growth in 5 days. 08/20/21 20:56 Tissue - Hip Gram Stain - Final 08/20/21 20:56 Tissue - Hip Wound Culture - Final Proteus mirabilis 08/20/21 20:56 Tissue - Hip Anaerobic Culture - Final Bacteroides fragilis group 08/23/21 06:25 Urine, Catheterized Urine Culture - Final Culture exhibits no growth. 08/18/21 16:47 Blood Culture (Wb) - Anticubital Left Blood Culture - Final No growth in 5 days. 08/18/21 16:52 Blood Culture (Wb) - Anticubital Right Blood Culture - Final No growth in 5 days. 08/23/21 09:52 Stool Stool Occult Blood (ALYCE) - Final Occult Blood Positive Assessment & Plan Assessment/Plan (1) History of revision of total replacement of left hip joint: PLAN: Plan Patient still has some serous drainage from the incision. He wound VAC was changed 2 days ago there is very minimal drainage in the canister. Pictures from the wound care nurse were examined showing no surrounding erythema. Skin edges are well approximated. Drainage likely related to third spacing. We will continue with wound VAC on discharge and wound care nurse can follow her. Please contact me with any questions or concerns. Thank you for the medical care of this patient. SAÚL CummingsFloy[facility] Office:
[2021-09-02] MEDS: Furosemide 20 MG Tablet PO (18:00)
[2021-09-02] MEDS: Senna/Docusate Sodium 1 Tablet 2 TABLET PO (22:19)
[2021-09-03 02:45] VITALS: BP 121/76; PULSE 98; RESP 16; TEMP 36.9; O2SAT 96
[2021-09-03] MEDS: Levothyroxine 125 MCG Tablet PO (05:17)
[2021-09-03 06:34] LABS: Absolute Lymphocyte Count 1.01 X10^3/uL (0.83-4.51); Absolute Neutrophil Count 6.2 X10^3/uL (2.0-7.7); Basophil# 0.13 X10^3/uL; Basophil% 1.4 % (0-1); Eosinophil# 0.48 X10^3/uL; Eosinophils% 5.3 % (0-5); Hematocrit 30.8 % (37-47); Hemoglobin 9.5 g/dL (12.0-15.0); Lymphocyte # 1.01 X10^3/ul (0.83-4.51); Lymphocyte % 11.2 % (19-41); Mean Corp Hgb Conc 30.8 g/dL (32-36); Mean Corpuscular Hgb 29.8 pg (27.0-32.0); Mean Corpuscular Volume 96.6 fL (81-99); Mean Platelet Vol. 10.1 fl (6.2-12.0); Monocyte# 1.02 X10^3/uL; Monocyte% 11.3 % (0-10); NRBC Flagged by Analyzer 0.3 % (0-5); Neutrophil # 6.24 X10^3/uL (2.7-7.7); Neutrophil % 69.2 % (47-70); POSITIVE MORPHOLOGY YES; Platelet Count 290 K/mm3 (150-450); RBC Distribution Width CV 21.8 % (11.6-14.6); RBC Distribution Width SD 72.9 fl (35.1-43.9); Red Blood Count 3.19 M/mm3 (4.2-5.4)
[2021-09-03 06:36] LABS: Differential Indicated SCAN CRITERIA MET
[2021-09-03 06:57] LABS: Anisocytosis 1+; Differential Comment SCANNED; Hypochromasia RARE; Macrocytosis 1+; Polychromasia RARE
[2021-09-03 07:09] LABS: Anion Gap 11 (5-15); BUN 73 mg/dL (7-18); BUN/Creat Ratio 37.1 RATIO (10-20); Calcium,Total 9.3 mg/dL (8.5-10.1); Chloride 108 mmol/L (98-107); Creatinine, Serum 1.97 mg/dL (0.55-1.02); EST Glomerular Filtration Rate 26 mL/min (>60); Est Glom Filt Rate - Afr Amer 31 mL/min (>60); Estimated Creatinine Clearance 31.55 ml/min; Glucose 104 mg/dL (74-106); Magnesium 1.9 mg/dL (1.6-2.6); Potassium 4.9 mmol/L (3.5-5.1); Sodium Level 142 mmol/L (136-145)
[2021-09-03 07:13] VITALS: O2SAT 92
--- NOTE | 2021-09-03 08:21 | WOUNDNOTE ---
wound photo: left hip
[2021-09-03 08:46] VITALS: BP 129/80; PULSE 103; RESP 18; TEMP 36.9; O2SAT 94
[2021-09-03 09:29] VITALS: PULSE 103
[2021-09-03] MEDS: Furosemide 40 MG Tablet PO (09:29)
[2021-09-03] MEDS: Metoprolol Tartrate 25 MG Tablet PO (09:29)
[2021-09-03] MEDS: APIXABAN 2.5 MG TABLET PO (09:29)
[2021-09-03] MEDS: Cholecalciferol (VIT D3) 25 MCG TABLET (1,000 UNITS) PO (09:30)
[2021-09-03] MEDS: Pantoprazole Sodium 40 MG Tablet PO (09:30)
[2021-09-03] MEDS: Clopidogrel Bisulfate 75 MG Tablet PO (09:31)
[2021-09-03] MEDS: Oxymetazoline 0.05% 1 SPRAY SPRAY.BTL NASAL (09:31)
--- NOTE | 2021-09-03 09:32 | CASEMGMT ---
Social Work SHAR spoke with Christy in TCU and a bed is available today. Phone call to [facility] at [employer] and updated that pt is ready for discharge today. Precert has been given effective 09/03/21 thru 09/06/21. AUTH #[id number]. Physician notified and pt is ready for discharge today. Orders faxed to TCU. SHAR met with pt and dgt and informed that TCU can accept, insurance has authorized and physician plans to discharge. Pt and dgt agreeable. Plan: TCU, skilled level of care [facility]
[2021-09-03] MEDS: Gabapentin 300 MG Capsule PO (09:36)
--- NOTE | 2021-09-03 09:44 | PCM.PN.REN ---
Subjective Subjective Following for EL on CKD Patient sitting up in bed, finishing breakfast. Daughter at bedside. No overnight events. Objective Data Objective Data Vital Signs: Vital Signs Temp Pulse Resp BP Pulse Ox O2 Del Method O2 Flow Rate 98.5 F 103 H 18 129/80 H 94 Nasal Cannula 2 09/03/21 08:46 09/03/21 09:29 09/03/21 08:46 09/03/21 08:46 09/03/21 08:46 09/03/21 08:46 09/03/21 08:46 FiO2 95 09/02/21 20:52 Oxygen Flow Rate (L/min) 2 Oxygen Delivery Method Nasal Cannula Weight: 94 kg Body Mass Index (BMI) 35.4 Intake & Output: Intake and Output for Last 24 Hours 09/01/21 09/02/21 09/03/21 23:59 23:59 23:59 Intake Total 603 / 756 932 / 932 150 / 150 Output Total 1950 / 2200 650 / 650 1200 / 1200 Balance -1347 / -1444 282 / 282 -1050 / -1050 Lab / Micro Data Result Diagrams: 09/03/21 05:50 09/03/21 05:50 Labs: Laboratory Results - last 24 hr 09/03/21 05:50: WBC 9.0, RBC 3.19 L, Hgb 9.5 L, Hct 30.8 L, MCV 96.6, MCH 29.8, MCHC 30.8 L, RDW Std Deviation 72.9 H, RDW Coeff of Leatha 21.8 H, Plt Count 290, MPV 10.1, Immature Gran % (Auto) 1.600 H, Neut % (Auto) 69.2, Lymph % (Auto) 11.2 L, Sweet [place] % (Auto) 11.3 H, Eos % (Auto) 5.3 H, Baso % (Auto) 1.4 H, Absolute Neuts (auto) 6.2, Absolute Lymphs (auto) 1.01, Nucleated RBC % 0.3, Differential Comment SCANNED, Polychromasia RARE, Hypochromasia RARE, Anisocytosis 1+, Macrocytosis 1+ 09/03/21 05:50: Sodium 142, Potassium 4.9, Chloride 108 H, Carbon Dioxide 23.0, Anion Gap 11, BUN 73 H, Creatinine 1.97 H, Estim Creat Clear Calc 31.55, Est GFR (MDRD) Af Amer 31 L, Est GFR (MDRD) Non-Af 26 L, BUN/Creatinine Ratio 37.1 H, Glucose 104, Calcium 9.3, Magnesium 1.9 Micro: Microbiology 08/20/21 20:56 Tissue - Hip Gram Stain - Final 08/20/21 20:56 Tissue - Hip Wound Culture - Final 08/20/21 20:56 Tissue - Hip Anaerobic Culture - Final No growth in 5 days. 08/20/21 20:56 Tissue - Hip Gram Stain - Final 08/20/21 20:56 Tissue - Hip Wound Culture - Final No growth aerobically. 08/20/21 20:56 Tissue - Hip Anaerobic Culture - Final No growth in 5 days. 08/20/21 20:56 Tissue - Hip Gram Stain - Final 08/20/21 20:56 Tissue - Hip Wound Culture - Final No growth aerobically. 08/20/21 20:56 Tissue - Hip Anaerobic Culture - Final No growth in 5 days. 08/20/21 20:56 Tissue - Hip Gram Stain - Final 08/20/21 20:56 Tissue - Hip Wound Culture - Final No growth aerobically. 08/20/21 20:56 Tissue - Hip Anaerobic Culture - Final No growth in 5 days. 08/20/21 20:56 Tissue - Hip Gram Stain - Final 08/20/21 20:56 Tissue - Hip Wound Culture - Final Proteus mirabilis 08/20/21 20:56 Tissue - Hip Anaerobic Culture - Final Bacteroides fragilis group 08/23/21 06:25 Urine, Catheterized Urine Culture - Final Culture exhibits no growth. 08/18/21 16:47 Blood Culture (Wb) - Anticubital Left Blood Culture - Final No growth in 5 days. 08/18/21 16:52 Blood Culture (Wb) - Anticubital Right Blood Culture - Final No growth in 5 days. 08/23/21 09:52 Stool Stool Occult Blood (ALYCE) - Final Occult Blood Positive Physical Exam Narrative Const: Alert and oriented. No apparent distress HEENT: Normocephalic, oral mucosa and lips moist Cardio: S1, S2, RRR Respiratory: Lung sounds clear anteriorly. No rales, wheezing or rhonchi noted Extremities: pitting edema to bilateral lower legs, improving. Edema in left hip. Wound vac in place to left hip Indwelling Hudson with clear yellow urine in bag Assessment & Plan Assessment/Plan (1) Acute kidney injury superimposed on CKD: (2) Left hip prosthetic joint infection: (3) Anemia: (4) HFrEF (heart failure with reduced ejection fraction): PLAN: Plan - Nonoliguric EL on CKD; EL secondary to prolonged effective blood volume depletion likely has progressed now to ATN. Creatinine 1.7 mg/dL on admission, creatinine peaked at 4.00 mg/dL on 08/27 and continues to have improvement in renal function daily, creatinine is 1.97mg/dL. Renal US did not show any hydronephrosis. UA negative for blood, protein 15. Patient is non-oliguric, no significant uremic symptoms. Urine output has picked up. Potassium and bicarb acceptable. At this time there is no acute indication for [employer]. Recommend strict I&O. Recommend avoiding nephrotoxic agents. -CXR reviewed: mild degree of CHF, we decreased IVF rate on 08/27, and stopped IV fluids altogether on 08/28. Patient is on O2 2 L nasal cannula and at times on room air. Encouraged patient to be sitting up in chair during the day and for all meals. Bps slightly low and there are holding parameters on lopressor -Patient has poor solute and fluid intake, encouraged patient to increase solute and fluid intake. Continue Ensure as ordered. - History for heart failure with reduced EF,?estimated ejection fraction of 40 to 45%.? She had been on furosemide 20 mg IV twice daily since admission but this was stopped Tuesday due to rising Creatinine. Off IVF as of 08/28. Restarted back on Lasix 20 mg p.o. twice daily 08/29. 09/01 increased lasix to 40mg and pm dose 20mg daily; will continue this regimen for now. Though patient has edema, this may also be third spacing. Her albumin is 2.0. Patient has very poor oral intake but is now improving. Encourage patient to maintain adequate fluid intake especially while on diuretic; her output now may be more than input. While in hospital will need to adjust diuretics on day-to-day basis based on oral intake, diarrhea and edema. Gave extra 20 mg Lasix on 08/30. Asked patient to elevate arms up on pillows when laying in bed. - left hip infection and had been receiving vancomycin.? Her Vanco trough and random Vanco levels were slightly elevated. Off Vanco and currently on ertapenem for antibiotic coverage - metabolic acidosis likely from EL and diarrhea. Will follow bicarb trends. Bicarb level stable. Had multiple episodes of loose bowel movements over the weekend - Patient has CKD stage III/IV with risk factors including hypertension, coronary artery disease and heart failure.? Suspect chronic fluctuating creatinine levels from cardiorenal syndrome physiology.? Baseline serum creatinine ranging around 1.7 to 2 mg/dL. - Patient did have a stool positive for occult blood, seen by GI.? Hemoglobin was 11.4 on admission and is trending up.? She did have upper GI with findings of bleeding esophageal ulcer which was treated with heater probe and biopsied, also has small hiatal hernia and gastritis which was biopsied.? Patient is on PPI. -We will continue monitor renal function. Labs ordered for tomorrow. -Discharge planning in process, possibly to TCU today. Discussed with discharge planning team. Once discharged to home will arrange hospital follow up.
[2021-09-03 09:45] VITALS: BP 140/64; PULSE 118
--- NOTE | 2021-09-03 10:26 | DS.PCM_ITS ---
Documented by User: VANE Gant 09/03/21 10:37 Providers Date of Admission: 08/18/21 Date of Discharge: 09/03/21 Primary Care Physician: SAJAN Gamble Consultations 08/18/21 20:40 Consult: Infectious Disease Routine Consulting Provider: Landon Delacruz Reason for Consult: Left infected hip joint EMERGENT Consult: No MD Notified: Yes Date Notified: 08/19/21 Time Notified: 06:59 Method of Notification: Answering Service Consult: Onc/Wound/matching machine operator Routine Comment: Reason for Consult:: Left hip joint infection Consult: Orthopedics Routine Consulting Provider: French Nettles Reason for Consult: Infected hip joint EMERGENT Consult: No MD Notified: Yes Date Notified: 08/18/21 Time Notified: 17:40 Method of Notification: Verbal Method of Consult:: In-Person Comments:: sent from dr office 08/1808/23/21 11:05 Consult: Gastroenterology Routine Consulting Provider: [facility] Reason for Consult: GI bleed EMERGENT Consult: No MD Notified: Yes Date Notified: 08/23/21 Time Notified: 13:00 Method of Notification: Text 08/24/21 20:51 Consult: Nephrology Routine Consulting Provider: Davi Brady Reason for Consult: renal failure EMERGENT Consult: No MD Notified: Yes Date Notified: 08/24/21 Time Notified: 20:52 Method of Notification: Verbal Reason For Visit: INFECTED HIP JOINT Diagnosis Discharge Diagnosis (1) Acute kidney injury superimposed on CKD: Status: Acute Code(s): N17.9 - Acute kidney failure, unspecified; N18.9 - Chronic kidney disease, unspecified (2) Left hip prosthetic joint infection: Status: Acute Code(s): T84.52XA - Infection and inflammatory reaction due to internal left hip prosthesis, initial encounter (3) Anemia: Status: Acute Code(s): D64.9 - Anemia, unspecified (4) HFrEF (heart failure with reduced ejection fraction): Status: Acute Code(s): I50.20 - Unspecified systolic (congestive) heart failure Medications at Discharge Home Medications nitroglycerin 0.4 mg sublingual tablet 0.4 mg sublingual Q5M PRN Chest Pain 02/24/16 levothyroxine 125 mcg tablet 125 mcg PO DAILY thyroid #30 tabs 11/14/18 acetaminophen 325 mg tablet 650 mg PO Q6H PRN PRN Pain 1-10 Or Fever 05/13/20 apixaban 5 mg tablet 2.5 mg PO BID blood thinner 08/21/20 geriatric [id number]-uets-pmfc 1 tab PO DAILY supplement 08/21/20 oxycodone 5 mg tablet 5 mg PO Q4H PRN Pain 08/21/20 gabapentin 300 mg capsule 300 mg PO TID nerve pain 05/25/21 ferrous sulfate 325 mg (65 mg iron) tablet 325 mg PO BID supplement 05/26/21 ascorbic acid (vitamin C) 500 mg tablet 500 mg PO BID supplement 08/18/21 calcium carbonate 500 mg calcium (1,250 mg) tablet 500 mg PO BIDCM supplement 08/18/21 cholecalciferol (vitamin D3) 25 mcg (1,000 unit) tablet 1,000 unit PO DAILY supplement 08/18/21 psyllium husk (aspartame) 3.4 gram oral powder packet 1 packet PO DAILY constipation 08/18/21 sennosides 8.6 mg-docusate sodium 50 mg tablet 2 tablet PO BID stool softener 08/18/21 clopidogrel 75 mg tablet 75 mg PO DAILY blood thinner #90 tabs 08/31/21 ertapenem 1 gram solution for injection 0.5 g IV Q24 #0 ea 09/02/21 furosemide 20 mg tablet 20 mg PO DAILY@1800 #0 tabs 09/02/21 furosemide 40 mg tablet 40 mg PO DAILY #0 tabs 09/02/21 metoprolol tartrate 25 mg tablet 25 mg PO BID #0 tabs 09/02/21 pantoprazole 40 mg tablet,delayed release 40 mg PO BID #0 tabs 09/02/21 sodium chloride 0.65 % nasal spray aerosol (Deep Sea Nasal) 2 spray NASAL TID PRN PRN NASAL DRYNESS #0 mL 09/02/21 Hospital Course Operations - (I&D of Left hip infected seroma) Procedures None Summary of Care Provided Minutes Spent on Discharge: 35 Hospital Course: Patient is an 86-year-old female who presented with left hip wound and seepage. Patient had a left hip arthroplasty in [place] [address] Nettles. Patient was seen at Dr. Nettles's office and his PA sent her to the ER with concerns. Patient received x-rays and blood work. Patient underwent I&D of left hip on 08/20/[address] Nettles in which specimens were collected and sent to lab for cultures and a wound VAC was placed. Wound VAC will be continued on TCU with follow-up from wound nurse. Patient has underwent 2 weeks of antibiotics initially on vancomycin and Zosyn however this was later changed to meropenem and subsequently ertapenem. On 08/23/2021 patient was noted to have a drop in hemoglobin and Dr. Altman was consulted since patient had a positive occult s tool. Patient underwent EGD on 08/24/2021 and was found to have a bleeding esophageal ulcer which was treated with a heater probe and biopsied. Patient was initiated on PPI. Patient will need 6 weeks of IV antibiotics and will be transferred to TCU for further PT and OT as well as antibiotic therapy. During hospitalization patient developed acute on chronic kidney disease and was subsequently evaluated by nephrology. A renal ultrasound was done which did not show any hydronephrosis. Patient's Lasix was discontinued and she received IV fluids. Patient will need to follow-up with Dr. Nettles Physical Exam Const alert, oriented x3 and no apparent distress Orientation / Consciousness: awake, oriented to person, oriented to place and oriented to time HEENT normocephalic and moist oral mucous membranes Eyes conjunctivae normal Neck no lymphadenopathy Resp clear to auscultation bilaterally Auscultation: crackles bilateral base (Fine scattered crackles) and diminished lung sounds Cardio regular rate, regular rhythm and no murmurs Peripheral Pulses: pulses 2+ throughout GI normal to inspection, nondistended, normoactive bowel sounds, non-tender and non-distended Extremity normal to inspection General Extremity: edema bilateral (improved) upper extremity and lower extremity Details: trace Skin no rashes or lesions noted Skin Narrative: Generalized erythematous rash. Appears improved from prior. Lesions: no lesions Rashes: no rashes Trauma: no lacerations or abrasions Neuro no focal motor deficits and no sensory deficits noted Psych mental status grossly normal and affect normal Weight / BMI Weight Weight: 207 lb 3.752 oz Body Mass Index (BMI) 35.4 ABG / Lab / Microbiology Data Result Diagrams: 09/03/21 05:50 09/03/21 05:50 Laboratory: Laboratory Results - last 24 hr 09/03/21 05:50: WBC 9.0, RBC 3.19 L, Hgb 9.5 L, Hct 30.8 L, MCV 96.6, MCH 29.8, MCHC 30.8 L, RDW Std Deviation 72.9 H, RDW Coeff of [place] 21.8 H, Plt Count 290, MPV 10.1, Immature Gran % (Auto) 1.600 H, Neut % (Auto) 69.2, Lymph % (Auto) 11.2 L, [place] % (Auto) 11.3 H, Eos % (Auto) 5.3 H, Baso % (Auto) 1.4 H, Absolute Neuts (auto) 6.2, Absolute Lymphs (auto) 1.01, Nucleated RBC % 0.3, Differential Comment SCANNED, Polychromasia RARE, Hypochromasia RARE, Anisocytosis 1+, Macrocytosis 1+ 09/03/21 05:50: Sodium 142, Potassium 4.9, Chloride 108 H, Carbon Dioxide 23.0, Anion Gap 11, BUN 73 H, Creatinine 1.97 H, Estim Creat Clear Calc 31.55, Est GFR (MDRD) Af Amer 31 L, Est GFR (MDRD) Non-Af 26 L, BUN/Creatinine Ratio 37.1 H, Glucose 104, Calcium 9.3, Magnesium 1.9 Microbiology: Microbiology 08/20/21 20:56 Tissue - Hip Gram Stain - Final 08/20/21 20:56 Tissue - Hip Wound Culture - Final 08/20/21 20:56 Tissue - Hip Anaerobic Culture - Final No growth in 5 days. 08/20/21 20:56 Tissue - Hip Gram Stain - Final 08/20/21 20:56 Tissue - Hip Wound Culture - Final No growth aerobically. 08/20/21 20:56 Tissue - Hip Anaerobic Culture - Final No growth in 5 days. 08/20/21 20:56 Tissue - Hip Gram Stain - Final 08/20/21 20:56 Tissue - Hip Wound Culture - Final No growth aerobically. 08/20/21 20:56 Tissue - Hip Anaerobic Culture - Final No growth in 5 days. 08/20/21 20:56 Tissue - Hip Gram Stain - Final 08/20/21 20:56 Tissue - Hip Wound Culture - Final No growth aerobically. 08/20/21 20:56 Tissue - Hip Anaerobic Culture - Final No growth in 5 days. 08/20/21 20:56 Tissue - Hip Gram Stain - Final 08/20/21 20:56 Tissue - Hip Wound Culture - Final Proteus mirabilis 08/20/21 20:56 Tissue - Hip Anaerobic Culture - Final Bacteroides fragilis group 08/23/21 06:25 Urine, Catheterized Urine Culture - Final Culture exhibits no growth. 08/18/21 16:47 Blood Culture (Wb) - Anticubital Left Blood Culture - Final No growth in 5 days. 08/18/21 16:52 Blood Culture (Wb) - Anticubital Right Blood Culture - Final No growth in 5 days. 08/23/21 09:52 Stool Stool Occult Blood (ALYCE) - Final Occult Blood Positive Meaningful Use Info Meaningful Use Diagnoses (Choose all that apply): None applicable Discharge Plan Admission Admit Date/Time: 08/18/21 17:35 Primary Reason for Your Visit: Infected left hip seroma/prosthetic joint infection Attending Provider: Valeri Mcrae Primary Care Provider: Robyn Sen Consulting Providers: Landon Delacruz ; French Nettles ; Ca Coker ; Davi Brady ; Wander Mata Instructions Additional Instructions / Restrictions: Wound RN consult at TCU. Wound VAC left hip, change on Tuesday and . Pressure settings 75 mmHg with 2 dressing changes per week. Discharge Orders/Prescriptions Prescriptions: New pantoprazole 40 mg Tablet,Delayed Release (Dr/Ec) 40 mg PO BID Qty: 0 0RF furosemide 40 mg Tablet 40 mg PO DAILY Qty: 0 0RF Rx Instructions: a.m. dose furosemide 20 mg Tablet 20 mg PO DAILY@1800 Qty: 0 0RF Rx Instructions: p.m dose ertapenem 1 gram Recon Soln 0.5 g IV Q24 Qty: 0 0RF Rx Instructions: stop date 10/01/21 per ID order Deep Sea Nasal 0.65 % Aerosol,[place] 2 spray NASAL TID PRN PRN (Reason: NASAL DRYNESS) Qty: 0 0RF metoprolol tartrate 25 mg Tablet 25 mg PO BID Qty: 0 0RF Continued levothyroxine 125 mcg tablet 125 mcg PO DAILY Qty: 30 oxycodone 5 mg tablet 5 mg PO Q4H PRN (Reason: Pain) geriatric oaawwqyq-zxsm-lhpe Tablet 1 tab PO DAILY apixaban 5 mg tablet 2.5 mg PO BID gabapentin 300 mg capsule 300 mg PO TID ferrous sulfate 325 mg (65 mg iron) tablet 325 mg PO BID Label Comments: TAKE 1 TABLET BY MOUTH TWICE DAILY FOR 14 DAYS nitroglycerin 0.4 MG tablet 0.4 mg SL Q5M PRN (Reason: Chest Pain) Label Comments: CHEST PAIN acetaminophen 325 MG tablet 650 mg PO Q6H PRN PRN (Reason: Pain 1-10 Or Fever) 0RF sennosides-docusate sodium 1 TABLET tablet 2 tablet PO BID calcium carbonate 500 MG tablet 500 mg PO BIDCM ascorbic acid (vitamin C) 500 MG tablet 500 mg PO BID Rx Instructions: Take vitamin C with the ferrous sulfate with a meal twice a day. Taking it with a meal and with vitamin C improves the absorption of iron. cholecalciferol (vitamin D3) 25 MCG tablet 1,000 unit PO DAILY psyllium husk (aspartame) 1 PACKET powder in packet 1 packet PO DAILY clopidogrel 75 mg tablet 75 mg PO DAILY Qty: 90 3RF Discontinued omeprazole 20 mg capsule,delayed release(DR/EC) 20 mg PO DIRECTED Label Comments: Take 1 capsule by mouth daily before breakfast. 1/2 hr before meal. metolazone 2.5 mg tablet 2.5 mg PO 2XW Rx Instructions: tuesdays and saturdays metoprolol tartrate 25 mg tablet 12.5 mg PO BID furosemide 40 mg tablet See Rx Instructions PO .COMPLEX Qty: 30 11RF Rx Instructions: 80 mg in the AM/ 40 mg 4-6 hours later Referrals / Follow Up: Landon Delacruz MD [STAFF PHYSICIAN] - Within 2 Weeks (To follow at [facility]) French Nettles MD [STAFF PHYSICIAN] - Within 2 Weeks Ralph Park NP, COMMERCIAL ROOFING ESTIMATOR-C [Nurse Practitioner] - See Referral Note (As scheduled 09/25/2021) Pamela Almeida NP-C [STAFF PHYSICIAN] - In 1 Week (Nephrology to follow at [facility]) Robyn Sen PA [Primary Care Provider] - In 1 Week Disposition Disposition (needs filled in before D/C Order can be placed): Assisted Facility Documented by User: Dr. Valeri Mcrae MD 09/03/21 14:36 Providers Date of Admission: 08/18/21 Reason For Visit: INFECTED HIP JOINT Diagnosis Discharge Diagnosis (1) Acute kidney injury superimposed on CKD: Status: Acute Code(s): N17.9 - Acute kidney failure, unspecified; N18.9 - Chronic kidney disease, u nspecified (2) Left hip prosthetic joint infection: Status: Acute Code(s): T84.52XA - Infection and inflammatory reaction due to internal left hip prosthesis, initial encounter (3) Anemia: Status: Acute Code(s): D64.9 - Anemia, unspecified (4) HFrEF (heart failure with reduced ejection fraction): Status: Acute Code(s): I50.20 - Unspecified systolic (congestive) heart failure Medications at Discharge Home Medications nitroglycerin 0.4 mg sublingual tablet 0.4 mg sublingual Q5M PRN Chest Pain 02/24/16 levothyroxine 125 mcg tablet 125 mcg PO DAILY thyroid #30 tabs 11/14/18 acetaminophen 325 mg tablet 650 mg PO Q6H PRN PRN Pain 1-10 Or Fever 05/13/20 apixaban 5 mg tablet 2.5 mg PO BID blood thinner 08/21/20 geriatric pileitzk-wryl-xpff 1 tab PO DAILY supplement 08/21/20 oxycodone 5 mg tablet 5 mg PO Q4H PRN Pain 08/21/20 gabapentin 300 mg capsule 300 mg PO TID nerve pain 05/25/21 ferrous sulfate 325 mg (65 mg iron) tablet 325 mg PO BID supplement 05/26/21 ascorbic acid (vitamin C) 500 mg tablet 500 mg PO BID supplement 08/18/21 calcium carbonate 500 mg calcium (1,250 mg) tablet 500 mg PO BIDCM supplement 08/18/21 cholecalciferol (vitamin D3) 25 mcg (1,000 unit) tablet 1,000 unit PO DAILY supplement 08/18/21 psyllium husk (aspartame) 3.4 gram oral powder packet 1 packet PO DAILY constipation 08/18/21 sennosides 8.6 mg-docusate sodium 50 mg tablet 2 tablet PO BID stool softener 08/18/21 clopidogrel 75 mg tablet 75 mg PO DAILY blood thinner #90 tabs 08/31/21 ertapenem 1 gram solution for injection 0.5 g IV Q24 #0 ea 09/02/21 furosemide 20 mg tablet 20 mg PO DAILY@1800 #0 tabs 09/02/21 furosemide 40 mg tablet 40 mg PO DAILY #0 tabs 09/02/21 metoprolol tartrate 25 mg tablet 25 mg PO BID #0 tabs 09/02/21 pantoprazole 40 mg tablet,delayed release 40 mg PO BID #0 tabs 09/02/21 sodium chloride 0.65 % nasal spray aerosol (Deep Sea Nasal) 2 spray NASAL TID PRN PRN NASAL DRYNESS #0 mL 09/02/21 ABG / Lab / Microbiology Data Result Diagrams: 09/03/21 05:50 09/03/21 05:50 Discharge Plan Admission Admit Date/Time: 08/18/21 17:35 Primary Reason for Your Visit: Infected left hip seroma/prosthetic joint infection Attending Provider: Valeri Mcrae Primary Care Provider: Robyn Sen Consulting Providers: Landon Delacruz ; French Nettles ; Ca Coker ; Davi Brady ; Wander Mata Instructions Additional Instructions / Restrictions: Wound RN consult at TCU. Wound VAC left hip, change on Tuesday and . Pressure settings 75 mmHg with 2 dressing changes per week. Discharge Orders/Prescriptions Prescriptions: New pantoprazole 40 mg Tablet,Delayed Release (Dr/Ec) 40 mg PO BID Qty: 0 0RF furosemide 40 mg Tablet 40 mg PO DAILY Qty: 0 0RF Rx Instructions: a.m. dose furosemide 20 mg Tablet 20 mg PO DAILY@1800 Qty: 0 0RF Rx Instructions: p.m dose ertapenem 1 gram Recon Soln 0.5 g IV Q24 Qty: 0 0RF Rx Instructions: stop date 10/01/21 per ID order Deep Sea Nasal 0.65 % Aerosol,[place] 2 spray NASAL TID PRN PRN (Reason: NASAL DRYNESS) Qty: 0 0RF metoprolol tartrate 25 mg Tablet 25 mg PO BID Qty: 0 0RF Continued levothyroxine 125 mcg tablet 125 mcg PO DAILY Qty: 30 oxycodone 5 mg tablet 5 mg PO Q4H PRN (Reason: Pain) geriatric bhoxtwts-xqdq-uzip Tablet 1 tab PO DAILY apixaban 5 mg tablet 2.5 mg PO BID gabapentin 300 mg capsule 300 mg PO TID ferrous sulfate 325 mg (65 mg iron) tablet 325 mg PO BID Label Comments: TAKE 1 TABLET BY MOUTH TWICE DAILY FOR 14 DAYS nitroglycerin 0.4 MG tablet 0.4 mg SL Q5M PRN (Reason: Chest Pain) Label Comments: CHEST PAIN acetaminophen 325 MG tablet 650 mg PO Q6H PRN PRN (Reason: Pain 1-10 Or Fever) 0RF sennosides-docusate sodium 1 TABLET tablet 2 tablet PO BID calcium carbonate 500 MG tablet 500 mg PO BIDCM ascorbic acid (vitamin C) 500 MG tablet 500 mg PO BID Rx Instructions: Take vitamin C with the ferrous sulfate with a meal twice a day. Taking it with a meal and with vitamin C improves the absorption of iron. cholecalciferol (vitamin D3) 25 MCG tablet 1,000 unit PO DAILY psyllium husk (aspartame) 1 PACKET powder in packet 1 packet PO DAILY clopidogrel 75 mg tablet 75 mg PO DAILY Qty: 90 3RF Discontinued omeprazole 20 mg capsule,delayed release(DR/EC) 20 mg PO DIRECTED Label Comments: Take 1 capsule by mouth daily before breakfast. 1/2 hr before meal. metolazone 2.5 mg tablet 2.5 mg PO 2XW Rx Instructions: tuesdays and saturdays metoprolol tartrate 25 mg tablet 12.5 mg PO BID furosemide 40 mg tablet See Rx Instructions PO .COMPLEX Qty: 30 11RF Rx Instructions: 80 mg in the AM/ 40 mg 4-6 hours later Referrals / Follow Up: Landon Delacruz MD [STAFF PHYSICIAN] - Within 2 Weeks (To follow at [facility]) French Nettles MD [STAFF PHYSICIAN] - Within 2 Weeks Ralph Park NP, COMMERCIAL ROOFING ESTIMATOR-C [Nurse Practitioner] - See Referral Note (As scheduled 09/25/2021) Pamela Almeida NP-C [STAFF PHYSICIAN] - In 1 Week (Nephrology to follow at [facility]) Robyn Sen PA [Primary Care Provider] - In 1 Week Disposition Disposition (needs filled in before D/C Order can be placed): Assisted Facility Charges/Coding Addendum Addendum: Patient seen by Gabriella CIFUENTES under my supervision Patient is an 86-year-old female with past medical history as outlined was admitted through the ED on 08/18/2021 with a complaint of left hip wound at discharge. Patient had had a left hip arthroplasty in April 2021 by orthopedic surgery. She went to her orthopedic surgery for follow-up on the day of admission and complained of the wound and increased seepage as well as pain and swelling. She was admitted to be managed for acute infection of the surgical sites of the left hip in the setting of recent hip arthroplasty. She had I&D of the left hip on 08/20/2021. Subsequently had a wound VAC placed. She initially had 2 weeks of IV antibiotics namely IV vancomycin and Zosyn. This was subsequently transitioned to IV meropenem and then ertapenem. Hospital course was complicated by drop in hemoglobin with associated positive occult stool. Gastroenterology was consulted. She had EGD on 08/24/2021 and was found to have a bleeding esophageal ulcer which was treated with heater probe and biopsy. She was started on IV PPI. Hospital course was also complicated by EL on CKD and this was managed conservatively by nephrology. Renal ultrasound was unremarkable. Her diuretics were initially discontinued and she was hydrated with fluids. Diuretics were subsequently restarted. She remained stable and was discharged to the transitional care unit on 09/03/2021 on IV ertapenem with a stop date of 10/01/2021. She is follow-up with her primary care doctor, orthoped ic surgery, nephrology and infectious diseases. Patient was seen and examined prior to discharge. Her daughter was by her bedside. She had no active complaints and had an uneventful night. Review of systems otherwise negative. Labs and vitals reviewed. Home medication reviewed and reconciled. O/E: Const alert and oriented x3 Orientation / Consciousness: awake, oriented to person, oriented to place and oriented to time HEENT normocephalic and moist oral mucous membranes Eyes PERRL, EOMs intact bilaterally and conjunctivae normal Neck no lymphadenopathy Resp clear to auscultation bilaterally Auscultation: diminished lung sounds Cardio regular rate, regular rhythm and no murmurs Peripheral Pulses: pulses 2+ throughout GI normal to inspection, nondistended, normoactive bowel sounds, non-tender and non-distended Extremity normal to inspection General Extremity: edema bilateral (improved) upper extremity and lower extremity Skin no rashes or lesions noted Lesions: no lesions Rashes: no rashes Trauma: no lacerations or abrasions Neuro CN's II-XII intact bilaterally, no focal motor deficits, no sensory deficits noted and deep tendon reflexes 2+ bilaterally Psych mental status grossly normal and affect normal Plan is for discharge to transitional care unit today. Rest as per Gabriella Delvalle COMMERCIAL ROOFING ESTIMATOR-C's note, which I have reviewed and endorsed. Total time spent on the evaluation, documentation and discharge of patient today: 55 mins Visit Charges Inpatient E&M: 23276 Disch Hosp
[2021-09-03] MEDS: Menthol/Lanolin/Calamine/Znox 113 GM Tube 1 APPLIC TOPICAL (10:55)
[2021-09-03] MEDS: 0.9 % NaCl (Sterile) Posiflush 10 mL IV (10:57)
[2021-09-03] MEDS: Calcium (Elemental) 500 MG Tablet PO (11:49)
[2021-09-03] MEDS: Ferrous Sulfate 325 MG Tablet PO (11:50)
[2021-09-03] MEDS: Ascorbic Acid 500 MG Tablet PO (11:50)
[2021-09-03] MEDS: Multivitamins,Ther W-Minerals Tablet 1 TABLET PO (11:50)
--- NOTE | 2021-09-03 13:48 | WOUNDNOTE ---
wound photo: left lateral thigh
--- NOTE | 2021-09-03 13:50 | WOUNDNOTE ---
wound photo: left medial/posterior thigh
[2021-09-03 14:40] VITALS: BP 145/78; PULSE 112; RESP 18; TEMP 36.6; O2SAT 95
[2021-09-03] MEDS: 0.9% Saline Lock 10 ML Syringe IV (14:43)
== END 2021-09-03 14:51 | disposition skilled nursing facility (03) | DRG 463 ==
LOC: ED 17:09 → MS3 18:04
PROVIDERS: Anesthesiology; Hospitalist; Internal Medicine; Internal Medicine Gastroenterology; Nurse Practitioner Adult Health; Nurse Practitioner Family; Specialist; Admitting Provider Internal Medicine; Emergency Provider Emergency Medicine; PCP Physician Assistant; Visit Provider Student in an Organized Health Care Education/Training Program
PROC: 0SRB049 Replacement of Left Hip Joint with Ceramic on Polyethylene Synthetic Substitute, Cemented, Open Approach (ICD-10-PCS; CPT 20704; principal; 2021-08-20 16:35)
PROC: 0DJ08ZZ Inspection of Upper Intestinal Tract, Via Natural or Artificial Opening Endoscopic (ICD-10-PCS; CPT 43235; principal; 2021-08-24 12:55)
DX: T84.52XA Infection and inflammatory reaction due to internal left hip prosthesis, initial encounter (principal); Y83.1 Surgical operation with implant of artificial internal device as the cause of abnormal reaction of the patient, or of later complication, without mention of misadventure at the time of the procedure; R00.0 Tachycardia, unspecified; K22.11 Ulcer of esophagus with bleeding; I50.23 Acute on chronic systolic (congestive) heart failure; K29.71 Gastritis, unspecified, with bleeding; E87.2 Acidosis; D62 Acute posthemorrhagic anemia; N17.0 Acute kidney failure with tubular necrosis; I13.0 Hypertensive heart and chronic kidney disease with heart failure and stage 1 through stage 4 chronic kidney disease, or unspecified chronic kidney disease; L76.34 Postprocedural seroma of skin and subcutaneous tissue following other procedure; L03.116 Cellulitis of left lower limb; I27.21 Secondary pulmonary arterial hypertension; T84.031A Mechanical loosening of internal left hip prosthetic joint, initial encounter; I48.0 Paroxysmal atrial fibrillation; N18.32 Chronic kidney disease, stage 3b; D63.1 Anemia in chronic kidney disease; I25.5 Ischemic cardiomyopathy; I25.10 Atherosclerotic heart disease of native coronary artery without angina pectoris; K58.9 Irritable bowel syndrome, unspecified; E78.00 Pure hypercholesterolemia, unspecified; E03.9 Hypothyroidism, unspecified; K44.9 Diaphragmatic hernia without obstruction or gangrene; L27.0 Generalized skin eruption due to drugs and medicaments taken internally; I25.2 Old myocardial infarction; T36.1X5A Adverse effect of cephalosporins and other beta-lactam antibiotics, initial encounter; E66.9 Obesity, unspecified; Z68.35 Body mass index [BMI] 35.0-35.9, adult; Z20.822 Contact with and (suspected) exposure to COVID-19; Z66 Do not resuscitate; Z79.01 Long term (current) use of anticoagulants; Z79.02 Long term (current) use of antithrombotics/antiplatelets; Z79.890 Hormone replacement therapy; Z79.899 Other long term (current) drug therapy; Z86.16 Personal history of COVID-19; Z95.5 Presence of coronary angioplasty implant and graft; Z95.3 Presence of xenogenic heart valve; Z96.653 Presence of artificial knee joint, bilateral; Z95.1 Presence of aortocoronary bypass graft; Z96.642 Presence of left artificial hip joint; Y92.239 Unspecified place in hospital as the place of occurrence of the external cause
CPT/HCPCS: 36415; 36569; 71045; 73502; 76770; 80048; 80053; 80069; 80202; 81001; 82274; 83605; 83735; 84443; 85025; 85027; 85652; 86140; 86850; 86900; 86901; 86920; 87015; 87040; 87070; 87075; 87077; 87086; 87102; 87116; 87176; 87186; 87205; 87206; 87426; 88305; 88311; 88312; 88342; 93005; 94640; 97110; 97116; 97162; 97165; 97530; 97535; 99251; 99284; C1776; J2185; J7030; J7040; J7050; P9016; A4216; G0463; J0696; J1940; J2405; J3490

== ENCOUNTER 2021-09-03 15:10 | Inpatient (IN) | payer MEDICARE, SELFPAY ==
[2021-09-03 15:40] VITALS: BP 149/80; PULSE 132; RESP 22; TEMP 36.6; O2SAT 92
--- NOTE | 2021-09-03 16:19 | HP.PCM_ITS ---
HPI - General General Date of Admission: 09/03/21 Date of Service: 09/03/21 Chief Complaint: Here for rehab, intravenous antibiotics. HPI Narrative 08/18/2021 GALILEO HUSTON, is a 86 Female who presents to [facility] Emergency Department with wound. 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 Blood cultures sent, antibiotics given. 08/18/2021 Admit to Hospital. Vancomycin, Zosyn, ID consult for infected left hip wound. Hold Eliquis, Plavix in case incision, drainage needed. 08/19/2021 Dr. Espinoza recommended continuing Vancomycin, Zosyn. pending surgical debridement left hip, intraoperative cultures. 08/20/2021 Dr. Nettles performed irrigation, debridement left hip infected seroma. 08/21/2021 Left hip seroma with sinus tract. Continue Vancomycin, Zosyn pending cultures. 08/21/2021 Pain controlled. Oral iron, PPI for hemoglobin drop from 11.4 to 9.6. Resume Lasix 20mg bid for chronic systolic congestive heart failure. 08/22/2021 Increase metoprolol 25mg bid for tachycardia. Cultures pending. 08/23/2021 Nausea, tachycardia, Hemoglobin drop, stool occult positive, consult GI. Creatinine 2.1, Vancomycin stopped. 08/24/2021 EGD showed bleeding esophageal ulcer, gastritis. 08/25/2021 Dr. Delacruz surgical cultures grew proteus, plan Ceftriaxone IV x 6 weeks stop date 10/01/2021. 08/25/2021 IV fluids for acute kidney injury. Stop diuretics. 08/25/21 IV fluids for Creatinine 3.62. 08/26/2021 Allergic rash secondary to Rocephin. Stop Rocephin, start Meropenem. Protonix for bleeding esophageal ulcer. 08/27/2021 Ongoing rash. Creatinine up to 4.00. 08/28/2021 Rash improved, shortness of breath improved. Stop IV fluids. Creatinine improved to 3.77. 08/29/2021 PICC line ordered. Meropenem IV. Creatinine improving. 08/30/2021, Fatigue, poor appetite. Lasix IV for edema. 08/31/2021, More alert, oxygen 2 liters per nasal cannula, fatigue, short of breath. EF 40%. Creatinine improving, no dialysis recommended. 09/01/2021 Appetite improved, swelling persists. PICC line left upper extremity. Creatinine 2.49. 09/02/2021 Swelling improved. PT/OT TCU. Meropenem IV stop justin 10/01/2021. 09/03/2021 Admit to TCU with debility, here for rehabilitation, strengthening, intravenous antibiotics, prior to discharge home with . [facility] Medical History Acquired hypothyroidism Acute kidney injury Acute kidney injury superimposed on CKD Anemia Anxiety and depression Atherosclerosis of coronary artery of [place] heart without angina pectoris Chronic combined systolic and diastolic CHF (congestive heart failure) Chronic kidney disease, stage 3 COVID-19 virus detected (02/29/20) Elevated serum globulin level Esophagitis Essential hypertension Fracture of femoral neck, left, closed HFrEF (heart failure with reduced ejection fraction) Hiatal hernia High cholesterol History of non-ST elevation myocardial infarction (NSTEMI) (04/2020) History of stress test Insomnia Irritable bowel Ischemic cardiomyopathy Left atrial enlargement Nonrheumatic aortic (valve) stenosis Obesity (BMI 30-39.9) Orthopedic aftercare Paroxysmal atrial fibrillation Post-menopausal PUD (peptic ulcer disease) Restless legs Sciatica Secondary pulmonary arterial hypertension Takotsubo cardiomyopathy Ulcer Home Medications nitroglycerin 0.4 mg sublingual tablet 0.4 mg sublingual Q5M PRN Chest Pain 02/24/16 [History Last Taken 06/30/17] levothyroxine 125 mcg tablet 125 mcg PO DAILY thyroid #30 tabs 11/14/18 [History Last Taken 08/18/21] acetaminophen 325 mg tablet 650 mg PO Q6H PRN PRN Pain 1-10 Or Fever 05/13/20 [Rx Last Taken 1 Week Ago ~08/11/21] apixaban 5 mg tablet 2.5 mg PO BID blood thinner 08/21/20 [History Last Taken 08/18/21] geriatric [id number] 1 tab PO DAILY supplement 08/21/20 [History Last Taken 08/18/21] oxycodone 5 mg tablet 5 mg PO Q4H PRN Pain 08/21/20 [History Last Taken 08/18/21] gabapentin 300 mg capsule 300 mg PO TID nerve pain 05/25/21 [History Last Taken 08/18/21] ferrous sulfate 325 mg (65 mg iron) tablet 325 mg PO BID supplement 05/26/21 [History Last Taken 08/18/21] ascorbic acid (vitamin C) 500 mg tablet 500 mg PO BID supplement 08/18/21 [History Last Taken 08/18/21] calcium carbonate 500 mg calcium (1,250 mg) tablet 500 mg PO BIDCM supplement 08/18/21 [History Last Taken 08/18/21] cholecalciferol (vitamin D3) 25 mcg (1,000 unit) tablet 1,000 unit PO DAILY supplement 08/18/21 [History Last Taken 08/18/21] psyllium husk (aspartame) 3.4 gram oral powder packet 1 packet PO DAILY c onstipation 08/18/21 [History Last Taken 08/14/21] sennosides 8.6 mg-docusate sodium 50 mg tablet 2 tablet PO BID stool softener 08/18/21 [History Last Taken 08/18/21] clopidogrel 75 mg tablet 75 mg PO DAILY blood thinner #90 tabs 08/31/21 [Rx Last Taken Unknown] sodium chloride 0.65 % nasal spray aerosol (Deep Sea Nasal) 2 spray NASAL TID PRN PRN NASAL DRYNESS #0 mL 09/02/21 [Rx Last Taken Unknown] ertapenem 1 gram solution for injection 0.5 g IV Q24 Antibiotic 09/03/21 [History Last Taken Unknown] furosemide 20 mg tablet 20 mg PO DAILY@1800 Diuretic 09/03/21 [History Last Taken Unknown] furosemide 40 mg tablet 40 mg PO DAILY Diuretic 09/03/21 [History Last Taken Unknown] metoprolol tartrate 25 mg tablet 25 mg PO BID BP 09/03/21 [History Last Taken Unknown] pantoprazole 40 mg tablet,delayed release 40 mg PO BID Ulcer 09/03/21 [History Last Taken Unknown] Allergy/AdvReac Type Severity Reaction Status Date / Time ceftriaxone [From Rocephin] Allergy Intermediate Rash Verified 08/26/21 14:44 atorvastatin [From Lipitor] AdvReac Pain in Verified 08/18/21 15:02 joints niacin AdvReac Pain in Verified 08/18/21 15:02 joints pregabalin [From Lyrica] AdvReac leg pain Verified 08/18/21 15:02 simvastatin [From Zocor] AdvReac Pain in Verified 08/18/21 15:02 joints Family History Mother Diabetes Heart disease Other CAD (coronary artery disease) Surgical History H/O cardiac catheterization H/O coronary artery bypass surgery (01/2016) History of aortic valve replacement with bioprosthetic valve (01/2016) History of arthroplasty of left hip (04/21/21) History of cardioversion (12/24/19) History of coronary artery stent placement (2014) Social History household members: family Smoking Status: Never smoker alcohol intake: never substance use type: does not use caffeine: No ROS Constitutional Constitutional: Reports fatigue and weakness; Denies chills, fever(s) or weight gain ENT HEENT: Denies headache(s), nasal congestion or nasal discharge Cardiovascular Cardiovascular: Denies chest pain or palpitations Respiratory/Chest Respiratory/Chest: Denies cough, excessive phlegm production or shortness of breath with exertion Gastrointestinal Gastrointestinal: Denies abdominal pain, nausea or vomiting Genitourinary Genitourinary: Denies dysuria Musculoskeletal Musculoskeletal: Denies joint pain or joint swelling Integumentary Integumentary: Denies rash or wounds Neurologic Neurologic: Denies focal weakness, numbness or tingling Psychiatric Psychiatric: Denies anxiety, auditory hallucinations, depression, homicidal ideation or suicidal ideation Physical Exam Const alert General Appearance: cooperative HEENT normocephalic Eyes PERRL and EOMs intact bilaterally Neck supple, no JVD and no carotid bruits Resp normal respiratory effort, normal air movement and clear to auscultation bilaterally Cardio regular rate and regular rhythm GI normal to inspection, nondistended, normoactive bowel sounds, non-tender and non-distended Extremity normal capillary refill Extremity Narrative: PICC Left upper extremity. General Extremity: edema bilateral (Upper, lower extremities.) Skin no rashes or lesions noted General Skin Exam: no breakdown Psych affect normal Appearance: appropriate Assessment & Plan Assessment/Plan (1) Debility: (2) Infected seroma due to and not concurrent with procedure: (3) Left hip prosthetic joint infection: (4) Acute kidney injury: (5) HFrEF (heart failure with reduced ejection fraction): (6) Coronary artery disease: (7) Pulmonary hypertension: (8) Chronic kidney disease, stage 3b: (9) Hypothyroidism: (10) Gastroesophageal reflux disease: (11) Gastritis: (12) Esophageal ulcer: (13) Atrial fibrillation: (14) Sciatica: (15) Iron deficiency anemia: PLAN: Plan 86 year old female with below past medical history hospitalized for infected left hip wound, underwent irrigation debridement 08/20/[address] Nettles, complicated by acute kidney injury, acute on chronic systolic congestive heart failure, anemia secondary to esophageal ulcer, gastritis, admitted to TCU with debility, here for rehabilitation, strengthening, intravenous antibiotics, prior to discharge home with family. * Debility - PT/OT. * Pain - Tylenol 1000mg q6h prn pain (1-5), Oxycodone 5mg q4h prn pain (6-10). * Bowel - senna/colace 2 tablets bid, Metamucil 1 packet daily, Dulcolax 10mg rectal x 1 prn. * Adult immunization - Administer pneumonia vaccine, covid19 vaccine, flu vaccine as appropriate. * DVT prophylaxis - Not necessary, on Eliquis. * Atrial Fibrillation - Metoprolol 25mg bid, Eliquis 2.5mg bid. * Iron deficiency anemia - Ferrous sufate 325mg bid, Vitamin C 500mg bid. * Calcium deficiency - Calcium 500mg bidcm. * Left prosthetic hip infection - Ertapenem 0.5gm iv q24h thru 10/01/2021, Consult Dr. Delacruz to follow. * Chronic systolic congestive heart failure - Metoprolol 25mg bid, Lasix 40mg am, 20mg pm. * Neuropathic pain - Gabapentin 300mg tid. * Hypothyroidism - Levothyroxine 125mcg daily. * Nutrition - MVI daily. * Coronary artery disease s/p cabg s/p stent - Metoprolol 25mg bid, Plavix 75mg daily, NTG 0.4mg q5m prn. * GERD - Pantoprazole 40mg daily. * Dry nose - Sodium chloride 2 sprays tid pnr. * Vitamin D deficiency - D3 25mcg daily. * Acute on chronic kidney disease stage 3b - Consult Nephrology to follow.
[2021-09-03] MEDS: Ferrous Sulfate 325 MG Tablet PO (18:27)
[2021-09-03] MEDS: Senna/Docusate Sodium 1 Tablet 2 TABLET PO ×2 (18:27→18:28)
[2021-09-03] MEDS: Ascorbic Acid 500 MG Tablet PO (18:27)
[2021-09-03] MEDS: Furosemide 20 MG Tablet PO (18:27)
[2021-09-03 18:28] VITALS: PULSE 99
[2021-09-03] MEDS: Metoprolol Tartrate 25 MG Tablet PO (18:28)
[2021-09-03] MEDS: Pantoprazole Sodium 40 MG Tablet PO (18:28)
[2021-09-03] MEDS: APIXABAN 2.5 MG TABLET PO (18:28)
[2021-09-03] MEDS: Calcium (Elemental) 500 MG Tablet PO (18:28)
[2021-09-03] MEDS: Gabapentin 300 MG Capsule PO (20:46)
[2021-09-04 05:35] VITALS: PULSE 94
[2021-09-04] MEDS: Clopidogrel Bisulfate 75 MG Tablet PO (05:35)
[2021-09-04] MEDS: Furosemide 40 MG Tablet PO (05:35)
[2021-09-04] MEDS: Pantoprazole Sodium 40 MG Tablet PO ×2 (05:35→17:37)
[2021-09-04] MEDS: Psyllium 1 PACKET PO (05:35)
[2021-09-04] MEDS: APIXABAN 2.5 MG TABLET PO ×2 (05:35→17:38)
[2021-09-04] MEDS: Levothyroxine 125 MCG Tablet PO (05:35)
[2021-09-04] MEDS: Metoprolol Tartrate 25 MG Tablet PO ×2 (05:35→17:39)
[2021-09-04] MEDS: Gabapentin 300 MG Capsule PO ×3 (05:36→20:03)
[2021-09-04 05:53] LABS: Absolute Lymphocyte Count 1.53 X10^3/uL (0.83-4.51); Absolute Neutrophil Count 7.7 X10^3/uL (2.0-7.7); Basophil# 0.18 X10^3/uL; Basophil% 1.6 % (0-1); Eosinophil# 0.29 X10^3/uL; Eosinophils% 2.6 % (0-5); Hematocrit 33.8 % (37-47); Hemoglobin 10.6 g/dL (12.0-15.0); Lymphocyte # 1.53 X10^3/ul (0.83-4.51); Lymphocyte % 13.9 % (19-41); Mean Corp Hgb Conc 31.4 g/dL (32-36); Mean Corpuscular Hgb 30.2 pg (27.0-32.0); Mean Corpuscular Volume 96.3 fL (81-99); Mean Platelet Vol. 10.1 fl (6.2-12.0); Monocyte# 1.18 X10^3/uL; Monocyte% 10.7 % (0-10); NRBC Flagged by Analyzer 0.3 % (0-5); Neutrophil # 7.74 X10^3/uL (2.7-7.7); Neutrophil % 70.3 % (47-70); POSITIVE MORPHOLOGY YES; Platelet Count 319 K/mm3 (150-450); RBC Distribution Width CV 22.3 % (11.6-14.6); Red Blood Count 3.51 M/mm3 (4.2-5.4)
[2021-09-04 05:54] LABS: Differential Indicated SCAN CRITERIA MET
[2021-09-04 06:18] LABS: Anion Gap 8 (5-15); Anisocytosis 1+; BUN 67 mg/dL (7-18); BUN/Creat Ratio 35.4 RATIO (10-20); Calcium,Total 9.5 mg/dL (8.5-10.1); Chloride 109 mmol/L (98-107); Creatinine, Serum 1.89 mg/dL (0.55-1.02); Differential Comment SCANNED; EST Glomerular Filtration Rate 27 mL/min (>60); Est Glom Filt Rate - Afr Amer 33 mL/min (>60); Glucose 138 mg/dL (74-106); Macrocytosis 1+; Microcytosis RARE; Potassium 4.9 mmol/L (3.5-5.1); Sodium Level 140 mmol/L (136-145)
[2021-09-04] MEDS: Ferrous Sulfate 325 MG Tablet PO ×2 (07:34→17:38)
[2021-09-04] MEDS: Multivitamins,Ther W-Minerals Tablet 1 TABLET PO (07:34)
[2021-09-04] MEDS: Calcium (Elemental) 500 MG Tablet PO ×2 (07:35→17:38)
[2021-09-04] MEDS: Cholecalciferol (VIT D3) 25 MCG TABLET (1,000 UNITS) PO (07:35)
[2021-09-04] MEDS: Ascorbic Acid 500 MG Tablet PO ×2 (07:35→17:38)
--- NOTE | 2021-09-04 10:15 | CASEMGMT ---
Social Work Met with patient to complete initial assessment. Introduced self and role. Dtr present. Pt granted permission for SW to complete assessment with dtr present. Verified contacts. Explained [employer] insurance with evals being sent today then will get NRD. Continued stay is not guaranteed with each review. Confirmed pt is new on O2, has wounds, a wound vac, and receiving IV ATB Q24 through 10/07. The goal is for pt to return home with once all are resolved. is active and can assist. Dtr does not work so she can assist as needed. Son is involved but works time clock mechanic. Discussed code status and MOLST form. Pt confirms DNR-CCA, no intubation. MOLST communicated to , placed in chart. Discussed pt's preferences with food choices; having poor appetite; pt being weak to feed self consistently. Dtr requesting 1:1 feed for assistance along with needing encouragement to eat. Family will attempt to visit during meal times, but cannot do it consistently. Pt does report having trouble swallowing at times. SW noted all of the feedback and will relay to nursing. Dtr/pt appreciative. SW to continue to follow. TONGUE AND QUARTER STITCHER updated on meal preferences, 1:1 assist with meals, ST order and request for appetite stimulant. Kriss Coates, MEDICAL TRANSCRIBER [employer]ERCIAL REVIEW APPRAISER
[2021-09-04] MEDS: Tuberculin,Purif.prot.deriv. 50 TU/ML Vial 0.1 ML ID (10:42)
[2021-09-04] MEDS: 0.9% Normal Saline 250 ML IV.SOLN. IV (10:42)
--- NOTE | 2021-09-04 12:07 | PCM.PN.ID ---
Physical Exam Narrative Feeling unwell, c/o diarrhea, no abd pain Const alert and no apparent distress Resp normal air movement and clear to auscultation bilaterally Cardio regular rate and regular rhythm GI soft to palpation, non-tender and non-distended Extremity General Extremity: edema Skin no rashes or lesions noted ID ID: Route of nutrition/ use of supplements: [] Nutritional Intake: [] IV Site: [] Hudson Catheter: [] Assessment & Plan Assessment/Plan (1) Left hip prosthetic joint infection: PLAN: s/p OR 08/20/[address] Nettles for I&D and revision of L hip.? One surg cx with proteus and bacteroides.? Now course complicated by worsening EL. 08/24 changed abx to ceftriaxone.? Neph consulted.? Plan on 6 weeks iv ertapenem, stop date 10/01/21.? Had rash with ceftriaxone. C/o diarrhea, on senna/colace, recommend stopping/decreasing. Will follow.
[2021-09-04] MEDS: Acetaminophen 500 MG Tablet 1000 MG PO (13:31)
--- NOTE | 2021-09-04 14:40 | PN.RENAL_ITS ---
Subjective Subjective Following for EL on CKD Patient was moved to TCU. Resting quielty in bed. No complaints. No overnight events Objective Data Objective Data Vital Signs: Vital Signs Temp Pulse Resp BP Pulse Ox O2 Del Method O2 Flow Rate 97.8 F 94 22 H 149/80 H 92 Nasal Cannula 2.5 09/03/21 15:40 09/04/21 05:35 09/03/21 15:40 09/03/21 15:40 09/03/21 15:40 09/04/21 09:16 09/04/21 09:33 Oxygen Flow Rate (L/min) 2.5 Oxygen Delivery Method Nasal Cannula Weight: 94 kg Intake & Output: Intake and Output for Last 24 Hours 09/02/21 09/03/21 09/04/21 23:59 23:59 23:59 Intake Total 120 / 120 255 / 255 Output Total 600 / 600 Balance 120 / 120 -345 / -345 Lab / Micro Data Result Diagrams: 09/04/21 05:23 09/04/21 05:23 Labs: Laboratory Results - last 24 hr 09/04/21 05:23: WBC 11.0, RBC 3.51 L, Hgb 10.6 L, Hct 33.8 L, MCV 96.3, MCH 30.2, MCHC 31.4 L, RDW Std Deviation 74.0 H, RDW Coeff of [place] 22.3 H, Plt Count 319, MPV 10.1, Immature Gran % (Auto) 0.900, Neut % (Auto) 70.3 H, Lymph % (Auto) 13.9 L, Mccone % (Auto) 10.7 H, Eos % (Auto) 2.6, Baso % (Auto) 1.6 H, Absolute Neuts (auto) 7.7, Absolute Lymphs (auto) 1.53, Nucleated RBC % 0.3, Differential Comment SCANNED, Anisocytosis 1+, Microcytosis RARE, Macrocytosis 1+ 09/04/21 05:23: Sodium 140, Potassium 4.9, Chloride 109 H, Carbon Dioxide 23.0, Anion Gap 8, BUN 67 H, Creatinine 1.89 H, Est GFR (MDRD) Af Amer 33 L, Est GFR (MDRD) Non-Af 27 L, BUN/Creatinine Ratio 35.4 H, Glucose 138 H, Calcium 9.5 Physical Exam Narrative Const: A&Ox3, no apparent distress HEENT: oral mucosa moist Cardio: S1S2 RRR Respiratory: LS clear anteriorly Extremities: 1+ edema to b/l legs. Indwelling fuentes with clear urine in bag wound vac to left hip Assessment & Plan Assessment/Plan (1) Acute kidney injury: (2) Chronic kidney disease, stage 3b: (3) Left hip prosthetic joint infection: (4) HFrEF (heart failure with reduced ejection fraction): PLAN: Plan - Nonoliguric EL on CKD;? EL secondary to prolonged effective blood volume depletion likely has progressed now to ATN.? Creatinine 1.7 mg/dL on admission, creatinine peaked at 4.00 mg/dL on 08/27 and continues to have improvement in r enal function daily, creatinine is 1.89mg/dL.? Renal US did not show any hydronephrosis. UA negative for blood, protein 15. ? Patient is non-oliguric, no significant uremic symptoms.? Urine output has picked up.? Potassium and bicarb acceptable. At this time there is no acute indication for [employer].? Recommend strict I&O.? Recommend avoiding nephrotoxic agents. -last CXR showed mild degree of CHF, we decreased IVF rate on 08/27, and stopped IV fluids altogether on 08/28.? Patient is on O2 2 L nasal cannula and at times on room air.? Encouraged patient to be sitting up in chair during the day and for all meals.? -Patient has poor solute and fluid intake, encouraged patient to increase solute and fluid intake.? Continue Ensure as ordered.? - History for heart failure with reduced EF,?estimated ejection fraction of 40 to 45%.? She had been on furosemide 20 mg IV twice daily since admission but th is was stopped last Tuesday due to rising Creatinine. Off IVF as of 08/28.? Restarted back on Lasix 20 mg p.o. twice daily 08/29. Now on lasix 40mg am and pm dose 20mg daily; will continue this regimen for now. Though patient has edema, this may also be third spacing.? Her albumin is 2.0.? Patient has had very poor oral intake but is now improving. - left hip infection and had been receiving vancomycin.? Her Vanco trough and random Vanco levels were slightly elevated.? Off Vanco and currently on ertapenem for antibiotic coverage. ID following - metabolic acidosis likely from EL and diarrhea. Bicarb now normal - Patient has CKD stage III/IV with risk factors including hypertension, coronary artery disease and heart failure.? Suspect chronic fluctuating creatinine levels from cardiorenal syndrome physiology.? Baseline serum creatinine ranging around 1.7 to 2 mg/dL.? - Patient did have a stool positive for occult blood, seen by GI. Upper GI with findings of bleeding esophageal ulcer which was treated with heater probe and biopsied, also has small hiatal hernia and gastritis which was biopsied.? Patient is on PPI.
[2021-09-04 15:33] VITALS: BP 146/58; PULSE 88; RESP 18; TEMP 35.9; O2SAT 95
[2021-09-04] MEDS: Furosemide 20 MG Tablet PO (17:37)
[2021-09-04] MEDS: Senna/Docusate Sodium 1 Tablet 2 TABLET PO (17:38)
[2021-09-04 17:39] VITALS: PULSE 76
[2021-09-05] MEDS: Psyllium 1 PACKET PO (05:02)
[2021-09-05] MEDS: Clopidogrel Bisulfate 75 MG Tablet PO (05:02)
[2021-09-05] MEDS: Levothyroxine 125 MCG Tablet PO (05:02)
[2021-09-05] MEDS: Senna/Docusate Sodium 1 Tablet 2 TABLET PO ×2 (05:02→18:14)
[2021-09-05 05:03] VITALS: PULSE 71
[2021-09-05] MEDS: Metoprolol Tartrate 25 MG Tablet PO ×2 (05:03→18:16)
[2021-09-05] MEDS: Furosemide 40 MG Tablet PO (05:03)
[2021-09-05] MEDS: APIXABAN 2.5 MG TABLET PO ×2 (05:03→18:12)
[2021-09-05] MEDS: Pantoprazole Sodium 40 MG Tablet PO ×2 (05:03→18:15)
[2021-09-05] MEDS: Gabapentin 300 MG Capsule PO ×3 (05:04→19:52)
[2021-09-05] MEDS: Ascorbic Acid 500 MG Tablet PO ×2 (07:51→18:12)
[2021-09-05] MEDS: Ferrous Sulfate 325 MG Tablet PO ×2 (07:51→18:11)
[2021-09-05] MEDS: Calcium (Elemental) 500 MG Tablet PO ×2 (07:51→18:12)
[2021-09-05] MEDS: Multivitamins,Ther W-Minerals Tablet 1 TABLET PO (07:52)
[2021-09-05] MEDS: Cholecalciferol (VIT D3) 25 MCG TABLET (1,000 UNITS) PO (07:53)
[2021-09-05 09:30] VITALS: PULSE 83; RESP 18; O2SAT 96
--- NOTE | 2021-09-05 10:12 | NURSING ---
CRACKLES TO PT POST AND FRONT LUNGS. I.S GIVEN. PT OXYGEN DROPS TO 88% ON 3L WHEN PT STANDS UP AND WALKS. BUMPED OXYGEN TO 4L AND PT 91% WHEN UP. PT WOULD LIKE TO TALK TO . NOTE LEFT. RN AWARE.
[2021-09-05] MEDS: 0.9% Saline Lock 10 ML Syringe IV ×4 (10:23→19:52)
[2021-09-05] MEDS: Nystatin Powder 15gm Bottle 1 APPLIC TOPICAL ×2 (10:52→19:54)
--- NOTE | 2021-09-05 14:17 | PCM.PROGNOTE ---
Subjective Subjective Afebrile VSS Requiring oxygen now to keep the sats up. She has not been on oxygen since she had COVID in February 2021. Oral intake is poor Discussed with nursing - no problems that need addressed Reviewed the PT/OT/ST notes Medication list reviewed. She is c/o SOB at rest and worse with exertion. Sleeping with the head of the bed elevated. Denies CP, lightheadedness. Occasional cough and she thinks it is due to post nasal drainage. Objective Data Objective Data Vital Signs: Vital Signs Temp Pulse Resp BP Pulse Ox O2 Del Method O2 Flow Rate 96.7 F L 83 18 146/58 H 96 Nasal Cannula 3 09/04/21 15:33 09/05/21 09:30 09/05/21 09:30 09/04/21 15:33 09/05/21 09:30 09/05/21 09:30 09/05/21 09:33 Oxygen Flow Rate (L/min) 3 Oxygen Delivery Method Nasal Cannula Weight: 198 lb 6.4 oz Intake & Output: Intake and Output for Last 24 Hours 09/03/21 09/04/21 09/05/21 23:59 23:59 23:59 Intake Total 120 / 120 525 / 525 565 / 565 Output Total 1250 / 1250 400 / 400 Balance 120 / 120 -725 / -725 165 / 165 Lab / Micro Data Result Diagrams: 09/04/21 05:23 09/04/21 05:23 Physical Exam Const alert and oriented x3 Constitutional Narrative: She has labored respirations and mild conversational dyspnea. She is pleasant and appropriate. HEENT moist oral mucous membranes Neck Neck Narrative: + JVD Resp Resp Narrative: Mild tachypnea. No accessory muscle use, Crackles throughout both lungs with decreased BS's in the bases. Mild conversational dyspnea. Cardio Cardio Narrative: irreg irreg tachycardic +S3 gallop Extremity Extremity Narrative: She has no significant ankle edema but, she has edema of the posterior thighs and the flanks. Assessment & Plan Assessment/Plan (1) Acute on chronic systolic CHF (congestive heart failure): PLAN: DC the PO Lasix and start IV Lasix 40 mg Q 8H. K was 4.9 yesterday and will recheck in the AM. Recheck lab in the AM. PA and Lateral CXR in the AM. (2) Atrial fibrillation: PLAN: rate is up due to CHF and I expect it to come down with diuresis. No change to meds to control rate at this time. (3) Chronic kidney disease, stage 3b: (4) Coronary artery disease: (5) Hypoxemia: PLAN: Due to acute on chronic CHF. Wean O2 as tolerated as the failure resolves. Charges/Coding Visit Charges Inpatient E&M: [address] [facility] Subs L2
[2021-09-05] MEDS: Furosemide 40 MG/4 ML Vial IV ×2 (14:34→19:52)
[2021-09-05 15:28] VITALS: BP 97/58; PULSE 84; RESP 18; TEMP 36.3; O2SAT 97
[2021-09-05 18:16] VITALS: BP 136/62; PULSE 90
[2021-09-05] MEDS: Ipratropium Bromide 0.06% NASAL SPRAY 2 SPRAY NASAL (18:18)
[2021-09-05 18:25] VITALS: BP 136/62; PULSE 90
[2021-09-06] VITALS (9 sets, daily range): BP systolic 109–141; BP diastolic 51–96; PULSE 116–137; RESP 17–24; TEMP 36.3–36.6; O2SAT 88–97
[2021-09-06] MEDS: Gabapentin 300 MG Capsule PO ×3 (05:35→19:49)
[2021-09-06] MEDS: Levothyroxine 125 MCG Tablet PO (05:35)
[2021-09-06] MEDS: Ipratropium Bromide 0.06% NASAL SPRAY 2 SPRAY NASAL (05:35)
[2021-09-06] MEDS: 0.9% Saline Lock 10 ML Syringe IV ×5 (05:36→18:39)
[2021-09-06] MEDS: Furosemide 40 MG/4 ML Vial IV ×3 (05:36→18:40)
[2021-09-06] MEDS: APIXABAN 2.5 MG TABLET PO ×2 (05:36→18:22)
[2021-09-06] MEDS: Metoprolol Tartrate 25 MG Tablet PO ×2 (05:36→18:23)
[2021-09-06] MEDS: Clopidogrel Bisulfate 75 MG Tablet PO (05:36)
[2021-09-06] MEDS: Nystatin Powder 15gm Bottle 1 APPLIC TOPICAL (05:37)
[2021-09-06] MEDS: Pantoprazole Sodium 40 MG Tablet PO ×2 (05:37→18:22)
[2021-09-06 06:50] LABS: Absolute Lymphocyte Count 1.13 X10^3/uL (0.83-4.51); Absolute Neutrophil Count 8.6 X10^3/uL (2.0-7.7); Basophil# 0.13 X10^3/uL; Basophil% 1.1 % (0-1); Eosinophils% 3.5 % (0-5); Hematocrit 33.3 % (37-47); Lymphocyte # 1.13 X10^3/ul (0.83-4.51); Lymphocyte % 9.9 % (19-41); Mean Corpuscular Hgb 29.9 pg (27.0-32.0); Mean Corpuscular Volume 99.7 fL (81-99); Mean Platelet Vol. 10.4 fl (6.2-12.0); Monocyte# 1.01 X10^3/uL; Monocyte% 8.9 % (0-10); NRBC Flagged by Analyzer 0.3 % (0-5); Neutrophil # 8.64 X10^3/uL (2.7-7.7); Neutrophil % 75.8 % (47-70); POSITIVE MORPHOLOGY YES; Platelet Count 301 K/mm3 (150-450); RBC Distribution Width CV 22.5 % (11.6-14.6); RBC Distribution Width SD 78.9 fl (35.1-43.9); Red Blood Count 3.34 M/mm3 (4.2-5.4); White Blood Count 11.4 K/mm3 (4.4-11.0)
[2021-09-06 06:55] LABS: Differential Indicated SCAN CRITERIA MET
[2021-09-06 07:06] LABS: Anion Gap 9 (5-15); BUN 64 mg/dL (7-18); BUN/Creat Ratio 39.5 RATIO (10-20); Calcium,Total 9.3 mg/dL (8.5-10.1); Chloride 108 mmol/L (98-107); Creatinine, Serum 1.62 mg/dL (0.55-1.02); EST Glomerular Filtration Rate 32 mL/min (>60); Est Glom Filt Rate - Afr Amer 39 mL/min (>60); Estimated Creatinine Clearance 36.73 ml/min; Glucose 111 mg/dL (74-106); Magnesium 1.8 mg/dL (1.6-2.6); Potassium 4.5 mmol/L (3.5-5.1); Sodium Level 143 mmol/L (136-145)
[2021-09-06 07:11] LABS: Anisocytosis 2+
--- NOTE | 2021-09-06 09:00 | RAD_ITS ---
EXAM: XR CHEST, 2 VIEWS CLINICAL INDICATION: CHF TECHNIQUE: Frontal and lateral views of the chest. This report was created using [employer] report generation technology. COMPARISON: XR Chest dated 08/29/2021 FINDINGS: LUNGS AND PLEURAL SPACES: Persistent small right pleural effusion with airspace opacification of the right lower lobe. Residual interstitial thickening which may represent pulmonary edema. Mild atelectatic change left lung base. No pneumothorax. HEART: Stable cardiomegaly. MEDIASTINUM: Radiolucency at the right lung base suggestive of a hiatal hernia. BONES/JOINTS: Osteoporotic. SOFT TISSUES: Unremarkable. Left arm PICC line catheter remains in place. RAD/Chest PA and Lateral IMPRESSION: Right lower lobe pneumonia with small parapneumonic effusion. Electronically Signed: David Lazar MD at 9:21 EDT ,
[2021-09-06] MEDS: Cholecalciferol (VIT D3) 25 MCG TABLET (1,000 UNITS) PO (09:06)
[2021-09-06] MEDS: Ascorbic Acid 500 MG Tablet PO ×2 (09:06→18:20)
[2021-09-06] MEDS: Calcium (Elemental) 500 MG Tablet PO (09:06)
[2021-09-06] MEDS: Multivitamins,Ther W-Minerals Tablet 1 TABLET PO (09:07)
[2021-09-06] MEDS: Ferrous Sulfate 325 MG Tablet PO (09:07)
[2021-09-06] MEDS: Sodium Chloride 0.65% 1 SPRAY SPRAY.BTL 2 SPRAY NASAL (09:14)
--- NOTE | 2021-09-06 09:34 | NURSING ---
PT CAME BACK FROM CHEST X-RAY AND STATED SHE DIDN'T FEEL VERY GOOD AND FELT SHE COULDN'T GET ENOUGH OXYGEN. VITALS DONE, OXYGEN 78% ON 4L, HR 118-133 IRR. 109/51 BP. TURNED 02 UP TO 5L NOW 88%. RN AWARE AND CALLING
--- NOTE | 2021-09-06 09:43 | NURSING ---
dr Rivers notified of pt chest xray and saturation/vitals/HR. new orders for IV ATB, blood cultures, mucinex BID and notify resp therapy of pt needing mask
[2021-09-06] MEDS: guaiFENesin 600 MG Tablet PO ×2 (10:06→18:22)
--- NOTE | 2021-09-06 10:24 | NURSING ---
DR ORDERS IN,PT PLACED ON VENTURI MASK AT 8L. OXYGEN NOW 93%. IN ROOM BEING UPDATED.
--- NOTE | 2021-09-06 10:35 | PCM.RX.CS ---
Consult Pharmacy has been consulted to manage selected antiobiotic: Vancomycin Type of Consult: New start Labs: Sodium 143 mmol/L (136-145) 09/06/21 05:30 Potassium 4.5 mmol/L (3.5-5.1) 09/06/21 05:30 Chloride 108 mmol/L (98-107) H 09/06/21 05:30 Carbon Dioxide 26.0 mmol/L (21.0-32.0) 09/06/21 05:30 Anion Gap 9 (5-15) 09/06/21 05:30 BUN 64 mg/dL (7-18) H 09/06/21 05:30 Creatinine 1.62 mg/dL (0.55-1.02) H 09/06/21 05:30 Est GFR (MDRD) Af Amer 39 mL/min (>60) L 09/06/21 05:30 Est GFR (MDRD) Non-Af 32 mL/min (>60) L 09/06/21 05:30 BUN/Creatinine Ratio 39.5 RATIO (10-20) H 09/06/21 05:30 Glucose 111 mg/dL (74-106) H 09/06/21 05:30 Goal Trough: 10-15 mcg/mL Pharmacy Plan for Drug Dosing: NEW START IV VANCOMYCIN Consulting Physician: Dr. Rivers Indication: R/O infection Goal Trough: 10-15 SrCr: 1.62 CrCl: 26 mL/min (using AdjBW) Comments: 1250mg IV x1 ordered and administered 09/06/21 @1022 Vancomycin Dose: 750mg IV Q24hr to start 09/07/21 @1000 Pending Level: 09/08/21 @0930, prior to 3rd total dose per protocol Pharmacy Service will continue to monitor and adjust dosing as required.
[2021-09-06 11:02] LABS: Lactic Acid 1.7 mmol/L (0.4-1.9)
--- NOTE | 2021-09-06 11:12 | PCM.PROGNOTE ---
Subjective Subjective Invanz for infected hip prosthesis due to Proteus Mirabilis and Bacteroides Fragilis Afebrile HR is increased, up to 118. Blood pressure has ranged from 97/58-130 7/96 for the past 24 hours. O2 sat is 94% on a 40% venti mask today. Breathing is less labored on the mask. Respiratory rate decreased from 24-17 following application of the Ventimask. Oral intake is poor Discussed with nursing -increased work of breathing today and complaints of shortness of breath. She was 88% on 5 L this morning at 830. Currently she is 94% on a 40% Ventimask. Medication list reviewed. All lab was personally reviewed. White count is 11.4 today, up from 9.0 on 09/03/2021. She has 76% neutrophils. Hemoglobin is stable at 10. MCV is increasing and is 99.7 today. She has 2+ anisocytosis. Sodium is 143 and the serum bicarb is 26. Potassium is 4.5. The BUN is 64 which is improved and the creatinine is down to 1.62 from 1.97 on 09/02/2021. Lactic acid is normal at 1.7. Calcium corrected for hypoalbuminemia is high at 10.66 today. COVID-19 rapid antigen is negative. Respiratory panel is pending. Blood cultures x2 were drawn today. She is not producing sputum. MRSA nasal swab is negative. CXR was reviewed and she has a R basilar PNA with a effusion. The effusion is bigger than it was on the 14 of this month. PVC is less than on 08/27/21. She has bibasilar infiltrates, R>L. she denies CP. She has SOB, decreased appetite, weakness. Denies nausea, vomiting, abd pain. No diarrhea, mouth pain or painful swallowing. Objective Data Objective Data Vital Signs: Vital Signs Temp Pulse Resp BP Pulse Ox O2 Del Method O2 Flow Rate 97.9 F 118 H 17 109/51 L 94 Venturi Mask 8 09/06/21 08:35 09/06/21 08:35 09/06/21 10:42 09/06/21 08:35 09/06/21 10:42 09/06/21 10:42 09/06/21 10:42 FiO2 40 09/06/21 10:42 Oxygen Flow Rate (L/min) 8 Oxygen Delivery Method Venturi Mask Weight: 198 lb 6.4 oz Intake & Output: Intake and Output for Last 24 Hours 09/04/21 09/05/21 09/06/21 23:59 23:59 23:59 Intake Total 525 / 525 685 / 685 240 / 240 Output Total 1250 / 1250 1100 / 1100 1900 / 1900 Balance -725 / -725 -415 / -415 -1660 / -1660 Lab / Micro Data Result Diagrams: 09/06/21 05:30 09/06/21 05:30 Labs: Laboratory Results - last 24 hr 09/06/21 05:30: WBC 11.4 H, RBC 3.34 L, Hgb 10.0 L, Hct 33.3 L, MCV 99.7 H, MCH 29.9, MCHC 30.0 L, RDW Std Deviation 78.9 H, RDW Coeff of Leatha 22.5 H, Plt Count 301, MPV 10.4, Immature Gran % (Auto) 0.800, Neut % (Auto) 75.8 H, Lymph % (Auto) 9.9 L, [place] % (Auto) 8.9, Eos % (Auto) 3.5, Baso % (Auto) 1.1 H, Absolute Neuts (auto) 8.6 H, Absolute Lymphs (auto) 1.13, Nucleated RBC % 0.3, Anisocytosis 2+ 09/06/21 05:30: Sodium 143, Potassium 4.5, Chloride 108 H, Carbon Dioxide 26.0, Anion Gap 9, BUN 64 H, Creatinine 1.62 H, Estim Creat Clear Calc 36.73, Est GFR (MDRD) Af Amer 39 L, Est GFR (MDRD) Non-Af 32 L, BUN/Creatinine Ratio 39.5 H, Glucose 111 H, Calcium 9.3, Magnesium 1.8 09/06/21 10:00: Lactic Acid 1.7 Micro: Microbiology 09/06/21 10:15 Nasal Secretion SARS-CoV-2 Antigen (Rapid) - Final Radiography Diagnostic Testing: Radiology Impression Chest X-Ray 09/06/21 09:00 IMPRESSION: Right lower lobe pneumonia with small parapneumonic effusion. Electronically Signed: David Lazar MD at 9:21 EDT , Physical Exam Narrative Looks very weak. she has the venti mask on and she is no longer tachypneic and she is able to talk in complete sentences. Const alert and oriented x3 Constitutional Narrative: appropriate General Appearance: cooperative HEENT HEENT Narrative: MM are dry today Neck Neck Narrative: Less JVD today than yesterday. General: trachea midline Resp Resp Narrative: Crackles in the upper lobes have resolved. She has egophony in the right base. There are also bibasilar crackles and she has scattered expiratory wheezing. She has no crackles anteriorly today.Breathing is not labored at the present time. Cardio Cardio Narrative: increased HR, difficult to determine if it is irreg. EKG ordered. Rate: tachycardic GI normal to inspection, nondistended, normoactive bowel sounds, soft to palpation and non-tender Extremity Extremity Narrative: She has pitting edema of the calves and the thighs BL. No edema in the flanks today. Skin General Skin Exam: no breakdown Rashes: no rashes Neuro CN's II-XII intact bilaterally and no focal motor deficits Assessment & Plan Assessment/Plan (1) Hospital acquired PNA: PLAN: Blood cultures, sputum culture, resp panel and COVID ordered. Add Vancomycin to the Invanz. IS, PRN aerosols, Mucinex. I discussed her code status with her and she does not want intubation. Will keep on TCU for now. (2) Acute respiratory failure with hypoxemia: PLAN: She has been transitioned to a Ventimask at 40% and is doing better. Breathing improved after an albuterol aerosol however it did increase the heart rate. (3) Atrial fibrillation: PLAN: She has a history of paroxysmal atrial fibrillation. The heart rate is rapid now and I cannot tell if it is regular or irregular so an EKG has been ordered. (4) Iron deficiency anemia: PLAN: She is on an oral iron supplement however she is also on PPI which impairs absorption. MCV is increasing and she has 2+ anisocytosis. Will check iron studies, B12 and folate. Rare microcytes on the peripheral smear recently. (5) Chronic kidney disease, stage 3b: PLAN: Creatinine has actually improved after Lasix yesterday. (6) Pulmonary hypertension: (7) Infected seroma due to and not concurrent with procedure: PLAN: Continue Invanz for Proteus mirabilis and Bacteroides fragilis infected seroma. Vancomycin added. (8) Esophageal ulcer: PLAN: Continue the PPI (9) Gastritis: (10) Heme + stool: (11) Hypercalcemia: PLAN: She is on a calcium supplement 500 mg twice daily. Will hold for now. Calcium is likely increased secondary to inactivity and supplementation. Check a Vitamin D level to R/O vitamin D intoxication. PLAN: Plan I spoke with her Shane who was present at the bedside and all questions were answered. Charges/Coding Visit Charges Inpatient E&M: 88295 [facility] Subs L3
[2021-09-06 11:24] LABS: Albumin, Serum 2.3 g/dL (3.2-5.0)
--- NOTE | 2021-09-06 11:41 | EKG12_ITS ---
Test Reason : Blood Pressure : / mmHG Vent. Rate : 127 BPM Atrial Rate : 122 BPM P-R Int : 000 ms QRS Dur : 100 ms QT Int : 280 ms P-R-T Axes : 000 -43 134 degrees QTc Int : 406 ms Atrial fibrillation Left axis deviation Abnormal ECG When compared with ECG of 19-AUG-2021 04:58, Vent. rate has increased BY 48 BPM Nonspecific T wave abnormality no longer evident in Inferior leads Nonspecific T wave abnormality no longer evident in Anterior leads Confirmed by MANPREET JIMENEZ, OZ ([id number]), magazine editor SABRINA FLORES ([id number]) on 09/09/2021 12:48:17 PM Referred By: S Confirmed By:OZ CASE MD
[2021-09-06] MEDS: Albuterol 2.5 MG/3 ML VIAL.NEB. INHALATION ×2 (11:42→19:10)
[2021-09-06 11:51] LABS: M R Staph aureus DNA By PCR Negative (Negative); Probe Check PASS; Specimen Processing Control PASS
[2021-09-06 12:37] LABS: Ferritin 138 ng/mL (8-252); Iron 36 ug/dL (50-170); Iron Binding Capacity,Total 267 ug/dL (250-450); PERCENT IRON SATURATION 13.5 % (15.0-55.0)
[2021-09-06] MEDS: Menthol/Lanolin/Calamine/Znox 113 GM Tube 1 APPLIC TOPICAL (18:21)
[2021-09-07] VITALS (9 sets, daily range): BP systolic 124–128; BP diastolic 63–73; PULSE 92–124; RESP 16–22; TEMP 36.4–36.7; O2SAT 94–97; BMI 38.9
--- NOTE | 2021-09-07 00:09 | NURSING ---
O2 decreased to 35% via venti mask
[2021-09-07] MEDS: 0.9% Saline Lock 10 ML Syringe IV ×2 (05:18→09:25)
[2021-09-07] MEDS: Furosemide 40 MG/4 ML Vial IV (05:19)
[2021-09-07] MEDS: Menthol/Lanolin/Calamine/Znox 113 GM Tube 1 APPLIC TOPICAL ×2 (05:20→17:17)
[2021-09-07] MEDS: APIXABAN 2.5 MG TABLET PO ×2 (05:20→17:16)
[2021-09-07] MEDS: Pantoprazole Sodium 40 MG Tablet PO ×2 (05:20→17:16)
[2021-09-07] MEDS: Clopidogrel Bisulfate 75 MG Tablet PO (05:20)
[2021-09-07] MEDS: Levothyroxine 125 MCG Tablet PO ×2 (05:20→05:27)
[2021-09-07] MEDS: Nystatin Powder 15gm Bottle 1 APPLIC TOPICAL ×2 (05:22→17:17)
[2021-09-07] MEDS: guaiFENesin 600 MG Tablet PO ×2 (05:22→17:18)
[2021-09-07] MEDS: Senna/Docusate Sodium 1 Tablet 2 TABLET PO ×2 (05:22→17:16)
[2021-09-07] MEDS: Metoprolol Tartrate 25 MG Tablet PO ×3 (05:22→18:23)
[2021-09-07] MEDS: Gabapentin 300 MG Capsule PO ×3 (05:27→21:13)
[2021-09-07] MEDS: Psyllium 1 PACKET PO (05:54)
[2021-09-07 06:22] LABS: Albumin, Serum 2.2 g/dL (3.2-5.0); BUN 60 mg/dL (7-18); BUN/Creat Ratio 34.7 RATIO (10-20); Chloride 109 mmol/L (98-107); Creatinine, Serum 1.73 mg/dL (0.55-1.02); EST Glomerular Filtration Rate 30 mL/min (>60); Est Glom Filt Rate - Afr Amer 36 mL/min (>60); Estimated Creatinine Clearance 34.39 ml/min; Glucose 125 mg/dL (74-106); Phosphorus 4.1 mg/dL (2.5-4.9); Potassium 4.3 mmol/L (3.5-5.1); Sodium Level 143 mmol/L (136-145)
[2021-09-07] MEDS: Albuterol 2.5 MG/3 ML VIAL.NEB. INHALATION ×3 (07:10→19:52)
[2021-09-07 07:41] LABS: Vitamin B12 1203 pg/mL (211-911); Vitamin D,25 Hydroxy 54.1 ng/mL
[2021-09-07] MEDS: Ascorbic Acid 500 MG Tablet PO ×2 (08:31→17:15)
[2021-09-07] MEDS: Multivitamins,Ther W-Minerals Tablet 1 TABLET PO (08:31)
[2021-09-07] MEDS: Cholecalciferol (VIT D3) 25 MCG TABLET (1,000 UNITS) PO (08:31)
--- NOTE | 2021-09-07 10:19 | PCM.PROGNOTE ---
Subjective Subjective Invanz for hip infection due to Proteus mirabilis and Bacteroides fragilis Vancomycin day #3 for bibasilar pneumonia. Afebrile VSS-blood pressure is stable. The heart rate is better today at 111 and she was started on amiodarone yesterday. Ventimask has been weaned down to 35% and she is maintaining a pulse ox of 94%. I/O 930/2350 600 was PO. Balance for 09/07/21 is -1420. Discussed with nursing - she has intertrigo but, she also appears to have an allergic dermatitis on the abdomen. Medication list reviewed. All lab was personally reviewed. Serum iron is low at 36 and the iron saturation is only 13.5. Ferritin is 138. B12 and folate were normal. Vitamin D is good at 54. Blood cultures are pending. Respiratory panel is negative. Nasal MRSA swab was negative. Rapid COVID test was negative. Urine culture is pending. Not producing sputum. Denies CP, lightheadedness, KIM, abdominal pain, nausea. She is SOB but with the venti mask on she is comfortable. Minimal cough. No sputum. She is aware she has a rash but, she denies pruritus. Objective Data Objective Data Vital Signs: Vital Signs Temp Pulse Resp BP Pulse Ox O2 Del Method O2 Flow Rate 98.0 F 111 H 20 H 128/73 H 94 Venturi Mask 8 09/07/21 05:13 09/07/21 07:10 09/07/21 07:10 09/07/21 05:22 09/07/21 07:10 09/07/21 09:37 09/07/21 07:10 FiO2 35 09/07/21 09:37 Oxygen Flow Rate (L/min) 8 Oxygen Delivery Method Venturi Mask Weight: 198 lb 6.4 oz Body Mass Index (BMI) 38.9 Intake & Output: Intake and Output for Last 24 Hours 09/05/21 09/06/21 09/07/21 23:59 23:59 23:59 Intake Total 685 / 685 930 / 930 120 / 120 Output Total 1100 / 1100 2350 / 2350 900 / 900 Balance -415 / -415 -1420 / -1420 -780 / -780 Lab / Micro Data Result Diagrams: 09/06/21 05:30 09/07/21 05:12 Labs: Laboratory Results - last 24 hr 09/06/21 10:00: Lactic Acid 1.7 09/06/21 10:00: Albumin 2.3 L 09/06/21 10:00: Iron 36 L, TIBC 267, Iron Saturation 13.5 L, Ferritin 138 09/06/21 10:00: Vitamin B12 1203 H, Vitamin D 25-Hydroxy 54.1 09/06/21 10:00: Folate 40.60 09/06/21 10:15: MRSA (PCR) Negative 09/07/21 05:12: Sodium 143, Potassium 4.3, Chloride 109 H, Carbon Dioxide 28.0, BUN 60 H, Creatinine 1.73 H, Estim Creat Clear Calc 34.39, Est GFR (MDRD) Af Amer 36 L, Est GFR (MDRD) Non-Af 30 L, BUN/Creatinine Ratio 34.7 H, Glucose 125 H, Calcium 9.0, Phosphorus 4.1, Albumin 2.2 L Micro: Microbiology 09/06/21 10:27 Mucosa - Nose Respiratory Panel (PCR) - Final 09/06/21 10:15 Nasal Secretion SARS-CoV-2 Antigen (Rapid) - Final Physical Exam Const alert and oriented x3 Constitutional Narrative: She looks less exhausted than yesterday and over all looks a little better today. General Appearance: cooperative HEENT Mouth: dry mucous membranes Eyes PERRL and EOMs intact bilaterally Neck supple General: trachea midline Resp Resp Narrative: Not tachypneic with the venti mask on. No conversational dyspnea with the mask on. Crackles in all lobes posteriorly but the aegophony in the right base has resolved and there is better air exchange in the right base. Mild increase in breath sounds in the left base and crackles. No crackles anteriorly today. She has some inspiratory squeaks but no expiratory wheezing at this time. Effort and Inspection: Negative for respiratory distress Cardio Cardio Narrative: irreg irreg but less tachycardic today. Less JVD. GI normal to inspection, nondistended, normoactive bowel sounds, soft to palpation and non-tender Extremity Extremity Narrative: The edema is less today. The thighs are soft with mild posterior edema and there is no pitting in the flanks today. No significant ankle edema but, there is still some pitting in the posterior calves. Skin Skin Narrative: Intertrigo in the groin and beneath the breasts. She has a maculopapular rash on the abd but, she denies pruritus. Neuro CN's II-XII intact bilaterally and no focal motor deficits Psych thought process normal, cooperative and affect normal Appearance: appropriate Assessment & Plan Assessment/Plan (1) Hypercalcemia: PLAN: The Calcium supplement is being held. (2) Heme + stool: (3) Acute respiratory failure with hypoxemia: PLAN: due to combined acute systolic CHF and HAP. (4) Hospital acquired PNA: PLAN: W/U in progress. (5) Acute on chronic systolic CHF (congestive heart failure): PLAN: Being diuresed. Continue IV Lasix for now. Weight is down 9 pounds since 09/03/2021. (6) Iron deficiency anemia: PLAN: Start IV iron supplementation. (7) Atrial fibrillation: PLAN: Amiodarone added yesterday for better rate control. BP is good and the rate is still high so will increase the Metoprolol to 25 mg Q8H and continue to monitor BP and HR. (8) Infected seroma due to and not concurrent with procedure: PLAN: Continue Invanz (9) Intertrigo: PLAN: give 4 days of Diflucan as the outbreak is widespread and not adequately controlled with Nystatin powder. (10) Allergic dermatitis: PLAN: Check a CBC with diff and look at eos. Have been normal. Allergiv to VAnco? Continue for now. PLAN: Plan Notify Dr. Delacruz of the development of pneumonia over the weekend. Check a CBC with diff, BMP, BNP today. If she tolerates the 1`00 mg of Venofer today will order 3 more doses and then restart oral iron. Will need to give the oral iron with Vitamin C to improve the GI absorption. Charges/Coding Visit Charges Inpatient E&M: 84467 [facility] Subs L3
--- NOTE | 2021-09-07 10:30 | NURSING ---
Upon assessment pt noted to have rash to abdomen and redness/excoriation in groin and under ariadne breasts. Pt denies itchiness but it is tender, nystatin powder is being applied. Dr. Rivers updated on new abdominal rash and continued excoriation.
[2021-09-07 10:44] LABS: Absolute Lymphocyte Count 0.92 X10^3/uL (0.83-4.51); Absolute Neutrophil Count 7.4 X10^3/uL (2.0-7.7); Basophil# 0.14 X10^3/uL; Basophil% 1.4 % (0-1); Eosinophils% 4.1 % (0-5); Hemoglobin 9.7 g/dL (12.0-15.0); Lymphocyte # 0.92 X10^3/ul (0.83-4.51); Lymphocyte % 9.4 % (19-41); Mean Corp Hgb Conc 30.3 g/dL (32-36); Mean Corpuscular Hgb 30.9 pg (27.0-32.0); Mean Corpuscular Volume 101.9 fL (81-99); Mean Platelet Vol. 10.2 fl (6.2-12.0); Monocyte# 0.87 X10^3/uL; Monocyte% 8.9 % (0-10); NRBC Flagged by Analyzer 0 % (0-5); Neutrophil # 7.41 X10^3/uL (2.7-7.7); Neutrophil % 75.7 % (47-70); POSITIVE MORPHOLOGY YES; Platelet Count 267 K/mm3 (150-450); RBC Distribution Width CV 22.5 % (11.6-14.6); RBC Distribution Width SD 81.5 fl (35.1-43.9); Red Blood Count 3.14 M/mm3 (4.2-5.4); White Blood Count 9.8 K/mm3 (4.4-11.0)
[2021-09-07 10:58] LABS: Differential Indicated SCAN CRITERIA MET
[2021-09-07 11:05] LABS: Anion Gap 10 (5-15); BUN 60 mg/dL (7-18); BUN/Creat Ratio 35.9 RATIO (10-20); Calcium,Total 9.1 mg/dL (8.5-10.1); Chloride 107 mmol/L (98-107); Creatinine, Serum 1.67 mg/dL (0.55-1.02); EST Glomerular Filtration Rate 31 mL/min (>60); Est Glom Filt Rate - Afr Amer 38 mL/min (>60); Estimated Creatinine Clearance 35.63 ml/min; Glucose 169 mg/dL (74-106); Potassium 4.3 mmol/L (3.5-5.1); Sodium Level 145 mmol/L (136-145)
[2021-09-07 11:06] LABS: BNP,B-Type NATRIURETIC PEPTIDE 1338.8 pg/mL (0-100)
[2021-09-07] MEDS: Fluconazole 100 MG Tablet 200 MG PO (11:20)
[2021-09-07 11:22] LABS: Anisocytosis 2+; Platelet Estimate ADEQUATE (ADEQ); Red Cell Morphology N CHROM NORMAL (NORM C&C)
[2021-09-07] MEDS: Sodium Ferric Gluconat 125 MG in 0.9% Normal Saline 100 ML 110 MG IV (11:42)
--- NOTE | 2021-09-07 11:58 | NURSING ---
Urine prelim back at this time, Dr. Rivers aware. N.N.O
--- NOTE | 2021-09-07 12:53 | PN.RENAL_ITS ---
Subjective Subjective feels ok no new complaints tolerating po Objective Data Objective Data Vital Signs: Vital Signs Temp Pulse Resp BP Pulse Ox O2 Del Method O2 Flow Rate 98.0 F 92 20 H 126/63 H 94 Venturi Mask 8 09/07/21 05:13 09/07/21 10:54 09/07/21 07:10 09/07/21 10:54 09/07/21 07:10 09/07/21 09:37 09/07/21 12:25 FiO2 35 09/07/21 09:37 Oxygen Flow Rate (L/min) 8 Oxygen Delivery Method Venturi Mask Weight: 89.993 kg Body Mass Index (BMI) 38.9 Intake & Output: Intake and Output for Last 24 Hours 09/05/21 09/06/21 09/07/21 23:59 23:59 23:59 Intake Total 685 / 685 930 / 930 440 / 440 Output Total 1100 / 1100 2350 / 2350 900 / 900 Balance -415 / -415 -1420 / -1420 -460 / -460 Lab / Micro Data Result Diagrams: 09/07/21 10:28 09/07/21 10:28 Labs: Laboratory Results - last 24 hr 09/06/21 10:00: Vitamin B12 1203 H, Vitamin D 25-Hydroxy 54.1 09/06/21 10:00: Folate 40.60 09/07/21 05:12: Sodium 143, Potassium 4.3, Chloride 109 H, Carbon Dioxide 28.0, BUN 60 H, Creatinine 1.73 H, Estim Creat Clear Calc 34.39, Est GFR (MDRD) Af Amer 36 L, Est GFR (MDRD) Non-Af 30 L, BUN/Creatinine Ratio 34.7 H, Glucose 125 H, Calcium 9.0, Phosphorus 4.1, Albumin 2.2 L 09/07/21 10:28: WBC 9.8, RBC 3.14 L, Hgb 9.7 L, Hct 32.0 L, MCV 101.9 H, MCH 30.9, MCHC 30.3 L, RDW Std Deviation 81.5 H, RDW Coeff of Leatha 22.5 H, Plt Count 267, MPV 10.2, Immature Gran % (Auto) 0.500, Neut % (Auto) 75.7 H, Lymph % (Auto) 9.4 L, [place] % (Auto) 8.9, Eos % (Auto) 4.1, Baso % (Auto) 1.4 H, Absolute Neuts (auto) 7.4, Absolute Lymphs (auto) 0.92, Nucleated RBC % 0, Platelet Estimate ADEQUATE, RBC Morphology N CHROM, Anisocytosis 2+ 09/07/21 10:28: Sodium 145, Potassium 4.3, Chloride 107, Carbon Dioxide 28.0, Anion Gap 10, BUN 60 H, Creatinine 1.67 H, Estim Creat Clear Calc 35.63, Est GFR (MDRD) Af Amer 38 L, Est GFR (MDRD) Non-Af 31 L, BUN/Creatinine Ratio 35.9 H, Glucose 169 H, Calcium 9.1 09/07/21 10:28: B-Natriuretic Peptide 1338.8 H Micro: Microbiology 09/06/21 12:30 Urine Catheter - Fuentes Urine Culture - Preliminary Gram positive organism 09/06/21 10:27 Mucosa - Nose Respiratory Panel (PCR) - Final 09/06/21 10:15 Nasal Secretion SARS-CoV-2 Antigen (Rapid) - Final Physical Exam Narrative alert, no acute distress s1s2 regular b/s equal abdomen non tender trace edema +fuentes, light urine Assessment & Plan Assessment/Plan (1) Acute kidney injury: (2) Chronic kidney disease, stage 3b: (3) Left hip prosthetic joint infection: (4) HFrEF (heart failure with reduced ejection fraction): PLAN: Plan - Nonoliguric EL on CKD;? EL secondary to prolonged effective blood volume depletion likely has progressed now to ATN.? Creatinine 1.7 mg/dL on admission, creatinine peaked at 4.00 mg/dL on 08/27 and continues to have improvement in renal function daily, creatinine is 1.89mg/dL.? Renal US did not show any hydronephrosis. UA negative for blood, protein 15. ? Patient is non-oliguric, no significant uremic symptoms.? Urine output has picked up.? Potassium and bicarb acceptable. At this time there is no acute indication for [employer].? Recommend strict I&O.? Recommend avoiding nephrotoxic agents. -last CXR showed mild degree of CHF, we decreased IVF rate on 08/27, and stopped IV fluids altogether on 08/28.? Patient is on O2 2 L nasal cannula and at times on room air.? Encouraged patient to be sitting up in chair during the day and for all meals.? -Patient has poor solute and fluid intake, encouraged patient to increase solute and fluid intake.? Continue Ensure as ordered.? - History for heart failure with reduced EF,?estimated ejection fraction of 40 to 45%.? She had been on furosemide 20 mg IV twice daily since admission but this was stopped last Tuesday due to rising Creatinine. Off IVF as of 08/28.? Restarted back on Lasix 20 mg p.o. twice daily 08/29. Now on lasix 40mg am and pm dose 20mg daily; will continue this regimen for now. Though patient has edema, this may also be third spacing.? Her albumin is 2.0.? Patient has had very poor oral intake but is now improving. - left hip infection and had been receiving vancomycin.? Her Vanco trough and random Vanco levels were slightly elevated.? Off Vanco and currently on ertapenem for antibiotic coverage. ID following - metabolic acidosis likely from EL and diarrhea. Bicarb now normal - Patient has CKD stage III/IV with risk factors including hypertension, coronary artery disease and heart failure.? Suspect chronic fluctuating c reatinine levels from cardiorenal syndrome physiology.? Baseline serum creatinine ranging around 1.7 to 2 mg/dL.? - Patient did have a stool positive for occult blood, seen by GI. Upper GI with findings of bleeding esophageal ulcer which was treated with heater probe and biopsied, also has small hiatal hernia and gastritis which was biopsied.? Patient is on PPI. 09/07 -overall renal function stable -mild hyponatremia, encourage increase water intake -calcium ok -can continue with lasix as renal function tolerates thanks, please call [phone] with any concerns
--- NOTE | 2021-09-07 13:09 | PCM.PN.ID ---
Physical Exam Narrative Breathing a little better, no sputum, no fever Const alert General Appearance: cooperative Resp Auscultation: rales and diminished lung sounds Cardio regular rate and regular rhythm GI soft to palpation, non-tender and non-distended Skin Skin Narrative: some rash on abd ID ID: Route of nutrition/ use of supplements: [] Nutritional Intake: [] IV Site: [] Hudson Catheter: [] Assessment & Plan Assessment/Plan (1) Left hip prosthetic joint infection: PLAN: s/p OR 08/20/[address] Nettles for I&D and revision of L hip.? One surg cx with proteus and bacteroides.? Now course complicated by worsening EL. 08/24 changed abx to ceftriaxone.? Neph consulted.? Plan on 6 weeks iv ertapenem, stop date 10/01/21.? Had rash with ceftriaxone. Now with hypoxia, vanc added, covid and resp pcr panel neg. O2 slowly improving. Not clear if infectious or cardiac in origin. Will follow.
--- NOTE | 2021-09-07 15:33 | WOUNDNOTE ---
wound photo: left hip
--- NOTE | 2021-09-07 15:33 | WOUNDNOTE ---
wound photo: left inner thigh
--- NOTE | 2021-09-07 15:35 | WOUNDNOTE ---
Removed the wound VAC dressing. there was no drainage noted in the canister. no drainage noted under the dressing. removed all the sutures as ordered. cleansed the hip incision with soap and water. pat dry. applied a dry dressing and secured with medipore tape. pt tolerated well. see wound photo.
--- NOTE | 2021-09-07 16:07 | PHA.CONS_ITS ---
TCU RX Drug Regimen Review Subjective: TCU Admission. 86 YOF admitted to the hospital for infected left hip wound. Hospitalization complicated by EL, CHF, anemia secondary to esophageal ulcer and gastritis. Admitted to TCU with debility for strengthening, rehabilitation and IV antibiotics. Objective: Allergies ceftriaxone [From Rocephin] Allergy (Intermediate, Verified 08/26/21 14:44) Rash after 2nd iv dose 08/25 atorvastatin [From Lipitor] Adverse Reaction (Verified 08/18/21 15:02) Pain in joints niacin Adverse Reaction (Verified 08/18/21 15:02) Pain in joints pregabalin [From Lyrica] Adverse Reaction (Verified 08/18/21 15:02) leg pain simvastatin [From Zocor] Adverse Reaction (Verified 08/18/21 15:02) Pain in joints Current Medications Generic Name Dose Route Start Last Admin Trade Name Freq PRN Reason Stop Dose Admin Acetaminophen 1,000 mg 09/03/21 22:06 09/04/21 13:31 Acetaminophen 500 Mg Tablet PO 1,000 mg Q6H PRN PRN Administration Pain Score 1-5 Albuterol Sulfate 2.5 mg 09/06/21 10:01 09/06/21 11:42 Albuterol 2.5 Mg/3 Ml Vial.Neb. INHALATION 2.5 mg Q2H PRN PRN Administration WHEEZING Albuterol Sulfate 2.5 mg 09/06/21 17:30 09/07/21 15:00 Albuterol 2.5 Mg/3 Ml Vial.Neb. INHALATION 2.5 mg Q4H.RT SUSAN Administration Apixaban 2.5 mg 09/03/21 18:00 09/07/21 05:20 Apixaban 2.5 Mg Tablet PO 2.5 mg BID SUSAN Administration Ascorbic Acid 500 mg 09/03/21 17:00 09/07/21 08:31 Ascorbic Acid 500 Mg Tablet PO 500 mg BIDCM SUSAN Administration Bisacodyl 10 mg 09/03/21 16:11 Bisacodyl 10 Mg Suppository RC X1 PRN Constipation Calamine/Phenol 1 applic 09/06/21 18:00 09/07/21 05:20 Menthol/Lanolin/Calamine/Znox 113 Gm Tube TOPICAL 1 applic BID SUSAN Administration Protocol Cholecalciferol 25 mcg 09/04/21 08:00 09/07/21 08:31 Cholecalciferol (Vit D3) 25 Mcg Tablet (1,000 Units) PO 25 mcg 0800 SUSAN Administration Clopidogrel Bisulfate 75 mg 09/04/21 06:00 09/07/21 05:20 Clopidogrel Bisulfate 75 Mg Tablet PO 75 mg DAILY SUSAN Administration Ferrous Sulfate 325 mg 09/03/21 17:00 09/06/21 09:07 Ferrous Sulfate 325 Mg Tablet PO 325 mg BIDCM SUSAN Administration Fluconazole 100 mg 09/08/21 06:00 Fluconazole 100 Mg Tablet PO 09/11/21 06:01 DAILY SUSAN Furosemide 40 mg 09/06/21 11:00 09/07/21 05:19 Furosemide 40 Mg/4 Ml Vial IV 40 mg DAILY SUSAN Administration Gabapentin 300 mg 09/03/21 22:00 09/07/21 13:37 Gabapentin 300 Mg Capsule PO 300 mg TID SUSAN Administration Guaifenesin 600 mg 09/06/21 18:00 09/07/21 05:22 Guaifenesin 600 Mg Tablet PO 600 mg BID SUSAN Administration Ertapenem 0.5 gm/ Sodium 55 mls @ 100 mls/hr 09/04/21 10:00 09/07/21 11:34 Chloride IV 10/07/21 10:01 Infused Q24 SUSAN Infusion Vancomycin IV-PHARMACY TO DOSE 500 mls @ 250 mls/hr 09/06/21 09:57 1 each/ Sodium Chloride IV PRN PRN Rx to Dose Protocol Vancomycin HCl 750 mg/ Sodium 265 mls @ 250 mls/hr 09/07/21 10:00 09/07/21 11:34 Chloride IV Infused Q24H SUSAN Infusion Levothyroxine Sodium 125 mcg 09/04/21 06:00 09/07/21 05:27 Levothyroxine 125 Mcg Tablet PO 125 mcg 0600 SUSAN Administration Metoprolol Tartrate 25 mg 09/07/21 10:30 09/07/21 10:54 Metoprolol Tartrate 25 Mg Tablet PO 25 mg Q8H SUSAN Administration Multivitamins/Minerals 1 tablet 09/04/21 08:00 09/07/21 08:31 Multivitamins,Ther W-Minerals Tablet PO 1 tablet BREAKFAST SUSAN Administration Nitroglycerin 0.4 mg 09/03/21 16:17 Nitroglycerin (Inpatient Use) 0.4 Mg Tab.Subl SL Q5M PRN CARDIAC/CHEST PAIN Nystatin 1 applic 09/05/21 18:00 09/07/21 05:22 Nystatin Powder 15gm Bottle TOPICAL 1 applic BID SUSAN Administration Protocol Oxycodone HCl 5 mg 09/03/21 22:06 Oxycodone 5 Mg Tablet PO Q4H PRN PRN Pain Score 6-10 Pantoprazole Sodium 40 mg 09/03/21 18:00 09/07/21 05:20 Pantoprazole Sodium 40 Mg Tablet PO 40 mg BID SUSAN Administration Psyllium Hydrophilic Mucilloid 1 packet 09/04/21 06:00 09/07/21 05:54 Psyllium 1 Packet PO 1 packet DAILY SUSAN Administration Senna/Docusate Sodium 2 tablet 09/03/21 18:00 09/07/21 05:22 Senna/Docusate Sodium 1 Tablet PO 2 tablet BID SUSAN Administration Sodium Chloride 2 spray 09/03/21 15:45 09/06/21 09:14 Sodium Chloride 0.65% 1 [place].Btl NASAL 2 spray TID PRN PRN Administration NASAL DRYNESS Sodium Chloride 250 ml 09/04/21 10:27 09/04/21 10:42 0.9% Normal Saline 250 Ml Iv.Soln. IV 250 ml DAILY PRN Administration IV antibiotic flush Sodium Chloride 10 - 40 ml 09/04/21 10:46 09/07/21 09:25 0.9% Saline Lock 10 Ml Syringe IV 10 ml UD PRN Administration SALINE FLUSH Tuberculin PPD 0.1 ml 09/11/21 10:00 Tuberculin,Purif.Prot.Deriv. 50 Tu/Ml Vial ID 09/11/21 10:01 X1 ONE Problem List (Last Reviewed 09/03/21 @ 17:[address] Dave Livingston MD) Allergic dermatitis (Suspected) Intertrigo (Acute) Hypercalcemia (Acute) Heme + stool (Acute) Acute respiratory failure with hypoxemia (Acute) Hospital acquired PNA (Acute) Acute on chronic systolic CHF (congestive heart failure) (Chronic) Iron deficiency anemia (Acute) Sciatica (Acute) Atrial fibrillation (Acute) Gastroesophageal reflux disease (Acute) Hypothyroidism (Acute) Chronic kidney disease, stage 3b (Acute) Pulmonary hypertension (Acute) Coronary artery disease (Acute) Acute kidney injury (Acute) Infected seroma due to and not concurrent with procedure (Acute) Debility (Acute) Gastritis (Acute) Esophageal ulcer (Acute) Left hip prosthetic joint infection (Acute) HFrEF (heart failure with reduced ejection fraction) (Acute) Vital Signs Temp Pulse Resp BP Pulse Ox O2 Del Method O2 Flow Rate 97.5 F L 105 H 20 H 124/70 H 96 Venturi Mask 8 09/07/21 13:55 09/07/21 15:00 09/07/21 15:00 09/07/21 13:55 09/07/21 13:55 09/07/21 13:55 09/07/21 13:55 FiO2 35 09/07/21 09:37 Oxygen Flow Rate (L/min) 8 Oxygen Delivery Method Venturi Mask Weight: 89.993 kg Body Mass Index (BMI) 38.9 Sodium 145 mmol/L (136-145) 09/07/21 10:28 Potassium 4.3 mmol/L (3.5-5.1) 09/07/21 10:28 Chloride 107 mmol/L (98-107) 09/07/21 10:28 Carbon Dioxide 28.0 mmol/L (21.0-32.0) 09/07/21 10:28 Anion Gap 10 (5-15) 09/07/21 10:28 BUN 60 mg/dL (7-18) H 09/07/21 10:28 Creatinine 1.67 mg/dL (0.55-1.02) H 09/07/21 10:28 Est GFR (MDRD) Af Amer 38 mL/min (>60) L 09/07/21 10:28 Est GFR (MDRD) Non-Af 31 mL/min (>60) L 09/07/21 10:28 BUN/Creatinine Ratio 35.9 RATIO (10-20) H 09/07/21 10:28 Glucose 169 mg/dL (74-106) H 09/07/21 10:28 Assessment/Plan: 1. Pain: acetaminophen 1000mg PO Q6H PRN pain 1-5 and oxycodone 5mg PO Q4H PRN pain 6-10. Resident has received 1 dose of acetaminophen for pain score of 5 in the hip but has not required oxycodone. Please continue to monitor for increased pain and PRN usage. 2. Bowel: senna/docusate 2T PO BID, psyllium 1 packet PO daily and bisacodyl 10mg RC x1 PRN constipation. Resident has not required a dose of bisacodyl. Last documented bowel movement was 7/24. Resident has refused a few doses of psyllium and senna/docusate due to diarrhea. Please continue to monitor for constipation, diarrhea and PRN usage. 3. Left prosthetic hip infection: ertapenem 0.5gm IV daily thru 10/07/21. Adjusted for renal function (CrCl 25 mL/min using adjusted BW). Infectious disease is seeing patient. Please continue to monitor for S/S of infection, renal function and diarrhea. 4. Atrial fibrillation/CAD s/p CABG and stent/CHF: metoprolol tartrate 25mg PO Q8, apixaban 2.5mg PO BID, furosemide 40mg IV daily, clopidogrel 75mg PO daily and nitroglycerin 0.4mg SL Q5M PRN chest pain. Please continue to monitor BP (last 124/70), HR (last 105), S/S of bleeding, hemoglobin (last 9.7g/dL), sodium (last 145mmol/L), potassium (last 4.3mmol/L), renal function and chest pain. Eliquis is appropriate for renal function and age. Resident has not required a dose of nitroglycerin. 5. Bibasilar pneumonia: vancomycin 750mg IV Q24H pharmacy to dose, guaifenesin 600mg PO BID, albuterol 2.5mg nebulized solution Q4H and Q2H PRN wheezing. Pharmacy will continue to monitor trough and renal function. Please continue to monitor blood cultures, renal function, diarrhea, HR and wheezing. Resident has received 1 dose of PRN albuterol. 6. UTI (urine culture growing yeast like organism): fluconazole 200mg x1 then 100mg thru 09/08/21. Please continue to monitor urine culture and renal function. 7. Iron deficiency anemia: ferrous sulfate 325mg PO BIDCM and vitamin C 500mg PO BID. Please continue to monitor hemoglobin (last 9.7g/dL), constipation and dark stools. 8. Hypothyroidism: levothyroxine 125mcg PO daily. Please continue to monitor TSH (last 08/19/21) and for S/S of hypo/hyperthyroidism. 9. GERD: pantoprazole 40mg PO daily. Please continue to monitor for S/S of GERD and diarrhea. 10. Dry nose: sodium chloride nasal spray 2sprays TID PRN nasal dryness. Please continue to monitor for nasal dryness and PRN usage. Resident has received 1 dose. 11. Nutrition/calcium and vitamin D deficiencies: multivitamin with minerals 1T PO DAILYCM, calcium 500mg PO BIDCM and cholecalciferol 25mcg PO daily. Please continue to monitor calcium (last 9.1mg/dL) and vitamin D (last 09/06/21). Assessment/Plan for indications treated with psychotropic medications: 1. Neuropathic pain: gabapentin 300mg PO TID. Based on CrCl of 25 mL/min, recommended dose of gabapentin is 200 - 700mg once daily. Please consider changing to 600mg PO daily if clinically appropriate. Thanks. Please continue to monitor for confusion and renal function. Medical chart and medication regimen reviewed. The following medication irregularities or issues were identified: *1. Gabapentin 300mg PO TID. Based on CrCl of 25 mL/min, recommended dose of gabapentin is 200 - 700mg once daily. Please consider changing to 600mg PO daily if clinically appropriate. Thanks. Date of Note:: 09/07/21
[2021-09-08] VITALS (7 sets, daily range): BP systolic 104–127; BP diastolic 54–63; PULSE 110–130; RESP 18–20; TEMP 37.1; O2SAT 93–96
--- NOTE | 2021-09-08 00:02 | NURSING ---
Per Allen, RT he placed pt on NC with O2 at 5L. At this time, pt is tolerating well, POX remains at 97%.
[2021-09-08] MEDS: Metoprolol Tartrate 25 MG Tablet PO ×3 (01:57→17:52)
[2021-09-08] MEDS: Pantoprazole Sodium 40 MG Tablet PO ×2 (05:48→17:51)
[2021-09-08] MEDS: Levothyroxine 125 MCG Tablet PO (05:48)
[2021-09-08] MEDS: guaiFENesin 600 MG Tablet PO ×2 (05:48→17:51)
[2021-09-08] MEDS: Clopidogrel Bisulfate 75 MG Tablet PO (05:48)
[2021-09-08] MEDS: Nystatin Powder 15gm Bottle 1 APPLIC TOPICAL ×2 (05:49→17:52)
[2021-09-08] MEDS: APIXABAN 2.5 MG TABLET PO ×2 (05:49→17:51)
[2021-09-08] MEDS: Fluconazole 100 MG Tablet PO (05:49)
[2021-09-08] MEDS: Furosemide 40 MG/4 ML Vial IV (05:50)
[2021-09-08] MEDS: Menthol/Lanolin/Calamine/Znox 113 GM Tube 1 APPLIC TOPICAL ×2 (05:50→17:52)
[2021-09-08] MEDS: 0.9% Saline Lock 10 ML Syringe IV ×3 (05:50→20:10)
[2021-09-08] MEDS: Cholecalciferol (VIT D3) 25 MCG TABLET (1,000 UNITS) PO (07:45)
[2021-09-08] MEDS: Multivitamins,Ther W-Minerals Tablet 1 TABLET PO (07:45)
[2021-09-08] MEDS: Gabapentin 300 MG Capsule PO ×3 (07:45→17:58)
[2021-09-08] MEDS: Ascorbic Acid 500 MG Tablet PO ×2 (07:45→17:51)
[2021-09-08] MEDS: Amiodarone 200 MG Tablet 400 MG PO (07:47)
[2021-09-08 10:10] LABS: Vancomycin, Trough Level 19.4 ug/mL (5.0-15.0)
--- NOTE | 2021-09-08 10:43 | PCM.RX.CS ---
Consult Pharmacy has been consulted to manage selected antiobiotic: Vancomycin Type of Consult: Follow-up Prior Doses of Antibiotics Received/Current Regimen: current dose is vanc 750mg IV q24h (1 dose given yesterday) and pt also got a dose of 1250mg x1 a couple days ago Labs: Sodium 145 mmol/L (136-145) 09/07/21 10:28 Potassium 4.3 mmol/L (3.5-5.1) 09/07/21 10:28 Chloride 107 mmol/L (98-107) 09/07/21 10:28 Carbon Dioxide 28.0 mmol/L (21.0-32.0) 09/07/21 10:28 Anion Gap 10 (5-15) 09/07/21 10:28 BUN 60 mg/dL (7-18) H 09/07/21 10:28 Creatinine 1.67 mg/dL (0.55-1.02) H 09/07/21 10:28 Est GFR (MDRD) Af Amer 38 mL/min (>60) L 09/07/21 10:28 Est GFR (MDRD) Non-Af 31 mL/min (>60) L 09/07/21 10:28 BUN/Creatinine Ratio 35.9 RATIO (10-20) H 09/07/21 10:28 Glucose 169 mg/dL (74-106) H 09/07/21 10:28 Vancomycin Trough 19.4 ug/mL (5.0-15.0) H 09/08/21 09:29 Microbiology: Microbiology 09/06/21 10:12 Blood Culture (Wb) - Right Hand Blood Culture - Preliminary No growth in 48 hours. 09/06/21 10:00 Blood Culture (Wb) - Right Forearm Blood Culture - Preliminary No growth in 48 hours. 09/06/21 12:30 Urine Catheter - [place] Urine Culture - Preliminary Yeast Like Organism 09/06/21 10:27 Mucosa - Nose Respiratory Panel (PCR) - Final 09/06/21 10:15 Nasal Secretion SARS-CoV-2 Antigen (Rapid) - Final Weight used for dosin kg Estimated Creatinine Clearance: 24.9ml/min Goal Trough: 10-15 mcg/mL Pharmacy Plan for Drug Dosing: The vanc trough drawn today at 09:29 (approx 24 hrs after the previous dose) was 19.4. This is above the goal range of 10-15 so will hold today's dose. Will draw a random level tomorrow morning with AM labs to determine if dosing should be resumed tomorrow. The patient's CrCl of 24.9ml/min was calculated using an adjusted body weight of 62.9kg. Pharmacy Service will continue to monitor and adjust dosing as required. Follow-Up Labs: Trough Vancomycin - random Labs to be done on [date and time ordered]: 09/09/21 0600
[2021-09-08] MEDS: Senna/Docusate Sodium 1 Tablet 2 TABLET PO (17:52)
[2021-09-08] MEDS: oxyCODONE 5 MG Tablet PO (20:08)
[2021-09-09] VITALS (7 sets, daily range): BP systolic 117–129; BP diastolic 52–56; PULSE 72–114; RESP 16–72; TEMP 36.9; O2SAT 95–97
[2021-09-09] MEDS: Metoprolol Tartrate 25 MG Tablet PO ×3 (02:49→18:12)
[2021-09-09 05:36] LABS: Absolute Lymphocyte Count 1.06 X10^3/uL (0.83-4.51); Absolute Neutrophil Count 9.3 X10^3/uL (2.0-7.7); Basophil# 0.18 X10^3/uL; Basophil% 1.5 % (0-1); Eosinophils% 4.9 % (0-5); Hematocrit 31.6 % (37-47); Hemoglobin 9.4 g/dL (12.0-15.0); Lymphocyte # 1.06 X10^3/ul (0.83-4.51); Lymphocyte % 8.6 % (19-41); Mean Corp Hgb Conc 29.7 g/dL (32-36); Mean Corpuscular Hgb 30.4 pg (27.0-32.0); Mean Corpuscular Volume 102.3 fL (81-99); Mean Platelet Vol. 10.3 fl (6.2-12.0); Monocyte# 1.09 X10^3/uL; Monocyte% 8.9 % (0-10); NRBC Flagged by Analyzer 0.2 % (0-5); Neutrophil % 75.8 % (47-70); POSITIVE MORPHOLOGY YES; Platelet Count 261 K/mm3 (150-450); RBC Distribution Width CV 22.1 % (11.6-14.6); RBC Distribution Width SD 82.3 fl (35.1-43.9); Red Blood Count 3.09 M/mm3 (4.2-5.4); White Blood Count 12.3 K/mm3 (4.4-11.0)
[2021-09-09 05:37] LABS: Differential Indicated SCAN CRITERIA MET
[2021-09-09 05:53] LABS: Anisocytosis 3+; Macrocytosis 1+
[2021-09-09 06:02] LABS: Anion Gap 4 (5-15); BUN 61 mg/dL (7-18); BUN/Creat Ratio 33.9 RATIO (10-20); Calcium,Total 9.1 mg/dL (8.5-10.1); Chloride 107 mmol/L (98-107); EST Glomerular Filtration Rate 28 mL/min (>60); Est Glom Filt Rate - Afr Amer 34 mL/min (>60); Glucose 121 mg/dL (74-106); Magnesium 1.9 mg/dL (1.6-2.6); Potassium 4.8 mmol/L (3.5-5.1); Sodium Level 141 mmol/L (136-145)
[2021-09-09 06:11] LABS: Vancomycin, Random Level 16.7 ug/mL (0.0-15.0)
[2021-09-09] MEDS: Furosemide 40 MG/4 ML Vial IV (06:13)
[2021-09-09] MEDS: 0.9% Saline Lock 10 ML Syringe IV ×2 (06:15→06:28)
[2021-09-09] MEDS: Clopidogrel Bisulfate 75 MG Tablet PO (06:16)
[2021-09-09] MEDS: APIXABAN 2.5 MG TABLET PO ×2 (06:16→18:11)
[2021-09-09] MEDS: Levothyroxine 125 MCG Tablet PO (06:16)
[2021-09-09] MEDS: Senna/Docusate Sodium 1 Tablet 2 TABLET PO (06:16)
[2021-09-09] MEDS: Fluconazole 100 MG Tablet PO (06:16)
[2021-09-09] MEDS: guaiFENesin 600 MG Tablet PO ×2 (06:16→18:11)
[2021-09-09] MEDS: Pantoprazole Sodium 40 MG Tablet PO ×2 (06:16→18:11)
[2021-09-09] MEDS: Menthol/Lanolin/Calamine/Znox 113 GM Tube 1 APPLIC TOPICAL ×2 (06:17→18:14)
[2021-09-09] MEDS: Nystatin Powder 15gm Bottle 1 APPLIC TOPICAL ×2 (06:17→18:14)
--- NOTE | 2021-09-09 06:29 | PHA.PHARE_ITS ---
Consult Pharmacy has been consulted to manage selected antiobiotic: Vancomycin Type of Consult: Follow-up Suspected Infection: Pneumonia Prior Doses of Antibiotics Received/Current Regimen: Medications Vancomycin HCl () 500 mg in 100 mls @ 100 mls/hr IV Q24H SUSAN Discontinued Medications Vancomycin HCl 750 mg/ Sodium (Chloride) 265 mls @ 250 mls/hr IV Q24H SUSAN Last Admin: 09/08/21 10:37 Dose: Not Given Labs: Sodium 141 mmol/L (136-145) 09/09/21 05:13 Potassium 4.8 mmol/L (3.5-5.1) 09/09/21 05:13 Chloride 107 mmol/L (98-107) 09/09/21 05:13 Carbon Dioxide 30.0 mmol/L (21.0-32.0) 09/09/21 05:13 Anion Gap 4 (5-15) L 09/09/21 05:13 BUN 61 mg/dL (7-18) H 09/09/21 05:13 Creatinine 1.80 mg/dL (0.55-1.02) H 09/09/21 05:13 Est GFR (MDRD) Af Amer 34 mL/min (>60) L 09/09/21 05:13 Est GFR (MDRD) Non-Af 28 mL/min (>60) L 09/09/21 05:13 BUN/Creatinine Ratio 33.9 RATIO (10-20) H 09/09/21 05:13 Glucose 121 mg/dL (74-106) H 09/09/21 05:13 Vancomycin Trough 19.4 ug/mL (5.0-15.0) H 09/08/21 09:29 Random Vancomycin 16.7 ug/mL (0.0-15.0) H 09/09/21 05:13 Microbiology: Microbiology 09/06/21 12:30 Urine Catheter - [place] Urine Culture - Final Presumptive C albicans 09/06/21 10:12 Blood Culture (Wb) - Right Hand Blood Culture - Preliminary No growth in 48 hours. 09/06/21 10:00 Blood Culture (Wb) - Right Forearm Blood Culture - Preliminary No growth in 48 hours. 09/06/21 10:27 Mucosa - Nose Respiratory Panel (PCR) - Final 09/06/21 10:15 Nasal Secretion SARS-CoV-2 Antigen (Rapid) - Final Weight used for dosin kg Estimated Creatinine Clearance: 33 Goal Trough: 10-15 mcg/mL Pharmacy Plan for Drug Dosing: Random vancomycin level was 16.7, still slightly above the target range of 10- 15. Per vanco dosing calculator, a new dose of 500mg q24h will give an estimated trough of 15 mg/dL. A trough will be drawn prior to third dose of this new regimen. Pharmacy Service will continue to monitor and adjust dosing as required. Follow-Up Labs: Trough Vancomycin Labs to be done on [date and time ordered]: 09/11/21 @9723
[2021-09-09] MEDS: Multivitamins,Ther W-Minerals Tablet 1 TABLET PO (08:04)
[2021-09-09] MEDS: Amiodarone 200 MG Tablet 400 MG PO (08:04)
[2021-09-09] MEDS: Ascorbic Acid 500 MG Tablet PO ×2 (08:04→18:12)
[2021-09-09] MEDS: Gabapentin 300 MG Capsule PO ×3 (08:04→18:11)
[2021-09-09] MEDS: Cholecalciferol (VIT D3) 25 MCG TABLET (1,000 UNITS) PO (08:05)
--- NOTE | 2021-09-09 09:54 | CASEMGMT ---
Social Work IDT met with patient, and dtr for care plan meeting. Discussed patient's progress in PT/OT/SN. Explained [employer] insurance with NRD 09/14 and continued stay is not guaranteed. Pt has IV ATB through 10/07, new on O2 and aerosols, IV Lasix. Discussed pt's poor appetite. Cable Worker Helper left written communication for Dr recommending appetite stimulant. Dieitican to add fortified foods. Pt has 4 steps to enter and lives with . However, pt is currently x2 assist. The goal is for pt to remain in TCU until IVs are completed and pt returns closer to PLOF where can assist at home. Offered family therapy training. Broached topic of having an alternative DC plan such as a SNF. Explained financial liability and Medicaid. Pt has a life insurance policy but is not over income or resources in other areas. Explained for or dtr to contact [employer] about shirley or face value, liquidation process, and being able to split the funds to pay for a home and care, etc. Provided SNF list that provides include quality and resource data that is consistent with the pt's preferred geographic region, medical needs and insurance networks. Encouraged dtr/ to get those answers and choose facilities by the end of next week as an alternative plan if pt cannot return home when insurance issues LCD. All parties expressed understanding and agreeable. SW to continue to follow for DC planning. Kriss Coates, ADJUSTO WRITER OPERATOR [employer]ILY [employer] JUSTICE
[2021-09-09] MEDS: Vancomycin IV 500 MG/100 ML BAG 100 MG IV (10:20)
--- NOTE | 2021-09-09 10:26 | NURSING ---
Patient daughter asked questions regarding patient status and Hudson catheter. Patient daughter updated in regards to Hudson. Will ask Dr. about when they are going to D/C or change catheter per dtr.
--- NOTE | 2021-09-09 13:40 | NURSING ---
Pt noted to have symptoms like red man syndrome following vancomycin administration. Relayed message to Dr. Delacruz's office in regards to this. Red rash noted all over back and spread to the front.
--- NOTE | 2021-09-09 13:46 | NURSING ---
Received phone call regarding patient's reaction to vancomycin. to come up to floor to dmitriy costa.
--- NOTE | 2021-09-09 14:47 | PCM.PN.ID ---
Physical Exam Narrative Rash on trunk, some itching. No fever, breathing better. Const alert and no apparent distress Resp clear to auscultation bilaterally Auscultation: diminished lung sounds Cardio regular rate and regular rhythm GI soft to palpation, non-tender and non-distended Skin Rashes: rashes noted ID ID: Route of nutrition/ use of supplements: [] Nutritional Intake: [] IV Site: [] [place] Catheter: [] Assessment & Plan Assessment/Plan (1) Left hip prosthetic joint infection: PLAN: s/p OR 08/20/[address] Nettles for I&D and revision of L hip.? One surg cx with proteus and bacteroides.? Now course complicated by worsening EL. 08/24 changed abx to ceftriaxone.? Neph consulted.? Plan on 6 weeks iv ertapenem, stop date 10/01/21.? Had rash with ceftriaxone. Developed hypoxia, vanc added, covid and resp pcr panel neg. O2 slowly improving. Not clear if infectious or cardiac in origin. Now with rash on trunk, will stop vanc and monitor. Will follow. D/w nursing
[2021-09-10] VITALS (7 sets, daily range): BP systolic 109–124; BP diastolic 53–62; PULSE 77–111; RESP 16–20; TEMP 36.3; O2SAT 95
[2021-09-10] MEDS: Metoprolol Tartrate 25 MG Tablet PO ×3 (03:22→17:55)
[2021-09-10] MEDS: 0.9% Saline Lock 10 ML Syringe IV ×2 (04:13→10:20)
[2021-09-10] MEDS: Fluconazole 100 MG Tablet PO (04:13)
[2021-09-10] MEDS: APIXABAN 2.5 MG TABLET PO ×2 (04:13→17:53)
[2021-09-10] MEDS: Levothyroxine 125 MCG Tablet PO (04:13)
[2021-09-10] MEDS: Clopidogrel Bisulfate 75 MG Tablet PO (04:13)
[2021-09-10] MEDS: Senna/Docusate Sodium 1 Tablet 2 TABLET PO (04:13)
[2021-09-10] MEDS: guaiFENesin 600 MG Tablet PO ×2 (04:13→17:53)
[2021-09-10] MEDS: Pantoprazole Sodium 40 MG Tablet PO ×2 (04:13→17:53)
[2021-09-10] MEDS: Furosemide 40 MG Tablet PO (04:14)
[2021-09-10] MEDS: Multivitamins,Ther W-Minerals Tablet 1 TABLET PO (08:07)
[2021-09-10] MEDS: Amiodarone 200 MG Tablet 400 MG PO (08:07)
[2021-09-10] MEDS: Ascorbic Acid 500 MG Tablet PO ×2 (08:07→17:53)
[2021-09-10] MEDS: Cholecalciferol (VIT D3) 25 MCG TABLET (1,000 UNITS) PO (08:08)
[2021-09-10] MEDS: Gabapentin 300 MG Capsule PO ×3 (08:11→17:52)
[2021-09-10] MEDS: Nystatin Powder 15gm Bottle 1 APPLIC TOPICAL ×2 (08:17→22:39)
[2021-09-10] MEDS: Menthol/Lanolin/Calamine/Znox 113 GM Tube 1 APPLIC TOPICAL (08:24)
[2021-09-10] MEDS: Acetaminophen 500 MG Tablet 1000 MG PO (10:14)
--- NOTE | 2021-09-10 10:23 | PCM.PN.ID ---
Physical Exam Narrative Feeling about the same. Still with rash, itching. Const alert and no apparent distress Resp Auscultation: diminished lung sounds Cardio regular rate and regular rhythm GI soft to palpation, non-tender and non-distended Extremity Extremity Narrative: rash on trunk ID ID: Route of nutrition/ use of supplements: [] Nutritional Intake: [] IV Site: [] [place] Catheter: [] Assessment & Plan Assessment/Plan (1) Left hip prosthetic joint infection: PLAN: s/p OR 08/20/[address] Nettles for I&D and revision of L hip.? One surg cx with proteus and bacteroides.? Now course complicated by worsening EL. 08/24 changed abx to ceftriaxone.? Neph consulted.? Plan on 6 weeks iv ertapenem, stop date 10/01/21.? Had rash with ceftriaxone. Developed hypoxia, vanc added, covid and resp pcr panel neg. O2 slowly improving. Not clear if infectious or cardiac in origin. Now with rash on trunk, stopped vanc, not improved this AM, will stop ertapenem and change to po cipro/flagyl. Will follow.
--- NOTE | 2021-09-10 12:23 | PN.RENAL_ITS ---
Subjective Subjective feels well other than rash appetite is ok Objective Data Objective Data Vital Signs: Vital Signs Temp Pulse Resp BP Pulse Ox O2 Del Method O2 Flow Rate 98.4 F 104 H 72 H 110/55 L 95 Room Air 4 09/09/21 14:00 09/10/21 10:37 09/09/21 14:00 09/10/21 10:37 09/09/21 14:00 09/09/21 14:00 09/09/21 17:17 FiO2 35 09/07/21 09:37 Oxygen Flow Rate (L/min) 4 Oxygen Delivery Method Room Air Weight: 89.04 kg Body Mass Index (BMI) 38.9 Intake & Output: Intake and Output for Last 24 Hours 09/08/21 09/09/21 09/10/21 23:59 23:59 23:59 Intake Total 775 / 775 635 / 635 470 / 470 Output Total 1000 / 1000 300 / 300 750 / 750 Balance -225 / -225 335 / 335 -280 / -280 Lab / Micro Data Attestation: I reviewed the patient's lab results. Result Diagrams: 09/09/21 05:13 09/09/21 05:13 Micro: Microbiology 09/10/21 04:18 Nasal Secretion SARS-CoV-2 Antigen (Rapid) - Final 09/06/21 12:30 Urine Catheter - [place] Urine Culture - Final Presumptive C albicans 09/06/21 10:12 Blood Culture (Wb) - Right Hand Blood Culture - Preliminary No growth in 48 hours. 09/06/21 10:00 Blood Culture (Wb) - Right Forearm Blood Culture - Preliminary No growth in 48 hours. 09/06/21 10:27 Mucosa - Nose Respiratory Panel (PCR) - Final 09/06/21 10:15 Nasal Secretion SARS-CoV-2 Antigen (Rapid) - Final Physical Exam Narrative awake, no acute distress eating lunch s1s2 regular b/s equal no significant edema fuentes present Assessment & Plan Assessment/Plan (1) Acute kidney injury: (2) Chronic kidney disease, stage 3b: (3) Left hip prosthetic joint infection: (4) HFrEF (heart failure with reduced ejection fraction): PLAN: Plan - Nonoliguric EL on CKD;? EL secondary to prolonged effective blood volume depletion likely has progressed now to ATN.? Creatinine 1.7 mg/dL on admission, creatinine peaked at 4.00 mg/dL on 7/14 and continues to have improvement in renal function daily, creatinine is 1.89mg/dL.? Renal US did not show any hydronephrosis. UA negative for blood, protein 15. ? Patient is non-oliguric, no significant uremic symptoms.? Urine output has picked up.? Potassium and bicarb acceptable. 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 Recommend strict I&O.? Recommend avoiding nephrotoxic agents. -last CXR showed mild degree of CHF, we decreased IVF rate on 08/27, and stopped IV fluids altogether on 08/28.? Patient is on O2 2 L nasal cannula and at times on room air.? Encouraged patient to be sitting up in chair during the day and for all meals.? -Patient has poor solute and fluid intake, encouraged patient to increase solute and fluid intake.? Continue Ensure as ordered.? - History for heart failure with reduced EF,?estimated ejection fraction of 40 to 45%.? She had been on furosemide 20 mg IV twice daily since admission but this was stopped last Tuesday due to rising Creatinine. Off IVF as of 08/28.? Restarted back on Lasix 20 mg p.o. twice daily 08/29. Now on lasix 40mg am and pm dose 20mg daily; will continue this regimen for now. Though patient has ed jaja, this may also be third spacing.? Her albumin is 2.0.? Patient has had very poor oral intake but is now improving. - left hip infection and had been receiving vancomycin.? Her Vanco trough and random Vanco levels were slightly elevated.? Off Vanco and currently on ertapenem for antibiotic coverage. ID following - metabolic acidosis likely from EL and diarrhea. Bicarb now normal - Patient has CKD stage III/IV with risk factors including hypertension, coronary artery disease and heart failure.? Suspect chronic fluctuating creatinine levels from cardiorenal syndrome physiology.? Baseline serum creatinine ranging around 1.7 to 2 mg/dL.? - Patient did have a stool positive for occult blood, seen by GI. Upper GI with findings of bleeding esophageal ulcer which was treated with heater probe and biopsied, also has small hiatal hernia and gastritis which was biopsied.? Patient is on PPI. 09/10 -scr slightly bumped -non olgiuric -bp ok -not significantly volume up -hold lasix for now thanks, please call [phone] with any concerns
[2021-09-10] MEDS: metroNIDAZOLE 500 MG Tablet PO ×2 (13:50→23:15)
--- NOTE | 2021-09-10 17:57 | NURSING ---
Received order from Dr. Livingston to cancel Cipro order.
[2021-09-10] MEDS: Albuterol 2.5 MG/3 ML VIAL.NEB. INHALATION (18:35)
--- NOTE | 2021-09-10 18:58 | NURSING ---
UPDATED DAUGHTER ON PT.
[2021-09-11] VITALS (8 sets, daily range): BP systolic 99–123; BP diastolic 43–66; PULSE 81–113; RESP 18; TEMP 35.8; O2SAT 95–98
[2021-09-11] MEDS: 0.9% Saline Lock 10 ML Syringe IV ×2 (02:36→17:53)
[2021-09-11 05:43] LABS: Absolute Lymphocyte Count 0.82 X10^3/uL (0.83-4.51); Basophil# 0.12 X10^3/uL; Basophil% 1.2 % (0-1); Eosinophils% 6.2 % (0-5); Hematocrit 29.7 % (37-47); Hemoglobin 8.9 g/dL (12.0-15.0); Lymphocyte # 0.82 X10^3/ul (0.83-4.51); Lymphocyte % 8.4 % (19-41); Mean Corpuscular Hgb 30.6 pg (27.0-32.0); Mean Corpuscular Volume 102.1 fL (81-99); Mean Platelet Vol. 10.6 fl (6.2-12.0); Monocyte% 11.3 % (0-10); NRBC Flagged by Analyzer 0 % (0-5); Neutrophil # 7.03 X10^3/uL (2.7-7.7); Neutrophil % 72.5 % (47-70); POSITIVE MORPHOLOGY YES; Platelet Count 224 K/mm3 (150-450); RBC Distribution Width CV 21.3 % (11.6-14.6); RBC Distribution Width SD 79.8 fl (35.1-43.9); Red Blood Count 2.91 M/mm3 (4.2-5.4); White Blood Count 9.7 K/mm3 (4.4-11.0)
[2021-09-11 06:01] LABS: Differential Indicated SCAN CRITERIA MET
[2021-09-11 06:02] LABS: Anion Gap 5 (5-15); BUN 64 mg/dL (7-18); BUN/Creat Ratio 34.6 RATIO (10-20); Chloride 103 mmol/L (98-107); Creatinine, Serum 1.85 mg/dL (0.55-1.02); EST Glomerular Filtration Rate 28 mL/min (>60); Est Glom Filt Rate - Afr Amer 33 mL/min (>60); Glucose 122 mg/dL (74-106); Potassium 4.7 mmol/L (3.5-5.1); Sodium Level 138 mmol/L (136-145)
[2021-09-11 06:04] LABS: Anisocytosis 2+; Macrocytosis 1+
[2021-09-11] MEDS: Nystatin Powder 15gm Bottle 1 APPLIC TOPICAL ×2 (06:23→17:54)
[2021-09-11] MEDS: metroNIDAZOLE 500 MG Tablet PO ×3 (06:24→20:39)
[2021-09-11] MEDS: guaiFENesin 600 MG Tablet PO ×2 (06:24→17:54)
[2021-09-11] MEDS: Fluconazole 100 MG Tablet PO (06:24)
[2021-09-11] MEDS: Clopidogrel Bisulfate 75 MG Tablet PO (06:24)
[2021-09-11] MEDS: APIXABAN 2.5 MG TABLET PO ×2 (06:24→17:54)
[2021-09-11] MEDS: Levothyroxine 125 MCG Tablet PO (06:25)
[2021-09-11] MEDS: Gabapentin 300 MG Capsule PO ×3 (08:30→18:00)
[2021-09-11] MEDS: Acetaminophen 500 MG Tablet 1000 MG PO ×2 (08:31→20:48)
[2021-09-11] MEDS: Pantoprazole Sodium 40 MG Tablet PO ×2 (08:31→17:55)
[2021-09-11] MEDS: Ascorbic Acid 500 MG Tablet PO ×2 (08:33→17:53)
[2021-09-11] MEDS: Cholecalciferol (VIT D3) 25 MCG TABLET (1,000 UNITS) PO (08:33)
[2021-09-11] MEDS: Multivitamins,Ther W-Minerals Tablet 1 TABLET PO (08:33)
[2021-09-11] MEDS: Amiodarone 200 MG Tablet 400 MG PO (08:33)
[2021-09-11] MEDS: BMX LIQUID 180 ML 15 ML PO (08:41)
[2021-09-11] MEDS: Tuberculin,Purif.prot.deriv. 50 TU/ML Vial 0.1 ML ID (10:38)
[2021-09-11] MEDS: Metoprolol Tartrate 25 MG Tablet PO ×2 (10:43→17:56)
[2021-09-11] MEDS: Hydrocortisone 2.5% Crm 1 APPLIC TOPICAL ×2 (10:58→23:06)
--- NOTE | 2021-09-11 14:30 | PCM.PN.ID ---
Physical Exam Narrative Sleeping, rash barely improved per nursing Const no apparent distress Resp normal air movement and clear to auscultation bilaterally Cardio regular rate and regular rhythm GI soft to palpation, non-tender and non-distended Skin Skin Narrative: slightly less red on trunk ID ID: Route of nutrition/ use of supplements: [] Nutritional Intake: [] IV Site: [] [place] Catheter: [] Assessment & Plan Assessment/Plan (1) Left hip prosthetic joint infection: PLAN: s/p OR 08/20/[address] Nettles for I&D and revision of L hip.? One surg cx with proteus and bacteroides.? Now course complicated by worsening EL. 08/24 changed abx to ceftriaxone.? Neph consulted.? Plan on 6 weeks iv ertapenem, stop date 10/01/21.? Had rash with ceftriaxone. Developed hypoxia, vanc added, covid and resp pcr panel neg. O2 slowly improving. Not clear if infectious or cardiac in origin. Now with rash on trunk, stopped vanc, not improved, so on 09/10 stopped ertapenem and changed to po cipro/flagyl. Will follow.
[2021-09-11] MEDS: Senna/Docusate Sodium 1 Tablet 2 TABLET PO (17:55)
--- NOTE | 2021-09-11 18:07 | NURSING ---
PT AND FAMILY UPDATED ON STAFF MEMBER TESTING POSITIVE FOR COVID.
[2021-09-11] MEDS: Menthol/Lanolin/Calamine/Znox 113 GM Tube 1 APPLIC TOPICAL (20:38)
[2021-09-12] MEDS: oxyCODONE 5 MG Tablet PO (01:28)
[2021-09-12 02:20] VITALS: BP 98/46; PULSE 89
[2021-09-12] MEDS: Senna/Docusate Sodium 1 Tablet 2 TABLET PO (05:38)
[2021-09-12] MEDS: Levothyroxine 125 MCG Tablet PO (05:38)
[2021-09-12] MEDS: APIXABAN 2.5 MG TABLET PO ×2 (05:38→17:24)
[2021-09-12] MEDS: guaiFENesin 600 MG Tablet PO ×2 (05:39→17:24)
[2021-09-12] MEDS: Clopidogrel Bisulfate 75 MG Tablet PO (05:39)
[2021-09-12] MEDS: Pantoprazole Sodium 40 MG Tablet PO ×2 (05:39→17:24)
[2021-09-12] MEDS: Menthol/Lanolin/Calamine/Znox 113 GM Tube 1 APPLIC TOPICAL ×2 (05:40→17:24)
[2021-09-12] MEDS: Nystatin Powder 15gm Bottle 1 APPLIC TOPICAL ×2 (05:40→17:25)
[2021-09-12] MEDS: 0.9% Saline Lock 10 ML Syringe IV ×2 (05:42→17:26)
[2021-09-12 06:46] VITALS: O2SAT 96
[2021-09-12] MEDS: Amiodarone 200 MG Tablet 400 MG PO (08:18)
[2021-09-12] MEDS: metroNIDAZOLE 500 MG Tablet PO ×3 (08:18→17:24)
[2021-09-12] MEDS: Ascorbic Acid 500 MG Tablet PO ×2 (08:18→17:24)
[2021-09-12] MEDS: Multivitamins,Ther W-Minerals Tablet 1 TABLET PO (08:18)
[2021-09-12] MEDS: Cholecalciferol (VIT D3) 25 MCG TABLET (1,000 UNITS) PO (08:19)
[2021-09-12] MEDS: Gabapentin 300 MG Capsule PO ×3 (08:21→17:24)
[2021-09-12 11:26] VITALS: BP 118/60; PULSE 94
[2021-09-12] MEDS: Metoprolol Tartrate 25 MG Tablet PO ×2 (11:26→17:26)
--- NOTE | 2021-09-12 13:04 | NURSING ---
Notified Dr. Livingston of pt request for Melatonin to help with sleep. Received order for Melatonin 3mg at [facility]
[2021-09-12 14:00] VITALS: BP 136/70; PULSE 90; RESP 16; TEMP 35.6; O2SAT 97
[2021-09-12 17:26] VITALS: PULSE 90
[2021-09-12] MEDS: MELATONIN 3 MG TABLET PO (21:29)
[2021-09-12 21:45] VITALS: O2SAT 98
[2021-09-13] VITALS (7 sets, daily range): BP systolic 110–133; BP diastolic 51–70; PULSE 93–108; RESP 18; TEMP 36.2; O2SAT 91–93
[2021-09-13] MEDS: Acetaminophen 500 MG Tablet 1000 MG PO ×2 (02:47→21:31)
[2021-09-13] MEDS: oxyCODONE 5 MG Tablet PO ×2 (02:47→21:31)
[2021-09-13] MEDS: Metoprolol Tartrate 25 MG Tablet PO ×3 (02:48→18:07)
[2021-09-13] MEDS: Nystatin Powder 15gm Bottle 1 APPLIC TOPICAL ×2 (05:28→18:04)
[2021-09-13] MEDS: Pantoprazole Sodium 40 MG Tablet PO ×2 (05:30→18:04)
[2021-09-13] MEDS: Clopidogrel Bisulfate 75 MG Tablet PO (05:30)
[2021-09-13] MEDS: guaiFENesin 600 MG Tablet PO ×2 (05:30→18:03)
[2021-09-13] MEDS: APIXABAN 2.5 MG TABLET PO ×2 (05:30→18:03)
[2021-09-13] MEDS: Levothyroxine 125 MCG Tablet PO (05:31)
[2021-09-13] MEDS: Menthol/Lanolin/Calamine/Znox 113 GM Tube 1 APPLIC TOPICAL ×2 (05:34→18:06)
[2021-09-13] MEDS: Gabapentin 300 MG Capsule PO ×3 (08:12→18:10)
[2021-09-13] MEDS: Multivitamins,Ther W-Minerals Tablet 1 TABLET PO (08:13)
[2021-09-13] MEDS: Ascorbic Acid 500 MG Tablet PO ×2 (08:13→18:03)
[2021-09-13] MEDS: metroNIDAZOLE 500 MG Tablet PO ×3 (08:13→18:05)
[2021-09-13] MEDS: Amiodarone 200 MG Tablet PO (08:13)
[2021-09-13] MEDS: Cholecalciferol (VIT D3) 25 MCG TABLET (1,000 UNITS) PO (08:14)
[2021-09-13] MEDS: MELATONIN 3 MG TABLET PO (21:31)
[2021-09-14] VITALS (7 sets, daily range): BP systolic 103–131; BP diastolic 41–68; PULSE 88–106; RESP 14; TEMP 36.6; O2SAT 95–97
[2021-09-14] MEDS: Menthol/Lanolin/Calamine/Znox 113 GM Tube 1 APPLIC TOPICAL ×3 (05:42→21:38)
[2021-09-14] MEDS: APIXABAN 2.5 MG TABLET PO ×2 (05:44→17:52)
[2021-09-14] MEDS: Clopidogrel Bisulfate 75 MG Tablet PO (05:44)
[2021-09-14] MEDS: Pantoprazole Sodium 40 MG Tablet PO ×2 (05:44→17:52)
[2021-09-14] MEDS: Nystatin Powder 15gm Bottle 1 APPLIC TOPICAL ×2 (05:44→21:38)
[2021-09-14] MEDS: guaiFENesin 600 MG Tablet PO ×2 (05:44→17:52)
[2021-09-14] MEDS: Levothyroxine 125 MCG Tablet PO (05:45)
--- NOTE | 2021-09-14 05:45 | NURSING ---
Hudson catheter dc'ed this am. Pt tolerated well. Will continue to monitor.
[2021-09-14 06:05] LABS: Anion Gap 5 (5-15); BUN 67 mg/dL (7-18); BUN/Creat Ratio 33.8 RATIO (10-20); Calcium,Total 9.1 mg/dL (8.5-10.1); Chloride 100 mmol/L (98-107); Creatinine, Serum 1.98 mg/dL (0.55-1.02); EST Glomerular Filtration Rate 26 mL/min (>60); Est Glom Filt Rate - Afr Amer 31 mL/min (>60); Estimated Creatinine Clearance 29.71 ml/min; Glucose 115 mg/dL (74-106); Potassium 5.2 mmol/L (3.5-5.1); Sodium Level 135 mmol/L (136-145)
[2021-09-14] MEDS: metroNIDAZOLE 500 MG Tablet PO ×3 (08:44→17:51)
[2021-09-14] MEDS: Gabapentin 300 MG Capsule PO ×3 (08:48→17:55)
[2021-09-14] MEDS: Ascorbic Acid 500 MG Tablet PO ×2 (08:48→17:50)
[2021-09-14] MEDS: Multivitamins,Ther W-Minerals Tablet 1 TABLET PO (08:48)
[2021-09-14] MEDS: Cholecalciferol (VIT D3) 25 MCG TABLET (1,000 UNITS) PO (08:49)
[2021-09-14] MEDS: Amiodarone 200 MG Tablet PO (08:51)
--- NOTE | 2021-09-14 10:07 | NURSING ---
IN TO SEE PT.
[2021-09-14] MEDS: Sodium Polystyrene Sulfonate 15 GM/60 ML UDC PO (10:09)
[2021-09-14] MEDS: Metoprolol Tartrate 25 MG Tablet PO ×2 (11:21→17:53)
--- NOTE | 2021-09-14 13:07 | PCM.PN.REN ---
Subjective Subjective Following for EL on CKD Sitting in chair, legs elevated. Denies any complaints. No nausea or diarrhea per patient. Objective Data Objective Data Vital Signs: Vital Signs Temp Pulse Resp BP Pulse Ox O2 Del Method O2 Flow Rate 97.2 F L 106 H 18 115/53 L 95 Nasal Cannula 2 09/13/21 14:00 09/14/21 11:21 09/13/21 14:00 09/14/21 11:21 09/14/21 06:01 09/14/21 07:04 09/14/21 12:13 FiO2 35 09/07/21 09:37 Oxygen Flow Rate (L/min) 2 Oxygen Delivery Method Nasal Cannula Weight: 88.995 kg Body Mass Index (BMI) 38.9 Intake & Output: Intake and Output for Last 24 Hours 09/12/21 09/13/21 09/14/21 23:59 23:59 23:59 Intake Total 420 / 420 480 / 480 480 / 480 Output Total 900 / 900 600 / 600 450 / 450 Balance -480 / -480 -120 / -120 Lab / Micro Data Result Diagrams: 09/11/21 05:08 09/14/21 05:13 Labs: Laboratory Results - last 24 hr 09/14/21 05:13: Sodium 135 L, Potassium 5.2 H, Chloride 100, Carbon Dioxide 30.0, Anion Gap 5, BUN 67 H, Creatinine 1.98 H, Estim Creat Clear Calc 29.71, Est GFR (MDRD) Af Amer 31 L, Est GFR (MDRD) Non-Af 26 L, BUN/Creatinine Ratio 33.8 H, Glucose 115 H, Calcium 9.1 Micro: Microbiology 09/06/21 10:00 Blood Culture (Wb) - Right Forearm Blood Culture - Final No growth in 5 days. 09/06/21 10:12 Blood Culture (Wb) - Right Hand Blood Culture - Final No growth in 5 days. 09/10/21 04:18 Nasal Secretion SARS-CoV-2 Antigen (Rapid) - Final 09/06/21 12:30 Urine Catheter - Hudson Urine Culture - Final Presumptive C albicans 09/06/21 10:27 Mucosa - Nose Respiratory Panel (PCR) - Final 09/06/21 10:15 Nasal Secretion SARS-CoV-2 Antigen (Rapid) - Final Physical Exam Narrative awake, no acute distress s1s2 regular lung sounds clear edema to b/l lower legs, per patient improved Assessment & Plan Assessment/Plan (1) Acute kidney injury: (2) Chronic kidney disease, stage 3b: (3) Left hip prosthetic joint infection: (4) HFrEF (heart failure with reduced ejection fraction): PLAN: Plan - Nonoliguric EL on CKD;? EL secondary to prolonged effective blood volume depletion likely has progressed now to ATN.? Creatinine 1.7 mg/dL on admission, creatinine peaked at 4.00 mg/dL on 08/27 and continues to have improvement in renal function daily, creatinine is 1.89mg/dL.? Renal US did not show any hydronephrosis. UA negative for blood, protein 15. ? Patient is non-oliguric, no significant uremic symptoms.? Urine output has picked up.? Potassium and bicarb acceptable. At this time there is no acute indication for ADMINISTRATIVE PROGRAM SPECIALIST.? Recommend strict I&O.? Recommend avoiding nephrotoxic agents. -last CXR showed mild degree of CHF, we decreased IVF rate on 08/27, and stopped IV fluids altogether on 08/28.? Patient is on O2 2 L nasal cannula and at times on room air.? Encouraged patient to be sitting up in chair during the day and for all meals.? -Patient has poor solute and fluid intake, encouraged patient to increase solute and fluid intake.? Continue Ensure as ordered.? - History for heart failure with reduced EF,?estimated ejection fraction of 40 to 45%.? She had been on furosemide 20 mg IV twice daily since admission but this was stopped due to rising Creatinine. Off IVF as of 08/28.? Restarted back on Lasix 20 mg p.o. twice daily 08/29. Now on lasix 40mg am and pm dose 20mg daily; will continue this regimen for now. Though patient has edema, this may also be third spacing.? Her albumin is 2.0.? Patient has had very poor oral intake but is now improving. - left hip infection and had been receiving vancomycin.? Her Vanco trough and random Vanco levels were slightly elevated.? Off Vanco and currently on ertapenem for antibiotic coverage. ID following - metabolic acidosis likely from EL and diarrhea. Bicarb now normal - Patient has CKD stage III/IV with risk factors including hypertension, coronary artery disease and heart failure.? Suspect chronic fluctuating creatinine levels from cardiorenal syndrome physiology.? Baseline serum creatinine ranging around 1.7 to 2 mg/dL.? - Patient did have a stool positive for occult blood, seen by GI. Upper GI with findings of bleeding esophageal ulcer which was treated with heater probe and biopsied, also has small hiatal hernia and gastritis which was biopsied.? Patient is on PPI. 09/14: -overall renal function stable and at baseline. Renal function has been near baseline since 09/04. -patient is non-oliguric -bp ok -lasix was stopped ~09/10. Expect to see slight fluctuations in SCr with history of HFrEF. Will restart back on lasix 40mg po daily. - K+ 5.2 and received 1dose SPS. Restarting back on lasix 40mg daily today. If potassium remains elevated can add low K+ diet restrictions. - will check labs later in the week
[2021-09-14] MEDS: Furosemide 40 MG Tablet PO (15:02)
[2021-09-14] MEDS: 0.9% Saline Lock 10 ML Syringe IV (15:04)
--- NOTE | 2021-09-14 15:40 | PCM.PN.ID ---
Physical Exam Narrative Rash worse. No fever. Const alert and no apparent distress Skin Skin Narrative: Diffuse redness on trunk, starting to peel ID ID: Route of nutrition/ use of supplements: [] Nutritional Intake: [] IV Site: [] Hudson Catheter: [] Assessment & Plan Assessment/Plan (1) Left hip prosthetic joint infection: PLAN: s/p OR 08/20/[address] Nettles for I&D and revision of L hip.? One surg cx with proteus and bacteroides.? Now course complicated by worsening EL. 08/24 changed abx to ceftriaxone.? Neph consulted.? Plan on 6 weeks iv ertapenem, stop date 10/01/21.? Had rash with ceftriaxone. Developed hypoxia, vanc added, covid and resp pcr panel neg. O2 slowly improving. Not clear if infectious or cardiac in origin. Now with rash on trunk, stopped vanc, not improved, so on 09/10 stopped ertapenem and changed to po cipro/flagyl. Rash still worsening, at this point think it has be something other than the antibiotics. Will follow.
[2021-09-14] MEDS: Senna/Docusate Sodium 1 Tablet 2 TABLET PO (17:52)
[2021-09-14] MEDS: Hydrocortisone 2.5% Crm 1 APPLIC TOPICAL (21:37)
[2021-09-14] MEDS: MELATONIN 3 MG TABLET PO (21:46)
[2021-09-14] MEDS: oxyCODONE 5 MG Tablet PO (21:58)
[2021-09-14] MEDS: Acetaminophen 500 MG Tablet 1000 MG PO (21:59)
[2021-09-15] VITALS (7 sets, daily range): BP systolic 98–118; BP diastolic 42–58; PULSE 95–106; RESP 16–18; TEMP 36.5; O2SAT 91–97
[2021-09-15] MEDS: 0.9% Saline Lock 10 ML Syringe IV ×3 (05:09→11:37)
[2021-09-15] MEDS: Clopidogrel Bisulfate 75 MG Tablet PO (05:10)
[2021-09-15] MEDS: Furosemide 40 MG Tablet PO (05:11)
[2021-09-15] MEDS: guaiFENesin 600 MG Tablet PO ×2 (05:11→18:15)
[2021-09-15] MEDS: Pantoprazole Sodium 40 MG Tablet PO ×2 (05:11→18:17)
[2021-09-15] MEDS: APIXABAN 2.5 MG TABLET PO ×2 (05:11→18:16)
[2021-09-15] MEDS: Levothyroxine 125 MCG Tablet PO (05:12)
[2021-09-15 06:00] LABS: Anion Gap 6 (5-15); BUN 68 mg/dL (7-18); Calcium,Total 8.9 mg/dL (8.5-10.1); Chloride 102 mmol/L (98-107); EST Glomerular Filtration Rate 25 mL/min (>60); Est Glom Filt Rate - Afr Amer 31 mL/min (>60); Estimated Creatinine Clearance 29.42 ml/min; Glucose 115 mg/dL (74-106); Potassium 4.9 mmol/L (3.5-5.1); Sodium Level 138 mmol/L (136-145)
[2021-09-15] MEDS: Ascorbic Acid 500 MG Tablet PO ×2 (08:28→18:17)
[2021-09-15] MEDS: Amiodarone 200 MG Tablet PO (08:28)
[2021-09-15] MEDS: Multivitamins,Ther W-Minerals Tablet 1 TABLET PO (08:28)
[2021-09-15] MEDS: Cholecalciferol (VIT D3) 25 MCG TABLET (1,000 UNITS) PO (08:28)
[2021-09-15] MEDS: Gabapentin 300 MG Capsule PO ×3 (08:31→18:20)
[2021-09-15] MEDS: metroNIDAZOLE 500 MG Tablet PO ×3 (08:35→18:18)
--- NOTE | 2021-09-15 10:31 | CASEMGMT ---
Social Work Continued stay approved by patient insurance with next update due on 09/24/21. This social media designer updated patient on above information. Patient voiced understanding. Patient request for this social media designer to notify patient daughter, Eloise about insurance continued stay approval. Telephone call to Eloise. No answer. Voicemail left with above information as voicemail message identified Eloise. Social Work to continue to follow. Paty ANTON, AQUILES-S
[2021-09-15] MEDS: Nystatin Powder 15gm Bottle 1 APPLIC TOPICAL ×2 (10:58→20:45)
[2021-09-15] MEDS: Metoprolol Tartrate 25 MG Tablet PO ×2 (11:05→18:18)
[2021-09-15] MEDS: COVID-19 VACC, MRNA(PFIZER)/PF 30 MCG/0.3 ML SYRINGE IM (11:45)
--- NOTE | 2021-09-15 11:57 | NURSING ---
PT RECEIVED GlySure BOOSTER IN RIGHT DELT. PT TOLERATED WELL. WILL CONTINUE TO MONITOR.
--- NOTE | 2021-09-15 13:52 | MDS.RN ---
Information for the mds was obtained from review of the clinical record, interview of resident, staff, and direct observation of resident's care.
[2021-09-15] MEDS: Hydrocortisone 2.5% Crm 1 APPLIC TOPICAL (13:55)
[2021-09-15] MEDS: MELATONIN 3 MG TABLET PO (20:45)
[2021-09-15] MEDS: Acetaminophen 500 MG Tablet 1000 MG PO (20:51)
[2021-09-15] MEDS: oxyCODONE 5 MG Tablet PO (20:52)
[2021-09-16] VITALS (9 sets, daily range): BP systolic 95–143; BP diastolic 48–81; PULSE 80–106; RESP 16–20; TEMP 36.2–36.6; O2SAT 94–96
[2021-09-16] MEDS: Metoprolol Tartrate 25 MG Tablet PO ×2 (01:43→19:01)
[2021-09-16] MEDS: Senna/Docusate Sodium 1 Tablet 2 TABLET PO ×2 (05:40→17:17)
[2021-09-16] MEDS: Furosemide 40 MG Tablet PO (05:40)
[2021-09-16] MEDS: Levothyroxine 125 MCG Tablet PO (05:40)
[2021-09-16] MEDS: guaiFENesin 600 MG Tablet PO ×2 (05:40→17:17)
[2021-09-16] MEDS: Clopidogrel Bisulfate 75 MG Tablet PO (05:40)
[2021-09-16] MEDS: Pantoprazole Sodium 40 MG Tablet PO ×2 (05:40→17:18)
[2021-09-16] MEDS: Psyllium 1 PACKET PO (05:41)
[2021-09-16] MEDS: APIXABAN 2.5 MG TABLET PO ×2 (05:41→17:17)
[2021-09-16] MEDS: Amiodarone 200 MG Tablet PO (08:18)
[2021-09-16] MEDS: Ascorbic Acid 500 MG Tablet PO ×2 (08:18→17:17)
[2021-09-16] MEDS: Multivitamins,Ther W-Minerals Tablet 1 TABLET PO (08:18)
[2021-09-16] MEDS: Cholecalciferol (VIT D3) 25 MCG TABLET (1,000 UNITS) PO (08:18)
[2021-09-16] MEDS: metroNIDAZOLE 500 MG Tablet PO ×3 (08:18→17:17)
[2021-09-16] MEDS: Gabapentin 300 MG Capsule PO ×3 (08:21→17:20)
[2021-09-16] MEDS: Hydrocortisone 2.5% Crm 1 APPLIC TOPICAL (10:51)
[2021-09-16] MEDS: Menthol/Lanolin/Calamine/Znox 113 GM Tube 1 APPLIC TOPICAL (11:02)
[2021-09-16] MEDS: Nystatin Powder 15gm Bottle 1 APPLIC TOPICAL ×2 (11:02→22:35)
--- NOTE | 2021-09-16 13:39 | PN_ITS ---
Progress Note I have been asked by Nursing to see this patient because her dtr thinks her arms are swollen and she wants me to look at them. In addition since her Hudson was discontinued she has been retaining urine. Afebrile VSS Maintaining appropriate oxygen saturation on a 2 L nasal cannula currently. Oral intake is Less than 1 liter daily Post void residuals were reviewed. On 09/14/2021 she had 90 cc. On 10-05 she retained 284 cc and today the post void residual was 143. Recorded weights are all over the place and I am not sure how reliable the weights are. Discussed with nursing - see above. Reviewed the PT/OT notes - She is ambulating now up to 20' but is not currently able to do steps. Medication list reviewed. Recent lab was personally reviewed. Creatinine yesterday was up to 2 with a BUN of 68. Rare cough. Denies CP. she is c/o a red rash and pruritus. I reviewed Dr. Olmedo's notes. When she developed the rash he discontinued the Vancomycin but the rash did not improve. He then stopped ertapenem and change the antibiotics to p.o. Cipro and Flagyl. His note on 09 14 states the rash is still worsening and he suspects it is not the antibiotics. The last CBC was 09/11/2021 and at that time she had 6.2% eosinophils. She was also started on Amiodarone at the time she was started on Vanco because the BP was low and the HR was uncontrolled and was up into the 120's in AF. Physical Exam Const alert, oriented x3 and no apparent distress Constitutional Narrative: Lying at approximately 30 degrees in bed with no shortness of breath, no conversational dyspnea and no tachypnea. General Appearance: cooperative Resp Resp Narrative: Coarse crackles in the bases. no wheezing. Able to talk in full sentences. Not tachypneic. Cardio Cardio Narrative: HR is controlled and is currently in the 80's GI GI Narrative: Nontender, nondistended, bowel sounds heard in all 4 quadrants, no guarding with palpation. Extremity Extremity Narrative: Boggy pitting edema of both lower extremities up into the posterior thighs. No pitting edema in the flanks. Patient has pitting edema of the bilateral arms fr om the shoulder to the elbow. Skin Skin Narrative: She has an erythematous rash on her abdomen, back, extremities and it is very pruritic. Assessment & Plan Assessment/Plan (1) Allergic dermatitis: PLAN: I suspect that amiodarone may be the cause of the allergic dermatitis. I have discontinued amiodarone. If the heart rate becomes uncontrolled we will increase the beta-marivel because the blood pressure is no longer low and she is no longer septic. Will order Atarax as needed but hold off on any steroids due to the infected seroma. Continue Cipro and Flagyl. (2) Hospital acquired PNA: PLAN: Much improved and she is down to [address] Delacruz is following. (3) Pulmonary hypertension: PLAN: Currently has right heart failure with pitting edema in her legs up to the groin. She is third spacing fluid also because she is hypoalbuminemic. When I last tried to order Albumin the pharm had no albumin but, the have today. Will give 25GM Albumin followed by IV Lasix in 30-60 minutes. (4) Infected seroma due to and not concurrent with procedure: PLAN: Continue Cipro/Flagyl ordered by Dr. Delacruz. I suspect she is not allergic to Invanz because when I initially saw her 2 weeks ago she was on Invanz and had no rash. (5) Debility: PLAN: Continue therapy. (6) Urine retention: PLAN: Only 1 PVR > 200. No intervention needed at this time. Nursing is getting her up to the BSC or the BR. At night she has a purewick. PLAN: Plan Check a CBC with diff and a BMP in the AM. Visit Charges Inpatient E&M: 24296 SNF Subs L2
[2021-09-16] MEDS: hydrOXYzine 10 MG Tablet PO ×2 (17:17→22:18)
[2021-09-16] MEDS: Albumin Human 25% (100 mL) 25 GM/100 ML BAG IV (18:52)
[2021-09-16] MEDS: MELATONIN 3 MG TABLET PO (22:17)
[2021-09-16] MEDS: oxyCODONE 5 MG Tablet PO (22:17)
[2021-09-16] MEDS: Furosemide 100 MG/10 ML Vial 60 MG IV (22:18)
[2021-09-16] MEDS: 0.9% Saline Lock 10 ML Syringe IV (22:18)
[2021-09-17] VITALS (10 sets, daily range): BP systolic 113–143; BP diastolic 44–70; PULSE 75–100; RESP 18–21; TEMP 35.8–36.6; O2SAT 94–97
--- NOTE | 2021-09-17 02:18 | NURSING ---
Addendum entered by Erlinda Burgos 09/17/21 08:01: Patient does not have an order to straight cath. Pt requested to be able to get up and try to urinate. Report passed onto day shift nurse and day shift nurse will follow up. Original Note: pt Bladder scan at 388. Patient refused to be straight cathed as this time. Stated she would like to wait until morning.
[2021-09-17] MEDS: Metoprolol Tartrate 25 MG Tablet PO ×3 (02:23→18:11)
[2021-09-17 06:29] LABS: Anion Gap 6 (5-15); BUN 69 mg/dL (7-18); BUN/Creat Ratio 35.2 RATIO (10-20); Calcium,Total 8.7 mg/dL (8.5-10.1); Chloride 100 mmol/L (98-107); Creatinine, Serum 1.96 mg/dL (0.55-1.02); EST Glomerular Filtration Rate 26 mL/min (>60); Est Glom Filt Rate - Afr Amer 31 mL/min (>60); Estimated Creatinine Clearance 32.28 ml/min; Glucose 111 mg/dL (74-106); Potassium 4.9 mmol/L (3.5-5.1); Sodium Level 137 mmol/L (136-145)
[2021-09-17 06:37] LABS: Absolute Lymphocyte Count 0.82 X10^3/uL (0.83-4.51); Absolute Neutrophil Count 4.4 X10^3/uL (2.0-7.7); Basophil# 0.09 X10^3/uL; Basophil% 1.3 % (0-1); Eosinophil# 0.45 X10^3/uL; Eosinophils% 6.4 % (0-5); Hematocrit 28.2 % (37-47); Hemoglobin 8.7 g/dL (12.0-15.0); Lymphocyte # 0.82 X10^3/ul (0.83-4.51); Lymphocyte % 11.7 % (19-41); Mean Corp Hgb Conc 30.9 g/dL (32-36); Mean Corpuscular Hgb 30.4 pg (27.0-32.0); Mean Corpuscular Volume 98.6 fL (81-99); Mean Platelet Vol. 10.8 fl (6.2-12.0); Monocyte# 1.14 X10^3/uL; Monocyte% 16.3 % (0-10); NRBC Flagged by Analyzer 0.3 % (0-5); Neutrophil # 4.36 X10^3/uL (2.7-7.7); Neutrophil % 62.6 % (47-70); POSITIVE MORPHOLOGY YES; Platelet Count 251 K/mm3 (150-450); RBC Distribution Width CV 20.6 % (11.6-14.6); RBC Distribution Width SD 74.9 fl (35.1-43.9); Red Blood Count 2.86 M/mm3 (4.2-5.4)
[2021-09-17 06:38] LABS: Differential Indicated SCAN CRITERIA MET
[2021-09-17 06:58] LABS: Anisocytosis 2+; Differential Comment SCANNED
[2021-09-17 06:59] LABS: Hypochromasia 2+; Macrocytosis 1+; Microcytosis 1+
[2021-09-17] MEDS: Pantoprazole Sodium 40 MG Tablet PO ×2 (07:01→18:10)
[2021-09-17] MEDS: Levothyroxine 125 MCG Tablet PO (07:01)
[2021-09-17] MEDS: Clopidogrel Bisulfate 75 MG Tablet PO (07:01)
[2021-09-17] MEDS: Senna/Docusate Sodium 1 Tablet 2 TABLET PO (07:01)
[2021-09-17] MEDS: Furosemide 40 MG Tablet PO (07:01)
[2021-09-17] MEDS: hydrOXYzine 10 MG Tablet PO ×3 (07:02→20:34)
[2021-09-17] MEDS: APIXABAN 2.5 MG TABLET PO ×2 (07:02→18:11)
[2021-09-17] MEDS: Psyllium 1 PACKET PO (07:02)
[2021-09-17] MEDS: guaiFENesin 600 MG Tablet PO ×2 (07:02→18:11)
[2021-09-17] MEDS: Gabapentin 300 MG Capsule PO ×3 (09:02→18:16)
[2021-09-17] MEDS: Ascorbic Acid 500 MG Tablet PO ×2 (09:03→18:11)
[2021-09-17] MEDS: Multivitamins,Ther W-Minerals Tablet 1 TABLET PO (09:03)
[2021-09-17] MEDS: metroNIDAZOLE 500 MG Tablet PO ×3 (09:03→18:10)
[2021-09-17] MEDS: Cholecalciferol (VIT D3) 25 MCG TABLET (1,000 UNITS) PO (09:03)
--- NOTE | 2021-09-17 10:21 | PCM.PN.ID ---
Physical Exam Narrative Rash now starting to improve, no fever Const alert and no apparent distress Resp normal air movement and clear to auscultation bilaterally Cardio regular rate and regular rhythm GI soft to palpation, non-tender and non-distended Skin Skin Narrative: rash starting to fade, some desquamation ID ID: Route of nutrition/ use of supplements: [] Nutritional Intake: [] IV Site: [] Hudson Catheter: [] Assessment & Plan Assessment/Plan (1) Left hip prosthetic joint infection: PLAN: s/p OR 08/20/[address] Nettles for I&D and revision of L hip.? One surg cx with proteus and bacteroides.? Now course complicated by worsening EL. 08/24 changed abx to ceftriaxone.? Neph consulted.? Plan on 6 weeks iv ertapenem, stop date 10/01/21.? Had rash with ceftriaxone. Developed hypoxia, vanc added, covid and resp pcr panel neg. O2 slowly improving. Not clear if infectious or cardiac in origin. Now with rash on trunk, stopped vanc, not improved, so on 09/10 stopped ertapenem and changed to po cipro/flagyl. Rash was still worsening, at this point think it has be something other than the antibiotics. Possible reaction with amiodarone, now stopped by primary team, rash improving. Will follow.
[2021-09-17] MEDS: Nystatin Powder 15gm Bottle 1 APPLIC TOPICAL ×2 (10:46→20:27)
--- NOTE | 2021-09-17 10:57 | NURSING ---
Addendum entered by Adonis Shirley 09/17/21 11:12: NOTE LEFT FOR Original Note: PT VOIDED,BLADDER SCANNED FOR 12ML. PT COMPLAINING OF SKIN HURTING AND BURNING. SKIN STILL RED, IN TO SEE PT. PT DAX LOWER LEGS AND ARMS SWOLLEN +2 PITTING. PRN PAIN MED GIVEN. WILL CONTINUE TO MONITOR. RN AWARE
[2021-09-17] MEDS: oxyCODONE 5 MG Tablet PO (11:01)
--- NOTE | 2021-09-17 15:57 | PN_ITS ---
Subjective Subjective Afebrile VSS Maintaining appropriate oxygen saturation on a 2 L nasal cannula. Oral intake is poor - airborne mission systems superintendent is following and she is severely malnourished I&O not accurate due to incontinence. Daily weights are ordered. She is retaining urine and nursing has been straight cath'ing. Will insert a Hudson today for urine retention and for accurate I&O's Discussed with nursing - no problems that need addressed Reviewed the PT/OT notes Medication list reviewed. The weight today is 211.3 pounds which is essentially unchanged from yesterday however she was weighed in the late afternoon. All lab from today was personally reviewed. White blood cell count is normal at 7.0 with 63% neutrophils and 1.7% immature granulocytes. Eosinophils are elevated at 6.4%. Hemoglobin is gradually trending down and today is 8.7, down from 8.9 on 09/11/2021. She has 2+ anisocytosis, 2+ hypochromasia, 1+ microcytosis and 1+ macrocytosis. Sodium is within normal limits and the potassium is stable at 4.9. BUN is 69 and the creatinine is 1.96 which has been stable since the beginning of the week. she is fatigued and she has no appetite. Her life for the past 2 years has been difficult and she has spent a lot of time in the hospital. She fatigues easily and gets SOB. Has not been using her IS and it is not within her reach. she putnam her best with therapy and she at least tries every thing that is asked of her. Affect is flat. She agrees that she may be depressed. Objective Data Objective Data Vital Signs: Vital Signs Temp Pulse Resp BP Pulse Ox O2 Del Method O2 Flow Rate 96.4 F L 75 21 H 134/58 H 97 Nasal Cannula 2 09/17/21 15:37 09/17/21 15:37 09/17/21 15:37 09/17/21 15:37 09/17/21 15:37 09/17/21 15:37 09/17/21 15:37 FiO2 35 09/07/21 09:37 Oxygen Flow Rate (L/min) 2 Oxygen Delivery Method Nasal Cannula Weight: 211 lb Body Mass Index (BMI) 38.9 Intake & Output: Intake and Output for Last 24 Hours 09/15/21 09/16/21 09/17/21 23:59 23:59 23:59 Intake Total 720 / 720 760 / 760 600 / 600 Output Total 490 / 490 Balance 230 / 230 760 / 760 600 / 600 Medical Nutrition Assessment Dietitian: Malnutrition Criteria Met Start: 09/09/21 10:25 Freq: Status: Active Protocol: Document 09/16/21 16:21 [facility] (Rec: 09/16/21 16:21 [facility] [id number]) Nutrition Malnutrition Evidence of Malnutrition Exists Yes Malnutrition (moderate): Acute Illness/Injury Evidenced By Suboptimal Energy Intake ( Severe),Weight Loss (Moderate) Intake Problem Inadequate Oral Intake Status Inactive Problem Clinical Problem Acute Disease or Injury Related Malnutrition Etiology moderate - related to inadequate energy intake at meals Signs/Symptoms as evidenced by <50% po intake x 3-4 wks - has had variable wts and edema that is likely masking wt loss. Status Active Problem Recommendation Dietitian Recommendations/Changes Will continue Regular diet w/ small portions per res request and res right - consistency per YARD SWITCH OPERATOR Will continue ensure enlive 8 oz w/ meals per res preference - will decrease to 4 oz at meals at time of follow up if res eating better and if agreeable to change. Will continue to monitor wt trends and changes in fluid status. Rec appetite stimulant to help encourage increased po intake . Will fortify foods as able to make foods more nutrient dense if consumed. Lab / Micro Data Result Diagrams: 09/17/21 05:12 09/17/21 05:12 Labs: Laboratory Results - last 24 hr 09/17/21 05:12: Sodium 137, Potassium 4.9, Chloride 100, Carbon Dioxide 31.0, Anion Gap 6, BUN 69 H, Creatinine 1.96 H, Estim Creat Clear Calc 32.28, Est GFR (MDRD) Af Amer 31 L, Est GFR (MDRD) Non-Af 26 L, BUN/Creatinine Ratio 35.2 H, Glucose 111 H, Calcium 8.7 09/17/21 05:12: WBC 7.0, RBC 2.86 L, Hgb 8.7 L, Hct 28.2 L, MCV 98.6, MCH 30.4, MCHC 30.9 L, RDW Std Deviation 74.9 H, RDW Coeff of [place] 20.6 H, Plt Count 251, MPV 10.8, Immature Gran % (Auto) 1.700 H, Neut % (Auto) 62.6, Lymph % (Auto) 11.7 L, [place] % (Auto) 16.3 H, Eos % (Auto) 6.4 H, Baso % (Auto) 1.3 H, Absolute Neuts (auto) 4.4, Absolute Lymphs (auto) 0.82 L, Nucleated RBC % 0.3, Dif ferential Comment SCANNED, Hypochromasia 2+, Anisocytosis 2+, Microcytosis 1+, Macrocytosis 1+ Micro: Microbiology 09/17/21 09:10 Nasal Secretion SARS-CoV-2 Antigen (Rapid) - Final 09/06/21 10:00 Blood Culture (Wb) - Right Forearm Blood Culture - Final No growth in 5 days. 09/06/21 10:12 Blood Culture (Wb) - Right Hand Blood Culture - Final No growth in 5 days. 09/10/21 04:18 Nasal Secretion SARS-CoV-2 Antigen (Rapid) - Final 09/06/21 12:30 Urine Catheter - Hudson Urine Culture - Final Presumptive C albicans 09/06/21 10:27 Mucosa - Nose Respiratory Panel (PCR) - Final 09/06/21 10:15 Nasal Secretion SARS-CoV-2 Antigen (Rapid) - Final Physical Exam Const alert and oriented x3 General Appearance: cooperative Orientation / Consciousness: Negative for confused Resp Resp Narrative: Decreased tidal volume due to weakness. Crackles in both bases, no wheezing, no conversational dyspnea and no accessory muscle use. Cardio Cardio Narrative: irreg irreg with controlled VR, did not appreciate an S3 but heart sounds somewhat distant. GI normal to inspection, nondistended, normoactive bowel sounds, soft to palpation and non-tender GI Narrative: no pitting edema in the flanks Extremity Extremity Narrative: 4+ pitting brawny edema of the legs to the groin. The edema in the hands and the upper arms seems a little better today. Skin Skin Narrative: The rash is fading and the pruritus is better today. Neuro CN's II-XII intact bilaterally and no focal motor deficits Assessment & Plan Assessment/Plan (1) Urine retention: PLAN: Hudson catheter inserted. 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 (2) Acute on chronic systolic CHF (congestive heart failure): PLAN: combined sys and diastolic CHF (3) Chronic kidney disease, stage 3b: (4) Chronic anticoagulation: (5) Secondary pulmonary arterial hypertension: (6) Hypoxia: (7) Depression: (8) Malnutrition: PLAN: Plan Start Lasix 80 mg BID. daily weights and accurate I&O's. IF she does not diurese with boluses of Lasix will D/W nephrology and consider continuous Lasix infusion. Recheck a BMP on Tuesday PA and LAT CXR in the AM and a BNP. Start Remeron7.5 mg p.o. nightly for depression and to stimulate appetite. Moved the IS to her bedside table and encouraged her to use it and do 10 breaths each hour when awake. Continue scheduled Atarax every 8 hours for 24-48 more hours and then changed to as needed. Charges/Coding Visit Charges Inpatient E&M: 19296 Subs Hosp L2
--- NOTE | 2021-09-17 16:14 | NURSING ---
THERAPY FOUND PT UP WALKING IN ROOM WITH OUT WALKER AND OXYGEN. ASKED PT WHERE SHE WAS GOING PT STATED TO BATH ROOM,I THOUGHT I WAS AT HOME LOOKING FOR MY . RN AWARE
--- NOTE | 2021-09-17 17:23 | NURSING ---
GUPTA INSERTED PER FOR RETENTION.
--- NOTE | 2021-09-17 17:28 | NURSING ---
CALLED AND UPDATED DAUGHTER ON PT.
[2021-09-17] MEDS: 0.9% Saline Lock 10 ML Syringe IV ×2 (18:20→20:35)
[2021-09-17] MEDS: Furosemide 100 MG/10 ML Vial 80 MG IV (20:25)
[2021-09-17] MEDS: Menthol/Lanolin/Calamine/Znox 113 GM Tube 1 APPLIC TOPICAL (20:25)
[2021-09-17 20:32] LABS: BNP,B-Type NATRIURETIC PEPTIDE 820.1 pg/mL (0-100)
[2021-09-17] MEDS: MELATONIN 3 MG TABLET PO (20:34)
[2021-09-17] MEDS: Mirtazapine 15 MG Tablet 7.5 MG PO (20:34)
[2021-09-17 21:10] LABS: Mucous, Urine 0 SEEN /hpf (<or=2+)
[2021-09-17 21:14] LABS: Color, Urine Yellow (Yellow); Glucose, Dipstick Normal (Normal); Ketone-Dipstick 5 mg/dl (Negative); Leukocyte Esterase-Dipstick 500 /ul (Negative); Nitrite-Dipstick Negative (Negative); Occult Blood-Urine 250 /ul (Negative); Protein-Dipstick 30 mg/dl (Negative); Urine Bilirubin Dipstick Negative (Negative); Urine Clarity Cloudy (Clear); Urine Urobilinogen Normal (Normal)
[2021-09-17 21:41] LABS: Amorphous Sediment 1+ URATE; Bacteria 1+ /hpf (None Seen); Red Blood Cells-Urine > 100 SEEN /hpf (0-5); Squamous Epithelial Cells - UA 0-5 SEEN /hpf (5-10); White Blood Cells >100 SEEN /hpf (0-5)
[2021-09-18] VITALS (8 sets, daily range): BP systolic 134–146; BP diastolic 67–99; PULSE 91–115; RESP 14–18; TEMP 36.9; O2SAT 91–96
[2021-09-18] MEDS: Metoprolol Tartrate 25 MG Tablet PO ×3 (02:41→18:16)
[2021-09-18] MEDS: oxyCODONE 5 MG Tablet PO ×2 (02:42→21:00)
[2021-09-18 05:40] LABS: Absolute Lymphocyte Count 0.78 X10^3/uL (0.83-4.51); Absolute Neutrophil Count 4.7 X10^3/uL (2.0-7.7); Basophil# 0.09 X10^3/uL; Basophil% 1.3 % (0-1); Eosinophil# 0.33 X10^3/uL; Eosinophils% 4.6 % (0-5); Hematocrit 29.7 % (37-47); Hemoglobin 8.9 g/dL (12.0-15.0); Lymphocyte # 0.78 X10^3/ul (0.83-4.51); Lymphocyte % 10.9 % (19-41); Mean Corpuscular Hgb 29.9 pg (27.0-32.0); Mean Corpuscular Volume 99.7 fL (81-99); Mean Platelet Vol. 10.4 fl (6.2-12.0); Monocyte# 1.17 X10^3/uL; Monocyte% 16.3 % (0-10); NRBC Flagged by Analyzer 0 % (0-5); Neutrophil % 65.4 % (47-70); POSITIVE MORPHOLOGY YES; Platelet Count 266 K/mm3 (150-450); RBC Distribution Width CV 20.7 % (11.6-14.6); RBC Distribution Width SD 75.4 fl (35.1-43.9); Red Blood Count 2.98 M/mm3 (4.2-5.4); White Blood Count 7.2 K/mm3 (4.4-11.0)
[2021-09-18 05:42] LABS: Differential Indicated SCAN CRITERIA MET
[2021-09-18 06:04] LABS: Anion Gap 6 (5-15); BUN 71 mg/dL (7-18); BUN/Creat Ratio 35.1 RATIO (10-20); Calcium,Total 8.9 mg/dL (8.5-10.1); Chloride 99 mmol/L (98-107); Creatinine, Serum 2.02 mg/dL (0.55-1.02); EST Glomerular Filtration Rate 25 mL/min (>60); Est Glom Filt Rate - Afr Amer 30 mL/min (>60); Estimated Creatinine Clearance 31.37 ml/min; Glucose 104 mg/dL (74-106); Potassium 4.8 mmol/L (3.5-5.1); Sodium Level 136 mmol/L (136-145)
[2021-09-18 06:23] LABS: Anisocytosis 1+; Differential Comment SCANNED; Macrocytosis 1+; Microcytosis RARE
[2021-09-18] MEDS: guaiFENesin 600 MG Tablet PO ×2 (06:55→16:47)
[2021-09-18] MEDS: Senna/Docusate Sodium 1 Tablet 2 TABLET PO ×2 (06:55→16:46)
[2021-09-18] MEDS: Furosemide 100 MG/10 ML Vial 80 MG IV ×2 (06:55→14:21)
[2021-09-18] MEDS: Clopidogrel Bisulfate 75 MG Tablet PO (06:55)
[2021-09-18] MEDS: Pantoprazole Sodium 40 MG Tablet PO ×2 (06:55→16:47)
[2021-09-18] MEDS: APIXABAN 2.5 MG TABLET PO ×2 (06:55→16:47)
[2021-09-18] MEDS: Levothyroxine 125 MCG Tablet PO (06:55)
[2021-09-18] MEDS: hydrOXYzine 10 MG Tablet PO ×3 (06:55→21:04)
[2021-09-18] MEDS: 0.9% Saline Lock 10 ML Syringe IV ×2 (06:56→14:25)
[2021-09-18] MEDS: Cholecalciferol (VIT D3) 25 MCG TABLET (1,000 UNITS) PO (08:21)
[2021-09-18] MEDS: Gabapentin 300 MG Capsule PO ×3 (08:21→16:47)
[2021-09-18] MEDS: metroNIDAZOLE 500 MG Tablet PO ×3 (08:21→16:47)
[2021-09-18] MEDS: Ascorbic Acid 500 MG Tablet PO ×2 (08:21→16:47)
[2021-09-18] MEDS: Nystatin Powder 15gm Bottle 1 APPLIC TOPICAL ×2 (08:22→21:00)
[2021-09-18] MEDS: Multivitamins,Ther W-Minerals Tablet 1 TABLET PO (08:22)
[2021-09-18] MEDS: Menthol/Lanolin/Calamine/Znox 113 GM Tube 1 APPLIC TOPICAL ×2 (08:24→21:06)
--- NOTE | 2021-09-18 09:00 | RAD_ITS ---
INDICATION: SOB EXAMINATION/TECHNIQUE: X-RAY - XR Chest 2 Views COMPARISON: 09/06/2021. FINDINGS: LINES/DEVICES: Sternal wires are seen. LUNGS: Prominence of the bronchovascular interstitial lung markings are visualized in bilateral lung mobley with scattered areas of patchy airspace opacification visualized most prominent in the right lower lung field where there is haziness visualized overlying the right costophrenic angle. Cannot rule out subtle right pleural effusion. No evidence of left pleural effusion. Biapical prominence suggestive of COPD changes. No evidence of pneumothorax or parenchymal lung mass. Findings demonstrate no significant progression in comparison to the prior study. MEDIASTINUM AND CARDIOVASCULAR STRUCTURES: Cardiomegaly demonstrates no change in comparison to the prior study. Suggestion of a moderate-sized hiatus hernia demonstrates no change in comparison to the prior study. BONES AND SOFT TISSUES: Degenerative bone changes are seen. RAD/Chest PA and Lateral IMPRESSION: Bilateral airspace opacification demonstrate no significant change in comparison to the prior study. Electronically Signed: Hector Keenan MD at 10:32 EDT ,
--- NOTE | 2021-09-18 14:45 | PCM.PN.REN ---
Subjective Subjective Still has significant edema Objective Data Objective Data Vital Signs: Vital Signs Temp Pulse Resp BP Pulse Ox O2 Del Method O2 Flow Rate 96.4 F L 115 H 21 H 134/99 H 91 Nasal Cannula 3 09/17/21 15:37 09/18/21 11:07 09/17/21 15:37 09/18/21 02:41 09/18/21 08:32 09/18/21 08:32 09/18/21 10:03 FiO2 35 09/07/21 09:37 Oxygen Flow Rate (L/min) 3 Oxygen Delivery Method Nasal Cannula Weight: 94.937 kg Body Mass Index (BMI) 38.9 Intake & Output: Intake and Output for Last 24 Hours 09/16/21 09/17/21 09/18/21 23:59 23:59 23:59 Intake Total 760 / 760 720 / 720 360 / 360 Output Total 800 / 800 Balance 760 / 760 720 / 720 -440 / -440 Medical Nutrition Assessment Dietitian: Malnutrition Criteria Met Start: 09/09/21 10:25 Freq: Status: Active Protocol: Document 09/16/21 16:21 SLA (Rec: 09/16/21 16:21 [facility] [id number]) Nutrition Malnutrition Evidence of Malnutrition Exists Yes Malnutrition (moderate): Acute Illness/Injury Evidenced By Suboptimal Energy Intake ( Severe),Weight Loss (Moderate) Intake Problem Inadequate Oral Intake Status Inactive Problem Clinical Problem Acute Disease or Injury Related Malnutrition Etiology moderate - related to inadequate energy intake at meals Signs/Symptoms as evidenced by <50% po intake x 3-4 wks - has had variable wts and edema that is likely masking wt loss. Status Active Problem Recommendation Dietitian Recommendations/Changes Will continue Regular diet w/ small portions per res request and res right - consistency per ENROLLED AGENT Will continue ensure enlive 8 oz w/ meals per res preference - will decrease to 4 oz at meals at time of follow up if res eating better and if agreeable to change. Will continue to monitor wt trends and changes in fluid status. Rec appetite stimulant to help encourage increased po intake . Will fortify foods as able to make foods more nutrient dense if consumed. Lab / Micro Data Result Diagrams: 09/18/21 05:08 09/18/21 05:08 Labs: Laboratory Results - last 24 hr 09/17/21 05:12: B-Natriuretic Peptide 820.1 H 09/17/21 20:45: Urine Color Yellow, Urine Clarity Cloudy, Urine pH 5.0, Ur Specific [place] 1.020, Urine Protein 30 H, Urine Glucose (UA) Normal, Urine Ketones 5 H, Urine Occult Blood 250 H, Urine Nitrite Negative, Urine Bilirubin Negative, Urine Urobilinogen Normal, Ur Leukocyte Esterase 500 H, Urine RBC > 100 SEEN, Urine WBC >100 SEEN, Ur Squamous Epith Cells 0-5 SEEN, Amorphous Sediment 1+ URATE, Urine Bacteria 1+, Urine Mucus 0 SEEN 09/18/21 05:08: WBC 7.2, RBC 2.98 L, Hgb 8.9 L, Hct 29.7 L, MCV 99.7 H, MCH 29.9, MCHC 30.0 L, RDW Std Deviation 75.4 H, RDW Coeff of Leatha 20.7 H, Plt Count 266, MPV 10.4, Immature Gran % (Auto) 1.500 H, Neut % (Auto) 65.4, Lymph % (Auto) 10.9 L, [place] % (Auto) 16.3 H, Eos % (Auto) 4.6, Baso % (Auto) 1.3 H, Absolute Neuts (auto) 4.7, Absolute Lymphs (auto) 0.78 L, Nucleated RBC % 0, Differential Comment SCANNED, Anisocytosis 1+, Microcytosis RARE, Macrocytosis 1+ 09/18/21 05:08: Sodium 136, Potassium 4.8, Chloride 99, Carbon Dioxide 31.0, Anion Gap 6, BUN 71 H, Creatinine 2.02 H, Estim Creat Clear Calc 31.37, Est GFR (MDRD) Af Amer 30 L, Est GFR (MDRD) Non-Af 25 L, BUN/Creatinine Ratio 35.1 H, Glucose 104, Calcium 8.9 Micro: Microbiology 09/17/21 09:10 Nasal Secretion SARS-CoV-2 Antigen (Rapid) - Final 09/06/21 10:00 Blood Culture (Wb) - Right Forearm Blood Culture - Final No growth in 5 days. 09/06/21 10:12 Blood Culture (Wb) - Right Hand Blood Culture - Final No growth in 5 days. 09/10/21 04:18 Nasal Secretion SARS-CoV-2 Antigen (Rapid) - Final 09/06/21 12:30 Urine Catheter - Fuentes Urine Culture - Final Presumptive C albicans 09/06/21 10:27 Mucosa - Nose Respiratory Panel (PCR) - Final 09/06/21 10:15 Nasal Secretion SARS-CoV-2 Antigen (Rapid) - Final Radiography Diagnostic Testing: Radiology Impression Chest X-Ray 09/18/21 09:00 IMPRESSION: Bilateral airspace opacification demonstrate no significant change in comparison to the prior study. Electronically Signed: Hector Keenan MD at 10:32 EDT , Physical Exam Narrative Alert awake oriented x 3 no obvious distress no pallor no icterus no JVD s1s2 no murmurs lungs clear abdomen soft no organomegaly +++ edema no cyanosis fuentes + Assessment & Plan Assessment/Plan (1) Chronic kidney disease, stage 3b: PLAN: Creatinine is back to baseline. Still has significant edema. Currently on Lasix 80 mg twice a day. Will add metolazone. Discussed with Dr. Rivers (2) Acute kidney injury: (3) Chronic combined systolic and diastolic CHF (congestive heart failure):
[2021-09-18] MEDS: metOLazone 5 MG Tablet PO (16:47)
[2021-09-18] MEDS: Mirtazapine 15 MG Tablet 7.5 MG PO (21:04)
[2021-09-18] MEDS: MELATONIN 3 MG TABLET PO (21:04)
[2021-09-19 03:51] VITALS: BP 94/50; PULSE 118
--- NOTE | 2021-09-19 04:24 | NURSING ---
Addendum entered by Elizabeth Vance 09/19/21 04:24: RN aware. BP taken manually. Original Note: Pt BP at 0315 was 94/50. Heart rate was taken apically; 118 and irregular. Metoprolol held d/t low BP. Note left for Dr. Rivers.
[2021-09-19 06:23] LABS: Absolute Lymphocyte Count 0.93 X10^3/uL (0.83-4.51); Absolute Neutrophil Count 4.3 X10^3/uL (2.0-7.7); Basophil# 0.09 X10^3/uL; Basophil% 1.3 % (0-1); Eosinophil# 0.35 X10^3/uL; Eosinophils% 5.1 % (0-5); Hematocrit 28.7 % (37-47); Hemoglobin 8.9 g/dL (12.0-15.0); Lymphocyte # 0.93 X10^3/ul (0.83-4.51); Lymphocyte % 13.5 % (19-41); Mean Corpuscular Hgb 30.6 pg (27.0-32.0); Mean Corpuscular Volume 98.6 fL (81-99); Mean Platelet Vol. 10.1 fl (6.2-12.0); Monocyte# 1.11 X10^3/uL; Monocyte% 16.1 % (0-10); NRBC Flagged by Analyzer 0 % (0-5); Neutrophil # 4.31 X10^3/uL (2.7-7.7); Neutrophil % 62.7 % (47-70); POSITIVE MORPHOLOGY YES; Platelet Count 266 K/mm3 (150-450); RBC Distribution Width CV 20.5 % (11.6-14.6); RBC Distribution Width SD 73.7 fl (35.1-43.9); Red Blood Count 2.91 M/mm3 (4.2-5.4); White Blood Count 6.9 K/mm3 (4.4-11.0)
[2021-09-19] MEDS: Psyllium 1 PACKET PO (06:34)
[2021-09-19] MEDS: Senna/Docusate Sodium 1 Tablet 2 TABLET PO ×2 (06:35→17:08)
[2021-09-19] MEDS: guaiFENesin 600 MG Tablet PO ×2 (06:35→17:07)
[2021-09-19] MEDS: hydrOXYzine 10 MG Tablet PO (06:35)
[2021-09-19] MEDS: APIXABAN 2.5 MG TABLET PO ×2 (06:36→17:08)
[2021-09-19] MEDS: Levothyroxine 125 MCG Tablet PO (06:36)
[2021-09-19] MEDS: Clopidogrel Bisulfate 75 MG Tablet PO (06:36)
[2021-09-19] MEDS: Pantoprazole Sodium 40 MG Tablet PO ×2 (06:36→17:07)
[2021-09-19] MEDS: metOLazone 5 MG Tablet PO (06:37)
[2021-09-19 06:45] LABS: Differential Indicated SCAN CRITERIA MET
--- NOTE | 2021-09-19 06:50 | NURSING ---
Lung sounds assessed again this AM. Inspiratory wheezes noted in posterior R middle and lower lung. Respiratory therapy called to request an aerosol treatment. Note left for Dr. Rivers. RN aware.
[2021-09-19 06:52] LABS: Anisocytosis 1+; Differential Comment SCANNED; Hypochromasia RARE; Macrocytosis 1+
[2021-09-19 06:55] LABS: Albumin, Serum 2.3 g/dL (3.2-5.0); BUN 71 mg/dL (7-18); Calcium,Total 8.9 mg/dL (8.5-10.1); Chloride 101 mmol/L (98-107); Creatinine, Serum 2.09 mg/dL (0.55-1.02); EST Glomerular Filtration Rate 24 mL/min (>60); Est Glom Filt Rate - Afr Amer 29 mL/min (>60); Estimated Creatinine Clearance 30.03 ml/min; Glucose 114 mg/dL (74-106); Magnesium 2.4 mg/dL (1.6-2.6); Phosphorus 4.1 mg/dL (2.5-4.9); Potassium 4.7 mmol/L (3.5-5.1); Sodium Level 138 mmol/L (136-145)
[2021-09-19] MEDS: Furosemide 100 MG/10 ML Vial 80 MG IV ×2 (06:57→13:30)
[2021-09-19] MEDS: 0.9% Saline Lock 10 ML Syringe IV ×3 (06:57→13:31)
[2021-09-19 07:00] VITALS: PULSE 115; RESP 16; O2SAT 91
[2021-09-19] MEDS: Albuterol 2.5 MG/3 ML VIAL.NEB. INHALATION (07:03)
[2021-09-19] MEDS: metroNIDAZOLE 500 MG Tablet PO ×3 (08:03→17:07)
[2021-09-19] MEDS: Multivitamins,Ther W-Minerals Tablet 1 TABLET PO (08:04)
[2021-09-19] MEDS: Ascorbic Acid 500 MG Tablet PO ×2 (08:04→17:07)
[2021-09-19] MEDS: Cholecalciferol (VIT D3) 25 MCG TABLET (1,000 UNITS) PO (08:04)
[2021-09-19] MEDS: Menthol/Lanolin/Calamine/Znox 113 GM Tube 1 APPLIC TOPICAL ×2 (08:04→21:21)
[2021-09-19] MEDS: Nystatin Powder 15gm Bottle 1 APPLIC TOPICAL ×2 (08:05→21:21)
[2021-09-19] MEDS: Gabapentin 300 MG Capsule PO ×3 (08:06→17:11)
[2021-09-19 10:00] VITALS: PULSE 108; RESP 18; O2SAT 94
[2021-09-19 10:54] VITALS: BP 112/34; PULSE 101
[2021-09-19] MEDS: Metoprolol Tartrate 25 MG Tablet PO (10:54)
--- NOTE | 2021-09-19 10:54 | PN_ITS ---
Subjective Subjective Afebrile VSS-heart rate is increasing with discontinuation of amiodarone. Blood pressure at 3 AM was 94/50 but current blood pressure is 112/34 with a heart rate of 101. Pulse oximeter today is 91% on a 3 L nasal cannula and yesterday it was 91% to 96% on a 2 L nasal cannula. Oral intake is poor Fluid balance yesterday was -515. She had 1175 cc of urine output. She was seen by Dr. Palomo yesterday and he added metolazone to the intravenous Lasix. Last bowel movement was yesterday. Weight is down approximately 3 pounds from 09/17/2021. Discussed with nursing - very sleepy this AM.......this has been since she was started on Atarax for severe Pruritus related to rash from Amiodarone allergy. Reviewed the therapy notes Medication list reviewed. Started on 7.5 mg of Remeron last night for depression and to stimulate the appetite. All lab from today was personally reviewed. WBC is normal with 62.7% neutrophils and 1.3% immature granulocytes which is down from yesterday. Eosinophils are 5.1% today which is up from 4.6% yesterday. The BUN is 71 and the creatinine is 2.09. Sodium is normal and the potassium is 4.7. Serum bicarb is high normal at 32 and I suspect she may have some respiratory acidosis/atelectasis related to sedation from the Atarax. Phosphorus is normal at 4.1 and the magnesium is normal at 2.4. Albumin is 2.3. Urine culture has no growth so far. Objective Data Objective Data Vital Signs: Vital Signs Temp Pulse Resp BP Pulse Ox O2 Del Method O2 Flow Rate 98.5 F 115 H 16 94/50 L 91 Nasal Cannula 3 09/18/21 14:00 09/19/21 07:00 09/19/21 07:00 09/19/21 03:51 09/19/21 07:00 09/19/21 07:00 09/19/21 07:00 FiO2 35 09/07/21 09:37 Oxygen Flow Rate (L/min) 3 Oxygen Delivery Method Nasal Cannula Weight: 208 lb 4.8 oz Body Mass Index (BMI) 38.9 Intake & Output: Intake and Output for Last 24 Hours 09/17/21 09/18/2122 23:59 23:59 23:59 Intake Total 720 / 720 540 / 540 360 / 360 Output Total 1275 / 1275 300 / 300 Balance 720 / 720 -735 / -735 60 / 60 Medical Nutrition Assessment Dietitian: Malnutrition Criteria Met Start: 09/09/21 10:25 Freq: Status: Active Protocol: Document 09/16/21 16:21 SLA (Rec: 09/16/21 16:21 SLA [id number]) Nutrition Malnutrition Evidence of Malnutrition Exists Yes Malnutrition (moderate): Acute Illness/Injury Evidenced By Suboptimal Energy Intake ( Severe),Weight Loss (Moderate) Intake Problem Inadequate Oral Intake Status Inactive Problem Clinical Problem Acute Disease or Injury Related Malnutrition Etiology moderate - related to inadequate energy intake at meals Signs/Symptoms as evidenced by <50% po intake x 3-4 wks - has had variable wts and edema that is likely masking wt loss. Status Active Problem Recommendation Dietitian Recommendations/Changes Will continue Regular diet w/ small portions per res request and res right - consistency per CASTING OPERATOR HELPER Will continue ensure enlive 8 oz w/ meals per res preference - will decrease to 4 oz at meals at time of follow up if res eating better and if agreeable to change. Will continue to monitor wt trends and changes in fluid status. Rec appetite stimulant to help encourage increased po intake . Will fortify foods as able to make foods more nutrient dense if consumed. Lab / Micro Data Result Diagrams: 09/19/21 06:11 09/23/21 05:14 Labs: Laboratory Results - last 24 hr 09/19/21 06:11: Sodium 138, Potassium 4.7, Chloride 101, Carbon Dioxide 32.0, BUN 71 H, Creatinine 2.09 H, Estim Creat Clear Calc 30.03, Est GFR (MDRD) Af Amer 29 L, Est GFR (MDRD) Non-Af 24 L, BUN/Creatinine Ratio 34.0 H, Glucose 114 H, Calcium 8.9, Phosphorus 4.1, Magnesium 2.4, Albumin 2.3 L 09/19/21 06:11: WBC 6.9, RBC 2.91 L, Hgb 8.9 L, Hct 28.7 L, MCV 98.6, MCH 30.6, MCHC 31.0 L, RDW Std Deviation 73.7 H, RDW Coeff of [place] 20.5 H, Plt Count 266, MPV 10.1, Immature Gran % (Auto) 1.300 H, Neut % (Auto) 62.7, Lymph % (Auto) 13.5 L, [place] % (Auto) 16.1 H, Eos % (Auto) 5.1 H, Baso % (Auto) 1.3 H, Absolute Neuts (auto) 4.3, Absolute Lymphs (auto) 0.93, Nucleated RBC % 0, Differential Comment SCANNED, Hypochromasia RARE, Anisocytosis 1+, Macrocytosis 1+ Micro: Microbiology 09/17/21 09:10 Nasal Secretion SARS-CoV-2 Antigen (Rapid) - Final 09/06/21 10:00 Blood Culture (Wb) - Right Forearm Blood Culture - Final No growth in 5 days. 09/06/21 10:12 Blood Culture (Wb) - Right Hand Blood Culture - Final No growth in 5 days. 09/10/21 04:18 Nasal Secretion SARS-CoV-2 Antigen (Rapid) - Final 09/06/21 12:30 Urine Catheter - [place] Urine Culture - Final Presumptive C albicans 09/06/21 10:27 Mucosa - Nose Respiratory Panel (PCR) - Final 09/06/21 10:15 Nasal Secretion SARS-CoV-2 Antigen (Rapid) - Final Physical Exam Const Constitutional Narrative: somewhat drowsy......due to the Atarax. Sitting in the recliner at the bedside. General Appearance: cooperative Resp Resp Narrative: Decreased respiratory effort. Diminished breath sounds especially in the bases with coarse crackles bilaterally. Cardio Cardio Narrative: Irregular irregular with increased ventricular response up to 114. No gallop appreciated. No pericardial friction rub. Rate: tachycardic GI normal to inspection, nondistended, normoactive bowel sounds, soft to palpation and non-tender Extremity Extremity Narrative: She has pitting edema both the upper extremities and lower extremities. In the lower extremities the pitting is from the toes to the groin. Skin Skin Narrative: Allergic dermatitis is much improved and she tells me she has no pruritus at this time. Neuro CN's II-XII intact bilaterally and no focal motor deficits Psych cooperative Assessment & Plan Assessment/Plan (1) Malnutrition: PLAN: Has been started on Remeron to help with depression and also to help stimulate appetite. (2) Depression: PLAN: Currently on Remeron and will continue. (3) Hypoxia: PLAN: She is receiving supplemental oxygen via a nasal cannula. She is hypoventilating today due to drowsiness and this may be the reason why we have had to go up on the liters of oxygen. (4) Allergic dermatitis: PLAN: Rash has resolved with discontinuation of amiodarone and Atarax 10 mg 3 times daily for the past few days. We will change the Atarax to as needed today. (5) Acute on chronic systolic CHF (congestive heart failure): PLAN: Continue efforts to diurese. (6) Atrial fibrillation: PLAN: Controlling the heart rate in this patient who is now allergic to amiodarone while maintaining a good blood pressure is difficult. If the heart rate is consistently above 115 we will discuss with cardiology. (7) Infected seroma due to and not concurrent with procedure: PLAN: Continue antibiotics (8) Chronic anticoagulation: PLAN: Continue Eliquis PLAN: Plan Continue PT/OT. Charges/Coding Visit Charges Inpatient E&M: 20278 [facility] Subs L2
--- NOTE | 2021-09-19 10:55 | NURSING ---
BP 112/34 and HR 101 at this time, Dr. Rivers updated and instructed this nurse to administer metoprolol and add parameters to hold lopressor for SBP<110
[2021-09-19 13:55] VITALS: BP 122/72; PULSE 107; RESP 16; TEMP 36.3; O2SAT 93
[2021-09-19] MEDS: MELATONIN 3 MG TABLET PO (21:18)
[2021-09-19] MEDS: Mirtazapine 15 MG Tablet 7.5 MG PO (21:18)
[2021-09-19 21:20] VITALS: BP 103/49; PULSE 108
--- NOTE | 2021-09-19 22:25 | NURSING ---
BP at HS was 103/49, HR 108 bpm. Lopressor held per parameters.
[2021-09-20] MEDS: guaiFENesin 600 MG Tablet PO ×2 (06:26→15:11)
[2021-09-20] MEDS: Senna/Docusate Sodium 1 Tablet 2 TABLET PO ×2 (06:26→15:11)
[2021-09-20] MEDS: APIXABAN 2.5 MG TABLET PO ×2 (06:27→15:18)
[2021-09-20] MEDS: Levothyroxine 125 MCG Tablet PO (06:27)
[2021-09-20] MEDS: Pantoprazole Sodium 40 MG Tablet PO ×2 (06:27→15:11)
[2021-09-20] MEDS: Clopidogrel Bisulfate 75 MG Tablet PO (06:27)
[2021-09-20 06:28] VITALS: BP 112/52; PULSE 114
[2021-09-20] MEDS: Metoprolol Tartrate 25 MG Tablet PO ×3 (06:28→20:32)
[2021-09-20] MEDS: Furosemide 100 MG/10 ML Vial 80 MG IV ×2 (07:56→12:53)
[2021-09-20] MEDS: Ascorbic Acid 500 MG Tablet PO ×2 (07:57→12:54)
[2021-09-20] MEDS: metroNIDAZOLE 500 MG Tablet PO ×3 (07:57→15:11)
[2021-09-20] MEDS: Cholecalciferol (VIT D3) 25 MCG TABLET (1,000 UNITS) PO (07:57)
[2021-09-20] MEDS: Multivitamins,Ther W-Minerals Tablet 1 TABLET PO (07:59)
[2021-09-20] MEDS: metOLazone 5 MG Tablet PO (07:59)
[2021-09-20] MEDS: Menthol/Lanolin/Calamine/Znox 113 GM Tube 1 APPLIC TOPICAL (08:02)
[2021-09-20] MEDS: Nystatin Powder 15gm Bottle 1 APPLIC TOPICAL ×2 (08:05→20:38)
[2021-09-20] MEDS: Gabapentin 300 MG Capsule PO ×3 (08:05→15:16)
[2021-09-20 08:12] VITALS: O2SAT 94
[2021-09-20 12:54] VITALS: PULSE 77
[2021-09-20 14:00] VITALS: BP 134/66; PULSE 94; RESP 18; TEMP 36.7; O2SAT 94
--- NOTE | 2021-09-20 14:15 | PCM.PN.BLA ---
Progress Note Afebrile Vital signs are stable. Heart rate is variable and when she is active it goes up to 114 with exertion. Current heart rate is 77. She also fluctuates between sinus rhythm and atrial fibrillation. Excellent urine output in the past 24 hours and she is -1280. P.o. intake increased to 720 yesterday. Her weight today is 203 pounds and 3 ounces which is down from 211 pounds and 5 ounces on 09/17/2021. Tells me that she feels much more alert today. She was visiting with a friend when I entered the room. she is alert and appropirate. She denies pruritus. Denies SOB. Tells me that she has been using her IS. Not coughing. Urine in the Hudson bag is clear and light yellow. She denies CP, palpitations, lightheadedness. Physical Exam Const alert, oriented x3 and no apparent distress Resp Resp Narrative: better respiratory effort today. Coarse crackles in the bases are less today. No wheezing. able to talk in complete sentences. Cardio Cardio Narrative: irreg irreg with semi-controlled VR, did not appreciate an S3 but heart sounds somewhat distant. GI normal to inspection, nondistended, normoactive bowel sounds, soft to palpation and non-tender GI Narrative: no pitting edema in the flanks Extremity Extremity Narrative: 4+ pitting brawny edema of the legs to the groin. The edema in the hands and the upper arms seems a little better today. the legs are starting to get a little softer. Skin Skin Narrative: The rash is fading and the pruritus is better today. Neuro CN's II-XII intact bilaterally and no focal motor deficits Assessment & Plan Assessment/Plan (1) Urine retention: PLAN: Hudson catheter inserted. 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 (2) Acute on chronic systolic CHF (congestive heart failure): PLAN: combined sys and diastolic CHF (3) Chronic kidney disease, stage 3b: (4) Chronic anticoagulation: (5) Secondary pulmonary arterial hypertension: (6) Hypoxia: (7) Depression: (8) Malnutrition: PLAN: Plan 1. We will continue intravenous Lasix and metolazone as she is diuresing much better. 2. Recheck a BMP in the a.m. 3. Continue therapy 4. Continue to encourage increased PO intake and adequate protein intake. 5. Continue Remeron Visit Charges Inpatient E&M: 92918 [facility] Subs L2
--- NOTE | 2021-09-20 19:42 | NURSING ---
Addendum entered by Ella Ramirez 09/20/21 20:55: Asked by primary ENVIRONMENTAL HEALTH TECHNICIAN to check on patient. Pt sitting up in chair, alert and oriented, call light on floor beside her chair, pt states she dropped her call light and was unable to reach it. Had chocolate on her rt sleeve and on floor, pt states he spilled her ensure. Gave pt her call light and told her that we will come back to clean her up and help her go to bed. Pt agreeable, info passed onto Alena. Original Note: Daughter Eloise called in and stated patient called her and stated, I don't have my call light, remote, and she didn't eat dinner and was promised a slushie. I was put to bed at 2:00 pm and no one has checked on me or even moved me! Explained to daughter this Nurse just came on and I would make sure everything is taken care of. Daughter continued to say this is uncalled for and seemed upset. While this nurse was still on phone, asked ADONIS Jaramillo to go check on patient. Daughter Eloise aware Ella was sent in. This Nurse told Kaitlynn Navas I would go in as soon as we were done with phone call and make sure she gets something to eat and cleaned up. Daughter seemed happy. Daughter requested I make sure to tell my boss of complaint. Will pass on to Joann Avilez.
[2021-09-20 20:32] VITALS: BP 138/67; PULSE 99
[2021-09-20] MEDS: MELATONIN 3 MG TABLET PO (20:32)
[2021-09-20] MEDS: Mirtazapine 15 MG Tablet 7.5 MG PO (20:32)
[2021-09-20] MEDS: Acetaminophen 500 MG Tablet 1000 MG PO (20:32)
[2021-09-20] MEDS: oxyCODONE 5 MG Tablet PO (20:32)
[2021-09-20] MEDS: 0.9% Saline Lock 10 ML Syringe IV (20:33)
[2021-09-20 21:11] VITALS: PULSE 99; RESP 18; O2SAT 95
[2021-09-21] VITALS (7 sets, daily range): BP systolic 116–133; BP diastolic 54–74; PULSE 91–105; RESP 18–20; TEMP 36.5–36.6; O2SAT 95–97
[2021-09-21] MEDS: hydrOXYzine 10 MG Tablet PO (00:35)
[2021-09-21] MEDS: guaiFENesin 600 MG Tablet PO ×2 (05:06→17:58)
[2021-09-21] MEDS: Levothyroxine 125 MCG Tablet PO (05:06)
[2021-09-21] MEDS: Senna/Docusate Sodium 1 Tablet 2 TABLET PO ×2 (05:06→17:58)
[2021-09-21] MEDS: Metoprolol Tartrate 25 MG Tablet PO ×3 (05:07→20:58)
[2021-09-21] MEDS: Pantoprazole Sodium 40 MG Tablet PO ×2 (05:07→17:58)
[2021-09-21] MEDS: Clopidogrel Bisulfate 75 MG Tablet PO (05:07)
[2021-09-21] MEDS: metOLazone 5 MG Tablet PO (05:07)
[2021-09-21] MEDS: APIXABAN 2.5 MG TABLET PO ×2 (05:52→17:58)
[2021-09-21 06:08] LABS: Albumin, Serum 2.3 g/dL (3.2-5.0); BUN 77 mg/dL (7-18); BUN/Creat Ratio 35.3 RATIO (10-20); Calcium,Total 8.6 mg/dL (8.5-10.1); Chloride 99 mmol/L (98-107); Creatinine, Serum 2.18 mg/dL (0.55-1.02); EST Glomerular Filtration Rate 23 mL/min (>60); Est Glom Filt Rate - Afr Amer 28 mL/min (>60); Estimated Creatinine Clearance 27.95 ml/min; Glucose 111 mg/dL (74-106); Magnesium 2.4 mg/dL (1.6-2.6); Phosphorus 4.3 mg/dL (2.5-4.9); Potassium 3.7 mmol/L (3.5-5.1); Sodium Level 140 mmol/L (136-145)
[2021-09-21] MEDS: Gabapentin 300 MG Capsule PO ×3 (07:54→17:58)
[2021-09-21] MEDS: metroNIDAZOLE 500 MG Tablet PO ×3 (07:54→17:58)
[2021-09-21] MEDS: Ascorbic Acid 500 MG Tablet PO ×2 (07:54→17:58)
[2021-09-21] MEDS: Multivitamins,Ther W-Minerals Tablet 1 TABLET PO (07:54)
[2021-09-21] MEDS: Cholecalciferol (VIT D3) 25 MCG TABLET (1,000 UNITS) PO (07:54)
[2021-09-21] MEDS: Nystatin Powder 15gm Bottle 1 APPLIC TOPICAL ×2 (07:54→21:04)
[2021-09-21] MEDS: Menthol/Lanolin/Calamine/Znox 113 GM Tube 1 APPLIC TOPICAL ×2 (07:55→21:04)
[2021-09-21] MEDS: 0.9% Saline Lock 10 ML Syringe IV (10:45)
[2021-09-21] MEDS: Furosemide 100 MG/10 ML Vial 80 MG IV ×2 (10:45→18:11)
--- NOTE | 2021-09-21 16:00 | CHAPLAIN ---
Type of Pastoral Visit ___ Initial Visit _x__ Follow-up Visit ___ On-call Visit ___ General Patient Visit ___ Spiritual Assessment ___ Family Conference ___ Bereavement ___ Rapid Response ___ Code Blue ___ Other (describe below) Pastoral Care Referral From _x__ Patient ___ Family ___ Nurse ___ Physician ___ Fluorescent Solution Mixer ___ Edge Bonder ___ Other (describe below) Sacrament/Intervention _x__ Active listening ___ Anointing ___ Hindu ___ Bereavement ___ Communion ___ Shireen exploration ___ _x__ Life review _x__ Prayer ___ Reconciliation ___ Sacrament of Sick _x__ Supportive presence ___ Wedding ___ Other (describe below) Pastoral Comments patient states that this is one of those not so good days that she has regularly; however pt conversation goes to what things make her more hopeful or positive; gave presence, time to process, and offer of support and prayers
[2021-09-21] MEDS: oxyCODONE 5 MG Tablet PO (20:57)
[2021-09-21] MEDS: MELATONIN 3 MG TABLET PO (20:59)
[2021-09-21] MEDS: Mirtazapine 15 MG Tablet 7.5 MG PO (21:00)
[2021-09-22] VITALS (13 sets, daily range): BP systolic 108–141; BP diastolic 42–63; PULSE 76–112; RESP 18–20; TEMP 36; O2SAT 89–95
[2021-09-22] MEDS: Metoprolol Tartrate 25 MG Tablet PO ×3 (05:01→20:31)
[2021-09-22] MEDS: Levothyroxine 125 MCG Tablet PO (05:01)
[2021-09-22] MEDS: Senna/Docusate Sodium 1 Tablet 2 TABLET PO (05:02)
[2021-09-22] MEDS: Clopidogrel Bisulfate 75 MG Tablet PO (05:02)
[2021-09-22] MEDS: metOLazone 5 MG Tablet PO (05:02)
[2021-09-22] MEDS: guaiFENesin 600 MG Tablet PO ×2 (05:03→17:33)
[2021-09-22] MEDS: Pantoprazole Sodium 40 MG Tablet PO ×2 (05:03→17:33)
[2021-09-22] MEDS: APIXABAN 2.5 MG TABLET PO ×2 (05:03→17:33)
[2021-09-22] MEDS: Gabapentin 300 MG Capsule PO ×3 (08:50→17:36)
[2021-09-22] MEDS: Multivitamins,Ther W-Minerals Tablet 1 TABLET PO (08:51)
[2021-09-22] MEDS: metroNIDAZOLE 500 MG Tablet PO ×3 (08:51→17:34)
[2021-09-22] MEDS: Ascorbic Acid 500 MG Tablet PO ×2 (08:52→17:34)
[2021-09-22] MEDS: Cholecalciferol (VIT D3) 25 MCG TABLET (1,000 UNITS) PO (08:54)
[2021-09-22] MEDS: Nystatin Powder 15gm Bottle 1 APPLIC TOPICAL ×2 (10:43→20:41)
[2021-09-22] MEDS: Furosemide 100 MG/10 ML Vial 80 MG IV ×2 (10:45→18:41)
[2021-09-22] MEDS: 0.9% Saline Lock 10 ML Syringe IV ×2 (10:45→18:41)
[2021-09-22] MEDS: Menthol/Lanolin/Calamine/Znox 113 GM Tube 1 APPLIC TOPICAL (10:46)
--- NOTE | 2021-09-22 13:01 | NURSING ---
PER THERAPY,IT IS OK TO USE ANKLE SUPPORT ON RT ANKLE WHEN UP AND OFF AT NIGHT. PT PERSONAL SUPPORT.
[2021-09-22] MEDS: Hydrocortisone 2.5% Crm 1 APPLIC TOPICAL (13:29)
--- NOTE | 2021-09-22 17:21 | PN.RENAL_ITS ---
Objective Data Objective Data Vital Signs: Vital Signs Temp Pulse Resp BP Pulse Ox O2 Del Method O2 Flow Rate 96.8 F L 76 20 H 121/56 H 93 Nasal Cannula 4 09/22/21 16:08 09/22/21 16:08 09/22/21 16:08 09/22/21 15:24 09/22/21 16:08 09/22/21 16:08 09/22/21 16:13 FiO2 35 09/07/21 09:37 Oxygen Flow Rate (L/min) 4 Oxygen Delivery Method Nasal Cannula Weight: 92.351 kg Body Mass Index (BMI) 38.9 Intake & Output: Intake and Output for Last 24 Hours 09/20/21 09/21/21 09/22/21 23:59 23:59 23:59 Intake Total 360 / 360 720 / 720 240 / 240 Output Total 2650 / 2650 600 / 600 2600 / 2600 Balance -2290 / -2290 120 / 120 -2360 / -2360 Medical Nutrition Assessment Dietitian: Malnutrition Criteria Met Start: 09/09/21 10:25 Freq: Status: Active Protocol: Document 09/16/21 16:21 SLA (Rec: 09/16/21 16:21 SLA [id number]) Nutrition Malnutrition Evidence of Malnutrition Exists Yes Malnutrition (moderate): Acute Illness/Injury Evidenced By Suboptimal Energy Intake ( Severe),Weight Loss (Moderate) Intake Problem Inadequate Oral Intake Status Inactive Problem Clinical Problem Acute Disease or Injury Related Malnutrition Etiology moderate - related to inadequate energy intake at meals Signs/Symptoms as evidenced by <50% po intake x 3-4 wks - has had variable wts and edema that is likely masking wt loss. Status Active Problem Recommendation Dietitian Recommendations/Changes Will continue Regular diet w/ small portions per res request and res right - consistency per MATERIAL SPECIALIST Will continue ensure enlive 8 oz w/ meals per res preference - will decrease to 4 oz at meals at time of follow up if res eating better and if agreeable to change. Will continue to monitor wt trends and changes in fluid status. Rec appetite stimulant to help encourage increased po intake . Will fortify foods as able to make foods more nutrient dense if consumed. Lab / Micro Data Result Diagrams: 09/19/21 06:11 09/21/21 05:01 Micro: Microbiology 09/17/21 20:45 Urine Catheter - Fuentes Urine Culture - Final Yeast, not Carla albicans 09/17/21 09:10 Nasal Secretion SARS-CoV-2 Antigen (Rapid) - Final 09/06/21 10:00 Blood Culture (Wb) - Right Forearm Blood Culture - Final No growth in 5 days. 09/06/21 10:12 Blood Culture (Wb) - Right Hand Blood Culture - Final No growth in 5 days. 09/10/21 04:18 Nasal Secretion SARS-CoV-2 Antigen (Rapid) - Final 09/06/21 12:30 Urine Catheter - Fuentes Urine Culture - Final Presumptive C albicans 09/06/21 10:27 Mucosa - Nose Respiratory Panel (PCR) - Final 09/06/21 10:15 Nasal Secretion SARS-CoV-2 Antigen (Rapid) - Final Physical Exam Narrative Alert awake oriented x 3 no obvious distress no pallor no icterus no JVD s1s2 no murmurs lungs clear abdomen soft no organomegaly +++ edema no cyanosis fuentes + Assessment & Plan Assessment/Plan (1) Chronic kidney disease, stage 4 (severe): PLAN: Serum creatinine is still close to prior baseline. The most recent serum creatinine from 09/21/2021 was 2.18 mg/dL which is an estimated GFR of 23 mL/min. Serum creatinine did increase compared to last week although she is on a higher dose of furosemide. The patient is without any uremic signs or symptoms. There is no need to stop furosemide at this point since she is still volume overloaded. We may need to tolerate higher serum creatinine to keep the patient compensated. I will recheck renal function later this week (2) Chronic combined systolic and diastolic CHF (congestive heart failure): PLAN: As mentioned above, continue current dose of furosemide with careful monitoring of volume status and renal function.
[2021-09-22] MEDS: Mirtazapine 15 MG Tablet 7.5 MG PO (20:31)
[2021-09-22] MEDS: MELATONIN 3 MG TABLET PO (20:31)
--- NOTE | 2021-09-22 20:32 | NURSING ---
Attempted to call Respiratory for breathing treatment at this time. No answer.
--- NOTE | 2021-09-22 20:42 | NURSING ---
Respiratory called again with no answer.
--- NOTE | 2021-09-22 20:46 | NURSING ---
Addendum entered by Delfina Gill 09/23/21 04:23: Call Dr. Rivers, she advised to use venti mask if needed to keep Oxygen up and she would assess patient in the morning. Original Note: During patient assessment, oxygen saturation bouncing between 82-84%. Oxygen on via nasal cannula at 4 LPM. Coarse crackles heard in bases. repositioned patient. Oxygen has increased to 87-90% on 4 LPM. Will collaborate will ADONIS Rico to decide next step.
--- NOTE | 2021-09-22 20:58 | NURSING ---
Asked Gang Drill Operator to let Respiratory know to call floor.
[2021-09-22] MEDS: Albuterol 2.5 MG/3 ML VIAL.NEB. INHALATION (21:10)
[2021-09-22] MEDS: oxyCODONE 5 MG Tablet PO (22:44)
[2021-09-22] MEDS: Acetaminophen 500 MG Tablet 1000 MG PO (22:44)
[2021-09-23] VITALS (9 sets, daily range): BP systolic 123–148; BP diastolic 60–69; PULSE 99–105; RESP 18; TEMP 36.9; O2SAT 91–96
[2021-09-23] MEDS: Levothyroxine 125 MCG Tablet PO (05:25)
[2021-09-23] MEDS: APIXABAN 2.5 MG TABLET PO ×2 (05:25→17:37)
[2021-09-23] MEDS: Pantoprazole Sodium 40 MG Tablet PO ×2 (05:25→17:39)
[2021-09-23] MEDS: Metoprolol Tartrate 25 MG Tablet PO ×3 (05:25→21:28)
[2021-09-23] MEDS: metOLazone 5 MG Tablet PO (05:25)
[2021-09-23] MEDS: guaiFENesin 600 MG Tablet PO ×2 (05:25→17:38)
[2021-09-23] MEDS: Clopidogrel Bisulfate 75 MG Tablet PO (05:25)
[2021-09-23 06:23] LABS: Anion Gap 5 (5-15); BUN 70 mg/dL (7-18); BUN/Creat Ratio 33.7 RATIO (10-20); Calcium,Total 9.1 mg/dL (8.5-10.1); Chloride 96 mmol/L (98-107); Creatinine, Serum 2.08 mg/dL (0.55-1.02); EST Glomerular Filtration Rate 24 mL/min (>60); Est Glom Filt Rate - Afr Amer 29 mL/min (>60); Estimated Creatinine Clearance 29.35 ml/min; Glucose 121 mg/dL (74-106); Potassium 3.6 mmol/L (3.5-5.1); Sodium Level 138 mmol/L (136-145)
[2021-09-23] MEDS: Gabapentin 300 MG Capsule PO ×3 (07:39→17:37)
[2021-09-23] MEDS: metroNIDAZOLE 500 MG Tablet PO ×3 (07:44→17:38)
[2021-09-23] MEDS: Multivitamins,Ther W-Minerals Tablet 1 TABLET PO (07:44)
[2021-09-23] MEDS: Cholecalciferol (VIT D3) 25 MCG TABLET (1,000 UNITS) PO (07:44)
[2021-09-23] MEDS: Ascorbic Acid 500 MG Tablet PO ×2 (07:44→17:37)
[2021-09-23] MEDS: Nystatin Powder 15gm Bottle 1 APPLIC TOPICAL ×2 (09:44→21:29)
[2021-09-23] MEDS: Furosemide 100 MG/10 ML Vial 80 MG IV ×2 (10:17→17:41)
[2021-09-23] MEDS: 0.9% Saline Lock 10 ML Syringe IV ×2 (10:18→17:47)
--- NOTE | 2021-09-23 10:34 | NURSING ---
spoke with Dr Ham via phone call regarding stop date for flagy. 10/01/21 order entered
--- NOTE | 2021-09-23 11:43 | CASEMGMT ---
Social Work Pt's dtr requested this worker speak with pt, and dtr in pt room. SW presented to pt room with all parties present. Discussed options for DC plans. Pt remains a x2 assist and expressed he can only minimally assist pt. states he cannot take care of her at home at her current level of care and pt agreed. Given the uncertainty of insurance approval and progress to be made by pt, all parties agreed to have SNF option as alternate plan. confirms pt is over resources currently for Medicaid eligibility. SW encouraged and dtr to contact life insurance policy to get shirley value and steps to liquidation, etc.Explained SNFs will require 30 days upon admission. Discussed further details of Medicaid coverage with spouse in community. Continued answering questions and assisting with options. Dtr and to make phone calls and choose SNFs for SW to refer to. Insurance NRD 09/24 and continued stay is not guaranteed. SW to continue to follow for DC planning. Kriss Coates, DESEAN GUYW
[2021-09-23] MEDS: Senna/Docusate Sodium 1 Tablet 2 TABLET PO (17:40)
[2021-09-23] MEDS: MELATONIN 3 MG TABLET PO (21:27)
[2021-09-23] MEDS: Mirtazapine 15 MG Tablet 7.5 MG PO (21:28)
[2021-09-23] MEDS: Menthol/Lanolin/Calamine/Znox 113 GM Tube 1 APPLIC TOPICAL (21:29)
[2021-09-23] MEDS: oxyCODONE 5 MG Tablet PO (21:32)
[2021-09-23] MEDS: Acetaminophen 500 MG Tablet 1000 MG PO (21:32)
[2021-09-24] VITALS (8 sets, daily range): BP systolic 112–151; BP diastolic 45–81; PULSE 76–106; RESP 14; TEMP 36.3; O2SAT 92–97
[2021-09-24] MEDS: APIXABAN 2.5 MG TABLET PO ×2 (04:47→16:59)
[2021-09-24] MEDS: Metoprolol Tartrate 25 MG Tablet PO ×3 (04:48→21:24)
[2021-09-24] MEDS: Pantoprazole Sodium 40 MG Tablet PO ×2 (04:49→16:59)
[2021-09-24] MEDS: guaiFENesin 600 MG Tablet PO ×2 (04:49→16:59)
[2021-09-24] MEDS: Senna/Docusate Sodium 1 Tablet 2 TABLET PO (04:50)
[2021-09-24] MEDS: metOLazone 5 MG Tablet PO (04:50)
[2021-09-24] MEDS: Clopidogrel Bisulfate 75 MG Tablet PO (04:50)
[2021-09-24] MEDS: Levothyroxine 125 MCG Tablet PO (04:51)
[2021-09-24] MEDS: Multivitamins,Ther W-Minerals Tablet 1 TABLET PO (08:48)
[2021-09-24] MEDS: Ascorbic Acid 500 MG Tablet PO ×2 (08:48→16:59)
[2021-09-24] MEDS: metroNIDAZOLE 500 MG Tablet PO ×3 (08:48→16:59)
[2021-09-24] MEDS: Cholecalciferol (VIT D3) 25 MCG TABLET (1,000 UNITS) PO (08:48)
[2021-09-24] MEDS: Gabapentin 300 MG Capsule PO ×3 (08:48→16:59)
--- NOTE | 2021-09-24 10:00 | NURSING ---
Dr. Livingsotn updated on pt's Carbon Dioxide lab. New order received for Blood gases and also received order to decrease Lasix to Daily.
[2021-09-24 10:41] LABS: Allen Test Positive; Base Excess 9 mmol/L (-2 to +2); Bicarbonate 32.8 mmol/L (22-26); PO2 42 mmHG (75-100); SITE R Radial; SO2 78 % (95-99); Total Carbon Dioxide 34 mmol/L; pCO2 48.4 mmHg (35-45); pH 7.44 (7.35-7.45)
[2021-09-24 10:43] LABS: Blood Gas Specimen Type VEN; O2 Delivery Device Nasal Can
--- NOTE | 2021-09-24 10:58 | NURSING ---
Dr. Livingston notified of pulmonary results. Dr Livingston ordered for O2 to be lower as much as possible and pulse ox of 89-90% is acceptable.
[2021-09-24] MEDS: Furosemide 100 MG/10 ML Vial 80 MG IV (11:27)
[2021-09-24] MEDS: 0.9% Saline Lock 10 ML Syringe IV (11:28)
[2021-09-24] MEDS: Nystatin Powder 15gm Bottle 1 APPLIC TOPICAL ×2 (11:40→21:24)
[2021-09-24] MEDS: Acetaminophen 500 MG Tablet 1000 MG PO (13:19)
--- NOTE | 2021-09-24 13:54 | NURSING ---
Daughter and pt updated on appt for Dr. Nettles 09/28/21 1083. Let family and pt know that pt will need wheel chair transportation and there is a fee. Daughter agreed to go ahead with appt. Updated Daughter on new orders at this time.
--- NOTE | 2021-09-24 16:39 | CASEMGMT ---
Social Work Pt and present in room. SW updated both that insurance approved with NRD 10/01 and will send to MD review if no progress is noted or if medically stabilized. Encouraged to have SNF choices provided to this worker by Tuesday to begin referrals. Pt and expressed understanding and appreciative of update. Kriss Coates, BAKERY PRODUCTS CHECKER TANK TRUCK LOADER
--- NOTE | 2021-09-24 16:51 | NURSING ---
Dr. Livingston updated on pt's Bicarb level of 27. Per Dr. Livingston would like blood gases done also decrease IV Lasix to daily.
[2021-09-24] MEDS: Menthol/Lanolin/Calamine/Znox 113 GM Tube 1 APPLIC TOPICAL (21:23)
[2021-09-24] MEDS: Mirtazapine 15 MG Tablet 7.5 MG PO (21:25)
[2021-09-24] MEDS: MELATONIN 3 MG TABLET PO (21:26)
[2021-09-24] MEDS: oxyCODONE 5 MG Tablet PO (21:28)
[2021-09-25] VITALS (7 sets, daily range): BP systolic 116–141; BP diastolic 58–85; PULSE 74–105; RESP 18; TEMP 35.9; O2SAT 2–91
[2021-09-25] MEDS: guaiFENesin 600 MG Tablet PO ×2 (04:29→17:14)
[2021-09-25] MEDS: Clopidogrel Bisulfate 75 MG Tablet PO (04:29)
[2021-09-25] MEDS: Metoprolol Tartrate 25 MG Tablet PO ×3 (04:29→20:08)
[2021-09-25] MEDS: metOLazone 5 MG Tablet PO (04:29)
[2021-09-25] MEDS: Levothyroxine 125 MCG Tablet PO (04:29)
[2021-09-25] MEDS: APIXABAN 2.5 MG TABLET PO ×2 (04:29→17:12)
[2021-09-25] MEDS: Pantoprazole Sodium 40 MG Tablet PO ×2 (04:29→17:14)
[2021-09-25] MEDS: oxyCODONE 5 MG Tablet PO (04:33)
[2021-09-25 05:41] LABS: Absolute Lymphocyte Count 0.92 X10^3/uL (0.83-4.51); Absolute Neutrophil Count 6.8 X10^3/uL (2.0-7.7); Basophil# 0.14 X10^3/uL; Basophil% 1.5 % (0-1); Eosinophil# 0.32 X10^3/uL; Eosinophils% 3.3 % (0-5); Hematocrit 31.3 % (37-47); Hemoglobin 10.3 g/dL (12.0-15.0); Lymphocyte # 0.92 X10^3/ul (0.83-4.51); Lymphocyte % 9.6 % (19-41); Mean Corp Hgb Conc 32.9 g/dL (32-36); Mean Corpuscular Hgb 31.8 pg (27.0-32.0); Mean Corpuscular Volume 96.6 fL (81-99); Mean Platelet Vol. 10.7 fl (6.2-12.0); Monocyte# 1.36 X10^3/uL; Monocyte% 14.1 % (0-10); NRBC Flagged by Analyzer 0 % (0-5); Neutrophil % 70.7 % (47-70); POSITIVE MORPHOLOGY YES; Platelet Count 342 K/mm3 (150-450); RBC Distribution Width CV 19.9 % (11.6-14.6); RBC Distribution Width SD 70.2 fl (35.1-43.9); Red Blood Count 3.24 M/mm3 (4.2-5.4); White Blood Count 9.6 K/mm3 (4.4-11.0)
[2021-09-25 05:44] LABS: Differential Indicated SCAN CRITERIA MET
[2021-09-25 06:01] LABS: Anion Gap 8 (5-15); BUN 70 mg/dL (7-18); BUN/Creat Ratio 39.3 RATIO (10-20); Calcium,Total 8.7 mg/dL (8.5-10.1); Chloride 90 mmol/L (98-107); Creatinine, Serum 1.78 mg/dL (0.55-1.02); EST Glomerular Filtration Rate 29 mL/min (>60); Est Glom Filt Rate - Afr Amer 35 mL/min (>60); Estimated Creatinine Clearance 33.09 ml/min; Glucose 126 mg/dL (74-106); Potassium 3.5 mmol/L (3.5-5.1); Sodium Level 136 mmol/L (136-145)
[2021-09-25 06:04] LABS: Anisocytosis 2+
--- NOTE | 2021-09-25 07:50 | NURSING ---
This Nurse was called to pt's room d/t pt choking on breakfast. Pt able to clear food. Dr. Livingston updated and came to pt's room and ordered a Chest X-ray. Will continue to Monitor.
--- NOTE | 2021-09-25 08:22 | RAD_ITS ---
INDICATION: Aspiration, hypoxia. EXAMINATION/TECHNIQUE: X-RAY - XR Chest 2 Views COMPARISON: Chest radiograph from 09/18/2021 FINDINGS: Support devices: None. Similar extent and distribution of patchy bilateral airspace opacities. Slight worsening of bilateral pulmonary edema. Stable small right pleural effusion. No sizable pneumothorax. Stable cardiomegaly. Stable sternotomy postoperative changes. Bones and soft tissues are unchanged. RAD/Chest PA and Lateral IMPRESSION: 1. Slight worsening of bilateral pulmonary edema. 2. Stable bilateral airspace opacities which could relate to atelectasis and/or pneumonia. 3. Stable small right pleural effusion. 4. Stable cardiomegaly. Electronically Signed: Braulio Luong, at 9:19 EDT ,
[2021-09-25] MEDS: Cholecalciferol (VIT D3) 25 MCG TABLET (1,000 UNITS) PO (08:51)
[2021-09-25] MEDS: Multivitamins,Ther W-Minerals Tablet 1 TABLET PO (08:51)
[2021-09-25] MEDS: Gabapentin 300 MG Capsule PO ×3 (08:51→17:13)
[2021-09-25] MEDS: metroNIDAZOLE 500 MG Tablet PO ×3 (08:51→17:13)
[2021-09-25] MEDS: Ascorbic Acid 500 MG Tablet PO ×2 (08:58→17:12)
[2021-09-25] MEDS: Acetaminophen 500 MG Tablet 1000 MG PO (09:01)
--- NOTE | 2021-09-25 09:32 | PCM.PN.REN ---
Objective Data Objective Data Vital Signs: Vital Signs Temp Pulse Resp BP Pulse Ox O2 Del Method O2 Flow Rate 97.4 F L 91 14 131/58 H 90 Nasal Cannula 2 09/24/21 14:00 09/25/21 04:29 09/24/21 14:00 09/25/21 04:29 09/25/21 07:48 09/25/21 07:48 09/25/21 09:13 FiO2 35 09/07/21 09:37 Oxygen Flow Rate (L/min) 2 Oxygen Delivery Method Nasal Cannula Weight: 89.103 kg Body Mass Index (BMI) 38.9 Intake & Output: Intake and Output for Last 24 Hours 09/23/21 09/24/21 09/25/21 23:59 23:59 23:59 Intake Total 520 / 520 240 / 240 60 / 60 Output Total 2375 / 2375 300 / 300 1300 / 1300 Balance -1855 / -1855 -60 / -60 -1240 / -1240 Medical Nutrition Assessment Dietitian: Malnutrition Criteria Met Start: 09/09/21 10:25 Freq: Status: Active Protocol: Document 09/23/21 15:47 SLA (Rec: 09/23/21 15:47 SLA [id number]) Nutrition Malnutrition Evidence of Malnutrition Exists Yes Malnutrition (moderate): Acute Illness/Injury Evidenced By Suboptimal Energy Intake ( Severe),Weight Loss (Moderate) Intake Problem Inadequate Oral Intake Status Inactive Problem Clinical Problem Acute Disease or Injury Related Malnutrition Etiology moderate - related to inadequate energy intake at meals and res having issues w/ generalized pain Signs/Symptoms as evidenced by <50% po intake x month - has had variable wts and edema that is likely masking wt loss. Status Active Problem Recommendation Dietitian Recommendations/Changes Will continue Regular diet w/ small portions per res request and res right - consistency per CIGARETTE LIGHTER REPAIRER Will continue ensure enlive 8 oz and ensure pudding w/ meals per res preference - will decrease to 4 oz at meals at time of follow up if res eating better and if agreeable to change. Will continue to monitor wt trends and changes in fluid status. Will continue appetite stimulant to help encourage increased po intake. Will continue to fortify foods as able to make foods more nutrient dense if consumed. Lab / Micro Data Result Diagrams: 09/25/21 05:10 09/25/21 05:10 Labs: Laboratory Results - last 24 hr 09/25/21 05:10: WBC 9.6, RBC 3.24 L, Hgb 10.3 L, Hct 31.3 L, MCV 96.6, MCH 31.8, MCHC 32.9, RDW Std Deviation 70.2 H, RDW Coeff of Leatha 19.9 H, Plt Count 342, MPV 10.7, Immature Gran % (Auto) 0.800, Neut % (Auto) 70.7 H, Lymph % (Auto) 9.6 L, [place] % (Auto) 14.1 H, Eos % (Auto) 3.3, Baso % (Auto) 1.5 H, Absolute Neuts (auto) 6.8, Absolute Lymphs (auto) 0.92, Nucleated RBC % 0, Anisocytosis 2+ 09/25/21 05:10: Sodium 136, Potassium 3.5, Chloride 90 L, Carbon Dioxide 38.0 H, Anion Gap 8, BUN 70 H, Creatinine 1.78 H, Estim Creat Clear Calc 33.09, Est GFR (MDRD) Af Amer 35 L, Est GFR (MDRD) Non-Af 29 L, BUN/Creatinine Ratio 39.3 H, Glucose 126 H, Calcium 8.7 Micro: Microbiology 09/24/21 14:27 Nasal Secretion SARS-CoV-2 Antigen (Rapid) - Final 09/17/21 20:45 Urine Catheter - [place] Urine Culture - Final Yeast, not Carla albicans 09/17/21 09:10 Nasal Secretion SARS-CoV-2 Antigen (Rapid) - Final 09/06/21 10:00 Blood Culture (Wb) - Right Forearm Blood Culture - Final No growth in 5 days. 09/06/21 10:12 Blood Culture (Wb) - Right Hand Blood Culture - Final No growth in 5 days. 09/10/21 04:18 Nasal Secretion SARS-CoV-2 Antigen (Rapid) - Final 09/06/21 12:30 Urine Catheter - [place] Urine Culture - Final Presumptive C albicans 09/06/21 10:27 Mucosa - Nose Respiratory Panel (PCR) - Final 09/06/21 10:15 Nasal Secretion SARS-CoV-2 Antigen (Rapid) - Final ABG Data ABG results: ABG 09/24/21 10:33 Specimen Type YULIYA Sample Site R Radial pH 7.44 Bicarbonate Actual 32.8 H Total CO2 34 Base Excess 9 H O2 Saturation 78 L ABG pCO2 48.4 H ABG pO2 42 L Shaun Test Positive O2 Delivery Device Nasal Can Liter Flow 5.0 Crit Call To/Read Back Yes Blood Gas Notified Whom SEMENTI Radiography Diagnostic Testing: Radiology Impression Chest X-Ray 09/25/21 08:22 IMPRESSION: 1. Slight worsening of bilateral pulmonary edema. 2. Stable bilateral airspace opacities which could relate to atelectasis and/or pneumonia. 3. Stable small right pleural effusion. 4. Stable cardiomegaly. Electronically Signed: Braulio Luong, at 9:19 EDT , Assessment & Plan Assessment/Plan (1) Chronic kidney disease, stage 4 (severe): (2) Chronic combined systolic and diastolic CHF (congestive heart failure):
--- NOTE | 2021-09-25 09:37 | PCM.PN.REN ---
Subjective Subjective Following for chronic kidney disease. The patient denies increasing shortness of breath. She feels better overall. There is less edema of the lower extremities. Objective Data Objective Data Vital Signs: Vital Signs Temp Pulse Resp BP Pulse Ox O2 Del Method O2 Flow Rate 97.4 F L 91 14 131/58 H 90 Nasal Cannula 2 09/24/21 14:00 09/25/21 04:29 09/24/21 14:00 09/25/21 04:29 09/25/21 07:48 09/25/21 07:48 09/25/21 09:13 FiO2 35 09/07/21 09:37 Oxygen Flow Rate (L/min) 2 Oxygen Delivery Method Nasal Cannula Weight: 89.103 kg Body Mass Index (BMI) 38.9 Intake & Output: Intake and Output for Last 24 Hours 09/23/21 09/24/21 09/25/21 23:59 23:59 23:59 Intake Total 520 / 520 240 / 240 60 / 60 Output Total 2375 / 2375 300 / 300 1300 / 1300 Balance -1855 / -1855 -60 / -60 -1240 / -1240 Medical Nutrition Assessment Dietitian: Malnutrition Criteria Met Start: 09/09/21 10:25 Freq: Status: Active Protocol: Document 09/23/21 15:47 SLA (Rec: 09/23/21 15:47 SLA [id number]) Nutrition Malnutrition Evidence of Malnutrition Exists Yes Malnutrition (moderate): Acute Illness/Injury Evidenced By Suboptimal Energy Intake ( Severe),Weight Loss (Moderate) Intake Problem Inadequate Oral Intake Status Inactive Problem Clinical Problem Acute Disease or Injury Related Malnutrition Etiology moderate - related to inadequate energy intake at meals and res having issues w/ generalized pain Signs/Symptoms as evidenced by <50% po intake x month - has had variable wts and edema that is likely masking wt loss. Status Active Problem Recommendation Dietitian Recommendations/Changes Will continue Regular diet w/ small portions per res request and res right - consistency per CAREER DEVELOPMENT COORDINATOR/TEACHER Will continue ensure enlive 8 oz and ensure pudding w/ meals per res preference - will decrease to 4 oz at meals at time of follow up if res eating better and if agreeable to change. Will continue to monitor wt trends and changes in fluid status. Will continue appetite stimulant to help encourage increased po intake. Will continue to fortify foods as able to make foods more nutrient dense if consumed. Lab / Micro Data Result Diagrams: 09/25/21 05:10 09/25/21 05:10 Labs: Laboratory Results - last 24 hr 09/25/21 05:10: WBC 9.6, RBC 3.24 L, Hgb 10.3 L, Hct 31.3 L, MCV 96.6, MCH 31.8, MCHC 32.9, RDW Std Deviation 70.2 H, RDW Coeff of Leatha 19.9 H, Plt Count 342, MPV 10.7, Immature Gran % (Auto) 0.800, Neut % (Auto) 70.7 H, Lymph % (Auto) 9.6 L, [place] % (Auto) 14.1 H, Eos % (Auto) 3.3, Baso % (Auto) 1.5 H, Absolute Neuts (auto) 6.8, Absolute Lymphs (auto) 0.92, Nucleated RBC % 0, Anisocytosis 2+ 09/25/21 05:10: Sodium 136, Potassium 3.5, Chloride 90 L, Carbon Dioxide 38.0 H, Anion Gap 8, BUN 70 H, Creatinine 1.78 H, Estim Creat Clear Calc 33.09, Est GFR (MDRD) Af Amer 35 L, Est GFR (MDRD) Non-Af 29 L, BUN/Creatinine Ratio 39.3 H, Glucose 126 H, Calcium 8.7 Micro: Microbiology 09/24/21 14:27 Nasal Secretion SARS-CoV-2 Antigen (Rapid) - Final 09/17/21 20:45 Urine Catheter - [place] Urine Culture - Final Yeast, not Carla albicans 09/17/21 09:10 Nasal Secretion SARS-CoV-2 Antigen (Rapid) - Final 09/06/21 10:00 Blood Culture (Wb) - Right Forearm Blood Culture - Final No growth in 5 days. 09/06/21 10:12 Blood Culture (Wb) - Right Hand Blood Culture - Final No growth in 5 days. 09/10/21 04:18 Nasal Secretion SARS-CoV-2 Antigen (Rapid) - Final 09/06/21 12:30 Urine Catheter - [place] Urine Culture - Final Presumptive C albicans 09/06/21 10:27 Mucosa - Nose Respiratory Panel (PCR) - Final 09/06/21 10:15 Nasal Secretion SARS-CoV-2 Antigen (Rapid) - Final ABG Data ABG results: ABG 09/24/21 10:33 Specimen Type YULIYA Sample Site R Radial pH 7.44 Bicarbonate Actual 32.8 H Total CO2 34 Base Excess 9 H O2 Saturation 78 L ABG pCO2 48.4 H ABG pO2 42 L Shaun Test Positive O2 Delivery Device Nasal Can Liter Flow 5.0 Crit Call To/Read Back Yes Blood Gas Notified Whom SEMENTI Radiography Diagnostic Testing: Radiology Impression Chest X-Ray 09/25/21 08:22 IMPRESSION: 1. Slight worsening of bilateral pulmonary edema. 2. Stable bilateral airspace opacities which could relate to atelectasis and/or pneumonia. 3. Stable small right pleural effusion. 4. Stable cardiomegaly. Electronically Signed: Braulio Luong, at 9:19 EDT , Physical Exam Narrative General: Alert and oriented x3 in no apparent distress Heart: Normal S1, S2. No rubs, murmurs or gallops. Lungs: Mild decreased breath sound at bases otherwise clear. Abdomen: soft, NT. Extremity: 2+ edema. Assessment & Plan Assessment/Plan (1) Chronic kidney disease, stage 4 (severe): PLAN: The patient has chronic kidney disease stage IIIb-IV. Renal function has been stable. Creatinine has been anywhere between 2.0-2 2.18 mg/dL in the last week. Renal function is better today after cutting back on Lasix. Creatinine is 1.78. Continue current dose of Lasix with monitoring of volume status and electrolytes. Recheck renal function again next week. (2) Chronic combined systolic and diastolic CHF (congestive heart failure): PLAN: The patient is more compensated subjectively. There is less edema and dyspnea with activities. Agree with cutting back on the frequency of IV Lasix. Continue current dose of Lasix and metolazone. Continue to watch renal function, electrolytes, and acid-base status.
[2021-09-25] MEDS: Furosemide 100 MG/10 ML Vial 80 MG IV (10:55)
[2021-09-25] MEDS: Nystatin Powder 15gm Bottle 1 APPLIC TOPICAL ×2 (10:56→20:09)
[2021-09-25] MEDS: 0.9% Saline Lock 10 ML Syringe IV (10:58)
--- NOTE | 2021-09-25 11:22 | NURSING ---
Pt had appt with Vivian WINKLER this Am no new orders at this time.
--- NOTE | 2021-09-25 11:30 | NURSING ---
Updated Dr. Livingston on pt's Chest X-ray N.O. For Levaquin 500mg PO.
[2021-09-25] MEDS: levoFLOXacin 500 MG Tablet PO (13:11)
[2021-09-25] MEDS: Menthol/Lanolin/Calamine/Znox 113 GM Tube 1 APPLIC TOPICAL (20:07)
[2021-09-25] MEDS: MELATONIN 3 MG TABLET PO (20:09)
[2021-09-25] MEDS: Mirtazapine 15 MG Tablet 7.5 MG PO (20:10)
[2021-09-26] VITALS (7 sets, daily range): BP systolic 117–126; BP diastolic 51–63; PULSE 59–102; RESP 18–20; TEMP 36.7; O2SAT 88–94
[2021-09-26] MEDS: Acetaminophen 500 MG Tablet 1000 MG PO ×2 (03:10→22:02)
[2021-09-26] MEDS: oxyCODONE 5 MG Tablet PO ×2 (03:10→22:02)
[2021-09-26] MEDS: levoFLOXacin 250 MG Tablet PO (04:58)
[2021-09-26] MEDS: metOLazone 5 MG Tablet PO (05:00)
[2021-09-26] MEDS: APIXABAN 2.5 MG TABLET PO ×2 (05:00→17:40)
[2021-09-26] MEDS: Clopidogrel Bisulfate 75 MG Tablet PO (05:02)
[2021-09-26] MEDS: guaiFENesin 600 MG Tablet PO ×2 (05:02→17:39)
[2021-09-26] MEDS: Senna/Docusate Sodium 1 Tablet 2 TABLET PO (05:03)
[2021-09-26] MEDS: Pantoprazole Sodium 40 MG Tablet PO ×2 (05:03→17:39)
[2021-09-26] MEDS: Levothyroxine 125 MCG Tablet PO (05:03)
--- NOTE | 2021-09-26 08:02 | CPS ---
pt increased to 3 lpm. Sat to 90%. Nurse made aware of change
[2021-09-26] MEDS: Gabapentin 300 MG Capsule PO ×3 (08:03→17:38)
[2021-09-26] MEDS: Ascorbic Acid 500 MG Tablet PO ×2 (08:04→17:41)
[2021-09-26] MEDS: Multivitamins,Ther W-Minerals Tablet 1 TABLET PO (08:04)
[2021-09-26] MEDS: metroNIDAZOLE 500 MG Tablet PO ×3 (08:04→17:42)
[2021-09-26] MEDS: Cholecalciferol (VIT D3) 25 MCG TABLET (1,000 UNITS) PO (08:05)
[2021-09-26] MEDS: Menthol/Lanolin/Calamine/Znox 113 GM Tube 1 APPLIC TOPICAL ×2 (10:54→22:04)
[2021-09-26] MEDS: 0.9% Saline Lock 10 ML Syringe IV (10:54)
[2021-09-26] MEDS: Furosemide 100 MG/10 ML Vial 80 MG IV (10:55)
[2021-09-26] MEDS: Nystatin Powder 15gm Bottle 1 APPLIC TOPICAL ×2 (11:02→22:05)
[2021-09-26] MEDS: Metoprolol Tartrate 25 MG Tablet PO ×2 (14:20→22:02)
[2021-09-26] MEDS: MELATONIN 3 MG TABLET PO (22:02)
[2021-09-26] MEDS: Mirtazapine 15 MG Tablet 7.5 MG PO (22:02)
[2021-09-27] MEDS: Psyllium 1 PACKET PO (05:29)
[2021-09-27] MEDS: oxyCODONE 5 MG Tablet PO (05:29)
[2021-09-27] MEDS: levoFLOXacin 250 MG Tablet PO (05:30)
[2021-09-27] MEDS: guaiFENesin 600 MG Tablet PO ×2 (05:30→18:19)
[2021-09-27] MEDS: Pantoprazole Sodium 40 MG Tablet PO ×2 (05:30→18:20)
[2021-09-27] MEDS: APIXABAN 2.5 MG TABLET PO ×2 (05:30→18:21)
[2021-09-27] MEDS: Levothyroxine 125 MCG Tablet PO (05:30)
[2021-09-27] MEDS: Clopidogrel Bisulfate 75 MG Tablet PO (05:30)
[2021-09-27] MEDS: Senna/Docusate Sodium 1 Tablet 2 TABLET PO ×2 (05:30→18:20)
[2021-09-27 05:31] VITALS: BP 114/57; PULSE 108
[2021-09-27] MEDS: Metoprolol Tartrate 25 MG Tablet PO ×3 (05:31→20:43)
[2021-09-27] MEDS: metOLazone 5 MG Tablet PO (05:31)
[2021-09-27 08:38] VITALS: O2SAT 93
[2021-09-27] MEDS: Gabapentin 300 MG Capsule PO ×3 (08:39→18:19)
[2021-09-27] MEDS: metroNIDAZOLE 500 MG Tablet PO ×3 (08:41→18:21)
[2021-09-27] MEDS: Ascorbic Acid 500 MG Tablet PO ×2 (08:41→18:21)
[2021-09-27] MEDS: Multivitamins,Ther W-Minerals Tablet 1 TABLET PO (08:42)
[2021-09-27] MEDS: Cholecalciferol (VIT D3) 25 MCG TABLET (1,000 UNITS) PO (08:42)
[2021-09-27 09:24] VITALS: PULSE 78; RESP 20
[2021-09-27] MEDS: Albuterol 2.5 MG/3 ML VIAL.NEB. INHALATION (09:24)
[2021-09-27] MEDS: Nystatin Powder 15gm Bottle 1 APPLIC TOPICAL ×2 (10:02→20:44)
[2021-09-27] MEDS: Furosemide 100 MG/10 ML Vial 80 MG IV (10:06)
[2021-09-27] MEDS: 0.9% Saline Lock 10 ML Syringe IV (10:06)
[2021-09-27] MEDS: Acetaminophen 500 MG Tablet 1000 MG PO (13:43)
[2021-09-27 13:48] VITALS: BP 115/53; PULSE 102
[2021-09-27 13:53] VITALS: BP 115/53; PULSE 102; RESP 18; TEMP 36.9; O2SAT 91
--- NOTE | 2021-09-27 18:48 | NURSING ---
WHILE TRANSFERRING PT TO B[facility] THIS NURSE NOTICED A SOFTBALL SIZE AREA OF BLOOD TO LEFT HIP AREA ON ATTENDS. WHILE ACCESSING STRINGY BLOOD CLOT NOTICED. LOOKED AT HIP AREA AND ONLY FOUND SMALL PIN HOLE AREA THAT WAS BLEEDING. HAD ADONIS BRO INTO ROOM. CLEANED AREA UP AND APPLIED ABD. NOTE LEFT FOR TO ACCESS.
--- NOTE | 2021-09-27 18:59 | NURSING ---
CALLED AND UPDATED DAUGHTER ON AREA OF BLEEDING.
[2021-09-27] MEDS: Menthol/Lanolin/Calamine/Znox 113 GM Tube 1 APPLIC TOPICAL (20:42)
[2021-09-27 20:43] VITALS: BP 116/61; PULSE 85
[2021-09-27] MEDS: MELATONIN 3 MG TABLET PO (20:44)
[2021-09-27] MEDS: Mirtazapine 15 MG Tablet 7.5 MG PO (20:44)
[2021-09-27] MEDS: hydrOXYzine 10 MG Tablet PO (23:09)
[2021-09-28] MEDS: metOLazone 5 MG Tablet PO (05:51)
[2021-09-28] MEDS: APIXABAN 2.5 MG TABLET PO (05:51)
[2021-09-28] MEDS: levoFLOXacin 250 MG Tablet PO (05:51)
[2021-09-28 05:52] VITALS: BP 143/65; PULSE 88
[2021-09-28] MEDS: guaiFENesin 600 MG Tablet PO ×2 (05:52→17:00)
[2021-09-28] MEDS: Clopidogrel Bisulfate 75 MG Tablet PO (05:52)
[2021-09-28] MEDS: Senna/Docusate Sodium 1 Tablet 2 TABLET PO ×2 (05:52→17:00)
[2021-09-28] MEDS: Levothyroxine 125 MCG Tablet PO (05:52)
[2021-09-28] MEDS: Pantoprazole Sodium 40 MG Tablet PO ×2 (05:52→17:00)
[2021-09-28] MEDS: Metoprolol Tartrate 25 MG Tablet PO ×3 (05:52→20:20)
[2021-09-28 05:55] LABS: Anion Gap 8 (5-15); BUN 70 mg/dL (7-18); BUN/Creat Ratio 34.5 RATIO (10-20); Calcium,Total 8.8 mg/dL (8.5-10.1); Chloride 90 mmol/L (98-107); Creatinine, Serum 2.03 mg/dL (0.55-1.02); EST Glomerular Filtration Rate 25 mL/min (>60); Est Glom Filt Rate - Afr Amer 30 mL/min (>60); Estimated Creatinine Clearance 28.95 ml/min; Glucose 126 mg/dL (74-106); Potassium 3.6 mmol/L (3.5-5.1); Sodium Level 136 mmol/L (136-145)
[2021-09-28 07:15] VITALS: O2SAT 93
[2021-09-28] MEDS: Ascorbic Acid 500 MG Tablet PO ×2 (07:36→16:53)
[2021-09-28] MEDS: Multivitamins,Ther W-Minerals Tablet 1 TABLET PO (07:36)
[2021-09-28] MEDS: metroNIDAZOLE 500 MG Tablet PO ×3 (07:36→16:54)
[2021-09-28] MEDS: Cholecalciferol (VIT D3) 25 MCG TABLET (1,000 UNITS) PO (07:36)
[2021-09-28] MEDS: Gabapentin 300 MG Capsule PO ×3 (07:36→16:54)
[2021-09-28] MEDS: Furosemide 100 MG/10 ML Vial 80 MG IV (11:50)
[2021-09-28] MEDS: Nystatin Powder 15gm Bottle 1 APPLIC TOPICAL ×2 (11:50→20:25)
[2021-09-28] MEDS: Menthol/Lanolin/Calamine/Znox 113 GM Tube 1 APPLIC TOPICAL ×2 (11:51→20:25)
[2021-09-28] MEDS: 0.9% Saline Lock 10 ML Syringe IV (12:12)
--- NOTE | 2021-09-28 13:33 | WOUNDNOTE ---
Pt returned from appt with Dr Nettles. patient started having some drainage from the left hip incision this weekend. there is a small dehisced area noted that measures approx 0.5cm x 0.6cm. there was approx a quarter size amount of old bloody drainage noted on the old dressing. no periwound erythema noted. patient still with moderate edema. cleansed site and pat dry. applied a new dry dressing. will monitor. will consider Aquacel AG to the small wound, but for now applied a dry dressing with tape. see wound photo.
[2021-09-28 14:00] VITALS: BP 139/64; PULSE 88; RESP 18; TEMP 36.8; O2SAT 94
--- NOTE | 2021-09-28 14:08 | WOUNDNOTE ---
wound photo: left hip
[2021-09-28 14:14] VITALS: BP 121/52; PULSE 91
[2021-09-28] MEDS: Petrolatum 33% Tube 1 APPLIC TOPICAL (17:59)
[2021-09-28] MEDS: hydrOXYzine 10 MG Tablet PO (20:19)
[2021-09-28 20:20] VITALS: BP 124/60; PULSE 112
[2021-09-28] MEDS: MELATONIN 3 MG TABLET PO (20:21)
[2021-09-28] MEDS: Mirtazapine 15 MG Tablet 7.5 MG PO (20:21)
[2021-09-29 05:19] VITALS: BP 115/54; PULSE 108
[2021-09-29] MEDS: Metoprolol Tartrate 25 MG Tablet PO ×3 (05:19→21:12)
[2021-09-29] MEDS: levoFLOXacin 250 MG Tablet PO (05:19)
[2021-09-29] MEDS: guaiFENesin 600 MG Tablet PO ×2 (05:20→18:27)
[2021-09-29] MEDS: Pantoprazole Sodium 40 MG Tablet PO ×2 (05:20→18:27)
[2021-09-29] MEDS: Clopidogrel Bisulfate 75 MG Tablet PO (05:20)
[2021-09-29] MEDS: Levothyroxine 125 MCG Tablet PO (05:21)
[2021-09-29] MEDS: metOLazone 5 MG Tablet PO (05:21)
[2021-09-29] MEDS: Senna/Docusate Sodium 1 Tablet 2 TABLET PO ×2 (05:22→18:27)
[2021-09-29] MEDS: Petrolatum 33% Tube 1 APPLIC TOPICAL ×2 (05:23→18:30)
[2021-09-29] MEDS: metroNIDAZOLE 500 MG Tablet PO (08:41)
[2021-09-29] MEDS: Multivitamins,Ther W-Minerals Tablet 1 TABLET PO (08:42)
[2021-09-29] MEDS: Ascorbic Acid 500 MG Tablet PO ×2 (08:42→18:26)
[2021-09-29] MEDS: Cholecalciferol (VIT D3) 25 MCG TABLET (1,000 UNITS) PO (08:42)
[2021-09-29] MEDS: Acetaminophen 500 MG Tablet 1000 MG PO ×2 (08:46→21:11)
[2021-09-29] MEDS: Gabapentin 300 MG Capsule PO ×3 (08:46→18:25)
--- NOTE | 2021-09-29 09:41 | PCM.PN.ID ---
Physical Exam Narrative Feeling ok, no rash, no fever, no n/v/d. Const alert and no apparent distress Resp normal air movement and clear to auscultation bilaterally Cardio regular rate and regular rhythm GI soft to palpation, non-tender and non-distended Skin no rashes or lesions noted ID ID: Route of nutrition/ use of supplements: [] Nutritional Intake: [] IV Site: [] [place] Catheter: [] Assessment & Plan Assessment/Plan (1) Left hip prosthetic joint infection: PLAN: s/p OR 08/20/[address] Nettles for I&D and revision of L hip.? One surg cx with proteus and bacteroides.? Now course complicated by worsening EL. 08/24 changed abx to ceftriaxone.? Neph consulted.? Plan on 6 weeks iv ertapenem, stop date 10/01/21.? Had rash with ceftriaxone. Developed hypoxia, vanc added, covid and resp pcr panel neg. O2 slowly improving. Not clear if infectious or cardiac in origin. Now with rash on trunk, stopped vanc, not improved, so on 09/10 stopped ertapenem and changed to po cipro/flagyl. Rash was still worsening despite change. Possible reaction with amiodarone, now stopped by primary team, rash resolved. Not clear if rash was due to abx or amiodarone. Will stop levaquin/flagyl, change to augmentin for planned 6-12 month course. Counseled her to monitor for rash. Will follow. ID followup in 2 months after discharge.
--- NOTE | 2021-09-29 09:43 | NURSING ---
dr laboy updated, pt not improving. he spoke with pt this AM and pt felt she is improving, she is not ready for hospice.
[2021-09-29] MEDS: Nystatin Powder 15gm Bottle 1 APPLIC TOPICAL ×2 (09:48→21:16)
[2021-09-29] MEDS: 0.9% Saline Lock 10 ML Syringe IV (10:01)
[2021-09-29] MEDS: Furosemide 100 MG/10 ML Vial 80 MG IV (10:01)
--- NOTE | 2021-09-29 10:10 | NURSING ---
daughter in room and pt stated she only got oatmeal and ensure for brkfst. daughter states she fills out menus and she had more than that. INSTRUMENT SETTER that supervised her eating stated she ate most of her oatmeal & refused eating the banana. daughter questioned mother there was a banana, you just said you only had oatmeal then pt responded yes, I did but I didnt want it, so I had her get rid of it
--- NOTE | 2021-09-29 10:33 | NURSING ---
PT AND FAMILY UPDATED ON A STAFF MEMBER TESTED POSITIVE FOR COVID.
--- NOTE | 2021-09-29 11:44 | CASEMGMT ---
Addendum entered by Kriss Coates 09/30/21 16:12: [facility] accepted pt. Notified pt and dtr. Addendum entered by Kriss Coates 09/29/21 14:48: Received return phone call. Dtr explained the life insurance policy would not talk to dtr or pt's without permission from pt. decided since there are funds to use for a SNF in their bank account, those funds will be used first. SW expressed understanding and reiterated, where to get the funds are a personal preference, but if pt would need Medicaid, the life insurance policy will be liquidated. Dtr expressed understanding. Dtr/ requested referral to [facility]. SW agreed but encouraged to provide 1-2 more SNF choices. Dtr understood. SW made referral to [facility] via email. Will continue to follow. Original Note: Social Work Left message with dtr to f/u on SNF choices. DESEAN Neff
[2021-09-29 14:00] VITALS: BP 111/63; PULSE 78; RESP 16; TEMP 36.2; O2SAT 95
[2021-09-29 14:16] VITALS: BP 111/63; PULSE 78
[2021-09-29 18:11] VITALS: O2SAT 94
[2021-09-29] MEDS: oxyCODONE 5 MG Tablet PO (21:11)
[2021-09-29 21:12] VITALS: BP 116/66; PULSE 93
[2021-09-29] MEDS: Mirtazapine 15 MG Tablet 7.5 MG PO (21:12)
[2021-09-29] MEDS: Menthol/Lanolin/Calamine/Znox 113 GM Tube 1 APPLIC TOPICAL (21:18)
[2021-09-30] MEDS: hydrOXYzine 10 MG Tablet PO (00:07)
[2021-09-30 05:00] VITALS: BP 102/52; PULSE 103
[2021-09-30] MEDS: Senna/Docusate Sodium 1 Tablet 2 TABLET PO ×2 (05:00→17:16)
[2021-09-30] MEDS: Pantoprazole Sodium 40 MG Tablet PO ×2 (05:00→17:16)
[2021-09-30] MEDS: Clopidogrel Bisulfate 75 MG Tablet PO (05:00)
[2021-09-30] MEDS: guaiFENesin 600 MG Tablet PO ×2 (05:00→17:16)
[2021-09-30] MEDS: metOLazone 5 MG Tablet PO (05:01)
[2021-09-30] MEDS: Levothyroxine 125 MCG Tablet PO (05:01)
[2021-09-30] MEDS: Petrolatum 33% Tube 1 APPLIC TOPICAL ×2 (05:01→17:18)
[2021-09-30 06:32] VITALS: O2SAT 94
[2021-09-30] MEDS: Ascorbic Acid 500 MG Tablet PO ×2 (08:27→15:58)
[2021-09-30] MEDS: Gabapentin 300 MG Capsule PO ×3 (08:27→17:15)
[2021-09-30] MEDS: Cholecalciferol (VIT D3) 25 MCG TABLET (1,000 UNITS) PO (08:27)
[2021-09-30] MEDS: Multivitamins,Ther W-Minerals Tablet 1 TABLET PO (08:27)
[2021-09-30] MEDS: Nystatin Powder 15gm Bottle 1 APPLIC TOPICAL ×2 (08:27→21:07)
[2021-09-30 09:13] VITALS: BP 137/71; PULSE 106; RESP 16; TEMP 36.3; O2SAT 94
[2021-09-30] MEDS: Acetaminophen 500 MG Tablet 1000 MG PO (09:14)
[2021-09-30] MEDS: oxyCODONE 5 MG Tablet PO ×2 (09:15→15:57)
[2021-09-30] MEDS: Menthol/Lanolin/Calamine/Znox 113 GM Tube 1 APPLIC TOPICAL ×2 (09:17→21:06)
[2021-09-30] MEDS: 0.9% Saline Lock 10 ML Syringe IV (09:20)
[2021-09-30] MEDS: Furosemide 100 MG/10 ML Vial 80 MG IV (09:23)
[2021-09-30 13:36] VITALS: BP 117/59; PULSE 105; RESP 16; TEMP 36.8; O2SAT 96
[2021-09-30 13:39] VITALS: PULSE 105
[2021-09-30] MEDS: Metoprolol Tartrate 25 MG Tablet PO (13:39)
[2021-09-30] MEDS: Mirtazapine 15 MG Tablet 7.5 MG PO (21:02)
[2021-09-30] MEDS: MELATONIN 3 MG TABLET PO (21:02)
[2021-09-30 21:07] VITALS: BP 109/61; PULSE 93
[2021-10-01] MEDS: oxyCODONE 5 MG Tablet PO (04:12)
[2021-10-01] MEDS: Senna/Docusate Sodium 1 Tablet 2 TABLET PO (04:45)
[2021-10-01] MEDS: Levothyroxine 125 MCG Tablet PO (04:46)
[2021-10-01] MEDS: guaiFENesin 600 MG Tablet PO ×2 (04:46→17:24)
[2021-10-01] MEDS: Clopidogrel Bisulfate 75 MG Tablet PO (04:46)
[2021-10-01] MEDS: metOLazone 5 MG Tablet PO (04:46)
[2021-10-01 04:47] VITALS: BP 144/60; PULSE 108
[2021-10-01] MEDS: Pantoprazole Sodium 40 MG Tablet PO ×2 (04:47→17:24)
[2021-10-01] MEDS: Metoprolol Tartrate 25 MG Tablet PO ×3 (04:47→21:57)
[2021-10-01] MEDS: 0.9% Saline Lock 10 ML Syringe IV ×2 (04:55→10:44)
[2021-10-01 05:58] LABS: Albumin, Serum 2.4 g/dL (3.2-5.0); BUN 64 mg/dL (7-18); BUN/Creat Ratio 33.7 RATIO (10-20); Chloride 89 mmol/L (98-107); EST Glomerular Filtration Rate 27 mL/min (>60); Est Glom Filt Rate - Afr Amer 32 mL/min (>60); Estimated Creatinine Clearance 30.08 ml/min; Glucose 119 mg/dL (74-106); Phosphorus 3.3 mg/dL (2.5-4.9); Potassium 3.5 mmol/L (3.5-5.1); Sodium Level 135 mmol/L (136-145)
[2021-10-01 07:02] VITALS: O2SAT 94
[2021-10-01] MEDS: Multivitamins,Ther W-Minerals Tablet 1 TABLET PO (08:33)
[2021-10-01] MEDS: Ascorbic Acid 500 MG Tablet PO ×2 (08:33→17:23)
[2021-10-01] MEDS: Gabapentin 300 MG Capsule PO ×3 (08:33→17:27)
[2021-10-01] MEDS: Cholecalciferol (VIT D3) 25 MCG TABLET (1,000 UNITS) PO (08:34)
[2021-10-01] MEDS: Petrolatum 33% Tube 1 APPLIC TOPICAL ×2 (08:37→22:01)
[2021-10-01] MEDS: Hydrocortisone 2.5% Crm 1 APPLIC TOPICAL (08:42)
[2021-10-01] MEDS: Nystatin Powder 15gm Bottle 1 APPLIC TOPICAL ×2 (08:51→22:02)
[2021-10-01 10:00] VITALS: BP 136/63; PULSE 100
--- NOTE | 2021-10-01 10:23 | PCM.PN.REN ---
Subjective Subjective Following for EL on CKD Patient sitting in recliner chair. No complaints. Denies worsening lower extremity edema or shortness of breath. States appetite fair. Objective Data Objective Data Vital Signs: Vital Signs Temp Pulse Resp BP Pulse Ox O2 Del Method O2 Flow Rate 98.2 F 108 H 16 144/60 H 94 Nasal Cannula 2 09/30/21 13:36 10/01/21 04:47 09/30/21 13:36 10/01/21 04:47 10/01/21 07:02 10/01/21 07:02 10/01/21 07:02 FiO2 35 09/07/21 09:37 Oxygen Flow Rate (L/min) 2 Oxygen Delivery Method Nasal Cannula Weight: 86.455 kg Body Mass Index (BMI) 38.9 Intake & Output: Intake and Output for Last 24 Hours 09/29/21 09/30/21 10/01/21 23:59 23:59 23:59 Intake Total 360 / 360 720 / 720 240 / 240 Output Total 1300 / 1300 2275 / 2275 900 / 900 Balance -940 / -940 -1555 / -1555 -660 / -660 Medical Nutrition Assessment Dietitian: Malnutrition Criteria Met Start: 09/09/21 10:25 Freq: Status: Active Protocol: Document 09/30/21 13:57 CHUCKY (Rec: 09/30/21 13:57 CHUCKY [id number]) Nutrition Malnutrition Evidence of Malnutrition Exists Yes Malnutrition (moderate): Acute Illness/Injury Evidenced By Suboptimal Energy Intake ( Severe),Weight Loss (Moderate) Intake Problem Inadequate Oral Intake Status Inactive Problem Clinical Problem Biting/Chewing Difficulty Etiology related to dysphagia Signs/Symptoms as evidenced by need for mech altered consistency diet Status Active Problem Acute Disease or Injury Related Malnutrition Etiology moderate - related to inadequate energy intake at meals and res having issues w/ generalized pain and no appetite Signs/Symptoms as evidenced by <50% po intake x 1 month - has had variable wts and edema that is likely masking wt loss. Status Active Problem Recommendation Dietitian Recommendations/Changes Will continue Regular diet w/ small portions per res request and res right - consistency per FINANCIAL ADVISOR TRAINEE Will continue ensure enlive 8 oz and ensure pudding w/ meals per res preference - will decrease to 4 oz at meals at time of follow up if res eating better and if agreeable to change. Will continue to monitor wt trends and changes in fluid status. Will continue appetite stimulant to help encourage increased po intake. Will continue to fortify foods as able to make foods more nutrient dense if consumed. Lab / Micro Data Result Diagrams: 09/25/21 05:10 10/01/21 05:13 Labs: Laboratory Results - last 24 hr 10/01/21 05:13: Sodium 135 L, Potassium 3.5, Chloride 89 L, Carbon Dioxide 37.0 H, BUN 64 H, Creatinine 1.90 H, Estim Creat Clear Calc 30.08, Est GFR (MDRD) Af Amer 32 L, Est GFR (MDRD) Non-Af 27 L, BUN/Creatinine Ratio 33.7 H, Glucose 119 H, Calcium 9.0, Phosphorus 3.3, Albumin 2.4 L Micro: Microbiology 10/01/21 Unknown Nasal Secretion SARS-CoV-2 Antigen (Rapid) - Final 09/24/21 14:27 Nasal Secretion SARS-CoV-2 Antigen (Rapid) - Final 09/17/21 20:45 Urine Catheter - Fu[place] Urine Culture - Final Yeast, not Carla albicans 09/17/21 09:10 Nasal Secretion SARS-CoV-2 Antigen (Rapid) - Final 09/06/21 10:00 Blood Culture (Wb) - Right Forearm Blood Culture - Final No growth in 5 days. 09/06/21 10:12 Blood Culture (Wb) - Right Hand Blood Culture - Final No growth in 5 days. 09/10/21 04:18 Nasal Secretion SARS-CoV-2 Antigen (Rapid) - Final 09/06/21 12:30 Urine Catheter - [place] Urine Culture - Final Presumptive C albicans 09/06/21 10:27 Mucosa - Nose Respiratory Panel (PCR) - Final 09/06/21 10:15 Nasal Secretion SARS-CoV-2 Antigen (Rapid) - Final Physical Exam Narrative General: Alert and oriented x3 in no apparent distress Heart: Normal S1, S2. No rubs, murmurs or gallops. Lungs: Mild decreased breath sound at bases otherwise clear. On O2 via nasal cannula Abdomen: soft, NT. Extremity: 2+ edema b/l LE. fuentes with clear urine in bag Assessment & Plan Assessment/Plan (1) Chronic kidney disease, stage 4 (severe): PLAN: The patient has chronic kidney disease stage IIIb-IV, possible baseline SCr ~1.7-2mg/dL. Overall renal function has been stable. Creatinine has been anywhere between 1.9-2 2.18 mg/dL over past few weeks. Creatinine is 1.90mg/dL today, at baseline. Continue current dose of Lasix/metolazone with monitoring of volume status and electrolytes. Recheck renal function again next week bps acceptable on lopressor and diuretic. Will arrange for follow up after hospital discharge. (2) Chronic combined systolic and diastolic CHF (congestive heart failure): PLAN: The patient is more compensated subjectively. There is less edema and dyspnea with activities. Weight is down to 86kg and per I&O she is net negative. Continue current dose of Lasix and metolazone. Good urine output daily. Continue to watch renal function, electrolytes, and acid-base status.
[2021-10-01] MEDS: Furosemide 100 MG/10 ML Vial 80 MG IV (10:35)
--- NOTE | 2021-10-01 11:59 | NURSING ---
PT AND FAMILY UP DATED ON POSITIVE COVID PT.
[2021-10-01 13:13] VITALS: BP 133/60; PULSE 96
[2021-10-01 13:18] VITALS: BP 133/60; PULSE 96; RESP 18; TEMP 36.3; O2SAT 96
--- NOTE | 2021-10-01 15:14 | NURSING ---
CALLED AND UPDATED ON PT HAVING ITCHINESS AND REDNESS TO LOWER LEFT BACK,AB AND THIGH. AUGMENTIN WAS STARTED ON 09/29/21. ORDERED TO STOP THE AUGMENTIN AND STATED HE WOULD THINK ABOUT WHAT TO DO NEXT. RN AWARE
[2021-10-01] MEDS: Acetaminophen 500 MG Tablet 1000 MG PO (17:27)
[2021-10-01 21:57] VITALS: BP 127/41; PULSE 77
[2021-10-01] MEDS: MELATONIN 3 MG TABLET PO (21:57)
[2021-10-01] MEDS: Mirtazapine 15 MG Tablet 7.5 MG PO (21:57)
[2021-10-01] MEDS: Menthol/Lanolin/Calamine/Znox 113 GM Tube 1 APPLIC TOPICAL (22:01)
[2021-10-02 05:43] LABS: Absolute Lymphocyte Count 0.85 X10^3/uL (0.83-4.51); Absolute Neutrophil Count 4.9 X10^3/uL (2.0-7.7); Basophil# 0.07 X10^3/uL; Basophil% 0.9 % (0-1); Eosinophil# 0.47 X10^3/uL; Eosinophils% 6.1 % (0-5); Hematocrit 31.2 % (37-47); Hemoglobin 9.8 g/dL (12.0-15.0); Lymphocyte # 0.85 X10^3/ul (0.83-4.51); Mean Corp Hgb Conc 31.4 g/dL (32-36); Mean Corpuscular Hgb 30.6 pg (27.0-32.0); Mean Corpuscular Volume 97.5 fL (81-99); Mean Platelet Vol. 10.5 fl (6.2-12.0); Monocyte# 1.35 X10^3/uL; Monocyte% 17.5 % (0-10); NRBC Flagged by Analyzer 0 % (0-5); Neutrophil # 4.93 X10^3/uL (2.7-7.7); POSITIVE MORPHOLOGY YES; Platelet Count 245 K/mm3 (150-450); RBC Distribution Width SD 71.4 fl (35.1-43.9); White Blood Count 7.7 K/mm3 (4.4-11.0)
[2021-10-02 06:00] LABS: Differential Indicated SCAN CRITERIA MET
[2021-10-02 06:01] LABS: Anisocytosis 1+; Differential Comment SCANNED; Macrocytosis 1+
[2021-10-02 06:08] LABS: Anion Gap 7 (5-15); BUN 69 mg/dL (7-18); BUN/Creat Ratio 38.5 RATIO (10-20); Calcium,Total 9.2 mg/dL (8.5-10.1); Chloride 90 mmol/L (98-107); Creatinine, Serum 1.79 mg/dL (0.55-1.02); EST Glomerular Filtration Rate 29 mL/min (>60); Est Glom Filt Rate - Afr Amer 35 mL/min (>60); Estimated Creatinine Clearance 31.93 ml/min; Glucose 115 mg/dL (74-106); Potassium 3.3 mmol/L (3.5-5.1); Sodium Level 136 mmol/L (136-145)
[2021-10-02] MEDS: Senna/Docusate Sodium 1 Tablet 2 TABLET PO (06:25)
[2021-10-02] MEDS: guaiFENesin 600 MG Tablet PO ×2 (06:26→17:23)
[2021-10-02] MEDS: Clopidogrel Bisulfate 75 MG Tablet PO (06:26)
[2021-10-02] MEDS: metOLazone 5 MG Tablet PO (06:26)
[2021-10-02] MEDS: Levothyroxine 125 MCG Tablet PO (06:26)
[2021-10-02] MEDS: Pantoprazole Sodium 40 MG Tablet PO ×2 (06:26→17:25)
[2021-10-02] MEDS: Petrolatum 33% Tube 1 APPLIC TOPICAL ×2 (06:27→17:26)
[2021-10-02 06:28] VITALS: BP 140/64; PULSE 90
[2021-10-02] MEDS: APIXABAN 2.5 MG TABLET PO ×2 (06:28→17:26)
[2021-10-02] MEDS: Metoprolol Tartrate 25 MG Tablet PO ×3 (06:28→21:19)
[2021-10-02 06:59] VITALS: O2SAT 95
[2021-10-02] MEDS: Multivitamins,Ther W-Minerals Tablet 1 TABLET PO (08:59)
[2021-10-02] MEDS: Ascorbic Acid 500 MG Tablet PO ×2 (08:59→17:23)
[2021-10-02] MEDS: Cholecalciferol (VIT D3) 25 MCG TABLET (1,000 UNITS) PO (08:59)
[2021-10-02] MEDS: Menthol/Lanolin/Calamine/Znox 113 GM Tube 1 APPLIC TOPICAL ×2 (09:00→21:21)
[2021-10-02] MEDS: Furosemide 100 MG/10 ML Vial 80 MG IV (09:00)
[2021-10-02] MEDS: Nystatin Powder 15gm Bottle 1 APPLIC TOPICAL ×2 (09:01→21:21)
[2021-10-02] MEDS: Gabapentin 300 MG Capsule PO ×3 (09:05→17:28)
--- NOTE | 2021-10-02 09:48 | WOUNDNOTE ---
In to reassess the left hip incision. there was no drainage noted on the old dressing. no redness noted. still moderate edema. pt tolerated dressing change well. If wound remains dry, can leave ELAN and monitor.
[2021-10-02] MEDS: Acetaminophen 500 MG Tablet 1000 MG PO (11:02)
[2021-10-02] MEDS: Potassium Chloride Oral Tablet 20 MEQ 40 MEQ PO (12:45)
--- NOTE | 2021-10-02 13:12 | PN.ID_ITS ---
Physical Exam Narrative Rash improving, no fever Const alert and no apparent distress Resp normal air movement and clear to auscultation bilaterally Cardio regular rate and regular rhythm GI soft to palpation, non-tender and non-distended Skin no rashes or lesions noted ID ID: Route of nutrition/ use of supplements: [] Nutritional Intake: [] IV Site: [] [place] Catheter: [] Assessment & Plan Assessment/Plan (1) Left hip prosthetic joint infection: PLAN: s/p OR 08/20/[address] Nettles for I&D and revision of L hip.? One surg cx with proteus and bacteroides.? Now course complicated by worsening EL. 08/24 changed abx to ceftriaxone.? Neph consulted.? Plan on 6 weeks iv ertapenem, stop date 10/01/21.? Had rash with ceftriaxone. Developed hypoxia, vanc added, covid and resp pcr panel neg. O2 slowly improving. Not clear if infectious or cardiac in origin. Now with rash on trunk, stopped vanc, not improved, so on 09/10 stopped ertapenem and changed to po cipro/flagyl. Rash was still worsening despite change. Possible reaction with amiodarone, now stopped by primary team, rash resolved. Reacted to augmentin, will change back to cipro/flagyl at lower dose, plan on 6- 12 months of treatment. Will follow. ID followup in 2 months after discharge.
[2021-10-02 14:14] VITALS: BP 125/55; PULSE 85; RESP 18; TEMP 36.4; O2SAT 94
[2021-10-02 14:18] VITALS: PULSE 85
[2021-10-02] MEDS: Ciprofloxacin 250 MG Tablet PO (17:24)
[2021-10-02] MEDS: metroNIDAZOLE 500 MG Tablet PO (17:25)
[2021-10-02] MEDS: oxyCODONE 5 MG Tablet PO (21:18)
[2021-10-02 21:19] VITALS: BP 132/59; PULSE 110
[2021-10-02] MEDS: Mirtazapine 15 MG Tablet 7.5 MG PO (21:21)
[2021-10-02] MEDS: MELATONIN 3 MG TABLET PO (21:21)
[2021-10-03 06:49] VITALS: BP 139/50; PULSE 102
[2021-10-03] MEDS: Metoprolol Tartrate 25 MG Tablet PO ×3 (06:49→20:38)
[2021-10-03] MEDS: Psyllium 1 PACKET PO (06:49)
[2021-10-03] MEDS: metOLazone 5 MG Tablet PO (06:49)
[2021-10-03] MEDS: guaiFENesin 600 MG Tablet PO ×2 (06:49→17:27)
[2021-10-03] MEDS: APIXABAN 2.5 MG TABLET PO ×2 (06:49→17:28)
[2021-10-03] MEDS: Levothyroxine 125 MCG Tablet PO (06:49)
[2021-10-03] MEDS: metroNIDAZOLE 500 MG Tablet PO ×2 (06:49→17:28)
[2021-10-03] MEDS: Clopidogrel Bisulfate 75 MG Tablet PO (06:49)
[2021-10-03] MEDS: Pantoprazole Sodium 40 MG Tablet PO ×2 (06:49→17:27)
[2021-10-03] MEDS: Ciprofloxacin 250 MG Tablet PO ×2 (06:50→17:28)
[2021-10-03] MEDS: Petrolatum 33% Tube 1 APPLIC TOPICAL ×2 (06:51→17:30)
[2021-10-03] MEDS: 0.9% Saline Lock 10 ML Syringe IV ×2 (06:55→10:10)
[2021-10-03 07:37] LABS: Anion Gap 8 (5-15); BUN 63 mg/dL (7-18); BUN/Creat Ratio 35.8 RATIO (10-20); Calcium,Total 9.5 mg/dL (8.5-10.1); Chloride 91 mmol/L (98-107); Creatinine, Serum 1.76 mg/dL (0.55-1.02); EST Glomerular Filtration Rate 29 mL/min (>60); Est Glom Filt Rate - Afr Amer 35 mL/min (>60); Estimated Creatinine Clearance 31.87 ml/min; Glucose 124 mg/dL (74-106); Sodium Level 133 mmol/L (136-145)
[2021-10-03] MEDS: Gabapentin 300 MG Capsule PO ×3 (08:01→17:27)
[2021-10-03] MEDS: Potassium Chloride Oral Tablet 20 MEQ PO (08:02)
[2021-10-03] MEDS: Multivitamins,Ther W-Minerals Tablet 1 TABLET PO (08:02)
[2021-10-03] MEDS: Ascorbic Acid 500 MG Tablet PO ×2 (08:03→17:28)
[2021-10-03] MEDS: Cholecalciferol (VIT D3) 25 MCG TABLET (1,000 UNITS) PO (08:03)
[2021-10-03] MEDS: oxyCODONE 5 MG Tablet PO ×2 (09:46→18:08)
[2021-10-03] MEDS: Nystatin Powder 15gm Bottle 1 APPLIC TOPICAL ×2 (09:48→20:44)
[2021-10-03] MEDS: Acetaminophen 500 MG Tablet 1000 MG PO ×2 (09:50→18:08)
[2021-10-03] MEDS: Menthol/Lanolin/Calamine/Znox 113 GM Tube 1 APPLIC TOPICAL ×2 (09:51→20:44)
[2021-10-03 10:00] VITALS: O2SAT 90
[2021-10-03] MEDS: Furosemide 100 MG/10 ML Vial 80 MG IV (10:09)
[2021-10-03 10:23] VITALS: BP 114/62; PULSE 104
[2021-10-03 14:00] VITALS: BP 138/62; PULSE 92; RESP 18; TEMP 36.4; O2SAT 94
[2021-10-03 14:12] VITALS: PULSE 72
[2021-10-03] MEDS: Senna/Docusate Sodium 1 Tablet 2 TABLET PO (17:27)
[2021-10-03 20:38] VITALS: BP 116/58; PULSE 118
[2021-10-03] MEDS: MELATONIN 3 MG TABLET PO (20:39)
[2021-10-03] MEDS: Mirtazapine 15 MG Tablet 7.5 MG PO (20:40)
[2021-10-04 05:20] VITALS: BP 124/52; PULSE 98
[2021-10-04] MEDS: Metoprolol Tartrate 25 MG Tablet PO ×3 (05:20→20:45)
[2021-10-04] MEDS: Pantoprazole Sodium 40 MG Tablet PO ×2 (05:21→17:50)
[2021-10-04] MEDS: Ciprofloxacin 250 MG Tablet PO ×2 (05:21→17:47)
[2021-10-04] MEDS: Levothyroxine 125 MCG Tablet PO (05:21)
[2021-10-04] MEDS: guaiFENesin 600 MG Tablet PO ×2 (05:21→17:48)
[2021-10-04] MEDS: APIXABAN 2.5 MG TABLET PO ×2 (05:21→17:47)
[2021-10-04] MEDS: Clopidogrel Bisulfate 75 MG Tablet PO (05:21)
[2021-10-04] MEDS: metroNIDAZOLE 500 MG Tablet PO ×2 (05:21→17:48)
[2021-10-04] MEDS: Senna/Docusate Sodium 1 Tablet 2 TABLET PO ×2 (05:21→17:49)
[2021-10-04] MEDS: Petrolatum 33% Tube 1 APPLIC TOPICAL ×2 (05:22→17:47)
[2021-10-04] MEDS: Psyllium 1 PACKET PO (05:23)
[2021-10-04] MEDS: metOLazone 5 MG Tablet PO (05:23)
[2021-10-04] MEDS: Potassium Chloride Oral Tablet 20 MEQ PO (08:04)
[2021-10-04] MEDS: Gabapentin 300 MG Capsule PO ×3 (08:04→17:45)
[2021-10-04] MEDS: Cholecalciferol (VIT D3) 25 MCG TABLET (1,000 UNITS) PO (08:05)
[2021-10-04] MEDS: Ascorbic Acid 500 MG Tablet PO ×2 (08:05→17:47)
[2021-10-04] MEDS: Multivitamins,Ther W-Minerals Tablet 1 TABLET PO (08:05)
[2021-10-04 09:21] VITALS: O2SAT 92
[2021-10-04] MEDS: Menthol/Lanolin/Calamine/Znox 113 GM Tube 1 APPLIC TOPICAL ×2 (10:37→20:48)
[2021-10-04] MEDS: Nystatin Powder 15gm Bottle 1 APPLIC TOPICAL ×2 (10:37→20:49)
[2021-10-04] MEDS: Furosemide 100 MG/10 ML Vial 80 MG IV (11:34)
[2021-10-04] MEDS: 0.9% Saline Lock 10 ML Syringe IV ×2 (11:35→20:33)
[2021-10-04 14:00] VITALS: BP 103/52; PULSE 71; RESP 22; TEMP 36.4; O2SAT 92
[2021-10-04 14:15] VITALS: PULSE 88
[2021-10-04] MEDS: oxyCODONE 5 MG Tablet PO (15:35)
[2021-10-04] MEDS: Acetaminophen 500 MG Tablet 1000 MG PO (15:35)
[2021-10-04 20:45] VITALS: BP 106/75; PULSE 106
[2021-10-04] MEDS: Mirtazapine 15 MG Tablet 7.5 MG PO (20:46)
[2021-10-04] MEDS: MELATONIN 3 MG TABLET PO (20:46)
[2021-10-04] MEDS: hydrOXYzine 10 MG Tablet PO (20:51)
[2021-10-04] MEDS: Hydrocortisone 2.5% Crm 1 APPLIC TOPICAL (20:53)
--- NOTE | 2021-10-05 05:11 | MDS.RN ---
SUPERVISOR ANODIZING's were providing care to patient when she started feeling nauseous and thought she would vomit. Emesis bag provided. Patient did not have any emesis, but states she continues to feel nauseous. Medications held at this time. Provided brayden adrianne at her request. Will continue to monitor.
[2021-10-05 06:47] VITALS: BP 130/79; PULSE 117
[2021-10-05] MEDS: Metoprolol Tartrate 25 MG Tablet PO ×3 (06:47→20:54)
[2021-10-05] MEDS: metroNIDAZOLE 500 MG Tablet PO ×2 (06:47→17:41)
[2021-10-05] MEDS: Ciprofloxacin 250 MG Tablet PO ×2 (06:47→17:40)
[2021-10-05] MEDS: metOLazone 5 MG Tablet PO (06:49)
[2021-10-05] MEDS: guaiFENesin 600 MG Tablet PO ×2 (06:49→17:44)
[2021-10-05] MEDS: Levothyroxine 125 MCG Tablet PO (06:49)
[2021-10-05] MEDS: Clopidogrel Bisulfate 75 MG Tablet PO (06:49)
[2021-10-05] MEDS: APIXABAN 2.5 MG TABLET PO ×2 (06:49→17:41)
[2021-10-05] MEDS: Senna/Docusate Sodium 1 Tablet 2 TABLET PO ×2 (06:52→17:43)
[2021-10-05] MEDS: Psyllium 1 PACKET PO (06:52)
[2021-10-05] MEDS: Pantoprazole Sodium 40 MG Tablet PO ×2 (06:54→17:43)
[2021-10-05] MEDS: Petrolatum 33% Tube 1 APPLIC TOPICAL ×2 (06:59→21:02)
--- NOTE | 2021-10-05 08:53 | NURSING ---
PT NAUSEATED WITH DRY HEAVES. REFUSED BREAKFAST AND MORNING PILLS. LEFT NOTE FOR . RN AWARE
[2021-10-05] MEDS: Nystatin Powder 15gm Bottle 1 APPLIC TOPICAL ×2 (10:11→21:09)
[2021-10-05] MEDS: Menthol/Lanolin/Calamine/Znox 113 GM Tube 1 APPLIC TOPICAL ×2 (10:14→21:04)
[2021-10-05] MEDS: Furosemide 100 MG/10 ML Vial 80 MG IV (10:31)
[2021-10-05] MEDS: 0.9% Saline Lock 10 ML Syringe IV (10:33)
--- NOTE | 2021-10-05 11:21 | WOUNDNOTE ---
Pt is currently up in chair visiting with family. will reassess the left hip incision later.
[2021-10-05] MEDS: Gabapentin 300 MG Capsule PO ×2 (11:31→17:40)
[2021-10-05 14:00] VITALS: BP 114/61; PULSE 80; RESP 16; TEMP 36.3; O2SAT 98
[2021-10-05 14:08] VITALS: BP 139/81; PULSE 77
[2021-10-05] MEDS: Ascorbic Acid 500 MG Tablet PO (17:41)
[2021-10-05 20:54] VITALS: BP 136/65; PULSE 98
[2021-10-05] MEDS: MELATONIN 3 MG TABLET PO (20:54)
[2021-10-05] MEDS: hydrOXYzine 10 MG Tablet PO (20:55)
[2021-10-05] MEDS: Mirtazapine 15 MG Tablet 7.5 MG PO (20:55)
[2021-10-05 21:00] VITALS: O2SAT 90
[2021-10-06] MEDS: oxyCODONE 5 MG Tablet PO ×2 (00:06→21:23)
[2021-10-06] MEDS: Pantoprazole Sodium 40 MG Tablet PO ×2 (05:26→18:11)
[2021-10-06] MEDS: Senna/Docusate Sodium 1 Tablet 2 TABLET PO ×2 (05:26→18:12)
[2021-10-06 05:27] VITALS: BP 112/65; PULSE 96
[2021-10-06] MEDS: metOLazone 5 MG Tablet PO (05:27)
[2021-10-06] MEDS: Metoprolol Tartrate 25 MG Tablet PO ×3 (05:27→20:26)
[2021-10-06] MEDS: Ciprofloxacin 250 MG Tablet PO ×2 (05:27→18:09)
[2021-10-06] MEDS: Levothyroxine 125 MCG Tablet PO (05:30)
[2021-10-06] MEDS: APIXABAN 2.5 MG TABLET PO ×2 (05:30→18:10)
[2021-10-06] MEDS: guaiFENesin 600 MG Tablet PO ×2 (05:30→18:11)
[2021-10-06] MEDS: metroNIDAZOLE 500 MG Tablet PO ×2 (05:30→18:13)
[2021-10-06] MEDS: Clopidogrel Bisulfate 75 MG Tablet PO (05:30)
[2021-10-06] MEDS: Psyllium 1 PACKET PO (05:31)
[2021-10-06] MEDS: Petrolatum 33% Tube 1 APPLIC TOPICAL ×2 (05:35→20:23)
[2021-10-06] MEDS: Gabapentin 300 MG Capsule PO ×3 (08:15→18:07)
[2021-10-06] MEDS: Potassium Chloride Oral Tablet 20 MEQ PO (08:16)
[2021-10-06] MEDS: Multivitamins,Ther W-Minerals Tablet 1 TABLET PO (08:17)
[2021-10-06] MEDS: Ascorbic Acid 500 MG Tablet PO ×2 (08:17→18:09)
[2021-10-06] MEDS: Cholecalciferol (VIT D3) 25 MCG TABLET (1,000 UNITS) PO (08:17)
[2021-10-06] MEDS: Acetaminophen 500 MG Tablet 1000 MG PO (09:12)
[2021-10-06 09:50] VITALS: PULSE 83; RESP 18; O2SAT 94
--- NOTE | 2021-10-06 09:50 | NURSING ---
FAMILY AND PT NOTIFIED OF POSITIVE STAFF MEMBER FOR COVID.
[2021-10-06 10:00] VITALS: O2SAT 93
[2021-10-06] MEDS: Nystatin Powder 15gm Bottle 1 APPLIC TOPICAL ×2 (10:00→20:36)
[2021-10-06] MEDS: Furosemide 100 MG/10 ML Vial 80 MG IV (10:44)
[2021-10-06] MEDS: 0.9% Saline Lock 10 ML Syringe IV (10:49)
[2021-10-06 13:34] VITALS: BP 115/56; PULSE 89
[2021-10-06 13:37] VITALS: BP 120/62; PULSE 76; RESP 16; TEMP 36.2; O2SAT 96
--- NOTE | 2021-10-06 14:23 | WOUNDNOTE ---
wound photo: left hip
--- NOTE | 2021-10-06 15:36 | CASEMGMT ---
Social Work Updated dtr that insurance approved pt with [facility] 10/12. SW updated [facility] via email. SW will continue to follow. Kriss Coates, PHOSPHORIC ACID SUPERVISOR STONE CRUSHER OPERATOR
[2021-10-06] MEDS: Menthol/Lanolin/Calamine/Znox 113 GM Tube 1 APPLIC TOPICAL (20:24)
[2021-10-06] MEDS: Mirtazapine 15 MG Tablet 7.5 MG PO (20:25)
[2021-10-06] MEDS: hydrOXYzine 10 MG Tablet PO (20:25)
[2021-10-06 20:26] VITALS: BP 136/65; PULSE 94
[2021-10-06] MEDS: MELATONIN 3 MG TABLET PO (20:27)
[2021-10-07] VITALS (7 sets, daily range): BP systolic 105–131; BP diastolic 55–66; PULSE 81–107; RESP 18; TEMP 36.1; O2SAT 94–96
[2021-10-07] MEDS: Psyllium 1 PACKET PO (04:26)
[2021-10-07] MEDS: Clopidogrel Bisulfate 75 MG Tablet PO (04:27)
[2021-10-07] MEDS: Metoprolol Tartrate 25 MG Tablet PO ×2 (04:27→14:28)
[2021-10-07] MEDS: APIXABAN 2.5 MG TABLET PO ×2 (04:28→17:35)
[2021-10-07] MEDS: Senna/Docusate Sodium 1 Tablet 2 TABLET PO ×2 (04:28→17:35)
[2021-10-07] MEDS: metroNIDAZOLE 500 MG Tablet PO ×2 (04:28→17:35)
[2021-10-07] MEDS: Levothyroxine 125 MCG Tablet PO (04:28)
[2021-10-07] MEDS: guaiFENesin 600 MG Tablet PO ×2 (04:28→17:35)
[2021-10-07] MEDS: metOLazone 5 MG Tablet PO (04:28)
[2021-10-07] MEDS: Ciprofloxacin 250 MG Tablet PO (04:28)
[2021-10-07] MEDS: Pantoprazole Sodium 40 MG Tablet PO ×2 (04:29→17:35)
[2021-10-07] MEDS: Petrolatum 33% Tube 1 APPLIC TOPICAL ×2 (04:31→17:36)
[2021-10-07] MEDS: Acetaminophen 500 MG Tablet 1000 MG PO (04:35)
[2021-10-07] MEDS: Ondansetron ODT 4 MG Tablet PO (05:01)
[2021-10-07] MEDS: Multivitamins,Ther W-Minerals Tablet 1 TABLET PO (07:46)
[2021-10-07] MEDS: Potassium Chloride Oral Tablet 20 MEQ PO (07:47)
[2021-10-07] MEDS: Ascorbic Acid 500 MG Tablet PO ×2 (07:47→17:35)
[2021-10-07] MEDS: Gabapentin 300 MG Capsule PO ×3 (07:47→17:35)
[2021-10-07] MEDS: Cholecalciferol (VIT D3) 25 MCG TABLET (1,000 UNITS) PO (07:47)
[2021-10-07] MEDS: Menthol/Lanolin/Calamine/Znox 113 GM Tube 1 APPLIC TOPICAL ×2 (08:59→22:07)
[2021-10-07] MEDS: Nystatin Powder 15gm Bottle 1 APPLIC TOPICAL ×2 (08:59→22:07)
[2021-10-07] MEDS: 0.9% Saline Lock 10 ML Syringe IV (10:58)
[2021-10-07] MEDS: Furosemide 100 MG/10 ML Vial 80 MG IV (10:58)
--- NOTE | 2021-10-07 19:48 | NURSING ---
notified of patient on unit testing positive for Covid
[2021-10-07] MEDS: MELATONIN 3 MG TABLET PO (22:06)
[2021-10-07] MEDS: Ciprofloxacin 500 MG Tablet PO (22:06)
[2021-10-07] MEDS: Mirtazapine 15 MG Tablet 7.5 MG PO (22:06)
[2021-10-08] VITALS (7 sets, daily range): BP systolic 95–130; BP diastolic 40–67; PULSE 99–116; RESP 20; TEMP 36.3; O2SAT 94–95
[2021-10-08] MEDS: oxyCODONE 5 MG Tablet PO ×2 (00:02→18:14)
[2021-10-08] MEDS: 0.9% Saline Lock 10 ML Syringe IV (00:03)
[2021-10-08] MEDS: Levothyroxine 125 MCG Tablet PO (06:17)
[2021-10-08] MEDS: guaiFENesin 600 MG Tablet PO ×2 (06:18→17:23)
[2021-10-08] MEDS: Pantoprazole Sodium 40 MG Tablet PO ×2 (06:18→17:24)
[2021-10-08] MEDS: Senna/Docusate Sodium 1 Tablet 2 TABLET PO ×2 (06:18→17:24)
[2021-10-08] MEDS: APIXABAN 2.5 MG TABLET PO ×2 (06:18→17:23)
[2021-10-08] MEDS: Clopidogrel Bisulfate 75 MG Tablet PO (06:18)
[2021-10-08] MEDS: metroNIDAZOLE 500 MG Tablet PO ×2 (06:18→17:23)
[2021-10-08] MEDS: Petrolatum 33% Tube 1 APPLIC TOPICAL ×2 (06:19→17:30)
[2021-10-08] MEDS: Cholecalciferol (VIT D3) 25 MCG TABLET (1,000 UNITS) PO (08:00)
[2021-10-08] MEDS: Ascorbic Acid 500 MG Tablet PO ×2 (08:00→17:23)
[2021-10-08] MEDS: Multivitamins,Ther W-Minerals Tablet 1 TABLET PO (08:00)
[2021-10-08] MEDS: Potassium Chloride Oral Tablet 20 MEQ PO (08:00)
[2021-10-08] MEDS: metOLazone 5 MG Tablet PO (08:00)
[2021-10-08] MEDS: Gabapentin 300 MG Capsule PO ×3 (08:00→17:22)
[2021-10-08] MEDS: Menthol/Lanolin/Calamine/Znox 113 GM Tube 1 APPLIC TOPICAL ×2 (08:00→22:27)
[2021-10-08] MEDS: Nystatin Powder 15gm Bottle 1 APPLIC TOPICAL ×2 (08:01→22:27)
[2021-10-08] MEDS: Acetaminophen 500 MG Tablet 1000 MG PO (08:05)
[2021-10-08] MEDS: Furosemide 80 MG Tablet PO (10:50)
--- NOTE | 2021-10-08 12:13 | PHA.CONS_ITS ---
TCU RX Drug Regimen Review Subjective: Monthly TCU medication regimen review. Patient admitted in August with no anticipated discharge in the month of September Objective: Allergies ceftriaxone [From Rocephin] Allergy (Intermediate, Verified 09/25/21 09:54) Rash after 2nd iv dose 08/25 amiodarone Allergy (Verified 09/25/21 09:54) Hives vancomycin Allergy (Verified 09/25/21 09:54) Rash atorvastatin [From Lipitor] Adverse Reaction (Verified 09/25/21 09:54) Pain in joints niacin Adverse Reaction (Verified 09/25/21 09:54) Pain in joints pregabalin [From Lyrica] Adverse Reaction (Verified 09/25/21 09:54) leg pain simvastatin [From Zocor] Adverse Reaction (Verified 09/25/21 09:54) Pain in joints Current Medications Generic Name Dose Route Start Last Admin Trade Name Freq PRN Reason Stop Dose Admin Acetaminophen 1,000 mg 09/03/21 22:06 10/08/21 08:05 Acetaminophen 500 Mg Tablet PO 1,000 mg Q6H PRN PRN Administration Pain Score 1-5 Albuterol Sulfate 2.5 mg 09/06/21 10:01 09/27/21 09:24 Albuterol 2.5 Mg/3 Ml Vial.Neb. INHALATION 2.5 mg Q2H PRN PRN Administration WHEEZING Albuterol Sulfate 2 puff 09/14/21 11:38 Albuterol Sulfate 8 Gm Inhaler (60 Puffs) INHALATION Q4H PRN PRN WHEEZING Apixaban 2.5 mg 09/03/21 18:00 10/08/21 06:18 Apixaban 2.5 Mg Tablet PO 2.5 mg BID SUSAN Administration Ascorbic Acid 500 mg 09/03/21 17:00 10/08/21 08:00 Ascorbic Acid 500 Mg Tablet PO 500 mg BIDCM SUSAN Administration Bisacodyl 10 mg 09/03/21 16:11 Bisacodyl 10 Mg Suppository RC X1 PRN Constipation Calamine/Phenol 1 applic 09/14/21 22:00 10/08/21 08:00 Menthol/Lanolin/Calamine/Znox 113 Gm Tube TOPICAL 1 applic 1000,2200 SUSAN Administration Protocol Cholecalciferol 25 mcg 09/04/21 08:00 10/08/21 08:00 Cholecalciferol (Vit D3) 25 Mcg Tablet (1,000 Units) PO 25 mcg 0800 SUSAN Administration Ciprofloxacin HCl 500 mg 10/07/21 22:30 10/07/21 22:06 Ciprofloxacin 500 Mg Tablet PO 500 mg Q18H SUSAN Administration Clopidogrel Bisulfate 75 mg 09/04/21 06:00 10/08/21 06:18 Clopidogrel Bisulfate 75 Mg Tablet PO 75 mg DAILY SUSAN Administration Ferrous Sulfate 325 mg 09/03/21 17:00 09/06/21 09:07 Ferrous Sulfate 325 Mg Tablet PO 325 mg BIDCM SUSAN Administration Furosemide 80 mg 10/08/21 10:01 10/08/21 10:50 Furosemide 80 Mg Tablet PO 80 mg DAILY SUSAN Administration Gabapentin 300 mg 09/08/21 07:45 10/08/21 11:57 Gabapentin 300 Mg Capsule PO 300 mg TIDCM SUSAN Administration Guaifenesin 600 mg 09/06/21 18:00 10/08/21 06:18 Guaifenesin 600 Mg Tablet PO 600 mg BID SUSAN Administration Hydrocortisone 1 applic 09/10/21 17:19 10/04/21 20:53 Hydrocortisone 2.5% Crm TOPICAL 1 applic BID PRN PRN Administration RASH/TOPICAL IRRITATION Protocol Hydroxyzine HCl 10 mg 09/19/21 10:22 10/06/21 20:25 Hydroxyzine 10 Mg Tablet PO 10 mg Q8H PRN PRN Administration itchiness Levothyroxine Sodium 125 mcg 09/04/21 06:00 10/08/21 06:17 Levothyroxine 125 Mcg Tablet PO 125 mcg 0600 SUSAN Administration Lidocaine/Diphenhydr/Alum/Mg/Simeth 15 ml 09/10/21 17:19 09/11/21 08:41 Bmx Liquid 180 Ml PO 15 ml Q3H PRN PRN Administration MOUTH IRRITATION Melatonin 3 mg 09/12/21 22:00 10/07/21 22:06 Melatonin 3 Mg Tablet PO 3 mg QHS SUSAN Administration Metolazone 5 mg 09/18/21 14:45 10/08/21 08:00 Metolazone 5 Mg Tablet PO 5 mg DAILY SUSAN Administration Metoprolol Tartrate 25 mg 09/19/21 14:00 10/08/21 06:19 Metoprolol Tartrate 25 Mg Tablet PO Not Given Q8H [facility] Metronidazole 500 mg 10/02/21 18:00 10/08/21 06:18 Metronidazole 500 Mg Tablet PO 500 mg BID SUSAN Administration Mirtazapine 7.5 mg 09/17/21 22:00 10/07/21 22:06 Mirtazapine 15 Mg Tablet PO 7.5 mg QHS [facility] Administration Multi-Ingredient Cream 1 applic 09/28/21 18:00 10/08/21 06:19 Petrolatum 33% Tube TOPICAL 1 applic BID SUSAN Administration Multivitamins/Minerals 1 tablet 09/04/21 08:00 10/08/21 08:00 Multivitamins,Ther W-Minerals Tablet PO 1 tablet BREAKFAST [facility] Administration Nitroglycerin 0.4 mg 09/03/21 16:17 Nitroglycerin (Inpatient Use) 0.4 Mg Tab.Subl SL Q5M PRN CARDIAC/CHEST PAIN Nystatin 1 applic 09/14/21 22:00 10/08/21 08:01 Nystatin Powder 15gm Bottle TOPICAL 1 applic 1000,2200 [facility] Administration Protocol Ondansetron HCl 4 mg 10/05/21 17:06 10/07/21 05:01 Ondansetron Odt 4 Mg Tablet PO 4 mg Q8H PRN PRN Administration NAUSEA/VOMITING Oxycodone HCl 5 mg 09/03/21 22:06 10/08/21 00:02 Oxycodone 5 Mg Tablet PO 5 mg Q4H PRN PRN Administration Pain Score 6-10 Pantoprazole Sodium 40 mg 09/03/21 18:00 10/08/21 06:18 Pantoprazole Sodium 40 Mg Tablet PO 40 mg BID [facility] Administration Potassium Chloride 20 meq 10/03/21 08:00 10/08/21 08:00 Potassium Chloride Oral Tablet 20 Meq PO 20 meq DAILYCM [facility] Administration Psyllium Hydrophilic Mucilloid 1 packet 09/04/21 06:00 10/08/21 06:19 Psyllium 1 Packet PO Not Given DAILY [facility] Senna/Docusate Sodium 2 tablet 09/03/21 18:00 10/08/21 06:18 Senna/Docusate Sodium 1 Tablet PO 2 tablet BID [facility] Administration Sodium Chloride 2 spray 09/03/21 15:45 09/06/21 09:14 Sodium Chloride 0.65% 1 [place].Btl NASAL 2 spray TID PRN PRN Administration NASAL DRYNESS Sodium Chloride 250 ml 09/04/21 10:27 09/04/21 10:42 0.9% Normal Saline 250 Ml Iv.Soln. IV 250 ml DAILY PRN Administration IV antibiotic flush Sodium Chloride 10 - 40 ml 09/04/21 10:46 10/08/21 00:03 0.9% Saline Lock 10 Ml Syringe IV 10 ml UD PRN Administration SALINE FLUSH Problem List (Last Reviewed 09/25/21 @ 10:09 by Gracia Culver) Chronic kidney disease, stage 4 (severe) (Chronic) Malnutrition (Acute) Depression (Acute) Hypoxia (Acute) Urine retention (Acute) Allergic dermatitis (Suspected) Intertrigo (Acute) Hypercalcemia (Acute) Heme + stool (Acute) Acute respiratory failure with hypoxemia (Acute) Hospital acquired PNA (Acute) Acute on chronic systolic CHF (congestive heart failure) (Chronic) Iron deficiency anemia (Acute) Sciatica (Acute) Atrial fibrillation (Acute) Gastroesophageal reflux disease (Acute) Hypothyroidism (Acute) Chronic kidney disease, stage 3b (Acute) Pulmonary hypertension (Acute) Coronary artery disease (Acute) Acute kidney injury (Acute) Infected seroma due to and not concurrent with procedure (Acute) Debility (Acute) Chronic anticoagulation (Chronic) Chronic combined systolic and diastolic CHF (congestive heart failure) (Chronic) Secondary pulmonary arterial hypertension (Chronic) Vital Signs Temp Pulse Resp BP Pulse Ox O2 Del Method O2 Flow Rate 96.9 F L 116 H 18 95/40 L 94 Room Air 1 10/07/21 14:00 10/08/21 06:19 10/07/21 14:00 10/08/21 06:19 10/07/21 14:00 10/08/21 10:00 10/08/21 10:03 FiO2 35 09/07/21 09:37 Oxygen Flow Rate (L/min) 1 Oxygen Delivery Method Room Air Weight: 84.595 kg Body Mass Index (BMI) 38.9 Sodium 133 mmol/L (136-145) L 10/03/21 06:30 Potassium 4.0 mmol/L (3.5-5.1) 10/03/21 06:30 Chloride 91 mmol/L (98-107) L 10/03/21 06:30 Carbon Dioxide 34.0 mmol/L (21.0-32.0) H 10/03/21 06:30 Anion Gap 8 (5-15) 10/03/21 06:30 BUN 63 mg/dL (7-18) H 10/03/21 06:30 Creatinine 1.76 mg/dL (0.55-1.02) H 10/03/21 06:30 Est GFR (MDRD) Af Amer 35 mL/min (>60) L 10/03/21 06:30 Est GFR (MDRD) Non-Af 29 mL/min (>60) L 10/03/21 06:30 BUN/Creatinine Ratio 35.8 RATIO (10-20) H 10/03/21 06:30 Glucose 124 mg/dL (74-106) H 10/03/21 06:30 Vancomycin Trough 19.4 ug/mL (5.0-15.0) H 09/08/21 09:29 Random Vancomycin 16.7 ug/mL (0.0-15.0) H 09/09/21 05:13 Assessment/Plan: 1. Pain: acetaminophen 1000mg PO Q6H PRN pain 1-5 and oxycodone 5 mg PO Q4H PRN pain 6-10. Resident has received 52 tablets of acetaminophen for a pain score of 2-10 in the hip,ankle, back, groin. Has received 29 tablets of oxycodone for a pain score of 6-10 in hip and groin areas . Patient reports pain of 0-2 post- medication, responding well to medication. Please continue to monitor for increased pain,PRN usage, constipation, and respiratory depression. Last documented bowel movement 10/06/21? 2. Bowel: senna/docusate 2T PO BID, psyllium 1 packet PO daily and bisacodyl 10mg RC x1 PRN constipation. Resident has not required a dose of bisacodyl. Last documented bowel movement was 10/06/21. Resident has refused a few doses of psyllium and senna/docusate due to diarrhea. Please continue to monitor for constipation, diarrhea and PRN usage. 3. Left prosthetic hip infection: Ciprofloxacin 500 mg q18h, metronidazole 500mg BID. Infectious disease is seeing resident. Please continue to monitor for S/S of infection, diarrhea, tendon/muscle pain, and renal function (CrCl 23.9 mL/min)? 4. Atrial fibrillation/CAD s/p CABG and stent/CHF: metoprolol tartrate 25mg PO Q8, apixaban 2.5mg PO BID, furosemide 80 mg IV daily, metolazone 5 mg PO daily clopidogrel 75mg PO daily and nitroglycerin 0.4mg SL Q5M PRN chest pain. Please continue to monitor BP (last 112/55), HR (last 93), S/S of bleeding, hemoglobin (last 9.8g/dL), sodium (last 133mmol/L), potassium (last 4.0mmol/L), renal function and chest pain. Eliquis is appropriate for renal function and age. Resident has not required a dose of nitroglycerin.? 5. Bibasilar pneumonia: guaifenesin 600 mg PO BID, albuterol 2.5mg nebulized solution Q4H and Q2H PRN wheezing,albuterol inhaler 2 puffs q4h prn? . Please continue to monitor renal function, diarrhea, HR and wheezing. Resident has received 4 doses of PRN albuterol nebulizer. No doses of inhaler used? 6. Iron deficiency anemia: ferrous sulfate 325 mg PO BIDCM and vitamin C 500mg PO BID. Please continue to monitor hemoglobin (last 9.8g/dL), constipation and dark stools.? 7. Hypothyroidism: levothyroxine 125 mcg PO daily. Please continue to monitor TSH (last 08/19/21) and for S/S of hypo/hyperthyroidism.? 8. GERD: pantoprazole 40mg PO BID. Please continue to monitor for S/S of GERD and diarrhea. May also encourage non-pharmacologic treatments to help decrease GERD flare-ups. 9. Dry nose: sodium chloride nasal spray 2sprays TID PRN nasal dryness. Please continue to monitor for nasal dryness and PRN usage. Resident has received 1 dose.? ? 10. Nutrition and vitamin D deficiencies: multivitamin with minerals 1T PO DAILYCM, cholecalciferol 25mcg PO daily. Please continue to monitor vitamin D (last 09/06/21). 11. Insomnia: melatonin 3 mg PO QHS. Please continue to monitor sleep habits? 12. Nausea/Vomiting: zofran 4 mg PO q8h PRN. Please continue to monitor for N/V, and PRN usage. Resident has had 1 dose? Assessment/Plan for indications treated with psychotropic medications: 1. Neuropathic pain: gabapentin 300 mg PO TID. Based on CrCl of 23.9 mL/min, recommended dose of gabapentin is 200 - 700mg once daily. Please consider changing to 600mg PO daily if clinically appropriate. Thanks. Please continue to monitor for confusion and renal function. 2. Malnutrition/Depression: Remeron 7.5 mg PO QHS. Please continue to monitor eating habits, and S/S of depression. GDR is not appropriate at this time. Resident was just started on this medication. Documented poor appetite, resident is too weak to feed self consistently? ?3. Pruritus: hydroxyzine 10mg PO q8h PRN. Please continue to monitor for pruritus, has had 11 doses. Not on medication for mental health indication. GDR not appropriate at this time Medical chart and medication regimen reviewed. The following medication irregularities or issues were identified: 1. Ciprofloxacin and Flagyl: On medications without a current stop date. ID is seeing the patient. Please evaluate current therapy and determine a stop date as clinically indicated. 2. Insomnia: no indication listed on patient profile please consider adding one or discontinuing the melatonin. Thanks? 3. Nausea/Vomiting: no indication listed on residents profile please consider adding one or discontinuing the zofran. Thanks Date of Note:: 10/08/21
[2021-10-08] MEDS: Metoprolol Tartrate 25 MG Tablet PO ×2 (15:05→22:26)
[2021-10-08] MEDS: Ciprofloxacin 500 MG Tablet PO (17:22)
[2021-10-08] MEDS: Mirtazapine 15 MG Tablet 7.5 MG PO (22:26)
[2021-10-08] MEDS: MELATONIN 3 MG TABLET PO (22:27)
[2021-10-09 06:26] VITALS: BP 120/75; PULSE 89
[2021-10-09 06:28] VITALS: PULSE 89
[2021-10-09] MEDS: metOLazone 5 MG Tablet PO (06:28)
[2021-10-09] MEDS: Levothyroxine 125 MCG Tablet PO (06:28)
[2021-10-09] MEDS: APIXABAN 2.5 MG TABLET PO ×2 (06:28→17:25)
[2021-10-09] MEDS: Furosemide 80 MG Tablet PO (06:28)
[2021-10-09] MEDS: Metoprolol Tartrate 25 MG Tablet PO ×2 (06:28→13:40)
[2021-10-09] MEDS: metroNIDAZOLE 500 MG Tablet PO ×2 (06:28→17:25)
[2021-10-09] MEDS: Senna/Docusate Sodium 1 Tablet 2 TABLET PO ×2 (06:28→17:26)
[2021-10-09] MEDS: guaiFENesin 600 MG Tablet PO ×2 (06:28→17:27)
[2021-10-09] MEDS: Clopidogrel Bisulfate 75 MG Tablet PO (06:28)
[2021-10-09] MEDS: Psyllium 1 PACKET PO (06:28)
[2021-10-09] MEDS: Pantoprazole Sodium 40 MG Tablet PO ×2 (06:28→17:25)
[2021-10-09] MEDS: Petrolatum 33% Tube 1 APPLIC TOPICAL ×2 (06:30→17:25)
[2021-10-09] MEDS: Gabapentin 300 MG Capsule PO ×3 (07:43→17:21)
[2021-10-09] MEDS: Potassium Chloride Oral Tablet 20 MEQ PO (07:43)
[2021-10-09] MEDS: Multivitamins,Ther W-Minerals Tablet 1 TABLET PO (07:43)
[2021-10-09] MEDS: Cholecalciferol (VIT D3) 25 MCG TABLET (1,000 UNITS) PO (07:44)
[2021-10-09] MEDS: Ascorbic Acid 500 MG Tablet PO ×2 (07:44→17:25)
[2021-10-09] MEDS: Ciprofloxacin 500 MG Tablet PO (10:23)
[2021-10-09] MEDS: Menthol/Lanolin/Calamine/Znox 113 GM Tube 1 APPLIC TOPICAL ×2 (10:26→20:14)
[2021-10-09] MEDS: Nystatin Powder 15gm Bottle 1 APPLIC TOPICAL ×2 (10:27→20:15)
[2021-10-09] MEDS: oxyCODONE 5 MG Tablet PO ×2 (13:04→20:17)
[2021-10-09 13:40] VITALS: PULSE 92
[2021-10-09 14:00] VITALS: BP 111/56; BP 163/76; PULSE 82; PULSE 92; RESP 14; RESP 18; TEMP 36.1; TEMP 36.4; O2SAT 90; O2SAT 94
[2021-10-09] MEDS: Arthritis Pain Compound 60 CLICK TUBE TOPICAL (17:24)
[2021-10-09] MEDS: Mirtazapine 15 MG Tablet 7.5 MG PO (20:12)
[2021-10-09 20:13] VITALS: BP 105/62; PULSE 61
[2021-10-09] MEDS: MELATONIN 3 MG TABLET PO (20:13)
[2021-10-10 05:07] VITALS: BP 145/52; PULSE 95
[2021-10-10] MEDS: Senna/Docusate Sodium 1 Tablet 2 TABLET PO ×2 (05:08→18:31)
[2021-10-10] MEDS: Ciprofloxacin 500 MG Tablet PO ×2 (05:08→22:46)
[2021-10-10 05:09] VITALS: BP 145/52; PULSE 95
[2021-10-10] MEDS: metOLazone 5 MG Tablet PO (05:09)
[2021-10-10] MEDS: Clopidogrel Bisulfate 75 MG Tablet PO (05:09)
[2021-10-10] MEDS: metroNIDAZOLE 500 MG Tablet PO ×2 (05:09→18:31)
[2021-10-10] MEDS: Metoprolol Tartrate 25 MG Tablet PO ×2 (05:09→22:43)
[2021-10-10] MEDS: Levothyroxine 125 MCG Tablet PO (05:09)
[2021-10-10] MEDS: guaiFENesin 600 MG Tablet PO ×2 (05:09→18:31)
[2021-10-10] MEDS: APIXABAN 2.5 MG TABLET PO ×2 (05:09→18:31)
[2021-10-10] MEDS: Pantoprazole Sodium 40 MG Tablet PO ×2 (05:09→18:31)
[2021-10-10] MEDS: Furosemide 80 MG Tablet PO (05:09)
[2021-10-10] MEDS: Petrolatum 33% Tube 1 APPLIC TOPICAL (05:10)
[2021-10-10] MEDS: Arthritis Pain Compound 60 CLICK TUBE TOPICAL ×2 (05:10→18:31)
[2021-10-10] MEDS: oxyCODONE 5 MG Tablet PO ×3 (05:22→22:41)
[2021-10-10 07:50] VITALS: O2SAT 92
[2021-10-10] MEDS: Gabapentin 300 MG Capsule PO ×3 (10:01→18:35)
[2021-10-10] MEDS: Potassium Chloride Oral Tablet 20 MEQ PO (10:01)
[2021-10-10] MEDS: Multivitamins,Ther W-Minerals Tablet 1 TABLET PO (10:02)
[2021-10-10] MEDS: Ascorbic Acid 500 MG Tablet PO ×2 (10:02→16:38)
[2021-10-10] MEDS: Cholecalciferol (VIT D3) 25 MCG TABLET (1,000 UNITS) PO (10:03)
[2021-10-10] MEDS: Acetaminophen 500 MG Tablet 1000 MG PO (10:13)
[2021-10-10] MEDS: Nystatin Powder 15gm Bottle 1 APPLIC TOPICAL ×2 (10:17→22:51)
[2021-10-10] MEDS: Menthol/Lanolin/Calamine/Znox 113 GM Tube 1 APPLIC TOPICAL ×2 (10:18→22:51)
[2021-10-10 14:00] VITALS: BP 124/80; PULSE 72; RESP 14; O2SAT 90
[2021-10-10] MEDS: 0.9% Saline Lock 10 ML Syringe IV (16:38)
[2021-10-10] MEDS: hydrOXYzine 10 MG Tablet PO (22:42)
[2021-10-10 22:43] VITALS: BP 124/65; PULSE 87
[2021-10-10] MEDS: Mirtazapine 15 MG Tablet 7.5 MG PO (22:45)
[2021-10-10] MEDS: MELATONIN 3 MG TABLET PO (22:45)
[2021-10-11] MEDS: Psyllium 1 PACKET PO (05:16)
[2021-10-11] MEDS: Senna/Docusate Sodium 1 Tablet 2 TABLET PO ×2 (05:18→17:14)
[2021-10-11] MEDS: Levothyroxine 125 MCG Tablet PO (05:18)
[2021-10-11] MEDS: guaiFENesin 600 MG Tablet PO ×2 (05:19→17:14)
[2021-10-11] MEDS: Pantoprazole Sodium 40 MG Tablet PO ×2 (05:19→17:14)
[2021-10-11] MEDS: Clopidogrel Bisulfate 75 MG Tablet PO (05:19)
[2021-10-11 05:20] VITALS: BP 124/61; PULSE 97
[2021-10-11] MEDS: Metoprolol Tartrate 25 MG Tablet PO ×3 (05:20→20:01)
[2021-10-11] MEDS: APIXABAN 2.5 MG TABLET PO ×2 (05:20→17:14)
[2021-10-11] MEDS: metOLazone 5 MG Tablet PO (05:20)
[2021-10-11] MEDS: Furosemide 80 MG Tablet PO (05:20)
[2021-10-11] MEDS: metroNIDAZOLE 500 MG Tablet PO ×2 (05:21→17:14)
[2021-10-11] MEDS: Arthritis Pain Compound 60 CLICK TUBE TOPICAL ×2 (05:21→17:14)
[2021-10-11] MEDS: Petrolatum 33% Tube 1 APPLIC TOPICAL ×2 (05:28→20:33)
[2021-10-11] MEDS: oxyCODONE 5 MG Tablet PO ×2 (05:35→20:03)
[2021-10-11 08:10] VITALS: O2SAT 91
[2021-10-11] MEDS: 0.9% Saline Lock 10 ML Syringe IV (09:08)
[2021-10-11] MEDS: Gabapentin 300 MG Capsule PO ×3 (09:09→17:13)
[2021-10-11] MEDS: Menthol/Lanolin/Calamine/Znox 113 GM Tube 1 APPLIC TOPICAL ×2 (09:09→20:01)
[2021-10-11] MEDS: Cholecalciferol (VIT D3) 25 MCG TABLET (1,000 UNITS) PO (09:09)
[2021-10-11] MEDS: Ascorbic Acid 500 MG Tablet PO ×2 (09:09→17:13)
[2021-10-11] MEDS: Potassium Chloride Oral Tablet 20 MEQ PO (09:09)
[2021-10-11] MEDS: Multivitamins,Ther W-Minerals Tablet 1 TABLET PO (09:09)
[2021-10-11] MEDS: Nystatin Powder 15gm Bottle 1 APPLIC TOPICAL ×2 (09:10→20:03)
[2021-10-11 13:14] VITALS: BP 121/63; PULSE 89
[2021-10-11 14:00] VITALS: BP 107/56; PULSE 66; RESP 14; TEMP 36.1; O2SAT 96
[2021-10-11] MEDS: Ondansetron ODT 4 MG Tablet PO (16:48)
[2021-10-11] MEDS: Ciprofloxacin 500 MG Tablet PO (17:13)
[2021-10-11 20:00] VITALS: PULSE 98; O2SAT 92
[2021-10-11 20:01] VITALS: BP 124/62; PULSE 98
[2021-10-11] MEDS: Mirtazapine 15 MG Tablet 7.5 MG PO (20:02)
[2021-10-11] MEDS: MELATONIN 3 MG TABLET PO (20:03)
[2021-10-11] MEDS: hydrOXYzine 10 MG Tablet PO (20:04)
[2021-10-12] VITALS (11 sets, daily range): BP systolic 90–116; BP diastolic 43–62; PULSE 63–108; RESP 18; TEMP 35.8; O2SAT 92–94
--- NOTE | 2021-10-12 04:16 | NURSING ---
During nursing rounds at 0400, pt noted to be sitting on the side of her bed, not in distress. Mild confusion noted regarding time but easily reoriented. Pt was assisted onto BSC via 2 assist. A small amount of blood was noted in brief at this time. Pt stated she felt pain when scooting to the side of her bed. Abrasion noted on labia majora, likely from the friction of the brief while pt was moving herself in bed. Area cleansed, no additional bleeding noted. Educated pt on importance of using call light to get assistance. Pt states understanding and denies additional needs at this time. RN aware.
[2021-10-12] MEDS: Arthritis Pain Compound 60 CLICK TUBE TOPICAL ×2 (04:38→17:41)
[2021-10-12] MEDS: oxyCODONE 5 MG Tablet PO ×2 (04:38→13:53)
[2021-10-12] MEDS: Metoprolol Tartrate 25 MG Tablet PO ×2 (04:39→13:53)
[2021-10-12] MEDS: APIXABAN 2.5 MG TABLET PO ×2 (04:39→17:42)
[2021-10-12] MEDS: Furosemide 80 MG Tablet PO (04:39)
[2021-10-12] MEDS: guaiFENesin 600 MG Tablet PO ×2 (04:40→17:43)
[2021-10-12] MEDS: Levothyroxine 125 MCG Tablet PO (04:40)
[2021-10-12] MEDS: metOLazone 5 MG Tablet PO (04:40)
[2021-10-12] MEDS: metroNIDAZOLE 500 MG Tablet PO ×2 (04:40→17:43)
[2021-10-12] MEDS: Pantoprazole Sodium 40 MG Tablet PO ×2 (04:40→17:43)
[2021-10-12] MEDS: Clopidogrel Bisulfate 75 MG Tablet PO (04:41)
[2021-10-12] MEDS: Petrolatum 33% Tube 1 APPLIC TOPICAL ×2 (04:41→17:44)
[2021-10-12] MEDS: Ondansetron ODT 4 MG Tablet PO (04:46)
--- NOTE | 2021-10-12 06:44 | NURSING ---
During nursing rounds at 0400, pt noted to be sitting on the side of her bed, not in distress. Mild confusion noted regarding time but easily reoriented. Pt was assisted onto BSC via 2 assist. A small amount of blood was noted in brief at this time. Pt stated she felt pain when scooting to the side of her bed. Abrasion noted on left inner thigh crease, likely from the friction of the brief while pt was moving herself in bed. Area cleansed, no additional bleeding noted. Educated pt on importance of using call light to get assistance. Pt states understanding and denies additional needs at this time. RN aware.
[2021-10-12] MEDS: Potassium Chloride Oral Tablet 20 MEQ PO (08:01)
[2021-10-12] MEDS: Gabapentin 300 MG Capsule PO ×3 (08:01→17:41)
[2021-10-12] MEDS: Multivitamins,Ther W-Minerals Tablet 1 TABLET PO (08:01)
[2021-10-12] MEDS: Nystatin Powder 15gm Bottle 1 APPLIC TOPICAL ×2 (08:02→21:34)
[2021-10-12] MEDS: Cholecalciferol (VIT D3) 25 MCG TABLET (1,000 UNITS) PO (08:02)
[2021-10-12] MEDS: Ascorbic Acid 500 MG Tablet PO ×2 (08:02→17:42)
[2021-10-12] MEDS: Menthol/Lanolin/Calamine/Znox 113 GM Tube 1 APPLIC TOPICAL ×2 (08:03→21:34)
[2021-10-12] MEDS: Ciprofloxacin 500 MG Tablet PO (11:08)
--- NOTE | 2021-10-12 12:35 | CASEMGMT ---
Social Work Confirmed with pt and dtr the plan remains once insurance issues LCD, pt will transfer to [place], [facility], private pay. The goal is for pt to return home with but needs to be about Jeremy x1 for to care for pt. Insurance update today. Will await outcome. Kriss Coates, DESEAN GUYW
--- NOTE | 2021-10-12 13:50 | NURSING ---
Patient called out and said she was having left shoulder pain. Medicated per orders for pain. About 5-10 min later she called out again and said the pain was going up into her neck. Vitals signs were taken and they were wnl. Went back in to reassess patient and she said the pain was still the same and this time was also in right shoulder. Dr. Livingston was paged and notified of these events. An EKG order was placed. Will monitor.
--- NOTE | 2021-10-12 14:41 | EKG12_ITS ---
Test Reason : LEFT SHOLDER PAIN Blood Pressure : / mmHG Vent. Rate : 070 BPM Atrial Rate : 375 BPM P-R Int : 000 ms QRS Dur : 114 ms QT Int : 462 ms P-R-T Axes : 000 -44 022 degrees QTc Int : 498 ms Atrial fibrillation Left axis deviation Incomplete left bundle branch block Inferior infarct , age undetermined Abnormal ECG Confirmed by ERIN JIMENEZ, MARLENE ([id number]), society editor SABRINA FLORES ([id number]) on 10/15/2021 8:17:12 AM Referred By: SHAYY Confirmed By:MARLENE KHAN MD
--- NOTE | 2021-10-12 14:44 | NURSING ---
RT called for EKG at this time
[2021-10-12] MEDS: Nitroglycerin (INPATIENT USE) 0.4 MG TAB.SUBL SL (15:59)
[2021-10-12 17:29] LABS: Troponin-I HS 53 pg/mL (3.0-54.0)
[2021-10-12] MEDS: Senna/Docusate Sodium 1 Tablet 2 TABLET PO (17:43)
[2021-10-12 19:10] LABS: Troponin-I HS 54 pg/mL (3.0-54.0)
[2021-10-12] MEDS: MELATONIN 3 MG TABLET PO (21:23)
[2021-10-12] MEDS: Mirtazapine 15 MG Tablet 7.5 MG PO (21:25)
[2021-10-12 22:56] LABS: Troponin-I HS 55 pg/mL (3.0-54.0)
[2021-10-13] VITALS (7 sets, daily range): BP systolic 107–136; BP diastolic 48–82; PULSE 70–79; RESP 16; TEMP 35.5; O2SAT 90–95
[2021-10-13] MEDS: 0.9% Saline Lock 10 ML Syringe IV (04:08)
[2021-10-13] MEDS: Ciprofloxacin 500 MG Tablet PO ×2 (04:08→21:58)
[2021-10-13] MEDS: guaiFENesin 600 MG Tablet PO ×2 (05:47→17:22)
[2021-10-13] MEDS: APIXABAN 2.5 MG TABLET PO ×2 (05:47→17:21)
[2021-10-13] MEDS: Pantoprazole Sodium 40 MG Tablet PO ×2 (05:47→17:23)
[2021-10-13] MEDS: Furosemide 80 MG Tablet PO (05:47)
[2021-10-13] MEDS: metroNIDAZOLE 500 MG Tablet PO ×2 (05:47→17:22)
[2021-10-13] MEDS: metOLazone 5 MG Tablet PO (05:47)
[2021-10-13] MEDS: Levothyroxine 125 MCG Tablet PO (05:47)
[2021-10-13] MEDS: Senna/Docusate Sodium 1 Tablet 2 TABLET PO (05:47)
[2021-10-13] MEDS: Clopidogrel Bisulfate 75 MG Tablet PO (05:47)
[2021-10-13] MEDS: Psyllium 1 PACKET PO (05:48)
[2021-10-13] MEDS: Arthritis Pain Compound 60 CLICK TUBE TOPICAL ×2 (05:48→17:20)
[2021-10-13] MEDS: Acetaminophen 500 MG Tablet 1000 MG PO (06:02)
[2021-10-13] MEDS: Petrolatum 33% Tube 1 APPLIC TOPICAL ×2 (06:07→17:21)
[2021-10-13] MEDS: Ascorbic Acid 500 MG Tablet PO ×2 (08:16→17:19)
[2021-10-13] MEDS: Multivitamins,Ther W-Minerals Tablet 1 TABLET PO (08:16)
[2021-10-13] MEDS: Gabapentin 300 MG Capsule PO ×3 (08:16→17:20)
[2021-10-13] MEDS: Cholecalciferol (VIT D3) 25 MCG TABLET (1,000 UNITS) PO (08:16)
[2021-10-13] MEDS: Potassium Chloride Oral Tablet 20 MEQ PO (08:16)
[2021-10-13] MEDS: Menthol/Lanolin/Calamine/Znox 113 GM Tube 1 APPLIC TOPICAL ×2 (08:17→21:58)
[2021-10-13] MEDS: Nystatin Powder 15gm Bottle 1 APPLIC TOPICAL ×2 (08:18→21:59)
[2021-10-13 08:24] LABS: Absolute Lymphocyte Count 0.62 X10^3/uL (0.83-4.51); Absolute Neutrophil Count 3.8 X10^3/uL (2.0-7.7); Basophil# 0.07 X10^3/uL; Basophil% 1.2 % (0-1); Eosinophil# 0.22 X10^3/uL; Eosinophils% 3.7 % (0-5); Hematocrit 32.4 % (37-47); Hemoglobin 10.5 g/dL (12.0-15.0); Lymphocyte # 0.62 X10^3/ul (0.83-4.51); Lymphocyte % 10.5 % (19-41); Mean Corp Hgb Conc 32.4 g/dL (32-36); Mean Corpuscular Hgb 31.1 pg (27.0-32.0); Mean Corpuscular Volume 95.9 fL (81-99); Mean Platelet Vol. 10.2 fl (6.2-12.0); Monocyte# 1.15 X10^3/uL; Monocyte% 19.6 % (0-10); NRBC Flagged by Analyzer 0 % (0-5); Neutrophil % 64.7 % (47-70); POSITIVE MORPHOLOGY YES; Platelet Count 255 K/mm3 (150-450); RBC Distribution Width CV 19.2 % (11.6-14.6); RBC Distribution Width SD 67.2 fl (35.1-43.9); Red Blood Count 3.38 M/mm3 (4.2-5.4); White Blood Count 5.9 K/mm3 (4.4-11.0)
[2021-10-13 08:25] LABS: Differential Indicated SCAN CRITERIA MET
[2021-10-13 08:46] LABS: Anisocytosis 1+; Platelet Estimate ADEQUATE (ADEQ); Poikilocytosis 1+
[2021-10-13 08:47] LABS: Hypochromasia RARE; Ovalocyte 1+
[2021-10-13 08:50] LABS: Anion Gap 9 (5-15); BUN 70 mg/dL (7-18); BUN/Creat Ratio 35.9 RATIO (10-20); Calcium,Total 9.1 mg/dL (8.5-10.1); Chloride 87 mmol/L (98-107); Creatinine, Serum 1.95 mg/dL (0.55-1.02); EST Glomerular Filtration Rate 26 mL/min (>60); Est Glom Filt Rate - Afr Amer 31 mL/min (>60); Glucose 134 mg/dL (74-106); Potassium 4.4 mmol/L (3.5-5.1); Sodium Level 130 mmol/L (136-145)
--- NOTE | 2021-10-13 09:32 | CASEMGMT ---
Social Work Insurance approved with [employer]D 10/20. SW spoke with pt to update [employer]D and being on 51/100 [facility] days. Educated to using skilled days as appropriate, but also understanding if pt transfers to [facility], those days are private pay. Pt states she is x1 assist and is hoping to DC home. [employer] DES[employer] confirms pt is making progress but pt is needing more assistance with ADLs. Pt, therapy and SW agreed to continuing working in therapy this week for continued progress, then therapy to schedule family training with and dtr to determine if family can assist pt at current level to safely DC home. SW to continue to follow. Kriss Coates, LATHE P[employer]ER [employer] REPAIRER
--- NOTE | 2021-10-13 15:53 | NURSING ---
Family notified of covid positive staff member
[2021-10-13 19:49] LABS: Osmolality, Serum 312 mOsm/KG (280-301)
[2021-10-13] MEDS: oxyCODONE 5 MG Tablet PO (21:57)
[2021-10-13] MEDS: Metoprolol Tartrate 25 MG Tablet PO (21:58)
[2021-10-13] MEDS: MELATONIN 3 MG TABLET PO (21:58)
[2021-10-13] MEDS: Mirtazapine 15 MG Tablet 7.5 MG PO (21:58)
[2021-10-14 06:24] VITALS: BP 104/62; PULSE 93
[2021-10-14] MEDS: metOLazone 5 MG Tablet PO (06:28)
[2021-10-14] MEDS: APIXABAN 2.5 MG TABLET PO ×2 (06:28→17:17)
[2021-10-14] MEDS: guaiFENesin 600 MG Tablet PO ×2 (06:28→17:17)
[2021-10-14] MEDS: Clopidogrel Bisulfate 75 MG Tablet PO (06:28)
[2021-10-14] MEDS: Psyllium 1 PACKET PO (06:28)
[2021-10-14] MEDS: Levothyroxine 125 MCG Tablet PO (06:28)
[2021-10-14] MEDS: Petrolatum 33% Tube 1 APPLIC TOPICAL (06:29)
[2021-10-14] MEDS: Furosemide 80 MG Tablet PO (06:29)
[2021-10-14] MEDS: Pantoprazole Sodium 40 MG Tablet PO ×2 (06:29→17:17)
[2021-10-14] MEDS: metroNIDAZOLE 500 MG Tablet PO ×2 (06:29→17:17)
[2021-10-14] MEDS: Arthritis Pain Compound 60 CLICK TUBE TOPICAL ×2 (06:30→17:17)
[2021-10-14] MEDS: Nystatin Powder 15gm Bottle 1 APPLIC TOPICAL ×2 (07:46→20:12)
[2021-10-14] MEDS: Multivitamins,Ther W-Minerals Tablet 1 TABLET PO (07:47)
[2021-10-14] MEDS: Gabapentin 300 MG Capsule PO ×3 (07:47→17:16)
[2021-10-14] MEDS: Cholecalciferol (VIT D3) 25 MCG TABLET (1,000 UNITS) PO (07:47)
[2021-10-14] MEDS: Potassium Chloride Oral Tablet 20 MEQ PO (07:47)
[2021-10-14] MEDS: Ascorbic Acid 500 MG Tablet PO ×2 (07:47→17:17)
[2021-10-14] MEDS: Menthol/Lanolin/Calamine/Znox 113 GM Tube 1 APPLIC TOPICAL (07:48)
--- NOTE | 2021-10-14 07:50 | RAD_ITS ---
STUDY: X-RAY CHEST REASON FOR EXAM: Female, 86 years old. Shortness of breath, rhonchi. TECHNIQUE: PA and lateral views of the chest. COMPARISON: Comparison is made with prior study 09/25/2021. FINDINGS: Residual bibasilar patchy infiltrates although there has been some improvement. Further follow-up is recommended. Mild vascular congestion. There is no demonstrated pleural abnormality. Sternal cerclage wires and vascular clips are present from a prior sternotomy and coronary artery bypass graft procedure (CABG). Normal mediastinum and seun. Normal visualized pulmonary arteries. There is atherosclerotic calcification of the aortic arch with tortuosity. There are diffuse degenerative changes of the visualized thoracic spine. There is degenerative osteoarthritis of the bilateral shoulders. Large hiatal hernia. RAD/Chest PA and Lateral IMPRESSION: Residual bibasilar infiltrates worse at the right lung base although there has been improvement. This is superimposed on mild vascular congestion and mild CHF. Electronically Signed: Manish Zapata MD at 13:06 EDT ,
[2021-10-14 08:23] LABS: Anion Gap 8 (5-15); BUN 68 mg/dL (7-18); BUN/Creat Ratio 35.2 RATIO (10-20); Calcium,Total 9.6 mg/dL (8.5-10.1); Chloride 89 mmol/L (98-107); Creatinine, Serum 1.93 mg/dL (0.55-1.02); EST Glomerular Filtration Rate 26 mL/min (>60); Est Glom Filt Rate - Afr Amer 32 mL/min (>60); Estimated Creatinine Clearance 29.49 ml/min; Glucose 123 mg/dL (74-106); Potassium 4.3 mmol/L (3.5-5.1); Sodium Level 129 mmol/L (136-145)
[2021-10-14 11:23] LABS: Urine Sodium 23 mmol/L (Not Establ.)
[2021-10-14 11:49] LABS: Osmolality, Urine 362 mOsm/KG
[2021-10-14 11:49] LABS: Osmolality, Serum 300 mOsm/KG (280-301)
[2021-10-14] MEDS: 0.9% Normal Saline 1,000 ML 60 ML IV (13:48)
[2021-10-14] MEDS: 0.9% Saline Lock 10 ML Syringe IV (13:49)
[2021-10-14 14:00] VITALS: BP 128/56; PULSE 80; RESP 14; TEMP 36.6; O2SAT 94
[2021-10-14 14:49] VITALS: BP 128/56; PULSE 80
[2021-10-14] MEDS: Metoprolol Tartrate 25 MG Tablet PO ×2 (14:49→20:03)
--- NOTE | 2021-10-14 16:18 | NURSING ---
Notified pt daughter Dilma today that a pt on TCU has tested positive for covid today.
[2021-10-14] MEDS: Ondansetron ODT 4 MG Tablet PO (17:16)
[2021-10-14] MEDS: Ciprofloxacin 500 MG Tablet PO (17:17)
[2021-10-14] MEDS: LORazepam 0.5 MG Tablet PO (20:02)
[2021-10-14] MEDS: oxyCODONE 5 MG Tablet PO (20:02)
[2021-10-14 20:03] VITALS: BP 114/68; PULSE 97
[2021-10-14] MEDS: MELATONIN 3 MG TABLET PO (20:04)
[2021-10-14] MEDS: Mirtazapine 15 MG Tablet 7.5 MG PO (20:04)
[2021-10-14 20:30] VITALS: O2SAT 92
[2021-10-15] MEDS: guaiFENesin 600 MG Tablet PO ×2 (05:19→17:00)
[2021-10-15] MEDS: APIXABAN 2.5 MG TABLET PO ×2 (05:19→17:00)
[2021-10-15] MEDS: Arthritis Pain Compound 60 CLICK TUBE TOPICAL ×2 (05:19→17:00)
[2021-10-15] MEDS: metOLazone 5 MG Tablet PO (05:19)
[2021-10-15] MEDS: Pantoprazole Sodium 40 MG Tablet PO ×2 (05:19→17:00)
[2021-10-15 05:20] VITALS: BP 128/64; PULSE 112
[2021-10-15] MEDS: Clopidogrel Bisulfate 75 MG Tablet PO (05:20)
[2021-10-15] MEDS: metroNIDAZOLE 500 MG Tablet PO ×2 (05:20→17:00)
[2021-10-15] MEDS: Levothyroxine 125 MCG Tablet PO (05:20)
[2021-10-15] MEDS: Metoprolol Tartrate 25 MG Tablet PO ×3 (05:20→20:51)
[2021-10-15] MEDS: Furosemide 80 MG Tablet PO (05:20)
[2021-10-15] MEDS: Petrolatum 33% Tube 1 APPLIC TOPICAL ×2 (05:23→21:03)
[2021-10-15 05:53] LABS: Anion Gap 11 (5-15); BUN 69 mg/dL (7-18); BUN/Creat Ratio 35.4 RATIO (10-20); Calcium,Total 9.2 mg/dL (8.5-10.1); Chloride 87 mmol/L (98-107); Creatinine, Serum 1.95 mg/dL (0.55-1.02); EST Glomerular Filtration Rate 26 mL/min (>60); Est Glom Filt Rate - Afr Amer 31 mL/min (>60); Estimated Creatinine Clearance 28.96 ml/min; Glucose 100 mg/dL (74-106); Potassium 4.8 mmol/L (3.5-5.1); Sodium Level 129 mmol/L (136-145)
[2021-10-15] MEDS: 0.9% Normal Saline 1,000 ML 60 ML IV ×2 (07:04→20:48)
[2021-10-15] MEDS: Gabapentin 300 MG Capsule PO ×3 (07:51→17:00)
[2021-10-15] MEDS: Potassium Chloride Oral Tablet 20 MEQ PO (07:51)
[2021-10-15] MEDS: Ascorbic Acid 500 MG Tablet PO ×2 (07:52→17:00)
[2021-10-15] MEDS: Cholecalciferol (VIT D3) 25 MCG TABLET (1,000 UNITS) PO (07:52)
[2021-10-15] MEDS: Multivitamins,Ther W-Minerals Tablet 1 TABLET PO (07:52)
[2021-10-15] MEDS: Menthol/Lanolin/Calamine/Znox 113 GM Tube 1 APPLIC TOPICAL ×2 (10:48→21:03)
[2021-10-15] MEDS: Nystatin Powder 15gm Bottle 1 APPLIC TOPICAL ×2 (10:48→21:03)
[2021-10-15] MEDS: Ciprofloxacin 500 MG Tablet PO (10:48)
[2021-10-15 14:00] VITALS: BP 121/73; PULSE 80; RESP 18; TEMP 35.8; O2SAT 96
[2021-10-15 14:20] VITALS: PULSE 72
[2021-10-15] MEDS: Ondansetron ODT 4 MG Tablet PO (16:58)
--- NOTE | 2021-10-15 18:44 | PN.TCU_ITS ---
Subjective Subjective Resident seen, examined for regulatory visit. She is doing well, advancing in therapy, able to go outside with twice daily. Objective Data Objective Data Vital Signs: Vital Signs Temp Pulse Resp BP Pulse Ox O2 Del Method O2 Flow Rate 96.5 F L 72 18 121/73 H 96 Room Air 1 10/15/21 14:00 10/15/21 14:20 10/15/21 14:00 10/15/21 14:00 10/15/21 14:00 10/15/21 14:00 10/09/21 14:33 FiO2 35 09/07/21 09:37 Oxygen Flow Rate (L/min) 1 Oxygen Delivery Method Room Air Weight: 89.584 kg Body Mass Index (BMI) 38.9 Intake & Output: Intake and Output for Last 24 Hours 10/13/21 10/14/21 10/15/21 23:59 23:59 23:59 Intake Total 480 / 480 540 / 540 1551 / 1551 Balance 480 / 480 540 / 540 1551 / 1551 Medical Nutrition Assessment Dietitian: Malnutrition Criteria Met Start: 09/09/21 10:25 Freq: Status: Active Protocol: Document 10/08/21 15:31 AG (Rec: 10/08/21 15:31 [id number]) Nutrition Malnutrition Evidence of Malnutrition Exists No Intake Problem Inadequate Oral Intake Etiology related to decreased appetite Signs/Symptoms as evidenced by inconsistent PO intake at meals, occassional refusal of meals, estimated PO intake meeting 50 -75% of estimated energy needs Status Active Problem Clinical Problem Biting/Chewing Difficulty Etiology related to dysphagia Signs/Symptoms as evidenced by need for mech altered consistency diet Status Active Problem Acute Disease or Injury Related Malnutrition Etiology - Signs/Symptoms - Status Inactive Problem Recommendation Dietitian Recommendations/Changes regular-easy to chew diet given poor PO intake at meals; will continue to offer ensure enlive 8oz and ensure pudding TID w/ meals. Small portions as requested by res; will fortify foods when able to increase nutrient density of foods offered. Lab / Micro Data Result Diagrams: 10/13/21 08:16 10/15/21 05:19 Labs: Laboratory Results - last 24 hr 10/15/21 05:19: Sodium 129 L, Potassium 4.8, Chloride 87 L, Carbon Dioxide 31.0, Anion Gap 11, BUN 69 H, Creatinine 1.95 H, Estim Creat Clear Calc 28.96, Est GFR (MDRD) Af Amer 31 L, Est GFR (MDRD) Non-Af 26 L, BUN/Creatinine Ratio 35.4 H, Glucose 100, Calcium 9.2 Micro: Microbiology 10/15/21 05:18 Nasal Secretion SARS-CoV-2 Antigen (Rapid) - Final 10/08/21 11:15 Nasal Secretion SARS-CoV-2 Antigen (Rapid) - Final 10/01/21 Unknown Nasal Secretion SARS-CoV-2 Antigen (Rapid) - Final 09/24/21 14:27 Nasal Secretion SARS-CoV-2 Antigen (Rapid) - Final 09/17/21 20:45 Urine Catheter - [place] Urine Culture - Final Yeast, not Carla albicans 09/17/21 09:10 Nasal Secretion SARS-CoV-2 Antigen (Rapid) - Final 09/06/21 10:00 Blood Culture (Wb) - Right Forearm Blood Culture - Final No growth in 5 days. 09/06/21 10:12 Blood Culture (Wb) - Right Hand Blood Culture - Final No growth in 5 days. 09/10/21 04:18 Nasal Secretion SARS-CoV-2 Antigen (Rapid) - Final 09/06/21 12:30 Urine Catheter - [place] Urine Culture - Final Presumptive C albicans 09/06/21 10:27 Mucosa - Nose Respiratory Panel (PCR) - Final 09/06/21 10:15 Nasal Secretion SARS-CoV-2 Antigen (Rapid) - Final Physical Exam Const alert General Appearance: cooperative HEENT normocephalic Eyes PERRL and EOMs intact bilaterally Neck supple, no JVD and no carotid bruits Resp normal respiratory effort, normal air movement and clear to auscultation bilaterally Cardio regular rate and regular rhythm GI normal to inspection, nondistended, normoactive bowel sounds, non-tender and non-distended Extremity normal capillary refill Extremity Narrative: PICC Left upper extremity. General Extremity: Negative for edema Skin no rashes or lesions noted General Skin Exam: no breakdown Psych affect normal Appearance: appropriate Assessment & Plan Assessment/Plan (1) Debility: (2) Infected seroma due to and not concurrent with procedure: (3) Left hip prosthetic joint infection: (4) Acute kidney injury: (5) HFrEF (heart failure with reduced ejection fraction): (6) Coronary artery disease: (7) Pulmonary hypertension: (8) Chronic kidney disease, stage 3b: (9) Hypothyroidism: (10) Gastroesophageal reflux disease: (11) Gastritis: (12) Esophageal ulcer: (13) Atrial fibrillation: (14) Sciatica: (15) Iron deficiency anemia: PLAN: Plan 86 year old female with below past medical history hospitalized for infected left hip wound, underwent irrigation debridement 08/20/[address] Nettles, complicated by acute kidney injury, acute on chronic systolic congestive heart failure, anemia secondary to esophageal ulcer, gastritis, admitted to TCU with debility, here for rehabilitation, strengthening, intravenous antibiotics, prior to discharge home with family. * Debility - PT/OT. * Dysphagia - ST. * Pain - Tylenol 1000mg q6h prn pain (1-5), Oxycodone 5mg q4h prn pain (6-10), Arthritis compound topical bid. * Bowel - senna/colace 2 tablets bid. * Adult immunization - Administer pneumonia vaccine, covid19 vaccine, flu vaccine as appropriate. * DVT prophylaxis - Not necessary, on Eliquis. * Atrial Fibrillation - Metoprolol 25mg q8, Eliquis 2.5mg bid. * Left prosthetic hip infection - Dr. Delacruz, Cipro 500mg q18, Flagyl 500mg bid. * Chronic systolic congestive heart failure - Metoprolol 25mg q8h, Lasix 80mg daily. * Neuropathic pain - Gabapentin 300mg tid. * Hypothyroidism - Levothyroxine 125mcg daily. * Coronary artery disease s/p cabg s/p stent - Metoprolol 25mg q8, Plavix 75mg daily. * GERD - Pantoprazole 40mg bid. * Anxiety - Lorazepam 0.5mg q4h prn. * Insomnia - Melatonin 3mg qhs. * Skin irritation - Calmoseptine topical bid, Petrolatum topical bid. * Tinea Corporis - Nystatin powder bid. Capacity Capacity Assessment Tool Can the patient make a choice & communicate that choice?: Yes Can the patient understand benefits, risks and alternatives?: Yes Can the patient make a logical, rational choice?: Yes Is the choice the patient makes consistent w/ their values?: Yes Is there an impending, emergent risk to the patient?: No Does the patient have an Advance Directive?: Yes Is there a Surrogate Available?: Yes i.e. HCPOA: Yes i.e. close relative (spouse, child, parent, sibling)?: Yes
[2021-10-15 20:00] VITALS: PULSE 83; O2SAT 94
[2021-10-15 20:51] VITALS: BP 115/61; PULSE 83
[2021-10-15] MEDS: Mirtazapine 15 MG Tablet 7.5 MG PO (20:51)
[2021-10-15] MEDS: MELATONIN 3 MG TABLET PO (20:52)
[2021-10-15] MEDS: LORazepam 0.5 MG Tablet PO (21:00)
[2021-10-15] MEDS: oxyCODONE 5 MG Tablet PO (21:01)
[2021-10-16] VITALS (7 sets, daily range): BP systolic 74–145; BP diastolic 45–72; PULSE 73–89; RESP 18–19; TEMP 36.6–36.8; O2SAT 92–94
[2021-10-16] MEDS: metroNIDAZOLE 500 MG Tablet PO ×2 (05:18→17:00)
[2021-10-16] MEDS: Ciprofloxacin 500 MG Tablet PO (05:18)
[2021-10-16] MEDS: APIXABAN 2.5 MG TABLET PO ×2 (05:18→17:00)
[2021-10-16] MEDS: Levothyroxine 125 MCG Tablet PO (05:18)
[2021-10-16] MEDS: Pantoprazole Sodium 40 MG Tablet PO ×2 (05:18→17:00)
[2021-10-16] MEDS: Senna/Docusate Sodium 1 Tablet 2 TABLET PO ×2 (05:18→17:00)
[2021-10-16] MEDS: Clopidogrel Bisulfate 75 MG Tablet PO (05:19)
[2021-10-16] MEDS: Arthritis Pain Compound 60 CLICK TUBE TOPICAL ×2 (05:19→16:59)
[2021-10-16] MEDS: Petrolatum 33% Tube 1 APPLIC TOPICAL (05:22)
[2021-10-16 05:53] LABS: Anion Gap 8 (5-15); BUN 70 mg/dL (7-18); BUN/Creat Ratio 34.7 RATIO (10-20); Calcium,Total 8.7 mg/dL (8.5-10.1); Chloride 89 mmol/L (98-107); Creatinine, Serum 2.02 mg/dL (0.55-1.02); EST Glomerular Filtration Rate 25 mL/min (>60); Est Glom Filt Rate - Afr Amer 30 mL/min (>60); Estimated Creatinine Clearance 29.32 ml/min; Glucose 91 mg/dL (74-106); Potassium 5.2 mmol/L (3.5-5.1); Sodium Level 128 mmol/L (136-145)
[2021-10-16] MEDS: Metoprolol Tartrate 25 MG Tablet PO ×2 (08:18→13:38)
[2021-10-16] MEDS: Furosemide 80 MG Tablet PO (08:18)
[2021-10-16] MEDS: Gabapentin 300 MG Capsule PO ×3 (08:19→17:00)
[2021-10-16] MEDS: Menthol/Lanolin/Calamine/Znox 113 GM Tube 1 APPLIC TOPICAL (08:20)
--- NOTE | 2021-10-16 10:02 | ST.MBS ---
Modified Barium Swallow - Patient Information Study Date: 10/16/21 Study Time: 09:00 Direct Billable Minutes: 120 Total Minutes procedure & reportin Diagnosis: I48.19, CKD N18.4 Referring Physician: Dave Livingston Chi Reason for Referral: Objectively assess swallow function, risk for aspiration, and determine recommendations for least restrictive diet textures and compensatory strategies to improve safety of swallow. Medical History: GALILEO HUSTON, is a 86 Female who presents to [facility] Emergency Department with wound. 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 Blood cultures sent, antibiotics given. Dr. Nettles performed irrigation, debridement left hip infected seroma. Resume Lasix 20mg bid for chronic systolic congestive heart failure. Increase metoprolol 25mg bid for tachycardia. Nausea, tachycardia, Hemoglobin drop, stool occult positive, consult GI. EGD showed bleeding esophageal ulcer, gastritis. Admit to TCU with debility, here for rehabilitation, strengthening, intravenous antibiotics, prior to discharge home with . Current Diet Ordered: EASY TO CHEW TEXTURES / THIN LIQUIDS Dentition: Natural Teeth Mental Status: WNL Respiratory Status: Oxygenating on Room Air - Penetration-Aspiration Scale Penetration-Aspiration Scale: OBJECTIVE ASSESSMENT OF SWALLOW FUNCTION (QUANTITATIVE ? PER TRIAL): PENETRATION / ASPIRATION SCALE (DSOUZA): 1 = does not enter airway 2 = enters airway/above vocal folds/ejected 3 = enters airway/above vocal folds/not ejected 4 = enters airway/contacts vocal folds/ejected 5 = enters airway/contacts vocal folds/not ejected 6 = enters airway/below vocal folds/ejected 7 = enters airway/below vocal folds/not ejected despite effort 8 = enters airway/below vocal folds/no effort VIDEOFLOROSCOPIC SCALE SCORE (DSOUZA): Grade I = aspiration of material that has penetrated into the laryngeal vestibule, intact cough reflex Grade II = aspiration < 10 % of the bolus, intact cough reflex Grade III = aspiration of < 10 % of the bolus, reduced cough reflex or aspiration of > 10 % of the bolus, intact cough reflex Grade IV = aspiration of > 10 % of the bolus, reduced cough reflex - Penetration-Aspiration Scale Score Thin Liquid via teaspoon Result: 1= does not enter airway Thin Liquid via teaspoon Trial 2 Result: 1= does not enter airway Thin Liquid via small single sip from cup Result: 2= enter airway/above vocal folds/ejected [place] Thick Liquid via small single sip from cup Result: 1= does not enter airway Honey Thick Liquid via small single sip from cup Result: 1= does not enter airway Pudding Result: 1= does not enter airway Thin Liquid via single sip from straw Result: 3= enters airways/above vocal folds/not ejected Cookie Result: 1= does not enter airway Thin Liquid via large single sip from cup Result: 3= enters airways/above vocal folds/not ejected Thin Liquid via small single sip from cup Trial 2 Result: 2= enter airway/above vocal folds/ejected - Oral Phase Labial Seal: No Labial Escape Tongue Control During Bolus Hold: Posterior escape of greater than half of bolus Bolus Preparation/Mastication: Slow prolonged chewing/mashing with complete recollection Bolus Transport/Lingual Motion: Repetitive/disorganized tongue motion Oral Residue: Residue collection on oral structures - Pharyngeal Phase Initiation of Pharyngeal Swallow: Bolus head in pyriforms Soft Palate Elevation: Trace column of contrast/air between soft palate and pharyngeal wall Laryngeal Elevation: Partial superior movement thyroid cart/partial apprx aryt-epig petiole Anterior Hyoid Excursion: Complete anterior movement Epiglottic Movement: Partial inversion Laryngeal Vestibule Closure at Height of Swallow: Incomplete; narrow column of air/contrast in laryngeal vestibule Pharyngeal Stripping Wave: Present - complete Pharyngoesophageal Segment Opening: Parital distension and partial duration; parital obstruction of flow Tongue Base Retraction: Trace column of contrast between tongue base & post. pharyngeal wall Pharyngeal Residue: Complete pharyngeal clearance - Esophageal Phase Esophageal Clearance: Minimal to no esophageal clearance - Treatment Strategies Effects of treatment strategies attemped:: controlled sip size = effective - Diagnosis/Impression Diagnosis: mild oropharyngeal dysphagia (R13.12) Impression: Oral phase primarily marked by? - repetitive and disorganized tongue control? - decreased bolus control resulting in posterior loss of greater than half of bolus to the pyriforms seen with various consistencies. - collection of residue seen in oral cavity post deglutition w/ ? cookie? Pharyngeal phase primarily marked by? -decreased airway closure during deglutition attributed to decreased laryngeal elevation and partial epiglottic inversion - laryngeal penetration seen w/ thin via cup and straw - cannot definitively rule out aspiration due to pt's body habitus. Noted patient taking large sip of thin via cup during trial - when cued for smaller sip improved airway closure. Esophageal phase primarily marked by? -minimal esophageal clearance w/ pudding. HOSPITAL SUPERINTENDENT assessed effectiveness of liquid wash to clear esophageal clearance w/ little to no success. Recommending f/u w/ GI for continued care.? - Recommendations Diet: Regular Textures - easy to chew , Thin Liquids Compensatory Strategies: Small Bites, Small Sips, No Straws, Slow Rate, Alternate bites/solids and sips/liquids, Remain sitting upright for 30 minutes after PO intake, Minimize/decrease distractions, Assist with verbal cues to use recommended strategies Supervision: Distant Supervision Recommend Repeat Modified Barium Swallow: TBD Need for Skilled Speech Therapy Services: Yes Comment: Patient requires intensive skilled speech-language intervention targeting:? continued diet texture management training and implementation of recommended compensatory strategies training and implementation of recommended oropharyngeal strengthening exercises to facilitate improved laryngeal vestibule closure, epiglottic inversion, tongue base retraction Recommended Referrals: GI Consult - continue to follow w/ GI Education Completed: 1. Described result of evaluation., 2. Pt understands evaluation & agrees with goals and treatment plan. - Status Active ST Patient: Active - Contact Information [facility] Speech Therapy:: Mita Mann M.A. [facility]-HOSPITAL SUPERINTENDENT Speech-Language Pathologist [facility] [address] [place] [address] [email or web address] [phone] 10/16/21 10:54
[2021-10-16] MEDS: Sodium Polystyrene Sulfonate 15 GM/60 ML UDC PO (11:04)
[2021-10-16] MEDS: Nystatin Powder 15gm Bottle 1 APPLIC TOPICAL (11:04)
[2021-10-16] MEDS: Sodium Chloride 1 GM Tablet PO ×2 (11:04→16:59)
[2021-10-16] MEDS: 0.9% Normal Saline 1,000 ML 60 ML IV (15:17)
--- NOTE | 2021-10-16 18:58 | NURSING ---
Daughter Eloise called in asking why patient is still dry heaving and has not been given any nausea medication. Advised Daughter this Nurse just arrived on unit and I would try to find day shift nurse. Day shift nurse is busy at this time. This Nurse talked with daughter after seeing a new order for Zofran 4mg q8h. Informed daughter I would ask day shift nurse to administer Zofran or this Nurse would administer medication before 19:30 hours, after I get report.
[2021-10-16] MEDS: Ondansetron ODT 4 MG Tablet PO (19:10)
--- NOTE | 2021-10-16 19:49 | NURSING ---
Patient called for Nurse to room. This nurse entered room and patient showed nurse Kleenex with moderate amount of bloody sputum on Kleenex. Patient continues of feeling nauseous. Denies SOB. Vitals obtained as charted. Crackles heard in lower lobes. +2-3 pitting edema noted in BLLE's. Increased from last night from +1 pitting. Oxygen placed on patient at 2 LPM via nasal cannula d/t oxygen saturation around 90-91%. Dr. Miki caicedo. New orders received. -Hold Eliquis until Tuesday10/20/21 -DC Plavix -DC IV Fluids -Chest x-ray -Sputum culture/gram stain -Lasix 80 mg IV push 20:09-Sputum culture sent to lab 20:15 patient was taken to radiology via cart by this Nurse. 20:20-Daughter Eloise called via telephone and updated with new orders. Informed if any other new concerns or orders this nurse would call back. 20:27-Patient returned to unit via cart from radiology.
--- NOTE | 2021-10-16 20:20 | RAD_ITS ---
STUDY: X-RAY CHEST REASON FOR EXAM: Female, 86 years old. Crackles/coughing/bloody sputum TECHNIQUE: XR Chest 2 Views COMPARISON: 8.31.22 FINDINGS: There are bilateral pleural effusions. There are bilateral infiltrates. There are multiple median sternotomy wires. Normal size heart. Normal mediastinum and seun. Normal visualized pulmonary arteries. There is atherosclerotic calcification of the aortic arch with tortuosity. There are diffuse degenerative changes of the visualized thoracic spine. There is degenerative osteoarthritis of the bilateral shoulders. There is a hiatal hernia. RAD/Chest PA and Lateral IMPRESSION: Pulmonary findings appear improved. Electronically Signed: Bryce Greene MD at 21:28 EDT ,
[2021-10-16] MEDS: Furosemide 100 MG/10 ML Vial 80 MG IV (20:57)
[2021-10-17] MEDS: Ondansetron ODT 4 MG Tablet PO (05:11)
[2021-10-17 05:12] VITALS: BP 116/67; PULSE 77
[2021-10-17] MEDS: Sodium Chloride 1 GM Tablet PO (05:12)
[2021-10-17] MEDS: 0.9% Saline Lock 10 ML Syringe IV (05:14)
[2021-10-17] MEDS: Petrolatum 33% Tube 1 APPLIC TOPICAL (05:14)
[2021-10-17] MEDS: Furosemide 80 MG Tablet PO (05:16)
[2021-10-17] MEDS: Gabapentin 300 MG Capsule PO (08:07)
[2021-10-17] MEDS: Acetaminophen 500 MG Tablet 1000 MG PO (08:07)
[2021-10-17] MEDS: metroNIDAZOLE 500 MG Tablet PO (08:08)
--- NOTE | 2021-10-17 08:15 | NURSING ---
pt coughed up moderate amount of sputum. No blood noted.
[2021-10-17 08:17] LABS: Anion Gap 12 (5-15); BUN 74 mg/dL (7-18); BUN/Creat Ratio 34.9 RATIO (10-20); Calcium,Total 9.3 mg/dL (8.5-10.1); Chloride 88 mmol/L (98-107); Creatinine, Serum 2.12 mg/dL (0.55-1.02); EST Glomerular Filtration Rate 24 mL/min (>60); Est Glom Filt Rate - Afr Amer 29 mL/min (>60); Estimated Creatinine Clearance 28.64 ml/min; Glucose 170 mg/dL (74-106); Potassium 4.7 mmol/L (3.5-5.1); Sodium Level 127 mmol/L (136-145)
--- NOTE | 2021-10-17 09:46 | NURSING ---
patient noted to have a blood clot the size of a quarter from her vagina when changing her and cleaning her up. Primary nurse notified.
[2021-10-17] MEDS: Nystatin Powder 15gm Bottle 1 APPLIC TOPICAL (11:33)
[2021-10-17] MEDS: Menthol/Lanolin/Calamine/Znox 113 GM Tube 1 APPLIC TOPICAL (11:33)
--- NOTE | 2021-10-17 13:38 | NURSING ---
Family requesting hospice for pt, will notify Dr. Livingston
[2021-10-17 14:00] VITALS: BP 98/65; PULSE 73; RESP 16; TEMP 35.2; O2SAT 97
--- NOTE | 2021-10-17 15:34 | NURSING ---
Hospice nurse to unit
--- NOTE | 2021-10-17 16:52 | NURSING ---
Dr. Livingston notified that pt was accepted to inpatient hospice. Received verbal order to change code status to DNRCC per family request. Order received.
--- NOTE | 2021-10-17 18:12 | NURSING ---
pt transferred off unit via transport to hospice.
--- NOTE | 2021-10-17 20:53 | PCM.DC.SUM ---
Providers Date of Admission: 09/03/21 Primary Care Physician: SAJAN Gamble Consultations 09/03/21 16:12 Consult: Onc/Wound/activity coordinator Routine Comment: 09/03/21 16:21 Consult: Infectious Disease Routine Consulting Provider: Landon Delacruz Reason for Consult: Left Hip Infection EMERGENT Consult: No MD Notified: Yes Date Notified: 09/03/21 Time Notified: 16:21 Method of Notification: phonecall Consult: Nephrology Routine Consulting Provider: Pamela Almeida Reason for Consult: EL EMERGENT Consult: No MD Notified: Yes Date Notified: 09/04/21 Time Notified: 14:52 Method of Notification: Verbal 09/28/21 12:47 Consult: Onc/Wound/activity coordinator Routine Comment: Reason for Consult:: Mid portion of incision has superficial dehiscence. 10/17/21 13:44 Consult: Hospice / Palliative Care Routine Consulting Provider: [facility] Reason for Consult: Declining health EMERGENT Consult: Yes MD Notified: Yes Date Notified: 10/17/21 Time Notified: 15:50 Method of Notification: Verbal Reason For Visit: INFECTED HIP JOINT Diagnosis Discharge Diagnosis (1) Debility: Status: Acute Code(s): R53.81 - Other malaise (2) Infected seroma due to and not concurrent with procedure: Status: Acute (3) Left hip prosthetic joint infection: Status: Resolved Code(s): T84.52XA - Infection and inflammatory reaction due to internal left hip prosthesis, initial encounter (4) Acute kidney injury: Status: Acute Code(s): N17.9 - Acute kidney failure, unspecified (5) HFrEF (heart failure with reduced ejection fraction): Status: Inactive Code(s): I50.20 - Unspecified systolic (congestive) heart failure (6) Coronary artery disease: Status: Acute Code(s): I25.10 - Atherosclerotic heart disease of [place] coronary artery without angina pectoris (7) Pulmonary hypertension: Status: Acute Code(s): I27.20 - Pulmonary hypertension, unspecified (8) Chronic kidney disease, stage 3b: Status: Acute Code(s): N18.32 - Chronic kidney disease, stage 3b (9) Hypothyroidism: Status: Acute Code(s): E03.9 - Hypothyroidism, unspecified (10) Gastroesophageal reflux disease: Status: Acute Code(s): K21.9 - Gastro-esophageal reflux disease without esophagitis (11) Gastritis: Status: Resolved Code(s): K29.70 - Gastritis, unspecified, without bleeding (12) Esophageal ulcer: Status: Resolved Code(s): K22.10 - Ulcer of esophagus without bleeding (13) Atrial fibrillation: Status: Acute Code(s): I48.91 - Unspecified atrial fibrillation (14) Sciatica: Status: Acute Code(s): M54.30 - Sciatica, unspecified side (15) Iron deficiency anemia: Status: Acute Code(s): D50.9 - Iron deficiency anemia, unspecified Plan 86 year old female with below past medical history hospitalized for infected left hip wound, underwent irrigation debridement 08/20/[address] Nettles, complicated by acute kidney injury, acute on chronic systolic congestive heart failure, anemia secondary to esophageal ulcer, gastritis, admitted to TCU with debility, here for rehabilitation, strengthening, intravenous antibiotics, prior to discharge home with family. Debility - PT/OT. Dysphagia - ST. Pain - Tylenol 1000mg q6h prn pain (1-5), Oxycodone 5mg q4h prn pain (6-10), Arthritis compound topical bid. Bowel - senna/colace 2 tablets bid. Adult immunization - Administer pneumonia vaccine, covid19 vaccine, flu vaccine as appropriate. DVT prophylaxis - Not necessary, on Eliquis. Atrial Fibrillation - Metoprolol 25mg q8, Eliquis 2.5mg bid. Left prosthetic hip infection - Dr. Delacruz, Cipro 500mg q18, Flagyl 500mg bid. Chronic systolic congestive heart failure - Metoprolol 25mg q8h, Lasix 80mg daily. Neuropathic pain - Gabapentin 300mg tid. Hypothyroidism - Levothyroxine 125mcg daily. Coronary artery disease s/p cabg s/p stent - Metoprolol 25mg q8, Plavix 75mg daily. GERD - Pantoprazole 40mg bid. Anxiety - Lorazepam 0.5mg q4h prn. Insomnia - Melatonin 3mg qhs. Skin irritation - Calmoseptine topical bid, Petrolatum topical bid. Tinea Corporis - Nystatin powder bid. Hospital Course Operations - (Left hip irrigation, wound debridement.) Procedures None Summary of Care Provided Minutes Spent on Discharge: 30 Hospital Course: 86 year old female with below past medical history hospitalized for infected left hip wound, underwent irrigation debridement 08/20/[address] Nettles, complicated by acute kidney injury, acute on chronic systolic congestive heart failure, anemia secondary to esophageal ulcer, gastritis, admitted to TCU with debility, here for rehabilitation, strengthening, intravenous antibiotics, prior to discharge home with family. 10/17/2021 Resident dying. Discharge to Inpatient Hospice Facility 10/17/2021 for end of life care. Weight / BMI Weight Weight: 91.852 kg Body Mass Index (BMI) 38.9 ABG / Lab / Microbiology Data Result Diagrams: 10/13/21 08:16 10/17/21 07:40 Laboratory: Laboratory Results - last 24 hr 10/17/21 07:40: Sodium 127 L, Potassium 4.7, Chloride 88 L, Carbon Dioxide 27.0, Anion Gap 12, BUN 74 H, Creatinine 2.12 H, Estim Creat Clear Calc 28.64, Est GFR (MDRD) Af Amer 29 L, Est GFR (MDRD) Non-Af 24 L, BUN/Creatinine Ratio 34.9 H, Glucose 170 H, Calcium 9.3 Microbiology: Microbiology 10/16/21 20:28 Sputum, Expectorated/Coughed Gram Stain - Final 10/15/21 05:18 Nasal Secretion SARS-CoV-2 Antigen (Rapid) - Final 10/08/21 11:15 Nasal Secretion SARS-CoV-2 Antigen (Rapid) - Final 10/01/21 Unknown Nasal Secretion SARS-CoV-2 Antigen (Rapid) - Final 09/24/21 14:27 Nasal Secretion SARS-CoV-2 Antigen (Rapid) - Final 09/17/21 20:45 Urine Catheter - [place] Urine Culture - Final Yeast, not Carla albicans 09/17/21 09:10 Nasal Secretion SARS-CoV-2 Antigen (Rapid) - Final 09/06/21 10:00 Blood Culture (Wb) - Right Forearm Blood Culture - Final No growth in 5 days. 09/06/21 10:12 Blood Culture (Wb) - Right Hand Blood Culture - Final No growth in 5 days. 09/10/21 04:18 Nasal Secretion SARS-CoV-2 Antigen (Rapid) - Final 09/06/21 12:30 Urine Catheter - [place] Urine Culture - Final Presumptive C albicans 09/06/21 10:27 Mucosa - Nose Respiratory Panel (PCR) - Final 09/06/21 10:15 Nasal Secretion SARS-CoV-2 Antigen (Rapid) - Final Radiography Diagnostic Testing: Radiology Impression Chest X-Ray 10/16/21 20:20 IMPRESSION: Pulmonary findings appear improved. Electronically Signed: Bryce Greene MD at 21:28 EDT Reading Location ID and State: [facility] / [place] , Service support , D/C Instructions Discharge Diet: No restrictions Discharge Activity: No Restrictions Weight Bearing Status: Weight bearing as tolerated Additional Instructions: Discharge to Inpatient Hospice Facility 10/17/2021 for end of life care. Please Follow Up With: French Nettles MD When: N/A. Meaningful Use Info Meaningful Use Diagnoses (Choose all that apply): None applicable Discharge Plan Admission Admit Date/Time: 09/03/21 15:10 Primary Reason for Your Visit: Debility. Attending Provider: Dave Livingston Chi Primary Care Provider: Robyn Sen Consulting Providers: Landon Delacruz ; Pamela Almeida ; Julieth Carrillo ; Wade Lorenzo ; Hilda Ledbetter ; Magaly Larson ; Isabel Ruvalcaba WEBSITE DESIGNER Instructions Additional Instructions / Restrictions: Discharge to Inpatient Hospice Facility 10/17/2021 for end of life care. Discharge Orders/Prescriptions Prescriptions: Discontinued levothyroxine 125 mcg tablet 125 mcg PO DAILY Qty: 30 oxycodone 5 mg tablet 5 mg PO Q4H PRN (Reason: Pain) geriatric [id number]-[id number] Tablet 1 tab PO DAILY apixaban 5 mg tablet 2.5 mg PO BID gabapentin 300 mg capsule 300 mg PO TID ferrous sulfate 325 mg (65 mg iron) tablet 325 mg PO BID Label Comments: TAKE 1 TABLET BY MOUTH TWICE DAILY FOR 14 DAYS metronidazole 500 mg tablet 500 mg PO TID melatonin 3 mg tablet 3 mg PO HS PRN guaifenesin 600 mg tablet extended release 12hr 600 mg PO BID nystatin 100,000 unit/gram powder 1 applic topical BID Label Comments: Apply 1 application topically to affected area(s) twice daily. mirtazapine 7.5 mg tablet 7.5 mg PO QHS bisacodyl 10 mg suppository 10 mg CO DAILY PRN hydrocortisone 2.5 % cream 1 applic topical BID PRN acetaminophen 500 mg tablet 1,000 mg PO Q6H PRN albuterol sulfate 2.5 mg /3 mL (0.083 %) solution for nebulization 2.5 mg inhalation Q2H PRN albuterol sulfate 90 mcg/actuation HFA aerosol inhaler 2 puff inhalation Q4H PRN hydroxyzine HCl 10 mg tablet 10 mg PO TID PRN metolazone 2.5 mg tablet 5 mg PO DAILY nitroglycerin 0.4 MG tablet 0.4 mg SL Q5M PRN (Reason: Chest Pain) Label Comments: CHEST PAIN sennosides-docusate sodium 1 TABLET tablet 2 tab PO BID calcium carbonate 500 MG tablet 500 mg PO BIDCM ascorbic acid (vitamin C) 500 MG tablet 500 mg PO BID Rx Instructions: Take vitamin C with the ferrous sulfate with a meal twice a day. Taking it with a meal and with vitamin C improves the absorption of iron. cholecalciferol (vitamin D3) 25 MCG tablet 1,000 unit PO DAILY psyllium husk (aspartame) 1 PACKET powder in packet 1 packet PO DAILY [place] Nasal 0.65 % Aerosol,[place] 2 spray NASAL TID PRN PRN (Reason: NASAL DRYNESS) Qty: 0 0RF pantoprazole 40 mg tablet,delayed release (DR/EC) 40 mg PO BID ertapenem 1 gram recon soln 0.5 g IV Q24 Rx Instructions: stop date 10/01/21 per ID order metoprolol tartrate 25 mg tablet 25 mg PO TID clopidogrel 75 mg tablet 75 mg PO DAILY Qty: 90 3RF Referrals / Follow Up: Jose Mason MD [Med Staff - Active Staff] - 10/07/22 2:45 pm Ralph Park NP, WEBSITE DESIGNER-C [Med Staff - Adv Practice Prof] - 11/06/21 11:30 am Robyn Sen PA [Primary Care Provider] - Disposition Disposition (needs filled in before D/C Order can be placed): Hospice in Medical Facility
== END 2021-10-17 18:20 | disposition hospice, inpatient (51) | DRG 949 ==
PROVIDERS: Internal Medicine; Internal Medicine Infectious Disease; Nurse Practitioner Adult Health; Admitting Provider Family Medicine Geriatric Medicine; PCP Physician Assistant; Visit Provider Family Medicine Geriatric Medicine
DX: T84.52XD Infection and inflammatory reaction due to internal left hip prosthesis, subsequent encounter (principal); E43 Unspecified severe protein-calorie malnutrition; E87.2 Acidosis; I13.0 Hypertensive heart and chronic kidney disease with heart failure and stage 1 through stage 4 chronic kidney disease, or unspecified chronic kidney disease; E87.1 Hypo-osmolality and hyponatremia; I50.42 Chronic combined systolic (congestive) and diastolic (congestive) heart failure; N18.4 Chronic kidney disease, stage 4 (severe); D63.1 Anemia in chronic kidney disease; I27.21 Secondary pulmonary arterial hypertension; I48.0 Paroxysmal atrial fibrillation; N18.32 Chronic kidney disease, stage 3b; G62.9 Polyneuropathy, unspecified; D50.9 Iron deficiency anemia, unspecified; E03.9 Hypothyroidism, unspecified; K44.9 Diaphragmatic hernia without obstruction or gangrene; I25.10 Atherosclerotic heart disease of native coronary artery without angina pectoris; M54.30 Sciatica, unspecified side; K21.00 Gastro-esophageal reflux disease with esophagitis, without bleeding; I25.5 Ischemic cardiomyopathy; E78.00 Pure hypercholesterolemia, unspecified; E55.9 Vitamin D deficiency, unspecified; K58.9 Irritable bowel syndrome, unspecified; Z79.01 Long term (current) use of anticoagulants; Z86.16 Personal history of COVID-19; Z79.02 Long term (current) use of antithrombotics/antiplatelets; Z79.899 Other long term (current) drug therapy; F32.A Depression, unspecified; R33.9 Retention of urine, unspecified; Z20.822 Contact with and (suspected) exposure to COVID-19; B35.4 Tinea corporis; Z23 Encounter for immunization; Z68.39 Body mass index [BMI] 39.0-39.9, adult
CPT/HCPCS: 0004A; 36415; 36600; 71046; 74230; 80048; 80069; 80202; 81001; 82040; 82306; 82533; 82607; 82728; 82746; 82803; 83540; 83550; 83605; 83735; 83880; 83930; 83935; 84300; 84484; 85025; 87040; 87070; 87086; 87088; 87205; 87426; 87633; 87641; 87811; 91300; 92507; 92526; 92610; 92611; 93005; 94640; 97110; 97116; 97162; 97166; 97530; 97535; 97802; 99251; J7030; J7050; P9047; A4216; G0463; J1940; J2916; J3490